=== PATIENT | male | born 1960 | race Two or more races ===

== ENCOUNTER 2019-08-15 14:54 | Inpatient (IN) | payer MEDICAID ==
[~2019-08-15] VITALS: Ht 170.2 cm; Wt 62.2 kg
--- NOTE | 2019-08-15 15:37 | NUR ---
ED Nurse Note: Patient was BIBA from [facility] c/o left knee pain; x ray showed inferior subluxation of the patella, taken on 08/14/19. Patient presented c/o pain 12/22, AAO x3, VSS at this time. Patient has donohue 16F, and colostomy bag.
--- NOTE | 2019-08-15 15:39 | Emergency Room Report ---
History of Present Illness General Chief Complaint: Pain Source: Patient, Medical Record Present Illness HPI Patient 59-year-old male brought in by basic ambulance for increased left-sided knee pain. Patient had no recent trauma noted. He had increased swelling to the left knee area since yesterday. Patient was brought in from [facility]. Patient had prior history of being wheelchair-bound and prior history of left lower extremity deformity. No known recent fever. Patient was given [place] 12/15/2024 prior to arrival at approximate 1 PM. He is nonambulatory. Allergies: Coded Allergies: No Known Allergies (Unverified , 08/15/19) COVID-19 Screening Contact w/high risk pt: No Recent Travel to affected area: No Experienced COVID-19 symptoms?: No COVID-19 Testing performed PAY STATION ATTENDANT: No Patient History Past Medical History: see triage record Past Surgical History: other Reviewed Nursing Documentation: PMH: Agreed; PSxH: Agreed Nursing Documentation-PMH Past Medical History: No History, Except For Hx Hypertension: Yes - Left lung atelectasis Hx COPD: Yes - Arthritis, generalized weakness Review of Systems All Other Systems: negative except mentioned in HPI Physical Exam Vital Signs Date Time Temp Pulse Resp B/P (MAP) Pulse Ox O2 Delivery O2 Flow Rate FiO2 08/15/19 15:09 97.5 67 15 112/68 (83) 95 Room Air Sp02 EP Interpretation: reviewed, normal General Appearance: normal inspection, well appearing, no apparent distress, alert, GCS 15 Head: atraumatic ENT: normal ENT inspection, hearing grossly normal, normal voice Neck: normal inspection, full range of motion, supple, no bony tend Respiratory: normal inspection, lungs clear, normal breath sounds, no respiratory distress, no retraction, no wheezing Cardiovascular #1: regular rate, rhythm, no edema Gastrointestinal: normal inspection, normal bowel sounds, non tender, soft, no guarding, no hernia Genitourinary: no CVA tenderness Musculoskeletal: normal inspection, back normal, normal range of motion Neurologic: alert, medical illustrator III-XII nml as tested, oriented x3, motor weakness, responsive, speech normal Psychiatric: normal inspection, judgement/insight normal, mood/affect normal Skin: other - significant decubitus ulcer with tunneling Medical Decision Making Diagnostic Impression: Primary Impression: Paraplegia Additional Impressions: Sacral decubitus ulcer Urinary tract infection ER Course Patient presented for left lower extremity pain. Differential diagnosis include was not limited to fracture, contusion, femur fracture among others. Because of complexity of patient's case laboratory tests and imaging studies were ordered. Patient is noted to have fever up to 103 degrees.X-ray imaging did not show any evidence of per radiology reading acute fracture. . Patient was given IV fluids as well as IV medications. Patient was discussed with Dr. Ojeda who agreed to have the patient admitted for management of urinary infection and acute febrile illness. Labs Test 08/15/19 16:01 08/15/19 18:45 08/15/19 18:50 White Blood Count 12.1 K/UL (4.8-10.8) Red Blood Count 4.15 M/UL (4.70-6.10) Hemoglobin 10.1 G/DL (14.2-18.0) Hematocrit 34.6 % (42.0-52.0) Mean Corpuscular Volume 83 FL (80-99) Mean Corpuscular Hemoglobin 24.2 PG (27.0-31.0) Mean Corpuscular Hemoglobin Concent 29.0 G/DL (32.0-36.0) Red Cell Distribution Width 17.6 % (11.6-14.8) Platelet Count 552 K/UL (150-450) Mean Platelet Volume 5.2 FL (6.5-10.1) Neutrophils (%) (Auto) 73.2 % (45.0-75.0) Lymphocytes (%) (Auto) 17.4 % (20.0-45.0) Monocytes (%) (Auto) 7.9 % (1.0-10.0) Eosinophils (%) (Auto) 0.1 % (0.0-3.0) Basophils (%) (Auto) 1.4 % (0.0-2.0) Sodium Level 135 MMOL/L (136-145) Potassium Level 4.1 MMOL/L (3.5-5.1) Chloride Level 94 MMOL/L (98-107) Carbon Dioxide Level 27 MMOL/L (21-32) Anion Gap 14 mmol/L (5-15) Blood Urea Nitrogen 12 mg/dL (7-18) Creatinine 0.9 MG/DL (0.55-1.30) Estimat Glomerular Filtration Rate > 60 mL/min (>60) Glucose Level 113 MG/DL (74-106) Calcium Level 9.5 MG/DL (8.5-10.1) Total Bilirubin 0.4 MG/DL (0.2-1.0) Aspartate Amino Transf (AST/SGOT) 15 U/L (15-37) Alanine Aminotransferase (ALT/SGPT) 14 U/L (12-78) Alkaline Phosphatase 249 U/L (46-116) Total Protein 9.5 G/DL (6.4-8.2) Albumin 2.6 G/DL (3.4-5.0) Globulin 6.9 g/dL Albumin/Globulin Ratio 0.4 (1.0-2.7) Lactic Acid Level 1.30 mmol/L (0.4-2.0) Urine Color Yellow Urine Appearance Slightly cloudy Urine pH 5 (4.5-8.0) Urine Specific [place] 1.025 (1.005-1.035) Urine Protein 3+ (NEGATIVE) Urine Glucose (UA) Negative (NEGATIVE) Urine Ketones 4+ (NEGATIVE) Urine Blood 5+ (NEGATIVE) Urine Nitrite Positive (NEGATIVE) Urine Bilirubin Negative (NEGATIVE) Urine Urobilinogen 1 MG/DL (0.0-1.0) Urine Leukocyte Esterase 3+ (NEGATIVE) Urine RBC 5-10 /HPF (0 - 0) Urine WBC Tntc /HPF (0 - 0) Urine Squamous Epithelial Cells None /LPF (NONE/OCC) Urine Bacteria Many /HPF (NONE) Last Vital Signs Date Time Temp Pulse Resp B/P (MAP) Pulse Ox O2 Delivery O2 Flow Rate FiO2 08/15/19 15:09 97.5 67 15 112/68 (83) 95 Room Air Status: unchanged Disposition: ADMITTED INPATIENT Condition: Serious Alban Conteh MD Aug 15, 2019 15:39
[2019-08-15] MEDS ORDERED: Morphine Sulfate 4mg/ml Inj (IV USE ONLY) IVP ONE (15:45)
[2019-08-15 16:11] VITALS: BP 112/68
[2019-08-15] MEDS ORDERED: LORazepam Inj 2mg/ml 1ml ONE (16:24)
[2019-08-15 16:25] LABS: BASOPHILS % (AUTO) 1.4 % (0.0-2.0); EOSINOPHILS % (AUTO) 0.1 % (0.0-3.0); HEMATOCRIT 34.6 % (42.0-52.0); HEMOGLOBIN 10.1 G/DL (14.2-18.0); LYMPHOCYTES % (AUTO) 17.4 % (20.0-45.0); MEAN CORPUSCULAR VOLUME 83 FL (80-99); MONOCYTES % (AUTO) 7.9 % (1.0-10.0); NEUTROPHILS % (AUTO) 73.2 % (45.0-75.0); PLATELET COUNT 552 K/UL (150-450); RED BLOOD COUNT 4.15 M/UL (4.70-6.10); RED CELL DISTRIBUTION WIDTH 17.6 % (11.6-14.8); WHITE BLOOD COUNT 12.1 K/UL (4.8-10.8)
[2019-08-15] MEDS ORDERED: LORazepam Inj 2mg/ml 1ml IV ONE (16:30)
--- NOTE | 2019-08-15 16:55 | Diagnostic Imaging Report ---
EXAM: X-RAY XRAY Femur 2v L CLINICAL HISTORY: Leg pain. COMPARISON: None FINDINGS: Total of 2 views of the femur were obtained. There is an old amputation defect across the mid femoral shaft. The mid to distal femur is unremarkable with normal articulation at the knee. The proximal femur including the femoral head is not visualized likely resected. There is deformity of the left hip/acetabulum likely posttraumatic. Adjacent heterotopic ossification noted. Surrounding soft tissue is normal. 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 PROBABLE OLD POSTTRAUMATIC DEFORMITY OF THE LEFT ACETABULUM WITH ADJACENT HETEROTOPIC OSSIFICATION
--- NOTE | 2019-08-15 16:55 | Diagnostic Imaging Report ---
Procedure: XRAY Chest 1v Reason for study: Chest pain Comparison films: None. FINDINGS: A single one view chest is obtained. Vascularity is normal. The lung hess are clear bilaterally. Cardiac and mediastinal silhouette are within normal limits. CP angles are sharp. The bony thorax appear unremarkable. IMPRESSION: NO ACUTE CARDIOPULMONARY DISEASE.
[2019-08-15 16:59] LABS: ANION GAP 14 mmol/L (5-15); BLOOD UREA NITROGEN 12 mg/dL (7-18); CALCIUM 9.5 MG/DL (8.5-10.1); CARBON DIOXIDE 27 MMOL/L (21-32); CHLORIDE 94 MMOL/L (98-107); CREATININE 0.9 MG/DL (0.55-1.30); POTASSIUM 4.1 MMOL/L (3.5-5.1); SODIUM 135 MMOL/L (136-145)
[2019-08-15 17:03] LABS: ALANINE AMINOTRANSFERASE 14 U/L (12-78); ALBUMIN 2.6 G/DL (3.4-5.0); ALBUMIN/GLOBULIN RATIO 0.4 (1.0-2.7); ALKALINE PHOSPHATASE 249 U/L (46-116); ASPARTATE AMINO TRANSFERASE 15 U/L (15-37); BILIRUBIN,TOTAL 0.4 MG/DL (0.2-1.0)
[2019-08-15] MEDS ORDERED: Acetaminophen 650 MG SUPP RECTAL ONE (18:15)
--- NOTE | 2019-08-15 18:16 | NUR ---
ED Nurse Note: ERMD aware stoma is protuding nd rectal temp 103.9F.
[2019-08-15] MEDS ORDERED: KLONOPIN0.5 MG ORAL (18:33)
[2019-08-15] MEDS ORDERED: DOCUSATE SODIU100 MG ORAL (18:33)
[2019-08-15] MEDS ORDERED: ACETAMINOPHEN325 M1 ORAL (18:33)
[2019-08-15] MEDS ORDERED: MIDODRINE HCL10 MG ORAL (18:34)
[2019-08-15] MEDS ORDERED: TRAMADOL HCL50 MG ORAL (18:34)
[2019-08-15] MEDS ORDERED: NORCO 10-325 T1 EACH ORAL (18:34)
--- NOTE | 2019-08-15 18:56 | NUR ---
ED Nurse Note: Lactic, blood cultures, COVID, urine sent to lab.
[2019-08-15 19:36] LABS: APPEARANCE,URINE SLIGHTLY CLOUDY; BILIRUBIN, URINE NEGATIVE (NEGATIVE); GLUCOSE, URINE (UA) NEGATIVE (NEGATIVE); KETONES,URINE 4+ (NEGATIVE); LEUKOCYTE ESTERASE ,URINE 3+ (NEGATIVE); NITRITE,URINE POSITIVE (NEGATIVE); PH,URINE 5 (4.5-8.0); PROTEIN,URINE 3+ (NEGATIVE); UROBILINOGEN,URINE 1 MG/DL (0.0-1.0)
[2019-08-15 19:37] LABS: COLOR,URINE YELLOW
[2019-08-15] MEDS ORDERED: cefTRIAXone 1 GM in NS 55 ML IVPB ONE (20:15)
--- NOTE | 2019-08-15 20:20 | NUR ---
ED Nurse Note: since patient puled out his IV line, a new IV line was established on his right forearm 20 ga.
--- NOTE | 2019-08-15 20:30 | NUR ---
ED Nurse Note: Patient was admited to [facility] due to left knee, and left hip pain 10/10. Patient was transfered to the unit via gurney, with all belongings. Patient has unstagable preassure ulsers of his sacral area, all pictures were taken, and uploaded in to the computer. Patient AAO x1, VSS at this time.
[2019-08-15 20:35] VITALS: BP 110/76
--- NOTE | 2019-08-15 20:40 | NUR ---
NURSE NOTES: Received patient from ED via gurney. Extremely agitated, in pain, screaming, combative. Transferred patient to hospital bed via 4 RN assist. IV access intact. VSS.
[2019-08-15] MEDS ORDERED: Haloperidol Decanoate (Long Acting) 50mg Inj IM ONE (21:45)
[2019-08-15] MEDS ORDERED: Hydromorphone 0.5mg/0.5ml inj IVP PRN (21:45)
[2019-08-15] MEDS ORDERED: Haloperidol 5mg/ml Inj IM SCH (21:49)
[2019-08-15] MEDS: HYDROmorphone 1mg/ml Carpuject IVP PRN (21:51)
--- NOTE | 2019-08-15 23:27 | NUR ---
NURSE NOTES: Received admission orders from Dr Ojeda, covering for Dr Marx. Orders received for bilateral soft wrist restraints as patient is combative, pulling out IV, trying to climb out of bed. Patient oriented to room, call light within reach, bed low and locked, bed alarm on.
[2019-08-16 00:23] VITALS: BP 117/77
[2019-08-16 04:00] VITALS: BP 113/75
[2019-08-16 04:30] LABS: BASOPHILS % (AUTO) 1.8 % (0.0-2.0); HEMATOCRIT 30.3 % (42.0-52.0); HEMOGLOBIN 9.8 G/DL (14.2-18.0); MEAN CORPUSCULAR VOLUME 76 FL (80-99); NEUTROPHILS % (AUTO) 77.2 % (45.0-75.0); PLATELET COUNT 435 K/UL (150-450); RED BLOOD COUNT 3.96 M/UL (4.70-6.10); RED CELL DISTRIBUTION WIDTH 15.5 % (11.6-14.8); WHITE BLOOD COUNT 14.6 K/UL (4.8-10.8)
[2019-08-16 04:53] LABS: ALANINE AMINOTRANSFERASE 15 U/L (12-78); ALBUMIN 2.5 G/DL (3.4-5.0); ALBUMIN/GLOBULIN RATIO 0.5 (1.0-2.7); ALKALINE PHOSPHATASE 217 U/L (46-116); ANION GAP 15 mmol/L (5-15); ASPARTATE AMINO TRANSFERASE 43 U/L (15-37); BILIRUBIN,TOTAL 0.5 MG/DL (0.2-1.0); BLOOD UREA NITROGEN 11 mg/dL (7-18); CALCIUM 8.7 MG/DL (8.5-10.1); CARBON DIOXIDE 23 MMOL/L (21-32); CHLORIDE 95 MMOL/L (98-107); CREATININE 0.6 MG/DL (0.55-1.30); PHOSPHORUS 2.7 MG/DL (2.5-4.9); POTASSIUM 3.9 MMOL/L (3.5-5.1); SODIUM 133 MMOL/L (136-145)
[2019-08-16] MEDS: HYDROmorphone 1mg/ml Carpuject IVP PRN ×3 (05:43→22:54)
--- NOTE | 2019-08-16 07:33 | NUR ---
NURSE NOTES: Patient awake, alert x2, confused; on room air, no sing of distress and shortness of breath; no sing of chest pain; IV Right For-Arm NS 100cc running; Left-Wrist flushes well; Marcos in place, drains yellow urine; Colostomy bag on Left Lower Quadrant; Bilateral Soft Wrist Restrain in place, warm to touch and good circulation; patient is combative, trying to get out of bed; wound culture wasn't collected by PM nurse; side rails up x2, breaks engaged, bed at lowest position, bed alarm on; call light within reach; will keep monitoring.
--- NOTE | 2019-08-16 07:42 | NUR ---
HAND-OFF: Report given to TANJA Olivas.
[2019-08-16 08:00] VITALS: BP 103/68
[2019-08-16] MEDS: Midodrine 10mg tab ORAL SCH ×3 (09:01→17:17)
[2019-08-16] MEDS: Heparin 5000 units/ml inj SUBQ SCH ×2 (09:02→20:24)
[2019-08-16] MEDS: Piperacillin/Tazobactam 3.375 GM in NS 110 ML IVPB SCH ×3 (09:03→23:55)
--- NOTE | 2019-08-16 09:21 | NUR ---
*-* INSURANCE *-* ALL AVAILABLE CLINICALS HAVE BEEN FAXED TO: [facility] REF# [id number] F: [phone]
--- NOTE | 2019-08-16 09:51 | NUR ---
CHARGE NURSE NOTE: Mg 1.6. office was called, message left.
--- NOTE | 2019-08-16 09:57 | Diagnostic Imaging Report ---
Indication: Reason For Exam: DVT Technique: Grayscale and duplex images of the left lower extremity veins Comparison: None Findings: On the left, grayscale and duplex images demonstrate no evidence of intraluminal thrombus. Normal phasic Doppler waveforms, demonstrating normal augmentation response and no evidence of valvular insufficiency. Greater saphenous vein(s) and tibial veins are patent. Normal compressibility. Impression: Negative for evidence of lower extremity deep venous thrombosis on the left
--- NOTE | 2019-08-16 10:55 | History and Physical ---
History of Present Illness General Date patient seen: Aug 16, 2019 Reason for Hospitalization: Pain Present Illness HPI 59-year-old male from [facility] sent to the emergency department for left knee pain. Upon arrival to the ER patient was found to be febrile above 101 and Lab are consistent with UTI. X-ray of the left leg revealed an old femoral amputation versus traumatic fracture without any acute changes. Clinically a leg appeared chronically to formed without evidence of infection. Patient was started and perky on antibiotics and will be admitted for further management. Allergies: Coded Allergies: No Known Allergies (Unverified , 08/15/19) COVID-19 Screening Contact w/high risk pt: No Recent Travel to affected area: No Experienced COVID-19 symptoms?: Yes COVID-19 symptoms experienced: Fever (T>100.4F or >38C) Medication History Scheduled Clonazepam* (Klonopin*), 0.5 MG ORAL TID, (Reported) Docusate Sodium* (Docusate Sodium*), 100 MG ORAL TWICE A DAY, (Reported) Midodrine* (Proamatine*), 10 MG ORAL THREE TIMES A DAY, (Reported) Scheduled PRN Acetaminophen* (Acetaminophen 325MG Tablet*), 650 MG ORAL Q6H PRN for For Pain, (Reported) Hydrocodone Bit/Acetaminophen 10-325* ([place] 10-325*), 1 TAB ORAL Q6H PRN for For Pain, (Reported) Tramadol Hcl* (Ultram*), 50 MG ORAL Q6H PRN for For Pain, (Reported) Patient History Healthcare decision maker N Resuscitation status Advanced Directive on File Review of Systems ROS Narrative Review of systems was limited due to altered mental status Physical Exam General Appearance: no apparent distress, alert, confused HEENT: normocephalic, atraumatic, PERRL, EOMI, supple, no JVD Neck: normal alignment Respiratory/Chest: lungs clear, no respiratory distress, no accessory muscle use Cardiovascular/Chest: normal rate, no gallop/murmur, no JVD Abdomen: non tender, soft, no organomegaly Extremities: other - Atrophic LLE Last 24 Hour Vital Signs Date Time Temp Pulse Resp B/P (MAP) Pulse Ox O2 Delivery O2 Flow Rate FiO2 08/16/19 09:00 Room Air 08/16/19 08:00 98.0 98 16 103/68 (80) 96 6/3/20 06:13 101.0 08/16/19 04:01 101.0 08/16/19 04:00 101.7 75 21 113/75 (88) 100 08/16/19 00:23 100.5 82 22 117/77 (90) 100 08/15/19 23:30 Room Air 08/15/19 20:35 101.2 79 22 110/76 (87) 99 08/15/19 20:30 100.6 15 112/68 95 Room Air 08/15/19 18:53 101.9 08/15/19 16:34 97.5 08/15/19 16:11 97.5 15 112/68 95 Room Air 08/15/19 15:09 97.5 67 15 112/68 (83) 95 Room Air Intake and Output 08/15/19 08/16/19 19:00 07:00 Intake Total 1 ml 950 ml Output Total 505 ml Balance 1 ml 445 ml Intake Oral 1 ml 250 ml IV Total 700 ml Output Urine Total 450 ml Other 55 ml Laboratory Tests Test 08/15/19 16:01 08/15/19 18:45 08/15/19 18:50 08/16/19 04:00 White Blood Count 12.1 K/UL (4.8-10.8) H 14.6 K/UL (4.8-10.8) H Red Blood Count 4.15 M/UL (4.70-6.10) L 3.96 M/UL (4.70-6.10) L Hemoglobin 10.1 G/DL (14.2-18.0) L 9.8 G/DL (14.2-18.0) L Hematocrit 34.6 % (42.0-52.0) L 30.3 % (42.0-52.0) L Mean Corpuscular Volume 83 FL (80-99) 76 FL (80-99) #L Mean Corpuscular Hemoglobin 24.2 PG (27.0-31.0) L 24.8 PG (27.0-31.0) L Mean Corpuscular Hemoglobin Concent 29.0 G/DL (32.0-36.0) L 32.5 G/DL (32.0-36.0) Red Cell Distribution Width 17.6 % (11.6-14.8) H 15.5 % (11.6-14.8) H Platelet Count 552 K/UL (150-450) H 435 K/UL (150-450) Mean Platelet Volume 5.2 FL (6.5-10.1) L 4.3 FL (6.5-10.1) L Neutrophils (%) (Auto) 73.2 % (45.0-75.0) 77.2 % (45.0-75.0) H Lymphocytes (%) (Auto) 17.4 % (20.0-45.0) L 11.0 % (20.0-45.0) L Monocytes (%) (Auto) 7.9 % (1.0-10.0) 10.0 % (1.0-10.0) Eosinophils (%) (Auto) 0.1 % (0.0-3.0) 0.0 % (0.0-3.0) Basophils (%) (Auto) 1.4 % (0.0-2.0) 1.8 % (0.0-2.0) Sodium Level 135 MMOL/L (136-145) L 133 MMOL/L (136-145) L Potassium Level 4.1 MMOL/L (3.5-5.1) 3.9 MMOL/L (3.5-5.1) Chloride Level 94 MMOL/L (98-107) L 95 MMOL/L (98-107) L Carbon Dioxide Level 27 MMOL/L (21-32) 23 MMOL/L (21-32) Anion Gap 14 mmol/L (5-15) 15 mmol/L (5-15) Blood Urea Nitrogen 12 mg/dL (7-18) 11 mg/dL (7-18) Creatinine 0.9 MG/DL (0.55-1.30) 0.6 MG/DL (0.55-1.30) Estimat Glomerular Filtration Rate > 60 mL/min (>60) > 60 mL/min (>60) Glucose Level 113 MG/DL (74-106) H 108 MG/DL (74-106) H Calcium Level 9.5 MG/DL (8.5-10.1) 8.7 MG/DL (8.5-10.1) Total Bilirubin 0.4 MG/DL (0.2-1.0) 0.5 MG/DL (0.2-1.0) Aspartate Amino Transf (AST/SGOT) 15 U/L (15-37) 43 U/L (15-37) H Alanine Aminotransferase (ALT/SGPT) 14 U/L (12-78) 15 U/L (12-78) Alkaline Phosphatase 249 U/L (46-116) H 217 U/L (46-116) H Total Protein 9.5 G/DL (6.4-8.2) H 7.9 G/DL (6.4-8.2) Albumin 2.6 G/DL (3.4-5.0) L 2.5 G/DL (3.4-5.0) L Globulin 6.9 g/dL 5.4 g/dL Albumin/Globulin Ratio 0.4 (1.0-2.7) L 0.5 (1.0-2.7) L Lactic Acid Level 1.30 mmol/L (0.4-2.0) Urine Color Yellow Urine Appearance Slightly cloudy Urine pH 5 (4.5-8.0) Urine Specific [place] 1.025 (1.005-1.035) Urine Protein 3+ (NEGATIVE) H Urine Glucose (UA) Negative (NEGATIVE) Urine Ketones 4+ (NEGATIVE) H Urine Blood 5+ (NEGATIVE) H Urine Nitrite Positive (NEGATIVE) H Urine Bilirubin Negative (NEGATIVE) Urine Urobilinogen 1 MG/DL (0.0-1.0) H Urine Leukocyte Esterase 3+ (NEGATIVE) H Urine RBC 5-10 /HPF (0 - 0) H Urine WBC Tntc /HPF (0 - 0) H Urine Squamous Epithelial Cells None /LPF (NONE/OCC) Urine Bacteria Many /HPF (NONE) H Phosphorus Level 2.7 MG/DL (2.5-4.9) Magnesium Level 1.6 MG/DL (1.8-2.4) L Microbiology Date/Time Source Procedure Growth Status 08/15/19 18:50 Urine,Clean Catch Urine Culture - Preliminary Resulted 08/15/19 18:50 Rectum Received Height (Feet): 5 Height (Inches): 7.00 Weight (Pounds): 139 Medications Current Medications Medications (Trade) Dose Ordered Sig/Mya Route PRN Reason Start Time Stop Time Status Last Admin Dose Admin Acetaminophen (Tylenol) 650 mg Q6H PRN ORAL Temp >100.5 08/16/19 00:45 09/15/19 00:44 08/16/19 03:31 Clonazepam (KlonoPIN) 0.5 mg TID ORAL 08/16/19 09:00 08/23/19 08:59 08/16/19 09:00 Heparin Sodium (Porcine) (Heparin 5000 units/ml) 5,000 units EVERY 12 HOURS SUBQ 08/16/19 09:00 09/30/19 08:59 08/16/19 09:02 Hydromorphone HCl (Dilaudid) 0.5 mg Q6H PRN IVP moderate pain 08/15/19 21:45 08/22/19 21:44 Hydromorphone HCl (Dilaudid) 1 mg EVERY 4 HOURS PRN IVP Severe Pain (Pain Scale 7-10) 08/16/19 10:30 08/22/19 21:44 UNV Magnesium Sulfate 100 ml @ 100 mls/hr Q1H IVPB 08/16/19 10:30 08/16/19 12:29 UNV Midodrine (Pro-Amatine) 10 mg THREE TIMES A DAY ORAL 08/16/19 09:00 11/14/19 08:59 08/16/19 09:01 Piperacillin Sod/ Tazobactam Sod 3.375 gm/Sodium Chloride 110 ml @ 27.5 mls/hr Q8H IVPB 08/16/19 08:00 08/23/19 07:59 08/16/19 09:03 Sodium Chloride 1,000 ml @ 100 mls/hr Q10H IV 08/15/19 21:45 09/14/19 21:44 08/16/19 09:03 Vancomycin HCl (Vanco pharmacy to dose) 1 ea DAILY PRN MISC Per rx protocol 08/16/19 08:00 09/15/19 07:59 Vancomycin HCl 1 gm/Dextrose 275 ml @ 183.708 mls/hr Q8H IVPB 08/16/19 12:00 08/21/19 11:59 Assessment/Plan Assessment/Plan: 59-year-old male with multiple medical problems admitted with sepsis due to urinary tract infection and AMS. #UTI #Sepsis due to a UTI (fever, leukocytosis) - admit to in pt - ID consult, Dr Freeman - c/w vanco & zosyn (08/15 - ) - follow cx - trend chem, cbc - probiotic - supportive care - IVF - c/w home midodrine #Hyponatremia #Hypomagnesemia - replete prn - hypovolemic - IVF - nephro consult, Dr Georges #Anemia, acute on chonic #Suspect OSMIN - suspect dilutional, no e/o active bleed - Fe Panel - trend cbc - transfuse for Hb < 7 #Left leg pain #Hx Left leg amputation #Paraplegia - XR LLE -> unremarkable - ctm - pain control #Sacral decubitus ulcer, POA - offloading per rn protocl q2h - surgery consult for wound mgt/debridement if necessary #Toxic metabolic encephalopathy - tx as above - delirium precautions FENPPX DVTPPX: SCD, HSQ GI PPX: na Fluids: mIVF x 2L Diet: regular Lines: PT/OT: deferred Code status: Full Dispo: SNF ([facility]) Reason for Continued Hospitalization: sepsis due to UTI 70 minutes spent on this encounter. Discussed with RN at bedside and consultants named above. 38 spent on counseling and care coordination. 17 min was spent on advanced care planning which included discussion of both acute and chronic medicall issues, code status, goals of care and advanced directives & POLST. POLST to be completed before discharge. In addition to the usual care above I spent additional time reviewing records in the EMR including physician documentation, nursing documentation, laboratory results, imaging and other clinical documentation. Time for this activity started at 9pm and ended at 945pm. Time of note may not reflect time patient was seen. Rajesh Solis MD Aug 16, 2019 10:55
--- NOTE | 2019-08-16 11:04 | NUR ---
CASE MANAGEMENT:INITIAL REVIEW 59 YR OLD MALE BIBA FROM [facility] 08/15/19 CC;PAIN SI;LEFT PROXIMAL FEMUR FRACTURE 101.9 79 15 112/68 95% ON RA WBC 12.1 NA 135 CL 94 ALK PHOS 249 ALB 2.6 UA+ PROTEIN, KETONES, BLOOD, NITRITE, UROBILI, LEUKOCYTE, RBC, WBC, BACTERIA FEMUR X-RAY ~ APPARENT OLD AMPUTATION DEFECT OF THE PROXIMAL LEFT FEMUR FROM FEMORAL HEAD TO THE MID SHAFT. PROBABLE OLD POSTTRAUMATIC DEFORMITY OF THE LEFT ACETABULUM WITH ADJACENT HETEROTOPIC OSSIFICATION. CXR ~ NO ACUTE CARDIOPULMONARY DISEASE VENOUS DUPLEX ~ Negative for evidence of lower extremity deep venous thrombosis on the left IS;MORPHINE IV ONCE ATIVAN IV ONCE IVF NS APAP RECTAL ONCE ROCEPHIN IV ONCE ADMITTED TO MED SURG @ 2058 ON 08/15/19 MED SURG STATUS DCP;FROM [facility] CASE MANAGEMENT:REVIEW (CONCURRENT REVIEW) 08/16/19 SI;SEPSIS. UTI. HYPONATREMIA. SACRAL DECUB. LLE PAIN. 101.7 98 22 103/68 96% ON RA WBC 14.6 H/H 9.8/30.3 NA 133 CL 95 MG 1.6 AST 43 ALK PHOS 217 ALB 2.5 IS;VANCOMYCIN IV Q8 HRS ZOSYN IV Q8 HRS IVF NS @ 100 ML/HR MAG SULFATE IV ONCE KLONOPIN PO TID HEPARIN SUBQ Q12 HRS MIDODRINE PO TID MED SURG STATUS DCP; FROM [facility]
[2019-08-16 12:00] VITALS: BP 114/61
--- NOTE | 2019-08-16 12:53 | Consultation ---
History of Present Illness General Chief Complaint: Pain Present Illness HPI 59-year-old male from [facility] sent to the emergency department for left knee pain. Upon arrival to the ER patient was found to be febrile above 101 and Lab are consistent with UTI. X-ray of the left leg revealed an old femoral amputation versus traumatic fracture without any acute changes. Clinically a leg appeared chronically to formed without evidence of infection. Patient was started and perky on antibiotics and will be admitted for further management. Allergies: Coded Allergies: No Known Allergies (Unverified , 08/15/19) Medication History Scheduled Clonazepam* (Klonopin*), 0.5 MG ORAL TID, (Reported) Docusate Sodium* (Docusate Sodium*), 100 MG ORAL TWICE A DAY, (Reported) Midodrine* (Proamatine*), 10 MG ORAL THREE TIMES A DAY, (Reported) Scheduled PRN Acetaminophen* (Acetaminophen 325MG Tablet*), 650 MG ORAL Q6H PRN for For Pain, (Reported) Hydrocodone Bit/Acetaminophen 10-325* ([place] 10-325*), 1 TAB ORAL Q6H PRN for For Pain, (Reported) Tramadol Hcl* (Ultram*), 50 MG ORAL Q6H PRN for For Pain, (Reported) Patient History Healthcare decision maker N Resuscitation status Advanced Directive on File Review of Systems All Other Systems: negative except mentioned in HPI Physical Exam General Appearance: WD/WN, no apparent distress Lines, tubes and drains: peripheral HEENT: normocephalic, atraumatic Neck: non-tender, normal alignment Respiratory/Chest: chest wall non-tender, lungs clear Cardiovascular/Chest: normal peripheral pulses, normal rate, regular rhythm Abdomen: normal bowel sounds, non tender, soft Extremities: other - + Left leg abnormality Neurologic: alert Last 24 Hour Vital Signs Date Time Temp Pulse Resp B/P (MAP) Pulse Ox O2 Delivery O2 Flow Rate FiO2 08/16/19 12:00 101.7 63 17 114/61 (78) 97 08/16/19 11:35 97.7 08/16/19 09:00 Room Air 08/16/19 08:00 98.0 98 16 103/68 (80) 96 08/16/19 06:13 101.0 08/16/19 04:00 101.7 75 21 113/75 (88) 100 08/16/19 00:23 100.5 82 22 117/77 (90) 100 08/15/19 23:30 Room Air 08/15/19 20:35 101.2 79 22 110/76 (87) 99 08/15/19 20:30 100.6 15 112/68 95 Room Air 08/15/19 18:53 101.9 08/15/19 16:34 97.5 08/15/19 16:11 97.5 15 112/68 95 Room Air 08/15/19 15:09 97.5 67 15 112/68 (83) 95 Room Air Intake and Output 08/15/19 08/16/19 19:00 07:00 Intake Total 1 ml 1050 ml Output Total 505 ml Balance 1 ml 545 ml Intake Oral 1 ml 250 ml IV Total 800 ml Output Urine Total 450 ml Other 55 ml Laboratory Tests Test 08/15/19 16:01 08/15/19 18:45 08/15/19 18:50 08/16/19 04:00 White Blood Count 12.1 K/UL (4.8-10.8) H 14.6 K/UL (4.8-10.8) H Red Blood Count 4.15 M/UL (4.70-6.10) L 3.96 M/UL (4.70-6.10) L Hemoglobin 10.1 G/DL (14.2-18.0) L 9.8 G/DL (14.2-18.0) L Hematocrit 34.6 % (42.0-52.0) L 30.3 % (42.0-52.0) L Mean Corpuscular Volume 83 FL (80-99) 76 FL (80-99) #L Mean Corpuscular Hemoglobin 24.2 PG (27.0-31.0) L 24.8 PG (27.0-31.0) L Mean Corpuscular Hemoglobin Concent 29.0 G/DL (32.0-36.0) L 32.5 G/DL (32.0-36.0) Red Cell Distribution Width 17.6 % (11.6-14.8) H 15.5 % (11.6-14.8) H Platelet Count 552 K/UL (150-450) H 435 K/UL (150-450) Mean Platelet Volume 5.2 FL (6.5-10.1) L 4.3 FL (6.5-10.1) L Neutrophils (%) (Auto) 73.2 % (45.0-75.0) 77.2 % (45.0-75.0) H Lymphocytes (%) (Auto) 17.4 % (20.0-45.0) L 11.0 % (20.0-45.0) L Monocytes (%) (Auto) 7.9 % (1.0-10.0) 10.0 % (1.0-10.0) Eosinophils (%) (Auto) 0.1 % (0.0-3.0) 0.0 % (0.0-3.0) Basophils (%) (Auto) 1.4 % (0.0-2.0) 1.8 % (0.0-2.0) Sodium Level 135 MMOL/L (136-145) L 133 MMOL/L (136-145) L Potassium Level 4.1 MMOL/L (3.5-5.1) 3.9 MMOL/L (3.5-5.1) Chloride Level 94 MMOL/L (98-107) L 95 MMOL/L (98-107) L Carbon Dioxide Level 27 MMOL/L (21-32) 23 MMOL/L (21-32) Anion Gap 14 mmol/L (5-15) 15 mmol/L (5-15) Blood Urea Nitrogen 12 mg/dL (7-18) 11 mg/dL (7-18) Creatinine 0.9 MG/DL (0.55-1.30) 0.6 MG/DL (0.55-1.30) Estimat Glomerular Filtration Rate > 60 mL/min (>60) > 60 mL/min (>60) Glucose Level 113 MG/DL (74-106) H 108 MG/DL (74-106) H Calcium Level 9.5 MG/DL (8.5-10.1) 8.7 MG/DL (8.5-10.1) Total Bilirubin 0.4 MG/DL (0.2-1.0) 0.5 MG/DL (0.2-1.0) Aspartate Amino Transf (AST/SGOT) 15 U/L (15-37) 43 U/L (15-37) H Alanine Aminotransferase (ALT/SGPT) 14 U/L (12-78) 15 U/L (12-78) Alkaline Phosphatase 249 U/L (46-116) H 217 U/L (46-116) H Total Protein 9.5 G/DL (6.4-8.2) H 7.9 G/DL (6.4-8.2) Albumin 2.6 G/DL (3.4-5.0) L 2.5 G/DL (3.4-5.0) L Globulin 6.9 g/dL 5.4 g/dL Albumin/Globulin Ratio 0.4 (1.0-2.7) L 0.5 (1.0-2.7) L Lactic Acid Level 1.30 mmol/L (0.4-2.0) Urine Color Yellow Urine Appearance Slightly cloudy Urine pH 5 (4.5-8.0) Urine Specific [place] 1.025 (1.005-1.035) Urine Protein 3+ (NEGATIVE) H Urine Glucose (UA) Negative (NEGATIVE) Urine Ketones 4+ (NEGATIVE) H Urine Blood 5+ (NEGATIVE) H Urine Nitrite Positive (NEGATIVE) H Urine Bilirubin Negative (NEGATIVE) Urine Urobilinogen 1 MG/DL (0.0-1.0) H Urine Leukocyte Esterase 3+ (NEGATIVE) H Urine RBC 5-10 /HPF (0 - 0) H Urine WBC Tntc /HPF (0 - 0) H Urine Squamous Epithelial Cells None /LPF (NONE/OCC) Urine Bacteria Many /HPF (NONE) H Phosphorus Level 2.7 MG/DL (2.5-4.9) Magnesium Level 1.6 MG/DL (1.8-2.4) L Microbiology Date/Time Source Procedure Growth Status 08/15/19 18:50 Urine,Clean Catch Urine Culture - Preliminary Resulted 08/15/19 18:50 Rectum Received Height (Feet): 5 Height (Inches): 7.00 Weight (Pounds): 139 Medications Current Medications Medications (Trade) Dose Ordered Sig/Mya Route PRN Reason Start Time Stop Time Status Last Admin Dose Admin Acetaminophen (Tylenol) 650 mg Q6H PRN ORAL Temp >100.5 08/16/19 00:45 09/15/19 00:44 08/16/19 11:05 Clonazepam (KlonoPIN) 0.5 mg TID ORAL 08/16/19 09:00 08/23/19 08:59 08/16/19 09:00 Heparin Sodium (Porcine) (Heparin 5000 units/ml) 5,000 units EVERY 12 HOURS SUBQ 08/16/19 09:00 09/30/19 08:59 08/16/19 09:02 Hydromorphone HCl (Dilaudid) 0.5 mg Q6H PRN IVP moderate pain 08/15/19 21:45 08/22/19 21:44 Hydromorphone HCl (Dilaudid) 1 mg Q4H PRN IVP Severe Pain (Pain Scale 7-10) 08/16/19 10:30 08/23/19 10:29 Magnesium Sulfate 100 ml @ 100 mls/hr Q1H IVPB 08/16/19 11:00 08/16/19 12:59 08/16/19 12:13 Midodrine (Pro-Amatine) 10 mg THREE TIMES A DAY ORAL 08/16/19 09:00 11/14/19 08:59 08/16/19 09:01 Piperacillin Sod/ Tazobactam Sod 3.375 gm/Sodium Chloride 110 ml @ 27.5 mls/hr Q8H IVPB 08/16/19 08:00 08/23/19 07:59 08/16/19 09:03 Sodium Chloride 1,000 ml @ 100 mls/hr Q10H IV 08/15/19 21:45 09/14/19 21:44 08/16/19 09:03 Sodium Chloride 1,000 ml @ 100 mls/hr Q10H IV 08/16/19 12:00 08/17/19 07:59 08/16/19 12:14 Vancomycin HCl (Vanco pharmacy to dose) 1 ea DAILY PRN MISC Per rx protocol 08/16/19 08:00 09/15/19 07:59 Vancomycin HCl 1 gm/Dextrose 275 ml @ 183.708 mls/hr Q8H IVPB 08/16/19 12:00 08/21/19 11:59 Assessment/Plan Diagnosis [place] I: #sepsis due to UTI #Hyponatremia #hypomagnesemia #history for femur amputation #Left leg pain #Hx Left leg amputation #Paraplegia #Sacral decub ulcer #anemia - continue NS at 100cchr - replete mag - antibiotics per D - follow urine cx - monitor mag, phos, BMP daily - surgery eval - pain control - monitor WBC - monitor UOP - avoid nephrotoxins Time spent 70 minutes, greater than 50% on care coordination and counseling Sienna Georges M.D. Aug 16, 2019 12:53
[2019-08-16] MEDS: Vancomycin 1gm/D5W 275ml IVPB SCH ×4 (13:14→20:14)
[2019-08-16 16:00] VITALS: BP 112/64
--- NOTE | 2019-08-16 16:41 | NUR ---
NURSE NOTES: Patient's matter changed to P200 mattress;
--- NOTE | 2019-08-16 18:40 | NUR ---
NURSE NOTES: Wound culture collected from Sacral and R-Ischemia;
--- NOTE | 2019-08-16 18:45 | Infectious Diseases Prog Note ---
Assessment/Plan Assessment/Plan Full consul dictated: A) 1) uti, pyelonephritis, sepsis, sacral wound infection, leukocytosis, fevers 2) pmh noted 3) allergies - nkda P) 1) zosyn and vancomycin 2) check cultures, labs and chest x-ray 3) surgery recs on wound management 4) thank you Subjective Allergies: Coded Allergies: No Known Allergies (Unverified , 08/15/19) Objective Vital Signs Last 24 Hour Vital Signs Date Time Temp Pulse Resp B/P (MAP) Pulse Ox O2 Delivery O2 Flow Rate FiO2 08/16/19 16:00 97.7 58 18 112/64 (80) 97 08/16/19 12:00 101.7 63 17 114/61 (78) 97 08/16/19 11:35 97.7 08/16/19 09:00 Room Air 08/16/19 08:00 98.0 98 16 103/68 (80) 96 08/16/19 06:13 101.0 08/16/19 04:00 101.7 75 21 113/75 (88) 100 08/16/19 00:23 100.5 82 22 117/77 (90) 100 08/15/19 23:30 Room Air 08/15/19 20:35 101.2 79 22 110/76 (87) 99 08/15/19 20:30 100.6 15 112/68 95 Room Air 08/15/19 18:53 101.9 Height (Feet): 5 Height (Inches): 7.00 Weight (Pounds): 139 Microbiology Date/Time Source Procedure Growth Status 08/15/19 18:50 Urine,Clean Catch Urine Culture - Preliminary Resulted 08/15/19 18:50 Rectum Received Laboratory Tests Test 08/15/19 18:45 08/15/19 18:50 08/16/19 04:00 Lactic Acid Level 1.30 mmol/L (0.4-2.0) Urine Color Yellow Urine Appearance Slightly cloudy Urine pH 5 (4.5-8.0) Urine Specific [place] 1.025 (1.005-1.035) Urine Protein 3+ (NEGATIVE) H Urine Glucose (UA) Negative (NEGATIVE) Urine Ketones 4+ (NEGATIVE) H Urine Blood 5+ (NEGATIVE) H Urine Nitrite Positive (NEGATIVE) H Urine Bilirubin Negative (NEGATIVE) Urine Urobilinogen 1 MG/DL (0.0-1.0) H Urine Leukocyte Esterase 3+ (NEGATIVE) H Urine RBC 5-10 /HPF (0 - 0) H Urine WBC Tntc /HPF (0 - 0) H Urine Squamous Epithelial Cells None /LPF (NONE/OCC) Urine Bacteria Many /HPF (NONE) H White Blood Count 14.6 K/UL (4.8-10.8) H Red Blood Count 3.96 M/UL (4.70-6.10) L Hemoglobin 9.8 G/DL (14.2-18.0) L Hematocrit 30.3 % (42.0-52.0) L Mean Corpuscular Volume 76 FL (80-99) #L Mean Corpuscular Hemoglobin 24.8 PG (27.0-31.0) L Mean Corpuscular Hemoglobin Concent 32.5 G/DL (32.0-36.0) Red Cell Distribution Width 15.5 % (11.6-14.8) H Platelet Count 435 K/UL (150-450) Mean Platelet Volume 4.3 FL (6.5-10.1) L Neutrophils (%) (Auto) 77.2 % (45.0-75.0) H Lymphocytes (%) (Auto) 11.0 % (20.0-45.0) L Monocytes (%) (Auto) 10.0 % (1.0-10.0) Eosinophils (%) (Auto) 0.0 % (0.0-3.0) Basophils (%) (Auto) 1.8 % (0.0-2.0) Sodium Level 133 MMOL/L (136-145) L Potassium Level 3.9 MMOL/L (3.5-5.1) Chloride Level 95 MMOL/L (98-107) L Carbon Dioxide Level 23 MMOL/L (21-32) Anion Gap 15 mmol/L (5-15) Blood Urea Nitrogen 11 mg/dL (7-18) Creatinine 0.6 MG/DL (0.55-1.30) Estimat Glomerular Filtration Rate > 60 mL/min (>60) Glucose Level 108 MG/DL (74-106) H Calcium Level 8.7 MG/DL (8.5-10.1) Phosphorus Level 2.7 MG/DL (2.5-4.9) Magnesium Level 1.6 MG/DL (1.8-2.4) L Total Bilirubin 0.5 MG/DL (0.2-1.0) Aspartate Amino Transf (AST/SGOT) 43 U/L (15-37) H Alanine Aminotransferase (ALT/SGPT) 15 U/L (12-78) Alkaline Phosphatase 217 U/L (46-116) H Total Protein 7.9 G/DL (6.4-8.2) Albumin 2.5 G/DL (3.4-5.0) L Globulin 5.4 g/dL Albumin/Globulin Ratio 0.5 (1.0-2.7) L Current Medications Medications (Trade) Dose Ordered Sig/Mya Route PRN Reason Start Time Stop Time Status Last Admin Dose Admin Acetaminophen (Tylenol) 650 mg Q6H PRN ORAL Temp >100.5 08/16/19 00:45 09/15/19 00:44 08/16/19 11:05 Clonazepam (KlonoPIN) 0.5 mg TID ORAL 08/16/19 09:00 08/23/19 08:59 08/16/19 17:17 Heparin Sodium (Porcine) (Heparin 5000 units/ml) 5,000 units EVERY 12 HOURS SUBQ 08/16/19 09:00 09/30/19 08:59 08/16/19 09:02 Hydromorphone HCl (Dilaudid) 0.5 mg Q6H PRN IVP moderate pain 08/15/19 21:45 08/22/19 21:44 Hydromorphone HCl (Dilaudid) 1 mg Q4H PRN IVP Severe Pain (Pain Scale 7-10) 08/16/19 10:30 08/23/19 10:29 08/16/19 18:26 Midodrine (Pro-Amatine) 10 mg THREE TIMES A DAY ORAL 08/16/19 09:00 11/14/19 08:59 08/16/19 17:17 Piperacillin Sod/ Tazobactam Sod 3.375 gm/Sodium Chloride 110 ml @ 27.5 mls/hr Q8H IVPB 08/16/19 08:00 08/23/19 07:59 08/16/19 17:18 Sodium Chloride 1,000 ml @ 100 mls/hr Q10H IV 08/15/19 21:45 09/14/19 21:44 08/16/19 17:17 Sodium Chloride 1,000 ml @ 100 mls/hr Q10H IV 08/16/19 12:00 08/17/19 07:59 08/16/19 12:14 Vancomycin HCl (Vanco pharmacy to dose) 1 ea DAILY PRN MISC Per rx protocol 08/16/19 08:00 09/15/19 07:59 Vancomycin HCl 1 gm/Dextrose 275 ml @ 183.708 mls/hr Q8H IVPB 08/16/19 12:00 08/21/19 11:59 08/16/19 13:14 Sharif Painting MD Aug 16, 2019 18:45
--- NOTE | 2019-08-16 19:04 | NUR ---
NURSE NOTES: Wound care provided by wound care nurse and primary nurse;
--- NOTE | 2019-08-16 19:06 | NUR ---
NURSE NOTES:WOUND CARE NOTES:Pt presented on admission with multiple Pressure Injuries, Bilat foot drop. Historical scar noted to L Hip Large Full Thickness Pressure Injury Buttocks with undermining and tunneling. Wound has irregular borders extends from Sacrum to L ischium and base of Scrotum,laterally from Outer R to Outer L gluteus.(L)18.9cm x (W)18.5cm x (D)3.7cm, undermining clockwise 10-3 by 5.9cm @3o'clock,Tunneling clockwise @6o'clock by 2.7cm.Scattered Biofilm with [place] granulation at base of wound ,bone is palpable in tunneled and undermined areas. At distal base of wound, at scrotum is an area of slough-size of Quarter. Small amt non-odorous serous exudate.Periwound is pink with scattered brownish skin tone.( Full thickness Pressure injury R Ischium(L)9.5cm x (W)9.7cm x (D)4.2cm, Tunneling clockwise into perineum at 7o'clock by 5.3cm. Base of wound has scattered slough. Bone is palpable . Small amt seropurulent exudate. Mild odor which resolved post cleansing of wound.Erythema noted along edges. Additional area of slough noted periwound along borders clockwise @3-4o'clock. Non-Blanching erythema noted to Protruding bony prominence L Hip. Dry, loosening eschar lateral L tibia. (L)1.1cm x (W)0.4cm.[place] epithelial along borders. Stable dry, brown eschar noted to medial L tibia(L)4.3cm x (W)1cm. Stable dry eschar noted to Plantar L Heel. (L)4.5cm x (W)2cm. Periwound is boggy but blanchable.Historical scar alson noted periwound. Full thickness pressure injury Plantar R Heel (L)1.2cm x (W)2.5cm x (D)0.2cm. 80% pink granulation,20% slough at base of wound. Edges are macerated. Small amt non-odorous serous exudate. Periwound is boggy but blanchable. Tx.Plan: Cleanse wound Buttocks with Saline. Loosely Pack wound including undermined areas with Hydrogel impregnated Kerlix.Apply Moisture Barrier Paste along borders. Cover with ABD Pads and secure with Tegaderm Daily and prn. Cleanse R Ischial Wound with Saline. Loosely pack with Hydrogel Impregnated Kerlix. Apply Moisture Barrier Periwound. Cover with ABD Pad and secure with Tegaderm Daily and prn. Apply Cavilon Skin Barrier to L Hip Bony Protrusion (Do Not Rub/Massage area). Cover with Optifoam drsg. Change every 3 days and prn. Apply Betadine to Medial and lateral L Tibial wounds. Cover with Optifoam drsg every 3 days and prn. Apply Betadine to Plantar L Heel wound. Cover with Optifoam drsg. Change every 3 days and prn. Apply Betadine to Plantar R heel wound. Cover with Optifoam drsg every 3 days and prn. Reposition at least every 2hours or as tolerated. Place pillow between knees. Off-Load Heels with Pillow. APM/SUMI Mattress overlay.
--- NOTE | 2019-08-16 19:20 | NUR ---
NURSE NOTES: Received report from samanta guido.patient on bed, awake, verbally responsive. calm. denies any pain or discomfort. room air. no sob. with iv line on right forearm running ns at 100 and left wrist running zosyn. with donohue catheter, draining well. noted with left lower quadrant colostomy. per kasandra, they did the treatments on the wounds and she drained the colostomy bag". with bilateral soft wrist restraints. no injury noted. reiterated to call and ask for assistance. call light and light button within easy reach. bed locked and in lowest position. bed alarm on. will continue plan of care.
[2019-08-16 20:00] VITALS: BP 100/60
--- NOTE | 2019-08-16 21:00 | Consultation ---
History of Present Illness General Date patient seen: Aug 16, 2019 Reason for Hospitalization: Pain Present Illness HPI This is a 59-year-old male who presents [facility] for left knee pain. States been ongoing for some time and feels uncomfortable. Surgery called to evaluate and assist with care. Patient seen, patient evaluated, chart reviewed. Imaging reviewed abnormal fracture left side femur . Labs noted. Multiple skin concerns. Potential psych history? poor historian Allergies: Coded Allergies: No Known Allergies (Unverified , 08/15/19) COVID-19 Screening Contact w/high risk pt: No Recent Travel to affected area: No Experienced COVID-19 symptoms?: Yes COVID-19 symptoms experienced: Fever (T>100.4F or >38C) Medication History Scheduled Clonazepam* (Klonopin*), 0.5 MG ORAL TID, (Reported) Docusate Sodium* (Docusate Sodium*), 100 MG ORAL TWICE A DAY, (Reported) Midodrine* (Proamatine*), 10 MG ORAL THREE TIMES A DAY, (Reported) Scheduled PRN Acetaminophen* (Acetaminophen 325MG Tablet*), 650 MG ORAL Q6H PRN for For Pain, (Reported) Hydrocodone Bit/Acetaminophen 10-325* ([place] 10-325*), 1 TAB ORAL Q6H PRN for For Pain, (Reported) Tramadol Hcl* (Ultram*), 50 MG ORAL Q6H PRN for For Pain, (Reported) Patient History Limited by: medical condition History Provided By: Medical Record, PMD Healthcare decision maker N Resuscitation status Advanced Directive on File Past Medical/Surgical History Past Medical/Surgical History: (1) Paraplegia (2) Left leg pain Review of Systems Review of Symptoms General ROS: no weight loss or fever Psychological ROS: no depression or mood changes, no memory loss Ophthalmic ROS: no visual changes or eye irritation ENT ROS: no nasal congestion, hearing loss, dizziness Allergy and Immunology ROS: no allergic symptoms or urticaria Hematological and Lymphatic ROS: no swollen glands, unusual bleeding or bruising Endocrine ROS: no polyuria, polydipsia, weight changes, temperature intolerance Respiratory ROS: no cough, shortness of breath, or wheezing Cardiovascular ROS: no chest pain or dyspnea on exertion Gastrointestinal ROS: denies abdominal pain, bright red blood in stool. Musculoskeletal ROS: no myalgias or arthralgias Neurological ROS: no TIA or stroke symptoms Dermatological ROS: no new or changing skin lesions, rashes or pruritis Physical Exam Physical Exam General appearance: alert, cooperative, no distress, appears stated age Head: Normocephalic, without obvious abnormality, atraumatic Eyes: conjunctivae/corneas clear. PERRL, EOM's intact. Fundi benign Throat: Lips, mucosa, and tongue normal. Teeth and gums normal Neck: supple, symmetrical, trachea midline, no adenopathy, thyroid: not enlarged, symmetric, no tenderness/mass/nodules, no carotid bruit and no JVD Lungs: clear to auscultation bilaterally Heart: regular rate and rhythm, S1, S2 normal, no murmur, click, rub or gallop Abdomen: soft, non-tender. Bowel sounds normal. No masses, no organomegaly Extremities: extremities see below Pulses: 2+ and symmetric Skin: Skin see below Neurologic: Grossly normal Last 24 Hour Vital Signs Date Time Temp Pulse Resp B/P (MAP) Pulse Ox O2 Delivery O2 Flow Rate FiO2 08/16/19 18:56 97.7 08/16/19 16:00 97.7 58 18 112/64 (80) 97 08/16/19 12:00 101.7 63 17 114/61 (78) 97 08/16/19 11:35 97.7 08/16/19 09:00 Room Air 08/16/19 08:00 98.0 98 16 103/68 (80) 96 08/16/19 06:13 101.0 08/16/19 04:00 101.7 75 21 113/75 (88) 100 08/16/19 00:23 100.5 82 22 117/77 (90) 100 08/15/19 23:30 Room Air Intake and Output 08/15/19 08/16/19 19:00 07:00 Intake Total 1 ml 1050 ml Output Total 505 ml Balance 1 ml 545 ml Intake Oral 1 ml 250 ml IV Total 800 ml Output Urine Total 450 ml Other 55 ml Laboratory Tests Test 08/16/19 04:00 White Blood Count 14.6 K/UL (4.8-10.8) H Red Blood Count 3.96 M/UL (4.70-6.10) L Hemoglobin 9.8 G/DL (14.2-18.0) L Hematocrit 30.3 % (42.0-52.0) L Mean Corpuscular Volume 76 FL (80-99) #L Mean Corpuscular Hemoglobin 24.8 PG (27.0-31.0) L Mean Corpuscular Hemoglobin Concent 32.5 G/DL (32.0-36.0) Red Cell Distribution Width 15.5 % (11.6-14.8) H Platelet Count 435 K/UL (150-450) Mean Platelet Volume 4.3 FL (6.5-10.1) L Neutrophils (%) (Auto) 77.2 % (45.0-75.0) H Lymphocytes (%) (Auto) 11.0 % (20.0-45.0) L Monocytes (%) (Auto) 10.0 % (1.0-10.0) Eosinophils (%) (Auto) 0.0 % (0.0-3.0) Basophils (%) (Auto) 1.8 % (0.0-2.0) Sodium Level 133 MMOL/L (136-145) L Potassium Level 3.9 MMOL/L (3.5-5.1) Chloride Level 95 MMOL/L (98-107) L Carbon Dioxide Level 23 MMOL/L (21-32) Anion Gap 15 mmol/L (5-15) Blood Urea Nitrogen 11 mg/dL (7-18) Creatinine 0.6 MG/DL (0.55-1.30) Estimat Glomerular Filtration Rate > 60 mL/min (>60) Glucose Level 108 MG/DL (74-106) H Calcium Level 8.7 MG/DL (8.5-10.1) Phosphorus Level 2.7 MG/DL (2.5-4.9) Magnesium Level 1.6 MG/DL (1.8-2.4) L Total Bilirubin 0.5 MG/DL (0.2-1.0) Aspartate Amino Transf (AST/SGOT) 43 U/L (15-37) H Alanine Aminotransferase (ALT/SGPT) 15 U/L (12-78) Alkaline Phosphatase 217 U/L (46-116) H Total Protein 7.9 G/DL (6.4-8.2) Albumin 2.5 G/DL (3.4-5.0) L Globulin 5.4 g/dL Albumin/Globulin Ratio 0.5 (1.0-2.7) L Height (Feet): 5 Height (Inches): 7.00 Weight (Pounds): 139 Medications Current Medications Medications (Trade) Dose Ordered Sig/Mya Route PRN Reason Start Time Stop Time Status Last Admin Dose Admin Acetaminophen (Tylenol) 650 mg Q6H PRN ORAL Temp >100.5 08/16/19 00:45 09/15/19 00:44 08/16/19 11:05 Clonazepam (KlonoPIN) 0.5 mg TID ORAL 08/16/19 09:00 08/23/19 08:59 08/16/19 17:17 Heparin Sodium (Porcine) (Heparin 5000 units/ml) 5,000 units EVERY 12 HOURS SUBQ 08/16/19 09:00 09/30/19 08:59 08/16/19 20:24 Hydromorphone HCl (Dilaudid) 0.5 mg Q6H PRN IVP moderate pain 08/15/19 21:45 08/22/19 21:44 Hydromorphone HCl (Dilaudid) 1 mg Q4H PRN IVP Severe Pain (Pain Scale 7-10) 08/16/19 10:30 08/23/19 10:29 08/16/19 18:26 Midodrine (Pro-Amatine) 10 mg THREE TIMES A DAY ORAL 08/16/19 09:00 11/14/19 08:59 08/16/19 17:17 Piperacillin Sod/ Tazobactam Sod 3.375 gm/Sodium Chloride 110 ml @ 27.5 mls/hr Q8H IVPB 08/16/19 08:00 08/23/19 07:59 08/16/19 17:18 Sodium Chloride 1,000 ml @ 100 mls/hr Q10H IV 08/15/19 21:45 09/14/19 21:44 08/16/19 17:17 Sodium Chloride 1,000 ml @ 100 mls/hr Q10H IV 08/16/19 12:00 08/17/19 07:59 08/16/19 12:14 Vancomycin HCl (Vanco pharmacy to dose) 1 ea DAILY PRN MISC Per rx protocol 08/16/19 08:00 09/15/19 07:59 Vancomycin HCl 1 gm/Dextrose 275 ml @ 183.708 mls/hr Q8H IVPB 08/16/19 12:00 08/21/19 11:59 08/16/19 20:14 Assessment/Plan Problem List: (1) Left leg pain Assessment & Plan: Patient presented admission complaining of left leg pain. On evaluation there is deformity left lower extremity plain films reviewed and obvious deformity noted as the femoral proximal is dislocated from the shaft. Patient is nonambulatory at baseline per report. He is somewhat cooperative examined with exam but a poor historian. Multiple skin concerns identified. Pt presented on admission with multiple Pressure Injuries, Bilat foot drop. Historical scar noted to L Hip Large Full Thickness Pressure Injury Buttocks with undermining and tunneling. Wound has irregular borders extends from Sacrum to L ischium and base of Scrotum,laterally from Outer R to Outer L gluteus.(L)18.9cm x (W)18.5cm x (D) 3.7cm, undermining clockwise 10-3 by 5.9cm @3o'clock,Tunneling clockwise @6o' clock by 2.7cm.Scattered Biofilm with Quay granulation at base of wound ,bone is palpable in tunneled and undermined areas. At distal base of wound, at scrotum is an area of slough-size of Quarter. Small amt non-odorous serous exudate.Periwound is pink with scattered brownish skin tone.( Full thickness Pressure injury R Ischium(L)9.5cm x (W)9.7cm x (D)4.2cm, Tunneling clockwise into perineum at 7o'clock by 5.3cm. Base of wound has scattered slough. Bone is palpable . Small amt seropurulent exudate. Mild odor which resolved post cleansing of wound.Erythema noted along edges. Additional area of slough noted periwound along borders clockwise @3-4o'clock. Non-Blanching erythema noted to Protruding bony prominence L Hip. Dry, loosening eschar lateral L tibia. (L)1.1cm x (W)0.4cm.Quay epithelial along borders. Stable dry, brown eschar noted to medial L tibia(L)4.3cm x (W)1cm. Stable dry eschar noted to Plantar L Heel. (L)4.5cm x (W)2cm. Periwound is boggy but blanchable.Historical scar alson noted periwound. Full thickness pressure injury Plantar R Heel (L)1.2cm x (W)2.5cm x (D)0.2cm. 80 % pink granulation,20% slough at base of wound. Edges are macerated. Small amt non-odorous serous exudate. Periwound is boggy but blanchable. Tx.Plan: Cleanse wound Buttocks with Saline. Loosely Pack wound including undermined areas with Hydrogel impregnated Kerlix.Apply Moisture Barrier Paste along borders. Cover with ABD Pads and secure with Tegaderm Daily and prn. Cleanse R Ischial Wound with Saline. Loosely pack with Hydrogel Impregnated Kerlix. Apply Moisture Barrier Periwound. Cover with ABD Pad and secure with Tegaderm Daily and prn. Apply Cavilon Skin Barrier to L Hip Bony Protrusion (Do Not Rub/ Massage area). Cover with Optifoam drsg. Change every 3 days and prn. Apply Betadine to Medial and lateral L Tibial wounds. Cover with Optifoam drsg every 3 days and prn. Apply Betadine to Plantar L Heel wound. Cover with Optifoam drsg. Change every 3 days and prn. Apply Betadine to Plantar R heel wound. Cover with Optifoam drsg every 3 days and prn. Reposition at least every 2hours or as tolerated. Place pillow between knees. Off-Load Heels with Pillow. APM/SUMI Mattress overlay. ICD Codes: M79.605 - Pain in left leg SNOMED: [id number] (2) Femur fracture Assessment & Plan: There is an old amputation defect across the mid femoral shaft. The mid to distal femur is unremarkable with normal articulation at the knee. The proximal femur including the femoral head is not visualized likely resected. There is deformity of the left hip/acetabulum likely posttraumatic. Adjacent heterotopic ossification noted. Surrounding soft tissue is normal. 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 can be done ioutpatient as this is chronic ICD Codes: S72.90XA - Unspecified fracture of unspecified femur, initial encounter for closed fracture SNOMED: 92773917 Cornelius Salgado Aug 16, 2019 21:00
--- NOTE | 2019-08-16 23:06 | NUR ---
NURSE NOTES: patient complaints on the left leg rated as 9/10and wants to take pain medicine. dilaudid 1mg given as ordered.
[2019-08-17] VITALS: BP 97/51
[2019-08-17] MEDS: Vancomycin 1gm/D5W 275ml IVPB SCH ×2 (03:09)
--- NOTE | 2019-08-17 03:30 | Consultation ---
DATE OF CONSULTATION: 08/16/2019 INFECTIOUS DISEASE CONSULTATION CONSULTING PHYSICIAN: Sharif Painting MD. ATTENDING PHYSICIAN: Thalia Marx MD. REFERRING PHYSICIAN: Rajesh Solis MD. REASON FOR CONSULTATION: UTI with sepsis, fevers, leukocytosis, possible sacral infection. CHIEF COMPLAINT: Patient's chief complaint coming in to the hospital is left femur fracture. HISTORY OF PRESENT ILLNESS: This is a 59-year-old male who presents to [facility]. Patient had what looks like possible fracture of the femur per the records. I am not clear if the patient has an acute fracture at this time. Patient was noted to have UTI and sepsis, fevers, leukocytosis, likely pyelonephritis. He has an extensive sacral wound that looks fairly clean. Patient is being seen by Surgery. Infectious Disease consultation is requested for antibiotic management. Patient with UTI, pyelonephritis, possible sacral wound infection, fevers, leukocytosis, sepsis. Patient currently is on vancomycin and Zosyn. Cultures are pending. Records reviewed. REVIEW OF SYSTEMS: Looks like he is paraplegic. He has a catheter. PAST MEDICAL HISTORY: Anemia, leg pain, paraplegia, catheter, sacral decubitus. No history of diabetes or hypertension. ALLERGIES: No known drug allergies. No antibiotic allergies. SOCIAL HISTORY: Negative for smoking, alcohol, or drug abuse. FAMILY HISTORY: Noncontributory. Negative for exposure to tuberculosis or cancer. MEDICATIONS: Upon reviewing the MAR, he is on following medications on Dilaudid, vancomycin, Zosyn, Klonopin, midodrine, heparin, acetaminophen, hydromorphone. Outside medications were noted and reconciliated. PHYSICAL EXAMINATION: VITAL SIGNS: T-max 101.7, currently temperature 97.7, pulse rate 50, respirations 18, blood pressure 112/64, saturation 97% on room air. GENERAL: Alert, responsive. He is paraplegic. HEAD AND NECK: Oral exam, no thrush. Eye exam, no icterus. Normocephalic. HEART: Regular. No gallop or murmur. ABDOMEN: Soft. Positive bowel sounds. Nontender. LUNGS: Few bilateral rhonchi. No rales. SKIN: No rash. MUSCULOSKELETAL: No effusion. Legs are without cellulitis. PERIPHERAL VASCULAR: No cyanosis. He has a significant sacral wound that was examined with a wound care nurse, mostly healthy tissue, but some slough. GENITOURINARY: He has a Marcos. Urine is slightly cloudy. LINE SITES: Without phlebitis. NEUROLOGIC: Generalized weakness, responsive, and alert. LABORATORY AND DIAGNOSTIC DATA: White count 14.6, hemoglobin 9.8. Creatinine 0.6. Chest x-ray shows no acute cardiopulmonary disease. Urine culture is pending. UA had positive nitrite, too many to count white blood cells, many bacteria. Cultures are pending. ASSESSMENT AND PLAN: 1. The patient has urinary tract infection/pyelonephritis with sepsis, fevers, and leukocytosis. The patient could have a sacral wound infection. Continue empiric Vanco and Zosyn for MRSA gram-negative coverage. Continue Vanco and Zosyn for UTI, pyelonephritis, sepsis, fevers leukocytosis, sacral wound infection. Check cultures, laboratories, chest x-ray. Continue wound care per Surgery. 2. Paraplegia. 3. Chronic catheter. 4. Sacral wound. 5. Anemia. 6. No history of diabetes or hypertension. 7. Pain management per primary care team. 8. No known allergies. 9. Social history is negative. 10. Family history is contributory. 11. MAR was noted. 12. Case discussed with RN. Sharif Painting M.D. DR: MAURILIO JOB#: [id number] CC:
[2019-08-17 04:00] VITALS: BP 104/53
[2019-08-17] MEDS: HYDROmorphone 1mg/ml Carpuject IVP PRN ×3 (04:27→17:59)
--- NOTE | 2019-08-17 04:29 | NUR ---
NURSE NOTES: patient is awake and complaints of pain on the left leg rated as 9/10. dilaudid 1mg IVP given as ordered.
[2019-08-17 06:32] LABS: EOSINOPHILS % (AUTO) 1.8 % (0.0-3.0); HEMATOCRIT 28.5 % (42.0-52.0); HEMOGLOBIN 9.2 G/DL (14.2-18.0); LYMPHOCYTES % (AUTO) 28.4 % (20.0-45.0); MEAN CORPUSCULAR VOLUME 77 FL (80-99); MONOCYTES % (AUTO) 6.5 % (1.0-10.0); NEUTROPHILS % (AUTO) 62.3 % (45.0-75.0); PLATELET COUNT 412 K/UL (150-450); RED CELL DISTRIBUTION WIDTH 15.8 % (11.6-14.8); WHITE BLOOD COUNT 9.4 K/UL (4.8-10.8)
[2019-08-17 07:20] LABS: ALANINE AMINOTRANSFERASE 16 U/L (12-78); ALBUMIN/GLOBULIN RATIO 0.4 (1.0-2.7); ALKALINE PHOSPHATASE 229 U/L (46-116); ANION GAP 13 mmol/L (5-15); ASPARTATE AMINO TRANSFERASE 39 U/L (15-37); BILIRUBIN,TOTAL 0.5 MG/DL (0.2-1.0); BLOOD UREA NITROGEN 8 mg/dL (7-18); CALCIUM 8.5 MG/DL (8.5-10.1); CARBON DIOXIDE 23 MMOL/L (21-32); CHLORIDE 95 MMOL/L (98-107); CREATININE 0.6 MG/DL (0.55-1.30); POTASSIUM 3.7 MMOL/L (3.5-5.1); SODIUM 131 MMOL/L (136-145)
--- NOTE | 2019-08-17 07:23 | NUR ---
NURSE NOTES: Addendum: 08/17/19 at 0724 by Kendra Farrell RN wrong entry
--- NOTE | 2019-08-17 07:24 | NUR ---
HAND-OFF: Report given to samanta sands . patient is stable. not in any form of respiratory distress. plan of care endorsed.
[2019-08-17 08:00] VITALS: BP 110/58
--- NOTE | 2019-08-17 08:11 | NUR ---
RD ASSESSMENT & RECOMMENDATIONS SEE CARE ACTIVITY FOR COMPLETE ASSESSMENT DAILY ESTIMATED NEEDS: Needs based on Advanced wounds/ 54kg 30-35 kcals/kg 9163-7912 total kcals 1.5-2.0 g protein/kg 81-108 g total protein 25-30 mL/kg 4420-5729 total fluid mLs NUTRITION DIAGNOSIS: Increased kcal/prot/micronutrients needs R/T wound healing as evidenced by pt admitted w/ advanced wounds, including full thickness wounds @ buttocks, R ischium (tunneling, bone palpable), and plantar R Heel. CURRENT DIET:REGULAR, mech soft ground PO DIET RECOMMENDATIONS: REGULAR, texture as tolerated or per OCCUPATIONAL THERAPY SUPERVISOR ADDITIONAL RECOMMENDATIONS: * Per SNF: HT=66" SP=941dey (as of 08/14/19) -> rec weekly calibrated bedscale wt * Ensure Enlive TID w/ meals (350kcal/20g prot each) * Monitor PO intake closely- refusing meals noted, encourage oral intake * OCCUPATIONAL THERAPY SUPERVISOR eval for appropriate texture * Wound healing: add MVI w/ mineral 1 tab QD, Vit C 500mg BID ZnSO4 220mg QD x 10 days Amari 1pkt BID as tolerated
--- NOTE | 2019-08-17 08:22 | NUR ---
NURSE NOTES: REPORT RECEIVED FROM TANJA MONTAGUE. PATIENT ON BED, AAOX4. CALM AND VERBALLY RESPONSIVE ON ROOM AIR, NO SOB NOTED AT THIS TIME. IV LINE ON LEFT AND RIGHT FOREARM. CHAVEZ CATHETER ANCHORED AND DRAINING WELL. NOTED WITH LEFT LOWER QUADRANT COLOSTOMY. PATIENT ON BILATERAL SOFT RESTRAINT. INFORMED PATIENT TO CALL FOR ASSISTANCE. NO ACUTE DISTRESS AT THIS TIME. BED PLACED IN LOWEST POSITION WITH BED ALARM ON. CALL LIGHT WITHIN REACH. WILL CONTINUE TO MONITOR
[2019-08-17] MEDS: Midodrine 10mg tab ORAL SCH ×3 (08:48→17:29)
[2019-08-17] MEDS: Heparin 5000 units/ml inj SUBQ SCH ×2 (08:50→21:05)
[2019-08-17] MEDS: Piperacillin/Tazobactam 3.375 GM in NS 110 ML IVPB SCH ×2 (08:50→16:17)
[2019-08-17 11:41] VITALS: BP 115/61
--- NOTE | 2019-08-17 12:19 | Nephrology Progress Note ---
Assessment/Plan Plan #sepsis due to UTI #Hyponatremia #hypomagnesemia #history for femur amputation #Left leg pain #Hx Left leg amputation #Paraplegia #Sacral decub ulcer #anemia - continue NS at 100cchr - replete mag - antibiotics per D - follow urine cx - monitor mag, phos, BMP daily - surgery eval - pain control - monitor WBC - monitor UOP - avoid nephrotoxins Time spent 70 minutes, greater than 50% on care coordination and counseling Subjective ROS Limited/Unobtainable: No Constitutional: Denies: no symptoms, chills, diaphoresis, fever, malaise, weakness, other Genitourinary: Denies: no symptoms, burning, discharge, frequency, flank pain, hematuria, incontinence, pain, urgency, other Neurologic/Psychiatric: Denies: no symptoms, anxiety, depressed, emotional problems, headache, numbness, paresthesia, pre-existing deficit, seizure, tingling, tremors, weakness, other Objective Objective Last 24 Hour Vital Signs Date Time Temp Pulse Resp B/P (MAP) Pulse Ox O2 Delivery O2 Flow Rate FiO2 08/17/19 11:41 98.8 79 18 115/61 (79) 97 08/17/19 09:00 Room Air 08/17/19 08:00 98.1 76 19 110/58 (75) 96 08/17/19 04:57 98.1 08/17/19 04:00 97.9 63 19 104/53 (70) 96 08/17/19 00:00 98.1 60 20 97/51 (66) 95 08/16/19 21:00 Room Air 08/16/19 20:00 98.1 62 19 100/60 (73) 96 08/16/19 16:00 97.7 58 18 112/64 (80) 97 Intake and Output 08/16/19 08/17/19 19:00 07:00 Intake Total 1354.916 ml 822.416 ml Output Total 650 ml 700 ml Balance 704.916 ml 122.416 ml Intake Oral 400 ml IV Total 1104.916 ml 422.416 ml Other 250 ml Output Urine Total 650 ml 700 ml # Voids 1 Laboratory Tests 08/17/19 04:30: White Blood Count 9.4, Red Blood Count 3.70L, Hemoglobin 9.2L, Hematocrit 28.5L , Mean Corpuscular Volume 77L, Mean Corpuscular Hemoglobin 24.8L, Mean Corpuscular Hemoglobin Concent 32.1, Red Cell Distribution Width 15.8H, Platelet Count 412, Mean Platelet Volume 4.2L, Neutrophils (%) (Auto) 62.3, Lymphocytes (%) (Auto) 28.4, Monocytes (%) (Auto) 6.5, Eosinophils (%) (Auto) 1.8, Basophils (%) (Auto) 1.0, Sodium Level 131L, Potassium Level 3.7, Chloride Level 95L, Carbon Dioxide Level 23, Anion Gap 13, Blood Urea Nitrogen 8, Creatinine 0.6, Estimat Glomerular Filtration Rate > 60, Glucose Level 72L, Calcium Level 8.5, Phosphorus Level 2.8, Magnesium Level 2.0, Total Bilirubin 0.5, Aspartate Amino Transf (AST/SGOT) 39H, Alanine Aminotransferase (ALT/SGPT) 16, Alkaline Phosphatase 229H, Total Protein 7.3, Albumin 2.0L, Globulin 5.3, Albumin/Globulin Ratio 0.4L 08/17/19 10:50: Vancomycin Level Trough 8.1 Height (Feet): 5 Height (Inches): 7.00 Weight (Pounds): 139 Sienna Georges M.D. Aug 17, 2019 12:19
[2019-08-17] MEDS: Vancomycin 1.25gm/NS Premix IVPB SCH ×2 (12:58→21:03)
[2019-08-17] MEDS: clonazePAM 0.5mg tab ORAL SCH ×2 (12:58→17:29)
--- NOTE | 2019-08-17 13:51 | General Progress Note ---
Assessment/Plan Assessment/Plan: 59-year-old male with multiple medical problems including paraplegia, bedbound, dementia admitted with sepsis due to urinary tract infection and AMS. #UTI -> gram neg bacilli #Sepsis due to a UTI (fever, leukocytosis) - ID consult, Dr Freeman - c/w vanco & zosyn (08/15 - ) - follow cxs/sens - trend chem, cbc - probiotic - supportive care - IVF - c/w home midodrine #Hyponatremia #Hypomagnesemia - replete prn - hypovolemic - IVF - nephro consult, Dr Georges #Anemia, acute on chonic #Suspect OSMIN - suspect dilutional, no e/o active bleed - trend cbc - transfuse for Hb < 7 #Left leg pain #Hx Left leg amputation #Paraplegia - ctm - pain control #Sacral decubitus ulcer, POA - offloading per rn protocl q2h - surgery consult for wound, appreciate recs and mgt #Toxic metabolic encephalopathy - tx as above - delirium precautions FENPPX DVTPPX: SCD, HSQ GI PPX: na Fluids: mIVF x 2L Diet: regular Lines: PT/OT: deferred for now Code status: Full Dispo: SNF ([facility]) Reason for Continued Hospitalization: sepsis due to UTI 38 minutes spent on this encounter. Discussed with RN at bedside and consultants named above. 27 spent on counseling and care coordination. In additional 39 min in addition to the usual care above I spent additional time reviewing records in the EMR including physician documentation, nursing documentation, laboratory results, imaging and other clinical documentation. Time of note may not reflect time patient was seen. Subjective Date patient seen: Aug 17, 2019 ROS Limited/Unobtainable: Yes - ams and dementia Allergies: Coded Allergies: No Known Allergies (Unverified , 08/15/19) Subjective afebrile leukocytosis resolved tolerating abx evaluated by surg, id, nephro remains confused on non violent wrist restraints due to pulling lines Objective Last 24 Hour Vital Signs Date Time Temp Pulse Resp B/P (MAP) Pulse Ox O2 Delivery O2 Flow Rate FiO2 08/17/19 11:41 98.8 79 18 115/61 (79) 97 08/17/19 09:00 Room Air 08/17/19 08:00 98.1 76 19 110/58 (75) 96 08/17/19 04:57 98.1 08/17/19 04:00 97.9 63 19 104/53 (70) 96 08/17/19 00:00 98.1 60 20 97/51 (66) 95 08/16/19 21:00 Room Air 08/16/19 20:00 98.1 62 19 100/60 (73) 96 08/16/19 16:00 97.7 58 18 112/64 (80) 97 Intake and Output 08/16/19 08/17/19 19:00 07:00 Intake Total 1354.916 ml 822.416 ml Output Total 650 ml 700 ml Balance 704.916 ml 122.416 ml Intake Oral 400 ml IV Total 1104.916 ml 422.416 ml Other 250 ml Output Urine Total 650 ml 700 ml # Voids 1 Laboratory Tests 08/17/19 04:30: White Blood Count 9.4, Red Blood Count 3.70L, Hemoglobin 9.2L, Hematocrit 28.5L , Mean Corpuscular Volume 77L, Mean Corpuscular Hemoglobin 24.8L, Mean Corpuscular Hemoglobin Concent 32.1, Red Cell Distribution Width 15.8H, Platelet Count 412, Mean Platelet Volume 4.2L, Neutrophils (%) (Auto) 62.3, Lymphocytes (%) (Auto) 28.4, Monocytes (%) (Auto) 6.5, Eosinophils (%) (Auto) 1.8, Basophils (%) (Auto) 1.0, Sodium Level 131L, Potassium Level 3.7, Chloride Level 95L, Carbon Dioxide Level 23, Anion Gap 13, Blood Urea Nitrogen 8, Creatinine 0.6, Estimat Glomerular Filtration Rate > 60, Glucose Level 72L, Calcium Level 8.5, Phosphorus Level 2.8, Magnesium Level 2.0, Total Bilirubin 0.5, Aspartate Amino Transf (AST/SGOT) 39H, Alanine Aminotransferase (ALT/SGPT) 16, Alkaline Phosphatase 229H, Total Protein 7.3, Albumin 2.0L, Globulin 5.3, Albumin/Globulin Ratio 0.4L 08/17/19 10:50: Vancomycin Level Trough 8.1 Height (Feet): 5 Height (Inches): 7.00 Weight (Pounds): 139 Objective General Appearance: no apparent distress, alert, confused HEENT: normocephalic, atraumatic, PERRL, EOMI, supple, no JVD Neck: normal alignment Respiratory/Chest: lungs clear, no respiratory distress, no accessory muscle use Cardiovascular/Chest: normal rate, no gallop/murmur, no JVD Abdomen: non tender, soft, no organomegaly Extremities: other - Atrophic CELIOE Rajesh Solis MD Aug 17, 2019 13:51
[2019-08-17 16:00] VITALS: BP 106/59
--- NOTE | 2019-08-17 16:00 | NUR ---
NURSE NOTES: CAPTAIN/CHECK AIRMAN NOTIFIED RN OF PATIENTS TEMP AT 100.4. RN CHECKED AND TEMP WAS 100.2. GAVE ACETAMINOPHEN PER PROTOCOL. WILL ASSESS IN 30 MINUTES
--- NOTE | 2019-08-17 16:10 | NUR ---
CASE MANAGEMENT:REVIEW 08/17/19 SI;SEPSIS UTI. HYPONATREMIA. SACRAL DECUB. LLE PAIN. PARAPLEGIA 98.1 76 19 110/58 96% ON RA H/H 9.2/28.5 NA 131 CL 95 AST 39 ALK PHOS 229 ALB 2.0 IS;VANCOMYCIN IV Q8 HRS ZOSYN IV Q8 HRS KLONOPIN PO TID HEPARIN SUBQ Q12 HRS MIDODRINE PO TID MED SURG STATUS DCP; FROM [facility] PLAN: FEVERS BETTER CONTROLLED CONT WOUND CARE
--- NOTE | 2019-08-17 16:25 | NUR ---
*-* INSURANCE *-* UPDATED CLINICALS AND REVIEWS HAVE BEEN FAXED TO: [facility] REF# [id number] F: [phone]
--- NOTE | 2019-08-17 16:38 | Surgery Progress Note ---
Surgery Progress Note Subjective Additional Comments leukocytosis resolved exam stable comfortable labs noted dressings going well Objective Last 24 Hour Vital Signs Date Time Temp Pulse Resp B/P (MAP) Pulse Ox O2 Delivery O2 Flow Rate FiO2 08/17/19 11:41 98.8 79 18 115/61 (79) 97 08/17/19 09:00 Room Air 08/17/19 08:00 98.1 76 19 110/58 (75) 96 08/17/19 04:57 98.1 08/17/19 04:00 97.9 63 19 104/53 (70) 96 08/17/19 00:00 98.1 60 20 97/51 (66) 95 08/16/19 21:00 Room Air 08/16/19 20:00 98.1 62 19 100/60 (73) 96 I&O Intake and Output 08/16/19 08/17/19 19:00 07:00 Intake Total 1354.916 ml 822.416 ml Output Total 650 ml 700 ml Balance 704.916 ml 122.416 ml Intake Oral 400 ml IV Total 1104.916 ml 422.416 ml Other 250 ml Output Urine Total 650 ml 700 ml # Voids 1 Dressing: other Wound: other Drains: other Cardiovascular: RSR Respiratory: decreased breath sounds Abdomen: soft, non-tender, present bowel sounds Extremities: no cyanosis Laboratory Tests Test 08/17/19 04:30 08/17/19 10:50 White Blood Count 9.4 K/UL (4.8-10.8) Red Blood Count 3.70 M/UL (4.70-6.10) L Hemoglobin 9.2 G/DL (14.2-18.0) L Hematocrit 28.5 % (42.0-52.0) L Mean Corpuscular Volume 77 FL (80-99) L Mean Corpuscular Hemoglobin 24.8 PG (27.0-31.0) L Mean Corpuscular Hemoglobin Concent 32.1 G/DL (32.0-36.0) Red Cell Distribution Width 15.8 % (11.6-14.8) H Platelet Count 412 K/UL (150-450) Mean Platelet Volume 4.2 FL (6.5-10.1) L Neutrophils (%) (Auto) 62.3 % (45.0-75.0) Lymphocytes (%) (Auto) 28.4 % (20.0-45.0) Monocytes (%) (Auto) 6.5 % (1.0-10.0) Eosinophils (%) (Auto) 1.8 % (0.0-3.0) Basophils (%) (Auto) 1.0 % (0.0-2.0) Sodium Level 131 MMOL/L (136-145) L Potassium Level 3.7 MMOL/L (3.5-5.1) Chloride Level 95 MMOL/L (98-107) L Carbon Dioxide Level 23 MMOL/L (21-32) Anion Gap 13 mmol/L (5-15) Blood Urea Nitrogen 8 mg/dL (7-18) Creatinine 0.6 MG/DL (0.55-1.30) Estimat Glomerular Filtration Rate > 60 mL/min (>60) Glucose Level 72 MG/DL (74-106) L Calcium Level 8.5 MG/DL (8.5-10.1) Phosphorus Level 2.8 MG/DL (2.5-4.9) Magnesium Level 2.0 MG/DL (1.8-2.4) Total Bilirubin 0.5 MG/DL (0.2-1.0) Aspartate Amino Transf (AST/SGOT) 39 U/L (15-37) H Alanine Aminotransferase (ALT/SGPT) 16 U/L (12-78) Alkaline Phosphatase 229 U/L (46-116) H Total Protein 7.3 G/DL (6.4-8.2) Albumin 2.0 G/DL (3.4-5.0) L Globulin 5.3 g/dL Albumin/Globulin Ratio 0.4 (1.0-2.7) L Vancomycin Level Trough 8.1 ug/mL (5.0-12.0) Plan Problems: (1) Left leg pain Assessment & Plan: Patient presented admission complaining of left leg pain. On evaluation there is deformity left lower extremity plain films reviewed and obvious deformity noted as the femoral proximal is dislocated from the shaft. Patient is nonambulatory at baseline per report. He is somewhat cooperative examined with exam but a poor historian. Multiple skin concerns identified. Pt presented on admission with multiple Pressure Injuries, Bilat foot drop. Historical scar noted to L Hip Large Full Thickness Pressure Injury Buttocks with undermining and tunneling. Wound has irregular borders extends from Sacrum to L ischium and base of Scrotum,laterally from Outer R to Outer L gluteus.(L)18.9cm x (W)18.5cm x (D) 3.7cm, undermining clockwise 10-3 by 5.9cm @3o'clock,Tunneling clockwise @6o' clock by 2.7cm.Scattered Biofilm with Coward granulation at base of wound ,bone is palpable in tunneled and undermined areas. At distal base of wound, at scrotum is an area of slough-size of Quarter. Small amt non-odorous serous exudate.Periwound is pink with scattered brownish skin tone.( Full thickness Pressure injury R Ischium(L)9.5cm x (W)9.7cm x (D)4.2cm, Tunneling clockwise into perineum at 7o'clock by 5.3cm. Base of wound has scattered slough. Bone is palpable . Small amt seropurulent exudate. Mild odor which resolved post cleansing of wound.Erythema noted along edges. Additional area of slough noted periwound along borders clockwise @3-4o'clock. Non-Blanching erythema noted to Protruding bony prominence L Hip. Dry, loosening eschar lateral L tibia. (L)1.1cm x (W)0.4cm.Coward epithelial along borders. Stable dry, brown eschar noted to medial L tibia(L)4.3cm x (W)1cm. Stable dry eschar noted to Plantar L Heel. (L)4.5cm x (W)2cm. Periwound is boggy but blanchable.Historical scar alson noted periwound. Full thickness pressure injury Plantar R Heel (L)1.2cm x (W)2.5cm x (D)0.2cm. 80 % pink granulation,20% slough at base of wound. Edges are macerated. Small amt non-odorous serous exudate. Periwound is boggy but blanchable. Tx.Plan: Cleanse wound Buttocks with Saline. Loosely Pack wound including undermined areas with Hydrogel impregnated Kerlix.Apply Moisture Barrier Paste along borders. Cover with ABD Pads and secure with Tegaderm Daily and prn. Cleanse R Ischial Wound with Saline. Loosely pack with Hydrogel Impregnated Kerlix. Apply Moisture Barrier Periwound. Cover with ABD Pad and secure with Tegaderm Daily and prn. Apply Cavilon Skin Barrier to L Hip Bony Protrusion (Do Not Rub/ Massage area). Cover with Optifoam drsg. Change every 3 days and prn. Apply Betadine to Medial and lateral L Tibial wounds. Cover with Optifoam drsg every 3 days and prn. Apply Betadine to Plantar L Heel wound. Cover with Optifoam drsg. Change every 3 days and prn. Apply Betadine to Plantar R heel wound. Cover with Optifoam drsg every 3 days and prn. Reposition at least every 2hours or as tolerated. Place pillow between knees. Off-Load Heels with Pillow. APM/SUMI Mattress overlay. (2) Femur fracture Assessment & Plan: There is an old amputation defect across the mid femoral shaft. The mid to distal femur is unremarkable with normal articulation at the knee. The proximal femur including the femoral head is not visualized likely resected. There is deformity of the left hip/acetabulum likely posttraumatic. Adjacent heterotopic ossification noted. Surrounding soft tissue is normal. 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 can be done ioutpatient as this is chronic Cornelius Salgado Aug 17, 2019 16:38
--- NOTE | 2019-08-17 17:41 | NUR ---
NURSE NOTES: PATIENT HAS NOT EATEN 95% OF HIS MEALS SINCE AM. RN ENCOURAGED FEEDING BUT PATIENT CONTINUES TO REFUSE. RN WAS ABLE TO GIVE SNACKS WITH MEDICATION
--- NOTE | 2019-08-17 18:15 | NUR ---
NURSE NOTES: RN CALLED DR. RODRIGUEZ AND LEFT A MESSAGE REGARDING CULTURE RESULTS. INFORMATION WAS 3 BOTTLE POSITIVE FOR COCCI AND 1 BOTTLE POSITIVE FOR RODS. ALSO COVID TEST ON AUGUST 14 CAME OUT NEGATIVE. AWAITING FURTHER INSTRUCTIONS
--- NOTE | 2019-08-17 19:22 | NUR ---
HAND-OFF: Report given to TANJA CHOUDHARY.
[2019-08-17 20:00] VITALS: BP 102/55
--- NOTE | 2019-08-17 22:23 | Neurology Progress Note ---
Interim History Interim History ROS Limited/Unobtainable: Yes - ams and dementia Interim History 59-year-old male from [facility] sent to the emergency department for left knee pain. Upon arrival to the ER patient was found to be febrile above 101 and Lab are consistent with UTI. X-ray of the left leg revealed an old femoral amputation versus traumatic fracture without any acute changes. Clinically a leg appeared chronically to formed without evidence of infection. Patient was started and perky on antibiotics and will be admitted for further management. Confused but able to follow, still in pain Objective Physical Exam Last Vital Signs Date Time Temp Pulse Resp B/P (MAP) Pulse Ox O2 Delivery O2 Flow Rate FiO2 08/17/19 20:00 98.8 52 20 102/55 (71) 99 08/17/19 09:00 Room Air Laboratory Tests Test 08/17/19 04:30 08/17/19 10:50 08/17/19 17:00 White Blood Count 9.4 K/UL (4.8-10.8) Red Blood Count 3.70 M/UL (4.70-6.10) L Hemoglobin 9.2 G/DL (14.2-18.0) L Hematocrit 28.5 % (42.0-52.0) L Mean Corpuscular Volume 77 FL (80-99) L Mean Corpuscular Hemoglobin 24.8 PG (27.0-31.0) L Mean Corpuscular Hemoglobin Concent 32.1 G/DL (32.0-36.0) Red Cell Distribution Width 15.8 % (11.6-14.8) H Platelet Count 412 K/UL (150-450) Mean Platelet Volume 4.2 FL (6.5-10.1) L Neutrophils (%) (Auto) 62.3 % (45.0-75.0) Lymphocytes (%) (Auto) 28.4 % (20.0-45.0) Monocytes (%) (Auto) 6.5 % (1.0-10.0) Eosinophils (%) (Auto) 1.8 % (0.0-3.0) Basophils (%) (Auto) 1.0 % (0.0-2.0) Sodium Level 131 MMOL/L (136-145) L Potassium Level 3.7 MMOL/L (3.5-5.1) Chloride Level 95 MMOL/L (98-107) L Carbon Dioxide Level 23 MMOL/L (21-32) Anion Gap 13 mmol/L (5-15) Blood Urea Nitrogen 8 mg/dL (7-18) Creatinine 0.6 MG/DL (0.55-1.30) Estimat Glomerular Filtration Rate > 60 mL/min (>60) Glucose Level 72 MG/DL (74-106) L Calcium Level 8.5 MG/DL (8.5-10.1) Phosphorus Level 2.8 MG/DL (2.5-4.9) Magnesium Level 2.0 MG/DL (1.8-2.4) Total Bilirubin 0.5 MG/DL (0.2-1.0) Aspartate Amino Transf (AST/SGOT) 39 U/L (15-37) H Alanine Aminotransferase (ALT/SGPT) 16 U/L (12-78) Alkaline Phosphatase 229 U/L (46-116) H Total Protein 7.3 G/DL (6.4-8.2) Albumin 2.0 G/DL (3.4-5.0) L Globulin 5.3 g/dL Albumin/Globulin Ratio 0.4 (1.0-2.7) L Vancomycin Level Trough 8.1 ug/mL (5.0-12.0) Urine Osmolality 751 mOsm/kg (429-449) H Urine Random Sodium 95 mmol/L (20-110) Head: normocophalic Neck: no rigidity Neurologic Exam Mental Status: awake Speech: normal speech Language: normal language Cranial Nerve II: fundus normal Objective paraplegia Impression/Recommendations Problems: (1) Paraplegia (2) Left leg pain (3) Femur fracture Diagnostic Impression toxic metabolic encephalopathy Del precautions pain control atb per ID Jose Joyner MD Aug 17, 2019 22:23
--- NOTE | 2019-08-17 22:24 | Consultation ---
History of Present Illness General Date patient seen: Aug 16, 2019 Chief Complaint: Pain Reason for Consultation: ams Present Illness HPI 59-year-old male from [facility] sent to the emergency department for left knee pain. Upon arrival to the ER patient was found to be febrile above 101 and Lab are consistent with UTI. X-ray of the left leg revealed an old femoral amputation versus traumatic fracture without any acute changes. Clinically a leg appeared chronically to formed without evidence of infection. Patient was started and perky on antibiotics and will be admitted for further management. Allergies: Coded Allergies: No Known Allergies (Unverified , 08/15/19) Medication History Scheduled Clonazepam* (Klonopin*), 0.5 MG ORAL TID, (Reported) Docusate Sodium* (Docusate Sodium*), 100 MG ORAL TWICE A DAY, (Reported) Midodrine* (Proamatine*), 10 MG ORAL THREE TIMES A DAY, (Reported) Scheduled PRN Acetaminophen* (Acetaminophen 325MG Tablet*), 650 MG ORAL Q6H PRN for For Pain, (Reported) Hydrocodone Bit/Acetaminophen 10-325* ([place] 10-325*), 1 TAB ORAL Q6H PRN for For Pain, (Reported) Tramadol Hcl* (Ultram*), 50 MG ORAL Q6H PRN for For Pain, (Reported) Patient History Healthcare decision maker N Resuscitation status Advanced Directive on File Physical Exam General Appearance: alert, confused Lines, tubes and drains: peripheral HEENT: normocephalic, atraumatic Neck: non-tender Cardiovascular/Chest: normal rate Neurologic: internet sales representative II-XII grossly normal, responsive Last 24 Hour Vital Signs Date Time Temp Pulse Resp B/P (MAP) Pulse Ox O2 Delivery O2 Flow Rate FiO2 08/17/19 20:00 98.8 52 20 102/55 (71) 99 08/17/19 16:30 98.2 08/17/19 16:00 100.4 57 19 106/59 (75) 99 08/17/19 11:41 98.8 79 18 115/61 (79) 97 08/17/19 09:00 Room Air 08/17/19 08:00 98.1 76 19 110/58 (75) 96 08/17/19 04:57 98.1 08/17/19 04:00 97.9 63 19 104/53 (70) 96 08/17/19 00:00 98.1 60 20 97/51 (66) 95 Intake and Output 08/16/19 08/17/19 19:00 07:00 Intake Total 1354.916 ml 822.416 ml Output Total 650 ml 700 ml Balance 704.916 ml 122.416 ml Intake Oral 400 ml IV Total 1104.916 ml 422.416 ml Other 250 ml Output Urine Total 650 ml 700 ml # Voids 1 Laboratory Tests Test 08/17/19 04:30 08/17/19 10:50 08/17/19 17:00 White Blood Count 9.4 K/UL (4.8-10.8) Red Blood Count 3.70 M/UL (4.70-6.10) L Hemoglobin 9.2 G/DL (14.2-18.0) L Hematocrit 28.5 % (42.0-52.0) L Mean Corpuscular Volume 77 FL (80-99) L Mean Corpuscular Hemoglobin 24.8 PG (27.0-31.0) L Mean Corpuscular Hemoglobin Concent 32.1 G/DL (32.0-36.0) Red Cell Distribution Width 15.8 % (11.6-14.8) H Platelet Count 412 K/UL (150-450) Mean Platelet Volume 4.2 FL (6.5-10.1) L Neutrophils (%) (Auto) 62.3 % (45.0-75.0) Lymphocytes (%) (Auto) 28.4 % (20.0-45.0) Monocytes (%) (Auto) 6.5 % (1.0-10.0) Eosinophils (%) (Auto) 1.8 % (0.0-3.0) Basophils (%) (Auto) 1.0 % (0.0-2.0) Sodium Level 131 MMOL/L (136-145) L Potassium Level 3.7 MMOL/L (3.5-5.1) Chloride Level 95 MMOL/L (98-107) L Carbon Dioxide Level 23 MMOL/L (21-32) Anion Gap 13 mmol/L (5-15) Blood Urea Nitrogen 8 mg/dL (7-18) Creatinine 0.6 MG/DL (0.55-1.30) Estimat Glomerular Filtration Rate > 60 mL/min (>60) Glucose Level 72 MG/DL (74-106) L Calcium Level 8.5 MG/DL (8.5-10.1) Phosphorus Level 2.8 MG/DL (2.5-4.9) Magnesium Level 2.0 MG/DL (1.8-2.4) Total Bilirubin 0.5 MG/DL (0.2-1.0) Aspartate Amino Transf (AST/SGOT) 39 U/L (15-37) H Alanine Aminotransferase (ALT/SGPT) 16 U/L (12-78) Alkaline Phosphatase 229 U/L (46-116) H Total Protein 7.3 G/DL (6.4-8.2) Albumin 2.0 G/DL (3.4-5.0) L Globulin 5.3 g/dL Albumin/Globulin Ratio 0.4 (1.0-2.7) L Vancomycin Level Trough 8.1 ug/mL (5.0-12.0) Urine Osmolality 751 mOsm/kg (429-449) H Urine Random Sodium 95 mmol/L (20-110) Height (Feet): 5 Height (Inches): 7.00 Weight (Pounds): 139 Medications Current Medications Medications (Trade) Dose Ordered Sig/Mya Route PRN Reason Start Time Stop Time Status Last Admin Dose Admin Acetaminophen (Tylenol) 650 mg Q6H PRN ORAL Temp >100.5 08/16/19 00:45 09/15/19 00:44 08/17/19 15:58 Clonazepam (KlonoPIN) 0.5 mg TID ORAL 08/17/19 13:00 08/24/19 12:59 08/17/19 17:29 Heparin Sodium (Porcine) (Heparin 5000 units/ml) 5,000 units EVERY 12 HOURS SUBQ 08/16/19 09:00 09/30/19 08:59 08/17/19 21:05 Hydromorphone HCl (Dilaudid) 0.5 mg Q6H PRN IVP moderate pain 08/15/19 21:45 08/22/19 21:44 Hydromorphone HCl (Dilaudid) 1 mg Q4H PRN IVP Severe Pain (Pain Scale 7-10) 08/16/19 10:30 08/23/19 10:29 08/17/19 17:59 Midodrine (Pro-Amatine) 10 mg THREE TIMES A DAY ORAL 08/16/19 09:00 11/14/19 08:59 08/17/19 17:29 Piperacillin Sod/ Tazobactam Sod 3.375 gm/Sodium Chloride 110 ml @ 27.5 mls/hr Q8H IVPB 08/16/19 08:00 08/23/19 07:59 08/17/19 16:17 Vancomycin HCl (Vanco pharmacy to dose) 1 ea DAILY PRN MISC Per rx protocol 08/16/19 08:00 09/15/19 07:59 Vancomycin/Sodium Chloride 275 ml @ 183.333 mls/hr Q8H IVPB 08/17/19 13:00 08/22/19 12:59 08/17/19 21:03 Assessment/Plan Problem List: (1) Paraplegia ICD Codes: G82.20 - Paraplegia, unspecified SNOMED: 24374604 (2) Left leg pain ICD Codes: M79.605 - Pain in left leg SNOMED: 862775084 (3) Femur fracture ICD Codes: S72.90XA - Unspecified fracture of unspecified femur, initial encounter for closed fracture SNOMED: 28253560 Assessment/Plan: acute encephalopathy toxic metabolic Jose Joyner MD Aug 17, 2019 22:24
--- NOTE | 2019-08-17 23:37 | NUR ---
NURSE NOTES: Called MD almond huller for restraint renewal. Dr. Lynette MD almond huller, called back and made aware and ordered for renewal of restraints, orders taken and carried out.
[2019-08-18] VITALS: BP 122/62
[2019-08-18] MEDS: Piperacillin/Tazobactam 3.375 GM in NS 110 ML IVPB SCH (00:20)
[2019-08-18 04:00] VITALS: BP 120/64
[2019-08-18] MEDS: HYDROmorphone 1mg/ml Carpuject IVP PRN ×4 (05:14→22:04)
[2019-08-18] MEDS: Vancomycin 1.25gm/NS Premix IVPB SCH (05:46)
[2019-08-18 06:47] LABS: ANION GAP 12 mmol/L (5-15); BLOOD UREA NITROGEN 10 mg/dL (7-18); CALCIUM 8.2 MG/DL (8.5-10.1); CARBON DIOXIDE 23 MMOL/L (21-32); CHLORIDE 98 MMOL/L (98-107); CREATININE 1.8 MG/DL (0.55-1.30); PHOSPHORUS 2.9 MG/DL (2.5-4.9); POTASSIUM 3.1 MMOL/L (3.5-5.1); SODIUM 133 MMOL/L (136-145)
--- NOTE | 2019-08-18 07:24 | NUR ---
HAND-OFF: Report given to Sudha AGRAWAL.
--- NOTE | 2019-08-18 07:58 | NUR ---
NURSE NOTES: Report received from Lisa/TANJA Kelley. Patient seen on rounds, asleep but easily rousable. No outward sx of pain, not in distress, tolerating room air. PIV on right forearm patent and intact. Colostomy bag on and draining. Marcos cath secured, patent, and draining well. Wound dressing on sacrum, right ischium, and bilateral heels intact. Bed low and locked, siderails up x2, zone alarms on 1, will continue to monitor.
[2019-08-18 08:00] VITALS: BP 93/51
[2019-08-18] MEDS: Ertapenem 1 GM in NS 55 ML IVPB SCH (08:55)
[2019-08-18] MEDS: clonazePAM 0.5mg tab ORAL SCH ×3 (08:58→18:06)
[2019-08-18] MEDS: Midodrine 10mg tab ORAL SCH ×3 (08:58→18:06)
[2019-08-18] MEDS: Heparin 5000 units/ml inj SUBQ SCH ×2 (08:59→20:02)
--- NOTE | 2019-08-18 10:36 | General Progress Note ---
Assessment/Plan Assessment/Plan: 59-year-old male with multiple medical problems including paraplegia, bedbound, dementia admitted with sepsis due to urinary tract infection and AMS. #UTI -> gram neg bacilli #Sepsis due to a UTI (fever, leukocytosis) - ID consult, Dr Freeman - s/p vanco & zosyn (08/15 - 08/16) - ertapenem per cx sens (08/17 - ) - follow cxs/sens - trend chem, cbc - probiotic - supportive care - IVF - c/w home midodrine #Hyponatremia #Hypomagnesemia - replete prn - hypovolemic - IVF - nephro consult, Dr Georges #Anemia, acute on chonic #Suspect OSMIN - suspect dilutional, no e/o active bleed - trend cbc - transfuse for Hb < 7 #Left leg pain #Hx Left leg amputation #Paraplegia - ctm - pain control #Sacral decubitus ulcer, POA - offloading per rn protocl q2h - surgery consult for wound, appreciate recs and mgt #Toxic metabolic encephalopathy - tx as above - delirium precautions FENPPX DVTPPX: SCD, HSQ GI PPX: na Fluids: mIVF x 2L Diet: regular Lines: PT/OT: deferred for now Code status: Full Dispo: SNF ([facility]) Reason for Continued Hospitalization: sepsis due to UTI 38 minutes spent on this encounter. Discussed with RN at bedside and consultants named above. 27 spent on counseling and care coordination. In additional 39 min in addition to the usual care above I spent additional time reviewing records in the EMR including physician documentation, nursing documentation, laboratory results, imaging and other clinical documentation. Time of note may not reflect time patient was seen. Subjective Date patient seen: Aug 18, 2019 Allergies: Coded Allergies: No Known Allergies (Unverified , 08/15/19) Subjective slept well no new complaints remains on non violent restraints abx adj oer cx results, will dw id Objective Last 24 Hour Vital Signs Date Time Temp Pulse Resp B/P (MAP) Pulse Ox O2 Delivery O2 Flow Rate FiO2 08/18/19 09:00 Room Air 08/18/19 08:00 99.3 51 18 93/51 (65) 96 08/18/19 04:00 99.0 62 20 120/64 (82) 94 08/18/19 00:00 99.1 53 18 122/62 (82) 96 08/17/19 21:00 Room Air 08/17/19 20:00 98.8 52 20 102/55 (71) 99 08/17/19 16:30 98.2 08/17/19 16:00 100.4 57 19 106/59 (75) 99 08/17/19 11:41 98.8 79 18 115/61 (79) 97 Intake and Output 08/17/19 08/18/19 19:00 07:00 Intake Total 890.000 ml 623.333 ml Output Total 450 ml 100 ml Balance 440.000 ml 523.333 ml Intake Oral 450 ml IV Total 440.000 ml 623.333 ml Output Urine Total 450 ml 100 ml # Voids 1 Laboratory Tests 08/17/19 10:50: Vancomycin Level Trough 8.1 08/17/19 17:00: Urine Osmolality 751H, Urine Random Sodium 95 08/18/19 05:50: Sodium Level 133L, Potassium Level 3.1L, Chloride Level 98, Carbon Dioxide Level 23, Anion Gap 12, Blood Urea Nitrogen 10, Creatinine 1.8#H, Estimat Glomerular Filtration Rate 38.9, Glucose Level 88, Osmolality 281L, Calcium Level 8.2L, Phosphorus Level 2.9, Magnesium Level 1.8, Thyroid Stimulating Hormone (TSH) 1.672, Cortisol AM Sample [Pending] Height (Feet): 5 Height (Inches): 7.00 Weight (Pounds): 139 Objective General Appearance: no apparent distress, alert, confused HEENT: normocephalic, atraumatic, PERRL, EOMI, supple, no JVD Neck: normal alignment Respiratory/Chest: lungs clear, no respiratory distress, no accessory muscle use Cardiovascular/Chest: normal rate, no gallop/murmur, no JVD Abdomen: non tender, soft, no organomegaly Extremities: other - Atrophic CELIOE Rajesh Solis MD Aug 18, 2019 10:36
--- NOTE | 2019-08-18 11:14 | NUR ---
CASE MANAGEMENT:REVIEW SI;SEPSIS UTI. HYPONATREMIA. SACRAL DECUB. LLE PAIN. PARAPLEGIA. 99.3 51 20 93/51 94% ON RA NA 133 K+ 3.1 CR 1.8 CA 8.2 IS;IN ERTAPENEM Q24 HR KLONOPIN PO TID MIDODRINE PO TID IV ZOSYN Q8 HRS DILAUDID IV Q4 HRS PRN MED SURG STATUS DCP; FROM [facility]
--- NOTE | 2019-08-18 11:46 | NUR ---
*-* INSURANCE *-* UPDATED CLINICALS AND REVIEWS HAVE BEEN FAXED TO: [facility] REF# [id number] F: [phone]
[2019-08-18 12:00] VITALS: BP 107/56
--- NOTE | 2019-08-18 12:11 | Nephrology Progress Note ---
Assessment/Plan Plan #sepsis due to UTI #Hyponatremia #hypomagnesemia #history for femur amputation #Left leg pain #Hx Left leg amputation #Paraplegia #Sacral decub ulcer #anemia - switch to NS + 40 meq at 75cc/hr - kcl 40 meq x1 - follow TSH, am cortisol - continue midodrine 10mg TID - replete mag - antibiotics per D - follow urine cx - monitor mag, phos, BMP daily - surgery eval - pain control - monitor WBC - monitor UOP - avoid nephrotoxins Time spent 70 minutes, greater than 50% on care coordination and counseling Subjective ROS Limited/Unobtainable: No HEENT: Denies: no symptoms, eye pain, blurred vision, tearing, double vision, ear pain, ear discharge, nose pain, nose congestion, throat pain, throat swelling, mouth pain, mouth swelling, other Genitourinary: Denies: no symptoms, burning, discharge, frequency, flank pain, hematuria, incontinence, pain, urgency, other Neurologic/Psychiatric: Denies: no symptoms, anxiety, depressed, emotional problems, headache, numbness, paresthesia, pre-existing deficit, seizure, tingling, tremors, weakness, other Subjective K low will replete Cr up to 1.8 BP borderline on midordine Objective Objective Last 24 Hour Vital Signs Date Time Temp Pulse Resp B/P (MAP) Pulse Ox O2 Delivery O2 Flow Rate FiO2 08/18/19 09:00 Room Air 08/18/19 08:00 99.3 51 18 93/51 (65) 96 08/18/19 04:00 99.0 62 20 120/64 (82) 94 08/18/19 00:00 99.1 53 18 122/62 (82) 96 08/17/19 21:00 Room Air 08/17/19 20:00 98.8 52 20 102/55 (71) 99 08/17/19 16:30 98.2 08/17/19 16:00 100.4 57 19 106/59 (75) 99 Intake and Output 08/17/19 08/18/19 19:00 07:00 Intake Total 890.000 ml 623.333 ml Output Total 450 ml 100 ml Balance 440.000 ml 523.333 ml Intake Oral 450 ml IV Total 440.000 ml 623.333 ml Output Urine Total 450 ml 100 ml # Voids 1 Laboratory Tests 08/17/19 17:00: Urine Osmolality 751H, Urine Random Sodium 95 08/18/19 05:50: Sodium Level 133L, Potassium Level 3.1L, Chloride Level 98, Carbon Dioxide Level 23, Anion Gap 12, Blood Urea Nitrogen 10, Creatinine 1.8#H, Estimat Glomerular Filtration Rate 38.9, Glucose Level 88, Osmolality 281L, Calcium Level 8.2L, Phosphorus Level 2.9, Magnesium Level 1.8, Thyroid Stimulating Hormone (TSH) 1.672, Cortisol AM Sample [Pending] Height (Feet): 5 Height (Inches): 7.00 Weight (Pounds): 139 Sienna Georges M.D. Aug 18, 2019 12:11
[2019-08-18] MEDS: NS w/KCl 40mEq 1,000 ML IV SCH (14:06)
--- NOTE | 2019-08-18 14:51 | Surgery Progress Note ---
Surgery Progress Note Subjective Additional Comments no acute events labs noted exam stable Objective Last 24 Hour Vital Signs Date Time Temp Pulse Resp B/P (MAP) Pulse Ox O2 Delivery O2 Flow Rate FiO2 08/18/19 12:00 98.8 54 18 107/56 (73) 96 08/18/19 09:00 Room Air 08/18/19 08:00 99.3 51 18 93/51 (65) 96 08/18/19 04:00 99.0 62 20 120/64 (82) 94 08/18/19 00:00 99.1 53 18 122/62 (82) 96 08/17/19 21:00 Room Air 08/17/19 20:00 98.8 52 20 102/55 (71) 99 08/17/19 16:30 98.2 08/17/19 16:00 100.4 57 19 106/59 (75) 99 I&O Intake and Output 08/17/19 08/18/19 19:00 07:00 Intake Total 890.000 ml 623.333 ml Output Total 450 ml 100 ml Balance 440.000 ml 523.333 ml Intake Oral 450 ml IV Total 440.000 ml 623.333 ml Output Urine Total 450 ml 100 ml # Voids 1 Dressing: other Wound: other Drains: other Cardiovascular: RSR Respiratory: decreased breath sounds Abdomen: soft, present bowel sounds Extremities: no cyanosis Laboratory Tests Test 08/17/19 17:00 08/18/19 05:50 Urine Osmolality 751 mOsm/kg (429-449) H Urine Random Sodium 95 mmol/L (20-110) Sodium Level 133 MMOL/L (136-145) L Potassium Level 3.1 MMOL/L (3.5-5.1) L Chloride Level 98 MMOL/L (98-107) Carbon Dioxide Level 23 MMOL/L (21-32) Anion Gap 12 mmol/L (5-15) Blood Urea Nitrogen 10 mg/dL (7-18) Creatinine 1.8 MG/DL (0.55-1.30) #H Estimat Glomerular Filtration Rate 38.9 mL/min (>60) Glucose Level 88 MG/DL (74-106) Osmolality 281 mOsm/kg (297-317) L Calcium Level 8.2 MG/DL (8.5-10.1) L Phosphorus Level 2.9 MG/DL (2.5-4.9) Magnesium Level 1.8 MG/DL (1.8-2.4) Thyroid Stimulating Hormone (TSH) 1.672 uiU/mL (0.358-3.740) Cortisol AM Sample Pending Plan Problems: (1) Left leg pain Assessment & Plan: Patient presented admission complaining of left leg pain. On evaluation there is deformity left lower extremity plain films reviewed and obvious deformity noted as the femoral proximal is dislocated from the shaft. Patient is nonambulatory at baseline per report. He is somewhat cooperative examined with exam but a poor historian. Multiple skin concerns identified. Pt presented on admission with multiple Pressure Injuries, Bilat foot drop. Historical scar noted to L Hip Large Full Thickness Pressure Injury Buttocks with undermining and tunneling. Wound has irregular borders extends from Sacrum to L ischium and base of Scrotum,laterally from Outer R to Outer L gluteus.(L)18.9cm x (W)18.5cm x (D) 3.7cm, undermining clockwise 10-3 by 5.9cm @3o'clock,Tunneling clockwise @6o' clock by 2.7cm.Scattered Biofilm with [place] granulation at base of wound ,bone is palpable in tunneled and undermined areas. At distal base of wound, at scrotum is an area of slough-size of Quarter. Small amt non-odorous serous exudate.Periwound is pink with scattered brownish skin tone.( Full thickness Pressure injury R Ischium(L)9.5cm x (W)9.7cm x (D)4.2cm, Tunneling clockwise into perineum at 7o'clock by 5.3cm. Base of wound has scattered slough. Bone is palpable . Small amt seropurulent exudate. Mild odor which resolved post cleansing of wound.Erythema noted along edges. Additional area of slough noted periwound along borders clockwise @3-4o'clock. Non-Blanching erythema noted to Protruding bony prominence L Hip. Dry, loosening eschar lateral L tibia. (L)1.1cm x (W)0.4cm.[place] epithelial along borders. Stable dry, brown eschar noted to medial L tibia(L)4.3cm x (W)1cm. Stable dry eschar noted to Plantar L Heel. (L)4.5cm x (W)2cm. Periwound is boggy but blanchable.Historical scar alson noted periwound. Full thickness pressure injury Plantar R Heel (L)1.2cm x (W)2.5cm x (D)0.2cm. 80 % pink granulation,20% slough at base of wound. Edges are macerated. Small amt non-odorous serous exudate. Periwound is boggy but blanchable. Tx.Plan: Cleanse wound Buttocks with Saline. Loosely Pack wound including undermined areas with Hydrogel impregnated Kerlix.Apply Moisture Barrier Paste along borders. Cover with ABD Pads and secure with Tegaderm Daily and prn. Cleanse R Ischial Wound with Saline. Loosely pack with Hydrogel Impregnated Kerlix. Apply Moisture Barrier Periwound. Cover with ABD Pad and secure with Tegaderm Daily and prn. Apply Cavilon Skin Barrier to L Hip Bony Protrusion (Do Not Rub/ Massage area). Cover with Optifoam drsg. Change every 3 days and prn. Apply Betadine to Medial and lateral L Tibial wounds. Cover with Optifoam drsg every 3 days and prn. Apply Betadine to Plantar L Heel wound. Cover with Optifoam drsg. Change every 3 days and prn. Apply Betadine to Plantar R heel wound. Cover with Optifoam drsg every 3 days and prn. Reposition at least every 2hours or as tolerated. Place pillow between knees. Off-Load Heels with Pillow. APM/SUMI Mattress overlay. (2) Femur fracture Assessment & Plan: There is an old amputation defect across the mid femoral shaft. The mid to distal femur is unremarkable with normal articulation at the knee. The proximal femur including the femoral head is not visualized likely resected. There is deformity of the left hip/acetabulum likely posttraumatic. Adjacent heterotopic ossification noted. Surrounding soft tissue is normal. 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 can be done ioutpatient as this is chronic Cornelius Salgado Aug 18, 2019 14:51
--- NOTE | 2019-08-18 15:25 | Infectious Diseases Prog Note ---
Assessment/Plan Assessment/Plan ASSESSMENT AND PLAN: 1. 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 endocarditis, ? staph aureus /gram neg sacral wound infection, sepsis, leukocytosis, fevers, mrsa colonization - ertapenem and vancomycin - f/o surveillance blood cultures, labs, check TTE - wound care per surgery 2. Paraplegia. 3. Chronic catheter. 4. Sacral wound. 5. Anemia. 6. No history of diabetes or hypertension. 7. Pain management per primary care team. 8. No known allergies. 9. Social history is negative. 10. Family history is contributory. 11. MAR was noted. 12. Case discussed with RN. Subjective Constitutional: Denies: fever HEENT: Denies: congestion Respiratory: Denies: shortness of breath Cardiovascular: Denies: chest pain Gastrointestinal/Abdominal: Denies: nausea, vomiting Genitourinary: Denies: dysuria Neurologic: Denies: headache, numbness Psychiatric: Denies: depression Skin: Denies: rash Hematologic: Denies: bleeding Musculoskeletal: Denies: pain Allergies: Coded Allergies: No Known Allergies (Unverified , 08/15/19) Objective Vital Signs Last 24 Hour Vital Signs Date Time Temp Pulse Resp B/P (MAP) Pulse Ox O2 Delivery O2 Flow Rate FiO2 08/18/19 12:00 98.8 54 18 107/56 (73) 96 08/18/19 09:00 Room Air 08/18/19 08:00 99.3 51 18 93/51 (65) 96 08/18/19 04:00 99.0 62 20 120/64 (82) 94 08/18/19 00:00 99.1 53 18 122/62 (82) 96 08/17/19 21:00 Room Air 08/17/19 20:00 98.8 52 20 102/55 (71) 99 08/17/19 16:30 98.2 08/17/19 16:00 100.4 57 19 106/59 (75) 99 Height (Feet): 5 Height (Inches): 7.00 Weight (Pounds): 139 General Appearance: no acute distress HEENT: normocephalic, atraumatic, anicteric Respiratory/Chest: crackles/rales, rhonchi - bilaterally Cardiovascular: normal rate, regular rhythm Abdomen: normal bowel sounds, soft, non tender, no organomegaly, non distended Genitourinary: other - + donohue - urine Extremities: no cyanosis Skin: no rash 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 FINDINGS: A single one view chest is obtained. Vascularity is normal. The lung hess are clear bilaterally. Cardiac and mediastinal silhouette are within normal limits. CP angles are sharp. The bony thorax appear unremarkable. IMPRESSION: NO ACUTE CARDIOPULMONARY DISEASE. Microbiology Date/Time Source Procedure Growth Status 08/15/19 18:45 Blood Blood Culture - Preliminary Staphylococcus Sp Coag Neg Resulted 08/15/19 18:30 Blood Blood Culture - Preliminary Staphylococcus Sp Coag Neg Resulted 08/15/19 18:50 Nasopharynx Coronavirus COVID-19 PCR (GEN[facility]) - Final Complete 08/15/19 18:50 Nasal Nares MRSA Culture - Final Staphylococcus Aureus - Mrsa Complete 08/15/19 18:50 Urine,Clean Catch Urine Culture - Final Enterobacter Cloacae Complete 08/16/19 18:20 Sacral Wound Gram Stain - Final Resulted 08/16/19 18:20 Wound Culture - Preliminary Staphylococcus Aureus Gram Negative Bacillus 1 Resulted 08/15/19 18:50 Rectum VRE Culture - Final NO VANCOMYCIN RESISTANT ENTEROCOCCUS ... Complete Labs Test 08/15/19 16:01 08/15/19 18:45 08/15/19 18:50 08/16/19 04:00 White Blood Count 12.1 K/UL (4.8-10.8) 14.6 K/UL (4.8-10.8) Red Blood Count 4.15 M/UL (4.70-6.10) 3.96 M/UL (4.70-6.10) Hemoglobin 10.1 G/DL (14.2-18.0) 9.8 G/DL (14.2-18.0) Hematocrit 34.6 % (42.0-52.0) 30.3 % (42.0-52.0) Mean Corpuscular Volume 83 FL (80-99) 76 FL (80-99) Mean Corpuscular Hemoglobin 24.2 PG (27.0-31.0) 24.8 PG (27.0-31.0) Mean Corpuscular Hemoglobin Concent 29.0 G/DL (32.0-36.0) 32.5 G/DL (32.0-36.0) Red Cell Distribution Width 17.6 % (11.6-14.8) 15.5 % (11.6-14.8) Platelet Count 552 K/UL (150-450) 435 K/UL (150-450) Mean Platelet Volume 5.2 FL (6.5-10.1) 4.3 FL (6.5-10.1) Neutrophils (%) (Auto) 73.2 % (45.0-75.0) 77.2 % (45.0-75.0) Lymphocytes (%) (Auto) 17.4 % (20.0-45.0) 11.0 % (20.0-45.0) Monocytes (%) (Auto) 7.9 % (1.0-10.0) 10.0 % (1.0-10.0) Eosinophils (%) (Auto) 0.1 % (0.0-3.0) 0.0 % (0.0-3.0) Basophils (%) (Auto) 1.4 % (0.0-2.0) 1.8 % (0.0-2.0) Sodium Level 135 MMOL/L (136-145) 133 MMOL/L (136-145) Potassium Level 4.1 MMOL/L (3.5-5.1) 3.9 MMOL/L (3.5-5.1) Chloride Level 94 MMOL/L (98-107) 95 MMOL/L (98-107) Carbon Dioxide Level 27 MMOL/L (21-32) 23 MMOL/L (21-32) Anion Gap 14 mmol/L (5-15) 15 mmol/L (5-15) Blood Urea Nitrogen 12 mg/dL (7-18) 11 mg/dL (7-18) Creatinine 0.9 MG/DL (0.55-1.30) 0.6 MG/DL (0.55-1.30) Estimat Glomerular Filtration Rate > 60 mL/min (>60) > 60 mL/min (>60) Glucose Level 113 MG/DL (74-106) 108 MG/DL (74-106) Calcium Level 9.5 MG/DL (8.5-10.1) 8.7 MG/DL (8.5-10.1) Total Bilirubin 0.4 MG/DL (0.2-1.0) 0.5 MG/DL (0.2-1.0) Aspartate Amino Transf (AST/SGOT) 15 U/L (15-37) 43 U/L (15-37) Alanine Aminotransferase (ALT/SGPT) 14 U/L (12-78) 15 U/L (12-78) Alkaline Phosphatase 249 U/L (46-116) 217 U/L (46-116) Total Protein 9.5 G/DL (6.4-8.2) 7.9 G/DL (6.4-8.2) Albumin 2.6 G/DL (3.4-5.0) 2.5 G/DL (3.4-5.0) Globulin 6.9 g/dL 5.4 g/dL Albumin/Globulin Ratio 0.4 (1.0-2.7) 0.5 (1.0-2.7) Lactic Acid Level 1.30 mmol/L (0.4-2.0) Urine Color Yellow Urine Appearance Slightly cloudy Urine pH 5 (4.5-8.0) Urine Specific [place] 1.025 (1.005-1.035) Urine Protein 3+ (NEGATIVE) Urine Glucose (UA) Negative (NEGATIVE) Urine Ketones 4+ (NEGATIVE) Urine Blood 5+ (NEGATIVE) Urine Nitrite Positive (NEGATIVE) Urine Bilirubin Negative (NEGATIVE) Urine Urobilinogen 1 MG/DL (0.0-1.0) Urine Leukocyte Esterase 3+ (NEGATIVE) Urine RBC 5-10 /HPF (0 - 0) Urine WBC Tntc /HPF (0 - 0) Urine Squamous Epithelial Cells None /LPF (NONE/OCC) Urine Bacteria Many /HPF (NONE) Phosphorus Level 2.7 MG/DL (2.5-4.9) Magnesium Level 1.6 MG/DL (1.8-2.4) Test 08/17/19 04:30 08/17/19 10:50 08/17/19 17:00 08/18/19 05:50 White Blood Count 9.4 K/UL (4.8-10.8) Red Blood Count 3.70 M/UL (4.70-6.10) Hemoglobin 9.2 G/DL (14.2-18.0) Hematocrit 28.5 % (42.0-52.0) Mean Corpuscular Volume 77 FL (80-99) Mean Corpuscular Hemoglobin 24.8 PG (27.0-31.0) Mean Corpuscular Hemoglobin Concent 32.1 G/DL (32.0-36.0) Red Cell Distribution Width 15.8 % (11.6-14.8) Platelet Count 412 K/UL (150-450) Mean Platelet Volume 4.2 FL (6.5-10.1) Neutrophils (%) (Auto) 62.3 % (45.0-75.0) Lymphocytes (%) (Auto) 28.4 % (20.0-45.0) Monocytes (%) (Auto) 6.5 % (1.0-10.0) Eosinophils (%) (Auto) 1.8 % (0.0-3.0) Basophils (%) (Auto) 1.0 % (0.0-2.0) Sodium Level 131 MMOL/L (136-145) 133 MMOL/L (136-145) Potassium Level 3.7 MMOL/L (3.5-5.1) 3.1 MMOL/L (3.5-5.1) Chloride Level 95 MMOL/L (98-107) 98 MMOL/L (98-107) Carbon Dioxide Level 23 MMOL/L (21-32) 23 MMOL/L (21-32) Anion Gap 13 mmol/L (5-15) 12 mmol/L (5-15) Blood Urea Nitrogen 8 mg/dL (7-18) 10 mg/dL (7-18) Creatinine 0.6 MG/DL (0.55-1.30) 1.8 MG/DL (0.55-1.30) Estimat Glomerular Filtration Rate > 60 mL/min (>60) 38.9 mL/min (>60) Glucose Level 72 MG/DL (74-106) 88 MG/DL (74-106) Calcium Level 8.5 MG/DL (8.5-10.1) 8.2 MG/DL (8.5-10.1) Phosphorus Level 2.8 MG/DL (2.5-4.9) 2.9 MG/DL (2.5-4.9) Magnesium Level 2.0 MG/DL (1.8-2.4) 1.8 MG/DL (1.8-2.4) Total Bilirubin 0.5 MG/DL (0.2-1.0) Aspartate Amino Transf (AST/SGOT) 39 U/L (15-37) Alanine Aminotransferase (ALT/SGPT) 16 U/L (12-78) Alkaline Phosphatase 229 U/L (46-116) Total Protein 7.3 G/DL (6.4-8.2) Albumin 2.0 G/DL (3.4-5.0) Globulin 5.3 g/dL Albumin/Globulin Ratio 0.4 (1.0-2.7) Vancomycin Level Trough 8.1 ug/mL (5.0-12.0) Urine Osmolality 751 mOsm/kg (429-449) Urine Random Sodium 95 mmol/L (20-110) Osmolality 281 mOsm/kg (297-317) Thyroid Stimulating Hormone (TSH) 1.672 uiU/mL (0.358-3.740) Laboratory Tests Test 08/17/19 17:00 08/18/19 05:50 Urine Osmolality 751 mOsm/kg (429-449) H Urine Random Sodium 95 mmol/L (20-110) Sodium Level 133 MMOL/L (136-145) L Potassium Level 3.1 MMOL/L (3.5-5.1) L Chloride Level 98 MMOL/L (98-107) Carbon Dioxide Level 23 MMOL/L (21-32) Anion Gap 12 mmol/L (5-15) Blood Urea Nitrogen 10 mg/dL (7-18) Creatinine 1.8 MG/DL (0.55-1.30) #H Estimat Glomerular Filtration Rate 38.9 mL/min (>60) Glucose Level 88 MG/DL (74-106) Osmolality 281 mOsm/kg (297-317) L Calcium Level 8.2 MG/DL (8.5-10.1) L Phosphorus Level 2.9 MG/DL (2.5-4.9) Magnesium Level 1.8 MG/DL (1.8-2.4) Thyroid Stimulating Hormone (TSH) 1.672 uiU/mL (0.358-3.740) Cortisol AM Sample Pending Current Medications Medications (Trade) Dose Ordered Sig/Mya Route PRN Reason Start Time Stop Time Status Last Admin Dose Admin Acetaminophen (Tylenol) 650 mg Q6H PRN ORAL Temp >100.5 08/16/19 00:45 09/15/19 00:44 08/17/19 15:58 Clonazepam (KlonoPIN) 0.5 mg TID ORAL 08/17/19 13:00 08/24/19 12:59 08/18/19 12:48 Ertapenem 1 gm/ Sodium Chloride 55 ml @ 110 mls/hr Q24H IVPB 08/18/19 08:00 08/25/19 07:59 08/18/19 08:55 Heparin Sodium (Porcine) (Heparin 5000 units/ml) 5,000 units EVERY 12 HOURS SUBQ 08/16/19 09:00 09/30/19 08:59 08/18/19 08:59 Hydromorphone HCl (Dilaudid) 0.5 mg Q6H PRN IVP moderate pain 08/15/19 21:45 08/22/19 21:44 Hydromorphone HCl (Dilaudid) 1 mg Q4H PRN IVP Severe Pain (Pain Scale 7-10) 08/16/19 10:30 08/23/19 10:29 08/18/19 11:26 Midodrine (Pro-Amatine) 10 mg THREE TIMES A DAY ORAL 08/16/19 09:00 11/14/19 08:59 08/18/19 12:48 Potassium Chloride/Sodium Chloride 1,000 ml @ 75 mls/hr [id number] IV 08/18/19 14:00 09/17/19 13:59 08/18/19 14:06 Sharif Painting MD Aug 18, 2019 15:25
[2019-08-18 16:00] VITALS: BP 129/58
--- NOTE | 2019-08-18 19:25 | NUR ---
HAND-OFF: Report given to Emil AGRAWAL.
--- NOTE | 2019-08-18 19:30 | NUR ---
NURSE NOTES: Pt. received from TANJA Sanchez. Pt. AAOx2, on room air, breathing even and unlabored, no complaints of pain. Bilateral soft wrist restraints, movement and sensation intact, pulses palpable. IV right Forearm 20g with NS 40mEq at 75 cc/hr. Marcos intact and draining yellow urine well. Bed is low and locked, side rails x3 up, bed alarm active, and call light in reach. Addendum: 08/18/19 at 1940 by Emil Schwarz RN Pt. received from TANJA Beavers
[2019-08-18 20:00] VITALS: BP 130/65
--- NOTE | 2019-08-18 22:35 | Neurology Progress Note ---
Interim History Interim History ROS Limited/Unobtainable: No Interim History no new deficits Objective Physical Exam Last Vital Signs Date Time Temp Pulse Resp B/P (MAP) Pulse Ox O2 Delivery O2 Flow Rate FiO2 08/18/19 16:00 100.0 50 18 129/58 (81) 96 08/18/19 09:00 Room Air Laboratory Tests Test 08/18/19 05:50 Sodium Level 133 MMOL/L (136-145) L Potassium Level 3.1 MMOL/L (3.5-5.1) L Chloride Level 98 MMOL/L (98-107) Carbon Dioxide Level 23 MMOL/L (21-32) Anion Gap 12 mmol/L (5-15) Blood Urea Nitrogen 10 mg/dL (7-18) Creatinine 1.8 MG/DL (0.55-1.30) #H Estimat Glomerular Filtration Rate 38.9 mL/min (>60) Glucose Level 88 MG/DL (74-106) Osmolality 281 mOsm/kg (297-317) L Calcium Level 8.2 MG/DL (8.5-10.1) L Phosphorus Level 2.9 MG/DL (2.5-4.9) Magnesium Level 1.8 MG/DL (1.8-2.4) Thyroid Stimulating Hormone (TSH) 1.672 uiU/mL (0.358-3.740) Cortisol AM Sample Pending Head: normocophalic Neck: no rigidity Neurologic Exam Mental Status: awake Speech: normal speech Language: normal language Cranial Nerve II: fundus normal Objective paraplegia Impression/Recommendations Problems: (1) Paraplegia (2) Left leg pain (3) Femur fracture Diagnostic Impression toxic metabolic encephalopathy Del precautions pain control atb per Jose Hays MD Aug 18, 2019 22:35
[2019-08-19] VITALS (8 sets, daily range): BP systolic 121–154; BP diastolic 59–75
[2019-08-19] MEDS: NS w/KCl 40mEq 1,000 ML IV SCH (03:47)
[2019-08-19 07:10] LABS: BASOPHILS % (AUTO) 1.5 % (0.0-2.0); EOSINOPHILS % (AUTO) 0.3 % (0.0-3.0); HEMATOCRIT 32.3 % (42.0-52.0); HEMOGLOBIN 10.3 G/DL (14.2-18.0); LYMPHOCYTES % (AUTO) 21.3 % (20.0-45.0); MEAN CORPUSCULAR VOLUME 77 FL (80-99); MONOCYTES % (AUTO) 6.5 % (1.0-10.0); NEUTROPHILS % (AUTO) 70.4 % (45.0-75.0); PLATELET COUNT 473 K/UL (150-450); RED BLOOD COUNT 4.19 M/UL (4.70-6.10); RED CELL DISTRIBUTION WIDTH 15.9 % (11.6-14.8); WHITE BLOOD COUNT 11.3 K/UL (4.8-10.8)
[2019-08-19 07:11] LABS: ANION GAP 14 mmol/L (5-15); BLOOD UREA NITROGEN 16 mg/dL (7-18); CALCIUM 8.6 MG/DL (8.5-10.1); CARBON DIOXIDE 20 MMOL/L (21-32); CHLORIDE 102 MMOL/L (98-107); CREATININE 3.1 MG/DL (0.55-1.30); PHOSPHORUS 3.4 MG/DL (2.5-4.9); POTASSIUM 4.8 MMOL/L (3.5-5.1); SODIUM 136 MMOL/L (136-145)
--- NOTE | 2019-08-19 07:41 | NUR ---
HAND-OFF: Report given to TANJA Olivas.
--- NOTE | 2019-08-19 08:04 | NUR ---
NURSE NOTES: Patient alert x2, confused and and forgetful; on room air, no sing of distress and shortness of breath; no sing of chest pain; IV Right For-Arm, flushes well; Marcos in place, collects yellow urine; bilateral wrist restrains in place, skin warm to touch; side rails up x2, breaks engaged, bed at lowest position, bed alarm on; call light within reach; will keep monitoring.
[2019-08-19] MEDS: clonazePAM 0.5mg tab ORAL SCH ×3 (08:47→17:20)
[2019-08-19] MEDS: Ertapenem 1 GM in NS 55 ML IVPB SCH (08:47)
[2019-08-19] MEDS: Midodrine 10mg tab ORAL SCH ×2 (08:47→12:22)
[2019-08-19] MEDS: Heparin 5000 units/ml inj SUBQ SCH ×2 (08:52→20:14)
[2019-08-19] MEDS: HYDROmorphone 1mg/ml Carpuject IVP PRN (12:27)
--- NOTE | 2019-08-19 14:03 | Surgery Progress Note ---
Surgery Progress Note Subjective Additional Comments comfortable wbc cr elevated discussed with renal femur fx chronic and likely from contracture not acute Objective Last 24 Hour Vital Signs Date Time Temp Pulse Resp B/P (MAP) Pulse Ox O2 Delivery O2 Flow Rate FiO2 08/19/19 12:57 98.0 08/19/19 12:00 98.1 61 18 138/70 (92) 97 08/19/19 09:00 Room Air 08/19/19 08:00 98.0 55 18 146/68 (94) 96 08/19/19 04:00 98.4 53 20 130/63 (85) 96 08/19/19 00:00 98.5 59 18 121/66 (84) 96 08/18/19 21:00 Room Air 08/18/19 20:00 98.4 51 20 130/65 (86) 96 08/18/19 16:00 100.0 50 18 129/58 (81) 96 I&O Intake and Output 08/18/19 08/19/19 19:00 07:00 Intake Total 120 ml 75 ml Output Total 800 ml 400 ml Balance -680 ml -325 ml Intake Oral 120 ml IV Total 75 ml Output Urine Total 800 ml 400 ml # Voids 1 Dressing: other Wound: other Drains: other Cardiovascular: RSR Respiratory: decreased breath sounds Abdomen: soft, non-tender, present bowel sounds, other Extremities: no tenderness, no cyanosis, other Laboratory Tests Test 08/19/19 06:00 White Blood Count 11.3 K/UL (4.8-10.8) H Red Blood Count 4.19 M/UL (4.70-6.10) L Hemoglobin 10.3 G/DL (14.2-18.0) L Hematocrit 32.3 % (42.0-52.0) L Mean Corpuscular Volume 77 FL (80-99) L Mean Corpuscular Hemoglobin 24.6 PG (27.0-31.0) L Mean Corpuscular Hemoglobin Concent 31.8 G/DL (32.0-36.0) L Red Cell Distribution Width 15.9 % (11.6-14.8) H Platelet Count 473 K/UL (150-450) H Mean Platelet Volume 4.0 FL (6.5-10.1) L Neutrophils (%) (Auto) 70.4 % (45.0-75.0) Lymphocytes (%) (Auto) 21.3 % (20.0-45.0) Monocytes (%) (Auto) 6.5 % (1.0-10.0) Eosinophils (%) (Auto) 0.3 % (0.0-3.0) Basophils (%) (Auto) 1.5 % (0.0-2.0) Sodium Level 136 MMOL/L (136-145) Potassium Level 4.8 MMOL/L (3.5-5.1) # Chloride Level 102 MMOL/L (98-107) Carbon Dioxide Level 20 MMOL/L (21-32) L Anion Gap 14 mmol/L (5-15) Blood Urea Nitrogen 16 mg/dL (7-18) Creatinine 3.1 MG/DL (0.55-1.30) #H Estimat Glomerular Filtration Rate 20.8 mL/min (>60) Glucose Level 80 MG/DL (74-106) Calcium Level 8.6 MG/DL (8.5-10.1) Phosphorus Level 3.4 MG/DL (2.5-4.9) Magnesium Level 2.1 MG/DL (1.8-2.4) Random Vancomycin Level 32.4 ug/mL Plan Problems: (1) Left leg pain Assessment & Plan: Patient presented admission complaining of left leg pain. On evaluation there is deformity left lower extremity plain films reviewed and obvious deformity noted as the femoral proximal is dislocated from the shaft. Patient is nonambulatory at baseline per report. He is somewhat cooperative examined with exam but a poor historian. Multiple skin concerns identified. Pt presented on admission with multiple Pressure Injuries, Bilat foot drop. Historical scar noted to L Hip Large Full Thickness Pressure Injury Buttocks with undermining and tunneling. Wound has irregular borders extends from Sacrum to L ischium and base of Scrotum,laterally from Outer R to Outer L gluteus.(L)18.9cm x (W)18.5cm x (D) 3.7cm, undermining clockwise 10-3 by 5.9cm @3o'clock,Tunneling clockwise @6o' clock by 2.7cm.Scattered Biofilm with [place] granulation at base of wound ,bone is palpable in tunneled and undermined areas. At distal base of wound, at scrotum is an area of slough-size of Quarter. Small amt non-odorous serous exudate.Periwound is pink with scattered brownish skin tone.( Full thickness Pressure injury R Ischium(L)9.5cm x (W)9.7cm x (D)4.2cm, Tunneling clockwise into perineum at 7o'clock by 5.3cm. Base of wound has scattered slough. Bone is palpable . Small amt seropurulent exudate. Mild odor which resolved post cleansing of wound.Erythema noted along edges. Additional area of slough noted periwound along borders clockwise @3-4o'clock. Non-Blanching erythema noted to Protruding bony prominence L Hip. Dry, loosening eschar lateral L tibia. (L)1.1cm x (W)0.4cm.[place] epithelial along borders. Stable dry, brown eschar noted to medial L tibia(L)4.3cm x (W)1cm. Stable dry eschar noted to Plantar L Heel. (L)4.5cm x (W)2cm. Periwound is boggy but blanchable.Historical scar alson noted periwound. Full thickness pressure injury Plantar R Heel (L)1.2cm x (W)2.5cm x (D)0.2cm. 80 % pink granulation,20% slough at base of wound. Edges are macerated. Small amt non-odorous serous exudate. Periwound is boggy but blanchable. Tx.Plan: Cleanse wound Buttocks with Saline. Loosely Pack wound including undermined areas with Hydrogel impregnated Kerlix.Apply Moisture Barrier Paste along borders. Cover with ABD Pads and secure with Tegaderm Daily and prn. Cleanse R Ischial Wound with Saline. Loosely pack with Hydrogel Impregnated Kerlix. Apply Moisture Barrier Periwound. Cover with ABD Pad and secure with Tegaderm Daily and prn. Apply Cavilon Skin Barrier to L Hip Bony Protrusion (Do Not Rub/ Massage area). Cover with Optifoam drsg. Change every 3 days and prn. Apply Betadine to Medial and lateral L Tibial wounds. Cover with Optifoam drsg every 3 days and prn. Apply Betadine to Plantar L Heel wound. Cover with Optifoam drsg. Change every 3 days and prn. Apply Betadine to Plantar R heel wound. Cover with Optifoam drsg every 3 days and prn. Reposition at least every 2hours or as tolerated. Place pillow between knees. Off-Load Heels with Pillow. APM/SUMI Mattress overlay. (2) Femur fracture Assessment & Plan: There is an old amputation defect across the mid femoral shaft. The mid to distal femur is unremarkable with normal articulation at the knee. The proximal femur including the femoral head is not visualized likely resected. There is deformity of the left hip/acetabulum likely posttraumatic. Adjacent heterotopic ossification noted. Surrounding soft tissue is normal. 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 can be done ioutpatient as this is chronic ostomy prolapse stable loop and functional Cornelius Salgado Aug 19, 2019 14:03
--- NOTE | 2019-08-19 14:19 | Nephrology Progress Note ---
Assessment/Plan Plan #sepsis due to UTI #Hyponatremia #hypomagnesemia #history for femur amputation #Left leg pain #Hx Left leg amputation #Paraplegia #Sacral decub ulcer #anemia - Cr up to 3.1 - will Dc vanco - check renal US - place donohue - NS 75cc/hr - Decrease midodrine to 5mg TID - DC VANCO - antibiotics per D - follow urine cx - monitor mag, phos, BMP daily - surgery eval - pain control - monitor WBC - monitor UOP - avoid nephrotoxins Time spent 70 minutes, greater than 50% on care coordination and counseling Subjective ROS Limited/Unobtainable: Yes Subjective Cr up to 3.1 will Dc vanco check renal US place donohue Objective Objective Last 24 Hour Vital Signs Date Time Temp Pulse Resp B/P (MAP) Pulse Ox O2 Delivery O2 Flow Rate FiO2 08/19/19 12:57 98.0 08/19/19 12:00 98.1 61 18 138/70 (92) 97 08/19/19 09:00 Room Air 08/19/19 08:00 98.0 55 18 146/68 (94) 96 08/19/19 04:00 98.4 53 20 130/63 (85) 96 08/19/19 00:00 98.5 59 18 121/66 (84) 96 08/18/19 21:00 Room Air 08/18/19 20:00 98.4 51 20 130/65 (86) 96 08/18/19 16:00 100.0 50 18 129/58 (81) 96 Intake and Output 08/18/19 08/19/19 19:00 07:00 Intake Total 120 ml 75 ml Output Total 800 ml 400 ml Balance -680 ml -325 ml Intake Oral 120 ml IV Total 75 ml Output Urine Total 800 ml 400 ml # Voids 1 Laboratory Tests 08/19/19 06:00: White Blood Count 11.3H, Red Blood Count 4.19L, Hemoglobin 10.3L, Hematocrit 32.3L, Mean Corpuscular Volume 77L, Mean Corpuscular Hemoglobin 24.6L, Mean Corpuscular Hemoglobin Concent 31.8L, Red Cell Distribution Width 15.9H, Platelet Count 473H, Mean Platelet Volume 4.0L, Neutrophils (%) (Auto) 70.4, Lymphocytes (%) (Auto) 21.3, Monocytes (%) (Auto) 6.5, Eosinophils (%) (Auto) 0.3, Basophils (%) (Auto) 1.5, Sodium Level 136, Potassium Level 4.8#, Chloride Level 102, Carbon Dioxide Level 20L, Anion Gap 14, Blood Urea Nitrogen 16, Creatinine 3.1#H, Estimat Glomerular Filtration Rate 20.8, Glucose Level 80, Calcium Level 8.6, Phosphorus Level 3.4, Magnesium Level 2.1, Random Vancomycin Level 32.4 Height (Feet): 5 Height (Inches): 7.00 Weight (Pounds): 139 Sienna Georges M.D. Aug 19, 2019 14:19
--- NOTE | 2019-08-19 15:14 | NUR ---
CASE MANAGEMENT:REVIEW SI;TOX MET ENCEPHALOPATHY. UTI. BACTEREMIA. SEPSIS. 98.5 53 20 146/68 96% ON RA WBC 11.3 CR 3.1 IS;MIDODRINE PO TID IVF NS @ 75 ML/HR ERTAPENEM IV Q24 HR KLONOPIN PO TID DILAUDID IV Q4 HR PRN HEPARIN SUBQ Q12 HRS MED SURG STATUS DCP;PATIENT IS FROM [facility]
--- NOTE | 2019-08-19 15:21 | NUR ---
NURSE NOTES: Urine collected and sent to lab; waiting for results;
[2019-08-19 15:39] LABS: APPEARANCE,URINE CLEAR; BILIRUBIN, URINE NEGATIVE (NEGATIVE); COLOR,URINE PALE YELLOW; GLUCOSE, URINE (UA) NEGATIVE (NEGATIVE); KETONES,URINE 3+ (NEGATIVE); LEUKOCYTE ESTERASE ,URINE 2+ (NEGATIVE); NITRITE,URINE NEGATIVE (NEGATIVE); PH,URINE 5 (4.5-8.0); PROTEIN,URINE NEGATIVE (NEGATIVE); UROBILINOGEN,URINE NORMAL MG/DL (0.0-1.0)
--- NOTE | 2019-08-19 15:56 | Diagnostic Imaging Report ---
EXAM: US Retroperitoneal Limited, Renal CLINICAL HISTORY: Elevated creatinine TECHNIQUE: Real-time limited ultrasound of the retroperitoneum with image documentation. COMPARISON: No relevant prior studies available. FINDINGS: Limitations: Exam degraded by patient body habitus. Aorta: Abdominal aorta is obscured by overlying bowel gas.. Inferior vena cava: Visualized portions of the IVC appear unremarkable. Right kidney: Mildly echogenic right kidney. Right kidney measures 11. 1 x 5.9 x 5.8 cm. Normal cortical thickness. No visible parenchymal lesions. No visible stones. No hydronephrosis. Left kidney: Left kidney measures 11.8 x 6.5 x 5.8 cm. Normal cortical thickness. No visible parenchymal lesions. No visible stones. No hydronephrosis. Bladder: Marcos catheter balloon and tip within the decompressed urinary bladder. IMPRESSION: Mildly echogenic right kidney. This is nonspecific but may suggest renal parenchymal disease. No hydronephrosis.
--- NOTE | 2019-08-19 16:04 | NUR ---
NURSE NOTES: Patient's Hear rate is 45; we communicated MD Amanu; no new order received; will keep monitoring.
[2019-08-19] MEDS: Linezolid 600mg/300mL Premix IVPB SCH (17:38)
[2019-08-19 18:10] LABS: ANION GAP 13 mmol/L (5-15); BLOOD UREA NITROGEN 20 mg/dL (7-18); CALCIUM 8.1 MG/DL (8.5-10.1); CARBON DIOXIDE 20 MMOL/L (21-32); CHLORIDE 105 MMOL/L (98-107); CREATININE 3.5 MG/DL (0.55-1.30); SODIUM 138 MMOL/L (136-145)
--- NOTE | 2019-08-19 18:32 | General Progress Note ---
Assessment/Plan Status: progressing Assessment/Plan: 59-year-old male with multiple medical problems including paraplegia, bedbound, dementia admitted with sepsis due to urinary tract infection and AMS. #UTI -> gram neg bacilli #Sepsis due to a UTI (fever, leukocytosis) - ID consult, Dr Freeman - s/p vanco & zosyn (08/15 - 08/16) - ertapenem per cx sens (08/17 - ) -Linezolid started - follow cxs/sens - trend chem, cbc - probiotic - supportive care - IVF - c/w home midodrine #SEAN #Hyponatremia #Hypomagnesemia - replete prn - hypovolemic - IVF - vancomycin d/norbert - avoid nephrotoxic medications - nephro consult, Dr Georges #Anemia, acute on chonic #Suspect OSMIN - suspect dilutional, no e/o active bleed - trend cbc - transfuse for Hb < 7 #Left leg pain #Hx Left leg amputation #Paraplegia - ctm - pain control #Sacral decubitus ulcer, POA - offloading per rn protocl q2h - surgery consult for wound, appreciate recs and mgt #Toxic metabolic encephalopathy - tx as above - delirium precautions FENPPX DVTPPX: SCD, HSQ GI PPX: na Fluids: mIVF x 2L Diet: regular Lines: PT/OT: deferred for now Code status: Full Dispo: SNF ([facility]) Reason for Continued Hospitalization: sepsis due to UTI 36 minutes spent on this encounter. Discussed with RN at bedside and consultants named above. 27 spent on counseling and care coordination. In additional 35 min in addition to the usual care above I spent additional time reviewing records in the EMR including physician documentation, nursing documentation, laboratory results, imaging and other clinical documentation. Time of note may not reflect time patient was seen. Subjective Date patient seen: Aug 19, 2019 Allergies: Coded Allergies: No Known Allergies (Unverified , 08/15/19) All Systems: reviewed and negative except above Subjective No acute overnight events, calm, confused Increase in creatinine, vancomycin d/norbert, linezolid started Objective Last 24 Hour Vital Signs Date Time Temp Pulse Resp B/P (MAP) Pulse Ox O2 Delivery O2 Flow Rate FiO2 08/19/19 17:30 98.4 44 18 144/75 (98) 95 08/19/19 16:30 98.4 45 18 138/61 (86) 94 08/19/19 16:00 98.6 65 18 154/75 (101) 94 08/19/19 12:57 98.0 08/19/19 12:00 98.1 61 18 138/70 (92) 97 08/19/19 09:00 Room Air 08/19/19 08:00 98.0 55 18 146/68 (94) 96 08/19/19 04:00 98.4 53 20 130/63 (85) 96 08/19/19 00:00 98.5 59 18 121/66 (84) 96 08/18/19 21:00 Room Air 08/18/19 20:00 98.4 51 20 130/65 (86) 96 Intake and Output 08/18/19 08/19/19 19:00 07:00 Intake Total 120 ml 75 ml Output Total 800 ml 400 ml Balance -680 ml -325 ml Intake Oral 120 ml IV Total 75 ml Output Urine Total 800 ml 400 ml # Voids 1 Laboratory Tests 08/19/19 06:00: White Blood Count 11.3H, Red Blood Count 4.19L, Hemoglobin 10.3L, Hematocrit 32.3L, Mean Corpuscular Volume 77L, Mean Corpuscular Hemoglobin 24.6L, Mean Corpuscular Hemoglobin Concent 31.8L, Red Cell Distribution Width 15.9H, Platelet Count 473H, Mean Platelet Volume 4.0L, Neutrophils (%) (Auto) 70.4, Lymphocytes (%) (Auto) 21.3, Monocytes (%) (Auto) 6.5, Eosinophils (%) (Auto) 0.3, Basophils (%) (Auto) 1.5, Sodium Level 136, Potassium Level 4.8#, Chloride Level 102, Carbon Dioxide Level 20L, Anion Gap 14, Blood Urea Nitrogen 16, Creatinine 3.1#H, Estimat Glomerular Filtration Rate 20.8, Glucose Level 80, Calcium Level 8.6, Phosphorus Level 3.4, Magnesium Level 2.1, Random Vancomycin Level 32.4 08/19/19 15:14: Urine Color Pale yellow, Urine Appearance Clear, Urine pH 5, Urine Specific [place] 1.010, Urine Protein Negative, Urine Glucose (UA) Negative, Urine Ketones 3+H, Urine Blood 1+H, Urine Nitrite Negative, Urine Bilirubin Negative, Urine Urobilinogen Normal, Urine Leukocyte Esterase 2+H, Urine RBC 2-4H, Urine WBC 20-30H, Urine Squamous Epithelial Cells None, Urine Bacteria ModerateH 08/19/19 17:45: Sodium Level [Pending], Potassium Level [Pending], Chloride Level [Pending], Carbon Dioxide Level [Pending], Blood Urea Nitrogen [Pending], Creatinine [ Pending], Estimat Glomerular Filtration Rate [Pending], Glucose Level [Pending] , Calcium Level [Pending] Height (Feet): 5 Height (Inches): 7.00 Weight (Pounds): 139 General Appearance: WD/WN, no apparent distress, confused Neck: non-tender, normal alignment Cardiovascular: normal rate, regular rhythm Respiratory/Chest: chest wall non-tender, lungs clear, normal breath sounds Abdomen: normal bowel sounds, non tender, soft Extremities: other - atrophic LLE Brittney Shaikh MD Aug 19, 2019 18:32
--- NOTE | 2019-08-19 19:17 | NUR ---
NURSE NOTES: Pt. received from TANJA Olivas. Pt. AAOx2, calm, on room air breathing even and unlabored, no indications of pain. IV right forearm intact and patent, running NS at 75cc/hr well. Marcos intact and secured. Colostomy noted. Bilateral soft wrist restraints, movement and sensation intact, pulses palpable. Bed low and locked, side rails x3 up, bed alarm active, and call light in reach.
--- NOTE | 2019-08-19 19:31 | NUR ---
HAND-OFF: Report given to TANJA Schwarz. Patient stabel, resting on bed; Colostomy bag emptyed;
[2019-08-20] VITALS: BP 140/73
[2019-08-20] MEDS: HYDROmorphone 1mg/ml Carpuject IVP PRN (01:19)
[2019-08-20 04:00] VITALS: BP 122/54
--- NOTE | 2019-08-20 04:46 | NUR ---
NURSE NOTES: Sacral dressing changed, small amount of sanguinous drainage. Ostomy bag changed, 50cc soft brown excrement in previous drainage bag.
--- NOTE | 2019-08-20 07:04 | NUR ---
HAND-OFF: Report given to TANJA Olivas.
[2019-08-20 07:22] LABS: BASOPHILS % (AUTO) 1.2 % (0.0-2.0); EOSINOPHILS % (AUTO) 0.1 % (0.0-3.0); HEMATOCRIT 29.8 % (42.0-52.0); HEMOGLOBIN 9.5 G/DL (14.2-18.0); LYMPHOCYTES % (AUTO) 15.9 % (20.0-45.0); MEAN CORPUSCULAR VOLUME 77 FL (80-99); MONOCYTES % (AUTO) 5.4 % (1.0-10.0); NEUTROPHILS % (AUTO) 77.4 % (45.0-75.0); PLATELET COUNT 461 K/UL (150-450); RED BLOOD COUNT 3.87 M/UL (4.70-6.10); WHITE BLOOD COUNT 12.7 K/UL (4.8-10.8)
--- NOTE | 2019-08-20 07:22 | NUR ---
NURSE NOTES: Patient awake, alert x2; on room air, no sing of distress and shortness of breath; no sing of chest pain; IV Right For-Arm 20G NS fluid running; bilateral Wrist restrains in place, good circulation, skin warm to touch; side rails up x2, breaks engaged, bed at lowest position, bed alarm on; call light within reach; will keep monitoring.
[2019-08-20 07:33] LABS: ANION GAP 13 mmol/L (5-15); BLOOD UREA NITROGEN 22 mg/dL (7-18); CALCIUM 8.2 MG/DL (8.5-10.1); CARBON DIOXIDE 21 MMOL/L (21-32); CHLORIDE 105 MMOL/L (98-107); CREATININE 3.5 MG/DL (0.55-1.30); POTASSIUM 4.8 MMOL/L (3.5-5.1); SODIUM 139 MMOL/L (136-145)
[2019-08-20 07:37] LABS: PHOSPHORUS 3.4 MG/DL (2.5-4.9)
[2019-08-20 08:00] VITALS: BP 133/70
[2019-08-20] MEDS: Ertapenem 1 GM in NS 55 ML IVPB SCH (08:35)
[2019-08-20] MEDS: clonazePAM 0.5mg tab ORAL SCH ×3 (08:35→17:30)
[2019-08-20] MEDS: Heparin 5000 units/ml inj SUBQ SCH ×2 (08:39→21:07)
[2019-08-20] MEDS: Linezolid 600mg/300mL Premix IVPB SCH ×2 (09:36→21:03)
[2019-08-20 12:00] VITALS: BP 128/73
--- NOTE | 2019-08-20 13:49 | Nephrology Progress Note ---
Assessment/Plan Plan #[place] - likely due to vancomycin toxicity #sepsis due to UTI #Hyponatremia #hypomagnesemia #history for femur amputation #Left leg pain #Hx Left leg amputation #Paraplegia #Sacral decub ulcer #anemia - Cr up to 3.1 - will Dc vanco - check renal US-> IMPRESSION: Mildly echogenic right kidney. This is nonspecific but may suggest renal parenchymal disease. No hydronephrosis. - place donohue - continue NS 75cc/hr - Decrease midodrine to 5mg TID - DC VANCO - antibiotics per D - follow urine cx - monitor mag, phos, BMP daily - surgery eval - pain control - monitor WBC - monitor UOP - avoid nephrotoxins Time spent 70 minutes, greater than 50% on care coordination and counseling Subjective ROS Limited/Unobtainable: Yes Subjective Cr up to 3.5 Dced vanco check renal US-> IMPRESSION: Mildly echogenic right kidney. This is nonspecific but may suggest renal parenchymal disease. No hydronephrosis. Objective Objective Last 24 Hour Vital Signs Date Time Temp Pulse Resp B/P (MAP) Pulse Ox O2 Delivery O2 Flow Rate FiO2 08/20/19 12:00 97.9 51 17 128/73 (91) 98 08/20/19 09:00 Room Air 08/20/19 08:00 97.6 43 18 133/70 (91) 96 08/20/19 04:00 99.3 47 19 122/54 (76) 96 08/20/19 00:00 97.8 63 19 140/73 (95) 95 08/19/19 21:00 Room Air 08/19/19 20:00 98.6 57 20 134/59 (84) 95 08/19/19 17:30 98.4 44 18 144/75 (98) 95 08/19/19 16:30 98.4 45 18 138/61 (86) 94 08/19/19 16:00 98.6 65 18 154/75 (101) 94 Intake and Output 08/19/19 08/20/19 19:00 07:00 Intake Total 1592 ml 1000 ml Output Total 1000 ml 650 ml Balance 592 ml 350 ml Intake Oral 800 ml 100 ml IV Total 792 ml 900 ml Output Urine Total 1000 ml 600 ml Stool Total 50 ml # Bowel Movements 1 Laboratory Tests 08/19/19 15:14: Urine Color Pale yellow, Urine Appearance Clear, Urine pH 5, Urine Specific [place] 1.010, Urine Protein Negative, Urine Glucose (UA) Negative, Urine Ketones 3+H, Urine Blood 1+H, Urine Nitrite Negative, Urine Bilirubin Negative, Urine Urobilinogen Normal, Urine Leukocyte Esterase 2+H, Urine RBC 2-4H, Urine WBC 20-30H, Urine Squamous Epithelial Cells None, Urine Bacteria ModerateH 08/19/19 17:45: Sodium Level 138, Potassium Level 5.0, Chloride Level 105, Carbon Dioxide Level 20L, Anion Gap 13, Blood Urea Nitrogen 20H, Creatinine 3.5H, Estimat Glomerular Filtration Rate 18.1, Glucose Level 106, Calcium Level 8.1L 08/20/19 06:20: Sodium Level 139, Potassium Level 4.8, Chloride Level 105, Carbon Dioxide Level 21, Anion Gap 13, Blood Urea Nitrogen 22H, Creatinine 3.5H, Estimat Glomerular Filtration Rate 18.1, Glucose Level 103, Calcium Level 8.2L, White Blood Count 12.7H, Red Blood Count 3.87L, Hemoglobin 9.5L, Hematocrit 29.8L, Mean Corpuscular Volume 77L, Mean Corpuscular Hemoglobin 24.6L, Mean Corpuscular Hemoglobin Concent 32.0, Red Cell Distribution Width 16.0H, Platelet Count 461H , Mean Platelet Volume 4.2L, Neutrophils (%) (Auto) 77.4H, Lymphocytes (%) (Auto ) 15.9L, Monocytes (%) (Auto) 5.4, Eosinophils (%) (Auto) 0.1, Basophils (%) ( Auto) 1.2, Phosphorus Level 3.4, Magnesium Level 2.0 Height (Feet): 5 Height (Inches): 7.00 Weight (Pounds): 139 Sienna Georges M.D. Aug 20, 2019 13:49
--- NOTE | 2019-08-20 14:59 | General Progress Note ---
Assessment/Plan Status: progressing Assessment/Plan: 59-year-old male with multiple medical problems including paraplegia, bedbound, dementia admitted with sepsis due to urinary tract infection and AMS. #UTI -> gram neg bacilli #Sepsis due to a UTI (fever, leukocytosis) - ID consult, Dr Freeman - s/p vanco & zosyn (08/15 - 08/16) - ertapenem per cx sens (08/17 - ) -Linezolid (08/18- - follow cxs/sens - trend chem, cbc - probiotic - supportive care - IVF - c/w home midodrine #SEAN #Hyponatremia #Hypomagnesemia - replete prn - hypovolemic - IVF per nephrology - vancomycin d/norbert 08/19/19 - avoid nephrotoxic medications - nephro consult, Dr Georges #Anemia, acute on chonic #Suspect OSMIN - suspect dilutional, no e/o active bleed - trend cbc - transfuse for Hb < 7 #Left leg pain #Hx Left leg amputation #Paraplegia - ctm - pain control #Sacral decubitus ulcer, POA - offloading per rn protocl q2h - surgery consult for wound, appreciate recs and mgt #Toxic metabolic encephalopathy - tx as above - delirium precautions FENPPX DVTPPX: SCD, HSQ GI PPX: na Fluids: mIVF x 2L Diet: regular Lines: PT/OT: deferred for now Code status: Full Dispo: SNF ([facility]) Reason for Continued Hospitalization: sepsis due to UTI 36 minutes spent on this encounter. Discussed with RN at bedside and consultants named above. 27 spent on counseling and care coordination. In additional 35 min in addition to the usual care above I spent additional time reviewing records in the EMR including physician documentation, nursing documentation, laboratory results, imaging and other clinical documentation. Time of note may not reflect time patient was seen. Subjective Date patient seen: Aug 20, 2019 ROS Limited/Unobtainable: Yes Allergies: Coded Allergies: No Known Allergies (Unverified , 08/15/19) Subjective No acute overnight events, calm, confused, poor PO intake Creatinine 3.5, vancomycin d/norbert 08/19/19 Objective Last 24 Hour Vital Signs Date Time Temp Pulse Resp B/P (MAP) Pulse Ox O2 Delivery O2 Flow Rate FiO2 6/7/20 12:00 97.9 51 17 128/73 (91) 98 08/20/19 09:00 Room Air 08/20/19 08:00 97.6 43 18 133/70 (91) 96 08/20/19 04:00 99.3 47 19 122/54 (76) 96 08/20/19 00:00 97.8 63 19 140/73 (95) 95 08/19/19 21:00 Room Air 08/19/19 20:00 98.6 57 20 134/59 (84) 95 08/19/19 17:30 98.4 44 18 144/75 (98) 95 08/19/19 16:30 98.4 45 18 138/61 (86) 94 08/19/19 16:00 98.6 65 18 154/75 (101) 94 Intake and Output 08/19/19 08/20/19 19:00 07:00 Intake Total 1592 ml 1000 ml Output Total 1000 ml 650 ml Balance 592 ml 350 ml Intake Oral 800 ml 100 ml IV Total 792 ml 900 ml Output Urine Total 1000 ml 600 ml Stool Total 50 ml # Bowel Movements 1 Laboratory Tests 08/19/19 15:14: Urine Color Pale yellow, Urine Appearance Clear, Urine pH 5, Urine Specific [place] 1.010, Urine Protein Negative, Urine Glucose (UA) Negative, Urine Ketones 3+H, Urine Blood 1+H, Urine Nitrite Negative, Urine Bilirubin Negative, Urine Urobilinogen Normal, Urine Leukocyte Esterase 2+H, Urine RBC 2-4H, Urine WBC 20-30H, Urine Squamous Epithelial Cells None, Urine Bacteria ModerateH 08/19/19 17:45: Sodium Level 138, Potassium Level 5.0, Chloride Level 105, Carbon Dioxide Level 20L, Anion Gap 13, Blood Urea Nitrogen 20H, Creatinine 3.5H, Estimat Glomerular Filtration Rate 18.1, Glucose Level 106, Calcium Level 8.1L 08/20/19 06:20: Sodium Level 139, Potassium Level 4.8, Chloride Level 105, Carbon Dioxide Level 21, Anion Gap 13, Blood Urea Nitrogen 22H, Creatinine 3.5H, Estimat Glomerular Filtration Rate 18.1, Glucose Level 103, Calcium Level 8.2L, White Blood Count 12.7H, Red Blood Count 3.87L, Hemoglobin 9.5L, Hematocrit 29.8L, Mean Corpuscular Volume 77L, Mean Corpuscular Hemoglobin 24.6L, Mean Corpuscular Hemoglobin Concent 32.0, Red Cell Distribution Width 16.0H, Platelet Count 461H , Mean Platelet Volume 4.2L, Neutrophils (%) (Auto) 77.4H, Lymphocytes (%) (Auto ) 15.9L, Monocytes (%) (Auto) 5.4, Eosinophils (%) (Auto) 0.1, Basophils (%) ( Auto) 1.2, Phosphorus Level 3.4, Magnesium Level 2.0 Height (Feet): 5 Height (Inches): 7.00 Weight (Pounds): 139 Brittney Shaikh MD Aug 20, 2019 14:59
--- NOTE | 2019-08-20 15:24 | Infectious Diseases Prog Note ---
Assessment/Plan Assessment/Plan ASSESSMENT AND PLAN: 1. 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 endocarditis, ? mrsa/ proteus sacral wound infection, sepsis, leukocytosis, fevers, mrsa colonization, ARF - ertapenem and zyvox (vancomycin discontinued) - surveillance blood cultures - negative, labs, check TTE - wound care per surgery - monitor labs 2. Paraplegia. 3. Chronic catheter. 4. Sacral wound. 5. Anemia. 6. No history of diabetes or hypertension. 7. Pain management per primary care team. 8. No known allergies. 9. Social history is negative. 10. Family history is contributory. 11. MAR was noted. 12. Case discussed with RN. Subjective Constitutional: Reports: fatigue; Denies: fever HEENT: Denies: congestion Respiratory: Denies: shortness of breath Cardiovascular: Denies: chest pain Gastrointestinal/Abdominal: Denies: nausea, vomiting, diarrhea Genitourinary: Reports: other - + donohue Neurologic: Reports: weakness, other Psychiatric: Reports: other - NA Skin: Denies: rash Hematologic: Denies: bleeding Musculoskeletal: Reports: other - NA Allergies: Coded Allergies: No Known Allergies (Unverified , 08/15/19) Objective Vital Signs Last 24 Hour Vital Signs Date Time Temp Pulse Resp B/P (MAP) Pulse Ox O2 Delivery O2 Flow Rate FiO2 08/20/19 12:00 97.9 51 17 128/73 (91) 98 08/20/19 09:00 Room Air 08/20/19 08:00 97.6 43 18 133/70 (91) 96 08/20/19 04:00 99.3 47 19 122/54 (76) 96 08/20/19 00:00 97.8 63 19 140/73 (95) 95 08/19/19 21:00 Room Air 08/19/19 20:00 98.6 57 20 134/59 (84) 95 08/19/19 17:30 98.4 44 18 144/75 (98) 95 08/19/19 16:30 98.4 45 18 138/61 (86) 94 08/19/19 16:00 98.6 65 18 154/75 (101) 94 Height (Feet): 5 Height (Inches): 7.00 Weight (Pounds): 139 General Appearance: no acute distress HEENT: normocephalic, atraumatic, anicteric, mucous membranes moist Respiratory/Chest: lungs clear, normal breath sounds, no respiratory distress, no accessory muscle use Cardiovascular: normal rate, regular rhythm, no gallop/murmur, no JVD Abdomen: normal bowel sounds, soft, non tender, no organomegaly, non distended Genitourinary: other - + donohue Extremities: no cyanosis Skin: no rash Neurologic/Psychiatric: other - lethargic, weak Lymphatic: no neck adenopathy Musculoskeletal: no effusion Objective Chest x-ray - 08/15/19 - Procedure: XRAY Chest 1v Procedure: XRAY Chest 1v Reason for study: Chest pain Comparison films: None. FINDINGS: A single one view chest is obtained. Vascularity is normal. The lung hess are clear bilaterally. Cardiac and mediastinal silhouette are within normal limits. CP angles are sharp. The bony thorax appear unremarkable. IMPRESSION: NO ACUTE CARDIOPULMONARY DISEASE. Microbiology Date/Time Source Procedure Growth Status 08/18/19 16:45 Blood Blood Culture - Preliminary NO GROWTH AFTER 24 HOURS Resulted 08/18/19 16:30 Blood Blood Culture - Preliminary NO GROWTH AFTER 24 HOURS Resulted 08/17/19 19:40 Blood Blood Culture - Preliminary NO GROWTH AFTER 48 HOURS Resulted 08/17/19 19:30 Blood Blood Culture - Preliminary NO GROWTH AFTER 48 HOURS Resulted 08/19/19 15:14 Urine,Clean Catch Urine Culture - Preliminary NO GROWTH Resulted Laboratory Tests Test 08/19/19 17:45 08/20/19 06:20 Sodium Level 138 MMOL/L (136-145) 139 MMOL/L (136-145) Potassium Level 5.0 MMOL/L (3.5-5.1) 4.8 MMOL/L (3.5-5.1) Chloride Level 105 MMOL/L (98-107) 105 MMOL/L (98-107) Carbon Dioxide Level 20 MMOL/L (21-32) L 21 MMOL/L (21-32) Anion Gap 13 mmol/L (5-15) 13 mmol/L (5-15) Blood Urea Nitrogen 20 mg/dL (7-18) H 22 mg/dL (7-18) H Creatinine 3.5 MG/DL (0.55-1.30) H 3.5 MG/DL (0.55-1.30) H Estimat Glomerular Filtration Rate 18.1 mL/min (>60) 18.1 mL/min (>60) Glucose Level 106 MG/DL (74-106) 103 MG/DL (74-106) Calcium Level 8.1 MG/DL (8.5-10.1) L 8.2 MG/DL (8.5-10.1) L White Blood Count 12.7 K/UL (4.8-10.8) H Red Blood Count 3.87 M/UL (4.70-6.10) L Hemoglobin 9.5 G/DL (14.2-18.0) L Hematocrit 29.8 % (42.0-52.0) L Mean Corpuscular Volume 77 FL (80-99) L Mean Corpuscular Hemoglobin 24.6 PG (27.0-31.0) L Mean Corpuscular Hemoglobin Concent 32.0 G/DL (32.0-36.0) Red Cell Distribution Width 16.0 % (11.6-14.8) H Platelet Count 461 K/UL (150-450) H Mean Platelet Volume 4.2 FL (6.5-10.1) L Neutrophils (%) (Auto) 77.4 % (45.0-75.0) H Lymphocytes (%) (Auto) 15.9 % (20.0-45.0) L Monocytes (%) (Auto) 5.4 % (1.0-10.0) Eosinophils (%) (Auto) 0.1 % (0.0-3.0) Basophils (%) (Auto) 1.2 % (0.0-2.0) Phosphorus Level 3.4 MG/DL (2.5-4.9) Magnesium Level 2.0 MG/DL (1.8-2.4) Current Medications Medications (Trade) Dose Ordered Sig/Mya Route PRN Reason Start Time Stop Time Status Last Admin Dose Admin Acetaminophen (Tylenol) 650 mg Q6H PRN ORAL Temp >100.5 08/16/19 00:45 09/15/19 00:44 08/17/19 15:58 Clonazepam (KlonoPIN) 0.5 mg TID ORAL 08/17/19 13:00 08/24/19 12:59 08/20/19 12:45 Ertapenem 500 gm/ Sodium Chloride 55 ml @ 110 mls/hr Q24H IVPB 08/21/19 08:00 08/25/19 07:59 UNV Heparin Sodium (Porcine) (Heparin 5000 units/ml) 5,000 units EVERY 12 HOURS SUBQ 08/16/19 09:00 09/30/19 08:59 08/20/19 08:39 Hydromorphone HCl (Dilaudid) 0.5 mg Q6H PRN IVP moderate pain 08/15/19 21:45 08/22/19 21:44 Hydromorphone HCl (Dilaudid) 1 mg Q4H PRN IVP Severe Pain (Pain Scale 7-10) 08/16/19 10:30 08/23/19 10:29 08/20/19 01:19 Linezolid 300 ml @ 300 mls/hr Q12HR IVPB 08/19/19 18:00 08/26/19 17:59 08/20/19 09:36 Midodrine (Pro-Amatine) 5 mg THREE TIMES A DAY ORAL 08/19/19 18:00 11/14/19 08:59 08/20/19 12:45 Sodium Chloride 1,000 ml @ 75 mls/hr [id number] IV 08/19/19 14:30 09/18/19 14:29 08/20/19 03:13 Sharif Painting MD Aug 20, 2019 15:23
[2019-08-20 16:00] VITALS: BP 127/81
--- NOTE | 2019-08-20 17:49 | Surgery Progress Note ---
Surgery Progress Note Subjective Additional Comments leukocytosis worsening labs renal US noted Objective Last 24 Hour Vital Signs Date Time Temp Pulse Resp B/P (MAP) Pulse Ox O2 Delivery O2 Flow Rate FiO2 08/20/19 16:00 98.1 52 18 127/81 (96) 97 08/20/19 12:00 97.9 51 17 128/73 (91) 98 08/20/19 09:00 Room Air 08/20/19 08:00 97.6 43 18 133/70 (91) 96 08/20/19 04:00 99.3 47 19 122/54 (76) 96 08/20/19 00:00 97.8 63 19 140/73 (95) 95 08/19/19 21:00 Room Air 08/19/19 20:00 98.6 57 20 134/59 (84) 95 I&O Intake and Output 08/19/19 08/20/19 19:00 07:00 Intake Total 1592 ml 1000 ml Output Total 1000 ml 650 ml Balance 592 ml 350 ml Intake Oral 800 ml 100 ml IV Total 792 ml 900 ml Output Urine Total 1000 ml 600 ml Stool Total 50 ml # Bowel Movements 1 Dressing: other Wound: other Drains: other Cardiovascular: RSR Respiratory: decreased breath sounds Abdomen: soft, non-tender, present bowel sounds Extremities: no cyanosis Laboratory Tests Test 08/20/19 06:20 White Blood Count 12.7 K/UL (4.8-10.8) H Red Blood Count 3.87 M/UL (4.70-6.10) L Hemoglobin 9.5 G/DL (14.2-18.0) L Hematocrit 29.8 % (42.0-52.0) L Mean Corpuscular Volume 77 FL (80-99) L Mean Corpuscular Hemoglobin 24.6 PG (27.0-31.0) L Mean Corpuscular Hemoglobin Concent 32.0 G/DL (32.0-36.0) Red Cell Distribution Width 16.0 % (11.6-14.8) H Platelet Count 461 K/UL (150-450) H Mean Platelet Volume 4.2 FL (6.5-10.1) L Neutrophils (%) (Auto) 77.4 % (45.0-75.0) H Lymphocytes (%) (Auto) 15.9 % (20.0-45.0) L Monocytes (%) (Auto) 5.4 % (1.0-10.0) Eosinophils (%) (Auto) 0.1 % (0.0-3.0) Basophils (%) (Auto) 1.2 % (0.0-2.0) Sodium Level 139 MMOL/L (136-145) Potassium Level 4.8 MMOL/L (3.5-5.1) Chloride Level 105 MMOL/L (98-107) Carbon Dioxide Level 21 MMOL/L (21-32) Anion Gap 13 mmol/L (5-15) Blood Urea Nitrogen 22 mg/dL (7-18) H Creatinine 3.5 MG/DL (0.55-1.30) H Estimat Glomerular Filtration Rate 18.1 mL/min (>60) Glucose Level 103 MG/DL (74-106) Calcium Level 8.2 MG/DL (8.5-10.1) L Phosphorus Level 3.4 MG/DL (2.5-4.9) Magnesium Level 2.0 MG/DL (1.8-2.4) Plan Problems: (1) Left leg pain Assessment & Plan: Patient presented admission complaining of left leg pain. On evaluation there is deformity left lower extremity plain films reviewed and obvious deformity noted as the femoral proximal is dislocated from the shaft. Patient is nonambulatory at baseline per report. He is somewhat cooperative examined with exam but a poor historian. Multiple skin concerns identified. Pt presented on admission with multiple Pressure Injuries, Bilat foot drop. Historical scar noted to L Hip Large Full Thickness Pressure Injury Buttocks with undermining and tunneling. Wound has irregular borders extends from Sacrum to L ischium and base of Scrotum,laterally from Outer R to Outer L gluteus.(L)18.9cm x (W)18.5cm x (D) 3.7cm, undermining clockwise 10-3 by 5.9cm @3o'clock,Tunneling clockwise @6o' clock by 2.7cm.Scattered Biofilm with [place] granulation at base of wound ,bone is palpable in tunneled and undermined areas. At distal base of wound, at scrotum is an area of slough-size of Quarter. Small amt non-odorous serous exudate.Periwound is pink with scattered brownish skin tone.( Full thickness Pressure injury R Ischium(L)9.5cm x (W)9.7cm x (D)4.2cm, Tunneling clockwise into perineum at 7o'clock by 5.3cm. Base of wound has scattered slough. Bone is palpable . Small amt seropurulent exudate. Mild odor which resolved post cleansing of wound.Erythema noted along edges. Additional area of slough noted periwound along borders clockwise @3-4o'clock. Non-Blanching erythema noted to Protruding bony prominence L Hip. Dry, loosening eschar lateral L tibia. (L)1.1cm x (W)0.4cm.[place] epithelial along borders. Stable dry, brown eschar noted to medial L tibia(L)4.3cm x (W)1cm. Stable dry eschar noted to Plantar L Heel. (L)4.5cm x (W)2cm. Periwound is boggy but blanchable.Historical scar alson noted periwound. Full thickness pressure injury Plantar R Heel (L)1.2cm x (W)2.5cm x (D)0.2cm. 80 % pink granulation,20% slough at base of wound. Edges are macerated. Small amt non-odorous serous exudate. Periwound is boggy but blanchable. Tx.Plan: Cleanse wound Buttocks with Saline. Loosely Pack wound including undermined areas with Hydrogel impregnated Kerlix.Apply Moisture Barrier Paste along borders. Cover with ABD Pads and secure with Tegaderm Daily and prn. Cleanse R Ischial Wound with Saline. Loosely pack with Hydrogel Impregnated Kerlix. Apply Moisture Barrier Periwound. Cover with ABD Pad and secure with Tegaderm Daily and prn. Apply Cavilon Skin Barrier to L Hip Bony Protrusion (Do Not Rub/ Massage area). Cover with Optifoam drsg. Change every 3 days and prn. Apply Betadine to Medial and lateral L Tibial wounds. Cover with Optifoam drsg every 3 days and prn. Apply Betadine to Plantar L Heel wound. Cover with Optifoam drsg. Change every 3 days and prn. Apply Betadine to Plantar R heel wound. Cover with Optifoam drsg every 3 days and prn. Reposition at least every 2hours or as tolerated. Place pillow between knees. Off-Load Heels with Pillow. APM/SUMI Mattress overlay. (2) Femur fracture Assessment & Plan: There is an old amputation defect across the mid femoral shaft. The mid to distal femur is unremarkable with normal articulation at the knee. The proximal femur including the femoral head is not visualized likely resected. There is deformity of the left hip/acetabulum likely posttraumatic. Adjacent heterotopic ossification noted. Surrounding soft tissue is normal. 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 can be done ioutpatient as this is chronic ostomy prolapse stable loop and functional Cornelius Salgado Aug 20, 2019 17:49
--- NOTE | 2019-08-20 18:30 | NUR ---
NURSE NOTES: Patient's Colostomy bag emptied;
--- NOTE | 2019-08-20 19:30 | NUR ---
NURSE NOTES: RECEIVED PATIENT FROM TANJA RUTHERFORD. PATIENT IS ASLEEP, ON ROOM AIR, VSS, NO ACUTE DISTRESS NOTED. COLOSTOMY ON LEFT LOWER QUADRANT IS INTACT, BROWN LIQUID NOTED. CHAVEZ CATH PRESENT, DRAINING WELL, YELLOW URINE NOTED. CHAVEZ ANCHOR IN PLACE. WOUND DRESSINGS INTACT AND DRY. PIV ON RIGHT FOREARM INTACT AND PATENT RUNNING NS @75ML/HR. BED IS LOCKED AND LOW, BED ALARMS ACTIVE, SIDE RAILS UPX2 AND CALL LIGHT IS WITHIN REACH. WILL CONTINUE TO MONITOR.
--- NOTE | 2019-08-20 19:32 | NUR ---
HAND-OFF: Report given to TANJA Maria.
--- NOTE | 2019-08-20 19:35 | NUR ---
NURSE NOTES: PT IS ON BILATERAL SOFT WRIST RESTRAINTS. PULSES PRESENT, NO REDNESS OR SWELLING AT SITES. WILL CONTINUE TO MONITOR.
[2019-08-20 20:00] VITALS: BP 154/65
[2019-08-21] VITALS: BP 122/57
[2019-08-21 04:00] VITALS: BP 132/65
--- NOTE | 2019-08-21 05:00 | NUR ---
NURSE NOTES: PERFORMED WOUND CARE AND CHANGED DRESSINGS ON SACRAL, BUTTOCKS AND ISCHIUM. MODERATE SEROUS DRAINAGE NOTED.
--- NOTE | 2019-08-21 06:29 | NUR ---
NURSE NOTES: EMPTIED 30ML FROM COLOSTOMY BAG.
[2019-08-21 07:11] LABS: BASOPHILS % (AUTO) 0.8 % (0.0-2.0); EOSINOPHILS % (AUTO) 0.1 % (0.0-3.0); HEMATOCRIT 32.7 % (42.0-52.0); HEMOGLOBIN 10.6 G/DL (14.2-18.0); LYMPHOCYTES % (AUTO) 10.9 % (20.0-45.0); MEAN CORPUSCULAR VOLUME 76 FL (80-99); MONOCYTES % (AUTO) 4.5 % (1.0-10.0); NEUTROPHILS % (AUTO) 83.8 % (45.0-75.0); PLATELET COUNT 474 K/UL (150-450); RED BLOOD COUNT 4.29 M/UL (4.70-6.10); RED CELL DISTRIBUTION WIDTH 15.9 % (11.6-14.8); WHITE BLOOD COUNT 14.5 K/UL (4.8-10.8)
[2019-08-21 07:16] LABS: ANION GAP 14 mmol/L (5-15); BLOOD UREA NITROGEN 23 mg/dL (7-18); CALCIUM 8.2 MG/DL (8.5-10.1); CARBON DIOXIDE 21 MMOL/L (21-32); CHLORIDE 105 MMOL/L (98-107); CREATININE 3.3 MG/DL (0.55-1.30); PHOSPHORUS 3.6 MG/DL (2.5-4.9); POTASSIUM 4.1 MMOL/L (3.5-5.1); SODIUM 140 MMOL/L (136-145)
--- NOTE | 2019-08-21 07:25 | NUR ---
NURSE NOTES: Patient awake, alert x2; on room air, no sing of distress and shortness of breath; no sing of chest pain; IV Right For-Arm NS at 75cc running; Bilateral Soft Restrain in place, renewed last night, skin warm to touch, good circulation; Colostomy bag in place; noted dressing on sacral and heels, dry and intact; side rails up x2, breaks engaged, bed at lowest position, bed alarm on; call light within reach; will keep monitoring.
--- NOTE | 2019-08-21 07:35 | NUR ---
HAND-OFF: Report given to TANJA Olivas.
[2019-08-21 08:00] VITALS: BP 140/69
[2019-08-21] MEDS ORDERED: NS IVPB SCH (08:00)
[2019-08-21] MEDS ORDERED: ERTAPENEM IVPB SCH (08:00)
[2019-08-21] MEDS: clonazePAM 0.5mg tab ORAL SCH ×3 (09:04→17:49)
[2019-08-21] MEDS: Heparin 5000 units/ml inj SUBQ SCH ×2 (09:07→20:54)
[2019-08-21] MEDS: Linezolid 600mg/300mL Premix IVPB SCH ×2 (09:12→20:53)
[2019-08-21] MEDS: Ertapenem 500mg ivpb (q24h) IV SCH ×2 (10:48)
--- NOTE | 2019-08-21 11:06 | NUR ---
RD ASSESSMENT & RECOMMENDATIONS SEE CARE ACTIVITY FOR COMPLETE ASSESSMENT DAILY ESTIMATED NEEDS: Needs based on Advanced wounds/ 54kg 30-35 kcals/kg 4467-1516 total kcals 1.5-2.0 g protein/kg 81-108 g total protein 25-30 mL/kg 6428-3396 total fluid mLs NUTRITION DIAGNOSIS: Increased kcal/prot/micronutrients needs R/T wound healing as evidenced by pt admitted w/ advanced wounds, including full thickness wounds @ buttocks, R ischium (tunneling, bone palpable), and plantar R Heel. CURRENT DIET:REGULAR, mech soft ground PO DIET RECOMMENDATIONS: REGULAR, texture as tolerated or per TRAVEL MED SURG RN ENTERAL NUTRITION RECOMMENDATIONS: CONSULT RD IF NON ORAL FEEDS ARE PART OF POC ADDITIONAL RECOMMENDATIONS: * Per SNF: HT=66" RS=689jns (as of 08/14/19) -> rec weekly calibrated bedscale wt * Ensure Enlive TID w/ meals (350kcal/20g prot each) * Monitor PO intake closely- refusing meals noted, encourage oral intake -> consider D5 w/ current poor po intake, monitor for hypoglycemia * Wound healing: add MVI w/ mineral 1 tab QD, Vit C 500mg BID ZnSO4 220mg QD x 10 days, Amari 1pkt BID as tolerated
--- NOTE | 2019-08-21 11:47 | Surgery Progress Note ---
Surgery Progress Note Subjective Additional Comments leukocytosis h/h stable renal function improving Objective Last 24 Hour Vital Signs Date Time Temp Pulse Resp B/P (MAP) Pulse Ox O2 Delivery O2 Flow Rate FiO2 08/21/19 09:00 Room Air 08/21/19 08:00 99.3 51 20 140/69 (92) 97 08/21/19 04:00 99.0 55 20 132/65 (87) 96 08/21/19 00:00 99.8 48 21 122/57 (78) 94 08/20/19 21:00 Room Air 08/20/19 20:00 99.6 50 20 154/65 (94) 95 08/20/19 16:00 98.1 52 18 127/81 (96) 97 08/20/19 12:00 97.9 51 17 128/73 (91) 98 I&O Intake and Output 08/20/19 08/21/19 19:00 07:00 Intake Total 1210 ml 1050 ml Output Total 800 ml 350 ml Balance 410 ml 700 ml IV Total 1010 ml 1050 ml Other 200 ml Output Urine Total 800 ml 350 ml # Voids 1 Dressing: saturated Wound: other Cardiovascular: RSR Respiratory: decreased breath sounds Abdomen: soft, non-tender, present bowel sounds Extremities: no tenderness, no cyanosis, other Laboratory Tests Test 08/21/19 06:05 White Blood Count 14.5 K/UL (4.8-10.8) H Red Blood Count 4.29 M/UL (4.70-6.10) L Hemoglobin 10.6 G/DL (14.2-18.0) L Hematocrit 32.7 % (42.0-52.0) L Mean Corpuscular Volume 76 FL (80-99) L Mean Corpuscular Hemoglobin 24.6 PG (27.0-31.0) L Mean Corpuscular Hemoglobin Concent 32.4 G/DL (32.0-36.0) Red Cell Distribution Width 15.9 % (11.6-14.8) H Platelet Count 474 K/UL (150-450) H Mean Platelet Volume 4.0 FL (6.5-10.1) L Neutrophils (%) (Auto) 83.8 % (45.0-75.0) H Lymphocytes (%) (Auto) 10.9 % (20.0-45.0) L Monocytes (%) (Auto) 4.5 % (1.0-10.0) Eosinophils (%) (Auto) 0.1 % (0.0-3.0) Basophils (%) (Auto) 0.8 % (0.0-2.0) Sodium Level 140 MMOL/L (136-145) Potassium Level 4.1 MMOL/L (3.5-5.1) Chloride Level 105 MMOL/L (98-107) Carbon Dioxide Level 21 MMOL/L (21-32) Anion Gap 14 mmol/L (5-15) Blood Urea Nitrogen 23 mg/dL (7-18) H Creatinine 3.3 MG/DL (0.55-1.30) H Estimat Glomerular Filtration Rate 19.4 mL/min (>60) Glucose Level 102 MG/DL (74-106) Calcium Level 8.2 MG/DL (8.5-10.1) L Phosphorus Level 3.6 MG/DL (2.5-4.9) Magnesium Level 1.8 MG/DL (1.8-2.4) Plan Problems: (1) Left leg pain Assessment & Plan: Patient presented admission complaining of left leg pain. On evaluation there is deformity left lower extremity plain films reviewed and obvious deformity noted as the femoral proximal is dislocated from the shaft. Patient is nonambulatory at baseline per report. He is somewhat cooperative examined with exam but a poor historian. Multiple skin concerns identified. Pt presented on admission with multiple Pressure Injuries, Bilat foot drop. Historical scar noted to L Hip Large Full Thickness Pressure Injury Buttocks with undermining and tunneling. Wound has irregular borders extends from Sacrum to L ischium and base of Scrotum,laterally from Outer R to Outer L gluteus.(L)18.9cm x (W)18.5cm x (D) 3.7cm, undermining clockwise 10-3 by 5.9cm @3o'clock,Tunneling clockwise @6o' clock by 2.7cm.Scattered Biofilm with [place] granulation at base of wound ,bone is palpable in tunneled and undermined areas. At distal base of wound, at scrotum is an area of slough-size of Quarter. Small amt non-odorous serous exudate.Periwound is pink with scattered brownish skin tone.( Full thickness Pressure injury R Ischium(L)9.5cm x (W)9.7cm x (D)4.2cm, Tunneling clockwise into perineum at 7o'clock by 5.3cm. Base of wound has scattered slough. Bone is palpable . Small amt seropurulent exudate. Mild odor which resolved post cleansing of wound.Erythema noted along edges. Additional area of slough noted periwound along borders clockwise @3-4o'clock. Non-Blanching erythema noted to Protruding bony prominence L Hip. Dry, loosening eschar lateral L tibia. (L)1.1cm x (W)0.4cm.[place] epithelial along borders. Stable dry, brown eschar noted to medial L tibia(L)4.3cm x (W)1cm. Stable dry eschar noted to Plantar L Heel. (L)4.5cm x (W)2cm. Periwound is boggy but blanchable.Historical scar alson noted periwound. Full thickness pressure injury Plantar R Heel (L)1.2cm x (W)2.5cm x (D)0.2cm. 80 % pink granulation,20% slough at base of wound. Edges are macerated. Small amt non-odorous serous exudate. Periwound is boggy but blanchable. Tx.Plan: Cleanse wound Buttocks with Saline. Loosely Pack wound including undermined areas with Hydrogel impregnated Kerlix.Apply Moisture Barrier Paste along borders. Cover with ABD Pads and secure with Tegaderm Daily and prn. Cleanse R Ischial Wound with Saline. Loosely pack with Hydrogel Impregnated Kerlix. Apply Moisture Barrier Periwound. Cover with ABD Pad and secure with Tegaderm Daily and prn. Apply Cavilon Skin Barrier to L Hip Bony Protrusion (Do Not Rub/ Massage area). Cover with Optifoam drsg. Change every 3 days and prn. Apply Betadine to Medial and lateral L Tibial wounds. Cover with Optifoam drsg every 3 days and prn. Apply Betadine to Plantar L Heel wound. Cover with Optifoam drsg. Change every 3 days and prn. Apply Betadine to Plantar R heel wound. Cover with Optifoam drsg every 3 days and prn. Reposition at least every 2hours or as tolerated. Place pillow between knees. Off-Load Heels with Pillow. APM/SUMI Mattress overlay. (2) Femur fracture Assessment & Plan: There is an old amputation defect across the mid femoral shaft. The mid to distal femur is unremarkable with normal articulation at the knee. The proximal femur including the femoral head is not visualized likely resected. There is deformity of the left hip/acetabulum likely posttraumatic. Adjacent heterotopic ossification noted. Surrounding soft tissue is normal. 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 can be done ioutpatient as this is chronic ostomy prolapse stable loop and functional Cornelius Salgado Aug 21, 2019 11:47
[2019-08-21 12:00] VITALS: BP 130/75
--- NOTE | 2019-08-21 12:35 | General Progress Note ---
Assessment/Plan Problem List: (1) Urinary tract infection ICD Codes: N39.0 - Urinary tract infection, site not specified SNOMED: 35846409 (2) Paraplegia ICD Codes: G82.20 - Paraplegia, unspecified SNOMED: 62820849 (3) Sacral decubitus ulcer ICD Codes: L89.159 - Pressure ulcer of sacral region, unspecified stage SNOMED: 872989592 Status: stable, progressing Assessment/Plan: 59-year-old male with multiple medical problems including paraplegia, bedbound, dementia admitted with sepsis due to urinary tract infection and AMS. #UTI -> gram neg bacilli #Sepsis due to a UTI (fever, leukocytosis) - ID consult, Dr Freeman - s/p vanco & zosyn (08/15 - 08/16) - ertapenem per cx sens (08/17 - ) -Linezolid (08/18- - follow cxs/sens - trend chem, cbc - probiotic - supportive care - IVF - c/w home midodrine #SEAN #Hyponatremia #Hypomagnesemia - replete prn - hypovolemic - IVF per nephrology - vancomycin d/norbert 08/19/19 - avoid nephrotoxic medications - nephro consult, Dr Georges #Anemia, acute on chonic #Suspect OSMIN - suspect dilutional, no e/o active bleed - trend cbc - transfuse for Hb < 7 #Left leg pain #Hx Left leg amputation #Paraplegia - ctm - pain control #Sacral decubitus ulcer, POA - offloading per rn protocl q2h - surgery consult for wound, appreciate recs and mgt #Toxic metabolic encephalopathy - tx as above - delirium precautions FENPPX DVTPPX: SCD, HSQ GI PPX: na Fluids: mIVF x 2L Diet: regular Lines: PT/OT: deferred for now Code status: Full Dispo: SNF ([facility]) Reason for Continued Hospitalization: sepsis due to UTI 36 minutes spent on this encounter. 24 spent on counseling and care coordination. In additional 35 min in addition to the usual care above I spent additional time reviewing records in the EMR including physician documentation, nursing documentation, laboratory results, imaging and other clinical documentation. Time of note may not reflect time patient was seen. Subjective Date patient seen: Aug 21, 2019 Time patient seen: 12:00 ROS Limited/Unobtainable: No Constitutional: Denies: no symptoms, chills, diaphoresis, fever, malaise, weakness, other HEENT: Denies: no symptoms, eye pain, blurred vision, tearing, double vision, ear pain, ear discharge, nose pain, nose congestion, throat pain, throat swelling, mouth pain, mouth swelling, other Cardiovascular: Denies: no symptoms, chest pain, edema, irregular heart rate, lightheadedness, palpitations, syncope, other Respiratory: Denies: no symptoms, cough, orthopnea, shortness of breath, SOB with excertion, SOB at rest, sputum, stridor, wheezing, other Gastrointestinal/Abdominal: Denies: no symptoms, abdomen distended, abdominal pain, black stools, tarry stools, blood in stool, constipated, diarrhea, difficulty swallowing, nausea, poor appetite, poor fluid intake, rectal bleeding , vomiting, other Genitourinary: Denies: no symptoms, burning, discharge, frequency, flank pain, hematuria, incontinence, pain, urgency, other Neurologic/Psychiatric: Denies: no symptoms, anxiety, depressed, emotional problems, headache, numbness, paresthesia, pre-existing deficit, seizure, tingling, tremors, weakness, other Endocrine: Denies: no symptoms, excessive sweating, flushing, intolerance to cold, intolerance to heat, increased hunger, increased thirst, increased urine, unexplained weight gain, unexplained weight loss, other Hematologic/Lymphatic: Denies: no symptoms, anemia, easy bleeding, easy bruising, other Allergies: Coded Allergies: No Known Allergies (Unverified , 08/15/19) Subjective resting in bed, moaning, but denies any pain. Objective Last 24 Hour Vital Signs Date Time Temp Pulse Resp B/P (MAP) Pulse Ox O2 Delivery O2 Flow Rate FiO2 08/21/19 12:00 99.7 50 20 130/75 (93) 95 08/21/19 09:00 Room Air 08/21/19 08:00 99.3 51 20 140/69 (92) 97 08/21/19 04:00 99.0 55 20 132/65 (87) 96 08/21/19 00:00 99.8 48 21 122/57 (78) 94 08/20/19 21:00 Room Air 08/20/19 20:00 99.6 50 20 154/65 (94) 95 08/20/19 16:00 98.1 52 18 127/81 (96) 97 Intake and Output 08/20/19 08/21/19 19:00 07:00 Intake Total 1210 ml 1050 ml Output Total 800 ml 350 ml Balance 410 ml 700 ml IV Total 1010 ml 1050 ml Other 200 ml Output Urine Total 800 ml 350 ml # Voids 1 Laboratory Tests 08/21/19 06:05: White Blood Count 14.5H, Red Blood Count 4.29L, Hemoglobin 10.6L, Hematocrit 32.7L, Mean Corpuscular Volume 76L, Mean Corpuscular Hemoglobin 24.6L, Mean Corpuscular Hemoglobin Concent 32.4, Red Cell Distribution Width 15.9H, Platelet Count 474H, Mean Platelet Volume 4.0L, Neutrophils (%) (Auto) 83.8H, Lymphocytes (%) (Auto) 10.9L, Monocytes (%) (Auto) 4.5, Eosinophils (%) (Auto) 0.1, Basophils (%) (Auto) 0.8, Sodium Level 140, Potassium Level 4.1, Chloride Level 105, Carbon Dioxide Level 21, Anion Gap 14, Blood Urea Nitrogen 23H, Creatinine 3.3H, Estimat Glomerular Filtration Rate 19.4, Glucose Level 102, Calcium Level 8.2L, Phosphorus Level 3.6, Magnesium Level 1.8 Height (Feet): 5 Height (Inches): 7.00 Weight (Pounds): 139 General Appearance: WD/WN, no apparent distress EENT: PERRL/EOMI Neck: supple Cardiovascular: normal rate, regular rhythm Respiratory/Chest: lungs clear, normal breath sounds Abdomen: non tender, soft Neurologic: alert Kamaljit Sorensen MD Aug 21, 2019 12:35
--- NOTE | 2019-08-21 13:00 | Nephrology Progress Note ---
Assessment/Plan Plan #Maxwell - likely due to vancomycin toxicity #sepsis due to UTI #Hyponatremia #hypomagnesemia #history for femur amputation #Left leg pain #Hx Left leg amputation #Paraplegia #Sacral decub ulcer #anemia - Cr up to 3.1 - will Dc vanco - check renal US-> IMPRESSION: Mildly echogenic right kidney. This is nonspecific but may suggest renal parenchymal disease. No hydronephrosis. - place donohue - continue NS 75cc/hr - Decrease midodrine to 5mg TID - DC VANCO - antibiotics per D - follow urine cx - monitor mag, phos, BMP daily - surgery eval - pain control - monitor WBC - monitor UOP - avoid nephrotoxins Time spent 70 minutes, greater than 50% on care coordination and counseling Subjective ROS Limited/Unobtainable: Yes Subjective Cr downtrending Dced vanco check renal US-> IMPRESSION: Mildly echogenic right kidney. This is nonspecific but may suggest renal parenchymal disease. No hydronephrosis. Objective Objective Last 24 Hour Vital Signs Date Time Temp Pulse Resp B/P (MAP) Pulse Ox O2 Delivery O2 Flow Rate FiO2 08/21/19 12:00 99.7 50 20 130/75 (93) 95 08/21/19 09:00 Room Air 08/21/19 08:00 99.3 51 20 140/69 (92) 97 08/21/19 04:00 99.0 55 20 132/65 (87) 96 08/21/19 00:00 99.8 48 21 122/57 (78) 94 08/20/19 21:00 Room Air 08/20/19 20:00 99.6 50 20 154/65 (94) 95 08/20/19 16:00 98.1 52 18 127/81 (96) 97 Intake and Output 08/20/19 08/21/19 19:00 07:00 Intake Total 1210 ml 1050 ml Output Total 800 ml 350 ml Balance 410 ml 700 ml IV Total 1010 ml 1050 ml Other 200 ml Output Urine Total 800 ml 350 ml # Voids 1 Laboratory Tests 08/21/19 06:05: White Blood Count 14.5H, Red Blood Count 4.29L, Hemoglobin 10.6L, Hematocrit 32.7L, Mean Corpuscular Volume 76L, Mean Corpuscular Hemoglobin 24.6L, Mean Corpuscular Hemoglobin Concent 32.4, Red Cell Distribution Width 15.9H, Platelet Count 474H, Mean Platelet Volume 4.0L, Neutrophils (%) (Auto) 83.8H, Lymphocytes (%) (Auto) 10.9L, Monocytes (%) (Auto) 4.5, Eosinophils (%) (Auto) 0.1, Basophils (%) (Auto) 0.8, Sodium Level 140, Potassium Level 4.1, Chloride Level 105, Carbon Dioxide Level 21, Anion Gap 14, Blood Urea Nitrogen 23H, Creatinine 3.3H, Estimat Glomerular Filtration Rate 19.4, Glucose Level 102, Calcium Level 8.2L, Phosphorus Level 3.6, Magnesium Level 1.8 Height (Feet): 5 Height (Inches): 7.00 Weight (Pounds): 139 Sienna Georges M.D. Aug 21, 2019 13:00
--- NOTE | 2019-08-21 13:33 | NUR ---
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 99.7 HR 50 RR 20 B/P 130/75 WBC 14.5 BUN 23 CR. 3.3 IS: IVF NS @ 75ML/HR ERTAPENEM IV ZYVOX IV HEPARIN SUBC MED/SURG STATUS
--- NOTE | 2019-08-21 13:51 | NUR ---
*-* INSURANCE *-* UPDATED CLINICALS AND REVIEWS HAVE BEEN FAXED TO: [facility] REF# [id number] F: [phone]
[2019-08-21 16:00] VITALS: BP 137/70
--- NOTE | 2019-08-21 16:48 | NUR ---
*-*DISCHARGE PLANNING*-* PATIENT HAS BEEN REFERRED TO: [facility] P: [phone] S/[facility], CALL BACK. Addendum: 08/21/19 at 1704 by NOVA PABLO CM DISREGURAD ABOVE NOTE, WRONG DOCUMENTATION Addendum: 08/21/19 at 1704 by NOVA PABLO CM DISREGARD ABOVE NOTE, WRONG DOCUMENTATION
--- NOTE | 2019-08-21 17:04 | NUR ---
*-*DISCHARGE PLANNING*-* PATIENT HAS BEEN ACCEPTED WITH: [facility] P: [phone] S/W [facility] WILL ACCEPT PT IN ROOM# 318.C UPON DISCHARGE TOMORROW 08/22/2019
[2019-08-21] MEDS: HYDROmorphone 1mg/ml Carpuject IVP PRN (17:49)
--- NOTE | 2019-08-21 18:16 | NUR ---
NURSE NOTES: Emptied 50cc for Colostomy bag.
--- NOTE | 2019-08-21 19:22 | NUR ---
HAND-OFF: Report given to TANJA Maria.
--- NOTE | 2019-08-21 19:30 | NUR ---
NURSE NOTES: RECEIVED PATIENT FROM TANJA RUTHERFORD. PATIENT IS AWAKE, AAOX2, CALM, ON ROOM AIR, VSS, NO ACUTE DISTRESS NOTED. BILATERAL SOFT WRIST RESTRAINTS IN PLACE, PULSES PRESENT, NO REDNESS NOTED AT SITE. COLOSTOMY ON LEFT LOWER QUADRANT IS INTACT, BROWN LIQUID NOTED. CHAVEZ CATH PRESENT, DRAINING WELL, YELLOW URINE NOTED. CHAVEZ ANCHOR IN PLACE. WOUND DRESSINGS INTACT AND DRY. PIV ON RIGHT FOREARM INTACT AND PATENT RUNNING NS @75ML/HR. BED IS LOCKED AND LOW, BED ALARMS ACTIVE, SIDE RAILS UPX2 AND CALL LIGHT IS WITHIN REACH. WILL CONTINUE TO MONITOR.
[2019-08-21 20:00] VITALS: BP 144/66
[2019-08-22] VITALS: BP 118/61
[2019-08-22 04:00] VITALS: BP 128/66
--- NOTE | 2019-08-22 04:15 | NUR ---
NURSE NOTES: PERFORMED WOUND CARE AND DRESSING CHANGE ON SACRAL, BUTTOCKS AND RIGHT ISCHIUM.
[2019-08-22] MEDS: HYDROmorphone 1mg/ml Carpuject IVP PRN ×2 (05:28→10:39)
--- NOTE | 2019-08-22 05:36 | NUR ---
NURSE NOTES: REMOVED PIV ON RIGHT FOREARM D/T LEAKING. INSERTED NEW IV ON RIGHT HAND 24G.
--- NOTE | 2019-08-22 07:34 | NUR ---
HAND-OFF: Report given to TANJA Whittaekr.
--- NOTE | 2019-08-22 07:35 | NUR ---
NURSE NOTES: Received pt lying in hospital bed in semi-garcia's position. Pt is AAO x 1-2, bedbound, unable to make needs known, telling RN "I need to go outside to smoke." Pt is restless in bed with B soft wrist restraints in place with no s/s of skin breakdown, pulses palpable, and adequate circulation noted to distal extremities. Pt is on RA with no s/s of distress noted at this time. LBM on 08/21/2019 via colostomy bag 250 mL output. Stoma prolapse present, stable per surgery MD. Marcos catheter [address] secured and draining urine well. pIV on R hand at 24 g running NS at 75 ml/hr. Wounds to sacrum dressing changed this AM per previous shift report. L knee wound present. Pt is planned for DC to SNF today per CM note to Miriam Arriaga. Will continue POC.
[2019-08-22 07:53] LABS: ANION GAP 12 mmol/L (5-15); BLOOD UREA NITROGEN 23 mg/dL (7-18); CALCIUM 8.3 MG/DL (8.5-10.1); CARBON DIOXIDE 23 MMOL/L (21-32); CHLORIDE 101 MMOL/L (98-107); POTASSIUM 3.8 MMOL/L (3.5-5.1); SODIUM 136 MMOL/L (136-145)
[2019-08-22 08:00] VITALS: BP 128/59
--- NOTE | 2019-08-22 08:17 | Nephrology Progress Note ---
Assessment/Plan Plan #Maxwell - likely due to vancomycin toxicity #sepsis due to UTI #Hyponatremia #hypomagnesemia #history for femur amputation #Left leg pain #Hx Left leg amputation #Paraplegia #Sacral decub ulcer #anemia - Cr down to 3.0 - will Dc vanco - check renal US-> IMPRESSION: Mildly echogenic right kidney. This is nonspecific but may suggest renal parenchymal disease. No hydronephrosis. - placed donohue - continue NS 75cc/hr - Decrease midodrine to 5mg TID - DC VANCO - antibiotics per D - follow urine cx - monitor mag, phos, BMP daily - surgery eval - pain control - monitor WBC - monitor UOP - avoid nephrotoxins Time spent 70 minutes, greater than 50% on care coordination and counseling Subjective ROS Limited/Unobtainable: Yes Subjective Cr downtrending Dced vanco check renal US-> IMPRESSION: Mildly echogenic right kidney. This is nonspecific but may suggest renal parenchymal disease. No hydronephrosis. Objective Objective Last 24 Hour Vital Signs Date Time Temp Pulse Resp B/P (MAP) Pulse Ox O2 Delivery O2 Flow Rate FiO2 08/22/19 04:00 97.9 51 20 128/66 (86) 94 08/22/19 00:00 100.0 53 20 118/61 (80) 94 08/21/19 22:17 99.0 08/21/19 21:00 Room Air 08/21/19 20:00 101.8 57 20 144/66 (92) 95 08/21/19 18:19 98.2 08/21/19 16:00 98.2 54 20 137/70 (92) 94 08/21/19 12:00 99.7 50 20 130/75 (93) 95 08/21/19 09:00 Room Air Intake and Output 08/21/19 08/22/19 19:00 07:00 Intake Total 1640 ml 1275 ml Output Total 700 ml 850 ml Balance 940 ml 425 ml Intake Oral 480 ml IV Total 1160 ml 1275 ml Output Urine Total 700 ml 600 ml Stool Total 250 ml # Voids 1 Laboratory Tests 08/22/19 07:20: Sodium Level 136, Potassium Level 3.8, Chloride Level 101, Carbon Dioxide Level 23, Anion Gap 12, Blood Urea Nitrogen 23H, Creatinine 3.0H, Estimat Glomerular Filtration Rate 21.6, Glucose Level 109H, Calcium Level 8.3L Height (Feet): 5 Height (Inches): 7.00 Weight (Pounds): 139 Sienna Georges M.D. Aug 22, 2019 08:17
[2019-08-22] MEDS: Linezolid 600mg/300mL Premix IVPB SCH ×2 (09:14→22:00)
[2019-08-22] MEDS: clonazePAM 0.5mg tab ORAL SCH ×4 (09:14→18:44)
[2019-08-22] MEDS: Heparin 5000 units/ml inj SUBQ SCH ×2 (09:16→22:01)
[2019-08-22] MEDS: Ertapenem 500mg ivpb (q24h) IV SCH ×2 (10:31)
[2019-08-22 12:00] VITALS: BP 124/61
--- NOTE | 2019-08-22 12:43 | CDS Physician Query ---
Clarification is required for compliance, coding accuracy, and to reflect severity of illness for this patient Dear Dr. Kamaljit Sorensen Date: 08/22/2019 Psychologist Industrial Organizational/CDS Name: Anel Bowman Clinical Documentation states: HNP: 59-year-old male with multiple medical problems admitted with sepsis due to urinary tract infection and AMS. Nephro progress note 08/21: Maxwell - likely due to vancomycin toxicity...DC VANCO Creatinine: 08/16 0.6, 08/17 1.8, 08/18 3.5 Please Clarify the type of renal failure below: Etiology [] Acute Renal Failure w/ Tubular Necrosis [] Acute Renal Failure w/ Cortical Necrosis [] Acute Renal Failure w/ Medullary Necrosis [] Acute Renal Failure (unspecified) [] Other: Present on Admission: [] Yes [] No [] Clinically Undetermined Physician signature Date Please also document in your Progress Notes and/or Discharge Summary and indicate if the condition was present on admission. LUKASD
--- NOTE | 2019-08-22 13:20 | NUR ---
NURSE NOTES: Pt refused to take clonazepam and spat out medication. Pt only took midodrine as scheduled. Pt is restless and agitated when educated re taking meds. Will continue to monitor.
--- NOTE | 2019-08-22 14:21 | NUR ---
CASE MANAGEMENT:REVIEW SI;ACUTE KIDNEY INJURY. UTI. ENCEPHALOPATHY. SACRAL DECUB. 101.8 51 20 128/59 94% ON RA BUN 23 CR 3.0 IS;ERTAPENEM IV QD MIDODRINE PO TID LINEZOLID IV BID IVF NS @ 75 ML/HR KLONOPIN PO TID DILAUDID IV PRN HEPARIN SUBQ Q12 HR MED SURG STATUS DCP; [facility]
[2019-08-22 16:00] VITALS: BP 156/65
--- NOTE | 2019-08-22 16:25 | NUR ---
*-* INSURANCE *-* UPDATED CLINICALS AND REVIEWS HAVE BEEN FAXED TO: [facility] REF# [id number] F: [phone]
--- NOTE | 2019-08-22 16:59 | General Progress Note ---
Assessment/Plan Problem List: (1) Urinary tract infection ICD Codes: N39.0 - Urinary tract infection, site not specified SNOMED: 57474868 (2) Paraplegia ICD Codes: G82.20 - Paraplegia, unspecified SNOMED: 39305457 (3) Sacral decubitus ulcer ICD Codes: L89.159 - Pressure ulcer of sacral region, unspecified stage SNOMED: 888689203 Status: stable, progressing Assessment/Plan: 59-year-old male with multiple medical problems including paraplegia, bedbound, dementia admitted with sepsis due to urinary tract infection and AMS. #UTI -> gram neg bacilli #Sepsis due to a UTI (fever, leukocytosis) - ID consult, Dr Freeman - s/p vanco & zosyn (08/15 - 08/16) - ertapenem per cx sens (08/17 - ) -Linezolid (08/18- - follow cxs/sens - trend chem, cbc - probiotic - supportive care - IVF - c/w home midodrine #SEAN #Hyponatremia #Hypomagnesemia - replete prn - hypovolemic - IVF per nephrology - vancomycin d/norbert 08/19/19 - avoid nephrotoxic medications - nephro consult, Dr Georges #Anemia, acute on chonic #Suspect OSMIN - suspect dilutional, no e/o active bleed - trend cbc - transfuse for Hb < 7 #Left leg pain #Hx Left leg amputation #Paraplegia - ctm - pain control #Sacral decubitus ulcer, POA - offloading per rn protocl q2h - surgery consult for wound, appreciate recs and mgt #Toxic metabolic encephalopathy - tx as above - delirium precautions FENPPX DVTPPX: SCD, HSQ GI PPX: na Fluids: mIVF x 2L Diet: regular Lines: PT/OT: deferred for now Code status: Full Dispo: SNF ([facility]) Reason for Continued Hospitalization: sepsis due to UTI 36 minutes spent on this encounter. 24 spent on counseling and care coordination. Time of note may not reflect time patient was seen. Subjective Date patient seen: Aug 22, 2019 Constitutional: Denies: no symptoms, chills, diaphoresis, fever, malaise, weakness, other HEENT: Denies: no symptoms, eye pain, blurred vision, tearing, double vision, ear pain, ear discharge, nose pain, nose congestion, throat pain, throat swelling, mouth pain, mouth swelling, other Cardiovascular: Denies: no symptoms, chest pain, edema, irregular heart rate, lightheadedness, palpitations, syncope, other Respiratory: Denies: no symptoms, cough, orthopnea, shortness of breath, SOB with excertion, SOB at rest, sputum, stridor, wheezing, other Gastrointestinal/Abdominal: Denies: no symptoms, abdomen distended, abdominal pain, black stools, tarry stools, blood in stool, constipated, diarrhea, difficulty swallowing, nausea, poor appetite, poor fluid intake, rectal bleeding , vomiting, other Genitourinary: Denies: no symptoms, burning, discharge, frequency, flank pain, hematuria, incontinence, pain, urgency, other Neurologic/Psychiatric: Denies: no symptoms, anxiety, depressed, emotional problems, headache, numbness, paresthesia, pre-existing deficit, seizure, tingling, tremors, weakness, other Endocrine: Denies: no symptoms, excessive sweating, flushing, intolerance to cold, intolerance to heat, increased hunger, increased thirst, increased urine, unexplained weight gain, unexplained weight loss, other Hematologic/Lymphatic: Denies: no symptoms, anemia, easy bleeding, easy bruising, other Allergies: Coded Allergies: No Known Allergies (Unverified , 08/15/19) Subjective resting in bed comfortably. moaning at times. Objective Last 24 Hour Vital Signs Date Time Temp Pulse Resp B/P (MAP) Pulse Ox O2 Delivery O2 Flow Rate FiO2 08/22/19 16:00 98.2 57 19 156/65 (95) 93 08/22/19 12:00 97.7 61 19 124/61 (82) 94 08/22/19 11:09 97.5 08/22/19 09:00 Room Air 08/22/19 08:00 97.5 57 19 128/59 (82) 94 08/22/19 04:00 97.9 51 20 128/66 (86) 94 08/22/19 00:00 100.0 53 20 118/61 (80) 94 08/21/19 22:17 99.0 08/21/19 21:00 Room Air 08/21/19 20:00 101.8 57 20 144/66 (92) 95 Intake and Output 08/21/19 08/22/19 19:00 07:00 Intake Total 1640 ml 1275 ml Output Total 700 ml 850 ml Balance 940 ml 425 ml Intake Oral 480 ml IV Total 1160 ml 1275 ml Output Urine Total 700 ml 600 ml Stool Total 250 ml # Voids 1 Laboratory Tests 08/22/19 07:20: Sodium Level 136, Potassium Level 3.8, Chloride Level 101, Carbon Dioxide Level 23, Anion Gap 12, Blood Urea Nitrogen 23H, Creatinine 3.0H, Estimat Glomerular Filtration Rate 21.6, Glucose Level 109H, Calcium Level 8.3L Height (Feet): 5 Height (Inches): 7.00 Weight (Pounds): 139 General Appearance: no apparent distress EENT: PERRL/EOMI Neck: supple Cardiovascular: normal rate, regular rhythm Respiratory/Chest: lungs clear, normal breath sounds Neurologic: alert Kamaljit Sorensen MD Aug 22, 2019 16:59
--- NOTE | 2019-08-22 17:10 | Surgery Progress Note ---
Surgery Progress Note Subjective Additional Comments Leukocytosis, anemia, labs noted. He is a lot more awake and alert today responsive and able to follow commands. Discussed prolapse loop ostomy with nursing at bedside reduced Objective Last 24 Hour Vital Signs Date Time Temp Pulse Resp B/P (MAP) Pulse Ox O2 Delivery O2 Flow Rate FiO2 08/22/19 16:00 98.2 57 19 156/65 (95) 93 08/22/19 12:00 97.7 61 19 124/61 (82) 94 08/22/19 11:09 97.5 08/22/19 09:00 Room Air 08/22/19 08:00 97.5 57 19 128/59 (82) 94 08/22/19 04:00 97.9 51 20 128/66 (86) 94 08/22/19 00:00 100.0 53 20 118/61 (80) 94 08/21/19 22:17 99.0 08/21/19 21:00 Room Air 08/21/19 20:00 101.8 57 20 144/66 (92) 95 I&O Intake and Output 08/21/19 08/22/19 19:00 07:00 Intake Total 1640 ml 1275 ml Output Total 700 ml 850 ml Balance 940 ml 425 ml Intake Oral 480 ml IV Total 1160 ml 1275 ml Output Urine Total 700 ml 600 ml Stool Total 250 ml # Voids 1 Cardiovascular: RSR Respiratory: clear Abdomen: soft, non-tender, present bowel sounds, other Extremities: no cyanosis, other Laboratory Tests Test 08/22/19 07:20 Sodium Level 136 MMOL/L (136-145) Potassium Level 3.8 MMOL/L (3.5-5.1) Chloride Level 101 MMOL/L (98-107) Carbon Dioxide Level 23 MMOL/L (21-32) Anion Gap 12 mmol/L (5-15) Blood Urea Nitrogen 23 mg/dL (7-18) H Creatinine 3.0 MG/DL (0.55-1.30) H Estimat Glomerular Filtration Rate 21.6 mL/min (>60) Glucose Level 109 MG/DL (74-106) H Calcium Level 8.3 MG/DL (8.5-10.1) L Plan Problems: (1) Left leg pain Assessment & Plan: Patient presented admission complaining of left leg pain. On evaluation there is deformity left lower extremity plain films reviewed and obvious deformity noted as the femoral proximal is dislocated from the shaft. Patient is nonambulatory at baseline per report. He is somewhat cooperative examined with exam but a poor historian. Multiple skin concerns identified. Pt presented on admission with multiple Pressure Injuries, Bilat foot drop. Historical scar noted to L Hip Large Full Thickness Pressure Injury Buttocks with undermining and tunneling. Wound has irregular borders extends from Sacrum to L ischium and base of Scrotum,laterally from Outer R to Outer L gluteus.(L)18.9cm x (W)18.5cm x (D) 3.7cm, undermining clockwise 10-3 by 5.9cm @3o'clock,Tunneling clockwise @6o' clock by 2.7cm.Scattered Biofilm with [place] granulation at base of wound ,bone is palpable in tunneled and undermined areas. At distal base of wound, at scrotum is an area of slough-size of Quarter. Small amt non-odorous serous exudate.Periwound is pink with scattered brownish skin tone.( Full thickness Pressure injury R Ischium(L)9.5cm x (W)9.7cm x (D)4.2cm, Tunneling clockwise into perineum at 7o'clock by 5.3cm. Base of wound has scattered slough. Bone is palpable . Small amt seropurulent exudate. Mild odor which resolved post cleansing of wound.Erythema noted along edges. Additional area of slough noted periwound along borders clockwise @3-4o'clock. Non-Blanching erythema noted to Protruding bony prominence L Hip. Dry, loosening eschar lateral L tibia. (L)1.1cm x (W)0.4cm.[place] epithelial along borders. Stable dry, brown eschar noted to medial L tibia(L)4.3cm x (W)1cm. Stable dry eschar noted to Plantar L Heel. (L)4.5cm x (W)2cm. Periwound is boggy but blanchable.Historical scar alson noted periwound. Full thickness pressure injury Plantar R Heel (L)1.2cm x (W)2.5cm x (D)0.2cm. 80 % pink granulation,20% slough at base of wound. Edges are macerated. Small amt non-odorous serous exudate. Periwound is boggy but blanchable. Tx.Plan: Cleanse wound Buttocks with Saline. Loosely Pack wound including undermined areas with Hydrogel impregnated Kerlix.Apply Moisture Barrier Paste along borders. Cover with ABD Pads and secure with Tegaderm Daily and prn. Cleanse R Ischial Wound with Saline. Loosely pack with Hydrogel Impregnated Kerlix. Apply Moisture Barrier Periwound. Cover with ABD Pad and secure with Tegaderm Daily and prn. Apply Cavilon Skin Barrier to L Hip Bony Protrusion (Do Not Rub/ Massage area). Cover with Optifoam drsg. Change every 3 days and prn. Apply Betadine to Medial and lateral L Tibial wounds. Cover with Optifoam drsg every 3 days and prn. Apply Betadine to Plantar L Heel wound. Cover with Optifoam drsg. Change every 3 days and prn. Apply Betadine to Plantar R heel wound. Cover with Optifoam drsg every 3 days and prn. Reposition at least every 2hours or as tolerated. Place pillow between knees. Off-Load Heels with Pillow. APM/SUMI Mattress overlay. (2) Femur fracture Assessment & Plan: There is an old amputation defect across the mid femoral shaft. The mid to distal femur is unremarkable with normal articulation at the knee. The proximal femur including the femoral head is not visualized likely resected. There is deformity of the left hip/acetabulum likely posttraumatic. Adjacent heterotopic ossification noted. Surrounding soft tissue is normal. 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 can be done ioutpatient as this is chronic ostomy prolapse stable loop and functional (3) Urinary tract infection (4) Sacral decubitus ulcer Assessment & Plan: Patient with a prolapsed loop ostomy identified. Still functional viable reducible. (5) Paraplegia Cornelius Salgado Aug 22, 2019 17:10
--- NOTE | 2019-08-22 17:37 | Infectious Diseases Prog Note ---
Assessment/Plan Assessment/Plan ASSESSMENT AND PLAN: 1. 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 endocarditis, ? mrsa/ proteus sacral wound infection, sepsis, leukocytosis, fevers, mrsa colonization, ARF - ertapenem and zyvox - day # 5 abx - surveillance blood cultures - negative, labs, check TTE - wound care per surgery - monitor labs 2. Paraplegia. 3. Chronic catheter. 4. Sacral wound. 5. Anemia. 6. No history of diabetes or hypertension. 7. Pain management per primary care team. 8. No known allergies. 9. Social history is negative. 10. Family history is contributory. 11. MAR was noted. 12. Case discussed with RN. Subjective Constitutional: Reports: fever HEENT: Denies: congestion Respiratory: Denies: shortness of breath Cardiovascular: Denies: chest pain Gastrointestinal/Abdominal: Denies: nausea, vomiting, diarrhea Genitourinary: Reports: other - + donohue Neurologic: Denies: headache Psychiatric: Denies: depression Skin: Denies: rash Hematologic: Denies: bleeding Musculoskeletal: Denies: pain Allergies: Coded Allergies: No Known Allergies (Unverified , 08/15/19) Objective Vital Signs Last 24 Hour Vital Signs Date Time Temp Pulse Resp B/P (MAP) Pulse Ox O2 Delivery O2 Flow Rate FiO2 08/22/19 16:00 98.2 57 19 156/65 (95) 93 08/22/19 12:00 97.7 61 19 124/61 (82) 94 08/22/19 11:09 97.5 08/22/19 09:00 Room Air 08/22/19 08:00 97.5 57 19 128/59 (82) 94 08/22/19 04:00 97.9 51 20 128/66 (86) 94 08/22/19 00:00 100.0 53 20 118/61 (80) 94 08/21/19 22:17 99.0 08/21/19 21:00 Room Air 08/21/19 20:00 101.8 57 20 144/66 (92) 95 Height (Feet): 5 Height (Inches): 7.00 Weight (Pounds): 139 General Appearance: no acute distress HEENT: normocephalic, atraumatic, anicteric, mucous membranes moist Respiratory/Chest: lungs clear, normal breath sounds, no respiratory distress, no accessory muscle use Cardiovascular: normal rate, regular rhythm, no gallop/murmur, no JVD Abdomen: normal bowel sounds, soft, non tender, no organomegaly, non distended Genitourinary: other - no donohue Extremities: no cyanosis Skin: no rash Neurologic/Psychiatric: tufting creeler II-XII grossly normal, alert, responsive Lymphatic: no neck adenopathy Musculoskeletal: no effusion Objective Chest x-ray - 08/15/19 - Procedure: XRAY Chest 1v Procedure: XRAY Chest 1v Reason for study: Chest pain Comparison films: None. FINDINGS: A single one view chest is obtained. Vascularity is normal. The lung hess are clear bilaterally. Cardiac and mediastinal silhouette are within normal limits. CP angles are sharp. The bony thorax appear unremarkable. IMPRESSION: NO ACUTE CARDIOPULMONARY DISEASE. Microbiology Date/Time Source Procedure Growth Status 08/18/19 16:45 Blood Blood Culture - Preliminary NO GROWTH AFTER 72 HOURS Resulted 08/15/19 18:50 Nasopharynx Coronavirus COVID-19 PCR (GENE) - Final Complete 08/19/19 15:14 Urine,Clean Catch Urine Culture - Final NO GROWTH AFTER 48 HOURS Complete 08/16/19 18:20 Sacral Wound Gram Stain - Final Complete 08/16/19 18:20 Wound Culture - Final Staphylococcus Aureus - Mrsa Proteus Mirabilis Complete Labs Test 08/19/19 17:45 08/20/19 06:20 08/21/19 06:05 08/22/19 07:20 Sodium Level 138 MMOL/L (136-145) 139 MMOL/L (136-145) 140 MMOL/L (136-145) 136 MMOL/L (136-145) Potassium Level 5.0 MMOL/L (3.5-5.1) 4.8 MMOL/L (3.5-5.1) 4.1 MMOL/L (3.5-5.1) 3.8 MMOL/L (3.5-5.1) Chloride Level 105 MMOL/L (98-107) 105 MMOL/L (98-107) 105 MMOL/L (98-107) 101 MMOL/L (98-107) Carbon Dioxide Level 20 MMOL/L (21-32) 21 MMOL/L (21-32) 21 MMOL/L (21-32) 23 MMOL/L (21-32) Anion Gap 13 mmol/L (5-15) 13 mmol/L (5-15) 14 mmol/L (5-15) 12 mmol/L (5-15) Blood Urea Nitrogen 20 mg/dL (7-18) 22 mg/dL (7-18) 23 mg/dL (7-18) 23 mg/dL (7-18) Creatinine 3.5 MG/DL (0.55-1.30) 3.5 MG/DL (0.55-1.30) 3.3 MG/DL (0.55-1.30) 3.0 MG/DL (0.55-1.30) Estimat Glomerular Filtration Rate 18.1 mL/min (>60) 18.1 mL/min (>60) 19.4 mL/min (>60) 21.6 mL/min (>60) Glucose Level 106 MG/DL (74-106) 103 MG/DL (74-106) 102 MG/DL (74-106) 109 MG/DL (74-106) Calcium Level 8.1 MG/DL (8.5-10.1) 8.2 MG/DL (8.5-10.1) 8.2 MG/DL (8.5-10.1) 8.3 MG/DL (8.5-10.1) White Blood Count 12.7 K/UL (4.8-10.8) 14.5 K/UL (4.8-10.8) Red Blood Count 3.87 M/UL (4.70-6.10) 4.29 M/UL (4.70-6.10) Hemoglobin 9.5 G/DL (14.2-18.0) 10.6 G/DL (14.2-18.0) Hematocrit 29.8 % (42.0-52.0) 32.7 % (42.0-52.0) Mean Corpuscular Volume 77 FL (80-99) 76 FL (80-99) Mean Corpuscular Hemoglobin 24.6 PG (27.0-31.0) 24.6 PG (27.0-31.0) Mean Corpuscular Hemoglobin Concent 32.0 G/DL (32.0-36.0) 32.4 G/DL (32.0-36.0) Red Cell Distribution Width 16.0 % (11.6-14.8) 15.9 % (11.6-14.8) Platelet Count 461 K/UL (150-450) 474 K/UL (150-450) Mean Platelet Volume 4.2 FL (6.5-10.1) 4.0 FL (6.5-10.1) Neutrophils (%) (Auto) 77.4 % (45.0-75.0) 83.8 % (45.0-75.0) Lymphocytes (%) (Auto) 15.9 % (20.0-45.0) 10.9 % (20.0-45.0) Monocytes (%) (Auto) 5.4 % (1.0-10.0) 4.5 % (1.0-10.0) Eosinophils (%) (Auto) 0.1 % (0.0-3.0) 0.1 % (0.0-3.0) Basophils (%) (Auto) 1.2 % (0.0-2.0) 0.8 % (0.0-2.0) Phosphorus Level 3.4 MG/DL (2.5-4.9) 3.6 MG/DL (2.5-4.9) Magnesium Level 2.0 MG/DL (1.8-2.4) 1.8 MG/DL (1.8-2.4) Laboratory Tests Test 08/22/19 07:20 Sodium Level 136 MMOL/L (136-145) Potassium Level 3.8 MMOL/L (3.5-5.1) Chloride Level 101 MMOL/L (98-107) Carbon Dioxide Level 23 MMOL/L (21-32) Anion Gap 12 mmol/L (5-15) Blood Urea Nitrogen 23 mg/dL (7-18) H Creatinine 3.0 MG/DL (0.55-1.30) H Estimat Glomerular Filtration Rate 21.6 mL/min (>60) Glucose Level 109 MG/DL (74-106) H Calcium Level 8.3 MG/DL (8.5-10.1) L Current Medications Medications (Trade) Dose Ordered Sig/Mya Route PRN Reason Start Time Stop Time Status Last Admin Dose Admin Acetaminophen (Tylenol) 650 mg Q6H PRN ORAL Temp >100.5 08/16/19 00:45 7/3/20 00:44 08/21/19 21:47 Clonazepam (KlonoPIN) 0.5 mg TID ORAL 08/17/19 13:00 08/24/19 12:59 08/22/19 09:14 Ertapenem 0.5 gm/ Sodium Chloride 55 ml @ 110 mls/hr Q24H IV 08/21/19 10:00 08/26/19 09:59 08/22/19 10:31 Heparin Sodium (Porcine) (Heparin 5000 units/ml) 5,000 units EVERY 12 HOURS SUBQ 08/16/19 09:00 09/30/19 08:59 08/22/19 09:16 Hydromorphone HCl (Dilaudid) 0.5 mg Q6H PRN IVP moderate pain 08/15/19 21:45 08/22/19 21:44 Hydromorphone HCl (Dilaudid) 1 mg Q4H PRN IVP Severe Pain (Pain Scale 7-10) 08/16/19 10:30 08/23/19 10:29 08/22/19 10:39 Linezolid 300 ml @ 300 mls/hr Q12HR IVPB 08/19/19 18:00 08/26/19 17:59 08/22/19 09:14 Midodrine (Pro-Amatine) 5 mg THREE TIMES A DAY ORAL 08/19/19 18:00 11/14/19 08:59 08/22/19 13:13 Sodium Chloride 1,000 ml @ 75 mls/hr [id number] IV 08/19/19 14:30 09/18/19 14:29 08/21/19 19:50 Sharif Painting MD Aug 22, 2019 17:37
--- NOTE | 2019-08-22 19:30 | NUR ---
HAND-OFF: Report given to TANJA Rae. POC endorsed.
--- NOTE | 2019-08-22 19:35 | NUR ---
NURSE NOTES: Received report from Panfilo, the resident is noted with a prolapsed stoma with a colostomy bag that has been reported to the physician by the previous nurse Panfilo RN.Resident is on RA is alert and oriented x3. Fall precaution in place with bed low level , 3 siderails up, bed alarm was set on and the bedside table and call light within easy reach. will continue to monitor
[2019-08-22 21:00] VITALS: BP 131/65
[2019-08-23] VITALS: BP 134/73
[2019-08-23 04:00] VITALS: BP 151/73
--- NOTE | 2019-08-23 05:00 | NUR ---
The patient remained stable with Resp even and unlabored and the bilateral lungs sounds cleared on auscultation.Turning and re-positioned was done as indicated. Remained on a soft restrained and was constantly monitor the entire night and the was no evidence of a distress noted. Will continue to monitor
[2019-08-23 06:47] LABS: BASOPHILS % (AUTO) 0.7 % (0.0-2.0); EOSINOPHILS % (AUTO) 0.5 % (0.0-3.0); HEMATOCRIT 31.2 % (42.0-52.0); HEMOGLOBIN 10.1 G/DL (14.2-18.0); LYMPHOCYTES % (AUTO) 16.3 % (20.0-45.0); MEAN CORPUSCULAR VOLUME 76 FL (80-99); MONOCYTES % (AUTO) 6.2 % (1.0-10.0); NEUTROPHILS % (AUTO) 76.3 % (45.0-75.0); PLATELET COUNT 433 K/UL (150-450); RED BLOOD COUNT 4.09 M/UL (4.70-6.10); RED CELL DISTRIBUTION WIDTH 15.8 % (11.6-14.8)
[2019-08-23 07:01] LABS: ALANINE AMINOTRANSFERASE < 6 U/L (12-78); ALBUMIN/GLOBULIN RATIO 0.4 (1.0-2.7); ALKALINE PHOSPHATASE 130 U/L (46-116); ANION GAP 14 mmol/L (5-15); ASPARTATE AMINO TRANSFERASE 20 U/L (15-37); BILIRUBIN,TOTAL 0.5 MG/DL (0.2-1.0); BLOOD UREA NITROGEN 20 mg/dL (7-18); CALCIUM 8.1 MG/DL (8.5-10.1); CARBON DIOXIDE 21 MMOL/L (21-32); CHLORIDE 99 MMOL/L (98-107); CREATININE 2.6 MG/DL (0.55-1.30); POTASSIUM 3.4 MMOL/L (3.5-5.1); SODIUM 134 MMOL/L (136-145)
--- NOTE | 2019-08-23 07:35 | NUR ---
HAND-OFF: Report given to Oswaldo AGRAWAL.
[2019-08-23 08:00] VITALS: BP 151/73
--- NOTE | 2019-08-23 08:18 | NUR ---
NURSE NOTES: Patient awake and alert to name,respirations unlabored.Noted patient with bilateral wrist restraints.Will provide skin care and Range of motion.exercises.Marcos catheter is in place and draining clear yellow urine.Patient has colostomy bag, small amount of liquid brown stool noted,noted air in bag.Noted large pink stoma.Per report DR landrum.IV fluid infusing as ordered.assist patient with breakfast.Dressings intact.Bed alalrm is on,call light within reach.
--- NOTE | 2019-08-23 08:30 | Nephrology Progress Note ---
Assessment/Plan Plan #Maxwell - likely due to vancomycin toxicity #sepsis due to UTI #Hyponatremia #hypomagnesemia #history for femur amputation #Left leg pain #Hx Left leg amputation #Paraplegia #Sacral decub ulcer #anemia - Cr down to 3.0 - will Dc vanco - check renal US-> IMPRESSION: Mildly echogenic right kidney. This is nonspecific but may suggest renal parenchymal disease. No hydronephrosis. - placed donohue - continue NS 75cc/hr - Decrease midodrine to 5mg TID - DC VANCO - antibiotics per D - follow urine cx - monitor mag, phos, BMP daily - surgery eval - pain control - monitor WBC - monitor UOP - avoid nephrotoxins Time spent 70 minutes, greater than 50% on care coordination and counseling Subjective Subjective Cr downtrending Dced vanco check renal US-> IMPRESSION: Mildly echogenic right kidney. This is nonspecific but may suggest renal parenchymal disease. No hydronephrosis. Objective Objective Last 24 Hour Vital Signs Date Time Temp Pulse Resp B/P (MAP) Pulse Ox O2 Delivery O2 Flow Rate FiO2 08/23/19 04:00 99.1 52 20 151/73 (99) 95 08/23/19 00:00 97.7 52 20 134/73 (93) 96 08/22/19 21:00 Room Air 08/22/19 21:00 98.0 59 19 131/65 (87) 95 08/22/19 16:00 98.2 57 19 156/65 (95) 93 08/22/19 12:00 97.7 61 19 124/61 (82) 94 08/22/19 11:09 97.5 08/22/19 09:00 Room Air Intake and Output 08/22/19 08/23/19 19:00 07:00 Intake Total 475 ml 810 ml Output Total 800 ml 1200 ml Balance -325 ml -390 ml Intake Oral 120 ml IV Total 355 ml 450 ml Other 360 ml Output Urine Total 800 ml 1200 ml Laboratory Tests 08/23/19 04:45: White Blood Count 10.0, Red Blood Count 4.09L, Hemoglobin 10.1L, Hematocrit 31.2L, Mean Corpuscular Volume 76L, Mean Corpuscular Hemoglobin 24.8L, Mean Corpuscular Hemoglobin Concent 32.5, Red Cell Distribution Width 15.8H, Platelet Count 433, Mean Platelet Volume 3.9L, Neutrophils (%) (Auto) 76.3H, Lymphocytes (%) (Auto) 16.3L, Monocytes (%) (Auto) 6.2, Eosinophils (%) (Auto) 0.5, Basophils (%) (Auto) 0.7, Sodium Level 134L, Potassium Level 3.4L, Chloride Level 99, Carbon Dioxide Level 21, Anion Gap 14, Blood Urea Nitrogen 20H, Creatinine 2.6H, Estimat Glomerular Filtration Rate 25.5, Glucose Level 107H, Calcium Level 8.1L, Total Bilirubin 0.5, Aspartate Amino Transf (AST/SGOT ) 20, Alanine Aminotransferase (ALT/SGPT) < 6L, Alkaline Phosphatase 130H, Total Protein 6.6, Albumin 2.0L, Globulin 4.6, Albumin/Globulin Ratio 0.4L Height (Feet): 5 Height (Inches): 7.00 Weight (Pounds): 137 Sienna Georges M.D. Aug 23, 2019 08:30
[2019-08-23] MEDS: clonazePAM 0.5mg tab ORAL SCH ×3 (08:59→18:45)
[2019-08-23] MEDS: Linezolid 600mg/300mL Premix IVPB SCH (08:59)
[2019-08-23] MEDS: Heparin 5000 units/ml inj SUBQ SCH ×2 (09:00→21:00)
--- NOTE | 2019-08-23 10:10 | NUR ---
PRESS PIPE INSPECTOR NOTE MESSAGE SENT TO DR COURTNEY IN RE TO POC AND DISCHARGE PLANNING. AWAITING CALL BACK AT THIS TIME.
[2019-08-23] MEDS: Ertapenem 500mg ivpb (q24h) IV SCH ×2 (11:26)
--- NOTE | 2019-08-23 11:58 | NUR ---
CASE MANAGEMENT:REVIEW SI; ACUTE KIDNEY INJURY. UTI. ENCEPHALOPATHY. BACTEREMIA. 99.1 52 20 156/65 93% ON RA NA 134 K+ 3.4 BUN 20 CR 2.6 ALB 2.0 IS;ERTAPENEM IV MIDODRINE PO TID LINEZOLID IV A12 NR KLONOPIN PO TID HEPARIN SUBQ Q12 HR IVF NS @ 75 ML/HR MED SURG STATUS DCP;FROM [facility]
[2019-08-23 12:00] VITALS: BP 149/76
--- NOTE | 2019-08-23 13:27 | Infectious Diseases Prog Note ---
Assessment/Plan Assessment/Plan ASSESSMENT AND PLAN: 1. 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 endocarditis, ? mrsa/ proteus sacral wound infection, sepsis, leukocytosis, fevers, mrsa colonization, ARF - ertapenem and doxycycline po for 5 days more - surveillance blood cultures - negative - wound care per surgery - monitor labs - TTE without vegetations 2. Paraplegia. 3. Chronic catheter. 4. Sacral wound. 5. Anemia. 6. No history of diabetes or hypertension. 7. Pain management per primary care team. 8. No known allergies. 9. Social history is negative. 10. Family history is contributory. 11. MAR was noted. 12. Case discussed with RN. Subjective Constitutional: Denies: fever HEENT: Denies: congestion Respiratory: Denies: shortness of breath Cardiovascular: Denies: chest pain Gastrointestinal/Abdominal: Denies: nausea, vomiting Allergies: Coded Allergies: No Known Allergies (Unverified , 08/15/19) Objective Vital Signs Last 24 Hour Vital Signs Date Time Temp Pulse Resp B/P (MAP) Pulse Ox O2 Delivery O2 Flow Rate FiO2 08/23/19 12:00 98.2 53 18 149/76 (100) 96 08/23/19 09:00 Room Air 08/23/19 08:00 98.2 52 20 151/73 (99) 95 08/23/19 04:00 99.1 52 20 151/73 (99) 95 08/23/19 00:00 97.7 52 20 134/73 (93) 96 08/22/19 21:00 Room Air 08/22/19 21:00 98.0 59 19 131/65 (87) 95 08/22/19 16:00 98.2 57 19 156/65 (95) 93 Height (Feet): 5 Height (Inches): 7.00 Weight (Pounds): 137 General Appearance: no acute distress HEENT: normocephalic, atraumatic, mucous membranes moist Respiratory/Chest: lungs clear, normal breath sounds, no respiratory distress Cardiovascular: normal rate, regular rhythm Objective Chest x-ray - 08/15/19 - Procedure: XRAY Chest 1v Procedure: XRAY Chest 1v Reason for study: Chest pain Comparison films: None. FINDINGS: A single one view chest is obtained. Vascularity is normal. The lung hess are clear bilaterally. Cardiac and mediastinal silhouette are within normal limits. CP angles are sharp. The bony thorax appear unremarkable. IMPRESSION: NO ACUTE CARDIOPULMONARY DISEASE. Laboratory Tests Test 08/23/19 04:45 White Blood Count 10.0 K/UL (4.8-10.8) Red Blood Count 4.09 M/UL (4.70-6.10) L Hemoglobin 10.1 G/DL (14.2-18.0) L Hematocrit 31.2 % (42.0-52.0) L Mean Corpuscular Volume 76 FL (80-99) L Mean Corpuscular Hemoglobin 24.8 PG (27.0-31.0) L Mean Corpuscular Hemoglobin Concent 32.5 G/DL (32.0-36.0) Red Cell Distribution Width 15.8 % (11.6-14.8) H Platelet Count 433 K/UL (150-450) Mean Platelet Volume 3.9 FL (6.5-10.1) L Neutrophils (%) (Auto) 76.3 % (45.0-75.0) H Lymphocytes (%) (Auto) 16.3 % (20.0-45.0) L Monocytes (%) (Auto) 6.2 % (1.0-10.0) Eosinophils (%) (Auto) 0.5 % (0.0-3.0) Basophils (%) (Auto) 0.7 % (0.0-2.0) Sodium Level 134 MMOL/L (136-145) L Potassium Level 3.4 MMOL/L (3.5-5.1) L Chloride Level 99 MMOL/L (98-107) Carbon Dioxide Level 21 MMOL/L (21-32) Anion Gap 14 mmol/L (5-15) Blood Urea Nitrogen 20 mg/dL (7-18) H Creatinine 2.6 MG/DL (0.55-1.30) H Estimat Glomerular Filtration Rate 25.5 mL/min (>60) Glucose Level 107 MG/DL (74-106) H Calcium Level 8.1 MG/DL (8.5-10.1) L Total Bilirubin 0.5 MG/DL (0.2-1.0) Aspartate Amino Transf (AST/SGOT) 20 U/L (15-37) Alanine Aminotransferase (ALT/SGPT) < 6 U/L (12-78) L Alkaline Phosphatase 130 U/L (46-116) H Total Protein 6.6 G/DL (6.4-8.2) Albumin 2.0 G/DL (3.4-5.0) L Globulin 4.6 g/dL Albumin/Globulin Ratio 0.4 (1.0-2.7) L Current Medications Medications (Trade) Dose Ordered Sig/Mya Route PRN Reason Start Time Stop Time Status Last Admin Dose Admin Acetaminophen (Tylenol) 650 mg Q6H PRN ORAL Temp >100.5 08/16/19 00:45 09/15/19 00:44 08/21/19 21:47 Clonazepam (KlonoPIN) 0.5 mg TID ORAL 08/17/19 13:00 08/24/19 12:59 08/23/19 08:59 Doxycycline Monohydrate (Doxycycline Monohydrate) 100 mg EVERY 12 HOURS ORAL 08/23/19 21:00 08/30/19 20:59 Ertapenem 0.5 gm/ Sodium Chloride 55 ml @ 110 mls/hr Q24H IV 08/21/19 10:00 08/26/19 09:59 08/23/19 11:26 Heparin Sodium (Porcine) (Heparin 5000 units/ml) 5,000 units EVERY 12 HOURS SUBQ 08/16/19 09:00 09/30/19 08:59 08/23/19 09:00 Midodrine (Pro-Amatine) 5 mg THREE TIMES A DAY ORAL 08/19/19 18:00 11/14/19 08:59 08/23/19 08:59 Sodium Chloride 1,000 ml @ 75 mls/hr [id number] IV 08/19/19 14:30 09/18/19 14:29 08/22/19 22:02 Sharif Painting MD Aug 23, 2019 13:27
--- NOTE | 2019-08-23 14:27 | Surgery Progress Note ---
Surgery Progress Note Subjective Additional Comments no acute events comfortable stable labs noted micro reviewed Objective Last 24 Hour Vital Signs Date Time Temp Pulse Resp B/P (MAP) Pulse Ox O2 Delivery O2 Flow Rate FiO2 08/23/19 12:00 98.2 53 18 149/76 (100) 96 08/23/19 09:00 Room Air 08/23/19 08:00 98.2 52 20 151/73 (99) 95 08/23/19 04:00 99.1 52 20 151/73 (99) 95 08/23/19 00:00 97.7 52 20 134/73 (93) 96 08/22/19 21:00 Room Air 08/22/19 21:00 98.0 59 19 131/65 (87) 95 08/22/19 16:00 98.2 57 19 156/65 (95) 93 I&O Intake and Output 08/22/19 08/23/19 19:00 07:00 Intake Total 475 ml 810 ml Output Total 800 ml 1200 ml Balance -325 ml -390 ml Intake Oral 120 ml IV Total 355 ml 450 ml Other 360 ml Output Urine Total 800 ml 1200 ml Dressing: other Wound: other Drains: other Cardiovascular: RSR Respiratory: decreased breath sounds Abdomen: soft, present bowel sounds Extremities: no cyanosis Laboratory Tests Test 08/23/19 04:45 White Blood Count 10.0 K/UL (4.8-10.8) Red Blood Count 4.09 M/UL (4.70-6.10) L Hemoglobin 10.1 G/DL (14.2-18.0) L Hematocrit 31.2 % (42.0-52.0) L Mean Corpuscular Volume 76 FL (80-99) L Mean Corpuscular Hemoglobin 24.8 PG (27.0-31.0) L Mean Corpuscular Hemoglobin Concent 32.5 G/DL (32.0-36.0) Red Cell Distribution Width 15.8 % (11.6-14.8) H Platelet Count 433 K/UL (150-450) Mean Platelet Volume 3.9 FL (6.5-10.1) L Neutrophils (%) (Auto) 76.3 % (45.0-75.0) H Lymphocytes (%) (Auto) 16.3 % (20.0-45.0) L Monocytes (%) (Auto) 6.2 % (1.0-10.0) Eosinophils (%) (Auto) 0.5 % (0.0-3.0) Basophils (%) (Auto) 0.7 % (0.0-2.0) Sodium Level 134 MMOL/L (136-145) L Potassium Level 3.4 MMOL/L (3.5-5.1) L Chloride Level 99 MMOL/L (98-107) Carbon Dioxide Level 21 MMOL/L (21-32) Anion Gap 14 mmol/L (5-15) Blood Urea Nitrogen 20 mg/dL (7-18) H Creatinine 2.6 MG/DL (0.55-1.30) H Estimat Glomerular Filtration Rate 25.5 mL/min (>60) Glucose Level 107 MG/DL (74-106) H Calcium Level 8.1 MG/DL (8.5-10.1) L Total Bilirubin 0.5 MG/DL (0.2-1.0) Aspartate Amino Transf (AST/SGOT) 20 U/L (15-37) Alanine Aminotransferase (ALT/SGPT) < 6 U/L (12-78) L Alkaline Phosphatase 130 U/L (46-116) H Total Protein 6.6 G/DL (6.4-8.2) Albumin 2.0 G/DL (3.4-5.0) L Globulin 4.6 g/dL Albumin/Globulin Ratio 0.4 (1.0-2.7) L Plan Problems: (1) Left leg pain Assessment & Plan: Patient presented admission complaining of left leg pain. On evaluation there is deformity left lower extremity plain films reviewed and obvious deformity noted as the femoral proximal is dislocated from the shaft. Patient is nonambulatory at baseline per report. He is somewhat cooperative examined with exam but a poor historian. Multiple skin concerns identified. Pt presented on admission with multiple Pressure Injuries, Bilat foot drop. Historical scar noted to L Hip Large Full Thickness Pressure Injury Buttocks with undermining and tunneling. Wound has irregular borders extends from Sacrum to L ischium and base of Scrotum,laterally from Outer R to Outer L gluteus.(L)18.9cm x (W)18.5cm x (D) 3.7cm, undermining clockwise 10-3 by 5.9cm @3o'clock,Tunneling clockwise @6o' clock by 2.7cm.Scattered Biofilm with [place] granulation at base of wound ,bone is palpable in tunneled and undermined areas. At distal base of wound, at scrotum is an area of slough-size of Quarter. Small amt non-odorous serous exudate.Periwound is pink with scattered brownish skin tone.( Full thickness Pressure injury R Ischium(L)9.5cm x (W)9.7cm x (D)4.2cm, Tunneling clockwise into perineum at 7o'clock by 5.3cm. Base of wound has scattered slough. Bone is palpable . Small amt seropurulent exudate. Mild odor which resolved post cleansing of wound.Erythema noted along edges. Additional area of slough noted periwound along borders clockwise @3-4o'clock. Non-Blanching erythema noted to Protruding bony prominence L Hip. Dry, loosening eschar lateral L tibia. (L)1.1cm x (W)0.4cm.[place] epithelial along borders. Stable dry, brown eschar noted to medial L tibia(L)4.3cm x (W)1cm. Stable dry eschar noted to Plantar L Heel. (L)4.5cm x (W)2cm. Periwound is boggy but blanchable.Historical scar alson noted periwound. Full thickness pressure injury Plantar R Heel (L)1.2cm x (W)2.5cm x (D)0.2cm. 80 % pink granulation,20% slough at base of wound. Edges are macerated. Small amt non-odorous serous exudate. Periwound is boggy but blanchable. Tx.Plan: Cleanse wound Buttocks with Saline. Loosely Pack wound including undermined areas with Hydrogel impregnated Kerlix.Apply Moisture Barrier Paste along borders. Cover with ABD Pads and secure with Tegaderm Daily and prn. Cleanse R Ischial Wound with Saline. Loosely pack with Hydrogel Impregnated Kerlix. Apply Moisture Barrier Periwound. Cover with ABD Pad and secure with Tegaderm Daily and prn. Apply Cavilon Skin Barrier to L Hip Bony Protrusion (Do Not Rub/ Massage area). Cover with Optifoam drsg. Change every 3 days and prn. Apply Betadine to Medial and lateral L Tibial wounds. Cover with Optifoam drsg every 3 days and prn. Apply Betadine to Plantar L Heel wound. Cover with Optifoam drsg. Change every 3 days and prn. Apply Betadine to Plantar R heel wound. Cover with Optifoam drsg every 3 days and prn. Reposition at least every 2hours or as tolerated. Place pillow between knees. Off-Load Heels with Pillow. APM/SUMI Mattress overlay. (2) Femur fracture Assessment & Plan: There is an old amputation defect across the mid femoral shaft. The mid to distal femur is unremarkable with normal articulation at the knee. The proximal femur including the femoral head is not visualized likely resected. There is deformity of the left hip/acetabulum likely posttraumatic. Adjacent heterotopic ossification noted. Surrounding soft tissue is normal. 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 can be done ioutpatient as this is chronic ostomy prolapse stable loop and functional (3) Urinary tract infection (4) Sacral decubitus ulcer Assessment & Plan: Patient with a prolapsed loop ostomy identified. Still functional viable reducible. (5) Paraplegia Cornelius Salgado Aug 23, 2019 14:27
--- NOTE | 2019-08-23 14:43 | General Progress Note ---
Assessment/Plan Problem List: (1) Urinary tract infection ICD Codes: N39.0 - Urinary tract infection, site not specified SNOMED: 21361420 (2) Paraplegia ICD Codes: G82.20 - Paraplegia, unspecified SNOMED: 00698866 (3) Sacral decubitus ulcer ICD Codes: L89.159 - Pressure ulcer of sacral region, unspecified stage SNOMED: 717605509 Status: stable, progressing Assessment/Plan: 59-year-old male with multiple medical problems including paraplegia, bedbound, dementia admitted with sepsis due to urinary tract infection and AMS. #UTI -> gram neg bacilli #Sepsis due to a UTI (fever, leukocytosis) - ID consult, Dr Freeman - s/p vanco & zosyn (08/15 - 08/16), linezolid (08/18-08/21) - ertapenem per cx sens (08/17 - ), doxycycline (08/22 -), x 5 more days per ID. - trend chem, cbc - probiotic - supportive care - IVF - c/w home midodrine #SEAN - improving #Hyponatremia #Hypomagnesemia - replete prn - hypovolemic - IVF per nephrology - vancomycin d/norbert 08/19/19 - avoid nephrotoxic medications - nephro consult, Dr Georges #Anemia, acute on chonic #Suspect OSMIN - suspect dilutional, no e/o active bleed - trend cbc - transfuse for Hb < 7 #Left leg pain #Hx Left leg amputation #Paraplegia - ctm - pain control -surgery consult appreciated #Sacral decubitus ulcer, POA - offloading per rn protocl q2h - surgery consult for wound, appreciate recs and mgt #Toxic metabolic encephalopathy - tx as above - delirium precautions FENPPX DVTPPX: SCD, HSQ GI PPX: na Fluids: mIVF x 2L Diet: regular Lines: PT/OT: deferred for now Code status: Full Dispo: [facility]) Reason for Continued Hospitalization: sepsis due to UTI 42 minutes spent on this encounter. 24 spent on counseling and care coordination , d/w CM, RN, consultants Time of note may not reflect time patient was seen. Subjective Date patient seen: Aug 23, 2019 ROS Limited/Unobtainable: No Constitutional: Denies: no symptoms, chills, diaphoresis, fever, malaise, weakness, other HEENT: Denies: no symptoms, eye pain, blurred vision, tearing, double vision, ear pain, ear discharge, nose pain, nose congestion, throat pain, throat swelling, mouth pain, mouth swelling, other Cardiovascular: Denies: no symptoms, chest pain, edema, irregular heart rate, lightheadedness, palpitations, syncope, other Respiratory: Denies: no symptoms, cough, orthopnea, shortness of breath, SOB with excertion, SOB at rest, sputum, stridor, wheezing, other Gastrointestinal/Abdominal: Denies: no symptoms, abdomen distended, abdominal pain, black stools, tarry stools, blood in stool, constipated, diarrhea, difficulty swallowing, nausea, poor appetite, poor fluid intake, rectal bleeding , vomiting, other Genitourinary: Denies: no symptoms, burning, discharge, frequency, flank pain, hematuria, incontinence, pain, urgency, other Neurologic/Psychiatric: Denies: no symptoms, anxiety, depressed, emotional problems, headache, numbness, paresthesia, pre-existing deficit, seizure, tingling, tremors, weakness, other Endocrine: Denies: no symptoms, excessive sweating, flushing, intolerance to cold, intolerance to heat, increased hunger, increased thirst, increased urine, unexplained weight gain, unexplained weight loss, other Hematologic/Lymphatic: Denies: no symptoms, anemia, easy bleeding, easy bruising, other Allergies: Coded Allergies: No Known Allergies (Unverified , 08/15/19) Subjective resting in bed comfortably. denies any pain Objective Last 24 Hour Vital Signs Date Time Temp Pulse Resp B/P (MAP) Pulse Ox O2 Delivery O2 Flow Rate FiO2 08/23/19 12:00 98.2 53 18 149/76 (100) 96 08/23/19 09:00 Room Air 08/23/19 08:00 98.2 52 20 151/73 (99) 95 08/23/19 04:00 99.1 52 20 151/73 (99) 95 08/23/19 00:00 97.7 52 20 134/73 (93) 96 08/22/19 21:00 Room Air 08/22/19 21:00 98.0 59 19 131/65 (87) 95 08/22/19 16:00 98.2 57 19 156/65 (95) 93 Intake and Output 08/22/19 08/23/19 19:00 07:00 Intake Total 475 ml 810 ml Output Total 800 ml 1200 ml Balance -325 ml -390 ml Intake Oral 120 ml IV Total 355 ml 450 ml Other 360 ml Output Urine Total 800 ml 1200 ml Laboratory Tests 08/23/19 04:45: White Blood Count 10.0, Red Blood Count 4.09L, Hemoglobin 10.1L, Hematocrit 31.2L, Mean Corpuscular Volume 76L, Mean Corpuscular Hemoglobin 24.8L, Mean Corpuscular Hemoglobin Concent 32.5, Red Cell Distribution Width 15.8H, Platelet Count 433, Mean Platelet Volume 3.9L, Neutrophils (%) (Auto) 76.3H, Lymphocytes (%) (Auto) 16.3L, Monocytes (%) (Auto) 6.2, Eosinophils (%) (Auto) 0.5, Basophils (%) (Auto) 0.7, Sodium Level 134L, Potassium Level 3.4L, Chloride Level 99, Carbon Dioxide Level 21, Anion Gap 14, Blood Urea Nitrogen 20H, Creatinine 2.6H, Estimat Glomerular Filtration Rate 25.5, Glucose Level 107H, Calcium Level 8.1L, Total Bilirubin 0.5, Aspartate Amino Transf (AST/SGOT ) 20, Alanine Aminotransferase (ALT/SGPT) < 6L, Alkaline Phosphatase 130H, Total Protein 6.6, Albumin 2.0L, Globulin 4.6, Albumin/Globulin Ratio 0.4L Height (Feet): 5 Height (Inches): 7.00 Weight (Pounds): 137 General Appearance: no apparent distress, alert EENT: PERRL/EOMI Neck: supple Cardiovascular: normal rate, regular rhythm Respiratory/Chest: lungs clear, normal breath sounds Abdomen: non tender, soft Neurologic: alert Kamaljit Sorensen MD Aug 23, 2019 14:43
[2019-08-23 16:00] VITALS: BP 147/83
--- NOTE | 2019-08-23 16:30 | NUR ---
*-* INSURANCE *-* UPDATED CLINICALS AND REVIEWS HAVE BEEN FAXED TO:*-* INSURANCE *-* [facility] REF# [id number] F: [phone] *-* RECEIVED A DENIAL FROM [employer] FOR NON-CERTIFIED CLINICALS ALSO SENT TO THEM NO INFO IN BAR ABOUT THEM *-* FAX DOES NOT HAVE PHONE NUMBER OR FAX NUMBER TO SUBMIT CLINICALS
--- NOTE | 2019-08-23 16:38 | NUR ---
LICENSED AND CERTIFIED MIDWIFE NOTE CALL MADE TO [employer] ([facility]) @ [phone]. NO ANSWER AT TIME OF CALL. VOICEMAIL LEFT REQUESTING CALL BACK IN REF TO AUTH #[id number].
--- NOTE | 2019-08-23 18:00 | NUR ---
NURSE NOTES: Patient resting,bed alarm on.
--- NOTE | 2019-08-23 19:10 | NUR ---
HAND-OFF: Report given to Sandoval AGRAWAL.
--- NOTE | 2019-08-23 19:30 | NUR ---
Received report from TANJA Mckee. Received pt in bed, awake, alert, confused, bilateral soft wrist restraints in place, IV R hand patent and intact. IV fluid infusing as ordered. Colostomy no output noted, stoma pinkish color. Reposition pt for comfort. No distress noted. Will continue to monitor.
[2019-08-23 20:00] VITALS: BP 157/85
[2019-08-23] MEDS: Doxycycline Monohydrate 100mg ORAL SCH (21:00)
[2019-08-24] VITALS: BP 138/72
[2019-08-24 04:00] VITALS: BP 138/69
--- NOTE | 2019-08-24 07:19 | NUR ---
HAND-OFF: Report given to Hernan Miles RN. Pt in stable condition.
--- NOTE | 2019-08-24 07:43 | NUR ---
NURSE NOTES: received report from TANJA Nick. patient in bed. a&Ox3, verbally responsive. no respiratory distress noted. no pain at this time. colostomy on right abd. stoma pink, protruding. normal bowel. IV on RFA 24g. saline lock. running fluid @75/hr. F./c draining. yellow. no hematuria noted. p200 mattress for wound management. soft restraint both wrists to prevent pull devices for care. contact isolation. PPE at all times. bed in the lowest position and locked. call light within reach. will continue to provide plan of care.
[2019-08-24 08:00] VITALS: BP 160/75
--- NOTE | 2019-08-24 08:00 | NUR ---
NURSE NOTES: held midodrine 5mg po tab d/t high blood pressure. 160/75. will continue to monitor.
[2019-08-24] MEDS: Doxycycline Monohydrate 100mg ORAL SCH ×2 (08:34→21:00)
[2019-08-24] MEDS: clonazePAM 0.5mg tab ORAL SCH (08:34)
[2019-08-24] MEDS: Heparin 5000 units/ml inj SUBQ SCH ×2 (08:36→21:21)
[2019-08-24] MEDS: Ertapenem 500mg ivpb (q24h) IV SCH ×2 (10:26)
[2019-08-24 12:00] VITALS: BP 141/69
--- NOTE | 2019-08-24 13:00 | NUR ---
NURSE NOTES: held midodrine 5mg PO tab d/t high blood pressure. 141/69. will continue to monitor blood pressure and patient condition.
--- NOTE | 2019-08-24 13:08 | General Progress Note ---
Assessment/Plan Problem List: (1) Urinary tract infection ICD Codes: N39.0 - Urinary tract infection, site not specified SNOMED: 51238333 (2) Paraplegia ICD Codes: G82.20 - Paraplegia, unspecified SNOMED: 14740061 (3) Sacral decubitus ulcer ICD Codes: L89.159 - Pressure ulcer of sacral region, unspecified stage SNOMED: 285268066 Status: stable, progressing Assessment/Plan: 59-year-old male with multiple medical problems including paraplegia, bedbound, dementia admitted with sepsis due to urinary tract infection and AMS. #UTI -> gram neg bacilli #Sepsis due to a UTI (fever, leukocytosis) - ID consult, Dr Freeman - s/p vanco & zosyn (08/15 - 08/16), linezolid (08/18-08/21) - ertapenem per cx sens (08/17 - ), doxycycline (08/22 -), x 4 more days per ID. - trend chem, cbc - probiotic - supportive care - IVF - c/w home midodrine #SEAN - improving #Hyponatremia #Hypomagnesemia - replete prn - hypovolemic - IVF per nephrology - vancomycin d/norbert 08/19/19 - avoid nephrotoxic medications - nephro consult, Dr Georges -SEAN improving with IVF as above, but not quite ready for d/c per nephro. IF better by tmrw, will d/c to SNF. #Anemia, acute on chonic #Suspect OSMIN - suspect dilutional, no e/o active bleed - trend cbc - transfuse for Hb < 7 #Left leg pain #Hx Left leg amputation #Paraplegia - ctm - pain control -surgery consult appreciated #Sacral decubitus ulcer, POA - offloading per rn protocl q2h - surgery consult for wound, appreciate recs and mgt #Toxic metabolic encephalopathy - tx as above - delirium precautions FENPPX DVTPPX: SCD, HSQ GI PPX: na Fluids: mIVF x 2L Diet: regular Lines: PT/OT: deferred for now Code status: Full Dispo: SNF ([facility]) Reason for Continued Hospitalization: sepsis due to UTI 37 minutes spent on this encounter. 20 spent on counseling and care coordination , d/w CM, RN, consultants Time of note may not reflect time patient was seen. Subjective Date patient seen: Aug 24, 2019 ROS Limited/Unobtainable: No Constitutional: Denies: no symptoms, chills, diaphoresis, fever, malaise, weakness, other HEENT: Denies: no symptoms, eye pain, blurred vision, tearing, double vision, ear pain, ear discharge, nose pain, nose congestion, throat pain, throat swelling, mouth pain, mouth swelling, other Cardiovascular: Denies: no symptoms, chest pain, edema, irregular heart rate, lightheadedness, palpitations, syncope, other Respiratory: Denies: no symptoms, cough, orthopnea, shortness of breath, SOB with excertion, SOB at rest, sputum, stridor, wheezing, other Gastrointestinal/Abdominal: Denies: no symptoms, abdomen distended, abdominal pain, black stools, tarry stools, blood in stool, constipated, diarrhea, difficulty swallowing, nausea, poor appetite, poor fluid intake, rectal bleeding , vomiting, other Genitourinary: Denies: no symptoms, burning, discharge, frequency, flank pain, hematuria, incontinence, pain, urgency, other Neurologic/Psychiatric: Denies: no symptoms, anxiety, depressed, emotional problems, headache, numbness, paresthesia, pre-existing deficit, seizure, tingling, tremors, weakness, other Endocrine: Denies: no symptoms, excessive sweating, flushing, intolerance to cold, intolerance to heat, increased hunger, increased thirst, increased urine, unexplained weight gain, unexplained weight loss, other Hematologic/Lymphatic: Denies: no symptoms, anemia, easy bleeding, easy bruising, other Allergies: Coded Allergies: No Known Allergies (Unverified , 08/15/19) Subjective resting in bed comfortably. denies any pain Objective Last 24 Hour Vital Signs Date Time Temp Pulse Resp B/P (MAP) Pulse Ox O2 Delivery O2 Flow Rate FiO2 08/24/19 12:00 98.0 60 18 141/69 (93) 96 08/24/19 09:00 Room Air 08/24/19 08:00 98.7 59 18 160/75 (103) 95 08/24/19 04:00 98.2 52 18 138/69 (92) 95 08/24/19 00:00 99.2 52 18 138/72 (94) 96 08/23/19 21:00 Room Air 08/23/19 20:00 99.5 55 20 157/85 (109) 97 08/23/19 16:00 98.2 51 18 147/83 (104) 97 Intake and Output 08/23/19 08/24/19 19:00 07:00 Intake Total 750 ml 825 ml Output Total 1600 ml 1700 ml Balance -850 ml -875 ml IV Total 750 ml 825 ml Output Urine Total 1600 ml 1600 ml Stool Total 100 ml Height (Feet): 5 Height (Inches): 7.00 Weight (Pounds): 137 General Appearance: no apparent distress EENT: PERRL/EOMI Neck: supple Cardiovascular: normal rate, regular rhythm Respiratory/Chest: lungs clear, normal breath sounds Abdomen: non tender, soft Edema: mild edema Neurologic: alert Kamaljit Sorensen MD Aug 24, 2019 13:08
--- NOTE | 2019-08-24 14:10 | Surgery Progress Note ---
Surgery Progress Note Subjective Additional Comments improving labs stable wbc improved exam stable dressings going well Objective Last 24 Hour Vital Signs Date Time Temp Pulse Resp B/P (MAP) Pulse Ox O2 Delivery O2 Flow Rate FiO2 08/24/19 12:00 98.0 60 18 141/69 (93) 96 08/24/19 09:00 Room Air 08/24/19 08:00 98.7 59 18 160/75 (103) 95 08/24/19 04:00 98.2 52 18 138/69 (92) 95 08/24/19 00:00 99.2 52 18 138/72 (94) 96 08/23/19 21:00 Room Air 08/23/19 20:00 99.5 55 20 157/85 (109) 97 08/23/19 16:00 98.2 51 18 147/83 (104) 97 I&O Intake and Output 08/23/19 08/24/19 19:00 07:00 Intake Total 750 ml 825 ml Output Total 1600 ml 1700 ml Balance -850 ml -875 ml IV Total 750 ml 825 ml Output Urine Total 1600 ml 1600 ml Stool Total 100 ml Dressing: dry Wound: clean Cardiovascular: RSR Respiratory: clear Abdomen: soft, non-tender, present bowel sounds Extremities: no cyanosis, other Plan Problems: (1) Left leg pain Assessment & Plan: Patient presented admission complaining of left leg pain. On evaluation there is deformity left lower extremity plain films reviewed and obvious deformity noted as the femoral proximal is dislocated from the shaft. Patient is nonambulatory at baseline per report. He is somewhat cooperative examined with exam but a poor historian. Multiple skin concerns identified. Pt presented on admission with multiple Pressure Injuries, Bilat foot drop. Historical scar noted to L Hip Large Full Thickness Pressure Injury Buttocks with undermining and tunneling. Wound has irregular borders extends from Sacrum to L ischium and base of Scrotum,laterally from Outer R to Outer L gluteus.(L)18.9cm x (W)18.5cm x (D) 3.7cm, undermining clockwise 10-3 by 5.9cm @3o'clock,Tunneling clockwise @6o' clock by 2.7cm.Scattered Biofilm with [place] granulation at base of wound ,bone is palpable in tunneled and undermined areas. At distal base of wound, at scrotum is an area of slough-size of Quarter. Small amt non-odorous serous exudate.Periwound is pink with scattered brownish skin tone.( Full thickness Pressure injury R Ischium(L)9.5cm x (W)9.7cm x (D)4.2cm, Tunneling clockwise into perineum at 7o'clock by 5.3cm. Base of wound has scattered slough. Bone is palpable . Small amt seropurulent exudate. Mild odor which resolved post cleansing of wound.Erythema noted along edges. Additional area of slough noted periwound along borders clockwise @3-4o'clock. Non-Blanching erythema noted to Protruding bony prominence L Hip. Dry, loosening eschar lateral L tibia. (L)1.1cm x (W)0.4cm.[place]edar [place]rest epithelial along borders. Stable dry, brown eschar noted to medial L tibia(L)4.3cm x (W)1cm. Stable dry eschar noted to Plantar L Heel. (L)4.5cm x (W)2cm. Periwound is boggy but blanchable.Historical scar alson noted periwound. Full thickness pressure injury Plantar R Heel (L)1.2cm x (W)2.5cm x (D)0.2cm. 80 % pink granulation,20% slough at base of wound. Edges are macerated. Small amt non-odorous serous exudate. Periwound is boggy but blanchable. Tx.Plan: Cleanse wound Buttocks with Saline. Loosely Pack wound including undermined areas with Hydrogel impregnated Kerlix.Apply Moisture Barrier Paste along borders. Cover with ABD Pads and secure with Tegaderm Daily and prn. Cleanse R Ischial Wound with Saline. Loosely pack with Hydrogel Impregnated Kerlix. Apply Moisture Barrier Periwound. Cover with ABD Pad and secure with Tegaderm Daily and prn. Apply Cavilon Skin Barrier to L Hip Bony Protrusion (Do Not Rub/ Massage area). Cover with Optifoam drsg. Change every 3 days and prn. Apply Betadine to Medial and lateral L Tibial wounds. Cover with Optifoam drsg every 3 days and prn. Apply Betadine to Plantar L Heel wound. Cover with Optifoam drsg. Change every 3 days and prn. Apply Betadine to Plantar R heel wound. Cover with Optifoam drsg every 3 days and prn. Reposition at least every 2hours or as tolerated. Place pillow between knees. Off-Load Heels with Pillow. APM/SUMI Mattress overlay. (2) Femur fracture Assessment & Plan: There is an old amputation defect across the mid femoral shaft. The mid to distal femur is unremarkable with normal articulation at the knee. The proximal femur including the femoral head is not visualized likely resected. There is deformity of the left hip/acetabulum likely posttraumatic. Adjacent heterotopic ossification noted. Surrounding soft tissue is normal. 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 can be done ioutpatient as this is chronic ostomy prolapse stable loop and functional (3) Urinary tract infection (4) Sacral decubitus ulcer Assessment & Plan: Patient with a prolapsed loop ostomy identified. Still functional viable reducible. outpt follow up for revision (5) Paraplegia Cornelius Salgado Aug 24, 2019 14:10
--- NOTE | 2019-08-24 14:30 | Nephrology Progress Note ---
Assessment/Plan Plan #Maxwell - likely due to vancomycin toxicity #sepsis due to UTI #Hyponatremia #hypomagnesemia #history for femur amputation #Left leg pain #Hx Left leg amputation #Paraplegia #Sacral decub ulcer #anemia - Cr down to 3.0 - will Dc vanco - check renal US-> IMPRESSION: Mildly echogenic right kidney. This is nonspecific but may suggest renal parenchymal disease. No hydronephrosis. - placed donohue - continue NS 75cc/hr - Decrease midodrine to 5mg TID - DC VANCO - antibiotics per D - follow urine cx - monitor mag, phos, BMP daily - surgery eval - pain control - monitor WBC - monitor UOP - avoid nephrotoxins Time spent 70 minutes, greater than 50% on care coordination and counseling Subjective ROS Limited/Unobtainable: No Constitutional: Denies: no symptoms, chills, diaphoresis, fever, malaise, weakness, other HEENT: Denies: no symptoms, eye pain, blurred vision, tearing, double vision, ear pain, ear discharge, nose pain, nose congestion, throat pain, throat swelling, mouth pain, mouth swelling, other Genitourinary: Denies: no symptoms, burning, discharge, frequency, flank pain, hematuria, incontinence, pain, urgency, other Subjective Cr downtrending Dced vanco check renal US-> IMPRESSION: Mildly echogenic right kidney. This is nonspecific but may suggest renal parenchymal disease. No hydronephrosis. Objective Objective Last 24 Hour Vital Signs Date Time Temp Pulse Resp B/P (MAP) Pulse Ox O2 Delivery O2 Flow Rate FiO2 08/24/19 12:00 98.0 60 18 141/69 (93) 96 08/24/19 09:00 Room Air 08/24/19 08:00 98.7 59 18 160/75 (103) 95 08/24/19 04:00 98.2 52 18 138/69 (92) 95 08/24/19 00:00 99.2 52 18 138/72 (94) 96 08/23/19 21:00 Room Air 08/23/19 20:00 99.5 55 20 157/85 (109) 97 08/23/19 16:00 98.2 51 18 147/83 (104) 97 Intake and Output 08/23/19 08/24/19 19:00 07:00 Intake Total 750 ml 825 ml Output Total 1600 ml 1700 ml Balance -850 ml -875 ml IV Total 750 ml 825 ml Output Urine Total 1600 ml 1600 ml Stool Total 100 ml Height (Feet): 5 Height (Inches): 7.00 Weight (Pounds): 137 Sienna Georges M.D. Aug 24, 2019 14:30
--- NOTE | 2019-08-24 14:58 | NUR ---
VETERINARY VIROLOGIST NOTE CALL BACK RECEIVED FROM MELISSA Baldwin IN RE TO BRENDEN LEFT REQUESTING CALL BACK TO THIS CM. MELISSA INFORMED THIS CM THAT CM TO CONTACT IN RE TO THIS PATIENT IS BOONE @ [phone]. CALL MADE TO BOONE WITH NO ANSWER. BRIANA LEFT REQUESTING CALL BACK IN RE TO AUTH #[id number].
--- NOTE | 2019-08-24 15:07 | NUR ---
CASE MANAGEMENT:REVIEW SI;GRAM NEG UTI. SEPSIS. SEAN. TOX MET ENCEPHALOPATHY. 99.5 52 18 160/75 95% ON RA IS;DOXYCYCLINE PO Q12 HR ERTAPENEM IV QD MIDODRINE PO TID IVF NS @ 75 ML/HR HEPARIN SUBQ Q12 HR MED SURG STATUS DCP;FROM [facility];DC TO SNF WHEN STABLE
[2019-08-24 16:00] VITALS: BP 134/78
--- NOTE | 2019-08-24 16:00 | NUR ---
COMMUNITY RECREATION COORDINATOR NOTE CALL BACK RECEIVED FROM BOONE ROBERSON WITH REQUESTING PEER TO PEER. REQUESTS FOR MD AVAILABILITY WITH 2 DATES AND TIMES BE CONFIRMED AND SHE WILL COORDINATE PEER TO PEER. Addendum: 08/24/19 at 1717 by KELLY RICHMOND LVN LVN DR COURTNEY INFORMED OF REQUESTED PEER TO PEER. WILL BE AVAILABLE ANYTIME DURING BUSINESS HOURS. AVAILABILITY CONVEYED TO BOONE AT . WILL CALL DR COURTNEY ON 08/24 BETWEEN 11 AM - [address] COURTNEY AND HE IS OK WITH THIS TIME FRAME.
--- NOTE | 2019-08-24 16:07 | Infectious Diseases Prog Note ---
Assessment/Plan Assessment/Plan ASSESSMENT AND PLAN: 1. 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 endocarditis, ? mrsa/ proteus sacral wound infection, sepsis, leukocytosis, fevers, mrsa colonization, ARF - ertapenem and doxycycline po for 4 days more - surveillance blood cultures - negative - wound care per surgery - monitor labs - TTE without vegetations 2. Paraplegia. 3. Chronic catheter. 4. Sacral wound. 5. Anemia. 6. No history of diabetes or hypertension. 7. Pain management per primary care team. 8. No known allergies. 9. Social history is negative. 10. Family history is contributory. 11. MAR was noted. 12. Case discussed with RN. Subjective Constitutional: Reports: fatigue; Denies: fever HEENT: Denies: congestion Respiratory: Denies: shortness of breath Cardiovascular: Denies: chest pain Gastrointestinal/Abdominal: Denies: nausea Genitourinary: Reports: other - + donohue Neurologic: Denies: headache Hematologic: Denies: bleeding Musculoskeletal: Denies: pain Allergies: Coded Allergies: No Known Allergies (Unverified , 08/15/19) Objective Vital Signs Last 24 Hour Vital Signs Date Time Temp Pulse Resp B/P (MAP) Pulse Ox O2 Delivery O2 Flow Rate FiO2 08/24/19 12:00 98.0 60 18 141/69 (93) 96 08/24/19 09:00 Room Air 08/24/19 08:00 98.7 59 18 160/75 (103) 95 08/24/19 04:00 98.2 52 18 138/69 (92) 95 08/24/19 00:00 99.2 52 18 138/72 (94) 96 08/23/19 21:00 Room Air 08/23/19 20:00 99.5 55 20 157/85 (109) 97 Height (Feet): 5 Height (Inches): 7.00 Weight (Pounds): 137 General Appearance: no acute distress HEENT: normocephalic, atraumatic, anicteric, mucous membranes moist Respiratory/Chest: lungs clear, normal breath sounds, no respiratory distress Cardiovascular: normal rate, regular rhythm, no gallop/murmur, no JVD Abdomen: normal bowel sounds, soft, non tender, no organomegaly, non distended Genitourinary: other - + donohue Extremities: no cyanosis Skin: no rash, other - wound Neurologic/Psychiatric: truck 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 FINDINGS: A single one view chest is obtained. Vascularity is normal. The lung hess are clear bilaterally. Cardiac and mediastinal silhouette are within normal limits. CP angles are sharp. The bony thorax appear unremarkable. IMPRESSION: NO ACUTE CARDIOPULMONARY DISEASE. Microbiology Date/Time Source Procedure Growth Status 08/18/19 16:45 Blood Blood Culture - Final NO GROWTH AFTER 5 DAYS Complete 08/15/19 18:50 Nasopharynx Coronavirus COVID-19 PCR (GENE) - Final Complete 08/19/19 15:14 Urine,Clean Catch Urine Culture - Final NO GROWTH AFTER 48 HOURS Complete 08/16/19 18:20 Sacral Wound Gram Stain - Final Complete 08/16/19 18:20 Wound Culture - Final Staphylococcus Aureus - Mrsa Proteus Mirabilis Complete Labs Test 08/22/19 07:20 08/23/19 04:45 08/24/19 15:15 Sodium Level 136 MMOL/L (136-145) 134 MMOL/L (136-145) Potassium Level 3.8 MMOL/L (3.5-5.1) 3.4 MMOL/L (3.5-5.1) Chloride Level 101 MMOL/L (98-107) 99 MMOL/L (98-107) Carbon Dioxide Level 23 MMOL/L (21-32) 21 MMOL/L (21-32) Anion Gap 12 mmol/L (5-15) 14 mmol/L (5-15) Blood Urea Nitrogen 23 mg/dL (7-18) 20 mg/dL (7-18) Creatinine 3.0 MG/DL (0.55-1.30) 2.6 MG/DL (0.55-1.30) Estimat Glomerular Filtration Rate 21.6 mL/min (>60) 25.5 mL/min (>60) Glucose Level 109 MG/DL (74-106) 107 MG/DL (74-106) Calcium Level 8.3 MG/DL (8.5-10.1) 8.1 MG/DL (8.5-10.1) White Blood Count 10.0 K/UL (4.8-10.8) Red Blood Count 4.09 M/UL (4.70-6.10) Hemoglobin 10.1 G/DL (14.2-18.0) Hematocrit 31.2 % (42.0-52.0) Mean Corpuscular Volume 76 FL (80-99) Mean Corpuscular Hemoglobin 24.8 PG (27.0-31.0) Mean Corpuscular Hemoglobin Concent 32.5 G/DL (32.0-36.0) Red Cell Distribution Width 15.8 % (11.6-14.8) Platelet Count 433 K/UL (150-450) Mean Platelet Volume 3.9 FL (6.5-10.1) Neutrophils (%) (Auto) 76.3 % (45.0-75.0) Lymphocytes (%) (Auto) 16.3 % (20.0-45.0) Monocytes (%) (Auto) 6.2 % (1.0-10.0) Eosinophils (%) (Auto) 0.5 % (0.0-3.0) Basophils (%) (Auto) 0.7 % (0.0-2.0) Total Bilirubin 0.5 MG/DL (0.2-1.0) Aspartate Amino Transf (AST/SGOT) 20 U/L (15-37) Alanine Aminotransferase (ALT/SGPT) < 6 U/L (12-78) Alkaline Phosphatase 130 U/L (46-116) Total Protein 6.6 G/DL (6.4-8.2) Albumin 2.0 G/DL (3.4-5.0) Globulin 4.6 g/dL Albumin/Globulin Ratio 0.4 (1.0-2.7) Laboratory Tests Test 08/24/19 15:15 Sodium Level Pending Potassium Level Pending Chloride Level Pending Carbon Dioxide Level Pending Blood Urea Nitrogen Pending Creatinine Pending Estimat Glomerular Filtration Rate Pending Glucose Level Pending Calcium Level Pending Current Medications Medications (Trade) Dose Ordered Sig/Mya Route PRN Reason Start Time Stop Time Status Last Admin Dose Admin Acetaminophen (Tylenol) 650 mg Q6H PRN ORAL Temp >100.5 08/16/19 00:45 09/15/19 00:44 08/21/19 21:47 Doxycycline Monohydrate (Doxycycline Monohydrate) 100 mg EVERY 12 HOURS ORAL 08/23/19 21:00 08/30/19 20:59 08/24/19 08:34 Ertapenem 0.5 gm/ Sodium Chloride 55 ml @ 110 mls/hr Q24H IV 08/21/19 10:00 08/26/19 09:59 08/24/19 10:26 Heparin Sodium (Porcine) (Heparin 5000 units/ml) 5,000 units EVERY 12 HOURS SUBQ 08/16/19 09:00 09/30/19 08:59 08/24/19 08:36 Midodrine (Pro-Amatine) 5 mg THREE TIMES A DAY ORAL 08/19/19 18:00 11/14/19 08:59 08/23/19 18:45 Sodium Chloride 1,000 ml @ 75 mls/hr [id number] IV 08/19/19 14:30 09/18/19 14:29 08/24/19 14:35 Sharif Painting MD Aug 24, 2019 16:07
[2019-08-24 16:29] LABS: ANION GAP 14 mmol/L (5-15); BLOOD UREA NITROGEN 19 mg/dL (7-18); CALCIUM 8.1 MG/DL (8.5-10.1); CARBON DIOXIDE 22 MMOL/L (21-32); CHLORIDE 102 MMOL/L (98-107); CREATININE 1.9 MG/DL (0.55-1.30); SODIUM 138 MMOL/L (136-145)
--- NOTE | 2019-08-24 16:43 | NUR ---
*-* INSURANCE *-* UPDATED CLINICALS AND REVIEWS HAVE BEEN FAXED TO:*-* INSURANCE *-* [facility] REF# [id number] F: [phone]
--- NOTE | 2019-08-24 18:22 | NUR ---
NURSE NOTES: BMP resulted with K3.0. called DR.Aslan Georges and left message. received call from Dr. Kamaljit Sorensen. new order K-dur 40meq once. order noted and carried out.
--- NOTE | 2019-08-24 18:24 | NUR ---
NURSE NOTES: held midodrine 5mg po tab d/t BP 134/78. will continue to monitor.
--- NOTE | 2019-08-24 19:09 | NUR ---
HAND-OFF: Report given to TANJA Wood .
--- NOTE | 2019-08-24 19:15 | NUR ---
NURSE NOTES: Patient in bed, awake, able to make needs known. Bilateral soft wrist restraints in progress. IV intact and patent. Colostomy noted; bag in place. No C/O pain at this time. Bed locked and in lowest position. Bed alarm on. Call light in reach. Will continue to monitor.
[2019-08-24 20:00] VITALS: BP 142/71
[2019-08-25] VITALS (7 sets, daily range): BP systolic 124–168; BP diastolic 72–81
--- NOTE | 2019-08-25 07:09 | NUR ---
HAND-OFF: Report given to TANJA Vargas.
--- NOTE | 2019-08-25 07:10 | NUR ---
NURSE NOTES: Received report from TANJA Wood. Patient awake, on room air, no signs of distress or labored breathing. IV intact, patent, and infusing fluids. Colostomy in left lower quadrant connected to draining bag. Bilateral soft wrists on. Bed in lowest position. Will continue with plan of care.
--- NOTE | 2019-08-25 08:05 | NUR ---
RD ASSESSMENT & RECOMMENDATIONS SEE CARE ACTIVITY FOR COMPLETE ASSESSMENT DAILY ESTIMATED NEEDS: Needs based on Advanced wounds/ 54kg 30-35 kcals/kg 4628-3952 total kcals 1.5-2.0 g protein/kg 81-108 g total protein 25-30 mL/kg 2504-9259 total fluid mLs NUTRITION DIAGNOSIS: Increased kcal/prot/micronutrients needs R/T wound healing as evidenced by pt admitted w/ advanced wounds, including full thickness wounds @ buttocks, R ischium (tunneling, bone palpable), and plantar R Heel, w/ poor po intake. CURRENT DIET:REGULAR, mech soft ground PO DIET RECOMMENDATIONS: REGULAR, texture as tolerated or per LINE PATROLLER ENTERAL NUTRITION RECOMMENDATIONS: CONSULT RD IF NON ORAL FEEDS ARE PART OF POC ADDITIONAL RECOMMENDATIONS: * Per SNF: HT=66" CM=664nsq (as of 08/14/19) -> rec weekly calibrated bedscale wt * Ensure Enlive TID w/ meals (350kcal/20g prot each) * Monitor PO intake closely- refusing meals noted, encourage oral intake -> consider D5 w/ current poor po intake, monitor for hypoglycemia * Wound healing: add MVI w/ mineral 1 tab QD, Vit C 500mg BID ZnSO4 220mg QD x 10 days, Amari 1pkt BID as tolerated
--- NOTE | 2019-08-25 08:54 | NUR ---
NURSE NOTES: Patient's 0800 BP taken by [address]VISOR ROAD ADMINISTRATOR was 168/81 with HR 59. RN retook BP which was 163/73 and 51 HR. Left message to notify Dr. Sorensen, awaiting response. Charge nurse aware.
[2019-08-25] MEDS: Doxycycline Monohydrate 100mg ORAL SCH ×2 (09:09→20:23)
[2019-08-25] MEDS: Heparin 5000 units/ml inj SUBQ SCH ×2 (09:13→20:34)
[2019-08-25] MEDS ORDERED: HydrALAZINE 25mg tab ORAL SCH (09:15)
--- NOTE | 2019-08-25 10:21 | NUR ---
DISCHARGE PLANNING PER GLADIS AT [facility], A NEW FOUZIA IS NEEDED FROM PATIENTS INSURANCE FOR READMISSION TO SNF BED HOLD HAS . NO CM ON RECORD FOR HN. CALL MADE TO BOONE ROBERSON AT [phone] TO REQUEST CM INFO. NO ANSWER AT TIME OF CALL. LEFT REQUESTING CALL BACK.
[2019-08-25] MEDS ORDERED: DOXYCYCLINE MO100 MG ORAL (10:30)
[2019-08-25] MEDS ORDERED: HEPARIN SO5000 UNIT2 SUBQ (10:30)
[2019-08-25] MEDS: Ertapenem 500mg ivpb (q24h) IV SCH ×2 (10:37)
[2019-08-25] MEDS ORDERED: INVANZ1 G1 IM (10:53)
--- NOTE | 2019-08-25 13:12 | NUR ---
YIELD ANALYST NOTE S/W BOONE ROBERSON @ [facility] [place] [facility] STATED SHE WILL NOTIFY THE BOOM CAT OPERATOR IN RE TO [place] AND CALL CM BACK WITH UPDATE.
--- NOTE | 2019-08-25 14:34 | Nephrology Progress Note ---
Assessment/Plan Plan #Maxwell - likely due to vancomycin toxicity #sepsis due to UTI #Hyponatremia #hypomagnesemia #history for femur amputation #Left leg pain #Hx Left leg amputation #Paraplegia #Sacral decub ulcer #anemia - Cr downtrending - check renal US-> IMPRESSION: Mildly echogenic right kidney. This is nonspecific but may suggest renal parenchymal disease. No hydronephrosis. - placed donohue - Dc ivf - replete lytes - DC midodrine to 5mg TID - DC VANCO - antibiotics per D - follow urine cx - monitor mag, phos, BMP daily - surgery eval - pain control - monitor WBC - monitor UOP - avoid nephrotoxins Time spent 70 minutes, greater than 50% on care coordination and counseling Subjective ROS Limited/Unobtainable: Yes Subjective Cr downtrending Dced vanco check renal US-> IMPRESSION: Mildly echogenic right kidney. This is nonspecific but may suggest renal parenchymal disease. No hydronephrosis. Objective Objective Last 24 Hour Vital Signs Date Time Temp Pulse Resp B/P (MAP) Pulse Ox O2 Delivery O2 Flow Rate FiO2 08/25/19 12:00 98.0 51 18 147/74 (98) 96 08/25/19 09:17 163/75 08/25/19 09:00 Room Air 08/25/19 08:50 51 163/75 (104) 08/25/19 08:00 97.3 59 18 168/81 (110) 98 08/25/19 04:00 97.4 51 20 136/72 (93) 98 08/25/19 00:00 99.0 55 20 143/75 (97) 95 08/24/19 21:00 Room Air 08/24/19 20:00 97.0 58 20 142/71 (94) 96 08/24/19 16:00 98.8 60 19 134/78 (96) 97 Intake and Output 08/24/19 08/25/19 19:00 07:00 Intake Total 785 ml 1035 ml Output Total 1150 ml 1300 ml Balance -365 ml -265 ml IV Total 785 ml 675 ml Other 360 ml Output Urine Total 1150 ml 1300 ml Laboratory Tests 08/24/19 15:15: Sodium Level 138, Potassium Level 3.0L, Chloride Level 102, Carbon Dioxide Level 22, Anion Gap 14, Blood Urea Nitrogen 19H, Creatinine 1.9H, Estimat Glomerular Filtration Rate 36.6, Glucose Level 86, Calcium Level 8.1L Height (Feet): 5 Height (Inches): 7.00 Weight (Pounds): 137 Sienna Georges M.D. Aug 25, 2019 14:34
--- NOTE | 2019-08-25 15:12 | Discharge Summary ---
Discharge Summary Hospital Course Date of Admission Aug 15, 2019 at 17:40 Date of Discharge 08/25/2019 Admitting Diagnosis sepsis due to UTI, SEAN HPI Chino Castellanos is a 59 year old male who was admitted on Aug 15, 2019 at 17: 40 from SNF with left knee pain, but was found to have sepsis due to UTI and SEAN Consultations ID, general surgery, nephrology Hospital Course 59-year-old male with multiple medical problems including paraplegia, bedbound, dementia admitted with sepsis due to urinary tract infection and AMS. #UTI -> gram neg bacilli #Sepsis due to a UTI (fever, leukocytosis) - ID consult, Dr Freeman - s/p vanco & zosyn (08/15 - 08/16), linezolid (08/18-08/21) - ertapenem per cx sens (08/17 - ), doxycycline (08/22 -), x 3 more days per ID. - trend chem, cbc - probiotic - supportive care - IVF - c/w home midodrine -> d/c'ed given hypertension. #SEAN - improving #Hyponatremia #Hypomagnesemia - replete prn - hypovolemic - IVF per nephrology - vancomycin d/norbert 08/19/19 - avoid nephrotoxic medications - nephro consult, Dr Georges -continue lasix PO 20 mg daily. #Anemia, acute on chonic #Suspect OSMIN - suspect dilutional, no e/o active bleed - trend cbc - transfuse for Hb < 7 #Left leg pain #Hx Left leg amputation #Paraplegia - ctm - pain control -surgery consult appreciated #Sacral decubitus ulcer, POA - offloading per rn protocl q2h - surgery consult for wound, appreciate recs and mgt #Toxic metabolic encephalopathy - tx as above - delirium precautions FENPPX DVTPPX: SCD, HSQ GI PPX: na Fluids: mIVF x 2L Diet: regular Lines: PT/OT: deferred for now Code status: Full Dispo: [facility] ([facility]) Reason for Continued Hospitalization: sepsis due to UTI 37 minutes spent on this encounter. 20 spent on counseling and care coordination , d/w CM, RN, consultants Time of note may not reflect time patient was seen. Discharge Condition Upon Discharge: stable Discharge Vital Signs Last Vital Signs Date Time Temp Pulse Resp B/P (MAP) Pulse Ox O2 Delivery O2 Flow Rate FiO2 08/25/19 12:00 98.0 51 18 147/74 (98) 96 08/25/19 09:00 Room Air Discharge Disposition Patient was discharged to [facility] Kamaljit Sorensen MD Aug 25, 2019 15:12
--- NOTE | 2019-08-25 15:12 | NUR ---
CASE MANAGEMENT:REVIEW SI;GRAM NEG UTI. SEPSIS. SEAN. TOX MET ENCEPHALOPATHY. 98.0 51 20 168/81 96% ON RA IS;DOXYCYCLINE PO Q12 HR ERTAPENEM IV Q24 HR IVF NS @ 75 ML/HR HEPARIN SUBQ Q12 HR MED SURG STATUS DCP;PATIENT IS FROM [facility]
--- NOTE | 2019-08-25 15:48 | Surgery Progress Note ---
Surgery Progress Note Subjective Symptoms: improved, tolerating diet, voiding well, passing flatus Objective Last 24 Hour Vital Signs Date Time Temp Pulse Resp B/P (MAP) Pulse Ox O2 Delivery O2 Flow Rate FiO2 08/25/19 12:00 98.0 51 18 147/74 (98) 96 08/25/19 09:17 163/75 08/25/19 09:00 Room Air 08/25/19 08:50 51 163/75 (104) 08/25/19 08:00 97.3 59 18 168/81 (110) 98 08/25/19 04:00 97.4 51 20 136/72 (93) 98 08/25/19 00:00 99.0 55 20 143/75 (97) 95 08/24/19 21:00 Room Air 08/24/19 20:00 97.0 58 20 142/71 (94) 96 08/24/19 16:00 98.8 60 19 134/78 (96) 97 I&O Intake and Output 08/24/19 08/25/19 19:00 07:00 Intake Total 785 ml 1035 ml Output Total 1150 ml 1300 ml Balance -365 ml -265 ml IV Total 785 ml 675 ml Other 360 ml Output Urine Total 1150 ml 1300 ml Dressing: dry Wound: clean Cardiovascular: RSR Abdomen: non-tender, present bowel sounds Extremities: edema, no tenderness, no cyanosis, other Plan Problems: (1) Left leg pain Assessment & Plan: Patient presented admission complaining of left leg pain. On evaluation there is deformity left lower extremity plain films reviewed and obvious deformity noted as the femoral proximal is dislocated from the shaft. Patient is nonambulatory at baseline per report. He is somewhat cooperative examined with exam but a poor historian. Multiple skin concerns identified. Pt presented on admission with multiple Pressure Injuries, Bilat foot drop. Historical scar noted to L Hip Large Full Thickness Pressure Injury Buttocks with undermining and tunneling. Wound has irregular borders extends from Sacrum to L ischium and base of Scrotum,laterally from Outer R to Outer L gluteus.(L)18.9cm x (W)18.5cm x (D) 3.7cm, undermining clockwise 10-3 by 5.9cm @3o'clock,Tunneling clockwise @6o' clock by 2.7cm.Scattered Biofilm with [place] granulation at base of wound ,bone is palpable in tunneled and undermined areas. At distal base of wound, at scrotum is an area of slough-size of Quarter. Small amt non-odorous serous exudate.Periwound is pink with scattered brownish skin tone.( Full thickness Pressure injury R Ischium(L)9.5cm x (W)9.7cm x (D)4.2cm, Tunneling clockwise into perineum at 7o'clock by 5.3cm. Base of wound has scattered slough. Bone is palpable . Small amt seropurulent exudate. Mild odor which resolved post cleansing of wound.Erythema noted along edges. Additional area of slough noted periwound along borders clockwise @3-4o'clock. Non-Blanching erythema noted to Protruding bony prominence L Hip. Dry, loosening eschar lateral L tibia. (L)1.1cm x (W)0.4cm.[place] epithelial along borders. Stable dry, brown eschar noted to medial L tibia(L)4.3cm x (W)1cm. Stable dry eschar noted to Plantar L Heel. (L)4.5cm x (W)2cm. Periwound is boggy but blanchable.Historical scar alson noted periwound. Full thickness pressure injury Plantar R Heel (L)1.2cm x (W)2.5cm x (D)0.2cm. 80 % pink granulation,20% slough at base of wound. Edges are macerated. Small amt non-odorous serous exudate. Periwound is boggy but blanchable. Tx.Plan: Cleanse wound Buttocks with Saline. Loosely Pack wound including undermined areas with Hydrogel impregnated Kerlix.Apply Moisture Barrier Paste along borders. Cover with ABD Pads and secure with Tegaderm Daily and prn. Cleanse R Ischial Wound with Saline. Loosely pack with Hydrogel Impregnated Kerlix. Apply Moisture Barrier Periwound. Cover with ABD Pad and secure with Tegaderm Daily and prn. Apply Cavilon Skin Barrier to L Hip Bony Protrusion (Do Not Rub/ Massage area). Cover with Optifoam drsg. Change every 3 days and prn. Apply Betadine to Medial and lateral L Tibial wounds. Cover with Optifoam drsg every 3 days and prn. Apply Betadine to Plantar L Heel wound. Cover with Optifoam drsg. Change every 3 days and prn. Apply Betadine to Plantar R heel wound. Cover with Optifoam drsg every 3 days and prn. Reposition at least every 2hours or as tolerated. Place pillow between knees. Off-Load Heels with Pillow. APM/SUMI Mattress overlay. (2) Femur fracture Assessment & Plan: There is an old amputation defect across the mid femoral shaft. The mid to distal femur is unremarkable with normal articulation at the knee. The proximal femur including the femoral head is not visualized likely resected. There is deformity of the left hip/acetabulum likely posttraumatic. Adjacent heterotopic ossification noted. Surrounding soft tissue is normal. 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 can be done ioutpatient as this is chronic ostomy prolapse stable loop and functional (3) Urinary tract infection (4) Sacral decubitus ulcer Assessment & Plan: Patient with a prolapsed loop ostomy identified. Still functional viable reducible. outpt follow up for revision (5) Paraplegia Additional Comments okay to d/c outpt care plan as above Cornelius Salgado Aug 25, 2019 15:48
--- NOTE | 2019-08-25 16:07 | NUR ---
NURSE NOTES: Per Sarika from case management patient will not be discharged today due to placement and insurance issues. Charge nurse aware.
--- NOTE | 2019-08-25 19:10 | NUR ---
HAND-OFF: Report given to TANJA Wood. Patient stable.
[2019-08-25 20:48] LABS: ANION GAP 14 mmol/L (5-15); BLOOD UREA NITROGEN 16 mg/dL (7-18); CALCIUM 8.5 MG/DL (8.5-10.1); CARBON DIOXIDE 23 MMOL/L (21-32); CHLORIDE 101 MMOL/L (98-107); CREATININE 1.6 MG/DL (0.55-1.30); PHOSPHORUS 3.1 MG/DL (2.5-4.9); POTASSIUM 3.4 MMOL/L (3.5-5.1); SODIUM 137 MMOL/L (136-145)
[2019-08-26] VITALS: BP 148/82
[2019-08-26 04:00] VITALS: BP 127/70
--- NOTE | 2019-08-26 07:20 | NUR ---
HAND-OFF: Report given to TANJA Liu.
--- NOTE | 2019-08-26 07:25 | NUR ---
NURSE NOTES: RECEIVED REPORT FROM TANJA VAUGHAN. PATIENT IN BED, SLEEPING. AAOX3. BILATERAL SOFT WRIST RESTRAINT. IV PATENT AND INTACT. COLOSTOMY NOTED AND IN PLACE. NO COMPLAINT OF PAIN OR SHORTNESS OF BREATH. BED LOCKED AND PLACED IN LOWEST POSITION WITH BED ALARM ON. WILL CONTINUE TO MONITOR
[2019-08-26 08:00] VITALS: BP 142/70
[2019-08-26] MEDS: Doxycycline Monohydrate 100mg ORAL SCH ×2 (09:33→21:07)
[2019-08-26] MEDS: Heparin 5000 units/ml inj SUBQ SCH ×2 (09:34→20:55)
[2019-08-26] MEDS: Ertapenem 500mg ivpb (q24h) IV SCH ×2 (11:20)
[2019-08-26 11:55] VITALS: BP 144/72
--- NOTE | 2019-08-26 13:05 | Surgery Progress Note ---
Surgery Progress Note Subjective Symptoms: improved Objective Last 24 Hour Vital Signs Date Time Temp Pulse Resp B/P (MAP) Pulse Ox O2 Delivery O2 Flow Rate FiO2 08/26/19 11:55 98.1 59 19 144/72 (96) 97 08/26/19 09:00 Room Air 08/26/19 08:00 98.2 56 19 142/70 (94) 97 08/26/19 04:00 98.1 56 21 127/70 (89) 95 08/26/19 00:00 98.0 57 20 148/82 (104) 96 08/25/19 21:00 Room Air 08/25/19 20:00 98.6 53 20 152/73 (99) 95 08/25/19 16:00 98.4 54 18 124/78 (93) 97 I&O Intake and Output 08/25/19 08/26/19 19:00 07:00 Output Total 1000 ml Balance -1000 ml Output Urine Total 1000 ml # Voids 100 Cardiovascular: RSR Respiratory: clear Abdomen: soft, non-tender, present bowel sounds Extremities: no cyanosis Laboratory Tests Test 08/25/19 19:45 Sodium Level 137 MMOL/L (136-145) Potassium Level 3.4 MMOL/L (3.5-5.1) L Chloride Level 101 MMOL/L (98-107) Carbon Dioxide Level 23 MMOL/L (21-32) Anion Gap 14 mmol/L (5-15) Blood Urea Nitrogen 16 mg/dL (7-18) Creatinine 1.6 MG/DL (0.55-1.30) H Estimat Glomerular Filtration Rate 44.6 mL/min (>60) Glucose Level 83 MG/DL (74-106) Calcium Level 8.5 MG/DL (8.5-10.1) Phosphorus Level 3.1 MG/DL (2.5-4.9) Magnesium Level 1.5 MG/DL (1.8-2.4) L Plan Problems: (1) Left leg pain Assessment & Plan: Patient presented admission complaining of left leg pain. On evaluation there is deformity left lower extremity plain films reviewed and obvious deformity noted as the femoral proximal is dislocated from the shaft. Patient is nonambulatory at baseline per report. He is somewhat cooperative examined with exam but a poor historian. Multiple skin concerns identified. Pt presented on admission with multiple Pressure Injuries, Bilat foot drop. Historical scar noted to L Hip Large Full Thickness Pressure Injury Buttocks with undermining and tunneling. Wound has irregular borders extends from Sacrum to L ischium and base of Scrotum,laterally from Outer R to Outer L gluteus.(L)18.9cm x (W)18.5cm x (D) 3.7cm, undermining clockwise 10-3 by 5.9cm @3o'clock,Tunneling clockwise @6o' clock by 2.7cm.Scattered Biofilm with [place] granulation at base of wound ,bone is palpable in tunneled and undermined areas. At distal base of wound, at scrotum is an area of slough-size of Quarter. Small amt non-odorous serous exudate.Periwound is pink with scattered brownish skin tone.( Full thickness Pressure injury R Ischium(L)9.5cm x (W)9.7cm x (D)4.2cm, Tunneling clockwise into perineum at 7o'clock by 5.3cm. Base of wound has scattered slough. Bone is palpable . Small amt seropurulent exudate. Mild odor which resolved post cleansing of wound.Erythema noted along edges. Additional area of slough noted periwound along borders clockwise @3-4o'clock. Non-Blanching erythema noted to Protruding bony prominence L Hip. Dry, loosening eschar lateral L tibia. (L)1.1cm x (W)0.4cm.[place] epithelial along borders. Stable dry, brown eschar noted to medial L tibia(L)4.3cm x (W)1cm. Stable dry eschar noted to Plantar L Heel. (L)4.5cm x (W)2cm. Periwound is boggy but blanchable.Historical scar alson noted periwound. Full thickness pressure injury Plantar R Heel (L)1.2cm x (W)2.5cm x (D)0.2cm. 80 % pink granulation,20% slough at base of wound. Edges are macerated. Small amt non-odorous serous exudate. Periwound is boggy but blanchable. Tx.Plan: Cleanse wound Buttocks with Saline. Loosely Pack wound including undermined areas with Hydrogel impregnated Kerlix.Apply Moisture Barrier Paste along borders. Cover with ABD Pads and secure with Tegaderm Daily and prn. Cleanse R Ischial Wound with Saline. Loosely pack with Hydrogel Impregnated Kerlix. Apply Moisture Barrier Periwound. Cover with ABD Pad and secure with Tegaderm Daily and prn. Apply Cavilon Skin Barrier to L Hip Bony Protrusion (Do Not Rub/ Massage area). Cover with Optifoam drsg. Change every 3 days and prn. Apply Betadine to Medial and lateral L Tibial wounds. Cover with Optifoam drsg every 3 days and prn. Apply Betadine to Plantar L Heel wound. Cover with Optifoam drsg. Change every 3 days and prn. Apply Betadine to Plantar R heel wound. Cover with Optifoam drsg every 3 days and prn. Reposition at least every 2hours or as tolerated. Place pillow between knees. Off-Load Heels with Pillow. APM/SUMI Mattress overlay. (2) Femur fracture Assessment & Plan: There is an old amputation defect across the mid femoral shaft. The mid to distal femur is unremarkable with normal articulation at the knee. The proximal femur including the femoral head is not visualized likely resected. There is deformity of the left hip/acetabulum likely posttraumatic. Adjacent heterotopic ossification noted. Surrounding soft tissue is normal. 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 can be done ioutpatient as this is chronic ostomy prolapse stable loop and functional (3) Urinary tract infection (4) Sacral decubitus ulcer Assessment & Plan: Patient with a prolapsed loop ostomy identified. Still functional viable reducible. outpt follow up for revision (5) Paraplegia Cornelius Salgado Aug 26, 2019 13:05
--- NOTE | 2019-08-26 13:17 | Infectious Diseases Prog Note ---
Assessment/Plan Assessment/Plan ASSESSMENT AND PLAN: 1. 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 endocarditis, ? mrsa/ proteus sacral wound infection, sepsis, leukocytosis, fevers, mrsa colonization, ARF - ertapenem and doxycycline po for 2 days more - surveillance blood cultures - negative - wound care per surgery - monitor labs - TTE without vegetations - leukocytosis resolved 2. Paraplegia. 3. Chronic catheter. 4. Sacral wound. 5. Anemia. 6. No history of diabetes or hypertension. 7. Pain management per primary care team. 8. No known allergies. 9. Social history is negative. 10. Family history is contributory. 11. MAR was noted. 12. Case discussed with RN. Subjective Constitutional: Denies: fever HEENT: Denies: congestion Respiratory: Denies: shortness of breath Cardiovascular: Denies: chest pain Gastrointestinal/Abdominal: Denies: nausea, diarrhea Genitourinary: Reports: other - + donohue Neurologic: Denies: headache Psychiatric: Denies: depression Skin: Denies: rash Hematologic: Denies: bleeding Musculoskeletal: Denies: pain Allergies: Coded Allergies: No Known Allergies (Unverified , 08/15/19) Objective Vital Signs Last 24 Hour Vital Signs Date Time Temp Pulse Resp B/P (MAP) Pulse Ox O2 Delivery O2 Flow Rate FiO2 08/26/19 11:55 98.1 59 19 144/72 (96) 97 08/26/19 09:00 Room Air 08/26/19 08:00 98.2 56 19 142/70 (94) 97 08/26/19 04:00 98.1 56 21 127/70 (89) 95 08/26/19 00:00 98.0 57 20 148/82 (104) 96 08/25/19 21:00 Room Air 08/25/19 20:00 98.6 53 20 152/73 (99) 95 08/25/19 16:00 98.4 54 18 124/78 (93) 97 Height (Feet): 5 Height (Inches): 7.00 Weight (Pounds): 137 General Appearance: no acute distress HEENT: normocephalic, atraumatic, anicteric, mucous membranes moist Respiratory/Chest: crackles/rales, rhonchi - bilaterally Cardiovascular: normal rate, regular rhythm, no gallop/murmur, no JVD Abdomen: normal bowel sounds, soft, non tender, no organomegaly, non distended Genitourinary: other - + donohue - urine slt cloudy Extremities: no cyanosis Skin: no rash, other - wounds - covered 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 FINDINGS: A single one view chest is obtained. Vascularity is normal. The lung hess are clear bilaterally. Cardiac and mediastinal silhouette are within normal limits. CP angles are sharp. The bony thorax appear unremarkable. IMPRESSION: NO ACUTE CARDIOPULMONARY DISEASE. Microbiology Date/Time Source Procedure Growth Status 08/18/19 16:45 Blood Blood Culture - Final NO GROWTH AFTER 5 DAYS Complete 08/15/19 18:50 Nasopharynx Coronavirus COVID-19 PCR (GENE) - Final Complete 08/19/19 15:14 Urine,Clean Catch Urine Culture - Final NO GROWTH AFTER 48 HOURS Complete 08/16/19 18:20 Sacral Wound Gram Stain - Final Complete 08/16/19 18:20 Wound Culture - Final Staphylococcus Aureus - Mrsa Proteus Mirabilis Complete Laboratory Tests Test 08/25/19 19:45 Sodium Level 137 MMOL/L (136-145) Potassium Level 3.4 MMOL/L (3.5-5.1) L Chloride Level 101 MMOL/L (98-107) Carbon Dioxide Level 23 MMOL/L (21-32) Anion Gap 14 mmol/L (5-15) Blood Urea Nitrogen 16 mg/dL (7-18) Creatinine 1.6 MG/DL (0.55-1.30) H Estimat Glomerular Filtration Rate 44.6 mL/min (>60) Glucose Level 83 MG/DL (74-106) Calcium Level 8.5 MG/DL (8.5-10.1) Phosphorus Level 3.1 MG/DL (2.5-4.9) Magnesium Level 1.5 MG/DL (1.8-2.4) L wbc - 10.0 hgb - 10.1 Current Medications Medications (Trade) Dose Ordered Sig/Mya Route PRN Reason Start Time Stop Time Status Last Admin Dose Admin Acetaminophen (Tylenol) 650 mg Q6H PRN ORAL Temp >100.5 08/16/19 00:45 09/15/19 00:44 08/21/19 21:47 Doxycycline Monohydrate (Doxycycline Monohydrate) 100 mg EVERY 12 HOURS ORAL 08/23/19 21:00 08/30/19 20:59 08/26/19 09:33 Ertapenem 0.5 gm/ Sodium Chloride 55 ml @ 110 mls/hr Q24H IV 08/21/19 10:00 08/27/19 09:59 08/26/19 11:20 Heparin Sodium (Porcine) (Heparin 5000 units/ml) 5,000 units EVERY 12 HOURS SUBQ 08/16/19 09:00 09/30/19 08:59 08/26/19 09:34 Sharif Painting MD Aug 26, 2019 13:17
[2019-08-26 16:00] VITALS: BP 134/76
--- NOTE | 2019-08-26 17:02 | Internal Med Progress Note ---
Subjective Date of Service: Aug 26, 2019 Physician Name Beatrice Ferrera Attending Physician Thalia Marx MD Current Medications Medications (Trade) Dose Ordered Sig/Mya Route PRN Reason Start Time Stop Time Status Last Admin Dose Admin Acetaminophen (Tylenol) 650 mg Q6H PRN ORAL Temp >100.5 08/16/19 00:45 09/15/19 00:44 08/21/19 21:47 Doxycycline Monohydrate (Doxycycline Monohydrate) 100 mg EVERY 12 HOURS ORAL 08/23/19 21:00 08/30/19 20:59 08/26/19 09:33 Ertapenem 1 gm/ Sodium Chloride 55 ml @ 110 mls/hr Q24H IV 08/27/19 10:00 09/02/19 09:59 Heparin Sodium (Porcine) (Heparin 5000 units/ml) 5,000 units EVERY 12 HOURS SUBQ 08/16/19 09:00 09/30/19 08:59 08/26/19 09:34 Allergies: Coded Allergies: No Known Allergies (Unverified , 08/15/19) Subjective Discharge was held yesterday secondary to bed availability issues and also at nephro request per nursing. When patient was visited at bedside, no acute distress. Vitals stable, labs improving. 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 Laboratory Tests Test 08/25/19 19:45 Sodium Level 137 MMOL/L (136-145) Potassium Level 3.4 MMOL/L (3.5-5.1) L Chloride Level 101 MMOL/L (98-107) Carbon Dioxide Level 23 MMOL/L (21-32) Anion Gap 14 mmol/L (5-15) Blood Urea Nitrogen 16 mg/dL (7-18) Creatinine 1.6 MG/DL (0.55-1.30) H Estimat Glomerular Filtration Rate 44.6 mL/min (>60) Glucose Level 83 MG/DL (74-106) Calcium Level 8.5 MG/DL (8.5-10.1) Phosphorus Level 3.1 MG/DL (2.5-4.9) Magnesium Level 1.5 MG/DL (1.8-2.4) L Intake and Output 08/25/19 08/26/19 19:00 07:00 Output Total 1000 ml Balance -1000 ml Output Urine Total 1000 ml # Voids 100 Assessment/Plan Assessment/Plan Assessment #Sepsis 2/2 UTI w/ gram negative bacilli #Acute Renal Failure on CKD #Anemia of Chronic Dx #Paraplegia/ Hx of LLE amputation #Decubitus Ulcers #Dementia Plan Appreciate consultants. Discharge Planning. Continue Doxycylcine and Ertapenem per ID and Cx. DVT ppx. Diet as tolerated. D/C to [facility] Beatrice Ferrera D.O. Aug 26, 2019 17:02
--- NOTE | 2019-08-26 19:25 | NUR ---
NURSE NOTES: Received report from Noe RN, pt. in bed awake, alert and verbally responsive, with elvira.soft wrist rerstraints on, denies any pain at this time; with call light within reach.
--- NOTE | 2019-08-26 19:27 | NUR ---
HAND-OFF: Report given to MONICA CHOUDHARY RN.
[2019-08-26 20:00] VITALS: BP 130/73
--- NOTE | 2019-08-26 20:22 | Nephrology Progress Note ---
Assessment/Plan Plan #Maxwell - likely due to vancomycin toxicity #sepsis due to UTI #Hyponatremia #hypomagnesemia #history for femur amputation #Left leg pain #Hx Left leg amputation #Paraplegia #Sacral decub ulcer #anemia - Cr downtrending - check renal US-> IMPRESSION: Mildly echogenic right kidney. This is nonspecific but may suggest renal parenchymal disease. No hydronephrosis. - placed donohue - Dc ivf - replete lytes - DC midodrine to 5mg TID - DC VANCO - antibiotics per D - follow urine cx - monitor mag, phos, BMP daily - surgery eval - pain control - monitor WBC - monitor UOP - avoid nephrotoxins Time spent 70 minutes, greater than 50% on care coordination and counseling Subjective Subjective Cr downtrending Dced vanco check renal US-> IMPRESSION: Mildly echogenic right kidney. This is nonspecific but may suggest renal parenchymal disease. No hydronephrosis. Objective Objective Last 24 Hour Vital Signs Date Time Temp Pulse Resp B/P (MAP) Pulse Ox O2 Delivery O2 Flow Rate FiO2 08/26/19 16:00 98.1 59 18 134/76 (95) 96 08/26/19 11:55 98.1 59 19 144/72 (96) 97 08/26/19 09:00 Room Air 08/26/19 08:00 98.2 56 19 142/70 (94) 97 08/26/19 04:00 98.1 56 21 127/70 (89) 95 08/26/19 00:00 98.0 57 20 148/82 (104) 96 08/25/19 21:00 Room Air Intake and Output 08/25/19 08/26/19 19:00 07:00 Output Total 1000 ml Balance -1000 ml Output Urine Total 1000 ml # Voids 100 Height (Feet): 5 Height (Inches): 7.00 Weight (Pounds): 137 Sienna Georges M.D. Aug 26, 2019 20:22
--- NOTE | 2019-08-26 22:00 | NUR ---
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 Ojeda regarding elvira. wrist restraints renewal and MD agreed, carried out.
[2019-08-27] VITALS: BP 150/75
[2019-08-27 04:00] VITALS: BP 144/77
--- NOTE | 2019-08-27 05:14 | NUR ---
NURSE NOTES: Wound treatment for St.IV sacral decub done, still noted draining. Dressing changed.
--- NOTE | 2019-08-27 07:23 | NUR ---
NURSE NOTES: Report given to Panfilo AGRAWAL.
--- NOTE | 2019-08-27 07:30 | NUR ---
NURSE NOTES: Received report from TANJA Gonzalez and Lupillo RN. Received pt lying in hospital bed in position. Pt is AAO x 1-2, bedbound, unable to make needs known. Pt is restless in bed with B soft wrist restraints in place with no s/s of skin breakdown, pulses palpable, and adequate circulation noted to distal extremities. Pt is on RA with no s/s of distress noted at this time. LBM on 08/27/2019 via colostomy. Stoma prolapse present, stable per surgery MD. Marcos catheter [address] secured and draining urine well. pIV on R FA at 22 g TKO. Wounds to sacrum dressing changed this AM 08/27/2019 and all other wound dressing changes done yesterday on R trochanter, B tibia, and B heels on 08/26/2019. Pt is planned for DC to SNF to [facility]. Will continue POC.
[2019-08-27 07:55] LABS: EOSINOPHILS % (AUTO) 1.9 % (0.0-3.0); HEMATOCRIT 30.9 % (42.0-52.0); HEMOGLOBIN 9.3 G/DL (14.2-18.0); LYMPHOCYTES % (AUTO) 16.5 % (20.0-45.0); MEAN CORPUSCULAR VOLUME 83 FL (80-99); NEUTROPHILS % (AUTO) 74.6 % (45.0-75.0); PLATELET COUNT 379 K/UL (150-450); RED BLOOD COUNT 3.71 M/UL (4.70-6.10); RED CELL DISTRIBUTION WIDTH 18.8 % (11.6-14.8)
[2019-08-27 07:56] LABS: ALANINE AMINOTRANSFERASE 10 U/L (12-78); ALBUMIN 2.2 G/DL (3.4-5.0); ALBUMIN/GLOBULIN RATIO 0.5 (1.0-2.7); ALKALINE PHOSPHATASE 118 U/L (46-116); ANION GAP 10 mmol/L (5-15); ASPARTATE AMINO TRANSFERASE 13 U/L (15-37); BILIRUBIN,TOTAL 0.4 MG/DL (0.2-1.0); BLOOD UREA NITROGEN 14 mg/dL (7-18); CALCIUM 8.3 MG/DL (8.5-10.1); CARBON DIOXIDE 27 MMOL/L (21-32); CHLORIDE 99 MMOL/L (98-107); CREATININE 1.5 MG/DL (0.55-1.30); SODIUM 136 MMOL/L (136-145)
[2019-08-27 08:00] VITALS: BP 135/75
--- NOTE | 2019-08-27 08:14 | Surgery Progress Note ---
Surgery Progress Note Subjective Additional Comments afebrile, HD stable, wbc resolved comfortable tolerating diet ostomy prolapse and reduced at bedside. discussed with RN Objective Last 24 Hour Vital Signs Date Time Temp Pulse Resp B/P (MAP) Pulse Ox O2 Delivery O2 Flow Rate FiO2 08/27/19 06:09 97.5 08/27/19 04:00 98.6 57 20 144/77 (99) 97 08/27/19 00:00 98.9 50 18 150/75 (100) 96 08/26/19 21:00 Room Air 08/26/19 20:00 98.4 52 18 130/73 (92) 96 08/26/19 16:00 98.1 59 18 134/76 (95) 96 08/26/19 11:55 98.1 59 19 144/72 (96) 97 08/26/19 09:00 Room Air I&O Intake and Output 08/26/19 08/27/19 19:00 07:00 Intake Total 655 ml 200 ml Output Total 800 ml 450 ml Balance -145 ml -250 ml Intake Oral 600 ml 200 ml IV Total 55 ml Output Urine Total 800 ml 400 ml Stool Total 50 ml Dressing: dry Wound: clean Cardiovascular: RSR Respiratory: clear Abdomen: soft, non-tender, present bowel sounds, other, non-distended Extremities: no edema, no tenderness, no cyanosis Laboratory Tests Test 08/27/19 06:40 White Blood Count 8.0 K/UL (4.8-10.8) Red Blood Count 3.71 M/UL (4.70-6.10) L Hemoglobin 9.3 G/DL (14.2-18.0) L Hematocrit 30.9 % (42.0-52.0) L Mean Corpuscular Volume 83 FL (80-99) Mean Corpuscular Hemoglobin 25.2 PG (27.0-31.0) L Mean Corpuscular Hemoglobin Concent 30.3 G/DL (32.0-36.0) L Red Cell Distribution Width 18.8 % (11.6-14.8) H Platelet Count 379 K/UL (150-450) Mean Platelet Volume 4.7 FL (6.5-10.1) L Neutrophils (%) (Auto) 74.6 % (45.0-75.0) Lymphocytes (%) (Auto) 16.5 % (20.0-45.0) L Monocytes (%) (Auto) 6.0 % (1.0-10.0) Eosinophils (%) (Auto) 1.9 % (0.0-3.0) Basophils (%) (Auto) 1.0 % (0.0-2.0) Sodium Level 136 MMOL/L (136-145) Potassium Level 3.0 MMOL/L (3.5-5.1) L Chloride Level 99 MMOL/L (98-107) Carbon Dioxide Level 27 MMOL/L (21-32) Anion Gap 10 mmol/L (5-15) Blood Urea Nitrogen 14 mg/dL (7-18) Creatinine 1.5 MG/DL (0.55-1.30) H Estimat Glomerular Filtration Rate 48.1 mL/min (>60) Glucose Level 108 MG/DL (74-106) H Calcium Level 8.3 MG/DL (8.5-10.1) L Total Bilirubin 0.4 MG/DL (0.2-1.0) Aspartate Amino Transf (AST/SGOT) 13 U/L (15-37) L Alanine Aminotransferase (ALT/SGPT) 10 U/L (12-78) L Alkaline Phosphatase 118 U/L (46-116) H Total Protein 6.8 G/DL (6.4-8.2) Albumin 2.2 G/DL (3.4-5.0) L Globulin 4.6 g/dL Albumin/Globulin Ratio 0.5 (1.0-2.7) L Plan Problems: (1) Left leg pain Assessment & Plan: Patient presented admission complaining of left leg pain. On evaluation there is deformity left lower extremity plain films reviewed and obvious deformity noted as the femoral proximal is dislocated from the shaft. Patient is nonambulatory at baseline per report. He is somewhat cooperative examined with exam but a poor historian. Multiple skin concerns identified. Pt presented on admission with multiple Pressure Injuries, Bilat foot drop. Historical scar noted to L Hip Large Full Thickness Pressure Injury Buttocks with undermining and tunneling. Wound has irregular borders extends from Sacrum to L ischium and base of Scrotum,laterally from Outer R to Outer L gluteus.(L)18.9cm x (W)18.5cm x (D) 3.7cm, undermining clockwise 10-3 by 5.9cm @3o'clock,Tunneling clockwise @6o' clock by 2.7cm.Scattered Biofilm with [place] granulation at base of wound ,bone is palpable in tunneled and undermined areas. At distal base of wound, at scrotum is an area of slough-size of Quarter. Small amt non-odorous serous exudate.Periwound is pink with scattered brownish skin tone.( Full thickness Pressure injury R Ischium(L)9.5cm x (W)9.7cm x (D)4.2cm, Tunneling clockwise into perineum at 7o'clock by 5.3cm. Base of wound has scattered slough. Bone is palpable . Small amt seropurulent exudate. Mild odor which resolved post cleansing of wound.Erythema noted along edges. Additional area of slough noted periwound along borders clockwise @3-4o'clock. Non-Blanching erythema noted to Protruding bony prominence L Hip. Dry, loosening eschar lateral L tibia. (L)1.1cm x (W)0.4cm.[place] epithelial along borders. Stable dry, brown eschar noted to medial L tibia(L)4.3cm x (W)1cm. Stable dry eschar noted to Plantar L Heel. (L)4.5cm x (W)2cm. Periwound is boggy but blanchable.Historical scar alson noted periwound. Full thickness pressure injury Plantar R Heel (L)1.2cm x (W)2.5cm x (D)0.2cm. 80 % pink granulation,20% slough at base of wound. Edges are macerated. Small amt non-odorous serous exudate. Periwound is boggy but blanchable. Tx.Plan: Cleanse wound Buttocks with Saline. Loosely Pack wound including undermined areas with Hydrogel impregnated Kerlix.Apply Moisture Barrier Paste along borders. Cover with ABD Pads and secure with Tegaderm Daily and prn. Cleanse R Ischial Wound with Saline. Loosely pack with Hydrogel Impregnated Kerlix. Apply Moisture Barrier Periwound. Cover with ABD Pad and secure with Tegaderm Daily and prn. Apply Cavilon Skin Barrier to L Hip Bony Protrusion (Do Not Rub/ Massage area). Cover with Optifoam drsg. Change every 3 days and prn. Apply Betadine to Medial and lateral L Tibial wounds. Cover with Optifoam drsg every 3 days and prn. Apply Betadine to Plantar L Heel wound. Cover with Optifoam drsg. Change every 3 days and prn. Apply Betadine to Plantar R heel wound. Cover with Optifoam drsg every 3 days and prn. Reposition at least every 2hours or as tolerated. Place pillow between knees. Off-Load Heels with Pillow. APM/SUMI Mattress overlay. (2) Femur fracture Assessment & Plan: There is an old amputation defect across the mid femoral shaft. The mid to distal femur is unremarkable with normal articulation at the knee. The proximal femur including the femoral head is not visualized likely resected. There is deformity of the left hip/acetabulum likely posttraumatic. Adjacent heterotopic ossification noted. Surrounding soft tissue is normal. 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 can be done ioutpatient as this is chronic ostomy prolapse stable loop and functional (3) Urinary tract infection (4) Sacral decubitus ulcer Assessment & Plan: Patient with a prolapsed loop ostomy identified. Still functional viable reducible. outpt follow up for revision (5) Paraplegia (6) Ileostomy prolapse Assessment & Plan: loop ileostomy prolapse noted. distal limb prolapsed proximal mild with gas and stool output. reducible easily at bedside but prolapse easily no n/v/f/c functional recommend elective repair Cornelius Salgado Aug 27, 2019 08:14
[2019-08-27] MEDS: Heparin 5000 units/ml inj SUBQ SCH ×2 (10:00→20:48)
[2019-08-27] MEDS: Doxycycline Monohydrate 100mg ORAL SCH ×2 (10:01→20:47)
--- NOTE | 2019-08-27 10:16 | Nephrology Progress Note ---
Assessment/Plan Plan #Maxwell - likely due to vancomycin toxicity #sepsis due to UTI #Hyponatremia #hypomagnesemia #history for femur amputation #Left leg pain #Hx Left leg amputation #Paraplegia #Sacral decub ulcer #anemia - Cr downtrending - check renal US-> IMPRESSION: Mildly echogenic right kidney. This is nonspecific but may suggest renal parenchymal disease. No hydronephrosis. - placed donohue - Dc ivf - replete lytes - DC midodrine to 5mg TID - DC VANCO - antibiotics per D - follow urine cx - monitor mag, phos, BMP daily - surgery eval - pain control - monitor WBC - monitor UOP - avoid nephrotoxins Time spent 70 minutes, greater than 50% on care coordination and counseling Subjective ROS Limited/Unobtainable: Yes Subjective Cr downtrending Dced vanco check renal US-> IMPRESSION: Mildly echogenic right kidney. This is nonspecific but may suggest renal parenchymal disease. No hydronephrosis. Objective Objective Last 24 Hour Vital Signs Date Time Temp Pulse Resp B/P (MAP) Pulse Ox O2 Delivery O2 Flow Rate FiO2 08/27/19 08:00 98.6 57 18 135/75 (95) 94 08/27/19 06:09 97.5 08/27/19 04:00 98.6 57 20 144/77 (99) 97 08/27/19 00:00 98.9 50 18 150/75 (100) 96 08/26/19 21:00 Room Air 08/26/19 20:00 98.4 52 18 130/73 (92) 96 08/26/19 16:00 98.1 59 18 134/76 (95) 96 08/26/19 11:55 98.1 59 19 144/72 (96) 97 Intake and Output 08/26/19 08/27/19 19:00 07:00 Intake Total 655 ml 200 ml Output Total 800 ml 450 ml Balance -145 ml -250 ml Intake Oral 600 ml 200 ml IV Total 55 ml Output Urine Total 800 ml 400 ml Stool Total 50 ml Laboratory Tests 08/27/19 06:40: White Blood Count 8.0, Red Blood Count 3.71L, Hemoglobin 9.3L, Hematocrit 30.9L , Mean Corpuscular Volume 83, Mean Corpuscular Hemoglobin 25.2L, Mean Corpuscular Hemoglobin Concent 30.3L, Red Cell Distribution Width 18.8H, Platelet Count 379, Mean Platelet Volume 4.7L, Neutrophils (%) (Auto) 74.6, Lymphocytes (%) (Auto) 16.5L, Monocytes (%) (Auto) 6.0, Eosinophils (%) (Auto) 1.9, Basophils (%) (Auto) 1.0, Sodium Level 136, Potassium Level 3.0L, Chloride Level 99, Carbon Dioxide Level 27, Anion Gap 10, Blood Urea Nitrogen 14, Creatinine 1.5H, Estimat Glomerular Filtration Rate 48.1, Glucose Level 108H, Calcium Level 8.3L, Total Bilirubin 0.4, Aspartate Amino Transf (AST/SGOT) 13L, Alanine Aminotransferase (ALT/SGPT) 10L, Alkaline Phosphatase 118H, Total Protein 6.8, Albumin 2.2L, Globulin 4.6, Albumin/Globulin Ratio 0.5L Height (Feet): 5 Height (Inches): 7.00 Weight (Pounds): 137 Sienna Georges M.D. Aug 27, 2019 10:16
[2019-08-27] MEDS: Ertapenem 1 GM in NS 55 ML IV SCH (10:53)
[2019-08-27 12:00] VITALS: BP 162/81
--- NOTE | 2019-08-27 13:35 | Internal Med Progress Note ---
Subjective Date of Service: Aug 27, 2019 Physician Name Beatrice Ferrera Attending Physician Thalia Marx MD Current Medications Medications (Trade) Dose Ordered Sig/Mya Route PRN Reason Start Time Stop Time Status Last Admin Dose Admin Acetaminophen (Tylenol) 650 mg Q6H PRN ORAL Temp >100.5 08/16/19 00:45 09/15/19 00:44 08/27/19 05:39 Doxycycline Monohydrate (Doxycycline Monohydrate) 100 mg EVERY 12 HOURS ORAL 08/23/19 21:00 08/30/19 20:59 08/27/19 10:01 Ertapenem 1 gm/ Sodium Chloride 55 ml @ 110 mls/hr Q24H IV 08/27/19 10:00 09/02/19 09:59 08/27/19 10:53 Heparin Sodium (Porcine) (Heparin 5000 units/ml) 5,000 units EVERY 12 HOURS SUBQ 08/16/19 09:00 09/30/19 08:59 08/27/19 10:00 Allergies: Coded Allergies: No Known Allergies (Unverified , 08/15/19) Subjective Patient visited at bedside; no acute distress. He remains on Ertapenem and Doxy ; Will obtain AM labs. Spoke to nursing about SNF bed; no case consultant in today. Objective Last Vital Signs Date Time Temp Pulse Resp B/P (MAP) Pulse Ox O2 Delivery O2 Flow Rate FiO2 08/27/19 09:00 Room Air 08/27/19 08:00 98.6 57 18 135/75 (95) 94 Laboratory Tests Test 08/27/19 06:40 White Blood Count 8.0 K/UL (4.8-10.8) Red Blood Count 3.71 M/UL (4.70-6.10) L Hemoglobin 9.3 G/DL (14.2-18.0) L Hematocrit 30.9 % (42.0-52.0) L Mean Corpuscular Volume 83 FL (80-99) Mean Corpuscular Hemoglobin 25.2 PG (27.0-31.0) L Mean Corpuscular Hemoglobin Concent 30.3 G/DL (32.0-36.0) L Red Cell Distribution Width 18.8 % (11.6-14.8) H Platelet Count 379 K/UL (150-450) Mean Platelet Volume 4.7 FL (6.5-10.1) L Neutrophils (%) (Auto) 74.6 % (45.0-75.0) Lymphocytes (%) (Auto) 16.5 % (20.0-45.0) L Monocytes (%) (Auto) 6.0 % (1.0-10.0) Eosinophils (%) (Auto) 1.9 % (0.0-3.0) Basophils (%) (Auto) 1.0 % (0.0-2.0) Sodium Level 136 MMOL/L (136-145) Potassium Level 3.0 MMOL/L (3.5-5.1) L Chloride Level 99 MMOL/L (98-107) Carbon Dioxide Level 27 MMOL/L (21-32) Anion Gap 10 mmol/L (5-15) Blood Urea Nitrogen 14 mg/dL (7-18) Creatinine 1.5 MG/DL (0.55-1.30) H Estimat Glomerular Filtration Rate 48.1 mL/min (>60) Glucose Level 108 MG/DL (74-106) H Calcium Level 8.3 MG/DL (8.5-10.1) L Total Bilirubin 0.4 MG/DL (0.2-1.0) Aspartate Amino Transf (AST/SGOT) 13 U/L (15-37) L Alanine Aminotransferase (ALT/SGPT) 10 U/L (12-78) L Alkaline Phosphatase 118 U/L (46-116) H Total Protein 6.8 G/DL (6.4-8.2) Albumin 2.2 G/DL (3.4-5.0) L Globulin 4.6 g/dL Albumin/Globulin Ratio 0.5 (1.0-2.7) L Intake and Output 08/26/19 08/27/19 19:00 07:00 Intake Total 655 ml 200 ml Output Total 800 ml 450 ml Balance -145 ml -250 ml Intake Oral 600 ml 200 ml IV Total 55 ml Output Urine Total 800 ml 400 ml Stool Total 50 ml Objective General Appearance: no apparent distress, other - in restraints EENT: PERRL/EOMI Cardiovascular: normal rate, regular rhythm Respiratory/Chest: lungs clear, normal breath sounds Abdomen: soft, Lamar bag Genitourinary/Rectal: other Extremities: normal range of motion 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 Discharge Planning. Continue Doxycylcine and Ertapenem per ID and Cx. DVT ppx. Diet as tolerated. D/C to SNF 08/26: Await SNF bed placement, AM labs Beatrice Ferrera D.O. Aug 27, 2019 13:35
[2019-08-27 16:00] VITALS: BP 142/83
--- NOTE | 2019-08-27 19:20 | NUR ---
NURSE NOTES: Report received from Panfilo AGRAWAL, pt. in bed, awake alert and oriented, in pleasant mood. Denies any pain at this time. Call light was within reach. With colostomy in placed, intact and draining; with donohue attached to drainage bag, with light curt colored urine, small in amount, no sediments noted. Restraints on elvira. wrist in placed, with skin intact. Bed in lowest position and locked. On continued contact isolation, observed.
--- NOTE | 2019-08-27 19:20 | NUR ---
HAND-OFF: Report given to TANJA Gonzalez and TANJA Wesley. POC endorsed.
[2019-08-27 20:00] VITALS: BP 152/76
[2019-08-28] VITALS: BP 152/84
[2019-08-28 04:00] VITALS: BP 146/81
--- NOTE | 2019-08-28 06:56 | NUR ---
NURSE NOTES: Wound treatment done on sacral, kept clean and dry.
--- NOTE | 2019-08-28 07:33 | NUR ---
HAND-OFF: Report given to Adia AGRAWAL.
--- NOTE | 2019-08-28 07:43 | NUR ---
NURSE NOTES: Report received from Lupillo RN and TANJA Gonzalez. Patient awake in bed, responsive to verbal and tactile stimuli, no s/sx of discomfort noted, no SOB, bed in lowest position with breaks engaged and alarm on, IV line on RFA intact and patent, on contact isolation, will continue to monitor and proceed with plan of care, call light within reach.
[2019-08-28 08:00] VITALS: BP 150/78
[2019-08-28] MEDS: Doxycycline Monohydrate 100mg ORAL SCH (08:37)
[2019-08-28] MEDS: Heparin 5000 units/ml inj SUBQ SCH ×2 (08:38→21:04)
--- NOTE | 2019-08-28 09:55 | NUR ---
[facility] NOTE CALL MADE TO HN IN RE TO [facility] FOR SNF PLACEMENT. S/W BOONE WHO INFORMED THIS CM THAT PATIENTS INSURANCE TERMINATED ON 08/13/2019.
[2019-08-28] MEDS: Ertapenem 1 GM in NS 55 ML IV SCH (10:06)
--- NOTE | 2019-08-28 10:28 | Nephrology Progress Note ---
Assessment/Plan Plan #Maxwell - likely due to vancomycin toxicity #sepsis due to UTI #Hyponatremia #hypomagnesemia #history for femur amputation #Left leg pain #Hx Left leg amputation #Paraplegia #Sacral decub ulcer #anemia - Cr downtrending - check renal US-> IMPRESSION: Mildly echogenic right kidney. This is nonspecific but may suggest renal parenchymal disease. No hydronephrosis. - placed donohue - Dc ivf - replete lytes - DC midodrine to 5mg TID - DC VANCO - antibiotics per D - follow urine cx - monitor mag, phos, BMP daily - surgery eval - pain control - monitor WBC - monitor UOP - avoid nephrotoxins Time spent 70 minutes, greater than 50% on care coordination and counseling Subjective ROS Limited/Unobtainable: Yes Subjective Cr downtrending Dced vanco check renal US-> IMPRESSION: Mildly echogenic right kidney. This is nonspecific but may suggest renal parenchymal disease. No hydronephrosis. Objective Objective Last 24 Hour Vital Signs Date Time Temp Pulse Resp B/P (MAP) Pulse Ox O2 Delivery O2 Flow Rate FiO2 08/28/19 08:00 98.8 60 19 150/78 (102) 96 08/28/19 04:00 97.7 63 18 146/81 (102) 08/28/19 00:00 96.8 63 20 152/84 (106) 98 08/27/19 21:00 Room Air 08/27/19 20:00 96.9 56 20 152/76 (101) 96 08/27/19 16:52 98.2 08/27/19 16:00 101.1 72 17 142/83 (102) 97 08/27/19 12:00 97.7 52 18 162/81 (108) 97 Intake and Output 08/27/19 08/28/19 19:00 07:00 Intake Total 295 ml 400 ml Output Total 650 ml 1050 ml Balance -355 ml -650 ml Intake Oral 240 ml 400 ml IV Total 55 ml Output Urine Total 650 ml 1000 ml Stool Total 50 ml Height (Feet): 5 Height (Inches): 7.00 Weight (Pounds): 137 Sienna Georges M.D. Aug 28, 2019 10:28
[2019-08-28 10:59] LABS: BASOPHILS % (AUTO) 1.1 % (0.0-2.0); EOSINOPHILS % (AUTO) 0.4 % (0.0-3.0); HEMATOCRIT 32.5 % (42.0-52.0); HEMOGLOBIN 9.8 G/DL (14.2-18.0); LYMPHOCYTES % (AUTO) 19.4 % (20.0-45.0); MEAN CORPUSCULAR VOLUME 83 FL (80-99); MONOCYTES % (AUTO) 8.6 % (1.0-10.0); NEUTROPHILS % (AUTO) 70.5 % (45.0-75.0); PLATELET COUNT 364 K/UL (150-450); RED BLOOD COUNT 3.93 M/UL (4.70-6.10); RED CELL DISTRIBUTION WIDTH 18.6 % (11.6-14.8); WHITE BLOOD COUNT 8.5 K/UL (4.8-10.8)
[2019-08-28 11:25] LABS: ALANINE AMINOTRANSFERASE 7 U/L (12-78); ALBUMIN 2.5 G/DL (3.4-5.0); ALBUMIN/GLOBULIN RATIO 0.5 (1.0-2.7); ALKALINE PHOSPHATASE 146 U/L (46-116); ANION GAP 9 mmol/L (5-15); ASPARTATE AMINO TRANSFERASE 15 U/L (15-37); BILIRUBIN,TOTAL 0.6 MG/DL (0.2-1.0); BLOOD UREA NITROGEN 14 mg/dL (7-18); CALCIUM 8.7 MG/DL (8.5-10.1); CARBON DIOXIDE 30 MMOL/L (21-32); CHLORIDE 98 MMOL/L (98-107); CREATININE 1.3 MG/DL (0.55-1.30); PHOSPHORUS 2.9 MG/DL (2.5-4.9); POTASSIUM 3.2 MMOL/L (3.5-5.1); SODIUM 137 MMOL/L (136-145)
[2019-08-28 12:00] VITALS: BP 152/83
--- NOTE | 2019-08-28 12:23 | CDS Physician Query ---
Clarification is required for compliance, coding accuracy, and to reflect severity of illness for this patient Dear Dr. Beatrice Ferrera Date: 08/22/2019 [place]/CDS Name: Anel Bowman Clinical Documentation states: HNP: 59-year-old male with multiple medical problems admitted with sepsis due to urinary tract infection and AMS. Nephro progress note 08/21: Maxwell - likely due to vancomycin toxicity...DC VANCO Creatinine: 08/16 0.6, 08/17 1.8, 08/18 3.5 Please Clarify the type of renal failure below: Etiology [] Acute Renal Failure w/ Tubular Necrosis [] Acute Renal Failure w/ Cortical Necrosis [] Acute Renal Failure w/ Medullary Necrosis [x] Acute Renal Failure (unspecified) [] Other: Present on Admission: [x] Yes [] No [] Clinically Undetermined Physician signature Date Please also document in your Progress Notes and/or Discharge Summary and indicate if the condition was present on admission. LUKASD
--- NOTE | 2019-08-28 12:24 | NUR ---
TABLE FILLER NOTE S/W TRISTA IN ADMITTED. INFORMED OF INFO PROVIDED TO THIS CM BY HN IN RE TO PATIENTS MEDI-CINDY BEING TERMED OAS OF 08/13/19 PER TRISTA, SHE WILL RE-VERIFY ELIGIBILITY AND FOLLOW UP WITH CM
--- NOTE | 2019-08-28 13:10 | Discharge Summary ---
Discharge Summary Hospital Course Date of Admission Aug 15, 2019 at 17:40 Date of Discharge Admitting Diagnosis Left Proximal Femur Fracture JULIAN Castellanos is a 59 year old male who was admitted on Aug 15, 2019 at 17: 40 for Left Proximal Femur Fracture 59-year-old male from [facility] sent to the emergency department for left knee pain. Upon arrival to the ER patient was found to be febrile above 101 and Lab are consistent with UTI. X-ray of the left leg revealed an old femoral amputation versus traumatic fracture without any acute changes. Clinically a leg appeared chronically to formed without evidence of infection. Patient was started and perky on antibiotics and will be admitted for further management. Hospital Course Assessment #Sepsis 2/2 UTI w/ gram negative bacilli #Acute Renal Failure on CKD #Anemia of Chronic Dx #Paraplegia/ Hx of LLE amputation #Decubitus Ulcers #Dementia Plan Appreciate consultants. Discharge Planning. Continue Doxycylcine and Ertapenem per ID and Cx. DVT ppx. Diet as tolerated. D/C to SNF 08/26: Await SNF bed placement, AM labs 08/27: Complete AB course as instructed and D/C to SNF Beatrice Ferrera D.O. Aug 27, 2019 13:35 Addendum: Beatrice Ferrera D.O. on 08/27/19 @ 13:37 Note, sepsis also was from Bacteremia as noted in Micro Discharge Discharge Vital Signs Last Vital Signs Date Time Temp Pulse Resp B/P (MAP) Pulse Ox O2 Delivery O2 Flow Rate FiO2 08/28/19 12:00 98.4 67 16 152/83 (106) 96 08/28/19 09:00 Room Air Discharge Disposition Patient was discharged to Beatrice Ferrera D.O. Aug 28, 2019 13:10
--- NOTE | 2019-08-28 13:40 | Surgery Progress Note ---
Surgery Progress Note Subjective Symptoms: improved, tolerating diet, passing flatus, BM Objective Last 24 Hour Vital Signs Date Time Temp Pulse Resp B/P (MAP) Pulse Ox O2 Delivery O2 Flow Rate FiO2 08/28/19 12:00 98.4 67 16 152/83 (106) 96 08/28/19 09:00 Room Air 08/28/19 08:00 98.8 60 19 150/78 (102) 96 08/28/19 04:00 97.7 63 18 146/81 (102) 08/28/19 00:00 96.8 63 20 152/84 (106) 98 08/27/19 21:00 Room Air 08/27/19 20:00 96.9 56 20 152/76 (101) 96 08/27/19 16:52 98.2 08/27/19 16:00 101.1 72 17 142/83 (102) 97 I&O Intake and Output 08/27/19 08/28/19 19:00 07:00 Intake Total 295 ml 400 ml Output Total 650 ml 1050 ml Balance -355 ml -650 ml Intake Oral 240 ml 400 ml IV Total 55 ml Output Urine Total 650 ml 1000 ml Stool Total 50 ml Dressing: dry Wound: clean Cardiovascular: RSR Respiratory: clear Abdomen: soft, non-tender, present bowel sounds, other, non-distended Extremities: no edema, no tenderness, no cyanosis Laboratory Tests Test 08/28/19 10:30 White Blood Count 8.5 K/UL (4.8-10.8) Red Blood Count 3.93 M/UL (4.70-6.10) L Hemoglobin 9.8 G/DL (14.2-18.0) L Hematocrit 32.5 % (42.0-52.0) L Mean Corpuscular Volume 83 FL (80-99) Mean Corpuscular Hemoglobin 24.9 PG (27.0-31.0) L Mean Corpuscular Hemoglobin Concent 30.1 G/DL (32.0-36.0) L Red Cell Distribution Width 18.6 % (11.6-14.8) H Platelet Count 364 K/UL (150-450) Mean Platelet Volume 4.9 FL (6.5-10.1) L Neutrophils (%) (Auto) 70.5 % (45.0-75.0) Lymphocytes (%) (Auto) 19.4 % (20.0-45.0) L Monocytes (%) (Auto) 8.6 % (1.0-10.0) Eosinophils (%) (Auto) 0.4 % (0.0-3.0) Basophils (%) (Auto) 1.1 % (0.0-2.0) Sodium Level 137 MMOL/L (136-145) Potassium Level 3.2 MMOL/L (3.5-5.1) L Chloride Level 98 MMOL/L (98-107) Carbon Dioxide Level 30 MMOL/L (21-32) Anion Gap 9 mmol/L (5-15) Blood Urea Nitrogen 14 mg/dL (7-18) Creatinine 1.3 MG/DL (0.55-1.30) Estimat Glomerular Filtration Rate 56.7 mL/min (>60) Glucose Level 102 MG/DL (74-106) Calcium Level 8.7 MG/DL (8.5-10.1) Phosphorus Level 2.9 MG/DL (2.5-4.9) Magnesium Level 1.3 MG/DL (1.8-2.4) L Total Bilirubin 0.6 MG/DL (0.2-1.0) Aspartate Amino Transf (AST/SGOT) 15 U/L (15-37) Alanine Aminotransferase (ALT/SGPT) 7 U/L (12-78) L Alkaline Phosphatase 146 U/L (46-116) H Total Protein 7.3 G/DL (6.4-8.2) Albumin 2.5 G/DL (3.4-5.0) L Globulin 4.8 g/dL Albumin/Globulin Ratio 0.5 (1.0-2.7) L Plan Problems: (1) Left leg pain Assessment & Plan: Patient presented admission complaining of left leg pain. On evaluation there is deformity left lower extremity plain films reviewed and obvious deformity noted as the femoral proximal is dislocated from the shaft. Patient is nonambulatory at baseline per report. He is somewhat cooperative examined with exam but a poor historian. Multiple skin concerns identified. Pt presented on admission with multiple Pressure Injuries, Bilat foot drop. Historical scar noted to L Hip Large Full Thickness Pressure Injury Buttocks with undermining and tunneling. Wound has irregular borders extends from Sacrum to L ischium and base of Scrotum,laterally from Outer R to Outer L gluteus.(L)18.9cm x (W)18.5cm x (D) 3.7cm, undermining clockwise 10-3 by 5.9cm @3o'clock,Tunneling clockwise @6o' clock by 2.7cm.Scattered Biofilm with [place] granulation at base of wound ,bone is palpable in tunneled and undermined areas. At distal base of wound, at scrotum is an area of slough-size of Quarter. Small amt non-odorous serous exudate.Periwound is pink with scattered brownish skin tone.( Full thickness Pressure injury R Ischium(L)9.5cm x (W)9.7cm x (D)4.2cm, Tunneling clockwise into perineum at 7o'clock by 5.3cm. Base of wound has scattered slough. Bone is palpable . Small amt seropurulent exudate. Mild odor which resolved post cleansing of wound.Erythema noted along edges. Additional area of slough noted periwound along borders clockwise @3-4o'clock. Non-Blanching erythema noted to Protruding bony prominence L Hip. Dry, loosening eschar lateral L tibia. (L)1.1cm x (W)0.4cm.[place] epithelial along borders. Stable dry, brown eschar noted to medial L tibia(L)4.3cm x (W)1cm. Stable dry eschar noted to Plantar L Heel. (L)4.5cm x (W)2cm. Periwound is boggy but blanchable.Historical scar alson noted periwound. Full thickness pressure injury Plantar R Heel (L)1.2cm x (W)2.5cm x (D)0.2cm. 80 % pink granulation,20% slough at base of wound. Edges are macerated. Small amt non-odorous serous exudate. Periwound is boggy but blanchable. Tx.Plan: Cleanse wound Buttocks with Saline. Loosely Pack wound including undermined areas with Hydrogel impregnated Kerlix.Apply Moisture Barrier Paste along borders. Cover with ABD Pads and secure with Tegaderm Daily and prn. Cleanse R Ischial Wound with Saline. Loosely pack with Hydrogel Impregnated Kerlix. Apply Moisture Barrier Periwound. Cover with ABD Pad and secure with Tegaderm Daily and prn. Apply Cavilon Skin Barrier to L Hip Bony Protrusion (Do Not Rub/ Massage area). Cover with Optifoam drsg. Change every 3 days and prn. Apply Betadine to Medial and lateral L Tibial wounds. Cover with Optifoam drsg every 3 days and prn. Apply Betadine to Plantar L Heel wound. Cover with Optifoam drsg. Change every 3 days and prn. Apply Betadine to Plantar R heel wound. Cover with Optifoam drsg every 3 days and prn. Reposition at least every 2hours or as tolerated. Place pillow between knees. Off-Load Heels with Pillow. APM/SUMI Mattress overlay. (2) Femur fracture Assessment & Plan: There is an old amputation defect across the mid femoral shaft. The mid to distal femur is unremarkable with normal articulation at the knee. The proximal femur including the femoral head is not visualized likely resected. There is deformity of the left hip/acetabulum likely posttraumatic. Adjacent heterotopic ossification noted. Surrounding soft tissue is normal. 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 can be done ioutpatient as this is chronic ostomy prolapse stable loop and functional (3) Urinary tract infection (4) Sacral decubitus ulcer Assessment & Plan: Patient with a prolapsed loop ostomy identified. Still functional viable reducible. outpt follow up for revision (5) Paraplegia (6) Ileostomy prolapse Assessment & Plan: loop ileostomy prolapse noted. distal limb prolapsed proximal mild with gas and stool output. reducible easily at bedside but prolapse easily no n/v/f/c functional recommend elective repair Cornelius Salgado Aug 28, 2019 13:40
--- NOTE | 2019-08-28 13:44 | NUR ---
CASE MANAGEMENT:REVIEW 08/26/19 SI;LT PROXIMAL FEMUR FRACTURE. UTI. PARAPLEGIA. ILEOSTOMY PROLAPSE. 98.9 50 20 96% ON RA IS;ERTAPENEM IV Q24 HR DOXYCYCLINE PO Q12 HR K-DUR PO QD HEPARIN SUBQ Q12 HR MED SURG STATUS DCP;FROM [facility] CASE MANAGEMENT:REVIEW 08/27/19 SI;LT PROXIMAL FEMUR FRACTURE. UTI. PARAPLEGIA. ILEOSTOMY PROLAPSE. 101.1 52 20 162/81 94% ON RA H/H 9.8/30.9 K+ 3.0 CR 1.5 ALB 2.2 IS;ERTAPENEM IV Q24 HR DOXYCYCLINE PO Q12 HR K-DUR PO QD HEPARIN SUBQ Q12 HR MED SURG STATUS DCP;FROM [facility] CASE MANAGEMENT:REVIEW 08/28/19 SI;LT PROXIMAL FEMUR FRACTURE. UTI. PARAPLEGIA. ILEOSTOMY PROLAPSE. 98.8 67 20 96% ON RA H/H 9.8/32.5 K+ 3.2 MG 1.3 ALK PHOS 146 ALB 2.5 IS;ERTAPENEM IV Q24 HR DOXYCYCLINE PO Q12 HR K-DUR PO QD HEPARIN SUBQ Q12 HR MED SURG STATUS DCP;FROM [facility] SNF UNABLE TO OBTAIN [facility]IA D/T LAPSE OF COVERAGE PLAN: VERIFY ELIGIBILITY OF COVERAGE SNF PLACEMENT
--- NOTE | 2019-08-28 13:57 | NUR ---
*-* INSURANCE *-* UPDATED CLINICALS AND REVIEWS HAVE BEEN FAXED TO: [employer] REF# [id number] F: [phone] Addendum: 08/28/19 at 1402 by DESTINY CARIAS CM UPDATED CLINICALS, REVIEWS AND DISCHARGE SUMMARY HAVE BEEN FAXED
--- NOTE | 2019-08-28 15:30 | NUR ---
NURSE NOTES:WOUND CARE FOLLOW-UP NOTES:Pt's wounds are resolving . Full thickness Pressure injury with irregular borders which extends from Sacrum into L ischium (L)17.5cm x (W)15.6cmx (D)1.5cm undermining clockwise 9-1 by 4cm @ 9o'clock, tunneling at 6o'clock at Ischium by 1cm. Base of wound is mixed beefy granulation with areas that are pink. Small amt Biofilm noted. Moderate amt non-odorous serous exudate.Scattered areas of darker-brown skin periwound. Full Thickness Pressure injury with undermined borders R Ischium(L)8cm x (W)6.5cmx (D)1.4cm, tunneling 9-12o'clock by 3.3cm, tunneling at 7o'clock by 1.8cm.scattered beefy granulation with areas that are pink and moist . Small amt Biofilm noted. Historical Mary scar noted to R sacrum/R gluteal cheek. Bony prominences scapulae ,bilat hips/trochanteric areas, bilat knees and malleoli assessed and no areas of concerns noted. Skin barrier wipes applied to aforementioned areas and each area covered with Optifoam drsgs to minimize and prevent further skin breakdown. Stable dry eschar plantar L heel (L)4.2cm x (W)3cm. Resolving Pressure injury plantar R heel. Base of wound is pale pink and moist . Borders are macerated. NO odor or exudate noted. All wound Prevention protocols continued as care-planned . Pt has an APM/SUMI mattress overlay on his bed and is being positioned as per tolerance ,and within protocols. Wound Tx are effective and continued as per orders.
[2019-08-28 16:00] VITALS: BP 147/75
--- NOTE | 2019-08-28 19:30 | NUR ---
NURSE NOTES: RECEIVED PATIENT FROM TANJA YOUNG. PATIENT IS AWAKE, AAOX2, ON ROOM AIR, NO ACUTE DISTRESS NOTED. COLOSTOMY BAG NOTED ON LEFT LOWER ABDOMEN, INTACT, LIGHT BROWN BOWEL NOTED. WOUND DRESSINGS INTACT AND DRY. CHAVEZ CATH IN PLACE, DRAINING WELL, YELLOW URINE NOTED. CHAVEZ ANCHOR IN PLACE. PIV ON RIGHT FA 24G INTACT AND PATENT. PATIENT IS ON BILATERAL SOFT WRIST RESTRAINTS, PULSES PRESENT, NO REDNESS OR SWELLING NOTED AT SITES. BED IS LOCKED AND LOW, BED ALARMS ACTIVE, SIDE RAILS UP X2 AND CALL LIGHT IS WITHIN REACH. WILL CONTINUE TO MONITOR.
--- NOTE | 2019-08-28 19:38 | NUR ---
HAND-OFF: Report given to TANJA Cardenas.
[2019-08-28 20:00] VITALS: BP 144/71
--- NOTE | 2019-08-28 20:52 | Infectious Diseases Prog Note ---
Assessment/Plan Assessment/Plan ASSESSMENT AND PLAN: 1. enterobacter uti, manufacturing lead bacteremia- 4/4 bottles, ? endocarditis, ? mrsa/ proteus sacral wound infection, sepsis, leukocytosis, fevers, mrsa colonization, ARF - ertapenem and doxycycline po - finish course, discontinue - surveillance blood cultures - negative - wound care per surgery - monitor labs - TTE without vegetations - leukocytosis resolved 2. Paraplegia. 3. Chronic catheter. 4. Sacral wound. 5. Anemia. 6. No history of diabetes or hypertension. 7. Pain management per primary care team. 8. No known allergies. 9. Social history is negative. 10. Family history is contributory. 11. MAR was noted. 12. Case discussed with RN. Subjective Constitutional: Denies: fever Respiratory: Denies: shortness of breath Gastrointestinal/Abdominal: Denies: nausea, vomiting Genitourinary: Reports: other - + donohue Neurologic: Denies: headache Psychiatric: Denies: depression Hematologic: Denies: bleeding Musculoskeletal: Denies: pain Allergies: Coded Allergies: No Known Allergies (Unverified , 08/15/19) Objective Vital Signs Last 24 Hour Vital Signs Date Time Temp Pulse Resp B/P (MAP) Pulse Ox O2 Delivery O2 Flow Rate FiO2 08/28/19 16:00 98.6 66 16 147/75 (99) 96 08/28/19 12:00 98.4 67 16 152/83 (106) 96 08/28/19 09:00 Room Air 08/28/19 08:00 98.8 60 19 150/78 (102) 96 08/28/19 04:00 97.7 63 18 146/81 (102) 08/28/19 00:00 96.8 63 20 152/84 (106) 98 08/27/19 21:00 Room Air Height (Feet): 5 Height (Inches): 7.00 Weight (Pounds): 137 General Appearance: no acute distress HEENT: normocephalic, atraumatic, anicteric Respiratory/Chest: chest wall non-tender, lungs clear, normal breath sounds, no respiratory distress, no accessory muscle use Cardiovascular: normal rate, regular rhythm, no gallop/murmur, no JVD Abdomen: normal bowel sounds, soft, non tender Genitourinary: other - + donohue Extremities: no cyanosis Skin: no rash Neurologic/Psychiatric: operater II-XII grossly normal, alert, responsive Lymphatic: no neck adenopathy Musculoskeletal: no effusion Objective Chest x-ray - 08/15/19 - Procedure: XRAY Chest 1v Procedure: XRAY Chest 1v Reason for study: Chest pain Comparison films: None. FINDINGS: A single one view chest is obtained. Vascularity is normal. The lung hess are clear bilaterally. Cardiac and mediastinal silhouette are within normal limits. CP angles are sharp. The bony thorax appear unremarkable. IMPRESSION: NO ACUTE CARDIOPULMONARY DISEASE. Microbiology Date/Time Source Procedure Growth Status 08/18/19 16:45 Blood Blood Culture - Final NO GROWTH AFTER 5 DAYS Complete 08/15/19 18:50 Nasopharynx Coronavirus COVID-19 PCR (GENE) - Final Complete 08/19/19 15:14 Urine,Clean Catch Urine Culture - Final NO GROWTH AFTER 48 HOURS Complete 08/16/19 18:20 Sacral Wound Gram Stain - Final Complete 08/16/19 18:20 Wound Culture - Final Staphylococcus Aureus - Mrsa Proteus Mirabilis Complete Laboratory Tests Test 08/28/19 10:30 White Blood Count 8.5 K/UL (4.8-10.8) Red Blood Count 3.93 M/UL (4.70-6.10) L Hemoglobin 9.8 G/DL (14.2-18.0) L Hematocrit 32.5 % (42.0-52.0) L Mean Corpuscular Volume 83 FL (80-99) Mean Corpuscular Hemoglobin 24.9 PG (27.0-31.0) L Mean Corpuscular Hemoglobin Concent 30.1 G/DL (32.0-36.0) L Red Cell Distribution Width 18.6 % (11.6-14.8) H Platelet Count 364 K/UL (150-450) Mean Platelet Volume 4.9 FL (6.5-10.1) L Neutrophils (%) (Auto) 70.5 % (45.0-75.0) Lymphocytes (%) (Auto) 19.4 % (20.0-45.0) L Monocytes (%) (Auto) 8.6 % (1.0-10.0) Eosinophils (%) (Auto) 0.4 % (0.0-3.0) Basophils (%) (Auto) 1.1 % (0.0-2.0) Sodium Level 137 MMOL/L (136-145) Potassium Level 3.2 MMOL/L (3.5-5.1) L Chloride Level 98 MMOL/L (98-107) Carbon Dioxide Level 30 MMOL/L (21-32) Anion Gap 9 mmol/L (5-15) Blood Urea Nitrogen 14 mg/dL (7-18) Creatinine 1.3 MG/DL (0.55-1.30) Estimat Glomerular Filtration Rate 56.7 mL/min (>60) Glucose Level 102 MG/DL (74-106) Calcium Level 8.7 MG/DL (8.5-10.1) Phosphorus Level 2.9 MG/DL (2.5-4.9) Magnesium Level 1.3 MG/DL (1.8-2.4) L Total Bilirubin 0.6 MG/DL (0.2-1.0) Aspartate Amino Transf (AST/SGOT) 15 U/L (15-37) Alanine Aminotransferase (ALT/SGPT) 7 U/L (12-78) L Alkaline Phosphatase 146 U/L (46-116) H Total Protein 7.3 G/DL (6.4-8.2) Albumin 2.5 G/DL (3.4-5.0) L Globulin 4.8 g/dL Albumin/Globulin Ratio 0.5 (1.0-2.7) L Current Medications Medications (Trade) Dose Ordered Sig/Mya Route PRN Reason Start Time Stop Time Status Last Admin Dose Admin Acetaminophen (Tylenol) 650 mg Q6H PRN ORAL Temp >100.5 08/16/19 00:45 09/15/19 00:44 08/27/19 16:22 Doxycycline Monohydrate (Doxycycline Monohydrate) 100 mg EVERY 12 HOURS ORAL 08/23/19 21:00 08/30/19 20:59 08/28/19 08:37 Ertapenem 1 gm/ Sodium Chloride 55 ml @ 110 mls/hr Q24H IV 08/27/19 10:00 08/29/19 09:59 08/28/19 10:06 Heparin Sodium (Porcine) (Heparin 5000 units/ml) 5,000 units EVERY 12 HOURS SUBQ 08/16/19 09:00 09/30/19 08:59 08/28/19 08:38 Sharif Painting MD Aug 28, 2019 20:52
[2019-08-29] VITALS: BP 142/88
[2019-08-29 04:00] VITALS: BP 120/80
--- NOTE | 2019-08-29 07:25 | NUR ---
NURSE NOTES: RECEIVED PATIENT FROM JEN, RN. PATIENT IS AAOX2, ON ROOM AIR, NO ACUTE CARDIO-RESP DISTRESS NOTED. COLOSTOMY BAG NOTED ON LEFT LOWER QUADRANT, INTACT, LIGHT BROWN BOWEL NOTED. WOUND DRESSINGS INTACT AND DRY. CHAVEZ CATH IN PLACE, DRAINING WELL, YELLOW URINE NOTED. CHAVEZ ANCHOR IN PLACE. PIV ON RIGHT FA 24G INTACT AND PATENT. PATIENT IS ON BILATERAL SOFT WRIST RESTRAINTS FOR REMOVING DEVICES. PULSES PRESENT, NO REDNESS OR SWELLING NOTED AT SITES. BED IS LOCKED AND LOWEST POSITION, BED ALARMS ACTIVE, SIDE RAILS UP X3 AND CALL LIGHT IS WITHIN REACH. WILL CONTINUE TO MONITOR.
[2019-08-29 08:00] VITALS: BP 134/79
--- NOTE | 2019-08-29 08:00 | NUR ---
HAND-OFF: Report given to VIANEY Rae.
[2019-08-29] MEDS: Heparin 5000 units/ml inj SUBQ SCH ×2 (08:47→20:54)
--- NOTE | 2019-08-29 09:38 | NUR ---
PHARMACY BUYER NOTE FOLLOW UP WITH TRISTA IN ADMITTING IN RE TO PATIENTS INSURANCE. PER TRISTA, CONFIRMED MEDI-CINDY STATUS AND INFORMED THIS CM THAT PATIENT IS CURRENTLY UNDER STRAIGHT MEDI-CINDY. CALL MADE TO [facility]. BRUSHER TENDER NOT AVAILABLE AT TIME OF CALL. WAS INFORMED TO CALL BACK. Addendum: 08/29/19 at 1400 by KELLY RICHMOND LVN LVN S/Marcela GRIFFITH AT [facility]. CONFIRMED WITH GLADIS THAT PATIENT CURRENTLY HAS REGULAR MEDI-CINDY. PER GLADIS, UNABLE TO ACCEPT PATIENT UNDER REGULAR MEDI-CINDY.
--- NOTE | 2019-08-29 10:24 | NUR ---
RD ASSESSMENT & RECOMMENDATIONS SEE CARE ACTIVITY FOR COMPLETE ASSESSMENT DAILY ESTIMATED NEEDS: Needs based on Advanced wounds/ 54kg 30-35 kcals/kg 1230-5094 total kcals 1.5-2.0 g protein/kg 81-108 g total protein 25-30 mL/kg 9219-6086 total fluid mLs NUTRITION DIAGNOSIS: Increased kcal/prot/micronutrients needs R/T wound healing as evidenced by pt admitted w/ advanced wounds, including full thickness wounds @ buttocks, R ischium (tunneling, bone palpable), and plantar R Heel, w/ poor po intake. CURRENT DIET:REGULAR, mech soft ground PO DIET RECOMMENDATIONS: REGULAR, texture as tolerated or per ROUTE SERVICE MANAGER ENTERAL NUTRITION RECOMMENDATIONS: CONSULT RD IF NON ORAL FEEDS ARE PART OF POC ADDITIONAL RECOMMENDATIONS: * Per SNF: HT=66" YW=691mcy (as of 08/14/19) -> vs current est CBW =96lbs (bedscale wt 55kg - wt of p200 adryan+pump) * Ensure Enlive TID w/ meals (350kcal/20g prot each) * Pt w/ consistently poor PO, mostly refusing meals -> consider appetite stimulant or nonoral feeds if part of POC * Wound healing: add MVI w/ mineral 1 tab QD, Vit C 500mg BID ZnSO4 220mg QD x 10 days, Amari 1pkt BID as tolerated
[2019-08-29 11:36] VITALS: BP 133/68
--- NOTE | 2019-08-29 11:56 | Internal Med Progress Note ---
Subjective Date of Service: Aug 29, 2019 Physician Name Beatrice Ferrera Attending Physician Thalia Marx MD Current Medications Medications (Trade) Dose Ordered Sig/Mya Route PRN Reason Start Time Stop Time Status Last Admin Dose Admin Acetaminophen (Tylenol) 650 mg Q6H PRN ORAL Temp >100.5 08/16/19 00:45 09/15/19 00:44 08/27/19 16:22 Heparin Sodium (Porcine) (Heparin 5000 units/ml) 5,000 units EVERY 12 HOURS SUBQ 08/16/19 09:00 09/30/19 08:59 08/29/19 08:47 Allergies: Coded Allergies: No Known Allergies (Unverified , 08/15/19) Subjective Patient visited at bedside, vitals stable, no new labs to review. No need for daily labs as this point he is a placement issue. Case management working on placement to snf facility Objective Last Vital Signs Date Time Temp Pulse Resp B/P (MAP) Pulse Ox O2 Delivery O2 Flow Rate FiO2 08/29/19 11:36 97.8 75 18 133/68 (89) 95 08/29/19 09:00 Room Air Intake and Output 08/28/19 08/29/19 19:00 07:00 Intake Total 590 ml 360 ml Output Total 800 ml Balance 590 ml -440 ml Intake Oral 480 ml IV Total 110 ml Other 360 ml Output Urine Total 800 ml Objective General Appearance: no apparent distress, other - in restraints EENT: PERRL/EOMI Cardiovascular: normal rate, regular rhythm Respiratory/Chest: lungs clear, normal breath sounds Abdomen: soft, [place] bag Genitourinary/Rectal: other Extremities: normal range of motion Neurologic: manager nc II-XII grossly normal Assessment/Plan Assessment/Plan Assessment #Sepsis 2/2 UTI w/ gram negative bacilli #Acute Renal Failure on CKD #Anemia of Chronic Dx #Paraplegia/ Hx of LLE amputation #Decubitus Ulcers #Dementia Plan Appreciate consultants. Discharge Planning. Continue Doxycylcine and Ertapenem per ID and Cx. DVT ppx. Diet as tolerated. D/C to SNF 08/26: Await SNF bed placement, AM labs 08/28: Need for daily labs, complete antibiotic course. Continue supportive measures, working on DC to alf Beatrice Ferrera D.O. Aug 29, 2019 11:56
--- NOTE | 2019-08-29 13:21 | Nephrology Progress Note ---
Assessment/Plan Plan #Maxwell - likely due to vancomycin toxicity #sepsis due to UTI #Hyponatremia #hypomagnesemia #history for femur amputation #Left leg pain #Hx Left leg amputation #Paraplegia #Sacral decub ulcer #anemia - Cr downtrending - check renal US-> IMPRESSION: Mildly echogenic right kidney. This is nonspecific but may suggest renal parenchymal disease. No hydronephrosis. - placed donohue - Dc ivf - replete lytes - DC midodrine to 5mg TID - DC VANCO - antibiotics per D - follow urine cx - monitor mag, phos, BMP daily - surgery eval - pain control - monitor WBC - monitor UOP - avoid nephrotoxins Time spent 70 minutes, greater than 50% on care coordination and counseling Subjective ROS Limited/Unobtainable: Yes Subjective Cr downtrending Dced vanco check renal US-> IMPRESSION: Mildly echogenic right kidney. This is nonspecific but may suggest renal parenchymal disease. No hydronephrosis. Objective Objective Last 24 Hour Vital Signs Date Time Temp Pulse Resp B/P (MAP) Pulse Ox O2 Delivery O2 Flow Rate FiO2 08/29/19 11:36 97.8 75 18 133/68 (89) 95 08/29/19 09:00 Room Air 08/29/19 08:00 98.2 77 18 134/79 (97) 95 08/29/19 04:00 97.2 68 18 120/80 (93) 96 08/29/19 00:00 98.1 83 20 142/88 (106) 96 08/28/19 21:00 Room Air 08/28/19 20:00 97.9 67 18 144/71 (95) 96 08/28/19 16:00 98.6 66 16 147/75 (99) 96 Intake and Output 08/28/19 08/29/19 19:00 07:00 Intake Total 590 ml 360 ml Output Total 800 ml Balance 590 ml -440 ml Intake Oral 480 ml IV Total 110 ml Other 360 ml Output Urine Total 800 ml Height (Feet): 5 Height (Inches): 7.00 Weight (Pounds): 137 Sienna Georges M.D. Aug 29, 2019 13:21
--- NOTE | 2019-08-29 14:01 | NUR ---
CASE MANAGEMENT:REVIEW SI;SEPSIS. GRAM NEG BACILLI UTI. SEAN. 98.2 83 20 142/88 95% ON RA IS;HEPARIN SUBQ Q12 MED SURG STATUS DCP;PATIENT IS FROM [facility];PATIENT UNABLE TO RETURN TO ORIGINATING SNF D/T INSURANCE WILL SEEK PLACEMENT ACCEPTING REGULAR MEDI-CINDY
--- NOTE | 2019-08-29 15:19 | Surgery Progress Note ---
Surgery Progress Note Subjective Symptoms: improved, tolerating diet, voiding well, passing flatus Objective Last 24 Hour Vital Signs Date Time Temp Pulse Resp B/P (MAP) Pulse Ox O2 Delivery O2 Flow Rate FiO2 08/29/19 11:36 97.8 75 18 133/68 (89) 95 08/29/19 09:00 Room Air 08/29/19 08:00 98.2 77 18 134/79 (97) 95 08/29/19 04:00 97.2 68 18 120/80 (93) 96 08/29/19 00:00 98.1 83 20 142/88 (106) 96 08/28/19 21:00 Room Air 08/28/19 20:00 97.9 67 18 144/71 (95) 96 08/28/19 16:00 98.6 66 16 147/75 (99) 96 I&O Intake and Output 08/28/19 08/29/19 19:00 07:00 Intake Total 590 ml 360 ml Output Total 800 ml Balance 590 ml -440 ml Intake Oral 480 ml IV Total 110 ml Other 360 ml Output Urine Total 800 ml Dressing: dry Wound: clean Cardiovascular: RSR Respiratory: clear Abdomen: soft, non-tender, present bowel sounds Extremities: no edema, no tenderness, no cyanosis Plan Problems: (1) Left leg pain Assessment & Plan: Patient presented admission complaining of left leg pain. On evaluation there is deformity left lower extremity plain films reviewed and obvious deformity noted as the femoral proximal is dislocated from the shaft. Patient is nonambulatory at baseline per report. He is somewhat cooperative examined with exam but a poor historian. Multiple skin concerns identified. Pt presented on admission with multiple Pressure Injuries, Bilat foot drop. Historical scar noted to L Hip Large Full Thickness Pressure Injury Buttocks with undermining and tunneling. Wound has irregular borders extends from Sacrum to L ischium and base of Scrotum,laterally from Outer R to Outer L gluteus.(L)18.9cm x (W)18.5cm x (D) 3.7cm, undermining clockwise 10-3 by 5.9cm @3o'clock,Tunneling clockwise @6o' clock by 2.7cm.Scattered Biofilm with [place] granulation at base of wound ,bone is palpable in tunneled and undermined areas. At distal base of wound, at scrotum is an area of slough-size of Quarter. Small amt non-odorous serous exudate.Periwound is pink with scattered brownish skin tone.( Full thickness Pressure injury R Ischium(L)9.5cm x (W)9.7cm x (D)4.2cm, Tunneling clockwise into perineum at 7o'clock by 5.3cm. Base of wound has scattered slough. Bone is palpable . Small amt seropurulent exudate. Mild odor which resolved post cleansing of wound.Erythema noted along edges. Additional area of slough noted periwound along borders clockwise @3-4o'clock. Non-Blanching erythema noted to Protruding bony prominence L Hip. Dry, loosening eschar lateral L tibia. (L)1.1cm x (W)0.4cm.[place] epithelial along borders. Stable dry, brown eschar noted to medial L tibia(L)4.3cm x (W)1cm. Stable dry eschar noted to Plantar L Heel. (L)4.5cm x (W)2cm. Periwound is boggy but blanchable.Historical scar alson noted periwound. Full thickness pressure injury Plantar R Heel (L)1.2cm x (W)2.5cm x (D)0.2cm. 80 % pink granulation,20% slough at base of wound. Edges are macerated. Small amt non-odorous serous exudate. Periwound is boggy but blanchable. Tx.Plan: Cleanse wound Buttocks with Saline. Loosely Pack wound including undermined areas with Hydrogel impregnated Kerlix.Apply Moisture Barrier Paste along borders. Cover with ABD Pads and secure with Tegaderm Daily and prn. Cleanse R Ischial Wound with Saline. Loosely pack with Hydrogel Impregnated Kerlix. Apply Moisture Barrier Periwound. Cover with ABD Pad and secure with Tegaderm Daily and prn. Apply Cavilon Skin Barrier to L Hip Bony Protrusion (Do Not Rub/ Massage area). Cover with Optifoam drsg. Change every 3 days and prn. Apply Betadine to Medial and lateral L Tibial wounds. Cover with Optifoam drsg every 3 days and prn. Apply Betadine to Plantar L Heel wound. Cover with Optifoam drsg. Change every 3 days and prn. Apply Betadine to Plantar R heel wound. Cover with Optifoam drsg every 3 days and prn. Reposition at least every 2hours or as tolerated. Place pillow between knees. Off-Load Heels with Pillow. APM/SUMI Mattress overlay. (2) Femur fracture Assessment & Plan: There is an old amputation defect across the mid femoral shaft. The mid to distal femur is unremarkable with normal articulation at the knee. The proximal femur including the femoral head is not visualized likely resected. There is deformity of the left hip/acetabulum likely posttraumatic. Adjacent heterotopic ossification noted. Surrounding soft tissue is normal. 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 can be done ioutpatient as this is chronic ostomy prolapse stable loop and functional (3) Urinary tract infection (4) Sacral decubitus ulcer Assessment & Plan: Patient with a prolapsed loop ostomy identified. Still functional viable reducible. outpt follow up for revision (5) Paraplegia (6) Ileostomy prolapse Assessment & Plan: loop ileostomy prolapse noted. distal limb prolapsed proximal mild with gas and stool output. reducible easily at bedside but prolapse easily no n/v/f/c functional recommend elective repair Cornelius Salgado Aug 29, 2019 15:19
[2019-08-29 16:00] VITALS: BP 138/75
[2019-08-29 16:29] LABS: ANION GAP 11 mmol/L (5-15); BLOOD UREA NITROGEN 14 mg/dL (7-18); CALCIUM 8.8 MG/DL (8.5-10.1); CARBON DIOXIDE 28 MMOL/L (21-32); CHLORIDE 98 MMOL/L (98-107); CREATININE 1.3 MG/DL (0.55-1.30); POTASSIUM 3.5 MMOL/L (3.5-5.1); SODIUM 137 MMOL/L (136-145)
--- NOTE | 2019-08-29 19:00 | NUR ---
HAND-OFF: Report given to JEN.
--- NOTE | 2019-08-29 19:15 | NUR ---
NURSE NOTES: RECEIVED PATIENT FROM VIANEY ZELAYA. PATIENT IS ASLEEP, ON ROOM AIR, NO ACUTE DISTRESS NOTED. COLOSTOMY BAG NOTED ON LEFT LOWER ABDOMEN, INTACT, SMALL AMOUNT OF LIGHT BROWN BOWEL NOTED. WOUND DRESSINGS INTACT AND DRY. CHAVEZ CATH IN PLACE, DRAINING WELL, YELLOW URINE NOTED. CHAVEZ ANCHOR IN PLACE. PIV ON RIGHT FA 24G INTACT AND PATENT. PATIENT IS ON BILATERAL SOFT WRIST RESTRAINTS, PULSES PRESENT, NO REDNESS OR SWELLING NOTED AT SITES. BED IS LOCKED AND LOW, BED ALARMS ACTIVE, SIDE RAILS UP X2 AND CALL LIGHT IS WITHIN REACH. WILL CONTINUE TO MONITOR.
[2019-08-29 20:00] VITALS: BP 136/53
[2019-08-30] VITALS: BP 123/50
[2019-08-30 04:00] VITALS: BP 124/83
--- NOTE | 2019-08-30 07:27 | NUR ---
HAND-OFF: Report given to VIANEY Chandra. Patient is in stable condition. Endorsed plan of care.
[2019-08-30 08:00] VITALS: BP 136/78
[2019-08-30] MEDS: Heparin 5000 units/ml inj SUBQ SCH ×2 (08:15→20:13)
--- NOTE | 2019-08-30 08:20 | NUR ---
NURSE NOTES: RECEIVED PATIENT FROM JEN, RN. PATIENT IS A/A/OX2, MUMBLES THIS AM IN [place]. ON ROOM AIR, NO ACUTE CARDIO-RESP DISTRESS NOTED. COLOSTOMY BAG NOTED ON LEFT LOWER QUADRANT, INTACT, LIGHT BROWN BOWEL NOTED. WOUND DRESSINGS INTACT AND DRY. CHAVEZ CATH IN PLACE, DRAINING WELL, YELLOW URINE NOTED. CHAVEZ ANCHOR IN PLACE. IV SITE ON RIGHT FA 24G INTACT AND PATENT. PATIENT IS ON BILATERAL SOFT WRIST RESTRAINTS FOR REMOVING DEVICES AND IMPULSIVENESS/COMBATIVESNESS. PULSES PRESENT, NO REDNESS OR SWELLING NOTED AT SITES. ON P200 MATTRESS FOR SKIN INTEGRITY. WOUND DRSG ARE DRY AND INTACT. FED AND ABLE TO CONSUMED 80% THIS BREAKFAST. BED IS LOCKED AND LOWEST POSITION, BED ALARMS ACTIVE, SIDE RAILS UP X3 AND CALL LIGHT IS WITHIN REACH. WILL CONTINUE TO MONITOR.
--- NOTE | 2019-08-30 08:38 | NUR ---
RD ASSESSMENT & RECOMMENDATIONS SEE CARE ACTIVITY FOR COMPLETE ASSESSMENT DAILY ESTIMATED NEEDS: Needs based on Advanced wounds/ 54kg 30-35 kcals/kg 2662-0123 total kcals 1.5-2.0 g protein/kg 81-108 g total protein 25-30 mL/kg 1305-1265 total fluid mLs NUTRITION DIAGNOSIS: Increased kcal/prot/micronutrients needs R/T wound healing as evidenced by pt admitted w/ advanced wounds, including full thickness wounds @ buttocks, R ischium (tunneling, bone palpable), and plantar R Heel, w/ consistently poor PO intake, refusing most meals. 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 ENTERAL NUTRITION RECOMMENDATIONS: Jevity 1.2 @ 60ml/hr x 24 hrs to provide 1440ml, 1728kcal, 80g prot, 1162ml free water Consider nonoral feeding due to prolonged poor PO (mostly refusing meals since admission, day 15 today), underweight status, and w/ advanced wounds, pt is full code -> If part of POC, obtain GI access -> Initiate Jevity 1.2 @ 10ml/hr x 6hrs, advance 10ml q 4-6 hrs as tolerated to goal -> HOB over 30 degrees/ H2O flush of 120ml q 8hrs -> PT AT HIGH RISK FOR REFEEDING SYNDROME, START TF @ LOW RATE, INCREASE SLOWLY, MONITOR LYTES DAILY, REPLETE NEEDED ADDITIONAL RECOMMENDATIONS: * Per SNF: HT=66" AC=610jui (as of 08/14/19) -> vs curren est CBW =96lbs (bedscale wt 55kg - wt of p200 adryan+pump) * Ensure Enlive TID w/ meals (350kcal/20g prot each) * Pt w/ consistently poor PO (DAY 15 TODAY), mostly refusing meals -> consider appetite stimulant or nonoral feeds (TF REC ABOVE) * Wound healing: add MVI w/ mineral 1 tab QD, Vit C 500mg BID ZnSO4 220mg QD x 10 days Amari 1pkt BID as tolerated
--- NOTE | 2019-08-30 10:29 | NUR ---
CASE MANAGEMENT:REVIEW SI;SEPSIS. GRAM NEG BACILLI UTI. SEAN. 98.4 101 20 136/53 95% ON RA IS;HEPARIN SUBQ Q12 MED SURG STATUS DCP;PATIENT IS FROM [facility] PATIENT UNABLE TO RETURN D/T INSURANCE PLAN;SNF PLACEMENT UPON ACCEPTANCE
--- NOTE | 2019-08-30 11:13 | Internal Med Progress Note ---
Subjective Date of Service: Aug 30, 2019 Physician Name Beatrice Ferrera Attending Physician Thalia Marx MD Current Medications Medications (Trade) Dose Ordered Sig/Mya Route PRN Reason Start Time Stop Time Status Last Admin Dose Admin Acetaminophen (Tylenol) 650 mg Q6H PRN ORAL Temp >100.5 08/16/19 00:45 09/15/19 00:44 08/27/19 16:22 Heparin Sodium (Porcine) (Heparin 5000 units/ml) 5,000 units EVERY 12 HOURS SUBQ 08/16/19 09:00 09/30/19 08:59 08/30/19 08:15 Allergies: Coded Allergies: No Known Allergies (Unverified , 08/15/19) Subjective No acute events. Vitals stable. Patient is a placement issue. No need for daily labs. Objective Last Vital Signs Date Time Temp Pulse Resp B/P (MAP) Pulse Ox O2 Delivery O2 Flow Rate FiO2 08/30/19 09:00 Room Air 08/30/19 08:00 98.1 86 18 136/78 (97) 97 Laboratory Tests Test 08/29/19 15:50 Sodium Level 137 MMOL/L (136-145) Potassium Level 3.5 MMOL/L (3.5-5.1) Chloride Level 98 MMOL/L (98-107) Carbon Dioxide Level 28 MMOL/L (21-32) Anion Gap 11 mmol/L (5-15) Blood Urea Nitrogen 14 mg/dL (7-18) Creatinine 1.3 MG/DL (0.55-1.30) Estimat Glomerular Filtration Rate 56.7 mL/min (>60) Glucose Level 96 MG/DL (74-106) Calcium Level 8.8 MG/DL (8.5-10.1) Phosphorus Level 3.1 MG/DL (2.5-4.9) Magnesium Level 1.4 MG/DL (1.8-2.4) L Intake and Output 08/29/19 08/30/19 19:00 07:00 Output Total 600 ml 400 ml Balance -600 ml -400 ml Output Urine Total 600 ml 400 ml Stool Total 0 ml # Voids 1 Objective General Appearance: no apparent distress, other - in restraints EENT: PERRL/EOMI Cardiovascular: normal rate, regular rhythm Respiratory/Chest: lungs clear, normal breath sounds Abdomen: soft, [place] bag Genitourinary/Rectal: other Extremities: normal range of motion 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 Discharge Planning. Continue Doxycylcine and Ertapenem per ID and Cx. DVT ppx. Diet as tolerated. D/C to SNF 08/29: AB course has been completed. Patient is a placement issue. No need for daily labs Beatrice Ferrera D.O. Aug 30, 2019 11:13
[2019-08-30 11:54] VITALS: BP 138/74
--- NOTE | 2019-08-30 13:08 | Nephrology Progress Note ---
Assessment/Plan Plan #Maxwell - likely due to vancomycin toxicity #sepsis due to UTI #Hyponatremia #hypomagnesemia #history for femur amputation #Left leg pain #Hx Left leg amputation #Paraplegia #Sacral decub ulcer #anemia - Cr downtrending - check renal US-> IMPRESSION: Mildly echogenic right kidney. This is nonspecific but may suggest renal parenchymal disease. No hydronephrosis. - placed donohue - Dc ivf - replete lytes - DC midodrine to 5mg TID - DC VANCO - antibiotics per D - follow urine cx - monitor mag, phos, BMP daily - surgery eval - pain control - monitor WBC - monitor UOP - avoid nephrotoxins Time spent 70 minutes, greater than 50% on care coordination and counseling Subjective ROS Limited/Unobtainable: No Subjective Cr downtrending Dced vanco check renal US-> IMPRESSION: Mildly echogenic right kidney. This is nonspecific but may suggest renal parenchymal disease. No hydronephrosis. Objective Objective Last 24 Hour Vital Signs Date Time Temp Pulse Resp B/P (MAP) Pulse Ox O2 Delivery O2 Flow Rate FiO2 08/30/19 11:54 98.1 82 18 138/74 (95) 97 08/30/19 09:00 Room Air 08/30/19 08:00 98.1 86 18 136/78 (97) 97 08/30/19 04:00 98.2 81 19 124/83 (97) 96 08/30/19 00:00 98.0 98 20 123/50 (74) 95 08/29/19 21:00 Room Air 08/29/19 20:00 97.9 101 20 136/53 (80) 95 08/29/19 16:00 98.4 72 18 138/75 (96) 95 Intake and Output 08/29/19 08/30/19 19:00 07:00 Output Total 600 ml 400 ml Balance -600 ml -400 ml Output Urine Total 600 ml 400 ml Stool Total 0 ml # Voids 1 Laboratory Tests 08/29/19 15:50: Sodium Level 137, Potassium Level 3.5, Chloride Level 98, Carbon Dioxide Level 28, Anion Gap 11, Blood Urea Nitrogen 14, Creatinine 1.3, Estimat Glomerular Filtration Rate 56.7, Glucose Level 96, Calcium Level 8.8, Phosphorus Level 3.1 , Magnesium Level 1.4L Height (Feet): 5 Height (Inches): 7.00 Weight (Pounds): 137 Sienna Georges M.D. Aug 30, 2019 13:08
--- NOTE | 2019-08-30 13:33 | Surgery Progress Note ---
Surgery Progress Note Subjective Symptoms: improved, tolerating diet, voiding well, passing flatus, BM Objective Last 24 Hour Vital Signs Date Time Temp Pulse Resp B/P (MAP) Pulse Ox O2 Delivery O2 Flow Rate FiO2 08/30/19 11:54 98.1 82 18 138/74 (95) 97 08/30/19 09:00 Room Air 08/30/19 08:00 98.1 86 18 136/78 (97) 97 08/30/19 04:00 98.2 81 19 124/83 (97) 96 08/30/19 00:00 98.0 98 20 123/50 (74) 95 08/29/19 21:00 Room Air 08/29/19 20:00 97.9 101 20 136/53 (80) 95 08/29/19 16:00 98.4 72 18 138/75 (96) 95 I&O Intake and Output 08/29/19 08/30/19 19:00 07:00 Output Total 600 ml 400 ml Balance -600 ml -400 ml Output Urine Total 600 ml 400 ml Stool Total 0 ml # Voids 1 Dressing: saturated Cardiovascular: RSR Respiratory: clear, decreased breath sounds Abdomen: non-tender, present bowel sounds Extremities: no edema, no tenderness, no cyanosis, other Laboratory Tests Test 08/29/19 15:50 Sodium Level 137 MMOL/L (136-145) Potassium Level 3.5 MMOL/L (3.5-5.1) Chloride Level 98 MMOL/L (98-107) Carbon Dioxide Level 28 MMOL/L (21-32) Anion Gap 11 mmol/L (5-15) Blood Urea Nitrogen 14 mg/dL (7-18) Creatinine 1.3 MG/DL (0.55-1.30) Estimat Glomerular Filtration Rate 56.7 mL/min (>60) Glucose Level 96 MG/DL (74-106) Calcium Level 8.8 MG/DL (8.5-10.1) Phosphorus Level 3.1 MG/DL (2.5-4.9) Magnesium Level 1.4 MG/DL (1.8-2.4) L Plan Problems: (1) Left leg pain Assessment & Plan: Patient presented admission complaining of left leg pain. On evaluation there is deformity left lower extremity plain films reviewed and obvious deformity noted as the femoral proximal is dislocated from the shaft. Patient is nonambulatory at baseline per report. He is somewhat cooperative examined with exam but a poor historian. Multiple skin concerns identified. Pt presented on admission with multiple Pressure Injuries, Bilat foot drop. Historical scar noted to L Hip Large Full Thickness Pressure Injury Buttocks with undermining and tunneling. Wound has irregular borders extends from Sacrum to L ischium and base of Scrotum,laterally from Outer R to Outer L gluteus.(L)18.9cm x (W)18.5cm x (D) 3.7cm, undermining clockwise 10-3 by 5.9cm @3o'clock,Tunneling clockwise @6o' clock by 2.7cm.Scattered Biofilm with [place] granulation at base of wound ,bone is palpable in tunneled and undermined areas. At distal base of wound, at scrotum is an area of slough-size of Quarter. Small amt non-odorous serous exudate.Periwound is pink with scattered brownish skin tone.( Full thickness Pressure injury R Ischium(L)9.5cm x (W)9.7cm x (D)4.2cm, Tunneling clockwise into perineum at 7o'clock by 5.3cm. Base of wound has scattered slough. Bone is palpable . Small amt seropurulent exudate. Mild odor which resolved post cleansing of wound.Erythema noted along edges. Additional area of slough noted periwound along borders clockwise @3-4o'clock. Non-Blanching erythema noted to Protruding bony prominence L Hip. Dry, loosening eschar lateral L tibia. (L)1.1cm x (W)0.4cm.[place] epithelial along borders. Stable dry, brown eschar noted to medial L tibia(L)4.3cm x (W)1cm. Stable dry eschar noted to Plantar L Heel. (L)4.5cm x (W)2cm. Periwound is boggy but blanchable.Historical scar alson noted periwound. Full thickness pressure injury Plantar R Heel (L)1.2cm x (W)2.5cm x (D)0.2cm. 80 % pink granulation,20% slough at base of wound. Edges are macerated. Small amt non-odorous serous exudate. Periwound is boggy but blanchable. Tx.Plan: Cleanse wound Buttocks with Saline. Loosely Pack wound including undermined areas with Hydrogel impregnated Kerlix.Apply Moisture Barrier Paste along borders. Cover with ABD Pads and secure with Tegaderm Daily and prn. Cleanse R Ischial Wound with Saline. Loosely pack with Hydrogel Impregnated Kerlix. Apply Moisture Barrier Periwound. Cover with ABD Pad and secure with Tegaderm Daily and prn. Apply Cavilon Skin Barrier to L Hip Bony Protrusion (Do Not Rub/ Massage area). Cover with Optifoam drsg. Change every 3 days and prn. Apply Betadine to Medial and lateral L Tibial wounds. Cover with Optifoam drsg every 3 days and prn. Apply Betadine to Plantar L Heel wound. Cover with Optifoam drsg. Change every 3 days and prn. Apply Betadine to Plantar R heel wound. Cover with Optifoam drsg every 3 days and prn. Reposition at least every 2hours or as tolerated. Place pillow between knees. Off-Load Heels with Pillow. APM/SUMI Mattress overlay. (2) Femur fracture Assessment & Plan: There is an old amputation defect across the mid femoral shaft. The mid to distal femur is unremarkable with normal articulation at the knee. The proximal femur including the femoral head is not visualized likely resected. There is deformity of the left hip/acetabulum likely posttraumatic. Adjacent heterotopic ossification noted. Surrounding soft tissue is normal. 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 can be done ioutpatient as this is chronic ostomy prolapse stable loop and functional (3) Urinary tract infection (4) Sacral decubitus ulcer Assessment & Plan: Patient with a prolapsed loop ostomy identified. Still functional viable reducible. outpt follow up for revision (5) Paraplegia (6) Ileostomy prolapse Assessment & Plan: loop ileostomy prolapse noted. distal limb prolapsed proximal mild with gas and stool output. reducible easily at bedside but prolapse easily no n/v/f/c functional recommend elective repair Cornelius Salgado Aug 30, 2019 13:33
--- NOTE | 2019-08-30 14:53 | NUR ---
*-*DISCHARGE PLANNING*-* PATIENT HAS BEEN REFERRED TO: [facility] P: [phone] [facility] P: [phone] [facility] P: [phone] [facility] P: [phone] [facility] P: [phone] [facility] P: [phone] [place] [facility] P: [phone] [facility] P: [phone] [facility] P: [phone] [facility] P: [phone] Addendum: 08/30/19 at 1651 by NOVA PABLO CM *-*DISCHARGE PLANNING*-* PATIENT HAS BEEN REFERRED TO: [facility] P: [phone] S/W WILLIE, WILL CALL BACK TOMORROW 08/31/2019, IF A MALE BED IS AVAILABLE [facility] P: [phone] S/W AMY, CAN NOT ACCEPT, NOT COVERED WITH THIS PATIENTS INSURANCE [facility] P: [phone] S/W PEEWEE, NO BEDS AVAILABLE [facility] P: [phone] S/W JAGDEEP, ADMISSIONS GONE FOR THE DAY. [facility] P: [phone] S/W ANDREY LOCK DOWN, DUE TO COVID [facility] P: [phone] S/W GEOFFREY RIVAS, DUE TO PATIENT AMA FROM THEIR FACILITY. [place] P: [phone] S/W MADDI, WILL CALL BACK TOMORROW 08/31/2019 IF MALE BED AVAILABLE. [facility] P: [phone] S/W TANNA, ONLY ACCEPTING POSITIVE COVID PATIENTS [facility] P: [phone] S/W ANGIE, ADMISSION GONE FOR THE DAY [facility] P: [phone] S/W MITZI, ADMISSIONS GONE FOR THE DAY.
--- NOTE | 2019-08-30 15:13 | Infectious Diseases Prog Note ---
Assessment/Plan Assessment/Plan ASSESSMENT AND PLAN: 1. 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 endocarditis, ? mrsa/ proteus sacral wound infection, sepsis, leukocytosis, fevers, mrsa colonization, ARF - s/p ertapenem and doxycycline po - surveillance blood cultures - negative - wound care per surgery - monitor labs - TTE without vegetations - leukocytosis resolved 2. Paraplegia. 3. Chronic catheter. 4. Sacral wound. 5. Anemia. 6. No history of diabetes or hypertension. 7. Pain management per primary care team. 8. No known allergies. 9. Social history is negative. 10. Family history is contributory. 11. MAR was noted. 12. Case discussed with RN. Subjective Constitutional: Denies: fever HEENT: Denies: congestion Cardiovascular: Denies: chest pain Gastrointestinal/Abdominal: Denies: vomiting, diarrhea Genitourinary: Denies: dysuria Neurologic: Denies: headache Psychiatric: Denies: depression Skin: Denies: rash Hematologic: Denies: bleeding Musculoskeletal: Denies: pain Allergies: Coded Allergies: No Known Allergies (Unverified , 08/15/19) Objective Vital Signs Last 24 Hour Vital Signs Date Time Temp Pulse Resp B/P (MAP) Pulse Ox O2 Delivery O2 Flow Rate FiO2 08/30/19 11:54 98.1 82 18 138/74 (95) 97 08/30/19 09:00 Room Air 08/30/19 08:00 98.1 86 18 136/78 (97) 97 08/30/19 04:00 98.2 81 19 124/83 (97) 96 08/30/19 00:00 98.0 98 20 123/50 (74) 95 08/29/19 21:00 Room Air 08/29/19 20:00 97.9 101 20 136/53 (80) 95 08/29/19 16:00 98.4 72 18 138/75 (96) 95 Height (Feet): 5 Height (Inches): 7.00 Weight (Pounds): 137 General Appearance: no acute distress HEENT: normocephalic, atraumatic, anicteric, mucous membranes moist Respiratory/Chest: lungs clear, normal breath sounds, no respiratory distress, no accessory muscle use Cardiovascular: normal rate, regular rhythm, no gallop/murmur Abdomen: normal bowel sounds, soft, non tender, no organomegaly, no mass Genitourinary: other - no donohue Extremities: no cyanosis Skin: no rash 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 FINDINGS: A single one view chest is obtained. Vascularity is normal. The lung hess are clear bilaterally. Cardiac and mediastinal silhouette are within normal limits. CP angles are sharp. The bony thorax appear unremarkable. IMPRESSION: NO ACUTE CARDIOPULMONARY DISEASE. Microbiology Date/Time Source Procedure Growth Status 08/18/19 16:45 Blood Blood Culture - Final NO GROWTH AFTER 5 DAYS Complete 08/15/19 18:50 Nasopharynx Coronavirus COVID-19 PCR (GENE) - Final Complete 08/19/19 15:14 Urine,Clean Catch Urine Culture - Final NO GROWTH AFTER 48 HOURS Complete 08/16/19 18:20 Sacral Wound Gram Stain - Final Complete 08/16/19 18:20 Wound Culture - Final Staphylococcus Aureus - Mrsa Proteus Mirabilis Complete Labs Test 08/28/19 10:30 08/29/19 15:50 White Blood Count 8.5 K/UL (4.8-10.8) Red Blood Count 3.93 M/UL (4.70-6.10) Hemoglobin 9.8 G/DL (14.2-18.0) Hematocrit 32.5 % (42.0-52.0) Mean Corpuscular Volume 83 FL (80-99) Mean Corpuscular Hemoglobin 24.9 PG (27.0-31.0) Mean Corpuscular Hemoglobin Concent 30.1 G/DL (32.0-36.0) Red Cell Distribution Width 18.6 % (11.6-14.8) Platelet Count 364 K/UL (150-450) Mean Platelet Volume 4.9 FL (6.5-10.1) Neutrophils (%) (Auto) 70.5 % (45.0-75.0) Lymphocytes (%) (Auto) 19.4 % (20.0-45.0) Monocytes (%) (Auto) 8.6 % (1.0-10.0) Eosinophils (%) (Auto) 0.4 % (0.0-3.0) Basophils (%) (Auto) 1.1 % (0.0-2.0) Sodium Level 137 MMOL/L (136-145) 137 MMOL/L (136-145) Potassium Level 3.2 MMOL/L (3.5-5.1) 3.5 MMOL/L (3.5-5.1) Chloride Level 98 MMOL/L (98-107) 98 MMOL/L (98-107) Carbon Dioxide Level 30 MMOL/L (21-32) 28 MMOL/L (21-32) Anion Gap 9 mmol/L (5-15) 11 mmol/L (5-15) Blood Urea Nitrogen 14 mg/dL (7-18) 14 mg/dL (7-18) Creatinine 1.3 MG/DL (0.55-1.30) 1.3 MG/DL (0.55-1.30) Estimat Glomerular Filtration Rate 56.7 mL/min (>60) 56.7 mL/min (>60) Glucose Level 102 MG/DL (74-106) 96 MG/DL (74-106) Calcium Level 8.7 MG/DL (8.5-10.1) 8.8 MG/DL (8.5-10.1) Phosphorus Level 2.9 MG/DL (2.5-4.9) 3.1 MG/DL (2.5-4.9) Magnesium Level 1.3 MG/DL (1.8-2.4) 1.4 MG/DL (1.8-2.4) Total Bilirubin 0.6 MG/DL (0.2-1.0) Aspartate Amino Transf (AST/SGOT) 15 U/L (15-37) Alanine Aminotransferase (ALT/SGPT) 7 U/L (12-78) Alkaline Phosphatase 146 U/L (46-116) Total Protein 7.3 G/DL (6.4-8.2) Albumin 2.5 G/DL (3.4-5.0) Globulin 4.8 g/dL Albumin/Globulin Ratio 0.5 (1.0-2.7) Laboratory Tests Test 08/29/19 15:50 Sodium Level 137 MMOL/L (136-145) Potassium Level 3.5 MMOL/L (3.5-5.1) Chloride Level 98 MMOL/L (98-107) Carbon Dioxide Level 28 MMOL/L (21-32) Anion Gap 11 mmol/L (5-15) Blood Urea Nitrogen 14 mg/dL (7-18) Creatinine 1.3 MG/DL (0.55-1.30) Estimat Glomerular Filtration Rate 56.7 mL/min (>60) Glucose Level 96 MG/DL (74-106) Calcium Level 8.8 MG/DL (8.5-10.1) Phosphorus Level 3.1 MG/DL (2.5-4.9) Magnesium Level 1.4 MG/DL (1.8-2.4) L Current Medications Medications (Trade) Dose Ordered Sig/Mya Route PRN Reason Start Time Stop Time Status Last Admin Dose Admin Acetaminophen (Tylenol) 650 mg Q6H PRN ORAL Temp >100.5 08/16/19 00:45 09/15/19 00:44 08/27/19 16:22 Heparin Sodium (Porcine) (Heparin 5000 units/ml) 5,000 units EVERY 12 HOURS SUBQ 08/16/19 09:00 09/30/19 08:59 08/30/19 08:15 Sharif Painting MD Aug 30, 2019 15:13
[2019-08-30 16:00] VITALS: BP 129/72
--- NOTE | 2019-08-30 18:58 | NUR ---
HAND-OFF: Report given to Ed.
--- NOTE | 2019-08-30 19:00 | NUR ---
NURSE NOTES: Report received from Kyra WINTERS. Patient is awake and alert x 1. Patient is in semi fowlers position in bed. Patient noted to be on room air. Does not appear to be in respiratory distress at this time. Pulses present, no edema noted, patient able to move extremities. Patient noted to have right forearm 24 gian IV access, saline lock. Patient noted to have colostomy on left lower quadrant with minimal drainage. Endorsed to Ed AGRAWAL that colostomy does not produce a lot of stool. Wound care endorsed to Ed AGRAWAL. Bed locked, alarmed, in lowest position. Will continue to follow plan of care.
[2019-08-30 20:00] VITALS: BP 126/76
[2019-08-31] VITALS: BP 138/78
[2019-08-31 04:00] VITALS: BP 121/75
--- NOTE | 2019-08-31 07:19 | NUR ---
HAND-OFF: Report given to Noe AGRAWAL. Endorsed that patient is in restraints. Endorsed wound care. Patient in stable condition.
--- NOTE | 2019-08-31 07:24 | NUR ---
NURSE NOTES: Patient received in bed is AAO x 1. Patient is in semi fowlers position in bed. On room air. Does not appear to be in respiratory distress at this time. No edema noted, patient able to move extremities. Patient noted to have right forearm 24 gina IV access, saline lock. Patient noted to have colostomy on left lower quadrant with minimal drainage. Bed locked, alarmed, in lowest position. Will continue to follow plan of care
[2019-08-31 08:00] VITALS: BP 109/68
[2019-08-31] MEDS: Heparin 5000 units/ml inj SUBQ SCH ×2 (08:12→20:45)
--- NOTE | 2019-08-31 08:15 | NUR ---
NURSE NOTES: PT RESTING IN BED, IN NO APPARENT DISTRESS AT THIS TIME. PT ON BILATERAL SOFT WRIST RESTRAINTS. BILATERAL RADIAL PULSES PALPABLE. SKIN ON RESTRAINT AREA INTACT, NO SWELLING PRESENT. PT IS CALM AT THIS TIME. PT WAS ENCOURAGED TO EAT. PT ATE 25%OF BREAKFAST AND 240CC OF FLUIDS. PT WAS REPOSITIONED AND WHEN RELEASED FROM RESTRAINTS, PT ATTEMPTED TO PULL ON CHAVEZ CATH. PT WAS REPOSITIONED AND PLACED BACK ON BILATERAL SOFT WRIST RESTRAINTS. CHAVEZ CATH ANCHORED TO THIGH, DRAINING YELLOW URINE BY GRAVITY. IN NO APPARENT DISTRESS. PT PLACED IN SEMI-SOUZA'S POSITION WITH BEDSIDE RAILS X3 RAISED. BED ALARM ON. WILL CONTINUE TO MONITOR.
--- NOTE | 2019-08-31 10:01 | NUR ---
*-*DISCHARGE PLANNING*-* PATIENT HAS BEEN REFERRED TO: [facility] P: [phone] S/W WILLIE, ADMISSIONS NOT IN YET. [facility] P: [phone] S/W AMY, CAN NOT ACCEPT, NOT COVERED WITH THIS PATIENTS INSURANCE [facility] P: [phone] S/W PEEWEE, NO BEDS AVAILABLE [facility] P: [phone] S/W ARIELLE, NOT ACCEPTING ANY ADMISSIONS ON LOCK DOWN, DUE TO COVID. [facility] P: [phone] S/W ANDREY, LOCK DOWN, DUE TO COVID [facility] P: [phone] S/W GEOFFREY RIVAS DECLINED, DUE TO PATIENT AMA FROM THEIR FACILITY. [facility] P: [phone] S/W ALMAS, ADMISSIONS IN A MEETING. [facility] P: [phone] S/W TANNA, ONLY ACCEPTING POSITIVE COVID PATIENTS [facility] P: [phone] S/W KELSEY, ADMISSIONS IN A MEETING. [facility] P: [phone] S/W BHAVANA, ADMISSIONS IN A MEETING. Addendum: 08/31/19 at 1346 by NOVA PABLO CM *-*DISCHARGE PLANNING*-* PATIENT HAS BEEN REFERRED TO: [facility] P: [phone] S/W LOGAN, CALL BACK IN 30 MINS [facility] P: [phone] S/W AMY, CAN NOT ACCEPT, NOT COVERED WITH THIS PATIENTS INSURANCE [facility] P: [phone] S/W CHI, NO BEDS AVAILABLE [facility] P: [phone] S/W ARIELLE, NOT ACCEPTING ANY ADMISSIONS ON LOCK DOWN, DUE TO COVID. [facility] P: [phone] S/W ANDREY, LOCK DOWN, DUE TO COVID [facility] P: [phone] S/W GEOFFREY RIVAS DECLINED, DUE TO PATIENT AMA FROM THEIR FACILITY. [facility] P: [phone] S/W ALMAS, REFAX [facility] P: [phone] S/W TANNA, ONLY ACCEPTING POSITIVE COVID PATIENTS [facility] P: [phone] S/W KELSEY, ADMISSIONS NOT IN TODAY [facility] P: [phone] S/W YANNICK, NOT ACCEPTING ANY NEW PATIENTS
--- NOTE | 2019-08-31 10:08 | NUR ---
*-*DISCHARGE PLANNING*-* PATIENT HAS BEEN REFERRED TO: [facility] P:[phone] [facility] P: [phone] [facility] P: [phone] [facility] P: [phone]
--- NOTE | 2019-08-31 10:52 | NUR ---
*-*DISCHARGE PLANNING*-* PATIENT HAS BEEN REFERRED TO: [facility] P: [phone] [facility] P: [phone] [facility] P: [phone] [facility] P: [phone] [facility] P: [phone] [facility] P: [phone] [facility] P: [facility] P: [phone] [facility] P: [phone] [facility] P: [phone]
--- NOTE | 2019-08-31 11:38 | Internal Med Progress Note ---
Subjective Date of Service: Aug 31, 2019 Physician Name Beatrice Ferrera Attending Physician Thalia Marx MD Current Medications Medications (Trade) Dose Ordered Sig/Mya Route PRN Reason Start Time Stop Time Status Last Admin Dose Admin Acetaminophen (Tylenol) 650 mg Q6H PRN ORAL Temp >100.5 08/16/19 00:45 09/15/19 00:44 08/27/19 16:22 Heparin Sodium (Porcine) (Heparin 5000 units/ml) 5,000 units EVERY 12 HOURS SUBQ 08/16/19 09:00 09/30/19 08:59 08/31/19 08:12 Allergies: Coded Allergies: No Known Allergies (Unverified , 08/15/19) Subjective No acute events. Vitals stable. Patient is a placement issue. No need for daily labs. Objective Last Vital Signs Date Time Temp Pulse Resp B/P (MAP) Pulse Ox O2 Delivery O2 Flow Rate FiO2 08/31/19 09:00 Room Air 08/31/19 08:00 97.9 77 16 109/68 (82) 93 Intake and Output 08/30/19 08/31/19 19:00 07:00 Intake Total 480 ml Output Total 600 ml 250 ml Balance -120 ml -250 ml Intake Oral 480 ml Output Urine Total 600 ml 200 ml Stool Total 50 ml # Bowel Movements 1 1 Objective General Appearance: no apparent distress, other - in restraints EENT: PERRL/EOMI Cardiovascular: normal rate, regular rhythm Respiratory/Chest: lungs clear, normal breath sounds Abdomen: soft, [place] bag Genitourinary/Rectal: other Extremities: normal range of motion Neurologic: 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 Discharge Planning. Continue Doxycylcine and Ertapenem per ID and Cx. DVT ppx. Diet as tolerated. D/C to SNF 08/29: AB course has been completed. Patient is a placement issue. No need for daily labs 08/30: Placement Beatrice Ferrera D.O. Aug 31, 2019 11:38
[2019-08-31 12:00] VITALS: BP 115/63
--- NOTE | 2019-08-31 13:29 | NUR ---
*-*DISCHARGE PLANNING*-* PATIENT HAS BEEN REFERRED TO: [facility] P: [phone] S/W LESLIE, PATIENT TOO YOUNG [facility] P: [phone] S/W DARIANA, NO BEDS [facility] P: [phone] S/W ONEIL, NOTE ACCEPTING NEW ADMISSION [facility] P: [phone] S/W SHARON, NOT ACCEPTING ANY ADMISSION, [facility] P: [phone] S/W DIMA, NOT ACCEPTING ANY PATIENTS DUE TO [facility] P: [phone] S/W YANNICK, NO MALE BEDS [facility] P: S/W GEE, NO MALE BEDS AVAILABLE [facility] P: [phone] S/W ALFREDO, NO BEDS AVAILABLE [facility] P: [phone] S/W DEE DEE, NO BEDS AVAILABLE [facility] P: [phone] S/W ZION, NOT ACCEPTING.
--- NOTE | 2019-08-31 13:42 | Nephrology Progress Note ---
Assessment/Plan Plan #Maxwell - likely due to vancomycin toxicity #sepsis due to UTI #Hyponatremia #hypomagnesemia #history for femur amputation #Left leg pain #Hx Left leg amputation #Paraplegia #Sacral decub ulcer #anemia - Cr downtrending - check renal US-> IMPRESSION: Mildly echogenic right kidney. This is nonspecific but may suggest renal parenchymal disease. No hydronephrosis. - placed donohue - Dc ivf - replete lytes - DC midodrine to 5mg TID - DC VANCO - antibiotics per D - follow urine cx - monitor mag, phos, BMP daily - surgery eval - pain control - monitor WBC - monitor UOP - avoid nephrotoxins Time spent 70 minutes, greater than 50% on care coordination and counseling Subjective ROS Limited/Unobtainable: Yes Subjective Cr downtrending Dced vanco check renal US-> IMPRESSION: Mildly echogenic right kidney. This is nonspecific but may suggest renal parenchymal disease. No hydronephrosis. Objective Objective Last 24 Hour Vital Signs Date Time Temp Pulse Resp B/P (MAP) Pulse Ox O2 Delivery O2 Flow Rate FiO2 08/31/19 12:00 97.9 76 17 115/63 (80) 100 08/31/19 09:00 Room Air 08/31/19 08:00 97.9 77 16 109/68 (82) 93 08/31/19 04:00 97.8 70 20 121/75 (90) 97 08/31/19 00:00 98.3 72 20 138/78 (98) 95 08/30/19 21:00 Room Air 08/30/19 20:00 98.1 80 18 126/76 (93) 95 08/30/19 16:00 98.2 85 18 129/72 (91) 97 Intake and Output 08/30/19 08/31/19 19:00 07:00 Intake Total 480 ml Output Total 600 ml 250 ml Balance -120 ml -250 ml Intake Oral 480 ml Output Urine Total 600 ml 200 ml Stool Total 50 ml # Bowel Movements 1 1 Height (Feet): 5 Height (Inches): 7.00 Weight (Pounds): 137 Sienna Georges M.D. Aug 31, 2019 13:42
--- NOTE | 2019-08-31 13:55 | NUR ---
CASE MANAGEMENT:REVIEW SI;SEPSIS. GRAM NEG BACILLI UTI. SEAN. 98.3 77 20 138/78 93% ON RA IS;HEPARIN SUBQ Q12 DCP;PATIENT IS FROM [facility] UNABLE TO RETURN D/T HMO TERMINATION NOW ON REG MEDI-CINDY PATIENT HAS BEEN REFERRED TO THE FOLLOWING SNF; [facility]
--- NOTE | 2019-08-31 15:17 | Surgery Progress Note ---
Surgery Progress Note Subjective Additional Comments no acute events labs reviewed exam stable Objective Last 24 Hour Vital Signs Date Time Temp Pulse Resp B/P (MAP) Pulse Ox O2 Delivery O2 Flow Rate FiO2 08/31/19 12:00 97.9 76 17 115/63 (80) 100 08/31/19 09:00 Room Air 08/31/19 08:00 97.9 77 16 109/68 (82) 93 08/31/19 04:00 97.8 70 20 121/75 (90) 97 08/31/19 00:00 98.3 72 20 138/78 (98) 95 08/30/19 21:00 Room Air 08/30/19 20:00 98.1 80 18 126/76 (93) 95 08/30/19 16:00 98.2 85 18 129/72 (91) 97 I&O Intake and Output 08/30/19 08/31/19 19:00 07:00 Intake Total 480 ml Output Total 600 ml 250 ml Balance -120 ml -250 ml Intake Oral 480 ml Output Urine Total 600 ml 200 ml Stool Total 50 ml # Bowel Movements 1 1 Dressing: other Wound: other Drains: other Cardiovascular: RSR Respiratory: decreased breath sounds Abdomen: soft, present bowel sounds Extremities: edema, no cyanosis, other Plan Problems: (1) Left leg pain Assessment & Plan: Patient presented admission complaining of left leg pain. On evaluation there is deformity left lower extremity plain films reviewed and obvious deformity noted as the femoral proximal is dislocated from the shaft. Patient is nonambulatory at baseline per report. He is somewhat cooperative examined with exam but a poor historian. Multiple skin concerns identified. Pt presented on admission with multiple Pressure Injuries, Bilat foot drop. Historical scar noted to L Hip Large Full Thickness Pressure Injury Buttocks with undermining and tunneling. Wound has irregular borders extends from Sacrum to L ischium and base of Scrotum,laterally from Outer R to Outer L gluteus.(L)18.9cm x (W)18.5cm x (D) 3.7cm, undermining clockwise 10-3 by 5.9cm @3o'clock,Tunneling clockwise @6o' clock by 2.7cm.Scattered Biofilm with Seagraves granulation at base of wound ,bone is palpable in tunneled and undermined areas. At distal base of wound, at scrotum is an area of slough-size of Quarter. Small amt non-odorous serous exudate.Periwound is pink with scattered brownish skin tone.( Full thickness Pressure injury R Ischium(L)9.5cm x (W)9.7cm x (D)4.2cm, Tunneling clockwise into perineum at 7o'clock by 5.3cm. Base of wound has scattered slough. Bone is palpable . Small amt seropurulent exudate. Mild odor which resolved post cleansing of wound.Erythema noted along edges. Additional area of slough noted periwound along borders clockwise @3-4o'clock. Non-Blanching erythema noted to Protruding bony prominence L Hip. Dry, loosening eschar lateral L tibia. (L)1.1cm x (W)0.4cm.Seagraves epithelial along borders. Stable dry, brown eschar noted to medial L tibia(L)4.3cm x (W)1cm. Stable dry eschar noted to Plantar L Heel. (L)4.5cm x (W)2cm. Periwound is boggy but blanchable.Historical scar alson noted periwound. Full thickness pressure injury Plantar R Heel (L)1.2cm x (W)2.5cm x (D)0.2cm. 80 % pink granulation,20% slough at base of wound. Edges are macerated. Small amt non-odorous serous exudate. Periwound is boggy but blanchable. Tx.Plan: Cleanse wound Buttocks with Saline. Loosely Pack wound including undermined areas with Hydrogel impregnated Kerlix.Apply Moisture Barrier Paste along borders. Cover with ABD Pads and secure with Tegaderm Daily and prn. Cleanse R Ischial Wound with Saline. Loosely pack with Hydrogel Impregnated Kerlix. Apply Moisture Barrier Periwound. Cover with ABD Pad and secure with Tegaderm Daily and prn. Apply Cavilon Skin Barrier to L Hip Bony Protrusion (Do Not Rub/ Massage area). Cover with Optifoam drsg. Change every 3 days and prn. Apply Betadine to Medial and lateral L Tibial wounds. Cover with Optifoam drsg every 3 days and prn. Apply Betadine to Plantar L Heel wound. Cover with Optifoam drsg. Change every 3 days and prn. Apply Betadine to Plantar R heel wound. Cover with Optifoam drsg every 3 days and prn. Reposition at least every 2hours or as tolerated. Place pillow between knees. Off-Load Heels with Pillow. APM/SUMI Mattress overlay. (2) Femur fracture Assessment & Plan: There is an old amputation defect across the mid femoral shaft. The mid to distal femur is unremarkable with normal articulation at the knee. The proximal femur including the femoral head is not visualized likely resected. There is deformity of the left hip/acetabulum likely posttraumatic. Adjacent heterotopic ossification noted. Surrounding soft tissue is normal. 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 can be done ioutpatient as this is chronic ostomy prolapse stable loop and functional (3) Urinary tract infection (4) Sacral decubitus ulcer Assessment & Plan: Patient with a prolapsed loop ostomy identified. Still functional viable reducible. outpt follow up for revision (5) Paraplegia (6) Ileostomy prolapse Assessment & Plan: loop ileostomy prolapse noted. distal limb prolapsed proximal mild with gas and stool output. reducible easily at bedside but prolapse easily no n/v/f/c functional recommend elective repair Cornelius Salgado Aug 31, 2019 15:17
--- NOTE | 2019-08-31 15:38 | NUR ---
*-*DISCHARGE PLANNING*-* PATIENT HAS BEEN REFERRED TO: [facility] P: [phone] [facility] P: [phone] [facility] P: [phone] [facility] P: [phone] [facility] P: [phone] [facility] P: [phone] [facility] P: [phone] [facility] P: [phone] [facility] P: [phone] [facility] P: [phone] Addendum: 08/31/19 at 1645 by NOVA PABLO CM *-*DISCHARGE PLANNING*-* PATIENT HAS BEEN REFERRED TO: [facility] P: [phone] S/W DIYA, NOT COVERED WITH PATIENTS INSURANCE [facility] P: [phone] FIDELIA, NO BEDS AVAILABLE [facility] P: [phone] S/W GLENROY, NO BEDS AVAILABLE [facility] P: [phone] S/W KATYA, WILL CALL BACK AFTER REVIEW [facility] P: [phone] S/W JUSTINE, ADMISSION IS WORKING FROM HOME GAVE NUMBER FOR RUSSEL IN ADMISSIONS, LEFT A VOICE MASSAGE. [facility] P: [phone] S/W ROBBIE, NOT ACCEPTING NEW PATIENTS, DUE TO COVID [facility] P: [phone] S/W KOLBY, NOT ACCEPTING NEW PATIENT [facility] P: [phone] S/W LANIE, NO BEDS AVAILABLE [facility] P: [phone] S/W LUCILA, NO [facility] BEDS AVAILABLE [facility] P: [phone] S/W MELBA, RE-FAX
[2019-08-31 16:00] VITALS: BP 100/65
--- NOTE | 2019-08-31 16:49 | NUR ---
NURSE NOTES: RN DURING HOURLY ROUNDS FOUND PATIENT TRYING TO UNDO RESTRAINTS. RN REINFORCED RESTRAINT AND TOLD PATIENT TO BE CALM AND DONT TRY TO UNDO RESTRAINTS
--- NOTE | 2019-08-31 17:46 | NUR ---
NURSE NOTES: COLOSTOMY BAG CHANGED
--- NOTE | 2019-08-31 19:20 | NUR ---
NURSE NOTES: Received pt. awake, alert and verbally responsive in bed, with elvira. soft wrist restraints applied, properly secured and checked circulation. Denies any pain at this time, calm and conversant to staff. Bed in lowest position and locked. With donohue draining to a light curt color urine, small in amount, with colostomy in placed and intact. On continued isolation, observed. Call light within reach.
--- NOTE | 2019-08-31 19:34 | NUR ---
HAND-OFF: Report given to Ryan CHOUDHARY RN.
[2019-08-31 20:00] VITALS: BP 101/64
[2019-09-01] VITALS: BP 112/68
[2019-09-01 04:00] VITALS: BP 115/64
--- NOTE | 2019-09-01 05:25 | NUR ---
NURSE NOTES: Wound dressing changed on buttocks area, kept clean and intact, dry. With colostomy, no output noted tonight. Turned and repositioned q2h.
--- NOTE | 2019-09-01 07:25 | NUR ---
HAND-OFF: Report given to Ruthann AGRAWAL..
[2019-09-01 08:00] VITALS: BP 113/72
--- NOTE | 2019-09-01 08:09 | NUR ---
NURSE NOTES: Report received from TANJA Kleley. Patient seen on rounds, AxOx1, not in distress, on room air. No outward sx of pain. PIV on left forearm patent and intact. Colostomy bag and donohue cath secured and draining. Wound dressing and optifoam dressings intact. Noted bilateral wrist restraints, good circulation and pulses papable. Bed low and locked, siderails up x2, zone alarms on 1, will continue to monitor.
[2019-09-01] MEDS: Heparin 5000 units/ml inj SUBQ SCH ×2 (08:41→21:31)
--- NOTE | 2019-09-01 10:15 | NUR ---
RD ASSESSMENT & RECOMMENDATIONS SEE CARE ACTIVITY FOR COMPLETE ASSESSMENT DAILY ESTIMATED NEEDS: Needs based on Advanced wounds/ 54kg 30-35 kcals/kg 0211-7576 total kcals 1.5-2.0 g protein/kg 81-108 g total protein 25-30 mL/kg 0059-8581 total fluid mLs NUTRITION DIAGNOSIS: Increased kcal/prot/micronutrients needs R/T wound healing as evidenced by pt admitted w/ advanced wounds, including full thickness wounds @ buttocks, R ischium (tunneling, bone palpable), and plantar R Heel, now w/ improving Po intake. CURRENT DIET:REGULAR, mech soft ground PO DIET RECOMMENDATIONS: REGULAR, texture as tolerated or per [employer] + Ensure Enlive TID w/ meals ENTERAL NUTRITION RECOMMENDATIONS: CONSULT RD IF NONORAL FEEDING IS INDICATED -> initially w/ mostly refusing meals for extended period of time, now w/ improving PO intake, monitor PO intake closely. ADDITIONAL RECOMMENDATIONS: * Per SNF: HT=66" KR=854ipw (as of 08/14/19) -> vs curren est CBW =96lbs (bedscale wt 55kg - wt of p200 adryan+pump) * Rec Kcal Count x 48 hrs to ensure nutritional needs are met * Monitor for continued improving PO intake * Add appetite stimulant * Added 8oz whole milk TID (180kcal/8g prot each) + Ensure Enlive TID (350kcal/20g prot) * Wound healing: add MVI w/ mineral 1 tab QD, Vit C 500mg BID ZnSO4 220mg QD x 10 days Amari 1pkt BID as tolerated
--- NOTE | 2019-09-01 11:17 | NUR ---
*-*DISCHARGE PLANNING*-* PATIENT HAS BEEN REFERRED TO: [facility] P: [phone] S/W DIYA, NOT COVERED WITH PATIENTS INSURANCE [facility] P: [phone] FIDELIA, NO BEDS AVAILABLE [facility] P: [phone] S/W GLENROY, NO BEDS AVAILABLE [facility] P: [phone] S/W GERALDINE, NOT TAKING MEDICAL PATIENTS [facility] P: [phone] S/W DAVIE, NOT ACCEPTING ANY NEW PATIENTS [facility] P: [phone] S/W ROBBIE, NOT ACCEPTING NEW PATIENTS, DUE TO COVID [facility] P: [phone] S/W KOLBY, NOT ACCEPTING NEW PATIENT [facility] P: [phone] S/W LANIE, NO BEDS AVAILABLE [facility] P: [phone] S/W LUCILA, NO MCC BEDS AVAILABLE [facility] P: [phone] S/W MELBA, NOT ACCEPTING
--- NOTE | 2019-09-01 11:57 | Internal Med Progress Note ---
Subjective Date of Service: Sep 01, 2019 Physician Name Beatrice Ferrera Attending Physician Thalia Marx MD Current Medications Medications (Trade) Dose Ordered Sig/Mya Route PRN Reason Start Time Stop Time Status Last Admin Dose Admin Acetaminophen (Tylenol) 650 mg Q6H PRN ORAL Temp >100.5 08/16/19 00:45 09/15/19 00:44 08/27/19 16:22 Heparin Sodium (Porcine) (Heparin 5000 units/ml) 5,000 units EVERY 12 HOURS SUBQ 08/16/19 09:00 09/30/19 08:59 09/01/19 08:41 Allergies: Coded Allergies: No Known Allergies (Unverified , 08/15/19) Subjective No acute events. Vitals stable. Patient is a placement issue. Will obtain AM labs. Discussed with nursing staff need for continuous soft restraints. Unfortunately patient pulls at his donohue cath, which at this point is deemed necessary 2/2 Decubitus ulcers; Several attempts to remove restraints have resulted in patient pulling out donohue, etc. Objective Last Vital Signs Date Time Temp Pulse Resp B/P (MAP) Pulse Ox O2 Delivery O2 Flow Rate FiO2 09/01/19 09:00 Room Air 09/01/19 08:00 98.1 71 20 113/72 (86) 96 Intake and Output 08/31/19 09/01/19 19:00 07:00 Intake Total 480 ml Output Total 250 ml 400 ml Balance 230 ml -400 ml Intake Oral 480 ml Output Urine Total 250 ml 400 ml Objective General Appearance: no apparent distress, other - in restraints EENT: PERRL/EOMI Cardiovascular: normal rate, regular rhythm Respiratory/Chest: lungs clear, normal breath sounds Abdomen: soft, [place] bag Genitourinary/Rectal: other Extremities: normal range of motion 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 Discharge Planning. Continue Doxycylcine and Ertapenem per ID and Cx. DVT ppx. Diet as tolerated. D/C to SNF when bed available. Wound Care. 08/29: AB course has been completed. Patient is a placement issue. No need for daily labs 08/30: Placement 08/31: Will obtain AM labs; restraints deemed necessary for patient safety as he requires donohue to keep decubitus ulcers clean and dry Beatrice Ferrera D.O. Sep 01, 2019 11:57
[2019-09-01 12:00] VITALS: BP 111/71
--- NOTE | 2019-09-01 13:51 | NUR ---
CASE MANAGEMENT:REVIEW SI;SEPSIS. GRAM NEG BACILLI UTI. AC RENAL FAILURE. 98.6 76 20 101/64 96% ON RA SI;HEPARIN SUBQ Q12 MED SURG STATUS DCP; SNF PLACEMENT BARRIERS: SNF PLACEMENT BARRIERS D/T REGULAR MEDI-CINDY STATUS ACTIVELY SEEKING PLACEMENT WITH 10+ CALL LIST/DAY PATIENT HAS BEEN REFERRED TO THE FOLLOWING AND NOT ACCEPTED: [facility]
--- NOTE | 2019-09-01 14:03 | Infectious Diseases Prog Note ---
Assessment/Plan Assessment/Plan ASSESSMENT AND PLAN: 1. enterobacter uti, grey iron molder bacteremia- 4/4 bottles, ? endocarditis, ? mrsa/ proteus sacral wound infection, sepsis, leukocytosis, fevers, mrsa colonization, ARF - s/p ertapenem and doxycycline po - surveillance blood cultures - negative - wound care per surgery - monitor labs - TTE without vegetations - leukocytosis resolved - will sign off, call if any questions 2. Paraplegia. 3. Chronic catheter. 4. Sacral wound. 5. Anemia. 6. No history of diabetes or hypertension. 7. Pain management per primary care team. 8. No known allergies. 9. Social history is negative. 10. Family history is contributory. 11. MAR was noted. 12. Case discussed with RN. Subjective Constitutional: Denies: fever HEENT: Denies: congestion Respiratory: Denies: shortness of breath Cardiovascular: Denies: chest pain Gastrointestinal/Abdominal: Denies: nausea, vomiting, diarrhea Genitourinary: Reports: other - + donohue Neurologic: Denies: headache Psychiatric: Denies: depression Skin: Denies: rash Hematologic: Denies: bleeding Musculoskeletal: Denies: pain Allergies: Coded Allergies: No Known Allergies (Unverified , 08/15/19) Objective Vital Signs Last 24 Hour Vital Signs Date Time Temp Pulse Resp B/P (MAP) Pulse Ox O2 Delivery O2 Flow Rate FiO2 09/01/19 09:00 Room Air 09/01/19 08:00 98.1 71 20 113/72 (86) 96 09/01/19 04:00 97.9 70 18 115/64 (81) 96 09/01/19 00:00 98.6 71 18 112/68 (83) 96 08/31/19 21:00 Room Air 08/31/19 20:00 98.2 76 18 101/64 (76) 96 08/31/19 16:00 96.8 71 57 100/65 (77) 96 Height (Feet): 5 Height (Inches): 7.00 Weight (Pounds): 137 General Appearance: no acute distress HEENT: normocephalic, atraumatic, anicteric, mucous membranes moist Respiratory/Chest: lungs clear, normal breath sounds, no respiratory distress, no accessory muscle use Cardiovascular: normal rate, regular rhythm, no gallop/murmur, no JVD Abdomen: normal bowel sounds, soft, non tender, no organomegaly, non distended Genitourinary: other - + donohue Extremities: no cyanosis Skin: no rash Neurologic/Psychiatric: referral nurse II-XII grossly normal, alert, responsive Lymphatic: no neck adenopathy Musculoskeletal: no effusion Objective Chest x-ray - 08/15/19 - Procedure: XRAY Chest 1v Procedure: XRAY Chest 1v Reason for study: Chest pain Comparison films: None. FINDINGS: A single one view chest is obtained. Vascularity is normal. The lung hess are clear bilaterally. Cardiac and mediastinal silhouette are within normal limits. CP angles are sharp. The bony thorax appear unremarkable. IMPRESSION: NO ACUTE CARDIOPULMONARY DISEASE. Microbiology Date/Time Source Procedure Growth Status 08/18/19 16:45 Blood Blood Culture - Final NO GROWTH AFTER 5 DAYS Complete 08/15/19 18:50 Nasopharynx Coronavirus COVID-19 PCR (GENE) - Final Complete 08/19/19 15:14 Urine,Clean Catch Urine Culture - Final NO GROWTH AFTER 48 HOURS Complete 08/16/19 18:20 Sacral Wound Gram Stain - Final Complete 08/16/19 18:20 Wound Culture - Final Staphylococcus Aureus - Mrsa Proteus Mirabilis Complete Labs Test 08/29/19 15:50 Sodium Level 137 MMOL/L (136-145) Potassium Level 3.5 MMOL/L (3.5-5.1) Chloride Level 98 MMOL/L (98-107) Carbon Dioxide Level 28 MMOL/L (21-32) Anion Gap 11 mmol/L (5-15) Blood Urea Nitrogen 14 mg/dL (7-18) Creatinine 1.3 MG/DL (0.55-1.30) Estimat Glomerular Filtration Rate 56.7 mL/min (>60) Glucose Level 96 MG/DL (74-106) Calcium Level 8.8 MG/DL (8.5-10.1) Phosphorus Level 3.1 MG/DL (2.5-4.9) Magnesium Level 1.4 MG/DL (1.8-2.4) wbc - 8.5 hgb - 9.8 Current Medications Medications (Trade) Dose Ordered Sig/Mya Route PRN Reason Start Time Stop Time Status Last Admin Dose Admin Acetaminophen (Tylenol) 650 mg Q6H PRN ORAL Temp >100.5 08/16/19 00:45 09/15/19 00:44 08/27/19 16:22 Heparin Sodium (Porcine) (Heparin 5000 units/ml) 5,000 units EVERY 12 HOURS SUBQ 08/16/19 09:00 09/30/19 08:59 09/01/19 08:41 Sharif Painting MD Sep 01, 2019 14:03
--- NOTE | 2019-09-01 14:30 | Surgery Progress Note ---
Surgery Progress Note Subjective Symptoms: improved, tolerating diet, voiding well, passing flatus, BM Objective Last 24 Hour Vital Signs Date Time Temp Pulse Resp B/P (MAP) Pulse Ox O2 Delivery O2 Flow Rate FiO2 09/01/19 09:00 Room Air 09/01/19 08:00 98.1 71 20 113/72 (86) 96 09/01/19 04:00 97.9 70 18 115/64 (81) 96 09/01/19 00:00 98.6 71 18 112/68 (83) 96 08/31/19 21:00 Room Air 08/31/19 20:00 98.2 76 18 101/64 (76) 96 08/31/19 16:00 96.8 71 57 100/65 (77) 96 I&O Intake and Output 08/31/19 09/01/19 19:00 07:00 Intake Total 480 ml Output Total 250 ml 400 ml Balance 230 ml -400 ml Intake Oral 480 ml Output Urine Total 250 ml 400 ml Dressing: dry Wound: clean Cardiovascular: RSR Respiratory: clear Abdomen: soft, non-tender, present bowel sounds Extremities: edema, no tenderness, no cyanosis Plan Problems: (1) Left leg pain Assessment & Plan: Patient presented admission complaining of left leg pain. On evaluation there is deformity left lower extremity plain films reviewed and obvious deformity noted as the femoral proximal is dislocated from the shaft. Patient is nonambulatory at baseline per report. He is somewhat cooperative examined with exam but a poor historian. Multiple skin concerns identified. Pt presented on admission with multiple Pressure Injuries, Bilat foot drop. Historical scar noted to L Hip Large Full Thickness Pressure Injury Buttocks with undermining and tunneling. Wound has irregular borders extends from Sacrum to L ischium and base of Scrotum,laterally from Outer R to Outer L gluteus.(L)18.9cm x (W)18.5cm x (D) 3.7cm, undermining clockwise 10-3 by 5.9cm @3o'clock,Tunneling clockwise @6o' clock by 2.7cm.Scattered Biofilm with Hyden granulation at base of wound ,bone is palpable in tunneled and undermined areas. At distal base of wound, at scrotum is an area of slough-size of Quarter. Small amt non-odorous serous exudate.Periwound is pink with scattered brownish skin tone.( Full thickness Pressure injury R Ischium(L)9.5cm x (W)9.7cm x (D)4.2cm, Tunneling clockwise into perineum at 7o'clock by 5.3cm. Base of wound has scattered slough. Bone is palpable . Small amt seropurulent exudate. Mild odor which resolved post cleansing of wound.Erythema noted along edges. Additional area of slough noted periwound along borders clockwise @3-4o'clock. Non-Blanching erythema noted to Protruding bony prominence L Hip. Dry, loosening eschar lateral L tibia. (L)1.1cm x (W)0.4cm.Hyden epithelial along borders. Stable dry, brown eschar noted to medial L tibia(L)4.3cm x (W)1cm. Stable dry eschar noted to Plantar L Heel. (L)4.5cm x (W)2cm. Periwound is boggy but blanchable.Historical scar alson noted periwound. Full thickness pressure injury Plantar R Heel (L)1.2cm x (W)2.5cm x (D)0.2cm. 80 % pink granulation,20% slough at base of wound. Edges are macerated. Small amt non-odorous serous exudate. Periwound is boggy but blanchable. Tx.Plan: Cleanse wound Buttocks with Saline. Loosely Pack wound including undermined areas with Hydrogel impregnated Kerlix.Apply Moisture Barrier Paste along borders. Cover with ABD Pads and secure with Tegaderm Daily and prn. Cleanse R Ischial Wound with Saline. Loosely pack with Hydrogel Impregnated Kerlix. Apply Moisture Barrier Periwound. Cover with ABD Pad and secure with Tegaderm Daily and prn. Apply Cavilon Skin Barrier to L Hip Bony Protrusion (Do Not Rub/ Massage area). Cover with Optifoam drsg. Change every 3 days and prn. Apply Betadine to Medial and lateral L Tibial wounds. Cover with Optifoam drsg every 3 days and prn. Apply Betadine to Plantar L Heel wound. Cover with Optifoam drsg. Change every 3 days and prn. Apply Betadine to Plantar R heel wound. Cover with Optifoam drsg every 3 days and prn. Reposition at least every 2hours or as tolerated. Place pillow between knees. Off-Load Heels with Pillow. APM/SUMI Mattress overlay. (2) Femur fracture Assessment & Plan: There is an old amputation defect across the mid femoral shaft. The mid to distal femur is unremarkable with normal articulation at the knee. The proximal femur including the femoral head is not visualized likely resected. There is deformity of the left hip/acetabulum likely posttraumatic. Adjacent heterotopic ossification noted. Surrounding soft tissue is normal. 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 can be done ioutpatient as this is chronic ostomy prolapse stable loop and functional (3) Urinary tract infection (4) Sacral decubitus ulcer Assessment & Plan: Patient with a prolapsed loop ostomy identified. Still functional viable reducible. outpt follow up for revision (5) Paraplegia (6) Ileostomy prolapse Assessment & Plan: loop ileostomy prolapse noted. distal limb prolapsed proximal mild with gas and stool output. reducible easily at bedside but prolapse easily no n/v/f/c functional recommend elective repair Cornelius Salgado Sep 01, 2019 14:30
--- NOTE | 2019-09-01 15:15 | NUR ---
*-*DISCHARGE DISCHARGE *-* PATIENT HAS BEEN REFERRED TO: [facility] P: [phone] [facility] P: [phone] [facility] [place] P: [phone] [facility] P: [phone] [facility] P: [phone] [facility] P: [phone] [facility] P: [phone] [facility] P: [phone] [facility] P: [phone] [facility] P: [phone] Addendum: 09/01/19 at 1710 by NOVA PABLO *-*DISCHARGE DISCHARGE *-* PATIENT HAS BEEN REFERRED TO: [facility] P: [phone] S/W JAMISON, NO MALE BEDS AVAILABLE [facility] P: [phone] S/W NOVA, NO MALE BEDS AVAILABLE [facility] P: [phone] S/W LUCILA, NO BED AVAILABLE [facility] P: [phone] S/W NADRES, NOT ACCEPTING NEW PATIENTS [facility] P: [phone] S/W CHALO, CALL AND CHECK WEDNESDAY FOR BED AVAILABILITY [facility] P: [phone] S/W CHRISTI, 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 [facility] P: [phone] S/W CHRISTI, ADMISSION GONE WORKING FROM HOME.
[2019-09-01 16:00] VITALS: BP 123/57
--- NOTE | 2019-09-01 18:39 | Nephrology Progress Note ---
Assessment/Plan Plan #Maxwell - likely due to vancomycin toxicity #sepsis due to UTI #Hyponatremia #hypomagnesemia #history for femur amputation #Left leg pain #Hx Left leg amputation #Paraplegia #Sacral decub ulcer #anemia - Cr downtrending - check renal US-> IMPRESSION: Mildly echogenic right kidney. This is nonspecific but may suggest renal parenchymal disease. No hydronephrosis. - placed donohue - Dc ivf - replete lytes - DC midodrine to 5mg TID - DC VANCO - antibiotics per D - follow urine cx - monitor mag, phos, BMP daily - surgery eval - pain control - monitor WBC - monitor UOP - avoid nephrotoxins Time spent 70 minutes, greater than 50% on care coordination and counseling Subjective ROS Limited/Unobtainable: Yes Subjective Cr downtrending Dced vanco check renal US-> IMPRESSION: Mildly echogenic right kidney. This is nonspecific but may suggest renal parenchymal disease. No hydronephrosis. Objective Objective Last 24 Hour Vital Signs Date Time Temp Pulse Resp B/P (MAP) Pulse Ox O2 Delivery O2 Flow Rate FiO2 09/01/19 16:00 98.4 97 20 123/57 (79) 94 09/01/19 12:00 98.1 85 20 111/71 (84) 94 09/01/19 09:00 Room Air 09/01/19 08:00 98.1 71 20 113/72 (86) 96 09/01/19 04:00 97.9 70 18 115/64 (81) 96 09/01/19 00:00 98.6 71 18 112/68 (83) 96 08/31/19 21:00 Room Air 08/31/19 20:00 98.2 76 18 101/64 (76) 96 Intake and Output 08/31/19 09/01/19 19:00 07:00 Intake Total 480 ml Output Total 250 ml 400 ml Balance 230 ml -400 ml Intake Oral 480 ml Output Urine Total 250 ml 400 ml Height (Feet): 5 Height (Inches): 7.00 Weight (Pounds): 137 Sienna Georges M.D. Sep 01, 2019 18:39
--- NOTE | 2019-09-01 19:49 | NUR ---
HAND-OFF: Report given to ATNJA Wood.
--- NOTE | 2019-09-01 19:50 | NUR ---
NURSE NOTES: Patient in bed, awake and alert x1. On room air with no signs of distress or SOB. IV intact and patent. Colostomy bag in place. Marcos in place and draining to gravity. Bilateral soft wrist restraints in progress; pulses palpable. Bed locked and in lowest position. Will continue plan of care
[2019-09-01 20:00] VITALS: BP 124/75
[2019-09-02] VITALS: BP 130/78
[2019-09-02 04:00] VITALS: BP 130/77
[2019-09-02 07:27] LABS: BASOPHILS % (AUTO) 0.9 % (0.0-2.0); EOSINOPHILS % (AUTO) 0.3 % (0.0-3.0); LYMPHOCYTES % (AUTO) 18.2 % (20.0-45.0); MEAN CORPUSCULAR VOLUME 82 FL (80-99); MONOCYTES % (AUTO) 6.4 % (1.0-10.0); NEUTROPHILS % (AUTO) 74.2 % (45.0-75.0); PLATELET COUNT 238 K/UL (150-450); RED BLOOD COUNT 4.01 M/UL (4.70-6.10); RED CELL DISTRIBUTION WIDTH 18.5 % (11.6-14.8); WHITE BLOOD COUNT 11.5 K/UL (4.8-10.8)
--- NOTE | 2019-09-02 07:48 | NUR ---
HAND-OFF: Report given to TANJA Olivas.
--- NOTE | 2019-09-02 07:49 | NUR ---
NURSE NOTES: Patient awake, alert x2, confused, combative; on room air, no sing of shortness of breath and no distress; no sing of chest pain; Marcos in place, drains yellow urine; Colostomy bag in place, skin is intact; IV Left For-Arm 22G flushes well; bilateral soft wrist in place, skin warm and good circulation; side rails up x2, breaks engaged, bed at low position, bed alarm on; call light within reach; will keep monitoring.
[2019-09-02 08:00] VITALS: BP 123/70
[2019-09-02 08:01] LABS: ALANINE AMINOTRANSFERASE 8 U/L (12-78); ALBUMIN 2.8 G/DL (3.4-5.0); ALBUMIN/GLOBULIN RATIO 0.5 (1.0-2.7); ALKALINE PHOSPHATASE 136 U/L (46-116); ANION GAP 10 mmol/L (5-15); ASPARTATE AMINO TRANSFERASE 15 U/L (15-37); BILIRUBIN,TOTAL 0.6 MG/DL (0.2-1.0); BLOOD UREA NITROGEN 17 mg/dL (7-18); CARBON DIOXIDE 30 MMOL/L (21-32); CHLORIDE 96 MMOL/L (98-107); CREATININE 1.1 MG/DL (0.55-1.30); PHOSPHORUS 2.7 MG/DL (2.5-4.9); POTASSIUM 3.4 MMOL/L (3.5-5.1); SODIUM 136 MMOL/L (136-145)
[2019-09-02] MEDS: Heparin 5000 units/ml inj SUBQ SCH ×2 (09:35→21:01)
--- NOTE | 2019-09-02 10:12 | NUR ---
NURSE NOTES: Patient's K 3.4; MD Ferrera notified; MD Ferrera said MD Solis covering; I left a message with Brook to notifie MD Solis regarding this lab value; waiting for order;
--- NOTE | 2019-09-02 11:55 | General Progress Note ---
Assessment/Plan Status: stable, progressing Assessment/Plan: 59-year-old male with multiple medical problems including paraplegia, bedbound, dementia admitted with sepsis due to urinary tract infection and AMS. #UTI -> gram neg bacilli #Sepsis due to a UTI (fever, leukocytosis) - ID consult, Dr Freeman - observe off abx #Hyponatremia #Hypomagnesemia #Hypokalemia - replete prn - nephro consult, Dr Georges #Anemia - stable #Suspect OSMIN - trend cbc - transfuse for Hb < 7 #Left leg pain #Hx Left leg amputation #Paraplegia - ctm - pain control #Sacral decubitus ulcer, POA - offloading per rn protocl q2h - surgery consult for wound, appreciate recs and mgt #Toxic metabolic encephalopathy - tx as above - delirium precautions FENPPX DVTPPX: SCD, HSQ GI PPX: na Fluids: mIVF x 2L Diet: regular Lines: PT/OT: Code status: Full Dispo: SNF ([facility]) Reason for Continued Hospitalization: placement 38 minutes spent on this encounter. Discussed with RN at bedside and consultants named above. 27 spent on counseling and care coordination. Time of note may not reflect time patient was seen. Subjective Date patient seen: Sep 02, 2019 Allergies: Coded Allergies: No Known Allergies (Unverified , 08/15/19) Subjective AVSS k & mag low -> replaced Hb stable mild inc in wbc to 11 in good spirits no new complaints Awaiting placement Objective Last 24 Hour Vital Signs Date Time Temp Pulse Resp B/P (MAP) Pulse Ox O2 Delivery O2 Flow Rate FiO2 09/02/19 09:00 Room Air 09/02/19 08:00 98.8 78 18 123/70 (87) 98 09/02/19 04:00 98.5 86 20 130/77 (94) 96 09/02/19 00:00 98.9 91 20 130/78 (95) 96 09/01/19 21:00 Room Air 09/01/19 20:00 98.4 90 20 124/75 (91) 96 09/01/19 16:00 98.4 97 20 123/57 (79) 94 09/01/19 12:00 98.1 85 20 111/71 (84) 94 Intake and Output 09/01/19 09/02/19 19:00 07:00 Intake Total 720 ml Output Total 750 ml Balance 720 ml -750 ml Intake Oral 720 ml Output Urine Total 750 ml # Voids 1 Laboratory Tests 09/02/19 05:55: White Blood Count 11.5H, Red Blood Count 4.01L, Hemoglobin 10.0L, Hematocrit 33.0L, Mean Corpuscular Volume 82, Mean Corpuscular Hemoglobin 25.0L, Mean Corpuscular Hemoglobin Concent 30.4L, Red Cell Distribution Width 18.5H, Platelet Count 238, Mean Platelet Volume 5.6L, Neutrophils (%) (Auto) 74.2, Lymphocytes (%) (Auto) 18.2L, Monocytes (%) (Auto) 6.4, Eosinophils (%) (Auto) 0.3, Basophils (%) (Auto) 0.9, Sodium Level 136, Potassium Level 3.4L, Chloride Level 96L, Carbon Dioxide Level 30, Anion Gap 10, Blood Urea Nitrogen 17, Creatinine 1.1, Estimat Glomerular Filtration Rate > 60, Glucose Level 111H, Calcium Level 9.0, Phosphorus Level 2.7, Magnesium Level 1.6L, Total Bilirubin 0.6, Aspartate Amino Transf (AST/SGOT) 15, Alanine Aminotransferase (ALT/SGPT) 8L, Alkaline Phosphatase 136H, Total Protein 8.0, Albumin 2.8L, Globulin 5.2, Albumin/Globulin Ratio 0.5L Height (Feet): 5 Height (Inches): 7.00 Weight (Pounds): 137 Objective General Appearance: no apparent distress, alert, confused HEENT: normocephalic, atraumatic, PERRL, EOMI, supple, no JVD Neck: normal alignment Respiratory/Chest: lungs clear, no respiratory distress, no accessory muscle use Cardiovascular/Chest: normal rate, no gallop/murmur, no JVD Abdomen: non tender, soft, no organomegaly Extremities: other - Atrophic Rajesh Garcia MD Sep 02, 2019 11:55
[2019-09-02 12:00] VITALS: BP 126/83
[2019-09-02 16:00] VITALS: BP 121/80
--- NOTE | 2019-09-02 16:18 | NUR ---
CASE MANAGEMENT:REVIEW 09/02/19 SI:TOXIC METABOLIC ENCEPHALOPATHY SEPSIS. GRAM NEG BACILLI UTI. AC RENAL FAILURE. 98.3 79 18 126/83 97% ON RA WBC 11.5 H/H 10.0/33.0 K+ 3.4 MG 1.6 ASLKP 136 ALB 2.8 SI;K-DUR PO X1 IV MG SULFATE X2 BAGS HEPARIN SUBQ Q12 TYLENOL PO Q6HR/PRN \: 3E MED SURG UNIT DCP: SNF PLACEMENT PLAN: AM LABS
--- NOTE | 2019-09-02 16:32 | Surgery Progress Note ---
Surgery Progress Note Subjective Additional Comments no acute events Objective Last 24 Hour Vital Signs Date Time Temp Pulse Resp B/P (MAP) Pulse Ox O2 Delivery O2 Flow Rate FiO2 09/02/19 12:00 98.3 79 18 126/83 (97) 97 09/02/19 09:00 Room Air 09/02/19 08:00 98.8 78 18 123/70 (87) 98 09/02/19 04:00 98.5 86 20 130/77 (94) 96 09/02/19 00:00 98.9 91 20 130/78 (95) 96 09/01/19 21:00 Room Air 09/01/19 20:00 98.4 90 20 124/75 (91) 96 I&O Intake and Output 09/01/19 09/02/19 19:00 07:00 Intake Total 720 ml Output Total 750 ml Balance 720 ml -750 ml Intake Oral 720 ml Output Urine Total 750 ml # Voids 1 Dressing: other Wound: other Drains: other Cardiovascular: RSR Respiratory: decreased breath sounds Abdomen: soft, non-tender, present bowel sounds Extremities: no cyanosis Laboratory Tests Test 09/02/19 05:55 White Blood Count 11.5 K/UL (4.8-10.8) H Red Blood Count 4.01 M/UL (4.70-6.10) L Hemoglobin 10.0 G/DL (14.2-18.0) L Hematocrit 33.0 % (42.0-52.0) L Mean Corpuscular Volume 82 FL (80-99) Mean Corpuscular Hemoglobin 25.0 PG (27.0-31.0) L Mean Corpuscular Hemoglobin Concent 30.4 G/DL (32.0-36.0) L Red Cell Distribution Width 18.5 % (11.6-14.8) H Platelet Count 238 K/UL (150-450) Mean Platelet Volume 5.6 FL (6.5-10.1) L Neutrophils (%) (Auto) 74.2 % (45.0-75.0) Lymphocytes (%) (Auto) 18.2 % (20.0-45.0) L Monocytes (%) (Auto) 6.4 % (1.0-10.0) Eosinophils (%) (Auto) 0.3 % (0.0-3.0) Basophils (%) (Auto) 0.9 % (0.0-2.0) Sodium Level 136 MMOL/L (136-145) Potassium Level 3.4 MMOL/L (3.5-5.1) L Chloride Level 96 MMOL/L (98-107) L Carbon Dioxide Level 30 MMOL/L (21-32) Anion Gap 10 mmol/L (5-15) Blood Urea Nitrogen 17 mg/dL (7-18) Creatinine 1.1 MG/DL (0.55-1.30) Estimat Glomerular Filtration Rate > 60 mL/min (>60) Glucose Level 111 MG/DL (74-106) H Calcium Level 9.0 MG/DL (8.5-10.1) Phosphorus Level 2.7 MG/DL (2.5-4.9) Magnesium Level 1.6 MG/DL (1.8-2.4) L Total Bilirubin 0.6 MG/DL (0.2-1.0) Aspartate Amino Transf (AST/SGOT) 15 U/L (15-37) Alanine Aminotransferase (ALT/SGPT) 8 U/L (12-78) L Alkaline Phosphatase 136 U/L (46-116) H Total Protein 8.0 G/DL (6.4-8.2) Albumin 2.8 G/DL (3.4-5.0) L Globulin 5.2 g/dL Albumin/Globulin Ratio 0.5 (1.0-2.7) L Plan Problems: (1) Left leg pain Assessment & Plan: Patient presented admission complaining of left leg pain. On evaluation there is deformity left lower extremity plain films reviewed and obvious deformity noted as the femoral proximal is dislocated from the shaft. Patient is nonambulatory at baseline per report. He is somewhat cooperative examined with exam but a poor historian. Multiple skin concerns identified. Pt presented on admission with multiple Pressure Injuries, Bilat foot drop. Historical scar noted to L Hip Large Full Thickness Pressure Injury Buttocks with undermining and tunneling. Wound has irregular borders extends from Sacrum to L ischium and base of Scrotum,laterally from Outer R to Outer L gluteus.(L)18.9cm x (W)18.5cm x (D) 3.7cm, undermining clockwise 10-3 by 5.9cm @3o'clock,Tunneling clockwise @6o' clock by 2.7cm.Scattered Biofilm with [place] granulation at base of wound ,bone is palpable in tunneled and undermined areas. At distal base of wound, at scrotum is an area of slough-size of Quarter. Small amt non-odorous serous exudate.Periwound is pink with scattered brownish skin tone.( Full thickness Pressure injury R Ischium(L)9.5cm x (W)9.7cm x (D)4.2cm, Tunneling clockwise into perineum at 7o'clock by 5.3cm. Base of wound has scattered slough. Bone is palpable . Small amt seropurulent exudate. Mild odor which resolved post cleansing of wound.Erythema noted along edges. Additional area of slough noted periwound along borders clockwise @3-4o'clock. Non-Blanching erythema noted to Protruding bony prominence L Hip. Dry, loosening eschar lateral L tibia. (L)1.1cm x (W)0.4cm.[place] epithelial along borders. Stable dry, brown eschar noted to medial L tibia(L)4.3cm x (W)1cm. Stable dry eschar noted to Plantar L Heel. (L)4.5cm x (W)2cm. Periwound is boggy but blanchable.Historical scar alson noted periwound. Full thickness pressure injury Plantar R Heel (L)1.2cm x (W)2.5cm x (D)0.2cm. 80 % pink granulation,20% slough at base of wound. Edges are macerated. Small amt non-odorous serous exudate. Periwound is boggy but blanchable. Tx.Plan: Cleanse wound Buttocks with Saline. Loosely Pack wound including undermined areas with Hydrogel impregnated Kerlix.Apply Moisture Barrier Paste along borders. Cover with ABD Pads and secure with Tegaderm Daily and prn. Cleanse R Ischial Wound with Saline. Loosely pack with Hydrogel Impregnated Kerlix. Apply Moisture Barrier Periwound. Cover with ABD Pad and secure with Tegaderm Daily and prn. Apply Cavilon Skin Barrier to L Hip Bony Protrusion (Do Not Rub/ Massage area). Cover with Optifoam drsg. Change every 3 days and prn. Apply Betadine to Medial and lateral L Tibial wounds. Cover with Optifoam drsg every 3 days and prn. Apply Betadine to Plantar L Heel wound. Cover with Optifoam drsg. Change every 3 days and prn. Apply Betadine to Plantar R heel wound. Cover with Optifoam drsg every 3 days and prn. Reposition at least every 2hours or as tolerated. Place pillow between knees. Off-Load Heels with Pillow. APM/SUMI Mattress overlay. (2) Femur fracture Assessment & Plan: There is an old amputation defect across the mid femoral shaft. The mid to distal femur is unremarkable with normal articulation at the knee. The proximal femur including the femoral head is not visualized likely resected. There is deformity of the left hip/acetabulum likely posttraumatic. Adjacent heterotopic ossification noted. Surrounding soft tissue is normal. 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 can be done ioutpatient as this is chronic ostomy prolapse stable loop and functional (3) Urinary tract infection (4) Sacral decubitus ulcer Assessment & Plan: Patient with a prolapsed loop ostomy identified. Still functional viable reducible. outpt follow up for revision (5) Paraplegia (6) Ileostomy prolapse Assessment & Plan: loop ileostomy prolapse noted. distal limb prolapsed proximal mild with gas and stool output. reducible easily at bedside but prolapse easily no n/v/f/c functional recommend elective repair Cornelius Salgado Sep 02, 2019 16:32
--- NOTE | 2019-09-02 19:20 | NUR ---
NURSE NOTES: received report from kasandra rn. patient on bed awake. with bilateral soft wrist restraints. noted patient trying to take out restraints. iv line on the right forearm, tko. with colostomy bag and donohue catheter draining well. per kasandra, she gave 2 bags of magnesium due to mg level of 1.6 and kcl 40 meq x1 was given due to k level of 3.4. bed locked and in lowest position. call light and light button within easy reach. will continue plan of care
--- NOTE | 2019-09-02 19:20 | NUR ---
HAND-OFF: Report given to TANJA Farrell. Plan of care endorsed to incoming nurse;
--- NOTE | 2019-09-02 19:37 | Nephrology Progress Note ---
Assessment/Plan Plan #Maxwell - likely due to vancomycin toxicity #sepsis due to UTI #hypokalemia #Hyponatremia #hypomagnesemia #history for femur amputation #Left leg pain #Hx Left leg amputation #Paraplegia #Sacral decub ulcer #anemia - K and mag low-> repleted - Cr downtrending - check renal US-> IMPRESSION: Mildly echogenic right kidney. This is nonspecific but may suggest renal parenchymal disease. No hydronephrosis. - placed donohue - Dc ivf - replete lytes - DC midodrine to 5mg TID - DC VANCO - antibiotics per D - follow urine cx - monitor mag, phos, BMP daily - surgery eval - pain control - monitor WBC - monitor UOP - avoid nephrotoxins Time spent 70 minutes, greater than 50% on care coordination and counseling Subjective ROS Limited/Unobtainable: Yes Subjective Cr downtrending K and mag low-> repleted Dced vanco check renal US-> IMPRESSION: Mildly echogenic right kidney. This is nonspecific but may suggest renal parenchymal disease. No hydronephrosis. Objective Objective Last 24 Hour Vital Signs Date Time Temp Pulse Resp B/P (MAP) Pulse Ox O2 Delivery O2 Flow Rate FiO2 09/02/19 16:00 98.3 71 19 121/80 (94) 98 09/02/19 12:00 98.3 79 18 126/83 (97) 97 09/02/19 09:00 Room Air 09/02/19 08:00 98.8 78 18 123/70 (87) 98 09/02/19 04:00 98.5 86 20 130/77 (94) 96 09/02/19 00:00 98.9 91 20 130/78 (95) 96 09/01/19 21:00 Room Air 09/01/19 20:00 98.4 90 20 124/75 (91) 96 Intake and Output 09/01/19 09/02/19 19:00 07:00 Intake Total 720 ml Output Total 750 ml Balance 720 ml -750 ml Intake Oral 720 ml Output Urine Total 750 ml # Voids 1 Laboratory Tests 09/02/19 05:55: White Blood Count 11.5H, Red Blood Count 4.01L, Hemoglobin 10.0L, Hematocrit 33.0L, Mean Corpuscular Volume 82, Mean Corpuscular Hemoglobin 25.0L, Mean Corpuscular Hemoglobin Concent 30.4L, Red Cell Distribution Width 18.5H, Platelet Count 238, Mean Platelet Volume 5.6L, Neutrophils (%) (Auto) 74.2, Lymphocytes (%) (Auto) 18.2L, Monocytes (%) (Auto) 6.4, Eosinophils (%) (Auto) 0.3, Basophils (%) (Auto) 0.9, Sodium Level 136, Potassium Level 3.4L, Chloride Level 96L, Carbon Dioxide Level 30, Anion Gap 10, Blood Urea Nitrogen 17, Creatinine 1.1, Estimat Glomerular Filtration Rate > 60, Glucose Level 111H, Calcium Level 9.0, Phosphorus Level 2.7, Magnesium Level 1.6L, Total Bilirubin 0.6, Aspartate Amino Transf (AST/SGOT) 15, Alanine Aminotransferase (ALT/SGPT) 8L, Alkaline Phosphatase 136H, Total Protein 8.0, Albumin 2.8L, Globulin 5.2, Albumin/Globulin Ratio 0.5L Height (Feet): 5 Height (Inches): 7.00 Weight (Pounds): 137 Sienna Georges M.D. Sep 02, 2019 19:37
[2019-09-02 20:00] VITALS: BP 117/76
[2019-09-03] VITALS: BP 120/75
[2019-09-03 04:00] VITALS: BP 124/79
[2019-09-03 06:25] LABS: BASOPHILS % (AUTO) 1.4 % (0.0-2.0); EOSINOPHILS % (AUTO) 1.4 % (0.0-3.0); HEMATOCRIT 32.7 % (42.0-52.0); HEMOGLOBIN 9.9 G/DL (14.2-18.0); LYMPHOCYTES % (AUTO) 21.2 % (20.0-45.0); MEAN CORPUSCULAR VOLUME 82 FL (80-99); MONOCYTES % (AUTO) 5.9 % (1.0-10.0); NEUTROPHILS % (AUTO) 70.1 % (45.0-75.0); PLATELET COUNT 232 K/UL (150-450); RED BLOOD COUNT 3.98 M/UL (4.70-6.10); RED CELL DISTRIBUTION WIDTH 18.2 % (11.6-14.8)
[2019-09-03 07:04] LABS: ANION GAP 10 mmol/L (5-15); BLOOD UREA NITROGEN 15 mg/dL (7-18); CALCIUM 9.1 MG/DL (8.5-10.1); CARBON DIOXIDE 27 MMOL/L (21-32); CHLORIDE 97 MMOL/L (98-107); CREATININE 1.1 MG/DL (0.55-1.30); POTASSIUM 4.1 MMOL/L (3.5-5.1); SODIUM 134 MMOL/L (136-145)
--- NOTE | 2019-09-03 07:31 | NUR ---
HAND-OFF: Report given to wolfgang cheung. patient is awake, no sob. call light and light button within easy reach. plan of care endorsed.
--- NOTE | 2019-09-03 07:40 | NUR ---
NURSE NOTES: received report from samanta Connors. patient is A/A/Ox2, confused. On bilateral soft wrist restraints due to removing devices and had episodes of combativeness and impulsiveness. IV heplock is patent and intact. with colostomy bag and donohue catheter draining well. keep bed in the lowest position. bed locked and brakes activated. siderails are upx3. call light and light button within easy reach. will continue plan of care
[2019-09-03 08:00] VITALS: BP 128/75
[2019-09-03] MEDS: Heparin 5000 units/ml inj SUBQ SCH ×2 (08:52→20:18)
[2019-09-03 12:07] VITALS: BP 127/73
--- NOTE | 2019-09-03 12:31 | General Progress Note ---
Assessment/Plan Status: stable, progressing Assessment/Plan: Status: stable, progressing Assessment/Plan: 59-year-old male with multiple medical problems including paraplegia, bedbound, dementia admitted with sepsis due to urinary tract infection and AMS. #UTI -> gram neg bacilli #Sepsis due to a UTI (fever, leukocytosis) - ID consult, Dr Freeman - observe off abx #Hyponatremia #Hypomagnesemia #Hypokalemia - replete prn - nephro consult, Dr Georges #Anemia - stable #Suspect OSMIN - trend cbc - transfuse for Hb < 7 #Left leg pain #Hx Left leg amputation #Paraplegia - ctm - pain control #Sacral decubitus ulcer, POA - offloading per rn protocl q2h - surgery consult for wound, appreciate recs and mgt #Toxic metabolic encephalopathy - tx as above - delirium precautions FENPPX DVTPPX: SCD, HSQ GI PPX: na Fluids: mIVF x 2L Diet: regular Lines: PT/OT: Code status: Full [facility] Reason for Continued Hospitalization: placement 36 minutes spent on this encounter. Discussed with RN at bedside and consultants named above. Time of note may not reflect time patient was seen. Subjective Date patient seen: Sep 03, 2019 Time patient seen: 12:30 ROS Limited/Unobtainable: Yes Allergies: Coded Allergies: No Known Allergies (Unverified , 08/15/19) Subjective Had no complaints resting in bed, afebrile Objective Last 24 Hour Vital Signs Date Time Temp Pulse Resp B/P (MAP) Pulse Ox O2 Delivery O2 Flow Rate FiO2 09/03/19 12:07 97.3 92 16 127/73 (91) 96 09/03/19 08:24 Room Air 09/03/19 08:00 98.0 79 18 128/75 (92) 97 09/03/19 04:00 98.6 71 20 124/79 (94) 97 09/03/19 00:00 98.4 76 20 120/75 (90) 98 09/02/19 21:00 Room Air 09/02/19 20:00 98.1 74 20 117/76 (90) 97 09/02/19 16:00 98.3 71 19 121/80 (94) 98 Intake and Output 09/02/19 09/03/19 19:00 07:00 Intake Total 600 ml 300 ml Output Total 600 ml 550 ml Balance 0 ml -250 ml Intake Oral 300 ml IV Total 200 ml Other 400 ml Output Urine Total 600 ml 550 ml Laboratory Tests 09/03/19 05:50: White Blood Count 9.0, Red Blood Count 3.98L, Hemoglobin 9.9L, Hematocrit 32.7L , Mean Corpuscular Volume 82, Mean Corpuscular Hemoglobin 24.9L, Mean Corpuscular Hemoglobin Concent 30.3L, Red Cell Distribution Width 18.2H, Platelet Count 232, Mean Platelet Volume 5.3L, Neutrophils (%) (Auto) 70.1, Lymphocytes (%) (Auto) 21.2, Monocytes (%) (Auto) 5.9, Eosinophils (%) (Auto) 1.4, Basophils (%) (Auto) 1.4, Sodium Level 134L, Potassium Level 4.1, Chloride Level 97L, Carbon Dioxide Level 27, Anion Gap 10, Blood Urea Nitrogen 15, Creatinine 1.1, Estimat Glomerular Filtration Rate > 60, Glucose Level 102, Calcium Level 9.1, Magnesium Level 2.1 Height (Feet): 5 Height (Inches): 7.00 Weight (Pounds): 137 Objective General: alert, cooperative, no distress, appears stated age Head: normocephalic, without obvious abnormality, atraumatic Eyes: conjunctivae/corneas clear. PERRL, EOM's intact Throat: lips, mucosa, and tongue normal. MMM Neck: supple, symmetrical, trachea midline, and no JVD Lungs: clear to auscultation bilaterally Heart: regular rate and rhythm, S1, S2 normal, no murmur, click, rub or gallop Abdomen: soft, non-tender, non-distended, bowel sounds normal; no masses or organomegaly Extremities: extremities normal, atraumatic, no cyanosis or edema Pulses: 2+ and symmetric Skin: skin color, texture, turgor normal; no rashes or lesions Neurologic: grossly normal, no focal deficits Thalia Marx MD Sep 03, 2019 12:31
--- NOTE | 2019-09-03 13:01 | Nephrology Progress Note ---
Assessment/Plan Plan #Maxwell - likely due to vancomycin toxicity #sepsis due to UTI #hypokalemia #Hyponatremia #hypomagnesemia #history for femur amputation #Left leg pain #Hx Left leg amputation #Paraplegia #Sacral decub ulcer #anemia - K and mag low-> repleted - Cr downtrending - check renal US-> IMPRESSION: Mildly echogenic right kidney. This is nonspecific but may suggest renal parenchymal disease. No hydronephrosis. - placed donohue - Dc ivf - replete lytes - DC midodrine to 5mg TID - DC VANCO - antibiotics per D - follow urine cx - monitor mag, phos, BMP daily - surgery eval - pain control - monitor WBC - monitor UOP - avoid nephrotoxins Time spent 70 minutes, greater than 50% on care coordination and counseling Subjective ROS Limited/Unobtainable: Yes Subjective Cr downtrending K and mag low-> repleted Dced vanco check renal US-> IMPRESSION: Mildly echogenic right kidney. This is nonspecific but may suggest renal parenchymal disease. No hydronephrosis. Objective Objective Last 24 Hour Vital Signs Date Time Temp Pulse Resp B/P (MAP) Pulse Ox O2 Delivery O2 Flow Rate FiO2 09/03/19 12:07 97.3 92 16 127/73 (91) 96 09/03/19 08:24 Room Air 09/03/19 08:00 98.0 79 18 128/75 (92) 97 09/03/19 04:00 98.6 71 20 124/79 (94) 97 09/03/19 00:00 98.4 76 20 120/75 (90) 98 09/02/19 21:00 Room Air 09/02/19 20:00 98.1 74 20 117/76 (90) 97 09/02/19 16:00 98.3 71 19 121/80 (94) 98 Intake and Output 09/02/19 09/03/19 19:00 07:00 Intake Total 600 ml 300 ml Output Total 600 ml 550 ml Balance 0 ml -250 ml Intake Oral 300 ml IV Total 200 ml Other 400 ml Output Urine Total 600 ml 550 ml Laboratory Tests 09/03/19 05:50: White Blood Count 9.0, Red Blood Count 3.98L, Hemoglobin 9.9L, Hematocrit 32.7L , Mean Corpuscular Volume 82, Mean Corpuscular Hemoglobin 24.9L, Mean Corpuscular Hemoglobin Concent 30.3L, Red Cell Distribution Width 18.2H, Platelet Count 232, Mean Platelet Volume 5.3L, Neutrophils (%) (Auto) 70.1, Lymphocytes (%) (Auto) 21.2, Monocytes (%) (Auto) 5.9, Eosinophils (%) (Auto) 1.4, Basophils (%) (Auto) 1.4, Sodium Level 134L, Potassium Level 4.1, Chloride Level 97L, Carbon Dioxide Level 27, Anion Gap 10, Blood Urea Nitrogen 15, Creatinine 1.1, Estimat Glomerular Filtration Rate > 60, Glucose Level 102, Calcium Level 9.1, Magnesium Level 2.1 Height (Feet): 5 Height (Inches): 7.00 Weight (Pounds): 137 Sienna Georges M.D. Sep 03, 2019 13:01
--- NOTE | 2019-09-03 15:01 | Surgery Progress Note ---
Surgery Progress Note Subjective Additional Comments labs noted exam stable comfortable no n/v/f/c Objective Last 24 Hour Vital Signs Date Time Temp Pulse Resp B/P (MAP) Pulse Ox O2 Delivery O2 Flow Rate FiO2 09/03/19 12:07 97.3 92 16 127/73 (91) 96 09/03/19 08:24 Room Air 09/03/19 08:00 98.0 79 18 128/75 (92) 97 09/03/19 04:00 98.6 71 20 124/79 (94) 97 09/03/19 00:00 98.4 76 20 120/75 (90) 98 09/02/19 21:00 Room Air 09/02/19 20:00 98.1 74 20 117/76 (90) 97 09/02/19 16:00 98.3 71 19 121/80 (94) 98 I&O Intake and Output 09/02/19 09/03/19 19:00 07:00 Intake Total 600 ml 300 ml Output Total 600 ml 550 ml Balance 0 ml -250 ml Intake Oral 300 ml IV Total 200 ml Other 400 ml Output Urine Total 600 ml 550 ml Dressing: other Wound: other Drains: other Cardiovascular: RSR Respiratory: decreased breath sounds Abdomen: soft, non-tender, present bowel sounds Extremities: no cyanosis Laboratory Tests Test 09/03/19 05:50 White Blood Count 9.0 K/UL (4.8-10.8) Red Blood Count 3.98 M/UL (4.70-6.10) L Hemoglobin 9.9 G/DL (14.2-18.0) L Hematocrit 32.7 % (42.0-52.0) L Mean Corpuscular Volume 82 FL (80-99) Mean Corpuscular Hemoglobin 24.9 PG (27.0-31.0) L Mean Corpuscular Hemoglobin Concent 30.3 G/DL (32.0-36.0) L Red Cell Distribution Width 18.2 % (11.6-14.8) H Platelet Count 232 K/UL (150-450) Mean Platelet Volume 5.3 FL (6.5-10.1) L Neutrophils (%) (Auto) 70.1 % (45.0-75.0) Lymphocytes (%) (Auto) 21.2 % (20.0-45.0) Monocytes (%) (Auto) 5.9 % (1.0-10.0) Eosinophils (%) (Auto) 1.4 % (0.0-3.0) Basophils (%) (Auto) 1.4 % (0.0-2.0) Sodium Level 134 MMOL/L (136-145) L Potassium Level 4.1 MMOL/L (3.5-5.1) Chloride Level 97 MMOL/L (98-107) L Carbon Dioxide Level 27 MMOL/L (21-32) Anion Gap 10 mmol/L (5-15) Blood Urea Nitrogen 15 mg/dL (7-18) Creatinine 1.1 MG/DL (0.55-1.30) Estimat Glomerular Filtration Rate > 60 mL/min (>60) Glucose Level 102 MG/DL (74-106) Calcium Level 9.1 MG/DL (8.5-10.1) Magnesium Level 2.1 MG/DL (1.8-2.4) Plan Problems: (1) Left leg pain Assessment & Plan: Patient presented admission complaining of left leg pain. On evaluation there is deformity left lower extremity plain films reviewed and obvious deformity noted as the femoral proximal is dislocated from the shaft. Patient is nonambulatory at baseline per report. He is somewhat cooperative examined with exam but a poor historian. Multiple skin concerns identified. Pt presented on admission with multiple Pressure Injuries, Bilat foot drop. Historical scar noted to L Hip Large Full Thickness Pressure Injury Buttocks with undermining and tunneling. Wound has irregular borders extends from Sacrum to L ischium and base of Scrotum,laterally from Outer R to Outer L gluteus.(L)18.9cm x (W)18.5cm x (D) 3.7cm, undermining clockwise 10-3 by 5.9cm @3o'clock,Tunneling clockwise @6o' clock by 2.7cm.Scattered Biofilm with [place] granulation at base of wound ,bone is palpable in tunneled and undermined areas. At distal base of wound, at scrotum is an area of slough-size of Quarter. Small amt non-odorous serous exudate.Periwound is pink with scattered brownish skin tone.( Full thickness Pressure injury R Ischium(L)9.5cm x (W)9.7cm x (D)4.2cm, Tunneling clockwise into perineum at 7o'clock by 5.3cm. Base of wound has scattered slough. Bone is palpable . Small amt seropurulent exudate. Mild odor which resolved post cleansing of wound.Erythema noted along edges. Additional area of slough noted periwound along borders clockwise @3-4o'clock. Non-Blanching erythema noted to Protruding bony prominence L Hip. Dry, loosening eschar lateral L tibia. (L)1.1cm x (W)0.4cm.[place] epithelial along borders. Stable dry, brown eschar noted to medial L tibia(L)4.3cm x (W)1cm. Stable dry eschar noted to Plantar L Heel. (L)4.5cm x (W)2cm. Periwound is boggy but blanchable.Historical scar alson noted periwound. Full thickness pressure injury Plantar R Heel (L)1.2cm x (W)2.5cm x (D)0.2cm. 80 % pink granulation,20% slough at base of wound. Edges are macerated. Small amt non-odorous serous exudate. Periwound is boggy but blanchable. Tx.Plan: Cleanse wound Buttocks with Saline. Loosely Pack wound including undermined areas with Hydrogel impregnated Kerlix.Apply Moisture Barrier Paste along borders. Cover with ABD Pads and secure with Tegaderm Daily and prn. Cleanse R Ischial Wound with Saline. Loosely pack with Hydrogel Impregnated Kerlix. Apply Moisture Barrier Periwound. Cover with ABD Pad and secure with Tegaderm Daily and prn. Apply Cavilon Skin Barrier to L Hip Bony Protrusion (Do Not Rub/ Massage area). Cover with Optifoam drsg. Change every 3 days and prn. Apply Betadine to Medial and lateral L Tibial wounds. Cover with Optifoam drsg every 3 days and prn. Apply Betadine to Plantar L Heel wound. Cover with Optifoam drsg. Change every 3 days and prn. Apply Betadine to Plantar R heel wound. Cover with Optifoam drsg every 3 days and prn. Reposition at least every 2hours or as tolerated. Place pillow between knees. Off-Load Heels with Pillow. APM/SUMI Mattress overlay. (2) Femur fracture Assessment & Plan: There is an old amputation defect across the mid femoral shaft. The mid to distal femur is unremarkable with normal articulation at the knee. The proximal femur including the femoral head is not visualized likely resected. There is deformity of the left hip/acetabulum likely posttraumatic. Adjacent heterotopic ossification noted. Surrounding soft tissue is normal. 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 can be done ioutpatient as this is chronic ostomy prolapse stable loop and functional (3) Urinary tract infection (4) Sacral decubitus ulcer Assessment & Plan: Patient with a prolapsed loop ostomy identified. Still functional viable reducible. outpt follow up for revision (5) Paraplegia (6) Ileostomy prolapse Assessment & Plan: loop ileostomy prolapse noted. distal limb prolapsed proximal mild with gas and stool output. reducible easily at bedside but prolapse easily no n/v/f/c functional recommend elective repair Cornelius Salgado Sep 03, 2019 15:01
[2019-09-03 15:49] VITALS: BP 131/82
--- NOTE | 2019-09-03 17:04 | Infectious Diseases Prog Note ---
Assessment/Plan Assessment/Plan ASSESSMENT AND PLAN: 1. 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 endocarditis, ? mrsa/ proteus sacral wound infection, sepsis, leukocytosis, fevers, mrsa colonization, ARF - s/p ertapenem and doxycycline po - stable off abx - surveillance blood cultures - negative - wound care per surgery - monitor labs - TTE without vegetations - leukocytosis resolved - slt elevated yesterday but today wnl - will sign off, call if any questions 2. Paraplegia. 3. Chronic catheter. 4. Sacral wound. 5. Anemia. 6. No history of diabetes or hypertension. 7. Pain management per primary care team. 8. No known allergies. 9. Social history is negative. 10. Family history is contributory. 11. MAR was noted. 12. Case discussed with RN. Subjective Constitutional: Denies: fever HEENT: Denies: congestion Respiratory: Denies: shortness of breath Cardiovascular: Denies: chest pain Gastrointestinal/Abdominal: Denies: vomiting Neurologic: Denies: headache Skin: Denies: rash Hematologic: Denies: bleeding Musculoskeletal: Denies: pain Allergies: Coded Allergies: No Known Allergies (Unverified , 08/15/19) Objective Vital Signs Last 24 Hour Vital Signs Date Time Temp Pulse Resp B/P (MAP) Pulse Ox O2 Delivery O2 Flow Rate FiO2 09/03/19 15:49 98.6 89 18 131/82 (98) 98 09/03/19 12:07 97.3 92 16 127/73 (91) 96 09/03/19 08:24 Room Air 09/03/19 08:00 98.0 79 18 128/75 (92) 97 09/03/19 04:00 98.6 71 20 124/79 (94) 97 09/03/19 00:00 98.4 76 20 120/75 (90) 98 09/02/19 21:00 Room Air 09/02/19 20:00 98.1 74 20 117/76 (90) 97 Height (Feet): 5 Height (Inches): 7.00 Weight (Pounds): 137 General Appearance: no acute distress HEENT: normocephalic, atraumatic, anicteric, mucous membranes moist Respiratory/Chest: lungs clear, normal breath sounds, no respiratory distress, no accessory muscle use Cardiovascular: normal rate, regular rhythm, no gallop/murmur, no JVD Abdomen: normal bowel sounds, soft, non tender, no organomegaly, non distended Genitourinary: other - + donohue - urine slt cloudy Extremities: no cyanosis Skin: no rash 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 FINDINGS: A single one view chest is obtained. Vascularity is normal. The lung hess are clear bilaterally. Cardiac and mediastinal silhouette are within normal limits. CP angles are sharp. The bony thorax appear unremarkable. IMPRESSION: NO ACUTE CARDIOPULMONARY DISEASE. Microbiology Date/Time Source Procedure Growth Status 08/18/19 16:45 Blood Blood Culture - Final NO GROWTH AFTER 5 DAYS Complete 08/15/19 18:50 Nasopharynx Coronavirus COVID-19 PCR (GENE) - Final Complete 08/19/19 15:14 Urine,Clean Catch Urine Culture - Final NO GROWTH AFTER 48 HOURS Complete 08/16/19 18:20 Sacral Wound Gram Stain - Final Complete 08/16/19 18:20 Wound Culture - Final Staphylococcus Aureus - Mrsa Proteus Mirabilis Complete Laboratory Tests Test 09/03/19 05:50 White Blood Count 9.0 K/UL (4.8-10.8) Red Blood Count 3.98 M/UL (4.70-6.10) L Hemoglobin 9.9 G/DL (14.2-18.0) L Hematocrit 32.7 % (42.0-52.0) L Mean Corpuscular Volume 82 FL (80-99) Mean Corpuscular Hemoglobin 24.9 PG (27.0-31.0) L Mean Corpuscular Hemoglobin Concent 30.3 G/DL (32.0-36.0) L Red Cell Distribution Width 18.2 % (11.6-14.8) H Platelet Count 232 K/UL (150-450) Mean Platelet Volume 5.3 FL (6.5-10.1) L Neutrophils (%) (Auto) 70.1 % (45.0-75.0) Lymphocytes (%) (Auto) 21.2 % (20.0-45.0) Monocytes (%) (Auto) 5.9 % (1.0-10.0) Eosinophils (%) (Auto) 1.4 % (0.0-3.0) Basophils (%) (Auto) 1.4 % (0.0-2.0) Sodium Level 134 MMOL/L (136-145) L Potassium Level 4.1 MMOL/L (3.5-5.1) Chloride Level 97 MMOL/L (98-107) L Carbon Dioxide Level 27 MMOL/L (21-32) Anion Gap 10 mmol/L (5-15) Blood Urea Nitrogen 15 mg/dL (7-18) Creatinine 1.1 MG/DL (0.55-1.30) Estimat Glomerular Filtration Rate > 60 mL/min (>60) Glucose Level 102 MG/DL (74-106) Calcium Level 9.1 MG/DL (8.5-10.1) Magnesium Level 2.1 MG/DL (1.8-2.4) Current Medications Medications (Trade) Dose Ordered Sig/Mya Route PRN Reason Start Time Stop Time Status Last Admin Dose Admin Acetaminophen (Tylenol) 650 mg Q6H PRN ORAL Temp >100.5 08/16/19 00:45 09/15/19 00:44 08/27/19 16:22 Heparin Sodium (Porcine) (Heparin 5000 units/ml) 5,000 units EVERY 12 HOURS SUBQ 08/16/19 09:00 09/30/19 08:59 09/03/19 08:52 Sharif Painting MD Sep 03, 2019 17:04
--- NOTE | 2019-09-03 18:57 | NUR ---
HAND-OFF: Report given to
--- NOTE | 2019-09-03 19:20 | NUR ---
NURSE NOTES: received report from samanta cheung. patient is on bed ,awake. filipino speaking. on room air. no sob. with iv line on the right forearm, saline lock. with bilateral soft wrist restraints. no injury noted. colostomy in placed. noted with donohue catheter draining well. reiterated to call and ask for assistance. call light and light button within easy reach. bed locked and in lowest position. will continue plan of care.
[2019-09-03 20:00] VITALS: BP 131/73
[2019-09-04] VITALS: BP 122/68
[2019-09-04 04:00] VITALS: BP 111/68
[2019-09-04 07:13] LABS: BASOPHILS % (AUTO) 1.3 % (0.0-2.0); EOSINOPHILS % (AUTO) 0.7 % (0.0-3.0); HEMOGLOBIN 11.2 G/DL (14.2-18.0); MEAN CORPUSCULAR VOLUME 83 FL (80-99); MONOCYTES % (AUTO) 5.2 % (1.0-10.0); NEUTROPHILS % (AUTO) 74.9 % (45.0-75.0); PLATELET COUNT 250 K/UL (150-450); RED BLOOD COUNT 4.58 M/UL (4.70-6.10); RED CELL DISTRIBUTION WIDTH 18.8 % (11.6-14.8); WHITE BLOOD COUNT 8.3 K/UL (4.8-10.8)
--- NOTE | 2019-09-04 07:33 | NUR ---
HAND-OFF: Report given to samanta harrell.
[2019-09-04 07:38] LABS: ANION GAP 13 mmol/L (5-15); BLOOD UREA NITROGEN 18 mg/dL (7-18); CALCIUM 9.5 MG/DL (8.5-10.1); CARBON DIOXIDE 27 MMOL/L (21-32); CHLORIDE 96 MMOL/L (98-107); POTASSIUM 3.7 MMOL/L (3.5-5.1); SODIUM 136 MMOL/L (136-145)
[2019-09-04 08:00] VITALS: BP 114/74
--- NOTE | 2019-09-04 08:05 | NUR ---
NURSE NOTES: pt is in his bed asleep. no facial grimacing for pain and discomfort noted. respiration is even and unlabored. no acute distress noted. call light is place within reach, will continue to follow plan of care.
[2019-09-04] MEDS: Heparin 5000 units/ml inj SUBQ SCH ×3 (08:56→20:19)
[2019-09-04 12:00] VITALS: BP 104/70
--- NOTE | 2019-09-04 12:07 | Nephrology Progress Note ---
Assessment/Plan Plan #Maxwell - likely due to vancomycin toxicity #sepsis due to UTI #hypokalemia #Hyponatremia #hypomagnesemia #history for femur amputation #Left leg pain #Hx Left leg amputation #Paraplegia #Sacral decub ulcer #anemia - Labs reviewed - - Cr downtrending - check renal US-> IMPRESSION: Mildly echogenic right kidney. This is nonspecific but may suggest renal parenchymal disease. No hydronephrosis. - placed donohue - Dc ivf - replete lytes - DCed midodrine to 5mg TID - DC VANCO - monitor mag, phos, BMP daily - surgery eval - pain control - monitor WBC - monitor UOP - avoid nephrotoxins Time spent 70 minutes, greater than 50% on care coordination and counseling Subjective ROS Limited/Unobtainable: Yes Subjective Cr downtrending electrolytes stable Dced vanco check renal US-> IMPRESSION: Mildly echogenic right kidney. This is nonspecific but may suggest renal parenchymal disease. No hydronephrosis. Objective Objective Last 24 Hour Vital Signs Date Time Temp Pulse Resp B/P (MAP) Pulse Ox O2 Delivery O2 Flow Rate FiO2 09/04/19 09:00 Room Air 09/04/19 08:00 97.7 80 18 114/74 (87) 96 09/04/19 04:00 98.0 76 20 111/68 (82) 95 09/04/19 00:00 98.0 78 20 122/68 (86) 95 09/03/19 21:00 Room Air 09/03/19 20:00 97.9 74 20 131/73 (92) 95 09/03/19 15:49 98.6 89 18 131/82 (98) 98 09/03/19 12:07 97.3 92 16 127/73 (91) 96 Intake and Output 09/03/19 09/04/19 19:00 07:00 Intake Total 200 ml 200 ml Output Total 0 ml 450 ml Balance 200 ml -250 ml Intake Oral 200 ml 200 ml Output Urine Total 450 ml Stool Total 0 ml Laboratory Tests 09/04/19 05:40: White Blood Count 8.3, Red Blood Count 4.58L, Hemoglobin 11.2L, Hematocrit 38.0L , Mean Corpuscular Volume 83, Mean Corpuscular Hemoglobin 24.5L, Mean Corpuscular Hemoglobin Concent 29.6L, Red Cell Distribution Width 18.8H, Platelet Count 250, Mean Platelet Volume 5.7L, Neutrophils (%) (Auto) 74.9, Lymphocytes (%) (Auto) 18.0L, Monocytes (%) (Auto) 5.2, Eosinophils (%) (Auto) 0.7, Basophils (%) (Auto) 1.3, Sodium Level 136, Potassium Level 3.7, Chloride Level 96L, Carbon Dioxide Level 27, Anion Gap 13, Blood Urea Nitrogen 18, Creatinine 1.0, Estimat Glomerular Filtration Rate > 60, Glucose Level 92, Calcium Level 9.5, Magnesium Level 2.0 Height (Feet): 5 Height (Inches): 7.00 Weight (Pounds): 137 Sienna Georges M.D. Sep 04, 2019 12:07
--- NOTE | 2019-09-04 12:27 | NUR ---
RD ASSESSMENT & RECOMMENDATIONS SEE CARE ACTIVITY FOR COMPLETE ASSESSMENT DAILY ESTIMATED NEEDS: Needs based on Advanced wounds/ 54kg 30-35 kcals/kg 3989-4050 total kcals 1.5-2.0 g protein/kg 81-108 g total protein 25-30 mL/kg 0713-0906 total fluid mLs NUTRITION DIAGNOSIS: Increased kcal/prot/micronutrients needs R/T wound healing as evidenced by pt admitted w/ advanced wounds, including full thickness wounds @ buttocks, R ischium (tunneling, bone palpable), and plantar R Heel, now w/ improving Po intake. CURRENT DIET:REGULAR, mech soft ground PO DIET RECOMMENDATIONS: REGULAR, texture as tolerated or per SPINNER CONTINUOUS + Ensure Enlive TID w/ meals ENTERAL NUTRITION RECOMMENDATIONS: CONSULT RD IF NONORAL FEEDING IS INDICATED -> initially w/ mostly refusing meals for extended period of time, now w/ improving PO intake, monitor PO intake closely. ADDITIONAL RECOMMENDATIONS: * Per SNF: HT=66" GU=038fnr (as of 08/14/19) -> vs current est CBW =96lbs (bedscale wt 55kg - wt of p200 adryan+pump) * Rec Kcal Count x 48 hrs to ensure nutritional needs are met * Monitor for continued improving PO intake/ * add appetite stimulant * 8oz whole milk TID (180kcal/8g prot each) + Ensure TID (350kcal/20g prot) * Wound healing: add MVI w/ mineral 1 tab QD, Vit C 500mg BID ZnSO4 220mg QD x 10 days, Amari 1pkt BID as tolerated
--- NOTE | 2019-09-04 12:54 | NUR ---
*-*DISCHARGE PLANNED*-* PATIENT HAS BEEN ACCEPTED BACK TO: [facility] P: [phone] [facility], WILL ACCEPT PATIENT TOMORROW 09/05/2019 ROOM# 316.C ALF.
--- NOTE | 2019-09-04 15:00 | NUR ---
CASE MANAGEMENT:REVIEW 09/02/19 SI;UTI. BACTEREMIA. SEPSIS. ENCEPHALOPATHY. 98.9 91 20 130/78 96% ON RA WBC 11.5 K+ 3.4 MAG 1.6 ALB 2.8 IS;HEPARIN SUBQ MEDS SURG STATUS DCP;SNF PLACEMENT UPON ACCEPTANCE CASE MANAGEMENT:REVIEW 09/03/19 SI;UTI. BACTEREMIA. SEPSIS. ENCEPHALOPATHY. 98.6 92 20 131/73 96% ON RA NA 134 IS;HEPARIN SUBQ MEDS SURG STATUS DCP;SNF PLACEMENT UPON ACCEPTANCE CASE MANAGEMENT:REVIEW 09/04/19 SI;UTI. BACTEREMIA. SEPSIS. ENCEPHALOPATHY. 98.0 89 20 104/70 95% ON RA IS;HEPARIN SUBQ MEDS SURG STATUS DCP;SNF PLACEMENT UPON ACCEPTANCE DISCHARGE BARRIER; PLACEMENT DIFFICULTY D/T CANCELLED HMO PATIENT CURRENTLY HAS REGULAR MEDI-CINDY W/NO SECONDARY
[2019-09-04 16:00] VITALS: BP 120/78
--- NOTE | 2019-09-04 16:41 | NUR ---
NURSE NOTES:WOUND CARE FOLLOW-UP NOTES:Full Thickness Pressure injury with undermined borders Sacrum extending Longitudinal from sacrum into L ischium, laterally from Sacrum to outer L gluteus. Base of wound is moist and pink with scattered Biofilm.Wound is smaller in size. Moderate amt serous exudate, and wound is malodorous post cleansing.(L)15.7cm x (W)15.5cmx (D)0.8cm, undermining clockwise 10-12 by 3.8cm @12o'clock, undermining 1-3 by 2.7cm @2o'clock, small tunneled area at L Ischium by 0.9cm. Periwound with darker brown skin tone. No additional skin breakdown noted periwound, or along borders of wound. Mary shaped historical scar noted to R sacral/R gluteal area. Second Full Thickness wound R ischium (L)5.3cm x (W)5cmx (D)0.3cm. Base of wound is moist and pink with small amt Biofilm.Tunneling clockwise 9-12 by 3.3cm @10o'clock.Wound tunnels towards Sacral wound but tunneling is incomplete-does not penetrate wall of sacral wound. Tunneling clockwise @7'oclock by 1.4cm. Edges area otherwise flat and adherent to base of wound.Small amt serous exudate noted. Wound is malodorous. Bony Protrusion L hip . No erythema noted. Skin Barrier applied and covered with Optifoam drsg. Bony Protrusion R Hip . No evidence of skin breakdown. Skin Barrier applied and covered with Optifoam drsg. Stable dry brown eschar noted to medial L tibia . Non erythema or evidence of further skin breakdown noted periwound. Resolving Pressure injury Plantar R heel (L)1.1cm x (W)0.4cm. Base of wound is pink and moist. Borders are macerated. Kelid scarring periwound. Stable dry eschar plantar L heel(L)4.2cm x (W)3cm.Kelod scar periwound. No new skin concerns noted. Wound prevention protocols continued as care-planned . Skin BArrier applied to bony prominences such as both scapulae, Both hips/trochanteric areas, Knees, and malleoli.Pt has an APM/SUMI Mattress overlay on his bed and is being positioned within protocols and per pt's tolerance. Colostomy RLQ abd is functioning well. No evidence of Peristomal skin breakdown. New orders obtained from Dr. Salgado to cleanse wounds with Dakin's 0.125%. Plan is to initiate NPWT in a.m per orders from Surgeon. Communicated to Nurse in charge on unit.
--- NOTE | 2019-09-04 16:51 | General Progress Note ---
Assessment/Plan Status: stable, progressing Assessment/Plan: 59-year-old male with multiple medical problems including paraplegia, bedbound, dementia admitted with sepsis due to urinary tract infection and AMS. #UTI -> gram neg bacilli #Sepsis due to a UTI (fever, leukocytosis) - ID consult, Dr Freeman - observe off abx #Hyponatremia #Hypomagnesemia #Hypokalemia - replete prn - nephro consult, Dr Georges #Anemia - stable #Suspect OSMIN - trend cbc - transfuse for Hb < 7 #Left leg pain #Hx Left leg amputation #Paraplegia - ctm - pain control #Sacral decubitus ulcer, POA - offloading per rn protocl q2h - surgery consult for wound, appreciate recs and mgt #Toxic metabolic encephalopathy - tx as above - delirium precautions FENPPX DVTPPX: SCD, HSQ GI PPX: na Fluids: mIVF x 2L Diet: regular Lines: PT/OT: Code status: Full Dispo: SNF ([facility]) Reason for Continued Hospitalization: placement I spent 35 minutes spent on this encounter w/ >50% on care/coordination and counseling. Discussed with RN at bedside and consultants named above. Time of note may not reflect time patient was seen. Subjective Date patient seen: Sep 04, 2019 Time patient seen: 13:30 ROS Limited/Unobtainable: Yes Allergies: Coded Allergies: No Known Allergies (Unverified , 08/15/19) Subjective No acute o/n events Awaiting placement Sleeping, arousable, pain controlled Objective Last 24 Hour Vital Signs Date Time Temp Pulse Resp B/P (MAP) Pulse Ox O2 Delivery O2 Flow Rate FiO2 09/04/19 16:00 98.0 82 18 120/78 (92) 94 09/04/19 12:00 97.6 89 18 104/70 (81) 97 09/04/19 09:00 Room Air 09/04/19 08:00 97.7 80 18 114/74 (87) 96 09/04/19 04:00 98.0 76 20 111/68 (82) 95 09/04/19 00:00 98.0 78 20 122/68 (86) 95 09/03/19 21:00 Room Air 09/03/19 20:00 97.9 74 20 131/73 (92) 95 Intake and Output 09/03/19 09/04/19 19:00 07:00 Intake Total 200 ml 200 ml Output Total 0 ml 450 ml Balance 200 ml -250 ml Intake Oral 200 ml 200 ml Output Urine Total 450 ml Stool Total 0 ml Laboratory Tests 09/04/19 05:40: White Blood Count 8.3, Red Blood Count 4.58L, Hemoglobin 11.2L, Hematocrit 38.0L , Mean Corpuscular Volume 83, Mean Corpuscular Hemoglobin 24.5L, Mean Corpuscular Hemoglobin Concent 29.6L, Red Cell Distribution Width 18.8H, Platelet Count 250, Mean Platelet Volume 5.7L, Neutrophils (%) (Auto) 74.9, Lymphocytes (%) (Auto) 18.0L, Monocytes (%) (Auto) 5.2, Eosinophils (%) (Auto) 0.7, Basophils (%) (Auto) 1.3, Sodium Level 136, Potassium Level 3.7, Chloride Level 96L, Carbon Dioxide Level 27, Anion Gap 13, Blood Urea Nitrogen 18, Creatinine 1.0, Estimat Glomerular Filtration Rate > 60, Glucose Level 92, Calcium Level 9.5, Magnesium Level 2.0 Height (Feet): 5 Height (Inches): 7.00 Weight (Pounds): 137 Objective General Appearance: no apparent distress, other - in restraints EENT: PERRL/EOMI Cardiovascular: normal rate, regular rhythm Respiratory/Chest: lungs clear, normal breath sounds Abdomen: soft, [place] bag Genitourinary/Rectal: other Extremities: normal range of motion 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 Sep 04, 2019 16:51
--- NOTE | 2019-09-04 19:16 | NUR ---
HAND-OFF: Report given to Hernánag.
--- NOTE | 2019-09-04 19:21 | NUR ---
NURSE NOTES: Received report from TANJA Wade. Pt is awake, lying semi-garcia's; comfortably resting. No signs of acute distress noted. Pt denies any pain at this time. AOx2; Nigerien speaking. Checked IV site; patent and flushed. No erythema, bleeding, or infiltration noted. Multiple pressure ulcers noted with the dressing dry and intact. Restraints on; pt's tolerating well. Pt is also on special mattress. Bed at lowest position. Brakes on. Siderails up x3. Call light within reach. Will continue to monitor.
[2019-09-04 20:00] VITALS: BP 102/60
--- NOTE | 2019-09-04 21:32 | Surgery Progress Note ---
Surgery Progress Note Subjective Additional Comments foul odor noted dakins ordered plan VAC exam otherwise stable labs noted Objective Last 24 Hour Vital Signs Date Time Temp Pulse Resp B/P (MAP) Pulse Ox O2 Delivery O2 Flow Rate FiO2 09/04/19 20:52 Room Air 09/04/19 20:00 98.0 73 16 102/60 (74) 99 09/04/19 16:00 98.0 82 18 120/78 (92) 94 09/04/19 12:00 97.6 89 18 104/70 (81) 97 09/04/19 09:00 Room Air 09/04/19 08:00 97.7 80 18 114/74 (87) 96 09/04/19 04:00 98.0 76 20 111/68 (82) 95 09/04/19 00:00 98.0 78 20 122/68 (86) 95 I&O Intake and Output 09/03/19 09/04/19 19:00 07:00 Intake Total 200 ml 200 ml Output Total 0 ml 450 ml Balance 200 ml -250 ml Intake Oral 200 ml 200 ml Output Urine Total 450 ml Stool Total 0 ml Dressing: other Wound: other Drains: other Cardiovascular: RSR Respiratory: decreased breath sounds Abdomen: soft, present bowel sounds Extremities: no cyanosis Laboratory Tests Test 09/04/19 05:40 White Blood Count 8.3 K/UL (4.8-10.8) Red Blood Count 4.58 M/UL (4.70-6.10) L Hemoglobin 11.2 G/DL (14.2-18.0) L Hematocrit 38.0 % (42.0-52.0) L Mean Corpuscular Volume 83 FL (80-99) Mean Corpuscular Hemoglobin 24.5 PG (27.0-31.0) L Mean Corpuscular Hemoglobin Concent 29.6 G/DL (32.0-36.0) L Red Cell Distribution Width 18.8 % (11.6-14.8) H Platelet Count 250 K/UL (150-450) Mean Platelet Volume 5.7 FL (6.5-10.1) L Neutrophils (%) (Auto) 74.9 % (45.0-75.0) Lymphocytes (%) (Auto) 18.0 % (20.0-45.0) L Monocytes (%) (Auto) 5.2 % (1.0-10.0) Eosinophils (%) (Auto) 0.7 % (0.0-3.0) Basophils (%) (Auto) 1.3 % (0.0-2.0) Sodium Level 136 MMOL/L (136-145) Potassium Level 3.7 MMOL/L (3.5-5.1) Chloride Level 96 MMOL/L (98-107) L Carbon Dioxide Level 27 MMOL/L (21-32) Anion Gap 13 mmol/L (5-15) Blood Urea Nitrogen 18 mg/dL (7-18) Creatinine 1.0 MG/DL (0.55-1.30) Estimat Glomerular Filtration Rate > 60 mL/min (>60) Glucose Level 92 MG/DL (74-106) Calcium Level 9.5 MG/DL (8.5-10.1) Magnesium Level 2.0 MG/DL (1.8-2.4) Plan Problems: (1) Left leg pain Assessment & Plan: Patient presented admission complaining of left leg pain. On evaluation there is deformity left lower extremity plain films reviewed and obvious deformity noted as the femoral proximal is dislocated from the shaft. Patient is nonambulatory at baseline per report. He is somewhat cooperative examined with exam but a poor historian. Multiple skin concerns identified. Pt presented on admission with multiple Pressure Injuries, Bilat foot drop. Historical scar noted to L Hip Large Full Thickness Pressure Injury Buttocks with undermining and tunneling. Wound has irregular borders extends from Sacrum to L ischium and base of Scrotum,laterally from Outer R to Outer L gluteus.(L)18.9cm x (W)18.5cm x (D) 3.7cm, undermining clockwise 10-3 by 5.9cm @3o'clock,Tunneling clockwise @6o' clock by 2.7cm.Scattered Biofilm with [place] granulation at base of wound ,bone is palpable in tunneled and undermined areas. At distal base of wound, at scrotum is an area of slough-size of Quarter. Small amt non-odorous serous exudate.Periwound is pink with scattered brownish skin tone.( Full thickness Pressure injury R Ischium(L)9.5cm x (W)9.7cm x (D)4.2cm, Tunneling clockwise into perineum at 7o'clock by 5.3cm. Base of wound has scattered slough. Bone is palpable . Small amt seropurulent exudate. Mild odor which resolved post cleansing of wound.Erythema noted along edges. Additional area of slough noted periwound along borders clockwise @3-4o'clock. Non-Blanching erythema noted to Protruding bony prominence L Hip. Dry, loosening eschar lateral L tibia. (L)1.1cm x (W)0.4cm.[place] epithelial along borders. Stable dry, brown eschar noted to medial L tibia(L)4.3cm x (W)1cm. Stable dry eschar noted to Plantar L Heel. (L)4.5cm x (W)2cm. Periwound is boggy but blanchable.Historical scar alson noted periwound. Full thickness pressure injury Plantar R Heel (L)1.2cm x (W)2.5cm x (D)0.2cm. 80 % pink granulation,20% slough at base of wound. Edges are macerated. Small amt non-odorous serous exudate. Periwound is boggy but blanchable. Full Thickness Pressure injury with undermined borders Sacrum extending Longitudinal from sacrum into L ischium, laterally from Sacrum to outer L gluteus. Base of wound is moist and pink with scattered Biofilm.Wound is smaller in size. Moderate amt serous exudate, and wound is malodorous post cleansing.(L)15.7cm x (W)15.5cmx (D)0.8cm, undermining clockwise 10-12 by 3.8cm @12o'clock, undermining 1-3 by 2.7cm @2o'clock, small tunneled area at L Ischium by 0.9cm. Periwound with darker brown skin tone. No additional skin breakdown noted periwound, or along borders of wound. Mary shaped historical scar noted to R sacral/R gluteal area. Second Full Thickness wound R ischium (L)5.3cm x (W)5cmx (D)0.3cm. Base of wound is moist and pink with small amt Biofilm.Tunneling clockwise 9-12 by 3.3cm @10o' clock.Wound tunnels towards Sacral wound but tunneling is incomplete-does not penetrate wall of sacral wound. Tunneling clockwise @7'oclock by 1.4cm. Edges area otherwise flat and adherent to base of wound.Small amt serous exudate noted. Wound is malodorous. Bony Protrusion L hip . No erythema noted. Skin Barrier applied and covered with Optifoam drsg. Bony Protrusion R Hip . No evidence of skin breakdown. Skin Barrier applied and covered with Optifoam drsg. Stable dry brown eschar noted to medial L tibia . Non erythema or evidence of further skin breakdown noted periwound. Resolving Pressure injury Plantar R heel (L)1.1cm x (W)0.4cm. Base of wound is pink and moist. Borders are macerated. Kelid scarring periwound. Stable dry eschar plantar L heel(L)4.2cm x (W)3cm.Kelod scar periwound. No new skin concerns noted. Wound prevention protocols continued as care- planned . Skin BArrier applied to bony prominences such as both scapulae, Both hips/trochanteric areas, Knees, and malleoli.Pt has an APM/SUMI Mattress overlay on his bed and is being positioned within protocols and per pt's tolerance. Colostomy RLQ abd is functioning well. No evidence of Peristomal skin breakdown. cleanse wounds with Dakin's 0.125%. Plan is to initiate NPWT in a.m . Communicated to Nurse in charge on unit. Tx.Plan: Cleanse wound Buttocks with Saline. Loosely Pack wound including undermined areas with Hydrogel impregnated Kerlix.Apply Moisture Barrier Paste along borders. Cover with ABD Pads and secure with Tegaderm Daily and prn. Cleanse R Ischial Wound with Saline. Loosely pack with Hydrogel Impregnated Kerlix. Apply Moisture Barrier Periwound. Cover with ABD Pad and secure with Tegaderm Daily and prn. Apply Cavilon Skin Barrier to L Hip Bony Protrusion (Do Not Rub/ Massage area). Cover with Optifoam drsg. Change every 3 days and prn. Apply Betadine to Medial and lateral L Tibial wounds. Cover with Optifoam drsg every 3 days and prn. Apply Betadine to Plantar L Heel wound. Cover with Optifoam drsg. Change every 3 days and prn. Apply Betadine to Plantar R heel wound. Cover with Optifoam drsg every 3 days and prn. Reposition at least every 2hours or as tolerated. Place pillow between knees. Off-Load Heels with Pillow. APM/SUMI Mattress overlay. (2) Femur fracture Assessment & Plan: There is an old amputation defect across the mid femoral shaft. The mid to distal femur is unremarkable with normal articulation at the knee. The proximal femur including the femoral head is not visualized likely resected. There is deformity of the left hip/acetabulum likely posttraumatic. Adjacent heterotopic ossification noted. Surrounding soft tissue is normal. 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 can be done ioutpatient as this is chronic ostomy prolapse stable loop and functional (3) Urinary tract infection (4) Sacral decubitus ulcer Assessment & Plan: Patient with a prolapsed loop ostomy identified. Still functional viable reducible. outpt follow up for revision (5) Paraplegia (6) Ileostomy prolapse Assessment & Plan: loop ileostomy prolapse noted. distal limb prolapsed proximal mild with gas and stool output. reducible easily at bedside but prolapse easily no n/v/f/c functional recommend elective repair Cornelius Salgado Sep 04, 2019 21:32
[2019-09-05] VITALS: BP 97/61
[2019-09-05 04:00] VITALS: BP 100/58
[2019-09-05 06:45] LABS: BASOPHILS % (AUTO) 1.3 % (0.0-2.0); EOSINOPHILS % (AUTO) 0.9 % (0.0-3.0); HEMATOCRIT 35.1 % (42.0-52.0); HEMOGLOBIN 10.5 G/DL (14.2-18.0); LYMPHOCYTES % (AUTO) 29.9 % (20.0-45.0); MEAN CORPUSCULAR VOLUME 83 FL (80-99); MONOCYTES % (AUTO) 7.7 % (1.0-10.0); NEUTROPHILS % (AUTO) 60.2 % (45.0-75.0); PLATELET COUNT 240 K/UL (150-450); RED BLOOD COUNT 4.22 M/UL (4.70-6.10); RED CELL DISTRIBUTION WIDTH 18.7 % (11.6-14.8); WHITE BLOOD COUNT 7.5 K/UL (4.8-10.8)
[2019-09-05 06:49] LABS: ANION GAP 9 mmol/L (5-15); BLOOD UREA NITROGEN 18 mg/dL (7-18); CARBON DIOXIDE 29 MMOL/L (21-32); CHLORIDE 97 MMOL/L (98-107); POTASSIUM 3.9 MMOL/L (3.5-5.1); SODIUM 135 MMOL/L (136-145)
--- NOTE | 2019-09-05 07:18 | NUR ---
NURSE NOTES: Received report from TANJA Barron. Received pt lying in hospital bed with p200 mattress. Pt is AAO x 1-2, bedbound, unable to make needs known. Pt is restless in bed with B soft wrist restraints in place with no s/s of skin breakdown, pulses palpable, and adequate circulation noted to distal extremities. Restraint order renewed this AM at 0421. Pt is on RA with no s/s of distress noted at this time. LBM on 09/04/2019 via colostomy. Stoma prolapse present, stable per surgery MD. Marcos catheter [address] secured and draining urine well. pIV on R FA at 22 g TKO. Pt has multiple wounds with dressing changes done yesterday 09/04/2019. Pt is planned for DC to SNF to [facility] today. Will continue POC.
--- NOTE | 2019-09-05 07:31 | NUR ---
HAND-OFF: Report given to TANJA Whittaker. Pt is sleeping and in stable condition. Plan of care endorsed.
[2019-09-05 08:00] VITALS: BP 99/66
--- NOTE | 2019-09-05 08:36 | Nephrology Progress Note ---
Assessment/Plan Plan #Maxwell - likely due to vancomycin toxicity #sepsis due to UTI #hypokalemia #Hyponatremia #hypomagnesemia #history for femur amputation #Left leg pain #Hx Left leg amputation #Paraplegia #Sacral decub ulcer #anemia - Labs reviewed - - Cr downtrending - check renal US-> IMPRESSION: Mildly echogenic right kidney. This is nonspecific but may suggest renal parenchymal disease. No hydronephrosis. - placed donohue - Dc ivf - replete lytes - DCed midodrine to 5mg TID - DC VANCO - monitor mag, phos, BMP daily - surgery eval - pain control - monitor WBC - monitor UOP - avoid nephrotoxins Time spent 70 minutes, greater than 50% on care coordination and counseling Subjective ROS Limited/Unobtainable: Yes Subjective Cr downtrending electrolytes stable Dced vanco check renal US-> IMPRESSION: Mildly echogenic right kidney. This is nonspecific but may suggest renal parenchymal disease. No hydronephrosis. Objective Objective Last 24 Hour Vital Signs Date Time Temp Pulse Resp B/P (MAP) Pulse Ox O2 Delivery O2 Flow Rate FiO2 09/05/19 04:00 98.1 68 17 100/58 (72) 97 09/05/19 00:00 98.2 70 17 97/61 (73) 96 09/04/19 20:52 Room Air 09/04/19 20:00 98.0 73 16 102/60 (74) 99 09/04/19 16:00 98.0 82 18 120/78 (92) 94 09/04/19 12:00 97.6 89 18 104/70 (81) 97 09/04/19 09:00 Room Air Intake and Output 09/04/19 09/05/19 19:00 07:00 Intake Total 436 ml Output Total 950 ml 300 ml Balance -514 ml -300 ml Intake Oral 436 ml Output Urine Total 950 ml 300 ml # Voids 1 Laboratory Tests 09/05/19 05:50: White Blood Count 7.5, Red Blood Count 4.22L, Hemoglobin 10.5L, Hematocrit 35.1L , Mean Corpuscular Volume 83, Mean Corpuscular Hemoglobin 24.8L, Mean Corpuscular Hemoglobin Concent 29.9L, Red Cell Distribution Width 18.7H, Platelet Count 240, Mean Platelet Volume 6.4L, Neutrophils (%) (Auto) 60.2, Lymphocytes (%) (Auto) 29.9, Monocytes (%) (Auto) 7.7, Eosinophils (%) (Auto) 0.9, Basophils (%) (Auto) 1.3, Sodium Level 135L, Potassium Level 3.9, Chloride Level 97L, Carbon Dioxide Level 29, Anion Gap 9, Blood Urea Nitrogen 18, Creatinine 1.0, Estimat Glomerular Filtration Rate > 60, Glucose Level 105, Calcium Level 9.0, Magnesium Level 1.9 Height (Feet): 5 Height (Inches): 7.00 Weight (Pounds): 137 Sienna Georges M.D. Sep 05, 2019 08:36
[2019-09-05] MEDS ORDERED: Dakin's 0.125% Soln (Quarter Strength) 16oz TOPIC SCH (09:00)
[2019-09-05] MEDS: Heparin 5000 units/ml inj SUBQ SCH (09:23)
--- NOTE | 2019-09-05 10:32 | NUR ---
*-*DISCHARGE PLANNED*-* PATIENT HAS BEEN ACCEPTED AND WILL BE DISCHARGED BACK TO: [facility] P: [phone] FOR NURSE TO NURSE REPORT ROOM# 316.C CORRECTION. [facility] SET FOR 11:30AM, S/W SRUTHI [id number] S/W PATIENT GRANDDAUGHTER, HANNAH BAY, WHO IS IN AGREEMENT WITH DISCHARGE PLAN.
--- NOTE | 2019-09-05 12:30 | NUR ---
NURSE NOTES: Pt is in stable condition for DC back to [facility] today. Pt is AAO x 1-2, VSS, confused, unable to make needs known, nonambulatory on bedrest, on RA with no s/s of respiratory distress or c/o pain at this time. Pt has colostomy to RLQ. Pt has donohue catheter 16fr in place for neurogenic bladder. Multiple wounds noted to sacrum, L tibia, and bilateral heels. Wound photos taken for record. Reconciled belongings with belongings list and accounted for $406 in [place]air in patient's wallet. pIV on R FA removed. Skin with no s/s of infection. Per CM, pt's granddaughter Laura Joshua is aware and agreeable with DC. Report given to Clay of [facility] ambulance. Report given to TANJA Tillman service center supervisor at [facility].
--- NOTE | 2019-09-05 18:40 | Surgery Progress Note ---
Surgery Progress Note Subjective Additional Comments No acute events. Overall improving. Discharge planning for today. Wound VAC held given discharge plan. Can use initiate and facility. Objective Last 24 Hour Vital Signs Date Time Temp Pulse Resp B/P (MAP) Pulse Ox O2 Delivery O2 Flow Rate FiO2 09/05/19 09:00 Room Air 09/05/19 08:00 97.7 77 19 99/66 (77) 97 09/05/19 04:00 98.1 68 17 100/58 (72) 97 09/05/19 00:00 98.2 70 17 97/61 (73) 96 09/04/19 20:52 Room Air 09/04/19 20:00 98.0 73 16 102/60 (74) 99 I&O Intake and Output 09/04/19 09/05/19 19:00 07:00 Intake Total 436 ml Output Total 950 ml 300 ml Balance -514 ml -300 ml Intake Oral 436 ml Output Urine Total 950 ml 300 ml # Voids 1 Dressing: other Wound: other Drains: other Cardiovascular: RSR Respiratory: decreased breath sounds Abdomen: soft, non-tender, present bowel sounds Extremities: no cyanosis Laboratory Tests Test 09/05/19 05:50 White Blood Count 7.5 K/UL (4.8-10.8) Red Blood Count 4.22 M/UL (4.70-6.10) L Hemoglobin 10.5 G/DL (14.2-18.0) L Hematocrit 35.1 % (42.0-52.0) L Mean Corpuscular Volume 83 FL (80-99) Mean Corpuscular Hemoglobin 24.8 PG (27.0-31.0) L Mean Corpuscular Hemoglobin Concent 29.9 G/DL (32.0-36.0) L Red Cell Distribution Width 18.7 % (11.6-14.8) H Platelet Count 240 K/UL (150-450) Mean Platelet Volume 6.4 FL (6.5-10.1) L Neutrophils (%) (Auto) 60.2 % (45.0-75.0) Lymphocytes (%) (Auto) 29.9 % (20.0-45.0) Monocytes (%) (Auto) 7.7 % (1.0-10.0) Eosinophils (%) (Auto) 0.9 % (0.0-3.0) Basophils (%) (Auto) 1.3 % (0.0-2.0) Sodium Level 135 MMOL/L (136-145) L Potassium Level 3.9 MMOL/L (3.5-5.1) Chloride Level 97 MMOL/L (98-107) L Carbon Dioxide Level 29 MMOL/L (21-32) Anion Gap 9 mmol/L (5-15) Blood Urea Nitrogen 18 mg/dL (7-18) Creatinine 1.0 MG/DL (0.55-1.30) Estimat Glomerular Filtration Rate > 60 mL/min (>60) Glucose Level 105 MG/DL (74-106) Calcium Level 9.0 MG/DL (8.5-10.1) Magnesium Level 1.9 MG/DL (1.8-2.4) Plan Problems: (1) Left leg pain Assessment & Plan: Patient presented admission complaining of left leg pain. On evaluation there is deformity left lower extremity plain films reviewed and obvious deformity noted as the femoral proximal is dislocated from the shaft. Patient is nonambulatory at baseline per report. He is somewhat cooperative examined with exam but a poor historian. Multiple skin concerns identified. Pt presented on admission with multiple Pressure Injuries, Bilat foot drop. Historical scar noted to L Hip Large Full Thickness Pressure Injury Buttocks with undermining and tunneling. Wound has irregular borders extends from Sacrum to L ischium and base of Scrotum,laterally from Outer R to Outer L gluteus.(L)18.9cm x (W)18.5cm x (D) 3.7cm, undermining clockwise 10-3 by 5.9cm @3o'clock,Tunneling clockwise @6o' clock by 2.7cm.Scattered Biofilm with [place] granulation at base of wound ,bone is palpable in tunneled and undermined areas. At distal base of wound, at scrotum is an area of slough-size of Quarter. Small amt non-odorous serous exudate.Periwound is pink with scattered brownish skin tone.( Full thickness Pressure injury R Ischium(L)9.5cm x (W)9.7cm x (D)4.2cm, Tunneling clockwise into perineum at 7o'clock by 5.3cm. Base of wound has scattered slough. Bone is palpable . Small amt seropurulent exudate. Mild odor which resolved post cleansing of wound.Erythema noted along edges. Additional area of slough noted periwound along borders clockwise @3-4o'clock. Non-Blanching erythema noted to Protruding bony prominence L Hip. Dry, loosening eschar lateral L tibia. (L)1.1cm x (W)0.4cm.[place] epithelial along borders. Stable dry, brown eschar noted to medial L tibia(L)4.3cm x (W)1cm. Stable dry eschar noted to Plantar L Heel. (L)4.5cm x (W)2cm. Periwound is boggy but blanchable.Historical scar alson noted periwound. Full thickness pressure injury Plantar R Heel (L)1.2cm x (W)2.5cm x (D)0.2cm. 80 % pink granulation,20% slough at base of wound. Edges are macerated. Small amt non-odorous serous exudate. Periwound is boggy but blanchable. Full Thickness Pressure injury with undermined borders Sacrum extending Longitudinal from sacrum into L ischium, laterally from Sacrum to outer L gluteus. Base of wound is moist and pink with scattered Biofilm.Wound is smaller in size. Moderate amt serous exudate, and wound is malodorous post cleansing.(L)15.7cm x (W)15.5cmx (D)0.8cm, undermining clockwise 10-12 by 3.8cm @12o'clock, undermining 1-3 by 2.7cm @2o'clock, small tunneled area at L Ischium by 0.9cm. Periwound with darker brown skin tone. No additional skin breakdown noted periwound, or along borders of wound. Mary shaped historical scar noted to R sacral/R gluteal area. Second Full Thickness wound R ischium (L)5.3cm x (W)5cmx (D)0.3cm. Base of wound is moist and pink with small amt Biofilm.Tunneling clockwise 9-12 by 3.3cm @10o' clock.Wound tunnels towards Sacral wound but tunneling is incomplete-does not penetrate wall of sacral wound. Tunneling clockwise @7'oclock by 1.4cm. Edges area otherwise flat and adherent to base of wound.Small amt serous exudate noted. Wound is malodorous. Bony Protrusion L hip . No erythema noted. Skin Barrier applied and covered with Optifoam drsg. Bony Protrusion R Hip . No evidence of skin breakdown. Skin Barrier applied and covered with Optifoam drsg. Stable dry brown eschar noted to medial L tibia . Non erythema or evidence of further skin breakdown noted periwound. Resolving Pressure injury Plantar R heel (L)1.1cm x (W)0.4cm. Base of wound is pink and moist. Borders are macerated. Kelid scarring periwound. Stable dry eschar plantar L heel(L)4.2cm x (W)3cm.Kelod scar periwound. No new skin concerns noted. Wound prevention protocols continued as care- planned . Skin BArrier applied to bony prominences such as both scapulae, Both hips/trochanteric areas, Knees, and malleoli.Pt has an APM/SUMI Mattress overlay on his bed and is being positioned within protocols and per pt's tolerance. Colostomy RLQ abd is functioning well. No evidence of Peristomal skin breakdown. cleanse wounds with Dakin's 0.125%. Plan is to initiate NPWT in a.m . Communicated to Nurse in charge on unit. Tx.Plan: Cleanse wound Buttocks with Saline. Loosely Pack wound including undermined areas with Hydrogel impregnated Kerlix.Apply Moisture Barrier Paste along borders. Cover with ABD Pads and secure with Tegaderm Daily and prn. Cleanse R Ischial Wound with Saline. Loosely pack with Hydrogel Impregnated Kerlix. Apply Moisture Barrier Periwound. Cover with ABD Pad and secure with Tegaderm Daily and prn. Apply Cavilon Skin Barrier to L Hip Bony Protrusion (Do Not Rub/ Massage area). Cover with Optifoam drsg. Change every 3 days and prn. Apply Betadine to Medial and lateral L Tibial wounds. Cover with Optifoam drsg every 3 days and prn. Apply Betadine to Plantar L Heel wound. Cover with Optifoam drsg. Change every 3 days and prn. Apply Betadine to Plantar R heel wound. Cover with Optifoam drsg every 3 days and prn. Reposition at least every 2hours or as tolerated. Place pillow between knees. Off-Load Heels with Pillow. APM/SUMI Mattress overlay. (2) Femur fracture Assessment & Plan: There is an old amputation defect across the mid femoral shaft. The mid to distal femur is unremarkable with normal articulation at the knee. The proximal femur including the femoral head is not visualized likely resected. There is deformity of the left hip/acetabulum likely posttraumatic. Adjacent heterotopic ossification noted. Surrounding soft tissue is normal. 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 can be done ioutpatient as this is chronic ostomy prolapse stable loop and functional (3) Urinary tract infection (4) Sacral decubitus ulcer Assessment & Plan: Patient with a prolapsed loop ostomy identified. Still functional viable reducible. outpt follow up for revision (5) Paraplegia (6) Ileostomy prolapse Assessment & Plan: loop ileostomy prolapse noted. distal limb prolapsed proximal mild with gas and stool output. reducible easily at bedside but prolapse easily no n/v/f/c functional recommend elective repair Additional Comments Continue above care plan upon discharge. Can be seen outpatient for loop ileostomy prolapse revision Late entry time note does not reflect when patient was seen Cornelius Salgado Sep 05, 2019 18:40
--- NOTE | 2019-09-06 11:40 | Discharge Summary ---
Discharge Summary Hospital Course Date of Admission Aug 15, 2019 at 17:40 Date of Discharge Sep 05, 2019 at 12:35 Admitting Diagnosis Left Proximal Femur Fracture Reason for Hospitalization: Sepsis, IV antibiotics HPI Chino Castellanos is a 59 year old male who was admitted on Aug 15, 2019 at 17: 40 for sepsis Consultations Gastroenterology, nephrology, infectious disease, surgery Hospital Course 59-year-old male with multiple medical problems including paraplegia, bedbound, dementia admitted with sepsis due to urinary tract infection and AMS. Patient was placed on broad-spectrum IV antibiotics. He was evaluated by infectious disease who tailored antibiotics to oral medications based off microbiology results. Patient's leukocytosis at max was 14.6 and improved to 7.5 on day of discharge. Patient was found to have acute kidney injury with creatinine 3. Patient was evaluated by nephrology and diagnosed with vancomycin toxicity. With change of antibiotics kidney function improved, and on day of discharge patient's kidney function was normal. Patient was also managed for electrolyte abnormality while in the hospital, as well as receiving wound care and evaluation by surgery. Once patient completed course of treatment, patient was discharged to facility in stable condition. #UTI -> gram neg bacilli #Sepsis due to a UTI (fever, leukocytosis) - ID consult, Dr Freeman - observe off abx #Hyponatremia #Hypomagnesemia #Hypokalemia - replete prn - nephro consult, Dr Georges #Anemia - stable #Suspect OSMIN - trend cbc - transfuse for Hb < 7 #Left leg pain #Hx Left leg amputation #Paraplegia - ctm - pain control #Sacral decubitus ulcer, POA - offloading per rn protocl q2h - surgery consult for wound, appreciate recs and mgt #Toxic metabolic encephalopathy - tx as above - delirium precautions Discharge Medications Continued Medications: Acetaminophen* (Acetaminophen 325MG Tablet*) 325 Mg Tablet 650 MG ORAL Q6H PRN for For Pain, TAB (This prescription has been renewed) Doxycycline Monohydrate* (Doxycycline Monohydrate*) 100 Mg Capsule 100 MG ORAL TWICE A DAY for scheduled, #14 CAP 0 Refills (This prescription has been renewed) Ertapenem (Invanz) 1 Gm Vial 1 GM IM DAILY for scheduled for 3 Days, VIAL (This prescription has been renewed ) Heparin Sod (Porcine) (Heparin Sodium*) 5 000/1 Ml Vial 5000 UNITS SUBQ EVERY 12 HOURS for scheduled, VIAL (This prescription has been renewed) Discharge Condition Upon Discharge: stable Discharge Vital Signs Last Vital Signs Date Time Temp Pulse Resp B/P (MAP) Pulse Ox O2 Delivery O2 Flow Rate FiO2 09/05/19 09:00 Room Air 09/05/19 08:00 97.7 77 19 99/66 (19) 97 Discharge Disposition Patient was discharged to Discharge Diagnoses: (1) UTI (urinary tract infection) (2) Sepsis (3) Encephalopathy (4) Hyponatremia (5) Left leg pain (6) SEAN (acute kidney injury) Brooke Vuong DO Sep 06, 2019 11:40
== END 2019-09-05 12:35 | DRG 720 ==
LOC: EDBD 14:54 → EMR 17:09 → 4E 17:40 → EDBEDREQ 18:44 → 4E 21:30
DX: A41.9 Sepsis, unspecified organism (principal); N39.0 Urinary tract infection, site not specified; E87.1 Hypo-osmolality and hyponatremia; G82.20 Paraplegia, unspecified; G92 Toxic encephalopathy; N17.9 Acute kidney failure, unspecified; L89.159 Pressure ulcer of sacral region, unspecified stage; B96.89 Other specified bacterial agents as the cause of diseases classified elsewhere; B95.62 Methicillin resistant Staphylococcus aureus infection as the cause of diseases classified elsewhere; E83.42 Hypomagnesemia; E87.6 Hypokalemia; D50.8 Other iron deficiency anemias; M79.605 Pain in left leg; Z89.512 Acquired absence of left leg below knee; Z74.01 Bed confinement status; N18.9 Chronic kidney disease, unspecified; F03.90 Unspecified dementia, unspecified severity, without behavioral disturbance, psychotic disturbance, mood disturbance, and anxiety; K94.19 Other complications of enterostomy
CPT/HCPCS: 36415; 71045; 76770; 80048; 80053; 80202; 81003; 82533; 82962; 83605; 83735; 83930; 83935; 84100; 84300; 84443; 85025; 87040; 87070; 87081; 87086; 87181; 87205; 93306; 93971; 96361; 96365; 96375; 99285; J7030; J8499

== ENCOUNTER 2019-10-23 15:07 | Inpatient (IN) | payer MEDICAID ==
[2019-10-23] VITALS (26 sets, daily range): BP systolic 75–131; BP diastolic 44–74
[~2019-10-23] VITALS: Ht 170.2 cm; Wt 50.0 kg
[~2019-10-23 15:07] MED LIST: ACETAMINOPHEN325 M1 ORAL; ASCORBIC ACID500 MG ORAL; BACLOFEN10 MG ORAL; CRANBERRY450 M5 PO; DOCUSATE SODIU100 MG ORAL; DOXYCYCLINE MO100 MG ORAL; FERROUS SULFAT325 MG ORAL; GABAPENTIN400 MG ORAL; HEPARIN SO5000 UNIT2 SUBQ; INVANZ1 G1 IM; KLONOPIN0.5 MG ORAL; MIDODRINE HCL10 MG ORAL; MILK OF MA400 MG/51 ORAL; MULTIVITAMINS1 EAC2 ORAL; NORCO 10-325 T1 EACH ORAL; OMEPRAZOLE20 M2 ORAL; TRAMADOL HCL50 MG ORAL; ZINC SULFATE220 M1 ORAL
[2019-10-23] MEDS ORDERED: Sodium Chloride 2,200 ML IVLG ONE (15:15)
[2019-10-23] MEDS ORDERED: cefTRIAXone 2 GM in NS 110 ML IV ONE (15:15)
[2019-10-23] MEDS ORDERED: Omnipaque-300 100ml vial INJ PRN (15:15)
--- NOTE | 2019-10-23 15:25 | Emergency Room Report ---
History of Present Illness General Chief Complaint: General Complaint Source: Patient, Medical Record, EMS Present Illness HPI 59-year-old male with past medical history of paraplegia, sacral decubitus ulcer , anemia, hypertension, ESBL multidrug-resistant urinary tract infection sent from nursing home facility by ambulance for hypotension. Patient is altered. History is limited secondary to patient's altered mental status. The patient's symptoms were gradual onset, severity was moderate, duration since several days. Quality: Generalized weakness Past medical history: Paraplegia, sacral decubitus ulcer, anemia, hypertension, multidrug-resistant UTI Past surgical history: Colostomy Smoking: Unable to obtain Alcohol use: Unable to obtain Drug use: Unable to obtain Review of systems: Limited secondary to patient's altered mental status Physical Exam: GENERAL: Awake, chronically ill-appearing, no acute distress. Cachectic. Hypotensive. Afebrile. EYES: Pupils reactive. Conjunctiva clear. ENT: External nose and ear appear normal. Oropharynx clear. Head atraumatic. Dry mucous membranes NECK: No thyromegaly. No midline tenderness. Trach in place, c/d/i, no discharge or bleeding. LUNGS: Normal respiratory effort. Clear to auscultation. No stridor. No rales. No wheezes. CARDIAC: Regular rate and rhythm. Normal radial pulses bilaterally. No significant pedal edema. ABDOMEN: Soft, nontender, and nondistended. No rebound/guarding. No hepatosplenomegaly. Colostomy bag. Chronic indwelling donohue with thick sedimented foul smelling urine. + Soiled diaper. No diaper rash MSK: Poor muscle tone, contractures with rigidity in lower extremities. Extremities without asymmetric deformity or swelling. NEUROLOGIC: Awake. No truncal ataxia. GCS 14. protecting airway SKIN: Warm and dry. No cyanosis or urticaria present. - COORDINATION OF CARE Case was discussed with: Patient , Patient's Physician Any labs and imaging that were ordered were interpreted as part of the medical decision making: Medical Decision Making/Plan: Differential diagnosis includes sepsis / severe sepsis /septic shock , cellulitis , UTI, pneumonia , viral syndrome, gastroenteritis, emergent abdominal infection, among others. Vitals show hypotension. No compensatory tachycardia. Afebrile. Patients abdominal examination is benign, no evidence of emergent abdominal condition. He does have chronic indwelling Donohue catheter that has dark yellow , thick sedimented, malodorous urine. Unclear when the bag was last changed. UA is consistent with urinary tract infection. Urine culture sent. CXR shows no acute infiltrate or abnormalities. Central line was inserted secondary to hypotension refractory to fluids. Patient was a hard stick by RN requiring multiple attempts for IV access. This delayed administration of fluids. Levophed was started in ED 2/2 fluid refractory hypotension. Suspect cause of sepsis. Sepsis bundle initiated on arrival. Blood cultures, lactate drawn. Lactate was elevated 2.0, patient was given 30 cc/kg IV fluids by bolus. Troponin negative. Empiric antibiotics were started (rocephin per previous micro, vanco, zosyn) Patient will be admitted to the hospital for further care and evaluation. I spoke with Dr. Jewell for Dr Marx, and reviewed the patients presentation, workup, results, and treatment. They will admit the patient for further care and evaluation, and assume care of the patient at this time. - CRITICAL CARE STATEMENT - Critical care performed 45 minutes Time is exclusive of separately billable procedures. Time includes: direct patient care, patient reassessment, coordination of patient care, review of patient's medical records, medical consultation, family consultation regarding treatment decisions and documentation of patient care. Organ systems at risk: Cardiac / Circulatory /. Central Line Placement by me: Patient consented, sterilely draped, full prep, gown, glove, mask, time out performed. Maximal sterile barrier technique used. Anesthesia: 1% lidocaine locally Location: R IJ Device: Multiple lumen Technique: Seldinger technique. Secured with suture. Results: Venous return from all ports with easy saline flush. No complications. Compl : None Guide wire removed retrieved and disposed of. ED Procedural Ultrasound by me: Central line placed by me using concurrent ultrasound guidance. Real time image archived in the medical record confirms vascular anatomy. Chest X-ray 1V Interpreted by me: Central line 18cm in SVC, Normal soft tissue , No evidence of pneumothorax. Allergies: Coded Allergies: No Known Allergies (Unverified , 08/15/19) COVID-19 Screening Contact w/high risk pt: No Recent Travel to affected area: No Experienced COVID-19 symptoms?: No COVID-19 symptoms experienced: Fever (T>100.4F or >38C) COVID-19 Testing performed HVAC DESIGNER: No Nursing Documentation-PMH Hx Hypertension: Yes Hx COPD: Yes History Of Psychiatric Problem: Yes - ANXIETY Physical Exam Vital Signs Date Time Temp Pulse Resp B/P (MAP) Pulse Ox O2 Delivery O2 Flow Rate FiO2 10/23/19 14:59 98.6 80 16 92/55 (67) 96 Room Air Sp02 EP Interpretation: reviewed, normal Procedures Central Line Progress Central Line Placement by me: Patient consented, sterilely draped, full prep, gown, glove, mask, time out performed. Maximal sterile barrier technique used. Anesthesia: 1% lidocaine locally Location: Right IJ Device: Multiple lumen Technique: Seldinger technique. Secured with suture. Results: Venous return from all ports with easy saline flush. No complications. Compl : None Guide wire was retrieved and disposed of. Medical Decision Making Diagnostic Impression: Primary Impression: Sepsis Additional Impressions: Urinary tract infection in male Decubital ulcer Drug (multiple) resistant infection Encephalopathy Anemia Rhythm Strip Diag. Results Rhythm Strip Time: 15:12 EP Interpretation: yes Rate: 80 Rhythm: NSR, no PVC's, no ectopy Chest X-Ray Diagnostic Results Chest X-Ray Diagnostic Results : PA Scribe Text Chest X-Ray: Views: [ 1 ] view(s) Indication: Hypotension Findings: Normal heart size. Mediastinum normal. No infiltrate. Impression: No acute disease The X-ray(s) were independently viewed and interpreted contemporaneously Electronically signed by Sandy chisholm DO Chest X-Ray: Views: [ 1 ] view(s) Indication: Placement of central line Findings: Normal heart size. Mediastinum normal. No infiltrate Chest X-ray 1V Interpreted by me: Central line placed appropriately in SVC, Normal soft tissue, No evidence of pneumothorax. The X-ray(s) were independently viewed and interpreted contemporaneously Electronically signed by Sandy chisholm DO Diagnostic POCUS Bedside Ultrasound Diagnostics: Bedside US Exam performed: Other - central line Interpreted by Emergency Physi: Yes Comment ED Procedural Ultrasound by me: Central line placed by me using concurrent ultrasound guidance. Real time image archived in the medical record confirms vascular anatomy. Last Vital Signs Date Time Temp Pulse Resp B/P (MAP) Pulse Ox O2 Delivery O2 Flow Rate FiO2 10/23/19 15:12 80 16 Room Air 10/23/19 15:12 98.6 94/55 96 Disposition: ADMITTED INPATIENT Admit Decision Time: 16:00 Condition: Serious Sandy Rivera D.O. Oct 23, 2019 15:24
[2019-10-23 16:03] LABS: APPEARANCE,URINE SLIGHTLY CLOUDY; BILIRUBIN, URINE NEGATIVE (NEGATIVE); COLOR,URINE PALE YELLOW; GLUCOSE, URINE (UA) NEGATIVE (NEGATIVE); KETONES,URINE NEGATIVE (NEGATIVE); LEUKOCYTE ESTERASE ,URINE 3+ (NEGATIVE); NITRITE,URINE POSITIVE (NEGATIVE); PH,URINE 9 (4.5-8.0); PROTEIN,URINE 2+ (NEGATIVE); UROBILINOGEN,URINE NORMAL MG/DL (0.0-1.0)
[2019-10-23 16:06] LABS: INR 1.1 (0.9-1.1)
[2019-10-23 16:14] LABS: ANION GAP 9 mmol/L (5-15); BLOOD UREA NITROGEN 15 mg/dL (7-18); CALCIUM 9.2 MG/DL (8.5-10.1); CARBON DIOXIDE 27 MMOL/L (21-32); CHLORIDE 99 MMOL/L (98-107); CREATININE 0.8 MG/DL (0.55-1.30); POTASSIUM 3.7 MMOL/L (3.5-5.1); SODIUM 134 MMOL/L (136-145)
[2019-10-23 16:18] LABS: BASOPHILS % (AUTO) 1.6 % (0.0-2.0); EOSINOPHILS % (AUTO) 1.2 % (0.0-3.0); HEMOGLOBIN 8.2 G/DL (14.2-18.0); LYMPHOCYTES % (AUTO) 26.7 % (20.0-45.0); MEAN CORPUSCULAR VOLUME 83 FL (80-99); MONOCYTES % (AUTO) 5.1 % (1.0-10.0); NEUTROPHILS % (AUTO) 65.4 % (45.0-75.0); PLATELET COUNT 561 K/UL (150-450); RED BLOOD COUNT 3.15 M/UL (4.70-6.10); RED CELL DISTRIBUTION WIDTH 19.5 % (11.6-14.8); WHITE BLOOD COUNT 9.7 K/UL (4.8-10.8)
[2019-10-23 16:27] LABS: ALANINE AMINOTRANSFERASE 12 U/L (12-78); ALBUMIN 1.8 G/DL (3.4-5.0); ALBUMIN/GLOBULIN RATIO 0.3 (1.0-2.7); ALKALINE PHOSPHATASE 246 U/L (46-116); ASPARTATE AMINO TRANSFERASE 12 U/L (15-37); BILIRUBIN,TOTAL 0.3 MG/DL (0.2-1.0); CKMB 3.2 NG/ML (0.0-3.6); CREATINE KINASE 49 U/L (26-308)
[2019-10-23] MEDS ORDERED: Vancomycin 1 GM in NS 275 ML IVPB ONE (16:30)
[2019-10-23] MEDS ORDERED: Piperacillin/Tazobactam 3.375 GM in NS 110 ML IVPB ONE (16:30)
--- NOTE | 2019-10-23 17:05 | Diagnostic Imaging Report ---
Indication: Cough Technique: One view of the chest Comparison: none Findings: Lungs and pleural spaces are clear. Heart size is normal. Impression: No acute process
[2019-10-23] MEDS ORDERED: Albuterol/Ipratropium 3ml neb HHN PRN (17:30)
[2019-10-23] MEDS ORDERED: Lidocaine 1% Plain 30 ml INJ ONE ×2 (17:33→19:15)
[2019-10-23] MEDS ORDERED: clonazePAM 0.5mg tab ORAL SCH (18:00)
[2019-10-23] MEDS: Midodrine 10mg tab ORAL SCH (18:00)
--- NOTE | 2019-10-23 18:39 | Diagnostic Imaging Report ---
EXAM: XR Chest, 1 View CLINICAL HISTORY: LINE TECHNIQUE: Frontal view of the chest. COMPARISON: Chest radiograph On 10/23/2019 at 1532 hrs. FINDINGS: Hardware: Interval placement of a right internal jugular central venous catheter which terminates in the region of the SVC. Lungs/pleura: Right costophrenic angle is not entirely included in the [id number]. No focal consolidation. No pleural effusion or pneumothorax. Heart/mediastinum: Normal. No cardiomegaly. Soft tissues: Unremarkable. Bones: No acute fracture. Degenerative change and possible old traumatic change to the distal right clavicle. Degenerative changes of the left acromioclavicular joint. Upper abdomen: Cholecystectomy clips partially visualized. IMPRESSION: Interval placement of a right internal jugular central venous catheter which terminates in the region of the SVC.
--- NOTE | 2019-10-23 19:08 | Infectious Diseases Prog Note ---
Assessment/Plan Assessment/Plan Full consult dictated: A) 1) sepsis, shock, uti, 2) pmh noted 3) allergies - nkda P) 1) vancomycin, zosyn 2) check cultures, labs and chest x-ray 3) thank you Subjective Allergies: Coded Allergies: No Known Allergies (Unverified , 08/15/19) Objective Last 24 Hour Vital Signs Date Time Temp Pulse Resp B/P (MAP) Pulse Ox O2 Delivery O2 Flow Rate FiO2 10/23/19 18:20 98.6 68 16 129/66 99 Room Air 10/23/19 18:10 160/100 10/23/19 18:04 75/55 10/23/19 18:00 98.6 68 16 75/55 99 Room Air 10/23/19 17:59 80/51 10/23/19 17:15 98.6 68 16 75/44 99 Room Air 10/23/19 16:12 98.6 77 16 88/54 96 Room Air 10/23/19 15:12 80 16 Room Air 10/23/19 15:12 98.6 77 16 94/55 96 Room Air 10/23/19 14:59 98.6 80 16 92/55 (67) 96 Room Air Height (Feet): 5 Height (Inches): 8.00 Weight (Pounds): 160 Laboratory Tests Test 10/23/19 15:13 White Blood Count 9.7 K/UL (4.8-10.8) Red Blood Count 3.15 M/UL (4.70-6.10) L Hemoglobin 8.2 G/DL (14.2-18.0) L Hematocrit 26.0 % (42.0-52.0) L Mean Corpuscular Volume 83 FL (80-99) Mean Corpuscular Hemoglobin 26.1 PG (27.0-31.0) L Mean Corpuscular Hemoglobin Concent 31.7 G/DL (32.0-36.0) L Red Cell Distribution Width 19.5 % (11.6-14.8) H Platelet Count 561 K/UL (150-450) H Mean Platelet Volume 4.5 FL (6.5-10.1) L Neutrophils (%) (Auto) 65.4 % (45.0-75.0) Lymphocytes (%) (Auto) 26.7 % (20.0-45.0) Monocytes (%) (Auto) 5.1 % (1.0-10.0) Eosinophils (%) (Auto) 1.2 % (0.0-3.0) Basophils (%) (Auto) 1.6 % (0.0-2.0) Prothrombin Time 11.9 SEC (9.30-11.50) H Prothromb Time International Ratio 1.1 (0.9-1.1) Activated Partial Thromboplast Time 35 SEC (23-33) H Urine Color Pale yellow Urine Appearance Slightly cloudy Urine pH 9 (4.5-8.0) Urine Specific [place] 1.010 (1.005-1.035) Urine Protein 2+ (NEGATIVE) H Urine Glucose (UA) Negative (NEGATIVE) Urine Ketones Negative (NEGATIVE) Urine Blood 1+ (NEGATIVE) H Urine Nitrite Positive (NEGATIVE) H Urine Bilirubin Negative (NEGATIVE) Urine Urobilinogen Normal MG/DL (0.0-1.0) Urine Leukocyte Esterase 3+ (NEGATIVE) H Urine RBC 2-4 /HPF (0 - 0) H Urine WBC 5-10 /HPF (0 - 0) H Urine Squamous Epithelial Cells None /LPF (NONE/OCC) Urine Calcium Oxalate Crystals Few /LPF (NONE) Urine Amorphous Sediment Many /LPF (NONE) H Urine Bacteria Many /HPF (NONE) H Sodium Level 134 MMOL/L (136-145) L Potassium Level 3.7 MMOL/L (3.5-5.1) Chloride Level 99 MMOL/L (98-107) Carbon Dioxide Level 27 MMOL/L (21-32) Anion Gap 9 mmol/L (5-15) Blood Urea Nitrogen 15 mg/dL (7-18) Creatinine 0.8 MG/DL (0.55-1.30) Estimat Glomerular Filtration Rate > 60 mL/min (>60) Glucose Level 131 MG/DL (74-106) H Lactic Acid Level 2.00 mmol/L (0.4-2.0) Calcium Level 9.2 MG/DL (8.5-10.1) Total Bilirubin 0.3 MG/DL (0.2-1.0) Aspartate Amino Transf (AST/SGOT) 12 U/L (15-37) L Alanine Aminotransferase (ALT/SGPT) 12 U/L (12-78) Alkaline Phosphatase 246 U/L (46-116) H Total Creatine Kinase 49 U/L (26-308) Creatine Kinase MB 3.2 NG/ML (0.0-3.6) Creatine Kinase MB Relative Index 6.5 Troponin I 0.000 ng/mL (0.000-0.056) Total Protein 7.5 G/DL (6.4-8.2) Albumin 1.8 G/DL (3.4-5.0) L Globulin 5.7 g/dL Albumin/Globulin Ratio 0.3 (1.0-2.7) L Lipase 44 U/L (73-393) L Current Medications Medications (Trade) Dose Ordered Sig/Mya Route PRN Reason Start Time Stop Time Status Last Admin Dose Admin Acetaminophen (Tylenol) 650 mg Q4H PRN ORAL Mild Pain (Pain Scale 1-3) 10/23/19 17:30 11/22/19 17:29 Albuterol/ Ipratropium (Albuterol/ Ipratropium) 3 ml Q6H PRN HHN Shortness of Breath 10/23/19 17:30 10/28/19 17:29 Ascorbic Acid (Vitamin C) 500 mg DAILY ORAL 10/24/19 09:00 11/23/19 08:59 Baclofen (Lioresal) 10 mg THREE TIMES A DAY ORAL 10/23/19 18:00 11/22/19 17:59 Clonazepam (KlonoPIN) 0.5 mg TID ORAL 10/23/19 18:00 10/30/19 17:59 Dextrose (Dextrose 50%) 25 ml Q30M PRN IV Hypoglycemia 10/23/19 17:30 01/21/20 17:29 Dextrose (Dextrose 50%) 50 ml Q30M PRN IV Hypoglycemia 10/23/19 17:30 01/21/20 17:29 Diphenhydramine HCl (Benadryl) 25 mg Q6H PRN ORAL Itching/Pruritis 10/23/19 17:30 11/22/19 17:29 Docusate Sodium (Colace) 100 mg EVERY 12 HOURS ORAL 10/23/19 21:00 11/22/19 20:59 Ferrous Sulfate (Feosol) 325 mg DAILY ORAL 10/24/19 09:00 01/22/20 08:59 Gabapentin (Neurontin) 400 mg THREE TIMES A DAY ORAL 10/23/19 18:00 11/22/19 17:59 Iohexol (OMNIPAQUE-300 100ml) 100 ml NOW PRN INJ Radiology Procedure 10/23/19 15:15 10/25/19 15:13 Midodrine (Pro-Amatine) 10 mg THREE TIMES A DAY ORAL 10/23/19 18:00 01/21/20 17:59 Norepinephrine Bitartrate 8 mg/ Dextrose 250 ml @ 0 mls/hr Q24H IV 10/23/19 18:00 11/22/19 17:59 10/23/19 17:59 Ondansetron HCl (Zofran) 4 mg Q6H PRN IVP Nausea & Vomiting 10/23/19 17:30 11/22/19 17:29 Piperacillin Sod/ Tazobactam Sod 3.375 gm/Sodium Chloride 110 ml @ 27.5 mls/hr EVERY 8 HOURS IVPB 10/23/19 22:00 10/28/19 21:59 Sodium Chloride 1,000 ml @ 75 mls/hr [id number] IVLG 10/23/19 18:28 11/22/19 18:27 Vancomycin HCl (Vanco pharmacy to dose) 1 ea DAILY PRN MISC Per rx protocol 10/23/19 17:30 11/22/19 17:29 Vancomycin HCl 1 gm/Sodium Chloride 275 ml @ 183.708 mls/hr Q12HR@0500,1700 IVPB 10/24/19 05:00 10/29/19 04:59 Zinc Sulfate (Zinc Sulfate) 220 mg DAILY ORAL 10/24/19 09:00 01/22/20 08:59 Sharif Painting MD Oct 23, 2019 19:08
--- NOTE | 2019-10-23 19:21 | Infectious Diseases Prog Note ---
Assessment/Plan Assessment/Plan Full consult dictated: A) 1) sepsis, shock, uti, hx esbl, ? sacral wound infection 2) pmh noted 3) allergies - nkda P) 1) vancomycin, meropenem and amikacin 2) check cultures, labs and chest x-ray 3) surgery f/u 4) thank you Subjective Allergies: Coded Allergies: No Known Allergies (Unverified , 08/15/19) Objective Last 24 Hour Vital Signs Date Time Temp Pulse Resp B/P (MAP) Pulse Ox O2 Delivery O2 Flow Rate FiO2 10/23/19 18:20 98.6 68 16 129/66 99 Room Air 10/23/19 18:10 160/100 10/23/19 18:04 75/55 10/23/19 18:00 98.6 68 16 75/55 99 Room Air 10/23/19 17:59 80/51 10/23/19 17:15 98.6 68 16 75/44 99 Room Air 10/23/19 16:12 98.6 77 16 88/54 96 Room Air 10/23/19 15:12 80 16 Room Air 10/23/19 15:12 98.6 77 16 94/55 96 Room Air 10/23/19 14:59 98.6 80 16 92/55 (67) 96 Room Air Height (Feet): 5 Height (Inches): 8.00 Weight (Pounds): 160 Laboratory Tests Test 10/23/19 15:13 White Blood Count 9.7 K/UL (4.8-10.8) Red Blood Count 3.15 M/UL (4.70-6.10) L Hemoglobin 8.2 G/DL (14.2-18.0) L Hematocrit 26.0 % (42.0-52.0) L Mean Corpuscular Volume 83 FL (80-99) Mean Corpuscular Hemoglobin 26.1 PG (27.0-31.0) L Mean Corpuscular Hemoglobin Concent 31.7 G/DL (32.0-36.0) L Red Cell Distribution Width 19.5 % (11.6-14.8) H Platelet Count 561 K/UL (150-450) H Mean Platelet Volume 4.5 FL (6.5-10.1) L Neutrophils (%) (Auto) 65.4 % (45.0-75.0) Lymphocytes (%) (Auto) 26.7 % (20.0-45.0) Monocytes (%) (Auto) 5.1 % (1.0-10.0) Eosinophils (%) (Auto) 1.2 % (0.0-3.0) Basophils (%) (Auto) 1.6 % (0.0-2.0) Prothrombin Time 11.9 SEC (9.30-11.50) H Prothromb Time International Ratio 1.1 (0.9-1.1) Activated Partial Thromboplast Time 35 SEC (23-33) H Urine Color Pale yellow Urine Appearance Slightly cloudy Urine pH 9 (4.5-8.0) Urine Specific [place] 1.010 (1.005-1.035) Urine Protein 2+ (NEGATIVE) H Urine Glucose (UA) Negative (NEGATIVE) Urine Ketones Negative (NEGATIVE) Urine Blood 1+ (NEGATIVE) H Urine Nitrite Positive (NEGATIVE) H Urine Bilirubin Negative (NEGATIVE) Urine Urobilinogen Normal MG/DL (0.0-1.0) Urine Leukocyte Esterase 3+ (NEGATIVE) H Urine RBC 2-4 /HPF (0 - 0) H Urine WBC 5-10 /HPF (0 - 0) H Urine Squamous Epithelial Cells None /LPF (NONE/OCC) Urine Calcium Oxalate Crystals Few /LPF (NONE) Urine Amorphous Sediment Many /LPF (NONE) H Urine Bacteria Many /HPF (NONE) H Sodium Level 134 MMOL/L (136-145) L Potassium Level 3.7 MMOL/L (3.5-5.1) Chloride Level 99 MMOL/L (98-107) Carbon Dioxide Level 27 MMOL/L (21-32) Anion Gap 9 mmol/L (5-15) Blood Urea Nitrogen 15 mg/dL (7-18) Creatinine 0.8 MG/DL (0.55-1.30) Estimat Glomerular Filtration Rate > 60 mL/min (>60) Glucose Level 131 MG/DL (74-106) H Lactic Acid Level 2.00 mmol/L (0.4-2.0) Calcium Level 9.2 MG/DL (8.5-10.1) Total Bilirubin 0.3 MG/DL (0.2-1.0) Aspartate Amino Transf (AST/SGOT) 12 U/L (15-37) L Alanine Aminotransferase (ALT/SGPT) 12 U/L (12-78) Alkaline Phosphatase 246 U/L (46-116) H Total Creatine Kinase 49 U/L (26-308) Creatine Kinase MB 3.2 NG/ML (0.0-3.6) Creatine Kinase MB Relative Index 6.5 Troponin I 0.000 ng/mL (0.000-0.056) Total Protein 7.5 G/DL (6.4-8.2) Albumin 1.8 G/DL (3.4-5.0) L Globulin 5.7 g/dL Albumin/Globulin Ratio 0.3 (1.0-2.7) L Lipase 44 U/L (73-393) L Current Medications Medications (Trade) Dose Ordered Sig/Mya Route PRN Reason Start Time Stop Time Status Last Admin Dose Admin Acetaminophen (Tylenol) 650 mg Q4H PRN ORAL Mild Pain (Pain Scale 1-3) 10/23/19 17:30 11/22/19 17:29 Albuterol/ Ipratropium (Albuterol/ Ipratropium) 3 ml Q6H PRN HHN Shortness of Breath 10/23/19 17:30 10/28/19 17:29 Ascorbic Acid (Vitamin C) 500 mg DAILY ORAL 10/24/19 09:00 11/23/19 08:59 Baclofen (Lioresal) 10 mg THREE TIMES A DAY ORAL 10/23/19 18:00 11/22/19 17:59 Clonazepam (KlonoPIN) 0.5 mg TID ORAL 10/23/19 18:00 10/30/19 17:59 Dextrose (Dextrose 50%) 25 ml Q30M PRN IV Hypoglycemia 10/23/19 17:30 01/21/20 17:29 Dextrose (Dextrose 50%) 50 ml Q30M PRN IV Hypoglycemia 10/23/19 17:30 01/21/20 17:29 Diphenhydramine HCl (Benadryl) 25 mg Q6H PRN ORAL Itching/Pruritis 10/23/19 17:30 11/22/19 17:29 Docusate Sodium (Colace) 100 mg EVERY 12 HOURS ORAL 10/23/19 21:00 11/22/19 20:59 Ferrous Sulfate (Feosol) 325 mg DAILY ORAL 10/24/19 09:00 01/22/20 08:59 Gabapentin (Neurontin) 400 mg THREE TIMES A DAY ORAL 10/23/19 18:00 11/22/19 17:59 Iohexol (OMNIPAQUE-300 100ml) 100 ml NOW PRN INJ Radiology Procedure 10/23/19 15:15 10/25/19 15:13 Midodrine (Pro-Amatine) 10 mg THREE TIMES A DAY ORAL 10/23/19 18:00 01/21/20 17:59 Norepinephrine Bitartrate 8 mg/ Dextrose 250 ml @ 0 mls/hr Q24H IV 10/23/19 18:00 11/22/19 17:59 10/23/19 17:59 Ondansetron HCl (Zofran) 4 mg Q6H PRN IVP Nausea & Vomiting 10/23/19 17:30 11/22/19 17:29 Piperacillin Sod/ Tazobactam Sod 3.375 gm/Sodium Chloride 110 ml @ 27.5 mls/hr EVERY 8 HOURS IVPB 10/23/19 22:00 10/28/19 21:59 Sodium Chloride 1,000 ml @ 75 mls/hr [id number] IVLG 10/23/19 18:28 11/22/19 18:27 Vancomycin HCl (Vanco pharmacy to dose) 1 ea DAILY PRN MISC Per rx protocol 10/23/19 17:30 11/22/19 17:29 Vancomycin HCl 1 gm/Sodium Chloride 275 ml @ 183.708 mls/hr Q12HR@0500,1700 IVPB 10/24/19 05:00 10/29/19 04:59 Zinc Sulfate (Zinc Sulfate) 220 mg DAILY ORAL 10/24/19 09:00 01/22/20 08:59 Sharif Painting MD Oct 23, 2019 19:21
[2019-10-23] MEDS ORDERED: Amikacin Rx to dose MISC PRN (19:30)
[2019-10-23] MEDS: Docusate 100mg cap ORAL SCH (20:37)
[2019-10-23] MEDS: HYDROcodone/Acetamin 5/325 tab ORAL PRN (20:37)
[2019-10-23] MEDS: Norepinephrine 4mg/NS Premix 250 ML IV SCH (20:38)
[2019-10-23] MEDS: clonazePAM 0.5mg tab ORAL SCH (20:43)
[2019-10-23] MEDS ORDERED: Amikacin 1,000 MG in NS 110 ML IV SCH (21:00)
--- NOTE | 2019-10-23 21:45 | Consultation ---
DATE OF CONSULTATION: NO DICTATION Sharif Painting M.D. DR: MAURILIO JOB#: [id number] CC:
[2019-10-23] MEDS ORDERED: Piperacillin/Tazobactam 3.375 GM in NS 110 ML IVPB SCH (22:00)
[2019-10-23] MEDS ORDERED: Dyna-Hex 2% Top Sol 2oz TOPIC SCH (22:30)
[2019-10-24] VITALS (98 sets, daily range): BP systolic 71–149; BP diastolic 43–93
[2019-10-24 04:54] LABS: HEMATOCRIT 22.9 % (42.0-52.0); HEMOGLOBIN 7.2 G/DL (14.2-18.0); MEAN CORPUSCULAR VOLUME 83 FL (80-99); PLATELET COUNT 502 K/UL (150-450); RED BLOOD COUNT 2.77 M/UL (4.70-6.10); RED CELL DISTRIBUTION WIDTH 18.5 % (11.6-14.8); WHITE BLOOD COUNT 6.8 K/UL (4.8-10.8)
[2019-10-24] MEDS: HYDROcodone/Acetamin 5/325 tab ORAL PRN ×2 (04:58→20:01)
[2019-10-24] MEDS: clonazePAM 0.5mg tab ORAL SCH ×3 (05:03→21:18)
[2019-10-24 05:07] LABS: ANION GAP 12 mmol/L (5-15); BLOOD UREA NITROGEN 10 mg/dL (7-18); CALCIUM 7.8 MG/DL (8.5-10.1); CARBON DIOXIDE 22 MMOL/L (21-32); CHLORIDE 109 MMOL/L (98-107); CREATININE 0.7 MG/DL (0.55-1.30); POTASSIUM 3.2 MMOL/L (3.5-5.1); SODIUM 143 MMOL/L (136-145)
[2019-10-24] MEDS: Vancomycin 1 GM in NS 275 ML IVPB SCH ×2 (05:37→17:22)
[2019-10-24] MEDS ORDERED: DOPAMINE 800mg/250ml 250 ML IV SCH (06:15)
[2019-10-24] MEDS: DOPamine 400mg/250ml 250 ML IV SCH ×2 (06:16→23:33)
--- NOTE | 2019-10-24 08:49 | History and Physical ---
History of Present Illness General Date patient seen: Oct 24, 2019 Time patient seen: 07:00 Reason for Hospitalization: General Complaint Present Illness HPI 59-year-old male with past medical history of paraplegia, sacral decubitus ulcer , anemia, hypertension, ESBL multidrug-resistant urinary tract infection sent from shelter facility by ambulance for hypotension, general weakness and confusion. In ED he was noted to be altered with mild hypotension with SBP in 90s, lactate 2.0, UA with mild pyuria. Patient was to be admitted to tele but was upgraded to MICU due to persistent hypotension and bradycardia to 44, started on Levophed and dopamine overnight by pricing specialist. Patient seen and examined, feels well, denies any specific complaints such as CP, dyspnea, weakness, dizziness. Allergies: Coded Allergies: No Known Allergies (Unverified , 08/15/19) COVID-19 Screening Contact w/high risk pt: No Recent Travel to affected area: No Experienced COVID-19 symptoms?: No COVID-19 symptoms experienced: Fever (T>100.4F or >38C) Medication History Scheduled Ascorbic Acid* (Ascorbic Acid*), 500 MG ORAL DAILY, (Reported) Baclofen* (Baclofen*), 10 MG ORAL THREE TIMES A DAY, (Reported) Clonazepam* (Klonopin*), 0.5 MG ORAL TID, (Reported) Cranberry Fruit (Cranberry), 450 MG PO DAILY, (Reported) Docusate Sodium* (Docusate Sodium*), 100 MG ORAL TWICE A DAY, (Reported) Ferrous Sulfate* (Ferrous Sulfate*), 325 MG ORAL DAILY, (Reported) Gabapentin* (Gabapentin*), 400 MG ORAL THREE TIMES A DAY, (Reported) Heparin Sod (Porcine) (Heparin Sodium*), 5,000 UNITS SUBQ EVERY 12 HOURS, ( Reported) Magnesium Hydroxide* (Milk Of Magnesia*), 30 ML ORAL DAILY, (Reported) Midodrine* (Proamatine*), 10 MG ORAL THREE TIMES A DAY, (Reported) Multivitamins* (Multivitamins*), 1 TAB ORAL DAILY, (Reported) Omeprazole (Omeprazole), 20 MG ORAL TWICE A DAY, (Reported) Zinc Sulfate (Zinc Sulfate*), 220 MG ORAL DAILY, (Reported) Scheduled PRN Acetaminophen* (Acetaminophen 325MG Tablet*), 650 MG ORAL Q6H PRN for pain/fever , (Reported) Hydrocodone Bit/Acetaminophen 10-325* ([place] 10-325*), 1 TAB ORAL Q6H PRN for For Pain, (Reported) Tramadol Hcl* (Ultram*), 50 MG ORAL Q6H PRN for For Pain, (Reported) Patient History Healthcare decision maker Resuscitation status Advanced Directive on File Review of Systems Constitutional: Denies: chills, fever Respiratory: Denies: cough Cardiovascular: Denies: chest pain Gastrointestinal: Denies: abdominal pain, diarrhea, nausea, vomiting Musculoskeletal: Denies: back pain Neurological: Denies: headache Physical Exam General Appearance: no apparent distress, alert HEENT: atraumatic, anicteric Neck: normal alignment, supple Respiratory/Chest: lungs clear, normal breath sounds, no respiratory distress Abdomen: non tender, soft Neurologic: alert, responsive, normal mood/affect Last 24 Hour Vital Signs Date Time Temp Pulse Resp B/P (MAP) Pulse Ox O2 Delivery O2 Flow Rate FiO2 10/24/19 07:00 93/58 10/24/19 06:16 128/64 10/24/19 05:28 97.8 10/24/19 04:00 Room Air 10/24/19 04:00 60 10/24/19 00:00 60 10/24/19 00:00 Room Air 10/23/19 21:45 55 16 116/67 (83) 100 10/23/19 21:30 57 17 110/66 (81) 100 10/23/19 21:15 59 15 115/66 (82) 100 10/23/19 21:00 60 15 124/48 (73) 100 10/23/19 20:45 58 15 114/66 (82) 100 10/23/19 20:38 112/59 10/23/19 20:30 57 16 112/59 (76) 100 10/23/19 20:15 59 15 95/57 (70) 100 10/23/19 20:10 60 11 101/60 (74) 100 10/23/19 20:00 69 12 112/74 (87) 100 10/23/19 20:00 63 10/23/19 20:00 Room Air 10/23/19 19:52 Room Air 10/23/19 19:45 61 14 100/71 (81) 100 10/23/19 19:30 64 14 131/71 (91) 100 10/23/19 19:24 98.6 68 16 122/62 99 Room Air 10/23/19 19:15 65 14 119/65 (83) 100 10/23/19 19:00 97.8 65 14 126/62 (83) 100 10/23/19 18:20 98.6 68 16 129/66 99 Room Air 10/23/19 18:10 160/100 10/23/19 18:04 75/55 10/23/19 18:00 98.6 68 16 75/55 99 Room Air 10/23/19 17:59 80/51 10/23/19 17:15 98.6 68 16 75/44 99 Room Air 10/23/19 16:12 98.6 77 16 88/54 96 Room Air 10/23/19 15:12 80 16 Room Air 10/23/19 15:12 98.6 77 16 94/55 96 Room Air 10/23/19 14:59 98.6 80 16 92/55 (67) 96 Room Air Intake and Output 10/23/19 10/24/19 19:00 07:00 Intake Total 1988.280 ml Output Total 250 ml 1150 ml Balance -250 ml 838.280 ml Intake Oral 300 ml IV Total 1688.280 ml Output Urine Total 250 ml 1150 ml # Bowel Movements 2 Laboratory Tests Test 10/23/19 15:13 10/24/19 02:50 White Blood Count 9.7 K/UL (4.8-10.8) 6.8 K/UL (4.8-10.8) Red Blood Count 3.15 M/UL (4.70-6.10) L 2.77 M/UL (4.70-6.10) L Hemoglobin 8.2 G/DL (14.2-18.0) L 7.2 G/DL (14.2-18.0) L Hematocrit 26.0 % (42.0-52.0) L 22.9 % (42.0-52.0) L Mean Corpuscular Volume 83 FL (80-99) 83 FL (80-99) Mean Corpuscular Hemoglobin 26.1 PG (27.0-31.0) L 25.9 PG (27.0-31.0) L Mean Corpuscular Hemoglobin Concent 31.7 G/DL (32.0-36.0) L 31.3 G/DL (32.0-36.0) L Red Cell Distribution Width 19.5 % (11.6-14.8) H 18.5 % (11.6-14.8) H Platelet Count 561 K/UL (150-450) H 502 K/UL (150-450) H Mean Platelet Volume 4.5 FL (6.5-10.1) L 4.1 FL (6.5-10.1) L Neutrophils (%) (Auto) 65.4 % (45.0-75.0) % (45.0-75.0) Lymphocytes (%) (Auto) 26.7 % (20.0-45.0) % (20.0-45.0) Monocytes (%) (Auto) 5.1 % (1.0-10.0) % (1.0-10.0) Eosinophils (%) (Auto) 1.2 % (0.0-3.0) % (0.0-3.0) Basophils (%) (Auto) 1.6 % (0.0-2.0) % (0.0-2.0) Prothrombin Time 11.9 SEC (9.30-11.50) H Prothromb Time International Ratio 1.1 (0.9-1.1) Activated Partial Thromboplast Time 35 SEC (23-33) H Urine Color Pale yellow Urine Appearance Slightly cloudy Urine pH 9 (4.5-8.0) Urine Specific [place] 1.010 (1.005-1.035) Urine Protein 2+ (NEGATIVE) H Urine Glucose (UA) Negative (NEGATIVE) Urine Ketones Negative (NEGATIVE) Urine Blood 1+ (NEGATIVE) H Urine Nitrite Positive (NEGATIVE) H Urine Bilirubin Negative (NEGATIVE) Urine Urobilinogen Normal MG/DL (0.0-1.0) Urine Leukocyte Esterase 3+ (NEGATIVE) H Urine RBC 2-4 /HPF (0 - 0) H Urine WBC 5-10 /HPF (0 - 0) H Urine Squamous Epithelial Cells None /LPF (NONE/OCC) Urine Calcium Oxalate Crystals Few /LPF (NONE) Urine Amorphous Sediment Many /LPF (NONE) H Urine Bacteria Many /HPF (NONE) H Sodium Level 134 MMOL/L (136-145) L 143 MMOL/L (136-145) Potassium Level 3.7 MMOL/L (3.5-5.1) 3.2 MMOL/L (3.5-5.1) L Chloride Level 99 MMOL/L (98-107) 109 MMOL/L (98-107) H Carbon Dioxide Level 27 MMOL/L (21-32) 22 MMOL/L (21-32) Anion Gap 9 mmol/L (5-15) 12 mmol/L (5-15) Blood Urea Nitrogen 15 mg/dL (7-18) 10 mg/dL (7-18) Creatinine 0.8 MG/DL (0.55-1.30) 0.7 MG/DL (0.55-1.30) Estimat Glomerular Filtration Rate > 60 mL/min (>60) > 60 mL/min (>60) Glucose Level 131 MG/DL (74-106) H 119 MG/DL (74-106) H Lactic Acid Level 2.00 mmol/L (0.4-2.0) Calcium Level 9.2 MG/DL (8.5-10.1) 7.8 MG/DL (8.5-10.1) L Total Bilirubin 0.3 MG/DL (0.2-1.0) Aspartate Amino Transf (AST/SGOT) 12 U/L (15-37) L Alanine Aminotransferase (ALT/SGPT) 12 U/L (12-78) Alkaline Phosphatase 246 U/L (46-116) H Total Creatine Kinase 49 U/L (26-308) Creatine Kinase MB 3.2 NG/ML (0.0-3.6) Creatine Kinase MB Relative Index 6.5 Troponin I 0.000 ng/mL (0.000-0.056) Total Protein 7.5 G/DL (6.4-8.2) Albumin 1.8 G/DL (3.4-5.0) L Globulin 5.7 g/dL Albumin/Globulin Ratio 0.3 (1.0-2.7) L Lipase 44 U/L (73-393) L Microbiology Date/Time Source Procedure Growth Status 10/23/19 15:13 Urine,Clean Catch Urine Culture - Preliminary Resulted 10/23/19 18:55 Rectum Received Height (Feet): 5 Height (Inches): 7.00 Weight (Pounds): 105 Medications Current Medications Medications (Trade) Dose Ordered Sig/Mya Route PRN Reason Start Time Stop Time Status Last Admin Dose Admin Acetaminophen (Tylenol) 650 mg Q4H PRN ORAL Mild Pain (Pain Scale 1-3) 10/23/19 17:30 11/22/19 17:29 Acetaminophen/ Hydrocodone Bitart ([place] 5/325) 1 tab Q4H PRN ORAL Moderate Pain (Pain Scale 4-6) 10/23/19 20:15 10/30/19 20:14 Acetaminophen/ Hydrocodone Bitart ([place] 5/325) 2 tab Q4H PRN ORAL Severe Pain (Pain Scale 7-10) 10/23/19 20:15 10/30/19 20:14 10/24/19 04:58 Albuterol/ Ipratropium (Albuterol/ Ipratropium) 3 ml Q6H PRN HHN Shortness of Breath 10/23/19 17:30 10/28/19 17:29 Amikacin Protocol (Amikacin pharmacy to dose) 1 ea DAILY PRN MISC Per rx protocol 10/23/19 19:30 11/22/19 19:29 Amikacin Sulfate 1000 mg/Sodium Chloride 114 ml @ 114 mls/hr Q24H IV 10/23/19 21:00 10/30/19 20:59 10/23/19 20:43 Ascorbic Acid (Vitamin C) 500 mg DAILY ORAL 10/24/19 09:00 11/23/19 08:59 Baclofen (Lioresal) 10 mg THREE TIMES A DAY ORAL 10/23/19 18:00 11/22/19 17:59 Chlorhexidine Gluconate (Simran-Hex 2%) 1 applic DAILY@2000 TOPIC 10/24/19 20:00 01/22/20 19:59 Clonazepam (KlonoPIN) 0.5 mg Q8HR ORAL 10/23/19 21:00 10/30/19 20:59 10/24/19 05:03 Dextrose (Dextrose 50%) 25 ml Q30M PRN IV Hypoglycemia 10/23/19 17:30 01/21/20 17:29 Dextrose (Dextrose 50%) 50 ml Q30M PRN IV Hypoglycemia 10/23/19 17:30 01/21/20 17:29 Diphenhydramine HCl (Benadryl) 25 mg Q6H PRN ORAL Itching/Pruritis 10/23/19 17:30 11/22/19 17:29 Docusate Sodium (Colace) 100 mg EVERY 12 HOURS ORAL 10/23/19 21:00 11/22/19 20:59 10/23/19 20:37 Dopamine HCl/ Dextrose 250 ml @ 0 mls/hr Q24H IV 10/24/19 06:15 01/22/20 06:14 10/24/19 06:16 Ferrous Sulfate (Feosol) 325 mg DAILY ORAL 10/24/19 09:00 01/22/20 08:59 Gabapentin (Neurontin) 400 mg Q8HR ORAL 10/23/19 22:00 11/22/19 21:59 10/24/19 05:03 Iohexol (OMNIPAQUE-300 100ml) 100 ml NOW PRN INJ Radiology Procedure 10/23/19 15:15 10/25/19 15:13 Meropenem 1 gm/ Sodium Chloride 100 ml @ 200 mls/hr Q8HR IVPB 10/23/19 22:00 10/28/19 21:59 10/24/19 05:03 Midodrine (Pro-Amatine) 10 mg THREE TIMES A DAY ORAL 10/23/19 18:00 01/21/20 17:59 Norepinephrine Bitartrate 250 ml @ 0 mls/hr Q24H IV 10/23/19 21:00 01/21/20 20:59 10/23/19 20:38 Ondansetron HCl (Zofran) 4 mg Q6H PRN IVP Nausea & Vomiting 10/23/19 17:30 11/22/19 17:29 Sodium Chloride 1,000 ml @ 75 mls/hr [id number] IVLG 10/23/19 18:28 11/22/19 18:27 10/24/19 05:37 Vancomycin HCl (Vanco pharmacy to dose) 1 ea DAILY PRN MISC Per rx protocol 10/23/19 17:30 11/22/19 17:29 Vancomycin HCl 1 gm/Sodium Chloride 275 ml @ 183.708 mls/hr Q12HR@0500,1700 IVPB 10/24/19 05:00 10/29/19 04:59 10/24/19 05:37 Zinc Sulfate (Zinc Sulfate) 220 mg DAILY ORAL 10/24/19 09:00 01/22/20 08:59 Assessment/Plan Assessment/Plan: '59 year old man who presents from [facility]T with weakness, encephalopathy, concern for septic shock, possible from UTI vs infected sacral pressure ulcer #?Septic shock (Normal lactate) #?UTI vs infected sacral pressure ulcer #Acute metabolic encephalopathy #Paraplegia -continue ICU care for now -attempt to wean off pressors (patient has chronic hypotension and is on midodrine as outpatient) -continue broad spectrum antibiotics, vanco/Zosyn/amikacin as per ID recs -follow up culture data -Surgery to evaluate sacral wound -Local wound care and offloading #Sinus Bradycardia to 44 -continue telemetry -consulted Dr. Estes #Hypokalemia -replace [facility] KCl -monitor BMP daily #Anemia, acute on chronic -monitor H&H -Hematology consulted VTE PPx HSQ Full Code spent 75 minutes on this patient's case, and 38 mins was dedicated to critical care Critical Care Services performed include: Telemetry Review Hemodynamic measurement interpretation Laboratory data review and interpretation Radiology image review and interpretation Discussion of patient's care with ICU team, ICU Nursing staff and/or consulting services John Tejada MD Oct 24, 2019 08:49
[2019-10-24] MEDS: Ascorbic Acid 500mg tab ORAL SCH (08:54)
[2019-10-24] MEDS: Midodrine 10mg tab ORAL SCH ×3 (08:54→17:22)
[2019-10-24] MEDS: Heparin 5000 units/ml inj SUBQ SCH ×2 (08:54→21:00)
[2019-10-24] MEDS: Docusate 100mg cap ORAL SCH ×2 (08:54→20:58)
[2019-10-24] MEDS: Zinc Sulfate 220mg ORAL SCH (08:54)
--- NOTE | 2019-10-24 09:15 | Consultation ---
DATE OF CONSULTATION: 10/23/2019 INFECTIOUS DISEASES CONSULTATION CONSULTING PHYSICIAN: Sharif Painting MD ATTENDING PHYSICIAN: Thalia Marx MD REFERRING PHYSICIAN: John Tejada MD REASON FOR CONSULTATION: Sepsis, shock, UTI. CHIEF COMPLAINT: The patient's chief complaint coming into the hospital is sepsis, shock, UTI. HISTORY OF PRESENT ILLNESS: This is a 59-year-old male who I saw in the emergency room at [facility]. The patient noted to have urinary tract infection but also was in septic shock at this time requiring pressors. The patient has been placed on IV antibiotics. He is going to ICU. He is on Zosyn and vancomycin. Infectious Diseases consultation requested for antibiotic management in this patient with UTI, sepsis, shock. REVIEW OF SYSTEMS: The patient is not a very good historian. He is responsive. He is on pressors. He has a Marcos. He is going to be transferred down to ICU. I saw him in the emergency room. Otherwise, he is weak. No fevers.CARDIAC: He is on pressors. GASTROINTESTINAL: No nausea, vomiting, diarrhea. GENITOURINARY: He has a Marcos. PULMONARY: No significant shortness of breath. SKIN: No rash. NEUROLOGIC: No seizures. PAST MEDICAL HISTORY: The patient's past medical history includes the following: The patient has a past medical history of paraplegia, sacral wound, anemia, hypertension, ESBL UTI in the past. ALLERGIES: The patient has no known drug allergies. No antibiotic allergies. SOCIAL HISTORY: Negative for smoking, alcohol, or drug abuse. FAMILY HISTORY: Noncontributory. MEDICATIONS: Upon reviewing the MAR, he is on following medications, ascorbic acid, ferrous sulfate, vancomycin, Zosyn, docusate, Bactroban, clonazepam, gabapentin, midodrine, acetaminophen, albuterol, Zofran prn. Antibiotics, vancomycin and Zosyn. discontinue Zosyn, meropenem, may be add amikacin also. Outside medications noted and reconciliated. PHYSICAL EXAMINATION: VITAL SIGNS: Temperature is 98.6, pulse rate is 68, respiratory rate is 16, blood pressure 129/66, saturation 99%. Blood pressure systolically was 75/55 requiring pressors. GENERAL: Alert, weak but is responsive. HEAD AND NECK: Oral exam, no thrush. Eye exam, no icterus. Normocephalic. Neck is supple. There is no JVD. HEART: Regular. No gallop or murmur. No friction rub. ABDOMEN: Soft. Positive bowel sounds. Nontender. LUNGS: Clear bilaterally. No rhonchi or rales. SKIN: No rash. MUSCULOSKELETAL: No effusions. Legs are without cellulitis. PERIPHERAL VASCULAR: No cyanosis or gangrene. No septic arthritis. GENITOURINARY: He does have a Marcos. Urine is cloudy. LINE SITES: Without phlebitis. NEUROLOGIC: Generalized weakness, poorly responsive. LABORATORY AND DIAGNOSTIC DATA: White count 9.7, hemoglobin 8.2. Creatinine is 0.8. UA had many bacteria, 5 to 10 white cells, 2+ leukocyte esterase and positive nitrite. Urine culture is pending. Imaging studies, chest x-ray showed no acute disease, no consolidation. Cultures are pending. LFTs noted. ASSESSMENT AND PLAN: 1. The patient has sepsis shock likely from urinary tract infection, rule out other process. At this time, the patient is on vancomycin but I am going to switch the Zosyn to meropenem and also amikacin since the patient has a history of ESBL organism, must rule out MDR UTI and sepsis shock. Continue pressors for sepsis shock and ICU care. Continue antibiotics with vancomycin, meropenem, and amikacin for UTI, sepsis shock. Check cultures, labs, chest x-ray. 2. ICU care. 3. Sacral wound - Surgery has been called. 4. Ostomy malfunction - per surgery 5. Hypertension. 6. Paraplegia. 7. Anemia. 8. History of decubitus ulcer, rule out infection. Infectious diseases is following. The patient on antibiotics. 9. Hypertension treatment per primary care team. 10. Continue treatment per primary consultants. 11. No known drug allergies. 12. Social history is negative. 13. Family history is noncontributory. 14. MAR was noted. 15. Case discussed with RN. I will follow. Sharif Painting M.D. DR: Papa JOB#: [id number] CC: [email or web address]
[2019-10-24] MEDS ORDERED: Potassium Chloride 40 MEQ in D5W 275 ML IVPB SCH (10:00)
[2019-10-24] MEDS ORDERED: Potassium Chloride 40 MEQ in D5W 500ml 550 ML IV SCH (10:00)
--- NOTE | 2019-10-24 11:41 | Cardiac Electrophysiology PN ---
Subjective Subjective [id number] Objective Last 24 Hour Vital Signs Date Time Temp Pulse Resp B/P (MAP) Pulse Ox O2 Delivery O2 Flow Rate FiO2 10/24/19 07:00 93/58 10/24/19 06:16 128/64 10/24/19 05:28 97.8 10/24/19 04:00 Room Air 10/24/19 04:00 60 10/24/19 00:00 60 10/24/19 00:00 Room Air 10/23/19 21:45 55 16 116/67 (83) 100 10/23/19 21:30 57 17 110/66 (81) 100 10/23/19 21:15 59 15 115/66 (82) 100 10/23/19 21:00 60 15 124/48 (73) 100 10/23/19 20:45 58 15 114/66 (82) 100 10/23/19 20:38 112/59 10/23/19 20:30 57 16 112/59 (76) 100 10/23/19 20:15 59 15 95/57 (70) 100 10/23/19 20:10 60 11 101/60 (74) 100 10/23/19 20:00 69 12 112/74 (87) 100 10/23/19 20:00 63 10/23/19 20:00 Room Air 10/23/19 19:52 Room Air 10/23/19 19:45 61 14 100/71 (81) 100 10/23/19 19:30 64 14 131/71 (91) 100 10/23/19 19:24 98.6 68 16 122/62 99 Room Air 10/23/19 19:15 65 14 119/65 (83) 100 10/23/19 19:00 97.8 65 14 126/62 (83) 100 10/23/19 18:20 98.6 68 16 129/66 99 Room Air 10/23/19 18:10 160/100 10/23/19 18:04 75/55 10/23/19 18:00 98.6 68 16 75/55 99 Room Air 10/23/19 17:59 80/51 10/23/19 17:15 98.6 68 16 75/44 99 Room Air 10/23/19 16:12 98.6 77 16 88/54 96 Room Air 10/23/19 15:12 80 16 Room Air 10/23/19 15:12 98.6 77 16 94/55 96 Room Air 10/23/19 14:59 98.6 80 16 92/55 (67) 96 Room Air Intake and Output 10/23/19 10/24/19 19:00 07:00 Intake Total 1988.280 ml Output Total 250 ml 1150 ml Balance -250 ml 838.280 ml Intake Oral 300 ml IV Total 1688.280 ml Output Urine Total 250 ml 1150 ml # Bowel Movements 2 Laboratory Tests Test 10/23/19 15:13 10/24/19 02:50 10/24/19 09:00 White Blood Count 9.7 K/UL (4.8-10.8) 6.8 K/UL (4.8-10.8) Red Blood Count 3.15 M/UL (4.70-6.10) L 2.77 M/UL (4.70-6.10) L Hemoglobin 8.2 G/DL (14.2-18.0) L 7.2 G/DL (14.2-18.0) L Hematocrit 26.0 % (42.0-52.0) L 22.9 % (42.0-52.0) L Mean Corpuscular Volume 83 FL (80-99) 83 FL (80-99) Mean Corpuscular Hemoglobin 26.1 PG (27.0-31.0) L 25.9 PG (27.0-31.0) L Mean Corpuscular Hemoglobin Concent 31.7 G/DL (32.0-36.0) L 31.3 G/DL (32.0-36.0) L Red Cell Distribution Width 19.5 % (11.6-14.8) H 18.5 % (11.6-14.8) H Platelet Count 561 K/UL (150-450) H 502 K/UL (150-450) H Mean Platelet Volume 4.5 FL (6.5-10.1) L 4.1 FL (6.5-10.1) L Neutrophils (%) (Auto) 65.4 % (45.0-75.0) % (45.0-75.0) Lymphocytes (%) (Auto) 26.7 % (20.0-45.0) % (20.0-45.0) Monocytes (%) (Auto) 5.1 % (1.0-10.0) % (1.0-10.0) Eosinophils (%) (Auto) 1.2 % (0.0-3.0) % (0.0-3.0) Basophils (%) (Auto) 1.6 % (0.0-2.0) % (0.0-2.0) Prothrombin Time 11.9 SEC (9.30-11.50) H Prothromb Time International Ratio 1.1 (0.9-1.1) Activated Partial Thromboplast Time 35 SEC (23-33) H Urine Color Pale yellow Urine Appearance Slightly cloudy Urine pH 9 (4.5-8.0) Urine Specific [place] 1.010 (1.005-1.035) Urine Protein 2+ (NEGATIVE) H Urine Glucose (UA) Negative (NEGATIVE) Urine Ketones Negative (NEGATIVE) Urine Blood 1+ (NEGATIVE) H Urine Nitrite Positive (NEGATIVE) H Urine Bilirubin Negative (NEGATIVE) Urine Urobilinogen Normal MG/DL (0.0-1.0) Urine Leukocyte Esterase 3+ (NEGATIVE) H Urine RBC 2-4 /HPF (0 - 0) H Urine WBC 5-10 /HPF (0 - 0) H Urine Squamous Epithelial Cells None /LPF (NONE/OCC) Urine Calcium Oxalate Crystals Few /LPF (NONE) Urine Amorphous Sediment Many /LPF (NONE) H Urine Bacteria Many /HPF (NONE) H Sodium Level 134 MMOL/L (136-145) L 143 MMOL/L (136-145) Potassium Level 3.7 MMOL/L (3.5-5.1) 3.2 MMOL/L (3.5-5.1) L Chloride Level 99 MMOL/L (98-107) 109 MMOL/L (98-107) H Carbon Dioxide Level 27 MMOL/L (21-32) 22 MMOL/L (21-32) Anion Gap 9 mmol/L (5-15) 12 mmol/L (5-15) Blood Urea Nitrogen 15 mg/dL (7-18) 10 mg/dL (7-18) Creatinine 0.8 MG/DL (0.55-1.30) 0.7 MG/DL (0.55-1.30) Estimat Glomerular Filtration Rate > 60 mL/min (>60) > 60 mL/min (>60) Glucose Level 131 MG/DL (74-106) H 119 MG/DL (74-106) H Lactic Acid Level 2.00 mmol/L (0.4-2.0) Calcium Level 9.2 MG/DL (8.5-10.1) 7.8 MG/DL (8.5-10.1) L Total Bilirubin 0.3 MG/DL (0.2-1.0) Aspartate Amino Transf (AST/SGOT) 12 U/L (15-37) L Alanine Aminotransferase (ALT/SGPT) 12 U/L (12-78) Alkaline Phosphatase 246 U/L (46-116) H Total Creatine Kinase 49 U/L (26-308) Creatine Kinase MB 3.2 NG/ML (0.0-3.6) Creatine Kinase MB Relative Index 6.5 Troponin I 0.000 ng/mL (0.000-0.056) Total Protein 7.5 G/DL (6.4-8.2) Albumin 1.8 G/DL (3.4-5.0) L Globulin 5.7 g/dL Albumin/Globulin Ratio 0.3 (1.0-2.7) L Lipase 44 U/L (73-393) L Random Amikacin Level Pending Microbiology Date/Time Source Procedure Growth Status 10/23/19 15:13 Urine,Clean Catch Urine Culture - Preliminary Resulted 10/23/19 18:55 Rectum Received Carloz Estes MD Oct 24, 2019 11:40
--- NOTE | 2019-10-24 12:30 | Consultation ---
DATE OF CONSULTATION: 10/24/2019 PULMONARY/ICU CONSULTATION CONSULTING PHYSICIAN: Gregg Curtis MD. HISTORY OF PRESENT ILLNESS: This is a 59-year-old male who has known paraplegia and sacral decubitus. He has also a previous history of previous ESBL with multi-drug resistant UTI. He was sent in from nursing facility with hypotension and confusion. The patient was found to be altered and hypotensive. He also had elevated lactate. He was admitted to the intensive care unit due to hypotension and bradycardia. Overnight, he has been started on Levophed and dopamine. At this time, the patient appears to be improved clinically. Most recent blood pressure is 120/60, O2 saturation is 100% on room air. Heart rate is 64. He is afebrile. HOME MEDICATIONS: Include ascorbic acid, baclofen, Klonopin, Colace, Neurontin, midodrine. CODE STATUS: Full. PAST MEDICAL HISTORY: Discussed above, notable for paraplegia, sacral decubitus, anemia, history of hypertension, previous ESBL urinary tract infection, [facility] resident. PHYSICAL EXAMINATION: GENERAL: Reveals a 59-year-old male. HEENT: Unremarkable. CHEST: Decreased breath sounds bilaterally. HEART: Normal heart sounds. ABDOMEN: Soft. Please refer to nursing notes for wound care description. LABORATORY TESTING: Shows normal white count with a hemoglobin of 8.2, now dropped to 7.2. Platelet count is normal. Chemistries notable for potassium 3.2. Coags are normal. Toxicology is pending. Urinalysis shows few pus cells. IMAGING STUDIES: X-ray chest was obtained yesterday, which shows clear lung hess bilaterally without any obvious pneumonia. IMPRESSION: 1. Septic shock. 2. Complicated UTI with history of previous ESBL infection. 3. Paraplegia. 4. Sacral decubitus. 5. sn[facility] resident. DISCUSSION: Admit to the hospital. Needs pressors. We will need to obtain central access. DVT and GI prophylaxes. ID consult noted. Continue pressors. We will follow carefully. Oxygen, doing well on room air at this time. Gregg Curtis M.D. DR: WESTON JOB#: [id number] CC:
--- NOTE | 2019-10-24 12:43 | Consultation ---
History of Present Illness General Date patient seen: Oct 24, 2019 Reason for Hospitalization: General Complaint Present Illness HPI This is a 59 year old male well known to me from prior admission and care plan. Was in nursing facility and noted to have hypotension. Came to [facility] ED for evaluation and admitted to ICU for care and management. abnormal labs. hypotensive. central line placed right IJ. surgery called to evaluate and assist with care. abdomen distended. ostomy minimal output. awake, alert, responsive states he is comfortable. no complaints Allergies: Coded Allergies: No Known Allergies (Unverified , 08/15/19) COVID-19 Screening Contact w/high risk pt: No Recent Travel to affected area: No Experienced COVID-19 symptoms?: No COVID-19 symptoms experienced: Fever (T>100.4F or >38C) Medication History Scheduled Ascorbic Acid* (Ascorbic Acid*), 500 MG ORAL DAILY, (Reported) Baclofen* (Baclofen*), 10 MG ORAL THREE TIMES A DAY, (Reported) Clonazepam* (Klonopin*), 0.5 MG ORAL TID, (Reported) Cranberry Fruit (Cranberry), 450 MG PO DAILY, (Reported) Docusate Sodium* (Docusate Sodium*), 100 MG ORAL TWICE A DAY, (Reported) Ferrous Sulfate* (Ferrous Sulfate*), 325 MG ORAL DAILY, (Reported) Gabapentin* (Gabapentin*), 400 MG ORAL THREE TIMES A DAY, (Reported) Heparin Sod (Porcine) (Heparin Sodium*), 5,000 UNITS SUBQ EVERY 12 HOURS, ( Reported) Magnesium Hydroxide* (Milk Of Magnesia*), 30 ML ORAL DAILY, (Reported) Midodrine* (Proamatine*), 10 MG ORAL THREE TIMES A DAY, (Reported) Multivitamins* (Multivitamins*), 1 TAB ORAL DAILY, (Reported) Omeprazole (Omeprazole), 20 MG ORAL TWICE A DAY, (Reported) Zinc Sulfate (Zinc Sulfate*), 220 MG ORAL DAILY, (Reported) Scheduled PRN Acetaminophen* (Acetaminophen 325MG Tablet*), 650 MG ORAL Q6H PRN for pain/fever , (Reported) Hydrocodone Bit/Acetaminophen 10-325* ([place] 10-325*), 1 TAB ORAL Q6H PRN for For Pain, (Reported) Tramadol Hcl* (Ultram*), 50 MG ORAL Q6H PRN for For Pain, (Reported) Patient History Limited by: medical condition History Provided By: Patient, Medical Record, PMD Healthcare decision maker Resuscitation status Advanced Directive on File Past Medical/Surgical History Past Medical/Surgical History: (1) Femur fracture (2) Hyponatremia (3) UTI (urinary tract infection) (4) Left leg pain (5) SEAN (acute kidney injury) (6) Ileostomy prolapse (7) Vomiting (8) Hypokalemia (9) Anemia (10) Encephalopathy (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 (12) Urinary tract infection in male (13) Sepsis (14) Hypotension (15) Decubital ulcer Review of Systems Review of Symptoms General ROS: no weight loss or fever Psychological ROS: no depression or mood changes, no memory loss Ophthalmic ROS: no visual changes or eye irritation ENT ROS: no nasal congestion, hearing loss, dizziness Allergy and Immunology ROS: no allergic symptoms or urticaria Hematological and Lymphatic ROS: no swollen glands, unusual bleeding or bruising Endocrine ROS: no polyuria, polydipsia, weight changes, temperature intolerance Respiratory ROS: no cough, shortness of breath, or wheezing Cardiovascular ROS: no chest pain or dyspnea on exertion Gastrointestinal ROS: denies abdominal pain, bright red blood in stool. Musculoskeletal ROS: no myalgias or arthralgias Neurological ROS: no TIA or stroke symptoms Dermatological ROS: no new or changing skin lesions, rashes or pruritis Physical Exam Physical Exam General appearance: alert, cooperative, no distress, appears stated age Head: Normocephalic, without obvious abnormality, atraumatic Eyes: conjunctivae/corneas clear. PERRL, EOM's intact. Fundi benign Throat: Lips, mucosa, and tongue normal. Teeth and gums normal Neck: supple, symmetrical, trachea midline, no adenopathy, thyroid: not enlarged, symmetric, no tenderness/mass/nodules, no carotid bruit and no JVD Lungs: clear to auscultation bilaterally Heart: regular rate and rhythm, S1, S2 normal, no murmur, click, rub or gallop Abdomen: soft, non-tender. Bowel sounds decreased, distended, ostomy okay with minimal output No masses, no organomegaly Extremities: extremities normal, atraumatic, no cyanosis or edema Pulses: 2+ and symmetric Skin: Skin color, texture, turgor normal. No rashes or lesions Neurologic: Grossly normal Last 24 Hour Vital Signs Date Time Temp Pulse Resp B/P (MAP) Pulse Ox O2 Delivery O2 Flow Rate FiO2 10/24/19 07:00 93/58 10/24/19 06:16 128/64 10/24/19 05:28 97.8 10/24/19 04:00 Room Air 10/24/19 04:00 60 10/24/19 00:00 60 10/24/19 00:00 Room Air 10/23/19 21:45 55 16 116/67 (83) 100 10/23/19 21:30 57 17 110/66 (81) 100 10/23/19 21:15 59 15 115/66 (82) 100 10/23/19 21:00 60 15 124/48 (73) 100 10/23/19 20:45 58 15 114/66 (82) 100 10/23/19 20:38 112/59 10/23/19 20:30 57 16 112/59 (76) 100 10/23/19 20:15 59 15 95/57 (70) 100 10/23/19 20:10 60 11 101/60 (74) 100 10/23/19 20:00 69 12 112/74 (87) 100 10/23/19 20:00 63 10/23/19 20:00 Room Air 10/23/19 19:52 Room Air 10/23/19 19:45 61 14 100/71 (81) 100 10/23/19 19:30 64 14 131/71 (91) 100 10/23/19 19:24 98.6 68 16 122/62 99 Room Air 10/23/19 19:15 65 14 119/65 (83) 100 10/23/19 19:00 97.8 65 14 126/62 (83) 100 10/23/19 18:20 98.6 68 16 129/66 99 Room Air 10/23/19 18:10 160/100 10/23/19 18:04 75/55 10/23/19 18:00 98.6 68 16 75/55 99 Room Air 10/23/19 17:59 80/51 10/23/19 17:15 98.6 68 16 75/44 99 Room Air 10/23/19 16:12 98.6 77 16 88/54 96 Room Air 10/23/19 15:12 80 16 Room Air 8/10/20 15:12 98.6 77 16 94/55 96 Room Air 10/23/19 14:59 98.6 80 16 92/55 (67) 96 Room Air Intake and Output 10/23/19 10/24/19 19:00 07:00 Intake Total 1988.280 ml Output Total 250 ml 1150 ml Balance -250 ml 838.280 ml Intake Oral 300 ml IV Total 1688.280 ml Output Urine Total 250 ml 1150 ml # Bowel Movements 2 Laboratory Tests Test 10/23/19 15:13 10/24/19 02:50 10/24/19 09:00 White Blood Count 9.7 K/UL (4.8-10.8) 6.8 K/UL (4.8-10.8) Red Blood Count 3.15 M/UL (4.70-6.10) L 2.77 M/UL (4.70-6.10) L Hemoglobin 8.2 G/DL (14.2-18.0) L 7.2 G/DL (14.2-18.0) L Hematocrit 26.0 % (42.0-52.0) L 22.9 % (42.0-52.0) L Mean Corpuscular Volume 83 FL (80-99) 83 FL (80-99) Mean Corpuscular Hemoglobin 26.1 PG (27.0-31.0) L 25.9 PG (27.0-31.0) L Mean Corpuscular Hemoglobin Concent 31.7 G/DL (32.0-36.0) L 31.3 G/DL (32.0-36.0) L Red Cell Distribution Width 19.5 % (11.6-14.8) H 18.5 % (11.6-14.8) H Platelet Count 561 K/UL (150-450) H 502 K/UL (150-450) H Mean Platelet Volume 4.5 FL (6.5-10.1) L 4.1 FL (6.5-10.1) L Neutrophils (%) (Auto) 65.4 % (45.0-75.0) % (45.0-75.0) Lymphocytes (%) (Auto) 26.7 % (20.0-45.0) % (20.0-45.0) Monocytes (%) (Auto) 5.1 % (1.0-10.0) % (1.0-10.0) Eosinophils (%) (Auto) 1.2 % (0.0-3.0) % (0.0-3.0) Basophils (%) (Auto) 1.6 % (0.0-2.0) % (0.0-2.0) Prothrombin Time 11.9 SEC (9.30-11.50) H Prothromb Time International Ratio 1.1 (0.9-1.1) Activated Partial Thromboplast Time 35 SEC (23-33) H Urine Color Pale yellow Urine Appearance Slightly cloudy Urine pH 9 (4.5-8.0) Urine Specific [place] 1.010 (1.005-1.035) Urine Protein 2+ (NEGATIVE) H Urine Glucose (UA) Negative (NEGATIVE) Urine Ketones Negative (NEGATIVE) Urine Blood 1+ (NEGATIVE) H Urine Nitrite Positive (NEGATIVE) H Urine Bilirubin Negative (NEGATIVE) Urine Urobilinogen Normal MG/DL (0.0-1.0) Urine Leukocyte Esterase 3+ (NEGATIVE) H Urine RBC 2-4 /HPF (0 - 0) H Urine WBC 5-10 /HPF (0 - 0) H Urine Squamous Epithelial Cells None /LPF (NONE/OCC) Urine Calcium Oxalate Crystals Few /LPF (NONE) Urine Amorphous Sediment Many /LPF (NONE) H Urine Bacteria Many /HPF (NONE) H Sodium Level 134 MMOL/L (136-145) L 143 MMOL/L (136-145) Potassium Level 3.7 MMOL/L (3.5-5.1) 3.2 MMOL/L (3.5-5.1) L Chloride Level 99 MMOL/L (98-107) 109 MMOL/L (98-107) H Carbon Dioxide Level 27 MMOL/L (21-32) 22 MMOL/L (21-32) Anion Gap 9 mmol/L (5-15) 12 mmol/L (5-15) Blood Urea Nitrogen 15 mg/dL (7-18) 10 mg/dL (7-18) Creatinine 0.8 MG/DL (0.55-1.30) 0.7 MG/DL (0.55-1.30) Estimat Glomerular Filtration Rate > 60 mL/min (>60) > 60 mL/min (>60) Glucose Level 131 MG/DL (74-106) H 119 MG/DL (74-106) H Lactic Acid Level 2.00 mmol/L (0.4-2.0) Calcium Level 9.2 MG/DL (8.5-10.1) 7.8 MG/DL (8.5-10.1) L Total Bilirubin 0.3 MG/DL (0.2-1.0) Aspartate Amino Transf (AST/SGOT) 12 U/L (15-37) L Alanine Aminotransferase (ALT/SGPT) 12 U/L (12-78) Alkaline Phosphatase 246 U/L (46-116) H Total Creatine Kinase 49 U/L (26-308) Creatine Kinase MB 3.2 NG/ML (0.0-3.6) Creatine Kinase MB Relative Index 6.5 Troponin I 0.000 ng/mL (0.000-0.056) Total Protein 7.5 G/DL (6.4-8.2) Albumin 1.8 G/DL (3.4-5.0) L Globulin 5.7 g/dL Albumin/Globulin Ratio 0.3 (1.0-2.7) L Lipase 44 U/L (73-393) L Random Amikacin Level Pending Microbiology Date/Time Source Procedure Growth Status 10/23/19 15:13 Urine,Clean Catch Urine Culture - Preliminary Resulted 10/23/19 18:55 Rectum Received Height (Feet): 5 Height (Inches): 7.00 Weight (Pounds): 105 Medications Current Medications Medications (Trade) Dose Ordered Sig/Mya Route PRN Reason Start Time Stop Time Status Last Admin Dose Admin Acetaminophen (Tylenol) 650 mg Q4H PRN ORAL Mild Pain (Pain Scale 1-3) 10/23/19 17:30 11/22/19 17:29 Acetaminophen/ Hydrocodone Bitart ([place] 5/325) 1 tab Q4H PRN ORAL Moderate Pain (Pain Scale 4-6) 10/23/19 20:15 10/30/19 20:14 Acetaminophen/ Hydrocodone Bitart ([place] 5/325) 2 tab Q4H PRN ORAL Severe Pain (Pain Scale 7-10) 10/23/19 20:15 10/30/19 20:14 10/24/19 04:58 Albuterol/ Ipratropium (Albuterol/ Ipratropium) 3 ml Q6H PRN HHN Shortness of Breath 10/23/19 17:30 10/28/19 17:29 Amikacin Protocol (Amikacin pharmacy to dose) 1 ea DAILY PRN MISC Per rx protocol 10/23/19 19:30 11/22/19 19:29 Amikacin Sulfate 1000 mg/Sodium Chloride 114 ml @ 114 mls/hr Q24H IV 10/23/19 21:00 10/30/19 20:59 10/23/19 20:43 Ascorbic Acid (Vitamin C) 500 mg DAILY ORAL 10/24/19 09:00 11/23/19 08:59 10/24/19 08:54 Baclofen (Lioresal) 10 mg THREE TIMES A DAY ORAL 10/23/19 18:00 11/22/19 17:59 10/24/19 08:54 Chlorhexidine Gluconate (Simran-Hex 2%) 1 applic DAILY@2000 TOPIC 10/24/19 20:00 01/22/20 19:59 Clonazepam (KlonoPIN) 0.5 mg Q8HR ORAL 10/23/19 21:00 10/30/19 20:59 10/24/19 05:03 Dextrose (Dextrose 50%) 25 ml Q30M PRN IV Hypoglycemia 10/23/19 17:30 01/21/20 17:29 Dextrose (Dextrose 50%) 50 ml Q30M PRN IV Hypoglycemia 10/23/19 17:30 01/21/20 17:29 Diphenhydramine HCl (Benadryl) 25 mg Q6H PRN ORAL Itching/Pruritis 10/23/19 17:30 11/22/19 17:29 Docusate Sodium (Colace) 100 mg EVERY 12 HOURS ORAL 10/23/19 21:00 11/22/19 20:59 10/24/19 08:54 Dopamine HCl/ Dextrose 250 ml @ 0 mls/hr Q24H IV 10/24/19 06:15 01/22/20 06:14 10/24/19 06:16 Ferrous Sulfate (Feosol) 325 mg DAILY ORAL 10/24/19 09:00 01/22/20 08:59 10/24/19 08:54 Gabapentin (Neurontin) 400 mg Q8HR ORAL 10/23/19 22:00 11/22/19 21:59 10/24/19 05:03 Heparin Sodium (Porcine) (Heparin 5000 units/ml) 5,000 units EVERY 12 HOURS SUBQ 10/24/19 09:00 12/08/19 08:59 10/24/19 08:54 Iohexol (OMNIPAQUE-300 100ml) 100 ml NOW PRN INJ Radiology Procedure 10/23/19 15:15 10/25/19 15:13 Meropenem 1 gm/ Sodium Chloride 100 ml @ 200 mls/hr Q8HR IVPB 10/23/19 22:00 10/28/19 21:59 10/24/19 05:03 Midodrine (Pro-Amatine) 10 mg THREE TIMES A DAY ORAL 10/23/19 18:00 01/21/20 17:59 10/24/19 08:54 Norepinephrine Bitartrate 250 ml @ 0 mls/hr Q24H IV 10/23/19 21:00 01/21/20 20:59 10/23/19 20:38 Ondansetron HCl (Zofran) 4 mg Q6H PRN IVP Nausea & Vomiting 10/23/19 17:30 11/22/19 17:29 Potassium Chloride 40 meq/ Dextrose 570 ml @ 142.5 mls/ hr ONCE IV 10/24/19 10:00 10/24/19 14:00 10/24/19 10:30 Sodium Chloride 1,000 ml @ 75 mls/hr [id number] IVLG 10/23/19 18:28 11/22/19 18:27 10/24/19 05:37 Vancomycin HCl (Vanco pharmacy to dose) 1 ea DAILY PRN MISC Per rx protocol 10/23/19 17:30 11/22/19 17:29 Vancomycin HCl 1 gm/Sodium Chloride 275 ml @ 183.708 mls/hr Q12HR@0500,1700 IVPB 10/24/19 05:00 10/29/19 04:59 10/24/19 05:37 Zinc Sulfate (Zinc Sulfate) 220 mg DAILY ORAL 10/24/19 09:00 01/22/20 08:59 10/24/19 08:54 Assessment/Plan Problem List: (1) Abdominal distension Assessment & Plan: abd distention soft non tender ostomy viable and reduced KUB ordered pending results ICD Codes: R14.0 - Abdominal distension (gaseous) SNOMED: 83820588 (2) Anemia ICD Codes: D64.9 - Anemia, unspecified SNOMED: 365807261 (3) Encephalopathy ICD Codes: G93.40 - Encephalopathy, unspecified SNOMED: 00371334 (4) Drug (multiple) resistant infection SNOMED: 89896319, 91392977022868 (5) Urinary tract infection in male ICD Codes: N39.0 - Urinary tract infection, site not specified SNOMED: 85254055, 373705785 (6) Hypokalemia ICD Codes: E87.6 - Hypokalemia SNOMED: 17888968 (7) Femur fracture ICD Codes: S72.90XA - Unspecified fracture of unspecified femur, initial encounter for closed fracture SNOMED: 62805545 (8) Hyponatremia ICD Codes: E87.1 - Hypo-osmolality and hyponatremia SNOMED: 69529875 (9) Sepsis ICD Codes: A41.9 - Sepsis, unspecified organism SNOMED: 80206752 (10) UTI (urinary tract infection) ICD Codes: N39.0 - Urinary tract infection, site not specified SNOMED: 81942911 (11) Hypotension ICD Codes: I95.9 - Hypotension, unspecified SNOMED: 65634920 (12) Vomiting ICD Codes: R11.10 - Vomiting, unspecified SNOMED: 751598901 (13) Left leg pain ICD Codes: M79.605 - Pain in left leg SNOMED: 920297994 (14) Decubital ulcer Assessment & Plan: Pt presented on admission with multiple Pressure injuries.Colostomy abd okay mild distention, currently reduced Unstageable Pressure Injury R lumbar sacral area(L)2cm x (W)3.5cm.75% soft necrosis, 25% mixed erythema with slough at base of wound. Marginal erythema along borders and periwound. 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 Beefy red granulation at base of wound scattered areas of Biofilm. Sacral bone is palpable. Scattered areas of erythema along borders.Borders are irregular -an area of mixed soft necrosis and slough with marginal erythema extending away from wound noted at approx 2-3o"clock along borders(L)1.2cm x (W)3.3cm. No odor noted from Sacral wound. Small amt serosanguineous exudate noted. Full thickness stage 4 Pressure injury with undermined borders and tunneling R Ischium(L)7.5cm x (W)4.8cm x (D)1cm ,undermining clockwise 11-3 by 3.1cm @12o' clock,tunneling @5o'clock by 2.3cm. Beefy- red granulation with small amt Biofilm noted at base of wound. Marginal erythema along borders.Small amt serosanguineous exudate noted. No erythema or evidence of further skin breakdown periwound. Three small areas that are in cluster that are red and indurated . Noted to R Iliac(L)4cm x (W)1.5cm. Bony protrusion with erythema L trochanteric. Historical scar noted at L trochanter. Unstageable Pressure injury medial L Knee (L)2.6cm x (W)1.5cm. 100% yellow slough at base of wound. Marginal erythema along edges. Small amt singer coloured exudate. No odor noted. Unstageable Pressure injury medial R knee(L)1.8cm x (W)1.3cm. 100% slough at base of wound. Borders are macerated. Small amt singer coloured exudate noted. No erythema induration or fluctuance periwound. Loose dry scab R pre tibial(L)2cm x (W)0.9cm.smaller dry scab noted laterally R tibia(L)0.7cm x (W)0.6cm. Resolving Pressure injury Plantar L Heel(L)7cm x (W)4cm. Base of wound is 75% dry and pale in colour and bone is palpable when minimally palpated.Two small wounds within wound bed. At medial aspect of L heel is indurated purpl area with maroon borders(L)1.5cm x (W)1.4cm.At lateral aspect of plantar is unstageable Pressure injury. 50% soft necrosis ,50% surrounding maroon borders.No odor or exudate noted. Resolving Pressure injury R heel. Base of wound is 40% soft necrosis,60% pale pink. Edges are adherent to base of wound. No odor or exudate noted . Periwound heel is boggy but blanchable. Non-viable tissue on sacral wounds removed with curette by Dr. Salgado. Wounds are more viable.Each wounds cleansed with Saline. Therahoney applied to wound R lumbar Sacral area and covered with Optifoam drsg. Cavilon Skin Barrier applied to bony protrusion L trochanter and covered with Optifoam drsg. Cavilon Skin Barrier applied to Three areas on R iliac. Covered with Optifoam drsg. Placement of NPWT:Cavilon Skin Barrier applied to borders of both Sacral and R trochanteric wounds then lined with Transparent drape sheet. Additional skin prep and transparent drsg then bridged from R ischial wound to R pelvis . Granulofoam packings cut to conformed to shape and size of Sacral and R ischial wounds. Foam bridge created between Sacral and R Ischial wounds. Granulofoam bridge then created to R pelvis. Trac Pad placed at R pelvis. NPWT initiated at 125mm/Hg to continuous suction. Pt tolerated procedure. Wounds medial R and L knees cleansed with Saline. Therahoney applied to each wound respectively. Each wound covered with Optifoam drsgs.R and L Heel swabbed with Betadine and each heel covered with Optifoam drsgs. An APM/SUMI Mattress placed on pt's bed. Pt positioned with pillows and with both heels floated with pillow off mattress. Tx.Plan: Cleanse wounds Medial R and L knee and lumbar -sacral wounds with Saline.Apply Cavilon periwound. Cover each wound with Optifoam drsgs every 3 days and prn. Cleanse Sacral and R Ischial wounds with Saline. Apply Cavilon Skin Barrier along Borders of each wound. Place transparent drape sheet along borders of each wound and space between sacral and R ischium. Cut Granulofoam to size of each wound. Create Foam bridge between sacral and R ischial wound.Create second foam bridge from R Ischium to R Pelvis. Place Trac Pad at R Pelvis. NPWT to continuous suction at 125mm/Hg. Apply Betadine to R and L Heel wounds . Cover each heel with Optifoam drsg. Change every 3 days and prn. Cover dry scabs R tibia with Optifoam drsg. change every 3 days and prn. Reposition at least every 2hours or as tolerated. Off-load heels with pillow. Place pillow between knees. APM/SUMI Mattress overlay. ICD Codes: L89.90 - Pressure ulcer of unspecified site, unspecified stage SNOMED: 010663002 (15) SEAN (acute kidney injury) ICD Codes: N17.9 - Acute kidney failure, unspecified SNOMED: 3732144, 84788731 (16) Ileostomy prolapse Assessment & Plan: currently reduced but abd distended pending films ICD Codes: K94.19 - Other complications of enterostomy SNOMED: 385871582 Cornelius Salgado Oct 24, 2019 12:43
--- NOTE | 2019-10-24 13:02 | Infectious Diseases Prog Note ---
Assessment/Plan Assessment/Plan A) 1) sepsis, shock, uti, hx esbl, ? sacral wound infection 2) pmh noted 3) allergies - nkda P) 1) vancomycin, meropenem and amikacin 2) check cultures, labs and chest x-ray 3) d/w primary team and surgery Subjective Constitutional: Reports: other - more alert ; Denies: fever HEENT: Denies: congestion Respiratory: Denies: shortness of breath Cardiovascular: Denies: chest pain Gastrointestinal/Abdominal: Denies: nausea, vomiting Genitourinary: Reports: other - + donohue Allergies: Coded Allergies: No Known Allergies (Unverified , 08/15/19) Objective Last 24 Hour Vital Signs Date Time Temp Pulse Resp B/P (MAP) Pulse Ox O2 Delivery O2 Flow Rate FiO2 10/24/19 07:00 93/58 10/24/19 06:16 128/64 10/24/19 05:28 97.8 10/24/19 04:00 Room Air 10/24/19 04:00 60 10/24/19 00:00 60 10/24/19 00:00 Room Air 10/23/19 21:45 55 16 116/67 (83) 100 10/23/19 21:30 57 17 110/66 (81) 100 10/23/19 21:15 59 15 115/66 (82) 100 10/23/19 21:00 60 15 124/48 (73) 100 10/23/19 20:45 58 15 114/66 (82) 100 10/23/19 20:38 112/59 10/23/19 20:30 57 16 112/59 (76) 100 10/23/19 20:15 59 15 95/57 (70) 100 10/23/19 20:10 60 11 101/60 (74) 100 10/23/19 20:00 69 12 112/74 (87) 100 10/23/19 20:00 63 10/23/19 20:00 Room Air 10/23/19 19:52 Room Air 10/23/19 19:45 61 14 100/71 (81) 100 10/23/19 19:30 64 14 131/71 (91) 100 10/23/19 19:24 98.6 68 16 122/62 99 Room Air 10/23/19 19:15 65 14 119/65 (83) 100 10/23/19 19:00 97.8 65 14 126/62 (83) 100 10/23/19 18:20 98.6 68 16 129/66 99 Room Air 10/23/19 18:10 160/100 10/23/19 18:04 75/55 10/23/19 18:00 98.6 68 16 75/55 99 Room Air 10/23/19 17:59 80/51 10/23/19 17:15 98.6 68 16 75/44 99 Room Air 10/23/19 16:12 98.6 77 16 88/54 96 Room Air 10/23/19 15:12 80 16 Room Air 10/23/19 15:12 98.6 77 16 94/55 96 Room Air 10/23/19 14:59 98.6 80 16 92/55 (67) 96 Room Air Height (Feet): 5 Height (Inches): 7.00 Weight (Pounds): 105 General Appearance: no acute distress HEENT: normocephalic, atraumatic, anicteric Respiratory/Chest: crackles/rales, rhonchi - bilaterally Cardiovascular: normal rate, regular rhythm Abdomen: normal bowel sounds, soft, non tender, no organomegaly Microbiology Date/Time Source Procedure Growth Status 10/23/19 15:13 Urine,Clean Catch Urine Culture - Preliminary Resulted 10/23/19 18:55 Rectum Received Laboratory Tests Test 10/23/19 15:13 10/24/19 02:50 10/24/19 09:00 White Blood Count 9.7 K/UL (4.8-10.8) 6.8 K/UL (4.8-10.8) Red Blood Count 3.15 M/UL (4.70-6.10) L 2.77 M/UL (4.70-6.10) L Hemoglobin 8.2 G/DL (14.2-18.0) L 7.2 G/DL (14.2-18.0) L Hematocrit 26.0 % (42.0-52.0) L 22.9 % (42.0-52.0) L Mean Corpuscular Volume 83 FL (80-99) 83 FL (80-99) Mean Corpuscular Hemoglobin 26.1 PG (27.0-31.0) L 25.9 PG (27.0-31.0) L Mean Corpuscular Hemoglobin Concent 31.7 G/DL (32.0-36.0) L 31.3 G/DL (32.0-36.0) L Red Cell Distribution Width 19.5 % (11.6-14.8) H 18.5 % (11.6-14.8) H Platelet Count 561 K/UL (150-450) H 502 K/UL (150-450) H Mean Platelet Volume 4.5 FL (6.5-10.1) L 4.1 FL (6.5-10.1) L Neutrophils (%) (Auto) 65.4 % (45.0-75.0) % (45.0-75.0) Lymphocytes (%) (Auto) 26.7 % (20.0-45.0) % (20.0-45.0) Monocytes (%) (Auto) 5.1 % (1.0-10.0) % (1.0-10.0) Eosinophils (%) (Auto) 1.2 % (0.0-3.0) % (0.0-3.0) Basophils (%) (Auto) 1.6 % (0.0-2.0) % (0.0-2.0) Prothrombin Time 11.9 SEC (9.30-11.50) H Prothromb Time International Ratio 1.1 (0.9-1.1) Activated Partial Thromboplast Time 35 SEC (23-33) H Urine Color Pale yellow Urine Appearance Slightly cloudy Urine pH 9 (4.5-8.0) Urine Specific [place] 1.010 (1.005-1.035) Urine Protein 2+ (NEGATIVE) H Urine Glucose (UA) Negative (NEGATIVE) Urine Ketones Negative (NEGATIVE) Urine Blood 1+ (NEGATIVE) H Urine Nitrite Positive (NEGATIVE) H Urine Bilirubin Negative (NEGATIVE) Urine Urobilinogen Normal MG/DL (0.0-1.0) Urine Leukocyte Esterase 3+ (NEGATIVE) H Urine RBC 2-4 /HPF (0 - 0) H Urine WBC 5-10 /HPF (0 - 0) H Urine Squamous Epithelial Cells None /LPF (NONE/OCC) Urine Calcium Oxalate Crystals Few /LPF (NONE) Urine Amorphous Sediment Many /LPF (NONE) H Urine Bacteria Many /HPF (NONE) H Sodium Level 134 MMOL/L (136-145) L 143 MMOL/L (136-145) Potassium Level 3.7 MMOL/L (3.5-5.1) 3.2 MMOL/L (3.5-5.1) L Chloride Level 99 MMOL/L (98-107) 109 MMOL/L (98-107) H Carbon Dioxide Level 27 MMOL/L (21-32) 22 MMOL/L (21-32) Anion Gap 9 mmol/L (5-15) 12 mmol/L (5-15) Blood Urea Nitrogen 15 mg/dL (7-18) 10 mg/dL (7-18) Creatinine 0.8 MG/DL (0.55-1.30) 0.7 MG/DL (0.55-1.30) Estimat Glomerular Filtration Rate > 60 mL/min (>60) > 60 mL/min (>60) Glucose Level 131 MG/DL (74-106) H 119 MG/DL (74-106) H Lactic Acid Level 2.00 mmol/L (0.4-2.0) Calcium Level 9.2 MG/DL (8.5-10.1) 7.8 MG/DL (8.5-10.1) L Total Bilirubin 0.3 MG/DL (0.2-1.0) Aspartate Amino Transf (AST/SGOT) 12 U/L (15-37) L Alanine Aminotransferase (ALT/SGPT) 12 U/L (12-78) Alkaline Phosphatase 246 U/L (46-116) H Total Creatine Kinase 49 U/L (26-308) Creatine Kinase MB 3.2 NG/ML (0.0-3.6) Creatine Kinase MB Relative Index 6.5 Troponin I 0.000 ng/mL (0.000-0.056) Total Protein 7.5 G/DL (6.4-8.2) Albumin 1.8 G/DL (3.4-5.0) L Globulin 5.7 g/dL Albumin/Globulin Ratio 0.3 (1.0-2.7) L Lipase 44 U/L (73-393) L Random Amikacin Level Pending Current Medications Medications (Trade) Dose Ordered Sig/Mya Route PRN Reason Start Time Stop Time Status Last Admin Dose Admin Acetaminophen (Tylenol) 650 mg Q4H PRN ORAL Mild Pain (Pain Scale 1-3) 10/23/19 17:30 11/22/19 17:29 Acetaminophen/ Hydrocodone Bitart ([place] 5/325) 1 tab Q4H PRN ORAL Moderate Pain (Pain Scale 4-6) 10/23/19 20:15 10/30/19 20:14 Acetaminophen/ Hydrocodone Bitart ([place] 5/325) 2 tab Q4H PRN ORAL Severe Pain (Pain Scale 7-10) 10/23/19 20:15 10/30/19 20:14 10/24/19 04:58 Albuterol/ Ipratropium (Albuterol/ Ipratropium) 3 ml Q6H PRN HHN Shortness of Breath 10/23/19 17:30 10/28/19 17:29 Amikacin Protocol (Amikacin pharmacy to dose) 1 ea DAILY PRN MISC Per rx protocol 10/23/19 19:30 11/22/19 19:29 Amikacin Sulfate 1000 mg/Sodium Chloride 114 ml @ 114 mls/hr Q24H IV 10/23/19 21:00 10/30/19 20:59 10/23/19 20:43 Ascorbic Acid (Vitamin C) 500 mg DAILY ORAL 10/24/19 09:00 11/23/19 08:59 10/24/19 08:54 Baclofen (Lioresal) 10 mg THREE TIMES A DAY ORAL 10/23/19 18:00 11/22/19 17:59 10/24/19 08:54 Chlorhexidine Gluconate (Simran-Hex 2%) 1 applic DAILY@2000 TOPIC 10/24/19 20:00 01/22/20 19:59 Clonazepam (KlonoPIN) 0.5 mg Q8HR ORAL 10/23/19 21:00 10/30/19 20:59 10/24/19 05:03 Dextrose (Dextrose 50%) 25 ml Q30M PRN IV Hypoglycemia 10/23/19 17:30 01/21/20 17:29 Dextrose (Dextrose 50%) 50 ml Q30M PRN IV Hypoglycemia 10/23/19 17:30 01/21/20 17:29 Diphenhydramine HCl (Benadryl) 25 mg Q6H PRN ORAL Itching/Pruritis 10/23/19 17:30 11/22/19 17:29 Docusate Sodium (Colace) 100 mg EVERY 12 HOURS ORAL 10/23/19 21:00 11/22/19 20:59 10/24/19 08:54 Dopamine HCl/ Dextrose 250 ml @ 0 mls/hr Q24H IV 10/24/19 06:15 01/22/20 06:14 10/24/19 06:16 Ferrous Sulfate (Feosol) 325 mg DAILY ORAL 10/24/19 09:00 01/22/20 08:59 10/24/19 08:54 Gabapentin (Neurontin) 400 mg Q8HR ORAL 10/23/19 22:00 11/22/19 21:59 10/24/19 05:03 Heparin Sodium (Porcine) (Heparin 5000 units/ml) 5,000 units EVERY 12 HOURS SUBQ 10/24/19 09:00 12/08/19 08:59 10/24/19 08:54 Iohexol (OMNIPAQUE-300 100ml) 100 ml NOW PRN INJ Radiology Procedure 10/23/19 15:15 10/25/19 15:13 Meropenem 1 gm/ Sodium Chloride 100 ml @ 200 mls/hr Q8HR IVPB 10/23/19 22:00 10/28/19 21:59 10/24/19 05:03 Midodrine (Pro-Amatine) 10 mg THREE TIMES A DAY ORAL 10/23/19 18:00 01/21/20 17:59 10/24/19 08:54 Norepinephrine Bitartrate 250 ml @ 0 mls/hr Q24H IV 10/23/19 21:00 01/21/20 20:59 10/23/19 20:38 Ondansetron HCl (Zofran) 4 mg Q6H PRN IVP Nausea & Vomiting 10/23/19 17:30 11/22/19 17:29 Potassium Chloride 40 meq/ Dextrose 570 ml @ 142.5 mls/ hr ONCE IV 10/24/19 10:00 10/24/19 14:00 10/24/19 10:30 Sodium Chloride 1,000 ml @ 75 mls/hr [id number] IVLG 10/23/19 18:28 11/22/19 18:27 10/24/19 05:37 Vancomycin HCl (Vanco pharmacy to dose) 1 ea DAILY PRN MISC Per rx protocol 10/23/19 17:30 11/22/19 17:29 Vancomycin HCl 1 gm/Sodium Chloride 275 ml @ 183.708 mls/hr Q12HR@0500,1700 IVPB 10/24/19 05:00 10/29/19 04:59 10/24/19 05:37 Zinc Sulfate (Zinc Sulfate) 220 mg DAILY ORAL 10/24/19 09:00 01/22/20 08:59 10/24/19 08:54 Sharif Painting MD Oct 24, 2019 13:02
--- NOTE | 2019-10-24 14:30 | Consultation ---
DATE OF CONSULTATION: 10/24/2019 CARDIOLOGY CONSULTATION CONSULTING PHYSICIAN: Carloz Estes MD. REFERRING PHYSICIAN: John Chambers MD. ADDITIONAL REFERRING PHYSICIAN: Thalia Marx MD. REASON FOR CONSULTATION: Hypotension and bradycardia. HISTORY OF PRESENT ILLNESS: The patient is a 59-year-old gentleman with history of paraplegia, sacral decubitus, anemia, hypertension, and multiple drug-resistant urinary tract infection, sent from a snf facility for hypotension and generalized weakness. The patient was in the ER, the patient was found to be hypotensive with blood pressure in the 90 as well as bradycardia, heart rate as well as 44. The patient was started on Levophed and dopamine, was transferred to intensive care unit. At the time of my evaluation, the patient is alert, responsive, and is able to verbalize. Denies any chest pain or shortness of breath. The Levophed was just discontinued. The patient kept on dopamine for hypotension and bradycardia. REVIEW OF SYSTEMS: Negative other than what was mentioned in the history of present illness. PAST MEDICAL HISTORY: As mentioned above. MEDICATIONS: Per reconciliation. SOCIAL HISTORY: He lives in prison. Does not smoke or drink alcohol. PHYSICAL EXAMINATION: VITAL SIGNS: Show blood pressure of 92/58, pulse is 65, respirations 18, and he is afebrile. HEAD AND NECK: Showed no JVD. LUNGS: Coarse rhonchi. CARDIOVASCULAR: Shows regular S1 and S2 with no gallop. ABDOMEN: Soft. EXTREMITIES: No pitting edema, however, has pressure ulcers. LABORATORY AND DIAGNOSTIC DATA: His labs show white count of 6.8, hemoglobin of 7.2, hematocrit 22.9, and platelet platelet count of 502,000. Sodium is 142, potassium 3.2, BUN of 10, creatinine 0.7, and glucose of 119. Troponin is negative. INR is 1.1. Urinalysis showed many bacteria. ASSESSMENT AND PLAN: 1. Hypotension likely due to septic shock. The patient is also diuresing heavily at 300 mL an hour. We will put the patient normal saline bolus change Levophed. Continue the dopamine, in view of the patient's bradycardia also. We will maintain the patient continues on IV antibiotic with vancomycin and meropenem and continue dopamine. The patient also is on amikacin. 2. Bradycardia. Continue dopamine. Apparently, the patient has chronic bradycardia and was on midodrine that can contribute to bradycardia, but currently off of midodrine. 3. Paraplegia. 4. Urinary tract infection, followed by Dr. Painting on broad-spectrum IV antibiotic. 5. Decubitus ulcers with sacral decubitus. Thank you very much for allowing me to participate in the care of this patient. Please do not hesitate to contact me for any questions regarding my evaluation. Carloz Estes M.D. DR: HASEEB JOB#: [id number] CC:
[2019-10-24] MEDS ORDERED: PRO-STAT LIQUID30 ML ORAL (18:21)
[2019-10-24] MEDS ORDERED: TYLENOL EXTRA500 MG ORAL (18:22)
[2019-10-24] MEDS: Dyna-Hex 2% Top Sol 2oz TOPIC SCH (19:59)
--- NOTE | 2019-10-24 20:57 | Consultation ---
History of Present Illness General Chief Complaint: General Complaint Reason for Consultation: Polyuria Present Illness HPI 59-year-old male with past medical history of paraplegia, sacral decubitus ulcer , anemia, hypertension, ESBL multidrug-resistant urinary tract infection sent from alf facility by ambulance for hypotension, general weakness and confusion. In ED he was noted to be altered with mild hypotension with SBP in 90s, lactate 2.0, UA with mild pyuria. Patient was to be admitted to tele but was upgraded to MICU due to persistent hypotension and bradycardia to 44, started on Levophed and dopamine Allergies: Coded Allergies: No Known Allergies (Unverified , 08/15/19) Medication History Scheduled Amino Acids/Protein Hydrolys (Pro-Stat Liquid), 30 ML ORAL THREE TIMES A DAY, ( Reported) Ascorbic Acid* (Ascorbic Acid*), 500 MG ORAL DAILY, (Reported) Baclofen* (Baclofen*), 10 MG ORAL THREE TIMES A DAY, (Reported) Clonazepam* (Klonopin*), 0.5 MG ORAL TID, (Reported) Cranberry Fruit (Cranberry), 450 MG PO DAILY, (Reported) Docusate Sodium* (Docusate Sodium*), 100 MG ORAL TWICE A DAY, (Reported) Ferrous Sulfate* (Ferrous Sulfate*), 325 MG ORAL DAILY, (Reported) Gabapentin* (Gabapentin*), 400 MG ORAL THREE TIMES A DAY, (Reported) Heparin Sod (Porcine) (Heparin Sodium*), 5,000 UNITS SUBQ EVERY 12 HOURS, ( Reported) Multivitamins* (Multivitamins*), 1 TAB ORAL DAILY, (Reported) Omeprazole (Omeprazole), 20 MG ORAL TWICE A DAY, (Reported) Scheduled PRN Acetaminophen* (Acetaminophen 325MG Tablet*), 650 MG ORAL Q6H PRN for pain/fever , (Reported) Acetaminophen* (Tylenol Extra Strength*), 500 MG ORAL DAILY PRN for pain management wound care, (Reported) Hydrocodone Bit/Acetaminophen 10-325* ([place]wn 10-325*), 1 TAB ORAL Q6H PRN for For Pain, (Reported) Magnesium Hydroxide* (Milk Of Magnesia*), 30 ML ORAL DAILY PRN for Constipation, (Reported) Tramadol Hcl* (Ultram*), 50 MG ORAL Q6H PRN for For Pain, (Reported) Discontinued Medications Midodrine* (Proamatine*), 10 MG ORAL THREE TIMES A DAY, (Reported) Discontinued Reason: Therapy completed Zinc Sulfate (Zinc Sulfate*), 220 MG ORAL DAILY, (Reported) Discontinued Reason: Therapy completed Patient History Healthcare decision maker Resuscitation status Advanced Directive on File Review of Systems All Other Systems: negative except mentioned in HPI Physical Exam General Appearance: lethargic Lines, tubes and drains: peripheral, central line HEENT: normocephalic Neck: non-tender, normal alignment Respiratory/Chest: lungs clear Cardiovascular/Chest: normal peripheral pulses, normal rate, regular rhythm Abdomen: normal bowel sounds, non tender Last 24 Hour Vital Signs Date Time Temp Pulse Resp B/P (MAP) Pulse Ox O2 Delivery O2 Flow Rate FiO2 10/24/19 20:31 98.7 10/24/19 20:00 98.5 86 12 119/76 (90) 96 10/24/19 20:00 Room Air 10/24/19 20:00 80 10/24/19 19:45 77 17 117/54 (75) 98 10/24/19 19:30 77 17 110/93 (99) 99 10/24/19 19:00 113/69 10/24/19 19:00 74 16 113/69 (84) 98 10/24/19 18:45 83 18 113/72 (86) 97 10/24/19 18:30 89 24 111/69 (83) 95 10/24/19 18:15 80 20 118/75 (89) 100 10/24/19 18:00 58 20 122/71 (88) 99 10/24/19 18:00 122/71 10/24/19 17:45 55 18 115/57 (76) 99 10/24/19 17:30 78 19 119/71 (87) 99 10/24/19 17:15 79 16 107/69 (82) 99 10/24/19 17:00 100/66 10/24/19 17:00 79 18 100/66 (77) 98 10/24/19 16:45 74 17 102/65 (77) 97 10/24/19 16:30 91 11 105/66 (79) 97 10/24/19 16:15 71 16 124/78 (93) 98 10/24/19 16:00 Room Air 10/24/19 16:00 74 10/24/19 16:00 101/62 8/11/20 16:00 98.7 85 17 101/62 (75) 98 10/24/19 15:45 74 20 145/82 (103) 99 10/24/19 15:30 60 15 140/80 (100) 100 10/24/19 15:15 60 15 146/71 (96) 100 10/24/19 15:00 55 16 146/69 (94) 99 10/24/19 15:00 146/71 10/24/19 14:45 74 19 125/73 (90) 98 10/24/19 14:30 88/61 10/24/19 14:30 74 17 88/61 (70) 99 10/24/19 14:15 79 17 86/58 (67) 94 10/24/19 14:00 78 19 80/62 (68) 100 10/24/19 14:00 80/62 10/24/19 13:45 78 16 112/57 (75) 100 10/24/19 13:30 84 15 107/52 (70) 99 10/24/19 13:15 89 20 84/60 (68) 79 10/24/19 13:15 84/60 10/24/19 13:03 79 17 99/58 (72) 100 10/24/19 13:00 77 19 95/60 (72) 100 10/24/19 13:00 95/60 10/24/19 12:45 93 17 102/65 (77) 99 10/24/19 12:30 87 18 108/63 (78) 100 10/24/19 12:15 80 16 106/64 (78) 100 10/24/19 12:00 60 10/24/19 12:00 Room Air 10/24/19 12:00 98/61 10/24/19 12:00 98.4 90 19 98/61 (73) 99 10/24/19 11:45 66 16 123/58 (79) 100 10/24/19 11:30 76 16 92/62 (72) 99 10/24/19 11:15 80 15 110/52 (71) 100 10/24/19 11:00 91/54 10/24/19 11:00 80 17 91/54 (66) 100 10/24/19 10:45 97 16 89/52 (64) 99 10/24/19 10:30 82 16 149/67 (94) 99 10/24/19 10:15 83 18 137/63 (87) 98 10/24/19 10:00 83 16 126/67 (86) 99 10/24/19 10:00 126/67 10/24/19 09:45 72 18 124/67 (86) 99 10/24/19 09:30 77 16 121/66 (84) 100 10/24/19 09:15 88 17 112/70 (84) 99 10/24/19 09:04 80 17 93/48 (63) 97 10/24/19 09:00 77 18 77/43 (54) 98 10/24/19 09:00 77/43 10/24/19 08:45 90 19 99/58 (72) 97 10/24/19 08:30 71 16 98/47 (64) 96 10/24/19 08:15 83 16 94/52 (66) 96 10/24/19 08:00 98/52 10/24/19 08:00 Room Air 10/24/19 08:00 98.7 90 24 98/52 (67) 93 10/24/19 07:45 83 16 124/60 (81) 95 10/24/19 07:30 87 15 106/60 (75) 97 10/24/19 07:00 93/58 10/24/19 06:30 19 92/53 (66) 91 10/24/19 06:16 128/64 10/24/19 06:15 16 139/70 (93) 99 10/24/19 06:00 17 128/64 (85) 98 10/24/19 05:59 16 133/70 (91) 99 10/24/19 05:45 17 99/58 (72) 98 10/24/19 05:30 17 99/63 (75) 99 10/24/19 05:15 15 93/53 (66) 98 10/24/19 05:00 16 98/57 (71) 98 10/24/19 04:45 16 106/57 (73) 99 10/24/19 04:30 16 90/64 (73) 97 10/24/19 04:15 22 110/71 (84) 97 10/24/19 04:00 Room Air 10/24/19 04:00 97.9 15 109/60 (76) 99 10/24/19 04:00 60 10/24/19 03:45 15 110/70 (83) 99 10/24/19 03:30 15 106/65 (79) 99 10/24/19 03:15 14 119/61 (80) 99 10/24/19 03:00 15 117/66 (83) 99 10/24/19 02:45 18 116/60 (78) 98 10/24/19 02:30 15 110/66 (81) 98 10/24/19 02:15 16 115/62 (79) 99 10/24/19 02:00 17 116/63 (80) 99 10/24/19 01:46 18 96/51 (66) 99 10/24/19 01:45 18 87/57 (67) 99 10/24/19 01:30 18 90/56 (67) 99 10/24/19 01:15 18 92/55 (67) 99 10/24/19 01:00 16 101/60 (74) 99 10/24/19 00:45 18 103/61 (75) 99 10/24/19 00:42 18 105/51 (69) 99 10/24/19 00:30 16 90/68 (75) 100 10/24/19 00:15 18 105/60 (75) 99 10/24/19 00:00 60 10/24/19 00:00 Room Air 10/24/19 00:00 98.4 14 94/58 (70) 99 10/23/19 23:45 17 98/66 (77) 99 10/23/19 23:30 17 94/63 (73) 100 10/23/19 23:15 16 106/60 (75) 99 10/23/19 23:00 17 100/60 (73) 99 10/23/19 22:45 17 90/58 (69) 99 10/23/19 22:32 17 98/60 (73) 99 10/23/19 22:15 17 101/66 (78) 99 10/23/19 22:00 16 111/67 (82) 100 10/23/19 21:45 55 16 116/67 (83) 100 10/23/19 21:30 57 17 110/66 (81) 100 10/23/19 21:15 59 15 115/66 (82) 100 10/23/19 21:00 60 15 124/48 (73) 100 Intake and Output 10/23/19 10/24/19 19:00 07:00 Intake Total 1988.280 ml Output Total 250 ml 1150 ml Balance -250 ml 838.280 ml Intake Oral 300 ml IV Total 1688.280 ml Output Urine Total 250 ml 1150 ml # Bowel Movements 2 Laboratory Tests Test 10/24/19 02:50 10/24/19 09:00 White Blood Count 6.8 K/UL (4.8-10.8) Red Blood Count 2.77 M/UL (4.70-6.10) L Hemoglobin 7.2 G/DL (14.2-18.0) L Hematocrit 22.9 % (42.0-52.0) L Mean Corpuscular Volume 83 FL (80-99) Mean Corpuscular Hemoglobin 25.9 PG (27.0-31.0) L Mean Corpuscular Hemoglobin Concent 31.3 G/DL (32.0-36.0) L Red Cell Distribution Width 18.5 % (11.6-14.8) H Platelet Count 502 K/UL (150-450) H Mean Platelet Volume 4.1 FL (6.5-10.1) L Neutrophils (%) (Auto) % (45.0-75.0) Lymphocytes (%) (Auto) % (20.0-45.0) Monocytes (%) (Auto) % (1.0-10.0) Eosinophils (%) (Auto) % (0.0-3.0) Basophils (%) (Auto) % (0.0-2.0) Sodium Level 143 MMOL/L (136-145) Potassium Level 3.2 MMOL/L (3.5-5.1) L Chloride Level 109 MMOL/L (98-107) H Carbon Dioxide Level 22 MMOL/L (21-32) Anion Gap 12 mmol/L (5-15) Blood Urea Nitrogen 10 mg/dL (7-18) Creatinine 0.7 MG/DL (0.55-1.30) Estimat Glomerular Filtration Rate > 60 mL/min (>60) Glucose Level 119 MG/DL (74-106) H Calcium Level 7.8 MG/DL (8.5-10.1) L Random Amikacin Level 13.4 MG/L Height (Feet): 5 Height (Inches): 7.00 Weight (Pounds): 105 Medications Current Medications Medications (Trade) Dose Ordered Sig/Mya Route PRN Reason Start Time Stop Time Status Last Admin Dose Admin Acetaminophen (Tylenol) 650 mg Q4H PRN ORAL Mild Pain (Pain Scale 1-3) 10/23/19 17:30 11/22/19 17:29 Acetaminophen/ Hydrocodone Bitart ([place] 5/325) 1 tab Q4H PRN ORAL Moderate Pain (Pain Scale 4-6) 10/23/19 20:15 10/30/19 20:14 Acetaminophen/ Hydrocodone Bitart ([place] 5/325) 2 tab Q4H PRN ORAL Severe Pain (Pain Scale 7-10) 10/23/19 20:15 10/30/19 20:14 10/24/19 20:01 Albuterol/ Ipratropium (Albuterol/ Ipratropium) 3 ml Q6H PRN HHN Shortness of Breath 10/23/19 17:30 10/28/19 17:29 Amikacin Protocol (Amikacin pharmacy to dose) 1 ea DAILY PRN MISC Per rx protocol 10/23/19 19:30 11/22/19 19:29 Amikacin Sulfate 750 mg/Sodium Chloride 113 ml @ 113 mls/hr Q24H IV 10/24/19 21:00 10/31/19 20:59 Ascorbic Acid (Vitamin C) 500 mg DAILY ORAL 10/24/19 09:00 11/23/19 08:59 10/24/19 08:54 Baclofen (Lioresal) 10 mg THREE TIMES A DAY ORAL 10/23/19 18:00 11/22/19 17:59 10/24/19 17:22 Chlorhexidine Gluconate (Simran-Hex 2%) 1 applic DAILY@2000 TOPIC 10/24/19 20:00 01/22/20 19:59 10/24/19 19:59 Clonazepam (KlonoPIN) 0.5 mg Q8HR ORAL 10/23/19 21:00 10/30/19 20:59 10/24/19 13:51 Dextrose (Dextrose 50%) 25 ml Q30M PRN IV Hypoglycemia 10/23/19 17:30 01/21/20 17:29 Dextrose (Dextrose 50%) 50 ml Q30M PRN IV Hypoglycemia 10/23/19 17:30 01/21/20 17:29 Diphenhydramine HCl (Benadryl) 25 mg Q6H PRN ORAL Itching/Pruritis 10/23/19 17:30 11/22/19 17:29 Docusate Sodium (Colace) 100 mg EVERY 12 HOURS ORAL 10/23/19 21:00 11/22/19 20:59 10/24/19 08:54 Dopamine HCl/ Dextrose 250 ml @ 0 mls/hr Q24H IV 10/24/19 06:15 01/22/20 06:14 10/24/19 06:16 Ferrous Sulfate (Feosol) 325 mg DAILY ORAL 10/24/19 09:00 01/22/20 08:59 10/24/19 08:54 Gabapentin (Neurontin) 400 mg Q8HR ORAL 10/23/19 22:00 11/22/19 21:59 10/24/19 13:51 Heparin Sodium (Porcine) (Heparin 5000 units/ml) 5,000 units EVERY 12 HOURS SUBQ 10/24/19 09:00 12/08/19 08:59 10/24/19 08:54 Iohexol (OMNIPAQUE-300 100ml) 100 ml NOW PRN INJ Radiology Procedure 10/23/19 15:15 10/25/19 15:13 Meropenem 1 gm/ Sodium Chloride 100 ml @ 200 mls/hr Q8HR IVPB 10/23/19 22:00 10/28/19 21:59 10/24/19 13:53 Midodrine (Pro-Amatine) 10 mg THREE TIMES A DAY ORAL 10/23/19 18:00 01/21/20 17:59 10/24/19 17:22 Norepinephrine Bitartrate 250 ml @ 0 mls/hr Q24H IV 10/23/19 21:00 01/21/20 20:59 10/23/19 20:38 Ondansetron HCl (Zofran) 4 mg Q6H PRN IVP Nausea & Vomiting 10/23/19 17:30 11/22/19 17:29 Sodium Hypochlorite (Dakin's Quarter Strength) 1 applic DAILY TOPIC 10/25/19 09:00 11/24/19 08:59 Sodium Chloride 1,000 ml @ 75 mls/hr [id number] IVLG 10/23/19 18:28 11/22/19 18:27 10/24/19 05:37 Vancomycin HCl (Vanco pharmacy to dose) 1 ea DAILY PRN MISC Per rx protocol 10/23/19 17:30 11/22/19 17:29 Vancomycin HCl 1 gm/Sodium Chloride 275 ml @ 183.708 mls/hr Q12HR@0500,1700 IVPB 10/24/19 05:00 10/29/19 04:59 10/24/19 17:22 Zinc Sulfate (Zinc Sulfate) 220 mg DAILY ORAL 10/24/19 09:00 01/22/20 08:59 10/24/19 08:54 Assessment/Plan Diagnosis [facility] I: #Polyuria - r/o DI #Shock #UTI # infected sacral pressure ulcer #Acute metabolic encephalopathy #Paraplegia #Sacral pressure ulcer #Hypokalemia #Anemia - continue NS hydration - check urine chem- - continue midodrine 1 TID - antibiotics per ID - continue antibiotic to maintain MAP > 65 - monitor lytes - monitor for vanoc and amikacin toxicity - avoid nephrotoxins - daily weights - strict I&Os time spent 70 min- greater than 50% on care coordination and counseling Sienna Georges M.D. Oct 24, 2019 20:57
[2019-10-24] MEDS: Amikacin 750 MG in NS 110 ML IV SCH (20:58)
[2019-10-24] MEDS: Norepinephrine 4mg/NS Premix 250 ML IV SCH (21:00)
[2019-10-25] VITALS (69 sets, daily range): BP systolic 66–160; BP diastolic 39–89
[2019-10-25] MEDS: HYDROcodone/Acetamin 5/325 tab ORAL PRN ×3 (02:46→17:35)
[2019-10-25] MEDS: Vancomycin 1 GM in NS 275 ML IVPB SCH ×2 (05:24→17:34)
[2019-10-25] MEDS: clonazePAM 0.5mg tab ORAL SCH ×3 (05:24→22:23)
[2019-10-25] MEDS: Zinc Sulfate 220mg ORAL SCH (08:25)
[2019-10-25] MEDS: Docusate 100mg cap ORAL SCH ×2 (08:25→21:05)
[2019-10-25] MEDS: Ascorbic Acid 500mg tab ORAL SCH (08:25)
[2019-10-25] MEDS: Midodrine 10mg tab ORAL SCH ×3 (08:25→17:35)
[2019-10-25] MEDS: Dakin's 0.125% Soln (Quarter Strength) 16oz TOPIC SCH (08:26)
[2019-10-25] MEDS: Heparin 5000 units/ml inj SUBQ SCH ×2 (08:26→21:05)
[2019-10-25] MEDS ORDERED: Dakin's 0.125% Soln (Quarter Strength) 16oz TOPIC SCH (09:00)
--- NOTE | 2019-10-25 10:26 | Pulmonology Progress Note ---
Subjective Interval Events: Looking better Constitutional: Reports: no symptoms, other - more alert HEENT: Repors: no symptoms Respiratory: Reports: no symptoms Cardiovascular: Reports: no symptoms Gastrointestinal/Abdominal: Reports: no symptoms Genitourinary: Reports: no symptoms Allergies: Coded Allergies: No Known Allergies (Unverified , 08/15/19) Objective Last 24 Hour Vital Signs Date Time Temp Pulse Resp B/P (MAP) Pulse Ox O2 Delivery O2 Flow Rate FiO2 10/25/19 09:00 71 17 97/60 (72) 99 10/25/19 09:00 97/60 10/25/19 08:45 72 14 94/54 (67) 98 10/25/19 08:30 74 17 94/63 (73) 100 10/25/19 08:15 73 17 101/54 (70) 98 10/25/19 08:00 94/46 10/25/19 08:00 Room Air 10/25/19 08:00 97.3 81 18 94/46 (62) 99 10/25/19 07:30 64 17 118/68 (85) 98 10/25/19 07:18 67 10/25/19 07:15 78 16 118/69 (85) 97 10/25/19 07:00 61 15 137/67 (90) 97 10/25/19 07:00 137/67 10/25/19 06:45 62 14 125/64 (84) 98 10/25/19 06:30 70 15 118/70 (86) 99 10/25/19 06:15 67 14 127/89 (102) 100 10/25/19 06:00 88/60 10/25/19 06:00 75 14 88/60 (69) 98 10/25/19 05:45 77 16 98/61 (73) 98 10/25/19 05:30 80 16 104/65 (78) 98 10/25/19 05:15 62 16 124/68 (86) 98 10/25/19 05:00 124/73 10/25/19 05:00 59 16 124/73 (90) 98 10/25/19 04:45 58 17 138/71 (93) 99 10/25/19 04:30 60 16 130/65 (86) 97 10/25/19 04:20 81 17 118/69 (85) 98 10/25/19 04:15 78 20 10/25/19 04:00 88 10/25/19 04:00 76 10/25/19 04:00 97.8 60 17 10/25/19 04:00 118/69 10/25/19 04:00 Room Air 10/25/19 03:45 74 16 119/68 (85) 98 10/25/19 03:30 74 17 123/70 (87) 98 10/25/19 03:16 98.4 10/25/19 03:15 73 19 119/71 (87) 97 10/25/19 03:00 74 19 118/72 (87) 96 10/25/19 03:00 118/72 10/25/19 02:00 70 17 122/65 (84) 97 10/25/19 02:00 122/65 10/25/19 01:45 83 19 115/62 (79) 96 10/25/19 01:30 90 21 104/64 (77) 97 10/25/19 01:15 94 21 104/67 (79) 100 10/25/19 01:00 113/64 10/25/19 01:00 92 19 113/64 (80) 100 10/25/19 00:45 69 18 121/63 (82) 98 10/25/19 00:30 85 19 116/72 (87) 96 10/25/19 00:15 98.4 67 19 127/68 (87) 98 10/25/19 00:00 117/67 10/25/19 00:00 63 18 117/67 (84) 95 10/25/19 00:00 Room Air 10/24/19 23:45 63 18 144/69 (94) 96 10/24/19 23:35 90 20 82/55 (64) 95 10/24/19 23:33 91/64 10/24/19 23:32 91/64 10/24/19 23:30 86 26 71/45 (54) 97 10/24/19 23:15 99 19 91/64 (73) 92 10/24/19 23:00 92 20 113/67 (82) 96 10/24/19 23:00 91/64 10/24/19 22:45 80 21 111/68 (82) 95 10/24/19 22:30 82 18 112/62 (79) 93 10/24/19 22:15 78 16 119/66 (83) 96 10/24/19 22:00 60 17 107/74 (85) 99 10/24/19 22:00 107/74 10/24/19 21:45 77 16 113/71 (85) 97 10/24/19 21:30 68 19 118/68 (85) 98 10/24/19 21:15 76 20 122/66 (84) 99 10/24/19 21:00 122/71 10/24/19 21:00 113/71 10/24/19 21:00 72 17 122/71 (88) 100 10/24/19 20:45 73 17 136/73 (94) 93 10/24/19 20:30 74 18 125/71 (89) 95 10/24/19 20:15 79 21 113/52 (72) 92 10/24/19 20:00 98.5 86 12 119/76 (90) 96 10/24/19 20:00 Room Air 10/24/19 20:00 80 10/24/19 20:00 119/76 10/24/19 19:45 77 17 117/54 (75) 98 10/24/19 19:30 77 17 110/93 (99) 99 10/24/19 19:00 113/69 10/24/19 19:00 74 16 113/69 (84) 98 10/24/19 18:45 83 18 113/72 (86) 97 10/24/19 18:30 89 24 111/69 (83) 95 10/24/19 18:15 80 20 118/75 (89) 100 10/24/19 18:00 58 20 122/71 (88) 99 10/24/19 18:00 122/71 10/24/19 17:45 55 18 115/57 (76) 99 10/24/19 17:30 78 19 119/71 (87) 99 10/24/19 17:15 79 16 107/69 (82) 99 10/24/19 17:00 100/66 10/24/19 17:00 79 18 100/66 (77) 98 10/24/19 16:45 74 17 102/65 (77) 97 10/24/19 16:30 91 11 105/66 (79) 97 10/24/19 16:15 71 16 124/78 (93) 98 10/24/19 16:00 Room Air 10/24/19 16:00 74 10/24/19 16:00 101/62 10/24/19 16:00 98.7 85 17 101/62 (75) 98 10/24/19 15:45 74 20 145/82 (103) 99 10/24/19 15:30 60 15 140/80 (100) 100 10/24/19 15:15 60 15 146/71 (96) 100 10/24/19 15:00 55 16 146/69 (94) 99 10/24/19 15:00 146/71 10/24/19 14:45 74 19 125/73 (90) 98 10/24/19 14:30 88/61 10/24/19 14:30 74 17 88/61 (70) 99 10/24/19 14:15 79 17 86/58 (67) 94 10/24/19 14:00 78 19 80/62 (68) 100 10/24/19 14:00 80/62 10/24/19 13:45 78 16 112/57 (75) 100 10/24/19 13:30 84 15 107/52 (70) 99 10/24/19 13:15 89 20 84/60 (68) 79 10/24/19 13:15 84/60 10/24/19 13:03 79 17 99/58 (72) 100 10/24/19 13:00 77 19 95/60 (72) 100 10/24/19 13:00 95/60 10/24/19 12:45 93 17 102/65 (77) 99 10/24/19 12:30 87 18 108/63 (78) 100 10/24/19 12:15 80 16 106/64 (78) 100 10/24/19 12:00 60 10/24/19 12:00 Room Air 10/24/19 12:00 98/61 10/24/19 12:00 98.4 90 19 98/61 (73) 99 10/24/19 11:45 66 16 123/58 (79) 100 10/24/19 11:30 76 16 92/62 (72) 99 10/24/19 11:15 80 15 110/52 (71) 100 10/24/19 11:00 91/54 10/24/19 11:00 80 17 91/54 (66) 100 10/24/19 10:45 97 16 89/52 (64) 99 10/24/19 10:30 82 16 149/67 (94) 99 Intake and Output 10/24/19 10/25/19 19:00 07:00 Intake Total 2563.417 ml 2745.748 ml Output Total 5380 ml 3527 ml Balance -2816.583 ml -781.252 ml Intake Oral 560 ml 640 ml IV Total 2003.417 ml 2105.748 ml Output Urine Total 5380 ml 3525 ml Stool Total 2 ml # Bowel Movements 3 2 General Appearance: no acute distress HEENT: normocephalic Respiratory: chest wall non-tender, lungs clear Cardiovascular: normal peripheral pulses, regular rhythm Abdomen: normal bowel sounds Extremities: no cyanosis Microbiology Date/Time Source Procedure Growth Status 10/23/19 15:30 Blood Blood Culture - Preliminary NO GROWTH AFTER 24 HOURS Resulted 10/23/19 15:15 Blood Blood Culture - Preliminary NO GROWTH AFTER 24 HOURS Resulted 10/23/19 18:55 Nasal Nares MRSA Culture - Final Staphylococcus Aureus - Mrsa Complete 10/23/19 15:13 Urine,Clean Catch Urine Culture - Preliminary Gram Negative Bacillus 1 Resulted 10/23/19 18:55 Rectum - Final NO CARBAPENEM-RESISTANT ENTEROBACTERI... Complete 10/23/19 18:55 Rectum VRE Culture - Final Enterococcus Faecalis - Vre Complete Laboratory Tests 10/24/19 21:09: Urine Osmolality 394L, Urine Random Sodium 154H, Urine Potassium Timed 15 Current Medications Medications (Trade) Dose Ordered Sig/Mya Route PRN Reason Start Time Stop Time Status Last Admin Dose Admin Acetaminophen (Tylenol) 650 mg Q4H PRN ORAL Mild Pain (Pain Scale 1-3) 10/23/19 17:30 11/22/19 17:29 Acetaminophen/ Hydrocodone Bitart ([place] 5/325) 1 tab Q4H PRN ORAL Moderate Pain (Pain Scale 4-6) 10/23/19 20:15 10/30/19 20:14 Acetaminophen/ Hydrocodone Bitart ([place] 5/325) 2 tab Q4H PRN ORAL Severe Pain (Pain Scale 7-10) 10/23/19 20:15 10/30/19 20:14 10/25/19 02:46 Albuterol/ Ipratropium (Albuterol/ Ipratropium) 3 ml Q6H PRN HHN Shortness of Breath 10/23/19 17:30 10/28/19 17:29 Amikacin Protocol (Amikacin pharmacy to dose) 1 ea DAILY PRN MISC Per rx protocol 10/23/19 19:30 11/22/19 19:29 Amikacin Sulfate 750 mg/Sodium Chloride 113 ml @ 113 mls/hr Q24H IV 10/24/19 21:00 10/31/19 20:59 10/24/19 20:58 Ascorbic Acid (Vitamin C) 500 mg DAILY ORAL 10/24/19 09:00 11/23/19 08:59 10/25/19 08:25 Baclofen (Lioresal) 10 mg THREE TIMES A DAY ORAL 10/23/19 18:00 11/22/19 17:59 10/25/19 08:25 Chlorhexidine Gluconate (Simran-Hex 2%) 1 applic DAILY@2000 TOPIC 10/24/19 20:00 01/22/20 19:59 10/24/19 19:59 Clonazepam (KlonoPIN) 0.5 mg Q8HR ORAL 10/23/19 21:00 10/30/19 20:59 10/25/19 05:24 Dextrose (Dextrose 50%) 25 ml Q30M PRN IV Hypoglycemia 10/23/19 17:30 01/21/20 17:29 Dextrose (Dextrose 50%) 50 ml Q30M PRN IV Hypoglycemia 10/23/19 17:30 01/21/20 17:29 Diphenhydramine HCl (Benadryl) 25 mg Q6H PRN ORAL Itching/Pruritis 10/23/19 17:30 11/22/19 17:29 Docusate Sodium (Colace) 100 mg EVERY 12 HOURS ORAL 10/23/19 21:00 11/22/19 20:59 10/25/19 08:25 Dopamine HCl/ Dextrose 250 ml @ 0 mls/hr Q24H IV 10/24/19 06:15 01/22/20 06:14 10/24/19 23:33 Ferrous Sulfate (Feosol) 325 mg DAILY ORAL 10/24/19 09:00 01/22/20 08:59 10/25/19 08:25 Gabapentin (Neurontin) 400 mg Q8HR ORAL 10/23/19 22:00 11/22/19 21:59 10/25/19 05:24 Heparin Sodium (Porcine) (Heparin 5000 units/ml) 5,000 units EVERY 12 HOURS SUBQ 10/24/19 09:00 12/08/19 08:59 10/25/19 08:26 Iohexol (OMNIPAQUE-300 100ml) 100 ml NOW PRN INJ Radiology Procedure 10/23/19 15:15 10/25/19 15:13 Meropenem 1 gm/ Sodium Chloride 100 ml @ 200 mls/hr Q8HR IVPB 10/23/19 22:00 10/28/19 21:59 10/25/19 05:24 Midodrine (Pro-Amatine) 10 mg THREE TIMES A DAY ORAL 10/23/19 18:00 01/21/20 17:59 10/25/19 08:25 Norepinephrine Bitartrate 250 ml @ 0 mls/hr Q24H IV 10/23/19 21:00 01/21/20 20:59 10/23/19 20:38 Ondansetron HCl (Zofran) 4 mg Q6H PRN IVP Nausea & Vomiting 10/23/19 17:30 11/22/19 17:29 Sodium Hypochlorite ([place] Quarter Strength) 1 applic DAILY TOPIC 10/25/19 09:00 11/24/19 08:59 10/25/19 08:26 Sodium Chloride 1,000 ml @ 100 mls/hr Q10H IVLG 10/24/19 21:10 11/23/19 21:09 10/25/19 05:26 Vancomycin HCl (Vanco pharmacy to dose) 1 ea DAILY PRN MISC Per rx protocol 10/23/19 17:30 11/22/19 17:29 Vancomycin HCl 1 gm/Sodium Chloride 275 ml @ 183.708 mls/hr Q12HR@0500,1700 IVPB 10/24/19 05:00 10/29/19 04:59 10/25/19 05:24 Zinc Sulfate (Zinc Sulfate) 220 mg DAILY ORAL 10/24/19 09:00 01/22/20 08:59 10/25/19 08:25 Assessment/Plan Assessment/Plan IMPRESSION: 1. Septic shock. 2. Complicated UTI with history of previous ESBL infection. 3. Paraplegia. 4. Sacral decubitus. 5. senior care resident. DISCUSSION: PRN pressors. Obtain central access. DVT and GI prophylaxes. ID consult noted. I will follow carefully. Ordered Oxygen, doing well on room air at this time. Gregg Curtis M.D. Gregg Curtis MD Oct 25, 2019 10:26
--- NOTE | 2019-10-25 11:22 | Diagnostic Imaging Report ---
Indication: Shortness of breath Technique: One view of the chest Comparison: 10/23/2019 Findings: There are bilateral basilar infiltrates, which appear new or increased since prior study. There is some atelectasis at the left lung base as well. Right jugular central venous catheter remains. The heart size is normal. Impression: New/increased bilateral basilar infiltrates, since prior study 10/23/2019
--- NOTE | 2019-10-25 11:24 | Diagnostic Imaging Report ---
Indication: Abdominal pain Technique: One view of the chest Comparison: none Findings: There is an inferior vena cava filter in place. Bowel gas pattern is unremarkable. Considerable stool is seen in the transverse and distal colon. There is extensive pelvic deformity, with loss of the left femoral head, chronic dislocation of the left femur, and extensive pelvic deformity, particularly on the left. Holden project over the upper pelvis Impression: Possible constipation. Chronic changes, as described Inferior vena cava filter
--- NOTE | 2019-10-25 12:33 | General Progress Note ---
Assessment/Plan Assessment/Plan: '59 year old man who presents from LVT with weakness, encephalopathy, concern for septic shock, possible from UTI vs infected sacral pressure ulcer #?Septic shock (Normal lactate) #?UTI vs infected sacral pressure ulcer #Acute metabolic encephalopathy #Paraplegia #Sacral pressure ulcer, present on admit -continue ICU care -Wean off vasopressors -continue broad spectrum antibiotics, vanco/Zosyn/amikacin as per ID recs -Urine culture with GNB, follow up final resutls -Spoke with surgery, sacral pressure ulcer does not appear to be infected -Local wound care and offloading #Sinus Bradycardia to 44, improved -continue telemetry -consulted Dr. Estes, recs appreciated #Hypokalemia -monitor BMP daily #Anemia, acute on chronic -monitor H&H -Hematology consulted VTE PPx HSQ Full Code I spent 75 minutes on this patient's case, and 38 mins was dedicated to critical care Critical Care Services performed include: Telemetry Review Hemodynamic measurement interpretation Laboratory data review and interpretation Radiology image review and interpretation Discussion of patient's care with ICU team, ICU Nursing staff and/or consulting services Subjective Date patient seen: Oct 25, 2019 Time patient seen: 07:00 ROS Limited/Unobtainable: Yes Cardiovascular: Denies: chest pain Respiratory: Denies: cough, shortness of breath Allergies: Coded Allergies: No Known Allergies (Unverified , 08/15/19) Subjective Follow up for septic shock, possible UTI, acute metabolic encephalopathy No acute events overnight High urine output, Nephrology consulted Objective Last 24 Hour Vital Signs Date Time Temp Pulse Resp B/P (MAP) Pulse Ox O2 Delivery O2 Flow Rate FiO2 10/25/19 12:00 129/70 10/25/19 12:00 Room Air 10/25/19 12:00 98.0 73 17 129/70 (89) 97 10/25/19 11:48 84 10/25/19 11:45 68 20 103/57 (72) 95 10/25/19 11:30 70 21 91/59 (70) 98 10/25/19 11:00 65 18 103/51 (68) 96 10/25/19 11:00 103/51 10/25/19 10:30 72 18 123/58 (79) 97 10/25/19 10:00 107/62 10/25/19 10:00 74 17 107/62 (77) 95 10/25/19 09:30 78 17 96/61 (73) 97 10/25/19 09:00 71 17 97/60 (72) 99 10/25/19 09:00 97/60 10/25/19 08:45 72 14 94/54 (67) 98 10/25/19 08:30 74 17 94/63 (73) 100 10/25/19 08:15 73 17 101/54 (70) 98 10/25/19 08:00 94/46 10/25/19 08:00 Room Air 10/25/19 08:00 97.3 81 18 94/46 (62) 99 10/25/19 07:30 64 17 118/68 (85) 98 10/25/19 07:18 67 10/25/19 07:15 78 16 118/69 (85) 97 10/25/19 07:00 61 15 137/67 (90) 97 10/25/19 07:00 137/67 10/25/19 06:45 62 14 125/64 (84) 98 10/25/19 06:30 70 15 118/70 (86) 99 10/25/19 06:15 67 14 127/89 (102) 100 10/25/19 06:00 88/60 10/25/19 06:00 75 14 88/60 (69) 98 10/25/19 05:45 77 16 98/61 (73) 98 10/25/19 05:30 80 16 104/65 (78) 98 10/25/19 05:15 62 16 124/68 (86) 98 10/25/19 05:00 124/73 10/25/19 05:00 59 16 124/73 (90) 98 10/25/19 04:45 58 17 138/71 (93) 99 10/25/19 04:30 60 16 130/65 (86) 97 10/25/19 04:20 81 17 118/69 (85) 98 10/25/19 04:15 78 20 10/25/19 04:00 88 10/25/19 04:00 76 10/25/19 04:00 97.8 60 17 10/25/19 04:00 118/69 10/25/19 04:00 Room Air 10/25/19 03:45 74 16 119/68 (85) 98 10/25/19 03:30 74 17 123/70 (87) 98 10/25/19 03:16 98.4 10/25/19 03:15 73 19 119/71 (87) 97 10/25/19 03:00 74 19 118/72 (87) 96 10/25/19 03:00 118/72 10/25/19 02:00 70 17 122/65 (84) 97 10/25/19 02:00 122/65 10/25/19 01:45 83 19 115/62 (79) 96 10/25/19 01:30 90 21 104/64 (77) 97 10/25/19 01:15 94 21 104/67 (79) 100 10/25/19 01:00 113/64 10/25/19 01:00 92 19 113/64 (80) 100 10/25/19 00:45 69 18 121/63 (82) 98 10/25/19 00:30 85 19 116/72 (87) 96 10/25/19 00:15 98.4 67 19 127/68 (87) 98 10/25/19 00:00 117/67 10/25/19 00:00 63 18 117/67 (84) 95 10/25/19 00:00 Room Air 10/24/19 23:45 63 18 144/69 (94) 96 10/24/19 23:35 90 20 82/55 (64) 95 10/24/19 23:33 91/64 10/24/19 23:32 91/64 10/24/19 23:30 86 26 71/45 (54) 97 10/24/19 23:15 99 19 91/64 (73) 92 10/24/19 23:00 92 20 113/67 (82) 96 10/24/19 23:00 91/64 10/24/19 22:45 80 21 111/68 (82) 95 10/24/19 22:30 82 18 112/62 (79) 93 10/24/19 22:15 78 16 119/66 (83) 96 10/24/19 22:00 60 17 107/74 (85) 99 10/24/19 22:00 107/74 10/24/19 21:45 77 16 113/71 (85) 97 10/24/19 21:30 68 19 118/68 (85) 98 10/24/19 21:15 76 20 122/66 (84) 99 10/24/19 21:00 122/71 10/24/19 21:00 113/71 10/24/19 21:00 72 17 122/71 (88) 100 10/24/19 20:45 73 17 136/73 (94) 93 10/24/19 20:30 74 18 125/71 (89) 95 10/24/19 20:15 79 21 113/52 (72) 92 10/24/19 20:00 98.5 86 12 119/76 (90) 96 10/24/19 20:00 Room Air 10/24/19 20:00 80 10/24/19 20:00 119/76 10/24/19 19:45 77 17 117/54 (75) 98 10/24/19 19:30 77 17 110/93 (99) 99 10/24/19 19:00 113/69 10/24/19 19:00 74 16 113/69 (84) 98 10/24/19 18:45 83 18 113/72 (86) 97 10/24/19 18:30 89 24 111/69 (83) 95 10/24/19 18:15 80 20 118/75 (89) 100 10/24/19 18:00 58 20 122/71 (88) 99 10/24/19 18:00 122/71 10/24/19 17:45 55 18 115/57 (76) 99 10/24/19 17:30 78 19 119/71 (87) 99 10/24/19 17:15 79 16 107/69 (82) 99 10/24/19 17:00 100/66 10/24/19 17:00 79 18 100/66 (77) 98 10/24/19 16:45 74 17 102/65 (77) 97 10/24/19 16:30 91 11 105/66 (79) 97 10/24/19 16:15 71 16 124/78 (93) 98 10/24/19 16:00 Room Air 10/24/19 16:00 74 10/24/19 16:00 101/62 10/24/19 16:00 98.7 85 17 101/62 (75) 98 10/24/19 15:45 74 20 145/82 (103) 99 10/24/19 15:30 60 15 140/80 (100) 100 10/24/19 15:15 60 15 146/71 (96) 100 10/24/19 15:00 55 16 146/69 (94) 99 10/24/19 15:00 146/71 10/24/19 14:45 74 19 125/73 (90) 98 10/24/19 14:30 88/61 10/24/19 14:30 74 17 88/61 (70) 99 10/24/19 14:15 79 17 86/58 (67) 94 10/24/19 14:00 78 19 80/62 (68) 100 10/24/19 14:00 80/62 10/24/19 13:45 78 16 112/57 (75) 100 10/24/19 13:30 84 15 107/52 (70) 99 10/24/19 13:15 89 20 84/60 (68) 79 10/24/19 13:15 84/60 10/24/19 13:03 79 17 99/58 (72) 100 10/24/19 13:00 77 19 95/60 (72) 100 10/24/19 13:00 95/60 10/24/19 12:45 93 17 102/65 (77) 99 Intake and Output 10/24/19 10/25/19 19:00 07:00 Intake Total 2563.417 ml 2745.748 ml Output Total 5380 ml 3527 ml Balance -2816.583 ml -781.252 ml Intake Oral 560 ml 640 ml IV Total 2003.417 ml 2105.748 ml Output Urine Total 5380 ml 3525 ml Stool Total 2 ml # Bowel Movements 3 2 Laboratory Tests 10/24/19 21:09: Urine Osmolality 394L, Urine Random Sodium 154H, Urine Potassium Timed 15 Height (Feet): 5 Height (Inches): 7.00 Weight (Pounds): 105 General Appearance: no apparent distress, alert Neck: normal alignment, normal inspection Cardiovascular: normal rate, regular rhythm Respiratory/Chest: chest wall non-tender, lungs clear, normal breath sounds Abdomen: non tender John Tejada MD Oct 25, 2019 12:33
--- NOTE | 2019-10-25 13:09 | CDS Physician Query ---
Clarification is required for compliance, coding accuracy, and to reflect severity of illness for this patient Dear Dr. John Chambers Date: 10/25/2019 Biologist Aide/CDS Name: Anel Bowman Clinical documentation states: HNP '59 year old man who presents from LVT with weakness, encephalopathy, concern for septic shock, possible from UTI vs infected sacral pressure ulcer RD note: Increased kcal/prot/micronutrients needs R/T wound healing and underweight status as evidenced by pt admitted w/ advanced wounds, WC eval pending, h/o stage 4 sacral wound, pt now w/ further 3% unfavorable wt loss, current BMI underweight per guidelines, pt is 62% of [place] Body Weight. BMI 16.5, Albumin 1.8 Please select the most appropriate option: [] Protein/Calorie Malnutrition [] Mild [] Moderate [x] Severe [] Hypoalbuminemia [] Underweight [] Intestinal malabsorption [] Other [] Unable to determine [] Not Applicable Present on Admission: [] Yes [] No [] Clinically Undetermined Physician signature Date Please also document in your Progress Notes and/or Discharge Summary and indicate if the condition was present on admission. MTDD
[2019-10-25] MEDS ORDERED: NS 500ML ONE (13:57)
[2019-10-25] MEDS ORDERED: Tubing IV Secondary IV ONE (13:57)
[2019-10-25] MEDS ORDERED: NS 275ml ONE ×2 (13:57)
--- NOTE | 2019-10-25 14:34 | Cardiac Electrophysiology PN ---
Assessment/Plan Assessment/Plan 1. Hypotension likely due to septic shock. The patient is also diuresing heavily at 300 mL an hour. Continue Midodrine and dopamine On IV antibiotic with vancomycin and meropenem and amikacin. 2. Bradycardia. Continue dopamine. Apparently, the patient has chronic bradycardia and was on midodrine that can contribute to bradycardia 3. Paraplegia. 4. Urinary tract infection, followed by Dr. Painting on broad-spectrum IV antibiotic. 5. Decubitus ulcers with sacral decubitus. Subjective Subjective Alert in NAD in ICU on 6 Mcg of Dopamine Objective Last 24 Hour Vital Signs Date Time Temp Pulse Resp B/P (MAP) Pulse Ox O2 Delivery O2 Flow Rate FiO2 10/25/19 14:00 80 16 101/73 (82) 98 10/25/19 14:00 101/73 10/25/19 13:30 84 14 99/58 (72) 98 10/25/19 13:00 111/61 10/25/19 13:00 73 19 111/61 (78) 99 10/25/19 12:30 79 16 160/79 (106) 98 10/25/19 12:00 129/70 10/25/19 12:00 Room Air 10/25/19 12:00 98.0 73 17 129/70 (89) 97 10/25/19 11:48 84 10/25/19 11:45 68 20 103/57 (72) 95 10/25/19 11:30 70 21 91/59 (70) 98 10/25/19 11:00 65 18 103/51 (68) 96 10/25/19 11:00 103/51 10/25/19 10:30 72 18 123/58 (79) 97 10/25/19 10:00 107/62 10/25/19 10:00 74 17 107/62 (77) 95 10/25/19 09:30 78 17 96/61 (73) 97 10/25/19 09:00 71 17 97/60 (72) 99 10/25/19 09:00 97/60 10/25/19 08:45 72 14 94/54 (67) 98 10/25/19 08:30 74 17 94/63 (73) 100 10/25/19 08:15 73 17 101/54 (70) 98 10/25/19 08:00 94/46 10/25/19 08:00 Room Air 10/25/19 08:00 97.3 81 18 94/46 (62) 99 10/25/19 07:30 64 17 118/68 (85) 98 10/25/19 07:18 67 10/25/19 07:15 78 16 118/69 (85) 97 10/25/19 07:00 61 15 137/67 (90) 97 10/25/19 07:00 137/67 10/25/19 06:45 62 14 125/64 (84) 98 10/25/19 06:30 70 15 118/70 (86) 99 10/25/19 06:15 67 14 127/89 (102) 100 10/25/19 06:00 88/60 10/25/19 06:00 75 14 88/60 (69) 98 10/25/19 05:45 77 16 98/61 (73) 98 10/25/19 05:30 80 16 104/65 (78) 98 10/25/19 05:15 62 16 124/68 (86) 98 10/25/19 05:00 124/73 10/25/19 05:00 59 16 124/73 (90) 98 10/25/19 04:45 58 17 138/71 (93) 99 10/25/19 04:30 60 16 130/65 (86) 97 10/25/19 04:20 81 17 118/69 (85) 98 10/25/19 04:15 78 20 10/25/19 04:00 88 10/25/19 04:00 76 10/25/19 04:00 97.8 60 17 10/25/19 04:00 118/69 10/25/19 04:00 Room Air 10/25/19 03:45 74 16 119/68 (85) 98 10/25/19 03:30 74 17 123/70 (87) 98 10/25/19 03:16 98.4 10/25/19 03:15 73 19 119/71 (87) 97 10/25/19 03:00 74 19 118/72 (87) 96 10/25/19 03:00 118/72 10/25/19 02:00 70 17 122/65 (84) 97 10/25/19 02:00 122/65 10/25/19 01:45 83 19 115/62 (79) 96 10/25/19 01:30 90 21 104/64 (77) 97 10/25/19 01:15 94 21 104/67 (79) 100 10/25/19 01:00 113/64 10/25/19 01:00 92 19 113/64 (80) 100 10/25/19 00:45 69 18 121/63 (82) 98 10/25/19 00:30 85 19 116/72 (87) 96 10/25/19 00:15 98.4 67 19 127/68 (87) 98 10/25/19 00:00 117/67 10/25/19 00:00 63 18 117/67 (84) 95 10/25/19 00:00 Room Air 10/24/19 23:45 63 18 144/69 (94) 96 10/24/19 23:35 90 20 82/55 (64) 95 10/24/19 23:33 91/64 10/24/19 23:32 91/64 10/24/19 23:30 86 26 71/45 (54) 97 10/24/19 23:15 99 19 91/64 (73) 92 10/24/19 23:00 92 20 113/67 (82) 96 10/24/19 23:00 91/64 10/24/19 22:45 80 21 111/68 (82) 95 10/24/19 22:30 82 18 112/62 (79) 93 10/24/19 22:15 78 16 119/66 (83) 96 10/24/19 22:00 60 17 107/74 (85) 99 10/24/19 22:00 107/74 10/24/19 21:45 77 16 113/71 (85) 97 10/24/19 21:30 68 19 118/68 (85) 98 10/24/19 21:15 76 20 122/66 (84) 99 10/24/19 21:00 122/71 10/24/19 21:00 113/71 10/24/19 21:00 72 17 122/71 (88) 100 10/24/19 20:45 73 17 136/73 (94) 93 10/24/19 20:30 74 18 125/71 (89) 95 10/24/19 20:15 79 21 113/52 (72) 92 10/24/19 20:00 98.5 86 12 119/76 (90) 96 10/24/19 20:00 Room Air 10/24/19 20:00 80 10/24/19 20:00 119/76 10/24/19 19:45 77 17 117/54 (75) 98 10/24/19 19:30 77 17 110/93 (99) 99 10/24/19 19:00 113/69 10/24/19 19:00 74 16 113/69 (84) 98 10/24/19 18:45 83 18 113/72 (86) 97 10/24/19 18:30 89 24 111/69 (83) 95 10/24/19 18:15 80 20 118/75 (89) 100 10/24/19 18:00 58 20 122/71 (88) 99 10/24/19 18:00 122/71 10/24/19 17:45 55 18 115/57 (76) 99 10/24/19 17:30 78 19 119/71 (87) 99 10/24/19 17:15 79 16 107/69 (82) 99 10/24/19 17:00 100/66 10/24/19 17:00 79 18 100/66 (77) 98 10/24/19 16:45 74 17 102/65 (77) 97 10/24/19 16:30 91 11 105/66 (79) 97 10/24/19 16:15 71 16 124/78 (93) 98 10/24/19 16:00 Room Air 10/24/19 16:00 74 10/24/19 16:00 101/62 10/24/19 16:00 98.7 85 17 101/62 (75) 98 10/24/19 15:45 74 20 145/82 (103) 99 10/24/19 15:30 60 15 140/80 (100) 100 10/24/19 15:15 60 15 146/71 (96) 100 10/24/19 15:00 55 16 146/69 (94) 99 10/24/19 15:00 146/71 10/24/19 14:45 74 19 125/73 (90) 98 Intake and Output 10/24/19 10/25/19 19:00 07:00 Intake Total 2563.417 ml 2745.748 ml Output Total 5380 ml 3527 ml Balance -2816.583 ml -781.252 ml Intake Oral 560 ml 640 ml IV Total 2003.417 ml 2105.748 ml Output Urine Total 5380 ml 3525 ml Stool Total 2 ml # Bowel Movements 3 2 Laboratory Tests Test 10/24/19 21:09 Urine Osmolality 394 mOsm/kg (429-449) L Urine Random Sodium 154 mmol/L (20-110) H Urine Potassium Timed 15 mmol/L (12-62) Microbiology Date/Time Source Procedure Growth Status 10/23/19 15:30 Blood Blood Culture - Preliminary NO GROWTH AFTER 24 HOURS Resulted 10/23/19 15:15 Blood Blood Culture - Preliminary NO GROWTH AFTER 24 HOURS Resulted 10/23/19 18:55 Nasal Nares MRSA Culture - Final Staphylococcus Aureus - Mrsa Complete 10/23/19 15:13 Urine,Clean Catch Urine Culture - Preliminary Gram Negative Bacillus 1 Resulted 10/23/19 18:55 Rectum - Final NO CARBAPENEM-RESISTANT ENTEROBACTERI... Complete 10/23/19 18:55 Rectum VRE Culture - Final Enterococcus Faecalis - Vre Complete Objective HEAD AND NECK: Showed no JVD. LUNGS: Coarse rhonchi. CARDIOVASCULAR: Shows regular S1 and S2 with no gallop. ABDOMEN: Soft. EXTREMITIES: No pitting edema, however, has pressure ulcers. Carloz Estes MD Oct 25, 2019 14:34
[2019-10-25] MEDS: DOPamine 400mg/250ml 250 ML IV SCH (16:32)
--- NOTE | 2019-10-25 19:30 | Infectious Diseases Prog Note ---
Assessment/Plan Assessment/Plan ASSESSMENT AND PLAN: 1. sepsis, shock, gram neg uti, possible aspiration pna/hcap vs cap, sacral wound - ? infected - meropenem, amikacin, vancomycin - f/u on cultures, labs and chest x-ray - clinically improved 2. ICU care. 3. Sacral wound -wound mostly clean, management per surgery 4. Ostomy malfunction - per surgery 5. Hypertension. 6. Paraplegia. 7. Anemia. 8. History of decubitus ulcer, rule out infection. Infectious diseases is following. The patient on antibiotics. 9. Hypertension treatment per primary care team. 10. Continue treatment per primary consultants. 11. No known drug allergies. 12. Social history is negative. 13. Family history is noncontributory. 14. MAR was noted. 15. Case discussed with RN. 16. mrsa/vre colonization and isolation Subjective Constitutional: Reports: fatigue; Denies: fever HEENT: Denies: congestion Respiratory: Denies: shortness of breath Cardiovascular: Denies: chest pain Gastrointestinal/Abdominal: Denies: nausea, vomiting, diarrhea Genitourinary: Reports: other - + Psychiatric: Reports: other - NA Skin: Denies: rash Hematologic: Denies: bleeding Musculoskeletal: Denies: pain Allergies: Coded Allergies: No Known Allergies (Unverified , 08/15/19) Objective Last 24 Hour Vital Signs Date Time Temp Pulse Resp B/P (MAP) Pulse Ox O2 Delivery O2 Flow Rate FiO2 10/25/19 18:00 65 19 124/71 (88) 99 10/25/19 18:00 124/71 10/25/19 17:30 63 18 154/76 (102) 98 10/25/19 17:15 60 18 145/83 (103) 98 10/25/19 17:00 148/65 10/25/19 17:00 97.3 63 18 148/65 (92) 99 10/25/19 16:32 70/46 10/25/19 16:30 73 20 91/58 (69) 99 10/25/19 16:15 84 19 66/39 (48) 83 10/25/19 16:00 77 21 116/76 (89) 97 10/25/19 16:00 Room Air 10/25/19 16:00 116/76 10/25/19 15:36 100 10/25/19 15:30 63 18 152/76 (101) 99 10/25/19 15:15 86 21 80/49 (59) 98 10/25/19 15:00 115/72 10/25/19 15:00 70 20 115/72 (86) 98 10/25/19 14:45 65 20 115/71 (86) 98 10/25/19 14:30 86/56 10/25/19 14:30 70 18 99/68 (78) 97 10/25/19 14:00 80 16 101/73 (82) 98 10/25/19 14:00 101/73 10/25/19 13:30 84 14 99/58 (72) 98 10/25/19 13:00 111/61 10/25/19 13:00 73 19 111/61 (78) 99 10/25/19 12:30 79 16 160/79 (106) 98 10/25/19 12:00 129/70 10/25/19 12:00 Room Air 10/25/19 12:00 98.0 73 17 129/70 (89) 97 10/25/19 11:48 84 10/25/19 11:45 68 20 103/57 (72) 95 10/25/19 11:30 70 21 91/59 (70) 98 10/25/19 11:00 65 18 103/51 (68) 96 10/25/19 11:00 103/51 10/25/19 10:30 72 18 123/58 (79) 97 10/25/19 10:00 107/62 10/25/19 10:00 74 17 107/62 (77) 95 10/25/19 09:30 78 17 96/61 (73) 97 10/25/19 09:00 71 17 97/60 (72) 99 10/25/19 09:00 97/60 10/25/19 08:45 72 14 94/54 (67) 98 10/25/19 08:30 74 17 94/63 (73) 100 10/25/19 08:15 73 17 101/54 (70) 98 10/25/19 08:00 94/46 10/25/19 08:00 Room Air 10/25/19 08:00 97.3 81 18 94/46 (62) 99 10/25/19 07:30 64 17 118/68 (85) 98 10/25/19 07:18 67 10/25/19 07:15 78 16 118/69 (85) 97 10/25/19 07:00 61 15 137/67 (90) 97 10/25/19 07:00 137/67 10/25/19 06:45 62 14 125/64 (84) 98 10/25/19 06:30 70 15 118/70 (86) 99 10/25/19 06:15 67 14 127/89 (102) 100 10/25/19 06:00 88/60 10/25/19 06:00 75 14 88/60 (69) 98 10/25/19 05:45 77 16 98/61 (73) 98 10/25/19 05:30 80 16 104/65 (78) 98 10/25/19 05:15 62 16 124/68 (86) 98 10/25/19 05:00 124/73 10/25/19 05:00 59 16 124/73 (90) 98 10/25/19 04:45 58 17 138/71 (93) 99 10/25/19 04:30 60 16 130/65 (86) 97 10/25/19 04:20 81 17 118/69 (85) 98 10/25/19 04:15 78 20 10/25/19 04:00 88 10/25/19 04:00 76 10/25/19 04:00 97.8 60 17 10/25/19 04:00 118/69 10/25/19 04:00 Room Air 10/25/19 03:45 74 16 119/68 (85) 98 10/25/19 03:30 74 17 123/70 (87) 98 10/25/19 03:16 98.4 10/25/19 03:15 73 19 119/71 (87) 97 10/25/19 03:00 74 19 118/72 (87) 96 10/25/19 03:00 118/72 10/25/19 02:00 70 17 122/65 (84) 97 10/25/19 02:00 122/65 10/25/19 01:45 83 19 115/62 (79) 96 10/25/19 01:30 90 21 104/64 (77) 97 10/25/19 01:15 94 21 104/67 (79) 100 10/25/19 01:00 113/64 10/25/19 01:00 92 19 113/64 (80) 100 10/25/19 00:45 69 18 121/63 (82) 98 10/25/19 00:30 85 19 116/72 (87) 96 10/25/19 00:15 98.4 67 19 127/68 (87) 98 10/25/19 00:00 117/67 10/25/19 00:00 63 18 117/67 (84) 95 10/25/19 00:00 Room Air 10/24/19 23:45 63 18 144/69 (94) 96 10/24/19 23:35 90 20 82/55 (64) 95 10/24/19 23:33 91/64 10/24/19 23:32 91/64 10/24/19 23:30 86 26 71/45 (54) 97 10/24/19 23:15 99 19 91/64 (73) 92 10/24/19 23:00 92 20 113/67 (82) 96 10/24/19 23:00 91/64 10/24/19 22:45 80 21 111/68 (82) 95 10/24/19 22:30 82 18 112/62 (79) 93 10/24/19 22:15 78 16 119/66 (83) 96 10/24/19 22:00 60 17 107/74 (85) 99 10/24/19 22:00 107/74 10/24/19 21:45 77 16 113/71 (85) 97 10/24/19 21:30 68 19 118/68 (85) 98 10/24/19 21:15 76 20 122/66 (84) 99 10/24/19 21:00 122/71 10/24/19 21:00 113/71 10/24/19 21:00 72 17 122/71 (88) 100 10/24/19 20:45 73 17 136/73 (94) 93 10/24/19 20:30 74 18 125/71 (89) 95 10/24/19 20:15 79 21 113/52 (72) 92 10/24/19 20:00 98.5 86 12 119/76 (90) 96 10/24/19 20:00 Room Air 10/24/19 20:00 80 10/24/19 20:00 119/76 8/11/20 19:45 77 17 117/54 (75) 98 10/24/19 19:30 77 17 110/93 (99) 99 Height (Feet): 5 Height (Inches): 7.00 Weight (Pounds): 105 General Appearance: no acute distress HEENT: normocephalic, atraumatic, anicteric, mucous membranes moist Respiratory/Chest: lungs clear, normal breath sounds, no respiratory distress, no accessory muscle use Cardiovascular: normal rate, regular rhythm, no gallop/murmur, no JVD Abdomen: normal bowel sounds, soft, non tender, no organomegaly, non distended Genitourinary: other - no donohue Extremities: no cyanosis Skin: no rash Neurologic/Psychiatric: jackaroo II-XII grossly normal, alert, responsive Lymphatic: no neck adenopathy Musculoskeletal: no effusion Chest x-ray - 10/25/19 - Procedure: XRAY Chest 1v Indication: Shortness of breath Technique: One view of the chest Comparison: 10/23/2019 Findings: There are bilateral basilar infiltrates, which appear new or increased since prior study. There is some atelectasis at the left lung base as well. Right jugular central venous catheter remains. The heart size is normal. Impression: New/increased bilateral basilar infiltrates, since prior study 2019 Microbiology Date/Time Source Procedure Growth Status 10/23/19 15:30 Blood Blood Culture - Preliminary NO GROWTH AFTER 24 HOURS Resulted 10/23/19 15:15 Blood Blood Culture - Preliminary NO GROWTH AFTER 24 HOURS Resulted 10/23/19 18:55 Nasal Nares MRSA Culture - Final Staphylococcus Aureus - Mrsa Complete 10/23/19 15:13 Urine,Clean Catch Urine Culture - Preliminary Gram Negative Bacillus 1 Resulted 10/23/19 18:55 Rectum - Final NO CARBAPENEM-RESISTANT ENTEROBACTERI... Complete 10/23/19 18:55 Rectum VRE Culture - Final Enterococcus Faecalis - Vre Complete Labs Test 10/23/19 15:13 10/24/19 02:50 10/24/19 09:00 10/24/19 21:09 White Blood Count 9.7 K/UL (4.8-10.8) 6.8 K/UL (4.8-10.8) Red Blood Count 3.15 M/UL (4.70-6.10) 2.77 M/UL (4.70-6.10) Hemoglobin 8.2 G/DL (14.2-18.0) 7.2 G/DL (14.2-18.0) Hematocrit 26.0 % (42.0-52.0) 22.9 % (42.0-52.0) Mean Corpuscular Volume 83 FL (80-99) 83 FL (80-99) Mean Corpuscular Hemoglobin 26.1 PG (27.0-31.0) 25.9 PG (27.0-31.0) Mean Corpuscular Hemoglobin Concent 31.7 G/DL (32.0-36.0) 31.3 G/DL (32.0-36.0) Red Cell Distribution Width 19.5 % (11.6-14.8) 18.5 % (11.6-14.8) Platelet Count 561 K/UL (150-450) 502 K/UL (150-450) Mean Platelet Volume 4.5 FL (6.5-10.1) 4.1 FL (6.5-10.1) Neutrophils (%) (Auto) 65.4 % (45.0-75.0) % (45.0-75.0) Lymphocytes (%) (Auto) 26.7 % (20.0-45.0) % (20.0-45.0) Monocytes (%) (Auto) 5.1 % (1.0-10.0) % (1.0-10.0) Eosinophils (%) (Auto) 1.2 % (0.0-3.0) % (0.0-3.0) Basophils (%) (Auto) 1.6 % (0.0-2.0) % (0.0-2.0) Prothrombin Time 11.9 SEC (9.30-11.50) Prothromb Time International Ratio 1.1 (0.9-1.1) Activated Partial Thromboplast Time 35 SEC (23-33) Urine Color Pale yellow Urine Appearance Slightly cloudy Urine pH 9 (4.5-8.0) Urine Specific [place] 1.010 (1.005-1.035) Urine Protein 2+ (NEGATIVE) Urine Glucose (UA) Negative (NEGATIVE) Urine Ketones Negative (NEGATIVE) Urine Blood 1+ (NEGATIVE) Urine Nitrite Positive (NEGATIVE) Urine Bilirubin Negative (NEGATIVE) Urine Urobilinogen Normal MG/DL (0.0-1.0) Urine Leukocyte Esterase 3+ (NEGATIVE) Urine RBC 2-4 /HPF (0 - 0) Urine WBC 5-10 /HPF (0 - 0) Urine Squamous Epithelial Cells None /LPF (NONE/OCC) Urine Calcium Oxalate Crystals Few /LPF (NONE) Urine Amorphous Sediment Many /LPF (NONE) Urine Bacteria Many /HPF (NONE) Sodium Level 134 MMOL/L (136-145) 143 MMOL/L (136-145) Potassium Level 3.7 MMOL/L (3.5-5.1) 3.2 MMOL/L (3.5-5.1) Chloride Level 99 MMOL/L (98-107) 109 MMOL/L (98-107) Carbon Dioxide Level 27 MMOL/L (21-32) 22 MMOL/L (21-32) Anion Gap 9 mmol/L (5-15) 12 mmol/L (5-15) Blood Urea Nitrogen 15 mg/dL (7-18) 10 mg/dL (7-18) Creatinine 0.8 MG/DL (0.55-1.30) 0.7 MG/DL (0.55-1.30) Estimat Glomerular Filtration Rate > 60 mL/min (>60) > 60 mL/min (>60) Glucose Level 131 MG/DL (74-106) 119 MG/DL (74-106) Lactic Acid Level 2.00 mmol/L (0.4-2.0) Calcium Level 9.2 MG/DL (8.5-10.1) 7.8 MG/DL (8.5-10.1) Total Bilirubin 0.3 MG/DL (0.2-1.0) Aspartate Amino Transf (AST/SGOT) 12 U/L (15-37) Alanine Aminotransferase (ALT/SGPT) 12 U/L (12-78) Alkaline Phosphatase 246 U/L (46-116) Total Creatine Kinase 49 U/L (26-308) Creatine Kinase MB 3.2 NG/ML (0.0-3.6) Creatine Kinase MB Relative Index 6.5 Troponin I 0.000 ng/mL (0.000-0.056) Total Protein 7.5 G/DL (6.4-8.2) Albumin 1.8 G/DL (3.4-5.0) Globulin 5.7 g/dL Albumin/Globulin Ratio 0.3 (1.0-2.7) Lipase 44 U/L (73-393) Random Amikacin Level 13.4 MG/L Urine Osmolality 394 mOsm/kg (429-449) Urine Random Sodium 154 mmol/L (20-110) Urine Potassium Timed 15 mmol/L (12-62) Laboratory Tests Test 10/24/19 21:09 Urine Osmolality 394 mOsm/kg (429-449) L Urine Random Sodium 154 mmol/L (20-110) H Urine Potassium Timed 15 mmol/L (12-62) Current Medications Medications (Trade) Dose Ordered Sig/Mya Route PRN Reason Start Time Stop Time Status Last Admin Dose Admin Acetaminophen (Tylenol) 650 mg Q4H PRN ORAL Mild Pain (Pain Scale 1-3) 10/23/19 17:30 11/22/19 17:29 Acetaminophen/ Hydrocodone Bitart ([place] 5/325) 1 tab Q4H PRN ORAL Moderate Pain (Pain Scale 4-6) 10/23/19 20:15 10/30/19 20:14 Acetaminophen/ Hydrocodone Bitart ([place] 5/325) 2 tab Q4H PRN ORAL Severe Pain (Pain Scale 7-10) 10/23/19 20:15 10/30/19 20:14 10/25/19 17:35 Albuterol/ Ipratropium (Albuterol/ Ipratropium) 3 ml Q6H PRN HHN Shortness of Breath 10/23/19 17:30 10/28/19 17:29 Amikacin Protocol (Amikacin pharmacy to dose) 1 ea DAILY PRN MISC Per rx protocol 10/23/19 19:30 11/22/19 19:29 Amikacin Sulfate 750 mg/Sodium Chloride 113 ml @ 113 mls/hr Q24H IV 10/24/19 21:00 10/31/19 20:59 10/24/19 20:58 Ascorbic Acid (Vitamin C) 500 mg DAILY ORAL 10/24/19 09:00 11/23/19 08:59 10/25/19 08:25 Baclofen (Lioresal) 10 mg THREE TIMES A DAY ORAL 10/23/19 18:00 11/22/19 17:59 10/25/19 17:35 Chlorhexidine Gluconate (Simran-Hex 2%) 1 applic DAILY@2000 TOPIC 10/24/19 20:00 01/22/20 19:59 10/24/19 19:59 Clonazepam (KlonoPIN) 0.5 mg Q8HR ORAL 10/23/19 21:00 10/30/19 20:59 10/25/19 13:04 Dextrose (Dextrose 50%) 25 ml Q30M PRN IV Hypoglycemia 10/23/19 17:30 01/21/20 17:29 Dextrose (Dextrose 50%) 50 ml Q30M PRN IV Hypoglycemia 10/23/19 17:30 01/21/20 17:29 Diphenhydramine HCl (Benadryl) 25 mg Q6H PRN ORAL Itching/Pruritis 10/23/19 17:30 11/22/19 17:29 Docusate Sodium (Colace) 100 mg EVERY 12 HOURS ORAL 10/23/19 21:00 11/22/19 20:59 10/25/19 08:25 Dopamine HCl/ Dextrose 250 ml @ 0 mls/hr Q24H IV 10/24/19 06:15 01/22/20 06:14 10/25/19 16:32 Ferrous Sulfate (Feosol) 325 mg DAILY ORAL 10/24/19 09:00 01/22/20 08:59 10/25/19 08:25 Gabapentin (Neurontin) 400 mg Q8HR ORAL 10/23/19 22:00 11/22/19 21:59 10/25/19 13:04 Heparin Sodium (Porcine) (Heparin 5000 units/ml) 5,000 units EVERY 12 HOURS SUBQ 10/24/19 09:00 12/08/19 08:59 10/25/19 08:26 Meropenem 1 gm/ Sodium Chloride 100 ml @ 200 mls/hr Q8HR IVPB 10/23/19 22:00 10/28/19 21:59 10/25/19 13:04 Midodrine (Pro-Amatine) 10 mg THREE TIMES A DAY ORAL 10/23/19 18:00 01/21/20 17:59 10/25/19 17:35 Norepinephrine Bitartrate 250 ml @ 0 mls/hr Q24H IV 10/23/19 21:00 01/21/20 20:59 10/23/19 20:38 Ondansetron HCl (Zofran) 4 mg Q6H PRN IVP Nausea & Vomiting 10/23/19 17:30 11/22/19 17:29 Sodium Hypochlorite (Dakin's Quarter Strength) 1 applic DAILY TOPIC 10/25/19 09:00 11/24/19 08:59 10/25/19 08:26 Sodium Chloride 1,000 ml @ 125 mls/hr Q8H IV 10/25/19 13:28 11/24/19 13:27 10/25/19 13:37 Vancomycin HCl (Vanco pharmacy to dose) 1 ea DAILY PRN MISC Per rx protocol 10/23/19 17:30 11/22/19 17:29 Vancomycin HCl 1 gm/Sodium Chloride 275 ml @ 183.708 mls/hr Q12HR@0500,1700 IVPB 10/24/19 05:00 10/29/19 04:59 10/25/19 17:34 Zinc Sulfate (Zinc Sulfate) 220 mg DAILY ORAL 10/24/19 09:00 01/22/20 08:59 10/25/19 08:25 Sharif Painting MD Oct 25, 2019 19:30
--- NOTE | 2019-10-25 19:58 | Nephrology Progress Note ---
Assessment/Plan Plan #Polyuria - r/o DI vs dopamine effect?? #Shock #UTI # infected sacral pressure ulcer #Acute metabolic encephalopathy #Paraplegia #Sacral pressure ulcer #Hypokalemia #Anemia - continue NS hydration - increase NS to 125 cc/hr - wean off dopamine as tolerated - continue midodrine 1 TID - antibiotics per ID - continue antibiotic to maintain MAP > 65 - monitor lytes - monitor for vanoc and amikacin toxicity - avoid nephrotoxins - daily weights - strict I&Os time spent 70 min- greater than 50% on care coordination and counseling Subjective ROS Limited/Unobtainable: Yes Subjective Remain on dopamin 5 polyuric K low repleted Objective Objective Last 24 Hour Vital Signs Date Time Temp Pulse Resp B/P (MAP) Pulse Ox O2 Delivery O2 Flow Rate FiO2 10/25/19 19:00 138/76 10/25/19 19:00 65 16 138/76 (96) 99 10/25/19 18:30 74 16 130/73 (92) 98 10/25/19 18:00 65 19 124/71 (88) 99 10/25/19 18:00 124/71 10/25/19 17:30 63 18 154/76 (102) 98 10/25/19 17:15 60 18 145/83 (103) 98 10/25/19 17:00 148/65 10/25/19 17:00 97.3 63 18 148/65 (92) 99 10/25/19 16:32 70/46 10/25/19 16:30 73 20 91/58 (69) 99 10/25/19 16:15 84 19 66/39 (48) 83 10/25/19 16:00 77 21 116/76 (89) 97 10/25/19 16:00 Room Air 10/25/19 16:00 116/76 10/25/19 15:36 100 10/25/19 15:30 63 18 152/76 (101) 99 10/25/19 15:15 86 21 80/49 (59) 98 10/25/19 15:00 115/72 10/25/19 15:00 70 20 115/72 (86) 98 10/25/19 14:45 65 20 115/71 (86) 98 10/25/19 14:30 86/56 10/25/19 14:30 70 18 99/68 (78) 97 10/25/19 14:00 80 16 101/73 (82) 98 10/25/19 14:00 101/73 10/25/19 13:30 84 14 99/58 (72) 98 10/25/19 13:00 111/61 10/25/19 13:00 73 19 111/61 (78) 99 10/25/19 12:30 79 16 160/79 (106) 98 10/25/19 12:00 129/70 10/25/19 12:00 Room Air 10/25/19 12:00 98.0 73 17 129/70 (89) 97 10/25/19 11:48 84 10/25/19 11:45 68 20 103/57 (72) 95 10/25/19 11:30 70 21 91/59 (70) 98 10/25/19 11:00 65 18 103/51 (68) 96 10/25/19 11:00 103/51 10/25/19 10:30 72 18 123/58 (79) 97 10/25/19 10:00 107/62 10/25/19 10:00 74 17 107/62 (77) 95 10/25/19 09:30 78 17 96/61 (73) 97 10/25/19 09:00 71 17 97/60 (72) 99 10/25/19 09:00 97/60 10/25/19 08:45 72 14 94/54 (67) 98 10/25/19 08:30 74 17 94/63 (73) 100 10/25/19 08:15 73 17 101/54 (70) 98 10/25/19 08:00 94/46 10/25/19 08:00 Room Air 10/25/19 08:00 97.3 81 18 94/46 (62) 99 10/25/19 07:30 64 17 118/68 (85) 98 10/25/19 07:18 67 10/25/19 07:15 78 16 118/69 (85) 97 10/25/19 07:00 61 15 137/67 (90) 97 10/25/19 07:00 137/67 10/25/19 06:45 62 14 125/64 (84) 98 10/25/19 06:30 70 15 118/70 (86) 99 10/25/19 06:15 67 14 127/89 (102) 100 10/25/19 06:00 88/60 10/25/19 06:00 75 14 88/60 (69) 98 10/25/19 05:45 77 16 98/61 (73) 98 10/25/19 05:30 80 16 104/65 (78) 98 10/25/19 05:15 62 16 124/68 (86) 98 10/25/19 05:00 124/73 10/25/19 05:00 59 16 124/73 (90) 98 10/25/19 04:45 58 17 138/71 (93) 99 10/25/19 04:30 60 16 130/65 (86) 97 10/25/19 04:20 81 17 118/69 (85) 98 10/25/19 04:15 78 20 10/25/19 04:00 88 10/25/19 04:00 76 10/25/19 04:00 97.8 60 17 10/25/19 04:00 118/69 10/25/19 04:00 Room Air 10/25/19 03:45 74 16 119/68 (85) 98 10/25/19 03:30 74 17 123/70 (87) 98 10/25/19 03:16 98.4 10/25/19 03:15 73 19 119/71 (87) 97 10/25/19 03:00 74 19 118/72 (87) 96 10/25/19 03:00 118/72 10/25/19 02:00 70 17 122/65 (84) 97 10/25/19 02:00 122/65 10/25/19 01:45 83 19 115/62 (79) 96 10/25/19 01:30 90 21 104/64 (77) 97 10/25/19 01:15 94 21 104/67 (79) 100 10/25/19 01:00 113/64 10/25/19 01:00 92 19 113/64 (80) 100 10/25/19 00:45 69 18 121/63 (82) 98 10/25/19 00:30 85 19 116/72 (87) 96 10/25/19 00:15 98.4 67 19 127/68 (87) 98 10/25/19 00:00 117/67 8/12/20 00:00 63 18 117/67 (84) 95 10/25/19 00:00 Room Air 10/24/19 23:45 63 18 144/69 (94) 96 10/24/19 23:35 90 20 82/55 (64) 95 10/24/19 23:33 91/64 10/24/19 23:32 91/64 10/24/19 23:30 86 26 71/45 (54) 97 10/24/19 23:15 99 19 91/64 (73) 92 10/24/19 23:00 92 20 113/67 (82) 96 10/24/19 23:00 91/64 10/24/19 22:45 80 21 111/68 (82) 95 10/24/19 22:30 82 18 112/62 (79) 93 10/24/19 22:15 78 16 119/66 (83) 96 10/24/19 22:00 60 17 107/74 (85) 99 10/24/19 22:00 107/74 10/24/19 21:45 77 16 113/71 (85) 97 10/24/19 21:30 68 19 118/68 (85) 98 10/24/19 21:15 76 20 122/66 (84) 99 10/24/19 21:00 122/71 10/24/19 21:00 113/71 10/24/19 21:00 72 17 122/71 (88) 100 10/24/19 20:45 73 17 136/73 (94) 93 10/24/19 20:30 74 18 125/71 (89) 95 10/24/19 20:15 79 21 113/52 (72) 92 10/24/19 20:00 98.5 86 12 119/76 (90) 96 10/24/19 20:00 Room Air 10/24/19 20:00 80 10/24/19 20:00 119/76 Intake and Output 10/24/19 10/25/19 19:00 07:00 Intake Total 2563.417 ml 2745.748 ml Output Total 5380 ml 3527 ml Balance -2816.583 ml -781.252 ml Intake Oral 560 ml 640 ml IV Total 2003.417 ml 2105.748 ml Output Urine Total 5380 ml 3525 ml Stool Total 2 ml # Bowel Movements 3 2 Laboratory Tests 10/24/19 21:09: Urine Osmolality 394L, Urine Random Sodium 154H, Urine Potassium Timed 15 Height (Feet): 5 Height (Inches): 7.00 Weight (Pounds): 105 General Appearance: no apparent distress EENT: PERRL/EOMI, normal ENT inspection Neck: non-tender, normal alignment Cardiovascular: normal peripheral pulses, normal rate, regular rhythm Respiratory/Chest: chest wall non-tender, lungs clear Abdomen: normal bowel sounds, non tender, soft Sienna Georges M.D. Oct 25, 2019 19:58
[2019-10-25] MEDS: Dyna-Hex 2% Top Sol 2oz TOPIC SCH (19:59)
[2019-10-25] MEDS: Norepinephrine 4mg/NS Premix 250 ML IV SCH (21:00)
[2019-10-25] MEDS: Amikacin 750 MG in NS 110 ML IV SCH (21:06)
[2019-10-26] VITALS (42 sets, daily range): BP systolic 79–131; BP diastolic 42–75
[2019-10-26] MEDS: Vancomycin 1 GM in NS 275 ML IVPB SCH (05:19)
[2019-10-26] MEDS: clonazePAM 0.5mg tab ORAL SCH ×3 (05:52→22:11)
[2019-10-26] MEDS: DOPamine 400mg/250ml 250 ML IV SCH (06:32)
[2019-10-26] MEDS: Ascorbic Acid 500mg tab ORAL SCH (08:56)
[2019-10-26] MEDS: Docusate 100mg cap ORAL SCH ×2 (08:56→20:48)
[2019-10-26] MEDS: Zinc Sulfate 220mg ORAL SCH (08:56)
[2019-10-26] MEDS: Midodrine 10mg tab ORAL SCH ×3 (08:56→17:14)
[2019-10-26] MEDS: Heparin 5000 units/ml inj SUBQ SCH ×2 (08:57→20:49)
[2019-10-26] MEDS: Dakin's 0.125% Soln (Quarter Strength) 16oz TOPIC SCH (08:57)
[2019-10-26] MEDS: HYDROcodone/Acetamin 5/325 tab ORAL PRN ×2 (09:09→17:32)
--- NOTE | 2019-10-26 09:53 | Surgery Progress Note ---
Surgery Progress Note Subjective Additional Comments note: late entry for patient seen 10/24 but because of surgeries was unable to complete note until later. no acute events comfortable stable states he is well no complaints Objective Last 24 Hour Vital Signs Date Time Temp Pulse Resp B/P (MAP) Pulse Ox O2 Delivery O2 Flow Rate FiO2 10/26/19 06:32 98/51 10/26/19 06:30 68 17 131/71 (91) 98 10/26/19 06:00 131/81 10/26/19 06:00 74 15 98/51 (67) 98 10/26/19 05:30 73 17 92/49 (63) 99 10/26/19 05:00 92/49 10/26/19 05:00 119 20 108/75 (86) 99 10/26/19 04:30 91 16 89/55 (66) 94 10/26/19 04:00 Room Air 10/26/19 04:00 89/55 10/26/19 04:00 99.0 80 20 96/53 (67) 98 10/26/19 04:00 98 10/26/19 03:30 75 19 102/65 (77) 98 10/26/19 03:00 73 19 93/54 (67) 100 10/26/19 03:00 102/65 10/26/19 02:30 72 20 90/55 (67) 100 10/26/19 02:00 90/55 10/26/19 02:00 79 17 105/60 (75) 100 10/26/19 01:30 78 20 88/58 (68) 100 10/26/19 01:00 88/58 10/26/19 01:00 76 19 88/62 (71) 100 10/26/19 00:30 76 17 123/70 (87) 99 10/26/19 00:00 98.8 70 17 106/54 (71) 98 10/26/19 00:00 123/70 10/26/19 00:00 Room Air 10/26/19 00:00 80 10/25/19 23:30 74 18 80/55 (63) 98 10/25/19 23:00 74 18 117/72 (87) 98 10/25/19 23:00 110/73 10/25/19 22:30 76 16 111/62 (78) 98 10/25/19 22:00 69 15 131/66 (87) 99 10/25/19 22:00 110/61 10/25/19 22:00 110/61 10/25/19 21:30 75 17 122/70 (87) 99 10/25/19 21:00 69 17 129/69 (89) 98 10/25/19 21:00 129/84 10/25/19 21:00 129/69 10/25/19 20:45 79 17 118/68 (85) 98 10/25/19 20:30 67 16 118/71 (87) 98 10/25/19 20:15 73 16 127/87 (100) 98 10/25/19 20:00 Room Air 10/25/19 20:00 127/87 10/25/19 20:00 79 10/25/19 20:00 99.0 74 16 122/69 (86) 98 10/25/19 19:45 71 17 106/64 (78) 98 10/25/19 19:30 85 18 101/68 (79) 99 10/25/19 19:00 138/76 10/25/19 19:00 65 16 138/76 (96) 99 10/25/19 18:30 74 16 130/73 (92) 98 10/25/19 18:00 65 19 124/71 (88) 99 10/25/19 18:00 124/71 10/25/19 17:30 63 18 154/76 (102) 98 10/25/19 17:15 60 18 145/83 (103) 98 10/25/19 17:00 148/65 10/25/19 17:00 97.3 63 18 148/65 (92) 99 10/25/19 16:32 70/46 10/25/19 16:30 73 20 91/58 (69) 99 10/25/19 16:15 84 19 66/39 (48) 83 10/25/19 16:00 77 21 116/76 (89) 97 10/25/19 16:00 Room Air 10/25/19 16:00 116/76 10/25/19 15:36 100 10/25/19 15:30 63 18 152/76 (101) 99 10/25/19 15:15 86 21 80/49 (59) 98 10/25/19 15:00 115/72 10/25/19 15:00 70 20 115/72 (86) 98 10/25/19 14:45 65 20 115/71 (86) 98 10/25/19 14:30 86/56 10/25/19 14:30 70 18 99/68 (78) 97 10/25/19 14:00 80 16 101/73 (82) 98 10/25/19 14:00 101/73 10/25/19 13:30 84 14 99/58 (72) 98 10/25/19 13:00 111/61 10/25/19 13:00 73 19 111/61 (78) 99 10/25/19 12:30 79 16 160/79 (106) 98 10/25/19 12:00 129/70 10/25/19 12:00 Room Air 10/25/19 12:00 98.0 73 17 129/70 (89) 97 10/25/19 11:48 84 10/25/19 11:45 68 20 103/57 (72) 95 10/25/19 11:30 70 21 91/59 (70) 98 10/25/19 11:00 65 18 103/51 (68) 96 10/25/19 11:00 103/51 10/25/19 10:30 72 18 123/58 (79) 97 10/25/19 10:00 107/62 10/25/19 10:00 74 17 107/62 (77) 95 I&O Intake and Output 10/25/19 10/26/19 19:00 07:00 Intake Total 2232.290 ml 2258.590 ml Output Total 2375 ml 2040 ml Balance -142.710 ml 218.590 ml Intake Oral 400 ml 380 ml IV Total 1832.290 ml 1878.590 ml Output Urine Total 2375 ml 2040 ml # Bowel Movements 1 Dressing: other Wound: other Cardiovascular: RSR Respiratory: decreased breath sounds Abdomen: soft, non-tender, present bowel sounds Extremities: no cyanosis Laboratory Tests Test 10/26/19 08:20 Vancomycin Level Trough Pending Plan Problems: (1) Abdominal distension Assessment & Plan: abd distention soft non tender ostomy viable and reduced KUB ordered pending results (2) Anemia (3) Encephalopathy (4) Drug (multiple) resistant infection (5) Urinary tract infection in male (6) Hypokalemia (7) Femur fracture (8) Hyponatremia (9) Sepsis (10) UTI (urinary tract infection) (11) Hypotension (12) Vomiting (13) Left leg pain (14) Decubital ulcer Assessment & Plan: Pt presented on admission with multiple Pressure injuries.Colostomy abd okay mild distention, currently reduced Unstageable Pressure Injury R lumbar sacral area(L)2cm x (W)3.5cm.75% soft necrosis, 25% mixed erythema with slough at base of wound. Marginal erythema along borders and periwound. 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 Beefy red granulation at base of wound scattered areas of Biofilm. Sacral bone is palpable. Scattered areas of erythema along borders.Borders are irregular -an area of mixed soft necrosis and slough with marginal erythema extending away from wound noted at approx 2-3o"clock along borders(L)1.2cm x (W)3.3cm. No odor noted from Sacral wound. Small amt serosanguineous exudate noted. Full thickness stage 4 Pressure injury with undermined borders and tunneling R Ischium(L)7.5cm x (W)4.8cm x (D)1cm ,undermining clockwise 11-3 by 3.1cm @12o' clock,tunneling @5o'clock by 2.3cm. Beefy- red granulation with small amt Biofilm noted at base of wound. Marginal erythema along borders.Small amt serosanguineous exudate noted. No erythema or evidence of further skin breakdown periwound. Three small areas that are in cluster that are red and indurated . Noted to R Iliac(L)4cm x (W)1.5cm. Bony protrusion with erythema L trochanteric. Historical scar noted at L trochanter. Unstageable Pressure injury medial L Knee (L)2.6cm x (W)1.5cm. 100% yellow slough at base of wound. Marginal erythema along edges. Small amt singer coloured exudate. No odor noted. Unstageable Pressure injury medial R knee(L)1.8cm x (W)1.3cm. 100% slough at base of wound. Borders are macerated. Small amt singer coloured exudate noted. No erythema induration or fluctuance periwound. Loose dry scab R pre tibial(L)2cm x (W)0.9cm.smaller dry scab noted laterally R tibia(L)0.7cm x (W)0.6cm. Resolving Pressure injury Plantar L Heel(L)7cm x (W)4cm. Base of wound is 75% dry and pale in colour and bone is palpable when minimally palpated.Two small wounds within wound bed. At medial aspect of L heel is indurated purpl area with maroon borders(L)1.5cm x (W)1.4cm.At lateral aspect of plantar is unstageable Pressure injury. 50% soft necrosis ,50% surrounding maroon borders.No odor or exudate noted. Resolving Pressure injury R heel. Base of wound is 40% soft necrosis,60% pale pink. Edges are adherent to base of wound. No odor or exudate noted . Periwound heel is boggy but blanchable. Non-viable tissue on sacral wounds removed with curette by Dr. Salgado. Wounds are more viable.Each wounds cleansed with Saline. Therahoney applied to wound R lumbar Sacral area and covered with Optifoam drsg. Cavilon Skin Barrier applied to bony protrusion L trochanter and covered with Optifoam drsg. Cavilon Skin Barrier applied to Three areas on R iliac. Covered with Optifoam drsg. Placement of NPWT:Cavilon Skin Barrier applied to borders of both Sacral and R trochanteric wounds then lined with Transparent drape sheet. Additional skin prep and transparent drsg then bridged from R ischial wound to R pelvis . Granulofoam packings cut to conformed to shape and size of Sacral and R ischial wounds. Foam bridge created between Sacral and R Ischial wounds. Granulofoam bridge then created to R pelvis. Trac Pad placed at R pelvis. NPWT initiated at 125mm/Hg to continuous suction. Pt tolerated procedure. Wounds medial R and L knees cleansed with Saline. Therahoney applied to each wound respectively. Each wound covered with Optifoam drsgs.R and L Heel swabbed with Betadine and each heel covered with Optifoam drsgs. An APM/SUMI Mattress placed on pt's bed. Pt positioned with pillows and with both heels floated with pillow off mattress. Tx.Plan: Cleanse wounds Medial R and L knee and lumbar -sacral wounds with Saline.Apply Cavilon periwound. Cover each wound with Optifoam drsgs every 3 days and prn. Cleanse Sacral and R Ischial wounds with Saline. Apply Cavilon Skin Barrier along Borders of each wound. Place transparent drape sheet along borders of each wound and space between sacral and R ischium. Cut Granulofoam to size of each wound. Create Foam bridge between sacral and R ischial wound.Create second foam bridge from R Ischium to R Pelvis. Place Trac Pad at R Pelvis. NPWT to continuous suction at 125mm/Hg. Apply Betadine to R and L Heel wounds . Cover each heel with Optifoam drsg. Change every 3 days and prn. Cover dry scabs R tibia with Optifoam drsg. change every 3 days and prn. Reposition at least every 2hours or as tolerated. Off-load heels with pillow. Place pillow between knees. APM/SUMI Mattress overlay. (15) SEAN (acute kidney injury) (16) Ileostomy prolapse Assessment & Plan: currently reduced but abd distended pending films Cornelius Salgado Oct 26, 2019 09:53
--- NOTE | 2019-10-26 10:15 | Cardiac Electrophysiology PN ---
Assessment/Plan Assessment/Plan 1. Hypotension likely due to septic shock. Was diuresing heavily at 300 mL an hour. Continue Midodrine and dopamine. On IV antibiotic with vancomycin and meropenem and amikacin. 2. Bradycardia. Continue dopamine. 3. Paraplegia. 4. Urinary tract infection, followed by Dr. Painting on broad-spectrum IV antibiotic. 5. Decubitus ulcers with sacral decubitus. Subjective Subjective Alert in NAD in ICU. Dopamine increased to 8 Mcg and also on Midodrine. RN at bedside Objective Last 24 Hour Vital Signs Date Time Temp Pulse Resp B/P (MAP) Pulse Ox O2 Delivery O2 Flow Rate FiO2 10/26/19 08:00 78 10/26/19 06:32 98/51 10/26/19 06:30 68 17 131/71 (91) 98 10/26/19 06:00 131/81 10/26/19 06:00 74 15 98/51 (67) 98 10/26/19 05:30 73 17 92/49 (63) 99 10/26/19 05:00 92/49 10/26/19 05:00 119 20 108/75 (86) 99 10/26/19 04:30 91 16 89/55 (66) 94 10/26/19 04:00 Room Air 10/26/19 04:00 89/55 10/26/19 04:00 99.0 80 20 96/53 (67) 98 10/26/19 04:00 98 10/26/19 03:30 75 19 102/65 (77) 98 10/26/19 03:00 73 19 93/54 (67) 100 10/26/19 03:00 102/65 10/26/19 02:30 72 20 90/55 (67) 100 10/26/19 02:00 90/55 10/26/19 02:00 79 17 105/60 (75) 100 10/26/19 01:30 78 20 88/58 (68) 100 10/26/19 01:00 88/58 10/26/19 01:00 76 19 88/62 (71) 100 10/26/19 00:30 76 17 123/70 (87) 99 10/26/19 00:00 98.8 70 17 106/54 (71) 98 10/26/19 00:00 123/70 10/26/19 00:00 Room Air 10/26/19 00:00 80 10/25/19 23:30 74 18 80/55 (63) 98 10/25/19 23:00 74 18 117/72 (87) 98 10/25/19 23:00 110/73 10/25/19 22:30 76 16 111/62 (78) 98 10/25/19 22:00 69 15 131/66 (87) 99 10/25/19 22:00 110/61 10/25/19 22:00 110/61 10/25/19 21:30 75 17 122/70 (87) 99 10/25/19 21:00 69 17 129/69 (89) 98 10/25/19 21:00 129/84 10/25/19 21:00 129/69 10/25/19 20:45 79 17 118/68 (85) 98 10/25/19 20:30 67 16 118/71 (87) 98 10/25/19 20:15 73 16 127/87 (100) 98 10/25/19 20:00 Room Air 10/25/19 20:00 127/87 10/25/19 20:00 79 10/25/19 20:00 99.0 74 16 122/69 (86) 98 10/25/19 19:45 71 17 106/64 (78) 98 10/25/19 19:30 85 18 101/68 (79) 99 10/25/19 19:00 138/76 10/25/19 19:00 65 16 138/76 (96) 99 10/25/19 18:30 74 16 130/73 (92) 98 10/25/19 18:00 65 19 124/71 (88) 99 10/25/19 18:00 124/71 10/25/19 17:30 63 18 154/76 (102) 98 10/25/19 17:15 60 18 145/83 (103) 98 10/25/19 17:00 148/65 10/25/19 17:00 97.3 63 18 148/65 (92) 99 10/25/19 16:32 70/46 10/25/19 16:30 73 20 91/58 (69) 99 10/25/19 16:15 84 19 66/39 (48) 83 10/25/19 16:00 77 21 116/76 (89) 97 10/25/19 16:00 Room Air 10/25/19 16:00 116/76 10/25/19 15:36 100 10/25/19 15:30 63 18 152/76 (101) 99 10/25/19 15:15 86 21 80/49 (59) 98 10/25/19 15:00 115/72 10/25/19 15:00 70 20 115/72 (86) 98 10/25/19 14:45 65 20 115/71 (86) 98 10/25/19 14:30 86/56 10/25/19 14:30 70 18 99/68 (78) 97 10/25/19 14:00 80 16 101/73 (82) 98 10/25/19 14:00 101/73 10/25/19 13:30 84 14 99/58 (72) 98 10/25/19 13:00 111/61 10/25/19 13:00 73 19 111/61 (78) 99 10/25/19 12:30 79 16 160/79 (106) 98 10/25/19 12:00 129/70 10/25/19 12:00 Room Air 10/25/19 12:00 98.0 73 17 129/70 (89) 97 10/25/19 11:48 84 10/25/19 11:45 68 20 103/57 (72) 95 10/25/19 11:30 70 21 91/59 (70) 98 10/25/19 11:00 65 18 103/51 (68) 96 10/25/19 11:00 103/51 10/25/19 10:30 72 18 123/58 (79) 97 Intake and Output 10/25/19 10/26/19 19:00 07:00 Intake Total 2232.290 ml 2258.590 ml Output Total 2375 ml 2040 ml Balance -142.710 ml 218.590 ml Intake Oral 400 ml 380 ml IV Total 1832.290 ml 1878.590 ml Output Urine Total 2375 ml 2040 ml # Bowel Movements 1 Laboratory Tests Test 10/26/19 08:20 Vancomycin Level Trough Pending Microbiology Date/Time Source Procedure Growth Status 10/23/19 15:30 Blood Blood Culture - Preliminary NO GROWTH AFTER 48 HOURS Resulted 10/23/19 15:15 Blood Blood Culture - Preliminary NO GROWTH AFTER 48 HOURS Resulted 10/23/19 18:55 Nasal Nares MRSA Culture - Final Staphylococcus Aureus - Mrsa Complete 10/23/19 15:13 Urine,Clean Catch Urine Culture - Preliminary Proteus Mirabilis Resulted 10/23/19 18:55 Rectum - Final NO CARBAPENEM-RESISTANT ENTEROBACTERI... Complete 10/23/19 18:55 Rectum VRE Culture - Final Enterococcus Faecalis - Vre Complete Objective HEAD AND NECK: Showed no JVD. LUNGS: Coarse rhonchi. CARDIOVASCULAR: Shows regular S1 and S2 with no gallop. ABDOMEN: Soft. EXTREMITIES: No pitting edema, however, has pressure ulcers. Carloz Estes MD Oct 26, 2019 10:15
--- NOTE | 2019-10-26 10:32 | Nephrology Progress Note ---
Assessment/Plan Plan #Polyuria - r/o DI vs dopamine effect??- however sodium remains in normal range #Shock #UTI # infected sacral pressure ulcer #Acute metabolic encephalopathy #Paraplegia #Sacral pressure ulcer #Hypokalemia #Anemia - continue NS hydration - increase NS to 150 cc/hr - repeat urine sodium and urine osm - desmopressin 2mcg IV x1 today - wean off dopamine as tolerated - continue midodrine 1 TID - antibiotics per ID - continue antibiotic to maintain MAP > 65 - monitor lytes - monitor for vanoc toxicity - avoid nephrotoxins - daily weights - strict I&Os time spent 70 min- greater than 50% on care coordination and counseling Subjective ROS Limited/Unobtainable: Yes Subjective polyuric- put out 4.9L yesterday on dopamine 8 Bradycardic when weaned off dopa K low repleted Objective Objective Last 24 Hour Vital Signs Date Time Temp Pulse Resp B/P (MAP) Pulse Ox O2 Delivery O2 Flow Rate FiO2 10/26/19 10:00 59 12 125/69 (87) 98 10/26/19 09:30 74 16 103/58 (73) 98 10/26/19 09:00 77 15 89/59 (69) 91 10/26/19 08:30 88 14 89/57 (68) 98 10/26/19 08:00 82 15 88/46 (60) 98 10/26/19 08:00 78 10/26/19 07:30 84 13 81/60 (67) 98 10/26/19 07:00 98.0 82 15 79/52 (61) 98 10/26/19 06:32 98/51 10/26/19 06:30 68 17 131/71 (91) 98 10/26/19 06:00 131/81 10/26/19 06:00 74 15 98/51 (67) 98 10/26/19 05:30 73 17 92/49 (63) 99 10/26/19 05:00 92/49 10/26/19 05:00 119 20 108/75 (86) 99 10/26/19 04:30 91 16 89/55 (66) 94 10/26/19 04:00 Room Air 10/26/19 04:00 89/55 10/26/19 04:00 99.0 80 20 96/53 (67) 98 10/26/19 04:00 98 10/26/19 03:30 75 19 102/65 (77) 98 10/26/19 03:00 73 19 93/54 (67) 100 10/26/19 03:00 102/65 10/26/19 02:30 72 20 90/55 (67) 100 10/26/19 02:00 90/55 10/26/19 02:00 79 17 105/60 (75) 100 10/26/19 01:30 78 20 88/58 (68) 100 10/26/19 01:00 88/58 10/26/19 01:00 76 19 88/62 (71) 100 10/26/19 00:30 76 17 123/70 (87) 99 10/26/19 00:00 98.8 70 17 106/54 (71) 98 10/26/19 00:00 123/70 10/26/19 00:00 Room Air 10/26/19 00:00 80 10/25/19 23:30 74 18 80/55 (63) 98 10/25/19 23:00 74 18 117/72 (87) 98 10/25/19 23:00 110/73 10/25/19 22:30 76 16 111/62 (78) 98 10/25/19 22:00 69 15 131/66 (87) 99 10/25/19 22:00 110/61 10/25/19 22:00 110/61 10/25/19 21:30 75 17 122/70 (87) 99 10/25/19 21:00 69 17 129/69 (89) 98 10/25/19 21:00 129/84 10/25/19 21:00 129/69 10/25/19 20:45 79 17 118/68 (85) 98 10/25/19 20:30 67 16 118/71 (87) 98 10/25/19 20:15 73 16 127/87 (100) 98 10/25/19 20:00 Room Air 10/25/19 20:00 127/87 10/25/19 20:00 79 10/25/19 20:00 99.0 74 16 122/69 (86) 98 10/25/19 19:45 71 17 106/64 (78) 98 10/25/19 19:30 85 18 101/68 (79) 99 10/25/19 19:00 138/76 10/25/19 19:00 65 16 138/76 (96) 99 10/25/19 18:30 74 16 130/73 (92) 98 10/25/19 18:00 65 19 124/71 (88) 99 10/25/19 18:00 124/71 10/25/19 17:30 63 18 154/76 (102) 98 10/25/19 17:15 60 18 145/83 (103) 98 10/25/19 17:00 148/65 10/25/19 17:00 97.3 63 18 148/65 (92) 99 10/25/19 16:32 70/46 10/25/19 16:30 73 20 91/58 (69) 99 10/25/19 16:15 84 19 66/39 (48) 83 10/25/19 16:00 77 21 116/76 (89) 97 10/25/19 16:00 Room Air 10/25/19 16:00 116/76 10/25/19 15:36 100 10/25/19 15:30 63 18 152/76 (101) 99 10/25/19 15:15 86 21 80/49 (59) 98 10/25/19 15:00 115/72 10/25/19 15:00 70 20 115/72 (86) 98 10/25/19 14:45 65 20 115/71 (86) 98 10/25/19 14:30 86/56 10/25/19 14:30 70 18 99/68 (78) 97 10/25/19 14:00 80 16 101/73 (82) 98 10/25/19 14:00 101/73 10/25/19 13:30 84 14 99/58 (72) 98 10/25/19 13:00 111/61 10/25/19 13:00 73 19 111/61 (78) 99 10/25/19 12:30 79 16 160/79 (106) 98 10/25/19 12:00 129/70 10/25/19 12:00 Room Air 10/25/19 12:00 98.0 73 17 129/70 (89) 97 10/25/19 11:48 84 10/25/19 11:45 68 20 103/57 (72) 95 10/25/19 11:30 70 21 91/59 (70) 98 10/25/19 11:00 65 18 103/51 (68) 96 10/25/19 11:00 103/51 Intake and Output 10/25/19 10/26/19 19:00 07:00 Intake Total 2232.290 ml 2308.590 ml Output Total 2375 ml 2240 ml Balance -142.710 ml 68.590 ml Intake Oral 400 ml 430 ml IV Total 1832.290 ml 1878.590 ml Output Urine Total 2375 ml 2240 ml # Bowel Movements 1 Laboratory Tests 10/26/19 08:20: Vancomycin Level Trough [Pending] Height (Feet): 5 Height (Inches): 7.00 Weight (Pounds): 107 Sienna Georges M.D. Oct 26, 2019 10:32
--- NOTE | 2019-10-26 10:39 | General Progress Note ---
Assessment/Plan Assessment/Plan: '59 year old man who presents from LVT with weakness, encephalopathy, concern for septic shock, possible from UTI vs infected sacral pressure ulcer #Septic shock #Proteus UTI #Acute metabolic encephalopathy #Paraplegia #Sacral pressure ulcer, present on admit -continue ICU care -Wean off vasopressors -can likely stop vanco and amikacin and meropenem, will discuss with ID -Spoke with surgery, sacral pressure ulcer does not appear to be infected -Local wound care and offloading #Sinus Bradycardia to 44 -continue telemetry -consulted Dr. Estes, recs appreciated #Hypokalemia -monitor BMP daily #Anemia, acute on chronic -monitor H&H -Hematology consulted VTE PPx HSQ Full Code I spent 75 minutes on this patient's case, and 38 mins was dedicated to critical care Critical Care Services performed include: Telemetry Review Hemodynamic measurement interpretation Laboratory data review and interpretation Radiology image review and interpretation Discussion of patient's care with ICU team, ICU Nursing staff and/or consulting services Subjective Date patient seen: Oct 26, 2019 Time patient seen: 07:45 ROS Limited/Unobtainable: Yes Constitutional: Denies: chills, fever Cardiovascular: Denies: chest pain Respiratory: Denies: cough Gastrointestinal/Abdominal: Denies: abdominal pain Allergies: Coded Allergies: No Known Allergies (Unverified , 08/15/19) Subjective Follow up for septic shock, possible UTI, acute metabolic encephalopathy Patient remains on dopamine Patient refusing labs draws, RN to attempt to draw off central line Objective Last 24 Hour Vital Signs Date Time Temp Pulse Resp B/P (MAP) Pulse Ox O2 Delivery O2 Flow Rate FiO2 10/26/19 10:00 59 12 125/69 (87) 98 10/26/19 09:30 74 16 103/58 (73) 98 10/26/19 09:00 77 15 89/59 (69) 91 10/26/19 08:30 88 14 89/57 (68) 98 10/26/19 08:00 82 15 88/46 (60) 98 10/26/19 08:00 78 10/26/19 07:30 84 13 81/60 (67) 98 10/26/19 07:00 98.0 82 15 79/52 (61) 98 10/26/19 06:32 98/51 10/26/19 06:30 68 17 131/71 (91) 98 10/26/19 06:00 131/81 10/26/19 06:00 74 15 98/51 (67) 98 10/26/19 05:30 73 17 92/49 (63) 99 10/26/19 05:00 92/49 10/26/19 05:00 119 20 108/75 (86) 99 10/26/19 04:30 91 16 89/55 (66) 94 10/26/19 04:00 Room Air 10/26/19 04:00 89/55 10/26/19 04:00 99.0 80 20 96/53 (67) 98 10/26/19 04:00 98 10/26/19 03:30 75 19 102/65 (77) 98 10/26/19 03:00 73 19 93/54 (67) 100 10/26/19 03:00 102/65 10/26/19 02:30 72 20 90/55 (67) 100 10/26/19 02:00 90/55 10/26/19 02:00 79 17 105/60 (75) 100 10/26/19 01:30 78 20 88/58 (68) 100 10/26/19 01:00 88/58 10/26/19 01:00 76 19 88/62 (71) 100 10/26/19 00:30 76 17 123/70 (87) 99 10/26/19 00:00 98.8 70 17 106/54 (71) 98 10/26/19 00:00 123/70 10/26/19 00:00 Room Air 10/26/19 00:00 80 10/25/19 23:30 74 18 80/55 (63) 98 10/25/19 23:00 74 18 117/72 (87) 98 10/25/19 23:00 110/73 10/25/19 22:30 76 16 111/62 (78) 98 10/25/19 22:00 69 15 131/66 (87) 99 10/25/19 22:00 110/61 10/25/19 22:00 110/61 10/25/19 21:30 75 17 122/70 (87) 99 10/25/19 21:00 69 17 129/69 (89) 98 10/25/19 21:00 129/84 8/12/20 21:00 129/69 10/25/19 20:45 79 17 118/68 (85) 98 10/25/19 20:30 67 16 118/71 (87) 98 10/25/19 20:15 73 16 127/87 (100) 98 10/25/19 20:00 Room Air 10/25/19 20:00 127/87 10/25/19 20:00 79 10/25/19 20:00 99.0 74 16 122/69 (86) 98 10/25/19 19:45 71 17 106/64 (78) 98 10/25/19 19:30 85 18 101/68 (79) 99 10/25/19 19:00 138/76 10/25/19 19:00 65 16 138/76 (96) 99 10/25/19 18:30 74 16 130/73 (92) 98 10/25/19 18:00 65 19 124/71 (88) 99 10/25/19 18:00 124/71 10/25/19 17:30 63 18 154/76 (102) 98 10/25/19 17:15 60 18 145/83 (103) 98 10/25/19 17:00 148/65 10/25/19 17:00 97.3 63 18 148/65 (92) 99 10/25/19 16:32 70/46 10/25/19 16:30 73 20 91/58 (69) 99 10/25/19 16:15 84 19 66/39 (48) 83 10/25/19 16:00 77 21 116/76 (89) 97 10/25/19 16:00 Room Air 10/25/19 16:00 116/76 10/25/19 15:36 100 10/25/19 15:30 63 18 152/76 (101) 99 10/25/19 15:15 86 21 80/49 (59) 98 10/25/19 15:00 115/72 10/25/19 15:00 70 20 115/72 (86) 98 10/25/19 14:45 65 20 115/71 (86) 98 10/25/19 14:30 86/56 10/25/19 14:30 70 18 99/68 (78) 97 10/25/19 14:00 80 16 101/73 (82) 98 8/12/20 14:00 101/73 10/25/19 13:30 84 14 99/58 (72) 98 10/25/19 13:00 111/61 10/25/19 13:00 73 19 111/61 (78) 99 10/25/19 12:30 79 16 160/79 (106) 98 10/25/19 12:00 129/70 10/25/19 12:00 Room Air 10/25/19 12:00 98.0 73 17 129/70 (89) 97 10/25/19 11:48 84 10/25/19 11:45 68 20 103/57 (72) 95 10/25/19 11:30 70 21 91/59 (70) 98 10/25/19 11:00 65 18 103/51 (68) 96 10/25/19 11:00 103/51 10/25/19 10:30 72 18 123/58 (79) 97 Intake and Output 10/25/19 10/26/19 19:00 07:00 Intake Total 2232.290 ml 2308.590 ml Output Total 2375 ml 2240 ml Balance -142.710 ml 68.590 ml Intake Oral 400 ml 430 ml IV Total 1832.290 ml 1878.590 ml Output Urine Total 2375 ml 2240 ml # Bowel Movements 1 Laboratory Tests 10/26/19 08:20: Vancomycin Level Trough [Pending] Height (Feet): 5 Height (Inches): 7.00 Weight (Pounds): 107 General Appearance: no apparent distress, alert Neck: normal alignment, supple Cardiovascular: normal rate, regular rhythm Respiratory/Chest: lungs clear, normal breath sounds John Tejada MD Oct 26, 2019 10:39
[2019-10-26 10:42] LABS: HEMATOCRIT 23.4 % (42.0-52.0); HEMOGLOBIN 7.2 G/DL (14.2-18.0); MEAN CORPUSCULAR VOLUME 83 FL (80-99); PLATELET COUNT 337 K/UL (150-450); RED BLOOD COUNT 2.83 M/UL (4.70-6.10); RED CELL DISTRIBUTION WIDTH 18.1 % (11.6-14.8); WHITE BLOOD COUNT 8.2 K/UL (4.8-10.8)
[2019-10-26 10:45] LABS: ANION GAP 8 mmol/L (5-15); BLOOD UREA NITROGEN 9 mg/dL (7-18); CARBON DIOXIDE 27 MMOL/L (21-32); CHLORIDE 103 MMOL/L (98-107); CREATININE 0.4 MG/DL (0.55-1.30); POTASSIUM 3.3 MMOL/L (3.5-5.1); SODIUM 138 MMOL/L (136-145)
[2019-10-26] MEDS ORDERED: Desmopressin (DDAVP) Inj IV SCH (13:00)
[2019-10-26 14:25] LABS: APPEARANCE,URINE CLEAR; BILIRUBIN, URINE NEGATIVE (NEGATIVE); COLOR,URINE PALE YELLOW; GLUCOSE, URINE (UA) NEGATIVE (NEGATIVE); KETONES,URINE NEGATIVE (NEGATIVE); LEUKOCYTE ESTERASE ,URINE NEGATIVE (NEGATIVE); NITRITE,URINE NEGATIVE (NEGATIVE); PH,URINE 7 (4.5-8.0); PROTEIN,URINE NEGATIVE (NEGATIVE); UROBILINOGEN,URINE NORMAL MG/DL (0.0-1.0)
--- NOTE | 2019-10-26 17:49 | Pulmonology Progress Note ---
Subjective ROS Limited/Unobtainable: Yes Interval Events: Looking better Constitutional: Reports: fatigue; Denies: fever HEENT: Repors: no symptoms Respiratory: Reports: no symptoms Cardiovascular: Reports: no symptoms Gastrointestinal/Abdominal: Denies: nausea, vomiting, diarrhea Genitourinary: Reports: no symptoms Psychiatric: Reports: other - NA Skin: Denies: rash Musculoskeletal: Denies: pain Allergies: Coded Allergies: No Known Allergies (Unverified , 08/15/19) Objective Last 24 Hour Vital Signs Date Time Temp Pulse Resp B/P (MAP) Pulse Ox O2 Delivery O2 Flow Rate FiO2 10/26/19 17:30 73 20 119/63 (81) 99 10/26/19 17:00 78 16 85/60 (68) 10/26/19 16:00 Room Air 10/26/19 16:00 73 10/26/19 16:00 98.8 65 15 106/54 (71) 100 10/26/19 15:00 78 19 110/66 (81) 99 10/26/19 14:30 83 13 94/55 (68) 98 10/26/19 14:00 84 12 90/63 (72) 96 10/26/19 13:30 69 13 83/57 (66) 96 10/26/19 13:00 70 15 95/59 (71) 98 10/26/19 12:00 91/55 10/26/19 12:00 Room Air 10/26/19 12:00 70 10/26/19 12:00 98.4 63 12 91/55 (67) 98 10/26/19 11:00 74 13 110/73 (85) 97 10/26/19 11:00 110/73 10/26/19 10:00 125/69 10/26/19 10:00 59 12 125/69 (87) 98 10/26/19 09:30 74 16 103/58 (73) 98 10/26/19 09:00 77 15 89/59 (69) 91 10/26/19 09:00 89/59 10/26/19 08:30 88 14 89/57 (68) 98 10/26/19 08:00 88/46 10/26/19 08:00 82 15 88/46 (60) 98 10/26/19 08:00 78 10/26/19 08:00 Room Air 10/26/19 07:30 84 13 81/60 (67) 98 10/26/19 07:00 79/52 10/26/19 07:00 98.0 82 15 79/52 (61) 98 10/26/19 06:32 98/51 10/26/19 06:30 68 17 131/71 (91) 98 10/26/19 06:00 131/81 10/26/19 06:00 74 15 98/51 (67) 98 10/26/19 05:30 73 17 92/49 (63) 99 10/26/19 05:00 92/49 10/26/19 05:00 119 20 108/75 (86) 99 10/26/19 04:30 91 16 89/55 (66) 94 10/26/19 04:00 Room Air 10/26/19 04:00 89/55 10/26/19 04:00 99.0 80 20 96/53 (67) 98 10/26/19 04:00 98 10/26/19 03:30 75 19 102/65 (77) 98 10/26/19 03:00 73 19 93/54 (67) 100 10/26/19 03:00 102/65 10/26/19 02:30 72 20 90/55 (67) 100 10/26/19 02:00 90/55 10/26/19 02:00 79 17 105/60 (75) 100 10/26/19 01:30 78 20 88/58 (68) 100 10/26/19 01:00 88/58 10/26/19 01:00 76 19 88/62 (71) 100 10/26/19 00:30 76 17 123/70 (87) 99 10/26/19 00:00 98.8 70 17 106/54 (71) 98 10/26/19 00:00 123/70 10/26/19 00:00 Room Air 10/26/19 00:00 80 10/25/19 23:30 74 18 80/55 (63) 98 10/25/19 23:00 74 18 117/72 (87) 98 10/25/19 23:00 110/73 10/25/19 22:30 76 16 111/62 (78) 98 10/25/19 22:00 69 15 131/66 (87) 99 10/25/19 22:00 110/61 10/25/19 22:00 110/61 10/25/19 21:30 75 17 122/70 (87) 99 10/25/19 21:00 69 17 129/69 (89) 98 10/25/19 21:00 129/84 10/25/19 21:00 129/69 10/25/19 20:45 79 17 118/68 (85) 98 10/25/19 20:30 67 16 118/71 (87) 98 10/25/19 20:15 73 16 127/87 (100) 98 10/25/19 20:00 Room Air 10/25/19 20:00 127/87 10/25/19 20:00 79 10/25/19 20:00 99.0 74 16 122/69 (86) 98 10/25/19 19:45 71 17 106/64 (78) 98 10/25/19 19:30 85 18 101/68 (79) 99 10/25/19 19:00 138/76 10/25/19 19:00 65 16 138/76 (96) 99 10/25/19 18:30 74 16 130/73 (92) 98 10/25/19 18:00 65 19 124/71 (88) 99 10/25/19 18:00 124/71 Intake and Output 10/25/19 10/26/19 19:00 07:00 Intake Total 2232.290 ml 2447.878 ml Output Total 2375 ml 2240 ml Balance -142.710 ml 207.878 ml Intake Oral 400 ml 430 ml IV Total 1832.290 ml 2017.878 ml Output Urine Total 2375 ml 2240 ml # Bowel Movements 1 General Appearance: no acute distress HEENT: normocephalic Respiratory: chest wall non-tender, lungs clear Cardiovascular: normal peripheral pulses, regular rhythm Abdomen: normal bowel sounds Extremities: no cyanosis Microbiology Date/Time Source Procedure Growth Status 10/23/19 18:55 Nasal Nares MRSA Culture - Final Staphylococcus Aureus - Mrsa Complete 10/23/19 18:55 Rectum - Final NO CARBAPENEM-RESISTANT ENTEROBACTERI... Complete 10/23/19 18:55 Rectum VRE Culture - Final Enterococcus Faecalis - Vre Complete Laboratory Tests 10/26/19 08:30: Urine Color Pale yellow, Urine Appearance Clear, Urine pH 7, Urine Specific [place] 1.005, Urine Protein Negative, Urine Glucose (UA) Negative, Urine Ketones Negative, Urine Blood Negative, Urine Nitrite Negative, Urine Bilirubin Negative, Urine Urobilinogen Normal, Urine Leukocyte Esterase Negative, Urine RBC 0, Urine WBC 0-2, Urine Squamous Epithelial Cells None, Urine Bacteria Occasional, Urine Osmolality 230L, Urine Random Sodium 81, Urine Creatinine 5.9L 10/26/19 09:20: White Blood Count 8.2, Red Blood Count 2.83L, Hemoglobin 7.2L, Hematocrit 23.4L , Mean Corpuscular Volume 83, Mean Corpuscular Hemoglobin 25.6L, Mean Corpuscular Hemoglobin Concent 30.9L, Red Cell Distribution Width 18.1H, Platelet Count 337, Mean Platelet Volume 4.1L, Neutrophils (%) (Auto) , Lymphocytes (%) (Auto) , Monocytes (%) (Auto) , Eosinophils (%) (Auto) , Basophils (%) (Auto) , Differential Total Cells Counted 100, Neutrophils % ( Manual) 66, Lymphocytes % (Manual) 24, Monocytes % (Manual) 9, Eosinophils % ( Manual) 1, Basophils % (Manual) 0, Band Neutrophils 0, Platelet Estimate Adequate, Platelet Morphology Normal, Hypochromasia 1+, Anisocytosis 1+, Sodium Level 138, Potassium Level 3.3L, Chloride Level 103, Carbon Dioxide Level 27, Anion Gap 8, Blood Urea Nitrogen 9, Creatinine 0.4L, Estimat Glomerular Filtration Rate > 60, Glucose Level 86, Calcium Level 8.0L Current Medications Medications (Trade) Dose Ordered Sig/Mya Route PRN Reason Start Time Stop Time Status Last Admin Dose Admin Acetaminophen (Tylenol) 650 mg Q4H PRN ORAL Mild Pain (Pain Scale 1-3) 10/23/19 17:30 11/22/19 17:29 10/26/19 03:17 Acetaminophen/ Hydrocodone Bitart ([place] 5/325) 1 tab Q4H PRN ORAL Moderate Pain (Pain Scale 4-6) 10/23/19 20:15 10/30/19 20:14 10/26/19 17:32 Acetaminophen/ Hydrocodone Bitart ([place] 5/325) 2 tab Q4H PRN ORAL Severe Pain (Pain Scale 7-10) 10/23/19 20:15 10/30/19 20:14 10/25/19 17:35 Albuterol/ Ipratropium (Albuterol/ Ipratropium) 3 ml Q6H PRN HHN Shortness of Breath 10/23/19 17:30 10/28/19 17:29 Ascorbic Acid (Vitamin C) 500 mg DAILY ORAL 10/24/19 09:00 11/23/19 08:59 10/26/19 08:56 Baclofen (Lioresal) 10 mg THREE TIMES A DAY ORAL 10/23/19 18:00 11/22/19 17:59 10/26/19 17:14 Chlorhexidine Gluconate (Simran-Hex 2%) 1 applic DAILY@2000 TOPIC 10/24/19 20:00 01/22/20 19:59 10/25/19 19:59 Clonazepam (KlonoPIN) 0.5 mg Q8HR ORAL 10/23/19 21:00 10/30/19 20:59 10/26/19 14:02 Dextrose (Dextrose 50%) 25 ml Q30M PRN IV Hypoglycemia 10/23/19 17:30 01/21/20 17:29 Dextrose (Dextrose 50%) 50 ml Q30M PRN IV Hypoglycemia 10/23/19 17:30 01/21/20 17:29 Diphenhydramine HCl (Benadryl) 25 mg Q6H PRN ORAL Itching/Pruritis 10/23/19 17:30 11/22/19 17:29 Docusate Sodium (Colace) 100 mg EVERY 12 HOURS ORAL 10/23/19 21:00 11/22/19 20:59 10/26/19 08:56 Dopamine HCl/ Dextrose 250 ml @ 0 mls/hr Q24H IV 10/24/19 06:15 01/22/20 06:14 10/26/19 06:32 Ferrous Sulfate (Feosol) 325 mg DAILY ORAL 10/24/19 09:00 01/22/20 08:59 10/26/19 08:56 Gabapentin (Neurontin) 400 mg Q8HR ORAL 10/23/19 22:00 11/22/19 21:59 10/26/19 14:02 Heparin Sodium (Porcine) (Heparin 5000 units/ml) 5,000 units EVERY 12 HOURS SUBQ 10/24/19 09:00 12/08/19 08:59 10/25/19 21:05 Meropenem 1 gm/ Sodium Chloride 100 ml @ 200 mls/hr Q8HR IVPB 10/23/19 22:00 10/28/19 21:59 10/26/19 14:03 Midodrine (Pro-Amatine) 10 mg THREE TIMES A DAY ORAL 10/23/19 18:00 01/21/20 17:59 10/26/19 17:14 Norepinephrine Bitartrate 250 ml @ 0 mls/hr Q24H IV 10/23/19 21:00 01/21/20 20:59 10/23/19 20:38 Ondansetron HCl (Zofran) 4 mg Q6H PRN IVP Nausea & Vomiting 10/23/19 17:30 11/22/19 17:29 Sodium Hypochlorite ([place] Strength) 1 applic DAILY TOPIC 10/25/19 09:00 11/24/19 08:59 10/26/19 08:57 Sodium Chloride 1,000 ml @ 150 mls/hr Q6H40M IV 10/26/19 11:27 11/25/19 11:26 10/26/19 11:37 Zinc Sulfate (Zinc Sulfate) 220 mg DAILY ORAL 10/24/19 09:00 01/22/20 08:59 10/26/19 08:56 Assessment/Plan Assessment/Plan IMPRESSION: 1. Septic shock. 2. Complicated UTI with history of previous ESBL infection. 3. Paraplegia. 4. Sacral decubitus. 5. half-way resident. DISCUSSION: PRN pressors. DVT and GI prophylaxes. ID consult noted. I will follow carefully. Ordered Oxygen, doing well on room air at this time. Haily Monzon Omar Syed MD Oct 26, 2019 17:48
[2019-10-26] MEDS: Dyna-Hex 2% Top Sol 2oz TOPIC SCH (19:42)
--- NOTE | 2019-10-26 19:43 | Surgery Progress Note ---
Surgery Progress Note Subjective Symptoms: improved, tolerating diet, passing flatus Objective Last 24 Hour Vital Signs Date Time Temp Pulse Resp B/P (MAP) Pulse Ox O2 Delivery O2 Flow Rate FiO2 10/26/19 18:01 114/65 10/26/19 18:00 71 22 111/63 (79) 99 10/26/19 17:30 73 20 119/63 (81) 99 10/26/19 17:00 85/60 10/26/19 17:00 78 16 85/60 (68) 10/26/19 16:00 Room Air 10/26/19 16:00 73 10/26/19 16:00 106/54 10/26/19 16:00 98.8 65 15 106/54 (71) 100 10/26/19 15:00 78 19 110/66 (81) 99 10/26/19 15:00 110/66 10/26/19 14:30 83 13 94/55 (68) 98 10/26/19 14:03 94/55 10/26/19 14:00 84 12 90/63 (72) 96 10/26/19 13:30 69 13 83/57 (66) 96 10/26/19 13:00 70 15 95/59 (71) 98 10/26/19 13:00 95/59 10/26/19 12:00 91/55 10/26/19 12:00 Room Air 10/26/19 12:00 70 10/26/19 12:00 98.4 63 12 91/55 (67) 98 10/26/19 11:00 74 13 110/73 (85) 97 10/26/19 11:00 110/73 10/26/19 10:00 125/69 10/26/19 10:00 59 12 125/69 (87) 98 10/26/19 09:30 74 16 103/58 (73) 98 10/26/19 09:00 77 15 89/59 (69) 91 10/26/19 09:00 89/59 10/26/19 08:30 88 14 89/57 (68) 98 10/26/19 08:00 88/46 10/26/19 08:00 82 15 88/46 (60) 98 10/26/19 08:00 78 10/26/19 08:00 Room Air 8/13/20 07:30 84 13 81/60 (67) 98 10/26/19 07:00 79/52 10/26/19 07:00 98.0 82 15 79/52 (61) 98 10/26/19 06:32 98/51 10/26/19 06:30 68 17 131/71 (91) 98 10/26/19 06:00 131/81 10/26/19 06:00 74 15 98/51 (67) 98 10/26/19 05:30 73 17 92/49 (63) 99 10/26/19 05:00 92/49 10/26/19 05:00 119 20 108/75 (86) 99 10/26/19 04:30 91 16 89/55 (66) 94 10/26/19 04:00 Room Air 10/26/19 04:00 89/55 10/26/19 04:00 99.0 80 20 96/53 (67) 98 10/26/19 04:00 98 10/26/19 03:30 75 19 102/65 (77) 98 10/26/19 03:00 73 19 93/54 (67) 100 10/26/19 03:00 102/65 10/26/19 02:30 72 20 90/55 (67) 100 10/26/19 02:00 90/55 10/26/19 02:00 79 17 105/60 (75) 100 10/26/19 01:30 78 20 88/58 (68) 100 10/26/19 01:00 88/58 10/26/19 01:00 76 19 88/62 (71) 100 10/26/19 00:30 76 17 123/70 (87) 99 10/26/19 00:00 98.8 70 17 106/54 (71) 98 10/26/19 00:00 123/70 10/26/19 00:00 Room Air 10/26/19 00:00 80 10/25/19 23:30 74 18 80/55 (63) 98 10/25/19 23:00 74 18 117/72 (87) 98 10/25/19 23:00 110/73 10/25/19 22:30 76 16 111/62 (78) 98 10/25/19 22:00 69 15 131/66 (87) 99 10/25/19 22:00 110/61 10/25/19 22:00 110/61 10/25/19 21:30 75 17 122/70 (87) 99 10/25/19 21:00 69 17 129/69 (89) 98 10/25/19 21:00 129/84 10/25/19 21:00 129/69 10/25/19 20:45 79 17 118/68 (85) 98 10/25/19 20:30 67 16 118/71 (87) 98 10/25/19 20:15 73 16 127/87 (100) 98 10/25/19 20:00 Room Air 10/25/19 20:00 127/87 10/25/19 20:00 79 10/25/19 20:00 99.0 74 16 122/69 (86) 98 10/25/19 19:45 71 17 106/64 (78) 98 I&O Intake and Output 10/25/19 10/26/19 19:00 07:00 Intake Total 2232.290 ml 2447.878 ml Output Total 2375 ml 2240 ml Balance -142.710 ml 207.878 ml Intake Oral 400 ml 430 ml IV Total 1832.290 ml 2017.878 ml Output Urine Total 2375 ml 2240 ml # Bowel Movements 1 Cardiovascular: RSR Respiratory: clear Abdomen: soft, non-tender, present bowel sounds Extremities: no tenderness, no cyanosis Laboratory Tests Test 10/26/19 08:30 10/26/19 09:20 Urine Color Pale yellow Urine Appearance Clear Urine pH 7 (4.5-8.0) Urine Specific [place] 1.005 (1.005-1.035) Urine Protein Negative (NEGATIVE) Urine Glucose (UA) Negative (NEGATIVE) Urine Ketones Negative (NEGATIVE) Urine Blood Negative (NEGATIVE) Urine Nitrite Negative (NEGATIVE) Urine Bilirubin Negative (NEGATIVE) Urine Urobilinogen Normal MG/DL (0.0-1.0) Urine Leukocyte Esterase Negative (NEGATIVE) Urine RBC 0 /HPF (0 - 0) Urine WBC 0-2 /HPF (0 - 0) Urine Squamous Epithelial Cells None /LPF (NONE/OCC) Urine Bacteria Occasional /HPF (NONE) Urine Osmolality 230 mOsm/kg (429-449) L Urine Random Sodium 81 mmol/L (20-110) Urine Creatinine 5.9 MG/DL (30.0-125.0) L White Blood Count 8.2 K/UL (4.8-10.8) Red Blood Count 2.83 M/UL (4.70-6.10) L Hemoglobin 7.2 G/DL (14.2-18.0) L Hematocrit 23.4 % (42.0-52.0) L Mean Corpuscular Volume 83 FL (80-99) Mean Corpuscular Hemoglobin 25.6 PG (27.0-31.0) L Mean Corpuscular Hemoglobin Concent 30.9 G/DL (32.0-36.0) L Red Cell Distribution Width 18.1 % (11.6-14.8) H Platelet Count 337 K/UL (150-450) Mean Platelet Volume 4.1 FL (6.5-10.1) L Neutrophils (%) (Auto) % (45.0-75.0) Lymphocytes (%) (Auto) % (20.0-45.0) Monocytes (%) (Auto) % (1.0-10.0) Eosinophils (%) (Auto) % (0.0-3.0) Basophils (%) (Auto) % (0.0-2.0) Differential Total Cells Counted 100 Neutrophils % (Manual) 66 % (45-75) Lymphocytes % (Manual) 24 % (20-45) Monocytes % (Manual) 9 % (1-10) Eosinophils % (Manual) 1 % (0-3) Basophils % (Manual) 0 % (0-2) Band Neutrophils 0 % (0-8) Platelet Estimate Adequate Platelet Morphology Normal Hypochromasia 1+ Anisocytosis 1+ Sodium Level 138 MMOL/L (136-145) Potassium Level 3.3 MMOL/L (3.5-5.1) L Chloride Level 103 MMOL/L (98-107) Carbon Dioxide Level 27 MMOL/L (21-32) Anion Gap 8 mmol/L (5-15) Blood Urea Nitrogen 9 mg/dL (7-18) Creatinine 0.4 MG/DL (0.55-1.30) L Estimat Glomerular Filtration Rate > 60 mL/min (>60) Glucose Level 86 MG/DL (74-106) Calcium Level 8.0 MG/DL (8.5-10.1) L Plan Problems: (1) Abdominal distension Assessment & Plan: abd distention soft non tender ostomy viable and reduced KUB ordered pending results (2) Anemia (3) Encephalopathy (4) Drug (multiple) resistant infection (5) Urinary tract infection in male (6) Hypokalemia (7) Femur fracture (8) Hyponatremia (9) Sepsis (10) UTI (urinary tract infection) (11) Hypotension (12) Vomiting (13) Left leg pain (14) Decubital ulcer Assessment & Plan: Pt presented on admission with multiple Pressure injuries.Colostomy abd okay mild distention, currently reduced Unstageable Pressure Injury R lumbar sacral area(L)2cm x (W)3.5cm.75% soft necrosis, 25% mixed erythema with slough at base of wound. Marginal erythema along borders and periwound. 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 Beefy red granulation at base of wound scattered areas of Biofilm. Sacral bone is palpable. Scattered areas of erythema along borders.Borders are irregular -an area of mixed soft necrosis and slough with marginal erythema extending away from wound noted at approx 2-3o"clock along borders(L)1.2cm x (W)3.3cm. No odor noted from Sacral wound. Small amt serosanguineous exudate noted. Full thickness stage 4 Pressure injury with undermined borders and tunneling R Ischium(L)7.5cm x (W)4.8cm x (D)1cm ,undermining clockwise 11-3 by 3.1cm @12o' clock,tunneling @5o'clock by 2.3cm. Beefy- red granulation with small amt Biofilm noted at base of wound. Marginal erythema along borders.Small amt serosanguineous exudate noted. No erythema or evidence of further skin breakdown periwound. Three small areas that are in cluster that are red and indurated . Noted to R Iliac(L)4cm x (W)1.5cm. Bony protrusion with erythema L trochanteric. Historical scar noted at L trochanter. Unstageable Pressure injury medial L Knee (L)2.6cm x (W)1.5cm. 100% yellow slough at base of wound. Marginal erythema along edges. Small amt singer coloured exudate. No odor noted. Unstageable Pressure injury medial R knee(L)1.8cm x (W)1.3cm. 100% slough at base of wound. Borders are macerated. Small amt singer coloured exudate noted. No erythema induration or fluctuance periwound. Loose dry scab R pre tibial(L)2cm x (W)0.9cm.smaller dry scab noted laterally R tibia(L)0.7cm x (W)0.6cm. Resolving Pressure injury Plantar L Heel(L)7cm x (W)4cm. Base of wound is 75% dry and pale in colour and bone is palpable when minimally palpated.Two small wounds within wound bed. At medial aspect of L heel is indurated purpl area with maroon borders(L)1.5cm x (W)1.4cm.At lateral aspect of plantar is unstageable Pressure injury. 50% soft necrosis ,50% surrounding maroon borders.No odor or exudate noted. Resolving Pressure injury R heel. Base of wound is 40% soft necrosis,60% pale pink. Edges are adherent to base of wound. No odor or exudate noted . Periwound heel is boggy but blanchable. Non-viable tissue on sacral wounds removed with curette by Dr. Salgado. Wounds are more viable.Each wounds cleansed with Saline. Therahoney applied to wound R lumbar Sacral area and covered with Optifoam drsg. Cavilon Skin Barrier applied to bony protrusion L trochanter and covered with Optifoam drsg. Cavilon Skin Barrier applied to Three areas on R iliac. Covered with Optifoam drsg. Placement of NPWT:Cavilon Skin Barrier applied to borders of both Sacral and R trochanteric wounds then lined with Transparent drape sheet. Additional skin prep and transparent drsg then bridged from R ischial wound to R pelvis . Granulofoam packings cut to conformed to shape and size of Sacral and R ischial wounds. Foam bridge created between Sacral and R Ischial wounds. Granulofoam bridge then created to R pelvis. Trac Pad placed at R pelvis. NPWT initiated at 125mm/Hg to continuous suction. Pt tolerated procedure. Wounds medial R and L knees cleansed with Saline. Therahoney applied to each wound respectively. Each wound covered with Optifoam drsgs.R and L Heel swabbed with Betadine and each heel covered with Optifoam drsgs. An APM/SUMI Mattress placed on pt's bed. Pt positioned with pillows and with both heels floated with pillow off mattress. Tx.Plan: Cleanse wounds Medial R and L knee and lumbar -sacral wounds with Saline.Apply Cavilon periwound. Cover each wound with Optifoam drsgs every 3 days and prn. Cleanse Sacral and R Ischial wounds with Saline. Apply Cavilon Skin Barrier along Borders of each wound. Place transparent drape sheet along borders of each wound and space between sacral and R ischium. Cut Granulofoam to size of each wound. Create Foam bridge between sacral and R ischial wound.Create second foam bridge from R Ischium to R Pelvis. Place Trac Pad at R Pelvis. NPWT to continuous suction at 125mm/Hg. Apply Betadine to R and L Heel wounds . Cover each heel with Optifoam drsg. Change every 3 days and prn. Cover dry scabs R tibia with Optifoam drsg. change every 3 days and prn. Reposition at least every 2hours or as tolerated. Off-load heels with pillow. Place pillow between knees. APM/SUMI Mattress overlay. (15) SEAN (acute kidney injury) (16) Ileostomy prolapse Assessment & Plan: currently reduced but abd distended pending films Cornelius Salgado Oct 26, 2019 19:43
[2019-10-26] MEDS: Norepinephrine 4mg/NS Premix 250 ML IV SCH (21:00)
[2019-10-27] VITALS (42 sets, daily range): BP systolic 69–141; BP diastolic 51–78
[2019-10-27] MEDS: DOPamine 400mg/250ml 250 ML IV SCH ×2 (04:35→12:32)
[2019-10-27 04:43] LABS: HEMATOCRIT 22.7 % (42.0-52.0); HEMOGLOBIN 7.1 G/DL (14.2-18.0); MEAN CORPUSCULAR VOLUME 82 FL (80-99); PLATELET COUNT 347 K/UL (150-450); RED BLOOD COUNT 2.79 M/UL (4.70-6.10); RED CELL DISTRIBUTION WIDTH 18.6 % (11.6-14.8); WHITE BLOOD COUNT 7.5 K/UL (4.8-10.8)
[2019-10-27 05:09] LABS: ANION GAP 7 mmol/L (5-15); BLOOD UREA NITROGEN 13 mg/dL (7-18); CALCIUM 8.3 MG/DL (8.5-10.1); CARBON DIOXIDE 29 MMOL/L (21-32); CHLORIDE 102 MMOL/L (98-107); CREATININE 0.5 MG/DL (0.55-1.30); PHOSPHORUS 3.2 MG/DL (2.5-4.9); POTASSIUM 3.1 MMOL/L (3.5-5.1); SODIUM 138 MMOL/L (136-145)
[2019-10-27] MEDS: clonazePAM 0.5mg tab ORAL SCH ×3 (05:48→21:36)
--- NOTE | 2019-10-27 07:01 | Consultation ---
History of Present Illness General Chief Complaint: General Complaint Reason for Consultation: Polyuria Present Illness Allergies: Coded Allergies: No Known Allergies (Unverified , 08/15/19) Medication History Scheduled Amino Acids/Protein Hydrolys (Pro-Stat Liquid), 30 ML ORAL THREE TIMES A DAY, ( Reported) Ascorbic Acid* (Ascorbic Acid*), 500 MG ORAL DAILY, (Reported) Baclofen* (Baclofen*), 10 MG ORAL THREE TIMES A DAY, (Reported) Clonazepam* (Klonopin*), 0.5 MG ORAL TID, (Reported) Cranberry Fruit (Cranberry), 450 MG PO DAILY, (Reported) Docusate Sodium* (Docusate Sodium*), 100 MG ORAL TWICE A DAY, (Reported) Ferrous Sulfate* (Ferrous Sulfate*), 325 MG ORAL DAILY, (Reported) Gabapentin* (Gabapentin*), 400 MG ORAL THREE TIMES A DAY, (Reported) Heparin Sod (Porcine) (Heparin Sodium*), 5,000 UNITS SUBQ EVERY 12 HOURS, ( Reported) Multivitamins* (Multivitamins*), 1 TAB ORAL DAILY, (Reported) Omeprazole (Omeprazole), 20 MG ORAL TWICE A DAY, (Reported) Scheduled PRN Acetaminophen* (Acetaminophen 325MG Tablet*), 650 MG ORAL Q6H PRN for pain/fever , (Reported) Acetaminophen* (Tylenol Extra Strength*), 500 MG ORAL DAILY PRN for pain management wound care, (Reported) Hydrocodone Bit/Acetaminophen 10-325* ([place] 10-325*), 1 TAB ORAL Q6H PRN for For Pain, (Reported) Magnesium Hydroxide* (Milk Of Magnesia*), 30 ML ORAL DAILY PRN for Constipation, (Reported) Tramadol Hcl* (Ultram*), 50 MG ORAL Q6H PRN for For Pain, (Reported) Discontinued Medications Midodrine* (Proamatine*), 10 MG ORAL THREE TIMES A DAY, (Reported) Discontinued Reason: Therapy completed Zinc Sulfate (Zinc Sulfate*), 220 MG ORAL DAILY, (Reported) Discontinued Reason: Therapy completed Patient History Healthcare decision maker Resuscitation status Advanced Directive on File Physical Exam Last 24 Hour Vital Signs Date Time Temp Pulse Resp B/P (MAP) Pulse Ox O2 Delivery O2 Flow Rate FiO2 10/27/19 06:30 86 20 104/62 (76) 96 8/14/20 06:00 87 17 129/64 (85) 99 10/27/19 05:30 74 23 114/64 (81) 100 10/27/19 05:00 75 22 139/68 (91) 100 10/27/19 04:35 113/71 10/27/19 04:30 70 18 113/71 (85) 98 10/27/19 04:00 98.8 78 22 122/71 (88) 99 10/27/19 04:00 73 10/27/19 04:00 Room Air 10/27/19 03:35 89 19 86/61 (69) 96 10/27/19 03:30 94 24 69/51 (57) 97 10/27/19 03:00 85 17 114/68 (83) 95 10/27/19 02:30 74 14 99/58 (72) 96 10/27/19 02:00 119 16 98/56 (70) 94 10/27/19 01:30 97 16 121/69 (86) 93 10/27/19 01:00 121/69 10/27/19 01:00 83 17 102/65 (77) 96 10/27/19 00:30 84 18 79/53 (62) 95 10/27/19 00:00 Room Air 10/27/19 00:00 98.8 79 15 93/57 (69) 87 10/27/19 00:00 79/53 10/26/19 23:33 84 14 106/67 (80) 83 10/26/19 23:30 85 15 100/50 (67) 79 10/26/19 23:00 91 18 94/42 (59) 94 10/26/19 23:00 94/42 10/26/19 22:30 83 15 91/56 (68) 92 10/26/19 22:00 81 17 91/56 (68) 89 10/26/19 22:00 91/56 10/26/19 21:30 100 23 104/62 (76) 99 10/26/19 21:00 81 19 105/60 (75) 99 10/26/19 21:00 93/53 10/26/19 21:00 105/60 10/26/19 20:30 76 19 104/60 (75) 99 10/26/19 20:00 78 10/26/19 20:00 104/60 10/26/19 20:00 99.0 73 18 105/63 (77) 99 10/26/19 20:00 Room Air 10/26/19 19:30 83 21 110/60 (77) 96 10/26/19 19:00 110/68 10/26/19 18:01 114/65 10/26/19 18:00 71 22 111/63 (79) 99 10/26/19 17:30 73 20 119/63 (81) 99 10/26/19 17:00 85/60 10/26/19 17:00 78 16 85/60 (68) 10/26/19 16:00 Room Air 10/26/19 16:00 73 10/26/19 16:00 106/54 10/26/19 16:00 98.8 65 15 106/54 (71) 100 10/26/19 15:00 78 19 110/66 (81) 99 10/26/19 15:00 110/66 10/26/19 14:30 83 13 94/55 (68) 98 10/26/19 14:03 94/55 10/26/19 14:00 84 12 90/63 (72) 96 10/26/19 13:30 69 13 83/57 (66) 96 10/26/19 13:00 70 15 95/59 (71) 98 10/26/19 13:00 95/59 10/26/19 12:00 91/55 10/26/19 12:00 Room Air 10/26/19 12:00 70 10/26/19 12:00 98.4 63 12 91/55 (67) 98 10/26/19 11:00 74 13 110/73 (85) 97 10/26/19 11:00 110/73 10/26/19 10:00 125/69 10/26/19 10:00 59 12 125/69 (87) 98 10/26/19 09:30 74 16 103/58 (73) 98 10/26/19 09:00 77 15 89/59 (69) 91 10/26/19 09:00 89/59 10/26/19 08:30 88 14 89/57 (68) 98 10/26/19 08:00 88/46 10/26/19 08:00 82 15 88/46 (60) 98 8/13/20 08:00 78 10/26/19 08:00 Room Air 10/26/19 07:30 84 13 81/60 (67) 98 Intake and Output 10/26/19 10/27/19 19:00 07:00 Intake Total 2292.880 ml 1467.868 ml Output Total 1955 ml 2120 ml Balance 337.880 ml -652.132 ml Intake Oral 250 ml 280 ml IV Total 2042.880 ml 1067.868 ml Other 120 ml Output Urine Total 1955 ml 2120 ml # Bowel Movements 1 4 Laboratory Tests Test 10/26/19 08:30 10/26/19 09:20 10/27/19 03:30 Urine Color Pale yellow Urine Appearance Clear Urine pH 7 (4.5-8.0) Urine Specific [place] 1.005 (1.005-1.035) Urine Protein Negative (NEGATIVE) Urine Glucose (UA) Negative (NEGATIVE) Urine Ketones Negative (NEGATIVE) Urine Blood Negative (NEGATIVE) Urine Nitrite Negative (NEGATIVE) Urine Bilirubin Negative (NEGATIVE) Urine Urobilinogen Normal MG/DL (0.0-1.0) Urine Leukocyte Esterase Negative (NEGATIVE) Urine RBC 0 /HPF (0 - 0) Urine WBC 0-2 /HPF (0 - 0) Urine Squamous Epithelial Cells None /LPF (NONE/OCC) Urine Bacteria Occasional /HPF (NONE) Urine Osmolality 230 mOsm/kg (429-449) L Urine Random Sodium 81 mmol/L (20-110) Urine Creatinine 5.9 MG/DL (30.0-125.0) L White Blood Count 8.2 K/UL (4.8-10.8) 7.5 K/UL (4.8-10.8) Red Blood Count 2.83 M/UL (4.70-6.10) L 2.79 M/UL (4.70-6.10) L Hemoglobin 7.2 G/DL (14.2-18.0) L 7.1 G/DL (14.2-18.0) L Hematocrit 23.4 % (42.0-52.0) L 22.7 % (42.0-52.0) L Mean Corpuscular Volume 83 FL (80-99) 82 FL (80-99) Mean Corpuscular Hemoglobin 25.6 PG (27.0-31.0) L 25.6 PG (27.0-31.0) L Mean Corpuscular Hemoglobin Concent 30.9 G/DL (32.0-36.0) L 31.4 G/DL (32.0-36.0) L Red Cell Distribution Width 18.1 % (11.6-14.8) H 18.6 % (11.6-14.8) H Platelet Count 337 K/UL (150-450) 347 K/UL (150-450) Mean Platelet Volume 4.1 FL (6.5-10.1) L 4.7 FL (6.5-10.1) L Neutrophils (%) (Auto) % (45.0-75.0) % (45.0-75.0) Lymphocytes (%) (Auto) % (20.0-45.0) % (20.0-45.0) Monocytes (%) (Auto) % (1.0-10.0) % (1.0-10.0) Eosinophils (%) (Auto) % (0.0-3.0) % (0.0-3.0) Basophils (%) (Auto) % (0.0-2.0) % (0.0-2.0) Differential Total Cells Counted 100 Neutrophils % (Manual) 66 % (45-75) Lymphocytes % (Manual) 24 % (20-45) Monocytes % (Manual) 9 % (1-10) Eosinophils % (Manual) 1 % (0-3) Basophils % (Manual) 0 % (0-2) Band Neutrophils 0 % (0-8) Platelet Estimate Adequate Platelet Morphology Normal Hypochromasia 1+ Anisocytosis 1+ Sodium Level 138 MMOL/L (136-145) 138 MMOL/L (136-145) Potassium Level 3.3 MMOL/L (3.5-5.1) L 3.1 MMOL/L (3.5-5.1) L Chloride Level 103 MMOL/L (98-107) 102 MMOL/L (98-107) Carbon Dioxide Level 27 MMOL/L (21-32) 29 MMOL/L (21-32) Anion Gap 8 mmol/L (5-15) 7 mmol/L (5-15) Blood Urea Nitrogen 9 mg/dL (7-18) 13 mg/dL (7-18) Creatinine 0.4 MG/DL (0.55-1.30) L 0.5 MG/DL (0.55-1.30) L Estimat Glomerular Filtration Rate > 60 mL/min (>60) > 60 mL/min (>60) Glucose Level 86 MG/DL (74-106) 109 MG/DL (74-106) H Calcium Level 8.0 MG/DL (8.5-10.1) L 8.3 MG/DL (8.5-10.1) L Phosphorus Level 3.2 MG/DL (2.5-4.9) Magnesium Level 1.3 MG/DL (1.8-2.4) L Height (Feet): 5 Height (Inches): 7.00 Weight (Pounds): 109 Medications Current Medications Medications (Trade) Dose Ordered Sig/Mya Route PRN Reason Start Time Stop Time Status Last Admin Dose Admin Acetaminophen (Tylenol) 650 mg Q4H PRN ORAL Mild Pain (Pain Scale 1-3) 10/23/19 17:30 11/22/19 17:29 10/26/19 19:43 Acetaminophen/ Hydrocodone Bitart ([place] 5/325) 1 tab Q4H PRN ORAL Moderate Pain (Pain Scale 4-6) 10/23/19 20:15 10/30/19 20:14 10/26/19 17:32 Acetaminophen/ Hydrocodone Bitart ([place] 5/325) 2 tab Q4H PRN ORAL Severe Pain (Pain Scale 7-10) 10/23/19 20:15 10/30/19 20:14 10/25/19 17:35 Albuterol/ Ipratropium (Albuterol/ Ipratropium) 3 ml Q6H PRN HHN Shortness of Breath 10/23/19 17:30 10/28/19 17:29 Ascorbic Acid (Vitamin C) 500 mg DAILY ORAL 10/24/19 09:00 11/23/19 08:59 10/26/19 08:56 Baclofen (Lioresal) 10 mg THREE TIMES A DAY ORAL 10/23/19 18:00 11/22/19 17:59 10/26/19 17:14 Chlorhexidine Gluconate (Simran-Hex 2%) 1 applic DAILY@1999 TOPIC 10/24/19 20:00 01/22/20 19:59 10/26/19 19:42 Clonazepam (KlonoPIN) 0.5 mg Q8HR ORAL 10/23/19 21:00 10/30/19 20:59 10/27/19 05:48 Dextrose (Dextrose 50%) 25 ml Q30M PRN IV Hypoglycemia 10/23/19 17:30 01/21/20 17:29 Dextrose (Dextrose 50%) 50 ml Q30M PRN IV Hypoglycemia 10/23/19 17:30 01/21/20 17:29 Diphenhydramine HCl (Benadryl) 25 mg Q6H PRN ORAL Itching/Pruritis 10/23/19 17:30 11/22/19 17:29 Docusate Sodium (Colace) 100 mg EVERY 12 HOURS ORAL 10/23/19 21:00 11/22/19 20:59 10/26/19 20:48 Dopamine HCl/ Dextrose 250 ml @ 0 mls/hr Q24H IV 10/24/19 06:15 01/22/20 06:14 10/27/19 04:35 Ferrous Sulfate (Feosol) 325 mg DAILY ORAL 10/24/19 09:00 01/22/20 08:59 10/26/19 08:56 Gabapentin (Neurontin) 400 mg Q8HR ORAL 10/23/19 22:00 11/22/19 21:59 10/27/19 05:48 Heparin Sodium (Porcine) (Heparin 5000 units/ml) 5,000 units EVERY 12 HOURS SUBQ 10/24/19 09:00 12/08/19 08:59 10/26/19 20:49 Meropenem 1 gm/ Sodium Chloride 100 ml @ 200 mls/hr Q8HR IVPB 10/23/19 22:00 10/28/19 21:59 10/27/19 05:48 Midodrine (Pro-Amatine) 10 mg THREE TIMES A DAY ORAL 10/23/19 18:00 01/21/20 17:59 10/26/19 17:14 Norepinephrine Bitartrate 250 ml @ 0 mls/hr Q24H IV 10/23/19 21:00 01/21/20 20:59 10/23/19 20:38 Ondansetron HCl (Zofran) 4 mg Q6H PRN IVP Nausea & Vomiting 10/23/19 17:30 11/22/19 17:29 Sodium Hypochlorite ([place] Strength) 1 applic DAILY TOPIC 10/25/19 09:00 11/24/19 08:59 10/26/19 08:57 Sodium Chloride 1,000 ml @ 150 mls/hr Q6H40M IV 10/26/19 11:27 11/25/19 11:26 10/27/19 04:35 Zinc Sulfate (Zinc Sulfate) 220 mg DAILY ORAL 10/24/19 09:00 01/22/20 08:59 10/26/19 08:56 Assessment/Plan Assessment/Plan: Hematology Consultation REQ MD: Katty Marx DOS 10.27.2019 RFC: Anemia, worsening HPI 59-year-old male with past medical history of paraplegia, sacral decubitus ulcer , anemia, hypertension, ESBL multidrug-resistant urinary tract infection sent from senior care facility by ambulance for hypotension, general weakness and confusion. In ED he was noted to be altered with mild hypotension with SBP in 90s, lactate 2.0, UA with mild pyuria. Patient was to be admitted to tele but was upgraded to MICU due to persistent hypotension and bradycardia to 44, started on Levophed and dopamine, currently is in the icu, on abx as needed, per id Coded Allergies: No Known Allergies (Unverified , 08/15/19) Medication History Scheduled Amino Acids/Protein Hydrolys (Pro-Stat Liquid), 30 ML ORAL THREE TIMES A DAY, ( Reported) Ascorbic Acid* (Ascorbic Acid*), 500 MG ORAL DAILY, (Reported) Baclofen* (Baclofen*), 10 MG ORAL THREE TIMES A DAY, (Reported) Clonazepam* (Klonopin*), 0.5 MG ORAL TID, (Reported) Cranberry Fruit (Cranberry), 450 MG PO DAILY, (Reported) Docusate Sodium* (Docusate Sodium*), 100 MG ORAL TWICE A DAY, (Reported) Ferrous Sulfate* (Ferrous Sulfate*), 325 MG ORAL DAILY, (Reported) Gabapentin* (Gabapentin*), 400 MG ORAL THREE TIMES A DAY, (Reported) Heparin Sod (Porcine) (Heparin Sodium*), 5,000 UNITS SUBQ EVERY 12 HOURS, ( Reported) Multivitamins* (Multivitamins*), 1 TAB ORAL DAILY, (Reported) Omeprazole (Omeprazole), 20 MG ORAL TWICE A DAY, (Reported) Scheduled PRN Acetaminophen* (Acetaminophen 325MG Tablet*), 650 MG ORAL Q6H PRN for pain/fever , (Reported) Acetaminophen* (Tylenol Extra Strength*), 500 MG ORAL DAILY PRN for pain management wound care, (Reported) Hydrocodone Bit/Acetaminophen 10-325* ([place] 10-325*), 1 TAB ORAL Q6H PRN for For Pain, (Reported) Magnesium Hydroxide* (Milk Of Magnesia*), 30 ML ORAL DAILY PRN for Constipation , (Reported) Tramadol Hcl* (Ultram*), 50 MG ORAL Q6H PRN for For Pain, (Reported) Discontinued Medications Midodrine* (Proamatine*), 10 MG ORAL THREE TIMES A DAY, (Reported) Discontinued Reason: Therapy completed Zinc Sulfate (Zinc Sulfate*), 220 MG ORAL DAILY, (Reported) Discontinued Reason: Therapy completed Patient History Healthcare decision maker Resuscitation status Advanced Directive on File Review of Systems All Other Systems: negative except mentioned in HPI Physical Exam General Appearance: lethargic Lines, tubes and drains: peripheral, central line HEENT: normocephalic Neck: non-tender, normal alignment Respiratory/Chest: lungs clear Cardiovascular/Chest: normal peripheral pulses, normal rate, regular rhythm Abdomen: normal bowel sounds, non tender Labs noted Imaging reviewed Assessment/recs # Anemia rule out gi bleed, as well as iron deficiency --> hgb 8.2-->7.2-->7.1 --> anemia panel ordered --> occult blood pending --> gi eval prn --> transfuse as needed # Coagulopathy with elev ptt/inr --> vitk and ffp as needed --> no bleeding noted at this time # Hypotension likely due to septic shock. Was diuresing heavily at 300 mL an hour. --> Continue Midodrine and dopamine. --> initially on IV antibiotic with vancomycin and meropenem and amikacin-->christel --> in icu, is on dopamine, pressor --> as per cards # Bradycardia. Continue dopamine. --> cards # Paraplegia. # Urinary tract infection, followed by Dr. Painting on broad-spectrum IV antibiotic. # Decubitus ulcers with sacral decubitus. # Dvt heparin sq Appreciate consultation and dw TANJA Capps,Martínez L. MD Oct 27, 2019 07:01
--- NOTE | 2019-10-27 07:58 | General Progress Note ---
Assessment/Plan Assessment/Plan: '59 year old man who presents from LVT with weakness, encephalopathy, concern for septic shock, possible from UTI vs infected sacral pressure ulcer #Septic shock #Proteus UTI #Acute metabolic encephalopathy #Paraplegia #Sacral pressure ulcer, present on admit -continue ICU care -Wean off vasopressors -off vanco and amikacin, continue meropenem -Spoke with surgery, sacral pressure ulcer does not appear to be infected -Local wound care and offloading #Sinus Bradycardia to 44 -continue telemetry -EP following #Hypokalemia -replace with KCl 40 mEq #Anemia, acute on chronic -monitor H&H -Hematology following VTE PPx HSQ Full Code I spent 75 minutes on this patient's case, and 38 mins was dedicated to critical care Critical Care Services performed include: Telemetry Review Hemodynamic measurement interpretation Laboratory data review and interpretation Radiology image review and interpretation Discussion of patient's care with ICU team, ICU Nursing staff and/or consulting services Subjective Date patient seen: Oct 27, 2019 Time patient seen: 07:11 ROS Limited/Unobtainable: Yes Cardiovascular: Denies: chest pain Respiratory: Denies: shortness of breath Gastrointestinal/Abdominal: Denies: abdominal pain Allergies: Coded Allergies: No Known Allergies (Unverified , 08/15/19) Subjective Follow up for septic shock, UTI acute metabolic encephalopathy Patient remains on dopamine K is 3.1, Hb 7.1 No acute issues overnight Objective Last 24 Hour Vital Signs Date Time Temp Pulse Resp B/P (MAP) Pulse Ox O2 Delivery O2 Flow Rate FiO2 10/27/19 06:30 86 20 104/62 (76) 96 10/27/19 06:00 104/62 10/27/19 06:00 87 17 129/64 (85) 99 10/27/19 05:30 74 23 114/64 (81) 100 10/27/19 05:00 114/64 10/27/19 05:00 75 22 139/68 (91) 100 10/27/19 04:35 113/71 10/27/19 04:30 70 18 113/71 (85) 98 10/27/19 04:00 98.8 78 22 122/71 (88) 99 10/27/19 04:00 73 10/27/19 04:00 Room Air 10/27/19 03:35 89 19 86/61 (69) 96 10/27/19 03:30 94 24 69/51 (57) 97 10/27/19 03:00 69/51 10/27/19 03:00 85 17 114/68 (83) 95 10/27/19 02:30 74 14 99/58 (72) 96 10/27/19 02:00 119 16 98/56 (70) 94 10/27/19 02:00 99/58 10/27/19 01:30 97 16 121/69 (86) 93 10/27/19 01:00 121/69 10/27/19 01:00 83 17 102/65 (77) 96 10/27/19 00:30 84 18 79/53 (62) 95 10/27/19 00:00 Room Air 10/27/19 00:00 98.8 79 15 93/57 (69) 87 10/27/19 00:00 79/53 10/26/19 23:33 84 14 106/67 (80) 83 10/26/19 23:30 85 15 100/50 (67) 79 10/26/19 23:00 91 18 94/42 (59) 94 10/26/19 23:00 94/42 10/26/19 22:30 83 15 91/56 (68) 92 10/26/19 22:00 81 17 91/56 (68) 89 10/26/19 22:00 91/56 10/26/19 21:30 100 23 104/62 (76) 99 10/26/19 21:00 81 19 105/60 (75) 99 10/26/19 21:00 93/53 10/26/19 21:00 105/60 10/26/19 20:30 76 19 104/60 (75) 99 10/26/19 20:00 78 10/26/19 20:00 104/60 10/26/19 20:00 99.0 73 18 105/63 (77) 99 10/26/19 20:00 Room Air 10/26/19 19:30 83 21 110/60 (77) 96 10/26/19 19:00 110/68 10/26/19 18:01 114/65 10/26/19 18:00 71 22 111/63 (79) 99 10/26/19 17:30 73 20 119/63 (81) 99 10/26/19 17:00 85/60 8/13/20 17:00 78 16 85/60 (68) 10/26/19 16:00 Room Air 10/26/19 16:00 73 10/26/19 16:00 106/54 10/26/19 16:00 98.8 65 15 106/54 (71) 100 10/26/19 15:00 78 19 110/66 (81) 99 10/26/19 15:00 110/66 10/26/19 14:30 83 13 94/55 (68) 98 10/26/19 14:03 94/55 10/26/19 14:00 84 12 90/63 (72) 96 10/26/19 13:30 69 13 83/57 (66) 96 10/26/19 13:00 70 15 95/59 (71) 98 10/26/19 13:00 95/59 10/26/19 12:00 91/55 10/26/19 12:00 Room Air 10/26/19 12:00 70 10/26/19 12:00 98.4 63 12 91/55 (67) 98 10/26/19 11:00 74 13 110/73 (85) 97 10/26/19 11:00 110/73 10/26/19 10:00 125/69 10/26/19 10:00 59 12 125/69 (87) 98 10/26/19 09:30 74 16 103/58 (73) 98 10/26/19 09:00 77 15 89/59 (69) 91 10/26/19 09:00 89/59 10/26/19 08:30 88 14 89/57 (68) 98 10/26/19 08:00 88/46 10/26/19 08:00 82 15 88/46 (60) 98 10/26/19 08:00 78 10/26/19 08:00 Room Air Intake and Output 10/26/19 10/27/19 19:00 07:00 Intake Total 2292.880 ml 2275.020 ml Output Total 1955 ml 2320 ml Balance 337.880 ml -44.980 ml Intake Oral 250 ml 280 ml IV Total 2042.880 ml 1875.020 ml Other 120 ml Output Urine Total 1955 ml 2320 ml # Bowel Movements 1 4 Laboratory Tests 10/26/19 08:30: Urine Color Pale yellow, Urine Appearance Clear, Urine pH 7, Urine Specific [place] 1.005, Urine Protein Negative, Urine Glucose (UA) Negative, Urine Ketones Negative, Urine Blood Negative, Urine Nitrite Negative, Urine Bilirubin Negative, Urine Urobilinogen Normal, Urine Leukocyte Esterase Negative, Urine RBC 0, Urine WBC 0-2, Urine Squamous Epithelial Cells None, Urine Bacteria Occasional, Urine Osmolality 230L, Urine Random Sodium 81, Urine Creatinine 5.9L 10/26/19 09:20: White Blood Count 8.2, Red Blood Count 2.83L, Hemoglobin 7.2L, Hematocrit 23.4L , Mean Corpuscular Volume 83, Mean Corpuscular Hemoglobin 25.6L, Mean Corpuscular Hemoglobin Concent 30.9L, Red Cell Distribution Width 18.1H, Platelet Count 337, Mean Platelet Volume 4.1L, Neutrophils (%) (Auto) , Lymphocytes (%) (Auto) , Monocytes (%) (Auto) , Eosinophils (%) (Auto) , Basophils (%) (Auto) , Differential Total Cells Counted 100, Neutrophils % ( Manual) 66, Lymphocytes % (Manual) 24, Monocytes % (Manual) 9, Eosinophils % ( Manual) 1, Basophils % (Manual) 0, Band Neutrophils 0, Platelet Estimate Adequate, Platelet Morphology Normal, Hypochromasia 1+, Anisocytosis 1+, Sodium Level 138, Potassium Level 3.3L, Chloride Level 103, Carbon Dioxide Level 27, Anion Gap 8, Blood Urea Nitrogen 9, Creatinine 0.4L, Estimat Glomerular Filtration Rate > 60, Glucose Level 86, Calcium Level 8.0L 10/27/19 03:30: White Blood Count 7.5, Red Blood Count 2.79L, Hemoglobin 7.1L, Hematocrit 22.7L , Mean Corpuscular Volume 82, Mean Corpuscular Hemoglobin 25.6L, Mean Corpuscular Hemoglobin Concent 31.4L, Red Cell Distribution Width 18.6H, Platelet Count 347, Mean Platelet Volume 4.7L, Neutrophils (%) (Auto) , Lymphocytes (%) (Auto) , Monocytes (%) (Auto) , Eosinophils (%) (Auto) , Basophils (%) (Auto) , Sodium Level 138, Potassium Level 3.1L, Chloride Level 102, Carbon Dioxide Level 29, Anion Gap 7, Blood Urea Nitrogen 13, Creatinine 0.5L, Estimat Glomerular Filtration Rate > 60, Glucose Level 109H, Calcium Level 8.3L, Phosphorus Level 3.2, Magnesium Level 1.3L Height (Feet): 5 Height (Inches): 7.00 Weight (Pounds): 109 General Appearance: no apparent distress, alert Neck: normal alignment, supple Cardiovascular: normal rate, regular rhythm Respiratory/Chest: lungs clear, normal breath sounds Abdomen: non tender, soft John Tejada MD Oct 27, 2019 07:58
--- NOTE | 2019-10-27 08:51 | Cardiac Electrophysiology PN ---
Assessment/Plan Assessment/Plan 1. Septic shock. Still diuresing heavily On Midodrine and dopamine. On IV antibiotic DW nephrology. Change Dopamine to Levophed as it potentially may cause diuresis 2. Bradycardia. Resolved. DC dopamine. 3. Paraplegia. 4. Urinary tract infection, followed by Dr. Painting on broad-spectrum IV antibiotic. 5. Decubitus ulcers with sacral decubitus. 6. S/P Ileostomy/ 7. Polyuria, DI vs DOpamine effect. Got DDAVP. Change Dopamine to Levophed as it potentially may cause diuresis DFW DR Lynch Subjective Subjective Alert in NAD in ICU. On Dopamine 8 Mcg and Midodrine. RN at bedside Objective Last 24 Hour Vital Signs Date Time Temp Pulse Resp B/P (MAP) Pulse Ox O2 Delivery O2 Flow Rate FiO2 10/27/19 06:30 86 20 104/62 (76) 96 10/27/19 06:00 104/62 10/27/19 06:00 87 17 129/64 (85) 99 10/27/19 05:30 74 23 114/64 (81) 100 10/27/19 05:00 114/64 10/27/19 05:00 75 22 139/68 (91) 100 10/27/19 04:35 113/71 10/27/19 04:30 70 18 113/71 (85) 98 10/27/19 04:00 98.8 78 22 122/71 (88) 99 10/27/19 04:00 73 10/27/19 04:00 Room Air 10/27/19 03:35 89 19 86/61 (69) 96 10/27/19 03:30 94 24 69/51 (57) 97 10/27/19 03:00 69/51 10/27/19 03:00 85 17 114/68 (83) 95 10/27/19 02:30 74 14 99/58 (72) 96 10/27/19 02:00 119 16 98/56 (70) 94 10/27/19 02:00 99/58 10/27/19 01:30 97 16 121/69 (86) 93 10/27/19 01:00 121/69 10/27/19 01:00 83 17 102/65 (77) 96 10/27/19 00:30 84 18 79/53 (62) 95 10/27/19 00:00 Room Air 10/27/19 00:00 98.8 79 15 93/57 (69) 87 10/27/19 00:00 79/53 10/26/19 23:33 84 14 106/67 (80) 83 10/26/19 23:30 85 15 100/50 (67) 79 10/26/19 23:00 91 18 94/42 (59) 94 10/26/19 23:00 94/42 10/26/19 22:30 83 15 91/56 (68) 92 10/26/19 22:00 81 17 91/56 (68) 89 10/26/19 22:00 91/56 10/26/19 21:30 100 23 104/62 (76) 99 10/26/19 21:00 81 19 105/60 (75) 99 10/26/19 21:00 93/53 10/26/19 21:00 105/60 10/26/19 20:30 76 19 104/60 (75) 99 10/26/19 20:00 78 10/26/19 20:00 104/60 10/26/19 20:00 99.0 73 18 105/63 (77) 99 10/26/19 20:00 Room Air 10/26/19 19:30 83 21 110/60 (77) 96 10/26/19 19:00 110/68 10/26/19 18:01 114/65 10/26/19 18:00 71 22 111/63 (79) 99 10/26/19 17:30 73 20 119/63 (81) 99 10/26/19 17:00 85/60 10/26/19 17:00 78 16 85/60 (68) 10/26/19 16:00 Room Air 10/26/19 16:00 73 10/26/19 16:00 106/54 10/26/19 16:00 98.8 65 15 106/54 (71) 100 10/26/19 15:00 78 19 110/66 (81) 99 10/26/19 15:00 110/66 10/26/19 14:30 83 13 94/55 (68) 98 10/26/19 14:03 94/55 10/26/19 14:00 84 12 90/63 (72) 96 10/26/19 13:30 69 13 83/57 (66) 96 10/26/19 13:00 70 15 95/59 (71) 98 10/26/19 13:00 95/59 10/26/19 12:00 91/55 10/26/19 12:00 Room Air 10/26/19 12:00 70 10/26/19 12:00 98.4 63 12 91/55 (67) 98 10/26/19 11:00 74 13 110/73 (85) 97 10/26/19 11:00 110/73 10/26/19 10:00 125/69 10/26/19 10:00 59 12 125/69 (87) 98 10/26/19 09:30 74 16 103/58 (73) 98 10/26/19 09:00 77 15 89/59 (69) 91 10/26/19 09:00 89/59 Intake and Output 10/26/19 10/27/19 19:00 07:00 Intake Total 2292.880 ml 2275.020 ml Output Total 1955 ml 2320 ml Balance 337.880 ml -44.980 ml Intake Oral 250 ml 280 ml IV Total 2042.880 ml 1875.020 ml Other 120 ml Output Urine Total 1955 ml 2320 ml # Bowel Movements 1 4 Laboratory Tests Test 10/26/19 09:20 10/27/19 03:30 White Blood Count 8.2 K/UL (4.8-10.8) 7.5 K/UL (4.8-10.8) Red Blood Count 2.83 M/UL (4.70-6.10) L 2.79 M/UL (4.70-6.10) L Hemoglobin 7.2 G/DL (14.2-18.0) L 7.1 G/DL (14.2-18.0) L Hematocrit 23.4 % (42.0-52.0) L 22.7 % (42.0-52.0) L Mean Corpuscular Volume 83 FL (80-99) 82 FL (80-99) Mean Corpuscular Hemoglobin 25.6 PG (27.0-31.0) L 25.6 PG (27.0-31.0) L Mean Corpuscular Hemoglobin Concent 30.9 G/DL (32.0-36.0) L 31.4 G/DL (32.0-36.0) L Red Cell Distribution Width 18.1 % (11.6-14.8) H 18.6 % (11.6-14.8) H Platelet Count 337 K/UL (150-450) 347 K/UL (150-450) Mean Platelet Volume 4.1 FL (6.5-10.1) L 4.7 FL (6.5-10.1) L Neutrophils (%) (Auto) % (45.0-75.0) % (45.0-75.0) Lymphocytes (%) (Auto) % (20.0-45.0) % (20.0-45.0) Monocytes (%) (Auto) % (1.0-10.0) % (1.0-10.0) Eosinophils (%) (Auto) % (0.0-3.0) % (0.0-3.0) Basophils (%) (Auto) % (0.0-2.0) % (0.0-2.0) Differential Total Cells Counted 100 Neutrophils % (Manual) 66 % (45-75) Lymphocytes % (Manual) 24 % (20-45) Monocytes % (Manual) 9 % (1-10) Eosinophils % (Manual) 1 % (0-3) Basophils % (Manual) 0 % (0-2) Band Neutrophils 0 % (0-8) Platelet Estimate Adequate Platelet Morphology Normal Hypochromasia 1+ Anisocytosis 1+ Sodium Level 138 MMOL/L (136-145) 138 MMOL/L (136-145) Potassium Level 3.3 MMOL/L (3.5-5.1) L 3.1 MMOL/L (3.5-5.1) L Chloride Level 103 MMOL/L (98-107) 102 MMOL/L (98-107) Carbon Dioxide Level 27 MMOL/L (21-32) 29 MMOL/L (21-32) Anion Gap 8 mmol/L (5-15) 7 mmol/L (5-15) Blood Urea Nitrogen 9 mg/dL (7-18) 13 mg/dL (7-18) Creatinine 0.4 MG/DL (0.55-1.30) L 0.5 MG/DL (0.55-1.30) L Estimat Glomerular Filtration Rate > 60 mL/min (>60) > 60 mL/min (>60) Glucose Level 86 MG/DL (74-106) 109 MG/DL (74-106) H Calcium Level 8.0 MG/DL (8.5-10.1) L 8.3 MG/DL (8.5-10.1) L Phosphorus Level 3.2 MG/DL (2.5-4.9) Magnesium Level 1.3 MG/DL (1.8-2.4) L Objective HEAD AND NECK: Showed no JVD. LUNGS: Coarse rhonchi. CARDIOVASCULAR: Shows regular S1 and S2 with no gallop. ABDOMEN: Soft.S/P Ileostomy EXTREMITIES: No pitting edema, however, has pressure ulcers. Carloz Estes MD Oct 27, 2019 08:51
[2019-10-27] MEDS: Ascorbic Acid 500mg tab ORAL SCH (08:59)
[2019-10-27] MEDS: Docusate 100mg cap ORAL SCH ×2 (08:59→20:00)
[2019-10-27] MEDS: Zinc Sulfate 220mg ORAL SCH (08:59)
[2019-10-27] MEDS: Midodrine 10mg tab ORAL SCH ×3 (08:59→17:57)
[2019-10-27] MEDS: Heparin 5000 units/ml inj SUBQ SCH ×2 (09:02→20:00)
[2019-10-27] MEDS: Dakin's 0.125% Soln (Quarter Strength) 16oz TOPIC SCH (09:06)
[2019-10-27] MEDS ORDERED: Tubing IV Secondary IV ONE (09:54)
--- NOTE | 2019-10-27 10:30 | Nephrology Progress Note ---
Assessment/Plan Plan #Polyuria - r/o DI vs dopamine effect??- however sodium remains in normal range #Shock #UTI # infected sacral pressure ulcer #Acute metabolic encephalopathy #Paraplegia #Sacral pressure ulcer #Hypokalemia #Anemia - continue NS hydration - increased NS to 150 cc/hr - replete mag and K - desmopressin 2mcg IV x1 today - wean off dopamine as tolerated - continue midodrine 10 TID - antibiotics per ID - continue antibiotic to maintain MAP > 65 - monitor lytes - monitor for vanoc toxicity - avoid nephrotoxins - daily weights - strict I&Os time spent 70 min- greater than 50% on care coordination and counseling Subjective ROS Limited/Unobtainable: Yes Subjective remains poluric s/p desmopressin yesterday will try again today Objective Objective Last 24 Hour Vital Signs Date Time Temp Pulse Resp B/P (MAP) Pulse Ox O2 Delivery O2 Flow Rate FiO2 10/27/19 06:30 86 20 104/62 (76) 96 10/27/19 06:00 104/62 10/27/19 06:00 87 17 129/64 (85) 99 10/27/19 05:30 74 23 114/64 (81) 100 10/27/19 05:00 114/64 10/27/19 05:00 75 22 139/68 (91) 100 10/27/19 04:35 113/71 10/27/19 04:30 70 18 113/71 (85) 98 10/27/19 04:00 98.8 78 22 122/71 (88) 99 10/27/19 04:00 73 10/27/19 04:00 Room Air 10/27/19 03:35 89 19 86/61 (69) 96 10/27/19 03:30 94 24 69/51 (57) 97 10/27/19 03:00 69/51 10/27/19 03:00 85 17 114/68 (83) 95 10/27/19 02:30 74 14 99/58 (72) 96 10/27/19 02:00 119 16 98/56 (70) 94 10/27/19 02:00 99/58 10/27/19 01:30 97 16 121/69 (86) 93 10/27/19 01:00 121/69 10/27/19 01:00 83 17 102/65 (77) 96 10/27/19 00:30 84 18 79/53 (62) 95 10/27/19 00:00 Room Air 10/27/19 00:00 98.8 79 15 93/57 (69) 87 10/27/19 00:00 79/53 10/26/19 23:33 84 14 106/67 (80) 83 10/26/19 23:30 85 15 100/50 (67) 79 10/26/19 23:00 91 18 94/42 (59) 94 10/26/19 23:00 94/42 10/26/19 22:30 83 15 91/56 (68) 92 10/26/19 22:00 81 17 91/56 (68) 89 10/26/19 22:00 91/56 10/26/19 21:30 100 23 104/62 (76) 99 10/26/19 21:00 81 19 105/60 (75) 99 10/26/19 21:00 93/53 10/26/19 21:00 105/60 10/26/19 20:30 76 19 104/60 (75) 99 10/26/19 20:00 78 10/26/19 20:00 104/60 10/26/19 20:00 99.0 73 18 105/63 (77) 99 10/26/19 20:00 Room Air 10/26/19 19:30 83 21 110/60 (77) 96 10/26/19 19:00 110/68 10/26/19 18:01 114/65 10/26/19 18:00 71 22 111/63 (79) 99 10/26/19 17:30 73 20 119/63 (81) 99 10/26/19 17:00 85/60 10/26/19 17:00 78 16 85/60 (68) 10/26/19 16:00 Room Air 10/26/19 16:00 73 10/26/19 16:00 106/54 10/26/19 16:00 98.8 65 15 106/54 (71) 100 10/26/19 15:00 78 19 110/66 (81) 99 10/26/19 15:00 110/66 10/26/19 14:30 83 13 94/55 (68) 98 10/26/19 14:03 94/55 10/26/19 14:00 84 12 90/63 (72) 96 10/26/19 13:30 69 13 83/57 (66) 96 10/26/19 13:00 70 15 95/59 (71) 98 10/26/19 13:00 95/59 10/26/19 12:00 91/55 10/26/19 12:00 Room Air 10/26/19 12:00 70 10/26/19 12:00 98.4 63 12 91/55 (67) 98 10/26/19 11:00 74 13 110/73 (85) 97 10/26/19 11:00 110/73 Intake and Output 10/26/19 10/27/19 19:00 07:00 Intake Total 2292.880 ml 2275.020 ml Output Total 1955 ml 2320 ml Balance 337.880 ml -44.980 ml Intake Oral 250 ml 280 ml IV Total 2042.880 ml 1875.020 ml Other 120 ml Output Urine Total 1955 ml 2320 ml # Bowel Movements 1 4 Laboratory Tests 10/27/19 03:30: White Blood Count 7.5, Red Blood Count 2.79L, Hemoglobin 7.1L, Hematocrit 22.7L , Mean Corpuscular Volume 82, Mean Corpuscular Hemoglobin 25.6L, Mean Corpuscular Hemoglobin Concent 31.4L, Red Cell Distribution Width 18.6H, Platelet Count 347, Mean Platelet Volume 4.7L, Neutrophils (%) (Auto) , Lymphocytes (%) (Auto) , Monocytes (%) (Auto) , Eosinophils (%) (Auto) , Basophils (%) (Auto) , Sodium Level 138, Potassium Level 3.1L, Chloride Level 102, Carbon Dioxide Level 29, Anion Gap 7, Blood Urea Nitrogen 13, Creatinine 0.5L, Estimat Glomerular Filtration Rate > 60, Glucose Level 109H, Calcium Level 8.3L, Phosphorus Level 3.2, Magnesium Level 1.3L Height (Feet): 5 Height (Inches): 7.00 Weight (Pounds): 109 Sienna Georges M.D. Oct 27, 2019 10:30
--- NOTE | 2019-10-27 10:31 | Pulmonology Progress Note ---
Subjective ROS Limited/Unobtainable: Yes Interval Events: Looking better Constitutional: Reports: fatigue; Denies: fever HEENT: Repors: no symptoms Respiratory: Reports: no symptoms Cardiovascular: Reports: no symptoms Gastrointestinal/Abdominal: Denies: nausea, vomiting, diarrhea Genitourinary: Reports: no symptoms Psychiatric: Reports: other - NA Skin: Denies: rash Musculoskeletal: Denies: pain Allergies: Coded Allergies: No Known Allergies (Unverified , 08/15/19) Objective Last 24 Hour Vital Signs Date Time Temp Pulse Resp B/P (MAP) Pulse Ox O2 Delivery O2 Flow Rate FiO2 10/27/19 06:30 86 20 104/62 (76) 96 10/27/19 06:00 104/62 10/27/19 06:00 87 17 129/64 (85) 99 10/27/19 05:30 74 23 114/64 (81) 100 10/27/19 05:00 114/64 10/27/19 05:00 75 22 139/68 (91) 100 10/27/19 04:35 113/71 10/27/19 04:30 70 18 113/71 (85) 98 10/27/19 04:00 98.8 78 22 122/71 (88) 99 10/27/19 04:00 73 10/27/19 04:00 Room Air 10/27/19 03:35 89 19 86/61 (69) 96 10/27/19 03:30 94 24 69/51 (57) 97 10/27/19 03:00 69/51 10/27/19 03:00 85 17 114/68 (83) 95 10/27/19 02:30 74 14 99/58 (72) 96 10/27/19 02:00 119 16 98/56 (70) 94 10/27/19 02:00 99/58 10/27/19 01:30 97 16 121/69 (86) 93 10/27/19 01:00 121/69 10/27/19 01:00 83 17 102/65 (77) 96 10/27/19 00:30 84 18 79/53 (62) 95 10/27/19 00:00 Room Air 10/27/19 00:00 98.8 79 15 93/57 (69) 87 10/27/19 00:00 79/53 10/26/19 23:33 84 14 106/67 (80) 83 10/26/19 23:30 85 15 100/50 (67) 79 10/26/19 23:00 91 18 94/42 (59) 94 10/26/19 23:00 94/42 10/26/19 22:30 83 15 91/56 (68) 92 10/26/19 22:00 81 17 91/56 (68) 89 10/26/19 22:00 91/56 10/26/19 21:30 100 23 104/62 (76) 99 10/26/19 21:00 81 19 105/60 (75) 99 10/26/19 21:00 93/53 10/26/19 21:00 105/60 10/26/19 20:30 76 19 104/60 (75) 99 10/26/19 20:00 78 10/26/19 20:00 104/60 10/26/19 20:00 99.0 73 18 105/63 (77) 99 10/26/19 20:00 Room Air 10/26/19 19:30 83 21 110/60 (77) 96 10/26/19 19:00 110/68 10/26/19 18:01 114/65 10/26/19 18:00 71 22 111/63 (79) 99 10/26/19 17:30 73 20 119/63 (81) 99 10/26/19 17:00 85/60 10/26/19 17:00 78 16 85/60 (68) 10/26/19 16:00 Room Air 10/26/19 16:00 73 10/26/19 16:00 106/54 10/26/19 16:00 98.8 65 15 106/54 (71) 100 10/26/19 15:00 78 19 110/66 (81) 99 10/26/19 15:00 110/66 10/26/19 14:30 83 13 94/55 (68) 98 10/26/19 14:03 94/55 10/26/19 14:00 84 12 90/63 (72) 96 10/26/19 13:30 69 13 83/57 (66) 96 10/26/19 13:00 70 15 95/59 (71) 98 10/26/19 13:00 95/59 8/13/20 12:00 91/55 10/26/19 12:00 Room Air 10/26/19 12:00 70 10/26/19 12:00 98.4 63 12 91/55 (67) 98 10/26/19 11:00 74 13 110/73 (85) 97 10/26/19 11:00 110/73 Intake and Output 10/26/19 10/27/19 19:00 07:00 Intake Total 2292.880 ml 2275.020 ml Output Total 1955 ml 2320 ml Balance 337.880 ml -44.980 ml Intake Oral 250 ml 280 ml IV Total 2042.880 ml 1875.020 ml Other 120 ml Output Urine Total 1955 ml 2320 ml # Bowel Movements 1 4 General Appearance: no acute distress HEENT: normocephalic Respiratory: chest wall non-tender, lungs clear Cardiovascular: normal peripheral pulses, regular rhythm Abdomen: normal bowel sounds Extremities: no cyanosis Laboratory Tests 10/27/19 03:30: White Blood Count 7.5, Red Blood Count 2.79L, Hemoglobin 7.1L, Hematocrit 22.7L , Mean Corpuscular Volume 82, Mean Corpuscular Hemoglobin 25.6L, Mean Corpuscular Hemoglobin Concent 31.4L, Red Cell Distribution Width 18.6H, Platelet Count 347, Mean Platelet Volume 4.7L, Neutrophils (%) (Auto) , Lymphocytes (%) (Auto) , Monocytes (%) (Auto) , Eosinophils (%) (Auto) , Basophils (%) (Auto) , Sodium Level 138, Potassium Level 3.1L, Chloride Level 102, Carbon Dioxide Level 29, Anion Gap 7, Blood Urea Nitrogen 13, Creatinine 0.5L, Estimat Glomerular Filtration Rate > 60, Glucose Level 109H, Calcium Level 8.3L, Phosphorus Level 3.2, Magnesium Level 1.3L Current Medications Medications (Trade) Dose Ordered Sig/Mya Route PRN Reason Start Time Stop Time Status Last Admin Dose Admin Acetaminophen (Tylenol) 650 mg Q4H PRN ORAL Mild Pain (Pain Scale 1-3) 10/23/19 17:30 11/22/19 17:29 10/27/19 09:00 Acetaminophen/ Hydrocodone Bitart ([place] 5/325) 1 tab Q4H PRN ORAL Moderate Pain (Pain Scale 4-6) 10/23/19 20:15 10/30/19 20:14 10/26/19 17:32 Acetaminophen/ Hydrocodone Bitart ([place] 5/325) 2 tab Q4H PRN ORAL Severe Pain (Pain Scale 7-10) 10/23/19 20:15 10/30/19 20:14 10/25/19 17:35 Albuterol/ Ipratropium (Albuterol/ Ipratropium) 3 ml Q6H PRN HHN Shortness of Breath 10/23/19 17:30 10/28/19 17:29 Ascorbic Acid (Vitamin C) 500 mg DAILY ORAL 10/24/19 09:00 11/23/19 08:59 10/27/19 08:59 Baclofen (Lioresal) 10 mg THREE TIMES A DAY ORAL 10/23/19 18:00 11/22/19 17:59 10/27/19 08:59 Chlorhexidine Gluconate (Simran-Hex 2%) 1 applic DAILY@2000 TOPIC 10/24/19 20:00 01/22/20 19:59 10/26/19 19:42 Clonazepam (KlonoPIN) 0.5 mg Q8HR ORAL 10/23/19 21:00 10/30/19 20:59 10/27/19 05:48 Dextrose (Dextrose 50%) 25 ml Q30M PRN IV Hypoglycemia 10/23/19 17:30 01/21/20 17:29 Dextrose (Dextrose 50%) 50 ml Q30M PRN IV Hypoglycemia 10/23/19 17:30 01/21/20 17:29 Diphenhydramine HCl (Benadryl) 25 mg Q6H PRN ORAL Itching/Pruritis 10/23/19 17:30 11/22/19 17:29 Docusate Sodium (Colace) 100 mg EVERY 12 HOURS ORAL 10/23/19 21:00 11/22/19 20:59 10/27/19 08:59 Dopamine HCl/ Dextrose 250 ml @ 0 mls/hr Q24H IV 10/24/19 06:15 01/22/20 06:14 10/27/19 04:35 Ferrous Sulfate (Feosol) 325 mg DAILY ORAL 10/24/19 09:00 01/22/20 08:59 10/27/19 08:59 Gabapentin (Neurontin) 400 mg Q8HR ORAL 10/23/19 22:00 11/22/19 21:59 10/27/19 05:48 Heparin Sodium (Porcine) (Heparin 5000 units/ml) 5,000 units EVERY 12 HOURS SUBQ 10/24/19 09:00 12/08/19 08:59 10/27/19 09:02 Meropenem 1 gm/ Sodium Chloride 100 ml @ 200 mls/hr Q8HR IVPB 10/23/19 22:00 10/28/19 21:59 10/27/19 05:48 Midodrine (Pro-Amatine) 10 mg THREE TIMES A DAY ORAL 10/23/19 18:00 01/21/20 17:59 10/27/19 08:59 Norepinephrine Bitartrate 250 ml @ 0 mls/hr Q24H IV 10/23/19 21:00 01/21/20 20:59 10/23/19 20:38 Ondansetron HCl (Zofran) 4 mg Q6H PRN IVP Nausea & Vomiting 10/23/19 17:30 11/22/19 17:29 Potassium Chloride 100 ml @ 100 mls/hr Q1HR IVPB 10/27/19 08:00 10/27/19 11:59 10/27/19 08:58 Sodium Hypochlorite ([place] Quarter Strength) 1 applic DAILY TOPIC 10/25/19 09:00 11/24/19 08:59 10/27/19 09:06 Sodium Chloride 1,000 ml @ 150 mls/hr Q6H40M IV 10/26/19 11:27 11/25/19 11:26 10/27/19 04:35 Zinc Sulfate (Zinc Sulfate) 220 mg DAILY ORAL 10/24/19 09:00 01/22/20 08:59 10/27/19 08:59 Assessment/Plan Assessment/Plan IMPRESSION: 1. Septic shock. 2. Complicated UTI with history of previous ESBL infection. 3. Paraplegia. 4. Sacral decubitus. 5. shelter resident. DISCUSSION: PRN pressors. DVT and GI prophylaxes. ID consult noted. I will follow carefully. Ordered Oxygen, doing well on room air at this time. Haily Monzon Omar Syed MD Oct 27, 2019 10:31
[2019-10-27] MEDS ORDERED: Desmopressin (DDAVP) Inj IV SCH (11:00)
[2019-10-27] MEDS: HYDROcodone/Acetamin 5/325 tab ORAL PRN ×2 (12:31→20:14)
[2019-10-27] MEDS: Norepinephrine 4mg/NS Premix 250 ML IV SCH (12:31)
[2019-10-27 12:56] LABS: % IRON SATURATION 9 % (15-50); IRON 10 ug/dL (50-175); TOTAL IRON BINDING CAPACITY 108 ug/dL (250-450)
[2019-10-27 13:22] LABS: FERRITIN 492 NG/ML (8-388); LACTATE DEHYDROGENASE 126 U/L (81-234)
--- NOTE | 2019-10-27 14:15 | Surgery Progress Note ---
Surgery Progress Note Subjective Additional Comments doing well no complaints comfortable no /v/f/c Objective Last 24 Hour Vital Signs Date Time Temp Pulse Resp B/P (MAP) Pulse Ox O2 Delivery O2 Flow Rate FiO2 10/27/19 12:31 109/70 10/27/19 12:30 75 19 90/56 (67) 10/27/19 12:00 74 10/27/19 12:00 98.5 83 17 109/70 (83) 10/27/19 11:30 69 15 108/72 (84) 10/27/19 11:00 67 16 122/69 (86) 10/27/19 10:30 73 16 123/78 (93) 10/27/19 10:00 73 17 109/70 (83) 10/27/19 09:00 84 16 121/64 (83) 97 10/27/19 08:30 87 20 117/69 (85) 95 10/27/19 08:00 Room Air 10/27/19 08:00 92 19 125/72 (89) 95 10/27/19 08:00 93 10/27/19 07:30 85 18 114/70 (85) 94 10/27/19 07:00 98.0 92 19 98/67 (77) 96 10/27/19 06:30 86 20 104/62 (76) 96 10/27/19 06:00 104/62 10/27/19 06:00 87 17 129/64 (85) 99 10/27/19 05:30 74 23 114/64 (81) 100 10/27/19 05:00 114/64 10/27/19 05:00 75 22 139/68 (91) 100 10/27/19 04:35 113/71 10/27/19 04:30 70 18 113/71 (85) 98 10/27/19 04:00 98.8 78 22 122/71 (88) 99 10/27/19 04:00 73 10/27/19 04:00 Room Air 10/27/19 03:35 89 19 86/61 (69) 96 10/27/19 03:30 94 24 69/51 (57) 97 10/27/19 03:00 69/51 10/27/19 03:00 85 17 114/68 (83) 95 10/27/19 02:30 74 14 99/58 (72) 96 10/27/19 02:00 119 16 98/56 (70) 94 10/27/19 02:00 99/58 10/27/19 01:30 97 16 121/69 (86) 93 10/27/19 01:00 121/69 10/27/19 01:00 83 17 102/65 (77) 96 10/27/19 00:30 84 18 79/53 (62) 95 10/27/19 00:00 Room Air 10/27/19 00:00 98.8 79 15 93/57 (69) 87 10/27/19 00:00 79/53 10/26/19 23:33 84 14 106/67 (80) 83 10/26/19 23:30 85 15 100/50 (67) 79 10/26/19 23:00 91 18 94/42 (59) 94 10/26/19 23:00 94/42 10/26/19 22:30 83 15 91/56 (68) 92 10/26/19 22:00 81 17 91/56 (68) 89 10/26/19 22:00 91/56 10/26/19 21:30 100 23 104/62 (76) 99 10/26/19 21:00 81 19 105/60 (75) 99 10/26/19 21:00 93/53 10/26/19 21:00 105/60 10/26/19 20:30 76 19 104/60 (75) 99 10/26/19 20:00 78 10/26/19 20:00 104/60 10/26/19 20:00 99.0 73 18 105/63 (77) 99 10/26/19 20:00 Room Air 10/26/19 19:30 83 21 110/60 (77) 96 10/26/19 19:00 110/68 10/26/19 18:01 114/65 10/26/19 18:00 71 22 111/63 (79) 99 10/26/19 17:30 73 20 119/63 (81) 99 10/26/19 17:00 85/60 10/26/19 17:00 78 16 85/60 (68) 10/26/19 16:00 Room Air 10/26/19 16:00 73 10/26/19 16:00 106/54 10/26/19 16:00 98.8 65 15 106/54 (71) 100 10/26/19 15:00 78 19 110/66 (81) 99 10/26/19 15:00 110/66 10/26/19 14:30 83 13 94/55 (68) 98 I&O Intake and Output 10/26/19 10/27/19 19:00 07:00 Intake Total 2292.880 ml 2275.020 ml Output Total 1955 ml 2320 ml Balance 337.880 ml -44.980 ml Intake Oral 250 ml 280 ml IV Total 2042.880 ml 1875.020 ml Other 120 ml Output Urine Total 1955 ml 2320 ml # Bowel Movements 1 4 Dressing: saturated Cardiovascular: RSR Respiratory: decreased breath sounds Abdomen: soft, non-tender, present bowel sounds Extremities: no edema, no tenderness, no cyanosis Laboratory Tests Test 10/27/19 03:30 10/27/19 12:00 White Blood Count 7.5 K/UL (4.8-10.8) Red Blood Count 2.79 M/UL (4.70-6.10) L Hemoglobin 7.1 G/DL (14.2-18.0) L Hematocrit 22.7 % (42.0-52.0) L Mean Corpuscular Volume 82 FL (80-99) Mean Corpuscular Hemoglobin 25.6 PG (27.0-31.0) L Mean Corpuscular Hemoglobin Concent 31.4 G/DL (32.0-36.0) L Red Cell Distribution Width 18.6 % (11.6-14.8) H Platelet Count 347 K/UL (150-450) Mean Platelet Volume 4.7 FL (6.5-10.1) L Neutrophils (%) (Auto) % (45.0-75.0) Lymphocytes (%) (Auto) % (20.0-45.0) Monocytes (%) (Auto) % (1.0-10.0) Eosinophils (%) (Auto) % (0.0-3.0) Basophils (%) (Auto) % (0.0-2.0) Sodium Level 138 MMOL/L (136-145) Potassium Level 3.1 MMOL/L (3.5-5.1) L Chloride Level 102 MMOL/L (98-107) Carbon Dioxide Level 29 MMOL/L (21-32) Anion Gap 7 mmol/L (5-15) Blood Urea Nitrogen 13 mg/dL (7-18) Creatinine 0.5 MG/DL (0.55-1.30) L Estimat Glomerular Filtration Rate > 60 mL/min (>60) Glucose Level 109 MG/DL (74-106) H Calcium Level 8.3 MG/DL (8.5-10.1) L Phosphorus Level 3.2 MG/DL (2.5-4.9) Magnesium Level 1.3 MG/DL (1.8-2.4) L Reticulocyte Count 1.8 % (0.5-2.0) Iron Level 10 ug/dL (50-175) L Total Iron Binding Capacity 108 ug/dL (250-450) L Percent Iron Saturation 9 % (15-50) L Unsaturated Iron Binding 98 ug/dL (112-346) L Ferritin 492 NG/ML (8-388) H Lactate Dehydrogenase 126 U/L (81-234) Carcinoembryonic Antigen Pending Thyroid Stimulating Hormone (TSH) 0.210 uiU/mL (0.358-3.740) Plan Problems: (1) Abdominal distension Assessment & Plan: abd distention soft non tender ostomy viable and reduced KUB ordered pending results improved comfortable no complaints okay for diet s tolerated There is an inferior vena cava filter in place. Bowel gas pattern is unremarkable. Considerable stool is seen in the transverse and distal colon. There is extensive pelvic deformity, with loss of the left femoral head, chronic dislocation of the left femur, and extensive pelvic deformity, particularly on the left. Adi project over the upper pelvis Impression: Possible constipation. 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 [place] Shaped, Full Thickness Sacral Pressure Injury which extends into L ischium. (L)15.4cm x (W)18cm x (D)2.4cm, Undermining clockwise 10-2 by 7.7cm @ 11o'clock. Base of wound is moist,pink with scattered slough at base of wound. Bone is palpable at the Base. No odor or exudate noted. Scattered partial thickness wounds and Serous filled blisters noted to R trochanteric /R Hip areas. Historical scar noted to L groin, L Hip L Buttocks. Bony protrusion noted at L Hip. Full thickness Pressure Injury R Ischium(L)5.4cm x(W)6.9cm x (D)1.8cm, Undermining clockwise 1-4 by 2.7cm @2o'clock, Tunneling@7o'clock 2.9cm. Base of wound is moist pink with scattered slough. Scattered slough noted along borders. NO odor or exudate noted. Stable dry eschar noted to medial R knee 0.7cm x (W)0.4cm. Periwound is erythematous and indurated. No elevation in skin temp noted. L heel has shaved appearance secondary to Hx of Pressure Injuries. Base of heel is pale pink. Bone is palpable. Small area of slough noted within compromised area(L)0.6cm x (W)0.8cm. L Heel Also has shaved appearance with hypertrophic scarring. Base of compromised area is pale pink, Bone is palpable, with scattered loose, dry and scaly skin. Tx.Plan: Cleanse Sacral Wound and R Ischial wounds with Dakin's 0.125% gian. Loosely pack wounds with Hydrogel impregnated Kerlix. Apply Moisture Barrier Paste periwound. Cover with ABD Pads secure with Tegaderm drsg.Daily and prn. Apply Triad Paste to R Hip/R trochanteric areas.Cover with Optifoam drsg. Change every 7 days and prn. Apply Betadine to Medial R Knee. Cover with Optifoam drsg. Change every 7 days and prn. Apply Betadine to R and L Heels. Cover each Heel with Optifoam drsgs. Change every 7 days and prn. Cover Bony Prominences as needed with Optifoam drsgs. Reposition at least every 2 [address] tolerated[address] Pillow between knees. Off-load heels with pillow. 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
--- NOTE | 2019-10-27 14:21 | Diagnostic Imaging Report ---
Indication: Shortness of breath Technique: One view of the chest Comparison: 10/25/2019 Findings: There is atelectasis possibly some focal consolidation at the right lung base. Atelectatic changes previously demonstrated at the left lung base have largely cleared. Right jugular central venous catheter remains. The heart size is normal. Impression: Improving left basilar atelectasis. Otherwise little change consultant 2 days findings as noted
--- NOTE | 2019-10-27 18:14 | Infectious Diseases Prog Note ---
Assessment/Plan Assessment/Plan ASSESSMENT AND PLAN: 1. sepsis, shock, proteus uti, possible aspiration pna/hcap vs cap, sacral wound - ? infected, mrsa and vre colonization - change to zosyn and vancomycin - day # 4 antibiotics - monitor labs and chest x-ray - clinically improved, chest x-ray improved - remains on pressors 2. ICU care. 3. Sacral wound -wound mostly clean, management per surgery 4. Ostomy malfunction - per surgery 5. Hypertension. 6. Paraplegia. 7. Anemia. 8. History of decubitus ulcer, rule out infection. Infectious diseases is following. The patient on antibiotics. 9. Hypertension treatment per primary care team. 10. Continue treatment per primary consultants. 11. No known drug allergies. 12. Social history is negative. 13. Family history is noncontributory. 14. MAR was noted. 15. Case discussed with RN. Subjective Constitutional: Denies: fever Respiratory: Denies: shortness of breath Cardiovascular: Denies: chest pain Gastrointestinal/Abdominal: Denies: nausea, vomiting, diarrhea Genitourinary: Reports: other - + donohue Neurologic: Reports: other - alert, responsive Psychiatric: Reports: other - NA Skin: Denies: rash Hematologic: Denies: bleeding Musculoskeletal: Reports: other - weak Allergies: Coded Allergies: No Known Allergies (Unverified , 08/15/19) Objective Last 24 Hour Vital Signs Date Time Temp Pulse Resp B/P (MAP) Pulse Ox O2 Delivery O2 Flow Rate FiO2 10/27/19 17:00 63 17 114/62 (79) 95 10/27/19 16:00 Room Air 10/27/19 16:00 72 10/27/19 16:00 98.8 67 17 99/67 (78) 10/27/19 15:30 66 19 104/62 (76) 10/27/19 15:19 68 22 101/66 (78) 10/27/19 15:00 70 20 108/57 (74) 10/27/19 14:30 69 20 104/66 (79) 10/27/19 14:24 69 19 108/71 (83) 10/27/19 13:30 61 21 116/67 (83) 10/27/19 13:00 63 21 104/70 (81) 10/27/19 12:31 109/70 10/27/19 12:30 75 19 90/56 (67) 10/27/19 12:07 90/56 10/27/19 12:00 Room Air 10/27/19 12:00 74 10/27/19 12:00 98.5 83 17 109/70 (83) 10/27/19 11:30 69 15 108/72 (84) 10/27/19 11:00 108/72 10/27/19 11:00 67 16 122/69 (86) 10/27/19 10:30 73 16 123/78 (93) 10/27/19 10:00 73 17 109/70 (83) 10/27/19 09:00 84 16 121/64 (83) 97 10/27/19 08:30 87 20 117/69 (85) 95 10/27/19 08:00 Room Air 10/27/19 08:00 92 19 125/72 (89) 95 10/27/19 08:00 93 10/27/19 07:30 85 18 114/70 (85) 94 10/27/19 07:00 98.0 92 19 98/67 (77) 96 10/27/19 06:30 86 20 104/62 (76) 96 10/27/19 06:00 104/62 10/27/19 06:00 87 17 129/64 (85) 99 10/27/19 05:30 74 23 114/64 (81) 100 10/27/19 05:00 114/64 10/27/19 05:00 75 22 139/68 (91) 100 10/27/19 04:35 113/71 10/27/19 04:30 70 18 113/71 (85) 98 10/27/19 04:00 98.8 78 22 122/71 (88) 99 10/27/19 04:00 73 10/27/19 04:00 Room Air 10/27/19 03:35 89 19 86/61 (69) 96 10/27/19 03:30 94 24 69/51 (57) 97 10/27/19 03:00 69/51 10/27/19 03:00 85 17 114/68 (83) 95 10/27/19 02:30 74 14 99/58 (72) 96 10/27/19 02:00 119 16 98/56 (70) 94 10/27/19 02:00 99/58 8/14/20 01:30 97 16 121/69 (86) 93 10/27/19 01:00 121/69 10/27/19 01:00 83 17 102/65 (77) 96 10/27/19 00:30 84 18 79/53 (62) 95 10/27/19 00:00 Room Air 10/27/19 00:00 98.8 79 15 93/57 (69) 87 10/27/19 00:00 79/53 10/26/19 23:33 84 14 106/67 (80) 83 10/26/19 23:30 85 15 100/50 (67) 79 10/26/19 23:00 91 18 94/42 (59) 94 10/26/19 23:00 94/42 10/26/19 22:30 83 15 91/56 (68) 92 10/26/19 22:00 81 17 91/56 (68) 89 10/26/19 22:00 91/56 10/26/19 21:30 100 23 104/62 (76) 99 10/26/19 21:00 81 19 105/60 (75) 99 10/26/19 21:00 93/53 10/26/19 21:00 105/60 10/26/19 20:30 76 19 104/60 (75) 99 10/26/19 20:00 78 10/26/19 20:00 104/60 10/26/19 20:00 99.0 73 18 105/63 (77) 99 10/26/19 20:00 Room Air 10/26/19 19:30 83 21 110/60 (77) 96 10/26/19 19:00 110/68 Height (Feet): 5 Height (Inches): 7.00 Weight (Pounds): 109 General Appearance: no acute distress HEENT: normocephalic, atraumatic, anicteric, supple, no JVD Respiratory/Chest: crackles/rales, rhonchi - bilaterally Cardiovascular: normal rate, regular rhythm, no gallop/murmur, no JVD Abdomen: normal bowel sounds, soft, non tender, no organomegaly, non distended Genitourinary: other - + donohue - urine clear Extremities: no cyanosis Skin: no rash 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 There is some atelectasis at the left lung base as well. Right jugular central venous catheter remains. The heart size is normal. Impression: New/increased bilateral basilar infiltrates, since prior study 2019 Chest x-ray - 10/27/19 - Procedure: XRAY Chest 1v Indication: Shortness of breath Technique: One view of the chest Comparison: 10/25/2019 Findings: There is atelectasis possibly some focal consolidation at the right lung base. Atelectatic changes previously demonstrated at the left lung base have largely cleared. Right jugular central venous catheter remains. The heart size is normal. Impression: Improving left basilar atelectasis. Otherwise little roving changer 2 days findings as noted Microbiology Date/Time Source Procedure Growth Status 10/23/19 15:30 Blood Blood Culture - Preliminary NO GROWTH AFTER 72 HOURS Resulted 10/23/19 18:55 Nasal Nares MRSA Culture - Final Staphylococcus Aureus - Mrsa Complete 10/23/19 15:13 Urine,Clean Catch Urine Culture - Preliminary Proteus Mirabilis Resulted 10/23/19 18:55 Rectum - Final NO CARBAPENEM-RESISTANT ENTEROBACTERI... Complete Laboratory Tests Test 10/27/19 03:30 10/27/19 12:00 White Blood Count 7.5 K/UL (4.8-10.8) Red Blood Count 2.79 M/UL (4.70-6.10) L Hemoglobin 7.1 G/DL (14.2-18.0) L Hematocrit 22.7 % (42.0-52.0) L Mean Corpuscular Volume 82 FL (80-99) Mean Corpuscular Hemoglobin 25.6 PG (27.0-31.0) L Mean Corpuscular Hemoglobin Concent 31.4 G/DL (32.0-36.0) L Red Cell Distribution Width 18.6 % (11.6-14.8) H Platelet Count 347 K/UL (150-450) Mean Platelet Volume 4.7 FL (6.5-10.1) L Neutrophils (%) (Auto) % (45.0-75.0) Lymphocytes (%) (Auto) % (20.0-45.0) Monocytes (%) (Auto) % (1.0-10.0) Eosinophils (%) (Auto) % (0.0-3.0) Basophils (%) (Auto) % (0.0-2.0) Sodium Level 138 MMOL/L (136-145) Potassium Level 3.1 MMOL/L (3.5-5.1) L Chloride Level 102 MMOL/L (98-107) Carbon Dioxide Level 29 MMOL/L (21-32) Anion Gap 7 mmol/L (5-15) Blood Urea Nitrogen 13 mg/dL (7-18) Creatinine 0.5 MG/DL (0.55-1.30) L Estimat Glomerular Filtration Rate > 60 mL/min (>60) Glucose Level 109 MG/DL (74-106) H Calcium Level 8.3 MG/DL (8.5-10.1) L Phosphorus Level 3.2 MG/DL (2.5-4.9) Magnesium Level 1.3 MG/DL (1.8-2.4) L Reticulocyte Count 1.8 % (0.5-2.0) PTT Mixing Study Pending APTT Patient/Control Mix Pending Mix PTT Incubation Time Pending Mix PTT Normal/Saline 1:1 Immediate Pending Thrombin Time Normal Plasma Pending Iron Level 10 ug/dL (50-175) L Total Iron Binding Capacity 108 ug/dL (250-450) L Percent Iron Saturation 9 % (15-50) L Unsaturated Iron Binding 98 ug/dL (112-346) L Ferritin 492 NG/ML (8-388) H Lactate Dehydrogenase 126 U/L (81-234) Carcinoembryonic Antigen Pending Thyroid Stimulating Hormone (TSH) 0.210 uiU/mL (0.358-3.740) Current Medications Medications (Trade) Dose Ordered Sig/Mya Route PRN Reason Start Time Stop Time Status Last Admin Dose Admin Acetaminophen (Tylenol) 650 mg Q4H PRN ORAL Mild Pain (Pain Scale 1-3) 10/23/19 17:30 11/22/19 17:29 10/27/19 09:00 Acetaminophen/ Hydrocodone Bitart ([place] 5/325) 1 tab Q4H PRN ORAL Moderate Pain (Pain Scale 4-6) 10/23/19 20:15 10/30/19 20:14 10/27/19 12:31 Acetaminophen/ Hydrocodone Bitart ([place] 5/325) 2 tab Q4H PRN ORAL Severe Pain (Pain Scale 7-10) 10/23/19 20:15 10/30/19 20:14 10/25/19 17:35 Albuterol/ Ipratropium (Albuterol/ Ipratropium) 3 ml Q6H PRN HHN Shortness of Breath 10/23/19 17:30 10/28/19 17:29 Ascorbic Acid (Vitamin C) 500 mg DAILY ORAL 10/24/19 09:00 11/23/19 08:59 10/27/19 08:59 Baclofen (Lioresal) 10 mg THREE TIMES A DAY ORAL 10/23/19 18:00 11/22/19 17:59 10/27/19 17:57 Chlorhexidine Gluconate (Simran-Hex 2%) 1 applic DAILY@2000 TOPIC 10/24/19 20:00 01/22/20 19:59 10/26/19 19:42 Clonazepam (KlonoPIN) 0.5 mg Q8HR ORAL 10/23/19 21:00 10/30/19 20:59 10/27/19 14:29 Dextrose (Dextrose 50%) 25 ml Q30M PRN IV Hypoglycemia 10/23/19 17:30 01/21/20 17:29 Dextrose (Dextrose 50%) 50 ml Q30M PRN IV Hypoglycemia 10/23/19 17:30 01/21/20 17:29 Diphenhydramine HCl (Benadryl) 25 mg Q6H PRN ORAL Itching/Pruritis 10/23/19 17:30 11/22/19 17:29 Docusate Sodium (Colace) 100 mg EVERY 12 HOURS ORAL 10/23/19 21:00 11/22/19 20:59 10/27/19 08:59 Dopamine HCl/ Dextrose 250 ml @ 0 mls/hr Q24H IV 10/24/19 06:15 01/22/20 06:14 10/27/19 04:35 Ferrous Sulfate (Feosol) 325 mg DAILY ORAL 10/24/19 09:00 01/22/20 08:59 10/27/19 08:59 Gabapentin (Neurontin) 400 mg Q8HR ORAL 10/23/19 22:00 11/22/19 21:59 10/27/19 14:29 Heparin Sodium (Porcine) (Heparin 5000 units/ml) 5,000 units EVERY 12 HOURS SUBQ 10/24/19 09:00 12/08/19 08:59 10/27/19 09:02 Meropenem 1 gm/ Sodium Chloride 100 ml @ 200 mls/hr Q8HR IVPB 10/23/19 22:00 10/28/19 21:59 10/27/19 14:29 Midodrine (Pro-Amatine) 10 mg THREE TIMES A DAY ORAL 10/23/19 18:00 01/21/20 17:59 10/27/19 17:57 Norepinephrine Bitartrate 250 ml @ 0 mls/hr Q24H IV 10/23/19 21:00 01/21/20 20:59 10/27/19 12:31 Ondansetron HCl (Zofran) 4 mg Q6H PRN IVP Nausea & Vomiting 10/23/19 17:30 11/22/19 17:29 Sodium Hypochlorite (Dakin's Quarter Strength) 1 applic DAILY TOPIC 10/25/19 09:00 11/24/19 08:59 10/27/19 09:06 Sodium Chloride 1,000 ml @ 150 mls/hr Q6H40M IV 10/26/19 11:27 11/25/19 11:26 10/27/19 14:29 Zinc Sulfate (Zinc Sulfate) 220 mg DAILY ORAL 10/24/19 09:00 01/22/20 08:59 10/27/19 08:59 Sharif Painting MD Oct 27, 2019 18:14
[2019-10-27] MEDS ORDERED: NS 275ml ONE (18:45)
[2019-10-27] MEDS: Dyna-Hex 2% Top Sol 2oz TOPIC SCH (19:59)
[2019-10-27] MEDS: Vancomycin 1gm/D5W 275ml IVPB SCH ×2 (20:13)
[2019-10-28] VITALS (36 sets, daily range): BP systolic 81–127; BP diastolic 47–82
[2019-10-28] MEDS: HYDROcodone/Acetamin 5/325 tab ORAL PRN ×3 (03:44→19:58)
[2019-10-28] MEDS: clonazePAM 0.5mg tab ORAL SCH ×3 (05:05→21:19)
[2019-10-28] MEDS: Vancomycin 1gm/D5W 275ml IVPB SCH ×4 (08:09→19:59)
[2019-10-28] MEDS: Zinc Sulfate 220mg ORAL SCH (08:10)
[2019-10-28] MEDS: Docusate 100mg cap ORAL SCH ×2 (08:10→19:59)
[2019-10-28] MEDS: Midodrine 10mg tab ORAL SCH ×3 (08:10→21:19)
[2019-10-28] MEDS: Ascorbic Acid 500mg tab ORAL SCH (08:10)
[2019-10-28] MEDS: Dakin's 0.125% Soln (Quarter Strength) 16oz TOPIC SCH (08:11)
[2019-10-28] MEDS: Heparin 5000 units/ml inj SUBQ SCH ×2 (08:13→21:00)
--- NOTE | 2019-10-28 08:37 | Hematology/Onc Progress Note ---
Assessment/Plan Assessment/Plan Assessment/recs # Anemia rule out gi bleed, as well as iron deficiency --> hgb 8.2-->7.2-->7.1 --> anemia panel ordered--> cw acd --> occult blood pending --> gi eval prn --> transfuse as needed # Coagulopathy with elev ptt/inr --> vitk and ffp as needed --> no bleeding noted at this time # Hypotension likely due to septic shock. Was diuresing heavily at 300 mL an hour. --> Continue Midodrine and dopamine. --> initially on IV antibiotic with vancomycin and meropenem and amikacin-->christel --> in icu, is on dopamine, pressor --> as per cards # Bradycardia. Continue dopamine. --> cards # Paraplegia. # Urinary tract infection, followed by Dr. Painting on broad-spectrum IV antibiotic. # Decubitus ulcers with sacral decubitus. # Dvt heparin sq Appreciate consultation and chandrakant RN Subjective Constitutional: Denies: no symptoms, chills, fever, malaise, weakness, other HEENT: Denies: no symptoms, eye pain, blurred vision, tearing, double vision, ear pain, ear discharge, nose pain, nose congestion, throat pain, throat swelling, mouth pain, mouth swelling, other Cardiovascular: Denies: no symptoms, chest pain, edema, irregular heart rate, lightheadedness, palpitations, syncope, other Gastrointestinal/Abdominal: Denies: no symptoms, abdomen distended, abdominal pain, black stools, tarry stools, blood in stool, constipated, diarrhea, difficulty swallowing, nausea, poor appetite, poor fluid intake, rectal bleeding , vomiting, other Genitourinary: Denies: no symptoms, burning, discharge, frequency, flank pain, hematuria, incontinence, pain, urgency, other Neurologic/Psychiatric: Denies: no symptoms, anxiety, depressed, emotional problems, headache, numbness, paresthesia, pre-existing deficit, seizure, tingling, tremors, weakness, other Endocrine: Denies: no symptoms, excessive sweating, flushing, intolerance to cold, intolerance to heat, increased hunger, increased thirst, increased urine, unexplained weight gain, unexplained weight loss, other Hematologic/Lymphatic: Denies: no symptoms, anemia, easy bleeding, easy bruising, adenopathy, other Allergies: Coded Allergies: No Known Allergies (Unverified , 08/15/19) Subjective 10/27 labs again refused this am, yesterday was chandrakant james rn in icu Objective Objective Current Medications Medications (Trade) Dose Ordered Sig/Mya Route PRN Reason Start Time Stop Time Status Last Admin Dose Admin Acetaminophen (Tylenol) 650 mg Q4H PRN ORAL Mild Pain (Pain Scale 1-3) 10/23/19 17:30 11/22/19 17:29 10/27/19 09:00 Acetaminophen/ Hydrocodone Bitart ([place] 5/325) 1 tab Q4H PRN ORAL Moderate Pain (Pain Scale 4-6) 10/23/19 20:15 10/30/19 20:14 10/27/19 12:31 Acetaminophen/ Hydrocodone Bitart ([place] 5/325) 2 tab Q4H PRN ORAL Severe Pain (Pain Scale 7-10) 10/23/19 20:15 10/30/19 20:14 10/28/19 03:44 Albuterol/ Ipratropium (Albuterol/ Ipratropium) 3 ml Q6H PRN HHN Shortness of Breath 10/23/19 17:30 10/28/19 17:29 Ascorbic Acid (Vitamin C) 500 mg DAILY ORAL 10/24/19 09:00 11/23/19 08:59 10/28/19 08:10 Baclofen (Lioresal) 10 mg THREE TIMES A DAY ORAL 10/23/19 18:00 11/22/19 17:59 10/28/19 08:10 Chlorhexidine Gluconate (Simran-Hex 2%) 1 applic DAILY@1999 TOPIC 10/24/19 20:00 01/22/20 19:59 10/27/19 19:59 Clonazepam (KlonoPIN) 0.5 mg Q8HR ORAL 10/23/19 21:00 10/30/19 20:59 10/28/19 05:05 Dextrose (Dextrose 50%) 25 ml Q30M PRN IV Hypoglycemia 10/23/19 17:30 01/21/20 17:29 Dextrose (Dextrose 50%) 50 ml Q30M PRN IV Hypoglycemia 10/23/19 17:30 01/21/20 17:29 Diphenhydramine HCl (Benadryl) 25 mg Q6H PRN ORAL Itching/Pruritis 10/23/19 17:30 11/22/19 17:29 Docusate Sodium (Colace) 100 mg EVERY 12 HOURS ORAL 10/23/19 21:00 11/22/19 20:59 10/28/19 08:10 Dopamine HCl/ Dextrose 250 ml @ 0 mls/hr Q24H IV 10/24/19 06:15 01/22/20 06:14 10/27/19 04:35 Ferrous Sulfate (Feosol) 325 mg DAILY ORAL 10/24/19 09:00 01/22/20 08:59 10/28/19 08:10 Gabapentin (Neurontin) 400 mg Q8HR ORAL 10/23/19 22:00 11/22/19 21:59 10/28/19 05:05 Heparin Sodium (Porcine) (Heparin 5000 units/ml) 5,000 units EVERY 12 HOURS SUBQ 10/24/19 09:00 12/08/19 08:59 10/28/19 08:13 Midodrine (Pro-Amatine) 10 mg THREE TIMES A DAY ORAL 10/23/19 18:00 01/21/20 17:59 10/28/19 08:10 Norepinephrine Bitartrate 250 ml @ 0 mls/hr Q24H IV 10/23/19 21:00 01/21/20 20:59 10/27/19 12:31 Ondansetron HCl (Zofran) 4 mg Q6H PRN IVP Nausea & Vomiting 10/23/19 17:30 11/22/19 17:29 Piperacillin Sod/ Tazobactam Sod 3.375 gm/Dextrose 100 ml @ 25 mls/hr EVERY 8 HOURS IVPB 10/27/19 22:00 11/01/19 21:59 10/28/19 05:05 Sodium Hypochlorite (Dakin's Quarter Strength) 1 applic DAILY TOPIC 10/25/19 09:00 11/24/19 08:59 10/28/19 08:11 Sodium Chloride 1,000 ml @ 150 mls/hr Q6H40M IV 10/26/19 11:27 11/25/19 11:26 10/28/19 03:01 Vancomycin HCl (Vanco pharmacy to dose) 1 ea DAILY PRN MISC Per rx protocol 10/27/19 18:15 11/26/19 18:14 Vancomycin HCl 1 gm/Dextrose 275 ml @ 183.708 mls/hr Q12H IVPB 10/27/19 20:00 11/01/19 19:59 10/28/19 08:09 Zinc Sulfate (Zinc Sulfate) 220 mg DAILY ORAL 10/24/19 09:00 01/22/20 08:59 10/28/19 08:10 Last 24 Hour Vital Signs Date Time Temp Pulse Resp B/P (MAP) Pulse Ox O2 Delivery O2 Flow Rate FiO2 10/28/19 08:00 98.0 71 18 124/64 (84) 100 10/28/19 08:00 Room Air 10/28/19 07:00 62 19 111/61 (78) 98 10/28/19 06:00 59 17 111/70 (84) 99 10/28/19 05:00 71 17 81/49 (60) 98 10/28/19 04:00 Room Air 10/28/19 04:00 63 10/28/19 04:00 97.7 65 14 101/67 (78) 97 10/28/19 03:00 61 18 116/61 (79) 99 10/28/19 02:00 62 16 91/54 (66) 95 10/28/19 01:00 59 17 108/67 (81) 100 10/28/19 00:00 76 10/28/19 00:00 Room Air 10/28/19 00:00 98.4 62 14 103/60 (74) 100 10/27/19 23:15 70 16 98/59 (72) 99 10/27/19 23:00 72 14 89/63 (72) 98 10/27/19 22:00 75 21 94/61 (72) 99 10/27/19 21:00 72 17 118/64 (82) 94 10/27/19 20:00 Room Air 10/27/19 20:00 97.6 62 16 141/67 (91) 100 10/27/19 20:00 64 10/27/19 19:00 65 14 118/58 (78) 99 10/27/19 18:00 63 15 100/60 (73) 100 10/27/19 17:00 63 17 114/62 (79) 95 10/27/19 16:00 Room Air 10/27/19 16:00 72 10/27/19 16:00 98.8 67 17 99/67 (78) 10/27/19 15:30 66 19 104/62 (76) 10/27/19 15:19 68 22 101/66 (78) 10/27/19 15:00 70 20 108/57 (74) 10/27/19 14:30 69 20 104/66 (79) 10/27/19 14:24 69 19 108/71 (83) 10/27/19 13:30 61 21 116/67 (83) 10/27/19 13:00 63 21 104/70 (81) 10/27/19 12:31 109/70 10/27/19 12:30 75 19 90/56 (67) 10/27/19 12:07 90/56 10/27/19 12:00 Room Air 10/27/19 12:00 74 10/27/19 12:00 98.5 83 17 109/70 (83) 10/27/19 11:30 69 15 108/72 (84) 10/27/19 11:00 108/72 10/27/19 11:00 67 16 122/69 (86) 10/27/19 10:30 73 16 123/78 (93) 10/27/19 10:00 73 17 109/70 (83) 10/27/19 09:00 84 16 121/64 (83) 97 10/27/19 08:30 87 20 117/69 (85) 95 10/27/19 08:00 Room Air 10/27/19 08:00 92 19 125/72 (89) 95 10/27/19 08:00 93 10/27/19 07:30 85 18 114/70 (85) 94 10/27/19 07:00 98.0 92 19 98/67 (77) 96 10/27/19 06:30 86 20 104/62 (76) 96 10/27/19 06:00 104/62 10/27/19 06:00 87 17 129/64 (85) 99 10/27/19 05:30 74 23 114/64 (81) 100 10/27/19 05:00 114/64 10/27/19 05:00 75 22 139/68 (91) 100 10/27/19 04:35 113/71 10/27/19 04:30 70 18 113/71 (85) 98 10/27/19 04:00 98.8 78 22 122/71 (88) 99 10/27/19 04:00 73 10/27/19 04:00 Room Air 10/27/19 03:35 89 19 86/61 (69) 96 10/27/19 03:30 94 24 69/51 (57) 97 10/27/19 03:00 69/51 10/27/19 03:00 85 17 114/68 (83) 95 10/27/19 02:30 74 14 99/58 (72) 96 10/27/19 02:00 119 16 98/56 (70) 94 10/27/19 02:00 99/58 10/27/19 01:30 97 16 121/69 (86) 93 10/27/19 01:00 121/69 10/27/19 01:00 83 17 102/65 (77) 96 10/27/19 00:30 84 18 79/53 (62) 95 10/27/19 00:00 Room Air 10/27/19 00:00 98.8 79 15 93/57 (69) 87 10/27/19 00:00 79/53 10/26/19 23:33 84 14 106/67 (80) 83 10/26/19 23:30 85 15 100/50 (67) 79 10/26/19 23:00 91 18 94/42 (59) 94 10/26/19 23:00 94/42 10/26/19 22:30 83 15 91/56 (68) 92 10/26/19 22:00 81 17 91/56 (68) 89 10/26/19 22:00 91/56 10/26/19 21:30 100 23 104/62 (76) 99 10/26/19 21:00 81 19 105/60 (75) 99 10/26/19 21:00 93/53 10/26/19 21:00 105/60 10/26/19 20:30 76 19 104/60 (75) 99 10/26/19 20:00 78 10/26/19 20:00 104/60 10/26/19 20:00 99.0 73 18 105/63 (77) 99 10/26/19 20:00 Room Air 10/26/19 19:30 83 21 110/60 (77) 96 10/26/19 19:00 110/68 10/26/19 18:01 114/65 10/26/19 18:00 71 22 111/63 (79) 99 10/26/19 17:30 73 20 119/63 (81) 99 10/26/19 17:00 85/60 10/26/19 17:00 78 16 85/60 (68) 10/26/19 16:00 Room Air 10/26/19 16:00 73 10/26/19 16:00 106/54 10/26/19 16:00 98.8 65 15 106/54 (71) 100 10/26/19 15:00 78 19 110/66 (81) 99 10/26/19 15:00 110/66 10/26/19 14:30 83 13 94/55 (68) 98 10/26/19 14:03 94/55 10/26/19 14:00 84 12 90/63 (72) 96 10/26/19 13:30 69 13 83/57 (66) 96 10/26/19 13:00 70 15 95/59 (71) 98 10/26/19 13:00 95/59 10/26/19 12:00 91/55 10/26/19 12:00 Room Air 10/26/19 12:00 70 10/26/19 12:00 98.4 63 12 91/55 (67) 98 10/26/19 11:00 74 13 110/73 (85) 97 10/26/19 11:00 110/73 10/26/19 10:00 125/69 10/26/19 10:00 59 12 125/69 (87) 98 10/26/19 09:30 74 16 103/58 (73) 98 10/26/19 09:00 77 15 89/59 (69) 91 10/26/19 09:00 89/59 Intake and Output 10/27/19 10/28/19 19:00 07:00 Intake Total 2639.292 ml 2554.654 ml Output Total 1955 ml 1550 ml Balance 684.292 ml 1004.654 ml Intake Oral 260 ml 360 ml IV Total 2379.292 ml 2194.654 ml Output Urine Total 1955 ml 1550 ml # Bowel Movements 2 1 Labs Test 10/26/19 08:30 10/26/19 09:20 10/27/19 03:30 10/27/19 12:00 Urine Color Pale yellow Urine Appearance Clear Urine pH 7 (4.5-8.0) Urine Specific [place] 1.005 (1.005-1.035) Urine Protein Negative (NEGATIVE) Urine Glucose (UA) Negative (NEGATIVE) Urine Ketones Negative (NEGATIVE) Urine Blood Negative (NEGATIVE) Urine Nitrite Negative (NEGATIVE) Urine Bilirubin Negative (NEGATIVE) Urine Urobilinogen Normal MG/DL (0.0-1.0) Urine Leukocyte Esterase Negative (NEGATIVE) Urine RBC 0 /HPF (0 - 0) Urine WBC 0-2 /HPF (0 - 0) Urine Squamous Epithelial Cells None /LPF (NONE/OCC) Urine Bacteria Occasional /HPF (NONE) Urine Osmolality 230 mOsm/kg (429-449) Urine Random Sodium 81 mmol/L (20-110) Urine Creatinine 5.9 MG/DL (30.0-125.0) White Blood Count 8.2 K/UL (4.8-10.8) 7.5 K/UL (4.8-10.8) Red Blood Count 2.83 M/UL (4.70-6.10) 2.79 M/UL (4.70-6.10) Hemoglobin 7.2 G/DL (14.2-18.0) 7.1 G/DL (14.2-18.0) Hematocrit 23.4 % (42.0-52.0) 22.7 % (42.0-52.0) Mean Corpuscular Volume 83 FL (80-99) 82 FL (80-99) Mean Corpuscular Hemoglobin 25.6 PG (27.0-31.0) 25.6 PG (27.0-31.0) Mean Corpuscular Hemoglobin Concent 30.9 G/DL (32.0-36.0) 31.4 G/DL (32.0-36.0) Red Cell Distribution Width 18.1 % (11.6-14.8) 18.6 % (11.6-14.8) Platelet Count 337 K/UL (150-450) 347 K/UL (150-450) Mean Platelet Volume 4.1 FL (6.5-10.1) 4.7 FL (6.5-10.1) Neutrophils (%) (Auto) % (45.0-75.0) % (45.0-75.0) Lymphocytes (%) (Auto) % (20.0-45.0) % (20.0-45.0) Monocytes (%) (Auto) % (1.0-10.0) % (1.0-10.0) Eosinophils (%) (Auto) % (0.0-3.0) % (0.0-3.0) Basophils (%) (Auto) % (0.0-2.0) % (0.0-2.0) Differential Total Cells Counted 100 Neutrophils % (Manual) 66 % (45-75) Lymphocytes % (Manual) 24 % (20-45) Monocytes % (Manual) 9 % (1-10) Eosinophils % (Manual) 1 % (0-3) Basophils % (Manual) 0 % (0-2) Band Neutrophils 0 % (0-8) Platelet Estimate Adequate Platelet Morphology Normal Hypochromasia 1+ Anisocytosis 1+ Sodium Level 138 MMOL/L (136-145) 138 MMOL/L (136-145) Potassium Level 3.3 MMOL/L (3.5-5.1) 3.1 MMOL/L (3.5-5.1) Chloride Level 103 MMOL/L (98-107) 102 MMOL/L (98-107) Carbon Dioxide Level 27 MMOL/L (21-32) 29 MMOL/L (21-32) Anion Gap 8 mmol/L (5-15) 7 mmol/L (5-15) Blood Urea Nitrogen 9 mg/dL (7-18) 13 mg/dL (7-18) Creatinine 0.4 MG/DL (0.55-1.30) 0.5 MG/DL (0.55-1.30) Estimat Glomerular Filtration Rate > 60 mL/min (>60) > 60 mL/min (>60) Glucose Level 86 MG/DL (74-106) 109 MG/DL (74-106) Calcium Level 8.0 MG/DL (8.5-10.1) 8.3 MG/DL (8.5-10.1) Phosphorus Level 3.2 MG/DL (2.5-4.9) Magnesium Level 1.3 MG/DL (1.8-2.4) Reticulocyte Count 1.8 % (0.5-2.0) Iron Level 10 ug/dL (50-175) Total Iron Binding Capacity 108 ug/dL (250-450) Percent Iron Saturation 9 % (15-50) Unsaturated Iron Binding 98 ug/dL (112-346) Ferritin 492 NG/ML (8-388) Lactate Dehydrogenase 126 U/L (81-234) Carcinoembryonic Antigen 0.9 ng/mL (0.0-4.7) Thyroid Stimulating Hormone (TSH) 0.210 uiU/mL (0.358-3.740) Height (Feet): 5 Height (Inches): 7.00 Weight (Pounds): 115 Objective Physical Exam General Appearance: lethargic Lines, tubes and drains: peripheral, central line HEENT: normocephalic Neck: non-tender, normal alignment Respiratory/Chest: lungs clear Cardiovascular/Chest: normal peripheral pulses, normal rate, regular rhythm Abdomen: normal bowel sounds, non tender Martínez Capps MD Oct 28, 2019 08:36
[2019-10-28] MEDS: Norepinephrine 4mg/NS Premix 250 ML IV SCH (10:15)
--- NOTE | 2019-10-28 14:38 | General Progress Note ---
Assessment/Plan Assessment/Plan: '59 year old man who presents from LVT with weakness, encephalopathy, concern for septic shock, possible from UTI vs infected sacral pressure ulcer #Septic shock #Proteus UTI #Acute metabolic encephalopathy #Paraplegia #Sacral pressure ulcer, present on admit -continue ICU care -Wean off vasopressors -off vanco and amikacin, continue meropenem -Spoke with surgery, sacral pressure ulcer does not appear to be infected -Local wound care and offloading #Sinus Bradycardia to 44 -continue telemetry -EP following #Hypokalemia -refusign labs #Anemia, acute on chronic -monitor H&H -Hematology following VTE PPx HSQ Full Code I spent 75 minutes on this patient's case, and 38 mins was dedicated to critical care Critical Care Services performed include: Telemetry Review Hemodynamic measurement interpretation Laboratory data review and interpretation Radiology image review and interpretation Discussion of patient's care with ICU team, ICU Nursing staff and/or consulting services Subjective Date patient seen: Oct 28, 2019 Time patient seen: 11:22 ROS Limited/Unobtainable: Yes Constitutional: Reports: fever Cardiovascular: Reports: chest pain Respiratory: Reports: cough, shortness of breath Gastrointestinal/Abdominal: Reports: abdominal pain Allergies: Coded Allergies: No Known Allergies (Unverified , 08/15/19) Subjective Follow up for septic shock, UTI acute metabolic encephalopathy Off dopamine, on low rate Levophed Refused labs today Objective Last 24 Hour Vital Signs Date Time Temp Pulse Resp B/P (MAP) Pulse Ox O2 Delivery O2 Flow Rate FiO2 10/28/19 13:00 80 19 95/60 (72) 97 10/28/19 12:00 Room Air 10/28/19 12:00 97.4 75 22 99/57 (71) 99 10/28/19 11:30 83 24 94/52 (66) 94 10/28/19 11:22 76 10/28/19 11:15 77 20 101/59 (73) 98 10/28/19 11:00 80 18 106/64 (78) 98 10/28/19 10:45 73 20 94/54 (67) 96 10/28/19 10:30 80 21 98/52 (67) 90 10/28/19 10:15 67 17 107/65 (79) 95 10/28/19 10:15 107/65 10/28/19 10:00 71 17 115/71 (86) 93 10/28/19 09:00 72 20 109/64 (79) 98 10/28/19 08:11 71 10/28/19 08:00 98.0 71 18 124/64 (84) 100 10/28/19 08:00 Room Air 10/28/19 07:00 62 19 111/61 (78) 98 10/28/19 06:00 59 17 111/70 (84) 99 10/28/19 05:00 71 17 81/49 (60) 98 10/28/19 04:00 Room Air 10/28/19 04:00 63 10/28/19 04:00 97.7 65 14 101/67 (78) 97 10/28/19 03:00 61 18 116/61 (79) 99 10/28/19 02:00 62 16 91/54 (66) 95 10/28/19 01:00 59 17 108/67 (81) 100 10/28/19 00:00 76 10/28/19 00:00 Room Air 10/28/19 00:00 98.4 62 14 103/60 (74) 100 10/27/19 23:15 70 16 98/59 (72) 99 10/27/19 23:00 72 14 89/63 (72) 98 10/27/19 22:00 75 21 94/61 (72) 99 10/27/19 21:00 72 17 118/64 (82) 94 10/27/19 20:00 Room Air 10/27/19 20:00 97.6 62 16 141/67 (91) 100 10/27/19 20:00 64 10/27/19 19:00 65 14 118/58 (78) 99 10/27/19 18:00 63 15 100/60 (73) 100 10/27/19 17:00 63 17 114/62 (79) 95 10/27/19 16:00 Room Air 10/27/19 16:00 72 10/27/19 16:00 98.8 67 17 99/67 (78) 10/27/19 15:30 66 19 104/62 (76) 10/27/19 15:19 68 22 101/66 (78) 10/27/19 15:00 70 20 108/57 (74) Intake and Output 10/27/19 10/28/19 19:00 07:00 Intake Total 2639.292 ml 2554.654 ml Output Total 1955 ml 1550 ml Balance 684.292 ml 1004.654 ml Intake Oral 260 ml 360 ml IV Total 2379.292 ml 2194.654 ml Output Urine Total 1955 ml 1550 ml # Bowel Movements 2 1 Height (Feet): 5 Height (Inches): 7.00 Weight (Pounds): 115 General Appearance: no apparent distress, alert Neck: normal alignment, supple Cardiovascular: normal rate, regular rhythm Respiratory/Chest: lungs clear, normal breath sounds John Tejada MD Oct 28, 2019 14:38
--- NOTE | 2019-10-28 15:50 | Pulmonolgy Critical Care Note ---
Critical Care - Asmt/Plan Assessment/Plan: Pulmonary CCM Progress Note Subjective ROS Limited/Unobtainable: Yes Interval Events: Looking better - on room air Constitutional: Reports: fatigue; Denies: fever HEENT: Reports: no symptoms Respiratory: Reports: no symptoms Cardiovascular: Reports: no symptoms Gastrointestinal/Abdominal: Denies: nausea, vomiting, diarrhea Genitourinary: Reports: no symptoms Psychiatric: Reports: other - NA Skin: Denies: rash Musculoskeletal: Denies: pain Allergies: Coded Allergies: No Known Allergies (Unverified , 08/15/19) Objective Vital Signs Noted General Appearance: no acute distress HEENT: normocephalic Respiratory: chest wall non-tender, lungs clear Cardiovascular: normal peripheral pulses, regular rhythm Abdomen: normal bowel sounds Extremities: no cyanosis, paraplegia Laboratory Tests Noted Assessment/Plan IMPRESSION: 1. Septic shock. 2. Complicated UTI with history of previous ESBL infection. 3. Paraplegia. 4. Sacral decubitus. 5.Anemia 6. [facility] resident. DISCUSSION: Antibiotics per ID consult Renal following PRN pressors. DVT and GI prophylaxis. I will follow carefully. Ordered Oxygen, doing well on room air at this time. Critical Care - Objective Last 24 Hour Vital Signs Date Time Temp Pulse Resp B/P (MAP) Pulse Ox O2 Delivery O2 Flow Rate FiO2 10/28/19 15:00 89 16 127/82 (97) 97 10/28/19 14:30 90 22 107/57 (74) 97 10/28/19 14:00 88 22 102/82 (89) 97 10/28/19 13:30 91 21 102/58 (73) 97 10/28/19 13:00 80 19 95/60 (72) 97 10/28/19 12:00 Room Air 10/28/19 12:00 97.4 75 22 99/57 (71) 99 10/28/19 11:30 83 24 94/52 (66) 94 10/28/19 11:22 76 10/28/19 11:15 77 20 101/59 (73) 98 10/28/19 11:00 80 18 106/64 (78) 98 10/28/19 10:45 73 20 94/54 (67) 96 10/28/19 10:30 80 21 98/52 (67) 90 10/28/19 10:15 67 17 107/65 (79) 95 10/28/19 10:15 107/65 10/28/19 10:00 71 17 115/71 (86) 93 10/28/19 09:00 72 20 109/64 (79) 98 10/28/19 08:11 71 10/28/19 08:00 98.0 71 18 124/64 (84) 100 10/28/19 08:00 Room Air 10/28/19 07:00 62 19 111/61 (78) 98 10/28/19 06:00 59 17 111/70 (84) 99 10/28/19 05:00 71 17 81/49 (60) 98 10/28/19 04:00 Room Air 10/28/19 04:00 63 10/28/19 04:00 97.7 65 14 101/67 (78) 97 10/28/19 03:00 61 18 116/61 (79) 99 10/28/19 02:00 62 16 91/54 (66) 95 10/28/19 01:00 59 17 108/67 (81) 100 10/28/19 00:00 76 10/28/19 00:00 Room Air 10/28/19 00:00 98.4 62 14 103/60 (74) 100 10/27/19 23:15 70 16 98/59 (72) 99 10/27/19 23:00 72 14 89/63 (72) 98 10/27/19 22:00 75 21 94/61 (72) 99 10/27/19 21:00 72 17 118/64 (82) 94 10/27/19 20:00 Room Air 10/27/19 20:00 97.6 62 16 141/67 (91) 100 10/27/19 20:00 64 10/27/19 19:00 65 14 118/58 (78) 99 10/27/19 18:00 63 15 100/60 (73) 100 10/27/19 17:00 63 17 114/62 (79) 95 10/27/19 16:00 Room Air 10/27/19 16:00 72 10/27/19 16:00 98.8 67 17 99/67 (78) Accucheck: 132 Critical Care - Subjective ROS Limited/Unobtainable: No Condition: stable IV Access: central I&O: Intake and Output 10/27/19 10/28/19 19:00 07:00 Intake Total 2639.292 ml 2554.654 ml Output Total 1955 ml 1550 ml Balance 684.292 ml 1004.654 ml Intake Oral 260 ml 360 ml IV Total 2379.292 ml 2194.654 ml Output Urine Total 1955 ml 1550 ml # Bowel Movements 2 1 Anthony Edwards MD Oct 28, 2019 15:50
--- NOTE | 2019-10-28 16:52 | Nephrology Progress Note ---
Assessment/Plan Plan #Polyuria - r/o DI vs dopamine effect??- however sodium remains in normal range #Shock #UTI # infected sacral pressure ulcer #Acute metabolic encephalopathy #Paraplegia #Sacral pressure ulcer #Hypokalemia #Anemia - continue NS hydration - increased NS to 150 cc/hr - replete mag and K - desmopressin 2mcg IV BID - wean off dopamine as tolerated - continue midodrine 10 TID - antibiotics per ID - continue antibiotic to maintain MAP > 65 - monitor lytes - monitor for vanoc toxicity - avoid nephrotoxins - daily weights - strict I&Os time spent 70 min- greater than 50% on care coordination and counseling Subjective ROS Limited/Unobtainable: Yes Subjective less polyuric will continue with desmopressin Objective Objective Last 24 Hour Vital Signs Date Time Temp Pulse Resp B/P (MAP) Pulse Ox O2 Delivery O2 Flow Rate FiO2 10/28/19 16:30 91 18 125/63 (83) 98 10/28/19 16:00 97.4 83 18 112/67 (82) 99 10/28/19 16:00 Room Air 10/28/19 15:30 84 10 114/68 (83) 99 10/28/19 15:24 82 10/28/19 15:00 89 16 127/82 (97) 97 10/28/19 14:30 90 22 107/57 (74) 97 10/28/19 14:00 88 22 102/82 (89) 97 10/28/19 13:30 91 21 102/58 (73) 97 10/28/19 13:00 80 19 95/60 (72) 97 10/28/19 12:00 Room Air 10/28/19 12:00 97.4 75 22 99/57 (71) 99 10/28/19 11:30 83 24 94/52 (66) 94 10/28/19 11:22 76 10/28/19 11:15 77 20 101/59 (73) 98 10/28/19 11:00 80 18 106/64 (78) 98 10/28/19 10:45 73 20 94/54 (67) 96 10/28/19 10:30 80 21 98/52 (67) 90 10/28/19 10:15 67 17 107/65 (79) 95 10/28/19 10:15 107/65 10/28/19 10:00 71 17 115/71 (86) 93 10/28/19 09:00 72 20 109/64 (79) 98 10/28/19 08:11 71 10/28/19 08:00 98.0 71 18 124/64 (84) 100 10/28/19 08:00 Room Air 10/28/19 07:00 62 19 111/61 (78) 98 10/28/19 06:00 59 17 111/70 (84) 99 10/28/19 05:00 71 17 81/49 (60) 98 10/28/19 04:00 Room Air 10/28/19 04:00 63 10/28/19 04:00 97.7 65 14 101/67 (78) 97 10/28/19 03:00 61 18 116/61 (79) 99 10/28/19 02:00 62 16 91/54 (66) 95 10/28/19 01:00 59 17 108/67 (81) 100 10/28/19 00:00 76 10/28/19 00:00 Room Air 10/28/19 00:00 98.4 62 14 103/60 (74) 100 10/27/19 23:15 70 16 98/59 (72) 99 10/27/19 23:00 72 14 89/63 (72) 98 10/27/19 22:00 75 21 94/61 (72) 99 10/27/19 21:00 72 17 118/64 (82) 94 10/27/19 20:00 Room Air 10/27/19 20:00 97.6 62 16 141/67 (91) 100 10/27/19 20:00 64 10/27/19 19:00 65 14 118/58 (78) 99 10/27/19 18:00 63 15 100/60 (73) 100 10/27/19 17:00 63 17 114/62 (79) 95 Intake and Output 10/27/19 10/28/19 19:00 07:00 Intake Total 2639.292 ml 2554.654 ml Output Total 1955 ml 1550 ml Balance 684.292 ml 1004.654 ml Intake Oral 260 ml 360 ml IV Total 2379.292 ml 2194.654 ml Output Urine Total 1955 ml 1550 ml # Bowel Movements 2 1 Height (Feet): 5 Height (Inches): 7.00 Weight (Pounds): 115 General Appearance: no apparent distress EENT: PERRL/EOMI, normal ENT inspection Neck: non-tender, normal alignment Cardiovascular: normal peripheral pulses, normal rate, regular rhythm Respiratory/Chest: chest wall non-tender, rhonchi - bilaterally Abdomen: normal bowel sounds, non tender, soft Sienna Georges M.D. Oct 28, 2019 16:52
--- NOTE | 2019-10-28 16:57 | Cardiac Electrophysiology PN ---
Assessment/Plan Assessment/Plan 1. Septic shock. On Midodrine, Levophed and IV antibiotic 2. Bradycardia. Resolved. DCed dopamine. 3. Paraplegia. 4. Urinary tract infection, followed by Dr. Painting on broad-spectrum IV antibiotic. 5. Decubitus ulcers with sacral decubitus. 6. S/P Ileostomy/ 7. Polyuria, DI vs DOpamine effect. Got DDAVP. Changed Dopamine to Levophed as it potentially may cause diuresis DFW DR Lynch Subjective Subjective Alert in NAD in ICU. On Levo 2 Mcg and Midodrine. RN at bedside Objective Last 24 Hour Vital Signs Date Time Temp Pulse Resp B/P (MAP) Pulse Ox O2 Delivery O2 Flow Rate FiO2 10/28/19 16:30 91 18 125/63 (83) 98 10/28/19 16:00 97.4 83 18 112/67 (82) 99 10/28/19 16:00 Room Air 10/28/19 15:30 84 10 114/68 (83) 99 10/28/19 15:24 82 10/28/19 15:00 89 16 127/82 (97) 97 10/28/19 14:30 90 22 107/57 (74) 97 10/28/19 14:00 88 22 102/82 (89) 97 10/28/19 13:30 91 21 102/58 (73) 97 10/28/19 13:00 80 19 95/60 (72) 97 10/28/19 12:00 Room Air 10/28/19 12:00 97.4 75 22 99/57 (71) 99 10/28/19 11:30 83 24 94/52 (66) 94 10/28/19 11:22 76 10/28/19 11:15 77 20 101/59 (73) 98 10/28/19 11:00 80 18 106/64 (78) 98 10/28/19 10:45 73 20 94/54 (67) 96 10/28/19 10:30 80 21 98/52 (67) 90 10/28/19 10:15 67 17 107/65 (79) 95 10/28/19 10:15 107/65 10/28/19 10:00 71 17 115/71 (86) 93 10/28/19 09:00 72 20 109/64 (79) 98 10/28/19 08:11 71 10/28/19 08:00 98.0 71 18 124/64 (84) 100 10/28/19 08:00 Room Air 10/28/19 07:00 62 19 111/61 (78) 98 10/28/19 06:00 59 17 111/70 (84) 99 10/28/19 05:00 71 17 81/49 (60) 98 10/28/19 04:00 Room Air 10/28/19 04:00 63 10/28/19 04:00 97.7 65 14 101/67 (78) 97 10/28/19 03:00 61 18 116/61 (79) 99 10/28/19 02:00 62 16 91/54 (66) 95 10/28/19 01:00 59 17 108/67 (81) 100 10/28/19 00:00 76 10/28/19 00:00 Room Air 10/28/19 00:00 98.4 62 14 103/60 (74) 100 10/27/19 23:15 70 16 98/59 (72) 99 10/27/19 23:00 72 14 89/63 (72) 98 10/27/19 22:00 75 21 94/61 (72) 99 10/27/19 21:00 72 17 118/64 (82) 94 10/27/19 20:00 Room Air 10/27/19 20:00 97.6 62 16 141/67 (91) 100 10/27/19 20:00 64 10/27/19 19:00 65 14 118/58 (78) 99 10/27/19 18:00 63 15 100/60 (73) 100 10/27/19 17:00 63 17 114/62 (79) 95 Intake and Output 10/27/19 10/28/19 19:00 07:00 Intake Total 2639.292 ml 2554.654 ml Output Total 1955 ml 1550 ml Balance 684.292 ml 1004.654 ml Intake Oral 260 ml 360 ml IV Total 2379.292 ml 2194.654 ml Output Urine Total 1955 ml 1550 ml # Bowel Movements 2 1 Objective HEAD AND NECK: Showed no JVD.Right IJ central line. LUNGS: Coarse rhonchi. CARDIOVASCULAR: Shows regular S1 and S2 with no gallop. ABDOMEN: Soft.S/P Ileostomy EXTREMITIES: No pitting edema, however, has pressure ulcers. Carloz Estes MD Oct 28, 2019 16:57
--- NOTE | 2019-10-28 18:36 | Surgery Progress Note ---
Surgery Progress Note Subjective Symptoms: improved, tolerating diet, passing flatus Objective Last 24 Hour Vital Signs Date Time Temp Pulse Resp B/P (MAP) Pulse Ox O2 Delivery O2 Flow Rate FiO2 10/28/19 18:00 94 18 102/61 (75) 97 10/28/19 17:00 93 17 108/64 (79) 97 10/28/19 16:30 91 18 125/63 (83) 98 10/28/19 16:00 97.4 83 18 112/67 (82) 99 10/28/19 16:00 Room Air 10/28/19 15:30 84 10 114/68 (83) 99 10/28/19 15:24 82 10/28/19 15:00 89 16 127/82 (97) 97 10/28/19 14:30 90 22 107/57 (74) 97 10/28/19 14:00 88 22 102/82 (89) 97 10/28/19 13:30 91 21 102/58 (73) 97 10/28/19 13:00 80 19 95/60 (72) 97 10/28/19 12:00 Room Air 10/28/19 12:00 97.4 75 22 99/57 (71) 99 10/28/19 11:30 83 24 94/52 (66) 94 10/28/19 11:22 76 10/28/19 11:15 77 20 101/59 (73) 98 10/28/19 11:00 80 18 106/64 (78) 98 10/28/19 10:45 73 20 94/54 (67) 96 10/28/19 10:30 80 21 98/52 (67) 90 10/28/19 10:15 67 17 107/65 (79) 95 10/28/19 10:15 107/65 10/28/19 10:00 71 17 115/71 (86) 93 10/28/19 09:00 72 20 109/64 (79) 98 10/28/19 08:11 71 10/28/19 08:00 98.0 71 18 124/64 (84) 100 10/28/19 08:00 Room Air 10/28/19 07:00 62 19 111/61 (78) 98 10/28/19 06:00 59 17 111/70 (84) 99 10/28/19 05:00 71 17 81/49 (60) 98 8/15/20 04:00 Room Air 10/28/19 04:00 63 10/28/19 04:00 97.7 65 14 101/67 (78) 97 10/28/19 03:00 61 18 116/61 (79) 99 10/28/19 02:00 62 16 91/54 (66) 95 10/28/19 01:00 59 17 108/67 (81) 100 10/28/19 00:00 76 10/28/19 00:00 Room Air 10/28/19 00:00 98.4 62 14 103/60 (74) 100 10/27/19 23:15 70 16 98/59 (72) 99 10/27/19 23:00 72 14 89/63 (72) 98 10/27/19 22:00 75 21 94/61 (72) 99 10/27/19 21:00 72 17 118/64 (82) 94 10/27/19 20:00 Room Air 10/27/19 20:00 97.6 62 16 141/67 (91) 100 10/27/19 20:00 64 10/27/19 19:00 65 14 118/58 (78) 99 I&O Intake and Output 10/27/19 10/28/19 19:00 07:00 Intake Total 2639.292 ml 2554.654 ml Output Total 1955 ml 1550 ml Balance 684.292 ml 1004.654 ml Intake Oral 260 ml 360 ml IV Total 2379.292 ml 2194.654 ml Output Urine Total 1955 ml 1550 ml # Bowel Movements 2 1 Dressing: dry Wound: clean Cardiovascular: RSR Respiratory: clear Abdomen: soft, non-tender, present bowel sounds Extremities: no tenderness, no cyanosis Plan Problems: (1) Abdominal distension Assessment & Plan: abd distention soft non tender ostomy viable and reduced KUB ordered pending results improved comfortable no complaints okay for diet s tolerated There is an inferior vena cava filter in place. Bowel gas pattern is unremarkable. Considerable stool is seen in the transverse and distal colon. There is extensive pelvic deformity, with loss of the left femoral head, chronic dislocation of the left femur, and extensive pelvic deformity, particularly on the left. Adi project over the upper pelvis Impression: Possible constipation. 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 Secretary Shaped, Full Thickness Sacral Pressure Injury which extends into L ischium. (L)15.4cm x (W)18cm x (D)2.4cm, Undermining clockwise 10-2 by 7.7cm @ 11o'clock. Base of wound is moist,pink with scattered slough at base of wound. Bone is palpable at the Base. No odor or exudate noted. Scattered partial thickness wounds and Serous filled blisters noted to R trochanteric /R Hip areas. Historical scar noted to L groin, L Hip L Buttocks. Bony protrusion noted at L Hip. Full thickness Pressure Injury R Ischium(L)5.4cm x(W)6.9cm x (D)1.8cm, Undermining clockwise 1-4 by 2.7cm @2o'clock, Tunneling@7o'clock 2.9cm. Base of wound is moist pink with scattered slough. Scattered slough noted along borders. NO odor or exudate noted. Stable dry eschar noted to medial R knee 0.7cm x (W)0.4cm. Periwound is erythematous and indurated. No elevation in skin temp noted. L heel has shaved appearance secondary to Hx of Pressure Injuries. Base of heel is pale pink. Bone is palpable. Small area of slough noted within compromised area(L)0.6cm x (W)0.8cm. L Heel Also has shaved appearance with hypertrophic scarring. Base of compromised area is pale pink, Bone is palpable, with scattered loose, dry and scaly skin. Tx.Plan: Cleanse Sacral Wound and R Ischial wounds with Dakin's 0.125% gian. Loosely pack wounds with Hydrogel impregnated Kerlix. Apply Moisture Barrier Paste periwound. Cover with ABD Pads secure with Tegaderm drsg.Daily and prn. Apply Triad Paste to R Hip/R trochanteric areas.Cover with Optifoam drsg. Change every 7 days and prn. Apply Betadine to Medial R Knee. Cover with Optifoam drsg. Change every 7 days and prn. Apply Betadine to R and L Heels. Cover each Heel with Optifoam drsgs. Change every 7 days and prn. Cover Bony Prominences as needed with Optifoam drsgs. Reposition at least every 2 hours [address] tolerated[address] Pillow between knees. Off-load heels with pillow. APM/SUMI Mattress overlay (15) SEAN (acute kidney injury) (16) Ileostomy prolapse Assessment & Plan: currently reduced but abd distended pending films Cornelius Salgado Oct 28, 2019 18:36
[2019-10-28] MEDS: Dyna-Hex 2% Top Sol 2oz TOPIC SCH (19:57)
[2019-10-28] MEDS: Desmopressin (DDAVP) Inj IV SCH (21:19)
[2019-10-29] VITALS (36 sets, daily range): BP systolic 82–133; BP diastolic 44–82
[2019-10-29] MEDS: HYDROcodone/Acetamin 5/325 tab ORAL PRN ×4 (01:18→20:36)
[2019-10-29] MEDS: clonazePAM 0.5mg tab ORAL SCH ×3 (05:15→20:31)
[2019-10-29] MEDS: Midodrine 10mg tab ORAL SCH ×3 (05:15→20:33)
[2019-10-29] MEDS: DOPamine 400mg/250ml 250 ML IV SCH (06:15)
[2019-10-29 06:30] LABS: HEMATOCRIT 21.7 % (42.0-52.0); MEAN CORPUSCULAR VOLUME 83 FL (80-99); PLATELET COUNT 372 K/UL (150-450); WHITE BLOOD COUNT 8.8 K/UL (4.8-10.8)
[2019-10-29 06:40] LABS: HEMOGLOBIN 6.6 G/DL (14.2-18.0)
[2019-10-29 06:47] LABS: ANION GAP 5 mmol/L (5-15); BLOOD UREA NITROGEN 17 mg/dL (7-18); CALCIUM 8.4 MG/DL (8.5-10.1); CARBON DIOXIDE 29 MMOL/L (21-32); CHLORIDE 101 MMOL/L (98-107); CREATININE 0.6 MG/DL (0.55-1.30); POTASSIUM 4.1 MMOL/L (3.5-5.1); SODIUM 134 MMOL/L (136-145)
[2019-10-29 06:53] LABS: PHOSPHORUS 2.9 MG/DL (2.5-4.9)
--- NOTE | 2019-10-29 07:26 | Pulmonolgy Critical Care Note ---
Critical Care - Asmt/Plan Assessment/Plan: Pulmonary CCM Progress Note Subjective ROS Limited/Unobtainable: Yes Interval Events: Looking better - on room air, HB 6.6 Constitutional: Reports: fatigue; Denies: fever HEENT: Reports: no symptoms Respiratory: Reports: no symptoms Cardiovascular: Reports: no symptoms Gastrointestinal/Abdominal: Denies: nausea, vomiting, diarrhea Genitourinary: Reports: no symptoms Psychiatric: Reports: other - NA Skin: Denies: rash Musculoskeletal: Denies: pain Allergies: Coded Allergies: No Known Allergies (Unverified , 08/15/19) Objective Vital Signs Noted General Appearance: no acute distress HEENT: normocephalic Respiratory: chest wall non-tender, lungs clear Cardiovascular: normal peripheral pulses, regular rhythm Abdomen: normal bowel sounds Extremities: no cyanosis, paraplegia Laboratory Tests Noted Assessment/Plan IMPRESSION: 1. Septic shock. 2. Complicated UTI with history of previous ESBL infection. 3. Paraplegia. 4. Sacral decubitus. 5.Anemia, TFN PRN per Hematology 6. [facility] resident. DISCUSSION: Antibiotics per ID consult Renal following PRN pressors. DVT and GI prophylaxis. I will follow carefully. Ordered Oxygen, doing well on room air at this time. Critical Care - Objective Last 24 Hour Vital Signs Date Time Temp Pulse Resp B/P (MAP) Pulse Ox O2 Delivery O2 Flow Rate FiO2 10/29/19 07:00 59 16 133/76 (95) 99 10/29/19 06:15 108/63 10/29/19 06:00 63 18 99/62 (74) 99 10/29/19 05:30 72 20 89/54 (66) 99 10/29/19 05:00 73 16 90/54 (66) 100 10/29/19 04:00 Room Air 10/29/19 04:00 77 10/29/19 04:00 97.9 69 122/66 (84) 10/29/19 03:00 67 19 93/56 (68) 97 10/29/19 02:00 70 22 91/44 (60) 98 10/29/19 01:00 74 19 98/54 (69) 100 10/29/19 00:00 98.9 78 19 103/56 (72) 99 10/29/19 00:00 77 10/29/19 00:00 Room Air 10/28/19 23:00 85 21 101/49 (66) 96 10/28/19 22:00 92 17 110/59 (76) 96 10/28/19 21:00 88 20 93/59 (70) 99 10/28/19 20:15 87 21 94/53 (67) 94 10/28/19 20:00 89 10/28/19 20:00 99.0 100 24 83/47 (59) 93 10/28/19 20:00 Room Air 10/28/19 19:00 89 18 104/53 (70) 98 10/28/19 18:00 94 18 102/61 (75) 97 10/28/19 17:00 93 17 108/64 (79) 97 10/28/19 16:30 91 18 125/63 (83) 98 10/28/19 16:00 97.4 83 18 112/67 (82) 99 10/28/19 16:00 Room Air 10/28/19 15:30 84 10 114/68 (83) 99 10/28/19 15:24 82 10/28/19 15:00 89 16 127/82 (97) 97 10/28/19 14:30 90 22 107/57 (74) 97 10/28/19 14:00 88 22 102/82 (89) 97 10/28/19 13:30 91 21 102/58 (73) 97 10/28/19 13:00 80 19 95/60 (72) 97 10/28/19 12:00 Room Air 10/28/19 12:00 97.4 75 22 99/57 (71) 99 10/28/19 11:30 83 24 94/52 (66) 94 10/28/19 11:22 76 10/28/19 11:15 77 20 101/59 (73) 98 10/28/19 11:00 80 18 106/64 (78) 98 10/28/19 10:45 73 20 94/54 (67) 96 10/28/19 10:30 80 21 98/52 (67) 90 10/28/19 10:15 67 17 107/65 (79) 95 10/28/19 10:15 107/65 10/28/19 10:00 71 17 115/71 (86) 93 10/28/19 09:00 72 20 109/64 (79) 98 10/28/19 08:11 71 10/28/19 08:00 98.0 71 18 124/64 (84) 100 10/28/19 08:00 Room Air Accucheck: 132 Critical Care - Subjective ROS Limited/Unobtainable: No Condition: stable I&O: Intake and Output 10/28/19 10/29/19 19:00 07:00 Intake Total 2515.620 ml 2335.6250 ml Output Total 1910 ml 1800 ml Balance 605.620 ml 535.6250 ml Intake Oral 390 ml 120 ml IV Total 2125.620 ml 2215.6250 ml Output Urine Total 1910 ml 1800 ml # Bowel Movements 2 1 Anthony Edwards MD Oct 29, 2019 07:26
--- NOTE | 2019-10-29 07:44 | Hematology/Onc Progress Note ---
Assessment/Plan Assessment/Plan Assessment/recs # Anemia rule out gi bleed, as well as iron deficiency --> hgb 8.2-->7.2-->7.1->6.9 --> anemia panel ordered--> cw acd --> occult blood pending --> gi eval prn --> transfuse as needed -> transfuse 2 units 10/27 # Coagulopathy with elev ptt/inr --> vitk and ffp as needed --> no bleeding noted at this time # Hypotension likely due to septic shock. Was diuresing heavily at 300 mL an hour. --> Continue Midodrine and dopamine. --> initially on IV antibiotic with vancomycin and meropenem and amikacin-->christel --> in icu, is on dopamine, pressor --> as per cards # Bradycardia. Continue dopamine. --> cards # Paraplegia. # Urinary tract infection, followed by Dr. Painting on broad-spectrum IV antibiotic. # Decubitus ulcers with sacral decubitus. # Dvt heparin sq Appreciate consultation and chandrakant RN Subjective Constitutional: Denies: no symptoms, chills, fever, malaise, weakness, other HEENT: Denies: no symptoms, eye pain, blurred vision, tearing, double vision, ear pain, ear discharge, nose pain, nose congestion, throat pain, throat swelling, mouth pain, mouth swelling, other Cardiovascular: Denies: no symptoms, chest pain, edema, irregular heart rate, lightheadedness, palpitations, syncope, other Respiratory: Denies: no symptoms, cough, shortness of breath, SOB with excertion, SOB at rest, sputum, wheezing, other Gastrointestinal/Abdominal: Denies: no symptoms, abdomen distended, abdominal pain, black stools, tarry stools, blood in stool, constipated, diarrhea, difficulty swallowing, nausea, poor appetite, poor fluid intake, rectal bleeding , vomiting, other Neurologic/Psychiatric: Denies: no symptoms, anxiety, depressed, emotional problems, headache, numbness, paresthesia, pre-existing deficit, seizure, tingling, tremors, weakness, other Endocrine: Denies: no symptoms, excessive sweating, flushing, intolerance to cold, intolerance to heat, increased hunger, increased thirst, increased urine, unexplained weight gain, unexplained weight loss, other Hematologic/Lymphatic: Denies: no symptoms, anemia, easy bleeding, easy bruising, adenopathy, other Allergies: Coded Allergies: No Known Allergies (Unverified , 08/15/19) Subjective 10/27 labs again refused this am, yesterday was low, chandrakant rn in icu 10/28 remains in icu, for 2units prbc this am, chandrakant rn, no other events Objective Objective Current Medications Medications (Trade) Dose Ordered Sig/Mya Route PRN Reason Start Time Stop Time Status Last Admin Dose Admin Acetaminophen (Tylenol) 650 mg Q4H PRN ORAL Mild Pain (Pain Scale 1-3) 10/23/19 17:30 11/22/19 17:29 10/27/19 09:00 Acetaminophen/ Hydrocodone Bitart ([place] 5/325) 1 tab Q4H PRN ORAL Moderate Pain (Pain Scale 4-6) 10/23/19 20:15 10/30/19 20:14 10/28/19 15:54 Acetaminophen/ Hydrocodone Bitart ([place] 5/325) 2 tab Q4H PRN ORAL Severe Pain (Pain Scale 7-10) 10/23/19 20:15 10/30/19 20:14 10/29/19 01:18 Ascorbic Acid (Vitamin C) 500 mg DAILY ORAL 10/24/19 09:00 11/23/19 08:59 10/28/19 08:10 Baclofen (Lioresal) 10 mg THREE TIMES A DAY ORAL 10/23/19 18:00 11/22/19 17:59 10/28/19 17:08 Chlorhexidine Gluconate (Simran-Hex 2%) 1 applic DAILY@1999 TOPIC 10/24/19 20:00 01/22/20 19:59 10/28/19 19:57 Clonazepam (KlonoPIN) 0.5 mg Q8HR ORAL 10/23/19 21:00 10/30/19 20:59 10/29/19 05:15 Desmopressin Acetate (Ddavp) 2 mcg EVERY 12 HOURS IV 10/28/19 21:00 01/26/20 20:59 10/28/19 21:19 Dextrose (Dextrose 50%) 25 ml Q30M PRN IV Hypoglycemia 10/23/19 17:30 01/21/20 17:29 Dextrose (Dextrose 50%) 50 ml Q30M PRN IV Hypoglycemia 10/23/19 17:30 01/21/20 17:29 Diphenhydramine HCl (Benadryl) 25 mg Q6H PRN ORAL Itching/Pruritis 10/23/19 17:30 11/22/19 17:29 Docusate Sodium (Colace) 100 mg EVERY 12 HOURS ORAL 10/23/19 21:00 11/22/19 20:59 10/28/19 19:59 Dopamine HCl/ Dextrose 250 ml @ 0 mls/hr Q24H IV 10/24/19 06:15 01/22/20 06:14 10/27/19 04:35 Ferrous Sulfate (Feosol) 325 mg DAILY ORAL 10/24/19 09:00 01/22/20 08:59 10/28/19 08:10 Gabapentin (Neurontin) 400 mg Q8HR ORAL 10/23/19 22:00 11/22/19 21:59 10/29/19 05:15 Heparin Sodium (Porcine) (Heparin 5000 units/ml) 5,000 units EVERY 12 HOURS SUBQ 10/24/19 09:00 12/08/19 08:59 10/28/19 08:13 Midodrine (Pro-Amatine) 10 mg EVERY 8 HOURS ORAL 10/28/19 14:00 01/21/20 17:59 10/29/19 05:15 Norepinephrine Bitartrate 250 ml @ 0 mls/hr Q24H IV 10/23/19 21:00 01/21/20 20:59 10/28/19 10:15 Ondansetron HCl (Zofran) 4 mg Q6H PRN IVP Nausea & Vomiting 10/23/19 17:30 11/22/19 17:29 Piperacillin Sod/ Tazobactam Sod 3.375 gm/Dextrose 100 ml @ 25 mls/hr EVERY 8 HOURS IVPB 10/27/19 22:00 11/01/19 21:59 10/29/19 05:16 Sodium Hypochlorite (Dakin's Quarter Strength) 1 applic DAILY TOPIC 10/25/19 09:00 11/24/19 08:59 10/28/19 08:11 Sodium Chloride 1,000 ml @ 150 mls/hr Q6H40M IV 10/26/19 11:27 9/12/20 11:26 10/29/19 06:03 Vancomycin HCl (Vanco pharmacy to dose) 1 ea DAILY PRN MISC Per rx protocol 10/27/19 18:15 11/26/19 18:14 Vancomycin HCl 1 gm/Dextrose 275 ml @ 183.708 mls/hr Q12H IVPB 10/27/19 20:00 11/01/19 19:59 10/28/19 19:59 Zinc Sulfate (Zinc Sulfate) 220 mg DAILY ORAL 10/24/19 09:00 01/22/20 08:59 10/28/19 08:10 Last 24 Hour Vital Signs Date Time Temp Pulse Resp B/P (MAP) Pulse Ox O2 Delivery O2 Flow Rate FiO2 10/29/19 07:00 59 16 133/76 (95) 99 10/29/19 06:15 108/63 10/29/19 06:00 63 18 99/62 (74) 99 10/29/19 05:30 72 20 89/54 (66) 99 10/29/19 05:00 73 16 90/54 (66) 100 10/29/19 04:00 Room Air 10/29/19 04:00 77 10/29/19 04:00 97.9 69 122/66 (84) 10/29/19 03:00 67 19 93/56 (68) 97 10/29/19 02:00 70 22 91/44 (60) 98 10/29/19 01:00 74 19 98/54 (69) 100 10/29/19 00:00 98.9 78 19 103/56 (72) 99 10/29/19 00:00 77 10/29/19 00:00 Room Air 10/28/19 23:00 85 21 101/49 (66) 96 10/28/19 22:00 92 17 110/59 (76) 96 10/28/19 21:00 88 20 93/59 (70) 99 10/28/19 20:15 87 21 94/53 (67) 94 10/28/19 20:00 89 10/28/19 20:00 99.0 100 24 83/47 (59) 93 10/28/19 20:00 Room Air 10/28/19 19:00 89 18 104/53 (70) 98 10/28/19 18:00 94 18 102/61 (75) 97 10/28/19 17:00 93 17 108/64 (79) 97 10/28/19 16:30 91 18 125/63 (83) 98 10/28/19 16:00 97.4 83 18 112/67 (82) 99 10/28/19 16:00 Room Air 10/28/19 15:30 84 10 114/68 (83) 99 10/28/19 15:24 82 10/28/19 15:00 89 16 127/82 (97) 97 10/28/19 14:30 90 22 107/57 (74) 97 10/28/19 14:00 88 22 102/82 (89) 97 10/28/19 13:30 91 21 102/58 (73) 97 10/28/19 13:00 80 19 95/60 (72) 97 10/28/19 12:00 Room Air 10/28/19 12:00 97.4 75 22 99/57 (71) 99 10/28/19 11:30 83 24 94/52 (66) 94 10/28/19 11:22 76 10/28/19 11:15 77 20 101/59 (73) 98 10/28/19 11:00 80 18 106/64 (78) 98 10/28/19 10:45 73 20 94/54 (67) 96 10/28/19 10:30 80 21 98/52 (67) 90 10/28/19 10:15 67 17 107/65 (79) 95 10/28/19 10:15 107/65 10/28/19 10:00 71 17 115/71 (86) 93 10/28/19 09:00 72 20 109/64 (79) 98 10/28/19 08:11 71 10/28/19 08:00 98.0 71 18 124/64 (84) 100 10/28/19 08:00 Room Air 10/28/19 07:00 62 19 111/61 (78) 98 10/28/19 06:00 59 17 111/70 (84) 99 10/28/19 05:00 71 17 81/49 (60) 98 10/28/19 04:00 Room Air 10/28/19 04:00 63 10/28/19 04:00 97.7 65 14 101/67 (78) 97 10/28/19 03:00 61 18 116/61 (79) 99 10/28/19 02:00 62 16 91/54 (66) 95 10/28/19 01:00 59 17 108/67 (81) 100 10/28/19 00:00 76 10/28/19 00:00 Room Air 10/28/19 00:00 98.4 62 14 103/60 (74) 100 10/27/19 23:15 70 16 98/59 (72) 99 10/27/19 23:00 72 14 89/63 (72) 98 10/27/19 22:00 75 21 94/61 (72) 99 10/27/19 21:00 72 17 118/64 (82) 94 10/27/19 20:00 Room Air 10/27/19 20:00 97.6 62 16 141/67 (91) 100 10/27/19 20:00 64 10/27/19 19:00 65 14 118/58 (78) 99 10/27/19 18:00 63 15 100/60 (73) 100 10/27/19 17:00 63 17 114/62 (79) 95 10/27/19 16:00 Room Air 10/27/19 16:00 72 10/27/19 16:00 98.8 67 17 99/67 (78) 10/27/19 15:30 66 19 104/62 (76) 10/27/19 15:19 68 22 101/66 (78) 10/27/19 15:00 70 20 108/57 (74) 10/27/19 14:30 69 20 104/66 (79) 10/27/19 14:24 69 19 108/71 (83) 10/27/19 13:30 61 21 116/67 (83) 10/27/19 13:00 63 21 104/70 (81) 10/27/19 12:31 109/70 10/27/19 12:30 75 19 90/56 (67) 10/27/19 12:07 90/56 10/27/19 12:00 Room Air 10/27/19 12:00 74 10/27/19 12:00 98.5 83 17 109/70 (83) 10/27/19 11:30 69 15 108/72 (84) 10/27/19 11:00 108/72 10/27/19 11:00 67 16 122/69 (86) 10/27/19 10:30 73 16 123/78 (93) 10/27/19 10:00 73 17 109/70 (83) 10/27/19 09:00 84 16 121/64 (83) 97 10/27/19 08:30 87 20 117/69 (85) 95 10/27/19 08:00 Room Air 10/27/19 08:00 92 19 125/72 (89) 95 10/27/19 08:00 93 Intake and Output 10/28/19 10/29/19 19:00 07:00 Intake Total 2515.620 ml 2335.6250 ml Output Total 1910 ml 1800 ml Balance 605.620 ml 535.6250 ml Intake Oral 390 ml 120 ml IV Total 2125.620 ml 2215.6250 ml Output Urine Total 1910 ml 1800 ml # Bowel Movements 2 1 Labs Test 10/26/19 08:30 10/26/19 09:20 10/27/19 03:30 10/27/19 12:00 Urine Color Pale yellow Urine Appearance Clear Urine pH 7 (4.5-8.0) Urine Specific [place] 1.005 (1.005-1.035) Urine Protein Negative (NEGATIVE) Urine Glucose (UA) Negative (NEGATIVE) Urine Ketones Negative (NEGATIVE) Urine Blood Negative (NEGATIVE) Urine Nitrite Negative (NEGATIVE) Urine Bilirubin Negative (NEGATIVE) Urine Urobilinogen Normal MG/DL (0.0-1.0) Urine Leukocyte Esterase Negative (NEGATIVE) Urine RBC 0 /HPF (0 - 0) Urine WBC 0-2 /HPF (0 - 0) Urine Squamous Epithelial Cells None /LPF (NONE/OCC) Urine Bacteria Occasional /HPF (NONE) Urine Osmolality 230 mOsm/kg (429-449) Urine Random Sodium 81 mmol/L (20-110) Urine Creatinine 5.9 MG/DL (30.0-125.0) White Blood Count 8.2 K/UL (4.8-10.8) 7.5 K/UL (4.8-10.8) Red Blood Count 2.83 M/UL (4.70-6.10) 2.79 M/UL (4.70-6.10) Hemoglobin 7.2 G/DL (14.2-18.0) 7.1 G/DL (14.2-18.0) Hematocrit 23.4 % (42.0-52.0) 22.7 % (42.0-52.0) Mean Corpuscular Volume 83 FL (80-99) 82 FL (80-99) Mean Corpuscular Hemoglobin 25.6 PG (27.0-31.0) 25.6 PG (27.0-31.0) Mean Corpuscular Hemoglobin Concent 30.9 G/DL (32.0-36.0) 31.4 G/DL (32.0-36.0) Red Cell Distribution Width 18.1 % (11.6-14.8) 18.6 % (11.6-14.8) Platelet Count 337 K/UL (150-450) 347 K/UL (150-450) Mean Platelet Volume 4.1 FL (6.5-10.1) 4.7 FL (6.5-10.1) Neutrophils (%) (Auto) % (45.0-75.0) % (45.0-75.0) Lymphocytes (%) (Auto) % (20.0-45.0) % (20.0-45.0) Monocytes (%) (Auto) % (1.0-10.0) % (1.0-10.0) Eosinophils (%) (Auto) % (0.0-3.0) % (0.0-3.0) Basophils (%) (Auto) % (0.0-2.0) % (0.0-2.0) Differential Total Cells Counted 100 Neutrophils % (Manual) 66 % (45-75) Lymphocytes % (Manual) 24 % (20-45) Monocytes % (Manual) 9 % (1-10) Eosinophils % (Manual) 1 % (0-3) Basophils % (Manual) 0 % (0-2) Band Neutrophils 0 % (0-8) Platelet Estimate Adequate Platelet Morphology Normal Hypochromasia 1+ Anisocytosis 1+ Sodium Level 138 MMOL/L (136-145) 138 MMOL/L (136-145) Potassium Level 3.3 MMOL/L (3.5-5.1) 3.1 MMOL/L (3.5-5.1) Chloride Level 103 MMOL/L (98-107) 102 MMOL/L (98-107) Carbon Dioxide Level 27 MMOL/L (21-32) 29 MMOL/L (21-32) Anion Gap 8 mmol/L (5-15) 7 mmol/L (5-15) Blood Urea Nitrogen 9 mg/dL (7-18) 13 mg/dL (7-18) Creatinine 0.4 MG/DL (0.55-1.30) 0.5 MG/DL (0.55-1.30) Estimat Glomerular Filtration Rate > 60 mL/min (>60) > 60 mL/min (>60) Glucose Level 86 MG/DL (74-106) 109 MG/DL (74-106) Calcium Level 8.0 MG/DL (8.5-10.1) 8.3 MG/DL (8.5-10.1) Phosphorus Level 3.2 MG/DL (2.5-4.9) Magnesium Level 1.3 MG/DL (1.8-2.4) Reticulocyte Count 1.8 % (0.5-2.0) Iron Level 10 ug/dL (50-175) Total Iron Binding Capacity 108 ug/dL (250-450) Percent Iron Saturation 9 % (15-50) Unsaturated Iron Binding 98 ug/dL (112-346) Ferritin 492 NG/ML (8-388) Lactate Dehydrogenase 126 U/L (81-234) Carcinoembryonic Antigen 0.9 ng/mL (0.0-4.7) Thyroid Stimulating Hormone (TSH) 0.210 uiU/mL (0.358-3.740) Test 10/29/19 06:00 White Blood Count 8.8 K/UL (4.8-10.8) Red Blood Count 2.60 M/UL (4.70-6.10) Hemoglobin 6.6 G/DL (14.2-18.0) Hematocrit 21.7 % (42.0-52.0) Mean Corpuscular Volume 83 FL (80-99) Mean Corpuscular Hemoglobin 25.3 PG (27.0-31.0) Mean Corpuscular Hemoglobin Concent 30.4 G/DL (32.0-36.0) Red Cell Distribution Width 19.0 % (11.6-14.8) Platelet Count 372 K/UL (150-450) Mean Platelet Volume 4.3 FL (6.5-10.1) Neutrophils (%) (Auto) % (45.0-75.0) Lymphocytes (%) (Auto) % (20.0-45.0) Monocytes (%) (Auto) % (1.0-10.0) Eosinophils (%) (Auto) % (0.0-3.0) Basophils (%) (Auto) % (0.0-2.0) Sodium Level 134 MMOL/L (136-145) Potassium Level 4.1 MMOL/L (3.5-5.1) Chloride Level 101 MMOL/L (98-107) Carbon Dioxide Level 29 MMOL/L (21-32) Anion Gap 5 mmol/L (5-15) Blood Urea Nitrogen 17 mg/dL (7-18) Creatinine 0.6 MG/DL (0.55-1.30) Estimat Glomerular Filtration Rate > 60 mL/min (>60) Glucose Level 96 MG/DL (74-106) Calcium Level 8.4 MG/DL (8.5-10.1) Phosphorus Level 2.9 MG/DL (2.5-4.9) Magnesium Level 1.8 MG/DL (1.8-2.4) Height (Feet): 5 Height (Inches): 7.00 Weight (Pounds): 115 Objective Physical Exam General Appearance: lethargic Lines, tubes and drains: peripheral, central line HEENT: normocephalic Neck: non-tender, normal alignment Respiratory/Chest: lungs clear Cardiovascular/Chest: normal peripheral pulses, normal rate, regular rhythm Abdomen: normal bowel sounds, non tender Martínez Capps MD Oct 29, 2019 07:44
[2019-10-29] MEDS: Docusate 100mg cap ORAL SCH ×2 (08:49→20:32)
[2019-10-29] MEDS: Zinc Sulfate 220mg ORAL SCH (08:49)
[2019-10-29] MEDS: Ascorbic Acid 500mg tab ORAL SCH (08:49)
[2019-10-29] MEDS: Vancomycin 1gm/D5W 275ml IVPB SCH ×2 (08:50)
[2019-10-29] MEDS: Desmopressin (DDAVP) Inj IV SCH ×2 (08:50→20:40)
[2019-10-29] MEDS: Heparin 5000 units/ml inj SUBQ SCH ×2 (08:50→20:35)
[2019-10-29] MEDS: Norepinephrine 4mg/NS Premix 250 ML IV SCH (08:50)
[2019-10-29] MEDS: Dakin's 0.125% Soln (Quarter Strength) 16oz TOPIC SCH (08:51)
[2019-10-29 09:05] LABS: PHOSPHORUS 3.3 MG/DL (2.5-4.9)
--- NOTE | 2019-10-29 09:36 | Diagnostic Imaging Report ---
EXAM: XR Chest, 1 View CLINICAL HISTORY: INFECT TECHNIQUE: Frontal view of the chest. COMPARISON: Chest x-ray dated 10/27/19 FINDINGS: Lungs: Persistent subsegmental atelectasis in bilateral lower lungs, not significant changed compared to the prior exam. No new consolidation is seen. Pleural space: Unremarkable. The costophrenic angles are sharp. No visible pneumothorax. Heart: Unremarkable. No cardiomegaly. Mediastinum: Unremarkable. Bones/joints: Unremarkable. Vasculature: Mild atherosclerotic calcifications are noted within the aortic arch. Tubes, lines and devices: Stable positioning of a right IJ central venous catheter with the tip in the SVC. Telemetry leads overlie the thorax. IMPRESSION: Persistent subsegmental atelectasis in bilateral lower lungs, not significantly changed compared to the prior exam.
--- NOTE | 2019-10-29 11:35 | Surgery Progress Note ---
Surgery Progress Note Subjective Symptoms: improved, tolerating diet, voiding well, passing flatus Additional Comments anemia prbc per heme Objective Last 24 Hour Vital Signs Date Time Temp Pulse Resp B/P (MAP) Pulse Ox O2 Delivery O2 Flow Rate FiO2 10/29/19 10:30 79 18 99/56 (70) 98 10/29/19 10:00 76 15 103/57 (72) 99 10/29/19 09:30 74 13 100/60 (73) 100 10/29/19 09:00 69 15 110/54 (72) 99 10/29/19 08:50 133/76 10/29/19 08:30 63 17 101/58 (72) 98 10/29/19 08:00 97.7 60 18 107/62 (77) 98 10/29/19 08:00 59 10/29/19 08:00 Room Air 10/29/19 07:00 59 16 133/76 (95) 99 10/29/19 06:15 108/63 10/29/19 06:00 63 18 99/62 (74) 99 10/29/19 05:30 72 20 89/54 (66) 99 10/29/19 05:00 73 16 90/54 (66) 100 10/29/19 04:00 Room Air 10/29/19 04:00 77 10/29/19 04:00 97.9 69 122/66 (84) 10/29/19 03:00 67 19 93/56 (68) 97 10/29/19 02:00 70 22 91/44 (60) 98 10/29/19 01:00 74 19 98/54 (69) 100 10/29/19 00:00 98.9 78 19 103/56 (72) 99 10/29/19 00:00 77 10/29/19 00:00 Room Air 10/28/19 23:00 85 21 101/49 (66) 96 10/28/19 22:00 92 17 110/59 (76) 96 10/28/19 21:00 88 20 93/59 (70) 99 10/28/19 20:15 87 21 94/53 (67) 94 10/28/19 20:00 89 10/28/19 20:00 99.0 100 24 83/47 (59) 93 10/28/19 20:00 Room Air 10/28/19 19:00 89 18 104/53 (70) 98 10/28/19 18:00 94 18 102/61 (75) 97 10/28/19 17:00 93 17 108/64 (79) 97 10/28/19 16:30 91 18 125/63 (83) 98 10/28/19 16:00 97.4 83 18 112/67 (82) 99 10/28/19 16:00 Room Air 10/28/19 15:30 84 10 114/68 (83) 99 10/28/19 15:24 82 10/28/19 15:00 89 16 127/82 (97) 97 10/28/19 14:30 90 22 107/57 (74) 97 10/28/19 14:00 88 22 102/82 (89) 97 10/28/19 13:30 91 21 102/58 (73) 97 10/28/19 13:00 80 19 95/60 (72) 97 10/28/19 12:00 Room Air 10/28/19 12:00 97.4 75 22 99/57 (71) 99 I&O Intake and Output 10/28/19 10/29/19 19:00 07:00 Intake Total 2515.620 ml 2335.6250 ml Output Total 1910 ml 1800 ml Balance 605.620 ml 535.6250 ml Intake Oral 390 ml 120 ml IV Total 2125.620 ml 2215.6250 ml Output Urine Total 1910 ml 1800 ml # Bowel Movements 2 1 Cardiovascular: RSR Respiratory: decreased breath sounds Abdomen: soft, non-tender, absent bowel sounds Extremities: no edema, no tenderness, no cyanosis Laboratory Tests Test 10/29/19 06:00 10/29/19 07:10 10/29/19 08:35 White Blood Count 8.8 K/UL (4.8-10.8) Red Blood Count 2.60 M/UL (4.70-6.10) L Hemoglobin 6.6 G/DL (14.2-18.0) *L Hematocrit 21.7 % (42.0-52.0) L Mean Corpuscular Volume 83 FL (80-99) Mean Corpuscular Hemoglobin 25.3 PG (27.0-31.0) L Mean Corpuscular Hemoglobin Concent 30.4 G/DL (32.0-36.0) L Red Cell Distribution Width 19.0 % (11.6-14.8) H Platelet Count 372 K/UL (150-450) Mean Platelet Volume 4.3 FL (6.5-10.1) L Neutrophils (%) (Auto) % (45.0-75.0) Lymphocytes (%) (Auto) % (20.0-45.0) Monocytes (%) (Auto) % (1.0-10.0) Eosinophils (%) (Auto) % (0.0-3.0) Basophils (%) (Auto) % (0.0-2.0) Differential Total Cells Counted 100 Neutrophils % (Manual) 54 % (45-75) Lymphocytes % (Manual) 38 % (20-45) Monocytes % (Manual) 5 % (1-10) Eosinophils % (Manual) 2 % (0-3) Basophils % (Manual) 1 % (0-2) Band Neutrophils 0 % (0-8) Platelet Estimate Adequate Platelet Morphology Normal Hypochromasia 4+ Anisocytosis 2+ Sodium Level 134 MMOL/L (136-145) L Potassium Level 4.1 MMOL/L (3.5-5.1) Chloride Level 101 MMOL/L (98-107) Carbon Dioxide Level 29 MMOL/L (21-32) Anion Gap 5 mmol/L (5-15) Blood Urea Nitrogen 17 mg/dL (7-18) Creatinine 0.6 MG/DL (0.55-1.30) Estimat Glomerular Filtration Rate > 60 mL/min (>60) Glucose Level 96 MG/DL (74-106) Calcium Level 8.4 MG/DL (8.5-10.1) L Phosphorus Level 2.9 MG/DL (2.5-4.9) 3.3 MG/DL (2.5-4.9) Magnesium Level 1.8 MG/DL (1.8-2.4) 1.7 MG/DL (1.8-2.4) L Vancomycin Level Trough 14.0 ug/mL (5.0-12.0) H Activated Partial Thromboplast Time 36 SEC (23-33) H Plan Problems: (1) Abdominal distension Assessment & Plan: abd distention soft non tender ostomy viable and reduced KUB ordered pending results improved comfortable no complaints okay for diet s tolerated There is an inferior vena cava filter in place. Bowel gas pattern is unremarkable. Considerable stool is seen in the transverse and distal colon. There is extensive pelvic deformity, with loss of the left femoral head, chronic dislocation of the left femur, and extensive pelvic deformity, particularly on the left. [place] project over the upper pelvis Impression: Possible constipation. 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 [place] Shaped, Full Thickness Sacral Pressure Injury which extends into L ischium. (L)15.4cm x (W)18cm x (D)2.4cm, Undermining clockwise 10-2 by 7.7cm @ 11o'clock. Base of wound is moist,pink with scattered slough at base of wound. Bone is palpable at the Base. No odor or exudate noted. Scattered partial thickness wounds and Serous filled blisters noted to R trochanteric /R Hip areas. Historical scar noted to L groin, L Hip L Buttocks. Bony protrusion noted at L Hip. Full thickness Pressure Injury R Ischium(L)5.4cm x(W)6.9cm x (D)1.8cm, Undermining clockwise 1-4 by 2.7cm @2o'clock, Tunneling@7o'clock 2.9cm. Base of wound is moist pink with scattered slough. Scattered slough noted along borders. NO odor or exudate noted. Stable dry eschar noted to medial R knee 0.7cm x (W)0.4cm. Periwound is erythematous and indurated. No elevation in skin temp noted. L heel has shaved appearance secondary to Hx of Pressure Injuries. Base of heel is pale pink. Bone is palpable. Small area of slough noted within compromised area(L)0.6cm x (W)0.8cm. L Heel Also has shaved appearance with hypertrophic scarring. Base of compromised area is pale pink, Bone is palpable, with scattered loose, dry and scaly skin. Tx.Plan: Cleanse Sacral Wound and R Ischial wounds with Dakin's 0.125% gian. Loosely pack wounds with Hydrogel impregnated Kerlix. Apply Moisture Barrier Paste periwound. Cover with ABD Pads secure with Tegaderm drsg.Daily and prn. Apply Triad Paste to R Hip/R trochanteric areas.Cover with Optifoam drsg. Change every 7 days and prn. Apply Betadine to Medial R Knee. Cover with Optifoam drsg. Change every 7 days and prn. Apply Betadine to R and L Heels. Cover each Heel with Optifoam drsgs. Change every 7 days and prn. Cover Bony Prominences as needed with Optifoam drsgs. Reposition at least every 2 hours [address] tolerated[address] Pillow between knees. Off-load heels with pillow. 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
--- NOTE | 2019-10-29 13:11 | General Progress Note ---
Assessment/Plan Assessment/Plan: '59 year old man who presents from LVT with weakness, encephalopathy, concern for septic shock, possible from UTI vs infected sacral pressure ulcer #Septic shock #Proteus UTI #Acute metabolic encephalopathy #Paraplegia #Sacral pressure ulcer, present on admit -continue ICU care -Wean off vasopressors, hopefully after 2 units RBC today can wean off -off vanco and amikacin, continue meropenem -Spoke with surgery, sacral pressure ulcer does not appear to be infected -Local wound care and offloading #Sinus Bradycardia to 44 -continue telemetry -EP following #Hypokalemia -refusing labs #Anemia, acute on chronic -2 units RBC transfusion today -Hematology following VTE PPx HSQ Full Code I spent 75 minutes on this patient's case, and 38 mins was dedicated to critical care Critical Care Services performed include: Telemetry Review Hemodynamic measurement interpretation Laboratory data review and interpretation Radiology image review and interpretation Discussion of patient's care with ICU team, ICU Nursing staff and/or consulting services Subjective Date patient seen: Oct 29, 2019 Time patient seen: 11:00 ROS Limited/Unobtainable: Yes Cardiovascular: Reports: chest pain Respiratory: Reports: cough, shortness of breath Allergies: Coded Allergies: No Known Allergies (Unverified , 08/15/19) Subjective Follow up for septic shock, UTI acute metabolic encephalopathy Remains on low dose Levophed Hb down to 6.6, two units RBC ordered Objective Last 24 Hour Vital Signs Date Time Temp Pulse Resp B/P (MAP) Pulse Ox O2 Delivery O2 Flow Rate FiO2 10/29/19 12:00 97.8 67 17 119/66 (83) 97 10/29/19 12:00 Room Air 10/29/19 11:30 79 17 123/55 (77) 98 10/29/19 11:00 72 18 93/53 (66) 98 10/29/19 10:30 79 18 99/56 (70) 98 10/29/19 10:00 76 15 103/57 (72) 99 10/29/19 09:30 74 13 100/60 (73) 100 10/29/19 09:00 69 15 110/54 (72) 99 10/29/19 08:50 133/76 10/29/19 08:30 63 17 101/58 (72) 98 10/29/19 08:00 97.7 60 18 107/62 (77) 98 8/16/20 08:00 59 10/29/19 08:00 Room Air 10/29/19 07:00 59 16 133/76 (95) 99 10/29/19 06:15 108/63 10/29/19 06:00 63 18 99/62 (74) 99 10/29/19 05:30 72 20 89/54 (66) 99 10/29/19 05:00 73 16 90/54 (66) 100 10/29/19 04:00 Room Air 10/29/19 04:00 77 10/29/19 04:00 97.9 69 122/66 (84) 10/29/19 03:00 67 19 93/56 (68) 97 10/29/19 02:00 70 22 91/44 (60) 98 10/29/19 01:00 74 19 98/54 (69) 100 10/29/19 00:00 98.9 78 19 103/56 (72) 99 10/29/19 00:00 77 10/29/19 00:00 Room Air 10/28/19 23:00 85 21 101/49 (66) 96 10/28/19 22:00 92 17 110/59 (76) 96 10/28/19 21:00 88 20 93/59 (70) 99 10/28/19 20:15 87 21 94/53 (67) 94 10/28/19 20:00 89 10/28/19 20:00 99.0 100 24 83/47 (59) 93 10/28/19 20:00 Room Air 10/28/19 19:00 89 18 104/53 (70) 98 10/28/19 18:00 94 18 102/61 (75) 97 10/28/19 17:00 93 17 108/64 (79) 97 10/28/19 16:30 91 18 125/63 (83) 98 10/28/19 16:00 97.4 83 18 112/67 (82) 99 10/28/19 16:00 Room Air 10/28/19 15:30 84 10 114/68 (83) 99 10/28/19 15:24 82 10/28/19 15:00 89 16 127/82 (97) 97 10/28/19 14:30 90 22 107/57 (74) 97 10/28/19 14:00 88 22 102/82 (89) 97 10/28/19 13:30 91 21 102/58 (73) 97 Intake and Output 10/28/19 10/29/19 19:00 07:00 Intake Total 2515.620 ml 2335.6250 ml Output Total 1910 ml 1800 ml Balance 605.620 ml 535.6250 ml Intake Oral 390 ml 120 ml IV Total 2125.620 ml 2215.6250 ml Output Urine Total 1910 ml 1800 ml # Bowel Movements 2 1 Laboratory Tests 10/29/19 06:00: White Blood Count 8.8, Red Blood Count 2.60L, Hemoglobin 6.6*L, Hematocrit 21.7L , Mean Corpuscular Volume 83, Mean Corpuscular Hemoglobin 25.3L, Mean Corpuscular Hemoglobin Concent 30.4L, Red Cell Distribution Width 19.0H, Platelet Count 372, Mean Platelet Volume 4.3L, Neutrophils (%) (Auto) , Lymphocytes (%) (Auto) , Monocytes (%) (Auto) , Eosinophils (%) (Auto) , Basophils (%) (Auto) , Differential Total Cells Counted 100, Neutrophils % ( Manual) 54, Lymphocytes % (Manual) 38, Monocytes % (Manual) 5, Eosinophils % ( Manual) 2, Basophils % (Manual) 1, Band Neutrophils 0, Platelet Estimate Adequate, Platelet Morphology Normal, Hypochromasia 4+, Anisocytosis 2+, Sodium Level 134L, Potassium Level 4.1, Chloride Level 101, Carbon Dioxide Level 29, Anion Gap 5, Blood Urea Nitrogen 17, Creatinine 0.6, Estimat Glomerular Filtration Rate > 60, Glucose Level 96, Calcium Level 8.4L, Phosphorus Level 2.9 , Magnesium Level 1.8 10/29/19 07:10: Vancomycin Level Trough 14.0H 10/29/19 08:35: Phosphorus Level 3.3, Magnesium Level 1.7L, Activated Partial Thromboplast Time 36H Height (Feet): 5 Height (Inches): 7.00 Weight (Pounds): 115 General Appearance: no apparent distress, alert Neck: normal alignment, supple Cardiovascular: normal rate, regular rhythm Respiratory/Chest: lungs clear, normal breath sounds John Tejada MD Oct 29, 2019 13:11
--- NOTE | 2019-10-29 14:22 | Cardiac Electrophysiology PN ---
Assessment/Plan Assessment/Plan 1. Septic shock. On Midodrine, Levophed and IV antibiotic 2. Bradycardia. Resolved. 3. Paraplegia. 4. Urinary tract infection, followed by Dr. Painting on broad-spectrum IV antibiotic. 5. Decubitus ulcers with sacral decubitus. 6. S/P Ileostomy/ 7. Polyuria, DI vs DOpamine effect. Got DDAVP. On Levophed as it potentially may cause diuresis DW Dr. Lynch Subjective Subjective Alert in NAD in ICU. On Levo 4 Mcg and Midodrine. RN at bedside. Getting 2 PRBC for Hb 6.8 Objective Last 24 Hour Vital Signs Date Time Temp Pulse Resp B/P (MAP) Pulse Ox O2 Delivery O2 Flow Rate FiO2 10/29/19 12:00 97.8 67 17 119/66 (83) 97 10/29/19 12:00 Room Air 10/29/19 11:30 79 17 123/55 (77) 98 10/29/19 11:00 72 18 93/53 (66) 98 10/29/19 10:30 79 18 99/56 (70) 98 10/29/19 10:00 76 15 103/57 (72) 99 10/29/19 09:30 74 13 100/60 (73) 100 10/29/19 09:00 69 15 110/54 (72) 99 10/29/19 08:50 133/76 10/29/19 08:30 63 17 101/58 (72) 98 10/29/19 08:00 97.7 60 18 107/62 (77) 98 10/29/19 08:00 59 10/29/19 08:00 Room Air 10/29/19 07:00 59 16 133/76 (95) 99 10/29/19 06:15 108/63 10/29/19 06:00 63 18 99/62 (74) 99 10/29/19 05:30 72 20 89/54 (66) 99 10/29/19 05:00 73 16 90/54 (66) 100 10/29/19 04:00 Room Air 10/29/19 04:00 77 10/29/19 04:00 97.9 69 122/66 (84) 10/29/19 03:00 67 19 93/56 (68) 97 10/29/19 02:00 70 22 91/44 (60) 98 10/29/19 01:00 74 19 98/54 (69) 100 10/29/19 00:00 98.9 78 19 103/56 (72) 99 10/29/19 00:00 77 10/29/19 00:00 Room Air 10/28/19 23:00 85 21 101/49 (66) 96 10/28/19 22:00 92 17 110/59 (76) 96 10/28/19 21:00 88 20 93/59 (70) 99 10/28/19 20:15 87 21 94/53 (67) 94 10/28/19 20:00 89 10/28/19 20:00 99.0 100 24 83/47 (59) 93 10/28/19 20:00 Room Air 10/28/19 19:00 89 18 104/53 (70) 98 10/28/19 18:00 94 18 102/61 (75) 97 10/28/19 17:00 93 17 108/64 (79) 97 10/28/19 16:30 91 18 125/63 (83) 98 10/28/19 16:00 97.4 83 18 112/67 (82) 99 10/28/19 16:00 Room Air 10/28/19 15:30 84 10 114/68 (83) 99 10/28/19 15:24 82 10/28/19 15:00 89 16 127/82 (97) 97 10/28/19 14:30 90 22 107/57 (74) 97 Intake and Output 10/28/19 10/29/19 19:00 07:00 Intake Total 2515.620 ml 2335.6250 ml Output Total 1910 ml 1800 ml Balance 605.620 ml 535.6250 ml Intake Oral 390 ml 120 ml IV Total 2125.620 ml 2215.6250 ml Output Urine Total 1910 ml 1800 ml # Bowel Movements 2 1 Laboratory Tests Test 10/29/19 06:00 10/29/19 07:10 10/29/19 08:35 White Blood Count 8.8 K/UL (4.8-10.8) Red Blood Count 2.60 M/UL (4.70-6.10) L Hemoglobin 6.6 G/DL (14.2-18.0) *L Hematocrit 21.7 % (42.0-52.0) L Mean Corpuscular Volume 83 FL (80-99) Mean Corpuscular Hemoglobin 25.3 PG (27.0-31.0) L Mean Corpuscular Hemoglobin Concent 30.4 G/DL (32.0-36.0) L Red Cell Distribution Width 19.0 % (11.6-14.8) H Platelet Count 372 K/UL (150-450) Mean Platelet Volume 4.3 FL (6.5-10.1) L Neutrophils (%) (Auto) % (45.0-75.0) Lymphocytes (%) (Auto) % (20.0-45.0) Monocytes (%) (Auto) % (1.0-10.0) Eosinophils (%) (Auto) % (0.0-3.0) Basophils (%) (Auto) % (0.0-2.0) Differential Total Cells Counted 100 Neutrophils % (Manual) 54 % (45-75) Lymphocytes % (Manual) 38 % (20-45) Monocytes % (Manual) 5 % (1-10) Eosinophils % (Manual) 2 % (0-3) Basophils % (Manual) 1 % (0-2) Band Neutrophils 0 % (0-8) Platelet Estimate Adequate Platelet Morphology Normal Hypochromasia 4+ Anisocytosis 2+ Sodium Level 134 MMOL/L (136-145) L Potassium Level 4.1 MMOL/L (3.5-5.1) Chloride Level 101 MMOL/L (98-107) Carbon Dioxide Level 29 MMOL/L (21-32) Anion Gap 5 mmol/L (5-15) Blood Urea Nitrogen 17 mg/dL (7-18) Creatinine 0.6 MG/DL (0.55-1.30) Estimat Glomerular Filtration Rate > 60 mL/min (>60) Glucose Level 96 MG/DL (74-106) Calcium Level 8.4 MG/DL (8.5-10.1) L Phosphorus Level 2.9 MG/DL (2.5-4.9) 3.3 MG/DL (2.5-4.9) Magnesium Level 1.8 MG/DL (1.8-2.4) 1.7 MG/DL (1.8-2.4) L Vancomycin Level Trough 14.0 ug/mL (5.0-12.0) H Activated Partial Thromboplast Time 36 SEC (23-33) H Objective HEAD AND NECK: No JVD. Right IJ central line. LUNGS: Coarse rhonchi. CARDIOVASCULAR: Regular S1 and S2 with no gallop. ABDOMEN: Soft.S/P Ileostomy EXTREMITIES: No pitting edema, however, has pressure ulcers. Carloz Estes MD Oct 29, 2019 14:22
--- NOTE | 2019-10-29 14:26 | Nephrology Progress Note ---
Assessment/Plan Plan #Polyuria - r/o DI vs dopamine effect??- however sodium remains in normal range #Shock #UTI # infected sacral pressure ulcer #Acute metabolic encephalopathy #Paraplegia #Sacral pressure ulcer #Hypokalemia #Anemia - continue NS hydration - increased NS to 150 cc/hr - replete mag and K - desmopressin 2mcg IV BID - wean off dopamine as tolerated - continue midodrine 10 TID - antibiotics per ID - continue antibiotic to maintain MAP > 65 - monitor lytes - monitor for vanoc toxicity - avoid nephrotoxins - daily weights - strict I&Os time spent 70 min- greater than 50% on care coordination and counseling Subjective ROS Limited/Unobtainable: Yes Subjective UOP 3700 yesterday hemoglobin 6.6 getting one unit of prbc mag 1.7 will continue with desmopressin Objective Objective Last 24 Hour Vital Signs Date Time Temp Pulse Resp B/P (MAP) Pulse Ox O2 Delivery O2 Flow Rate FiO2 10/29/19 12:00 97.8 67 17 119/66 (83) 97 10/29/19 12:00 Room Air 10/29/19 11:30 79 17 123/55 (77) 98 10/29/19 11:00 72 18 93/53 (66) 98 10/29/19 10:30 79 18 99/56 (70) 98 10/29/19 10:00 76 15 103/57 (72) 99 10/29/19 09:30 74 13 100/60 (73) 100 10/29/19 09:00 69 15 110/54 (72) 99 10/29/19 08:50 133/76 10/29/19 08:30 63 17 101/58 (72) 98 10/29/19 08:00 97.7 60 18 107/62 (77) 98 10/29/19 08:00 59 10/29/19 08:00 Room Air 10/29/19 07:00 59 16 133/76 (95) 99 10/29/19 06:15 108/63 10/29/19 06:00 63 18 99/62 (74) 99 10/29/19 05:30 72 20 89/54 (66) 99 10/29/19 05:00 73 16 90/54 (66) 100 10/29/19 04:00 Room Air 10/29/19 04:00 77 10/29/19 04:00 97.9 69 122/66 (84) 10/29/19 03:00 67 19 93/56 (68) 97 10/29/19 02:00 70 22 91/44 (60) 98 10/29/19 01:00 74 19 98/54 (69) 100 10/29/19 00:00 98.9 78 19 103/56 (72) 99 10/29/19 00:00 77 10/29/19 00:00 Room Air 10/28/19 23:00 85 21 101/49 (66) 96 10/28/19 22:00 92 17 110/59 (76) 96 10/28/19 21:00 88 20 93/59 (70) 99 10/28/19 20:15 87 21 94/53 (67) 94 10/28/19 20:00 89 10/28/19 20:00 99.0 100 24 83/47 (59) 93 10/28/19 20:00 Room Air 10/28/19 19:00 89 18 104/53 (70) 98 10/28/19 18:00 94 18 102/61 (75) 97 10/28/19 17:00 93 17 108/64 (79) 97 10/28/19 16:30 91 18 125/63 (83) 98 10/28/19 16:00 97.4 83 18 112/67 (82) 99 10/28/19 16:00 Room Air 10/28/19 15:30 84 10 114/68 (83) 99 10/28/19 15:24 82 10/28/19 15:00 89 16 127/82 (97) 97 10/28/19 14:30 90 22 107/57 (74) 97 Intake and Output 10/28/19 10/29/19 19:00 07:00 Intake Total 2515.620 ml 2335.6250 ml Output Total 1910 ml 1800 ml Balance 605.620 ml 535.6250 ml Intake Oral 390 ml 120 ml IV Total 2125.620 ml 2215.6250 ml Output Urine Total 1910 ml 1800 ml # Bowel Movements 2 1 Laboratory Tests 10/29/19 06:00: White Blood Count 8.8, Red Blood Count 2.60L, Hemoglobin 6.6*L, Hematocrit 21.7L , Mean Corpuscular Volume 83, Mean Corpuscular Hemoglobin 25.3L, Mean Corpuscular Hemoglobin Concent 30.4L, Red Cell Distribution Width 19.0H, Platelet Count 372, Mean Platelet Volume 4.3L, Neutrophils (%) (Auto) , Lymphocytes (%) (Auto) , Monocytes (%) (Auto) , Eosinophils (%) (Auto) , Basophils (%) (Auto) , Differential Total Cells Counted 100, Neutrophils % ( Manual) 54, Lymphocytes % (Manual) 38, Monocytes % (Manual) 5, Eosinophils % ( Manual) 2, Basophils % (Manual) 1, Band Neutrophils 0, Platelet Estimate Adequate, Platelet Morphology Normal, Hypochromasia 4+, Anisocytosis 2+, Sodium Level 134L, Potassium Level 4.1, Chloride Level 101, Carbon Dioxide Level 29, Anion Gap 5, Blood Urea Nitrogen 17, Creatinine 0.6, Estimat Glomerular Filtration Rate > 60, Glucose Level 96, Calcium Level 8.4L, Phosphorus Level 2.9 , Magnesium Level 1.8 10/29/19 07:10: Vancomycin Level Trough 14.0H 10/29/19 08:35: Phosphorus Level 3.3, Magnesium Level 1.7L, Activated Partial Thromboplast Time 36H Height (Feet): 5 Height (Inches): 7.00 Weight (Pounds): 115 Sienna Georges M.D. Oct 29, 2019 14:26
--- NOTE | 2019-10-29 16:10 | Infectious Diseases Prog Note ---
Assessment/Plan Assessment/Plan ASSESSMENT AND PLAN: 1. sepsis, shock, proteus uti, esbl e.coli uti, possible aspiration pna/hcap vs cap, sacral wound - ? infected, mrsa and vre colonization - change to meropenem and vancomycin, day # 6 antibiotics - monitor labs and chest x-ray - clinically improved, chest x-ray improved - remains on pressors 2. ICU care. 3. Sacral wound -wound mostly clean, management per surgery 4. Ostomy malfunction - per surgery 5. Hypertension. 6. Paraplegia. 7. Anemia. 8. History of decubitus ulcer, rule out infection. Infectious diseases is following. The patient on antibiotics. 9. Hypertension treatment per primary care team. 10. Continue treatment per primary consultants. 11. No known drug allergies. 12. Social history is negative. 13. Family history is noncontributory. 14. MAR was noted. 15. Case discussed with RN. Subjective Constitutional: Denies: fever HEENT: Denies: congestion Respiratory: Denies: shortness of breath Cardiovascular: Denies: chest pain Gastrointestinal/Abdominal: Denies: nausea, vomiting, diarrhea Genitourinary: Reports: other - + Neurologic: Denies: headache Psychiatric: Denies: depression Skin: Denies: rash Hematologic: Denies: bleeding Musculoskeletal: Denies: pain Allergies: Coded Allergies: No Known Allergies (Unverified , 08/15/19) Objective Last 24 Hour Vital Signs Date Time Temp Pulse Resp B/P (MAP) Pulse Ox O2 Delivery O2 Flow Rate FiO2 10/29/19 15:39 97.8 10/29/19 15:00 70 17 112/63 (79) 98 10/29/19 14:30 71 21 107/63 (78) 96 10/29/19 14:00 73 18 120/52 (74) 97 10/29/19 13:30 73 19 111/58 (75) 98 10/29/19 13:00 78 20 121/67 (85) 99 10/29/19 12:00 97.8 67 17 119/66 (83) 97 10/29/19 12:00 Room Air 10/29/19 12:00 66 10/29/19 11:30 79 17 123/55 (77) 98 10/29/19 11:00 72 18 93/53 (66) 98 10/29/19 10:30 79 18 99/56 (70) 98 10/29/19 10:00 76 15 103/57 (72) 99 10/29/19 09:30 74 13 100/60 (73) 100 10/29/19 09:00 69 15 110/54 (72) 99 10/29/19 08:50 133/76 10/29/19 08:30 63 17 101/58 (72) 98 10/29/19 08:00 97.7 60 18 107/62 (77) 98 10/29/19 08:00 59 10/29/19 08:00 Room Air 10/29/19 07:00 59 16 133/76 (95) 99 10/29/19 06:15 108/63 10/29/19 06:00 63 18 99/62 (74) 99 10/29/19 05:30 72 20 89/54 (66) 99 10/29/19 05:00 73 16 90/54 (66) 100 10/29/19 04:00 Room Air 10/29/19 04:00 77 10/29/19 04:00 97.9 69 122/66 (84) 10/29/19 03:00 67 19 93/56 (68) 97 10/29/19 02:00 70 22 91/44 (60) 98 10/29/19 01:00 74 19 98/54 (69) 100 10/29/19 00:00 98.9 78 19 103/56 (72) 99 10/29/19 00:00 77 10/29/19 00:00 Room Air 10/28/19 23:00 85 21 101/49 (66) 96 10/28/19 22:00 92 17 110/59 (76) 96 10/28/19 21:00 88 20 93/59 (70) 99 10/28/19 20:15 87 21 94/53 (67) 94 10/28/19 20:00 89 10/28/19 20:00 99.0 100 24 83/47 (59) 93 10/28/19 20:00 Room Air 10/28/19 19:00 89 18 104/53 (70) 98 10/28/19 18:00 94 18 102/61 (75) 97 10/28/19 17:00 93 17 108/64 (79) 97 10/28/19 16:30 91 18 125/63 (83) 98 Height (Feet): 5 Height (Inches): 7.00 Weight (Pounds): 115 General Appearance: no acute distress HEENT: normocephalic, atraumatic, anicteric, mucous membranes moist Respiratory/Chest: lungs clear, normal breath sounds, no respiratory distress, no accessory muscle use Cardiovascular: normal rate, regular rhythm, no gallop/murmur, no JVD Abdomen: normal bowel sounds, soft, non tender, no organomegaly, non distended Genitourinary: other - + donohue Extremities: no cyanosis Skin: no rash 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 There is some atelectasis at the left lung base as well. Right jugular central venous catheter remains. The heart size is normal. Impression: New/increased bilateral basilar infiltrates, since prior study 2019 Chest x-ray - 10/27/19 - Procedure: XRAY Chest 1v Indication: Shortness of breath Technique: One view of the chest Comparison: 10/25/2019 Findings: There is atelectasis possibly some focal consolidation at the right lung base. Atelectatic changes previously demonstrated at the left lung base have largely cleared. Right jugular central venous catheter remains. The heart size is normal. Impression: Improving left basilar atelectasis. Otherwise little record changer 2 days findings as noted Chest x-ray - 10/29/19 - FINDINGS: Lungs: Persistent subsegmental atelectasis in bilateral lower lungs, not significant changed compared to the prior exam. No new consolidation is seen. Pleural space: Unremarkable. The costophrenic angles are sharp. No visible pneumothorax. Heart: Unremarkable. No cardiomegaly. Mediastinum: Unremarkable. Bones/joints: Unremarkable. Vasculature: Mild atherosclerotic calcifications are noted within the aortic arch. Tubes, lines and devices: Stable positioning of a right IJ central venous catheter with the tip in the SVC. Telemetry leads overlie the thorax. IMPRESSION: Persistent subsegmental atelectasis in bilateral lower lungs, not significantly changed compared to the prior exam. Microbiology Date/Time Source Procedure Growth Status 10/23/19 15:30 Blood Blood Culture - Final NO GROWTH AFTER 5 DAYS Complete 10/23/19 18:55 Nasal Nares MRSA Culture - Final Staphylococcus Aureus - Mrsa Complete 10/23/19 15:13 Urine,Clean Catch Urine Culture - Final Proteus Mirabilis Escherichia Coli - Esbl Complete 10/23/19 18:55 Rectum - Final NO CARBAPENEM-RESISTANT ENTEROBACTERI... Complete Laboratory Tests Test 10/29/19 06:00 10/29/19 07:10 10/29/19 08:35 White Blood Count 8.8 K/UL (4.8-10.8) Red Blood Count 2.60 M/UL (4.70-6.10) L Hemoglobin 6.6 G/DL (14.2-18.0) *L Hematocrit 21.7 % (42.0-52.0) L Mean Corpuscular Volume 83 FL (80-99) Mean Corpuscular Hemoglobin 25.3 PG (27.0-31.0) L Mean Corpuscular Hemoglobin Concent 30.4 G/DL (32.0-36.0) L Red Cell Distribution Width 19.0 % (11.6-14.8) H Platelet Count 372 K/UL (150-450) Mean Platelet Volume 4.3 FL (6.5-10.1) L Neutrophils (%) (Auto) % (45.0-75.0) Lymphocytes (%) (Auto) % (20.0-45.0) Monocytes (%) (Auto) % (1.0-10.0) Eosinophils (%) (Auto) % (0.0-3.0) Basophils (%) (Auto) % (0.0-2.0) Differential Total Cells Counted 100 Neutrophils % (Manual) 54 % (45-75) Lymphocytes % (Manual) 38 % (20-45) Monocytes % (Manual) 5 % (1-10) Eosinophils % (Manual) 2 % (0-3) Basophils % (Manual) 1 % (0-2) Band Neutrophils 0 % (0-8) Platelet Estimate Adequate Platelet Morphology Normal Hypochromasia 4+ Anisocytosis 2+ Sodium Level 134 MMOL/L (136-145) L Potassium Level 4.1 MMOL/L (3.5-5.1) Chloride Level 101 MMOL/L (98-107) Carbon Dioxide Level 29 MMOL/L (21-32) Anion Gap 5 mmol/L (5-15) Blood Urea Nitrogen 17 mg/dL (7-18) Creatinine 0.6 MG/DL (0.55-1.30) Estimat Glomerular Filtration Rate > 60 mL/min (>60) Glucose Level 96 MG/DL (74-106) Calcium Level 8.4 MG/DL (8.5-10.1) L Phosphorus Level 2.9 MG/DL (2.5-4.9) 3.3 MG/DL (2.5-4.9) Magnesium Level 1.8 MG/DL (1.8-2.4) 1.7 MG/DL (1.8-2.4) L Vancomycin Level Trough 14.0 ug/mL (5.0-12.0) H Activated Partial Thromboplast Time 36 SEC (23-33) H Current Medications Medications (Trade) Dose Ordered Sig/Mya Route PRN Reason Start Time Stop Time Status Last Admin Dose Admin Acetaminophen (Tylenol) 650 mg Q4H PRN ORAL Mild Pain (Pain Scale 1-3) 10/23/19 17:30 11/22/19 17:29 10/27/19 09:00 Acetaminophen/ Hydrocodone Bitart ([place] 5/325) 1 tab Q4H PRN ORAL Moderate Pain (Pain Scale 4-6) 10/23/19 20:15 10/30/19 20:14 10/28/19 15:54 Acetaminophen/ Hydrocodone Bitart ([place] 5/325) 2 tab Q4H PRN ORAL Severe Pain (Pain Scale 7-10) 10/23/19 20:15 10/30/19 20:14 10/29/19 15:09 Ascorbic Acid (Vitamin C) 500 mg DAILY ORAL 10/24/19 09:00 11/23/19 08:59 10/29/19 08:49 Baclofen (Lioresal) 10 mg THREE TIMES A DAY ORAL 10/23/19 18:00 11/22/19 17:59 10/29/19 15:07 Chlorhexidine Gluconate (Simran-Hex 2%) 1 applic DAILY@1999 TOPIC 10/24/19 20:00 01/22/20 19:59 10/28/19 19:57 Clonazepam (KlonoPIN) 0.5 mg Q8HR ORAL 10/23/19 21:00 10/30/19 20:59 10/29/19 15:07 Desmopressin Acetate (Ddavp) 2 mcg EVERY 12 HOURS IV 10/28/19 21:00 01/26/20 20:59 10/29/19 08:50 Dextrose (Dextrose 50%) 25 ml Q30M PRN IV Hypoglycemia 10/23/19 17:30 01/21/20 17:29 Dextrose (Dextrose 50%) 50 ml Q30M PRN IV Hypoglycemia 10/23/19 17:30 01/21/20 17:29 Diphenhydramine HCl (Benadryl) 25 mg Q6H PRN ORAL Itching/Pruritis 10/23/19 17:30 11/22/19 17:29 Docusate Sodium (Colace) 100 mg EVERY 12 HOURS ORAL 10/23/19 21:00 11/22/19 20:59 10/29/19 08:49 Dopamine HCl/ Dextrose 250 ml @ 0 mls/hr Q24H IV 10/24/19 06:15 01/22/20 06:14 10/27/19 04:35 Ferrous Sulfate (Feosol) 325 mg DAILY ORAL 10/24/19 09:00 01/22/20 08:59 10/29/19 08:49 Gabapentin (Neurontin) 400 mg Q8HR ORAL 10/23/19 22:00 11/22/19 21:59 10/29/19 15:07 Heparin Sodium (Porcine) (Heparin 5000 units/ml) 5,000 units EVERY 12 HOURS SUBQ 10/24/19 09:00 12/08/19 08:59 10/28/19 08:13 Midodrine (Pro-Amatine) 10 mg EVERY 8 HOURS ORAL 10/28/19 14:00 01/21/20 17:59 10/29/19 15:07 Norepinephrine Bitartrate 250 ml @ 0 mls/hr Q24H IV 10/23/19 21:00 01/21/20 20:59 10/29/19 08:50 Ondansetron HCl (Zofran) 4 mg Q6H PRN IVP Nausea & Vomiting 10/23/19 17:30 11/22/19 17:29 Piperacillin Sod/ Tazobactam Sod 3.375 gm/Dextrose 100 ml @ 25 mls/hr EVERY 8 HOURS IVPB 10/27/19 22:00 11/01/19 21:59 10/29/19 15:08 Sodium Hypochlorite (Dakin's Quarter Strength) 1 applic DAILY TOPIC 10/25/19 09:00 11/24/19 08:59 10/29/19 08:51 Sodium Chloride 1,000 ml @ 150 mls/hr Q6H40M IV 10/26/19 11:27 11/25/19 11:26 10/29/19 13:00 Vancomycin HCl ([facility] pharmacy to dose) 1 ea DAILY PRN MISC Per rx protocol 10/27/19 18:15 11/26/19 18:14 Vancomycin HCl 1 gm/Dextrose 275 ml @ 183.708 mls/hr Q12H IVPB 10/27/19 20:00 11/01/19 19:59 10/29/19 08:50 Zinc Sulfate (Zinc Sulfate) 220 mg DAILY ORAL 10/24/19 09:00 01/22/20 08:59 10/29/19 08:49 Sharif Painting MD Oct 29, 2019 16:10
[2019-10-29] MEDS: Vancomycin 1 GM in D5W 275 ML IVPB SCH (19:56)
[2019-10-29] MEDS: Dyna-Hex 2% Top Sol 2oz TOPIC SCH (19:56)
[2019-10-30] VITALS (65 sets, daily range): BP systolic 80–150; BP diastolic 48–85
[2019-10-30] MEDS: HYDROcodone/Acetamin 5/325 tab ORAL PRN ×4 (01:44→21:05)
[2019-10-30] MEDS: clonazePAM 0.5mg tab ORAL SCH ×2 (05:22→13:06)
[2019-10-30] MEDS: Midodrine 10mg tab ORAL SCH ×3 (05:22→20:24)
[2019-10-30] MEDS: DOPamine 400mg/250ml 250 ML IV SCH (06:15)
[2019-10-30 06:42] LABS: EOSINOPHILS % (AUTO) 2.5 % (0.0-3.0); HEMATOCRIT 26.5 % (42.0-52.0); HEMOGLOBIN 8.6 G/DL (14.2-18.0); LYMPHOCYTES % (AUTO) 34.3 % (20.0-45.0); MEAN CORPUSCULAR VOLUME 84 FL (80-99); MONOCYTES % (AUTO) 4.1 % (1.0-10.0); NEUTROPHILS % (AUTO) 58.1 % (45.0-75.0); PLATELET COUNT 334 K/UL (150-450); RED BLOOD COUNT 3.17 M/UL (4.70-6.10); RED CELL DISTRIBUTION WIDTH 17.1 % (11.6-14.8); WHITE BLOOD COUNT 8.5 K/UL (4.8-10.8)
[2019-10-30 07:17] LABS: ANION GAP 8 mmol/L (5-15); BLOOD UREA NITROGEN 9 mg/dL (7-18); CARBON DIOXIDE 24 MMOL/L (21-32); CHLORIDE 95 MMOL/L (98-107); CREATININE 0.5 MG/DL (0.55-1.30); POTASSIUM 3.7 MMOL/L (3.5-5.1); SODIUM 127 MMOL/L (136-145)
--- NOTE | 2019-10-30 07:23 | Hematology/Onc Progress Note ---
Assessment/Plan Assessment/Plan Assessment/recs # Anemia rule out gi bleed, as well as iron deficiency --> hgb 8.2-->7.2-->7.1->6.9-->8.6 --> anemia panel ordered--> cw acd --> occult blood pending --> gi eval prn --> transfuse as needed -> transfuse 2 units 10/27 # Coagulopathy with elev ptt/inr --> vitk and ffp as needed --> no bleeding noted at this time # Hypotension likely due to septic shock. Was diuresing heavily at 300 mL an hour. --> Continue Midodrine and dopamine. --> initially on IV antibiotic with vancomycin and meropenem and amikacin-->christel --> in icu, is on dopamine, pressor --> as per cards # Bradycardia. Continue dopamine. --> cards # Paraplegia. # Urinary tract infection, followed by Dr. Painting on broad-spectrum IV antibiotic. # Decubitus ulcers with sacral decubitus. # Dvt heparin sq Appreciate consultation and chandrakant RN Subjective Constitutional: Denies: no symptoms, chills, fever, malaise, weakness, other HEENT: Denies: no symptoms, eye pain, blurred vision, tearing, double vision, ear pain, ear discharge, nose pain, nose congestion, throat pain, throat swelling, mouth pain, mouth swelling, other Cardiovascular: Denies: no symptoms, chest pain, edema, irregular heart rate, lightheadedness, palpitations, syncope, other Respiratory: Denies: no symptoms, cough, shortness of breath, SOB with excertion, SOB at rest, sputum, wheezing, other Gastrointestinal/Abdominal: Denies: no symptoms, abdomen distended, abdominal pain, black stools, tarry stools, blood in stool, constipated, diarrhea, difficulty swallowing, nausea, poor appetite, poor fluid intake, rectal bleeding , vomiting, other Genitourinary: Denies: no symptoms, burning, discharge, frequency, flank pain, hematuria, incontinence, pain, urgency, other Neurologic/Psychiatric: Denies: no symptoms, anxiety, depressed, emotional problems, headache, numbness, paresthesia, pre-existing deficit, seizure, tingling, tremors, weakness, other Endocrine: Denies: no symptoms, excessive sweating, flushing, intolerance to cold, intolerance to heat, increased hunger, increased thirst, increased urine, unexplained weight gain, unexplained weight loss, other Allergies: Coded Allergies: No Known Allergies (Unverified , 08/15/19) Subjective 10/27 labs again refused this am, yesterday was low, chandrakant rn in icu 10/28 remains in icu, for 2units prbc this am, chandrakant rn, no other events 10/29 s/p prbc, tolerated it well, no bleeding, on 1mcg levo, in icu Objective Objective Current Medications Medications (Trade) Dose Ordered Sig/Mya Route PRN Reason Start Time Stop Time Status Last Admin Dose Admin Acetaminophen (Tylenol) 650 mg Q4H PRN ORAL Mild Pain (Pain Scale 1-3) 10/23/19 17:30 11/22/19 17:29 10/27/19 09:00 Acetaminophen/ Hydrocodone Bitart ([place] 5/325) 1 tab Q4H PRN ORAL Moderate Pain (Pain Scale 4-6) 10/23/19 20:15 10/30/19 20:14 10/28/19 15:54 Acetaminophen/ Hydrocodone Bitart ([place] 5/325) 2 tab Q4H PRN ORAL Severe Pain (Pain Scale 7-10) 10/23/19 20:15 10/30/19 20:14 10/30/19 01:44 Ascorbic Acid (Vitamin C) 500 mg DAILY ORAL 10/24/19 09:00 11/23/19 08:59 10/29/19 08:49 Baclofen (Lioresal) 10 mg THREE TIMES A DAY ORAL 10/23/19 18:00 11/22/19 17:59 10/29/19 18:31 Chlorhexidine Gluconate (Simran-Hex 2%) 1 applic DAILY@1999 TOPIC 10/24/19 20:00 01/22/20 19:59 10/29/19 19:56 Clonazepam (KlonoPIN) 0.5 mg Q8HR ORAL 10/23/19 21:00 10/30/19 20:59 10/30/19 05:22 Desmopressin Acetate (Ddavp) 2 mcg EVERY 12 HOURS IV 10/28/19 21:00 01/26/20 20:59 10/29/19 20:40 Dextrose (Dextrose 50%) 25 ml Q30M PRN IV Hypoglycemia 10/23/19 17:30 01/21/20 17:29 Dextrose (Dextrose 50%) 50 ml Q30M PRN IV Hypoglycemia 10/23/19 17:30 01/21/20 17:29 Diphenhydramine HCl (Benadryl) 25 mg Q6H PRN ORAL Itching/Pruritis 10/23/19 17:30 11/22/19 17:29 Docusate Sodium (Colace) 100 mg EVERY 12 HOURS ORAL 10/23/19 21:00 11/22/19 20:59 10/29/19 20:32 Dopamine HCl/ Dextrose 250 ml @ 0 mls/hr Q24H IV 10/24/19 06:15 01/22/20 06:14 10/27/19 04:35 Ferrous Sulfate (Feosol) 325 mg DAILY ORAL 10/24/19 09:00 01/22/20 08:59 10/29/19 08:49 Gabapentin (Neurontin) 400 mg Q8HR ORAL 10/23/19 22:00 11/22/19 21:59 10/30/19 05:22 Heparin Sodium (Porcine) (Heparin 5000 units/ml) 5,000 units EVERY 12 HOURS SUBQ 10/24/19 09:00 12/08/19 08:59 10/29/19 20:35 Meropenem 1 gm/ Sodium Chloride 100 ml @ 200 mls/hr Q8H IVPB 10/29/19 18:00 11/03/19 17:59 10/30/19 01:53 Midodrine (Pro-Amatine) 10 mg EVERY 8 HOURS ORAL 10/28/19 14:00 01/21/20 17:59 10/30/19 05:22 Norepinephrine Bitartrate 250 ml @ 0 mls/hr Q24H IV 10/23/19 21:00 01/21/20 20:59 10/29/19 08:50 Ondansetron HCl (Zofran) 4 mg Q6H PRN IVP Nausea & Vomiting 10/23/19 17:30 11/22/19 17:29 Sodium Hypochlorite (Dakin's Quarter Strength) 1 applic DAILY TOPIC 10/25/19 09:00 11/24/19 08:59 10/29/19 08:51 Sodium Chloride 1,000 ml @ 150 mls/hr Q6H40M IV 10/26/19 11:27 11/25/19 11:26 10/30/19 01:58 Vancomycin HCl (Vanco pharmacy to dose) 1 ea DAILY PRN MISC Per rx protocol 10/29/19 16:15 11/28/19 16:14 Vancomycin HCl 1 gm/Dextrose 275 ml @ 183.708 mls/hr Q12H IVPB 10/29/19 20:00 11/03/19 19:59 10/29/19 19:56 Zinc Sulfate (Zinc Sulfate) 220 mg DAILY ORAL 10/24/19 09:00 01/22/20 08:59 10/29/19 08:49 Last 24 Hour Vital Signs Date Time Temp Pulse Resp B/P (MAP) Pulse Ox O2 Delivery O2 Flow Rate FiO2 10/30/19 07:00 61 15 94/57 (69) 95 10/30/19 06:30 64 16 99/59 (72) 97 10/30/19 06:15 62 15 103/57 (72) 97 10/30/19 06:15 102/56 10/30/19 06:00 65 15 101/57 (72) 97 10/30/19 05:30 66 14 97/58 (71) 100 10/30/19 05:00 64 17 95/60 (72) 100 10/30/19 04:30 69 17 98/61 (73) 99 10/30/19 04:00 Room Air 10/30/19 04:00 66 10/30/19 04:00 97.8 75 15 112/59 (76) 97 10/30/19 03:30 62 15 130/65 (86) 99 10/30/19 03:00 77 17 150/79 (102) 98 10/30/19 02:30 75 16 137/68 (91) 99 10/30/19 02:00 73 17 130/61 (84) 98 10/30/19 01:30 67 17 120/80 (93) 98 10/30/19 01:00 74 19 126/82 (97) 98 10/30/19 00:30 72 16 128/80 (96) 98 10/30/19 00:00 Room Air 10/30/19 00:00 98.5 74 15 133/72 (92) 99 10/30/19 00:00 70 10/29/19 22:30 73 17 125/71 (89) 97 10/29/19 22:00 71 16 115/80 (92) 99 10/29/19 21:30 61 17 114/82 (93) 98 10/29/19 21:00 70 21 113/63 (80) 98 10/29/19 20:30 67 18 111/64 (80) 98 10/29/19 20:00 75 10/29/19 20:00 Room Air 10/29/19 20:00 98.5 78 20 88/57 (67) 99 10/29/19 19:30 80 16 84/52 (63) 99 10/29/19 19:00 75 16 99/53 (68) 99 10/29/19 18:30 70 14 82/53 (63) 99 10/29/19 18:00 73 16 125/54 (77) 98 10/29/19 17:30 81 14 116/51 (72) 99 10/29/19 17:00 72 16 108/66 (80) 97 10/29/19 16:00 74 10/29/19 16:00 Room Air 10/29/19 16:00 98.2 68 18 109/69 (82) 97 10/29/19 15:39 97.8 10/29/19 15:00 70 17 112/63 (79) 98 10/29/19 14:30 71 21 107/63 (78) 96 10/29/19 14:00 73 18 120/52 (74) 97 10/29/19 13:30 73 19 111/58 (75) 98 10/29/19 13:00 78 20 121/67 (85) 99 10/29/19 12:00 97.8 67 17 119/66 (83) 97 10/29/19 12:00 Room Air 10/29/19 12:00 66 10/29/19 11:30 79 17 123/55 (77) 98 10/29/19 11:00 72 18 93/53 (66) 98 10/29/19 10:30 79 18 99/56 (70) 98 10/29/19 10:00 76 15 103/57 (72) 99 10/29/19 09:30 74 13 100/60 (73) 100 10/29/19 09:00 69 15 110/54 (72) 99 8/16/20 08:50 133/76 10/29/19 08:30 63 17 101/58 (72) 98 10/29/19 08:00 97.7 60 18 107/62 (77) 98 10/29/19 08:00 59 10/29/19 08:00 Room Air 10/29/19 07:00 59 16 133/76 (95) 99 10/29/19 06:15 108/63 10/29/19 06:00 63 18 99/62 (74) 99 10/29/19 05:30 72 20 89/54 (66) 99 10/29/19 05:00 73 16 90/54 (66) 100 10/29/19 04:00 Room Air 10/29/19 04:00 77 10/29/19 04:00 97.9 69 122/66 (84) 10/29/19 03:00 67 19 93/56 (68) 97 10/29/19 02:00 70 22 91/44 (60) 98 10/29/19 01:00 74 19 98/54 (69) 100 10/29/19 00:00 98.9 78 19 103/56 (72) 99 10/29/19 00:00 77 10/29/19 00:00 Room Air 10/28/19 23:00 85 21 101/49 (66) 96 10/28/19 22:00 92 17 110/59 (76) 96 10/28/19 21:00 88 20 93/59 (70) 99 10/28/19 20:15 87 21 94/53 (67) 94 10/28/19 20:00 89 10/28/19 20:00 99.0 100 24 83/47 (59) 93 10/28/19 20:00 Room Air 10/28/19 19:00 89 18 104/53 (70) 98 10/28/19 18:00 94 18 102/61 (75) 97 10/28/19 17:00 93 17 108/64 (79) 97 10/28/19 16:30 91 18 125/63 (83) 98 10/28/19 16:00 97.4 83 18 112/67 (82) 99 10/28/19 16:00 Room Air 10/28/19 15:30 84 10 114/68 (83) 99 10/28/19 15:24 82 10/28/19 15:00 89 16 127/82 (97) 97 10/28/19 14:30 90 22 107/57 (74) 97 10/28/19 14:00 88 22 102/82 (89) 97 10/28/19 13:30 91 21 102/58 (73) 97 10/28/19 13:00 80 19 95/60 (72) 97 10/28/19 12:00 Room Air 10/28/19 12:00 97.4 75 22 99/57 (71) 99 10/28/19 11:30 83 24 94/52 (66) 94 10/28/19 11:22 76 10/28/19 11:15 77 20 101/59 (73) 98 10/28/19 11:00 80 18 106/64 (78) 98 10/28/19 10:45 73 20 94/54 (67) 96 10/28/19 10:30 80 21 98/52 (67) 90 10/28/19 10:15 67 17 107/65 (79) 95 10/28/19 10:15 107/65 10/28/19 10:00 71 17 115/71 (86) 93 10/28/19 09:00 72 20 109/64 (79) 98 10/28/19 08:11 71 10/28/19 08:00 98.0 71 18 124/64 (84) 100 10/28/19 08:00 Room Air Intake and Output 10/29/19 10/30/19 19:00 07:00 Intake Total 1856.166 ml 2856.25 ml Output Total 1920 ml 1510 ml Balance -63.834 ml 1346.25 ml Intake Oral 240 ml 480 ml IV Total 1616.166 ml 1976.25 ml Blood Product 400 ml Output Urine Total 1920 ml 1510 ml # Bowel Movements 1 Labs Test 10/27/19 12:00 10/29/19 06:00 10/29/19 07:10 10/29/19 08:35 Reticulocyte Count 1.8 % (0.5-2.0) Iron Level 10 ug/dL (50-175) Total Iron Binding Capacity 108 ug/dL (250-450) Percent Iron Saturation 9 % (15-50) Unsaturated Iron Binding 98 ug/dL (112-346) Ferritin 492 NG/ML (8-388) Lactate Dehydrogenase 126 U/L (81-234) Carcinoembryonic Antigen 0.9 ng/mL (0.0-4.7) Thyroid Stimulating Hormone (TSH) 0.210 uiU/mL (0.358-3.740) White Blood Count 8.8 K/UL (4.8-10.8) Red Blood Count 2.60 M/UL (4.70-6.10) Hemoglobin 6.6 G/DL (14.2-18.0) Hematocrit 21.7 % (42.0-52.0) Mean Corpuscular Volume 83 FL (80-99) Mean Corpuscular Hemoglobin 25.3 PG (27.0-31.0) Mean Corpuscular Hemoglobin Concent 30.4 G/DL (32.0-36.0) Red Cell Distribution Width 19.0 % (11.6-14.8) Platelet Count 372 K/UL (150-450) Mean Platelet Volume 4.3 FL (6.5-10.1) Neutrophils (%) (Auto) % (45.0-75.0) Lymphocytes (%) (Auto) % (20.0-45.0) Monocytes (%) (Auto) % (1.0-10.0) Eosinophils (%) (Auto) % (0.0-3.0) Basophils (%) (Auto) % (0.0-2.0) Differential Total Cells Counted 100 Neutrophils % (Manual) 54 % (45-75) Lymphocytes % (Manual) 38 % (20-45) Monocytes % (Manual) 5 % (1-10) Eosinophils % (Manual) 2 % (0-3) Basophils % (Manual) 1 % (0-2) Band Neutrophils 0 % (0-8) Platelet Estimate Adequate Platelet Morphology Normal Hypochromasia 4+ Anisocytosis 2+ Sodium Level 134 MMOL/L (136-145) Potassium Level 4.1 MMOL/L (3.5-5.1) Chloride Level 101 MMOL/L (98-107) Carbon Dioxide Level 29 MMOL/L (21-32) Anion Gap 5 mmol/L (5-15) Blood Urea Nitrogen 17 mg/dL (7-18) Creatinine 0.6 MG/DL (0.55-1.30) Estimat Glomerular Filtration Rate > 60 mL/min (>60) Glucose Level 96 MG/DL (74-106) Calcium Level 8.4 MG/DL (8.5-10.1) Phosphorus Level 2.9 MG/DL (2.5-4.9) 3.3 MG/DL (2.5-4.9) Magnesium Level 1.8 MG/DL (1.8-2.4) 1.7 MG/DL (1.8-2.4) Vancomycin Level Trough 14.0 ug/mL (5.0-12.0) Activated Partial Thromboplast Time 36 SEC (23-33) Test 10/30/19 05:20 White Blood Count 8.5 K/UL (4.8-10.8) Red Blood Count 3.17 M/UL (4.70-6.10) Hemoglobin 8.6 G/DL (14.2-18.0) Hematocrit 26.5 % (42.0-52.0) Mean Corpuscular Volume 84 FL (80-99) Mean Corpuscular Hemoglobin 27.0 PG (27.0-31.0) Mean Corpuscular Hemoglobin Concent 32.3 G/DL (32.0-36.0) Red Cell Distribution Width 17.1 % (11.6-14.8) Platelet Count 334 K/UL (150-450) Mean Platelet Volume 4.7 FL (6.5-10.1) Neutrophils (%) (Auto) 58.1 % (45.0-75.0) Lymphocytes (%) (Auto) 34.3 % (20.0-45.0) Monocytes (%) (Auto) 4.1 % (1.0-10.0) Eosinophils (%) (Auto) 2.5 % (0.0-3.0) Basophils (%) (Auto) 1.0 % (0.0-2.0) Sodium Level 127 MMOL/L (136-145) Potassium Level 3.7 MMOL/L (3.5-5.1) Chloride Level 95 MMOL/L (98-107) Carbon Dioxide Level 24 MMOL/L (21-32) Anion Gap 8 mmol/L (5-15) Blood Urea Nitrogen 9 mg/dL (7-18) Creatinine 0.5 MG/DL (0.55-1.30) Estimat Glomerular Filtration Rate > 60 mL/min (>60) Glucose Level 75 MG/DL (74-106) Calcium Level 8.0 MG/DL (8.5-10.1) Height (Feet): 5 Height (Inches): 7.00 Weight (Pounds): 120 Objective Physical Exam General Appearance: lethargic Lines, tubes and drains: peripheral, central line HEENT: normocephalic Neck: non-tender, normal alignment Respiratory/Chest: lungs clear Cardiovascular/Chest: normal peripheral pulses, normal rate, regular rhythm Abdomen: normal bowel sounds, non tender Martínez Capps MD Oct 30, 2019 07:23
[2019-10-30] MEDS: Ascorbic Acid 500mg tab ORAL SCH (08:29)
[2019-10-30] MEDS: Docusate 100mg cap ORAL SCH ×2 (08:29→20:24)
[2019-10-30] MEDS: Vancomycin 1 GM in D5W 275 ML IVPB SCH ×2 (08:30→20:24)
[2019-10-30] MEDS: Zinc Sulfate 220mg ORAL SCH (08:30)
[2019-10-30] MEDS: Heparin 5000 units/ml inj SUBQ SCH ×2 (08:31→20:26)
[2019-10-30] MEDS: Dakin's 0.125% Soln (Quarter Strength) 16oz TOPIC SCH (08:31)
--- NOTE | 2019-10-30 09:37 | Nephrology Progress Note ---
Assessment/Plan Plan #Polyuria - r/o DI vs dopamine effect??- however sodium remains in normal range #Shock #UTI # infected sacral pressure ulcer #Acute metabolic encephalopathy #Paraplegia #Sacral pressure ulcer #Hypokalemia #Anemia - continue NS hydration - increased NS to 150 cc/hr - replete mag and K - DC desmopressin given dropping sodium - continue midodrine 10 TID - antibiotics per ID - continue antibiotic to maintain MAP > 65 - monitor lytes - monitor for vanoc toxicity - avoid nephrotoxins - daily weights - strict I&Os time spent 70 min- greater than 50% on care coordination and counseling Subjective ROS Limited/Unobtainable: Yes Subjective sodium downtrending will dc desmopression UOP 3700 yesterday s/p one unit of prbc weaned off dopamine Objective Objective Last 24 Hour Vital Signs Date Time Temp Pulse Resp B/P (MAP) Pulse Ox O2 Delivery O2 Flow Rate FiO2 10/30/19 09:00 65 14 107/66 (80) 99 10/30/19 08:30 64 16 109/62 (78) 99 10/30/19 08:22 61 10/30/19 08:00 98.0 67 16 105/70 (82) 75 10/30/19 08:00 Room Air 10/30/19 07:30 67 15 113/66 (82) 95 10/30/19 07:00 61 15 94/57 (69) 95 10/30/19 06:30 64 16 99/59 (72) 97 10/30/19 06:15 62 15 103/57 (72) 97 10/30/19 06:15 102/56 10/30/19 06:00 65 15 101/57 (72) 97 10/30/19 05:30 66 14 97/58 (71) 100 10/30/19 05:00 64 17 95/60 (72) 100 10/30/19 04:30 69 17 98/61 (73) 99 10/30/19 04:00 Room Air 10/30/19 04:00 66 10/30/19 04:00 97.8 75 15 112/59 (76) 97 10/30/19 03:30 62 15 130/65 (86) 99 10/30/19 03:00 77 17 150/79 (102) 98 10/30/19 02:30 75 16 137/68 (91) 99 10/30/19 02:00 73 17 130/61 (84) 98 10/30/19 01:30 67 17 120/80 (93) 98 10/30/19 01:00 74 19 126/82 (97) 98 10/30/19 00:30 72 16 128/80 (96) 98 10/30/19 00:00 Room Air 10/30/19 00:00 98.5 74 15 133/72 (92) 99 10/30/19 00:00 70 10/29/19 22:30 73 17 125/71 (89) 97 10/29/19 22:00 71 16 115/80 (92) 99 10/29/19 21:30 61 17 114/82 (93) 98 10/29/19 21:00 70 21 113/63 (80) 98 10/29/19 20:30 67 18 111/64 (80) 98 10/29/19 20:00 75 10/29/19 20:00 Room Air 10/29/19 20:00 98.5 78 20 88/57 (67) 99 10/29/19 19:30 80 16 84/52 (63) 99 10/29/19 19:00 75 16 99/53 (68) 99 10/29/19 18:30 70 14 82/53 (63) 99 10/29/19 18:00 73 16 125/54 (77) 98 10/29/19 17:30 81 14 116/51 (72) 99 10/29/19 17:00 72 16 108/66 (80) 97 10/29/19 16:00 74 10/29/19 16:00 Room Air 10/29/19 16:00 98.2 68 18 109/69 (82) 97 10/29/19 15:39 97.8 10/29/19 15:00 70 17 112/63 (79) 98 10/29/19 14:30 71 21 107/63 (78) 96 10/29/19 14:00 73 18 120/52 (74) 97 10/29/19 13:30 73 19 111/58 (75) 98 10/29/19 13:00 78 20 121/67 (85) 99 10/29/19 12:00 97.8 67 17 119/66 (83) 97 10/29/19 12:00 Room Air 10/29/19 12:00 66 10/29/19 11:30 79 17 123/55 (77) 98 10/29/19 11:00 72 18 93/53 (66) 98 10/29/19 10:30 79 18 99/56 (70) 98 10/29/19 10:00 76 15 103/57 (72) 99 Intake and Output 10/29/19 10/30/19 19:00 07:00 Intake Total 1856.166 ml 3006.25 ml Output Total 1920 ml 1510 ml Balance -63.834 ml 1496.25 ml Intake Oral 240 ml 480 ml IV Total 1616.166 ml 2126.25 ml Blood Product 400 ml Output Urine Total 1920 ml 1510 ml # Bowel Movements 1 Laboratory Tests 10/30/19 05:20: White Blood Count 8.5, Red Blood Count 3.17L, Hemoglobin 8.6#L, Hematocrit 26.5L , Mean Corpuscular Volume 84, Mean Corpuscular Hemoglobin 27.0, Mean Corpuscular Hemoglobin Concent 32.3, Red Cell Distribution Width 17.1H, Platelet Count 334, Mean Platelet Volume 4.7L, Neutrophils (%) (Auto) 58.1, Lymphocytes (%) (Auto) 34.3, Monocytes (%) (Auto) 4.1, Eosinophils (%) (Auto) 2.5, Basophils (%) (Auto) 1.0, Sodium Level 127L, Potassium Level 3.7, Chloride Level 95L, Carbon Dioxide Level 24, Anion Gap 8, Blood Urea Nitrogen 9, Creatinine 0.5L, Estimat Glomerular Filtration Rate > 60, Glucose Level 75, Calcium Level 8.0L Height (Feet): 5 Height (Inches): 7.00 Weight (Pounds): 120 Sienna Georges M.D. Oct 30, 2019 09:37
[2019-10-30] MEDS: Desmopressin (DDAVP) Inj IV SCH (09:52)
--- NOTE | 2019-10-30 11:09 | General Progress Note ---
Assessment/Plan Problem List: (1) Anemia ICD Codes: D64.9 - Anemia, unspecified SNOMED: 503451758 (2) Encephalopathy ICD Codes: G93.40 - Encephalopathy, unspecified SNOMED: 07960807 (3) Drug (multiple) resistant infection SNOMED: 01524446, 10635499417136 (4) Urinary tract infection in male ICD Codes: N39.0 - Urinary tract infection, site not specified SNOMED: 84467174, 976108689 (5) Hypokalemia ICD Codes: E87.6 - Hypokalemia SNOMED: 55910213 (6) Femur fracture ICD Codes: S72.90XA - Unspecified fracture of unspecified femur, initial encounter for closed fracture SNOMED: 29424936 (7) Hyponatremia ICD Codes: E87.1 - Hypo-osmolality and hyponatremia SNOMED: 37403091 (8) Sepsis ICD Codes: A41.9 - Sepsis, unspecified organism SNOMED: 74708735 (9) UTI (urinary tract infection) ICD Codes: N39.0 - Urinary tract infection, site not specified SNOMED: 71827676 (10) Hypotension ICD Codes: I95.9 - Hypotension, unspecified SNOMED: 88591940 (11) Decubital ulcer ICD Codes: L89.90 - Pressure ulcer of unspecified site, unspecified stage SNOMED: 976052608 (12) SEAN (acute kidney injury) ICD Codes: N17.9 - Acute kidney failure, unspecified SNOMED: 2813477, 80110586 Status: stable Assessment/Plan: 59 year old man who presents from [facility] with weakness, encephalopathy, concern for septic shock, possible from UTI vs infected sacral pressure ulcer #Septic shock- improving #Proteus UTI #Acute metabolic encephalopathy -improving #Paraplegia #Sacral pressure ulcer, present on admit -continue ICU care -Wean off vasopressors -off amikacin, continue meropenem and vancomycin -Spoke with surgery, sacral pressure ulcer does not appear to be infected -Local wound care and offloading #Sinus Bradycardia - improving -continue telemetry -EP following #Hypokalemia -refusing labs #Anemia, acute on chronic -2 units RBC 10/28 -Hematology following VTE PPx HSQ Full Code I spent 76 minutes on this patient's case, and 39 mins was dedicated to critical care. Given that this a new patient to me i did extensive chart review for 20 minutes of previous records. Discussed with all consultants, Charge nurse and RNs. Critical Care Services performed include: Telemetry Review Hemodynamic measurement interpretation Laboratory data review and interpretation Radiology image review and interpretation Discussion of patient's care with ICU team, ICU Nursing staff and/or consulting services Subjective Date patient seen: Oct 30, 2019 Time patient seen: 08:45 ROS Limited/Unobtainable: No Constitutional: Denies: chills, diaphoresis, fever HEENT: Denies: eye pain, blurred vision, double vision Cardiovascular: Denies: chest pain, edema, irregular heart rate, lightheadedness Respiratory: Denies: shortness of breath, SOB with excertion, SOB at rest, sputum, stridor Gastrointestinal/Abdominal: Denies: abdominal pain, black stools, tarry stools Genitourinary: Denies: discharge, frequency, flank pain, hematuria Neurologic/Psychiatric: Denies: anxiety, depressed, emotional problems, headache Endocrine: Denies: excessive sweating, flushing, intolerance to cold, intolerance to heat Hematologic/Lymphatic: Reports: anemia; Denies: easy bruising Allergies: Coded Allergies: No Known Allergies (Unverified , 08/15/19) Subjective He sates he feels fine. In no pain. till on Levophed. Objective Last 24 Hour Vital Signs Date Time Temp Pulse Resp B/P (MAP) Pulse Ox O2 Delivery O2 Flow Rate FiO2 10/30/19 10:00 63 15 105/57 (73) 97 10/30/19 09:30 64 15 103/60 (74) 94 10/30/19 09:00 65 14 107/66 (80) 99 10/30/19 08:30 64 16 109/62 (78) 99 10/30/19 08:22 61 10/30/19 08:00 98.0 67 16 105/70 (82) 75 10/30/19 08:00 Room Air 10/30/19 07:30 67 15 113/66 (82) 95 10/30/19 07:00 61 15 94/57 (69) 95 10/30/19 06:30 64 16 99/59 (72) 97 10/30/19 06:15 62 15 103/57 (72) 97 10/30/19 06:15 102/56 10/30/19 06:00 65 15 101/57 (72) 97 10/30/19 05:30 66 14 97/58 (71) 100 10/30/19 05:00 64 17 95/60 (72) 100 10/30/19 04:30 69 17 98/61 (73) 99 10/30/19 04:00 Room Air 10/30/19 04:00 66 10/30/19 04:00 97.8 75 15 112/59 (76) 97 10/30/19 03:30 62 15 130/65 (86) 99 10/30/19 03:00 77 17 150/79 (102) 98 10/30/19 02:30 75 16 137/68 (91) 99 10/30/19 02:00 73 17 130/61 (84) 98 10/30/19 01:30 67 17 120/80 (93) 98 10/30/19 01:00 74 19 126/82 (97) 98 10/30/19 00:30 72 16 128/80 (96) 98 10/30/19 00:00 Room Air 10/30/19 00:00 98.5 74 15 133/72 (92) 99 10/30/19 00:00 70 10/29/19 22:30 73 17 125/71 (89) 97 10/29/19 22:00 71 16 115/80 (92) 99 10/29/19 21:30 61 17 114/82 (93) 98 10/29/19 21:00 70 21 113/63 (80) 98 10/29/19 20:30 67 18 111/64 (80) 98 10/29/19 20:00 75 10/29/19 20:00 Room Air 10/29/19 20:00 98.5 78 20 88/57 (67) 99 10/29/19 19:30 80 16 84/52 (63) 99 10/29/19 19:00 75 16 99/53 (68) 99 10/29/19 18:30 70 14 82/53 (63) 99 10/29/19 18:00 73 16 125/54 (77) 98 10/29/19 17:30 81 14 116/51 (72) 99 10/29/19 17:00 72 16 108/66 (80) 97 10/29/19 16:00 74 10/29/19 16:00 Room Air 10/29/19 16:00 98.2 68 18 109/69 (82) 97 10/29/19 15:39 97.8 10/29/19 15:00 70 17 112/63 (79) 98 10/29/19 14:30 71 21 107/63 (78) 96 10/29/19 14:00 73 18 120/52 (74) 97 10/29/19 13:30 73 19 111/58 (75) 98 10/29/19 13:00 78 20 121/67 (85) 99 10/29/19 12:00 97.8 67 17 119/66 (83) 97 10/29/19 12:00 Room Air 10/29/19 12:00 66 10/29/19 11:30 79 17 123/55 (77) 98 10/29/19 11:00 72 18 93/53 (66) 98 Intake and Output 10/29/19 10/30/19 19:00 07:00 Intake Total 1856.166 ml 3006.25 ml Output Total 1920 ml 1510 ml Balance -63.834 ml 1496.25 ml Intake Oral 240 ml 480 ml IV Total 1616.166 ml 2126.25 ml Blood Product 400 ml Output Urine Total 1920 ml 1510 ml # Bowel Movements 1 Laboratory Tests 10/30/19 05:20: White Blood Count 8.5, Red Blood Count 3.17L, Hemoglobin 8.6#L, Hematocrit 26.5L , Mean Corpuscular Volume 84, Mean Corpuscular Hemoglobin 27.0, Mean Corpuscular Hemoglobin Concent 32.3, Red Cell Distribution Width 17.1H, Platelet Count 334, Mean Platelet Volume 4.7L, Neutrophils (%) (Auto) 58.1, Lymphocytes (%) (Auto) 34.3, Monocytes (%) (Auto) 4.1, Eosinophils (%) (Auto) 2.5, Basophils (%) (Auto) 1.0, Sodium Level 127L, Potassium Level 3.7, Chloride Level 95L, Carbon Dioxide Level 24, Anion Gap 8, Blood Urea Nitrogen 9, Creatinine 0.5L, Estimat Glomerular Filtration Rate > 60, Glucose Level 75, Calcium Level 8.0L Height (Feet): 5 Height (Inches): 7.00 Weight (Pounds): 120 General Appearance: alert, alert oriented x3 EENT: normal ENT inspection Neck: normal alignment, supple, normal inspection Cardiovascular: normal rate, regular rhythm, regularly irregular, no JVD Respiratory/Chest: lungs clear, normal breath sounds, no respiratory distress, no accessory muscle use Abdomen: normal bowel sounds, non tender, soft, no organomegaly, no mass Pelvis: normal external exam, no active bleeding Extremities: normal inspection Edema: no edema noted Arm (L), no edema noted Arm (R), no edema noted Leg (L), no edema noted Leg (R), no edema noted Pedal (L), no edema noted Pedal (R), no edema noted Generalized Neurologic: abnormal gait, other - paraplegia Skin: normal pigmentation, warm/dry Art Hensley M.D. Oct 30, 2019 11:09
--- NOTE | 2019-10-30 14:53 | Surgery Progress Note ---
Surgery Progress Note Subjective Symptoms: improved, pain absent, tolerating diet, passing flatus, BM Objective Last 24 Hour Vital Signs Date Time Temp Pulse Resp B/P (MAP) Pulse Ox O2 Delivery O2 Flow Rate FiO2 10/30/19 14:00 62 15 107/66 (80) 99 10/30/19 13:00 63 14 94/54 (67) 97 10/30/19 12:45 64 16 90/54 (66) 97 10/30/19 12:30 64 16 95/53 (67) 98 10/30/19 12:15 65 19 101/62 (75) 97 10/30/19 12:00 Room Air 10/30/19 12:00 98.9 64 13 91/52 (65) 96 10/30/19 11:58 65 10/30/19 11:45 65 15 90/52 (65) 98 10/30/19 11:00 66 14 100/55 (70) 98 10/30/19 10:45 66 14 96/58 (71) 94 10/30/19 10:30 63 17 106/60 (75) 95 10/30/19 10:00 63 15 105/57 (73) 97 10/30/19 09:30 64 15 103/60 (74) 94 10/30/19 09:00 65 14 107/66 (80) 99 10/30/19 08:30 64 16 109/62 (78) 99 10/30/19 08:22 61 10/30/19 08:00 98.0 67 16 105/70 (82) 75 10/30/19 08:00 Room Air 10/30/19 07:30 67 15 113/66 (82) 95 10/30/19 07:00 61 15 94/57 (69) 95 10/30/19 06:30 64 16 99/59 (72) 97 10/30/19 06:15 62 15 103/57 (72) 97 10/30/19 06:15 102/56 10/30/19 06:00 65 15 101/57 (72) 97 10/30/19 05:30 66 14 97/58 (71) 100 10/30/19 05:00 64 17 95/60 (72) 100 10/30/19 04:30 69 17 98/61 (73) 99 10/30/19 04:00 Room Air 10/30/19 04:00 66 10/30/19 04:00 97.8 75 15 112/59 (76) 97 10/30/19 03:30 62 15 130/65 (86) 99 10/30/19 03:00 77 17 150/79 (102) 98 10/30/19 02:30 75 16 137/68 (91) 99 10/30/19 02:00 73 17 130/61 (84) 98 10/30/19 01:30 67 17 120/80 (93) 98 10/30/19 01:00 74 19 126/82 (97) 98 10/30/19 00:30 72 16 128/80 (96) 98 10/30/19 00:00 Room Air 10/30/19 00:00 98.5 74 15 133/72 (92) 99 10/30/19 00:00 70 10/29/19 22:30 73 17 125/71 (89) 97 10/29/19 22:00 71 16 115/80 (92) 99 10/29/19 21:30 61 17 114/82 (93) 98 10/29/19 21:00 70 21 113/63 (80) 98 10/29/19 20:30 67 18 111/64 (80) 98 10/29/19 20:00 75 10/29/19 20:00 Room Air 10/29/19 20:00 98.5 78 20 88/57 (67) 99 10/29/19 19:30 80 16 84/52 (63) 99 10/29/19 19:00 75 16 99/53 (68) 99 10/29/19 18:30 70 14 82/53 (63) 99 10/29/19 18:00 73 16 125/54 (77) 98 10/29/19 17:30 81 14 116/51 (72) 99 10/29/19 17:00 72 16 108/66 (80) 97 10/29/19 16:00 74 10/29/19 16:00 Room Air 10/29/19 16:00 98.2 68 18 109/69 (82) 97 10/29/19 15:39 97.8 10/29/19 15:00 70 17 112/63 (79) 98 I&O Intake and Output 10/29/19 10/30/19 19:00 07:00 Intake Total 1856.166 ml 3006.25 ml Output Total 1920 ml 1510 ml Balance -63.834 ml 1496.25 ml Intake Oral 240 ml 480 ml IV Total 1616.166 ml 2126.25 ml Blood Product 400 ml Output Urine Total 1920 ml 1510 ml # Bowel Movements 1 Cardiovascular: RSR Respiratory: clear Abdomen: soft, flat, non-tender, present bowel sounds Extremities: no edema, no tenderness, no cyanosis Laboratory Tests Test 10/30/19 05:20 White Blood Count 8.5 K/UL (4.8-10.8) Red Blood Count 3.17 M/UL (4.70-6.10) L Hemoglobin 8.6 G/DL (14.2-18.0) #L Hematocrit 26.5 % (42.0-52.0) L Mean Corpuscular Volume 84 FL (80-99) Mean Corpuscular Hemoglobin 27.0 PG (27.0-31.0) Mean Corpuscular Hemoglobin Concent 32.3 G/DL (32.0-36.0) Red Cell Distribution Width 17.1 % (11.6-14.8) H Platelet Count 334 K/UL (150-450) Mean Platelet Volume 4.7 FL (6.5-10.1) L Neutrophils (%) (Auto) 58.1 % (45.0-75.0) Lymphocytes (%) (Auto) 34.3 % (20.0-45.0) Monocytes (%) (Auto) 4.1 % (1.0-10.0) Eosinophils (%) (Auto) 2.5 % (0.0-3.0) Basophils (%) (Auto) 1.0 % (0.0-2.0) Sodium Level 127 MMOL/L (136-145) L Potassium Level 3.7 MMOL/L (3.5-5.1) Chloride Level 95 MMOL/L (98-107) L Carbon Dioxide Level 24 MMOL/L (21-32) Anion Gap 8 mmol/L (5-15) Blood Urea Nitrogen 9 mg/dL (7-18) Creatinine 0.5 MG/DL (0.55-1.30) L Estimat Glomerular Filtration Rate > 60 mL/min (>60) Glucose Level 75 MG/DL (74-106) Calcium Level 8.0 MG/DL (8.5-10.1) L Plan Problems: (1) Abdominal distension Assessment & Plan: abd distention soft non tender ostomy viable and reduced KUB ordered pending results improved comfortable no complaints okay for diet s tolerated There is an inferior vena cava filter in place. Bowel gas pattern is unremarkable. Considerable stool is seen in the transverse and distal colon. There is extensive pelvic deformity, with loss of the left femoral head, chronic dislocation of the left femur, and extensive pelvic deformity, particularly on the left. Adi project over the upper pelvis Impression: Possible constipation. 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 [place] Shaped, Full Thickness Sacral Pressure Injury which extends into L ischium. (L)15.4cm x (W)18cm x (D)2.4cm, Undermining clockwise 10-2 by 7.7cm @ 11o'clock. Base of wound is moist,pink with scattered slough at base of wound. Bone is palpable at the Base. No odor or exudate noted. Scattered partial thickness wounds and Serous filled blisters noted to R trochanteric /R Hip areas. Historical scar noted to L groin, L Hip L Buttocks. Bony protrusion noted at L Hip. Full thickness Pressure Injury R Ischium(L)5.4cm x(W)6.9cm x (D)1.8cm, Undermining clockwise 1-4 by 2.7cm @2o'clock, Tunneling@7o'clock 2.9cm. Base of wound is moist pink with scattered slough. Scattered slough noted along borders. NO odor or exudate noted. Stable dry eschar noted to medial R knee 0.7cm x (W)0.4cm. Periwound is erythematous and indurated. No elevation in skin temp noted. L heel has shaved appearance secondary to Hx of Pressure Injuries. Base of heel is pale pink. Bone is palpable. Small area of slough noted within compromised area(L)0.6cm x (W)0.8cm. L Heel Also has shaved appearance with hypertrophic scarring. Base of compromised area is pale pink, Bone is palpable, with scattered loose, dry and scaly skin. Tx.Plan: Cleanse Sacral Wound and R Ischial wounds with Dakin's 0.125% gian. Loosely pack wounds with Hydrogel impregnated Kerlix. Apply Moisture Barrier Paste periwound. Cover with ABD Pads secure with Tegaderm drsg.Daily and prn. Apply Triad Paste to R Hip/R trochanteric areas.Cover with Optifoam drsg. Change every 7 days and prn. Apply Betadine to Medial R Knee. Cover with Optifoam drsg. Change every 7 days and prn. Apply Betadine to R and L Heels. Cover each Heel with Optifoam drsgs. Change every 7 days and prn. Cover Bony Prominences as needed with Optifoam drsgs. Reposition at least every 2 [address] tolerated[address] Pillow between knees. Off-load heels with pillow. APM/SUMI Mattress overlay (15) SEAN (acute kidney injury) (16) Ileostomy prolapse Assessment & Plan: currently reduced but abd distended pending films films reviewed improved okay for diet d/c planning Cornelius Salgado Oct 30, 2019 14:53
--- NOTE | 2019-10-30 15:38 | Pulmonology Progress Note ---
Subjective ROS Limited/Unobtainable: No Interval Events: Looking better Constitutional: Denies: fever HEENT: Repors: no symptoms Respiratory: Reports: no symptoms Cardiovascular: Reports: no symptoms Gastrointestinal/Abdominal: Denies: nausea, vomiting, diarrhea Genitourinary: Reports: no symptoms Psychiatric: Denies: depression Skin: Denies: rash Musculoskeletal: Denies: pain Allergies: Coded Allergies: No Known Allergies (Unverified , 08/15/19) Objective Last 24 Hour Vital Signs Date Time Temp Pulse Resp B/P (MAP) Pulse Ox O2 Delivery O2 Flow Rate FiO2 10/30/19 14:00 62 15 107/66 (80) 99 10/30/19 13:00 63 14 94/54 (67) 97 10/30/19 12:45 64 16 90/54 (66) 97 10/30/19 12:30 64 16 95/53 (67) 98 10/30/19 12:15 65 19 101/62 (75) 97 10/30/19 12:00 Room Air 10/30/19 12:00 98.9 64 13 91/52 (65) 96 10/30/19 11:58 65 10/30/19 11:45 65 15 90/52 (65) 98 10/30/19 11:00 66 14 100/55 (70) 98 10/30/19 10:45 66 14 96/58 (71) 94 10/30/19 10:30 63 17 106/60 (75) 95 10/30/19 10:00 63 15 105/57 (73) 97 10/30/19 09:30 64 15 103/60 (74) 94 10/30/19 09:00 65 14 107/66 (80) 99 10/30/19 08:30 64 16 109/62 (78) 99 10/30/19 08:22 61 10/30/19 08:00 98.0 67 16 105/70 (82) 75 10/30/19 08:00 Room Air 10/30/19 07:30 67 15 113/66 (82) 95 10/30/19 07:00 61 15 94/57 (69) 95 10/30/19 06:30 64 16 99/59 (72) 97 10/30/19 06:15 62 15 103/57 (72) 97 10/30/19 06:15 102/56 10/30/19 06:00 65 15 101/57 (72) 97 10/30/19 05:30 66 14 97/58 (71) 100 10/30/19 05:00 64 17 95/60 (72) 100 10/30/19 04:30 69 17 98/61 (73) 99 10/30/19 04:00 Room Air 10/30/19 04:00 66 10/30/19 04:00 97.8 75 15 112/59 (76) 97 10/30/19 03:30 62 15 130/65 (86) 99 10/30/19 03:00 77 17 150/79 (102) 98 10/30/19 02:30 75 16 137/68 (91) 99 10/30/19 02:00 73 17 130/61 (84) 98 10/30/19 01:30 67 17 120/80 (93) 98 10/30/19 01:00 74 19 126/82 (97) 98 10/30/19 00:30 72 16 128/80 (96) 98 10/30/19 00:00 Room Air 10/30/19 00:00 98.5 74 15 133/72 (92) 99 10/30/19 00:00 70 10/29/19 22:30 73 17 125/71 (89) 97 10/29/19 22:00 71 16 115/80 (92) 99 10/29/19 21:30 61 17 114/82 (93) 98 10/29/19 21:00 70 21 113/63 (80) 98 10/29/19 20:30 67 18 111/64 (80) 98 10/29/19 20:00 75 10/29/19 20:00 Room Air 10/29/19 20:00 98.5 78 20 88/57 (67) 99 10/29/19 19:30 80 16 84/52 (63) 99 10/29/19 19:00 75 16 99/53 (68) 99 10/29/19 18:30 70 14 82/53 (63) 99 10/29/19 18:00 73 16 125/54 (77) 98 10/29/19 17:30 81 14 116/51 (72) 99 10/29/19 17:00 72 16 108/66 (80) 97 10/29/19 16:00 74 10/29/19 16:00 Room Air 10/29/19 16:00 98.2 68 18 109/69 (82) 97 10/29/19 15:39 97.8 Intake and Output 10/29/19 10/30/19 19:00 07:00 Intake Total 1856.166 ml 3006.25 ml Output Total 1920 ml 1510 ml Balance -63.834 ml 1496.25 ml Intake Oral 240 ml 480 ml IV Total 1616.166 ml 2126.25 ml Blood Product 400 ml Output Urine Total 1920 ml 1510 ml # Bowel Movements 1 General Appearance: no acute distress HEENT: normocephalic Respiratory: chest wall non-tender, lungs clear Cardiovascular: normal peripheral pulses, regular rhythm Abdomen: normal bowel sounds Extremities: no cyanosis Laboratory Tests 10/30/19 05:20: White Blood Count 8.5, Red Blood Count 3.17L, Hemoglobin 8.6#L, Hematocrit 26.5L , Mean Corpuscular Volume 84, Mean Corpuscular Hemoglobin 27.0, Mean Corpuscular Hemoglobin Concent 32.3, Red Cell Distribution Width 17.1H, Platelet Count 334, Mean Platelet Volume 4.7L, Neutrophils (%) (Auto) 58.1, Lymphocytes (%) (Auto) 34.3, Monocytes (%) (Auto) 4.1, Eosinophils (%) (Auto) 2.5, Basophils (%) (Auto) 1.0, Sodium Level 127L, Potassium Level 3.7, Chloride Level 95L, Carbon Dioxide Level 24, Anion Gap 8, Blood Urea Nitrogen 9, Creatinine 0.5L, Estimat Glomerular Filtration Rate > 60, Glucose Level 75, Calcium Level 8.0L Current Medications Medications (Trade) Dose Ordered Sig/Mya Route PRN Reason Start Time Stop Time Status Last Admin Dose Admin Acetaminophen (Tylenol) 650 mg Q4H PRN ORAL Mild Pain (Pain Scale 1-3) 10/23/19 17:30 11/22/19 17:29 10/27/19 09:00 Acetaminophen/ Hydrocodone Bitart ([place] 5/325) 1 tab Q4H PRN ORAL Moderate Pain (Pain Scale 4-6) 10/23/19 20:15 10/30/19 20:14 10/30/19 15:17 Acetaminophen/ Hydrocodone Bitart ([place] 5/325) 2 tab Q4H PRN ORAL Severe Pain (Pain Scale 7-10) 10/23/19 20:15 10/30/19 20:14 10/30/19 01:44 Ascorbic Acid (Vitamin C) 500 mg DAILY ORAL 10/24/19 09:00 11/23/19 08:59 10/30/19 08:29 Baclofen (Lioresal) 10 mg THREE TIMES A DAY ORAL 10/23/19 18:00 11/22/19 17:59 10/30/19 13:06 Chlorhexidine Gluconate (Simran-Hex 2%) 1 applic DAILY@2000 TOPIC 10/24/19 20:00 01/22/20 19:59 10/29/19 19:56 Clonazepam (KlonoPIN) 0.5 mg Q8HR ORAL 10/23/19 21:00 10/30/19 20:59 10/30/19 13:06 Dextrose (Dextrose 50%) 25 ml Q30M PRN IV Hypoglycemia 10/23/19 17:30 01/21/20 17:29 Dextrose (Dextrose 50%) 50 ml Q30M PRN IV Hypoglycemia 10/23/19 17:30 01/21/20 17:29 Diphenhydramine HCl (Benadryl) 25 mg Q6H PRN ORAL Itching/Pruritis 10/23/19 17:30 11/22/19 17:29 Docusate Sodium (Colace) 100 mg EVERY 12 HOURS ORAL 10/23/19 21:00 11/22/19 20:59 10/30/19 08:29 Dopamine HCl/ Dextrose 250 ml @ 0 mls/hr Q24H IV 10/24/19 06:15 01/22/20 06:14 10/27/19 04:35 Famotidine (Pepcid) 20 mg DAILY ORAL 10/30/19 09:30 01/28/20 09:29 10/30/19 09:58 Ferrous Sulfate (Feosol) 325 mg DAILY ORAL 10/24/19 09:00 01/22/20 08:59 10/30/19 08:30 Gabapentin (Neurontin) 400 mg Q8HR ORAL 10/23/19 22:00 11/22/19 21:59 10/30/19 13:06 Heparin Sodium (Porcine) (Heparin 5000 units/ml) 5,000 units EVERY 12 HOURS SUBQ 10/24/19 09:00 12/08/19 08:59 10/30/19 08:31 Meropenem 1 gm/ Sodium Chloride 100 ml @ 200 mls/hr Q8H IVPB 10/29/19 18:00 11/03/19 17:59 10/30/19 10:12 Midodrine (Pro-Amatine) 10 mg EVERY 8 HOURS ORAL 10/28/19 14:00 01/21/20 17:59 10/30/19 13:06 Norepinephrine Bitartrate 250 ml @ 0 mls/hr Q24H IV 10/23/19 21:00 01/21/20 20:59 10/29/19 08:50 Ondansetron HCl (Zofran) 4 mg Q6H PRN IVP Nausea & Vomiting 10/23/19 17:30 11/22/19 17:29 Sodium Hypochlorite (Dakin's Quarter Strength) 1 applic DAILY TOPIC 10/25/19 09:00 11/24/19 08:59 10/30/19 08:31 Sodium Chloride 1,000 ml @ 150 mls/hr Q6H40M IV 10/26/19 11:27 11/25/19 11:26 10/30/19 15:19 Vancomycin HCl (Vanco pharmacy to dose) 1 ea DAILY PRN MISC Per rx protocol 10/29/19 16:15 11/28/19 16:14 Vancomycin HCl 1 gm/Dextrose 275 ml @ 183.708 mls/hr Q12H IVPB 10/29/19 20:00 11/03/19 19:59 10/30/19 08:30 Zinc Sulfate (Zinc Sulfate) 220 mg DAILY ORAL 10/24/19 09:00 01/22/20 08:59 10/30/19 08:30 Assessment/Plan Assessment/Plan IMPRESSION: 1. Septic shock. 2. Complicated UTI with history of previous ESBL infection. 3. Paraplegia. 4. Sacral decubitus. 5. [facility] resident. DISCUSSION: PRN pressors. DVT and GI prophylaxes. ID consult noted. I will follow carefully. Ordered Oxygen, doing well on room air at this time. Haily Monzon Omar Syed MD Oct 30, 2019 15:38
--- NOTE | 2019-10-30 16:15 | Cardiac Electrophysiology PN ---
Assessment/Plan Assessment/Plan 1.S/P Septic shock. On Midodrine and IV antibiotic 2. Bradycardia. Resolved. 3. Paraplegia. 4. Urinary tract infection, followed by Dr. Painting on broad-spectrum IV antibiotic. 5. Decubitus ulcers with sacral decubitus. 6. S/P Ileostomy/ 7. Polyuria, DI . Got DDAVP. DW Dr. Lynch Subjective Subjective Alert in NAD in ICU. Off Levo since 10.30 am today. RN at bedside. Getting 2 PRBC for Hb 6.8 Objective Last 24 Hour Vital Signs Date Time Temp Pulse Resp B/P (MAP) Pulse Ox O2 Delivery O2 Flow Rate FiO2 10/30/19 14:00 62 15 107/66 (80) 99 10/30/19 13:00 63 14 94/54 (67) 97 10/30/19 12:45 64 16 90/54 (66) 97 10/30/19 12:30 64 16 95/53 (67) 98 10/30/19 12:15 65 19 101/62 (75) 97 10/30/19 12:00 Room Air 10/30/19 12:00 98.9 64 13 91/52 (65) 96 10/30/19 11:58 65 10/30/19 11:45 65 15 90/52 (65) 98 10/30/19 11:00 66 14 100/55 (70) 98 10/30/19 10:45 66 14 96/58 (71) 94 10/30/19 10:30 63 17 106/60 (75) 95 10/30/19 10:00 63 15 105/57 (73) 97 10/30/19 09:30 64 15 103/60 (74) 94 10/30/19 09:00 65 14 107/66 (80) 99 10/30/19 08:30 64 16 109/62 (78) 99 10/30/19 08:22 61 10/30/19 08:00 98.0 67 16 105/70 (82) 75 10/30/19 08:00 Room Air 10/30/19 07:30 67 15 113/66 (82) 95 10/30/19 07:00 61 15 94/57 (69) 95 10/30/19 06:30 64 16 99/59 (72) 97 8/17/20 06:15 62 15 103/57 (72) 97 10/30/19 06:15 102/56 10/30/19 06:00 65 15 101/57 (72) 97 10/30/19 05:30 66 14 97/58 (71) 100 10/30/19 05:00 64 17 95/60 (72) 100 10/30/19 04:30 69 17 98/61 (73) 99 10/30/19 04:00 Room Air 10/30/19 04:00 66 10/30/19 04:00 97.8 75 15 112/59 (76) 97 10/30/19 03:30 62 15 130/65 (86) 99 10/30/19 03:00 77 17 150/79 (102) 98 10/30/19 02:30 75 16 137/68 (91) 99 10/30/19 02:00 73 17 130/61 (84) 98 10/30/19 01:30 67 17 120/80 (93) 98 10/30/19 01:00 74 19 126/82 (97) 98 10/30/19 00:30 72 16 128/80 (96) 98 10/30/19 00:00 Room Air 10/30/19 00:00 98.5 74 15 133/72 (92) 99 10/30/19 00:00 70 10/29/19 22:30 73 17 125/71 (89) 97 10/29/19 22:00 71 16 115/80 (92) 99 10/29/19 21:30 61 17 114/82 (93) 98 10/29/19 21:00 70 21 113/63 (80) 98 10/29/19 20:30 67 18 111/64 (80) 98 10/29/19 20:00 75 10/29/19 20:00 Room Air 10/29/19 20:00 98.5 78 20 88/57 (67) 99 10/29/19 19:30 80 16 84/52 (63) 99 10/29/19 19:00 75 16 99/53 (68) 99 10/29/19 18:30 70 14 82/53 (63) 99 10/29/19 18:00 73 16 125/54 (77) 98 10/29/19 17:30 81 14 116/51 (72) 99 10/29/19 17:00 72 16 108/66 (80) 97 Intake and Output 10/29/19 10/30/19 19:00 07:00 Intake Total 1856.166 ml 3006.25 ml Output Total 1920 ml 1510 ml Balance -63.834 ml 1496.25 ml Intake Oral 240 ml 480 ml IV Total 1616.166 ml 2126.25 ml Blood Product 400 ml Output Urine Total 1920 ml 1510 ml # Bowel Movements 1 Laboratory Tests Test 10/30/19 05:20 White Blood Count 8.5 K/UL (4.8-10.8) Red Blood Count 3.17 M/UL (4.70-6.10) L Hemoglobin 8.6 G/DL (14.2-18.0) #L Hematocrit 26.5 % (42.0-52.0) L Mean Corpuscular Volume 84 FL (80-99) Mean Corpuscular Hemoglobin 27.0 PG (27.0-31.0) Mean Corpuscular Hemoglobin Concent 32.3 G/DL (32.0-36.0) Red Cell Distribution Width 17.1 % (11.6-14.8) H Platelet Count 334 K/UL (150-450) Mean Platelet Volume 4.7 FL (6.5-10.1) L Neutrophils (%) (Auto) 58.1 % (45.0-75.0) Lymphocytes (%) (Auto) 34.3 % (20.0-45.0) Monocytes (%) (Auto) 4.1 % (1.0-10.0) Eosinophils (%) (Auto) 2.5 % (0.0-3.0) Basophils (%) (Auto) 1.0 % (0.0-2.0) Sodium Level 127 MMOL/L (136-145) L Potassium Level 3.7 MMOL/L (3.5-5.1) Chloride Level 95 MMOL/L (98-107) L Carbon Dioxide Level 24 MMOL/L (21-32) Anion Gap 8 mmol/L (5-15) Blood Urea Nitrogen 9 mg/dL (7-18) Creatinine 0.5 MG/DL (0.55-1.30) L Estimat Glomerular Filtration Rate > 60 mL/min (>60) Glucose Level 75 MG/DL (74-106) Calcium Level 8.0 MG/DL (8.5-10.1) L Objective HEAD AND NECK: No JVD. Right IJ central line. LUNGS: Coarse rhonchi. CARDIOVASCULAR: Regular S1 and S2 with no gallop. ABDOMEN: Soft.S/P Ileostomy EXTREMITIES: No pitting edema, however, has pressure ulcers. Carloz Estes MD Oct 30, 2019 16:15
[2019-10-30] MEDS: Norepinephrine 4mg/NS Premix 250 ML IV SCH (16:40)
[2019-10-30] MEDS: Dyna-Hex 2% Top Sol 2oz TOPIC SCH (20:24)
[2019-10-30] MEDS ORDERED: HYDROcodone/Acetamin 5/325 tab ORAL PRN (21:00)
[2019-10-31] VITALS (40 sets, daily range): BP systolic 87–129; BP diastolic 44–76
[2019-10-31] MEDS: HYDROcodone/Acetamin 5/325 tab ORAL PRN ×5 (03:55→23:14)
[2019-10-31] MEDS: Midodrine 10mg tab ORAL SCH ×3 (05:42→20:27)
[2019-10-31] MEDS: DOPamine 400mg/250ml 250 ML IV SCH (05:42)
[2019-10-31 06:59] LABS: EOSINOPHILS % (AUTO) 2.7 % (0.0-3.0); HEMATOCRIT 29.7 % (42.0-52.0); HEMOGLOBIN 9.5 G/DL (14.2-18.0); LYMPHOCYTES % (AUTO) 14.3 % (20.0-45.0); MEAN CORPUSCULAR VOLUME 83 FL (80-99); MONOCYTES % (AUTO) 8.5 % (1.0-10.0); NEUTROPHILS % (AUTO) 73.5 % (45.0-75.0); PLATELET COUNT 430 K/UL (150-450); RED BLOOD COUNT 3.56 M/UL (4.70-6.10); RED CELL DISTRIBUTION WIDTH 17.5 % (11.6-14.8); WHITE BLOOD COUNT 11.9 K/UL (4.8-10.8)
--- NOTE | 2019-10-31 07:03 | Hematology/Onc Progress Note ---
Assessment/Plan Assessment/Plan Assessment/recs # Anemia rule out gi bleed, as well as iron deficiency --> hgb 8.2-->7.2-->7.1->6.9-->8.6 --> anemia panel ordered--> cw acd --> occult blood pending --> gi eval prn --> transfuse as needed -> transfuse 2 units 10/27 # Coagulopathy with elev ptt/inr --> vitk and ffp as needed --> no bleeding noted at this time # Hypotension likely due to septic shock. Was diuresing heavily at 300 mL an hour. --> Continue Midodrine and dopamine. --> initially on IV antibiotic with vancomycin and meropenem and amikacin-->christel --> in icu, is on pressor --> as per cards # Bradycardia. Continue dopamine. --> cards # Paraplegia. # Urinary tract infection --> followed by Dr. Painitng on broad-spectrum IV antibiotic. # Decubitus ulcers with sacral decubitus. # Dvt heparin sq Appreciate consultation and chandrakant RN Subjective HEENT: Denies: no symptoms, eye pain, blurred vision, tearing, double vision, ear pain, ear discharge, nose pain, nose congestion, throat pain, throat swelling, mouth pain, mouth swelling, other Cardiovascular: Denies: no symptoms, chest pain, edema, irregular heart rate, lightheadedness, palpitations, syncope, other Respiratory: Denies: no symptoms, cough, shortness of breath, SOB with excertion, SOB at rest, sputum, wheezing, other Genitourinary: Denies: no symptoms, burning, discharge, frequency, flank pain, hematuria, incontinence, pain, urgency, other Neurologic/Psychiatric: Denies: no symptoms, anxiety, depressed, emotional problems, headache, numbness, paresthesia, pre-existing deficit, seizure, tingling, tremors, weakness, other Endocrine: Denies: no symptoms, excessive sweating, flushing, intolerance to cold, intolerance to heat, increased hunger, increased thirst, increased urine, unexplained weight gain, unexplained weight loss, other Allergies: Coded Allergies: No Known Allergies (Unverified , 08/15/19) Subjective 10/27 labs again refused this am, yesterday was low, chandrakant rn in icu 10/28 remains in icu, for 2units prbc this am, chandrakant rn, no other events 10/29 s/p prbc, tolerated it well, no bleeding, on 1mcg levo, in icu 10/30 on abx, on levo and overnight no other events, 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 Objective Current Medications Medications (Trade) Dose Ordered Sig/Mya Route PRN Reason Start Time Stop Time Status Last Admin Dose Admin Acetaminophen (Tylenol) 650 mg Q4H PRN ORAL Mild Pain (Pain Scale 1-3) 10/23/19 17:30 11/22/19 17:29 10/30/19 18:03 Acetaminophen/ Hydrocodone Bitart ([place] 5/325) 1 tab Q4H PRN ORAL Moderate Pain (Pain Scale 4-6) 10/30/19 21:00 11/06/19 20:59 Acetaminophen/ Hydrocodone Bitart ([place] 5/325) 2 tab Q4H PRN ORAL Severe Pain (Pain Scale 7-10) 10/30/19 21:00 11/06/19 20:59 10/31/19 03:55 Ascorbic Acid (Vitamin C) 500 mg DAILY ORAL 10/24/19 09:00 11/23/19 08:59 10/30/19 08:29 Baclofen (Lioresal) 10 mg THREE TIMES A DAY ORAL 10/23/19 18:00 11/22/19 17:59 10/30/19 17:01 Chlorhexidine Gluconate (Simran-Hex 2%) 1 applic DAILY@2000 TOPIC 10/24/19 20:00 01/22/20 19:59 10/30/19 20:24 Dextrose (Dextrose 50%) 25 ml Q30M PRN IV Hypoglycemia 10/23/19 17:30 01/21/20 17:29 Dextrose (Dextrose 50%) 50 ml Q30M PRN IV Hypoglycemia 10/23/19 17:30 01/21/20 17:29 Diphenhydramine HCl (Benadryl) 25 mg Q6H PRN ORAL Itching/Pruritis 10/23/19 17:30 11/22/19 17:29 Docusate Sodium (Colace) 100 mg EVERY 12 HOURS ORAL 10/23/19 21:00 11/22/19 20:59 10/30/19 20:24 Dopamine HCl/ Dextrose 250 ml @ 0 mls/hr Q24H IV 10/24/19 06:15 01/22/20 06:14 10/27/19 04:35 Famotidine (Pepcid) 20 mg DAILY ORAL 10/30/19 09:30 01/28/20 09:29 10/30/19 09:58 Ferrous Sulfate (Feosol) 325 mg DAILY ORAL 10/24/19 09:00 01/22/20 08:59 10/30/19 08:30 Gabapentin (Neurontin) 400 mg Q8HR ORAL 10/23/19 22:00 11/22/19 21:59 10/31/19 05:42 Heparin Sodium (Porcine) (Heparin 5000 units/ml) 5,000 units EVERY 12 HOURS SUBQ 10/24/19 09:00 12/08/19 08:59 10/30/19 20:26 Meropenem 1 gm/ Sodium Chloride 100 ml @ 200 mls/hr Q8H IVPB 10/29/19 18:00 11/03/19 17:59 10/31/19 03:57 Midodrine (Pro-Amatine) 10 mg EVERY 8 HOURS ORAL 10/28/19 14:00 01/21/20 17:59 10/31/19 05:42 Norepinephrine Bitartrate 250 ml @ 0 mls/hr Q24H IV 10/23/19 21:00 01/21/20 20:59 10/30/19 16:40 Ondansetron HCl (Zofran) 4 mg Q6H PRN IVP Nausea & Vomiting 10/23/19 17:30 11/22/19 17:29 Sodium Hypochlorite (Dakin's Quarter Strength) 1 applic DAILY TOPIC 10/25/19 09:00 11/24/19 08:59 10/30/19 08:31 Sodium Chloride 1,000 ml @ 150 mls/hr Q6H40M IV 10/26/19 11:27 11/25/19 11:26 10/31/19 04:50 Vancomycin HCl (Vanco pharmacy to dose) 1 ea DAILY PRN MISC Per rx protocol 10/29/19 16:15 11/28/19 16:14 Vancomycin HCl 1 gm/Dextrose 275 ml @ 183.708 mls/hr Q12H IVPB 10/29/19 20:00 8/21/20 19:59 10/30/19 20:24 Zinc Sulfate (Zinc Sulfate) 220 mg DAILY ORAL 10/24/19 09:00 01/22/20 08:59 10/30/19 08:30 Last 24 Hour Vital Signs Date Time Temp Pulse Resp B/P (MAP) Pulse Ox O2 Delivery O2 Flow Rate FiO2 10/31/19 06:00 87 15 109/57 (74) 96 10/31/19 05:42 117/63 10/31/19 05:30 90 13 117/63 (81) 97 10/31/19 05:00 93 17 115/59 (77) 96 10/31/19 04:30 93 17 108/66 (80) 100 10/31/19 04:00 87 10/31/19 04:00 98.6 86 16 125/61 (82) 10/31/19 04:00 Room Air 10/31/19 03:30 89 16 117/68 (84) 98 10/31/19 03:00 92 12 129/63 (85) 97 10/31/19 02:30 85 12 123/62 (82) 99 10/31/19 02:00 82 14 118/61 (80) 99 10/31/19 02:00 82 14 118/61 (80) 99 10/31/19 01:45 76 21 117/60 (79) 100 10/31/19 01:30 74 23 112/58 (76) 100 10/31/19 01:30 74 23 112/58 (76) 100 10/31/19 01:15 73 20 109/63 (78) 100 10/31/19 01:00 77 22 96/56 (69) 96 10/31/19 01:00 77 22 96/56 (69) 96 10/31/19 00:45 74 20 108/62 (77) 93 10/31/19 00:30 73 19 113/64 (80) 97 10/31/19 00:30 73 19 113/64 (80) 97 10/31/19 00:15 73 17 95/59 (71) 98 10/31/19 00:00 73 17 112/68 (83) 100 10/31/19 00:00 74 10/31/19 00:00 Room Air 10/31/19 00:00 98.5 73 17 112/68 (83) 100 10/30/19 23:30 20 120/65 (83) 98 10/30/19 23:00 80 20 124/71 (88) 98 10/30/19 22:30 71 16 117/79 (92) 100 10/30/19 22:00 68 16 130/64 (86) 97 10/30/19 21:30 69 17 113/70 (84) 96 10/30/19 21:00 70 13 111/65 (80) 98 10/30/19 20:30 70 16 107/85 (92) 10/30/19 20:00 Room Air 10/30/19 20:00 66 14 108/58 (75) 89 10/30/19 20:00 70 10/30/19 19:30 98.5 63 13 105/69 (81) 10/30/19 19:00 63 11 93/69 (77) 91 10/30/19 18:45 69 21 117/57 (77) 77 10/30/19 18:30 66 14 102/72 (82) 96 10/30/19 18:15 63 15 119/64 (82) 93 10/30/19 18:00 71 16 129/66 (87) 97 10/30/19 17:45 71 19 111/67 (82) 98 10/30/19 17:30 65 14 118/67 (84) 99 10/30/19 17:15 57 14 120/63 (82) 97 10/30/19 17:00 56 13 109/62 (78) 97 10/30/19 16:40 83/49 10/30/19 16:40 62 13 83/49 (60) 97 10/30/19 16:30 61 13 84/48 (60) 98 10/30/19 16:00 98.9 62 13 93/51 (65) 96 10/30/19 16:00 Room Air 10/30/19 15:30 64 13 102/54 (70) 97 10/30/19 15:24 63 10/30/19 15:00 62 14 99/62 (74) 97 10/30/19 14:00 62 15 107/66 (80) 99 10/30/19 13:00 63 14 94/54 (67) 97 10/30/19 12:45 64 16 90/54 (66) 97 10/30/19 12:30 64 16 95/53 (67) 98 10/30/19 12:15 65 19 101/62 (75) 97 10/30/19 12:00 Room Air 10/30/19 12:00 98.9 64 13 91/52 (65) 96 10/30/19 11:58 65 10/30/19 11:45 65 15 90/52 (65) 98 10/30/19 11:00 66 14 100/55 (70) 98 10/30/19 10:45 66 14 96/58 (71) 94 10/30/19 10:30 63 17 106/60 (75) 95 10/30/19 10:00 63 15 105/57 (73) 97 10/30/19 09:30 64 15 103/60 (74) 94 10/30/19 09:00 65 14 107/66 (80) 99 10/30/19 08:30 64 16 109/62 (78) 99 10/30/19 08:22 61 10/30/19 08:00 98.0 67 16 105/70 (82) 75 10/30/19 08:00 Room Air 10/30/19 07:30 67 15 113/66 (82) 95 10/30/19 07:00 61 15 94/57 (69) 95 10/30/19 06:30 64 16 99/59 (72) 97 10/30/19 06:15 62 15 103/57 (72) 97 10/30/19 06:15 102/56 10/30/19 06:00 65 15 101/57 (72) 97 10/30/19 05:30 66 14 97/58 (71) 100 10/30/19 05:00 64 17 95/60 (72) 100 10/30/19 04:30 69 17 98/61 (73) 99 10/30/19 04:00 Room Air 10/30/19 04:00 66 10/30/19 04:00 97.8 75 15 112/59 (76) 97 10/30/19 04:00 75 15 112/59 (76) 97 10/30/19 03:45 61 17 142/79 (100) 97 10/30/19 03:30 62 15 130/65 (86) 99 10/30/19 03:30 62 15 99 10/30/19 03:15 74 15 142/68 (92) 99 10/30/19 03:00 77 17 150/79 (102) 98 10/30/19 03:00 77 17 150/79 (102) 98 10/30/19 02:45 62 23 137/84 (101) 98 10/30/19 02:30 75 16 137/68 (91) 99 10/30/19 02:30 75 16 137/68 (91) 99 10/30/19 02:15 73 16 119/69 (86) 97 10/30/19 02:00 73 17 130/61 (84) 98 10/30/19 02:00 73 17 130/61 (84) 98 10/30/19 01:45 71 19 117/68 (84) 99 10/30/19 01:34 79 16 80/58 (65) 98 10/30/19 01:30 67 17 98 10/30/19 01:30 67 17 120/80 (93) 98 10/30/19 01:15 62 16 145/73 (97) 97 10/30/19 01:09 62 18 126/82 (97) 97 10/30/19 01:00 74 19 126/82 (97) 98 10/30/19 01:00 74 19 98 10/30/19 00:45 79 16 134/78 (96) 98 10/30/19 00:30 75 15 137/76 (96) 99 10/30/19 00:30 72 16 128/80 (96) 98 10/30/19 00:15 72 16 128/80 (96) 98 10/30/19 00:00 Room Air 10/30/19 00:00 98.5 74 15 133/72 (92) 99 10/30/19 00:00 74 15 133/72 (92) 99 10/30/19 00:00 70 10/29/19 22:30 73 17 125/71 (89) 97 10/29/19 22:00 71 16 115/80 (92) 99 10/29/19 21:30 61 17 114/82 (93) 98 10/29/19 21:00 70 21 113/63 (80) 98 10/29/19 20:30 67 18 111/64 (80) 98 10/29/19 20:00 75 10/29/19 20:00 Room Air 8/16/20 20:00 98.5 78 20 88/57 (67) 99 10/29/19 19:30 80 16 84/52 (63) 99 10/29/19 19:00 75 16 99/53 (68) 99 10/29/19 18:30 70 14 82/53 (63) 99 10/29/19 18:00 73 16 125/54 (77) 98 10/29/19 17:30 81 14 116/51 (72) 99 10/29/19 17:00 72 16 108/66 (80) 97 10/29/19 16:00 74 10/29/19 16:00 Room Air 10/29/19 16:00 98.2 68 18 109/69 (82) 97 10/29/19 15:39 97.8 10/29/19 15:00 70 17 112/63 (79) 98 10/29/19 14:30 71 21 107/63 (78) 96 10/29/19 14:00 73 18 120/52 (74) 97 10/29/19 13:30 73 19 111/58 (75) 98 10/29/19 13:00 78 20 121/67 (85) 99 10/29/19 12:00 97.8 67 17 119/66 (83) 97 10/29/19 12:00 Room Air 10/29/19 12:00 66 10/29/19 11:30 79 17 123/55 (77) 98 10/29/19 11:00 72 18 93/53 (66) 98 10/29/19 10:30 79 18 99/56 (70) 98 10/29/19 10:00 76 15 103/57 (72) 99 10/29/19 09:30 74 13 100/60 (73) 100 10/29/19 09:00 69 15 110/54 (72) 99 10/29/19 08:50 133/76 10/29/19 08:30 63 17 101/58 (72) 98 10/29/19 08:00 97.7 60 18 107/62 (77) 98 10/29/19 08:00 59 10/29/19 08:00 Room Air Intake and Output 10/30/19 10/31/19 19:00 07:00 Intake Total 2486.300 ml 1682.5 ml Output Total 1440 ml 2090 ml Balance 1046.300 ml -407.5 ml Intake Oral 300 ml IV Total 2186.300 ml 1682.5 ml Output Urine Total 1190 ml 2090 ml Stool Total 250 ml # Bowel Movements 1 1 Labs Test 10/29/19 06:00 10/29/19 07:10 10/29/19 08:35 10/30/19 05:20 White Blood Count 8.8 K/UL (4.8-10.8) 8.5 K/UL (4.8-10.8) Red Blood Count 2.60 M/UL (4.70-6.10) 3.17 M/UL (4.70-6.10) Hemoglobin 6.6 G/DL (14.2-18.0) 8.6 G/DL (14.2-18.0) Hematocrit 21.7 % (42.0-52.0) 26.5 % (42.0-52.0) Mean Corpuscular Volume 83 FL (80-99) 84 FL (80-99) Mean Corpuscular Hemoglobin 25.3 PG (27.0-31.0) 27.0 PG (27.0-31.0) Mean Corpuscular Hemoglobin Concent 30.4 G/DL (32.0-36.0) 32.3 G/DL (32.0-36.0) Red Cell Distribution Width 19.0 % (11.6-14.8) 17.1 % (11.6-14.8) Platelet Count 372 K/UL (150-450) 334 K/UL (150-450) Mean Platelet Volume 4.3 FL (6.5-10.1) 4.7 FL (6.5-10.1) Neutrophils (%) (Auto) % (45.0-75.0) 58.1 % (45.0-75.0) Lymphocytes (%) (Auto) % (20.0-45.0) 34.3 % (20.0-45.0) Monocytes (%) (Auto) % (1.0-10.0) 4.1 % (1.0-10.0) Eosinophils (%) (Auto) % (0.0-3.0) 2.5 % (0.0-3.0) Basophils (%) (Auto) % (0.0-2.0) 1.0 % (0.0-2.0) Differential Total Cells Counted 100 Neutrophils % (Manual) 54 % (45-75) Lymphocytes % (Manual) 38 % (20-45) Monocytes % (Manual) 5 % (1-10) Eosinophils % (Manual) 2 % (0-3) Basophils % (Manual) 1 % (0-2) Band Neutrophils 0 % (0-8) Platelet Estimate Adequate Platelet Morphology Normal Hypochromasia 4+ Anisocytosis 2+ Sodium Level 134 MMOL/L (136-145) 127 MMOL/L (136-145) Potassium Level 4.1 MMOL/L (3.5-5.1) 3.7 MMOL/L (3.5-5.1) Chloride Level 101 MMOL/L (98-107) 95 MMOL/L (98-107) Carbon Dioxide Level 29 MMOL/L (21-32) 24 MMOL/L (21-32) Anion Gap 5 mmol/L (5-15) 8 mmol/L (5-15) Blood Urea Nitrogen 17 mg/dL (7-18) 9 mg/dL (7-18) Creatinine 0.6 MG/DL (0.55-1.30) 0.5 MG/DL (0.55-1.30) Estimat Glomerular Filtration Rate > 60 mL/min (>60) > 60 mL/min (>60) Glucose Level 96 MG/DL (74-106) 75 MG/DL (74-106) Calcium Level 8.4 MG/DL (8.5-10.1) 8.0 MG/DL (8.5-10.1) Phosphorus Level 2.9 MG/DL (2.5-4.9) 3.3 MG/DL (2.5-4.9) Magnesium Level 1.8 MG/DL (1.8-2.4) 1.7 MG/DL (1.8-2.4) Vancomycin Level Trough 14.0 ug/mL (5.0-12.0) Activated Partial Thromboplast Time 36 SEC (23-33) Test 10/31/19 06:52 Height (Feet): 5 Height (Inches): 7.00 Weight (Pounds): 128 Objective Physical Exam General Appearance: lethargic Lines, tubes and drains: peripheral, central line HEENT: normocephalic Neck: non-tender, normal alignment Respiratory/Chest: lungs clear Cardiovascular/Chest: normal peripheral pulses, normal rate, regular rhythm Abdomen: normal bowel sounds, non tender Martínez Capps MD Oct 31, 2019 07:03
[2019-10-31 07:37] LABS: ANION GAP 11 mmol/L (5-15); BLOOD UREA NITROGEN 13 mg/dL (7-18); CALCIUM 8.4 MG/DL (8.5-10.1); CARBON DIOXIDE 25 MMOL/L (21-32); CHLORIDE 100 MMOL/L (98-107); CREATININE 0.6 MG/DL (0.55-1.30); SODIUM 136 MMOL/L (136-145)
[2019-10-31] MEDS: Docusate 100mg cap ORAL SCH ×2 (08:06→20:27)
[2019-10-31] MEDS: Vancomycin 1 GM in D5W 275 ML IVPB SCH ×2 (08:06→20:26)
[2019-10-31] MEDS: Ascorbic Acid 500mg tab ORAL SCH (08:07)
[2019-10-31] MEDS: Zinc Sulfate 220mg ORAL SCH (08:07)
[2019-10-31] MEDS: Heparin 5000 units/ml inj SUBQ SCH ×2 (08:09→20:29)
--- NOTE | 2019-10-31 08:24 | Nephrology Progress Note ---
Assessment/Plan Plan #Polyuria - r/o DI vs dopamine effect??- however sodium remains in normal range #Shock #UTI # infected sacral pressure ulcer #Acute metabolic encephalopathy #Paraplegia #Sacral pressure ulcer #Hypokalemia #Anemia - continue NS hydration - increased NS to 150 cc/hr - resume desmopressin at 2 BID - replete mag and K - weaned off levophed - continue midodrine 10 TID - antibiotics per ID - continue pressors to maintain MAP > 65 - monitor lytes - monitor for vanoc toxicity - avoid nephrotoxins - daily weights - strict I&Os time spent 70 min- greater than 50% on care coordination and counseling Subjective ROS Limited/Unobtainable: No Subjective sodium 136 s/p 2 units of prbc yesterday off levo Objective Objective Last 24 Hour Vital Signs Date Time Temp Pulse Resp B/P (MAP) Pulse Ox O2 Delivery O2 Flow Rate FiO2 10/31/19 06:00 87 15 109/57 (74) 96 10/31/19 05:42 117/63 10/31/19 05:30 90 13 117/63 (81) 97 10/31/19 05:00 93 17 115/59 (77) 96 10/31/19 04:30 93 17 108/66 (80) 100 10/31/19 04:00 87 10/31/19 04:00 98.6 86 16 125/61 (82) 10/31/19 04:00 Room Air 10/31/19 03:30 89 16 117/68 (84) 98 10/31/19 03:00 92 12 129/63 (85) 97 10/31/19 02:30 85 12 123/62 (82) 99 10/31/19 02:00 82 14 118/61 (80) 99 10/31/19 02:00 82 14 118/61 (80) 99 10/31/19 01:45 76 21 117/60 (79) 100 10/31/19 01:30 74 23 112/58 (76) 100 10/31/19 01:30 74 23 112/58 (76) 100 10/31/19 01:15 73 20 109/63 (78) 100 10/31/19 01:00 77 22 96/56 (69) 96 10/31/19 01:00 77 22 96/56 (69) 96 10/31/19 00:45 74 20 108/62 (77) 93 10/31/19 00:30 73 19 113/64 (80) 97 10/31/19 00:30 73 19 113/64 (80) 97 10/31/19 00:15 73 17 95/59 (71) 98 10/31/19 00:00 73 17 112/68 (83) 100 10/31/19 00:00 74 10/31/19 00:00 Room Air 10/31/19 00:00 98.5 73 17 112/68 (83) 100 10/30/19 23:30 20 120/65 (83) 98 10/30/19 23:00 80 20 124/71 (88) 98 10/30/19 22:30 71 16 117/79 (92) 100 10/30/19 22:00 68 16 130/64 (86) 97 10/30/19 21:30 69 17 113/70 (84) 96 10/30/19 21:00 70 13 111/65 (80) 98 10/30/19 20:30 70 16 107/85 (92) 10/30/19 20:00 Room Air 10/30/19 20:00 66 14 108/58 (75) 89 10/30/19 20:00 70 10/30/19 19:30 98.5 63 13 105/69 (81) 10/30/19 19:00 63 11 93/69 (77) 91 10/30/19 18:45 69 21 117/57 (77) 77 10/30/19 18:30 66 14 102/72 (82) 96 10/30/19 18:15 63 15 119/64 (82) 93 10/30/19 18:00 71 16 129/66 (87) 97 10/30/19 17:45 71 19 111/67 (82) 98 10/30/19 17:30 65 14 118/67 (84) 99 10/30/19 17:15 57 14 120/63 (82) 97 10/30/19 17:00 56 13 109/62 (78) 97 10/30/19 16:40 83/49 10/30/19 16:40 62 13 83/49 (60) 97 10/30/19 16:30 61 13 84/48 (60) 98 10/30/19 16:00 98.9 62 13 93/51 (65) 96 10/30/19 16:00 Room Air 10/30/19 15:30 64 13 102/54 (70) 97 10/30/19 15:24 63 10/30/19 15:00 62 14 99/62 (74) 97 10/30/19 14:00 62 15 107/66 (80) 99 10/30/19 13:00 63 14 94/54 (67) 97 10/30/19 12:45 64 16 90/54 (66) 97 10/30/19 12:30 64 16 95/53 (67) 98 10/30/19 12:15 65 19 101/62 (75) 97 10/30/19 12:00 Room Air 10/30/19 12:00 98.9 64 13 91/52 (65) 96 10/30/19 11:58 65 10/30/19 11:45 65 15 90/52 (65) 98 10/30/19 11:00 66 14 100/55 (70) 98 10/30/19 10:45 66 14 96/58 (71) 94 10/30/19 10:30 63 17 106/60 (75) 95 10/30/19 10:00 63 15 105/57 (73) 97 10/30/19 09:30 64 15 103/60 (74) 94 10/30/19 09:00 65 14 107/66 (80) 99 10/30/19 08:30 64 16 109/62 (78) 99 Intake and Output 10/30/19 10/31/19 19:00 07:00 Intake Total 2486.300 ml 1682.5 ml Output Total 1440 ml 2090 ml Balance 1046.300 ml -407.5 ml Intake Oral 300 ml IV Total 2186.300 ml 1682.5 ml Output Urine Total 1190 ml 2090 ml Stool Total 250 ml # Bowel Movements 1 1 Laboratory Tests 10/31/19 06:52: White Blood Count 11.9H, Red Blood Count 3.56L, Hemoglobin 9.5L, Hematocrit 29.7L, Mean Corpuscular Volume 83, Mean Corpuscular Hemoglobin 26.7L, Mean Corpuscular Hemoglobin Concent 32.1, Red Cell Distribution Width 17.5H, Platelet Count 430, Mean Platelet Volume 4.7L, Neutrophils (%) (Auto) 73.5, Lymphocytes (%) (Auto) 14.3L, Monocytes (%) (Auto) 8.5, Eosinophils (%) (Auto) 2.7, Basophils (%) (Auto) 1.0, Sodium Level 136, Potassium Level 4.0, Chloride Level 100, Carbon Dioxide Level 25, Anion Gap 11, Blood Urea Nitrogen 13, Creatinine 0.6, Estimat Glomerular Filtration Rate > 60, Glucose Level 122H, Calcium Level 8.4L, Phosphorus Level 3.0, Magnesium Level 1.7L, Vancomycin Level Trough 16.8H Height (Feet): 5 Height (Inches): 7.00 Weight (Pounds): 128 Sienna Georges M.D. Oct 31, 2019 08:24
[2019-10-31] MEDS: Dakin's 0.125% Soln (Quarter Strength) 16oz TOPIC SCH (08:58)
[2019-10-31] MEDS ORDERED: clonazePAM 0.5mg tab ORAL PRN ×2 (09:30→23:00)
--- NOTE | 2019-10-31 10:38 | General Progress Note ---
Assessment/Plan Problem List: (1) Anemia ICD Codes: D64.9 - Anemia, unspecified SNOMED: 805076133 (2) Encephalopathy ICD Codes: G93.40 - Encephalopathy, unspecified SNOMED: 66997954 (3) Drug (multiple) resistant infection SNOMED: 20848229, 91743892521537 (4) Urinary tract infection in male ICD Codes: N39.0 - Urinary tract infection, site not specified SNOMED: 36341829, 338487567 (5) Hypokalemia ICD Codes: E87.6 - Hypokalemia SNOMED: 33193736 (6) Femur fracture ICD Codes: S72.90XA - Unspecified fracture of unspecified femur, initial encounter for closed fracture SNOMED: 08984222 (7) Hyponatremia ICD Codes: E87.1 - Hypo-osmolality and hyponatremia SNOMED: 13006277 (8) Sepsis ICD Codes: A41.9 - Sepsis, unspecified organism SNOMED: 85120350 (9) UTI (urinary tract infection) ICD Codes: N39.0 - Urinary tract infection, site not specified SNOMED: 28772443 (10) Hypotension ICD Codes: I95.9 - Hypotension, unspecified SNOMED: 86076460 (11) Decubital ulcer ICD Codes: L89.90 - Pressure ulcer of unspecified site, unspecified stage SNOMED: 611488702 (12) SEAN (acute kidney injury) ICD Codes: N17.9 - Acute kidney failure, unspecified SNOMED: 3736596, 77867789 Status: stable Assessment/Plan: 59 year old man who presents from [facility] with weakness, encephalopathy, concern for septic shock, possible from UTI vs infected sacral pressure ulcer #Septic shock- improving #Proteus UTI #Acute metabolic encephalopathy -improving #Paraplegia #Sacral pressure ulcer, present on admit -Transfer to telel -Off vasopressors -off amikacin, continue meropenem and vancomycin -Spoke with surgery, sacral pressure ulcer does not appear to be infected -Local wound care and offloading #Sinus Bradycardia - improving -continue telemetry -EP following #Hypokalemia -refusing labs #Anemia, acute on chronic -2 units RBC 10/28 -Hematology following VTE PPx HSQ Full Code I spent 36 minutes on this patient's case, and 20mins was dedicated to couseling and care coordination. Discussed with all consultants, Charge nurse and RNs. Subjective Date patient seen: Oct 31, 2019 Time patient seen: 08:00 ROS Limited/Unobtainable: No Constitutional: Denies: fever, malaise, weakness HEENT: Denies: blurred vision, double vision, nose congestion, throat pain Cardiovascular: Denies: chest pain, edema, lightheadedness, palpitations Respiratory: Denies: cough, shortness of breath, SOB with excertion, SOB at rest Gastrointestinal/Abdominal: Denies: abdomen distended, abdominal pain, black stools, tarry stools, blood in stool Genitourinary: Denies: burning, discharge, frequency, flank pain, hematuria Neurologic/Psychiatric: Denies: anxiety, depressed, emotional problems, headache Endocrine: Denies: excessive sweating, intolerance to cold, intolerance to heat Hematologic/Lymphatic: Reports: anemia; Denies: easy bleeding, easy bruising Allergies: Coded Allergies: No Known Allergies (Unverified , 08/15/19) All Systems: reviewed and negative except above Subjective He sates he feels fine. In no pain. Off Levophed for 24 hrs. Objective Last 24 Hour Vital Signs Date Time Temp Pulse Resp B/P (MAP) Pulse Ox O2 Delivery O2 Flow Rate FiO2 10/31/19 06:00 87 15 109/57 (74) 96 10/31/19 05:42 117/63 10/31/19 05:30 90 13 117/63 (81) 97 10/31/19 05:00 93 17 115/59 (77) 96 10/31/19 04:30 93 17 108/66 (80) 100 10/31/19 04:00 87 10/31/19 04:00 98.6 86 16 125/61 (82) 10/31/19 04:00 Room Air 10/31/19 03:30 89 16 117/68 (84) 98 10/31/19 03:00 92 12 129/63 (85) 97 10/31/19 02:30 85 12 123/62 (82) 99 10/31/19 02:00 82 14 118/61 (80) 99 10/31/19 02:00 82 14 118/61 (80) 99 10/31/19 01:45 76 21 117/60 (79) 100 10/31/19 01:30 74 23 112/58 (76) 100 10/31/19 01:30 74 23 112/58 (76) 100 10/31/19 01:15 73 20 109/63 (78) 100 10/31/19 01:00 77 22 96/56 (69) 96 10/31/19 01:00 77 22 96/56 (69) 96 10/31/19 00:45 74 20 108/62 (77) 93 10/31/19 00:30 73 19 113/64 (80) 97 10/31/19 00:30 73 19 113/64 (80) 97 10/31/19 00:15 73 17 95/59 (71) 98 10/31/19 00:00 73 17 112/68 (83) 100 10/31/19 00:00 74 10/31/19 00:00 Room Air 10/31/19 00:00 98.5 73 17 112/68 (83) 100 10/30/19 23:30 20 120/65 (83) 98 10/30/19 23:00 80 20 124/71 (88) 98 10/30/19 22:30 71 16 117/79 (92) 100 10/30/19 22:00 68 16 130/64 (86) 97 10/30/19 21:30 69 17 113/70 (84) 96 10/30/19 21:00 70 13 111/65 (80) 98 10/30/19 20:30 70 16 107/85 (92) 10/30/19 20:00 Room Air 10/30/19 20:00 66 14 108/58 (75) 89 10/30/19 20:00 70 10/30/19 19:30 98.5 63 13 105/69 (81) 10/30/19 19:00 63 11 93/69 (77) 91 10/30/19 18:45 69 21 117/57 (77) 77 10/30/19 18:30 66 14 102/72 (82) 96 10/30/19 18:15 63 15 119/64 (82) 93 10/30/19 18:00 71 16 129/66 (87) 97 10/30/19 17:45 71 19 111/67 (82) 98 10/30/19 17:30 65 14 118/67 (84) 99 10/30/19 17:15 57 14 120/63 (82) 97 10/30/19 17:00 56 13 109/62 (78) 97 10/30/19 16:40 83/49 10/30/19 16:40 62 13 83/49 (60) 97 10/30/19 16:30 61 13 84/48 (60) 98 10/30/19 16:00 98.9 62 13 93/51 (65) 96 10/30/19 16:00 Room Air 10/30/19 15:30 64 13 102/54 (70) 97 10/30/19 15:24 63 10/30/19 15:00 62 14 99/62 (74) 97 10/30/19 14:00 62 15 107/66 (80) 99 10/30/19 13:00 63 14 94/54 (67) 97 10/30/19 12:45 64 16 90/54 (66) 97 10/30/19 12:30 64 16 95/53 (67) 98 10/30/19 12:15 65 19 101/62 (75) 97 10/30/19 12:00 Room Air 10/30/19 12:00 98.9 64 13 91/52 (65) 96 10/30/19 11:58 65 10/30/19 11:45 65 15 90/52 (65) 98 10/30/19 11:00 66 14 100/55 (70) 98 10/30/19 10:45 66 14 96/58 (71) 94 Intake and Output 10/30/19 10/31/19 19:00 07:00 Intake Total 2486.300 ml 1682.5 ml Output Total 1440 ml 2290 ml Balance 1046.300 ml -607.5 ml Intake Oral 300 ml IV Total 2186.300 ml 1682.5 ml Output Urine Total 1190 ml 2290 ml Stool Total 250 ml # Bowel Movements 1 1 Laboratory Tests 10/31/19 06:52: White Blood Count 11.9H, Red Blood Count 3.56L, Hemoglobin 9.5L, Hematocrit 29.7L, Mean Corpuscular Volume 83, Mean Corpuscular Hemoglobin 26.7L, Mean Corpuscular Hemoglobin Concent 32.1, Red Cell Distribution Width 17.5H, Platelet Count 430, Mean Platelet Volume 4.7L, Neutrophils (%) (Auto) 73.5, Lymphocytes (%) (Auto) 14.3L, Monocytes (%) (Auto) 8.5, Eosinophils (%) (Auto) 2.7, Basophils (%) (Auto) 1.0, Sodium Level 136, Potassium Level 4.0, Chloride Level 100, Carbon Dioxide Level 25, Anion Gap 11, Blood Urea Nitrogen 13, Creatinine 0.6, Estimat Glomerular Filtration Rate > 60, Glucose Level 122H, Calcium Level 8.4L, Phosphorus Level 3.0, Magnesium Level 1.7L, Vancomycin Level Trough 16.8H Height (Feet): 5 Height (Inches): 7.00 Weight (Pounds): 128 General Appearance: no apparent distress, alert, cachetic EENT: PERRL/EOMI, normal ENT inspection Neck: non-tender, normal alignment, supple Cardiovascular: normal peripheral pulses, normal rate, regular rhythm, no gallop/murmur, no JVD Respiratory/Chest: chest wall non-tender, lungs clear, normal breath sounds, no respiratory distress, no accessory muscle use Abdomen: normal bowel sounds, non tender, soft, no organomegaly, no mass Pelvis: normal external exam Extremities: normal range of motion, non-tender Edema: no edema noted Arm (L), no edema noted Arm (R), no edema noted Leg (L), no edema noted Leg (R), no edema noted Pedal (L), no edema noted Pedal (R), no edema noted Generalized Neurologic: alert, responsive, normal mood/affect, motor weakness Art Hensley M.D. Oct 31, 2019 10:38
--- NOTE | 2019-10-31 10:56 | Pulmonology Progress Note ---
Subjective ROS Limited/Unobtainable: No Interval Events: Looking better Constitutional: Denies: fever HEENT: Repors: no symptoms Respiratory: Reports: no symptoms Cardiovascular: Reports: no symptoms Gastrointestinal/Abdominal: Denies: nausea, vomiting, diarrhea Genitourinary: Reports: no symptoms Psychiatric: Denies: depression Skin: Denies: rash Musculoskeletal: Denies: pain Allergies: Coded Allergies: No Known Allergies (Unverified , 08/15/19) All Systems: reviewed and negative except above Objective Last 24 Hour Vital Signs Date Time Temp Pulse Resp B/P (MAP) Pulse Ox O2 Delivery O2 Flow Rate FiO2 10/31/19 10:30 75 13 92/57 (69) 97 10/31/19 10:00 74 13 99/58 (72) 97 10/31/19 09:30 76 13 91/60 (70) 96 10/31/19 09:00 78 14 97/63 (74) 96 10/31/19 08:30 83 13 94/61 (72) 95 10/31/19 08:00 98.5 14 106/59 (75) 98 10/31/19 07:30 80 14 103/61 (75) 97 10/31/19 07:00 85 16 96/62 (73) 94 10/31/19 06:00 87 15 109/57 (74) 96 10/31/19 05:42 117/63 10/31/19 05:30 90 13 117/63 (81) 97 10/31/19 05:00 93 17 115/59 (77) 96 10/31/19 04:30 93 17 108/66 (80) 100 10/31/19 04:00 87 10/31/19 04:00 98.6 86 16 125/61 (82) 10/31/19 04:00 Room Air 10/31/19 03:30 89 16 117/68 (84) 98 10/31/19 03:00 92 12 129/63 (85) 97 10/31/19 02:30 85 12 123/62 (82) 99 10/31/19 02:00 82 14 118/61 (80) 99 10/31/19 02:00 82 14 118/61 (80) 99 10/31/19 01:45 76 21 117/60 (79) 100 10/31/19 01:30 74 23 112/58 (76) 100 10/31/19 01:30 74 23 112/58 (76) 100 10/31/19 01:15 73 20 109/63 (78) 100 10/31/19 01:00 77 22 96/56 (69) 96 10/31/19 01:00 77 22 96/56 (69) 96 10/31/19 00:45 74 20 108/62 (77) 93 10/31/19 00:30 73 19 113/64 (80) 97 10/31/19 00:30 73 19 113/64 (80) 97 10/31/19 00:15 73 17 95/59 (71) 98 10/31/19 00:00 73 17 112/68 (83) 100 10/31/19 00:00 74 10/31/19 00:00 Room Air 10/31/19 00:00 98.5 73 17 112/68 (83) 100 10/30/19 23:30 20 120/65 (83) 98 10/30/19 23:00 80 20 124/71 (88) 98 10/30/19 22:30 71 16 117/79 (92) 100 10/30/19 22:00 68 16 130/64 (86) 97 10/30/19 21:30 69 17 113/70 (84) 96 10/30/19 21:00 70 13 111/65 (80) 98 10/30/19 20:30 70 16 107/85 (92) 10/30/19 20:00 Room Air 10/30/19 20:00 66 14 108/58 (75) 89 10/30/19 20:00 70 10/30/19 19:30 98.5 63 13 105/69 (81) 10/30/19 19:00 63 11 93/69 (77) 91 10/30/19 18:45 69 21 117/57 (77) 77 10/30/19 18:30 66 14 102/72 (82) 96 10/30/19 18:15 63 15 119/64 (82) 93 10/30/19 18:00 71 16 129/66 (87) 97 10/30/19 17:45 71 19 111/67 (82) 98 10/30/19 17:30 65 14 118/67 (84) 99 10/30/19 17:15 57 14 120/63 (82) 97 8/17/20 17:00 56 13 109/62 (78) 97 10/30/19 16:40 83/49 10/30/19 16:40 62 13 83/49 (60) 97 10/30/19 16:30 61 13 84/48 (60) 98 10/30/19 16:00 98.9 62 13 93/51 (65) 96 10/30/19 16:00 Room Air 10/30/19 15:30 64 13 102/54 (70) 97 10/30/19 15:24 63 10/30/19 15:00 62 14 99/62 (74) 97 10/30/19 14:00 62 15 107/66 (80) 99 10/30/19 13:00 63 14 94/54 (67) 97 10/30/19 12:45 64 16 90/54 (66) 97 10/30/19 12:30 64 16 95/53 (67) 98 10/30/19 12:15 65 19 101/62 (75) 97 10/30/19 12:00 Room Air 10/30/19 12:00 98.9 64 13 91/52 (65) 96 10/30/19 11:58 65 10/30/19 11:45 65 15 90/52 (65) 98 10/30/19 11:00 66 14 100/55 (70) 98 Intake and Output 10/30/19 10/31/19 19:00 07:00 Intake Total 2486.300 ml 1682.5 ml Output Total 1440 ml 2290 ml Balance 1046.300 ml -607.5 ml Intake Oral 300 ml IV Total 2186.300 ml 1682.5 ml Output Urine Total 1190 ml 2290 ml Stool Total 250 ml # Bowel Movements 1 1 General Appearance: no acute distress HEENT: normocephalic Respiratory: chest wall non-tender, lungs clear Cardiovascular: normal peripheral pulses, regular rhythm Abdomen: normal bowel sounds Extremities: no cyanosis Laboratory Tests 10/31/19 06:52: White Blood Count 11.9H, Red Blood Count 3.56L, Hemoglobin 9.5L, Hematocrit 29.7L, Mean Corpuscular Volume 83, Mean Corpuscular Hemoglobin 26.7L, Mean Corpuscular Hemoglobin Concent 32.1, Red Cell Distribution Width 17.5H, Platelet Count 430, Mean Platelet Volume 4.7L, Neutrophils (%) (Auto) 73.5, Lymphocytes (%) (Auto) 14.3L, Monocytes (%) (Auto) 8.5, Eosinophils (%) (Auto) 2.7, Basophils (%) (Auto) 1.0, Sodium Level 136, Potassium Level 4.0, Chloride Level 100, Carbon Dioxide Level 25, Anion Gap 11, Blood Urea Nitrogen 13, Creatinine 0.6, Estimat Glomerular Filtration Rate > 60, Glucose Level 122H, Calcium Level 8.4L, Phosphorus Level 3.0, Magnesium Level 1.7L, Vancomycin Level Trough 16.8H Current Medications Medications (Trade) Dose Ordered Sig/Mya Route PRN Reason Start Time Stop Time Status Last Admin Dose Admin Acetaminophen (Tylenol) 650 mg Q4H PRN ORAL Mild Pain (Pain Scale 1-3) 10/23/19 17:30 11/22/19 17:29 10/30/19 18:03 Acetaminophen/ Hydrocodone Bitart ([place] 5/325) 1 tab Q4H PRN ORAL Moderate Pain (Pain Scale 4-6) 10/30/19 21:00 11/06/19 20:59 Acetaminophen/ Hydrocodone Bitart ([place] 5/325) 2 tab Q4H PRN ORAL Severe Pain (Pain Scale 7-10) 10/30/19 21:00 11/06/19 20:59 10/31/19 08:13 Ascorbic Acid (Vitamin C) 500 mg DAILY ORAL 10/24/19 09:00 11/23/19 08:59 10/31/19 08:07 Baclofen (Lioresal) 10 mg THREE TIMES A DAY ORAL 10/23/19 18:00 11/22/19 17:59 10/31/19 08:06 Chlorhexidine Gluconate (Simran-Hex 2%) 1 applic DAILY@1999 TOPIC 10/24/19 20:00 01/22/20 19:59 10/30/19 20:24 Clonazepam (KlonoPIN) 0.5 mg Q8H PRN ORAL For Anxiety 10/31/19 09:30 11/07/19 09:29 Dextrose (Dextrose 50%) 25 ml Q30M PRN IV Hypoglycemia 10/23/19 17:30 01/21/20 17:29 Dextrose (Dextrose 50%) 50 ml Q30M PRN IV Hypoglycemia 10/23/19 17:30 01/21/20 17:29 Diphenhydramine HCl (Benadryl) 25 mg Q6H PRN ORAL Itching/Pruritis 10/23/19 17:30 11/22/19 17:29 Docusate Sodium (Colace) 100 mg EVERY 12 HOURS ORAL 10/23/19 21:00 11/22/19 20:59 10/31/19 08:06 Dopamine HCl/ Dextrose 250 ml @ 0 mls/hr Q24H IV 10/24/19 06:15 01/22/20 06:14 10/27/19 04:35 Famotidine (Pepcid) 20 mg DAILY ORAL 10/30/19 09:30 01/28/20 09:29 10/31/19 08:06 Ferrous Sulfate (Feosol) 325 mg DAILY ORAL 10/24/19 09:00 01/22/20 08:59 10/31/19 08:06 Gabapentin (Neurontin) 400 mg Q8HR ORAL 10/23/19 22:00 11/22/19 21:59 10/31/19 05:42 Heparin Sodium (Porcine) (Heparin 5000 units/ml) 5,000 units EVERY 12 HOURS SUBQ 10/24/19 09:00 12/08/19 08:59 10/31/19 08:09 Meropenem 1 gm/ Sodium Chloride 100 ml @ 200 mls/hr Q8H IVPB 10/29/19 18:00 11/03/19 17:59 10/31/19 10:35 Midodrine (Pro-Amatine) 10 mg EVERY 8 HOURS ORAL 10/28/19 14:00 01/21/20 17:59 10/31/19 05:42 Norepinephrine Bitartrate 250 ml @ 0 mls/hr Q24H IV 10/23/19 21:00 01/21/20 20:59 10/30/19 16:40 Ondansetron HCl (Zofran) 4 mg Q6H PRN IVP Nausea & Vomiting 10/23/19 17:30 11/22/19 17:29 Sodium Hypochlorite (Dakin's Quarter Strength) 1 applic DAILY TOPIC 10/25/19 09:00 11/24/19 08:59 10/31/19 08:58 Sodium Chloride 1,000 ml @ 150 mls/hr Q6H40M IV 10/26/19 11:27 11/25/19 11:26 10/31/19 04:50 Vancomycin HCl (Vanco pharmacy to dose) 1 ea DAILY PRN MISC Per rx protocol 10/29/19 16:15 11/28/19 16:14 Vancomycin HCl 1 gm/Dextrose 275 ml @ 183.708 mls/hr Q12H IVPB 10/29/19 20:00 11/03/19 19:59 10/31/19 08:06 Zinc Sulfate (Zinc Sulfate) 220 mg DAILY ORAL 10/24/19 09:00 01/22/20 08:59 10/31/19 08:07 Assessment/Plan Assessment/Plan IMPRESSION: 1. Septic shock. 2. Complicated UTI with history of previous ESBL infection. 3. Paraplegia. 4. Sacral decubitus. 5. USP resident. DISCUSSION: PRN pressors. DVT and GI prophylaxes. ID consult noted. I will follow carefully. Ordered Oxygen, doing well on room air at this time. Gregg Curtis M.D. Gregg Curtis MD Oct 31, 2019 10:56
[2019-10-31 11:07] LABS: APTT 1:1 NORMAL PLASMA 30.3 sec (22.9-30.2); APTT 1:1NP MIX 60M INCUBATION 32.8 sec (22.9-30.2); APTT 1:1NP MIX CONTROL 33.1 sec (22.9-30.2)
[2019-10-31] MEDS: Desmopressin (DDAVP) Inj IV SCH ×2 (12:08→21:17)
[2019-10-31] MEDS ORDERED: Tubing IV Secondary IV ONE (13:30)
[2019-10-31] MEDS ORDERED: NS 275ml ONE (13:30)
--- NOTE | 2019-10-31 15:14 | Surgery Progress Note ---
Surgery Progress Note Subjective Symptoms: improved, pain absent, tolerating diet, passing flatus Objective Last 24 Hour Vital Signs Date Time Temp Pulse Resp B/P (MAP) Pulse Ox O2 Delivery O2 Flow Rate FiO2 10/31/19 14:00 76 17 102/76 (85) 91 10/31/19 13:30 69 11 96/44 (61) 97 10/31/19 13:00 72 11 96/53 (67) 98 10/31/19 12:30 76 13 97/51 (66) 97 10/31/19 12:00 Room Air 10/31/19 12:00 98.4 73 13 103/72 (82) 97 10/31/19 11:30 73 12 92/56 (68) 96 10/31/19 11:00 73 12 98/49 (65) 94 10/31/19 10:30 75 13 92/57 (69) 97 10/31/19 10:00 74 13 99/58 (72) 97 10/31/19 09:30 76 13 91/60 (70) 96 10/31/19 09:00 78 14 97/63 (74) 96 10/31/19 08:30 83 13 94/61 (72) 95 10/31/19 08:00 Room Air 10/31/19 08:00 98.5 14 106/59 (75) 98 10/31/19 07:30 80 14 103/61 (75) 97 10/31/19 07:00 85 16 96/62 (73) 94 10/31/19 06:00 87 15 109/57 (74) 96 10/31/19 05:42 117/63 10/31/19 05:30 90 13 117/63 (81) 97 10/31/19 05:00 93 17 115/59 (77) 96 10/31/19 04:30 93 17 108/66 (80) 100 10/31/19 04:00 87 10/31/19 04:00 98.6 86 16 125/61 (82) 10/31/19 04:00 Room Air 10/31/19 03:30 89 16 117/68 (84) 98 10/31/19 03:00 92 12 129/63 (85) 97 10/31/19 02:30 85 12 123/62 (82) 99 10/31/19 02:00 82 14 118/61 (80) 99 8/18/20 02:00 82 14 118/61 (80) 99 10/31/19 01:45 76 21 117/60 (79) 100 10/31/19 01:30 74 23 112/58 (76) 100 10/31/19 01:30 74 23 112/58 (76) 100 10/31/19 01:15 73 20 109/63 (78) 100 10/31/19 01:00 77 22 96/56 (69) 96 10/31/19 01:00 77 22 96/56 (69) 96 10/31/19 00:45 74 20 108/62 (77) 93 10/31/19 00:30 73 19 113/64 (80) 97 10/31/19 00:30 73 19 113/64 (80) 97 10/31/19 00:15 73 17 95/59 (71) 98 10/31/19 00:00 73 17 112/68 (83) 100 10/31/19 00:00 74 10/31/19 00:00 Room Air 10/31/19 00:00 98.5 73 17 112/68 (83) 100 10/30/19 23:30 20 120/65 (83) 98 10/30/19 23:00 80 20 124/71 (88) 98 10/30/19 22:30 71 16 117/79 (92) 100 10/30/19 22:00 68 16 130/64 (86) 97 10/30/19 21:30 69 17 113/70 (84) 96 10/30/19 21:00 70 13 111/65 (80) 98 10/30/19 20:30 70 16 107/85 (92) 10/30/19 20:00 Room Air 10/30/19 20:00 66 14 108/58 (75) 89 10/30/19 20:00 70 10/30/19 19:30 98.5 63 13 105/69 (81) 10/30/19 19:00 63 11 93/69 (77) 91 10/30/19 18:45 69 21 117/57 (77) 77 10/30/19 18:30 66 14 102/72 (82) 96 10/30/19 18:15 63 15 119/64 (82) 93 10/30/19 18:00 71 16 129/66 (87) 97 8/17/20 17:45 71 19 111/67 (82) 98 10/30/19 17:30 65 14 118/67 (84) 99 10/30/19 17:15 57 14 120/63 (82) 97 10/30/19 17:00 56 13 109/62 (78) 97 10/30/19 16:40 83/49 10/30/19 16:40 62 13 83/49 (60) 97 10/30/19 16:30 61 13 84/48 (60) 98 10/30/19 16:00 98.9 62 13 93/51 (65) 96 10/30/19 16:00 Room Air 10/30/19 15:30 64 13 102/54 (70) 97 10/30/19 15:24 63 I&O Intake and Output 10/30/19 10/31/19 19:00 07:00 Intake Total 2486.300 ml 1682.5 ml Output Total 1440 ml 2290 ml Balance 1046.300 ml -607.5 ml Intake Oral 300 ml IV Total 2186.300 ml 1682.5 ml Output Urine Total 1190 ml 2290 ml Stool Total 250 ml # Bowel Movements 1 1 Dressing: dry Wound: clean Cardiovascular: RSR Respiratory: clear Abdomen: soft, non-tender, present bowel sounds Extremities: no edema, no tenderness, no cyanosis Laboratory Tests Test 10/31/19 06:52 White Blood Count 11.9 K/UL (4.8-10.8) H Red Blood Count 3.56 M/UL (4.70-6.10) L Hemoglobin 9.5 G/DL (14.2-18.0) L Hematocrit 29.7 % (42.0-52.0) L Mean Corpuscular Volume 83 FL (80-99) Mean Corpuscular Hemoglobin 26.7 PG (27.0-31.0) L Mean Corpuscular Hemoglobin Concent 32.1 G/DL (32.0-36.0) Red Cell Distribution Width 17.5 % (11.6-14.8) H Platelet Count 430 K/UL (150-450) Mean Platelet Volume 4.7 FL (6.5-10.1) L Neutrophils (%) (Auto) 73.5 % (45.0-75.0) Lymphocytes (%) (Auto) 14.3 % (20.0-45.0) L Monocytes (%) (Auto) 8.5 % (1.0-10.0) Eosinophils (%) (Auto) 2.7 % (0.0-3.0) Basophils (%) (Auto) 1.0 % (0.0-2.0) Sodium Level 136 MMOL/L (136-145) Potassium Level 4.0 MMOL/L (3.5-5.1) Chloride Level 100 MMOL/L (98-107) Carbon Dioxide Level 25 MMOL/L (21-32) Anion Gap 11 mmol/L (5-15) Blood Urea Nitrogen 13 mg/dL (7-18) Creatinine 0.6 MG/DL (0.55-1.30) Estimat Glomerular Filtration Rate > 60 mL/min (>60) Glucose Level 122 MG/DL (74-106) H Calcium Level 8.4 MG/DL (8.5-10.1) L Phosphorus Level 3.0 MG/DL (2.5-4.9) Magnesium Level 1.7 MG/DL (1.8-2.4) L Vancomycin Level Trough 16.8 ug/mL (5.0-12.0) H Plan Problems: (1) Abdominal distension Assessment & Plan: abd distention soft non tender ostomy viable and reduced KUB ordered pending results improved comfortable no complaints okay for diet s tolerated There is an inferior vena cava filter in place. Bowel gas pattern is unremarkable. Considerable stool is seen in the transverse and distal colon. There is extensive pelvic deformity, with loss of the left femoral head, chronic dislocation of the left femur, and extensive pelvic deformity, particularly on the left. Adi project over the upper pelvis Impression: Possible constipation. 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 [place] Shaped, Full Thickness Sacral Pressure Injury which extends into L ischium. (L)15.4cm x (W)18cm x (D)2.4cm, Undermining clockwise 10-2 by 7.7cm @ 11o'clock. Base of wound is moist,pink with scattered slough at base of wound. Bone is palpable at the Base. No odor or exudate noted. Scattered partial thickness wounds and Serous filled blisters noted to R trochanteric /R Hip areas. Historical scar noted to L groin, L Hip L Buttocks. Bony protrusion noted at L Hip. Full thickness Pressure Injury R Ischium(L)5.4cm x(W)6.9cm x (D)1.8cm, Undermining clockwise 1-4 by 2.7cm @2o'clock, Tunneling@7o'clock 2.9cm. Base of wound is moist pink with scattered slough. Scattered slough noted along borders. NO odor or exudate noted. Stable dry eschar noted to medial R knee 0.7cm x (W)0.4cm. Periwound is erythematous and indurated. No elevation in skin temp noted. L heel has shaved appearance secondary to Hx of Pressure Injuries. Base of heel is pale pink. Bone is palpable. Small area of slough noted within compromised area(L)0.6cm x (W)0.8cm. L Heel Also has shaved appearance with hypertrophic scarring. Base of compromised area is pale pink, Bone is palpable, with scattered loose, dry and scaly skin. Tx.Plan: Cleanse Sacral Wound and R Ischial wounds with Dakin's 0.125% gian. Loosely pack wounds with Hydrogel impregnated Kerlix. Apply Moisture Barrier Paste periwound. Cover with ABD Pads secure with Tegaderm drsg.Daily and prn. Apply Triad Paste to R Hip/R trochanteric areas.Cover with Optifoam drsg. Change every 7 days and prn. Apply Betadine to Medial R Knee. Cover with Optifoam drsg. Change every 7 days and prn. Apply Betadine to R and L Heels. Cover each Heel with Optifoam drsgs. Change every 7 days and prn. Cover Bony Prominences as needed with Optifoam drsgs. Reposition at least every [address] Pillow between knees. Off-load heels with pillow. APM/SUMI Mattress overlay (15) SEAN (acute kidney injury) (16) Ileostomy prolapse Assessment & Plan: currently reduced but abd distended pending films films reviewed improved okay for diet d/c planning Cornelius Salgado Oct 31, 2019 15:14
--- NOTE | 2019-10-31 15:31 | Infectious Diseases Prog Note ---
Assessment/Plan Assessment/Plan ASSESSMENT AND PLAN: 1. sepsis, shock, proteus uti, esbl e.coli uti, possible aspiration pna/hcap vs cap, sacral wound - ? infected, mrsa and vre colonization - meropenem and vancomycin, day # 8 antibiotics - monitor labs and chest x-ray - clinically improved, chest x-ray improved - off pressors now 2. ICU care. 3. Sacral wound -wound mostly clean, management per surgery 4. Ostomy malfunction - per surgery 5. Hypertension. 6. Paraplegia. 7. Anemia. 8. History of decubitus ulcer, rule out infection. Infectious diseases is following. The patient on antibiotics. 9. Hypertension treatment per primary care team. 10. Continue treatment per primary consultants. 11. No known drug allergies. 12. Social history is negative. 13. Family history is noncontributory. 14. MAR was noted. 15. Case discussed with RN. Subjective Constitutional: Reports: fatigue; Denies: fever HEENT: Denies: congestion Respiratory: Denies: shortness of breath Cardiovascular: Denies: chest pain Gastrointestinal/Abdominal: Denies: nausea, vomiting, diarrhea Genitourinary: Reports: other - + donohue Neurologic: Denies: headache Psychiatric: Denies: depression Skin: Denies: rash Hematologic: Denies: bleeding Musculoskeletal: Denies: pain Allergies: Coded Allergies: No Known Allergies (Unverified , 08/15/19) Objective Last 24 Hour Vital Signs Date Time Temp Pulse Resp B/P (MAP) Pulse Ox O2 Delivery O2 Flow Rate FiO2 10/31/19 14:00 76 17 102/76 (85) 91 10/31/19 13:30 69 11 96/44 (61) 97 10/31/19 13:00 72 11 96/53 (67) 98 10/31/19 12:30 76 13 97/51 (66) 97 10/31/19 12:00 Room Air 10/31/19 12:00 98.4 73 13 103/72 (82) 97 10/31/19 11:30 73 12 92/56 (68) 96 10/31/19 11:00 73 12 98/49 (65) 94 10/31/19 10:30 75 13 92/57 (69) 97 10/31/19 10:00 74 13 99/58 (72) 97 8/18/20 09:30 76 13 91/60 (70) 96 10/31/19 09:00 78 14 97/63 (74) 96 10/31/19 08:30 83 13 94/61 (72) 95 10/31/19 08:00 Room Air 10/31/19 08:00 98.5 14 106/59 (75) 98 10/31/19 07:30 80 14 103/61 (75) 97 10/31/19 07:00 85 16 96/62 (73) 94 10/31/19 06:00 87 15 109/57 (74) 96 10/31/19 05:42 117/63 10/31/19 05:30 90 13 117/63 (81) 97 10/31/19 05:00 93 17 115/59 (77) 96 10/31/19 04:30 93 17 108/66 (80) 100 10/31/19 04:00 87 10/31/19 04:00 98.6 86 16 125/61 (82) 10/31/19 04:00 Room Air 10/31/19 03:30 89 16 117/68 (84) 98 10/31/19 03:00 92 12 129/63 (85) 97 10/31/19 02:30 85 12 123/62 (82) 99 10/31/19 02:00 82 14 118/61 (80) 99 10/31/19 02:00 82 14 118/61 (80) 99 10/31/19 01:45 76 21 117/60 (79) 100 10/31/19 01:30 74 23 112/58 (76) 100 10/31/19 01:30 74 23 112/58 (76) 100 10/31/19 01:15 73 20 109/63 (78) 100 10/31/19 01:00 77 22 96/56 (69) 96 10/31/19 01:00 77 22 96/56 (69) 96 10/31/19 00:45 74 20 108/62 (77) 93 10/31/19 00:30 73 19 113/64 (80) 97 10/31/19 00:30 73 19 113/64 (80) 97 10/31/19 00:15 73 17 95/59 (71) 98 10/31/19 00:00 73 17 112/68 (83) 100 10/31/19 00:00 74 8/18/20 00:00 Room Air 10/31/19 00:00 98.5 73 17 112/68 (83) 100 10/30/19 23:30 20 120/65 (83) 98 10/30/19 23:00 80 20 124/71 (88) 98 10/30/19 22:30 71 16 117/79 (92) 100 10/30/19 22:00 68 16 130/64 (86) 97 10/30/19 21:30 69 17 113/70 (84) 96 10/30/19 21:00 70 13 111/65 (80) 98 10/30/19 20:30 70 16 107/85 (92) 10/30/19 20:00 Room Air 10/30/19 20:00 66 14 108/58 (75) 89 10/30/19 20:00 70 10/30/19 19:30 98.5 63 13 105/69 (81) 10/30/19 19:00 63 11 93/69 (77) 91 10/30/19 18:45 69 21 117/57 (77) 77 10/30/19 18:30 66 14 102/72 (82) 96 10/30/19 18:15 63 15 119/64 (82) 93 10/30/19 18:00 71 16 129/66 (87) 97 10/30/19 17:45 71 19 111/67 (82) 98 10/30/19 17:30 65 14 118/67 (84) 99 10/30/19 17:15 57 14 120/63 (82) 97 10/30/19 17:00 56 13 109/62 (78) 97 10/30/19 16:40 83/49 10/30/19 16:40 62 13 83/49 (60) 97 10/30/19 16:30 61 13 84/48 (60) 98 10/30/19 16:00 98.9 62 13 93/51 (65) 96 10/30/19 16:00 Room Air 10/30/19 15:30 64 13 102/54 (70) 97 Height (Feet): 5 Height (Inches): 7.00 Weight (Pounds): 128 General Appearance: no acute distress HEENT: anicteric, mucous membranes moist Respiratory/Chest: lungs clear, normal breath sounds, no respiratory distress, no accessory muscle use Cardiovascular: normal rate, regular rhythm, no gallop/murmur, no JVD Abdomen: normal bowel sounds, soft, non tender, no organomegaly, non distended Genitourinary: other - + donohue Extremities: no cyanosis Skin: no rash Neurologic/Psychiatric: alert, oriented x 3, responsive Lymphatic: no neck adenopathy Musculoskeletal: no effusion Chest x-ray - 10/25/19 - Procedure: XRAY Chest 1v Indication: Shortness of breath Technique: One view of the chest Comparison: 10/23/2019 Findings: There are bilateral basilar infiltrates, which appear new or increased since prior study. There is some atelectasis at the left lung base as well. Right jugular central venous catheter remains. The heart size is normal. Impression: New/increased bilateral basilar infiltrates, since prior study 2019 Chest x-ray - 10/27/19 - Procedure: XRAY Chest 1v Indication: Shortness of breath Technique: One view of the chest Comparison: 10/25/2019 Findings: There is atelectasis possibly some focal consolidation at the right lung base. Atelectatic changes previously demonstrated at the left lung base have largely cleared. Right jugular central venous catheter remains. The heart size is normal. Impression: Improving left basilar atelectasis. 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 No new consolidation is seen. Pleural space: Unremarkable. The costophrenic angles are sharp. No visible pneumothorax. Heart: Unremarkable. No cardiomegaly. Mediastinum: Unremarkable. Bones/joints: Unremarkable. Vasculature: Mild atherosclerotic calcifications are noted within the aortic arch. Tubes, lines and devices: Stable positioning of a right IJ central venous catheter with the tip in the SVC. Telemetry leads overlie the thorax. IMPRESSION: Persistent subsegmental atelectasis in bilateral lower lungs, not significantly changed compared to the prior exam. Microbiology Date/Time Source Procedure Growth Status 10/23/19 15:30 Blood Blood Culture - Final NO GROWTH AFTER 5 DAYS Complete 10/23/19 18:55 Nasal Nares MRSA Culture - Final Staphylococcus Aureus - Mrsa Complete 10/23/19 15:13 Urine,Clean Catch Urine Culture - Final Proteus Mirabilis Escherichia Coli - Esbl Complete 10/23/19 18:55 Rectum - Final NO CARBAPENEM-RESISTANT ENTEROBACTERI... Complete Laboratory Tests Test 10/31/19 06:52 White Blood Count 11.9 K/UL (4.8-10.8) H Red Blood Count 3.56 M/UL (4.70-6.10) L Hemoglobin 9.5 G/DL (14.2-18.0) L Hematocrit 29.7 % (42.0-52.0) L Mean Corpuscular Volume 83 FL (80-99) Mean Corpuscular Hemoglobin 26.7 PG (27.0-31.0) L Mean Corpuscular Hemoglobin Concent 32.1 G/DL (32.0-36.0) Red Cell Distribution Width 17.5 % (11.6-14.8) H Platelet Count 430 K/UL (150-450) Mean Platelet Volume 4.7 FL (6.5-10.1) L Neutrophils (%) (Auto) 73.5 % (45.0-75.0) Lymphocytes (%) (Auto) 14.3 % (20.0-45.0) L Monocytes (%) (Auto) 8.5 % (1.0-10.0) Eosinophils (%) (Auto) 2.7 % (0.0-3.0) Basophils (%) (Auto) 1.0 % (0.0-2.0) Sodium Level 136 MMOL/L (136-145) Potassium Level 4.0 MMOL/L (3.5-5.1) Chloride Level 100 MMOL/L (98-107) Carbon Dioxide Level 25 MMOL/L (21-32) Anion Gap 11 mmol/L (5-15) Blood Urea Nitrogen 13 mg/dL (7-18) Creatinine 0.6 MG/DL (0.55-1.30) Estimat Glomerular Filtration Rate > 60 mL/min (>60) Glucose Level 122 MG/DL (74-106) H Calcium Level 8.4 MG/DL (8.5-10.1) L Phosphorus Level 3.0 MG/DL (2.5-4.9) Magnesium Level 1.7 MG/DL (1.8-2.4) L Vancomycin Level Trough 16.8 ug/mL (5.0-12.0) H Current Medications Medications (Trade) Dose Ordered Sig/Mya Route PRN Reason Start Time Stop Time Status Last Admin Dose Admin Acetaminophen (Tylenol) 650 mg Q4H PRN ORAL Mild Pain (Pain Scale 1-3) 10/23/19 17:30 11/22/19 17:29 10/30/19 18:03 Acetaminophen/ Hydrocodone Bitart ([place] 5/325) 1 tab Q4H PRN ORAL Moderate Pain (Pain Scale 4-6) 10/30/19 21:00 11/06/19 20:59 Acetaminophen/ Hydrocodone Bitart ([place] 5/325) 2 tab Q4H PRN ORAL Severe Pain (Pain Scale 7-10) 10/30/19 21:00 11/06/19 20:59 10/31/19 12:59 Ascorbic Acid (Vitamin C) 500 mg DAILY ORAL 10/24/19 09:00 11/23/19 08:59 10/31/19 08:07 Baclofen (Lioresal) 10 mg THREE TIMES A DAY ORAL 10/23/19 18:00 11/22/19 17:59 10/31/19 12:58 Chlorhexidine Gluconate (Simran-Hex 2%) 1 applic DAILY@1999 TOPIC 10/24/19 20:00 01/22/20 19:59 10/30/19 20:24 Clonazepam (KlonoPIN) 0.5 mg Q8H PRN ORAL For Anxiety 10/31/19 09:30 11/07/19 09:29 Desmopressin Acetate (Ddavp) 2 mcg EVERY 12 HOURS IV 10/31/19 12:00 01/29/20 11:59 10/31/19 12:08 Dextrose (Dextrose 50%) 25 ml Q30M PRN IV Hypoglycemia 10/23/19 17:30 01/21/20 17:29 Dextrose (Dextrose 50%) 50 ml Q30M PRN IV Hypoglycemia 10/23/19 17:30 01/21/20 17:29 Diphenhydramine HCl (Benadryl) 25 mg Q6H PRN ORAL Itching/Pruritis 10/23/19 17:30 11/22/19 17:29 Docusate Sodium (Colace) 100 mg EVERY 12 HOURS ORAL 10/23/19 21:00 11/22/19 20:59 10/31/19 08:06 Dopamine HCl/ Dextrose 250 ml @ 0 mls/hr Q24H IV 10/24/19 06:15 01/22/20 06:14 10/27/19 04:35 Famotidine (Pepcid) 20 mg DAILY ORAL 10/30/19 09:30 01/28/20 09:29 10/31/19 08:06 Ferrous Sulfate (Feosol) 325 mg DAILY ORAL 10/24/19 09:00 01/22/20 08:59 10/31/19 08:06 Gabapentin (Neurontin) 400 mg Q8HR ORAL 10/23/19 22:00 11/22/19 21:59 10/31/19 13:00 Heparin Sodium (Porcine) (Heparin 5000 units/ml) 5,000 units EVERY 12 HOURS SUBQ 10/24/19 09:00 12/08/19 08:59 10/31/19 08:09 Meropenem 1 gm/ Sodium Chloride 100 ml @ 200 mls/hr Q8H IVPB 10/29/19 18:00 11/03/19 17:59 10/31/19 10:35 Midodrine (Pro-Amatine) 10 mg EVERY 8 HOURS ORAL 10/28/19 14:00 01/21/20 17:59 10/31/19 13:00 Norepinephrine Bitartrate 250 ml @ 0 mls/hr Q24H IV 10/23/19 21:00 01/21/20 20:59 10/30/19 16:40 Ondansetron HCl (Zofran) 4 mg Q6H PRN IVP Nausea & Vomiting 10/23/19 17:30 11/22/19 17:29 Sodium Hypochlorite (Dakin's Quarter Strength) 1 applic DAILY TOPIC 10/25/19 09:00 11/24/19 08:59 10/31/19 08:58 Sodium Chloride 1,000 ml @ 150 mls/hr Q6H40M IV 10/26/19 11:27 11/25/19 11:26 10/31/19 11:29 Vancomycin HCl (Vanco pharmacy to dose) 1 ea DAILY PRN MISC Per rx protocol 10/29/19 16:15 11/28/19 16:14 Vancomycin HCl 1 gm/Dextrose 275 ml @ 183.708 mls/hr Q12H IVPB 10/29/19 20:00 11/03/19 19:59 10/31/19 08:06 Zinc Sulfate (Zinc Sulfate) 220 mg DAILY ORAL 10/24/19 09:00 01/22/20 08:59 10/31/19 08:07 Sharif Painting MD Oct 31, 2019 15:30
--- NOTE | 2019-10-31 17:53 | Cardiac Electrophysiology PN ---
Assessment/Plan Assessment/Plan 1. S/P Septic shock. Off Levophed. On Midodrine and IV antibiotic and iv fluid NS at 150 cc/hr 2. Bradycardia. Resolved. 3. Paraplegia. 4. Urinary tract infection, followed by Dr. Painting on broad-spectrum IV antibiotic. 5. Decubitus ulcers with sacral decubitus. 6. S/P Ileostomy/ 7. Polyuria, DI. On NS and DDAVP. DW RN Subjective Subjective Alert in NAD in ICU. Off Levo since yesterday. RN at bedside. S/P 2 PRBC for Hb 6.8 yesterday Objective Last 24 Hour Vital Signs Date Time Temp Pulse Resp B/P (MAP) Pulse Ox O2 Delivery O2 Flow Rate FiO2 10/31/19 17:00 82 16 90/50 (63) 96 10/31/19 16:00 Room Air 10/31/19 16:00 71 10/31/19 16:00 75 14 90/58 (69) 96 10/31/19 15:00 65 14 87/46 (60) 95 10/31/19 14:00 76 17 102/76 (85) 91 10/31/19 13:30 69 11 96/44 (61) 97 10/31/19 13:00 72 11 96/53 (67) 98 10/31/19 12:30 76 13 97/51 (66) 97 10/31/19 12:00 Room Air 10/31/19 12:00 98.4 73 13 103/72 (82) 97 10/31/19 12:00 68 10/31/19 11:30 73 12 92/56 (68) 96 10/31/19 11:00 73 12 98/49 (65) 94 10/31/19 10:30 75 13 92/57 (69) 97 10/31/19 10:00 74 13 99/58 (72) 97 10/31/19 09:30 76 13 91/60 (70) 96 10/31/19 09:00 78 14 97/63 (74) 96 10/31/19 08:30 83 13 94/61 (72) 95 10/31/19 08:00 Room Air 10/31/19 08:00 83 10/31/19 08:00 98.5 14 106/59 (75) 98 8/18/20 07:30 80 14 103/61 (75) 97 10/31/19 07:00 85 16 96/62 (73) 94 10/31/19 06:00 87 15 109/57 (74) 96 10/31/19 05:42 117/63 10/31/19 05:30 90 13 117/63 (81) 97 10/31/19 05:00 93 17 115/59 (77) 96 10/31/19 04:30 93 17 108/66 (80) 100 10/31/19 04:00 87 10/31/19 04:00 98.6 86 16 125/61 (82) 10/31/19 04:00 Room Air 10/31/19 03:30 89 16 117/68 (84) 98 10/31/19 03:00 92 12 129/63 (85) 97 10/31/19 02:30 85 12 123/62 (82) 99 10/31/19 02:00 82 14 118/61 (80) 99 10/31/19 02:00 82 14 118/61 (80) 99 10/31/19 01:45 76 21 117/60 (79) 100 10/31/19 01:30 74 23 112/58 (76) 100 10/31/19 01:30 74 23 112/58 (76) 100 10/31/19 01:15 73 20 109/63 (78) 100 10/31/19 01:00 77 22 96/56 (69) 96 10/31/19 01:00 77 22 96/56 (69) 96 10/31/19 00:45 74 20 108/62 (77) 93 10/31/19 00:30 73 19 113/64 (80) 97 10/31/19 00:30 73 19 113/64 (80) 97 10/31/19 00:15 73 17 95/59 (71) 98 10/31/19 00:00 73 17 112/68 (83) 100 10/31/19 00:00 74 10/31/19 00:00 Room Air 10/31/19 00:00 98.5 73 17 112/68 (83) 100 10/30/19 23:30 20 120/65 (83) 98 10/30/19 23:00 80 20 124/71 (88) 98 10/30/19 22:30 71 16 117/79 (92) 100 10/30/19 22:00 68 16 130/64 (86) 97 10/30/19 21:30 69 17 113/70 (84) 96 10/30/19 21:00 70 13 111/65 (80) 98 10/30/19 20:30 70 16 107/85 (92) 10/30/19 20:00 Room Air 10/30/19 20:00 66 14 108/58 (75) 89 10/30/19 20:00 70 10/30/19 19:30 98.5 63 13 105/69 (81) 10/30/19 19:00 63 11 93/69 (77) 91 10/30/19 18:45 69 21 117/57 (77) 77 10/30/19 18:30 66 14 102/72 (82) 96 10/30/19 18:15 63 15 119/64 (82) 93 10/30/19 18:00 71 16 129/66 (87) 97 Intake and Output 10/30/19 10/31/19 19:00 07:00 Intake Total 2486.300 ml 1682.5 ml Output Total 1440 ml 2290 ml Balance 1046.300 ml -607.5 ml Intake Oral 300 ml IV Total 2186.300 ml 1682.5 ml Output Urine Total 1190 ml 2290 ml Stool Total 250 ml # Bowel Movements 1 1 Laboratory Tests Test 10/31/19 06:52 White Blood Count 11.9 K/UL (4.8-10.8) H Red Blood Count 3.56 M/UL (4.70-6.10) L Hemoglobin 9.5 G/DL (14.2-18.0) L Hematocrit 29.7 % (42.0-52.0) L Mean Corpuscular Volume 83 FL (80-99) Mean Corpuscular Hemoglobin 26.7 PG (27.0-31.0) L Mean Corpuscular Hemoglobin Concent 32.1 G/DL (32.0-36.0) Red Cell Distribution Width 17.5 % (11.6-14.8) H Platelet Count 430 K/UL (150-450) Mean Platelet Volume 4.7 FL (6.5-10.1) L Neutrophils (%) (Auto) 73.5 % (45.0-75.0) Lymphocytes (%) (Auto) 14.3 % (20.0-45.0) L Monocytes (%) (Auto) 8.5 % (1.0-10.0) Eosinophils (%) (Auto) 2.7 % (0.0-3.0) Basophils (%) (Auto) 1.0 % (0.0-2.0) Sodium Level 136 MMOL/L (136-145) Potassium Level 4.0 MMOL/L (3.5-5.1) Chloride Level 100 MMOL/L (98-107) Carbon Dioxide Level 25 MMOL/L (21-32) Anion Gap 11 mmol/L (5-15) Blood Urea Nitrogen 13 mg/dL (7-18) Creatinine 0.6 MG/DL (0.55-1.30) Estimat Glomerular Filtration Rate > 60 mL/min (>60) Glucose Level 122 MG/DL (74-106) H Calcium Level 8.4 MG/DL (8.5-10.1) L Phosphorus Level 3.0 MG/DL (2.5-4.9) Magnesium Level 1.7 MG/DL (1.8-2.4) L Vancomycin Level Trough 16.8 ug/mL (5.0-12.0) H Objective HEAD AND NECK: No JVD. Right IJ central line. LUNGS: Coarse rhonchi. CARDIOVASCULAR: Regular S1 and S2 with no gallop. ABDOMEN: Soft.S/P Ileostomy EXTREMITIES: No pitting edema, however, has pressure ulcers. Carloz Estes MD Oct 31, 2019 17:53
[2019-10-31] MEDS: Dyna-Hex 2% Top Sol 2oz TOPIC SCH (20:26)
[2019-10-31] MEDS: Norepinephrine 4mg/NS Premix 250 ML IV SCH (21:00)
[2019-11-01] VITALS: BP 122/71
[2019-11-01] MEDS ORDERED: HYDROcodone/Acetamin 5/325 tab ORAL PRN ×2 (01:00)
[2019-11-01] MEDS ORDERED: clonazePAM 0.5mg tab ORAL PRN (01:30)
[2019-11-01 04:00] VITALS: BP 98/56
[2019-11-01] MEDS: Midodrine 10mg tab ORAL SCH ×3 (05:15→22:09)
[2019-11-01] MEDS: HYDROcodone/Acetamin 5/325 tab ORAL PRN ×4 (05:18→23:38)
[2019-11-01 05:24] LABS: BASOPHILS % (AUTO) 1.1 % (0.0-2.0); EOSINOPHILS % (AUTO) 4.7 % (0.0-3.0); HEMATOCRIT 26.1 % (42.0-52.0); HEMOGLOBIN 8.3 G/DL (14.2-18.0); LYMPHOCYTES % (AUTO) 38.4 % (20.0-45.0); MEAN CORPUSCULAR VOLUME 85 FL (80-99); MONOCYTES % (AUTO) 6.9 % (1.0-10.0); NEUTROPHILS % (AUTO) 48.9 % (45.0-75.0); PLATELET COUNT 381 K/UL (150-450); RED BLOOD COUNT 3.07 M/UL (4.70-6.10); RED CELL DISTRIBUTION WIDTH 18.1 % (11.6-14.8); WHITE BLOOD COUNT 6.3 K/UL (4.8-10.8)
[2019-11-01 05:56] LABS: ALANINE AMINOTRANSFERASE 19 U/L (12-78); ALBUMIN 1.5 G/DL (3.4-5.0); ALBUMIN/GLOBULIN RATIO 0.3 (1.0-2.7); ALKALINE PHOSPHATASE 153 U/L (46-116); ANION GAP 8 mmol/L (5-15); ASPARTATE AMINO TRANSFERASE 16 U/L (15-37); BILIRUBIN,TOTAL 0.3 MG/DL (0.2-1.0); BLOOD UREA NITROGEN 13 mg/dL (7-18); CALCIUM 8.5 MG/DL (8.5-10.1); CARBON DIOXIDE 25 MMOL/L (21-32); CHLORIDE 104 MMOL/L (98-107); CREATININE 0.6 MG/DL (0.55-1.30); POTASSIUM 3.7 MMOL/L (3.5-5.1); SODIUM 136 MMOL/L (136-145)
[2019-11-01] MEDS ORDERED: Midodrine 10mg tab ORAL SCH (06:00)
--- NOTE | 2019-11-01 07:06 | Hematology/Onc Progress Note ---
Assessment/Plan Assessment/Plan Assessment/recs # Anemia rule out gi bleed, as well as iron deficiency --> hgb 8.2-->7.2-->7.1->6.9-->8.6-->8.3 --> anemia panel ordered--> cw acd --> occult blood pending --> gi eval prn --> transfuse as needed -> transfuse 2 units 10/27 # Coagulopathy with elev ptt/inr --> vitk and ffp as needed --> no bleeding noted at this time # Hypotension likely due to septic shock. Was diuresing heavily at 300 mL an hour. --> Continue Midodrine and dopamine. --> initially on IV antibiotic with vancomycin and meropenem and amikacin-->christel --> in icu, is on pressor --> as per cards # Bradycardia. Continue dopamine. --> cards # Paraplegia. # Urinary tract infection --> followed by Dr. Painting on broad-spectrum IV antibiotic. # Decubitus ulcers with sacral decubitus. # Dvt heparin sq Appreciate consultation and chandrakant RN Subjective Constitutional: Denies: no symptoms, chills, fever, malaise, weakness, other HEENT: Denies: no symptoms, eye pain, blurred vision, tearing, double vision, ear pain, ear discharge, nose pain, nose congestion, throat pain, throat swelling, mouth pain, mouth swelling, other Cardiovascular: Denies: no symptoms, chest pain, edema, irregular heart rate, lightheadedness, palpitations, syncope, other Genitourinary: Denies: no symptoms, burning, discharge, frequency, flank pain, hematuria, incontinence, pain, urgency, other Neurologic/Psychiatric: Denies: no symptoms, anxiety, depressed, emotional problems, headache, numbness, paresthesia, pre-existing deficit, seizure, tingling, tremors, weakness, other Endocrine: Denies: no symptoms, excessive sweating, flushing, intolerance to cold, intolerance to heat, increased hunger, increased thirst, increased urine, unexplained weight gain, unexplained weight loss, other Allergies: Coded Allergies: No Known Allergies (Unverified , 08/15/19) Subjective 10/27 labs again refused this am, yesterday was low, chandrakant rn in icu 10/28 remains in icu, for 2units prbc this am, chandrakant rn, no other events 10/29 s/p prbc, tolerated it well, no bleeding, on 1mcg levo, in icu 10/30 on abx, on levo and overnight no other events, chandrakant nursery rn\ 10/31 wounds improved, labs noted, no bleeding, hgb lower, refusing care/wound care Objective Objective Current Medications Medications (Trade) Dose Ordered Sig/Mya Route PRN Reason Start Time Stop Time Status Last Admin Dose Admin Acetaminophen (Tylenol) 650 mg Q4H PRN ORAL Mild Pain (Pain Scale 1-3) 10/31/19 23:00 11/30/19 22:59 Acetaminophen/ Hydrocodone Bitart ([place] 5/325) 1 tab Q4H PRN ORAL Moderate Pain (Pain Scale 4-6) 10/31/19 23:30 11/07/19 23:29 Acetaminophen/ Hydrocodone Bitart ([place] 5/325) 2 tab Q4H PRN ORAL Severe Pain (Pain Scale 7-10) 10/31/19 23:15 11/07/19 23:14 11/01/19 05:18 Ascorbic Acid (Vitamin C) 500 mg DAILY ORAL 11/01/19 09:00 11/23/19 08:59 Baclofen (Lioresal) 10 mg THREE TIMES A DAY ORAL 11/01/19 09:00 11/22/19 17:59 Chlorhexidine Gluconate (Simran-Hex 2%) 1 applic DAILY@1999 TOPIC 11/01/19 20:00 01/22/20 19:59 Clonazepam (KlonoPIN) 0.5 mg Q8H PRN ORAL For Anxiety 10/31/19 23:00 11/07/19 22:59 10/31/19 23:29 Desmopressin Acetate (Ddavp) 2 mcg EVERY 12 HOURS IV 11/01/19 09:00 01/29/20 11:59 Dextrose (Dextrose 50%) 25 ml Q30M PRN IV Hypoglycemia 10/31/19 23:00 01/21/20 17:29 Dextrose (Dextrose 50%) 50 ml Q30M PRN IV Hypoglycemia 10/31/19 23:00 01/21/20 17:29 Diphenhydramine HCl (Benadryl) 25 mg Q6H PRN ORAL Itching/Pruritis 10/31/19 23:30 11/22/19 17:29 Docusate Sodium (Colace) 100 mg EVERY 12 HOURS ORAL 11/01/19 09:00 11/22/19 20:59 Famotidine (Pepcid) 20 mg DAILY ORAL 11/01/19 09:00 01/28/20 09:29 Ferrous Sulfate (Feosol) 325 mg DAILY ORAL 11/01/19 09:00 01/22/20 08:59 Gabapentin (Neurontin) 400 mg Q8HR ORAL 11/01/19 06:00 11/22/19 21:59 11/01/19 05:15 Heparin Sodium (Porcine) (Heparin 5000 units/ml) 5,000 units EVERY 12 HOURS SUBQ 11/01/19 09:00 12/08/19 08:59 Meropenem 1 gm/ Sodium Chloride 100 ml @ 200 mls/hr Q8H IVPB 11/01/19 02:00 11/03/19 17:59 11/01/19 02:16 Midodrine (Pro-Amatine) 10 mg EVERY 8 HOURS ORAL 11/01/19 06:00 01/21/20 17:59 11/01/19 05:15 Ondansetron HCl (Zofran) 4 mg Q6H PRN IVP Nausea & Vomiting 10/31/19 23:30 11/22/19 17:29 Sodium Hypochlorite (Dakin's Quarter Strength) 1 applic DAILY TOPIC 11/01/19 09:00 11/24/19 08:59 Sodium Chloride 1,000 ml @ 150 mls/hr Q6H40M IV 10/31/19 22:45 11/25/19 11:26 11/01/19 05:14 Vancomycin HCl (Vanco pharmacy to dose) 1 ea DAILY PRN MISC Per rx protocol 11/01/19 09:00 11/28/19 16:14 Vancomycin HCl 1 gm/Dextrose 275 ml @ 183.708 mls/hr Q12H IVPB 11/01/19 08:00 11/03/19 19:59 Zinc Sulfate (Zinc Sulfate) 220 mg DAILY ORAL 11/01/19 09:00 01/22/20 08:59 Last 24 Hour Vital Signs Date Time Temp Pulse Resp B/P (MAP) Pulse Ox O2 Delivery O2 Flow Rate FiO2 11/01/19 04:00 97.5 58 16 98/56 (70) 98 11/01/19 04:00 Room Air 11/01/19 03:59 63 11/01/19 00:44 Room Air 11/01/19 00:00 98.6 76 16 122/71 (88) 97 10/31/19 23:33 81 10/31/19 22:00 73 15 92/59 (70) 98 10/31/19 21:00 74 15 104/60 (75) 97 10/31/19 21:00 104/50 10/31/19 20:00 Room Air 10/31/19 20:00 74 10/31/19 20:00 98.6 76 10 95/59 (71) 97 10/31/19 19:00 80 20 97/56 (70) 97 10/31/19 18:00 87 18 92/54 (67) 96 10/31/19 17:00 82 16 90/50 (63) 96 10/31/19 16:00 Room Air 10/31/19 16:00 71 10/31/19 16:00 75 14 90/58 (69) 96 10/31/19 15:00 65 14 87/46 (60) 95 10/31/19 14:00 76 17 102/76 (85) 91 10/31/19 13:30 69 11 96/44 (61) 97 10/31/19 13:00 72 11 96/53 (67) 98 10/31/19 12:30 76 13 97/51 (66) 97 10/31/19 12:00 Room Air 10/31/19 12:00 98.4 73 13 103/72 (82) 97 10/31/19 12:00 68 10/31/19 11:30 73 12 92/56 (68) 96 10/31/19 11:00 73 12 98/49 (65) 94 10/31/19 10:30 75 13 92/57 (69) 97 10/31/19 10:00 74 13 99/58 (72) 97 10/31/19 09:30 76 13 91/60 (70) 96 10/31/19 09:00 78 14 97/63 (74) 96 10/31/19 08:30 83 13 94/61 (72) 95 10/31/19 08:00 Room Air 10/31/19 08:00 83 10/31/19 08:00 98.5 14 106/59 (75) 98 10/31/19 07:30 80 14 103/61 (75) 97 10/31/19 07:00 85 16 96/62 (73) 94 10/31/19 06:00 87 15 109/57 (74) 96 10/31/19 05:42 117/63 10/31/19 05:30 90 13 117/63 (81) 97 10/31/19 05:00 93 17 115/59 (77) 96 10/31/19 04:30 93 17 108/66 (80) 100 10/31/19 04:00 87 10/31/19 04:00 98.6 86 16 125/61 (82) 10/31/19 04:00 Room Air 10/31/19 03:30 89 16 117/68 (84) 98 10/31/19 03:00 92 12 129/63 (85) 97 10/31/19 02:30 85 12 123/62 (82) 99 10/31/19 02:00 82 14 118/61 (80) 99 10/31/19 02:00 82 14 118/61 (80) 99 10/31/19 01:45 76 21 117/60 (79) 100 10/31/19 01:30 74 23 112/58 (76) 100 10/31/19 01:30 74 23 112/58 (76) 100 10/31/19 01:15 73 20 109/63 (78) 100 10/31/19 01:00 77 22 96/56 (69) 96 10/31/19 01:00 77 22 96/56 (69) 96 10/31/19 00:45 74 20 108/62 (77) 93 10/31/19 00:30 73 19 113/64 (80) 97 10/31/19 00:30 73 19 113/64 (80) 97 10/31/19 00:15 73 17 95/59 (71) 98 10/31/19 00:00 73 17 112/68 (83) 100 10/31/19 00:00 74 10/31/19 00:00 Room Air 10/31/19 00:00 98.5 73 17 112/68 (83) 100 10/30/19 23:30 20 120/65 (83) 98 10/30/19 23:00 80 20 124/71 (88) 98 10/30/19 22:30 71 16 117/79 (92) 100 10/30/19 22:00 68 16 130/64 (86) 97 10/30/19 21:30 69 17 113/70 (84) 96 10/30/19 21:00 70 13 111/65 (80) 98 10/30/19 20:30 70 16 107/85 (92) 10/30/19 20:00 Room Air 10/30/19 20:00 66 14 108/58 (75) 89 10/30/19 20:00 70 10/30/19 19:30 98.5 63 13 105/69 (81) 10/30/19 19:00 63 11 93/69 (77) 91 10/30/19 18:45 69 21 117/57 (77) 77 10/30/19 18:30 66 14 102/72 (82) 96 10/30/19 18:15 63 15 119/64 (82) 93 10/30/19 18:00 71 16 129/66 (87) 97 10/30/19 17:45 71 19 111/67 (82) 98 10/30/19 17:30 65 14 118/67 (84) 99 10/30/19 17:15 57 14 120/63 (82) 97 10/30/19 17:00 56 13 109/62 (78) 97 10/30/19 16:40 83/49 10/30/19 16:40 62 13 83/49 (60) 97 10/30/19 16:30 61 13 84/48 (60) 98 10/30/19 16:00 98.9 62 13 93/51 (65) 96 10/30/19 16:00 Room Air 10/30/19 15:30 64 13 102/54 (70) 97 10/30/19 15:24 63 10/30/19 15:00 62 14 99/62 (74) 97 10/30/19 14:00 62 15 107/66 (80) 99 10/30/19 13:00 63 14 94/54 (67) 97 10/30/19 12:45 64 16 90/54 (66) 97 10/30/19 12:30 64 16 95/53 (67) 98 10/30/19 12:15 65 19 101/62 (75) 97 10/30/19 12:00 Room Air 10/30/19 12:00 98.9 64 13 91/52 (65) 96 10/30/19 11:58 65 10/30/19 11:45 65 15 90/52 (65) 98 10/30/19 11:00 66 14 100/55 (70) 98 10/30/19 10:45 66 14 96/58 (71) 94 10/30/19 10:30 63 17 106/60 (75) 95 10/30/19 10:00 63 15 105/57 (73) 97 10/30/19 09:30 64 15 103/60 (74) 94 10/30/19 09:00 65 14 107/66 (80) 99 10/30/19 08:30 64 16 109/62 (78) 99 10/30/19 08:22 61 10/30/19 08:00 98.0 67 16 105/70 (82) 75 10/30/19 08:00 Room Air 10/30/19 07:30 67 15 113/66 (82) 95 Intake and Output 10/31/19 11/01/19 19:00 07:00 Intake Total 2100 ml 2240 ml Output Total 2475 ml 1840 ml Balance -375 ml 400 ml Intake Oral 250 ml IV Total 2100 ml 1990 ml Output Urine Total 2475 ml 1820 ml Stool Total 20 ml # Bowel Movements 2 Labs Test 10/29/19 07:10 10/29/19 08:35 10/30/19 05:20 10/31/19 06:52 Vancomycin Level Trough 14.0 ug/mL (5.0-12.0) 16.8 ug/mL (5.0-12.0) Activated Partial Thromboplast Time 36 SEC (23-33) Phosphorus Level 3.3 MG/DL (2.5-4.9) 3.0 MG/DL (2.5-4.9) Magnesium Level 1.7 MG/DL (1.8-2.4) 1.7 MG/DL (1.8-2.4) White Blood Count 8.5 K/UL (4.8-10.8) 11.9 K/UL (4.8-10.8) Red Blood Count 3.17 M/UL (4.70-6.10) 3.56 M/UL (4.70-6.10) Hemoglobin 8.6 G/DL (14.2-18.0) 9.5 G/DL (14.2-18.0) Hematocrit 26.5 % (42.0-52.0) 29.7 % (42.0-52.0) Mean Corpuscular Volume 84 FL (80-99) 83 FL (80-99) Mean Corpuscular Hemoglobin 27.0 PG (27.0-31.0) 26.7 PG (27.0-31.0) Mean Corpuscular Hemoglobin Concent 32.3 G/DL (32.0-36.0) 32.1 G/DL (32.0-36.0) Red Cell Distribution Width 17.1 % (11.6-14.8) 17.5 % (11.6-14.8) Platelet Count 334 K/UL (150-450) 430 K/UL (150-450) Mean Platelet Volume 4.7 FL (6.5-10.1) 4.7 FL (6.5-10.1) Neutrophils (%) (Auto) 58.1 % (45.0-75.0) 73.5 % (45.0-75.0) Lymphocytes (%) (Auto) 34.3 % (20.0-45.0) 14.3 % (20.0-45.0) Monocytes (%) (Auto) 4.1 % (1.0-10.0) 8.5 % (1.0-10.0) Eosinophils (%) (Auto) 2.5 % (0.0-3.0) 2.7 % (0.0-3.0) Basophils (%) (Auto) 1.0 % (0.0-2.0) 1.0 % (0.0-2.0) Sodium Level 127 MMOL/L (136-145) 136 MMOL/L (136-145) Potassium Level 3.7 MMOL/L (3.5-5.1) 4.0 MMOL/L (3.5-5.1) Chloride Level 95 MMOL/L (98-107) 100 MMOL/L (98-107) Carbon Dioxide Level 24 MMOL/L (21-32) 25 MMOL/L (21-32) Anion Gap 8 mmol/L (5-15) 11 mmol/L (5-15) Blood Urea Nitrogen 9 mg/dL (7-18) 13 mg/dL (7-18) Creatinine 0.5 MG/DL (0.55-1.30) 0.6 MG/DL (0.55-1.30) Estimat Glomerular Filtration Rate > 60 mL/min (>60) > 60 mL/min (>60) Glucose Level 75 MG/DL (74-106) 122 MG/DL (74-106) Calcium Level 8.0 MG/DL (8.5-10.1) 8.4 MG/DL (8.5-10.1) Test 11/01/19 03:30 White Blood Count 6.3 K/UL (4.8-10.8) Red Blood Count 3.07 M/UL (4.70-6.10) Hemoglobin 8.3 G/DL (14.2-18.0) Hematocrit 26.1 % (42.0-52.0) Mean Corpuscular Volume 85 FL (80-99) Mean Corpuscular Hemoglobin 26.9 PG (27.0-31.0) Mean Corpuscular Hemoglobin Concent 31.7 G/DL (32.0-36.0) Red Cell Distribution Width 18.1 % (11.6-14.8) Platelet Count 381 K/UL (150-450) Mean Platelet Volume 4.5 FL (6.5-10.1) Neutrophils (%) (Auto) 48.9 % (45.0-75.0) Lymphocytes (%) (Auto) 38.4 % (20.0-45.0) Monocytes (%) (Auto) 6.9 % (1.0-10.0) Eosinophils (%) (Auto) 4.7 % (0.0-3.0) Basophils (%) (Auto) 1.1 % (0.0-2.0) Sodium Level 136 MMOL/L (136-145) Potassium Level 3.7 MMOL/L (3.5-5.1) Chloride Level 104 MMOL/L (98-107) Carbon Dioxide Level 25 MMOL/L (21-32) Anion Gap 8 mmol/L (5-15) Blood Urea Nitrogen 13 mg/dL (7-18) Creatinine 0.6 MG/DL (0.55-1.30) Estimat Glomerular Filtration Rate > 60 mL/min (>60) Glucose Level 85 MG/DL (74-106) Calcium Level 8.5 MG/DL (8.5-10.1) Total Bilirubin 0.3 MG/DL (0.2-1.0) Aspartate Amino Transf (AST/SGOT) 16 U/L (15-37) Alanine Aminotransferase (ALT/SGPT) 19 U/L (12-78) Alkaline Phosphatase 153 U/L (46-116) Total Protein 6.2 G/DL (6.4-8.2) Albumin 1.5 G/DL (3.4-5.0) Globulin 4.7 g/dL Albumin/Globulin Ratio 0.3 (1.0-2.7) Height (Feet): 5 Height (Inches): 7.00 Weight (Pounds): 113 Objective Physical Exam General Appearance: lethargic Lines, tubes and drains: peripheral, central line HEENT: normocephalic Neck: non-tender, normal alignment Respiratory/Chest: lungs clear Cardiovascular/Chest: normal peripheral pulses, normal rate, regular rhythm Abdomen: normal bowel sounds, non tender Martínez Capps MD Nov 01, 2019 07:06
[2019-11-01 08:00] VITALS: BP 120/69
[2019-11-01] MEDS ORDERED: Vancomycin 1 GM in D5W 275 ML IVPB SCH (08:00)
[2019-11-01] MEDS: Vancomycin 1 GM in D5W 275 ML IVPB SCH ×2 (08:36→19:35)
[2019-11-01] MEDS: Dakin's 0.125% Soln (Quarter Strength) 16oz TOPIC SCH (08:37)
[2019-11-01] MEDS: Ascorbic Acid 500mg tab ORAL SCH (08:37)
[2019-11-01] MEDS: Docusate 100mg cap ORAL SCH ×2 (08:37→21:00)
[2019-11-01] MEDS: Zinc Sulfate 220mg ORAL SCH (08:37)
[2019-11-01] MEDS: Heparin 5000 units/ml inj SUBQ SCH ×2 (08:39→20:29)
[2019-11-01] MEDS: Desmopressin (DDAVP) Inj IV SCH ×2 (08:40→20:28)
[2019-11-01] MEDS ORDERED: Dakin's 0.125% Soln (Quarter Strength) 16oz TOPIC SCH (09:00)
[2019-11-01] MEDS ORDERED: Desmopressin (DDAVP) Inj IV SCH (09:00)
[2019-11-01] MEDS ORDERED: Zinc Sulfate 220mg ORAL SCH (09:00)
[2019-11-01] MEDS ORDERED: Heparin 5000 units/ml inj SUBQ SCH (09:00)
[2019-11-01] MEDS ORDERED: Ascorbic Acid 500mg tab ORAL SCH (09:00)
[2019-11-01] MEDS ORDERED: Docusate 100mg cap ORAL SCH (09:00)
--- NOTE | 2019-11-01 10:25 | Pulmonology Progress Note ---
Subjective ROS Limited/Unobtainable: No Interval Events: Looking better Constitutional: Reports: fatigue HEENT: Repors: no symptoms Respiratory: Reports: no symptoms Cardiovascular: Reports: no symptoms Gastrointestinal/Abdominal: Denies: nausea, vomiting, diarrhea Genitourinary: Reports: no symptoms Psychiatric: Denies: depression Skin: Denies: rash Musculoskeletal: Denies: pain Allergies: Coded Allergies: No Known Allergies (Unverified , 08/15/19) All Systems: reviewed and negative except above Objective Last 24 Hour Vital Signs Date Time Temp Pulse Resp B/P (MAP) Pulse Ox O2 Delivery O2 Flow Rate FiO2 11/01/19 08:00 97.0 62 22 120/69 (86) 96 11/01/19 07:56 65 11/01/19 04:00 97.5 58 16 98/56 (70) 98 11/01/19 04:00 Room Air 11/01/19 03:59 63 11/01/19 00:44 Room Air 11/01/19 00:00 98.6 76 16 122/71 (88) 97 10/31/19 23:33 81 10/31/19 22:00 73 15 92/59 (70) 98 10/31/19 21:00 74 15 104/60 (75) 97 10/31/19 21:00 104/50 10/31/19 20:00 Room Air 10/31/19 20:00 74 10/31/19 20:00 98.6 76 10 95/59 (71) 97 10/31/19 19:00 80 20 97/56 (70) 97 10/31/19 18:00 87 18 92/54 (67) 96 10/31/19 17:00 82 16 90/50 (63) 96 10/31/19 16:00 Room Air 10/31/19 16:00 71 10/31/19 16:00 75 14 90/58 (69) 96 10/31/19 15:00 65 14 87/46 (60) 95 10/31/19 14:00 76 17 102/76 (85) 91 10/31/19 13:30 69 11 96/44 (61) 97 10/31/19 13:00 72 11 96/53 (67) 98 10/31/19 12:30 76 13 97/51 (66) 97 8/18/20 12:00 Room Air 10/31/19 12:00 98.4 73 13 103/72 (82) 97 10/31/19 12:00 68 10/31/19 11:30 73 12 92/56 (68) 96 10/31/19 11:00 73 12 98/49 (65) 94 10/31/19 10:30 75 13 92/57 (69) 97 Intake and Output 10/31/19 11/01/19 19:00 07:00 Intake Total 2100 ml 2390 ml Output Total 2475 ml 1840 ml Balance -375 ml 550 ml Intake Oral 250 ml IV Total 2100 ml 2140 ml Output Urine Total 2475 ml 1820 ml Stool Total 20 ml # Bowel Movements 2 General Appearance: no acute distress HEENT: normocephalic Respiratory: chest wall non-tender, lungs clear Cardiovascular: normal peripheral pulses, regular rhythm Abdomen: normal bowel sounds Extremities: no cyanosis Laboratory Tests 11/01/19 03:30: White Blood Count 6.3, Red Blood Count 3.07L, Hemoglobin 8.3L, Hematocrit 26.1L , Mean Corpuscular Volume 85, Mean Corpuscular Hemoglobin 26.9L, Mean Corpuscular Hemoglobin Concent 31.7L, Red Cell Distribution Width 18.1H, Platelet Count 381, Mean Platelet Volume 4.5L, Neutrophils (%) (Auto) 48.9, Lymphocytes (%) (Auto) 38.4, Monocytes (%) (Auto) 6.9, Eosinophils (%) (Auto) 4.7H, Basophils (%) (Auto) 1.1, Sodium Level 136, Potassium Level 3.7, Chloride Level 104, Carbon Dioxide Level 25, Anion Gap 8, Blood Urea Nitrogen 13, Creatinine 0.6, Estimat Glomerular Filtration Rate > 60, Glucose Level 85, Calcium Level 8.5, Total Bilirubin 0.3, Aspartate Amino Transf (AST/SGOT) 16, Alanine Aminotransferase (ALT/SGPT) 19, Alkaline Phosphatase 153H, Total Protein 6.2L, Albumin 1.5L, Globulin 4.7, Albumin/Globulin Ratio 0.3L Current Medications Medications (Trade) Dose Ordered Sig/Mya Route PRN Reason Start Time Stop Time Status Last Admin Dose Admin Acetaminophen (Tylenol) 650 mg Q4H PRN ORAL Mild Pain (Pain Scale 1-3) 10/31/19 23:00 11/30/19 22:59 Acetaminophen/ Hydrocodone Bitart ([place] 5/325) 1 tab Q4H PRN ORAL Moderate Pain (Pain Scale 4-6) 10/31/19 23:30 11/07/19 23:29 Acetaminophen/ Hydrocodone Bitart ([place] 5/325) 2 tab Q4H PRN ORAL Severe Pain (Pain Scale 7-10) 10/31/19 23:15 11/07/19 23:14 11/01/19 05:18 Ascorbic Acid (Vitamin C) 500 mg DAILY ORAL 11/01/19 09:00 11/23/19 08:59 11/01/19 08:37 Baclofen (Lioresal) 10 mg THREE TIMES A DAY ORAL 11/01/19 09:00 11/22/19 17:59 11/01/19 08:37 Chlorhexidine Gluconate (Simran-Hex 2%) 1 applic DAILY@1999 TOPIC 11/01/19 20:00 01/22/20 19:59 Clonazepam (KlonoPIN) 0.5 mg Q8H PRN ORAL For Anxiety 10/31/19 23:00 11/07/19 22:59 10/31/19 23:29 Desmopressin Acetate (Ddavp) 2 mcg EVERY 12 HOURS IV 11/01/19 09:00 01/29/20 11:59 11/01/19 08:40 Dextrose (Dextrose 50%) 25 ml Q30M PRN IV Hypoglycemia 10/31/19 23:00 01/21/20 17:29 Dextrose (Dextrose 50%) 50 ml Q30M PRN IV Hypoglycemia 10/31/19 23:00 01/21/20 17:29 Diphenhydramine HCl (Benadryl) 25 mg Q6H PRN ORAL Itching/Pruritis 10/31/19 23:30 11/22/19 17:29 Docusate Sodium (Colace) 100 mg EVERY 12 HOURS ORAL 11/01/19 09:00 11/22/19 20:59 11/01/19 08:37 Famotidine (Pepcid) 20 mg DAILY ORAL 11/01/19 09:00 01/28/20 09:29 11/01/19 08:37 Ferrous Sulfate (Feosol) 325 mg DAILY ORAL 11/01/19 09:00 01/22/20 08:59 11/01/19 08:37 Gabapentin (Neurontin) 400 mg Q8HR ORAL 11/01/19 06:00 11/22/19 21:59 11/01/19 05:15 Heparin Sodium (Porcine) (Heparin 5000 units/ml) 5,000 units EVERY 12 HOURS SUBQ 11/01/19 09:00 12/08/19 08:59 11/01/19 08:39 Meropenem 1 gm/ Sodium Chloride 100 ml @ 200 mls/hr Q8H IVPB 11/01/19 02:00 11/03/19 17:59 11/01/19 10:04 Midodrine (Pro-Amatine) 10 mg EVERY 8 HOURS ORAL 11/01/19 06:00 01/21/20 17:59 11/01/19 05:15 Ondansetron HCl (Zofran) 4 mg Q6H PRN IVP Nausea & Vomiting 10/31/19 23:30 11/22/19 17:29 Sodium Hypochlorite (Dakin's Quarter Strength) 1 applic DAILY TOPIC 11/01/19 09:00 11/24/19 08:59 11/01/19 08:37 Sodium Chloride 1,000 ml @ 150 mls/hr Q6H40M IV 10/31/19 22:45 11/25/19 11:26 11/01/19 05:14 Vancomycin HCl (Vanco pharmacy to dose) 1 ea DAILY PRN MISC Per rx protocol 11/01/19 09:00 11/28/19 16:14 Vancomycin HCl 1 gm/Dextrose 275 ml @ 183.708 mls/hr Q12H IVPB 11/01/19 08:00 11/03/19 19:59 11/01/19 08:36 Zinc Sulfate (Zinc Sulfate) 220 mg DAILY ORAL 11/01/19 09:00 01/22/20 08:59 11/01/19 08:37 Assessment/Plan Assessment/Plan IMPRESSION: 1. Septic shock. 2. Complicated UTI with history of previous ESBL infection. 3. Paraplegia. 4. Sacral decubitus. 5. skilled nursing resident. DISCUSSION: PRN pressors. DVT and GI prophylaxes. ID consult noted. I will follow carefully. Ordered Oxygen, doing well on room air at this time. Haily Monzon Omar Syed MD Nov 01, 2019 10:24
--- NOTE | 2019-11-01 11:36 | General Progress Note ---
Assessment/Plan Problem List: (1) Anemia ICD Codes: D64.9 - Anemia, unspecified SNOMED: 645718662 (2) Encephalopathy ICD Codes: G93.40 - Encephalopathy, unspecified SNOMED: 38462388 (3) Drug (multiple) resistant infection SNOMED: 60711057, 26299117059825 (4) Urinary tract infection in male ICD Codes: N39.0 - Urinary tract infection, site not specified SNOMED: 42725348, 410066316 (5) Hypokalemia ICD Codes: E87.6 - Hypokalemia SNOMED: 25075174 (6) Femur fracture ICD Codes: S72.90XA - Unspecified fracture of unspecified femur, initial encounter for closed fracture SNOMED: 43051324 (7) Hyponatremia ICD Codes: E87.1 - Hypo-osmolality and hyponatremia SNOMED: 13391745 (8) Sepsis ICD Codes: A41.9 - Sepsis, unspecified organism SNOMED: 94977270 (9) UTI (urinary tract infection) ICD Codes: N39.0 - Urinary tract infection, site not specified SNOMED: 94682503 (10) Hypotension ICD Codes: I95.9 - Hypotension, unspecified SNOMED: 61352596 (11) Decubital ulcer ICD Codes: L89.90 - Pressure ulcer of unspecified site, unspecified stage SNOMED: 683561206 (12) SEAN (acute kidney injury) ICD Codes: N17.9 - Acute kidney failure, unspecified SNOMED: 6436125, 05951347 Status: stable Assessment/Plan: 59 year old man who presents from [facility] with weakness, encephalopathy, concern for septic shock, possible from UTI vs infected sacral pressure ulcer #Septic shock- improving #Proteus UTI #Acute metabolic encephalopathy -improving #Paraplegia #Sacral pressure ulcer, present on admit -Transfered to step down unit -Off vasopressors -off amikacin, continue meropenem and vancomycin -Spoke with surgery, sacral pressure ulcer does not appear to be infected -Local wound care and offloading #Sinus Bradycardia - improving -continue telemetry -EP following #Hypokalemia -improving -refusing labs sometime -Replete when necessary #Anemia, acute on chronic -2 units RBC 10/28 -Hematology following VTE PPx HSQ Full Code I spent 35 minutes on this patient's case, and 21 mins was dedicated to counseling and care coordination. Discussed with all consultants, Charge nurse and RNs. Subjective Date patient seen: Nov 01, 2019 Time patient seen: 11:32 ROS Limited/Unobtainable: Yes Constitutional: Denies: diaphoresis, fever, malaise, weakness Cardiovascular: Denies: chest pain, irregular heart rate, lightheadedness, palpitations, syncope Respiratory: Denies: cough, orthopnea, shortness of breath, SOB with excertion , SOB at rest Gastrointestinal/Abdominal: Denies: abdomen distended, abdominal pain, black stools, tarry stools, blood in stool Genitourinary: Denies: burning, discharge, frequency, flank pain Neurologic/Psychiatric: Denies: anxiety, depressed Endocrine: Denies: excessive sweating, flushing, intolerance to cold Allergies: Coded Allergies: No Known Allergies (Unverified , 08/15/19) Subjective He sates he feels fine. In no pain. Off Levophed for 24 hrs. Objective Last 24 Hour Vital Signs Date Time Temp Pulse Resp B/P (MAP) Pulse Ox O2 Delivery O2 Flow Rate FiO2 11/01/19 08:00 97.0 62 22 120/69 (86) 96 11/01/19 07:56 65 11/01/19 04:00 97.5 58 16 98/56 (70) 98 11/01/19 04:00 Room Air 11/01/19 03:59 63 11/01/19 00:44 Room Air 11/01/19 00:00 98.6 76 16 122/71 (88) 97 10/31/19 23:33 81 10/31/19 22:00 73 15 92/59 (70) 98 10/31/19 21:00 74 15 104/60 (75) 97 10/31/19 21:00 104/50 10/31/19 20:00 Room Air 10/31/19 20:00 74 10/31/19 20:00 98.6 76 10 95/59 (71) 97 10/31/19 19:00 80 20 97/56 (70) 97 10/31/19 18:00 87 18 92/54 (67) 96 10/31/19 17:00 82 16 90/50 (63) 96 10/31/19 16:00 Room Air 10/31/19 16:00 71 10/31/19 16:00 75 14 90/58 (69) 96 10/31/19 15:00 65 14 87/46 (60) 95 10/31/19 14:00 76 17 102/76 (85) 91 10/31/19 13:30 69 11 96/44 (61) 97 10/31/19 13:00 72 11 96/53 (67) 98 10/31/19 12:30 76 13 97/51 (66) 97 10/31/19 12:00 Room Air 10/31/19 12:00 98.4 73 13 103/72 (82) 97 10/31/19 12:00 68 Intake and Output 10/31/19 11/01/19 19:00 07:00 Intake Total 2100 ml 2390 ml Output Total 2475 ml 1840 ml Balance -375 ml 550 ml Intake Oral 250 ml IV Total 2100 ml 2140 ml Output Urine Total 2475 ml 1820 ml Stool Total 20 ml # Bowel Movements 2 Laboratory Tests 11/01/19 03:30: White Blood Count 6.3, Red Blood Count 3.07L, Hemoglobin 8.3L, Hematocrit 26.1L , Mean Corpuscular Volume 85, Mean Corpuscular Hemoglobin 26.9L, Mean Corpuscular Hemoglobin Concent 31.7L, Red Cell Distribution Width 18.1H, Platelet Count 381, Mean Platelet Volume 4.5L, Neutrophils (%) (Auto) 48.9, Lymphocytes (%) (Auto) 38.4, Monocytes (%) (Auto) 6.9, Eosinophils (%) (Auto) 4.7H, Basophils (%) (Auto) 1.1, Sodium Level 136, Potassium Level 3.7, Chloride Level 104, Carbon Dioxide Level 25, Anion Gap 8, Blood Urea Nitrogen 13, Creatinine 0.6, Estimat Glomerular Filtration Rate > 60, Glucose Level 85, Calcium Level 8.5, Total Bilirubin 0.3, Aspartate Amino Transf (AST/SGOT) 16, Alanine Aminotransferase (ALT/SGPT) 19, Alkaline Phosphatase 153H, Total Protein 6.2L, Albumin 1.5L, Globulin 4.7, Albumin/Globulin Ratio 0.3L Height (Feet): 5 Height (Inches): 7.00 Weight (Pounds): 113 General Appearance: WD/WN, no apparent distress, alert, cachetic EENT: PERRL/EOMI Neck: non-tender, normal alignment, supple Cardiovascular: normal peripheral pulses, normal rate, regular rhythm, no gallop/murmur, no JVD Respiratory/Chest: chest wall non-tender, lungs clear, normal breath sounds, no respiratory distress, no accessory muscle use Abdomen: normal bowel sounds, non tender, soft, no organomegaly Pelvis: normal external exam Extremities: normal range of motion, non-tender Edema: no edema noted Arm (L), no edema noted Arm (R), no edema noted Leg (L), no edema noted Leg (R), no edema noted Pedal (L), no edema noted Pedal (R), no edema noted 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 Nov 01, 2019 11:36
[2019-11-01 12:00] VITALS: BP 127/68
--- NOTE | 2019-11-01 13:00 | Surgery Progress Note ---
Surgery Progress Note Subjective Symptoms: improved, tolerating diet, passing flatus, BM Objective Last 24 Hour Vital Signs Date Time Temp Pulse Resp B/P (MAP) Pulse Ox O2 Delivery O2 Flow Rate FiO2 11/01/19 12:00 98.4 74 21 127/68 (87) 97 11/01/19 12:00 75 11/01/19 08:00 97.0 62 22 120/69 (86) 96 11/01/19 07:56 65 11/01/19 04:00 97.5 58 16 98/56 (70) 98 11/01/19 04:00 Room Air 11/01/19 03:59 63 11/01/19 00:44 Room Air 11/01/19 00:00 98.6 76 16 122/71 (88) 97 10/31/19 23:33 81 10/31/19 22:00 73 15 92/59 (70) 98 10/31/19 21:00 74 15 104/60 (75) 97 10/31/19 21:00 104/50 10/31/19 20:00 Room Air 10/31/19 20:00 74 10/31/19 20:00 98.6 76 10 95/59 (71) 97 10/31/19 19:00 80 20 97/56 (70) 97 10/31/19 18:00 87 18 92/54 (67) 96 10/31/19 17:00 82 16 90/50 (63) 96 10/31/19 16:00 Room Air 10/31/19 16:00 71 10/31/19 16:00 75 14 90/58 (69) 96 10/31/19 15:00 65 14 87/46 (60) 95 10/31/19 14:00 76 17 102/76 (85) 91 10/31/19 13:30 69 11 96/44 (61) 97 I&O Intake and Output 10/31/19 11/01/19 19:00 07:00 Intake Total 2100 ml 2390 ml Output Total 2475 ml 1840 ml Balance -375 ml 550 ml Intake Oral 250 ml IV Total 2100 ml 2140 ml Output Urine Total 2475 ml 1820 ml Stool Total 20 ml # Bowel Movements 2 Dressing: dry Wound: clean Cardiovascular: RSR Respiratory: clear Abdomen: soft, non-tender, present bowel sounds Extremities: no edema, no tenderness, no cyanosis Laboratory Tests Test 11/01/19 03:30 White Blood Count 6.3 K/UL (4.8-10.8) Red Blood Count 3.07 M/UL (4.70-6.10) L Hemoglobin 8.3 G/DL (14.2-18.0) L Hematocrit 26.1 % (42.0-52.0) L Mean Corpuscular Volume 85 FL (80-99) Mean Corpuscular Hemoglobin 26.9 PG (27.0-31.0) L Mean Corpuscular Hemoglobin Concent 31.7 G/DL (32.0-36.0) L Red Cell Distribution Width 18.1 % (11.6-14.8) H Platelet Count 381 K/UL (150-450) Mean Platelet Volume 4.5 FL (6.5-10.1) L Neutrophils (%) (Auto) 48.9 % (45.0-75.0) Lymphocytes (%) (Auto) 38.4 % (20.0-45.0) Monocytes (%) (Auto) 6.9 % (1.0-10.0) Eosinophils (%) (Auto) 4.7 % (0.0-3.0) H Basophils (%) (Auto) 1.1 % (0.0-2.0) Sodium Level 136 MMOL/L (136-145) Potassium Level 3.7 MMOL/L (3.5-5.1) Chloride Level 104 MMOL/L (98-107) Carbon Dioxide Level 25 MMOL/L (21-32) Anion Gap 8 mmol/L (5-15) Blood Urea Nitrogen 13 mg/dL (7-18) Creatinine 0.6 MG/DL (0.55-1.30) Estimat Glomerular Filtration Rate > 60 mL/min (>60) Glucose Level 85 MG/DL (74-106) Calcium Level 8.5 MG/DL (8.5-10.1) Total Bilirubin 0.3 MG/DL (0.2-1.0) Aspartate Amino Transf (AST/SGOT) 16 U/L (15-37) Alanine Aminotransferase (ALT/SGPT) 19 U/L (12-78) Alkaline Phosphatase 153 U/L (46-116) H Total Protein 6.2 G/DL (6.4-8.2) L Albumin 1.5 G/DL (3.4-5.0) L Globulin 4.7 g/dL Albumin/Globulin Ratio 0.3 (1.0-2.7) L Plan Problems: (1) Abdominal distension Assessment & Plan: abd distention soft non tender ostomy viable and reduced KUB ordered pending results improved comfortable no complaints okay for diet s tolerated There is an inferior vena cava filter in place. Bowel gas pattern is unremarkable. Considerable stool is seen in the transverse and distal colon. There is extensive pelvic deformity, with loss of the left femoral head, chronic dislocation of the left femur, and extensive pelvic deformity, particularly on the left. Adi project over the upper pelvis Impression: Possible constipation. 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 [place] Shaped, Full Thickness Sacral Pressure Injury which extends into L ischium. (L)15.4cm x (W)18cm x (D)2.4cm, Undermining clockwise 10-2 by 7.7cm @ 11o'clock. Base of wound is moist,pink with scattered slough at base of wound. Bone is palpable at the Base. No odor or exudate noted. Scattered partial thickness wounds and Serous filled blisters noted to R trochanteric /R Hip areas. Historical scar noted to L groin, L Hip L Buttocks. Bony protrusion noted at L Hip. Full thickness Pressure Injury R Ischium(L)5.4cm x(W)6.9cm x (D)1.8cm, Undermining clockwise 1-4 by 2.7cm @2o'clock, Tunneling@7o'clock 2.9cm. Base of wound is moist pink with scattered slough. Scattered slough noted along borders. NO odor or exudate noted. Stable dry eschar noted to medial R knee 0.7cm x (W)0.4cm. Periwound is erythematous and indurated. No elevation in skin temp noted. L heel has shaved appearance secondary to Hx of Pressure Injuries. Base of heel is pale pink. Bone is palpable. Small area of slough noted within compromised area(L)0.6cm x (W)0.8cm. L Heel Also has shaved appearance with hypertrophic scarring. Base of compromised area is pale pink, Bone is palpable, with scattered loose, dry and scaly skin. Tx.Plan: Cleanse Sacral Wound and R Ischial wounds with Dakin's 0.125% gian. Loosely pack wounds with Hydrogel impregnated Kerlix. Apply Moisture Barrier Paste periwound. Cover with ABD Pads secure with Tegaderm drsg.Daily and prn. Apply Triad Paste to R Hip/R trochanteric areas.Cover with Optifoam drsg. Change every 7 days and prn. Apply Betadine to Medial R Knee. Cover with Optifoam drsg. Change every 7 days and prn. Apply Betadine to R and L Heels. Cover each Heel with Optifoam drsgs. Change every 7 days and prn. Cover Bony Prominences as needed with Optifoam drsgs. Reposition at least every 2 [address] tolerated[address] Pillow between knees. Off-load heels with pillow. APM/SUMI Mattress overlay (15) SEAN (acute kidney injury) (16) Ileostomy prolapse Assessment & Plan: currently reduced but abd distended pending films films reviewed improved okay for diet d/c planning Cornelius Salgado Nov 01, 2019 13:00
--- NOTE | 2019-11-01 13:15 | Nephrology Progress Note ---
Assessment/Plan Plan #Polyuria - r/o DI vs dopamine effect??- however sodium remains in normal range #Shock #UTI # infected sacral pressure ulcer #Acute metabolic encephalopathy #Paraplegia #Sacral pressure ulcer #Hypokalemia #Anemia - continue NS hydration - decrease NS to 75 cc/hr - continue desmopressin at 2 BID - replete mag and K - continue midodrine 10 TID - antibiotics per ID - continue pressors to maintain MAP > 65 - monitor lytes - monitor for vanoc toxicity - avoid nephrotoxins - daily weights - strict I&Os time spent 70 min- greater than 50% on care coordination and counseling Subjective ROS Limited/Unobtainable: Yes Subjective sodium stable remains polyuric transferred out of ICU off levo Objective Objective Last 24 Hour Vital Signs Date Time Temp Pulse Resp B/P (MAP) Pulse Ox O2 Delivery O2 Flow Rate FiO2 11/01/19 12:00 98.4 74 21 127/68 (87) 97 11/01/19 12:00 75 11/01/19 08:00 97.0 62 22 120/69 (86) 96 11/01/19 07:56 65 11/01/19 04:00 97.5 58 16 98/56 (70) 98 11/01/19 04:00 Room Air 11/01/19 03:59 63 11/01/19 00:44 Room Air 11/01/19 00:00 98.6 76 16 122/71 (88) 97 10/31/19 23:33 81 10/31/19 22:00 73 15 92/59 (70) 98 10/31/19 21:00 74 15 104/60 (75) 97 10/31/19 21:00 104/50 10/31/19 20:00 Room Air 10/31/19 20:00 74 10/31/19 20:00 98.6 76 10 95/59 (71) 97 10/31/19 19:00 80 20 97/56 (70) 97 10/31/19 18:00 87 18 92/54 (67) 96 10/31/19 17:00 82 16 90/50 (63) 96 10/31/19 16:00 Room Air 10/31/19 16:00 71 10/31/19 16:00 75 14 90/58 (69) 96 10/31/19 15:00 65 14 87/46 (60) 95 10/31/19 14:00 76 17 102/76 (85) 91 10/31/19 13:30 69 11 96/44 (61) 97 Intake and Output 10/31/19 11/01/19 19:00 07:00 Intake Total 2100 ml 2390 ml Output Total 2475 ml 1840 ml Balance -375 ml 550 ml Intake Oral 250 ml IV Total 2100 ml 2140 ml Output Urine Total 2475 ml 1820 ml Stool Total 20 ml # Bowel Movements 2 Laboratory Tests 11/01/19 03:30: White Blood Count 6.3, Red Blood Count 3.07L, Hemoglobin 8.3L, Hematocrit 26.1L , Mean Corpuscular Volume 85, Mean Corpuscular Hemoglobin 26.9L, Mean Corpuscular Hemoglobin Concent 31.7L, Red Cell Distribution Width 18.1H, Platelet Count 381, Mean Platelet Volume 4.5L, Neutrophils (%) (Auto) 48.9, Lymphocytes (%) (Auto) 38.4, Monocytes (%) (Auto) 6.9, Eosinophils (%) (Auto) 4.7H, Basophils (%) (Auto) 1.1, Sodium Level 136, Potassium Level 3.7, Chloride Level 104, Carbon Dioxide Level 25, Anion Gap 8, Blood Urea Nitrogen 13, Creatinine 0.6, Estimat Glomerular Filtration Rate > 60, Glucose Level 85, Calcium Level 8.5, Total Bilirubin 0.3, Aspartate Amino Transf (AST/SGOT) 16, Alanine Aminotransferase (ALT/SGPT) 19, Alkaline Phosphatase 153H, Total Protein 6.2L, Albumin 1.5L, Globulin 4.7, Albumin/Globulin Ratio 0.3L Height (Feet): 5 Height (Inches): 7.00 Weight (Pounds): 113 Sienna Georges M.D. Nov 01, 2019 13:15
--- NOTE | 2019-11-01 13:16 | Cardiac Electrophysiology PN ---
Assessment/Plan Assessment/Plan 1. S/P Septic shock. Off Levophed. On Midodrine and IV antibiotic and iv fluid 2. Bradycardia. Resolved. 3. Paraplegia. 4. Urinary tract infection, followed by Dr. Painting on broad-spectrum IV antibiotic. 5. Decubitus ulcers with sacral decubitus. 6. S/P Ileostomy/ 7. Polyuria, DI. On NS and DDAVP. DW RN Subjective Subjective Alert in NAD out of ICU. Off pressors. S/P 2 PRBC for Hb 6.8 Objective Last 24 Hour Vital Signs Date Time Temp Pulse Resp B/P (MAP) Pulse Ox O2 Delivery O2 Flow Rate FiO2 11/01/19 12:00 98.4 74 21 127/68 (87) 97 11/01/19 12:00 75 11/01/19 08:00 97.0 62 22 120/69 (86) 96 11/01/19 07:56 65 11/01/19 04:00 97.5 58 16 98/56 (70) 98 11/01/19 04:00 Room Air 11/01/19 03:59 63 11/01/19 00:44 Room Air 11/01/19 00:00 98.6 76 16 122/71 (88) 97 10/31/19 23:33 81 10/31/19 22:00 73 15 92/59 (70) 98 10/31/19 21:00 74 15 104/60 (75) 97 10/31/19 21:00 104/50 10/31/19 20:00 Room Air 10/31/19 20:00 74 10/31/19 20:00 98.6 76 10 95/59 (71) 97 10/31/19 19:00 80 20 97/56 (70) 97 10/31/19 18:00 87 18 92/54 (67) 96 10/31/19 17:00 82 16 90/50 (63) 96 10/31/19 16:00 Room Air 10/31/19 16:00 71 10/31/19 16:00 75 14 90/58 (69) 96 10/31/19 15:00 65 14 87/46 (60) 95 10/31/19 14:00 76 17 102/76 (85) 91 10/31/19 13:30 69 11 96/44 (61) 97 Intake and Output 818/20 8/19/20 19:00 07:00 Intake Total 2100 ml 2390 ml Output Total 2475 ml 1840 ml Balance -375 ml 550 ml Intake Oral 250 ml IV Total 2100 ml 2140 ml Output Urine Total 2475 ml 1820 ml Stool Total 20 ml # Bowel Movements 2 Laboratory Tests Test 11/01/19 03:30 White Blood Count 6.3 K/UL (4.8-10.8) Red Blood Count 3.07 M/UL (4.70-6.10) L Hemoglobin 8.3 G/DL (14.2-18.0) L Hematocrit 26.1 % (42.0-52.0) L Mean Corpuscular Volume 85 FL (80-99) Mean Corpuscular Hemoglobin 26.9 PG (27.0-31.0) L Mean Corpuscular Hemoglobin Concent 31.7 G/DL (32.0-36.0) L Red Cell Distribution Width 18.1 % (11.6-14.8) H Platelet Count 381 K/UL (150-450) Mean Platelet Volume 4.5 FL (6.5-10.1) L Neutrophils (%) (Auto) 48.9 % (45.0-75.0) Lymphocytes (%) (Auto) 38.4 % (20.0-45.0) Monocytes (%) (Auto) 6.9 % (1.0-10.0) Eosinophils (%) (Auto) 4.7 % (0.0-3.0) H Basophils (%) (Auto) 1.1 % (0.0-2.0) Sodium Level 136 MMOL/L (136-145) Potassium Level 3.7 MMOL/L (3.5-5.1) Chloride Level 104 MMOL/L (98-107) Carbon Dioxide Level 25 MMOL/L (21-32) Anion Gap 8 mmol/L (5-15) Blood Urea Nitrogen 13 mg/dL (7-18) Creatinine 0.6 MG/DL (0.55-1.30) Estimat Glomerular Filtration Rate > 60 mL/min (>60) Glucose Level 85 MG/DL (74-106) Calcium Level 8.5 MG/DL (8.5-10.1) Total Bilirubin 0.3 MG/DL (0.2-1.0) Aspartate Amino Transf (AST/SGOT) 16 U/L (15-37) Alanine Aminotransferase (ALT/SGPT) 19 U/L (12-78) Alkaline Phosphatase 153 U/L (46-116) H Total Protein 6.2 G/DL (6.4-8.2) L Albumin 1.5 G/DL (3.4-5.0) L Globulin 4.7 g/dL Albumin/Globulin Ratio 0.3 (1.0-2.7) L Objective HEAD AND NECK: No JVD. Right IJ central line. LUNGS: Coarse rhonchi. CARDIOVASCULAR: Regular S1 and S2 with no gallop. ABDOMEN: Soft.S/P Ileostomy EXTREMITIES: No pitting edema, however, has pressure ulcers. Carloz Estes MD Nov 01, 2019 13:16
[2019-11-01 16:00] VITALS: BP 105/61
[2019-11-01] MEDS ORDERED: NS 275ml ONE (16:03)
[2019-11-01] MEDS ORDERED: Tubing IV Blood Pump IV ONE (16:03)
[2019-11-01] MEDS ORDERED: Tubing IV Secondary IV ONE (16:03)
--- NOTE | 2019-11-01 19:12 | Neurology Progress Note ---
Interim History Interim History ROS Limited/Unobtainable: Yes Interim History 59-year-old male with past medical history of paraplegia, sacral decubitus ulcer , anemia, hypertension, ESBL multidrug-resistant urinary tract infection sent from custodial facility by ambulance for hypotension, general weakness and confusion. In ED he was noted to be altered with mild hypotension with SBP in 90s, lactate 2.0, UA with mild pyuria. Patient was to be admitted to tele but was upgraded to MICU due to persistent hypotension and bradycardia to 44, started on Levophed and dopamine improved now, more alert Objective Physical Exam Last Vital Signs Date Time Temp Pulse Resp B/P (MAP) Pulse Ox O2 Delivery O2 Flow Rate FiO2 11/01/19 16:00 98.8 65 22 105/61 (76) 98 11/01/19 16:00 Room Air Laboratory Tests Test 11/01/19 03:30 White Blood Count 6.3 K/UL (4.8-10.8) Red Blood Count 3.07 M/UL (4.70-6.10) L Hemoglobin 8.3 G/DL (14.2-18.0) L Hematocrit 26.1 % (42.0-52.0) L Mean Corpuscular Volume 85 FL (80-99) Mean Corpuscular Hemoglobin 26.9 PG (27.0-31.0) L Mean Corpuscular Hemoglobin Concent 31.7 G/DL (32.0-36.0) L Red Cell Distribution Width 18.1 % (11.6-14.8) H Platelet Count 381 K/UL (150-450) Mean Platelet Volume 4.5 FL (6.5-10.1) L Neutrophils (%) (Auto) 48.9 % (45.0-75.0) Lymphocytes (%) (Auto) 38.4 % (20.0-45.0) Monocytes (%) (Auto) 6.9 % (1.0-10.0) Eosinophils (%) (Auto) 4.7 % (0.0-3.0) H Basophils (%) (Auto) 1.1 % (0.0-2.0) Sodium Level 136 MMOL/L (136-145) Potassium Level 3.7 MMOL/L (3.5-5.1) Chloride Level 104 MMOL/L (98-107) Carbon Dioxide Level 25 MMOL/L (21-32) Anion Gap 8 mmol/L (5-15) Blood Urea Nitrogen 13 mg/dL (7-18) Creatinine 0.6 MG/DL (0.55-1.30) Estimat Glomerular Filtration Rate > 60 mL/min (>60) Glucose Level 85 MG/DL (74-106) Calcium Level 8.5 MG/DL (8.5-10.1) Total Bilirubin 0.3 MG/DL (0.2-1.0) Aspartate Amino Transf (AST/SGOT) 16 U/L (15-37) Alanine Aminotransferase (ALT/SGPT) 19 U/L (12-78) Alkaline Phosphatase 153 U/L (46-116) H Total Protein 6.2 G/DL (6.4-8.2) L Albumin 1.5 G/DL (3.4-5.0) L Globulin 4.7 g/dL Albumin/Globulin Ratio 0.3 (1.0-2.7) L Neurologic Exam Mental Status: awake, alert Impression/Recommendations Status: stable Diagnostic Impression 59 year old man who presents from [facility] with weakness, encephalopathy, concern for septic shock, possible from UTI vs infected sacral pressure ulcer Encephalopathy, improving Sepsis, improved Paraplegia Jose Joyner MD Nov 01, 2019 19:12
[2019-11-01] MEDS: Dyna-Hex 2% Top Sol 2oz TOPIC SCH (19:35)
[2019-11-01 20:00] VITALS: BP 113/59
[2019-11-01] MEDS ORDERED: Dyna-Hex 2% Top Sol 2oz TOPIC SCH (20:00)
--- NOTE | 2019-11-01 23:01 | Consultation ---
History of Present Illness General Date patient seen: Oct 31, 2019 Chief Complaint: General Complaint Reason for Consultation: Polyuria Present Illness HPI 59-year-old male with past medical history of paraplegia, sacral decubitus ulcer , anemia, hypertension, ESBL multidrug-resistant urinary tract infection sent from senior living facility by ambulance for hypotension, general weakness and confusion. In ED he was noted to be altered with mild hypotension with SBP in 90s, lactate 2.0, UA with mild pyuria. Patient was to be admitted to tele but was upgraded to MICU due to persistent hypotension and bradycardia to 44, started on Levophed and dopamine Allergies: Coded Allergies: No Known Allergies (Unverified , 08/15/19) Medication History Scheduled Amino Acids/Protein Hydrolys (Pro-Stat Liquid), 30 ML ORAL THREE TIMES A DAY, ( Reported) Ascorbic Acid* (Ascorbic Acid*), 500 MG ORAL DAILY, (Reported) Baclofen* (Baclofen*), 10 MG ORAL THREE TIMES A DAY, (Reported) Clonazepam* (Klonopin*), 0.5 MG ORAL TID, (Reported) Cranberry Fruit (Cranberry), 450 MG PO DAILY, (Reported) Docusate Sodium* (Docusate Sodium*), 100 MG ORAL TWICE A DAY, (Reported) Ferrous Sulfate* (Ferrous Sulfate*), 325 MG ORAL DAILY, (Reported) Gabapentin* (Gabapentin*), 400 MG ORAL THREE TIMES A DAY, (Reported) Heparin Sod (Porcine) (Heparin Sodium*), 5,000 UNITS SUBQ EVERY 12 HOURS, ( Reported) Multivitamins* (Multivitamins*), 1 TAB ORAL DAILY, (Reported) Omeprazole (Omeprazole), 20 MG ORAL TWICE A DAY, (Reported) Scheduled PRN Acetaminophen* (Acetaminophen 325MG Tablet*), 650 MG ORAL Q6H PRN for pain/fever , (Reported) Acetaminophen* (Tylenol Extra Strength*), 500 MG ORAL DAILY PRN for pain management wound care, (Reported) Hydrocodone Bit/Acetaminophen 10-325* (Pingree 10-325*), 1 TAB ORAL Q6H PRN for For Pain, (Reported) Magnesium Hydroxide* (Milk Of Magnesia*), 30 ML ORAL DAILY PRN for Constipation, (Reported) Tramadol Hcl* (Ultram*), 50 MG ORAL Q6H PRN for For Pain, (Reported) Patient History Healthcare decision maker Resuscitation status Advanced Directive on File Physical Exam General Appearance: alert, confused HEENT: atraumatic Respiratory/Chest: lungs clear Breasts: no masses Cardiovascular/Chest: normal peripheral pulses Last 24 Hour Vital Signs Date Time Temp Pulse Resp B/P (MAP) Pulse Ox O2 Delivery O2 Flow Rate FiO2 11/01/19 20:00 Room Air Room Air 11/01/19 20:00 78 11/01/19 20:00 97.6 78 16 113/59 (77) 98 11/01/19 16:00 98.8 65 22 105/61 (76) 98 11/01/19 16:00 76 11/01/19 16:00 Room Air 11/01/19 12:00 98.4 74 21 127/68 (87) 97 11/01/19 12:00 75 11/01/19 12:00 Room Air 11/01/19 08:00 97.0 62 22 120/69 (86) 96 11/01/19 08:00 Room Air 11/01/19 07:56 65 11/01/19 04:00 97.5 58 16 98/56 (70) 98 11/01/19 04:00 Room Air 11/01/19 03:59 63 11/01/19 00:44 Room Air 11/01/19 00:00 98.6 76 16 122/71 (88) 97 10/31/19 23:33 81 Intake and Output 10/31/19 11/01/19 19:00 07:00 Intake Total 2100 ml 2390 ml Output Total 2475 ml 1840 ml Balance -375 ml 550 ml Intake Oral 250 ml IV Total 2100 ml 2140 ml Output Urine Total 2475 ml 1820 ml Stool Total 20 ml # Bowel Movements 2 Laboratory Tests Test 11/01/19 03:30 White Blood Count 6.3 K/UL (4.8-10.8) Red Blood Count 3.07 M/UL (4.70-6.10) L Hemoglobin 8.3 G/DL (14.2-18.0) L Hematocrit 26.1 % (42.0-52.0) L Mean Corpuscular Volume 85 FL (80-99) Mean Corpuscular Hemoglobin 26.9 PG (27.0-31.0) L Mean Corpuscular Hemoglobin Concent 31.7 G/DL (32.0-36.0) L Red Cell Distribution Width 18.1 % (11.6-14.8) H Platelet Count 381 K/UL (150-450) Mean Platelet Volume 4.5 FL (6.5-10.1) L Neutrophils (%) (Auto) 48.9 % (45.0-75.0) Lymphocytes (%) (Auto) 38.4 % (20.0-45.0) Monocytes (%) (Auto) 6.9 % (1.0-10.0) Eosinophils (%) (Auto) 4.7 % (0.0-3.0) H Basophils (%) (Auto) 1.1 % (0.0-2.0) Sodium Level 136 MMOL/L (136-145) Potassium Level 3.7 MMOL/L (3.5-5.1) Chloride Level 104 MMOL/L (98-107) Carbon Dioxide Level 25 MMOL/L (21-32) Anion Gap 8 mmol/L (5-15) Blood Urea Nitrogen 13 mg/dL (7-18) Creatinine 0.6 MG/DL (0.55-1.30) Estimat Glomerular Filtration Rate > 60 mL/min (>60) Glucose Level 85 MG/DL (74-106) Calcium Level 8.5 MG/DL (8.5-10.1) Total Bilirubin 0.3 MG/DL (0.2-1.0) Aspartate Amino Transf (AST/SGOT) 16 U/L (15-37) Alanine Aminotransferase (ALT/SGPT) 19 U/L (12-78) Alkaline Phosphatase 153 U/L (46-116) H Total Protein 6.2 G/DL (6.4-8.2) L Albumin 1.5 G/DL (3.4-5.0) L Globulin 4.7 g/dL Albumin/Globulin Ratio 0.3 (1.0-2.7) L Height (Feet): 5 Height (Inches): 7.00 Weight (Pounds): 113 Medications Current Medications Medications (Trade) Dose Ordered Sig/Mya Route PRN Reason Start Time Stop Time Status Last Admin Dose Admin Acetaminophen (Tylenol) 650 mg Q4H PRN ORAL Mild Pain (Pain Scale 1-3) 10/31/19 23:00 11/30/19 22:59 Acetaminophen/ Hydrocodone Bitart (Pingree 5/325) 1 tab Q4H PRN ORAL Moderate Pain (Pain Scale 4-6) 10/31/19 23:30 11/07/19 23:29 11/01/19 15:15 Acetaminophen/ Hydrocodone Bitart (Pingree 5/325) 2 tab Q4H PRN ORAL Severe Pain (Pain Scale 7-10) 10/31/19 23:15 11/07/19 23:14 11/01/19 19:36 Ascorbic Acid (Vitamin C) 500 mg DAILY ORAL 11/01/19 09:00 11/23/19 08:59 11/01/19 08:37 Baclofen (Lioresal) 10 mg THREE TIMES A DAY ORAL 11/01/19 09:00 11/22/19 17:59 11/01/19 17:17 Chlorhexidine Gluconate (Simran-Hex 2%) 1 applic DAILY@1999 TOPIC 11/01/19 20:00 01/22/20 19:59 11/01/19 19:35 Clonazepam (KlonoPIN) 0.5 mg Q8H PRN ORAL For Anxiety 10/31/19 23:00 11/07/19 22:59 10/31/19 23:29 Desmopressin Acetate (Ddavp) 2 mcg EVERY 12 HOURS IV 11/01/19 09:00 01/29/20 11:59 11/01/19 20:28 Dextrose (Dextrose 50%) 25 ml Q30M PRN IV Hypoglycemia 10/31/19 23:00 01/21/20 17:29 Dextrose (Dextrose 50%) 50 ml Q30M PRN IV Hypoglycemia 10/31/19 23:00 01/21/20 17:29 Diphenhydramine HCl (Benadryl) 25 mg Q6H PRN ORAL Itching/Pruritis 10/31/19 23:30 11/22/19 17:29 Docusate Sodium (Colace) 100 mg EVERY 12 HOURS ORAL 11/01/19 09:00 11/22/19 20:59 11/01/19 08:37 Famotidine (Pepcid) 20 mg DAILY ORAL 11/01/19 09:00 01/28/20 09:29 11/01/19 08:37 Ferrous Sulfate (Feosol) 325 mg DAILY ORAL 11/01/19 09:00 01/22/20 08:59 11/01/19 08:37 Gabapentin (Neurontin) 400 mg Q8HR ORAL 11/01/19 06:00 11/22/19 21:59 11/01/19 22:09 Heparin Sodium (Porcine) (Heparin 5000 units/ml) 5,000 units EVERY 12 HOURS SUBQ 11/01/19 09:00 12/08/19 08:59 11/01/19 20:29 Meropenem 1 gm/ Sodium Chloride 100 ml @ 200 mls/hr Q8H IVPB 11/01/19 02:00 11/03/19 17:59 11/01/19 17:17 Midodrine (Pro-Amatine) 10 mg EVERY 8 HOURS ORAL 11/01/19 06:00 01/21/20 17:59 11/01/19 22:09 Ondansetron HCl (Zofran) 4 mg Q6H PRN IVP Nausea & Vomiting 10/31/19 23:30 11/22/19 17:29 Sodium Hypochlorite (Dakin's Quarter Strength) 1 applic DAILY TOPIC 11/01/19 09:00 11/24/19 08:59 11/01/19 08:37 Sodium Chloride 1,000 ml @ 75 mls/hr [id number] IV 11/01/19 22:45 11/25/19 11:26 11/01/19 22:44 Vancomycin HCl (Vanco pharmacy to dose) 1 ea DAILY PRN MISC Per rx protocol 11/01/19 09:00 11/28/19 16:14 Vancomycin HCl 1 gm/Dextrose 275 ml @ 183.708 mls/hr Q12H IVPB 11/01/19 08:00 11/03/19 19:59 11/01/19 19:35 Zinc Sulfate (Zinc Sulfate) 220 mg DAILY ORAL 11/01/19 09:00 01/22/20 08:59 11/01/19 08:37 Assessment/Plan Problem List: (1) Anemia ICD Codes: D64.9 - Anemia, unspecified SNOMED: 688061239 (2) Encephalopathy ICD Codes: G93.40 - Encephalopathy, unspecified SNOMED: 35824684 (3) Drug (multiple) resistant infection SNOMED: 37118145, 42536373389053 (4) Urinary tract infection in male ICD Codes: N39.0 - Urinary tract infection, site not specified SNOMED: 68876496, 910712995 (5) Hypokalemia ICD Codes: E87.6 - Hypokalemia SNOMED: 45193066 (6) Femur fracture ICD Codes: S72.90XA - Unspecified fracture of unspecified femur, initial encounter for closed fracture SNOMED: 30657369 (7) Hyponatremia ICD Codes: E87.1 - Hypo-osmolality and hyponatremia SNOMED: 08752757 (8) Sepsis ICD Codes: A41.9 - Sepsis, unspecified organism SNOMED: 38528600 (9) UTI (urinary tract infection) ICD Codes: N39.0 - Urinary tract infection, site not specified SNOMED: 20621073 (10) Hypotension ICD Codes: I95.9 - Hypotension, unspecified SNOMED: 37093656 (11) Vomiting ICD Codes: R11.10 - Vomiting, unspecified SNOMED: 466036298 (12) Left leg pain ICD Codes: M79.605 - Pain in left leg SNOMED: 352168158 (13) Decubital ulcer ICD Codes: L89.90 - Pressure ulcer of unspecified site, unspecified stage SNOMED: 983083370 (14) SEAN (acute kidney injury) ICD Codes: N17.9 - Acute kidney failure, unspecified SNOMED: 5184922, 46157843 (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
[2019-11-02] VITALS: BP 122/65
[2019-11-02 04:00] VITALS: BP 103/59
[2019-11-02] MEDS: Midodrine 10mg tab ORAL SCH ×3 (05:20→22:05)
[2019-11-02] MEDS: HYDROcodone/Acetamin 5/325 tab ORAL PRN ×2 (05:21→13:03)
--- NOTE | 2019-11-02 06:54 | Hematology/Onc Progress Note ---
Assessment/Plan Assessment/Plan Assessment/recs # Anemia rule out gi bleed, as well as iron deficiency --> hgb 8.2-->7.2-->7.1->6.9-->8.6-->8.3 --> anemia panel ordered--> cw acd --> occult blood pending --> gi eval prn --> transfuse as needed -> transfuse 2 units 10/27 # Coagulopathy with elev ptt/inr --> vitk and ffp as needed --> no bleeding noted at this time # Hypotension likely due to septic shock. Was diuresing heavily at 300 mL an hour. --> Continue Midodrine and dopamine. --> initially on IV antibiotic with vancomycin and meropenem and amikacin-->christel --> in icu, is on pressor --> as per cards # Bradycardia. Continue dopamine. --> cards # Paraplegia. # Urinary tract infection --> followed by Dr. Painting on broad-spectrum IV antibiotic. # Decubitus ulcers with sacral decubitus. # Dvt heparin sq Appreciate consultation and chandrakant RN Subjective HEENT: Denies: no symptoms, eye pain, blurred vision, tearing, double vision, ear pain, ear discharge, nose pain, nose congestion, throat pain, throat swelling, mouth pain, mouth swelling, other Cardiovascular: Denies: no symptoms, chest pain, edema, irregular heart rate, lightheadedness, palpitations, syncope, other Gastrointestinal/Abdominal: Denies: no symptoms, abdomen distended, abdominal pain, black stools, tarry stools, blood in stool, constipated, diarrhea, difficulty swallowing, nausea, poor appetite, poor fluid intake, rectal bleeding , vomiting, other Genitourinary: Denies: no symptoms, burning, discharge, frequency, flank pain, hematuria, incontinence, pain, urgency, other Endocrine: Denies: no symptoms, excessive sweating, flushing, intolerance to cold, intolerance to heat, increased hunger, increased thirst, increased urine, unexplained weight gain, unexplained weight loss, other Hematologic/Lymphatic: Denies: no symptoms, anemia, easy bleeding, easy bruising, adenopathy, other Allergies: Coded Allergies: No Known Allergies (Unverified , 08/15/19) Subjective 10/27 labs again refused this am, yesterday was low, chandrakant rn in icu 10/28 remains in icu, for 2units prbc this am, chandrakant rn, no other events 10/29 s/p prbc, tolerated it well, no bleeding, on 1mcg levo, in icu 10/30 on abx, on levo and overnight no other events, chandrakant rn oncology\ 10/31 wounds improved, labs noted, no bleeding, hgb lower, refusing care/wound care 11/01 labs noted, no bleeding, no hematochezia, no hemoptysis, cbc ordered Objective Objective Current Medications Medications (Trade) Dose Ordered Sig/Mya Route PRN Reason Start Time Stop Time Status Last Admin Dose Admin Acetaminophen (Tylenol) 650 mg Q4H PRN ORAL Mild Pain (Pain Scale 1-3) 10/31/19 23:00 11/30/19 22:59 Acetaminophen/ Hydrocodone Bitart ([place] 5/325) 1 tab Q4H PRN ORAL Moderate Pain (Pain Scale 4-6) 10/31/19 23:30 11/07/19 23:29 11/01/19 15:15 Acetaminophen/ Hydrocodone Bitart ([place] 5/325) 2 tab Q4H PRN ORAL Severe Pain (Pain Scale 7-10) 10/31/19 23:15 11/07/19 23:14 11/02/19 05:21 Ascorbic Acid (Vitamin C) 500 mg DAILY ORAL 11/01/19 09:00 11/23/19 08:59 11/01/19 08:37 Baclofen (Lioresal) 10 mg THREE TIMES A DAY ORAL 11/01/19 09:00 11/22/19 17:59 11/01/19 17:17 Chlorhexidine Gluconate (Simran-Hex 2%) 1 applic DAILY@1999 TOPIC 11/01/19 20:00 01/22/20 19:59 11/01/19 19:35 Clonazepam (KlonoPIN) 0.5 mg Q8H PRN ORAL For Anxiety 10/31/19 23:00 11/07/19 22:59 10/31/19 23:29 Desmopressin Acetate (Ddavp) 2 mcg EVERY 12 HOURS IV 11/01/19 09:00 01/29/20 11:59 11/01/19 20:28 Dextrose (Dextrose 50%) 25 ml Q30M PRN IV Hypoglycemia 10/31/19 23:00 01/21/20 17:29 Dextrose (Dextrose 50%) 50 ml Q30M PRN IV Hypoglycemia 10/31/19 23:00 01/21/20 17:29 Diphenhydramine HCl (Benadryl) 25 mg Q6H PRN ORAL Itching/Pruritis 10/31/19 23:30 11/22/19 17:29 Docusate Sodium (Colace) 100 mg EVERY 12 HOURS ORAL 11/01/19 09:00 11/22/19 20:59 11/01/19 08:37 Famotidine (Pepcid) 20 mg DAILY ORAL 11/01/19 09:00 01/28/20 09:29 11/01/19 08:37 Ferrous Sulfate (Feosol) 325 mg DAILY ORAL 11/01/19 09:00 01/22/20 08:59 11/01/19 08:37 Gabapentin (Neurontin) 400 mg Q8HR ORAL 11/01/19 06:00 11/22/19 21:59 11/02/19 05:20 Heparin Sodium (Porcine) (Heparin 5000 units/ml) 5,000 units EVERY 12 HOURS SUBQ 11/01/19 09:00 12/08/19 08:59 11/01/19 20:29 Meropenem 1 gm/ Sodium Chloride 100 ml @ 200 mls/hr Q8H IVPB 11/01/19 02:00 11/03/19 17:59 11/02/19 01:32 Midodrine (Pro-Amatine) 10 mg EVERY 8 HOURS ORAL 11/01/19 06:00 01/21/20 17:59 11/02/19 05:20 Ondansetron HCl (Zofran) 4 mg Q6H PRN IVP Nausea & Vomiting 10/31/19 23:30 11/22/19 17:29 Sodium Hypochlorite ([place]'s Quarter Strength) 1 applic DAILY TOPIC 11/01/19 09:00 11/24/19 08:59 11/01/19 08:37 Sodium Chloride 1,000 ml @ 75 mls/hr [id number] IV 11/01/19 22:45 11/25/19 11:26 11/01/19 22:44 Vancomycin HCl (Vanco pharmacy to dose) 1 ea DAILY PRN MISC Per rx protocol 11/01/19 09:00 11/28/19 16:14 Vancomycin HCl 1 gm/Dextrose 275 ml @ 183.708 mls/hr Q12H IVPB 11/01/19 08:00 11/03/19 19:59 11/01/19 19:35 Zinc Sulfate (Zinc Sulfate) 220 mg DAILY ORAL 11/01/19 09:00 01/22/20 08:59 11/01/19 08:37 Last 24 Hour Vital Signs Date Time Temp Pulse Resp B/P (MAP) Pulse Ox O2 Delivery O2 Flow Rate FiO2 11/02/19 04:00 60 11/02/19 04:00 Room Air Room Air 11/02/19 04:00 98.1 61 16 103/59 (74) 97 11/02/19 00:00 99.0 78 16 122/65 (84) 97 11/02/19 00:00 74 11/02/19 00:00 Room Air Room Air 11/01/19 20:00 Room Air Room Air 11/01/19 20:00 78 11/01/19 20:00 97.6 78 16 113/59 (77) 98 11/01/19 16:00 98.8 65 22 105/61 (76) 98 11/01/19 16:00 76 11/01/19 16:00 Room Air 11/01/19 12:00 98.4 74 21 127/68 (87) 97 11/01/19 12:00 75 11/01/19 12:00 Room Air 11/01/19 08:00 97.0 62 22 120/69 (86) 96 11/01/19 08:00 Room Air 11/01/19 07:56 65 11/01/19 04:00 97.5 58 16 98/56 (70) 98 11/01/19 04:00 Room Air 11/01/19 03:59 63 11/01/19 00:44 Room Air 11/01/19 00:00 98.6 76 16 122/71 (88) 97 10/31/19 23:33 81 10/31/19 22:00 73 15 92/59 (70) 98 10/31/19 21:00 74 15 104/60 (75) 97 10/31/19 21:00 104/50 10/31/19 20:00 Room Air 10/31/19 20:00 74 10/31/19 20:00 98.6 76 10 95/59 (71) 97 10/31/19 19:00 80 20 97/56 (70) 97 10/31/19 18:00 87 18 92/54 (67) 96 10/31/19 17:00 82 16 90/50 (63) 96 10/31/19 16:00 Room Air 10/31/19 16:00 71 10/31/19 16:00 75 14 90/58 (69) 96 10/31/19 15:00 65 14 87/46 (60) 95 10/31/19 14:00 76 17 102/76 (85) 91 10/31/19 13:30 69 11 96/44 (61) 97 10/31/19 13:00 72 11 96/53 (67) 98 10/31/19 12:30 76 13 97/51 (66) 97 10/31/19 12:00 Room Air 10/31/19 12:00 98.4 73 13 103/72 (82) 97 10/31/19 12:00 68 10/31/19 11:30 73 12 92/56 (68) 96 10/31/19 11:00 73 12 98/49 (65) 94 10/31/19 10:30 75 13 92/57 (69) 97 10/31/19 10:00 74 13 99/58 (72) 97 10/31/19 09:30 76 13 91/60 (70) 96 10/31/19 09:00 78 14 97/63 (74) 96 10/31/19 08:30 83 13 94/61 (72) 95 10/31/19 08:00 Room Air 10/31/19 08:00 83 10/31/19 08:00 98.5 14 106/59 (75) 98 10/31/19 07:30 80 14 103/61 (75) 97 10/31/19 07:00 85 16 96/62 (73) 94 Intake and Output 11/01/19 11/02/19 19:00 07:00 Intake Total 2822.500 ml 2127.500 ml Output Total 1400 ml 2020 ml Balance 1422.500 ml 107.500 ml Intake Oral 600 ml 650 ml IV Total 2222.500 ml 1477.500 ml Output Urine Total 1400 ml 2000 ml Stool Total 20 ml # Bowel Movements 4 4 Labs Test 10/31/19 06:52 11/01/19 03:30 White Blood Count 11.9 K/UL (4.8-10.8) 6.3 K/UL (4.8-10.8) Red Blood Count 3.56 M/UL (4.70-6.10) 3.07 M/UL (4.70-6.10) Hemoglobin 9.5 G/DL (14.2-18.0) 8.3 G/DL (14.2-18.0) Hematocrit 29.7 % (42.0-52.0) 26.1 % (42.0-52.0) Mean Corpuscular Volume 83 FL (80-99) 85 FL (80-99) Mean Corpuscular Hemoglobin 26.7 PG (27.0-31.0) 26.9 PG (27.0-31.0) Mean Corpuscular Hemoglobin Concent 32.1 G/DL (32.0-36.0) 31.7 G/DL (32.0-36.0) Red Cell Distribution Width 17.5 % (11.6-14.8) 18.1 % (11.6-14.8) Platelet Count 430 K/UL (150-450) 381 K/UL (150-450) Mean Platelet Volume 4.7 FL (6.5-10.1) 4.5 FL (6.5-10.1) Neutrophils (%) (Auto) 73.5 % (45.0-75.0) 48.9 % (45.0-75.0) Lymphocytes (%) (Auto) 14.3 % (20.0-45.0) 38.4 % (20.0-45.0) Monocytes (%) (Auto) 8.5 % (1.0-10.0) 6.9 % (1.0-10.0) Eosinophils (%) (Auto) 2.7 % (0.0-3.0) 4.7 % (0.0-3.0) Basophils (%) (Auto) 1.0 % (0.0-2.0) 1.1 % (0.0-2.0) Sodium Level 136 MMOL/L (136-145) 136 MMOL/L (136-145) Potassium Level 4.0 MMOL/L (3.5-5.1) 3.7 MMOL/L (3.5-5.1) Chloride Level 100 MMOL/L (98-107) 104 MMOL/L (98-107) Carbon Dioxide Level 25 MMOL/L (21-32) 25 MMOL/L (21-32) Anion Gap 11 mmol/L (5-15) 8 mmol/L (5-15) Blood Urea Nitrogen 13 mg/dL (7-18) 13 mg/dL (7-18) Creatinine 0.6 MG/DL (0.55-1.30) 0.6 MG/DL (0.55-1.30) Estimat Glomerular Filtration Rate > 60 mL/min (>60) > 60 mL/min (>60) Glucose Level 122 MG/DL (74-106) 85 MG/DL (74-106) Calcium Level 8.4 MG/DL (8.5-10.1) 8.5 MG/DL (8.5-10.1) Phosphorus Level 3.0 MG/DL (2.5-4.9) Magnesium Level 1.7 MG/DL (1.8-2.4) Vancomycin Level Trough 16.8 ug/mL (5.0-12.0) Total Bilirubin 0.3 MG/DL (0.2-1.0) Aspartate Amino Transf (AST/SGOT) 16 U/L (15-37) Alanine Aminotransferase (ALT/SGPT) 19 U/L (12-78) Alkaline Phosphatase 153 U/L (46-116) Total Protein 6.2 G/DL (6.4-8.2) Albumin 1.5 G/DL (3.4-5.0) Globulin 4.7 g/dL Albumin/Globulin Ratio 0.3 (1.0-2.7) Height (Feet): 5 Height (Inches): 7.00 Weight (Pounds): 114 Objective Physical Exam General Appearance: lethargic Lines, tubes and drains: peripheral, central line HEENT: normocephalic Neck: non-tender, normal alignment Respiratory/Chest: lungs clear Cardiovascular/Chest: normal peripheral pulses, normal rate, regular rhythm Abdomen: normal bowel sounds, non tender Martínez Capps MD Nov 02, 2019 06:54
[2019-11-02 08:00] VITALS: BP 126/58
[2019-11-02] MEDS: Vancomycin 1 GM in D5W 275 ML IVPB SCH ×2 (08:10→20:51)
[2019-11-02] MEDS: Ascorbic Acid 500mg tab ORAL SCH (09:56)
[2019-11-02] MEDS: Docusate 100mg cap ORAL SCH ×2 (09:56→21:00)
[2019-11-02] MEDS: Zinc Sulfate 220mg ORAL SCH (09:57)
[2019-11-02] MEDS: Heparin 5000 units/ml inj SUBQ SCH ×2 (09:58→21:05)
[2019-11-02] MEDS: Desmopressin (DDAVP) Inj IV SCH ×2 (09:59→21:02)
[2019-11-02] MEDS: Dakin's 0.125% Soln (Quarter Strength) 16oz TOPIC SCH (09:59)
--- NOTE | 2019-11-02 11:27 | General Progress Note ---
Assessment/Plan Problem List: (1) Anemia ICD Codes: D64.9 - Anemia, unspecified SNOMED: 197793497 (2) Encephalopathy ICD Codes: G93.40 - Encephalopathy, unspecified SNOMED: 96070242 (3) Drug (multiple) resistant infection SNOMED: 82387443, 51458700116083 (4) Urinary tract infection in male ICD Codes: N39.0 - Urinary tract infection, site not specified SNOMED: 50137498, 628381931 (5) Hypokalemia ICD Codes: E87.6 - Hypokalemia SNOMED: 78731415 (6) Femur fracture ICD Codes: S72.90XA - Unspecified fracture of unspecified femur, initial encounter for closed fracture SNOMED: 47407473 (7) Hyponatremia ICD Codes: E87.1 - Hypo-osmolality and hyponatremia SNOMED: 60577397 (8) Sepsis ICD Codes: A41.9 - Sepsis, unspecified organism SNOMED: 05457420 (9) UTI (urinary tract infection) ICD Codes: N39.0 - Urinary tract infection, site not specified SNOMED: 81281234 (10) Hypotension ICD Codes: I95.9 - Hypotension, unspecified SNOMED: 22046079 (11) Decubital ulcer ICD Codes: L89.90 - Pressure ulcer of unspecified site, unspecified stage SNOMED: 586044867 (12) SEAN (acute kidney injury) ICD Codes: N17.9 - Acute kidney failure, unspecified SNOMED: 7946128, 24156533 Status: stable Assessment/Plan: 59 year old man who presents from [facility] with weakness, encephalopathy, concern for septic shock, possible from UTI vs infected sacral pressure ulcer #Septic shock- improving #Proteus UTI #Acute metabolic encephalopathy -improving #Paraplegia #Sacral pressure ulcer, present on admit -DC planning -Off vasopressors -off amikacin, continue meropenem and vancomycin -Spoke with surgery, sacral pressure ulcer does not appear to be infected -Local wound care and offloading #Sinus Bradycardia - resolved -continue telemetry -EP following #Hyponatremia #Hypokalemia -improving -refusing labs sometime -Replete when necessary -On DDAVP #Anemia, acute on chronic -2 units RBC 10/28 -Hematology following VTE PPx HSQ Full Code I spent 35 minutes on this patient's case, and 21 mins was dedicated to counseling and care coordination. Discussed with all consultants, Charge nurse and RNs. Subjective Date patient seen: Nov 02, 2019 ROS Limited/Unobtainable: Yes Constitutional: Denies: fever, malaise, weakness HEENT: Denies: blurred vision, ear discharge, nose pain Cardiovascular: Denies: edema, lightheadedness, palpitations Respiratory: Denies: shortness of breath, SOB with excertion Gastrointestinal/Abdominal: Denies: abdominal pain, black stools, tarry stools , blood in stool Genitourinary: Denies: discharge, frequency, hematuria, incontinence Neurologic/Psychiatric: Reports: depressed; Denies: emotional problems, headache, numbness Endocrine: Denies: excessive sweating Allergies: Coded Allergies: No Known Allergies (Unverified , 08/15/19) Subjective He sates he feels fine. In no pain. Objective Last 24 Hour Vital Signs Date Time Temp Pulse Resp B/P (MAP) Pulse Ox O2 Delivery O2 Flow Rate FiO2 11/02/19 08:00 97.9 61 20 126/58 (80) 97 11/02/19 08:00 Room Air Room Air 11/02/19 04:00 60 11/02/19 04:00 Room Air Room Air 11/02/19 04:00 98.1 61 16 103/59 (74) 97 11/02/19 00:00 99.0 78 16 122/65 (84) 97 11/02/19 00:00 74 11/02/19 00:00 Room Air Room Air 11/01/19 20:00 Room Air Room Air 11/01/19 20:00 78 11/01/19 20:00 97.6 78 16 113/59 (77) 98 11/01/19 16:00 98.8 65 22 105/61 (76) 98 11/01/19 16:00 76 11/01/19 16:00 Room Air 11/01/19 12:00 98.4 74 21 127/68 (87) 97 11/01/19 12:00 75 11/01/19 12:00 Room Air Intake and Output 11/01/19 11/02/19 19:00 07:00 Intake Total 2822.500 ml 2202.500 ml Output Total 1400 ml 2020 ml Balance 1422.500 ml 182.500 ml Intake Oral 600 ml 650 ml IV Total 2222.500 ml 1552.500 ml Output Urine Total 1400 ml 2000 ml Stool Total 20 ml # Bowel Movements 4 4 Height (Feet): 5 Height (Inches): 7.00 Weight (Pounds): 114 General Appearance: no apparent distress, alert, confused EENT: normal ENT inspection, TMs normal Neck: non-tender, normal alignment, supple Cardiovascular: normal peripheral pulses, normal rate, regular rhythm, no gallop/murmur, no JVD Respiratory/Chest: lungs clear, normal breath sounds, no respiratory distress, no accessory muscle use Abdomen: non tender, soft, no organomegaly, no mass Pelvis: normal external exam Extremities: normal range of motion, non-tender Edema: no edema noted Arm (L), no edema noted Arm (R), no edema noted Leg (L), no edema noted Leg (R), no edema noted Pedal (L), no edema noted Pedal (R), no edema noted Generalized Neurologic: alert, responsive, normal mood/affect, motor weakness Skin: normal pigmentation, warm/dry, no diaphoresis Art Hensley M.D. Nov 02, 2019 11:27
[2019-11-02 12:00] VITALS: BP 119/68
--- NOTE | 2019-11-02 13:14 | Pulmonology Progress Note ---
Subjective ROS Limited/Unobtainable: Yes Interval Events: Looking better Constitutional: Reports: fatigue HEENT: Repors: no symptoms Respiratory: Reports: no symptoms Cardiovascular: Reports: no symptoms Gastrointestinal/Abdominal: Denies: nausea, vomiting, diarrhea Genitourinary: Reports: no symptoms Psychiatric: Denies: depression Skin: Denies: rash Musculoskeletal: Denies: pain Allergies: Coded Allergies: No Known Allergies (Unverified , 08/15/19) All Systems: reviewed and negative except above Objective Last 24 Hour Vital Signs Date Time Temp Pulse Resp B/P (MAP) Pulse Ox O2 Delivery O2 Flow Rate FiO2 11/02/19 11:54 70 11/02/19 08:00 97.9 61 20 126/58 (80) 97 11/02/19 08:00 Room Air Room Air 11/02/19 07:52 69 11/02/19 04:00 60 11/02/19 04:00 Room Air Room Air 11/02/19 04:00 98.1 61 16 103/59 (74) 97 11/02/19 00:00 99.0 78 16 122/65 (84) 97 11/02/19 00:00 74 11/02/19 00:00 Room Air Room Air 11/01/19 20:00 Room Air Room Air 11/01/19 20:00 78 11/01/19 20:00 97.6 78 16 113/59 (77) 98 11/01/19 16:00 98.8 65 22 105/61 (76) 98 11/01/19 16:00 76 11/01/19 16:00 Room Air Intake and Output 11/01/19 11/02/19 19:00 07:00 Intake Total 2822.500 ml 2202.500 ml Output Total 1400 ml 2020 ml Balance 1422.500 ml 182.500 ml Intake Oral 600 ml 650 ml IV Total 2222.500 ml 1552.500 ml Output Urine Total 1400 ml 2000 ml Stool Total 20 ml # Bowel Movements 4 4 General Appearance: no acute distress HEENT: normocephalic Respiratory: chest wall non-tender, lungs clear Cardiovascular: normal peripheral pulses, regular rhythm Abdomen: normal bowel sounds Extremities: no cyanosis Current Medications Medications (Trade) Dose Ordered Sig/Mya Route PRN Reason Start Time Stop Time Status Last Admin Dose Admin Acetaminophen (Tylenol) 650 mg Q4H PRN ORAL Mild Pain (Pain Scale 1-3) 10/31/19 23:00 11/30/19 22:59 Acetaminophen/ Hydrocodone Bitart ([place] 5/325) 1 tab Q4H PRN ORAL Moderate Pain (Pain Scale 4-6) 10/31/19 23:30 11/07/19 23:29 11/02/19 13:03 Acetaminophen/ Hydrocodone Bitart ([place] 5/325) 2 tab Q4H PRN ORAL Severe Pain (Pain Scale 7-10) 10/31/19 23:15 11/07/19 23:14 11/02/19 05:21 Ascorbic Acid (Vitamin C) 500 mg DAILY ORAL 11/01/19 09:00 11/23/19 08:59 11/02/19 09:56 Baclofen (Lioresal) 10 mg THREE TIMES A DAY ORAL 11/01/19 09:00 11/22/19 17:59 11/02/19 13:04 Chlorhexidine Gluconate (Simran-Hex 2%) 1 applic DAILY@1999 [facility] 11/01/19 20:00 01/22/20 19:59 11/01/19 19:35 Clonazepam (KlonoPIN) 0.5 mg Q8H PRN ORAL For Anxiety 10/31/19 23:00 11/07/19 22:59 10/31/19 23:29 Desmopressin Acetate (Ddavp) 2 mcg EVERY 12 HOURS IV 11/01/19 09:00 01/29/20 11:59 11/02/19 09:59 Dextrose (Dextrose 50%) 25 ml Q30M PRN IV Hypoglycemia 10/31/19 23:00 01/21/20 17:29 Dextrose (Dextrose 50%) 50 ml Q30M PRN IV Hypoglycemia 10/31/19 23:00 01/21/20 17:29 Diphenhydramine HCl (Benadryl) 25 mg Q6H PRN ORAL Itching/Pruritis 10/31/19 23:30 11/22/19 17:29 Docusate Sodium (Colace) 100 mg EVERY 12 HOURS ORAL 11/01/19 09:00 11/22/19 20:59 11/02/19 09:56 Famotidine (Pepcid) 20 mg DAILY ORAL 11/01/19 09:00 01/28/20 09:29 11/02/19 09:56 Ferrous Sulfate (Feosol) 325 mg DAILY ORAL 11/01/19 09:00 01/22/20 08:59 11/02/19 09:56 Gabapentin (Neurontin) 400 mg Q8HR ORAL 11/01/19 06:00 11/22/19 21:59 11/02/19 05:20 Heparin Sodium (Porcine) (Heparin 5000 units/ml) 5,000 units EVERY 12 HOURS SUBQ 11/01/19 09:00 12/08/19 08:59 11/02/19 09:58 Meropenem 1 gm/ Sodium Chloride 100 ml @ 200 mls/hr Q8H IVPB 11/01/19 02:00 11/03/19 17:59 11/02/19 13:04 Midodrine (Pro-Amatine) 10 mg EVERY 8 HOURS ORAL 11/01/19 06:00 01/21/20 17:59 11/02/19 05:20 Ondansetron HCl (Zofran) 4 mg Q6H PRN IVP Nausea & Vomiting 10/31/19 23:30 11/22/19 17:29 Sodium Hypochlorite ([place] Quarter Strength) 1 applic DAILY TOPIC 11/01/19 09:00 11/24/19 08:59 11/02/19 09:59 Sodium Chloride 1,000 ml @ 75 mls/hr [id number] IV 11/01/19 22:45 11/25/19 11:26 11/02/19 13:04 Vancomycin HCl (Vanco pharmacy to dose) 1 ea DAILY PRN MISC Per rx protocol 11/01/19 09:00 11/28/19 16:14 Vancomycin HCl 1 gm/Dextrose 275 ml @ 183.708 mls/hr Q12H IVPB 11/01/19 08:00 11/03/19 19:59 11/02/19 08:10 Zinc Sulfate (Zinc Sulfate) 220 mg DAILY ORAL 11/01/19 09:00 01/22/20 08:59 11/02/19 09:57 Assessment/Plan Assessment/Plan IMPRESSION: 1. Septic shock. resolved 2. Complicated UTI with history of previous ESBL infection. 3. Paraplegia. 4. Sacral decubitus. 5. skilled nursing resident. DISCUSSION: DVT and GI prophylaxes. ID consult and follow-up noted. I will follow carefully. continue Oxygen, doing well on room air at this time. Haily Monzon Omar Syed MD Nov 02, 2019 13:14
[2019-11-02] MEDS ORDERED: Tubing IV Secondary IV ONE (13:47)
[2019-11-02] MEDS ORDERED: NS 275ml ONE (13:47)
--- NOTE | 2019-11-02 14:40 | Infectious Diseases Prog Note ---
Assessment/Plan Assessment/Plan ASSESSMENT AND PLAN: 1. sepsis, shock, proteus uti, esbl e.coli uti, possible aspiration pna/hcap vs cap, sacral wound - ? infected, mrsa and vre colonization - meropenem and vancomycin, day # 10/14 antibiotics - monitor labs and chest x-ray - clinically improved, chest x-ray improved - off pressors now 2. ICU care. 3. Sacral wound -wound mostly clean, management per surgery 4. Ostomy malfunction - per surgery 5. Hypertension. 6. Paraplegia. 7. Anemia. 8. History of decubitus ulcer, rule out infection. Infectious diseases is following. The patient on antibiotics. 9. Hypertension treatment per primary care team. 10. Continue treatment per primary consultants. 11. No known drug allergies. 12. Social history is negative. 13. Family history is noncontributory. 14. MAR was noted. 15. Case discussed with RN. Subjective Constitutional: Denies: fever HEENT: Denies: congestion Respiratory: Denies: shortness of breath Cardiovascular: Denies: chest pain Gastrointestinal/Abdominal: Denies: nausea, vomiting, diarrhea Genitourinary: Reports: other - + donohue Neurologic: Denies: headache Psychiatric: Denies: depression Skin: Denies: rash Hematologic: Denies: bleeding Musculoskeletal: Denies: pain Allergies: Coded Allergies: No Known Allergies (Unverified , 08/15/19) Objective Last 24 Hour Vital Signs Date Time Temp Pulse Resp B/P (MAP) Pulse Ox O2 Delivery O2 Flow Rate FiO2 11/02/19 13:33 97.9 11/02/19 12:00 Room Air Room Air 11/02/19 11:54 70 11/02/19 08:00 97.9 61 20 126/58 (80) 97 11/02/19 08:00 Room Air Room Air 11/02/19 07:52 69 11/02/19 04:00 60 11/02/19 04:00 Room Air Room Air 11/02/19 04:00 98.1 61 16 103/59 (74) 97 11/02/19 00:00 99.0 78 16 122/65 (84) 97 11/02/19 00:00 74 11/02/19 00:00 Room Air Room Air 11/01/19 20:00 Room Air Room Air 11/01/19 20:00 78 11/01/19 20:00 97.6 78 16 113/59 (77) 98 11/01/19 16:00 98.8 65 22 105/61 (76) 98 11/01/19 16:00 76 11/01/19 16:00 Room Air Height (Feet): 5 Height (Inches): 7.00 Weight (Pounds): 114 General Appearance: no acute distress HEENT: normocephalic, atraumatic, anicteric, mucous membranes moist Respiratory/Chest: lungs clear, normal breath sounds, no respiratory distress, no accessory muscle use Cardiovascular: normal rate, regular rhythm, no gallop/murmur, no JVD Abdomen: normal bowel sounds, soft, non tender, no organomegaly, non distended Genitourinary: other - + donohue - urine clear Extremities: no cyanosis Skin: no rash 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 There is some atelectasis at the left lung base as well. Right jugular central venous catheter remains. The heart size is normal. Impression: New/increased bilateral basilar infiltrates, since prior study 2019 Chest x-ray - 10/27/19 - Procedure: XRAY Chest 1v Indication: Shortness of breath Technique: One view of the chest Comparison: 10/25/2019 Findings: There is atelectasis possibly some focal consolidation at the right lung base. Atelectatic changes previously demonstrated at the left lung base have largely cleared. Right jugular central venous catheter remains. The heart size is normal. Impression: Improving left basilar atelectasis. 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 No new consolidation is seen. Pleural space: Unremarkable. The costophrenic angles are sharp. No visible pneumothorax. Heart: Unremarkable. No cardiomegaly. Mediastinum: Unremarkable. Bones/joints: Unremarkable. Vasculature: Mild atherosclerotic calcifications are noted within the aortic arch. Tubes, lines and devices: Stable positioning of a right IJ central venous catheter with the tip in the SVC. Telemetry leads overlie the thorax. IMPRESSION: Persistent subsegmental atelectasis in bilateral lower lungs, not significantly changed compared to the prior exam. Microbiology Date/Time Source Procedure Growth Status 10/23/19 15:30 Blood Blood Culture - Final NO GROWTH AFTER 5 DAYS Complete 11/02/19 13:30 Nasopharynx SARS-CoV-2 RdRp Gene Assay - Final Complete 10/23/19 15:13 Urine,Clean Catch Urine Culture - Final Proteus Mirabilis Escherichia Coli - Esbl Complete 10/23/19 18:55 Rectum - Final NO CARBAPENEM-RESISTANT ENTEROBACTERI... Complete Microbiology Date/Time Source Procedure Growth Status 11/02/19 13:30 Nasopharynx SARS-CoV-2 RdRp Gene Assay - Final Complete Labs Test 10/31/19 06:52 11/01/19 03:30 White Blood Count 11.9 K/UL (4.8-10.8) 6.3 K/UL (4.8-10.8) Red Blood Count 3.56 M/UL (4.70-6.10) 3.07 M/UL (4.70-6.10) Hemoglobin 9.5 G/DL (14.2-18.0) 8.3 G/DL (14.2-18.0) Hematocrit 29.7 % (42.0-52.0) 26.1 % (42.0-52.0) Mean Corpuscular Volume 83 FL (80-99) 85 FL (80-99) Mean Corpuscular Hemoglobin 26.7 PG (27.0-31.0) 26.9 PG (27.0-31.0) Mean Corpuscular Hemoglobin Concent 32.1 G/DL (32.0-36.0) 31.7 G/DL (32.0-36.0) Red Cell Distribution Width 17.5 % (11.6-14.8) 18.1 % (11.6-14.8) Platelet Count 430 K/UL (150-450) 381 K/UL (150-450) Mean Platelet Volume 4.7 FL (6.5-10.1) 4.5 FL (6.5-10.1) Neutrophils (%) (Auto) 73.5 % (45.0-75.0) 48.9 % (45.0-75.0) Lymphocytes (%) (Auto) 14.3 % (20.0-45.0) 38.4 % (20.0-45.0) Monocytes (%) (Auto) 8.5 % (1.0-10.0) 6.9 % (1.0-10.0) Eosinophils (%) (Auto) 2.7 % (0.0-3.0) 4.7 % (0.0-3.0) Basophils (%) (Auto) 1.0 % (0.0-2.0) 1.1 % (0.0-2.0) Sodium Level 136 MMOL/L (136-145) 136 MMOL/L (136-145) Potassium Level 4.0 MMOL/L (3.5-5.1) 3.7 MMOL/L (3.5-5.1) Chloride Level 100 MMOL/L (98-107) 104 MMOL/L (98-107) Carbon Dioxide Level 25 MMOL/L (21-32) 25 MMOL/L (21-32) Anion Gap 11 mmol/L (5-15) 8 mmol/L (5-15) Blood Urea Nitrogen 13 mg/dL (7-18) 13 mg/dL (7-18) Creatinine 0.6 MG/DL (0.55-1.30) 0.6 MG/DL (0.55-1.30) Estimat Glomerular Filtration Rate > 60 mL/min (>60) > 60 mL/min (>60) Glucose Level 122 MG/DL (74-106) 85 MG/DL (74-106) Calcium Level 8.4 MG/DL (8.5-10.1) 8.5 MG/DL (8.5-10.1) Phosphorus Level 3.0 MG/DL (2.5-4.9) Magnesium Level 1.7 MG/DL (1.8-2.4) Vancomycin Level Trough 16.8 ug/mL (5.0-12.0) Total Bilirubin 0.3 MG/DL (0.2-1.0) Aspartate Amino Transf (AST/SGOT) 16 U/L (15-37) Alanine Aminotransferase (ALT/SGPT) 19 U/L (12-78) Alkaline Phosphatase 153 U/L (46-116) Total Protein 6.2 G/DL (6.4-8.2) Albumin 1.5 G/DL (3.4-5.0) Globulin 4.7 g/dL Albumin/Globulin Ratio 0.3 (1.0-2.7) Current Medications Medications (Trade) Dose Ordered Sig/Mya Route PRN Reason Start Time Stop Time Status Last Admin Dose Admin Acetaminophen (Tylenol) 650 mg Q4H PRN ORAL Mild Pain (Pain Scale 1-3) 10/31/19 23:00 11/30/19 22:59 Acetaminophen/ Hydrocodone Bitart ([place] 5/325) 1 tab Q4H PRN ORAL Moderate Pain (Pain Scale 4-6) 10/31/19 23:30 11/07/19 23:29 11/02/19 13:03 Acetaminophen/ Hydrocodone Bitart ([place] 5/325) 2 tab Q4H PRN ORAL Severe Pain (Pain Scale 7-10) 10/31/19 23:15 11/07/19 23:14 11/02/19 05:21 Ascorbic Acid (Vitamin C) 500 mg DAILY ORAL 11/01/19 09:00 11/23/19 08:59 11/02/19 09:56 Baclofen (Lioresal) 10 mg THREE TIMES A DAY ORAL 11/01/19 09:00 11/22/19 17:59 11/02/19 13:04 Chlorhexidine Gluconate (Simran-Hex 2%) 1 applic DAILY@1999 TOPIC 11/01/19 20:00 01/22/20 19:59 11/01/19 19:35 Clonazepam (KlonoPIN) 0.5 mg Q8H PRN ORAL For Anxiety 10/31/19 23:00 11/07/19 22:59 10/31/19 23:29 Desmopressin Acetate (Ddavp) 2 mcg EVERY 12 HOURS IV 11/01/19 09:00 01/29/20 11:59 11/02/19 09:59 Dextrose (Dextrose 50%) 25 ml Q30M PRN IV Hypoglycemia 10/31/19 23:00 01/21/20 17:29 Dextrose (Dextrose 50%) 50 ml Q30M PRN IV Hypoglycemia 10/31/19 23:00 01/21/20 17:29 Diphenhydramine HCl (Benadryl) 25 mg Q6H PRN ORAL Itching/Pruritis 10/31/19 23:30 11/22/19 17:29 Docusate Sodium (Colace) 100 mg EVERY 12 HOURS ORAL 11/01/19 09:00 11/22/19 20:59 11/02/19 09:56 Famotidine (Pepcid) 20 mg DAILY ORAL 11/01/19 09:00 01/28/20 09:29 11/02/19 09:56 Ferrous Sulfate (Feosol) 325 mg DAILY ORAL 11/01/19 09:00 01/22/20 08:59 11/02/19 09:56 Gabapentin (Neurontin) 400 mg Q8HR ORAL 11/01/19 06:00 11/22/19 21:59 11/02/19 13:39 Heparin Sodium (Porcine) (Heparin 5000 units/ml) 5,000 units EVERY 12 HOURS SUBQ 11/01/19 09:00 12/08/19 08:59 11/02/19 09:58 Meropenem 1 gm/ Sodium Chloride 100 ml @ 200 mls/hr Q8H IVPB 11/01/19 02:00 11/03/19 17:59 11/02/19 13:04 Midodrine (Pro-Amatine) 10 mg EVERY 8 HOURS ORAL 11/01/19 06:00 01/21/20 17:59 11/02/19 13:38 Ondansetron HCl (Zofran) 4 mg Q6H PRN IVP Nausea & Vomiting 10/31/19 23:30 11/22/19 17:29 Sodium Hypochlorite (Dakin's Quarter Strength) 1 applic DAILY TOPIC 11/01/19 09:00 11/24/19 08:59 11/02/19 09:59 Sodium Chloride 1,000 ml @ 75 mls/hr [id number] IV 11/01/19 22:45 11/25/19 11:26 11/02/19 13:04 Vancomycin HCl (Vanco pharmacy to dose) 1 ea DAILY PRN MISC Per rx protocol 11/01/19 09:00 11/28/19 16:14 Vancomycin HCl 1 gm/Dextrose 275 ml @ 183.708 mls/hr Q12H IVPB 11/01/19 08:00 11/03/19 19:59 11/02/19 08:10 Zinc Sulfate (Zinc Sulfate) 220 mg DAILY ORAL 11/01/19 09:00 01/22/20 08:59 11/02/19 09:57 Sharif Painting MD Nov 02, 2019 14:40
[2019-11-02 16:00] VITALS: BP 121/69
--- NOTE | 2019-11-02 16:12 | Cardiac Electrophysiology PN ---
Assessment/Plan Assessment/Plan 1. S/P Septic shock. Off Levophed. On Midodrine and IV antibiotic and iv fluid 2. Bradycardia. Resolved. 3. Paraplegia. 4. Urinary tract infection, on broad-spectrum IV antibiotic. 5. Decubitus ulcers with sacral decubitus. 6. S/P Ileostomy/ 7. Polyuria, DI. On NS and DDAVP. KAMI RN Subjective Subjective Alert in NAD out of ICU. Off pressors. DC to SNIF pending Objective Last 24 Hour Vital Signs Date Time Temp Pulse Resp B/P (MAP) Pulse Ox O2 Delivery O2 Flow Rate FiO2 11/02/19 13:33 97.9 11/02/19 12:00 Room Air Room Air 11/02/19 11:54 70 11/02/19 08:00 97.9 61 20 126/58 (80) 97 11/02/19 08:00 Room Air Room Air 11/02/19 07:52 69 11/02/19 04:00 60 11/02/19 04:00 Room Air Room Air 11/02/19 04:00 98.1 61 16 103/59 (74) 97 11/02/19 00:00 99.0 78 16 122/65 (84) 97 11/02/19 00:00 74 11/02/19 00:00 Room Air Room Air 11/01/19 20:00 Room Air Room Air 11/01/19 20:00 78 11/01/19 20:00 97.6 78 16 113/59 (77) 98 Intake and Output 11/01/19 11/02/19 19:00 07:00 Intake Total 2822.500 ml 2202.500 ml Output Total 1400 ml 2020 ml Balance 1422.500 ml 182.500 ml Intake Oral 600 ml 650 ml IV Total 2222.500 ml 1552.500 ml Output Urine Total 1400 ml 2000 ml Stool Total 20 ml # Bowel Movements 4 4 Microbiology Date/Time Source Procedure Growth Status 11/02/19 13:30 Nasopharynx SARS-CoV-2 RdRp Gene Assay - Final Complete Objective HEAD AND NECK: No JVD. Right IJ central line. LUNGS: Coarse rhonchi. CARDIOVASCULAR: Regular S1 and S2 with no gallop. ABDOMEN: Soft.S/P Ileostomy EXTREMITIES: No pitting edema, however, has pressure ulcers. Carloz Estes MD Nov 02, 2019 16:12
--- NOTE | 2019-11-02 16:17 | Surgery Progress Note ---
Surgery Progress Note Subjective Additional Comments leukocytosis improved labs noted exam stable comfortable no n/v/f/c Objective Last 24 Hour Vital Signs Date Time Temp Pulse Resp B/P (MAP) Pulse Ox O2 Delivery O2 Flow Rate FiO2 11/02/19 13:33 97.9 11/02/19 12:00 Room Air Room Air 11/02/19 11:54 70 11/02/19 08:00 97.9 61 20 126/58 (80) 97 11/02/19 08:00 Room Air Room Air 11/02/19 07:52 69 11/02/19 04:00 60 11/02/19 04:00 Room Air Room Air 11/02/19 04:00 98.1 61 16 103/59 (74) 97 11/02/19 00:00 99.0 78 16 122/65 (84) 97 11/02/19 00:00 74 11/02/19 00:00 Room Air Room Air 11/01/19 20:00 Room Air Room Air 11/01/19 20:00 78 11/01/19 20:00 97.6 78 16 113/59 (77) 98 I&O Intake and Output 11/01/19 11/02/19 19:00 07:00 Intake Total 2822.500 ml 2202.500 ml Output Total 1400 ml 2020 ml Balance 1422.500 ml 182.500 ml Intake Oral 600 ml 650 ml IV Total 2222.500 ml 1552.500 ml Output Urine Total 1400 ml 2000 ml Stool Total 20 ml # Bowel Movements 4 4 Dressing: other Wound: other Cardiovascular: RSR Respiratory: decreased breath sounds Abdomen: soft, non-tender, present bowel sounds Extremities: no tenderness, no cyanosis Plan Problems: (1) Abdominal distension Assessment & Plan: abd distention soft non tender ostomy viable and reduced KUB ordered pending results improved comfortable no complaints okay for diet s tolerated There is an inferior vena cava filter in place. Bowel gas pattern is unremarkable. Considerable stool is seen in the transverse and distal colon. There is extensive pelvic deformity, with loss of the left femoral head, chronic dislocation of the left femur, and extensive pelvic deformity, particularly on the left. Adi project over the upper pelvis Impression: Possible constipation. 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 [place] Shaped, Full Thickness Sacral Pressure Injury which extends into L ischium. (L)15.4cm x (W)18cm x (D)2.4cm, Undermining clockwise 10-2 by 7.7cm @ 11o'clock. Base of wound is moist,pink with scattered slough at base of wound. Bone is palpable at the Base. No odor or exudate noted. Scattered partial thickness wounds and Serous filled blisters noted to R trochanteric /R Hip areas. Historical scar noted to L groin, L Hip L Buttocks. Bony protrusion noted at L Hip. Full thickness Pressure Injury R Ischium(L)5.4cm x(W)6.9cm x (D)1.8cm, Undermining clockwise 1-4 by 2.7cm @2o'clock, Tunneling@7o'clock 2.9cm. Base of wound is moist pink with scattered slough. Scattered slough noted along borders. NO odor or exudate noted. Stable dry eschar noted to medial R knee 0.7cm x (W)0.4cm. Periwound is erythematous and indurated. No elevation in skin temp noted. L heel has shaved appearance secondary to Hx of Pressure Injuries. Base of heel is pale pink. Bone is palpable. Small area of slough noted within compromised area(L)0.6cm x (W)0.8cm. L Heel Also has shaved appearance with hypertrophic scarring. Base of compromised area is pale pink, Bone is palpable, with scattered loose, dry and scaly skin. Tx.Plan: Cleanse Sacral Wound and R Ischial wounds with Dakin's 0.125% gian. Loosely pack wounds with Hydrogel impregnated Kerlix. Apply Moisture Barrier Paste periwound. Cover with ABD Pads secure with Tegaderm drsg.Daily and prn. Apply Triad Paste to R Hip/R trochanteric areas.Cover with Optifoam drsg. Change every 7 days and prn. Apply Betadine to Medial R Knee. Cover with Optifoam drsg. Change every 7 days and prn. Apply Betadine to R and L Heels. Cover each Heel with Optifoam drsgs. Change every 7 days and prn. Cover Bony Prominences as needed with Optifoam drsgs. Reposition at least every [address] tolerated[address] Pillow between knees. Off-load heels with pillow. APM/SUMI Mattress overlay (15) SEAN (acute kidney injury) (16) Ileostomy prolapse Assessment & Plan: currently reduced but abd distended pending films films reviewed improved okay for diet d/c planning Cornelius Salgado Nov 02, 2019 16:17
[2019-11-02 18:23] LABS: APPEARANCE,URINE CLEAR; BILIRUBIN, URINE NEGATIVE (NEGATIVE); COLOR,URINE PALE YELLOW; GLUCOSE, URINE (UA) NEGATIVE (NEGATIVE); KETONES,URINE NEGATIVE (NEGATIVE); LEUKOCYTE ESTERASE ,URINE 1+ (NEGATIVE); NITRITE,URINE NEGATIVE (NEGATIVE); PH,URINE 7 (4.5-8.0); PROTEIN,URINE 2+ (NEGATIVE); UROBILINOGEN,URINE NORMAL MG/DL (0.0-1.0)
[2019-11-02 20:00] VITALS: BP 122/65
[2019-11-02] MEDS: Dyna-Hex 2% Top Sol 2oz TOPIC SCH (20:50)
--- NOTE | 2019-11-02 21:51 | Neurology Progress Note ---
Interim History Interim History ROS Limited/Unobtainable: Yes Interim History remains confused and in pain Objective Physical Exam Last Vital Signs Date Time Temp Pulse Resp B/P (MAP) Pulse Ox O2 Delivery O2 Flow Rate FiO2 11/02/19 19:26 70 11/02/19 17:00 100.4 11/02/19 16:00 Room Air Room Air 11/02/19 16:00 20 121/69 (86) 96 Laboratory Tests Test 11/02/19 17:50 Urine Color Pale yellow Urine Appearance Clear Urine pH 7 (4.5-8.0) Urine Specific [place] 1.010 (1.005-1.035) Urine Protein 2+ (NEGATIVE) H Urine Glucose (UA) Negative (NEGATIVE) Urine Ketones Negative (NEGATIVE) Urine Blood Negative (NEGATIVE) Urine Nitrite Negative (NEGATIVE) Urine Bilirubin Negative (NEGATIVE) Urine Urobilinogen Normal MG/DL (0.0-1.0) Urine Leukocyte Esterase 1+ (NEGATIVE) H Urine RBC 0-2 /HPF (0 - 0) H Urine WBC 5-10 /HPF (0 - 0) H Urine Squamous Epithelial Cells None /LPF (NONE/OCC) Urine Bacteria Few /HPF (NONE) Urine Yeast Few /HPF (NONE) H Neurologic Exam Mental Status: awake, alert Impression/Recommendations Problems: (1) Anemia (2) Encephalopathy (3) Drug (multiple) resistant infection (4) Urinary tract infection in male (5) Hypokalemia (6) Femur fracture (7) Hyponatremia (8) Sepsis (9) UTI (urinary tract infection) (10) Hypotension (11) Vomiting (12) Left leg pain (13) Decubital ulcer (14) SEAN (acute kidney injury) (15) Ileostomy prolapse (16) Abdominal distension Status: stable Diagnostic Impression 59 year old man who presents from [facility] with weakness, encephalopathy, concern for septic shock, possible from UTI vs infected sacral pressure ulcer Encephalopathy, improving Sepsis, improved Paraplegia Jose Joyner MD Nov 02, 2019 21:51
[2019-11-03] VITALS: BP 127/74
[2019-11-03 04:00] VITALS: BP 107/64
[2019-11-03] MEDS: Midodrine 10mg tab ORAL SCH ×3 (05:21→21:17)
[2019-11-03 08:00] VITALS: BP 126/67
--- NOTE | 2019-11-03 08:40 | Hematology/Onc Progress Note ---
Assessment/Plan Assessment/Plan Assessment/recs # Anemia rule out gi bleed, as well as iron deficiency --> hgb 8.2-->7.2-->7.1->6.9-->8.6-->8.3 --> anemia panel ordered--> cw acd --> occult blood pending --> gi eval prn --> transfuse as needed --> transfuse 2 units 10/27 # Coagulopathy with elev ptt/inr --> vitk and ffp as needed --> no bleeding noted at this time # Hypotension likely due to septic shock. Was diuresing heavily at 300 mL an hour. --> Continue on midodrine and dopamine. --> IV antibiotic with vancomycin and meropenem and amikacin-->christle --> in icu, is on pressors --> as per cards # Bradycardia. --> per cards # Paraplegia. # Urinary tract infection --> followed by Dr. Pianting on broad-spectrum IV antibiotic. # Decubitus ulcers with sacral decubitus. # Dvt heparin sq Appreciate consultation and dw RN Subjective Constitutional: Denies: no symptoms, chills, fever, malaise, weakness, other HEENT: Denies: no symptoms, eye pain, blurred vision, tearing, double vision, ear pain, ear discharge, nose pain, nose congestion, throat pain, throat swelling, mouth pain, mouth swelling, other Cardiovascular: Denies: no symptoms, chest pain, edema, irregular heart rate, lightheadedness, palpitations, syncope, other Respiratory: Denies: no symptoms, cough, shortness of breath, SOB with excertion, SOB at rest, sputum, wheezing, other Gastrointestinal/Abdominal: Denies: no symptoms, abdomen distended, abdominal pain, black stools, tarry stools, blood in stool, constipated, diarrhea, difficulty swallowing, nausea, poor appetite, poor fluid intake, rectal bleeding , vomiting, other Genitourinary: Denies: no symptoms, burning, discharge, frequency, flank pain, hematuria, incontinence, pain, urgency, other Endocrine: Denies: no symptoms, excessive sweating, flushing, intolerance to cold, intolerance to heat, increased hunger, increased thirst, increased urine, unexplained weight gain, unexplained weight loss, other Allergies: Coded Allergies: No Known Allergies (Unverified , 08/15/19) Subjective 10/27 labs again refused this am, yesterday was low, chandrakant rn in icu 10/28 remains in icu, for 2units prbc this am, chandrakant rn, no other events 10/29 s/p prbc, tolerated it well, no bleeding, on 1mcg levo, in icu 10/30 on abx, on levo and overnight no other events, 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\ 10/31 wounds improved, labs noted, no bleeding, hgb lower, refusing care/wound care 11/01 labs noted, no bleeding, no hematochezia, no hemoptysis, cbc ordered 11/02 meds reviewed, labs noted, no bleeding, chandrakant rn, no major changes, hgb 8.3 Objective Objective Current Medications Medications (Trade) Dose Ordered Sig/Mya Route PRN Reason Start Time Stop Time Status Last Admin Dose Admin Acetaminophen (Tylenol) 650 mg Q4H PRN ORAL Mild Pain (Pain Scale 1-3) 10/31/19 23:00 11/30/19 22:59 11/02/19 20:52 Acetaminophen/ Hydrocodone Bitart ([place] 5/325) 1 tab Q4H PRN ORAL Moderate Pain (Pain Scale 4-6) 10/31/19 23:30 11/07/19 23:29 11/02/19 13:03 Acetaminophen/ Hydrocodone Bitart ([place] 5/325) 2 tab Q4H PRN ORAL Severe Pain (Pain Scale 7-10) 10/31/19 23:15 11/07/19 23:14 11/02/19 05:21 Ascorbic Acid (Vitamin C) 500 mg DAILY ORAL 11/01/19 09:00 11/23/19 08:59 11/02/19 09:56 Baclofen (Lioresal) 10 mg THREE TIMES A DAY ORAL 11/01/19 09:00 11/22/19 17:59 11/02/19 17:28 Chlorhexidine Gluconate (Simran-Hex 2%) 1 applic DAILY@1999 TOPIC 11/01/19 20:00 01/22/20 19:59 11/02/19 20:50 Clonazepam (KlonoPIN) 0.5 mg Q8H PRN ORAL For Anxiety 10/31/19 23:00 11/07/19 22:59 10/31/19 23:29 Desmopressin Acetate (Ddavp) 2 mcg EVERY 12 HOURS IV 11/01/19 09:00 01/29/20 11:59 11/02/19 21:02 Dextrose (Dextrose 50%) 25 ml Q30M PRN IV Hypoglycemia 10/31/19 23:00 01/21/20 17:29 Dextrose (Dextrose 50%) 50 ml Q30M PRN IV Hypoglycemia 10/31/19 23:00 01/21/20 17:29 Diphenhydramine HCl (Benadryl) 25 mg Q6H PRN ORAL Itching/Pruritis 10/31/19 23:30 11/22/19 17:29 Docusate Sodium (Colace) 100 mg EVERY 12 HOURS ORAL 11/01/19 09:00 11/22/19 20:59 11/02/19 09:56 Famotidine (Pepcid) 20 mg DAILY ORAL 11/01/19 09:00 01/28/20 09:29 11/02/19 09:56 Ferrous Sulfate (Feosol) 325 mg DAILY ORAL 11/01/19 09:00 01/22/20 08:59 11/02/19 09:56 Fluconazole/ Sodium Chloride 200 ml @ 200 mls/hr Q24H IV 11/02/19 17:00 11/09/19 16:59 11/02/19 17:27 Gabapentin (Neurontin) 400 mg Q8HR ORAL 11/01/19 06:00 11/22/19 21:59 11/03/19 05:21 Heparin Sodium (Porcine) (Heparin 5000 units/ml) 5,000 units EVERY 12 HOURS SUBQ 11/01/19 09:00 12/08/19 08:59 11/02/19 21:05 Meropenem 1 gm/ Sodium Chloride 100 ml @ 200 mls/hr Q8H IVPB 11/02/19 18:00 11/05/19 09:59 11/02/19 17:54 Midodrine (Pro-Amatine) 10 mg EVERY 8 HOURS ORAL 11/01/19 06:00 01/21/20 17:59 11/03/19 05:21 Ondansetron HCl (Zofran) 4 mg Q6H PRN IVP Nausea & Vomiting 10/31/19 23:30 11/22/19 17:29 Sodium Hypochlorite (Dakin's Quarter Strength) 1 applic DAILY TOPIC 11/01/19 09:00 11/24/19 08:59 11/02/19 09:59 Sodium Chloride 1,000 ml @ 75 mls/hr [id number] IV 11/01/19 22:45 11/25/19 11:26 11/03/19 01:25 Vancomycin HCl (Vanco pharmacy to dose) 1 ea DAILY PRN MISC Per rx protocol 11/01/19 09:00 11/28/19 16:14 Vancomycin HCl 1 gm/Dextrose 275 ml @ 183.708 mls/hr Q12H IVPB 11/02/19 20:00 11/05/19 07:59 11/02/19 20:51 Zinc Sulfate (Zinc Sulfate) 220 mg DAILY ORAL 11/01/19 09:00 01/22/20 08:59 11/02/19 09:57 Last 24 Hour Vital Signs Date Time Temp Pulse Resp B/P (MAP) Pulse Ox O2 Delivery O2 Flow Rate FiO2 11/03/19 04:00 72 11/03/19 04:00 97.9 20 107/64 (78) 96 11/03/19 03:18 Room Air 11/03/19 00:00 99.1 85 20 127/74 (91) 97 11/03/19 00:00 84 11/03/19 00:00 Room Air 11/02/19 20:00 98.6 79 20 122/65 (84) 97 11/02/19 20:00 Room Air 11/02/19 19:26 70 11/02/19 17:00 100.4 11/02/19 16:00 Room Air Room Air 11/02/19 16:00 102.0 80 20 121/69 (86) 96 11/02/19 16:00 81 11/02/19 13:33 97.9 11/02/19 12:00 Room Air Room Air 11/02/19 12:00 98.9 71 21 119/68 (85) 96 11/02/19 11:54 70 11/02/19 08:00 97.9 61 20 126/58 (80) 97 11/02/19 08:00 Room Air Room Air 11/02/19 07:52 69 11/02/19 04:00 60 11/02/19 04:00 Room Air Room Air 11/02/19 04:00 98.1 61 16 103/59 (74) 97 11/02/19 00:00 99.0 78 16 122/65 (84) 97 11/02/19 00:00 74 11/02/19 00:00 Room Air Room Air 11/01/19 20:00 Room Air Room Air 11/01/19 20:00 78 11/01/19 20:00 97.6 78 16 113/59 (77) 98 11/01/19 16:00 98.8 65 22 105/61 (76) 98 11/01/19 16:00 76 11/01/19 16:00 Room Air 11/01/19 12:00 98.4 74 21 127/68 (87) 97 11/01/19 12:00 75 11/01/19 12:00 Room Air Intake and Output 11/02/19 11/03/19 19:00 07:00 Intake Total 1735 ml 500 ml Output Total 1440 ml 2000 ml Balance 295 ml -1500 ml Intake Oral 960 ml 500 ml IV Total 775 ml Output Urine Total 1400 ml 2000 ml Stool Total 40 ml # Bowel Movements 1 Labs Test 11/01/19 03:30 11/02/19 17:50 White Blood Count 6.3 K/UL (4.8-10.8) Red Blood Count 3.07 M/UL (4.70-6.10) Hemoglobin 8.3 G/DL (14.2-18.0) Hematocrit 26.1 % (42.0-52.0) Mean Corpuscular Volume 85 FL (80-99) Mean Corpuscular Hemoglobin 26.9 PG (27.0-31.0) Mean Corpuscular Hemoglobin Concent 31.7 G/DL (32.0-36.0) Red Cell Distribution Width 18.1 % (11.6-14.8) Platelet Count 381 K/UL (150-450) Mean Platelet Volume 4.5 FL (6.5-10.1) Neutrophils (%) (Auto) 48.9 % (45.0-75.0) Lymphocytes (%) (Auto) 38.4 % (20.0-45.0) Monocytes (%) (Auto) 6.9 % (1.0-10.0) Eosinophils (%) (Auto) 4.7 % (0.0-3.0) Basophils (%) (Auto) 1.1 % (0.0-2.0) Sodium Level 136 MMOL/L (136-145) Potassium Level 3.7 MMOL/L (3.5-5.1) Chloride Level 104 MMOL/L (98-107) Carbon Dioxide Level 25 MMOL/L (21-32) Anion Gap 8 mmol/L (5-15) Blood Urea Nitrogen 13 mg/dL (7-18) Creatinine 0.6 MG/DL (0.55-1.30) Estimat Glomerular Filtration Rate > 60 mL/min (>60) Glucose Level 85 MG/DL (74-106) Calcium Level 8.5 MG/DL (8.5-10.1) Total Bilirubin 0.3 MG/DL (0.2-1.0) Aspartate Amino Transf (AST/SGOT) 16 U/L (15-37) Alanine Aminotransferase (ALT/SGPT) 19 U/L (12-78) Alkaline Phosphatase 153 U/L (46-116) Total Protein 6.2 G/DL (6.4-8.2) Albumin 1.5 G/DL (3.4-5.0) Globulin 4.7 g/dL Albumin/Globulin Ratio 0.3 (1.0-2.7) Urine Color Pale yellow Urine Appearance Clear Urine pH 7 (4.5-8.0) Urine Specific [place] 1.010 (1.005-1.035) Urine Protein 2+ (NEGATIVE) Urine Glucose (UA) Negative (NEGATIVE) Urine Ketones Negative (NEGATIVE) Urine Blood Negative (NEGATIVE) Urine Nitrite Negative (NEGATIVE) Urine Bilirubin Negative (NEGATIVE) Urine Urobilinogen Normal MG/DL (0.0-1.0) Urine Leukocyte Esterase 1+ (NEGATIVE) Urine RBC 0-2 /HPF (0 - 0) Urine WBC 5-10 /HPF (0 - 0) Urine Squamous Epithelial Cells None /LPF (NONE/OCC) Urine Bacteria Few /HPF (NONE) Urine Yeast Few /HPF (NONE) Micro Microbiology Date/Time Source Procedure Growth Status 11/02/19 13:30 Nasopharynx SARS-CoV-2 RdRp Gene Assay - Final Complete 11/02/19 17:50 Urine,Clean Catch Urine Culture - Preliminary NO GROWTH Resulted 8/20/20 17:50 Indwelling Cath Urine Culture - Preliminary NO GROWTH Resulted Height (Feet): 5 Height (Inches): 7.00 Weight (Pounds): 114 Objective Physical Exam General Appearance: lethargic Lines, tubes and drains: peripheral, central line HEENT: normocephalic Neck: non-tender, normal alignment Respiratory/Chest: lungs clear Cardiovascular/Chest: normal peripheral pulses, normal rate, regular rhythm Abdomen: normal bowel sounds, non tender Martínez Capps MD Nov 03, 2019 08:40
[2019-11-03] MEDS: Ascorbic Acid 500mg tab ORAL SCH (08:58)
[2019-11-03] MEDS: Docusate 100mg cap ORAL SCH ×2 (08:58→21:16)
[2019-11-03] MEDS: Zinc Sulfate 220mg ORAL SCH (08:58)
[2019-11-03] MEDS: Desmopressin (DDAVP) Inj IV SCH (09:00)
[2019-11-03] MEDS: Vancomycin 1 GM in D5W 275 ML IVPB SCH ×2 (09:01→21:16)
[2019-11-03] MEDS: Dakin's 0.125% Soln (Quarter Strength) 16oz TOPIC SCH (09:02)
[2019-11-03] MEDS: Heparin 5000 units/ml inj SUBQ SCH ×2 (09:02→21:19)
[2019-11-03] MEDS: HYDROcodone/Acetamin 5/325 tab ORAL PRN ×2 (09:12→21:21)
--- NOTE | 2019-11-03 09:47 | Nephrology Progress Note ---
Assessment/Plan Plan #Polyuria - r/o DI vs dopamine effect??- however sodium remains in normal range #Shock #UTI # infected sacral pressure ulcer #Acute metabolic encephalopathy #Paraplegia #Sacral pressure ulcer #Hypokalemia #Anemia - continue NS hydration at 75 cc/hr - continue desmopressin at 2 BID - replete mag and K - continue midodrine 10 TID - antibiotics per ID - monitor lytes - monitor for vanoc toxicity - avoid nephrotoxins - daily weights - strict I&Os time spent 70 min- greater than 50% on care coordination and counseling Subjective ROS Limited/Unobtainable: Yes Subjective Bp stable labs pending today UOP around 3.5L IVF- NS 75 Objective Objective Last 24 Hour Vital Signs Date Time Temp Pulse Resp B/P (MAP) Pulse Ox O2 Delivery O2 Flow Rate FiO2 11/03/19 08:00 98.6 83 21 126/67 (86) 97 11/03/19 07:54 86 11/03/19 04:00 72 11/03/19 04:00 97.9 20 107/64 (78) 96 11/03/19 03:18 Room Air 11/03/19 00:00 99.1 85 20 127/74 (91) 97 11/03/19 00:00 84 11/03/19 00:00 Room Air 11/02/19 20:00 98.6 79 20 122/65 (84) 97 11/02/19 20:00 Room Air 11/02/19 19:26 70 11/02/19 17:00 100.4 11/02/19 16:00 Room Air Room Air 11/02/19 16:00 102.0 80 20 121/69 (86) 96 11/02/19 16:00 81 11/02/19 13:33 97.9 11/02/19 12:00 Room Air Room Air 11/02/19 12:00 98.9 71 21 119/68 (85) 96 11/02/19 11:54 70 Intake and Output 11/02/19 11/03/19 19:00 07:00 Intake Total 1735 ml 500 ml Output Total 1440 ml 2000 ml Balance 295 ml -1500 ml Intake Oral 960 ml 500 ml IV Total 775 ml Output Urine Total 1400 ml 2000 ml Stool Total 40 ml # Bowel Movements 1 Laboratory Tests 11/02/19 17:50: Urine Color Pale yellow, Urine Appearance Clear, Urine pH 7, Urine Specific [place] 1.010, Urine Protein 2+H, Urine Glucose (UA) Negative, Urine Ketones Negative, Urine Blood Negative, Urine Nitrite Negative, Urine Bilirubin Negative , Urine Urobilinogen Normal, Urine Leukocyte Esterase 1+H, Urine RBC 0-2H, Urine WBC 5-10H, Urine Squamous Epithelial Cells None, Urine Bacteria Few, Urine Yeast FewH Height (Feet): 5 Height (Inches): 7.00 Weight (Pounds): 114 Sienna Georges M.D. Nov 03, 2019 09:47
--- NOTE | 2019-11-03 10:30 | Pulmonology Progress Note ---
Subjective ROS Limited/Unobtainable: Yes Interval Events: Looking better Constitutional: Denies: fever HEENT: Repors: no symptoms Respiratory: Reports: no symptoms Cardiovascular: Reports: no symptoms Gastrointestinal/Abdominal: Denies: nausea, vomiting, diarrhea Genitourinary: Reports: no symptoms Psychiatric: Denies: depression Skin: Denies: rash Musculoskeletal: Denies: pain Allergies: Coded Allergies: No Known Allergies (Unverified , 08/15/19) All Systems: reviewed and negative except above Objective Last 24 Hour Vital Signs Date Time Temp Pulse Resp B/P (MAP) Pulse Ox O2 Delivery O2 Flow Rate FiO2 11/03/19 08:00 98.6 83 21 126/67 (86) 97 11/03/19 07:54 86 11/03/19 04:00 72 11/03/19 04:00 97.9 20 107/64 (78) 96 11/03/19 03:18 Room Air 11/03/19 00:00 99.1 85 20 127/74 (91) 97 11/03/19 00:00 84 11/03/19 00:00 Room Air 11/02/19 20:00 98.6 79 20 122/65 (84) 97 11/02/19 20:00 Room Air 11/02/19 19:26 70 11/02/19 17:00 100.4 11/02/19 16:00 Room Air Room Air 11/02/19 16:00 102.0 80 20 121/69 (86) 96 11/02/19 16:00 81 11/02/19 13:33 97.9 11/02/19 12:00 Room Air Room Air 11/02/19 12:00 98.9 71 21 119/68 (85) 96 11/02/19 11:54 70 Intake and Output 11/02/19 11/03/19 19:00 07:00 Intake Total 1735 ml 500 ml Output Total 1440 ml 2000 ml Balance 295 ml -1500 ml Intake Oral 960 ml 500 ml IV Total 775 ml Output Urine Total 1400 ml 2000 ml Stool Total 40 ml # Bowel Movements 1 General Appearance: no acute distress HEENT: normocephalic Respiratory: chest wall non-tender, lungs clear Cardiovascular: normal peripheral pulses, regular rhythm Abdomen: normal bowel sounds Extremities: no cyanosis Microbiology Date/Time Source Procedure Growth Status 11/02/19 13:30 Nasopharynx SARS-CoV-2 RdRp Gene Assay - Final Complete 11/02/19 17:50 Urine,Clean Catch Urine Culture - Preliminary NO GROWTH Resulted 11/02/19 17:50 Indwelling Cath Urine Culture - Preliminary NO GROWTH Resulted Laboratory Tests 11/02/19 17:50: Urine Color Pale yellow, Urine Appearance Clear, Urine pH 7, Urine Specific [place] 1.010, Urine Protein 2+H, Urine Glucose (UA) Negative, Urine Ketones Negative, Urine Blood Negative, Urine Nitrite Negative, Urine Bilirubin Negative , Urine Urobilinogen Normal, Urine Leukocyte Esterase 1+H, Urine RBC 0-2H, Urine WBC 5-10H, Urine Squamous Epithelial Cells None, Urine Bacteria Few, Urine Yeast FewH Current Medications Medications (Trade) Dose Ordered Sig/Mya Route PRN Reason Start Time Stop Time Status Last Admin Dose Admin Acetaminophen (Tylenol) 650 mg Q4H PRN ORAL Mild Pain (Pain Scale 1-3) 10/31/19 23:00 11/30/19 22:59 11/02/19 20:52 Acetaminophen/ Hydrocodone Bitart ([place] 5/325) 1 tab Q4H PRN ORAL Moderate Pain (Pain Scale 4-6) 10/31/19 23:30 11/07/19 23:29 11/02/19 13:03 Acetaminophen/ Hydrocodone Bitart ([place] 5/325) 2 tab Q4H PRN ORAL Severe Pain (Pain Scale 7-10) 10/31/19 23:15 11/07/19 23:14 11/03/19 09:12 Ascorbic Acid (Vitamin C) 500 mg DAILY ORAL 11/01/19 09:00 11/23/19 08:59 11/03/19 08:58 Baclofen (Lioresal) 10 mg THREE TIMES A DAY ORAL 11/01/19 09:00 11/22/19 17:59 11/03/19 08:58 Chlorhexidine Gluconate (Simran-Hex 2%) 1 applic DAILY@1999 TOPIC 11/01/19 20:00 01/22/20 19:59 11/02/19 20:50 Clonazepam (KlonoPIN) 0.5 mg Q8H PRN ORAL For Anxiety 10/31/19 23:00 11/07/19 22:59 10/31/19 23:29 Desmopressin Acetate (Ddavp) 2 mcg EVERY 12 HOURS IV 11/01/19 09:00 01/29/20 11:59 11/03/19 09:00 Dextrose (Dextrose 50%) 25 ml Q30M PRN IV Hypoglycemia 10/31/19 23:00 01/21/20 17:29 Dextrose (Dextrose 50%) 50 ml Q30M PRN IV Hypoglycemia 10/31/19 23:00 01/21/20 17:29 Diphenhydramine HCl (Benadryl) 25 mg Q6H PRN ORAL Itching/Pruritis 10/31/19 23:30 11/22/19 17:29 Docusate Sodium (Colace) 100 mg EVERY 12 HOURS ORAL 11/01/19 09:00 11/22/19 20:59 11/03/19 08:58 Famotidine (Pepcid) 20 mg DAILY ORAL 11/01/19 09:00 01/28/20 09:29 11/03/19 08:58 Ferrous Sulfate (Feosol) 325 mg DAILY ORAL 11/01/19 09:00 01/22/20 08:59 11/03/19 08:58 Fluconazole/ Sodium Chloride 200 ml @ 200 mls/hr Q24H IV 11/02/19 17:00 11/09/19 16:59 11/02/19 17:27 Gabapentin (Neurontin) 400 mg Q8HR ORAL 11/01/19 06:00 11/22/19 21:59 11/03/19 05:21 Heparin Sodium (Porcine) (Heparin 5000 units/ml) 5,000 units EVERY 12 HOURS SUBQ 11/01/19 09:00 12/08/19 08:59 11/03/19 09:02 Meropenem 1 gm/ Sodium Chloride 100 ml @ 200 mls/hr Q8H IVPB 11/02/19 18:00 11/05/19 09:59 11/02/19 17:54 Midodrine (Pro-Amatine) 10 mg EVERY 8 HOURS ORAL 11/01/19 06:00 01/21/20 17:59 11/03/19 05:21 Ondansetron HCl (Zofran) 4 mg Q6H PRN IVP Nausea & Vomiting 10/31/19 23:30 11/22/19 17:29 Sodium Hypochlorite (Dakin's Quarter Strength) 1 applic DAILY TOPIC 11/01/19 09:00 11/24/19 08:59 11/03/19 09:02 Sodium Chloride 1,000 ml @ 75 mls/hr [id number] IV 11/01/19 22:45 11/25/19 11:26 11/03/19 01:25 Vancomycin HCl (Vanco pharmacy to dose) 1 ea DAILY PRN MISC Per rx protocol 11/01/19 09:00 11/28/19 16:14 Vancomycin HCl 1 gm/Dextrose 275 ml @ 183.708 mls/hr Q12H IVPB 11/02/19 20:00 11/05/19 07:59 11/03/19 09:01 Zinc Sulfate (Zinc Sulfate) 220 mg DAILY ORAL 11/01/19 09:00 01/22/20 08:59 11/03/19 08:58 Assessment/Plan Assessment/Plan IMPRESSION: 1. Septic shock. resolved 2. Complicated UTI with history of previous ESBL infection. 3. Paraplegia. 4. Sacral decubitus. 5. care home resident. DISCUSSION: DVT and GI prophylaxes. ID consult and follow-up noted. I will follow carefully. continue Oxygen, doing well on room air at this time. Gregg Curtis M.D. Gregg Curtis MD Nov 03, 2019 10:30
--- NOTE | 2019-11-03 10:30 | Discharge Summary ---
Discharge Summary Hospital Course Date of Admission Oct 23, 2019 at 15:40 Date of Discharge 11/03/19 Admitting Diagnosis Septic shock HPI Chino Castellanos is a 59 year old male who was admitted on Oct 23, 2019 at 15: 40 for Sepsis 59-year-old male with past medical history of paraplegia, sacral decubitus ulcer , anemia, hypertension, ESBL multidrug-resistant urinary tract infection [facility] from [facility] by ambulance for hypotension, general weakness and confusion. In ED he was noted to be altered with mild hypotension with SBP in 90s, lactate 2.0, UA with mild pyuria. Patient was to be admitted to tele but was upgraded to MICU due to persistent hypotension and bradycardia to 44, started on Levophed and dopamine overnight by transition social worker. Patient seen and examined, feels well, denies any specific complaints such as CP, dyspnea, weakness, dizziness. Consultations ID Pulmonology Surgery Cardiology Nephrology Neurology Hospital Course 59 year old man who presents from T with weakness, encephalopathy, concern for septic shock, possible from UTI vs infected sacral pressure ulcer. Admitted to ICU for hypotension. Was started on Levophed and dopamine to keep MAP above 65. Required transfusion for anemia of 2 units pRBC. Hypotension eventually improved. During that time patient has episodes of bradycardia and cardiology evaluated. Was also started on midodrine for hypotension at that time. ID evaluated and cultures showed below. Pressure ulcers evaluated buy surgery. Currently on course of meropenem, vancomycin and Diflucan. Nephrolgy gave trial of DDAVP for hypernatremia but unclear of effectiveness due to patient refusing labs.will go home on .1 mg BID of desmopressin. During end of stay patient started refusing certain medicines as well. #Septic shock- improving #Proteus UTI #Acute metabolic encephalopathy -improving #Paraplegia #Sacral pressure ulcer, present on admit -DC planning -Off vasopressors -off amikacin, continue meropenem and vancomycin -Spoke with surgery, sacral pressure ulcer does not appear to be infected -Local wound care and offloading #Sinus Bradycardia - resolved -continue telemetry -EP following #Hyponatremia #Hypokalemia -improving -refusing labs sometime -Replete when necessary -On DDAVP #Anemia, acute on chronic -2 units RBC 10/28 -Hematology following Full Code URINE CULTURE Final COMMENTS: ESBL CALLED TO LOBO AGUILAR RN BY DEIDRA MORGAN,CLS @0132 10/28/19 Organism 1 PROTEUS MIRABILIS COLONY COUNT: >100,000 CFU/ML Organism 2 ESCHERICHIA COLI - ESBL PRO MIRABI ESCCOL ESB M.I.C. RX M.I.C. RX --------- --- --------- --- AMPICILLIN >=32 R >=32 R CEFAZOLIN 8 S >=64 R CEFTAZIDIME R CEFTRIAXONE <=1 S >=64 R CEFEPIME R ERTAPENEM <=0.5 S GENTAMICIN <=1 S <=1 S LEVOFLOXACIN 4 I >=8 R * MEROPENEM <=0.25 S <=0.25 S NITROFURANTOIN 128 R <=16 S TRIMETHOPRIM/SULFA >=320 R >=320 R PIPERACILLIN/TAZOBACTAM <=4 S <=4 S I spent 38 minutes on this patient's discharge , and 21 mins was dedicated to counseling and care coordination. Discussed with all consultants, Charge nurse and RNs. Coordinated with SNF. Discharge Medications New Medications: Desmopressin Acetate (Ddavp) 0.1 Mg Tablet 0.1 MG PO BID for 30 Days, TAB Fluconazole (Fluconazole) 100 Mg Tablet 100 MG ORAL DAILY for 6 Days, #7 TAB 0 Refills Meropenem (Merrem) 1 Gm Vial 1 GM IV Q8HR for 3 Days, VIAL Vancomycin Hcl (Vancomycin) 1 Gm Vial 1 GM IV BID for 3 Days, VIAL Midodrine (Midodrine HCl) 10 Mg Tablet 10 MG ORAL EVERY 8 HOURS for 30 Days, TAB Continued Medications: Acetaminophen* (Acetaminophen 325MG Tablet*) 325 Mg Tablet 650 MG ORAL Q6H PRN for pain/fever, TAB Amino Acids/Protein Hydrolys (Pro-Stat Liquid) 30 Ml Liquid.pkt 30 ML ORAL THREE TIMES A DAY for supplement, ML Ascorbic Acid* (Ascorbic Acid*) 500 Mg Tablet 500 MG ORAL DAILY for wound healing, TAB Baclofen* (Baclofen*) 10 Mg Tablet 10 MG ORAL THREE TIMES A DAY for muscle spasm, TAB Clonazepam* (Klonopin*) 0.5 Mg Tablet 0.5 MG ORAL TID for anxiety, #15 TAB 0 Refills Cranberry Fruit (Cranberry) 450 Mg Tablet 450 MG PO DAILY for UTI, TAB Docusate Sodium* (Docusate Sodium*) 100 Mg Capsule 100 MG ORAL TWICE A DAY for prophylaxis, CAP Ferrous Sulfate* (Ferrous Sulfate*) 325 Mg Tablet 325 MG ORAL DAILY for anemia, #30 TAB 0 Refills Gabapentin* (Gabapentin*) 400 Mg Capsule 400 MG ORAL THREE TIMES A DAY for pain, CAP 0 Refills Heparin Sod (Porcine) (Heparin Sodium*) 5 000/1 Ml Vial 5000 UNITS SUBQ EVERY 12 HOURS for scheduled, VIAL Magnesium Hydroxide* (Milk Of Magnesia*) 400 Mg/5 Ml Oral.susp 30 ML ORAL DAILY PRN for Constipation, ML Multivitamins* (Multivitamins*) 1 Each Tablet 1 TAB ORAL DAILY for supplement, TAB 0 Refills Omeprazole (Omeprazole) 20 Mg Capsule.dr 20 MG ORAL TWICE A DAY for GI ppx, CAP Tramadol Hcl* (Ultram*) 50 Mg Tablet 50 MG ORAL Q6H PRN for For Pain, #12 TAB 0 Refills Discharge Condition Upon Discharge: stable Discharge Vital Signs Last Vital Signs Date Time Temp Pulse Resp B/P (MAP) Pulse Ox O2 Delivery O2 Flow Rate FiO2 11/03/19 08:00 98.6 83 21 126/67 (86) 97 11/03/19 03:18 Room Air Discharge Disposition Patient was discharged to [facility] Discharge Diagnoses: (1) Septic shock (2) UTI (urinary tract infection) (3) Anemia (4) Encephalopathy (5) Hypokalemia (6) Drug (multiple) resistant infection (7) Hypotension (8) Hyponatremia Art Hensley M.D. Nov 03, 2019 10:30
--- NOTE | 2019-11-03 11:33 | Surgery Progress Note ---
Surgery Progress Note Subjective Additional Comments no n/v improved bp improved tolerating diet Objective Last 24 Hour Vital Signs Date Time Temp Pulse Resp B/P (MAP) Pulse Ox O2 Delivery O2 Flow Rate FiO2 11/03/19 08:00 98.6 83 21 126/67 (86) 97 11/03/19 07:54 86 11/03/19 04:00 72 11/03/19 04:00 97.9 20 107/64 (78) 96 11/03/19 03:18 Room Air 11/03/19 00:00 99.1 85 20 127/74 (91) 97 11/03/19 00:00 84 11/03/19 00:00 Room Air 11/02/19 20:00 98.6 79 20 122/65 (84) 97 11/02/19 20:00 Room Air 11/02/19 19:26 70 11/02/19 17:00 100.4 11/02/19 16:00 Room Air Room Air 11/02/19 16:00 102.0 80 20 121/69 (86) 96 11/02/19 16:00 81 11/02/19 13:33 97.9 11/02/19 12:00 Room Air Room Air 11/02/19 12:00 98.9 71 21 119/68 (85) 96 11/02/19 11:54 70 I&O Intake and Output 11/02/19 11/03/19 19:00 07:00 Intake Total 1735 ml 500 ml Output Total 1440 ml 2000 ml Balance 295 ml -1500 ml Intake Oral 960 ml 500 ml IV Total 775 ml Output Urine Total 1400 ml 2000 ml Stool Total 40 ml # Bowel Movements 1 Dressing: saturated Cardiovascular: RSR Respiratory: decreased breath sounds Abdomen: soft, non-tender, present bowel sounds Extremities: no edema, no tenderness, no cyanosis Laboratory Tests Test 11/02/19 17:50 Urine Color Pale yellow Urine Appearance Clear Urine pH 7 (4.5-8.0) Urine Specific [place] 1.010 (1.005-1.035) Urine Protein 2+ (NEGATIVE) H Urine Glucose (UA) Negative (NEGATIVE) Urine Ketones Negative (NEGATIVE) Urine Blood Negative (NEGATIVE) Urine Nitrite Negative (NEGATIVE) Urine Bilirubin Negative (NEGATIVE) Urine Urobilinogen Normal MG/DL (0.0-1.0) Urine Leukocyte Esterase 1+ (NEGATIVE) H Urine RBC 0-2 /HPF (0 - 0) H Urine WBC 5-10 /HPF (0 - 0) H Urine Squamous Epithelial Cells None /LPF (NONE/OCC) Urine Bacteria Few /HPF (NONE) Urine Yeast Few /HPF (NONE) H Plan Problems: (1) Abdominal distension Assessment & Plan: abd distention soft non tender ostomy viable and reduced KUB ordered pending results improved comfortable no complaints okay for diet s tolerated d/c planning much improved There is an inferior vena cava filter in place. Bowel gas pattern is unremarkable. Considerable stool is seen in the transverse and distal colon. There is extensive pelvic deformity, with loss of the left femoral head, chronic dislocation of the left femur, and extensive pelvic deformity, particularly on the left. [place] project over the upper pelvis Impression: Possible constipation. 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 [place] Shaped, Full Thickness Sacral Pressure Injury which extends into L ischium. (L)15.4cm x (W)18cm x (D)2.4cm, Undermining clockwise 10-2 by 7.7cm @ 11o'clock. Base of wound is moist,pink with scattered slough at base of wound. Bone is palpable at the Base. No odor or exudate noted. Scattered partial thickness wounds and Serous filled blisters noted to R trochanteric /R Hip areas. Historical scar noted to L groin, L Hip L Buttocks. Bony protrusion noted at L Hip. Full thickness Pressure Injury R Ischium(L)5.4cm x(W)6.9cm x (D)1.8cm, Undermining clockwise 1-4 by 2.7cm @2o'clock, Tunneling@7o'clock 2.9cm. Base of wound is moist pink with scattered slough. Scattered slough noted along borders. NO odor or exudate noted. Stable dry eschar noted to medial R knee 0.7cm x (W)0.4cm. Periwound is erythematous and indurated. No elevation in skin temp noted. L heel has shaved appearance secondary to Hx of Pressure Injuries. Base of heel is pale pink. Bone is palpable. Small area of slough noted within compromised area(L)0.6cm x (W)0.8cm. L Heel Also has shaved appearance with hypertrophic scarring. Base of compromised area is pale pink, Bone is palpable, with scattered loose, dry and scaly skin. Tx.Plan: Cleanse Sacral Wound and R Ischial wounds with Dakin's 0.125% gian. Loosely pack wounds with Hydrogel impregnated Kerlix. Apply Moisture Barrier Paste periwound. Cover with ABD Pads secure with Tegaderm drsg.Daily and prn. Apply Triad Paste to R Hip/R trochanteric areas.Cover with Optifoam drsg. Change every 7 days and prn. Apply Betadine to Medial R Knee. Cover with Optifoam drsg. Change every 7 days and prn. Apply Betadine to R and L Heels. Cover each Heel with Optifoam drsgs. Change every 7 days and prn. Cover Bony Prominences as needed with Optifoam drsgs. Reposition at least every 2 hours or as tolerated[address] Pillow between knees. Off-load heels with pillow. APM/SUMI Mattress overlay (15) SEAN (acute kidney injury) (16) Ileostomy prolapse Assessment & Plan: currently reduced but abd distended pending films films reviewed improved okay for diet d/c planning Cornelius Salgado Nov 03, 2019 11:33
--- NOTE | 2019-11-03 11:49 | Cardiac Electrophysiology PN ---
Assessment/Plan Assessment/Plan 1. S/P Septic shock. Off Levophed. On Midodrine and antibiotic and iv fluid 2. Bradycardia. Resolved. 3. Paraplegia. 4. Urinary tract infection, on broad-spectrum IV antibiotic. 5. Decubitus ulcers with sacral decubitus. 6. S/P Ileostomy/ 7. Polyuria, DI. On NS and DDAVP. KAMI RN Subjective Subjective Alert in NAD off pressors. DC to SNIF pending Objective Last 24 Hour Vital Signs Date Time Temp Pulse Resp B/P (MAP) Pulse Ox O2 Delivery O2 Flow Rate FiO2 11/03/19 08:00 98.6 83 21 126/67 (86) 97 11/03/19 07:54 86 11/03/19 04:00 72 11/03/19 04:00 97.9 20 107/64 (78) 96 11/03/19 03:18 Room Air 11/03/19 00:00 99.1 85 20 127/74 (91) 97 11/03/19 00:00 84 11/03/19 00:00 Room Air 11/02/19 20:00 98.6 79 20 122/65 (84) 97 11/02/19 20:00 Room Air 11/02/19 19:26 70 11/02/19 17:00 100.4 11/02/19 16:00 Room Air Room Air 11/02/19 16:00 102.0 80 20 121/69 (86) 96 11/02/19 16:00 81 11/02/19 13:33 97.9 11/02/19 12:00 Room Air Room Air 11/02/19 12:00 98.9 71 21 119/68 (85) 96 11/02/19 11:54 70 Intake and Output 11/02/19 11/03/19 19:00 07:00 Intake Total 1735 ml 500 ml Output Total 1440 ml 2000 ml Balance 295 ml -1500 ml Intake Oral 960 ml 500 ml IV Total 775 ml Output Urine Total 1400 ml 2000 ml Stool Total 40 ml # Bowel Movements 1 Laboratory Tests Test 11/02/19 17:50 Urine Color Pale yellow Urine Appearance Clear Urine pH 7 (4.5-8.0) Urine Specific [place] 1.010 (1.005-1.035) Urine Protein 2+ (NEGATIVE) H Urine Glucose (UA) Negative (NEGATIVE) Urine Ketones Negative (NEGATIVE) Urine Blood Negative (NEGATIVE) Urine Nitrite Negative (NEGATIVE) Urine Bilirubin Negative (NEGATIVE) Urine Urobilinogen Normal MG/DL (0.0-1.0) Urine Leukocyte Esterase 1+ (NEGATIVE) H Urine RBC 0-2 /HPF (0 - 0) H Urine WBC 5-10 /HPF (0 - 0) H Urine Squamous Epithelial Cells None /LPF (NONE/OCC) Urine Bacteria Few /HPF (NONE) Urine Yeast Few /HPF (NONE) H Microbiology Date/Time Source Procedure Growth Status 11/02/19 13:30 Nasopharynx SARS-CoV-2 RdRp Gene Assay - Final Complete 11/02/19 17:50 Urine,Clean Catch Urine Culture - Preliminary NO GROWTH Resulted 11/02/19 17:50 Indwelling Cath Urine Culture - Preliminary NO GROWTH Resulted Objective HEAD AND NECK: No JVD. Right IJ central line. LUNGS: Coarse rhonchi. CARDIOVASCULAR: Regular S1 and S2 with no gallop. ABDOMEN: Soft.S/P Ileostomy EXTREMITIES: No pitting edema, however, has pressure ulcers. Carloz Estes MD Nov 03, 2019 11:49
[2019-11-03 12:00] VITALS: BP 105/59
--- NOTE | 2019-11-03 12:10 | Diagnostic Imaging Report ---
Indication: Cough Technique: One view of the chest Comparison: 10/29/2019 Findings: There are increased atelectatic changes at the lung bases. Interim removal of previously demonstrated central venous catheter. The pleural spaces are clear. The heart size is normal. Impression: Increasing bilateral basilar atelectasis Interim central venous catheter removal.
[2019-11-03 12:45] LABS: ALANINE AMINOTRANSFERASE 13 U/L (12-78); ALBUMIN 1.7 G/DL (3.4-5.0); ALBUMIN/GLOBULIN RATIO 0.3 (1.0-2.7); ALKALINE PHOSPHATASE 153 U/L (46-116); ANION GAP 9 mmol/L (5-15); ASPARTATE AMINO TRANSFERASE 14 U/L (15-37); BILIRUBIN,TOTAL 0.6 MG/DL (0.2-1.0); BLOOD UREA NITROGEN 12 mg/dL (7-18); CALCIUM 8.7 MG/DL (8.5-10.1); CARBON DIOXIDE 25 MMOL/L (21-32); CHLORIDE 88 MMOL/L (98-107); CREATININE 0.5 MG/DL (0.55-1.30); POTASSIUM 3.4 MMOL/L (3.5-5.1); SODIUM 121 MMOL/L (136-145)
[2019-11-03 16:00] VITALS: BP 126/67
[2019-11-03 20:00] VITALS: BP 107/67
[2019-11-04] VITALS: BP 105/60
[2019-11-04 04:00] VITALS: BP 102/58
[2019-11-04] MEDS: Midodrine 10mg tab ORAL SCH ×3 (05:43→22:08)
[2019-11-04] MEDS ORDERED: clonazePAM 0.5mg tab ORAL PRN (07:54)
[2019-11-04] MEDS ORDERED: HYDROcodone/Acetamin 5/325 tab ORAL PRN (07:57)
[2019-11-04 08:00] VITALS: BP 90/49
[2019-11-04] MEDS: Vancomycin 1 GM in D5W 275 ML IVPB SCH ×2 (08:00→20:24)
[2019-11-04] MEDS ORDERED: Tubing IV Secondary IV ONE (08:33)
[2019-11-04] MEDS: Ascorbic Acid 500mg tab ORAL SCH (08:42)
[2019-11-04] MEDS: Docusate 100mg cap ORAL SCH ×2 (08:43→21:08)
[2019-11-04] MEDS: Zinc Sulfate 220mg ORAL SCH (08:43)
[2019-11-04] MEDS: Heparin 5000 units/ml inj SUBQ SCH ×2 (08:46→21:14)
--- NOTE | 2019-11-04 08:46 | Pulmonology Progress Note ---
Subjective ROS Limited/Unobtainable: Yes Interval Events: Looking better Constitutional: Denies: fever HEENT: Repors: no symptoms Respiratory: Reports: no symptoms Cardiovascular: Reports: no symptoms Gastrointestinal/Abdominal: Denies: nausea, vomiting, diarrhea Genitourinary: Reports: no symptoms Psychiatric: Denies: depression Skin: Denies: rash Musculoskeletal: Denies: pain Allergies: Coded Allergies: No Known Allergies (Unverified , 08/15/19) All Systems: reviewed and negative except above Objective Last 24 Hour Vital Signs Date Time Temp Pulse Resp B/P (MAP) Pulse Ox O2 Delivery O2 Flow Rate FiO2 11/04/19 04:00 98.1 68 19 102/58 (73) 99 11/04/19 04:00 Room Air 11/04/19 04:00 70 11/04/19 00:00 61 11/04/19 00:00 98.1 61 19 105/60 (75) 100 11/04/19 00:00 Room Air 11/03/19 20:00 98.3 89 20 107/67 (80) 99 11/03/19 20:00 Room Air 11/03/19 16:00 68 11/03/19 16:00 98.6 83 20 126/67 (86) 97 11/03/19 16:00 Room Air 11/03/19 12:00 97.1 68 19 105/59 (74) 99 11/03/19 12:00 Room Air 11/03/19 11:54 68 Intake and Output 11/03/19 11/04/19 19:00 07:00 Intake Total 1192.416 ml 1010 ml Output Total 1420 ml 2100 ml Balance -227.584 ml -1090 ml Intake Oral 200 ml 260 ml IV Total 992.416 ml 750 ml Output Urine Total 1400 ml 2100 ml Stool Total 20 ml 0 ml # Bowel Movements 2 1 General Appearance: no acute distress HEENT: normocephalic Respiratory: chest wall non-tender, lungs clear Cardiovascular: normal peripheral pulses, regular rhythm Abdomen: normal bowel sounds Extremities: no cyanosis Microbiology Date/Time Source Procedure Growth Status 11/02/19 13:30 Nasopharynx SARS-CoV-2 RdRp Gene Assay - Final Complete 11/02/19 17:50 Urine,Clean Catch Urine Culture - Preliminary Yeast Species Resulted 11/02/19 17:50 Indwelling Cath Urine Culture - Preliminary Yeast Species Resulted 11/03/19 08:00 Catheter Site Catheter Tip Culture - Preliminary Resulted Laboratory Tests 11/03/19 11:55: Sodium Level 121L, Potassium Level 3.4L, Chloride Level 88L, Carbon Dioxide Level 25, Anion Gap 9, Blood Urea Nitrogen 12, Creatinine 0.5L, Estimat Glomerular Filtration Rate > 60, Glucose Level 127H, Calcium Level 8.7, Phosphorus Level 2.6, Magnesium Level 1.5L, Total Bilirubin 0.6, Aspartate Amino Transf (AST/SGOT) 14L, Alanine Aminotransferase (ALT/SGPT) 13, Alkaline Phosphatase 153H, Total Protein 6.8, Albumin 1.7L, Globulin 5.1, Albumin/ Globulin Ratio 0.3L Current Medications Medications (Trade) Dose Ordered Sig/Mya Route PRN Reason Start Time Stop Time Status Last Admin Dose Admin Acetaminophen (Tylenol) 650 mg Q4H PRN ORAL Mild Pain (Pain Scale 1-3) 11/04/19 11:00 11/30/19 22:59 Acetaminophen/ Hydrocodone Bitart ([place] 5/325) 1 tab Q4H PRN ORAL Moderate Pain (Pain Scale 4-6) 11/04/19 07:57 11/07/19 07:56 Acetaminophen/ Hydrocodone Bitart ([place] 5/325) 2 tab Q4H PRN ORAL Severe Pain (Pain Scale 7-10) 11/04/19 07:57 11/07/19 07:56 Ascorbic Acid (Vitamin C) 500 mg DAILY ORAL 11/04/19 09:00 11/23/19 08:59 Baclofen (Lioresal) 10 mg THREE TIMES A DAY ORAL 11/04/19 09:00 11/22/19 17:59 Clonazepam (KlonoPIN) 0.5 mg Q8H PRN ORAL For Anxiety 11/04/19 07:54 11/07/19 07:53 Dextrose (Dextrose 50%) 25 ml Q30M PRN IV Hypoglycemia 11/04/19 08:00 01/21/20 17:29 Dextrose (Dextrose 50%) 50 ml Q30M PRN IV Hypoglycemia 11/04/19 08:00 01/21/20 17:29 Diphenhydramine HCl (Benadryl) 25 mg Q6H PRN ORAL Itching/Pruritis 11/04/19 07:55 11/22/19 07:54 Docusate Sodium (Colace) 100 mg EVERY 12 HOURS ORAL 11/04/19 09:00 11/22/19 20:59 Famotidine (Pepcid) 20 mg DAILY ORAL 11/04/19 09:00 01/28/20 09:29 Ferrous Sulfate (Feosol) 325 mg DAILY ORAL 11/04/19 09:00 01/22/20 08:59 Fluconazole/ Sodium Chloride 200 ml @ 200 mls/hr Q24H IV 11/04/19 17:00 11/09/19 16:59 Gabapentin (Neurontin) 400 mg Q8HR ORAL 11/04/19 14:00 12/03/19 21:59 Heparin Sodium (Porcine) (Heparin 5000 units/ml) 5,000 units EVERY 12 HOURS SUBQ 11/04/19 09:00 12/08/19 08:59 Meropenem 1 gm/ Sodium Chloride 100 ml @ 200 mls/hr Q8H IVPB 11/04/19 10:00 11/05/19 09:59 Midodrine (Pro-Amatine) 10 mg EVERY 8 HOURS ORAL 11/04/19 14:00 01/21/20 17:59 Ondansetron HCl (Zofran) 4 mg Q6H PRN IVP Nausea & Vomiting 11/04/19 07:58 11/22/19 07:57 Sodium Hypochlorite (Dakin's Quarter Strength) 1 applic DAILY TOPIC 11/04/19 09:00 11/24/19 08:59 Sodium Chloride 1,000 ml @ 75 mls/hr [id number] IV 11/04/19 08:00 11/25/19 11:26 Vancomycin HCl (Vanco pharmacy to dose) 1 ea DAILY PRN MISC Per rx protocol 11/04/19 09:00 11/28/19 16:14 Vancomycin HCl 1 gm/Dextrose 275 ml @ 183.708 mls/hr Q12H IVPB 11/04/19 08:00 11/05/19 07:59 Zinc Sulfate (Zinc Sulfate) 220 mg DAILY ORAL 11/04/19 09:00 01/22/20 08:59 Assessment/Plan Assessment/Plan IMPRESSION: 1. Septic shock. resolved 2. Complicated UTI with history of previous ESBL infection. 3. Paraplegia. 4. Sacral decubitus. 5. assisted resident. DISCUSSION: DVT and GI prophylaxes. ID consult and follow-up noted. I will follow carefully. continue Oxygen, doing well on room air at this time. Gregg Curtis M.D. Gregg Curtis MD Nov 04, 2019 08:45
[2019-11-04] MEDS: Dakin's 0.125% Soln (Quarter Strength) 16oz TOPIC SCH (08:47)
[2019-11-04] MEDS: HYDROcodone/Acetamin 5/325 tab ORAL PRN ×3 (08:52→23:24)
--- NOTE | 2019-11-04 09:12 | General Progress Note ---
Assessment/Plan Problem List: (1) Anemia ICD Codes: D64.9 - Anemia, unspecified SNOMED: 609103178 (2) Encephalopathy ICD Codes: G93.40 - Encephalopathy, unspecified SNOMED: 73308371 (3) Drug (multiple) resistant infection SNOMED: 07935979, 40040233506548 (4) Urinary tract infection in male ICD Codes: N39.0 - Urinary tract infection, site not specified SNOMED: 66409959, 047489767 (5) Hypokalemia ICD Codes: E87.6 - Hypokalemia SNOMED: 28175542 (6) Femur fracture ICD Codes: S72.90XA - Unspecified fracture of unspecified femur, initial encounter for closed fracture SNOMED: 47509157 (7) Hyponatremia ICD Codes: E87.1 - Hypo-osmolality and hyponatremia SNOMED: 37994195 (8) Sepsis ICD Codes: A41.9 - Sepsis, unspecified organism SNOMED: 28735251 (9) UTI (urinary tract infection) ICD Codes: N39.0 - Urinary tract infection, site not specified SNOMED: 14259574 (10) Hypotension ICD Codes: I95.9 - Hypotension, unspecified SNOMED: 42666178 (11) Decubital ulcer ICD Codes: L89.90 - Pressure ulcer of unspecified site, unspecified stage SNOMED: 860733739 (12) SEAN (acute kidney injury) ICD Codes: N17.9 - Acute kidney failure, unspecified SNOMED: 3197480, 40679363 Status: stable Assessment/Plan: Patient has been refusing labs but on day of DC BMP obtained and showed hyponatremia and other electrolyte deficiencies. Will replete and try for DC today. #Septic shock- improving #Proteus UTI #Acute metabolic encephalopathy -improving #Paraplegia #Sacral pressure ulcer, present on admit -DC planning -Off vasopressors -off amikacin, continue meropenem and vancomycin -Spoke with surgery, sacral pressure ulcer does not appear to be infected -Local wound care and offloading #Sinus Bradycardia - resolved -continue telemetry -EP following #Hyponatremia -worsening #Hypokalemia -improving -refusing labs -Replete when necessary -DC DDAVP #Anemia, acute on chronic -2 units RBC 10/28 -Hematology following Full Code URINE CULTURE Final COMMENTS: ESBL CALLED TO LOBO AGUILAR RN BY DEIDRA MORGAN,CLS @0132 10/28/19 Organism 1 PROTEUS MIRABILIS COLONY COUNT: >100,000 CFU/ML Organism 2 ESCHERICHIA COLI - ESBL PRO MIRABI ESCCOL ESB M.I.C. RX M.I.C. RX --------- --- --------- --- AMPICILLIN >=32 R >=32 R CEFAZOLIN 8 S >=64 R CEFTAZIDIME R CEFTRIAXONE <=1 S >=64 R CEFEPIME R ERTAPENEM <=0.5 S GENTAMICIN <=1 S <=1 S LEVOFLOXACIN 4 I >=8 R * MEROPENEM <=0.25 S <=0.25 S NITROFURANTOIN 128 R <=16 S TRIMETHOPRIM/SULFA >=320 R >=320 R PIPERACILLIN/TAZOBACTAM <=4 S <=4 S I spent 38 minutes on this patient today , and 21 mins was dedicated to counseling and care coordination. Discussed with all consultants, Charge nurse and RNs. Subjective Date patient seen: Nov 04, 2019 Time patient seen: 09:08 Constitutional: Denies: chills, diaphoresis, fever HEENT: Denies: double vision, ear pain Cardiovascular: Denies: edema, irregular heart rate, lightheadedness, palpitations Respiratory: Denies: orthopnea, shortness of breath, SOB with excertion, SOB at rest, sputum Gastrointestinal/Abdominal: Denies: abdomen distended, abdominal pain, black stools, tarry stools Genitourinary: Denies: discharge, flank pain, hematuria, incontinence Neurologic/Psychiatric: Denies: depressed, emotional problems, headache, numbness, paresthesia Endocrine: Denies: excessive sweating, flushing, intolerance to cold, intolerance to heat Hematologic/Lymphatic: Reports: anemia Allergies: Coded Allergies: No Known Allergies (Unverified , 08/15/19) Subjective He sates he feels fine. doing bed excises with his legs. Objective Last 24 Hour Vital Signs Date Time Temp Pulse Resp B/P (MAP) Pulse Ox O2 Delivery O2 Flow Rate FiO2 11/04/19 04:00 98.1 68 19 102/58 (73) 99 11/04/19 04:00 Room Air 11/04/19 04:00 70 11/04/19 00:00 61 11/04/19 00:00 98.1 61 19 105/60 (75) 100 11/04/19 00:00 Room Air 11/03/19 20:00 98.3 89 20 107/67 (80) 99 11/03/19 20:00 Room Air 11/03/19 16:00 68 11/03/19 16:00 98.6 83 20 126/67 (86) 97 11/03/19 16:00 Room Air 11/03/19 12:00 97.1 68 19 105/59 (74) 99 11/03/19 12:00 Room Air 11/03/19 11:54 68 Intake and Output 11/03/19 11/04/19 19:00 07:00 Intake Total 1192.416 ml 1010 ml Output Total 1420 ml 2100 ml Balance -227.584 ml -1090 ml Intake Oral 200 ml 260 ml IV Total 992.416 ml 750 ml Output Urine Total 1400 ml 2100 ml Stool Total 20 ml 0 ml # Bowel Movements 2 1 Laboratory Tests 11/03/19 11:55: Sodium Level 121L, Potassium Level 3.4L, Chloride Level 88L, Carbon Dioxide Level 25, Anion Gap 9, Blood Urea Nitrogen 12, Creatinine 0.5L, Estimat Glomerular Filtration Rate > 60, Glucose Level 127H, Calcium Level 8.7, Phosphorus Level 2.6, Magnesium Level 1.5L, Total Bilirubin 0.6, Aspartate Amino Transf (AST/SGOT) 14L, Alanine Aminotransferase (ALT/SGPT) 13, Alkaline Phosphatase 153H, Total Protein 6.8, Albumin 1.7L, Globulin 5.1, Albumin/ Globulin Ratio 0.3L Height (Feet): 5 Height (Inches): 7.00 Weight (Pounds): 104 General Appearance: WD/WN, no apparent distress, alert EENT: PERRL/EOMI Neck: non-tender, normal alignment, supple Cardiovascular: normal peripheral pulses, normal rate, regular rhythm, no gallop/murmur Respiratory/Chest: chest wall non-tender, lungs clear, normal breath sounds, no respiratory distress, no accessory muscle use Abdomen: normal bowel sounds, non tender, soft, no organomegaly, no mass Extremities: normal range of motion, other - chronic leg paralysis Neurologic: beef grader II-XII grossly normal, alert, oriented x 3, responsive, normal mood/affect Art Hensley M.D. Nov 04, 2019 09:12
--- NOTE | 2019-11-04 09:34 | Surgery Progress Note ---
Surgery Progress Note Subjective Symptoms: improved Objective Last 24 Hour Vital Signs Date Time Temp Pulse Resp B/P (MAP) Pulse Ox O2 Delivery O2 Flow Rate FiO2 11/04/19 04:00 98.1 68 19 102/58 (73) 99 11/04/19 04:00 Room Air 11/04/19 04:00 70 11/04/19 00:00 61 11/04/19 00:00 98.1 61 19 105/60 (75) 100 11/04/19 00:00 Room Air 11/03/19 20:00 98.3 89 20 107/67 (80) 99 11/03/19 20:00 Room Air 11/03/19 16:00 68 11/03/19 16:00 98.6 83 20 126/67 (86) 97 11/03/19 16:00 Room Air 11/03/19 12:00 97.1 68 19 105/59 (74) 99 11/03/19 12:00 Room Air 11/03/19 11:54 68 I&O Intake and Output 11/03/19 11/04/19 19:00 07:00 Intake Total 1192.416 ml 1010 ml Output Total 1420 ml 2100 ml Balance -227.584 ml -1090 ml Intake Oral 200 ml 260 ml IV Total 992.416 ml 750 ml Output Urine Total 1400 ml 2100 ml Stool Total 20 ml 0 ml # Bowel Movements 2 1 Dressing: saturated Wound: clean Cardiovascular: RSR Respiratory: clear Abdomen: soft, non-tender, present bowel sounds Extremities: no edema, no tenderness, no cyanosis Laboratory Tests Test 11/03/19 11:55 Sodium Level 121 MMOL/L (136-145) L Potassium Level 3.4 MMOL/L (3.5-5.1) L Chloride Level 88 MMOL/L (98-107) L Carbon Dioxide Level 25 MMOL/L (21-32) Anion Gap 9 mmol/L (5-15) Blood Urea Nitrogen 12 mg/dL (7-18) Creatinine 0.5 MG/DL (0.55-1.30) L Estimat Glomerular Filtration Rate > 60 mL/min (>60) Glucose Level 127 MG/DL (74-106) H Calcium Level 8.7 MG/DL (8.5-10.1) Phosphorus Level 2.6 MG/DL (2.5-4.9) Magnesium Level 1.5 MG/DL (1.8-2.4) L Total Bilirubin 0.6 MG/DL (0.2-1.0) Aspartate Amino Transf (AST/SGOT) 14 U/L (15-37) L Alanine Aminotransferase (ALT/SGPT) 13 U/L (12-78) Alkaline Phosphatase 153 U/L (46-116) H Total Protein 6.8 G/DL (6.4-8.2) Albumin 1.7 G/DL (3.4-5.0) L Globulin 5.1 g/dL Albumin/Globulin Ratio 0.3 (1.0-2.7) L Plan Problems: (1) Abdominal distension Assessment & Plan: abd distention soft non tender ostomy viable and reduced KUB ordered pending results improved comfortable no complaints okay for diet s tolerated d/c planning much improved There is an inferior vena cava filter in place. Bowel gas pattern is unremarkable. Considerable stool is seen in the transverse and distal colon. There is extensive pelvic deformity, with loss of the left femoral head, chronic dislocation of the left femur, and extensive pelvic deformity, particularly on the left. [place] project over the upper pelvis Impression: Possible constipation. 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 [place] Shaped, Full Thickness Sacral Pressure Injury which extends into L ischium. (L)15.4cm x (W)18cm x (D)2.4cm, Undermining clockwise 10-2 by 7.7cm @ 11o'clock. Base of wound is moist,pink with scattered slough at base of wound. Bone is palpable at the Base. No odor or exudate noted. Scattered partial thickness wounds and Serous filled blisters noted to R trochanteric /R Hip areas. Historical scar noted to L groin, L Hip L Buttocks. Bony protrusion noted at L Hip. Full thickness Pressure Injury R Ischium(L)5.4cm x(W)6.9cm x (D)1.8cm, Undermining clockwise 1-4 by 2.7cm @2o'clock, Tunneling@7o'clock 2.9cm. Base of wound is moist pink with scattered slough. Scattered slough noted along borders. NO odor or exudate noted. Stable dry eschar noted to medial R knee 0.7cm x (W)0.4cm. Periwound is erythematous and indurated. No elevation in skin temp noted. L heel has shaved appearance secondary to Hx of Pressure Injuries. Base of heel is pale pink. Bone is palpable. Small area of slough noted within compromised area(L)0.6cm x (W)0.8cm. L Heel Also has shaved appearance with hypertrophic scarring. Base of compromised area is pale pink, Bone is palpable, with scattered loose, dry and scaly skin. Tx.Plan: Cleanse Sacral Wound and R Ischial wounds with Dakin's 0.125% gian. Loosely pack wounds with Hydrogel impregnated Kerlix. Apply Moisture Barrier Paste periwound. Cover with ABD Pads secure with Tegaderm drsg.Daily and prn. Apply Triad Paste to R Hip/R trochanteric areas.Cover with Optifoam drsg. Change every 7 days and prn. Apply Betadine to Medial R Knee. Cover with Optifoam drsg. Change every 7 days and prn. Apply Betadine to R and L Heels. Cover each Heel with Optifoam drsgs. Change every 7 days and prn. Cover Bony Prominences as needed with Optifoam drsgs. Reposition at least every 2 hours or as tolerated. Place Pillow between knees. Off-load heels with pillow. APM/SUMI Mattress overlay (15) SEAN (acute kidney injury) (16) Ileostomy prolapse Assessment & Plan: currently reduced but abd distended pending films films reviewed improved okay for diet d/c planning Cornelius Salgado Nov 04, 2019 09:34
[2019-11-04 12:00] VITALS: BP 90/48
[2019-11-04 12:34] LABS: BASOPHILS % (AUTO) 2.4 % (0.0-2.0); EOSINOPHILS % (AUTO) 1.7 % (0.0-3.0); HEMATOCRIT 29.1 % (42.0-52.0); HEMOGLOBIN 9.3 G/DL (14.2-18.0); LYMPHOCYTES % (AUTO) 25.3 % (20.0-45.0); MEAN CORPUSCULAR VOLUME 85 FL (80-99); MONOCYTES % (AUTO) 11.6 % (1.0-10.0); PLATELET COUNT 498 K/UL (150-450); RED BLOOD COUNT 3.42 M/UL (4.70-6.10); RED CELL DISTRIBUTION WIDTH 17.4 % (11.6-14.8); WHITE BLOOD COUNT 7.3 K/UL (4.8-10.8)
[2019-11-04 12:48] LABS: ANION GAP 11 mmol/L (5-15); BLOOD UREA NITROGEN 13 mg/dL (7-18); CALCIUM 9.2 MG/DL (8.5-10.1); CARBON DIOXIDE 24 MMOL/L (21-32); CHLORIDE 96 MMOL/L (98-107); CREATININE 0.5 MG/DL (0.55-1.30); PHOSPHORUS 3.7 MG/DL (2.5-4.9); POTASSIUM 4.1 MMOL/L (3.5-5.1); SODIUM 131 MMOL/L (136-145)
--- NOTE | 2019-11-04 13:49 | Cardiac Electrophysiology PN ---
Assessment/Plan Assessment/Plan 1. S/P Septic shock.Resolved On Midodrine, antibiotic and fluid 2. Bradycardia. Resolved. 3. Paraplegia. 4. Urinary tract infection, on broad-spectrum IV antibiotic. 5. Decubitus ulcers with sacral decubitus. 6. S/P Ileostomy/ 7. Polyuria, DI. On NS and DDAVP. KAMI RN DC today Subjective Subjective Alert in NAD off pressors. DC to [facility] today Objective Last 24 Hour Vital Signs Date Time Temp Pulse Resp B/P (MAP) Pulse Ox O2 Delivery O2 Flow Rate FiO2 11/04/19 12:00 Room Air 11/04/19 08:00 96.9 88 18 90/49 (63) 97 11/04/19 08:00 Room Air 11/04/19 07:50 80 11/04/19 04:00 98.1 68 19 102/58 (73) 99 11/04/19 04:00 Room Air 11/04/19 04:00 70 11/04/19 00:00 61 11/04/19 00:00 98.1 61 19 105/60 (75) 100 11/04/19 00:00 Room Air 11/03/19 20:00 98.3 89 20 107/67 (80) 99 11/03/19 20:00 Room Air 11/03/19 16:00 68 11/03/19 16:00 98.6 83 20 126/67 (86) 97 11/03/19 16:00 Room Air Intake and Output 11/03/19 11/04/19 19:00 07:00 Intake Total 1192.416 ml 1010 ml Output Total 1420 ml 2100 ml Balance -227.584 ml -1090 ml Intake Oral 200 ml 260 ml IV Total 992.416 ml 750 ml Output Urine Total 1400 ml 2100 ml Stool Total 20 ml 0 ml # Bowel Movements 2 1 Laboratory Tests Test 11/04/19 12:20 White Blood Count 7.3 K/UL (4.8-10.8) Red Blood Count 3.42 M/UL (4.70-6.10) L Hemoglobin 9.3 G/DL (14.2-18.0) L Hematocrit 29.1 % (42.0-52.0) L Mean Corpuscular Volume 85 FL (80-99) Mean Corpuscular Hemoglobin 27.2 PG (27.0-31.0) Mean Corpuscular Hemoglobin Concent 31.9 G/DL (32.0-36.0) L Red Cell Distribution Width 17.4 % (11.6-14.8) H Platelet Count 498 K/UL (150-450) H Mean Platelet Volume 4.8 FL (6.5-10.1) L Neutrophils (%) (Auto) 59.0 % (45.0-75.0) Lymphocytes (%) (Auto) 25.3 % (20.0-45.0) Monocytes (%) (Auto) 11.6 % (1.0-10.0) H Eosinophils (%) (Auto) 1.7 % (0.0-3.0) Basophils (%) (Auto) 2.4 % (0.0-2.0) H Sodium Level 131 MMOL/L (136-145) L Potassium Level 4.1 MMOL/L (3.5-5.1) Chloride Level 96 MMOL/L (98-107) L Carbon Dioxide Level 24 MMOL/L (21-32) Anion Gap 11 mmol/L (5-15) Blood Urea Nitrogen 13 mg/dL (7-18) Creatinine 0.5 MG/DL (0.55-1.30) L Estimat Glomerular Filtration Rate > 60 mL/min (>60) Glucose Level 99 MG/DL (74-106) Calcium Level 9.2 MG/DL (8.5-10.1) Phosphorus Level 3.7 MG/DL (2.5-4.9) Magnesium Level 2.2 MG/DL (1.8-2.4) Microbiology Date/Time Source Procedure Growth Status 11/02/19 13:30 Nasopharynx SARS-CoV-2 RdRp Gene Assay - Final Complete 11/02/19 17:50 Urine,Clean Catch Urine Culture - Preliminary Yeast Species Resulted 11/02/19 17:50 Indwelling Cath Urine Culture - Preliminary Yeast Species Resulted 11/03/19 08:00 Catheter Site Catheter Tip Culture - Preliminary Resulted Objective HEAD AND NECK: No JVD. Right IJ central line. LUNGS: Coarse rhonchi. CARDIOVASCULAR: Regular S1 and S2 with no gallop. ABDOMEN: Soft.S/P Ileostomy EXTREMITIES: No pitting edema, however, has pressure ulcers. Carloz Estes MD Nov 04, 2019 13:49
--- NOTE | 2019-11-04 14:10 | Infectious Diseases Prog Note ---
Assessment/Plan Assessment/Plan ASSESSMENT AND PLAN: 1. sepsis, shock, proteus uti, esbl e.coli uti, possible aspiration pna/hcap vs cap, sacral wound - ? infected, mrsa and vre colonization fevers, ? line infection, fungal uti, ? fungemia - meropenem and vancomycin, day # 12/14 antibiotics - diflucan - day # 3 - monitor labs and chest x-ray - f/u on cultures - off pressors now - fevers better - line removed 2. ICU care. 3. Sacral wound -wound mostly clean, management per surgery 4. Ostomy malfunction - per surgery 5. Hypertension. 6. Paraplegia. 7. Anemia. 8. History of decubitus ulcer, rule out infection. Infectious diseases is following. The patient on antibiotics. 9. Hypertension treatment per primary care team. 10. Continue treatment per primary consultants. 11. No known drug allergies. 12. Social history is negative. 13. Family history is noncontributory. 14. MAR was noted. 15. Case discussed with RN. Subjective Constitutional: Denies: fever HEENT: Denies: congestion Respiratory: Denies: shortness of breath Cardiovascular: Denies: chest pain Gastrointestinal/Abdominal: Denies: nausea, vomiting, diarrhea Genitourinary: Reports: other - + donohue Neurologic: Denies: headache Psychiatric: Denies: depression Skin: Denies: rash Hematologic: Denies: bleeding Musculoskeletal: Denies: pain Allergies: Coded Allergies: No Known Allergies (Unverified , 08/15/19) Objective Last 24 Hour Vital Signs Date Time Temp Pulse Resp B/P (MAP) Pulse Ox O2 Delivery O2 Flow Rate FiO2 11/04/19 12:00 Room Air 11/04/19 12:00 98.4 61 20 90/48 (62) 95 11/04/19 08:00 96.9 88 18 90/49 (63) 97 11/04/19 08:00 Room Air 11/04/19 07:50 80 11/04/19 04:00 98.1 68 19 102/58 (73) 99 11/04/19 04:00 Room Air 11/04/19 04:00 70 11/04/19 00:00 61 11/04/19 00:00 98.1 61 19 105/60 (75) 100 11/04/19 00:00 Room Air 11/03/19 20:00 98.3 89 20 107/67 (80) 99 11/03/19 20:00 Room Air 11/03/19 16:00 68 11/03/19 16:00 98.6 83 20 126/67 (86) 97 11/03/19 16:00 Room Air Height (Feet): 5 Height (Inches): 7.00 Weight (Pounds): 104 General Appearance: no acute distress HEENT: normocephalic, atraumatic, anicteric, mucous membranes moist Respiratory/Chest: lungs clear, normal breath sounds, no respiratory distress, no accessory muscle use Cardiovascular: normal rate, regular rhythm, no gallop/murmur Abdomen: normal bowel sounds, soft, non tender, no organomegaly, non distended Genitourinary: other - + donohue - urine clear Extremities: no cyanosis Skin: no rash Neurologic/Psychiatric: rn mds coordinator II-XII grossly normal, alert, responsive Lymphatic: no neck adenopathy Musculoskeletal: no effusion Chest x-ray - 10/25/19 - Procedure: XRAY Chest 1v Indication: Shortness of breath Technique: One view of the chest Comparison: 10/23/2019 Findings: There are bilateral basilar infiltrates, which appear new or increased since prior study. There is some atelectasis at the left lung base as well. Right jugular central venous catheter remains. The heart size is normal. Impression: New/increased bilateral basilar infiltrates, since prior study 2019 Chest x-ray - 10/27/19 - Procedure: XRAY Chest 1v Indication: Shortness of breath Technique: One view of the chest Comparison: 10/25/2019 Findings: There is atelectasis possibly some focal consolidation at the right lung base. Atelectatic changes previously demonstrated at the left lung base have largely cleared. Right jugular central venous catheter remains. The heart size is normal. Impression: Improving left basilar atelectasis. Otherwise little size changer 2 days findings as noted Chest x-ray - 10/29/19 - FINDINGS: Lungs: Persistent subsegmental atelectasis in bilateral lower lungs, not significant changed compared to the prior exam. No new consolidation is seen. Pleural space: Unremarkable. The costophrenic angles are sharp. No visible pneumothorax. Heart: Unremarkable. No cardiomegaly. Mediastinum: Unremarkable. Bones/joints: Unremarkable. Vasculature: Mild atherosclerotic calcifications are noted within the aortic arch. Tubes, lines and devices: Stable positioning of a right IJ central venous catheter with the tip in the SVC. Telemetry leads overlie the thorax. IMPRESSION: Persistent subsegmental atelectasis in bilateral lower lungs, not significantly changed compared to the prior exam. Chest x-rasy - 11/03/19 - Procedure: XRAY Chest 1v Indication: Cough Technique: One view of the chest Comparison: 10/29/2019 Findings: There are increased atelectatic changes at the lung bases. Interim removal of previously demonstrated central venous catheter. The pleural spaces are clear. The heart size is normal. Impression: Increasing bilateral basilar atelectasis Interim central venous catheter removal. Microbiology Date/Time Source Procedure Growth Status 11/02/19 13:30 Nasopharynx SARS-CoV-2 RdRp Gene Assay - Final Complete 11/02/19 17:50 Urine,Clean Catch Urine Culture - Preliminary Yeast Species Resulted 11/02/19 17:50 Indwelling Cath Urine Culture - Preliminary Yeast Species Resulted 11/03/19 08:00 Catheter Site Catheter Tip Culture - Preliminary Resulted Laboratory Tests Test 11/04/19 12:20 White Blood Count 7.3 K/UL (4.8-10.8) Red Blood Count 3.42 M/UL (4.70-6.10) L Hemoglobin 9.3 G/DL (14.2-18.0) L Hematocrit 29.1 % (42.0-52.0) L Mean Corpuscular Volume 85 FL (80-99) Mean Corpuscular Hemoglobin 27.2 PG (27.0-31.0) Mean Corpuscular Hemoglobin Concent 31.9 G/DL (32.0-36.0) L Red Cell Distribution Width 17.4 % (11.6-14.8) H Platelet Count 498 K/UL (150-450) H Mean Platelet Volume 4.8 FL (6.5-10.1) L Neutrophils (%) (Auto) 59.0 % (45.0-75.0) Lymphocytes (%) (Auto) 25.3 % (20.0-45.0) Monocytes (%) (Auto) 11.6 % (1.0-10.0) H Eosinophils (%) (Auto) 1.7 % (0.0-3.0) Basophils (%) (Auto) 2.4 % (0.0-2.0) H Sodium Level 131 MMOL/L (136-145) L Potassium Level 4.1 MMOL/L (3.5-5.1) Chloride Level 96 MMOL/L (98-107) L Carbon Dioxide Level 24 MMOL/L (21-32) Anion Gap 11 mmol/L (5-15) Blood Urea Nitrogen 13 mg/dL (7-18) Creatinine 0.5 MG/DL (0.55-1.30) L Estimat Glomerular Filtration Rate > 60 mL/min (>60) Glucose Level 99 MG/DL (74-106) Calcium Level 9.2 MG/DL (8.5-10.1) Phosphorus Level 3.7 MG/DL (2.5-4.9) Magnesium Level 2.2 MG/DL (1.8-2.4) Current Medications Medications (Trade) Dose Ordered Sig/Mya Route PRN Reason Start Time Stop Time Status Last Admin Dose Admin Acetaminophen (Tylenol) 650 mg Q4H PRN ORAL Mild Pain (Pain Scale 1-3) 11/04/19 11:00 11/30/19 22:59 Acetaminophen/ Hydrocodone Bitart (Edwards 5/325) 1 tab Q4H PRN ORAL Moderate Pain (Pain Scale 4-6) 11/04/19 07:57 11/07/19 07:56 Acetaminophen/ Hydrocodone Bitart (Edwards 5/325) 2 tab Q4H PRN ORAL Severe Pain (Pain Scale 7-10) 11/04/19 07:57 11/07/19 07:56 11/04/19 08:52 Ascorbic Acid (Vitamin C) 500 mg DAILY ORAL 11/04/19 09:00 11/23/19 08:59 11/04/19 08:42 Baclofen (Lioresal) 10 mg THREE TIMES A DAY ORAL 11/04/19 09:00 11/22/19 17:59 11/04/19 13:59 Clonazepam (KlonoPIN) 0.5 mg Q8H PRN ORAL For Anxiety 11/04/19 07:54 11/07/19 07:53 Dextrose (Dextrose 50%) 25 ml Q30M PRN IV Hypoglycemia 11/04/19 08:00 01/21/20 17:29 Dextrose (Dextrose 50%) 50 ml Q30M PRN IV Hypoglycemia 11/04/19 08:00 01/21/20 17:29 Diphenhydramine HCl (Benadryl) 25 mg Q6H PRN ORAL Itching/Pruritis 11/04/19 07:55 11/22/19 07:54 Docusate Sodium (Colace) 100 mg EVERY 12 HOURS ORAL 11/04/19 09:00 11/22/19 20:59 11/04/19 08:43 Famotidine (Pepcid) 20 mg DAILY ORAL 11/04/19 09:00 01/28/20 09:29 11/04/19 08:43 Ferrous Sulfate (Feosol) 325 mg DAILY ORAL 11/04/19 09:00 01/22/20 08:59 11/04/19 08:43 Fluconazole/ Sodium Chloride 200 ml @ 200 mls/hr Q24H IV 11/04/19 17:00 11/09/19 16:59 Gabapentin (Neurontin) 400 mg Q8HR ORAL 11/04/19 14:00 12/03/19 21:59 Heparin Sodium (Porcine) (Heparin 5000 units/ml) 5,000 units EVERY 12 HOURS SUBQ 11/04/19 09:00 12/08/19 08:59 11/04/19 08:46 Meropenem 1 gm/ Sodium Chloride 100 ml @ 200 mls/hr Q8H IVPB 11/04/19 10:00 11/05/19 09:59 11/04/19 10:00 Midodrine (Pro-Amatine) 10 mg EVERY 8 HOURS ORAL 11/04/19 14:00 01/21/20 17:59 Ondansetron HCl (Zofran) 4 mg Q6H PRN IVP Nausea & Vomiting 11/04/19 07:58 11/22/19 07:57 Sodium Hypochlorite (Dakin's Quarter Strength) 1 applic DAILY TOPIC 11/04/19 09:00 11/24/19 08:59 11/04/19 08:47 Sodium Chloride 1,000 ml @ 75 mls/hr [id number] IV 11/04/19 08:00 11/25/19 11:26 Vancomycin HCl (Vanco pharmacy to dose) 1 ea DAILY PRN MISC Per rx protocol 11/04/19 09:00 11/28/19 16:14 Vancomycin HCl 1 gm/Dextrose 275 ml @ 183.708 mls/hr Q12H IVPB 11/04/19 08:00 11/05/19 07:59 11/04/19 08:00 Zinc Sulfate (Zinc Sulfate) 220 mg DAILY ORAL 11/04/19 09:00 01/22/20 08:59 11/04/19 08:43 Sharif Painting MD Nov 04, 2019 14:10
[2019-11-04 16:00] VITALS: BP 116/67
[2019-11-04 20:00] VITALS: BP 110/60
--- NOTE | 2019-11-04 20:34 | Nephrology Progress Note ---
Assessment/Plan Plan #Polyuria - r/o DI vs dopamine effect??- however sodium remains in normal range #Shock #UTI # infected sacral pressure ulcer #Acute metabolic encephalopathy #Paraplegia #Sacral pressure ulcer #Hypokalemia #Anemia - DC UVF - DC desmopressin - assess UOP over the next 24 hours - continue midodrine 10 TID - antibiotics per ID - monitor lytes - monitor for vanoc toxicity - avoid nephrotoxins - daily weights - strict I&Os time spent 70 min- greater than 50% on care coordination and counseling Subjective ROS Limited/Unobtainable: No Constitutional: Reports: weakness HEENT: Denies: no symptoms, eye pain, blurred vision, tearing, double vision, ear pain, ear discharge, nose pain, nose congestion, throat pain, throat swelling, mouth pain, mouth swelling, other Genitourinary: Denies: no symptoms, burning, discharge, frequency, flank pain, hematuria, incontinence, pain, urgency, other Subjective sodium 121-> 131 holding desmopressin will DC IVF and assess UOP Objective Objective Last 24 Hour Vital Signs Date Time Temp Pulse Resp B/P (MAP) Pulse Ox O2 Delivery O2 Flow Rate FiO2 11/04/19 16:00 Room Air 11/04/19 16:00 98.1 86 18 116/67 (83) 97 11/04/19 15:27 84 11/04/19 12:00 Room Air 11/04/19 12:00 63 11/04/19 12:00 98.4 61 20 90/48 (62) 95 11/04/19 08:00 96.9 88 18 90/49 (63) 97 11/04/19 08:00 Room Air 11/04/19 07:50 80 11/04/19 04:00 98.1 68 19 102/58 (73) 99 11/04/19 04:00 Room Air 11/04/19 04:00 70 11/04/19 00:00 61 11/04/19 00:00 98.1 61 19 105/60 (75) 100 11/04/19 00:00 Room Air Intake and Output 11/03/19 11/04/19 19:00 07:00 Intake Total 1192.416 ml 1010 ml Output Total 1420 ml 2100 ml Balance -227.584 ml -1090 ml Intake Oral 200 ml 260 ml IV Total 992.416 ml 750 ml Output Urine Total 1400 ml 2100 ml Stool Total 20 ml 0 ml # Bowel Movements 2 1 Laboratory Tests 11/04/19 12:20: White Blood Count 7.3, Red Blood Count 3.42L, Hemoglobin 9.3L, Hematocrit 29.1L , Mean Corpuscular Volume 85, Mean Corpuscular Hemoglobin 27.2, Mean Corpuscular Hemoglobin Concent 31.9L, Red Cell Distribution Width 17.4H, Platelet Count 498H, Mean Platelet Volume 4.8L, Neutrophils (%) (Auto) 59.0, Lymphocytes (%) (Auto) 25.3, Monocytes (%) (Auto) 11.6H, Eosinophils (%) (Auto) 1.7, Basophils (%) (Auto) 2.4H, Sodium Level 131L, Potassium Level 4.1, Chloride Level 96L, Carbon Dioxide Level 24, Anion Gap 11, Blood Urea Nitrogen 13, Creatinine 0.5L, Estimat Glomerular Filtration Rate > 60, Glucose Level 99, Calcium Level 9.2, Phosphorus Level 3.7, Magnesium Level 2.2 Height (Feet): 5 Height (Inches): 7.00 Weight (Pounds): 104 Sienna Georges M.D. Nov 04, 2019 20:34
[2019-11-05] VITALS: BP 101/59
[2019-11-05 04:00] VITALS: BP 105/62
[2019-11-05] MEDS: Midodrine 10mg tab ORAL SCH ×3 (05:22→21:03)
[2019-11-05] MEDS: HYDROcodone/Acetamin 5/325 tab ORAL PRN ×3 (06:22→18:36)
[2019-11-05 08:00] VITALS: BP 94/51
[2019-11-05] MEDS: Docusate 100mg cap ORAL SCH ×2 (08:25→21:03)
[2019-11-05] MEDS: Zinc Sulfate 220mg ORAL SCH (08:26)
[2019-11-05] MEDS: Ascorbic Acid 500mg tab ORAL SCH (08:26)
[2019-11-05] MEDS: Heparin 5000 units/ml inj SUBQ SCH ×2 (08:31→21:09)
--- NOTE | 2019-11-05 09:06 | General Progress Note ---
Assessment/Plan Problem List: (1) Anemia ICD Codes: D64.9 - Anemia, unspecified SNOMED: 238768856 (2) Encephalopathy ICD Codes: G93.40 - Encephalopathy, unspecified SNOMED: 43846824 (3) Drug (multiple) resistant infection SNOMED: 58195701, 13639864248163 (4) Urinary tract infection in male ICD Codes: N39.0 - Urinary tract infection, site not specified SNOMED: 25727701, 453499547 (5) Hypokalemia ICD Codes: E87.6 - Hypokalemia SNOMED: 74292886 (6) Femur fracture ICD Codes: S72.90XA - Unspecified fracture of unspecified femur, initial encounter for closed fracture SNOMED: 72895248 (7) Hyponatremia ICD Codes: E87.1 - Hypo-osmolality and hyponatremia SNOMED: 80465646 (8) Sepsis ICD Codes: A41.9 - Sepsis, unspecified organism SNOMED: 64769614 (9) UTI (urinary tract infection) ICD Codes: N39.0 - Urinary tract infection, site not specified SNOMED: 61743161 (10) Hypotension ICD Codes: I95.9 - Hypotension, unspecified SNOMED: 11672172 (11) Decubital ulcer ICD Codes: L89.90 - Pressure ulcer of unspecified site, unspecified stage SNOMED: 416789504 (12) SEAN (acute kidney injury) ICD Codes: N17.9 - Acute kidney failure, unspecified SNOMED: 5416998, 11750050 Status: stable Assessment/Plan: Patient has been refusing labs but on day of DC BMP obtained and showed hyponatremia and other electrolyte deficiencies. Will replete and try for DC today. Pateint also has isolated fever. Pleas see DC summary for full recs. #Septic shock- improving #Proteus UTI #Acute metabolic encephalopathy -improving #Paraplegia #Sacral pressure ulcer, present on admit -DC planning -Off vasopressors -off amikacin, continue meropenem and vancomycin -Spoke with surgery, sacral pressure ulcer does not appear to be infected -Local wound care and offloading #Sinus Bradycardia - resolved -continue telemetry -EP following #Hyponatremia -worsening #Hypokalemia -improving -refusing labs -Replete when necessary -DC DDAVP #Anemia, acute on chronic -2 units RBC 10/28 -Hematology following Full Code URINE CULTURE Final COMMENTS: ESBL CALLED TO LOBO AGUILAR RN BY DEIDRA MORGAN,CLS @0132 10/28/19 Organism 1 PROTEUS MIRABILIS COLONY COUNT: >100,000 CFU/ML Organism 2 ESCHERICHIA COLI - ESBL PRO MIRABI ESCCOL ESB M.I.C. RX M.I.C. RX --------- --- --------- --- AMPICILLIN >=32 R >=32 R CEFAZOLIN 8 S >=64 R CEFTAZIDIME R CEFTRIAXONE <=1 S >=64 R CEFEPIME R ERTAPENEM <=0.5 S GENTAMICIN <=1 S <=1 S LEVOFLOXACIN 4 I >=8 R * MEROPENEM <=0.25 S <=0.25 S NITROFURANTOIN 128 R <=16 S TRIMETHOPRIM/SULFA >=320 R >=320 R PIPERACILLIN/TAZOBACTAM <=4 S <=4 S I spent 35 minutes on this patient today , and 20 mins was dedicated to counseling and care coordination. Discussed with all consultants, Charge nurse and RNs. Subjective Date patient seen: Nov 05, 2019 Time patient seen: 07:30 ROS Limited/Unobtainable: Yes Constitutional: Denies: diaphoresis, fever, malaise HEENT: Denies: blurred vision, double vision, mouth pain, mouth swelling Cardiovascular: Denies: chest pain, edema, irregular heart rate, lightheadedness Respiratory: Denies: orthopnea, shortness of breath, SOB with excertion, SOB at rest Gastrointestinal/Abdominal: Denies: abdomen distended, abdominal pain, black stools Genitourinary: Denies: discharge, frequency, flank pain, hematuria Neurologic/Psychiatric: Denies: depressed, emotional problems, headache, numbness Endocrine: Denies: excessive sweating, flushing, intolerance to cold, intolerance to heat Hematologic/Lymphatic: Reports: anemia Allergies: Coded Allergies: No Known Allergies (Unverified , 08/15/19) Subjective He sates he feels fine and wants to go back to SNF. Objective Last 24 Hour Vital Signs Date Time Temp Pulse Resp B/P (MAP) Pulse Ox O2 Delivery O2 Flow Rate FiO2 11/05/19 08:00 101.5 84 18 94/51 (65) 98 8/23/20 04:00 98.2 72 19 105/62 (76) 95 11/05/19 04:00 Room Air 11/05/19 04:00 79 11/05/19 00:00 98.0 70 18 101/59 (73) 98 11/05/19 00:00 74 11/05/19 00:00 Room Air 11/04/19 21:00 Room Air 11/04/19 20:00 86 11/04/19 20:00 98.6 74 18 110/60 (77) 96 11/04/19 16:00 Room Air 11/04/19 16:00 98.1 86 18 116/67 (83) 97 11/04/19 15:27 84 11/04/19 12:00 Room Air 11/04/19 12:00 63 11/04/19 12:00 98.4 61 20 90/48 (62) 95 Intake and Output 11/04/19 11/05/19 19:00 07:00 Intake Total 360 ml 400 ml Output Total 150 ml 1400 ml Balance 210 ml -1000 ml Intake Oral 360 ml 400 ml Output Urine Total 150 ml 1400 ml # Bowel Movements 1 1 Laboratory Tests 11/04/19 12:20: White Blood Count 7.3, Red Blood Count 3.42L, Hemoglobin 9.3L, Hematocrit 29.1L , Mean Corpuscular Volume 85, Mean Corpuscular Hemoglobin 27.2, Mean Corpuscular Hemoglobin Concent 31.9L, Red Cell Distribution Width 17.4H, Platelet Count 498H, Mean Platelet Volume 4.8L, Neutrophils (%) (Auto) 59.0, Lymphocytes (%) (Auto) 25.3, Monocytes (%) (Auto) 11.6H, Eosinophils (%) (Auto) 1.7, Basophils (%) (Auto) 2.4H, Sodium Level 131L, Potassium Level 4.1, Chloride Level 96L, Carbon Dioxide Level 24, Anion Gap 11, Blood Urea Nitrogen 13, Creatinine 0.5L, Estimat Glomerular Filtration Rate > 60, Glucose Level 99, Calcium Level 9.2, Phosphorus Level 3.7, Magnesium Level 2.2 Height (Feet): 5 Height (Inches): 7.00 Weight (Pounds): 106 General Appearance: no apparent distress, alert, cachetic EENT: normal ENT inspection, TMs normal Neck: normal alignment, supple, normal inspection Cardiovascular: normal peripheral pulses, normal rate, regular rhythm, no gallop/murmur, no JVD Respiratory/Chest: chest wall non-tender, lungs clear, no respiratory distress , no accessory muscle use Abdomen: non tender, soft, no organomegaly, no mass Extremities: other - leg paralysis Edema: no edema noted Arm (L), no edema noted Arm (R), no edema noted Leg (L), no edema noted Leg (R), no edema noted Pedal (L), no edema noted Pedal (R), no edema noted Generalized Neurologic: pharmacist's aide II-XII grossly normal, abnormal gait, alert, oriented x 3, responsive, normal mood/affect Skin: normal pigmentation, warm/dry, no diaphoresis Art Hensley M.D. Nov 05, 2019 09:06
--- NOTE | 2019-11-05 09:25 | Surgery Progress Note ---
Surgery Progress Note Subjective Additional Comments improved labs improved comfortable no complaints cxr noted needs breathing treatment Objective Last 24 Hour Vital Signs Date Time Temp Pulse Resp B/P (MAP) Pulse Ox O2 Delivery O2 Flow Rate FiO2 11/05/19 08:00 101.5 84 18 94/51 (65) 98 11/05/19 04:00 98.2 72 19 105/62 (76) 95 11/05/19 04:00 Room Air 11/05/19 04:00 79 11/05/19 00:00 98.0 70 18 101/59 (73) 98 11/05/19 00:00 74 11/05/19 00:00 Room Air 11/04/19 21:00 Room Air 11/04/19 20:00 86 11/04/19 20:00 98.6 74 18 110/60 (77) 96 11/04/19 16:00 Room Air 11/04/19 16:00 98.1 86 18 116/67 (83) 97 11/04/19 15:27 84 11/04/19 12:00 Room Air 11/04/19 12:00 63 11/04/19 12:00 98.4 61 20 90/48 (62) 95 I&O Intake and Output 11/04/19 11/05/19 19:00 07:00 Intake Total 360 ml 400 ml Output Total 150 ml 1400 ml Balance 210 ml -1000 ml Intake Oral 360 ml 400 ml Output Urine Total 150 ml 1400 ml # Bowel Movements 1 1 Dressing: other Wound: other Cardiovascular: RSR Respiratory: decreased breath sounds Abdomen: soft, non-tender, present bowel sounds Extremities: no tenderness, no cyanosis Laboratory Tests Test 11/04/19 12:20 White Blood Count 7.3 K/UL (4.8-10.8) Red Blood Count 3.42 M/UL (4.70-6.10) L Hemoglobin 9.3 G/DL (14.2-18.0) L Hematocrit 29.1 % (42.0-52.0) L Mean Corpuscular Volume 85 FL (80-99) Mean Corpuscular Hemoglobin 27.2 PG (27.0-31.0) Mean Corpuscular Hemoglobin Concent 31.9 G/DL (32.0-36.0) L Red Cell Distribution Width 17.4 % (11.6-14.8) H Platelet Count 498 K/UL (150-450) H Mean Platelet Volume 4.8 FL (6.5-10.1) L Neutrophils (%) (Auto) 59.0 % (45.0-75.0) Lymphocytes (%) (Auto) 25.3 % (20.0-45.0) Monocytes (%) (Auto) 11.6 % (1.0-10.0) H Eosinophils (%) (Auto) 1.7 % (0.0-3.0) Basophils (%) (Auto) 2.4 % (0.0-2.0) H Sodium Level 131 MMOL/L (136-145) L Potassium Level 4.1 MMOL/L (3.5-5.1) Chloride Level 96 MMOL/L (98-107) L Carbon Dioxide Level 24 MMOL/L (21-32) Anion Gap 11 mmol/L (5-15) Blood Urea Nitrogen 13 mg/dL (7-18) Creatinine 0.5 MG/DL (0.55-1.30) L Estimat Glomerular Filtration Rate > 60 mL/min (>60) Glucose Level 99 MG/DL (74-106) Calcium Level 9.2 MG/DL (8.5-10.1) Phosphorus Level 3.7 MG/DL (2.5-4.9) Magnesium Level 2.2 MG/DL (1.8-2.4) Plan Problems: (1) Abdominal distension Assessment & Plan: abd distention soft non tender ostomy viable and reduced KUB ordered pending results improved comfortable no complaints okay for diet s tolerated d/c planning much improved There is an inferior vena cava filter in place. Bowel gas pattern is unremarkable. Considerable stool is seen in the transverse and distal colon. There is extensive pelvic deformity, with loss of the left femoral head, chronic dislocation of the left femur, and extensive pelvic deformity, particularly on the left. Miller project over the upper pelvis Impression: Possible constipation. 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 [place] Shaped, Full Thickness Sacral Pressure Injury which extends into L ischium. (L)15.4cm x (W)18cm x (D)2.4cm, Undermining clockwise 10-2 by 7.7cm @ 11o'clock. Base of wound is moist,pink with scattered slough at base of wound. Bone is palpable at the Base. No odor or exudate noted. Scattered partial thickness wounds and Serous filled blisters noted to R trochanteric /R Hip areas. Historical scar noted to L groin, L Hip L Buttocks. Bony protrusion noted at L Hip. Full thickness Pressure Injury R Ischium(L)5.4cm x(W)6.9cm x (D)1.8cm, Undermining clockwise 1-4 by 2.7cm @2o'clock, Tunneling@7o'clock 2.9cm. Base of wound is moist pink with scattered slough. Scattered slough noted along borders. NO odor or exudate noted. Stable dry eschar noted to medial R knee 0.7cm x (W)0.4cm. Periwound is erythematous and indurated. No elevation in skin temp noted. L heel has shaved appearance secondary to Hx of Pressure Injuries. Base of heel is pale pink. Bone is palpable. Small area of slough noted within compromised area(L)0.6cm x (W)0.8cm. L Heel Also has shaved appearance with hypertrophic scarring. Base of compromised area is pale pink, Bone is palpable, with scattered loose, dry and scaly skin. Tx.Plan: Cleanse Sacral Wound and R Ischial wounds with Dakin's 0.125% gian. Loosely pack wounds with Hydrogel impregnated Kerlix. Apply Moisture Barrier Paste periwound. Cover with ABD Pads secure with Tegaderm drsg.Daily and prn. Apply Triad Paste to R Hip/R trochanteric areas.Cover with Optifoam drsg. Change every 7 days and prn. Apply Betadine to Medial R Knee. Cover with Optifoam drsg. Change every 7 days and prn. Apply Betadine to R and L Heels. Cover each Heel with Optifoam drsgs. Change every 7 days and prn. Cover Bony Prominences as needed with Optifoam drsgs. Reposition at least every [address] tolerated[address] Pillow between knees. Off-load heels with pillow. APM/SUMI Mattress overlay (15) SEAN (acute kidney injury) (16) Ileostomy prolapse Assessment & Plan: currently reduced but abd distended pending films films reviewed improved okay for diet d/c planning Cornelius Salgado Nov 05, 2019 09:25
[2019-11-05] MEDS ORDERED: Vancomycin 1 GM in D5W 275 ML IVPB SCH (10:00)
--- NOTE | 2019-11-05 10:30 | Pulmonology Progress Note ---
Subjective ROS Limited/Unobtainable: Yes Interval Events: Looking better Constitutional: Denies: fever HEENT: Repors: no symptoms Respiratory: Reports: no symptoms Cardiovascular: Reports: no symptoms Gastrointestinal/Abdominal: Denies: nausea, vomiting, diarrhea Genitourinary: Reports: no symptoms Psychiatric: Denies: depression Skin: Denies: rash Musculoskeletal: Denies: pain Allergies: Coded Allergies: No Known Allergies (Unverified , 08/15/19) All Systems: reviewed and negative except above Objective Last 24 Hour Vital Signs Date Time Temp Pulse Resp B/P (MAP) Pulse Ox O2 Delivery O2 Flow Rate FiO2 11/05/19 08:00 101.5 84 18 94/51 (65) 98 11/05/19 04:00 98.2 72 19 105/62 (76) 95 11/05/19 04:00 Room Air 11/05/19 04:00 79 11/05/19 00:00 98.0 70 18 101/59 (73) 98 11/05/19 00:00 74 11/05/19 00:00 Room Air 11/04/19 21:00 Room Air 11/04/19 20:00 86 11/04/19 20:00 98.6 74 18 110/60 (77) 96 11/04/19 16:00 Room Air 11/04/19 16:00 98.1 86 18 116/67 (83) 97 11/04/19 15:27 84 11/04/19 12:00 Room Air 11/04/19 12:00 63 11/04/19 12:00 98.4 61 20 90/48 (62) 95 Intake and Output 11/04/19 11/05/19 19:00 07:00 Intake Total 360 ml 400 ml Output Total 150 ml 1400 ml Balance 210 ml -1000 ml Intake Oral 360 ml 400 ml Output Urine Total 150 ml 1400 ml # Bowel Movements 1 1 General Appearance: no acute distress HEENT: normocephalic Respiratory: chest wall non-tender, lungs clear Cardiovascular: normal peripheral pulses, regular rhythm Abdomen: normal bowel sounds Extremities: no cyanosis Microbiology Date/Time Source Procedure Growth Status 11/02/19 13:30 Nasopharynx SARS-CoV-2 RdRp Gene Assay - Final Complete 11/02/19 17:50 Urine,Clean Catch Urine Culture - Preliminary Yeast Species Resulted 11/02/19 17:50 Indwelling Cath Urine Culture - Preliminary Yeast Species Resulted 11/03/19 08:00 Catheter Site Catheter Tip Culture - Final Staphylococcus Sp Coag Neg Complete Laboratory Tests 11/04/19 12:20: White Blood Count 7.3, Red Blood Count 3.42L, Hemoglobin 9.3L, Hematocrit 29.1L , Mean Corpuscular Volume 85, Mean Corpuscular Hemoglobin 27.2, Mean Corpuscular Hemoglobin Concent 31.9L, Red Cell Distribution Width 17.4H, Platelet Count 498H, Mean Platelet Volume 4.8L, Neutrophils (%) (Auto) 59.0, Lymphocytes (%) (Auto) 25.3, Monocytes (%) (Auto) 11.6H, Eosinophils (%) (Auto) 1.7, Basophils (%) (Auto) 2.4H, Sodium Level 131L, Potassium Level 4.1, Chloride Level 96L, Carbon Dioxide Level 24, Anion Gap 11, Blood Urea Nitrogen 13, Creatinine 0.5L, Estimat Glomerular Filtration Rate > 60, Glucose Level 99, Calcium Level 9.2, Phosphorus Level 3.7, Magnesium Level 2.2 Current Medications Medications (Trade) Dose Ordered Sig/Mya Route PRN Reason Start Time Stop Time Status Last Admin Dose Admin Acetaminophen (Tylenol) 650 mg Q4H PRN ORAL Mild Pain (Pain Scale 1-3) 11/04/19 11:00 11/30/19 22:59 11/05/19 08:26 Acetaminophen/ Hydrocodone Bitart ([place] 5/325) 1 tab Q4H PRN ORAL Moderate Pain (Pain Scale 4-6) 11/04/19 07:57 11/07/19 07:56 Acetaminophen/ Hydrocodone Bitart ([place] 5/325) 2 tab Q4H PRN ORAL Severe Pain (Pain Scale 7-10) 11/04/19 07:57 11/07/19 07:56 11/05/19 06:22 Ascorbic Acid (Vitamin C) 500 mg DAILY ORAL 11/04/19 09:00 11/23/19 08:59 11/05/19 08:26 Baclofen (Lioresal) 10 mg THREE TIMES A DAY ORAL 11/04/19 09:00 11/22/19 17:59 11/05/19 08:26 Clonazepam (KlonoPIN) 0.5 mg Q8H PRN ORAL For Anxiety 11/04/19 07:54 11/07/19 07:53 Dextrose (Dextrose 50%) 25 ml Q30M PRN IV Hypoglycemia 11/04/19 08:00 01/21/20 17:29 Dextrose (Dextrose 50%) 50 ml Q30M PRN IV Hypoglycemia 11/04/19 08:00 01/21/20 17:29 Diphenhydramine HCl (Benadryl) 25 mg Q6H PRN ORAL Itching/Pruritis 11/04/19 07:55 11/22/19 07:54 Docusate Sodium (Colace) 100 mg EVERY 12 HOURS ORAL 11/04/19 09:00 11/22/19 20:59 11/05/19 08:25 Famotidine (Pepcid) 20 mg DAILY ORAL 11/04/19 09:00 01/28/20 09:29 11/05/19 08:28 Ferrous Sulfate (Feosol) 325 mg DAILY ORAL 11/04/19 09:00 01/22/20 08:59 11/05/19 08:26 Fluconazole/ Sodium Chloride 200 ml @ 200 mls/hr Q24H IV 11/04/19 17:00 11/09/19 16:59 11/04/19 17:49 Gabapentin (Neurontin) 400 mg Q8HR ORAL 11/04/19 14:00 12/03/19 21:59 11/05/19 05:21 Heparin Sodium (Porcine) (Heparin 5000 units/ml) 5,000 units EVERY 12 HOURS SUBQ 11/04/19 09:00 12/08/19 08:59 11/05/19 08:31 Midodrine (Pro-Amatine) 10 mg EVERY 8 HOURS ORAL 11/04/19 14:00 01/21/20 17:59 11/05/19 05:22 Ondansetron HCl (Zofran) 4 mg Q6H PRN IVP Nausea & Vomiting 11/04/19 07:58 11/22/19 07:57 Sodium Hypochlorite (Dakin's Quarter Strength) 1 applic DAILY TOPIC 11/04/19 09:00 11/24/19 08:59 11/04/19 08:47 Vancomycin HCl (Vanco pharmacy to dose) 1 ea DAILY PRN MISC Per rx protocol 11/04/19 09:00 11/28/19 16:14 Vancomycin HCl 1 gm/Dextrose 275 ml @ 183.708 mls/hr Q12H IVPB 11/05/19 10:00 11/06/19 23:30 Zinc Sulfate (Zinc Sulfate) 220 mg DAILY ORAL 11/04/19 09:00 01/22/20 08:59 11/05/19 08:26 Assessment/Plan Assessment/Plan IMPRESSION: 1. Septic shock. resolved 2. Complicated UTI with history of previous ESBL infection. 3. Paraplegia. 4. Sacral decubitus. 5. pen[facility]iary resident. DISCUSSION: DVT and GI prophylaxes. ID consult and follow-up noted. I will follow carefully. continue Oxygen, doing well on room air at this time. Haily Monzon Omar Syed MD Nov 05, 2019 10:30
--- NOTE | 2019-11-05 11:06 | Nephrology Progress Note ---
Assessment/Plan Plan #Polyuria - r/o DI vs dopamine effect??- however sodium remains in normal range #Shock #UTI # infected sacral pressure ulcer #Acute metabolic encephalopathy #Paraplegia #Sacral pressure ulcer #Hypokalemia #Anemia - DCed IVF - DCed desmopressin - assess UOP over the next 24 hours - continue midodrine 10 TID - antibiotics per ID - monitor lytes - monitor for vanoc toxicity - avoid nephrotoxins - daily weights - strict I&Os time spent 70 min- greater than 50% on care coordination and counseling Subjective ROS Limited/Unobtainable: Yes Subjective sodium 121-> 131 labs pending today UOP less yesterday at 1550 holding desmopressin off IVF and assess UOP Objective Objective Last 24 Hour Vital Signs Date Time Temp Pulse Resp B/P (MAP) Pulse Ox O2 Delivery O2 Flow Rate FiO2 11/05/19 08:00 101.5 84 18 94/51 (65) 98 11/05/19 04:00 98.2 72 19 105/62 (76) 95 11/05/19 04:00 Room Air 11/05/19 04:00 79 11/05/19 00:00 98.0 70 18 101/59 (73) 98 11/05/19 00:00 74 11/05/19 00:00 Room Air 11/04/19 21:00 Room Air 11/04/19 20:00 86 11/04/19 20:00 98.6 74 18 110/60 (77) 96 11/04/19 16:00 Room Air 11/04/19 16:00 98.1 86 18 116/67 (83) 97 11/04/19 15:27 84 11/04/19 12:00 Room Air 11/04/19 12:00 63 11/04/19 12:00 98.4 61 20 90/48 (62) 95 Intake and Output 11/04/19 11/05/19 19:00 07:00 Intake Total 360 ml 400 ml Output Total 150 ml 1400 ml Balance 210 ml -1000 ml Intake Oral 360 ml 400 ml Output Urine Total 150 ml 1400 ml # Bowel Movements 1 1 Laboratory Tests 11/04/19 12:20: White Blood Count 7.3, Red Blood Count 3.42L, Hemoglobin 9.3L, Hematocrit 29.1L , Mean Corpuscular Volume 85, Mean Corpuscular Hemoglobin 27.2, Mean Corpuscular Hemoglobin Concent 31.9L, Red Cell Distribution Width 17.4H, Platelet Count 498H, Mean Platelet Volume 4.8L, Neutrophils (%) (Auto) 59.0, Lymphocytes (%) (Auto) 25.3, Monocytes (%) (Auto) 11.6H, Eosinophils (%) (Auto) 1.7, Basophils (%) (Auto) 2.4H, Sodium Level 131L, Potassium Level 4.1, Chloride Level 96L, Carbon Dioxide Level 24, Anion Gap 11, Blood Urea Nitrogen 13, Creatinine 0.5L, Estimat Glomerular Filtration Rate > 60, Glucose Level 99, Calcium Level 9.2, Phosphorus Level 3.7, Magnesium Level 2.2 Height (Feet): 5 Height (Inches): 7.00 Weight (Pounds): 106 Sienna Georges M.D. Nov 05, 2019 11:06
--- NOTE | 2019-11-05 12:43 | Hematology/Onc Progress Note ---
Assessment/Plan Assessment/Plan Assessment/recs # Anemia rule out gi bleed, as well as iron deficiency --> hgb 8.2-->7.2-->7.1->6.9-->8.6-->8.3-->9.3 --> anemia panel ordered--> cw acd --> occult blood pending --> gi eval prn --> transfuse as needed --> transfuse 2 units 10/27 # Coagulopathy with elev ptt/inr --> vitk and ffp as needed --> no bleeding noted at this time # Thrombocytosis likely reactive process --> plt 398 # Hypotension likely due to septic shock. Was diuresing heavily at 300 mL an hour. --> Continue on midodrine and dopamine. --> IV antibiotic with vancomycin and meropenem and amikacin-->christel --> in icu, is on pressors --> as per cards # Bradycardia. --> per cards # Paraplegia. # Urinary tract infection --> followed by Dr. Painting on broad-spectrum IV antibiotic. # Decubitus ulcers with sacral decubitus. # Dvt heparin sq Appreciate consultation and dw RN Subjective Constitutional: Denies: no symptoms, chills, fever, malaise, weakness, other HEENT: Denies: no symptoms, eye pain, blurred vision, tearing, double vision, ear pain, ear discharge, nose pain, nose congestion, throat pain, throat swelling, mouth pain, mouth swelling, other Cardiovascular: Denies: no symptoms, chest pain, edema, irregular heart rate, lightheadedness, palpitations, syncope, other Respiratory: Denies: no symptoms, cough, shortness of breath, SOB with excertion, SOB at rest, sputum, wheezing, other Gastrointestinal/Abdominal: Denies: no symptoms, abdomen distended, abdominal pain, black stools, tarry stools, blood in stool, constipated, diarrhea, difficulty swallowing, nausea, poor appetite, poor fluid intake, rectal bleeding , vomiting, other Genitourinary: Denies: no symptoms, burning, discharge, frequency, flank pain, hematuria, incontinence, pain, urgency, other Neurologic/Psychiatric: Denies: no symptoms, anxiety, depressed, emotional problems, headache, numbness, paresthesia, pre-existing deficit, seizure, tingling, tremors, weakness, other Hematologic/Lymphatic: Denies: no symptoms, anemia, easy bleeding, easy bruising, adenopathy, other Allergies: Coded Allergies: No Known Allergies (Unverified , 08/15/19) Subjective 10/27 labs again refused this am, yesterday was low, chandrakant rn in icu 10/28 remains in icu, for 2units prbc this am, chandrakant rn, no other events 10/29 s/p prbc, tolerated it well, no bleeding, on 1mcg levo, in icu 10/30 on abx, on levo and overnight no other events, 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\ 10/31 wounds improved, labs noted, no bleeding, hgb lower, refusing care/wound care 11/01 labs noted, no bleeding, no hematochezia, no hemoptysis, cbc ordered 11/02 meds reviewed, labs noted, no bleeding, chandrakant rn, no major changes, hgb 8.3\ 11/04 labs have been noted, no bleeding, meds reviewed, no hemolysis Objective Objective Current Medications Medications (Trade) Dose Ordered Sig/Mya Route PRN Reason Start Time Stop Time Status Last Admin Dose Admin Acetaminophen (Tylenol) 650 mg Q4H PRN ORAL Mild Pain (Pain Scale 1-3) 11/04/19 11:00 11/30/19 22:59 11/05/19 08:26 Acetaminophen/ Hydrocodone Bitart ([place] 5/325) 1 tab Q4H PRN ORAL Moderate Pain (Pain Scale 4-6) 11/04/19 07:57 11/07/19 07:56 Acetaminophen/ Hydrocodone Bitart ([place] 5/325) 2 tab Q4H PRN ORAL Severe Pain (Pain Scale 7-10) 11/04/19 07:57 11/07/19 07:56 11/05/19 06:22 Ascorbic Acid (Vitamin C) 500 mg DAILY ORAL 11/04/19 09:00 11/23/19 08:59 11/05/19 08:26 Baclofen (Lioresal) 10 mg THREE TIMES A DAY ORAL 11/04/19 09:00 11/22/19 17:59 11/05/19 08:26 Clonazepam (KlonoPIN) 0.5 mg Q8H PRN ORAL For Anxiety 11/04/19 07:54 11/07/19 07:53 Dextrose (Dextrose 50%) 25 ml Q30M PRN IV Hypoglycemia 11/04/19 08:00 01/21/20 17:29 Dextrose (Dextrose 50%) 50 ml Q30M PRN IV Hypoglycemia 11/04/19 08:00 01/21/20 17:29 Diphenhydramine HCl (Benadryl) 25 mg Q6H PRN ORAL Itching/Pruritis 11/04/19 07:55 11/22/19 07:54 Docusate Sodium (Colace) 100 mg EVERY 12 HOURS ORAL 11/04/19 09:00 11/22/19 20:59 11/05/19 08:25 Famotidine (Pepcid) 20 mg DAILY ORAL 11/04/19 09:00 01/28/20 09:29 11/05/19 08:28 Ferrous Sulfate (Feosol) 325 mg DAILY ORAL 11/04/19 09:00 01/22/20 08:59 11/05/19 08:26 Fluconazole/ Sodium Chloride 200 ml @ 200 mls/hr Q24H IV 11/04/19 17:00 11/09/19 16:59 11/04/19 17:49 Gabapentin (Neurontin) 400 mg Q8HR ORAL 11/04/19 14:00 12/03/19 21:59 11/05/19 05:21 Heparin Sodium (Porcine) (Heparin 5000 units/ml) 5,000 units EVERY 12 HOURS SUBQ 11/04/19 09:00 12/08/19 08:59 11/05/19 08:31 Midodrine (Pro-Amatine) 10 mg EVERY 8 HOURS ORAL 11/04/19 14:00 01/21/20 17:59 11/05/19 05:22 Ondansetron HCl (Zofran) 4 mg Q6H PRN IVP Nausea & Vomiting 11/04/19 07:58 11/22/19 07:57 Sodium Hypochlorite (Dakin's Quarter Strength) 1 applic DAILY TOPIC 11/04/19 09:00 11/24/19 08:59 11/04/19 08:47 Vancomycin HCl (Vanco pharmacy to dose) 1 ea DAILY PRN MISC Per rx protocol 11/04/19 09:00 11/28/19 16:14 Vancomycin HCl 1 gm/Dextrose 275 ml @ 183.708 mls/hr Q12H IVPB 11/05/19 10:00 11/12/19 09:59 Zinc Sulfate (Zinc Sulfate) 220 mg DAILY ORAL 11/04/19 09:00 01/22/20 08:59 11/05/19 08:26 Last 24 Hour Vital Signs Date Time Temp Pulse Resp B/P (MAP) Pulse Ox O2 Delivery O2 Flow Rate FiO2 11/05/19 08:00 101.5 84 18 94/51 (65) 98 11/05/19 04:00 98.2 72 19 105/62 (76) 95 11/05/19 04:00 Room Air 11/05/19 04:00 79 11/05/19 00:00 98.0 70 18 101/59 (73) 98 11/05/19 00:00 74 11/05/19 00:00 Room Air 11/04/19 21:00 Room Air 11/04/19 20:00 86 11/04/19 20:00 98.6 74 18 110/60 (77) 96 11/04/19 16:00 Room Air 11/04/19 16:00 98.1 86 18 116/67 (83) 97 11/04/19 15:27 84 11/04/19 12:00 Room Air 11/04/19 12:00 63 11/04/19 12:00 98.4 61 20 90/48 (62) 95 11/04/19 08:00 96.9 88 18 90/49 (63) 97 11/04/19 08:00 Room Air 11/04/19 07:50 80 11/04/19 04:00 98.1 68 19 102/58 (73) 99 11/04/19 04:00 Room Air 11/04/19 04:00 70 11/04/19 00:00 61 11/04/19 00:00 98.1 61 19 105/60 (75) 100 11/04/19 00:00 Room Air 11/03/19 20:00 98.3 89 20 107/67 (80) 99 11/03/19 20:00 Room Air 11/03/19 16:00 68 11/03/19 16:00 98.6 83 20 126/67 (86) 97 11/03/19 16:00 Room Air Intake and Output 11/04/19 11/05/19 19:00 07:00 Intake Total 360 ml 400 ml Output Total 150 ml 1400 ml Balance 210 ml -1000 ml Intake Oral 360 ml 400 ml Output Urine Total 150 ml 1400 ml # Bowel Movements 1 1 Labs Test 11/02/19 17:50 11/03/19 11:55 11/04/19 12:20 Urine Color Pale yellow Urine Appearance Clear Urine pH 7 (4.5-8.0) Urine Specific [place] 1.010 (1.005-1.035) Urine Protein 2+ (NEGATIVE) Urine Glucose (UA) Negative (NEGATIVE) Urine Ketones Negative (NEGATIVE) Urine Blood Negative (NEGATIVE) Urine Nitrite Negative (NEGATIVE) Urine Bilirubin Negative (NEGATIVE) Urine Urobilinogen Normal MG/DL (0.0-1.0) Urine Leukocyte Esterase 1+ (NEGATIVE) Urine RBC 0-2 /HPF (0 - 0) Urine WBC 5-10 /HPF (0 - 0) Urine Squamous Epithelial Cells None /LPF (NONE/OCC) Urine Bacteria Few /HPF (NONE) Urine Yeast Few /HPF (NONE) Sodium Level 121 MMOL/L (136-145) 131 MMOL/L (136-145) Potassium Level 3.4 MMOL/L (3.5-5.1) 4.1 MMOL/L (3.5-5.1) Chloride Level 88 MMOL/L (98-107) 96 MMOL/L (98-107) Carbon Dioxide Level 25 MMOL/L (21-32) 24 MMOL/L (21-32) Anion Gap 9 mmol/L (5-15) 11 mmol/L (5-15) Blood Urea Nitrogen 12 mg/dL (7-18) 13 mg/dL (7-18) Creatinine 0.5 MG/DL (0.55-1.30) 0.5 MG/DL (0.55-1.30) Estimat Glomerular Filtration Rate > 60 mL/min (>60) > 60 mL/min (>60) Glucose Level 127 MG/DL (74-106) 99 MG/DL (74-106) Calcium Level 8.7 MG/DL (8.5-10.1) 9.2 MG/DL (8.5-10.1) Phosphorus Level 2.6 MG/DL (2.5-4.9) 3.7 MG/DL (2.5-4.9) Magnesium Level 1.5 MG/DL (1.8-2.4) 2.2 MG/DL (1.8-2.4) Total Bilirubin 0.6 MG/DL (0.2-1.0) Aspartate Amino Transf (AST/SGOT) 14 U/L (15-37) Alanine Aminotransferase (ALT/SGPT) 13 U/L (12-78) Alkaline Phosphatase 153 U/L (46-116) Total Protein 6.8 G/DL (6.4-8.2) Albumin 1.7 G/DL (3.4-5.0) Globulin 5.1 g/dL Albumin/Globulin Ratio 0.3 (1.0-2.7) White Blood Count 7.3 K/UL (4.8-10.8) Red Blood Count 3.42 M/UL (4.70-6.10) Hemoglobin 9.3 G/DL (14.2-18.0) Hematocrit 29.1 % (42.0-52.0) Mean Corpuscular Volume 85 FL (80-99) Mean Corpuscular Hemoglobin 27.2 PG (27.0-31.0) Mean Corpuscular Hemoglobin Concent 31.9 G/DL (32.0-36.0) Red Cell Distribution Width 17.4 % (11.6-14.8) Platelet Count 498 K/UL (150-450) Mean Platelet Volume 4.8 FL (6.5-10.1) Neutrophils (%) (Auto) 59.0 % (45.0-75.0) Lymphocytes (%) (Auto) 25.3 % (20.0-45.0) Monocytes (%) (Auto) 11.6 % (1.0-10.0) Eosinophils (%) (Auto) 1.7 % (0.0-3.0) Basophils (%) (Auto) 2.4 % (0.0-2.0) Height (Feet): 5 Height (Inches): 7.00 Weight (Pounds): 106 Objective Physical Exam General Appearance: lethargic Lines, tubes and drains: peripheral, central line HEENT: normocephalic Neck: non-tender, normal alignment Respiratory/Chest: lungs clear Cardiovascular/Chest: normal peripheral pulses, normal rate, regular rhythm Abdomen: normal bowel sounds, non tender Kleynberg,Martínez L. MD Nov 05, 2019 12:43
[2019-11-05] MEDS: Dakin's 0.125% Soln (Quarter Strength) 16oz TOPIC SCH (12:54)
[2019-11-05 16:00] VITALS: BP 118/89
[2019-11-05] MEDS ORDERED: clonazePAM 0.5mg tab ORAL PRN (16:00)
[2019-11-05] MEDS ORDERED: HYDROcodone/Acetamin 5/325 tab ORAL PRN (16:00)
[2019-11-05 20:00] VITALS: BP 128/82
[2019-11-05] MEDS: Vancomycin 1 GM in D5W 275 ML IVPB SCH (21:04)
[2019-11-06] VITALS: BP_SYST 108; BP_SYST 141; BP_DIAS 58; BP_DIAS 93
[2019-11-06 04:00] VITALS: BP 99/60
[2019-11-06] MEDS: Midodrine 10mg tab ORAL SCH ×3 (05:55→21:35)
--- NOTE | 2019-11-06 06:42 | Hematology/Onc Progress Note ---
Assessment/Plan Assessment/Plan Assessment/recs # Anemia rule out gi bleed, as well as iron deficiency --> hgb 8.2-->7.2-->7.1->6.9-->8.6-->8.3-->9.3 --> anemia panel ordered--> cw acd --> occult blood pending --> gi eval prn --> transfuse as needed --> transfuse 2 units 10/27 # Coagulopathy with elev ptt/inr --> vitk and ffp as needed --> no bleeding noted at this time # Thrombocytosis likely reactive process --> plt 398 # Hypotension likely due to septic shock. Was diuresing heavily at 300 mL an hour. --> Continue on midodrine and dopamine. --> IV antibiotic with vancomycin and meropenem and amikacin-->christel --> in icu, is on pressors --> as per cards # Bradycardia. --> per cards # Paraplegia. # Urinary tract infection --> followed by Dr. Painting on broad-spectrum IV antibiotic. # Decubitus ulcers with sacral decubitus. # Dvt heparin sq Appreciate consultation and chandrakant RN Subjective HEENT: Denies: no symptoms, eye pain, blurred vision, tearing, double vision, ear pain, ear discharge, nose pain, nose congestion, throat pain, throat swelling, mouth pain, mouth swelling, other Cardiovascular: Denies: no symptoms, chest pain, edema, irregular heart rate, lightheadedness, palpitations, syncope, other Gastrointestinal/Abdominal: Denies: no symptoms, abdomen distended, abdominal pain, black stools, tarry stools, blood in stool, constipated, diarrhea, difficulty swallowing, nausea, poor appetite, poor fluid intake, rectal bleeding , vomiting, other Genitourinary: Denies: no symptoms, burning, discharge, frequency, flank pain, hematuria, incontinence, pain, urgency, other Neurologic/Psychiatric: Denies: no symptoms, anxiety, depressed, emotional problems, headache, numbness, paresthesia, pre-existing deficit, seizure, tingling, tremors, weakness, other Endocrine: Denies: no symptoms, excessive sweating, flushing, intolerance to cold, intolerance to heat, increased hunger, increased thirst, increased urine, unexplained weight gain, unexplained weight loss, other Allergies: Coded Allergies: No Known Allergies (Unverified , 08/15/19) Subjective 10/27 labs again refused this am, yesterday was low, chandrakant rn in icu 10/28 remains in icu, for 2units prbc this am, chandrakant rn, no other events 10/29 s/p prbc, tolerated it well, no bleeding, on 1mcg levo, in icu 10/30 on abx, on levo and overnight no other events, 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\ 10/31 wounds improved, labs noted, no bleeding, hgb lower, refusing care/wound care 11/01 labs noted, no bleeding, no hematochezia, no hemoptysis, cbc ordered 11/02 meds reviewed, labs noted, no bleeding, chandrakant rn, no major changes, hgb 8.3 11/04 labs have been noted, no bleeding, meds reviewed, no hemolysis 11/05 functional colostomy llq, no bleeding, cbc is pending for am Objective Objective Current Medications Medications (Trade) Dose Ordered Sig/Mya Route PRN Reason Start Time Stop Time Status Last Admin Dose Admin Acetaminophen (Tylenol) 650 mg Q4H PRN ORAL Mild Pain (Pain Scale 1-3) 11/05/19 14:00 11/30/19 13:59 11/06/19 03:49 Acetaminophen (Tylenol) 650 mg Q4H PRN ORAL Temp >100.5 11/05/19 16:00 12/05/19 15:59 Acetaminophen/ Hydrocodone Bitart ([place] 5/325) 1 tab Q4H PRN ORAL Moderate Pain (Pain Scale 4-6) 11/05/19 16:00 11/07/19 07:56 Acetaminophen/ Hydrocodone Bitart ([place] 5/325) 2 tab Q4H PRN ORAL Severe Pain (Pain Scale 7-10) 11/05/19 14:00 11/07/19 13:59 11/05/19 18:36 Ascorbic Acid (Vitamin C) 500 mg DAILY ORAL 11/06/19 09:00 11/23/19 08:59 Baclofen (Lioresal) 10 mg THREE TIMES A DAY ORAL 11/05/19 18:00 11/22/19 17:59 Clonazepam (KlonoPIN) 0.5 mg Q8H PRN ORAL For Anxiety 11/05/19 16:00 11/07/19 07:53 Dextrose (Dextrose 50%) 25 ml Q30M PRN IV Hypoglycemia 11/05/19 13:30 01/21/20 17:29 Dextrose (Dextrose 50%) 50 ml Q30M PRN IV Hypoglycemia 11/05/19 13:30 01/21/20 17:29 Diphenhydramine HCl (Benadryl) 25 mg Q6H PRN ORAL Itching/Pruritis 11/05/19 14:00 11/22/19 07:54 Docusate Sodium (Colace) 100 mg EVERY 12 HOURS ORAL 11/05/19 21:00 11/22/19 20:59 11/05/19 21:03 Famotidine (Pepcid) 20 mg DAILY ORAL 11/06/19 09:00 01/28/20 09:29 Ferrous Sulfate (Feosol) 325 mg DAILY ORAL 11/06/19 09:00 01/22/20 08:59 Fluconazole/ Sodium Chloride 200 ml @ 200 mls/hr Q24H IV 11/05/19 17:00 11/09/19 16:59 11/05/19 17:35 Gabapentin (Neurontin) 400 mg Q8HR ORAL 11/05/19 14:00 12/03/19 21:59 11/06/19 05:55 Heparin Sodium (Porcine) (Heparin 5000 units/ml) 5,000 units EVERY 12 HOURS SUBQ 11/05/19 21:00 12/08/19 08:59 11/05/19 21:09 Midodrine (Pro-Amatine) 10 mg EVERY 8 HOURS ORAL 11/05/19 14:00 01/21/20 17:59 11/06/19 05:55 Ondansetron HCl (Zofran) 4 mg Q6H PRN IVP Nausea & Vomiting 11/05/19 14:00 11/22/19 07:57 Sodium Hypochlorite (Dakin's Quarter Strength) 1 applic DAILY TOPIC 11/06/19 09:00 11/24/19 08:59 Vancomycin HCl (Vanco pharmacy to dose) 1 ea DAILY PRN MISC Per rx protocol 11/06/19 09:00 11/28/19 16:14 Vancomycin HCl 1 gm/Dextrose 275 ml @ 183.708 mls/hr Q12H IVPB 11/05/19 22:00 11/12/19 09:59 11/05/19 21:04 Zinc Sulfate (Zinc Sulfate) 220 mg DAILY ORAL 11/06/19 09:00 01/22/20 08:59 Last 24 Hour Vital Signs Date Time Temp Pulse Resp B/P (MAP) Pulse Ox O2 Delivery O2 Flow Rate FiO2 11/06/19 04:19 99.5 11/06/19 04:00 102.5 103 22 99/60 (73) 96 11/06/19 00:00 98.1 75 18 108/58 (75) 96 11/05/19 21:00 Room Air 11/05/19 20:00 98.2 83 18 128/82 (97) 96 11/05/19 16:00 Room Air 11/05/19 16:00 100.0 98 18 118/89 (99) 96 11/05/19 08:56 98.4 11/05/19 08:00 Room Air 11/05/19 08:00 79 11/05/19 08:00 101.5 84 18 94/51 (65) 98 11/05/19 04:00 98.2 72 19 105/62 (76) 95 11/05/19 04:00 Room Air 11/05/19 04:00 79 11/05/19 00:00 98.0 70 18 101/59 (73) 98 11/05/19 00:00 74 11/05/19 00:00 Room Air 11/04/19 21:00 Room Air 11/04/19 20:00 86 11/04/19 20:00 98.6 74 18 110/60 (77) 96 11/04/19 16:00 Room Air 11/04/19 16:00 98.1 86 18 116/67 (83) 97 11/04/19 15:27 84 11/04/19 12:00 Room Air 11/04/19 12:00 63 11/04/19 12:00 98.4 61 20 90/48 (62) 95 11/04/19 08:00 96.9 88 18 90/49 (63) 97 11/04/19 08:00 Room Air 11/04/19 07:50 80 Intake and Output 11/05/19 11/06/19 19:00 07:00 Intake Total 920 ml Output Total 1000 ml Balance -80 ml Intake Oral 720 ml IV Total 200 ml Output Urine Total 1000 ml Labs Test 11/03/19 11:55 11/04/19 12:20 Sodium Level 121 MMOL/L (136-145) 131 MMOL/L (136-145) Potassium Level 3.4 MMOL/L (3.5-5.1) 4.1 MMOL/L (3.5-5.1) Chloride Level 88 MMOL/L (98-107) 96 MMOL/L (98-107) Carbon Dioxide Level 25 MMOL/L (21-32) 24 MMOL/L (21-32) Anion Gap 9 mmol/L (5-15) 11 mmol/L (5-15) Blood Urea Nitrogen 12 mg/dL (7-18) 13 mg/dL (7-18) Creatinine 0.5 MG/DL (0.55-1.30) 0.5 MG/DL (0.55-1.30) Estimat Glomerular Filtration Rate > 60 mL/min (>60) > 60 mL/min (>60) Glucose Level 127 MG/DL (74-106) 99 MG/DL (74-106) Calcium Level 8.7 MG/DL (8.5-10.1) 9.2 MG/DL (8.5-10.1) Phosphorus Level 2.6 MG/DL (2.5-4.9) 3.7 MG/DL (2.5-4.9) Magnesium Level 1.5 MG/DL (1.8-2.4) 2.2 MG/DL (1.8-2.4) Total Bilirubin 0.6 MG/DL (0.2-1.0) Aspartate Amino Transf (AST/SGOT) 14 U/L (15-37) Alanine Aminotransferase (ALT/SGPT) 13 U/L (12-78) Alkaline Phosphatase 153 U/L (46-116) Total Protein 6.8 G/DL (6.4-8.2) Albumin 1.7 G/DL (3.4-5.0) Globulin 5.1 g/dL Albumin/Globulin Ratio 0.3 (1.0-2.7) White Blood Count 7.3 K/UL (4.8-10.8) Red Blood Count 3.42 M/UL (4.70-6.10) Hemoglobin 9.3 G/DL (14.2-18.0) Hematocrit 29.1 % (42.0-52.0) Mean Corpuscular Volume 85 FL (80-99) Mean Corpuscular Hemoglobin 27.2 PG (27.0-31.0) Mean Corpuscular Hemoglobin Concent 31.9 G/DL (32.0-36.0) Red Cell Distribution Width 17.4 % (11.6-14.8) Platelet Count 498 K/UL (150-450) Mean Platelet Volume 4.8 FL (6.5-10.1) Neutrophils (%) (Auto) 59.0 % (45.0-75.0) Lymphocytes (%) (Auto) 25.3 % (20.0-45.0) Monocytes (%) (Auto) 11.6 % (1.0-10.0) Eosinophils (%) (Auto) 1.7 % (0.0-3.0) Basophils (%) (Auto) 2.4 % (0.0-2.0) Height (Feet): 5 Height (Inches): 7.00 Weight (Pounds): 106 Objective Physical Exam General Appearance: lethargic Lines, tubes and drains: peripheral, central line HEENT: normocephalic Neck: non-tender, normal alignment Respiratory/Chest: lungs clear Cardiovascular/Chest: normal peripheral pulses, normal rate, regular rhythm Abdomen: normal bowel sounds, non tender ++ llq colostomy Martínez Capps MD Nov 06, 2019 06:42
[2019-11-06 08:00] VITALS: BP 91/62
[2019-11-06] MEDS: Zinc Sulfate 220mg ORAL SCH (08:48)
[2019-11-06] MEDS: Ascorbic Acid 500mg tab ORAL SCH (08:48)
[2019-11-06] MEDS: Docusate 100mg cap ORAL SCH ×2 (08:48→20:35)
[2019-11-06] MEDS: HYDROcodone/Acetamin 5/325 tab ORAL PRN ×3 (08:50→20:34)
[2019-11-06] MEDS: Heparin 5000 units/ml inj SUBQ SCH ×2 (08:50→20:35)
[2019-11-06] MEDS: Dakin's 0.125% Soln (Quarter Strength) 16oz TOPIC SCH (08:53)
--- NOTE | 2019-11-06 11:03 | Pulmonology Progress Note ---
Subjective ROS Limited/Unobtainable: Yes Interval Events: Looking better Constitutional: Denies: fever HEENT: Repors: no symptoms Respiratory: Reports: no symptoms Cardiovascular: Reports: no symptoms Gastrointestinal/Abdominal: Denies: nausea, vomiting, diarrhea Genitourinary: Reports: no symptoms Psychiatric: Denies: depression Skin: Denies: rash Musculoskeletal: Denies: pain Allergies: Coded Allergies: No Known Allergies (Unverified , 08/15/19) All Systems: reviewed and negative except above Objective Last 24 Hour Vital Signs Date Time Temp Pulse Resp B/P (MAP) Pulse Ox O2 Delivery O2 Flow Rate FiO2 11/06/19 09:00 Room Air 11/06/19 08:00 98.7 72 19 91/62 (72) 97 11/06/19 04:19 99.5 11/06/19 04:00 102.5 103 22 99/60 (73) 96 11/06/19 00:00 98.1 75 18 108/58 (75) 96 11/05/19 21:00 Room Air 11/05/19 20:00 98.2 83 18 128/82 (97) 96 11/05/19 16:00 Room Air 11/05/19 16:00 100.0 98 18 118/89 (99) 96 Intake and Output 11/05/19 11/06/19 19:00 07:00 Intake Total 920 ml Output Total 1000 ml 1201 ml Balance -80 ml -1201 ml Intake Oral 720 ml IV Total 200 ml Output Urine Total 1000 ml 1200 ml Stool Total 1 ml General Appearance: no acute distress HEENT: normocephalic Respiratory: chest wall non-tender, lungs clear Cardiovascular: normal peripheral pulses, regular rhythm Abdomen: normal bowel sounds Extremities: no cyanosis Microbiology Date/Time Source Procedure Growth Status 11/04/19 12:20 Blood Blood Culture - Preliminary NO GROWTH AFTER 24 HOURS Resulted 11/04/19 12:10 Blood Blood Culture - Preliminary NO GROWTH AFTER 24 HOURS Resulted Current Medications Medications (Trade) Dose Ordered Sig/Mya Route PRN Reason Start Time Stop Time Status Last Admin Dose Admin Acetaminophen (Tylenol) 650 mg Q4H PRN ORAL Mild Pain (Pain Scale 1-3) 11/05/19 14:00 11/30/19 13:59 11/06/19 03:49 Acetaminophen (Tylenol) 650 mg Q4H PRN ORAL Temp >100.5 11/05/19 16:00 12/05/19 15:59 Acetaminophen/ Hydrocodone Bitart ([place] 5/325) 1 tab Q4H PRN ORAL Moderate Pain (Pain Scale 4-6) 11/05/19 16:00 11/07/19 07:56 Acetaminophen/ Hydrocodone Bitart ([place] 5/325) 2 tab Q4H PRN ORAL Severe Pain (Pain Scale 7-10) 11/05/19 14:00 11/07/19 13:59 11/06/19 08:50 Ascorbic Acid (Vitamin C) 500 mg DAILY ORAL 11/06/19 09:00 11/23/19 08:59 11/06/19 08:48 Baclofen (Lioresal) 10 mg THREE TIMES A DAY ORAL 11/05/19 18:00 11/22/19 17:59 11/06/19 08:48 Clonazepam (KlonoPIN) 0.5 mg Q8H PRN ORAL For Anxiety 11/05/19 16:00 11/07/19 07:53 Dextrose (Dextrose 50%) 25 ml Q30M PRN IV Hypoglycemia 11/05/19 13:30 01/21/20 17:29 Dextrose (Dextrose 50%) 50 ml Q30M PRN IV Hypoglycemia 11/05/19 13:30 01/21/20 17:29 Diphenhydramine HCl (Benadryl) 25 mg Q6H PRN ORAL Itching/Pruritis 11/05/19 14:00 11/22/19 07:54 Docusate Sodium (Colace) 100 mg EVERY 12 HOURS ORAL 11/05/19 21:00 11/22/19 20:59 11/06/19 08:48 Famotidine (Pepcid) 20 mg DAILY ORAL 11/06/19 09:00 01/28/20 09:29 11/06/19 08:48 Ferrous Sulfate (Feosol) 325 mg DAILY ORAL 11/06/19 09:00 01/22/20 08:59 11/06/19 08:48 Fluconazole/ Sodium Chloride 200 ml @ 200 mls/hr Q24H IV 11/05/19 17:00 11/09/19 16:59 11/05/19 17:35 Gabapentin (Neurontin) 400 mg Q8HR ORAL 11/05/19 14:00 12/03/19 21:59 11/06/19 05:55 Heparin Sodium (Porcine) (Heparin 5000 units/ml) 5,000 units EVERY 12 HOURS SUBQ 11/05/19 21:00 12/08/19 08:59 11/06/19 08:50 Midodrine (Pro-Amatine) 10 mg EVERY 8 HOURS ORAL 11/05/19 14:00 01/21/20 17:59 11/06/19 05:55 Ondansetron HCl (Zofran) 4 mg Q6H PRN IVP Nausea & Vomiting 11/05/19 14:00 11/22/19 07:57 Sodium Hypochlorite (Dakin's Quarter Strength) 1 applic DAILY TOPIC 11/06/19 09:00 11/24/19 08:59 11/06/19 08:53 Vancomycin HCl (Vanco pharmacy to dose) 1 ea DAILY PRN MISC Per rx protocol 11/06/19 09:00 11/28/19 16:14 Vancomycin HCl 1 gm/Dextrose 275 ml @ 183.708 mls/hr Q12H IVPB 11/05/19 22:00 11/12/19 09:59 11/05/19 21:04 Zinc Sulfate (Zinc Sulfate) 220 mg DAILY ORAL 11/06/19 09:00 01/22/20 08:59 11/06/19 08:48 Assessment/Plan Assessment/Plan IMPRESSION: 1. Septic shock. resolved 2. Complicated UTI with history of previous ESBL infection. 3. Paraplegia. 4. Sacral decubitus. 5. detention resident. DISCUSSION: DVT and GI prophylaxes. ID consult and follow-up noted. I will follow carefully. continue Oxygen, doing well on room air at this time. Haily Monzon Omar Syed MD Nov 06, 2019 11:03
[2019-11-06] MEDS: Vancomycin 1 GM in D5W 275 ML IVPB SCH ×2 (11:12→21:35)
--- NOTE | 2019-11-06 11:25 | Nephrology Progress Note ---
Assessment/Plan Plan #Polyuria - r/o DI vs dopamine effect??- however sodium remains in normal range #Shock #UTI # infected sacral pressure ulcer #Acute metabolic encephalopathy #Paraplegia #Sacral pressure ulcer #Hypokalemia #Anemia - DCed IVF - DCed desmopressin - assess UOP over the next 24 hours - continue midodrine 10 TID - antibiotics per ID - monitor lytes - monitor for vanoc toxicity - avoid nephrotoxins - daily weights - strict I&Os time spent 70 min- greater than 50% on care coordination and counseling Subjective ROS Limited/Unobtainable: No Constitutional: Reports: weakness HEENT: Denies: no symptoms, eye pain, blurred vision, tearing, double vision, ear pain, ear discharge, nose pain, nose congestion, throat pain, throat swelling, mouth pain, mouth swelling, other Genitourinary: Denies: no symptoms, burning, discharge, frequency, flank pain, hematuria, incontinence, pain, urgency, other Neurologic/Psychiatric: Denies: no symptoms, anxiety, depressed, emotional problems, headache, numbness, paresthesia, pre-existing deficit, seizure, tingling, tremors, weakness, other Subjective sodium 121-> 131 labs pending today UOP less yesterday at 1550 holding desmopressin off IVF and assess UOP Objective Objective Last 24 Hour Vital Signs Date Time Temp Pulse Resp B/P (MAP) Pulse Ox O2 Delivery O2 Flow Rate FiO2 11/06/19 09:00 Room Air 11/06/19 08:00 98.7 72 19 91/62 (72) 97 11/06/19 04:19 99.5 11/06/19 04:00 102.5 103 22 99/60 (73) 96 11/06/19 00:00 98.1 75 18 108/58 (75) 96 11/05/19 21:00 Room Air 11/05/19 20:00 98.2 83 18 128/82 (97) 96 11/05/19 16:00 Room Air 11/05/19 16:00 100.0 98 18 118/89 (99) 96 Intake and Output 11/05/19 11/06/19 19:00 07:00 Intake Total 920 ml Output Total 1000 ml 1201 ml Balance -80 ml -1201 ml Intake Oral 720 ml IV Total 200 ml Output Urine Total 1000 ml 1200 ml Stool Total 1 ml Height (Feet): 5 Height (Inches): 7.00 Weight (Pounds): 104 Sienna Georges M.D. Nov 06, 2019 11:25
[2019-11-06 12:00] VITALS: BP 90/51
--- NOTE | 2019-11-06 12:37 | Surgery Progress Note ---
Surgery Progress Note Subjective Symptoms: improved, tolerating diet, voiding well, passing flatus, BM Objective Last 24 Hour Vital Signs Date Time Temp Pulse Resp B/P (MAP) Pulse Ox O2 Delivery O2 Flow Rate FiO2 11/06/19 12:00 98.6 68 20 90/51 (64) 97 11/06/19 09:00 Room Air 11/06/19 08:00 98.7 72 19 91/62 (72) 97 11/06/19 04:19 99.5 11/06/19 04:00 102.5 103 22 99/60 (73) 96 11/06/19 00:00 98.1 75 18 108/58 (75) 96 11/05/19 21:00 Room Air 11/05/19 20:00 98.2 83 18 128/82 (97) 96 11/05/19 16:00 Room Air 11/05/19 16:00 100.0 98 18 118/89 (99) 96 I&O Intake and Output 11/05/19 11/06/19 19:00 07:00 Intake Total 920 ml Output Total 1000 ml 1201 ml Balance -80 ml -1201 ml Intake Oral 720 ml IV Total 200 ml Output Urine Total 1000 ml 1200 ml Stool Total 1 ml Dressing: saturated Wound: clean Cardiovascular: RSR Respiratory: clear, decreased breath sounds Abdomen: soft, non-tender, present bowel sounds Extremities: no edema, no tenderness, no cyanosis Plan Problems: (1) Abdominal distension Assessment & Plan: abd distention soft non tender ostomy viable and reduced KUB ordered pending results improved comfortable no complaints okay for diet s tolerated d/c planning much improved There is an inferior vena cava filter in place. Bowel gas pattern is unremarkable. Considerable stool is seen in the transverse and distal colon. There is extensive pelvic deformity, with loss of the left femoral head, chronic dislocation of the left femur, and extensive pelvic deformity, particularly on the left. [place] project over the upper pelvis Impression: Possible constipation. 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 [place] Shaped, Full Thickness Sacral Pressure Injury which extends into L ischium. (L)15.4cm x (W)18cm x (D)2.4cm, Undermining clockwise 10-2 by 7.7cm @ 11o'clock. Base of wound is moist,pink with scattered slough at base of wound. Bone is palpable at the Base. No odor or exudate noted. Scattered partial thickness wounds and Serous filled blisters noted to R trochanteric /R Hip areas. Historical scar noted to L groin, L Hip L Buttocks. Bony protrusion noted at L Hip. Full thickness Pressure Injury R Ischium(L)5.4cm x(W)6.9cm x (D)1.8cm, Undermining clockwise 1-4 by 2.7cm @2o'clock, Tunneling@7o'clock 2.9cm. Base of wound is moist pink with scattered slough. Scattered slough noted along borders. NO odor or exudate noted. Stable dry eschar noted to medial R knee 0.7cm x (W)0.4cm. Periwound is erythematous and indurated. No elevation in skin temp noted. L heel has shaved appearance secondary to Hx of Pressure Injuries. Base of heel is pale pink. Bone is palpable. Small area of slough noted within compromised area(L)0.6cm x (W)0.8cm. L Heel Also has shaved appearance with hypertrophic scarring. Base of compromised area is pale pink, Bone is palpable, with scattered loose, dry and scaly skin. Tx.Plan: Cleanse Sacral Wound and R Ischial wounds with Dakin's 0.125% gian. Loosely pack wounds with Hydrogel impregnated Kerlix. Apply Moisture Barrier Paste periwound. Cover with ABD Pads secure with Tegaderm drsg.Daily and prn. Apply Triad Paste to R Hip/R trochanteric areas.Cover with Optifoam drsg. Change every 7 days and prn. Apply Betadine to Medial R Knee. Cover with Optifoam drsg. Change every 7 days and prn. Apply Betadine to R and L Heels. Cover each Heel with Optifoam drsgs. Change every 7 days and prn. Cover Bony Prominences as needed with Optifoam drsgs. Reposition at least every [address] tolerated[address] Pillow between knees. Off-load heels with pillow. APM/SUMI Mattress overlay (15) SEAN (acute kidney injury) (16) Ileostomy prolapse Assessment & Plan: currently reduced but abd distended pending films films reviewed improved okay for diet d/c planning Cornelius Salgado Nov 06, 2019 12:37
[2019-11-06 14:12] LABS: ANION GAP 11 mmol/L (5-15); BLOOD UREA NITROGEN 24 mg/dL (7-18); CALCIUM 9.8 MG/DL (8.5-10.1); CARBON DIOXIDE 26 MMOL/L (21-32); CHLORIDE 95 MMOL/L (98-107); CREATININE 0.6 MG/DL (0.55-1.30); POTASSIUM 3.6 MMOL/L (3.5-5.1); SODIUM 132 MMOL/L (136-145)
--- NOTE | 2019-11-06 14:54 | Cardiac Electrophysiology PN ---
Assessment/Plan Assessment/Plan 1. S/P Septic shock.Resolved On Midodrine, antibiotic and fluid 2. Bradycardia. Resolved. 3. Paraplegia. 4. Urinary tract infection, 5. Decubitus ulcers with sacral decubitus. 6. S/P Ileostomy/ 7. Polyuria, DI. On NS and DDAVP. KAMI RN Subjective Subjective Alert in NAD. Refused BMP earlier but now agreeable. No CP. DC to SNIF pending Objective Last 24 Hour Vital Signs Date Time Temp Pulse Resp B/P (MAP) Pulse Ox O2 Delivery O2 Flow Rate FiO2 11/06/19 12:00 98.6 68 20 90/51 (64) 97 11/06/19 09:00 Room Air 11/06/19 08:00 98.7 72 19 91/62 (72) 97 11/06/19 04:19 99.5 11/06/19 04:00 102.5 103 22 99/60 (73) 96 11/06/19 00:00 98.1 75 18 108/58 (75) 96 11/05/19 21:00 Room Air 11/05/19 20:00 98.2 83 18 128/82 (97) 96 11/05/19 16:00 Room Air 11/05/19 16:00 100.0 98 18 118/89 (99) 96 Intake and Output 11/05/19 11/06/19 19:00 07:00 Intake Total 920 ml Output Total 1000 ml 1201 ml Balance -80 ml -1201 ml Intake Oral 720 ml IV Total 200 ml Output Urine Total 1000 ml 1200 ml Stool Total 1 ml Laboratory Tests Test 11/06/19 13:45 Sodium Level 132 MMOL/L (136-145) L Potassium Level 3.6 MMOL/L (3.5-5.1) Chloride Level 95 MMOL/L (98-107) L Carbon Dioxide Level 26 MMOL/L (21-32) Anion Gap 11 mmol/L (5-15) Blood Urea Nitrogen 24 mg/dL (7-18) H Creatinine 0.6 MG/DL (0.55-1.30) Estimat Glomerular Filtration Rate > 60 mL/min (>60) Glucose Level 142 MG/DL (74-106) H Calcium Level 9.8 MG/DL (8.5-10.1) Microbiology Date/Time Source Procedure Growth Status 11/04/19 12:20 Blood Blood Culture - Preliminary NO GROWTH AFTER 24 HOURS Resulted 11/04/19 12:10 Blood Blood Culture - Preliminary NO GROWTH AFTER 24 HOURS Resulted Objective HEAD AND NECK: No JVD. Right IJ central line. LUNGS: Coarse rhonchi. CARDIOVASCULAR: Regular S1 and S2 with no gallop. ABDOMEN: Soft.S/P Ileostomy EXTREMITIES: No pitting edema, however, has pressure ulcers. Carloz Estes MD Nov 06, 2019 14:54
--- NOTE | 2019-11-06 15:36 | Infectious Diseases Prog Note ---
Assessment/Plan Assessment/Plan ASSESSMENT AND PLAN: 1. sepsis, shock, proteus uti, esbl e.coli uti, possible aspiration pna/hcap vs cap, sacral wound - ? infected, mrsa and vre colonization fevers, supervisor pleating line infection, fungal uti, ? fungemia - zosyn started for persistent fevers - vancomycin x 5 days for supervisor pleating line infection - diflucan x 5 days - reculture for fevers - monitor labs and chest x-rays - line removed 2. ICU care. 3. Sacral wound -wound mostly clean, management per surgery 4. Ostomy malfunction - per surgery 5. Hypertension. 6. Paraplegia. 7. Anemia. 8. History of decubitus ulcer, rule out infection. Infectious diseases is following. The patient on antibiotics. 9. Hypertension treatment per primary care team. 10. Continue treatment per primary consultants. 11. No known drug allergies. 12. Social history is negative. 13. Family history is noncontributory. 14. MAR was noted. 15. Case discussed with RN. Subjective Constitutional: Reports: fatigue HEENT: Denies: congestion Respiratory: Denies: shortness of breath Cardiovascular: Denies: chest pain Gastrointestinal/Abdominal: Reports: diarrhea; Denies: nausea, vomiting Genitourinary: Reports: other - + donohue Neurologic: Denies: headache Psychiatric: Denies: depression Skin: Denies: rash Hematologic: Denies: bleeding Musculoskeletal: Denies: pain Allergies: Coded Allergies: No Known Allergies (Unverified , 08/15/19) Objective Last 24 Hour Vital Signs Date Time Temp Pulse Resp B/P (MAP) Pulse Ox O2 Delivery O2 Flow Rate FiO2 11/06/19 12:00 98.6 68 20 90/51 (64) 97 11/06/19 09:00 Room Air 11/06/19 08:00 98.7 72 19 91/62 (72) 97 11/06/19 04:19 99.5 11/06/19 04:00 102.5 103 22 99/60 (73) 96 11/06/19 00:00 98.1 75 18 108/58 (75) 96 11/05/19 21:00 Room Air 11/05/19 20:00 98.2 83 18 128/82 (97) 96 11/05/19 16:00 Room Air 11/05/19 16:00 100.0 98 18 118/89 (99) 96 Height (Feet): 5 Height (Inches): 7.00 Weight (Pounds): 104 General Appearance: no acute distress HEENT: normocephalic, atraumatic, anicteric, mucous membranes moist Respiratory/Chest: no respiratory distress, no accessory muscle use, crackles/ rales, rhonchi - bilaterally Cardiovascular: normal rate, regular rhythm, no gallop/murmur, no JVD Abdomen: soft, non tender, no organomegaly, non distended Genitourinary: other - + donohue - urine slt cloudy Extremities: no cyanosis Skin: no rash 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 There is some atelectasis at the left lung base as well. Right jugular central venous catheter remains. The heart size is normal. Impression: New/increased bilateral basilar infiltrates, since prior study 2019 Chest x-ray - 10/27/19 - Procedure: XRAY Chest 1v Indication: Shortness of breath Technique: One view of the chest Comparison: 10/25/2019 Findings: There is atelectasis possibly some focal consolidation at the right lung base. Atelectatic changes previously demonstrated at the left lung base have largely cleared. Right jugular central venous catheter remains. The heart size is normal. Impression: Improving left basilar atelectasis. 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 No new consolidation is seen. Pleural space: Unremarkable. The costophrenic angles are sharp. No visible pneumothorax. Heart: Unremarkable. No cardiomegaly. Mediastinum: Unremarkable. Bones/joints: Unremarkable. Vasculature: Mild atherosclerotic calcifications are noted within the aortic arch. Tubes, lines and devices: Stable positioning of a right IJ central venous catheter with the tip in the SVC. Telemetry leads overlie the thorax. IMPRESSION: Persistent subsegmental atelectasis in bilateral lower lungs, not significantly changed compared to the prior exam. Chest x-rasy - 11/03/19 - Procedure: XRAY Chest 1v Indication: Cough Technique: One view of the chest Comparison: 10/29/2019 Findings: There are increased atelectatic changes at the lung bases. Interim removal of previously demonstrated central venous catheter. The pleural spaces are clear. The heart size is normal. Impression: Increasing bilateral basilar atelectasis Interim central venous catheter removal. Microbiology Date/Time Source Procedure Growth Status 11/04/19 12:20 Blood Blood Culture - Preliminary NO GROWTH AFTER 24 HOURS Resulted 11/02/19 13:30 Nasopharynx SARS-CoV-2 RdRp Gene Assay - Final Complete 11/02/19 17:50 Urine,Clean Catch Urine Culture - Preliminary Yeast Species Resulted 11/03/19 08:00 Catheter Site Catheter Tip Culture - Final Staphylococcus Sp Coag Neg Complete Microbiology Date/Time Source Procedure Growth Status 11/04/19 12:20 Blood Blood Culture - Preliminary NO GROWTH AFTER 24 HOURS Resulted 11/04/19 12:10 Blood Blood Culture - Preliminary NO GROWTH AFTER 24 HOURS Resulted Labs Test 11/04/19 12:20 11/06/19 13:45 White Blood Count 7.3 K/UL (4.8-10.8) Red Blood Count 3.42 M/UL (4.70-6.10) Hemoglobin 9.3 G/DL (14.2-18.0) Hematocrit 29.1 % (42.0-52.0) Mean Corpuscular Volume 85 FL (80-99) Mean Corpuscular Hemoglobin 27.2 PG (27.0-31.0) Mean Corpuscular Hemoglobin Concent 31.9 G/DL (32.0-36.0) Red Cell Distribution Width 17.4 % (11.6-14.8) Platelet Count 498 K/UL (150-450) Mean Platelet Volume 4.8 FL (6.5-10.1) Neutrophils (%) (Auto) 59.0 % (45.0-75.0) Lymphocytes (%) (Auto) 25.3 % (20.0-45.0) Monocytes (%) (Auto) 11.6 % (1.0-10.0) Eosinophils (%) (Auto) 1.7 % (0.0-3.0) Basophils (%) (Auto) 2.4 % (0.0-2.0) Sodium Level 131 MMOL/L (136-145) 132 MMOL/L (136-145) Potassium Level 4.1 MMOL/L (3.5-5.1) 3.6 MMOL/L (3.5-5.1) Chloride Level 96 MMOL/L (98-107) 95 MMOL/L (98-107) Carbon Dioxide Level 24 MMOL/L (21-32) 26 MMOL/L (21-32) Anion Gap 11 mmol/L (5-15) 11 mmol/L (5-15) Blood Urea Nitrogen 13 mg/dL (7-18) 24 mg/dL (7-18) Creatinine 0.5 MG/DL (0.55-1.30) 0.6 MG/DL (0.55-1.30) Estimat Glomerular Filtration Rate > 60 mL/min (>60) > 60 mL/min (>60) Glucose Level 99 MG/DL (74-106) 142 MG/DL (74-106) Calcium Level 9.2 MG/DL (8.5-10.1) 9.8 MG/DL (8.5-10.1) Phosphorus Level 3.7 MG/DL (2.5-4.9) Magnesium Level 2.2 MG/DL (1.8-2.4) Laboratory Tests Test 11/06/19 13:45 Sodium Level 132 MMOL/L (136-145) L Potassium Level 3.6 MMOL/L (3.5-5.1) Chloride Level 95 MMOL/L (98-107) L Carbon Dioxide Level 26 MMOL/L (21-32) Anion Gap 11 mmol/L (5-15) Blood Urea Nitrogen 24 mg/dL (7-18) H Creatinine 0.6 MG/DL (0.55-1.30) Estimat Glomerular Filtration Rate > 60 mL/min (>60) Glucose Level 142 MG/DL (74-106) H Calcium Level 9.8 MG/DL (8.5-10.1) Current Medications Medications (Trade) Dose Ordered Sig/Mya Route PRN Reason Start Time Stop Time Status Last Admin Dose Admin Acetaminophen (Tylenol) 650 mg Q4H PRN ORAL Mild Pain (Pain Scale 1-3) 11/05/19 14:00 11/30/19 13:59 11/06/19 03:49 Acetaminophen (Tylenol) 650 mg Q4H PRN ORAL Temp >100.5 11/05/19 16:00 12/05/19 15:59 Acetaminophen/ Hydrocodone Bitart ([place] 5/325) 1 tab Q4H PRN ORAL Moderate Pain (Pain Scale 4-6) 11/05/19 16:00 11/07/19 07:56 Acetaminophen/ Hydrocodone Bitart ([place] 5/325) 2 tab Q4H PRN ORAL Severe Pain (Pain Scale 7-10) 11/05/19 14:00 11/07/19 13:59 11/06/19 13:59 Ascorbic Acid (Vitamin C) 500 mg DAILY ORAL 11/06/19 09:00 11/23/19 08:59 11/06/19 08:48 Baclofen (Lioresal) 10 mg THREE TIMES A DAY ORAL 11/05/19 18:00 11/22/19 17:59 11/06/19 12:25 Clonazepam (KlonoPIN) 0.5 mg Q8H PRN ORAL For Anxiety 11/05/19 16:00 11/07/19 07:53 Dextrose (Dextrose 50%) 25 ml Q30M PRN IV Hypoglycemia 11/05/19 13:30 01/21/20 17:29 Dextrose (Dextrose 50%) 50 ml Q30M PRN IV Hypoglycemia 11/05/19 13:30 01/21/20 17:29 Diphenhydramine HCl (Benadryl) 25 mg Q6H PRN ORAL Itching/Pruritis 11/05/19 14:00 11/22/19 07:54 Docusate Sodium (Colace) 100 mg EVERY 12 HOURS ORAL 11/05/19 21:00 11/22/19 20:59 11/06/19 08:48 Famotidine (Pepcid) 20 mg DAILY ORAL 11/06/19 09:00 01/28/20 09:29 11/06/19 08:48 Ferrous Sulfate (Feosol) 325 mg DAILY ORAL 11/06/19 09:00 01/22/20 08:59 11/06/19 08:48 Fluconazole/ Sodium Chloride 200 ml @ 200 mls/hr Q24H IV 11/05/19 17:00 11/09/19 16:59 11/05/19 17:35 Gabapentin (Neurontin) 400 mg Q8HR ORAL 11/05/19 14:00 12/03/19 21:59 11/06/19 13:06 Heparin Sodium (Porcine) (Heparin 5000 units/ml) 5,000 units EVERY 12 HOURS SUBQ 11/05/19 21:00 12/08/19 08:59 11/06/19 08:50 Midodrine (Pro-Amatine) 10 mg EVERY 8 HOURS ORAL 11/05/19 14:00 01/21/20 17:59 11/06/19 13:06 Ondansetron HCl (Zofran) 4 mg Q6H PRN IVP Nausea & Vomiting 11/05/19 14:00 11/22/19 07:57 Sodium Hypochlorite (Dakin's Quarter Strength) 1 applic DAILY TOPIC 11/06/19 09:00 11/24/19 08:59 11/06/19 08:53 Vancomycin HCl (Vanco pharmacy to dose) 1 ea DAILY PRN MISC Per rx protocol 11/06/19 09:00 11/28/19 16:14 Vancomycin HCl 1 gm/Dextrose 275 ml @ 183.708 mls/hr Q12H IVPB 11/05/19 22:00 11/12/19 09:59 11/06/19 11:12 Zinc Sulfate (Zinc Sulfate) 220 mg DAILY ORAL 11/06/19 09:00 01/22/20 08:59 11/06/19 08:48 Sharif Painting MD Nov 06, 2019 15:36
[2019-11-06 16:00] VITALS: BP 101/63
--- NOTE | 2019-11-06 18:21 | General Progress Note ---
Assessment/Plan Status: stable Assessment/Plan: 59 year old man who presents from [facility] with weakness, encephalopathy, concern for septic shock, possible from UTI vs infected sacral pressure ulcer #Septic shock- improving #Proteus UTI #Acute metabolic encephalopathy -improving #Paraplegia #Sacral pressure ulcer, present on admit #Persistent fevers -DC planning -Off vasopressors -off amikacin, continue diflucan and vancomycin x 5 more days -ZOsyn started 11/06/19 -Per surgery, sacral pressure ulcer does not appear to be infected -Local wound care and offloading #Sinus Bradycardia - resolved -continue telemetry -EP following #Hyponatremia -improving #Hypokalemia -improving -refusing labs -Replete when necessary -DC DDAVP -monitor UOP #Anemia, acute on chronic -2 units RBC 10/28 -Hematology following Full Code I spent 35 minutes on this patient today , and 20 mins was dedicated to counseling and care coordination. Discussed with all consultants, Charge nurse and RNs. I spent an additional 32 min for chart review Subjective Date patient seen: Nov 06, 2019 ROS Limited/Unobtainable: Yes Constitutional: Reports: no symptoms Cardiovascular: Reports: no symptoms Respiratory: Reports: no symptoms Genitourinary: Reports: no symptoms Neurologic/Psychiatric: Reports: no symptoms Endocrine: Reports: no symptoms Hematologic/Lymphatic: Reports: anemia Allergies: Coded Allergies: No Known Allergies (Unverified , 08/15/19) Subjective Febrile again overnight, Zosyn started per ID, has no complaints, agreed to repeat labs today Objective Last 24 Hour Vital Signs Date Time Temp Pulse Resp B/P (MAP) Pulse Ox O2 Delivery O2 Flow Rate FiO2 11/06/19 16:00 97.1 78 19 101/63 (76) 97 11/06/19 12:00 98.6 68 20 90/51 (64) 97 11/06/19 09:00 Room Air 11/06/19 08:00 98.7 72 19 91/62 (72) 97 11/06/19 04:19 99.5 11/06/19 04:00 102.5 103 22 99/60 (73) 96 11/06/19 00:00 98.1 75 18 108/58 (75) 96 11/05/19 21:00 Room Air 11/05/19 20:00 98.2 83 18 128/82 (97) 96 Intake and Output 11/05/19 11/06/19 19:00 07:00 Intake Total 920 ml Output Total 1000 ml 1201 ml Balance -80 ml -1201 ml Intake Oral 720 ml IV Total 200 ml Output Urine Total 1000 ml 1200 ml Stool Total 1 ml Laboratory Tests 11/06/19 13:45: Sodium Level 132L, Potassium Level 3.6, Chloride Level 95L, Carbon Dioxide Level 26, Anion Gap 11, Blood Urea Nitrogen 24H, Creatinine 0.6, Estimat Glomerular Filtration Rate > 60, Glucose Level 142H, Calcium Level 9.8 Height (Feet): 5 Height (Inches): 7.00 Weight (Pounds): 104 Objective General Appearance: no apparent distress, alert, cachetic EENT: normal ENT inspection Neck: normal alignment, supple, normal inspection Cardiovascular: normal peripheral pulses, normal rate, regular rhythm, no gallop/murmur, no JVD Respiratory/Chest: chest wall non-tender, lungs clear, no respiratory distress , no accessory muscle use Abdomen: non tender, soft, no organomegaly, no mass Extremities: other - leg paralysis Edema: no edema noted Arm (L), no edema noted Arm (R), no edema noted Leg (L), no edema noted Leg (R), no edema noted Pedal (L), no edema noted Pedal (R), no edema noted 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
[2019-11-06 20:00] VITALS: BP 101/54
[2019-11-07] VITALS: BP 90/59
[2019-11-07 04:00] VITALS: BP 97/54
[2019-11-07] MEDS: HYDROcodone/Acetamin 5/325 tab ORAL PRN ×2 (05:39→13:14)
[2019-11-07] MEDS: Midodrine 10mg tab ORAL SCH ×3 (05:39→21:12)
[2019-11-07 07:09] LABS: BASOPHILS % (AUTO) 2.7 % (0.0-2.0); EOSINOPHILS % (AUTO) 2.1 % (0.0-3.0); HEMATOCRIT 25.5 % (42.0-52.0); HEMOGLOBIN 8.3 G/DL (14.2-18.0); LYMPHOCYTES % (AUTO) 17.9 % (20.0-45.0); MEAN CORPUSCULAR VOLUME 84 FL (80-99); MONOCYTES % (AUTO) 7.3 % (1.0-10.0); PLATELET COUNT 553 K/UL (150-450); RED BLOOD COUNT 3.05 M/UL (4.70-6.10); RED CELL DISTRIBUTION WIDTH 16.9 % (11.6-14.8); WHITE BLOOD COUNT 12.6 K/UL (4.8-10.8)
--- NOTE | 2019-11-07 07:26 | Hematology/Onc Progress Note ---
Assessment/Plan Assessment/Plan Assessment/recs # Anemia rule out gi bleed, as well as iron deficiency --> hgb 8.2-->7.2-->7.1->6.9-->8.6-->8.3-->9.3 --> anemia panel ordered--> cw acd --> occult blood pending --> gi eval prn --> transfuse as needed --> transfuse 2 units 10/27 # Coagulopathy with elev ptt/inr --> vitk and ffp as needed --> no bleeding noted at this time # Thrombocytosis likely reactive process --> plt 398 # Hypotension likely due to septic shock. Was diuresing heavily at 300 mL an hour. --> Continue on midodrine and dopamine. --> IV antibiotic with vancomycin and meropenem and amikacin-->christel --> in icu, is on pressors --> as per cards # Bradycardia. --> per cards # Paraplegia. # Urinary tract infection --> followed by Dr. Painting on broad-spectrum IV antibiotic. # Decubitus ulcers with sacral decubitus. # Dvt heparin sq Appreciate consultation and chandrakant RN Subjective HEENT: Denies: no symptoms, eye pain, blurred vision, tearing, double vision, ear pain, ear discharge, nose pain, nose congestion, throat pain, throat swelling, mouth pain, mouth swelling, other Cardiovascular: Denies: no symptoms, chest pain, edema, irregular heart rate, lightheadedness, palpitations, syncope, other Respiratory: Denies: no symptoms, cough, shortness of breath, SOB with excertion, SOB at rest, sputum, wheezing, other Gastrointestinal/Abdominal: Denies: no symptoms, abdomen distended, abdominal pain, black stools, tarry stools, blood in stool, constipated, diarrhea, difficulty swallowing, nausea, poor appetite, poor fluid intake, rectal bleeding , vomiting, other Genitourinary: Denies: no symptoms, burning, discharge, frequency, flank pain, hematuria, incontinence, pain, urgency, other Neurologic/Psychiatric: Denies: no symptoms, anxiety, depressed, emotional problems, headache, numbness, paresthesia, pre-existing deficit, seizure, tingling, tremors, weakness, other Hematologic/Lymphatic: Denies: no symptoms, anemia, easy bleeding, easy bruising, adenopathy, other Allergies: Coded Allergies: No Known Allergies (Unverified , 08/15/19) Subjective 10/27 labs again refused this am, yesterday was low, chandrakant rn in icu 10/28 remains in icu, for 2units prbc this am, chandrakant rn, no other events 10/29 s/p prbc, tolerated it well, no bleeding, on 1mcg levo, in icu 10/30 on abx, on levo and overnight no other events, 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\ 10/31 wounds improved, labs noted, no bleeding, hgb lower, refusing care/wound care 11/01 labs noted, no bleeding, no hematochezia, no hemoptysis, cbc ordered 11/02 meds reviewed, labs noted, no bleeding, chandrakant rn, no major changes, hgb 8.3 11/04 labs have been noted, no bleeding, meds reviewed, no hemolysis 11/05 functional colostomy llq, no bleeding, cbc is pending for am 11/06 labs have been refused, hgb 8.3, no bleeding, wbc is higher in am Objective Objective Current Medications Medications (Trade) Dose Ordered Sig/Mya Route PRN Reason Start Time Stop Time Status Last Admin Dose Admin Acetaminophen (Tylenol) 650 mg Q4H PRN ORAL Mild Pain (Pain Scale 1-3) 11/05/19 14:00 11/30/19 13:59 11/06/19 03:49 Acetaminophen (Tylenol) 650 mg Q4H PRN ORAL Temp >100.5 11/05/19 16:00 12/05/19 15:59 Acetaminophen/ Hydrocodone Bitart ([place] 5/325) 1 tab Q4H PRN ORAL Moderate Pain (Pain Scale 4-6) 11/05/19 16:00 11/07/19 07:56 Acetaminophen/ Hydrocodone Bitart ([place] 5/325) 2 tab Q4H PRN ORAL Severe Pain (Pain Scale 7-10) 11/05/19 14:00 11/07/19 13:59 11/07/19 05:39 Ascorbic Acid (Vitamin C) 500 mg DAILY ORAL 11/06/19 09:00 11/23/19 08:59 11/06/19 08:48 Baclofen (Lioresal) 10 mg THREE TIMES A DAY ORAL 11/05/19 18:00 11/22/19 17:59 11/06/19 18:45 Clonazepam (KlonoPIN) 0.5 mg Q8H PRN ORAL For Anxiety 11/05/19 16:00 11/07/19 07:53 Dextrose (Dextrose 50%) 25 ml Q30M PRN IV Hypoglycemia 11/05/19 13:30 01/21/20 17:29 Dextrose (Dextrose 50%) 50 ml Q30M PRN IV Hypoglycemia 11/05/19 13:30 01/21/20 17:29 Diphenhydramine HCl (Benadryl) 25 mg Q6H PRN ORAL Itching/Pruritis 11/05/19 14:00 11/22/19 07:54 Docusate Sodium (Colace) 100 mg EVERY 12 HOURS ORAL 11/05/19 21:00 11/22/19 20:59 11/06/19 20:35 Famotidine (Pepcid) 20 mg DAILY ORAL 11/06/19 09:00 01/28/20 09:29 11/06/19 08:48 Ferrous Sulfate (Feosol) 325 mg DAILY ORAL 11/06/19 09:00 01/22/20 08:59 11/06/19 08:48 Fluconazole/ Sodium Chloride 200 ml @ 200 mls/hr Q24H IV 11/05/19 17:00 11/09/19 16:59 11/06/19 16:12 Gabapentin (Neurontin) 400 mg Q8HR ORAL 11/05/19 14:00 12/03/19 21:59 11/07/19 05:39 Heparin Sodium (Porcine) (Heparin 5000 units/ml) 5,000 units EVERY 12 HOURS SUBQ 11/05/19 21:00 12/08/19 08:59 11/06/19 20:35 Midodrine (Pro-Amatine) 10 mg EVERY 8 HOURS ORAL 11/05/19 14:00 01/21/20 17:59 11/07/19 05:39 Ondansetron HCl (Zofran) 4 mg Q6H PRN IVP Nausea & Vomiting 11/05/19 14:00 11/22/19 07:57 Piperacillin Sod/ Tazobactam Sod 3.375 gm/Dextrose 100 ml @ 25 mls/hr Q8HR@0200,1000,1800 IVPB 11/06/19 18:00 11/13/19 17:59 11/07/19 01:03 Sodium Hypochlorite (Dakin's Quarter Strength) 1 applic DAILY TOPIC 11/06/19 09:00 11/24/19 08:59 11/06/19 08:53 Vancomycin HCl (Vanco pharmacy to dose) 1 ea DAILY PRN MISC Per rx protocol 11/06/19 09:00 11/28/19 16:14 Vancomycin HCl 1 gm/Dextrose 275 ml @ 183.708 mls/hr Q12H IVPB 11/05/19 22:00 11/12/19 09:59 11/06/19 21:35 Zinc Sulfate (Zinc Sulfate) 220 mg DAILY ORAL 11/06/19 09:00 01/22/20 08:59 11/06/19 08:48 Last 24 Hour Vital Signs Date Time Temp Pulse Resp B/P (MAP) Pulse Ox O2 Delivery O2 Flow Rate FiO2 11/07/19 04:00 99.6 93 18 97/54 (68) 98 11/07/19 00:00 99.2 70 16 90/59 (69) 97 11/06/19 21:00 Room Air 11/06/19 20:00 98.6 78 18 101/54 (70) 98 11/06/19 16:00 97.1 78 19 101/63 (76) 97 11/06/19 12:00 98.6 68 20 90/51 (64) 97 11/06/19 09:00 Room Air 11/06/19 08:00 98.7 72 19 91/62 (72) 97 11/06/19 04:19 99.5 11/06/19 04:00 102.5 103 22 99/60 (73) 96 11/06/19 00:00 98.1 75 18 108/58 (75) 96 11/05/19 21:00 Room Air 11/05/19 20:00 98.2 83 18 128/82 (97) 96 11/05/19 16:00 Room Air 11/05/19 16:00 100.0 98 18 118/89 (99) 96 11/05/19 08:56 98.4 11/05/19 08:00 Room Air 11/05/19 08:00 79 11/05/19 08:00 101.5 84 18 94/51 (65) 98 Intake and Output 11/06/19 11/07/19 19:00 07:00 Intake Total 1440 ml 240 ml Output Total 1800 ml Balance 1440 ml -1560 ml Intake Oral 1440 ml 240 ml Output Urine Total 1800 ml # Voids 2 # Bowel Movements 1 Labs Test 11/04/19 12:20 11/06/19 13:45 11/07/19 06:30 White Blood Count 7.3 K/UL (4.8-10.8) 12.6 K/UL (4.8-10.8) Red Blood Count 3.42 M/UL (4.70-6.10) 3.05 M/UL (4.70-6.10) Hemoglobin 9.3 G/DL (14.2-18.0) 8.3 G/DL (14.2-18.0) Hematocrit 29.1 % (42.0-52.0) 25.5 % (42.0-52.0) Mean Corpuscular Volume 85 FL (80-99) 84 FL (80-99) Mean Corpuscular Hemoglobin 27.2 PG (27.0-31.0) 27.3 PG (27.0-31.0) Mean Corpuscular Hemoglobin Concent 31.9 G/DL (32.0-36.0) 32.6 G/DL (32.0-36.0) Red Cell Distribution Width 17.4 % (11.6-14.8) 16.9 % (11.6-14.8) Platelet Count 498 K/UL (150-450) 553 K/UL (150-450) Mean Platelet Volume 4.8 FL (6.5-10.1) 4.5 FL (6.5-10.1) Neutrophils (%) (Auto) 59.0 % (45.0-75.0) 70.0 % (45.0-75.0) Lymphocytes (%) (Auto) 25.3 % (20.0-45.0) 17.9 % (20.0-45.0) Monocytes (%) (Auto) 11.6 % (1.0-10.0) 7.3 % (1.0-10.0) Eosinophils (%) (Auto) 1.7 % (0.0-3.0) 2.1 % (0.0-3.0) Basophils (%) (Auto) 2.4 % (0.0-2.0) 2.7 % (0.0-2.0) Sodium Level 131 MMOL/L (136-145) 132 MMOL/L (136-145) Potassium Level 4.1 MMOL/L (3.5-5.1) 3.6 MMOL/L (3.5-5.1) Chloride Level 96 MMOL/L (98-107) 95 MMOL/L (98-107) Carbon Dioxide Level 24 MMOL/L (21-32) 26 MMOL/L (21-32) Anion Gap 11 mmol/L (5-15) 11 mmol/L (5-15) Blood Urea Nitrogen 13 mg/dL (7-18) 24 mg/dL (7-18) Creatinine 0.5 MG/DL (0.55-1.30) 0.6 MG/DL (0.55-1.30) Estimat Glomerular Filtration Rate > 60 mL/min (>60) > 60 mL/min (>60) Glucose Level 99 MG/DL (74-106) 142 MG/DL (74-106) Calcium Level 9.2 MG/DL (8.5-10.1) 9.8 MG/DL (8.5-10.1) Phosphorus Level 3.7 MG/DL (2.5-4.9) Magnesium Level 2.2 MG/DL (1.8-2.4) Height (Feet): 5 Height (Inches): 7.00 Weight (Pounds): 104 Objective Physical Exam General Appearance: lethargic Lines, tubes and drains: peripheral, central line HEENT: normocephalic Neck: non-tender, normal alignment Respiratory/Chest: lungs clear Cardiovascular/Chest: normal peripheral pulses, normal rate, regular rhythm Abdomen: normal bowel sounds, non tender ++ llq colostomy Martínez Capps MD Nov 07, 2019 07:26
[2019-11-07 07:34] LABS: ALANINE AMINOTRANSFERASE 17 U/L (12-78); ALBUMIN 1.9 G/DL (3.4-5.0); ALBUMIN/GLOBULIN RATIO 0.4 (1.0-2.7); ALKALINE PHOSPHATASE 274 U/L (46-116); ANION GAP 10 mmol/L (5-15); ASPARTATE AMINO TRANSFERASE 19 U/L (15-37); BILIRUBIN,TOTAL 0.5 MG/DL (0.2-1.0); BLOOD UREA NITROGEN 20 mg/dL (7-18); CALCIUM 8.8 MG/DL (8.5-10.1); CARBON DIOXIDE 25 MMOL/L (21-32); CHLORIDE 95 MMOL/L (98-107); CREATININE 0.7 MG/DL (0.55-1.30); POTASSIUM 4.6 MMOL/L (3.5-5.1); SODIUM 130 MMOL/L (136-145)
[2019-11-07 08:00] VITALS: BP 88/51
[2019-11-07] MEDS: Ascorbic Acid 500mg tab ORAL SCH (08:15)
[2019-11-07] MEDS: Docusate 100mg cap ORAL SCH ×2 (08:15→21:00)
[2019-11-07] MEDS: Zinc Sulfate 220mg ORAL SCH (08:15)
[2019-11-07] MEDS: Heparin 5000 units/ml inj SUBQ SCH ×2 (08:21→21:20)
[2019-11-07] MEDS: Dakin's 0.125% Soln (Quarter Strength) 16oz TOPIC SCH (08:23)
--- NOTE | 2019-11-07 10:22 | Pulmonology Progress Note ---
Subjective ROS Limited/Unobtainable: Yes Interval Events: Looking better Constitutional: Reports: fatigue HEENT: Repors: no symptoms Respiratory: Reports: no symptoms Cardiovascular: Reports: no symptoms Gastrointestinal/Abdominal: Reports: diarrhea; Denies: nausea, vomiting Genitourinary: Reports: no symptoms Psychiatric: Denies: depression Skin: Denies: rash Musculoskeletal: Denies: pain Allergies: Coded Allergies: No Known Allergies (Unverified , 08/15/19) All Systems: reviewed and negative except above Objective Last 24 Hour Vital Signs Date Time Temp Pulse Resp B/P (MAP) Pulse Ox O2 Delivery O2 Flow Rate FiO2 11/07/19 09:00 Room Air 11/07/19 08:00 100.6 72 18 88/51 (63) 96 11/07/19 04:00 99.6 93 18 97/54 (68) 98 11/07/19 00:00 99.2 70 16 90/59 (69) 97 11/06/19 21:00 Room Air 11/06/19 20:00 98.6 78 18 101/54 (70) 98 11/06/19 16:00 97.1 78 19 101/63 (76) 97 11/06/19 12:00 98.6 68 20 90/51 (64) 97 Intake and Output 11/06/19 11/07/19 19:00 07:00 Intake Total 1440 ml 240 ml Output Total 1800 ml Balance 1440 ml -1560 ml Intake Oral 1440 ml 240 ml Output Urine Total 1800 ml # Voids 2 # Bowel Movements 1 General Appearance: no acute distress HEENT: normocephalic Respiratory: chest wall non-tender, lungs clear Cardiovascular: normal peripheral pulses, regular rhythm Abdomen: normal bowel sounds Extremities: no cyanosis Microbiology Date/Time Source Procedure Growth Status 11/04/19 12:20 Blood Blood Culture - Preliminary NO GROWTH AFTER 48 HOURS Resulted 11/04/19 12:10 Blood Blood Culture - Preliminary NO GROWTH AFTER 48 HOURS Resulted 11/06/19 16:29 Indwelling Cath Urine Culture - Preliminary NO GROWTH Resulted Laboratory Tests 11/06/19 13:45: Sodium Level 132L, Potassium Level 3.6, Chloride Level 95L, Carbon Dioxide Level 26, Anion Gap 11, Blood Urea Nitrogen 24H, Creatinine 0.6, Estimat Glomerular Filtration Rate > 60, Glucose Level 142H, Calcium Level 9.8 11/07/19 06:30: Sodium Level 130L, Potassium Level 4.6, Chloride Level 95L, Carbon Dioxide Level 25, Anion Gap 10, Blood Urea Nitrogen 20H, Creatinine 0.7, Estimat Glomerular Filtration Rate > 60, Glucose Level 129H, Calcium Level 8.8, White Blood Count 12.6H, Red Blood Count 3.05L, Hemoglobin 8.3L, Hematocrit 25.5L, Mean Corpuscular Volume 84, Mean Corpuscular Hemoglobin 27.3, Mean Corpuscular Hemoglobin Concent 32.6, Red Cell Distribution Width 16.9H, Platelet Count 553H , Mean Platelet Volume 4.5L, Neutrophils (%) (Auto) 70.0, Lymphocytes (%) (Auto ) 17.9L, Monocytes (%) (Auto) 7.3, Eosinophils (%) (Auto) 2.1, Basophils (%) ( Auto) 2.7H, Total Bilirubin 0.5, Aspartate Amino Transf (AST/SGOT) 19, Alanine Aminotransferase (ALT/SGPT) 17, Alkaline Phosphatase 274H, Total Protein 6.8, Albumin 1.9L, Globulin 4.9, Albumin/Globulin Ratio 0.4L 11/07/19 09:30: Vancomycin Level Trough > 50.0H Current Medications Medications (Trade) Dose Ordered Sig/Mya Route PRN Reason Start Time Stop Time Status Last Admin Dose Admin Acetaminophen (Tylenol) 650 mg Q4H PRN ORAL Mild Pain (Pain Scale 1-3) 11/05/19 14:00 11/30/19 13:59 11/07/19 08:36 Acetaminophen (Tylenol) 650 mg Q4H PRN ORAL Temp >100.5 11/05/19 16:00 12/05/19 15:59 Acetaminophen/ Hydrocodone Bitart ([place] 5/325) 2 tab Q4H PRN ORAL Severe Pain (Pain Scale 7-10) 11/05/19 14:00 11/07/19 13:59 11/07/19 05:39 Ascorbic Acid (Vitamin C) 500 mg DAILY ORAL 11/06/19 09:00 11/23/19 08:59 11/07/19 08:15 Baclofen (Lioresal) 10 mg THREE TIMES A DAY ORAL 11/05/19 18:00 11/22/19 17:59 11/07/19 08:14 Dextrose (Dextrose 50%) 25 ml Q30M PRN IV Hypoglycemia 11/05/19 13:30 01/21/20 17:29 Dextrose (Dextrose 50%) 50 ml Q30M PRN IV Hypoglycemia 11/05/19 13:30 01/21/20 17:29 Diphenhydramine HCl (Benadryl) 25 mg Q6H PRN ORAL Itching/Pruritis 11/05/19 14:00 11/22/19 07:54 Docusate Sodium (Colace) 100 mg EVERY 12 HOURS ORAL 11/05/19 21:00 11/22/19 20:59 11/07/19 08:15 Famotidine (Pepcid) 20 mg DAILY ORAL 11/06/19 09:00 01/28/20 09:29 11/07/19 08:15 Ferrous Sulfate (Feosol) 325 mg DAILY ORAL 11/06/19 09:00 01/22/20 08:59 11/07/19 08:14 Fluconazole/ Sodium Chloride 200 ml @ 200 mls/hr Q24H IV 11/05/19 17:00 11/09/19 16:59 11/06/19 16:12 Gabapentin (Neurontin) 400 mg Q8HR ORAL 11/05/19 14:00 12/03/19 21:59 11/07/19 05:39 Heparin Sodium (Porcine) (Heparin 5000 units/ml) 5,000 units EVERY 12 HOURS SUBQ 11/05/19 21:00 12/08/19 08:59 11/07/19 08:21 Midodrine (Pro-Amatine) 10 mg EVERY 8 HOURS ORAL 11/05/19 14:00 01/21/20 17:59 11/07/19 05:39 Ondansetron HCl (Zofran) 4 mg Q6H PRN IVP Nausea & Vomiting 11/05/19 14:00 11/22/19 07:57 Piperacillin Sod/ Tazobactam Sod 3.375 gm/Dextrose 100 ml @ 25 mls/hr Q8HR@0200,1000,1800 IVPB 11/06/19 18:00 11/13/19 17:59 11/07/19 01:03 Sodium Hypochlorite (Dakin's Quarter Strength) 1 applic DAILY TOPIC 11/06/19 09:00 11/24/19 08:59 11/07/19 08:23 Vancomycin HCl (Vanco pharmacy to dose) 1 ea DAILY PRN MISC Per rx protocol 11/06/19 09:00 11/28/19 16:14 Vancomycin HCl 1 gm/Dextrose 275 ml @ 183.708 mls/hr Q12H IVPB 11/05/19 22:00 11/12/19 09:59 11/06/19 21:35 Zinc Sulfate (Zinc Sulfate) 220 mg DAILY ORAL 11/06/19 09:00 01/22/20 08:59 11/07/19 08:15 Assessment/Plan Assessment/Plan IMPRESSION: 1. Septic shock. resolved 2. Complicated UTI with history of previous ESBL infection. 3. Paraplegia. 4. Sacral decubitus. 5. [facility] resident. DISCUSSION: DVT and GI prophylaxes. ID consult and follow-up noted. I will follow carefully. continue Oxygen, doing well on room air at this time. Gregg Curtis M.D. Gregg Curtis MD Nov 07, 2019 10:22
[2019-11-07 12:00] VITALS: BP 114/51
--- NOTE | 2019-11-07 12:00 | Diagnostic Imaging Report ---
Indication: Shortness of breath Technique: One view of the chest Comparison: 11/03/2019 Findings: Bilateral basilar atelectatic changes appear similar to the previous exam. There may be some patchy left perihilar and bilateral peripheral consolidation. The heart size is normal. Impression: New or increased faint patchy peripheral and left perihilar consolidative opacities, possibly reflecting multifocal pneumonia, since prior study 03/04/2019 Persistent bilateral basilar atelectatic changes
[2019-11-07 12:22] LABS: APPEARANCE,URINE SLIGHTLY CLOUDY; COLOR,URINE PALE YELLOW; PH,URINE 7 (4.5-8.0); PROTEIN,URINE 1+ (NEGATIVE)
[2019-11-07 12:23] LABS: BILIRUBIN, URINE NEGATIVE (NEGATIVE); GLUCOSE, URINE (UA) NEGATIVE (NEGATIVE); KETONES,URINE NEGATIVE (NEGATIVE); LEUKOCYTE ESTERASE ,URINE 2+ (NEGATIVE); NITRITE,URINE NEGATIVE (NEGATIVE); UROBILINOGEN,URINE NORMAL MG/DL (0.0-1.0)
--- NOTE | 2019-11-07 13:17 | Nephrology Progress Note ---
Assessment/Plan Plan #Polyuria - r/o DI vs dopamine effect??- however sodium remains in normal range #Shock #UTI # infected sacral pressure ulcer #Acute metabolic encephalopathy #Paraplegia #Sacral pressure ulcer #Hypokalemia #Anemia - DCed IVF - DCed desmopressin - assess UOP closely - continue midodrine 10 TID - antibiotics per ID - monitor lytes - monitor for vanoc toxicity - avoid nephrotoxins - daily weights - strict I&Os time spent 70 min- greater than 50% on care coordination and counseling Subjective Constitutional: Reports: weakness HEENT: Denies: no symptoms, eye pain, blurred vision, tearing, double vision, ear pain, ear discharge, nose pain, nose congestion, throat pain, throat swelling, mouth pain, mouth swelling, other Genitourinary: Denies: no symptoms, burning, discharge, frequency, flank pain, hematuria, incontinence, pain, urgency, other Neurologic/Psychiatric: Denies: no symptoms, anxiety, depressed, emotional problems, headache, numbness, paresthesia, pre-existing deficit, seizure, tingling, tremors, weakness, other Subjective sodium stable at 130 UOP 30401 holding desmopressin off IVF and assess UOP Objective Objective Last 24 Hour Vital Signs Date Time Temp Pulse Resp B/P (MAP) Pulse Ox O2 Delivery O2 Flow Rate FiO2 11/07/19 12:00 98.2 63 20 114/51 (72) 98 11/07/19 09:06 99.0 11/07/19 09:00 Room Air 11/07/19 08:00 100.6 72 18 88/51 (63) 96 11/07/19 04:00 99.6 93 18 97/54 (68) 98 11/07/19 00:00 99.2 70 16 90/59 (69) 97 11/06/19 21:00 Room Air 11/06/19 20:00 98.6 78 18 101/54 (70) 98 11/06/19 16:00 97.1 78 19 101/63 (76) 97 Intake and Output 11/06/19 11/07/19 19:00 07:00 Intake Total 1440 ml 240 ml Output Total 1800 ml Balance 1440 ml -1560 ml Intake Oral 1440 ml 240 ml Output Urine Total 1800 ml # Voids 2 # Bowel Movements 1 Laboratory Tests 8/24/20 13:45: Sodium Level 132L, Potassium Level 3.6, Chloride Level 95L, Carbon Dioxide Level 26, Anion Gap 11, Blood Urea Nitrogen 24H, Creatinine 0.6, Estimat Glomerular Filtration Rate > 60, Glucose Level 142H, Calcium Level 9.8 11/07/19 06:30: Sodium Level 130L, Potassium Level 4.6, Chloride Level 95L, Carbon Dioxide Level 25, Anion Gap 10, Blood Urea Nitrogen 20H, Creatinine 0.7, Estimat Glomerular Filtration Rate > 60, Glucose Level 129H, Calcium Level 8.8, White Blood Count 12.6H, Red Blood Count 3.05L, Hemoglobin 8.3L, Hematocrit 25.5L, Mean Corpuscular Volume 84, Mean Corpuscular Hemoglobin 27.3, Mean Corpuscular Hemoglobin Concent 32.6, Red Cell Distribution Width 16.9H, Platelet Count 553H , Mean Platelet Volume 4.5L, Neutrophils (%) (Auto) 70.0, Lymphocytes (%) (Auto ) 17.9L, Monocytes (%) (Auto) 7.3, Eosinophils (%) (Auto) 2.1, Basophils (%) ( Auto) 2.7H, Total Bilirubin 0.5, Aspartate Amino Transf (AST/SGOT) 19, Alanine Aminotransferase (ALT/SGPT) 17, Alkaline Phosphatase 274H, Total Protein 6.8, Albumin 1.9L, Globulin 4.9, Albumin/Globulin Ratio 0.4L 11/07/19 09:30: Vancomycin Level Trough > 50.0H 11/07/19 11:30: Urine Color Pale yellow, Urine Appearance Slightly cloudy, Urine pH 7, Urine Specific [place] 1.005, Urine Protein 1+H, Urine Glucose (UA) Negative, Urine Ketones Negative, Urine Blood 1+H, Urine Nitrite Negative, Urine Bilirubin Negative, Urine Urobilinogen Normal, Urine Leukocyte Esterase 2+H, Urine RBC 0, Urine WBC 2-4, Urine Squamous Epithelial Cells None, Urine Bacteria Few, Urine Mucus Height (Feet): 5 Height (Inches): 7.00 Weight (Pounds): 104 Sienna Georges M.D. Nov 07, 2019 13:17
--- NOTE | 2019-11-07 14:14 | Surgery Progress Note ---
Surgery Progress Note Subjective Symptoms: improved, pain absent, tolerating diet, voiding well, passing flatus , BM Objective Last 24 Hour Vital Signs Date Time Temp Pulse Resp B/P (MAP) Pulse Ox O2 Delivery O2 Flow Rate FiO2 11/07/19 12:00 98.2 63 20 114/51 (72) 98 11/07/19 09:06 99.0 11/07/19 09:00 Room Air 11/07/19 08:00 100.6 72 18 88/51 (63) 96 11/07/19 04:00 99.6 93 18 97/54 (68) 98 11/07/19 00:00 99.2 70 16 90/59 (69) 97 11/06/19 21:00 Room Air 11/06/19 20:00 98.6 78 18 101/54 (70) 98 11/06/19 16:00 97.1 78 19 101/63 (76) 97 I&O Intake and Output 11/06/19 11/07/19 19:00 07:00 Intake Total 1440 ml 240 ml Output Total 1800 ml Balance 1440 ml -1560 ml Intake Oral 1440 ml 240 ml Output Urine Total 1800 ml # Voids 2 # Bowel Movements 1 Dressing: dry Wound: clean Cardiovascular: RSR Respiratory: clear Abdomen: soft, non-tender, present bowel sounds Extremities: no edema, no tenderness, no cyanosis Laboratory Tests Test 11/07/19 06:30 11/07/19 09:30 11/07/19 11:30 White Blood Count 12.6 K/UL (4.8-10.8) H Red Blood Count 3.05 M/UL (4.70-6.10) L Hemoglobin 8.3 G/DL (14.2-18.0) L Hematocrit 25.5 % (42.0-52.0) L Mean Corpuscular Volume 84 FL (80-99) Mean Corpuscular Hemoglobin 27.3 PG (27.0-31.0) Mean Corpuscular Hemoglobin Concent 32.6 G/DL (32.0-36.0) Red Cell Distribution Width 16.9 % (11.6-14.8) H Platelet Count 553 K/UL (150-450) H Mean Platelet Volume 4.5 FL (6.5-10.1) L Neutrophils (%) (Auto) 70.0 % (45.0-75.0) Lymphocytes (%) (Auto) 17.9 % (20.0-45.0) L Monocytes (%) (Auto) 7.3 % (1.0-10.0) Eosinophils (%) (Auto) 2.1 % (0.0-3.0) Basophils (%) (Auto) 2.7 % (0.0-2.0) H Sodium Level 130 MMOL/L (136-145) L Potassium Level 4.6 MMOL/L (3.5-5.1) Chloride Level 95 MMOL/L (98-107) L Carbon Dioxide Level 25 MMOL/L (21-32) Anion Gap 10 mmol/L (5-15) Blood Urea Nitrogen 20 mg/dL (7-18) H Creatinine 0.7 MG/DL (0.55-1.30) Estimat Glomerular Filtration Rate > 60 mL/min (>60) Glucose Level 129 MG/DL (74-106) H Calcium Level 8.8 MG/DL (8.5-10.1) Total Bilirubin 0.5 MG/DL (0.2-1.0) Aspartate Amino Transf (AST/SGOT) 19 U/L (15-37) Alanine Aminotransferase (ALT/SGPT) 17 U/L (12-78) Alkaline Phosphatase 274 U/L (46-116) H Total Protein 6.8 G/DL (6.4-8.2) Albumin 1.9 G/DL (3.4-5.0) L Globulin 4.9 g/dL Albumin/Globulin Ratio 0.4 (1.0-2.7) L Vancomycin Level Trough > 50.0 ug/mL (5.0-12.0) H Urine Color Pale yellow Urine Appearance Slightly cloudy Urine pH 7 (4.5-8.0) Urine Specific [place] 1.005 (1.005-1.035) Urine Protein 1+ (NEGATIVE) H Urine Glucose (UA) Negative (NEGATIVE) Urine Ketones Negative (NEGATIVE) Urine Blood 1+ (NEGATIVE) H Urine Nitrite Negative (NEGATIVE) Urine Bilirubin Negative (NEGATIVE) Urine Urobilinogen Normal MG/DL (0.0-1.0) Urine Leukocyte Esterase 2+ (NEGATIVE) H Urine RBC 0 /HPF (0 - 0) Urine WBC 2-4 /HPF (0 - 0) Urine Squamous Epithelial Cells None /LPF (NONE/OCC) Urine Bacteria Few /HPF (NONE) Urine Mucus /LPF (NONE/OCC) Plan Problems: (1) Abdominal distension Assessment & Plan: abd distention soft non tender ostomy viable and reduced KUB ordered pending results improved comfortable no complaints okay for diet s tolerated d/c planning much improved There is an inferior vena cava filter in place. Bowel gas pattern is unremarkable. Considerable stool is seen in the transverse and distal colon. There is extensive pelvic deformity, with loss of the left femoral head, chronic dislocation of the left femur, and extensive pelvic deformity, particularly on the left. Adi project over the upper pelvis Impression: Possible constipation. 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 [place] Shaped, Full Thickness Sacral Pressure Injury which extends into L ischium. (L)15.4cm x (W)18cm x (D)2.4cm, Undermining clockwise 10-2 by 7.7cm @ 11o'clock. Base of wound is moist,pink with scattered slough at base of wound. Bone is palpable at the Base. No odor or exudate noted. Scattered partial thickness wounds and Serous filled blisters noted to R trochanteric /R Hip areas. Historical scar noted to L groin, L Hip L Buttocks. Bony protrusion noted at L Hip. Full thickness Pressure Injury R Ischium(L)5.4cm x(W)6.9cm x (D)1.8cm, Undermining clockwise 1-4 by 2.7cm @2o'clock, Tunneling@7o'clock 2.9cm. Base of wound is moist pink with scattered slough. Scattered slough noted along borders. NO odor or exudate noted. Stable dry eschar noted to medial R knee 0.7cm x (W)0.4cm. Periwound is erythematous and indurated. No elevation in skin temp noted. L heel has shaved appearance secondary to Hx of Pressure Injuries. Base of heel is pale pink. Bone is palpable. Small area of slough noted within compromised area(L)0.6cm x (W)0.8cm. L Heel Also has shaved appearance with hypertrophic scarring. Base of compromised area is pale pink, Bone is palpable, with scattered loose, dry and scaly skin. Tx.Plan: Cleanse Sacral Wound and R Ischial wounds with Dakin's 0.125% gian. Loosely pack wounds with Hydrogel impregnated Kerlix. Apply Moisture Barrier Paste periwound. Cover with ABD Pads secure with Tegaderm drsg.Daily and prn. Apply Triad Paste to R Hip/R trochanteric areas.Cover with Optifoam drsg. Change every 7 days and prn. Apply Betadine to Medial R Knee. Cover with Optifoam drsg. Change every 7 days and prn. Apply Betadine to R and L Heels. Cover each Heel with Optifoam drsgs. Change every 7 days and prn. Cover Bony Prominences as needed with Optifoam drsgs. Reposition at least every [address] tolerated[address] Pillow between knees. Off-load heels with pillow. APM/SUMI Mattress overlay (15) SEAN (acute kidney injury) (16) Ileostomy prolapse Assessment & Plan: currently reduced but abd distended pending films films reviewed improved okay for diet d/c planning Cornelius Salgado Nov 07, 2019 14:14
[2019-11-07 16:00] VITALS: BP 89/45
--- NOTE | 2019-11-07 17:53 | Cardiac Electrophysiology PN ---
Assessment/Plan Assessment/Plan 1. S/P Septic shock.Resolved On Midodrine, antibiotic and iv fluid 2. Bradycardia. Resolved. 3. Paraplegia. 4. Urinary tract infection, 5. Decubitus ulcers with sacral decubitus. 6. S/P Ileostomy/ 7. Polyuria, DI. On NS and DDAVP. KAMI RN Subjective Subjective Alert in NAD. No CP. DC to SNIF pending Objective Last 24 Hour Vital Signs Date Time Temp Pulse Resp B/P (MAP) Pulse Ox O2 Delivery O2 Flow Rate FiO2 11/07/19 12:00 98.2 63 20 114/51 (72) 98 11/07/19 09:06 99.0 11/07/19 09:00 Room Air 11/07/19 08:00 100.6 72 18 88/51 (63) 96 11/07/19 04:00 99.6 93 18 97/54 (68) 98 11/07/19 00:00 99.2 70 16 90/59 (69) 97 11/06/19 21:00 Room Air 11/06/19 20:00 98.6 78 18 101/54 (70) 98 Intake and Output 11/06/19 11/07/19 19:00 07:00 Intake Total 1440 ml 240 ml Output Total 1800 ml Balance 1440 ml -1560 ml Intake Oral 1440 ml 240 ml Output Urine Total 1800 ml # Voids 2 # Bowel Movements 1 Laboratory Tests Test 11/07/19 06:30 11/07/19 09:30 11/07/19 11:30 White Blood Count 12.6 K/UL (4.8-10.8) H Red Blood Count 3.05 M/UL (4.70-6.10) L Hemoglobin 8.3 G/DL (14.2-18.0) L Hematocrit 25.5 % (42.0-52.0) L Mean Corpuscular Volume 84 FL (80-99) Mean Corpuscular Hemoglobin 27.3 PG (27.0-31.0) Mean Corpuscular Hemoglobin Concent 32.6 G/DL (32.0-36.0) Red Cell Distribution Width 16.9 % (11.6-14.8) H Platelet Count 553 K/UL (150-450) H Mean Platelet Volume 4.5 FL (6.5-10.1) L Neutrophils (%) (Auto) 70.0 % (45.0-75.0) Lymphocytes (%) (Auto) 17.9 % (20.0-45.0) L Monocytes (%) (Auto) 7.3 % (1.0-10.0) Eosinophils (%) (Auto) 2.1 % (0.0-3.0) Basophils (%) (Auto) 2.7 % (0.0-2.0) H Sodium Level 130 MMOL/L (136-145) L Potassium Level 4.6 MMOL/L (3.5-5.1) Chloride Level 95 MMOL/L (98-107) L Carbon Dioxide Level 25 MMOL/L (21-32) Anion Gap 10 mmol/L (5-15) Blood Urea Nitrogen 20 mg/dL (7-18) H Creatinine 0.7 MG/DL (0.55-1.30) Estimat Glomerular Filtration Rate > 60 mL/min (>60) Glucose Level 129 MG/DL (74-106) H Calcium Level 8.8 MG/DL (8.5-10.1) Total Bilirubin 0.5 MG/DL (0.2-1.0) Aspartate Amino Transf (AST/SGOT) 19 U/L (15-37) Alanine Aminotransferase (ALT/SGPT) 17 U/L (12-78) Alkaline Phosphatase 274 U/L (46-116) H Total Protein 6.8 G/DL (6.4-8.2) Albumin 1.9 G/DL (3.4-5.0) L Globulin 4.9 g/dL Albumin/Globulin Ratio 0.4 (1.0-2.7) L Vancomycin Level Trough > 50.0 ug/mL (5.0-12.0) H Urine Color Pale yellow Urine Appearance Slightly cloudy Urine pH 7 (4.5-8.0) Urine Specific [place] 1.005 (1.005-1.035) Urine Protein 1+ (NEGATIVE) H Urine Glucose (UA) Negative (NEGATIVE) Urine Ketones Negative (NEGATIVE) Urine Blood 1+ (NEGATIVE) H Urine Nitrite Negative (NEGATIVE) Urine Bilirubin Negative (NEGATIVE) Urine Urobilinogen Normal MG/DL (0.0-1.0) Urine Leukocyte Esterase 2+ (NEGATIVE) H Urine RBC 0 /HPF (0 - 0) Urine WBC 2-4 /HPF (0 - 0) Urine Squamous Epithelial Cells None /LPF (NONE/OCC) Urine Bacteria Few /HPF (NONE) Urine Mucus /LPF (NONE/OCC) Microbiology Date/Time Source Procedure Growth Status 11/06/19 16:29 Indwelling Cath Urine Culture - Preliminary NO GROWTH Resulted Objective HEAD AND NECK: No JVD. Right IJ central line. LUNGS: Coarse rhonchi. CARDIOVASCULAR: Regular S1 and S2 with no gallop. ABDOMEN: Soft.S/P Ileostomy EXTREMITIES: No pitting edema, however, has pressure ulcers. Carloz Estes MD Nov 07, 2019 17:53
--- NOTE | 2019-11-07 18:08 | General Progress Note ---
Assessment/Plan Status: stable Assessment/Plan: 59 year old man who presents from [facility] with weakness, encephalopathy, concern for septic shock, possible from UTI vs infected sacral pressure ulcer #Septic shock- improving #Proteus UTI #Acute metabolic encephalopathy -improving #Paraplegia #Sacral pressure ulcer, present on admit #Persistent fevers -DC planning- plan to DC in AM if remains afebrile -Off vasopressors -off amikacin, continue diflucan and vancomycin x 5 more days -ZOsyn started 11/06/19 -Per surgery, sacral pressure ulcer does not appear to be infected -Local wound care and offloading #Sinus Bradycardia - resolved -continue telemetry -EP following #Hyponatremia -improving #Hypokalemia -improving -refusing labs -Replete when necessary -DC DDAVP -monitor UOP #Anemia, acute on chronic -2 units RBC 10/28 -Hematology following Full Code I spent 35 minutes on this patient today , and 20 mins was dedicated to counseling and care coordination. Discussed with all consultants, Charge nurse and RNs. I spent an additional 32 min for chart review Subjective Date patient seen: Nov 07, 2019 ROS Limited/Unobtainable: No Allergies: Coded Allergies: No Known Allergies (Unverified , 08/15/19) Subjective Afebrile overnight, saturating well on room air. Cont Zosyn per ID, has no complaints. Objective Last 24 Hour Vital Signs Date Time Temp Pulse Resp B/P (MAP) Pulse Ox O2 Delivery O2 Flow Rate FiO2 11/07/19 12:00 98.2 63 20 114/51 (72) 98 11/07/19 09:06 99.0 11/07/19 09:00 Room Air 11/07/19 08:00 100.6 72 18 88/51 (63) 96 11/07/19 04:00 99.6 93 18 97/54 (68) 98 11/07/19 00:00 99.2 70 16 90/59 (69) 97 11/06/19 21:00 Room Air 11/06/19 20:00 98.6 78 18 101/54 (70) 98 Intake and Output 11/06/19 11/07/19 19:00 07:00 Intake Total 1440 ml 240 ml Output Total 1800 ml Balance 1440 ml -1560 ml Intake Oral 1440 ml 240 ml Output Urine Total 1800 ml # Voids 2 # Bowel Movements 1 Laboratory Tests 11/07/19 06:30: White Blood Count 12.6H, Red Blood Count 3.05L, Hemoglobin 8.3L, Hematocrit 25.5L, Mean Corpuscular Volume 84, Mean Corpuscular Hemoglobin 27.3, Mean Corpuscular Hemoglobin Concent 32.6, Red Cell Distribution Width 16.9H, Platelet Count 553H, Mean Platelet Volume 4.5L, Neutrophils (%) (Auto) 70.0, Lymphocytes (%) (Auto) 17.9L, Monocytes (%) (Auto) 7.3, Eosinophils (%) (Auto) 2.1, Basophils (%) (Auto) 2.7H, Sodium Level 130L, Potassium Level 4.6, Chloride Level 95L, Carbon Dioxide Level 25, Anion Gap 10, Blood Urea Nitrogen 20H, Creatinine 0.7, Estimat Glomerular Filtration Rate > 60, Glucose Level 129H , Calcium Level 8.8, Total Bilirubin 0.5, Aspartate Amino Transf (AST/SGOT) 19, Alanine Aminotransferase (ALT/SGPT) 17, Alkaline Phosphatase 274H, Total Protein 6.8, Albumin 1.9L, Globulin 4.9, Albumin/Globulin Ratio 0.4L 11/07/19 09:30: Vancomycin Level Trough > 50.0H 11/07/19 11:30: Urine Color Pale yellow, Urine Appearance Slightly cloudy, Urine pH 7, Urine Specific [place] 1.005, Urine Protein 1+H, Urine Glucose (UA) Negative, Urine Ketones Negative, Urine Blood 1+H, Urine Nitrite Negative, Urine Bilirubin Negative, Urine Urobilinogen Normal, Urine Leukocyte Esterase 2+H, Urine RBC 0, Urine WBC 2-4, Urine Squamous Epithelial Cells None, Urine Bacteria Few, Urine Mucus Height (Feet): 5 Height (Inches): 7.00 Weight (Pounds): 104 Objective General Appearance: no apparent distress, alert, cachetic EENT: normal ENT inspection Neck: normal alignment, supple, normal inspection Cardiovascular: normal peripheral pulses, normal rate, regular rhythm, no gallop/murmur, no JVD Respiratory/Chest: chest wall non-tender, lungs clear, no respiratory distress , no accessory muscle use Abdomen: non tender, soft, no organomegaly, no mass Extremities: other - leg paralysis Edema: no edema noted Arm (L), no edema noted Arm (R), no edema noted Leg (L), no edema noted Leg (R), no edema noted Pedal (L), no edema noted Pedal (R), no edema noted 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
[2019-11-07 20:00] VITALS: BP 94/53
[2019-11-08] VITALS: BP 90/51
[2019-11-08 04:00] VITALS: BP 88/51
[2019-11-08] MEDS: Midodrine 10mg tab ORAL SCH ×3 (05:22→21:34)
--- NOTE | 2019-11-08 07:45 | Hematology/Onc Progress Note ---
Assessment/Plan Assessment/Plan Assessment/recs # Anemia rule out gi bleed, as well as iron deficiency --> hgb 8.2-->7.2-->7.1->6.9-->8.6-->8.3-->9.3 --> anemia panel ordered--> cw acd --> occult blood pending --> gi eval prn --> transfuse as needed --> transfuse 2 units 10/27 --> po iron to continue # Coagulopathy with elev ptt/inr --> vitk and ffp as needed --> no bleeding noted at this time # Thrombocytosis likely reactive process --> plt 398 # Hypotension likely due to septic shock. Was diuresing heavily at 300 mL an hour. --> Continue on midodrine and dopamine. --> IV antibiotic with vancomycin and meropenem and amikacin-->christel --> in icu, is on pressors --> as per cards # Bradycardia. --> per cards # Paraplegia. # Urinary tract infection --> followed by Dr. Painting on broad-spectrum IV antibiotic. # Decubitus ulcers with sacral decubitus. # Dvt heparin sq Appreciate consultation and chandrakant RN Subjective Constitutional: Denies: no symptoms, chills, fever, malaise, weakness, other HEENT: Denies: no symptoms, eye pain, blurred vision, tearing, double vision, ear pain, ear discharge, nose pain, nose congestion, throat pain, throat swelling, mouth pain, mouth swelling, other Cardiovascular: Denies: no symptoms, chest pain, edema, irregular heart rate, lightheadedness, palpitations, syncope, other Genitourinary: Denies: no symptoms, burning, discharge, frequency, flank pain, hematuria, incontinence, pain, urgency, other Neurologic/Psychiatric: Denies: no symptoms, anxiety, depressed, emotional problems, headache, numbness, paresthesia, pre-existing deficit, seizure, tingling, tremors, weakness, other Endocrine: Denies: no symptoms, excessive sweating, flushing, intolerance to cold, intolerance to heat, increased hunger, increased thirst, increased urine, unexplained weight gain, unexplained weight loss, other Allergies: Coded Allergies: No Known Allergies (Unverified , 08/15/19) Subjective 10/27 labs again refused this am, yesterday was low, chandrakant rn in icu 10/28 remains in icu, for 2units prbc this am, chandrakant rn, no other events 10/29 s/p prbc, tolerated it well, no bleeding, on 1mcg levo, in icu 10/30 on abx, on levo and overnight no other events, 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\ 10/31 wounds improved, labs noted, no bleeding, hgb lower, refusing care/wound care 11/01 labs noted, no bleeding, no hematochezia, no hemoptysis, cbc ordered 11/02 meds reviewed, labs noted, no bleeding, chandrakant rn, no major changes, hgb 8.3 11/04 labs have been noted, no bleeding, meds reviewed, no hemolysis 11/05 functional colostomy llq, no bleeding, cbc is pending for am 11/06 labs have been refused, hgb 8.3, no bleeding, wbc is higher in am 10/28 labs have initially been refused, no bleeding in am, wbc 13, on abx Objective Objective Current Medications Medications (Trade) Dose Ordered Sig/Mya Route PRN Reason Start Time Stop Time Status Last Admin Dose Admin Acetaminophen (Tylenol) 650 mg Q4H PRN ORAL Mild Pain (Pain Scale 1-3) 11/05/19 14:00 11/30/19 13:59 11/07/19 08:36 Acetaminophen (Tylenol) 650 mg Q4H PRN ORAL Temp >100.5 11/05/19 16:00 12/05/19 15:59 11/07/19 21:12 Ascorbic Acid (Vitamin C) 500 mg DAILY ORAL 11/06/19 09:00 11/23/19 08:59 11/07/19 08:15 Baclofen (Lioresal) 10 mg THREE TIMES A DAY ORAL 11/05/19 18:00 11/22/19 17:59 11/07/19 17:21 Dextrose (Dextrose 50%) 25 ml Q30M PRN IV Hypoglycemia 11/05/19 13:30 01/21/20 17:29 Dextrose (Dextrose 50%) 50 ml Q30M PRN IV Hypoglycemia 11/05/19 13:30 01/21/20 17:29 Diphenhydramine HCl (Benadryl) 25 mg Q6H PRN ORAL Itching/Pruritis 11/05/19 14:00 11/22/19 07:54 Docusate Sodium (Colace) 100 mg EVERY 12 HOURS ORAL 11/05/19 21:00 11/22/19 20:59 11/07/19 08:15 Famotidine (Pepcid) 20 mg DAILY ORAL 11/06/19 09:00 01/28/20 09:29 11/07/19 08:15 Ferrous Sulfate (Feosol) 325 mg DAILY ORAL 11/06/19 09:00 01/22/20 08:59 11/07/19 08:14 Fluconazole/ Sodium Chloride 200 ml @ 200 mls/hr Q24H IV 11/05/19 17:00 11/09/19 16:59 11/07/19 17:21 Gabapentin (Neurontin) 400 mg Q8HR ORAL 11/05/19 14:00 12/03/19 21:59 11/08/19 05:22 Heparin Sodium (Porcine) (Heparin 5000 units/ml) 5,000 units EVERY 12 HOURS SUBQ 11/05/19 21:00 12/08/19 08:59 11/07/19 21:20 Midodrine (Pro-Amatine) 10 mg EVERY 8 HOURS ORAL 11/05/19 14:00 01/21/20 17:59 11/08/19 05:22 Ondansetron HCl (Zofran) 4 mg Q6H PRN IVP Nausea & Vomiting 11/05/19 14:00 11/22/19 07:57 Piperacillin Sod/ Tazobactam Sod 3.375 gm/Dextrose 100 ml @ 25 mls/hr Q8HR@0200,1000,1800 IVPB 11/06/19 18:00 11/13/19 17:59 11/08/19 02:40 Sodium Hypochlorite (Dakin's Quarter Strength) 1 applic DAILY TOPIC 11/06/19 09:00 11/24/19 08:59 11/07/19 08:23 Vancomycin HCl (Vanco pharmacy to dose) 1 ea DAILY PRN MISC Per rx protocol 11/06/19 09:00 11/28/19 16:14 Zinc Sulfate (Zinc Sulfate) 220 mg DAILY ORAL 11/06/19 09:00 01/22/20 08:59 11/07/19 08:15 Last 24 Hour Vital Signs Date Time Temp Pulse Resp B/P (MAP) Pulse Ox O2 Delivery O2 Flow Rate FiO2 11/08/19 04:00 99.2 87 18 88/51 (63) 97 11/08/19 00:00 99.0 80 17 90/51 (64) 97 11/07/19 21:42 100.9 11/07/19 20:18 Room Air 11/07/19 20:00 100.6 101 20 94/53 (67) 97 11/07/19 16:00 97.5 71 18 89/45 (60) 99 11/07/19 12:00 98.2 63 20 114/51 (72) 98 11/07/19 09:06 99.0 11/07/19 09:00 Room Air 11/07/19 08:00 100.6 72 18 88/51 (63) 96 11/07/19 04:00 99.6 93 18 97/54 (68) 98 11/07/19 00:00 99.2 70 16 90/59 (69) 97 11/06/19 21:00 Room Air 11/06/19 20:00 98.6 78 18 101/54 (70) 98 11/06/19 16:00 97.1 78 19 101/63 (76) 97 11/06/19 12:00 98.6 68 20 90/51 (64) 97 11/06/19 09:00 Room Air 11/06/19 08:00 98.7 72 19 91/62 (72) 97 Intake and Output 11/07/19 11/08/19 19:00 07:00 Intake Total 600 ml 480 ml Output Total 1600 ml 900 ml Balance -1000 ml -420 ml Intake Oral 600 ml 480 ml Output Urine Total 1600 ml 900 ml # Voids 1 # Bowel Movements 1 Labs Test 11/06/19 13:45 11/07/19 06:30 11/07/19 09:30 11/07/19 11:30 Sodium Level 132 MMOL/L (136-145) 130 MMOL/L (136-145) Potassium Level 3.6 MMOL/L (3.5-5.1) 4.6 MMOL/L (3.5-5.1) Chloride Level 95 MMOL/L (98-107) 95 MMOL/L (98-107) Carbon Dioxide Level 26 MMOL/L (21-32) 25 MMOL/L (21-32) Anion Gap 11 mmol/L (5-15) 10 mmol/L (5-15) Blood Urea Nitrogen 24 mg/dL (7-18) 20 mg/dL (7-18) Creatinine 0.6 MG/DL (0.55-1.30) 0.7 MG/DL (0.55-1.30) Estimat Glomerular Filtration Rate > 60 mL/min (>60) > 60 mL/min (>60) Glucose Level 142 MG/DL (74-106) 129 MG/DL (74-106) Calcium Level 9.8 MG/DL (8.5-10.1) 8.8 MG/DL (8.5-10.1) White Blood Count 12.6 K/UL (4.8-10.8) Red Blood Count 3.05 M/UL (4.70-6.10) Hemoglobin 8.3 G/DL (14.2-18.0) Hematocrit 25.5 % (42.0-52.0) Mean Corpuscular Volume 84 FL (80-99) Mean Corpuscular Hemoglobin 27.3 PG (27.0-31.0) Mean Corpuscular Hemoglobin Concent 32.6 G/DL (32.0-36.0) Red Cell Distribution Width 16.9 % (11.6-14.8) Platelet Count 553 K/UL (150-450) Mean Platelet Volume 4.5 FL (6.5-10.1) Neutrophils (%) (Auto) 70.0 % (45.0-75.0) Lymphocytes (%) (Auto) 17.9 % (20.0-45.0) Monocytes (%) (Auto) 7.3 % (1.0-10.0) Eosinophils (%) (Auto) 2.1 % (0.0-3.0) Basophils (%) (Auto) 2.7 % (0.0-2.0) Total Bilirubin 0.5 MG/DL (0.2-1.0) Aspartate Amino Transf (AST/SGOT) 19 U/L (15-37) Alanine Aminotransferase (ALT/SGPT) 17 U/L (12-78) Alkaline Phosphatase 274 U/L (46-116) Total Protein 6.8 G/DL (6.4-8.2) Albumin 1.9 G/DL (3.4-5.0) Globulin 4.9 g/dL Albumin/Globulin Ratio 0.4 (1.0-2.7) Vancomycin Level Trough > 50.0 ug/mL (5.0-12.0) Urine Color Pale yellow Urine Appearance Slightly cloudy Urine pH 7 (4.5-8.0) Urine Specific Isabella 1.005 (1.005-1.035) Urine Protein 1+ (NEGATIVE) Urine Glucose (UA) Negative (NEGATIVE) Urine Ketones Negative (NEGATIVE) Urine Blood 1+ (NEGATIVE) Urine Nitrite Negative (NEGATIVE) Urine Bilirubin Negative (NEGATIVE) Urine Urobilinogen Normal MG/DL (0.0-1.0) Urine Leukocyte Esterase 2+ (NEGATIVE) Urine RBC 0 /HPF (0 - 0) Urine WBC 2-4 /HPF (0 - 0) Urine Squamous Epithelial Cells None /LPF (NONE/OCC) Urine Bacteria Few /HPF (NONE) Urine Mucus /LPF (NONE/OCC) Height (Feet): 5 Height (Inches): 7.00 Weight (Pounds): 103 Objective Physical Exam General Appearance: lethargic Lines, tubes and drains: peripheral, central line HEENT: normocephalic Neck: non-tender, normal alignment Respiratory/Chest: lungs clear Cardiovascular/Chest: normal peripheral pulses, normal rate, regular rhythm Abdomen: normal bowel sounds, non tender ++ llq colostomy Martínez Capps MD Nov 08, 2019 07:45
[2019-11-08 08:00] VITALS: BP 107/63
[2019-11-08] MEDS: Ascorbic Acid 500mg tab ORAL SCH (08:38)
[2019-11-08] MEDS: Zinc Sulfate 220mg ORAL SCH (08:38)
[2019-11-08] MEDS: Heparin 5000 units/ml inj SUBQ SCH ×2 (08:49→21:37)
[2019-11-08] MEDS: Dakin's 0.125% Soln (Quarter Strength) 16oz TOPIC SCH (08:49)
[2019-11-08] MEDS: Docusate 100mg cap ORAL SCH ×2 (08:50→21:00)
--- NOTE | 2019-11-08 09:02 | Nephrology Progress Note ---
Assessment/Plan Plan #Polyuria - r/o DI vs dopamine effect??- however sodium remains in normal range #Shock #UTI # infected sacral pressure ulcer #Acute metabolic encephalopathy #Paraplegia #Sacral pressure ulcer #Hypokalemia #Anemia - DCed IVF - DCed desmopressin - assess UOP closely - continue midodrine 10 TID - antibiotics per ID - monitor lytes - monitor for vanoc toxicity - avoid nephrotoxins - daily weights - strict I&Os time spent 70 min- greater than 50% on care coordination and counseling Subjective ROS Limited/Unobtainable: No Constitutional: Reports: weakness HEENT: Denies: no symptoms, eye pain, blurred vision, tearing, double vision, ear pain, ear discharge, nose pain, nose congestion, throat pain, throat swelling, mouth pain, mouth swelling, other Genitourinary: Denies: no symptoms, burning, discharge, frequency, flank pain, hematuria, incontinence, pain, urgency, other Neurologic/Psychiatric: Denies: no symptoms, anxiety, depressed, emotional problems, headache, numbness, paresthesia, pre-existing deficit, seizure, tingling, tremors, weakness, other Subjective sodium stable at 130 UOP [id number] holding desmopressin off IVF and assess UOP Objective Objective Last 24 Hour Vital Signs Date Time Temp Pulse Resp B/P (MAP) Pulse Ox O2 Delivery O2 Flow Rate FiO2 11/08/19 08:16 Room Air 11/08/19 04:00 99.2 87 18 88/51 (63) 97 11/08/19 00:00 99.0 80 17 90/51 (64) 97 11/07/19 21:42 100.9 11/07/19 20:18 Room Air 11/07/19 20:00 100.6 101 20 94/53 (67) 97 11/07/19 16:00 97.5 71 18 89/45 (60) 99 11/07/19 12:00 98.2 63 20 114/51 (72) 98 11/07/19 09:06 99.0 Intake and Output 11/07/19 11/08/19 19:00 07:00 Intake Total 600 ml 480 ml Output Total 1600 ml 900 ml Balance -1000 ml -420 ml Intake Oral 600 ml 480 ml Output Urine Total 1600 ml 900 ml # Voids 1 # Bowel Movements 1 Laboratory Tests 11/07/19 09:30: Vancomycin Level Trough > 50.0H 11/07/19 11:30: Urine Color Pale yellow, Urine Appearance Slightly cloudy, Urine pH 7, Urine Specific Bonita 1.005, Urine Protein 1+H, Urine Glucose (UA) Negative, Urine Ketones Negative, Urine Blood 1+H, Urine Nitrite Negative, Urine Bilirubin Negative, Urine Urobilinogen Normal, Urine Leukocyte Esterase 2+H, Urine RBC 0, Urine WBC 2-4, Urine Squamous Epithelial Cells None, Urine Bacteria Few, Urine Mucus Height (Feet): 5 Height (Inches): 7.00 Weight (Pounds): 103 Sienna Georges M.D. Nov 08, 2019 09:02
[2019-11-08 09:12] LABS: BASOPHILS % (AUTO) 1.7 % (0.0-2.0); EOSINOPHILS % (AUTO) 2.6 % (0.0-3.0); HEMATOCRIT 26.1 % (42.0-52.0); HEMOGLOBIN 8.3 G/DL (14.2-18.0); LYMPHOCYTES % (AUTO) 20.8 % (20.0-45.0); MEAN CORPUSCULAR VOLUME 85 FL (80-99); MONOCYTES % (AUTO) 8.8 % (1.0-10.0); NEUTROPHILS % (AUTO) 66.1 % (45.0-75.0); PLATELET COUNT 608 K/UL (150-450); RED BLOOD COUNT 3.08 M/UL (4.70-6.10); RED CELL DISTRIBUTION WIDTH 16.5 % (11.6-14.8); WHITE BLOOD COUNT 10.1 K/UL (4.8-10.8)
[2019-11-08 09:19] LABS: ANION GAP 11 mmol/L (5-15); BLOOD UREA NITROGEN 21 mg/dL (7-18); CARBON DIOXIDE 27 MMOL/L (21-32); CHLORIDE 97 MMOL/L (98-107); CREATININE 0.7 MG/DL (0.55-1.30); PHOSPHORUS 4.1 MG/DL (2.5-4.9); POTASSIUM 3.5 MMOL/L (3.5-5.1); SODIUM 135 MMOL/L (136-145)
--- NOTE | 2019-11-08 09:38 | Pulmonology Progress Note ---
Subjective ROS Limited/Unobtainable: No Interval Events: Looking better Constitutional: Reports: fatigue HEENT: Repors: no symptoms Respiratory: Reports: no symptoms Cardiovascular: Reports: no symptoms Gastrointestinal/Abdominal: Reports: diarrhea; Denies: nausea, vomiting Genitourinary: Reports: no symptoms Psychiatric: Denies: depression Skin: Denies: rash Musculoskeletal: Denies: pain Allergies: Coded Allergies: No Known Allergies (Unverified , 08/15/19) All Systems: reviewed and negative except above Objective Last 24 Hour Vital Signs Date Time Temp Pulse Resp B/P (MAP) Pulse Ox O2 Delivery O2 Flow Rate FiO2 11/08/19 09:09 99.8 11/08/19 08:16 Room Air 11/08/19 08:00 101.7 86 20 107/63 (78) 96 11/08/19 04:00 99.2 87 18 88/51 (63) 97 11/08/19 00:00 99.0 80 17 90/51 (64) 97 11/07/19 21:42 100.9 11/07/19 20:18 Room Air 11/07/19 20:00 100.6 101 20 94/53 (67) 97 11/07/19 16:00 97.5 71 18 89/45 (60) 99 11/07/19 12:00 98.2 63 20 114/51 (72) 98 Intake and Output 11/07/19 11/08/19 19:00 07:00 Intake Total 600 ml 480 ml Output Total 1600 ml 900 ml Balance -1000 ml -420 ml Intake Oral 600 ml 480 ml Output Urine Total 1600 ml 900 ml # Voids 1 # Bowel Movements 1 General Appearance: no acute distress HEENT: normocephalic Respiratory: chest wall non-tender, lungs clear Cardiovascular: normal peripheral pulses, regular rhythm Abdomen: normal bowel sounds Extremities: no cyanosis Microbiology Date/Time Source Procedure Growth Status 11/06/19 16:29 Indwelling Cath Urine Culture - Preliminary NO GROWTH AFTER 24 HOURS Resulted Laboratory Tests 11/07/19 11:30: Urine Color Pale yellow, Urine Appearance Slightly cloudy, Urine pH 7, Urine Specific [place] 1.005, Urine Protein 1+H, Urine Glucose (UA) Negative, Urine Ketones Negative, Urine Blood 1+H, Urine Nitrite Negative, Urine Bilirubin Negative, Urine Urobilinogen Normal, Urine Leukocyte Esterase 2+H, Urine RBC 0, Urine WBC 2-4, Urine Squamous Epithelial Cells None, Urine Bacteria Few, Urine Mucus 11/08/19 08:55: White Blood Count 10.1, Red Blood Count 3.08L, Hemoglobin 8.3L, Hematocrit 26.1L , Mean Corpuscular Volume 85, Mean Corpuscular Hemoglobin 27.0, Mean Corpuscular Hemoglobin Concent 31.8L, Red Cell Distribution Width 16.5H, Platelet Count 608H, Mean Platelet Volume 4.5L, Neutrophils (%) (Auto) 66.1, Lymphocytes (%) (Auto) 20.8, Monocytes (%) (Auto) 8.8, Eosinophils (%) (Auto) 2.6, Basophils (%) (Auto) 1.7, Sodium Level 135L, Potassium Level 3.5, Chloride Level 97L, Carbon Dioxide Level 27, Anion Gap 11, Blood Urea Nitrogen 21H, Creatinine 0.7, Estimat Glomerular Filtration Rate > 60, Glucose Level 169H, Calcium Level 9.0, Phosphorus Level 4.1, Magnesium Level 1.9, Random Vancomycin Level 9.3 Current Medications Medications (Trade) Dose Ordered Sig/Mya Route PRN Reason Start Time Stop Time Status Last Admin Dose Admin Acetaminophen (Tylenol) 650 mg Q4H PRN ORAL Mild Pain (Pain Scale 1-3) 11/05/19 14:00 11/30/19 13:59 11/08/19 08:39 Acetaminophen (Tylenol) 650 mg Q4H PRN ORAL Temp >100.5 11/05/19 16:00 12/05/19 15:59 11/07/19 21:12 Ascorbic Acid (Vitamin C) 500 mg DAILY ORAL 11/06/19 09:00 11/23/19 08:59 11/08/19 08:38 Baclofen (Lioresal) 10 mg THREE TIMES A DAY ORAL 11/05/19 18:00 11/22/19 17:59 11/08/19 08:38 Dextrose (Dextrose 50%) 25 ml Q30M PRN IV Hypoglycemia 11/05/19 13:30 01/21/20 17:29 Dextrose (Dextrose 50%) 50 ml Q30M PRN IV Hypoglycemia 11/05/19 13:30 01/21/20 17:29 Diphenhydramine HCl (Benadryl) 25 mg Q6H PRN ORAL Itching/Pruritis 11/05/19 14:00 11/22/19 07:54 Docusate Sodium (Colace) 100 mg EVERY 12 HOURS ORAL 11/05/19 21:00 11/22/19 20:59 11/07/19 08:15 Famotidine (Pepcid) 20 mg DAILY ORAL 11/06/19 09:00 01/28/20 09:29 11/08/19 08:38 Ferrous Sulfate (Feosol) 325 mg DAILY ORAL 11/06/19 09:00 01/22/20 08:59 11/08/19 08:38 Fluconazole/ Sodium Chloride 200 ml @ 200 mls/hr Q24H IV 11/05/19 17:00 11/09/19 16:59 11/07/19 17:21 Gabapentin (Neurontin) 400 mg Q8HR ORAL 11/05/19 14:00 12/03/19 21:59 11/08/19 05:22 Heparin Sodium (Porcine) (Heparin 5000 units/ml) 5,000 units EVERY 12 HOURS SUBQ 11/05/19 21:00 12/08/19 08:59 11/08/19 08:49 Midodrine (Pro-Amatine) 10 mg EVERY 8 HOURS ORAL 11/05/19 14:00 01/21/20 17:59 11/08/19 05:22 Ondansetron HCl (Zofran) 4 mg Q6H PRN IVP Nausea & Vomiting 11/05/19 14:00 11/22/19 07:57 Piperacillin Sod/ Tazobactam Sod 3.375 gm/Dextrose 100 ml @ 25 mls/hr Q8HR@0200,1000,1800 IVPB 11/06/19 18:00 11/13/19 17:59 11/08/19 02:40 Sodium Hypochlorite (Dakin's Quarter Strength) 1 applic DAILY TOPIC 11/06/19 09:00 11/24/19 08:59 11/08/19 08:49 Sodium Chloride 500 ml @ 999 mls/hr Q31M IV 11/08/19 09:30 11/08/19 10:30 Vancomycin HCl (Vanco pharmacy to dose) 1 ea DAILY PRN MISC Per rx protocol 11/06/19 09:00 11/28/19 16:14 Zinc Sulfate (Zinc Sulfate) 220 mg DAILY ORAL 11/06/19 09:00 01/22/20 08:59 11/08/19 08:38 Assessment/Plan Assessment/Plan IMPRESSION: 1. Septic shock. resolved 2. Complicated UTI with history of previous ESBL infection. 3. Paraplegia. 4. Sacral decubitus. 5. care home resident. DISCUSSION: DVT and GI prophylaxes. ID consult and follow-up noted. I will follow carefully. continue Oxygen, doing well on room air at this time. Gregg Curtis M.D. Gregg Curtis MD Nov 08, 2019 09:38
[2019-11-08] MEDS: Vancomycin 750mg/NS 275ml IVPB SCH ×2 (11:46)
[2019-11-08 11:52] VITALS: BP 90/51
--- NOTE | 2019-11-08 12:21 | General Progress Note ---
Assessment/Plan Status: stable Assessment/Plan: 59 year old man who presents from [facility] with weakness, encephalopathy, concern for septic shock, possible from UTI vs infected sacral pressure ulcer #Septic shock- improving #Proteus UTI #Acute metabolic encephalopathy -improving #Paraplegia #Sacral pressure ulcer, present on admit #Persistent fevers -DC planning- cont to spike fevers -Off vasopressors -off amikacin, continue diflucan and vancomycin x 5 more days -ZOsyn started 11/06/19 -Per surgery, sacral pressure ulcer does not appear to be infected -Local wound care and offloading #Sinus Bradycardia - resolved -continue telemetry -EP following #Hyponatremia -improving #Hypokalemia -improving -refusing labs -Replete when necessary -DC DDAVP -monitor UOP #Anemia, acute on chronic -2 units RBC 10/28 -Hematology following Full Code I spent 35 minutes on this patient today , and 20 mins was dedicated to counseling and care coordination. Discussed with all consultants, Charge nurse and RNs. I spent an additional 32 min for chart review Subjective Date patient seen: Nov 08, 2019 ROS Limited/Unobtainable: No Allergies: Coded Allergies: No Known Allergies (Unverified , 08/15/19) Subjective Febrile overnight, saturating well on room air. Cont Zosyn per ID, has no complaints. Objective Last 24 Hour Vital Signs Date Time Temp Pulse Resp B/P (MAP) Pulse Ox O2 Delivery O2 Flow Rate FiO2 11/08/19 11:52 98.2 65 17 90/51 (64) 98 11/08/19 09:09 99.8 11/08/19 08:16 Room Air 11/08/19 08:00 101.7 86 20 107/63 (78) 96 11/08/19 04:00 99.2 87 18 88/51 (63) 97 11/08/19 00:00 99.0 80 17 90/51 (64) 97 11/07/19 21:42 100.9 11/07/19 20:18 Room Air 11/07/19 20:00 100.6 101 20 94/53 (67) 97 11/07/19 16:00 97.5 71 18 89/45 (60) 99 Intake and Output 11/07/19 11/08/19 19:00 07:00 Intake Total 600 ml 480 ml Output Total 1600 ml 900 ml Balance -1000 ml -420 ml Intake Oral 600 ml 480 ml Output Urine Total 1600 ml 900 ml # Voids 1 # Bowel Movements 1 Laboratory Tests 11/08/19 08:55: White Blood Count 10.1, Red Blood Count 3.08L, Hemoglobin 8.3L, Hematocrit 26.1L , Mean Corpuscular Volume 85, Mean Corpuscular Hemoglobin 27.0, Mean Corpuscular Hemoglobin Concent 31.8L, Red Cell Distribution Width 16.5H, Platelet Count 608H, Mean Platelet Volume 4.5L, Neutrophils (%) (Auto) 66.1, Lymphocytes (%) (Auto) 20.8, Monocytes (%) (Auto) 8.8, Eosinophils (%) (Auto) 2.6, Basophils (%) (Auto) 1.7, Sodium Level 135L, Potassium Level 3.5, Chloride Level 97L, Carbon Dioxide Level 27, Anion Gap 11, Blood Urea Nitrogen 21H, Creatinine 0.7, Estimat Glomerular Filtration Rate > 60, Glucose Level 169H, Calcium Level 9.0, Phosphorus Level 4.1, Magnesium Level 1.9, Random Vancomycin Level 9.3 Height (Feet): 5 Height (Inches): 7.00 Weight (Pounds): 103 Objective General Appearance: no apparent distress, alert, cachetic EENT: normal ENT inspection Neck: normal alignment, supple, normal inspection Cardiovascular: normal peripheral pulses, normal rate, regular rhythm, no gallop/murmur, no JVD Respiratory/Chest: chest wall non-tender, lungs clear, no respiratory distress , no accessory muscle use Abdomen: non tender, soft, no organomegaly, no mass Extremities: other - leg paralysis Edema: no edema noted Arm (L), no edema noted Arm (R), no edema noted Leg (L), no edema noted Leg (R), no edema noted Pedal (L), no edema noted Pedal (R), no edema noted Generalized 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
--- NOTE | 2019-11-08 12:57 | Surgery Progress Note ---
Surgery Progress Note Subjective Symptoms: improved, tolerating diet, passing flatus Objective Last 24 Hour Vital Signs Date Time Temp Pulse Resp B/P (MAP) Pulse Ox O2 Delivery O2 Flow Rate FiO2 11/08/19 11:52 98.2 65 17 90/51 (64) 98 11/08/19 09:09 99.8 11/08/19 08:16 Room Air 11/08/19 08:00 101.7 86 20 107/63 (78) 96 11/08/19 04:00 99.2 87 18 88/51 (63) 97 11/08/19 00:00 99.0 80 17 90/51 (64) 97 11/07/19 21:42 100.9 11/07/19 20:18 Room Air 11/07/19 20:00 100.6 101 20 94/53 (67) 97 11/07/19 16:00 97.5 71 18 89/45 (60) 99 I&O Intake and Output 11/07/19 11/08/19 19:00 07:00 Intake Total 600 ml 480 ml Output Total 1600 ml 900 ml Balance -1000 ml -420 ml Intake Oral 600 ml 480 ml Output Urine Total 1600 ml 900 ml # Voids 1 # Bowel Movements 1 Dressing: other Wound: other Cardiovascular: RSR Respiratory: decreased breath sounds Abdomen: soft, non-tender, present bowel sounds Extremities: no tenderness, no cyanosis Laboratory Tests Test 11/08/19 08:55 White Blood Count 10.1 K/UL (4.8-10.8) Red Blood Count 3.08 M/UL (4.70-6.10) L Hemoglobin 8.3 G/DL (14.2-18.0) L Hematocrit 26.1 % (42.0-52.0) L Mean Corpuscular Volume 85 FL (80-99) Mean Corpuscular Hemoglobin 27.0 PG (27.0-31.0) Mean Corpuscular Hemoglobin Concent 31.8 G/DL (32.0-36.0) L Red Cell Distribution Width 16.5 % (11.6-14.8) H Platelet Count 608 K/UL (150-450) H Mean Platelet Volume 4.5 FL (6.5-10.1) L Neutrophils (%) (Auto) 66.1 % (45.0-75.0) Lymphocytes (%) (Auto) 20.8 % (20.0-45.0) Monocytes (%) (Auto) 8.8 % (1.0-10.0) Eosinophils (%) (Auto) 2.6 % (0.0-3.0) Basophils (%) (Auto) 1.7 % (0.0-2.0) Sodium Level 135 MMOL/L (136-145) L Potassium Level 3.5 MMOL/L (3.5-5.1) Chloride Level 97 MMOL/L (98-107) L Carbon Dioxide Level 27 MMOL/L (21-32) Anion Gap 11 mmol/L (5-15) Blood Urea Nitrogen 21 mg/dL (7-18) H Creatinine 0.7 MG/DL (0.55-1.30) Estimat Glomerular Filtration Rate > 60 mL/min (>60) Glucose Level 169 MG/DL (74-106) H Calcium Level 9.0 MG/DL (8.5-10.1) Phosphorus Level 4.1 MG/DL (2.5-4.9) Magnesium Level 1.9 MG/DL (1.8-2.4) Random Vancomycin Level 9.3 ug/mL Plan Problems: (1) Abdominal distension Assessment & Plan: abd distention soft non tender ostomy viable and reduced KUB ordered pending results improved comfortable no complaints okay for diet s tolerated d/c planning much improved There is an inferior vena cava filter in place. Bowel gas pattern is unremarkable. Considerable stool is seen in the transverse and distal colon. There is extensive pelvic deformity, with loss of the left femoral head, chronic dislocation of the left femur, and extensive pelvic deformity, particularly on the left. [place] project over the upper pelvis Impression: Possible constipation. 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 [place] Shaped, Full Thickness Sacral Pressure Injury which extends into L ischium. (L)15.4cm x (W)18cm x (D)2.4cm, Undermining clockwise 10-2 by 7.7cm @ 11o'clock. Base of wound is moist,pink with scattered slough at base of wound. Bone is palpable at the Base. No odor or exudate noted. Scattered partial thickness wounds and Serous filled blisters noted to R trochanteric /R Hip areas. Historical scar noted to L groin, L Hip L Buttocks. Bony protrusion noted at L Hip. Full thickness Pressure Injury R Ischium(L)5.4cm x(W)6.9cm x (D)1.8cm, Undermining clockwise 1-4 by 2.7cm @2o'clock, Tunneling@7o'clock 2.9cm. Base of wound is moist pink with scattered slough. Scattered slough noted along borders. NO odor or exudate noted. Stable dry eschar noted to medial R knee 0.7cm x (W)0.4cm. Periwound is erythematous and indurated. No elevation in skin temp noted. L heel has shaved appearance secondary to Hx of Pressure Injuries. Base of heel is pale pink. Bone is palpable. Small area of slough noted within compromised area(L)0.6cm x (W)0.8cm. L Heel Also has shaved appearance with hypertrophic scarring. Base of compromised area is pale pink, Bone is palpable, with scattered loose, dry and scaly skin. Tx.Plan: Cleanse Sacral Wound and R Ischial wounds with Dakin's 0.125% gian. Loosely pack wounds with Hydrogel impregnated Kerlix. Apply Moisture Barrier Paste periwound. Cover with ABD Pads secure with Tegaderm drsg.Daily and prn. Apply Triad Paste to R Hip/R trochanteric areas.Cover with Optifoam drsg. Change every 7 days and prn. Apply Betadine to Medial R Knee. Cover with Optifoam drsg. Change every 7 days and prn. Apply Betadine to R and L Heels. Cover each Heel with Optifoam drsgs. Change every 7 days and prn. Cover Bony Prominences as needed with Optifoam drsgs. Reposition at least every 2 [address] tolerated[address] Pillow between knees. Off-load heels with pillow. 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
--- NOTE | 2019-11-08 14:58 | Cardiac Electrophysiology PN ---
Assessment/Plan Assessment/Plan 1. S/P Septic shock.Resolved. Now febrile again On Midodrine, antibiotic and iv fluid 2. Bradycardia. Resolved. 3. Paraplegia. 4. Urinary tract infection, 5. Decubitus ulcers with sacral decubitus. 6. S/P Ileostomy/ 7. Polyuria, DI. On NS and DDAVP. KAMI RN Subjective Subjective Alert in NAD. No CP. DC to [facility] cancelled as had T 101.7 Objective Last 24 Hour Vital Signs Date Time Temp Pulse Resp B/P (MAP) Pulse Ox O2 Delivery O2 Flow Rate FiO2 11/08/19 11:52 98.2 65 17 90/51 (64) 98 11/08/19 09:09 99.8 11/08/19 08:16 Room Air 11/08/19 08:00 101.7 86 20 107/63 (78) 96 11/08/19 04:00 99.2 87 18 88/51 (63) 97 11/08/19 00:00 99.0 80 17 90/51 (64) 97 11/07/19 21:42 100.9 11/07/19 20:18 Room Air 11/07/19 20:00 100.6 101 20 94/53 (67) 97 11/07/19 16:00 97.5 71 18 89/45 (60) 99 Intake and Output 11/07/19 11/08/19 19:00 07:00 Intake Total 600 ml 480 ml Output Total 1600 ml 900 ml Balance -1000 ml -420 ml Intake Oral 600 ml 480 ml Output Urine Total 1600 ml 900 ml # Voids 1 # Bowel Movements 1 Laboratory Tests Test 11/08/19 08:55 White Blood Count 10.1 K/UL (4.8-10.8) Red Blood Count 3.08 M/UL (4.70-6.10) L Hemoglobin 8.3 G/DL (14.2-18.0) L Hematocrit 26.1 % (42.0-52.0) L Mean Corpuscular Volume 85 FL (80-99) Mean Corpuscular Hemoglobin 27.0 PG (27.0-31.0) Mean Corpuscular Hemoglobin Concent 31.8 G/DL (32.0-36.0) L Red Cell Distribution Width 16.5 % (11.6-14.8) H Platelet Count 608 K/UL (150-450) H Mean Platelet Volume 4.5 FL (6.5-10.1) L Neutrophils (%) (Auto) 66.1 % (45.0-75.0) Lymphocytes (%) (Auto) 20.8 % (20.0-45.0) Monocytes (%) (Auto) 8.8 % (1.0-10.0) Eosinophils (%) (Auto) 2.6 % (0.0-3.0) Basophils (%) (Auto) 1.7 % (0.0-2.0) Sodium Level 135 MMOL/L (136-145) L Potassium Level 3.5 MMOL/L (3.5-5.1) Chloride Level 97 MMOL/L (98-107) L Carbon Dioxide Level 27 MMOL/L (21-32) Anion Gap 11 mmol/L (5-15) Blood Urea Nitrogen 21 mg/dL (7-18) H Creatinine 0.7 MG/DL (0.55-1.30) Estimat Glomerular Filtration Rate > 60 mL/min (>60) Glucose Level 169 MG/DL (74-106) H Calcium Level 9.0 MG/DL (8.5-10.1) Phosphorus Level 4.1 MG/DL (2.5-4.9) Magnesium Level 1.9 MG/DL (1.8-2.4) Random Vancomycin Level 9.3 ug/mL Microbiology Date/Time Source Procedure Growth Status 11/06/19 16:29 Indwelling Cath Urine Culture - Preliminary NO GROWTH AFTER 24 HOURS Resulted Objective HEAD AND NECK: No JVD. Right IJ central line. LUNGS: Coarse rhonchi. CARDIOVASCULAR: Regular S1 and S2 with no gallop. ABDOMEN: Soft.S/P Ileostomy EXTREMITIES: No pitting edema, however, has pressure ulcers. Carloz Estes MD Nov 08, 2019 14:58
[2019-11-08] MEDS: HYDROcodone/Acetamin 5/325 tab ORAL PRN ×2 (15:40→21:35)
[2019-11-08 16:00] VITALS: BP 129/71
--- NOTE | 2019-11-08 16:13 | Infectious Diseases Prog Note ---
Assessment/Plan Assessment/Plan ASSESSMENT AND PLAN: 1. sepsis, shock, proteus uti, esbl e.coli uti, possible aspiration pna/hcap vs cap, sacral wound - ? 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 fungemia, new pneumonia on cheat x-ray - change abx to vancomycin, diflucan and meropenem (discontinue zosyn) - f/u no sputum culture, uc/bc - negative - monitor labs and chest x-rays - line removed - d/w Dr. Shaikh 2. ICU care. 3. Sacral wound -wound mostly clean, management per surgery 4. Ostomy malfunction - per surgery 5. Hypertension. 6. Paraplegia. 7. Anemia. 8. History of decubitus ulcer, rule out infection. Infectious diseases is following. The patient on antibiotics. 9. Hypertension treatment per primary care team. 10. Continue treatment per primary consultants. 11. No known drug allergies. 12. Social history is negative. 13. Family history is noncontributory. 14. MAR was noted. 15. Case discussed with RN. Subjective Constitutional: Reports: fever, fatigue HEENT: Denies: congestion Respiratory: Denies: shortness of breath Cardiovascular: Denies: chest pain Gastrointestinal/Abdominal: Denies: nausea, vomiting, diarrhea Genitourinary: Reports: other - + donohue Neurologic: Denies: headache Psychiatric: Denies: depression Skin: Denies: rash Hematologic: Denies: bleeding Musculoskeletal: Denies: pain Allergies: Coded Allergies: No Known Allergies (Unverified , 08/15/19) Objective Last 24 Hour Vital Signs Date Time Temp Pulse Resp B/P (MAP) Pulse Ox O2 Delivery O2 Flow Rate FiO2 11/08/19 11:52 98.2 65 17 90/51 (64) 98 11/08/19 09:09 99.8 11/08/19 08:16 Room Air 11/08/19 08:00 101.7 86 20 107/63 (78) 96 11/08/19 04:00 99.2 87 18 88/51 (63) 97 11/08/19 00:00 99.0 80 17 90/51 (64) 97 11/07/19 21:42 100.9 11/07/19 20:18 Room Air 11/07/19 20:00 100.6 101 20 94/53 (67 97 Height (Feet): 5 Height (Inches): 7.00 Weight (Pounds): 103 General Appearance: no acute distress HEENT: normocephalic, atraumatic, anicteric Respiratory/Chest: crackles/rales, rhonchi - bilaterally, expiratory wheezing Cardiovascular: normal rate, regular rhythm, no gallop/murmur Abdomen: normal bowel sounds, soft, non tender, no organomegaly, non distended Genitourinary: other - + donohue Extremities: no cyanosis Skin: no rash Neurologic/Psychiatric: pacs administrator II-XII grossly normal, alert, responsive Lymphatic: no neck adenopathy Musculoskeletal: no effusion Chest x-ray - 10/25/19 - Procedure: XRAY Chest 1v Indication: Shortness of breath Technique: One view of the chest Comparison: 10/23/2019 Findings: There are bilateral basilar infiltrates, which appear new or increased since prior study. There is some atelectasis at the left lung base as well. Right jugular central venous catheter remains. The heart size is normal. Impression: New/increased bilateral basilar infiltrates, since prior study 2019 Chest x-ray - 10/27/19 - Procedure: XRAY Chest 1v Indication: Shortness of breath Technique: One view of the chest Comparison: 10/25/2019 Findings: There is atelectasis possibly some focal consolidation at the right lung base. Atelectatic changes previously demonstrated at the left lung base have largely cleared. Right jugular central venous catheter remains. The heart size is normal. Impression: Improving left basilar atelectasis. Otherwise little tire changer 2 days findings as noted Chest x-ray - 10/29/19 - FINDINGS: Lungs: Persistent subsegmental atelectasis in bilateral lower lungs, not significant changed compared to the prior exam. No new consolidation is seen. Pleural space: Unremarkable. The costophrenic angles are sharp. No visible pneumothorax. Heart: Unremarkable. No cardiomegaly. Mediastinum: Unremarkable. Bones/joints: Unremarkable. Vasculature: Mild atherosclerotic calcifications are noted within the aortic arch. Tubes, lines and devices: Stable positioning of a right IJ central venous catheter with the tip in the SVC. Telemetry leads overlie the thorax. IMPRESSION: Persistent subsegmental atelectasis in bilateral lower lungs, not significantly changed compared to the prior exam. Chest x-rasy - 11/03/19 - Procedure: XRAY Chest 1v Indication: Cough Technique: One view of the chest Comparison: 10/29/2019 Findings: There are increased atelectatic changes at the lung bases. Interim removal of previously demonstrated central venous catheter. The pleural spaces are clear. The heart size is normal. Impression: Increasing bilateral basilar atelectasis Interim central venous catheter removal. Chest x-ray - 11/07/19 - Procedure: XRAY Chest 1v Indication: Shortness of breath Technique: One view of the chest Comparison: 11/03/2019 Findings: Bilateral basilar atelectatic changes appear similar to the previous exam. There may be some patchy left perihilar and bilateral peripheral consolidation. The heart size is normal. Impression: New or increased faint patchy peripheral and left perihilar consolidative opacities, possibly reflecting multifocal pneumonia, since prior study 03/04/2019 Persistent bilateral basilar atelectatic changes Microbiology Date/Time Source Procedure Growth Status 11/04/19 12:20 Blood Blood Culture - Preliminary NO GROWTH AFTER 48 HOURS Resulted 11/02/19 13:30 Nasopharynx SARS-CoV-2 RdRp Gene Assay - Final Complete 11/06/19 16:29 Indwelling Cath Urine Culture - Preliminary NO GROWTH AFTER 24 HOURS Resulted 11/03/19 08:00 Catheter Site Catheter Tip Culture - Final Staphylococcus Sp Coag Neg Complete Microbiology Date/Time Source Procedure Growth Status 11/06/19 16:29 Indwelling Cath Urine Culture - Preliminary NO GROWTH AFTER 24 HOURS Resulted Laboratory Tests Test 11/08/19 08:55 White Blood Count 10.1 K/UL (4.8-10.8) Red Blood Count 3.08 M/UL (4.70-6.10) L Hemoglobin 8.3 G/DL (14.2-18.0) L Hematocrit 26.1 % (42.0-52.0) L Mean Corpuscular Volume 85 FL (80-99) Mean Corpuscular Hemoglobin 27.0 PG (27.0-31.0) Mean Corpuscular Hemoglobin Concent 31.8 G/DL (32.0-36.0) L Red Cell Distribution Width 16.5 % (11.6-14.8) H Platelet Count 608 K/UL (150-450) H Mean Platelet Volume 4.5 FL (6.5-10.1) L Neutrophils (%) (Auto) 66.1 % (45.0-75.0) Lymphocytes (%) (Auto) 20.8 % (20.0-45.0) Monocytes (%) (Auto) 8.8 % (1.0-10.0) Eosinophils (%) (Auto) 2.6 % (0.0-3.0) Basophils (%) (Auto) 1.7 % (0.0-2.0) Sodium Level 135 MMOL/L (136-145) L Potassium Level 3.5 MMOL/L (3.5-5.1) Chloride Level 97 MMOL/L (98-107) L Carbon Dioxide Level 27 MMOL/L (21-32) Anion Gap 11 mmol/L (5-15) Blood Urea Nitrogen 21 mg/dL (7-18) H Creatinine 0.7 MG/DL (0.55-1.30) Estimat Glomerular Filtration Rate > 60 mL/min (>60) Glucose Level 169 MG/DL (74-106) H Calcium Level 9.0 MG/DL (8.5-10.1) Phosphorus Level 4.1 MG/DL (2.5-4.9) Magnesium Level 1.9 MG/DL (1.8-2.4) Random Vancomycin Level 9.3 ug/mL Current Medications Medications (Trade) Dose Ordered Sig/Mya Route PRN Reason Start Time Stop Time Status Last Admin Dose Admin Acetaminophen (Tylenol) 650 mg Q4H PRN ORAL Mild Pain (Pain Scale 1-3) 11/05/19 14:00 11/30/19 13:59 11/08/19 08:39 Acetaminophen (Tylenol) 650 mg Q4H PRN ORAL Temp >100.5 11/05/19 16:00 12/05/19 15:59 11/07/19 21:12 Acetaminophen/ Hydrocodone Bitart ([place] 5/325) 2 tab Q4H PRN ORAL Severe Pain (Pain Scale 7-10) 11/08/19 15:45 11/15/19 15:44 11/08/19 15:40 Ascorbic Acid (Vitamin C) 500 mg DAILY ORAL 11/06/19 09:00 11/23/19 08:59 11/08/19 08:38 Baclofen (Lioresal) 10 mg THREE TIMES A DAY ORAL 11/05/19 18:00 11/22/19 17:59 11/08/19 13:31 Dextrose (Dextrose 50%) 25 ml Q30M PRN IV Hypoglycemia 11/05/19 13:30 01/21/20 17:29 Dextrose (Dextrose 50%) 50 ml Q30M PRN IV Hypoglycemia 11/05/19 13:30 01/21/20 17:29 Diphenhydramine HCl (Benadryl) 25 mg Q6H PRN ORAL Itching/Pruritis 11/05/19 14:00 11/22/19 07:54 Docusate Sodium (Colace) 100 mg EVERY 12 HOURS ORAL 11/05/19 21:00 11/22/19 20:59 11/07/19 08:15 Famotidine (Pepcid) 20 mg DAILY ORAL 11/06/19 09:00 01/28/20 09:29 11/08/19 08:38 Ferrous Sulfate (Feosol) 325 mg DAILY ORAL 11/06/19 09:00 01/22/20 08:59 11/08/19 08:38 Fluconazole/ Sodium Chloride 200 ml @ 200 mls/hr Q24H IV 11/05/19 17:00 11/09/19 16:59 11/07/19 17:21 Gabapentin (Neurontin) 400 mg Q8HR ORAL 11/05/19 14:00 12/03/19 21:59 11/08/19 13:31 Heparin Sodium (Porcine) (Heparin 5000 units/ml) 5,000 units EVERY 12 HOURS SUBQ 11/05/19 21:00 12/08/19 08:59 11/08/19 08:49 Midodrine (Pro-Amatine) 10 mg EVERY 8 HOURS ORAL 11/05/19 14:00 01/21/20 17:59 11/08/19 13:31 Ondansetron HCl (Zofran) 4 mg Q6H PRN IVP Nausea & Vomiting 11/05/19 14:00 11/22/19 07:57 Piperacillin Sod/ Tazobactam Sod 3.375 gm/Dextrose 100 ml @ 25 mls/hr Q8HR@0200,1000,1800 IVPB 11/06/19 18:00 11/13/19 17:59 11/08/19 09:42 Sodium Hypochlorite (Dakin's Quarter Strength) 1 applic DAILY TOPIC 11/06/19 09:00 11/24/19 08:59 11/08/19 08:49 Vancomycin HCl (Vanco pharmacy to dose) 1 ea DAILY PRN MISC Per rx protocol 11/06/19 09:00 11/28/19 16:14 Vancomycin HCl 750 mg/Sodium Chloride 275 ml @ 183.333 mls/hr Q24H IVPB 11/08/19 11:00 11/13/19 10:59 11/08/19 11:46 Zinc Sulfate (Zinc Sulfate) 220 mg DAILY ORAL 11/06/19 09:00 01/22/20 08:59 11/08/19 08:38 Sharif Painting MD Nov 08, 2019 16:13
[2019-11-08 20:00] VITALS: BP 92/56
[2019-11-09] VITALS: BP 90/51
[2019-11-09 04:00] VITALS: BP_SYST 113; BP_SYST 95; BP_DIAS 56; BP_DIAS 74
[2019-11-09] MEDS: Midodrine 10mg tab ORAL SCH ×3 (05:17→21:02)
[2019-11-09] MEDS: HYDROcodone/Acetamin 5/325 tab ORAL PRN ×3 (05:17→21:02)
[2019-11-09 08:00] VITALS: BP 96/57
[2019-11-09] MEDS: Dakin's 0.125% Soln (Quarter Strength) 16oz TOPIC SCH (09:00)
[2019-11-09] MEDS: Zinc Sulfate 220mg ORAL SCH (09:35)
[2019-11-09] MEDS: Docusate 100mg cap ORAL SCH ×2 (09:35→21:00)
[2019-11-09] MEDS: Ascorbic Acid 500mg tab ORAL SCH (09:35)
[2019-11-09] MEDS: Heparin 5000 units/ml inj SUBQ SCH ×2 (09:38→21:05)
--- NOTE | 2019-11-09 09:56 | Nephrology Progress Note ---
Assessment/Plan Plan #Polyuria - r/o DI vs dopamine effect??- however sodium remains in normal range #Shock #UTI # infected sacral pressure ulcer #Acute metabolic encephalopathy #Paraplegia #Sacral pressure ulcer #Hypokalemia #Anemia UOP increasing again to 3300 yesterday hypotensive this morning started on NS at 75 cc will add desmopressing 2 Iv daily and salt tabs 1g TID - continue midodrine 10 TID - antibiotics per ID - monitor lytes - monitor for vanoc toxicity - avoid nephrotoxins - daily weights - strict I&Os time spent 70 min- greater than 50% on care coordination and counseling Subjective ROS Limited/Unobtainable: Yes Subjective UOP increasing again to 3300 yesterday hypotensive this morning started on NS at 75 cc will add desmopressing 2 Iv daily and salt tabs 1g TID Objective Objective Last 24 Hour Vital Signs Date Time Temp Pulse Resp B/P (MAP) Pulse Ox O2 Delivery O2 Flow Rate FiO2 11/09/19 08:00 98.8 74 18 96/57 (70) 97 11/09/19 04:00 97.7 62 20 95/56 (69) 98 11/09/19 00:00 97.3 67 18 90/51 (64) 98 11/08/19 21:00 Room Air 11/08/19 20:00 100.0 91 20 92/56 (68) 98 11/08/19 16:00 96.6 87 19 129/71 (90) 100 11/08/19 11:52 98.2 65 17 90/51 (64) 98 Intake and Output 11/08/19 11/09/19 19:00 07:00 Intake Total 800 ml 200 ml Output Total 1500 ml 1700 ml Balance -700 ml -1500 ml Intake Oral 800 ml IV Total 200 ml Output Urine Total 1500 ml 1700 ml # Bowel Movements 1 Height (Feet): 5 Height (Inches): 7.00 Weight (Pounds): 48 Sienna Georges M.D. Nov 09, 2019 09:56
--- NOTE | 2019-11-09 10:27 | Diagnostic Imaging Report ---
Indication: Cough Technique: One view of the chest Comparison: 11/07/2019 Findings: There is improved aeration of the lung bases, although some atelectasis persists bilaterally. No new infiltrates. The pleural spaces are clear. The heart size is normal. Impression: Improved aeration with decreased basilar atelectasis
--- NOTE | 2019-11-09 10:39 | Pulmonology Progress Note ---
Subjective ROS Limited/Unobtainable: Yes Interval Events: Looking better Constitutional: Reports: fever, fatigue HEENT: Repors: no symptoms Respiratory: Reports: no symptoms Cardiovascular: Reports: no symptoms Gastrointestinal/Abdominal: Denies: nausea, vomiting, diarrhea Genitourinary: Reports: no symptoms Psychiatric: Denies: depression Skin: Denies: rash Musculoskeletal: Denies: pain Allergies: Coded Allergies: No Known Allergies (Unverified , 08/15/19) All Systems: reviewed and negative except above Objective Last 24 Hour Vital Signs Date Time Temp Pulse Resp B/P (MAP) Pulse Ox O2 Delivery O2 Flow Rate FiO2 11/09/19 08:00 98.8 74 18 96/57 (70) 97 11/09/19 04:00 97.7 62 20 95/56 (69) 98 11/09/19 00:00 97.3 67 18 90/51 (64) 98 11/08/19 21:00 Room Air 11/08/19 20:00 100.0 91 20 92/56 (68) 98 11/08/19 16:00 96.6 87 19 129/71 (90) 100 11/08/19 11:52 98.2 65 17 90/51 (64) 98 Intake and Output 11/08/19 11/09/19 19:00 07:00 Intake Total 800 ml 200 ml Output Total 1500 ml 1700 ml Balance -700 ml -1500 ml Intake Oral 800 ml IV Total 200 ml Output Urine Total 1500 ml 1700 ml # Bowel Movements 1 General Appearance: no acute distress HEENT: normocephalic Respiratory: chest wall non-tender, lungs clear Cardiovascular: normal peripheral pulses, regular rhythm Abdomen: normal bowel sounds Extremities: no cyanosis Microbiology Date/Time Source Procedure Growth Status 11/06/19 16:29 Indwelling Cath Urine Culture - Preliminary YEAST Resulted Current Medications Medications (Trade) Dose Ordered Sig/Mya Route PRN Reason Start Time Stop Time Status Last Admin Dose Admin Acetaminophen (Tylenol) 650 mg Q4H PRN ORAL Mild Pain (Pain Scale 1-3) 11/05/19 14:00 11/30/19 13:59 11/08/19 08:39 Acetaminophen (Tylenol) 650 mg Q4H PRN ORAL Temp >100.5 11/05/19 16:00 12/05/19 15:59 11/07/19 21:12 Acetaminophen/ Hydrocodone Bitart ([place] 5/325) 2 tab Q4H PRN ORAL Severe Pain (Pain Scale 7-10) 11/08/19 15:45 11/15/19 15:44 11/09/19 05:17 Ascorbic Acid (Vitamin C) 500 mg DAILY ORAL 11/06/19 09:00 11/23/19 08:59 11/09/19 09:35 Baclofen (Lioresal) 10 mg THREE TIMES A DAY ORAL 11/05/19 18:00 11/22/19 17:59 11/09/19 09:35 Desmopressin Acetate (Ddavp) 2 mcg DAILY IV 11/10/19 09:00 02/08/20 08:59 Dextrose (Dextrose 50%) 25 ml Q30M PRN IV Hypoglycemia 11/05/19 13:30 01/21/20 17:29 Dextrose (Dextrose 50%) 50 ml Q30M PRN IV Hypoglycemia 11/05/19 13:30 01/21/20 17:29 Diphenhydramine HCl (Benadryl) 25 mg Q6H PRN ORAL Itching/Pruritis 11/05/19 14:00 11/22/19 07:54 Docusate Sodium (Colace) 100 mg EVERY 12 HOURS ORAL 11/05/19 21:00 11/22/19 20:59 11/09/19 09:35 Famotidine (Pepcid) 20 mg DAILY ORAL 11/06/19 09:00 01/28/20 09:29 11/09/19 09:35 Ferrous Sulfate (Feosol) 325 mg DAILY ORAL 11/06/19 09:00 01/22/20 08:59 11/09/19 09:35 Fluconazole/ Sodium Chloride 200 ml @ 200 mls/hr Q24H IV 11/08/19 17:00 11/12/19 16:59 11/08/19 17:19 Gabapentin (Neurontin) 400 mg Q8HR ORAL 11/05/19 14:00 12/03/19 21:59 11/09/19 05:17 Heparin Sodium (Porcine) (Heparin 5000 units/ml) 5,000 units EVERY 12 HOURS SUBQ 11/05/19 21:00 12/08/19 08:59 11/09/19 09:38 Meropenem 1 gm/ Sodium Chloride 100 ml @ 200 mls/hr Q8HR IVPB 11/08/19 22:00 11/13/19 21:59 11/09/19 05:18 Midodrine (Pro-Amatine) 10 mg EVERY 8 HOURS ORAL 11/05/19 14:00 01/21/20 17:59 11/09/19 05:17 Ondansetron HCl (Zofran) 4 mg Q6H PRN IVP Nausea & Vomiting 11/05/19 14:00 11/22/19 07:57 Sodium Hypochlorite (Dakin's Quarter Strength) 1 applic DAILY TOPIC 11/06/19 09:00 11/24/19 08:59 11/09/19 09:00 Sodium Chloride 1,000 ml @ 75 mls/hr [id number] IV 11/09/19 10:00 12/09/19 09:59 11/09/19 09:45 Sodium Chloride (NaCl) 1 gm THREE TIMES A DAY ORAL 11/09/19 13:00 12/09/19 12:59 Vancomycin HCl (Vanco pharmacy to dose) 1 ea DAILY PRN MISC Per rx protocol 11/06/19 09:00 11/28/19 16:14 Vancomycin HCl 750 mg/Sodium Chloride 275 ml @ 183.333 mls/hr Q24H IVPB 11/08/19 11:00 11/13/19 10:59 11/08/19 11:46 Zinc Sulfate (Zinc Sulfate) 220 mg DAILY ORAL 11/06/19 09:00 01/22/20 08:59 11/09/19 09:35 Assessment/Plan Assessment/Plan IMPRESSION: 1. Septic shock. resolved 2. Complicated UTI with history of previous ESBL infection. 3. Paraplegia. 4. Sacral decubitus. 5. [facility] resident. DISCUSSION: DVT and GI prophylaxes. ID consult and follow-up noted. I will follow carefully. continue Oxygen, doing well on room air at this time. Haily Monzon Omar Syed MD Nov 09, 2019 10:39
[2019-11-09 12:00] VITALS: BP 94/58
[2019-11-09] MEDS: Vancomycin 750mg/NS 275ml IVPB SCH ×2 (12:45)
--- NOTE | 2019-11-09 13:15 | Hematology/Onc Progress Note ---
Assessment/Plan Assessment/Plan Assessment/recs # Anemia rule out gi bleed, as well as iron deficiency --> hgb 8.2-->7.2-->7.1->6.9-->8.6-->8.3-->9.3-->8.3 --> anemia panel ordered--> cw acd --> occult blood pending --> gi eval prn --> transfuse as needed --> transfuse 2 units 10/27 --> po iron to continue # Coagulopathy with elev ptt/inr --> vitk and ffp as needed --> no bleeding noted at this time # Thrombocytosis likely reactive process --> plt 398-->608 --> abx as needed # Hypotension likely due to septic shock. Was diuresing heavily at 300 mL an hour. --> Continue on midodrine and dopamine. --> IV antibiotic with vancomycin and meropenem and amikacin-->christel/vanc --> in icu, is on pressors --> as per cards # Bradycardia. --> per cards # Paraplegia. # Urinary tract infection --> followed by Dr. Painting on broad-spectrum IV antibiotic. # Decubitus ulcers with sacral decubitus. # Dvt heparin sq Appreciate consultation and chandrakant RN Subjective HEENT: Denies: no symptoms, eye pain, blurred vision, tearing, double vision, ear pain, ear discharge, nose pain, nose congestion, throat pain, throat swelling, mouth pain, mouth swelling, other Cardiovascular: Denies: no symptoms, chest pain, edema, irregular heart rate, lightheadedness, palpitations, syncope, other Genitourinary: Denies: no symptoms, burning, discharge, frequency, flank pain, hematuria, incontinence, pain, urgency, other Neurologic/Psychiatric: Denies: no symptoms, anxiety, depressed, emotional problems, headache, numbness, paresthesia, pre-existing deficit, seizure, tingling, tremors, weakness, other Endocrine: Denies: no symptoms, excessive sweating, flushing, intolerance to cold, intolerance to heat, increased hunger, increased thirst, increased urine, unexplained weight gain, unexplained weight loss, other Hematologic/Lymphatic: Denies: no symptoms, anemia, easy bleeding, easy bruising, adenopathy, other Allergies: Coded Allergies: No Known Allergies (Unverified , 08/15/19) Subjective 10/27 labs again refused this am, yesterday was low, chandrakant rn in icu 10/28 remains in icu, for 2units prbc this am, chandrakant rn, no other events 10/29 s/p prbc, tolerated it well, no bleeding, on 1mcg levo, in icu 10/30 on abx, on levo and overnight no other events, 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\ 10/31 wounds improved, labs noted, no bleeding, hgb lower, refusing care/wound care 11/01 labs noted, no bleeding, no hematochezia, no hemoptysis, cbc ordered 11/02 meds reviewed, labs noted, no bleeding, chandrakant rn, no major changes, hgb 8.3 11/04 labs have been noted, no bleeding, meds reviewed, no hemolysis 11/05 functional colostomy llq, no bleeding, cbc is pending for am 11/06 labs have been refused, hgb 8.3, no bleeding, wbc is higher in am 11/07 labs have initially been refused, no bleeding in am, wbc 13, on abx 11/08 labs reviewed, no bleeding, chandrakant rn, cbc is pending for am Objective Objective Current Medications Medications (Trade) Dose Ordered Sig/Mya Route PRN Reason Start Time Stop Time Status Last Admin Dose Admin Acetaminophen (Tylenol) 650 mg Q4H PRN ORAL Mild Pain (Pain Scale 1-3) 11/05/19 14:00 11/30/19 13:59 11/08/19 08:39 Acetaminophen (Tylenol) 650 mg Q4H PRN ORAL Temp >100.5 11/05/19 16:00 12/05/19 15:59 11/07/19 21:12 Acetaminophen/ Hydrocodone Bitart ([place] 5/325) 2 tab Q4H PRN ORAL Severe Pain (Pain Scale 7-10) 11/08/19 15:45 11/15/19 15:44 11/09/19 05:17 Ascorbic Acid (Vitamin C) 500 mg DAILY ORAL 11/06/19 09:00 11/23/19 08:59 11/09/19 09:35 Baclofen (Lioresal) 10 mg THREE TIMES A DAY ORAL 11/05/19 18:00 11/22/19 17:59 11/09/19 09:35 Desmopressin Acetate (Ddavp) 1 spray BID NASAL 11/09/19 18:00 02/07/20 17:59 Dextrose (Dextrose 50%) 25 ml Q30M PRN IV Hypoglycemia 11/05/19 13:30 01/21/20 17:29 Dextrose (Dextrose 50%) 50 ml Q30M PRN IV Hypoglycemia 11/05/19 13:30 01/21/20 17:29 Diphenhydramine HCl (Benadryl) 25 mg Q6H PRN ORAL Itching/Pruritis 11/05/19 14:00 11/22/19 07:54 Docusate Sodium (Colace) 100 mg EVERY 12 HOURS ORAL 11/05/19 21:00 11/22/19 20:59 11/09/19 09:35 Famotidine (Pepcid) 20 mg DAILY ORAL 11/06/19 09:00 01/28/20 09:29 11/09/19 09:35 Ferrous Sulfate (Feosol) 325 mg DAILY ORAL 11/06/19 09:00 01/22/20 08:59 11/09/19 09:35 Fluconazole/ Sodium Chloride 200 ml @ 200 mls/hr Q24H IV 11/08/19 17:00 11/12/19 16:59 11/08/19 17:19 Gabapentin (Neurontin) 400 mg Q8HR ORAL 11/05/19 14:00 12/03/19 21:59 11/09/19 05:17 Heparin Sodium (Porcine) (Heparin 5000 units/ml) 5,000 units EVERY 12 HOURS SUBQ 11/05/19 21:00 12/08/19 08:59 11/09/19 09:38 Meropenem 1 gm/ Sodium Chloride 100 ml @ 200 mls/hr Q8HR IVPB 11/08/19 22:00 11/13/19 21:59 11/09/19 05:18 Midodrine (Pro-Amatine) 10 mg EVERY 8 HOURS ORAL 11/05/19 14:00 01/21/20 17:59 11/09/19 05:17 Ondansetron HCl (Zofran) 4 mg Q6H PRN IVP Nausea & Vomiting 11/05/19 14:00 11/22/19 07:57 Sodium Hypochlorite (Dakin's Quarter Strength) 1 applic DAILY TOPIC 11/06/19 09:00 11/24/19 08:59 11/09/19 09:00 Sodium Chloride 1,000 ml @ 75 mls/hr [id number] IV 11/09/19 10:00 12/09/19 09:59 11/09/19 09:45 Sodium Chloride (NaCl) 1 gm THREE TIMES A DAY ORAL 11/09/19 13:00 12/09/19 12:59 Vancomycin HCl (Vanco pharmacy to dose) 1 ea DAILY PRN MISC Per rx protocol 11/06/19 09:00 11/28/19 16:14 Vancomycin HCl 750 mg/Sodium Chloride 275 ml @ 183.333 mls/hr Q24H IVPB 11/08/19 11:00 11/13/19 10:59 11/09/19 12:45 Zinc Sulfate (Zinc Sulfate) 220 mg DAILY ORAL 11/06/19 09:00 01/22/20 08:59 11/09/19 09:35 Last 24 Hour Vital Signs Date Time Temp Pulse Resp B/P (MAP) Pulse Ox O2 Delivery O2 Flow Rate FiO2 11/09/19 09:00 Room Air 11/09/19 08:00 98.8 74 18 96/57 (70) 97 11/09/19 04:00 97.7 62 20 95/56 (69) 98 11/09/19 00:00 97.3 67 18 90/51 (64) 98 11/08/19 21:00 Room Air 11/08/19 20:00 100.0 91 20 92/56 (68) 98 11/08/19 16:00 96.6 87 19 129/71 (90) 100 11/08/19 11:52 98.2 65 17 90/51 (64) 98 11/08/19 09:09 99.8 11/08/19 08:16 Room Air 11/08/19 08:00 101.7 86 20 107/63 (78) 96 11/08/19 04:00 99.2 87 18 88/51 (63) 97 11/08/19 00:00 99.0 80 17 90/51 (64) 97 11/07/19 21:42 100.9 11/07/19 20:18 Room Air 11/07/19 20:00 100.6 101 20 94/53 (67) 97 11/07/19 16:00 97.5 71 18 89/45 (60) 99 Intake and Output 11/08/19 11/09/19 19:00 07:00 Intake Total 800 ml 200 ml Output Total 1500 ml 1700 ml Balance -700 ml -1500 ml Intake Oral 800 ml IV Total 200 ml Output Urine Total 1500 ml 1700 ml # Bowel Movements 1 Labs Test 11/06/19 13:45 11/07/19 06:30 11/07/19 09:30 11/07/19 11:30 Sodium Level 132 MMOL/L (136-145) 130 MMOL/L (136-145) Potassium Level 3.6 MMOL/L (3.5-5.1) 4.6 MMOL/L (3.5-5.1) Chloride Level 95 MMOL/L (98-107) 95 MMOL/L (98-107) Carbon Dioxide Level 26 MMOL/L (21-32) 25 MMOL/L (21-32) Anion Gap 11 mmol/L (5-15) 10 mmol/L (5-15) Blood Urea Nitrogen 24 mg/dL (7-18) 20 mg/dL (7-18) Creatinine 0.6 MG/DL (0.55-1.30) 0.7 MG/DL (0.55-1.30) Estimat Glomerular Filtration Rate > 60 mL/min (>60) > 60 mL/min (>60) Glucose Level 142 MG/DL (74-106) 129 MG/DL (74-106) Calcium Level 9.8 MG/DL (8.5-10.1) 8.8 MG/DL (8.5-10.1) White Blood Count 12.6 K/UL (4.8-10.8) Red Blood Count 3.05 M/UL (4.70-6.10) Hemoglobin 8.3 G/DL (14.2-18.0) Hematocrit 25.5 % (42.0-52.0) Mean Corpuscular Volume 84 FL (80-99) Mean Corpuscular Hemoglobin 27.3 PG (27.0-31.0) Mean Corpuscular Hemoglobin Concent 32.6 G/DL (32.0-36.0) Red Cell Distribution Width 16.9 % (11.6-14.8) Platelet Count 553 K/UL (150-450) Mean Platelet Volume 4.5 FL (6.5-10.1) Neutrophils (%) (Auto) 70.0 % (45.0-75.0) Lymphocytes (%) (Auto) 17.9 % (20.0-45.0) Monocytes (%) (Auto) 7.3 % (1.0-10.0) Eosinophils (%) (Auto) 2.1 % (0.0-3.0) Basophils (%) (Auto) 2.7 % (0.0-2.0) Total Bilirubin 0.5 MG/DL (0.2-1.0) Aspartate Amino Transf (AST/SGOT) 19 U/L (15-37) Alanine Aminotransferase (ALT/SGPT) 17 U/L (12-78) Alkaline Phosphatase 274 U/L (46-116) Total Protein 6.8 G/DL (6.4-8.2) Albumin 1.9 G/DL (3.4-5.0) Globulin 4.9 g/dL Albumin/Globulin Ratio 0.4 (1.0-2.7) Vancomycin Level Trough > 50.0 ug/mL (5.0-12.0) Urine Color Pale yellow Urine Appearance Slightly cloudy Urine pH 7 (4.5-8.0) Urine Specific [place] 1.005 (1.005-1.035) Urine Protein 1+ (NEGATIVE) Urine Glucose (UA) Negative (NEGATIVE) Urine Ketones Negative (NEGATIVE) Urine Blood 1+ (NEGATIVE) Urine Nitrite Negative (NEGATIVE) Urine Bilirubin Negative (NEGATIVE) Urine Urobilinogen Normal MG/DL (0.0-1.0) Urine Leukocyte Esterase 2+ (NEGATIVE) Urine RBC 0 /HPF (0 - 0) Urine WBC 2-4 /HPF (0 - 0) Urine Squamous Epithelial Cells None /LPF (NONE/OCC) Urine Bacteria Few /HPF (NONE) Urine Mucus /LPF (NONE/OCC) Test 11/08/19 08:55 White Blood Count 10.1 K/UL (4.8-10.8) Red Blood Count 3.08 M/UL (4.70-6.10) Hemoglobin 8.3 G/DL (14.2-18.0) Hematocrit 26.1 % (42.0-52.0) Mean Corpuscular Volume 85 FL (80-99) Mean Corpuscular Hemoglobin 27.0 PG (27.0-31.0) Mean Corpuscular Hemoglobin Concent 31.8 G/DL (32.0-36.0) Red Cell Distribution Width 16.5 % (11.6-14.8) Platelet Count 608 K/UL (150-450) Mean Platelet Volume 4.5 FL (6.5-10.1) Neutrophils (%) (Auto) 66.1 % (45.0-75.0) Lymphocytes (%) (Auto) 20.8 % (20.0-45.0) Monocytes (%) (Auto) 8.8 % (1.0-10.0) Eosinophils (%) (Auto) 2.6 % (0.0-3.0) Basophils (%) (Auto) 1.7 % (0.0-2.0) Sodium Level 135 MMOL/L (136-145) Potassium Level 3.5 MMOL/L (3.5-5.1) Chloride Level 97 MMOL/L (98-107) Carbon Dioxide Level 27 MMOL/L (21-32) Anion Gap 11 mmol/L (5-15) Blood Urea Nitrogen 21 mg/dL (7-18) Creatinine 0.7 MG/DL (0.55-1.30) Estimat Glomerular Filtration Rate > 60 mL/min (>60) Glucose Level 169 MG/DL (74-106) Calcium Level 9.0 MG/DL (8.5-10.1) Phosphorus Level 4.1 MG/DL (2.5-4.9) Magnesium Level 1.9 MG/DL (1.8-2.4) Random Vancomycin Level 9.3 ug/mL Height (Feet): 5 Height (Inches): 7.00 Weight (Pounds): 48 Objective Physical Exam General Appearance: lethargic Lines, tubes and drains: peripheral, central line HEENT: normocephalic Neck: non-tender, normal alignment Respiratory/Chest: lungs clear Cardiovascular/Chest: normal peripheral pulses, normal rate, regular rhythm Abdomen: normal bowel sounds, non tender ++ llq colostomy Martínez Capps MD Nov 09, 2019 13:15
--- NOTE | 2019-11-09 13:27 | Surgery Progress Note ---
Surgery Progress Note Subjective Symptoms: improved, tolerating diet, voiding well, passing flatus, BM Objective Last 24 Hour Vital Signs Date Time Temp Pulse Resp B/P (MAP) Pulse Ox O2 Delivery O2 Flow Rate FiO2 11/09/19 09:00 Room Air 11/09/19 08:00 98.8 74 18 96/57 (70) 97 11/09/19 04:00 97.7 62 20 95/56 (69) 98 11/09/19 00:00 97.3 67 18 90/51 (64) 98 11/08/19 21:00 Room Air 11/08/19 20:00 100.0 91 20 92/56 (68) 98 11/08/19 16:00 96.6 87 19 129/71 (90) 100 I&O Intake and Output 11/08/19 11/09/19 19:00 07:00 Intake Total 800 ml 200 ml Output Total 1500 ml 1700 ml Balance -700 ml -1500 ml Intake Oral 800 ml IV Total 200 ml Output Urine Total 1500 ml 1700 ml # Bowel Movements 1 Dressing: other Wound: other Cardiovascular: RSR Respiratory: decreased breath sounds Abdomen: soft, non-tender, present bowel sounds Extremities: no edema, no tenderness, no cyanosis Plan Problems: (1) Abdominal distension Assessment & Plan: abd distention soft non tender ostomy viable and reduced KUB ordered pending results improved comfortable no complaints okay for diet s tolerated d/c planning much improved There is an inferior vena cava filter in place. Bowel gas pattern is unremarkable. Considerable stool is seen in the transverse and distal colon. There is extensive pelvic deformity, with loss of the left femoral head, chronic dislocation of the left femur, and extensive pelvic deformity, particularly on the left. Adi project over the upper pelvis Impression: Possible constipation. 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 [place] Shaped, Full Thickness Sacral Pressure Injury which extends into L ischium. (L)15.4cm x (W)18cm x (D)2.4cm, Undermining clockwise 10-2 by 7.7cm @ 11o'clock. Base of wound is moist,pink with scattered slough at base of wound. Bone is palpable at the Base. No odor or exudate noted. Scattered partial thickness wounds and Serous filled blisters noted to R trochanteric /R Hip areas. Historical scar noted to L groin, L Hip L Buttocks. Bony protrusion noted at L Hip. Full thickness Pressure Injury R Ischium(L)5.4cm x(W)6.9cm x (D)1.8cm, Undermining clockwise 1-4 by 2.7cm @2o'clock, Tunneling@7o'clock 2.9cm. Base of wound is moist pink with scattered slough. Scattered slough noted along borders. NO odor or exudate noted. Stable dry eschar noted to medial R knee 0.7cm x (W)0.4cm. Periwound is erythematous and indurated. No elevation in skin temp noted. L heel has shaved appearance secondary to Hx of Pressure Injuries. Base of heel is pale pink. Bone is palpable. Small area of slough noted within compromised area(L)0.6cm x (W)0.8cm. L Heel Also has shaved appearance with hypertrophic scarring. Base of compromised area is pale pink, Bone is palpable, with scattered loose, dry and scaly skin. Tx.Plan: Cleanse Sacral Wound and R Ischial wounds with Dakin's 0.125% gian. Loosely pack wounds with Hydrogel impregnated Kerlix. Apply Moisture Barrier Paste periwound. Cover with ABD Pads secure with Tegaderm drsg.Daily and prn. Apply Triad Paste to R Hip/R trochanteric areas.Cover with Optifoam drsg. Change every 7 days and prn. Apply Betadine to Medial R Knee. Cover with Optifoam drsg. Change every 7 days and prn. Apply Betadine to R and L Heels. Cover each Heel with Optifoam drsgs. Change every 7 days and prn. Cover Bony Prominences as needed with Optifoam drsgs. Reposition at least every [address] tolerated[address] Pillow between knees. Off-load heels with pillow. APM/SUMI Mattress overlay (15) SEAN (acute kidney injury) (16) Ileostomy prolapse Assessment & Plan: currently reduced but abd distended pending films films reviewed improved okay for diet d/c planning Cornelius Salgado Nov 09, 2019 13:27
--- NOTE | 2019-11-09 14:09 | General Progress Note ---
Assessment/Plan Status: stable Assessment/Plan: 59 year old man who presents from T with weakness, encephalopathy, concern for septic shock, possible from UTI vs infected sacral pressure ulcer #Septic shock- improving #Proteus UTI #Acute metabolic encephalopathy -improving #Paraplegia #Sacral pressure ulcer, present on admit #Persistent fevers -DC planning- afebrile overnight, CTM -Off vasopressors -off amikacin, -ZOsyn 11/06/19 - 11/07. -abx changed to vancomycin, diflucan and meropenem, 11/07 -Per surgery, sacral pressure ulcer does not appear to be infected -Local wound care and offloading #Sinus Bradycardia - resolved -continue telemetry -EP following #Hyponatremia -improving on salt tabs #Polyuria #Hypokalemia -improving -Replete when necessary -Desmopressin 2IV daily added per renal -Salt tabs 1gTID -monitor UOP - increasing #Anemia, acute on chronic -2 units RBC 10/28 -Hematology following Full Code I spent 35 minutes on this patient today , and 20 mins was dedicated to counseling and care coordination. Discussed with all consultants, Charge nurse and RNs. Subjective Date patient seen: Nov 09, 2019 Allergies: Coded Allergies: No Known Allergies (Unverified , 08/15/19) Subjective Febrile yesterday, abx changed to vancomycin, diflucan and meropenem, zosyn discontinued. NA improving on salt tabs. Pt sitting up in bed, has no complaints. saturating well on RA Objective Last 24 Hour Vital Signs Date Time Temp Pulse Resp B/P (MAP) Pulse Ox O2 Delivery O2 Flow Rate FiO2 11/09/19 09:00 Room Air 11/09/19 08:00 98.8 74 18 96/57 (70) 97 11/09/19 04:00 97.7 62 20 95/56 (69) 98 11/09/19 00:00 97.3 67 18 90/51 (64) 98 11/08/19 21:00 Room Air 11/08/19 20:00 100.0 91 20 92/56 (68) 98 11/08/19 16:00 96.6 87 19 129/71 (90) 100 Intake and Output 11/08/19 11/09/19 19:00 07:00 Intake Total 800 ml 200 ml Output Total 1500 ml 1700 ml Balance -700 ml -1500 ml Intake Oral 800 ml IV Total 200 ml Output Urine Total 1500 ml 1700 ml # Bowel Movements 1 Height (Feet): 5 Height (Inches): 7.00 Weight (Pounds): 48 Objective General Appearance: no apparent distress, alert, cachetic EENT: normal ENT inspection Neck: normal alignment, supple, normal inspection Cardiovascular: normal peripheral pulses, normal rate, regular rhythm, no gallop/murmur, no JVD Respiratory/Chest: chest wall non-tender, lungs clear, no respiratory distress , no accessory muscle use Abdomen: non tender, soft, no organomegaly, no mass Extremities: other - leg paralysis Edema: no edema noted Arm (L), no edema noted Arm (R), no edema noted Leg (L), no edema noted Leg (R), no edema noted Pedal (L), no edema noted Pedal (R), no edema noted Generalized Neurologic: respiratory care practitioner II-XII grossly normal, abnormal gait, alert, oriented x 3, responsive, normal mood/affect Skin: normal pigmentation, warm/dry, no diaphoresis Brittney Shaikh MD Nov 09, 2019 14:09
[2019-11-09] MEDS: Sodium Chloride 1gm Tab ORAL SCH ×2 (15:58→18:21)
[2019-11-09 16:00] VITALS: BP 117/63
--- NOTE | 2019-11-09 16:09 | Cardiac Electrophysiology PN ---
Assessment/Plan Assessment/Plan 1. S/P Septic shock. Resolved. Now febrile again On Midodrine, antibiotic and iv fluid 2. Bradycardia. Resolved. 3. Paraplegia. 4. Urinary tract infection, 5. Decubitus ulcers with sacral decubitus. 6. S/P Ileostomy/ 7. Polyuria, DI. On NS and DDAVP. KAMI RN Subjective Subjective Alert in NAD . DC to [facility] cancelled for T 101.7 Objective Last 24 Hour Vital Signs Date Time Temp Pulse Resp B/P (MAP) Pulse Ox O2 Delivery O2 Flow Rate FiO2 11/09/19 12:00 98.2 72 20 94/58 (70) 97 11/09/19 09:00 Room Air 11/09/19 08:00 98.8 74 18 96/57 (70) 97 11/09/19 04:00 97.7 62 20 95/56 (69) 98 11/09/19 00:00 97.3 67 18 90/51 (64) 98 11/08/19 21:00 Room Air 11/08/19 20:00 100.0 91 20 92/56 (68) 98 Intake and Output 11/08/19 11/09/19 19:00 07:00 Intake Total 800 ml 200 ml Output Total 1500 ml 1700 ml Balance -700 ml -1500 ml Intake Oral 800 ml IV Total 200 ml Output Urine Total 1500 ml 1700 ml # Bowel Movements 1 Microbiology Date/Time Source Procedure Growth Status 11/06/19 16:29 Indwelling Cath Urine Culture - Preliminary YEAST Resulted Objective HEAD AND NECK: No JVD. Right IJ central line. LUNGS: Coarse rhonchi. CARDIOVASCULAR: Regular S1 and S2 with no gallop. ABDOMEN: Soft.S/P Ileostomy EXTREMITIES: No pitting edema, however, has pressure ulcers. Carloz Estes MD Nov 09, 2019 16:09
[2019-11-09] MEDS: Desmopressin Nasal 5ml NASAL SCH (18:20)
[2019-11-09 20:00] VITALS: BP 108/63
[2019-11-10] VITALS: BP 112/68
[2019-11-10 04:45] VITALS: BP 91/54
[2019-11-10] MEDS: Midodrine 10mg tab ORAL SCH ×3 (05:37→21:00)
[2019-11-10 08:00] VITALS: BP 99/57
--- NOTE | 2019-11-10 08:28 | Pulmonology Progress Note ---
Subjective ROS Limited/Unobtainable: Yes Interval Events: Looking better Constitutional: Reports: fever, fatigue HEENT: Repors: no symptoms Respiratory: Reports: no symptoms Cardiovascular: Reports: no symptoms Gastrointestinal/Abdominal: Denies: nausea, vomiting, diarrhea Genitourinary: Reports: no symptoms Psychiatric: Denies: depression Skin: Denies: rash Musculoskeletal: Denies: pain Allergies: Coded Allergies: No Known Allergies (Unverified , 08/15/19) All Systems: reviewed and negative except above Objective Last 24 Hour Vital Signs Date Time Temp Pulse Resp B/P (MAP) Pulse Ox O2 Delivery O2 Flow Rate FiO2 11/10/19 04:45 98.2 81 18 91/54 (66) 96 11/10/19 00:00 97.8 68 18 112/68 (83) 99 11/09/19 21:00 Room Air 11/09/19 20:00 98.2 76 17 108/63 (78) 100 11/09/19 16:00 98.2 87 18 117/63 (81) 94 11/09/19 12:00 98.2 72 20 94/58 (70) 97 11/09/19 09:00 Room Air Intake and Output 11/09/19 11/10/19 19:00 07:00 Intake Total 525 ml 875 ml Output Total 800 ml 650 ml Balance -275 ml 225 ml Intake Oral 300 ml IV Total 225 ml 875 ml Output Urine Total 800 ml 650 ml # Voids 1 # Bowel Movements 1 3 General Appearance: no acute distress HEENT: normocephalic Respiratory: chest wall non-tender, lungs clear Cardiovascular: normal peripheral pulses, regular rhythm Abdomen: normal bowel sounds Extremities: no cyanosis Current Medications Medications (Trade) Dose Ordered Sig/Mya Route PRN Reason Start Time Stop Time Status Last Admin Dose Admin Acetaminophen (Tylenol) 650 mg Q4H PRN ORAL Mild Pain (Pain Scale 1-3) 11/05/19 14:00 11/30/19 13:59 11/08/19 08:39 Acetaminophen (Tylenol) 650 mg Q4H PRN ORAL Temp >100.5 11/05/19 16:00 12/05/19 15:59 11/07/19 21:12 Acetaminophen/ Hydrocodone Bitart ([place] 5/325) 2 tab Q4H PRN ORAL Severe Pain (Pain Scale 7-10) 11/08/19 15:45 11/15/19 15:44 11/09/19 21:02 Ascorbic Acid (Vitamin C) 500 mg DAILY ORAL 11/06/19 09:00 11/23/19 08:59 11/09/19 09:35 Baclofen (Lioresal) 10 mg THREE TIMES A DAY ORAL 11/05/19 18:00 11/22/19 17:59 11/09/19 18:21 Desmopressin Acetate (Ddavp) 1 spray BID NASAL 11/09/19 18:00 02/07/20 17:59 11/09/19 18:20 Dextrose (Dextrose 50%) 25 ml Q30M PRN IV Hypoglycemia 11/05/19 13:30 01/21/20 17:29 Dextrose (Dextrose 50%) 50 ml Q30M PRN IV Hypoglycemia 11/05/19 13:30 01/21/20 17:29 Diphenhydramine HCl (Benadryl) 25 mg Q6H PRN ORAL Itching/Pruritis 11/05/19 14:00 11/22/19 07:54 Docusate Sodium (Colace) 100 mg EVERY 12 HOURS ORAL 11/05/19 21:00 11/22/19 20:59 11/09/19 09:35 Famotidine (Pepcid) 20 mg DAILY ORAL 11/06/19 09:00 01/28/20 09:29 11/09/19 09:35 Ferrous Sulfate (Feosol) 325 mg DAILY ORAL 11/06/19 09:00 01/22/20 08:59 11/09/19 09:35 Fluconazole/ Sodium Chloride 200 ml @ 200 mls/hr Q24H IV 11/08/19 17:00 11/12/19 16:59 11/09/19 17:13 Gabapentin (Neurontin) 400 mg Q8HR ORAL 11/05/19 14:00 12/03/19 21:59 11/09/19 21:02 Heparin Sodium (Porcine) (Heparin 5000 units/ml) 5,000 units EVERY 12 HOURS SUBQ 11/05/19 21:00 12/08/19 08:59 11/09/19 21:05 Meropenem 1 gm/ Sodium Chloride 100 ml @ 200 mls/hr Q8HR IVPB 11/08/19 22:00 11/13/19 21:59 11/10/19 05:30 Midodrine (Pro-Amatine) 10 mg EVERY 8 HOURS ORAL 11/05/19 14:00 01/21/20 17:59 11/09/19 21:02 Ondansetron HCl (Zofran) 4 mg Q6H PRN IVP Nausea & Vomiting 11/05/19 14:00 11/22/19 07:57 Sodium Hypochlorite (Dakin's Quarter Strength) 1 applic DAILY TOPIC 11/06/19 09:00 11/24/19 08:59 11/09/19 09:00 Sodium Chloride 1,000 ml @ 75 mls/hr [id number] IV 11/09/19 10:00 12/09/19 09:59 11/10/19 01:27 Sodium Chloride (NaCl) 1 gm THREE TIMES A DAY ORAL 11/09/19 13:00 12/09/19 12:59 11/09/19 18:21 Vancomycin HCl (Vanco pharmacy to dose) 1 ea DAILY PRN MISC Per rx protocol 11/06/19 09:00 11/28/19 16:14 Vancomycin HCl 750 mg/Sodium Chloride 275 ml @ 183.333 mls/hr Q24H IVPB 11/08/19 11:00 11/13/19 10:59 11/09/19 12:45 Zinc Sulfate (Zinc Sulfate) 220 mg DAILY ORAL 11/06/19 09:00 01/22/20 08:59 11/09/19 09:35 Assessment/Plan Assessment/Plan IMPRESSION: 1. Septic shock. resolved 2. Complicated UTI with history of previous ESBL infection. 3. Paraplegia. 4. Sacral decubitus. 5. snf resident. DISCUSSION: DVT and GI prophylaxes. ID consult and follow-up noted. I will follow carefully. continue Oxygen, doing well on room air at this time. Haily Monzon Omar Syed MD Nov 10, 2019 08:28
--- NOTE | 2019-11-10 08:31 | Cardiac Electrophysiology PN ---
Assessment/Plan Assessment/Plan 1. S/P Septic shock. Resolved. Now febrile again On Midodrine, antibiotic, antifungal and iv fluid 2. Bradycardia. Resolved. 3. Paraplegia. 4. Urinary tract infection, 5. Decubitus ulcers with sacral decubitus. 6. S/P Ileostomy/ 7. Polyuria, DI. On NS, Salt tablets and DDAVP. KAMI RN Subjective Subjective Alert in NAD . On iv Abx for T 101.7. Now 98.2. RN at bedside Objective Last 24 Hour Vital Signs Date Time Temp Pulse Resp B/P (MAP) Pulse Ox O2 Delivery O2 Flow Rate FiO2 11/10/19 04:45 98.2 81 18 91/54 (66) 96 11/10/19 00:00 97.8 68 18 112/68 (83) 99 11/09/19 21:00 Room Air 11/09/19 20:00 98.2 76 17 108/63 (78) 100 11/09/19 16:00 98.2 87 18 117/63 (81) 94 11/09/19 12:00 98.2 72 20 94/58 (70) 97 11/09/19 09:00 Room Air Intake and Output 11/09/19 11/10/19 19:00 07:00 Intake Total 525 ml 875 ml Output Total 800 ml 650 ml Balance -275 ml 225 ml Intake Oral 300 ml IV Total 225 ml 875 ml Output Urine Total 800 ml 650 ml # Voids 1 # Bowel Movements 1 3 Objective HEAD AND NECK: No JVD. Right IJ central line. LUNGS: Coarse rhonchi. CARDIOVASCULAR: Regular S1 and S2 with no gallop. ABDOMEN: Soft.S/P Ileostomy EXTREMITIES: No pitting edema, however, has pressure ulcers. Carloz Estes MD Nov 10, 2019 08:31
[2019-11-10] MEDS: Zinc Sulfate 220mg ORAL SCH (08:33)
[2019-11-10] MEDS: Docusate 100mg cap ORAL SCH ×2 (08:33→20:52)
[2019-11-10] MEDS: Sodium Chloride 1gm Tab ORAL SCH ×3 (08:33→17:27)
[2019-11-10] MEDS: Ascorbic Acid 500mg tab ORAL SCH (08:33)
[2019-11-10] MEDS: Heparin 5000 units/ml inj SUBQ SCH ×2 (08:34→20:59)
[2019-11-10] MEDS: Desmopressin Nasal 5ml NASAL SCH ×2 (08:36→17:28)
[2019-11-10] MEDS ORDERED: Desmopressin (DDAVP) Inj IV SCH (09:00)
[2019-11-10 10:38] LABS: EOSINOPHILS % (AUTO) 1.7 % (0.0-3.0); HEMATOCRIT 29.5 % (42.0-52.0); HEMOGLOBIN 9.3 G/DL (14.2-18.0); LYMPHOCYTES % (AUTO) 16.5 % (20.0-45.0); MEAN CORPUSCULAR VOLUME 85 FL (80-99); MONOCYTES % (AUTO) 8.1 % (1.0-10.0); NEUTROPHILS % (AUTO) 71.7 % (45.0-75.0); PLATELET COUNT 605 K/UL (150-450); RED BLOOD COUNT 3.46 M/UL (4.70-6.10); RED CELL DISTRIBUTION WIDTH 16.6 % (11.6-14.8); WHITE BLOOD COUNT 11.7 K/UL (4.8-10.8)
[2019-11-10] MEDS: Dakin's 0.125% Soln (Quarter Strength) 16oz TOPIC SCH (10:45)
[2019-11-10] MEDS: Vancomycin 750mg/NS 275ml IVPB SCH ×2 (11:00)
[2019-11-10 11:01] LABS: ANION GAP 9 mmol/L (5-15); BLOOD UREA NITROGEN 15 mg/dL (7-18); CALCIUM 10.7 MG/DL (8.5-10.1); CARBON DIOXIDE 28 MMOL/L (21-32); CHLORIDE 95 MMOL/L (98-107); CREATININE 0.7 MG/DL (0.55-1.30); PHOSPHORUS 4.1 MG/DL (2.5-4.9); SODIUM 132 MMOL/L (136-145)
[2019-11-10 12:00] VITALS: BP 102/62
--- NOTE | 2019-11-10 13:33 | Surgery Progress Note ---
Surgery Progress Note Subjective Additional Comments Patient with loop ostomy now having bowel movements there is rectum again. Likely bypassing the loop. History of prior prolapse now seems reduced and likely bypassing. Will monitor Objective Last 24 Hour Vital Signs Date Time Temp Pulse Resp B/P (MAP) Pulse Ox O2 Delivery O2 Flow Rate FiO2 11/10/19 12:00 98.2 72 18 102/62 (75) 99 11/10/19 09:00 Room Air 11/10/19 08:00 97.8 77 18 99/57 (71) 99 11/10/19 04:45 98.2 81 18 91/54 (66) 96 11/10/19 00:00 97.8 68 18 112/68 (83) 99 11/09/19 21:00 Room Air 11/09/19 20:00 98.2 76 17 108/63 (78) 100 11/09/19 16:00 98.2 87 18 117/63 (81) 94 I&O Intake and Output 11/09/19 11/10/19 19:00 07:00 Intake Total 525 ml 875 ml Output Total 800 ml 650 ml Balance -275 ml 225 ml Intake Oral 300 ml IV Total 225 ml 875 ml Output Urine Total 800 ml 650 ml # Voids 1 # Bowel Movements 1 3 Dressing: saturated Cardiovascular: RSR Respiratory: decreased breath sounds Abdomen: soft, non-tender, present bowel sounds Extremities: no edema, no tenderness, no cyanosis Laboratory Tests Test 11/10/19 10:25 White Blood Count 11.7 K/UL (4.8-10.8) H Red Blood Count 3.46 M/UL (4.70-6.10) L Hemoglobin 9.3 G/DL (14.2-18.0) L Hematocrit 29.5 % (42.0-52.0) L Mean Corpuscular Volume 85 FL (80-99) Mean Corpuscular Hemoglobin 27.1 PG (27.0-31.0) Mean Corpuscular Hemoglobin Concent 31.6 G/DL (32.0-36.0) L Red Cell Distribution Width 16.6 % (11.6-14.8) H Platelet Count 605 K/UL (150-450) H Mean Platelet Volume 4.4 FL (6.5-10.1) L Neutrophils (%) (Auto) 71.7 % (45.0-75.0) Lymphocytes (%) (Auto) 16.5 % (20.0-45.0) L Monocytes (%) (Auto) 8.1 % (1.0-10.0) Eosinophils (%) (Auto) 1.7 % (0.0-3.0) Basophils (%) (Auto) 2.0 % (0.0-2.0) Sodium Level 132 MMOL/L (136-145) L Potassium Level 4.0 MMOL/L (3.5-5.1) Chloride Level 95 MMOL/L (98-107) L Carbon Dioxide Level 28 MMOL/L (21-32) Anion Gap 9 mmol/L (5-15) Blood Urea Nitrogen 15 mg/dL (7-18) Creatinine 0.7 MG/DL (0.55-1.30) Estimat Glomerular Filtration Rate > 60 mL/min (>60) Glucose Level 109 MG/DL (74-106) H Calcium Level 10.7 MG/DL (8.5-10.1) H Phosphorus Level 4.1 MG/DL (2.5-4.9) Vancomycin Level Trough 6.6 ug/mL (5.0-12.0) Plan Problems: (1) Abdominal distension Assessment & Plan: abd distention soft non tender ostomy viable and reduced KUB ordered pending results improved comfortable no complaints okay for diet s tolerated d/c planning much improved There is an inferior vena cava filter in place. Bowel gas pattern is unremarkable. Considerable stool is seen in the transverse and distal colon. There is extensive pelvic deformity, with loss of the left femoral head, chronic dislocation of the left femur, and extensive pelvic deformity, particularly on the left. Adi project over the upper pelvis Impression: Possible constipation. 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 [place] Shaped, Full Thickness Sacral Pressure Injury which extends into L ischium. (L)15.4cm x (W)18cm x (D)2.4cm, Undermining clockwise 10-2 by 7.7cm @ 11o'clock. Base of wound is moist,pink with scattered slough at base of wound. Bone is palpable at the Base. No odor or exudate noted. Scattered partial thickness wounds and Serous filled blisters noted to R trochanteric /R Hip areas. Historical scar noted to L groin, L Hip L Buttocks. Bony protrusion noted at L Hip. Full thickness Pressure Injury R Ischium(L)5.4cm x(W)6.9cm x (D)1.8cm, Undermining clockwise 1-4 by 2.7cm @2o'clock, Tunneling@7o'clock 2.9cm. Base of wound is moist pink with scattered slough. Scattered slough noted along borders. NO odor or exudate noted. Stable dry eschar noted to medial R knee 0.7cm x (W)0.4cm. Periwound is erythematous and indurated. No elevation in skin temp noted. L heel has shaved appearance secondary to Hx of Pressure Injuries. Base of heel is pale pink. Bone is palpable. Small area of slough noted within compromised area(L)0.6cm x (W)0.8cm. L Heel Also has shaved appearance with hypertrophic scarring. Base of compromised area is pale pink, Bone is palpable, with scattered loose, dry and scaly skin. Tx.Plan: Cleanse Sacral Wound and R Ischial wounds with Dakin's 0.125% gian. Loosely pack wounds with Hydrogel impregnated Kerlix. Apply Moisture Barrier Paste periwound. Cover with ABD Pads secure with Tegaderm drsg.Daily and prn. Apply Triad Paste to R Hip/R trochanteric areas.Cover with Optifoam drsg. Change every 7 days and prn. Apply Betadine to Medial R Knee. Cover with Optifoam drsg. Change every 7 days and prn. Apply Betadine to R and L Heels. Cover each Heel with Optifoam drsgs. Change every 7 days and prn. Cover Bony Prominences as needed with Optifoam drsgs. Reposition at least every 2 [address] tolerated[address] Pillow between knees. Off-load heels with pillow. APM/SUMI Mattress overlay DAILY ESTIMATED NEEDS: Needs based on Advanced wounds, wt loss/ 40.18kg 35-40 kcals/kg 2365-0863 total kcals 1.5-2.0 g protein/kg 60-80 g total protein 25-35ml/kcal mL/kg 5270-6251 total fluid mLs NUTRITION DIAGNOSIS: Increased kcal/prot/micronutrients needs R/T wound healing and underweight status as evidenced by pt admitted w/ multiple advanced wounds, refer to WC eval, pt now w/ further 3% unfavorable wt loss, currently BMI underweight per guidelines, @62% of [place] Body Weight. 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 + Ensure Enlive TID w/ meals ADDITIONAL RECOMMENDATIONS: * Per SNF: HT=66" WT=88lbs; -> vs current EMR wt =120# -> Recalibrate bed scale for accurate wts * Continue Ensure TID, whole milk TID w/ meals * Monitor for continued improved/good Po intake * Wound healing:add MVI w/ min qdaily Continue w/ ZnSO4, Vit C, and Amari BID * Monitor Na, need for fluid restriction - (132 improved, on nacl) (15) SEAN (acute kidney injury) (16) Ileostomy prolapse Assessment & Plan: currently reduced but abd distended pending films films reviewed improved okay for diet d/c planning Cornelius Salgado Nov 10, 2019 13:33
--- NOTE | 2019-11-10 13:45 | Infectious Diseases Prog Note ---
Assessment/Plan Assessment/Plan ASSESSMENT AND PLAN: 1. sepsis, shock, proteus uti, esbl e.coli uti, possible aspiration pna/hcap vs cap, sacral wound - ? infected, mrsa and vre colonization persistent fevers, legal executive assistant line infection, fungal uti, ? fungemia, new pneumonia on cheat x-ray - vancomycin, diflucan and meropenem x 5 days - chest x-ray improved, fevers improved - cultures noted - monitor labs and chest x-rays - line removed - communicated with Dr. Shaikh - stable ID standpoint 2. ICU care. 3. Sacral wound -wound mostly clean, management per surgery 4. Ostomy malfunction - per surgery 5. Hypertension. 6. Paraplegia. 7. Anemia. 8. History of decubitus ulcer, rule out infection. Infectious diseases is following. The patient on antibiotics. 9. Hypertension treatment per primary care team. 10. Continue treatment per primary consultants. 11. No known drug allergies. 12. Social history is negative. 13. Family history is noncontributory. 14. MAR was noted. 15. Case discussed with RN. Subjective Constitutional: Reports: fatigue; Denies: fever HEENT: Denies: congestion Respiratory: Denies: shortness of breath Cardiovascular: Denies: chest pain Gastrointestinal/Abdominal: Denies: nausea, vomiting, diarrhea Genitourinary: Reports: other - + donohue Neurologic: Reports: weakness, other - alert Psychiatric: Reports: other - NA Skin: Reports: other - wounds covered ; Denies: rash Hematologic: Denies: bleeding Musculoskeletal: Denies: pain Allergies: Coded Allergies: No Known Allergies (Unverified , 08/15/19) Objective Last 24 Hour Vital Signs Date Time Temp Pulse Resp B/P (MAP) Pulse Ox O2 Delivery O2 Flow Rate FiO2 11/10/19 12:00 98.2 72 18 102/62 (75) 99 11/10/19 09:00 Room Air 11/10/19 08:00 97.8 77 18 99/57 (71) 99 11/10/19 04:45 98.2 81 18 91/54 (66) 96 11/10/19 00:00 97.8 68 18 112/68 (83) 99 11/09/19 21:00 Room Air 11/09/19 20:00 98.2 76 17 108/63 (78) 100 11/09/19 16:00 98.2 87 18 117/63 (81) 94 Height (Feet): 5 Height (Inches): 7.00 Weight (Pounds): 114 General Appearance: no acute distress HEENT: normocephalic, atraumatic, anicteric, mucous membranes moist Respiratory/Chest: no accessory muscle use, crackles/rales, rhonchi - bilaterally Cardiovascular: normal rate, regular rhythm Abdomen: normal bowel sounds, soft, non tender, no organomegaly Genitourinary: other - + donohue Extremities: no cyanosis, other - no cellulitis Skin: no rash, other - wounds - covered 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 There is some atelectasis at the left lung base as well. Right jugular central venous catheter remains. The heart size is normal. Impression: New/increased bilateral basilar infiltrates, since prior study 2019 Chest x-ray - 10/27/19 - Procedure: XRAY Chest 1v Indication: Shortness of breath Technique: One view of the chest Comparison: 10/25/2019 Findings: There is atelectasis possibly some focal consolidation at the right lung base. Atelectatic changes previously demonstrated at the left lung base have largely cleared. Right jugular central venous catheter remains. The heart size is normal. Impression: Improving left basilar atelectasis. 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 No new consolidation is seen. Pleural space: Unremarkable. The costophrenic angles are sharp. No visible pneumothorax. Heart: Unremarkable. No cardiomegaly. Mediastinum: Unremarkable. Bones/joints: Unremarkable. Vasculature: Mild atherosclerotic calcifications are noted within the aortic arch. Tubes, lines and devices: Stable positioning of a right IJ central venous catheter with the tip in the SVC. Telemetry leads overlie the thorax. IMPRESSION: Persistent subsegmental atelectasis in bilateral lower lungs, not significantly changed compared to the prior exam. Chest x-rasy - 11/03/19 - Procedure: XRAY Chest 1v Indication: Cough Technique: One view of the chest Comparison: 10/29/2019 Findings: There are increased atelectatic changes at the lung bases. Interim removal of previously demonstrated central venous catheter. The pleural spaces are clear. The heart size is normal. Impression: Increasing bilateral basilar atelectasis Interim central venous catheter removal. Chest x-ray - 11/07/19 - Procedure: XRAY Chest 1v Indication: Shortness of breath Technique: One view of the chest Comparison: 11/03/2019 Findings: Bilateral basilar atelectatic changes appear similar to the previous exam. There may be some patchy left perihilar and bilateral peripheral consolidation. The heart size is normal. Impression: New or increased faint patchy peripheral and left perihilar consolidative opacities, possibly reflecting multifocal pneumonia, since prior study 03/04/2019 Persistent bilateral basilar atelectatic changes Chest x-ray - 11/09/19 - Procedure: XRAY Chest 1v Indication: Cough Technique: One view of the chest Comparison: 11/07/2019 Findings: There is improved aeration of the lung bases, although some atelectasis persists bilaterally. No new infiltrates. The pleural spaces are clear. The heart size is normal. Impression: Improved aeration with decreased basilar atelectasis Microbiology Date/Time Source Procedure Growth Status 11/04/19 12:20 Blood Blood Culture - Final NO GROWTH AFTER 5 DAYS Complete 11/02/19 13:30 Nasopharynx SARS-CoV-2 RdRp Gene Assay - Final Complete 11/06/19 16:29 Indwelling Cath Urine Culture - Final YEAST Complete 11/03/19 08:00 Catheter Site Catheter Tip Culture - Final Staphylococcus Sp Coag Neg Complete Laboratory Tests Test 11/10/19 10:25 White Blood Count 11.7 K/UL (4.8-10.8) H Red Blood Count 3.46 M/UL (4.70-6.10) L Hemoglobin 9.3 G/DL (14.2-18.0) L Hematocrit 29.5 % (42.0-52.0) L Mean Corpuscular Volume 85 FL (80-99) Mean Corpuscular Hemoglobin 27.1 PG (27.0-31.0) Mean Corpuscular Hemoglobin Concent 31.6 G/DL (32.0-36.0) L Red Cell Distribution Width 16.6 % (11.6-14.8) H Platelet Count 605 K/UL (150-450) H Mean Platelet Volume 4.4 FL (6.5-10.1) L Neutrophils (%) (Auto) 71.7 % (45.0-75.0) Lymphocytes (%) (Auto) 16.5 % (20.0-45.0) L Monocytes (%) (Auto) 8.1 % (1.0-10.0) Eosinophils (%) (Auto) 1.7 % (0.0-3.0) Basophils (%) (Auto) 2.0 % (0.0-2.0) Sodium Level 132 MMOL/L (136-145) L Potassium Level 4.0 MMOL/L (3.5-5.1) Chloride Level 95 MMOL/L (98-107) L Carbon Dioxide Level 28 MMOL/L (21-32) Anion Gap 9 mmol/L (5-15) Blood Urea Nitrogen 15 mg/dL (7-18) Creatinine 0.7 MG/DL (0.55-1.30) Estimat Glomerular Filtration Rate > 60 mL/min (>60) Glucose Level 109 MG/DL (74-106) H Calcium Level 10.7 MG/DL (8.5-10.1) H Phosphorus Level 4.1 MG/DL (2.5-4.9) Vancomycin Level Trough 6.6 ug/mL (5.0-12.0) Current Medications Medications (Trade) Dose Ordered Sig/Mya Route PRN Reason Start Time Stop Time Status Last Admin Dose Admin Acetaminophen (Tylenol) 650 mg Q4H PRN ORAL Mild Pain (Pain Scale 1-3) 11/05/19 14:00 11/30/19 13:59 11/08/19 08:39 Acetaminophen (Tylenol) 650 mg Q4H PRN ORAL Temp >100.5 11/05/19 16:00 12/05/19 15:59 11/07/19 21:12 Acetaminophen/ Hydrocodone Bitart ([place] 5/325) 2 tab Q4H PRN ORAL Severe Pain (Pain Scale 7-10) 11/08/19 15:45 11/15/19 15:44 11/09/19 21:02 Ascorbic Acid (Vitamin C) 500 mg DAILY ORAL 11/06/19 09:00 11/23/19 08:59 11/10/19 08:33 Baclofen (Lioresal) 10 mg THREE TIMES A DAY ORAL 11/05/19 18:00 11/22/19 17:59 11/10/19 12:19 Desmopressin Acetate (Ddavp) 1 spray BID NASAL 11/09/19 18:00 02/07/20 17:59 11/10/19 08:36 Dextrose (Dextrose 50%) 25 ml Q30M PRN IV Hypoglycemia 11/05/19 13:30 01/21/20 17:29 Dextrose (Dextrose 50%) 50 ml Q30M PRN IV Hypoglycemia 11/05/19 13:30 01/21/20 17:29 Diphenhydramine HCl (Benadryl) 25 mg Q6H PRN ORAL Itching/Pruritis 11/05/19 14:00 11/22/19 07:54 Docusate Sodium (Colace) 100 mg EVERY 12 HOURS ORAL 11/05/19 21:00 11/22/19 20:59 11/10/19 08:33 Famotidine (Pepcid) 20 mg DAILY ORAL 11/06/19 09:00 01/28/20 09:29 11/10/19 08:33 Ferrous Sulfate (Feosol) 325 mg DAILY ORAL 11/06/19 09:00 01/22/20 08:59 11/10/19 08:33 Fluconazole/ Sodium Chloride 200 ml @ 200 mls/hr Q24H IV 11/08/19 17:00 11/12/19 16:59 11/09/19 17:13 Gabapentin (Neurontin) 400 mg Q8HR ORAL 11/05/19 14:00 12/03/19 21:59 11/09/19 21:02 Heparin Sodium (Porcine) (Heparin 5000 units/ml) 5,000 units EVERY 12 HOURS SUBQ 11/05/19 21:00 12/08/19 08:59 11/10/19 08:34 Meropenem 1 gm/ Sodium Chloride 100 ml @ 200 mls/hr Q8HR IVPB 11/08/19 22:00 11/13/19 21:59 11/10/19 05:30 Midodrine (Pro-Amatine) 10 mg EVERY 8 HOURS ORAL 11/05/19 14:00 01/21/20 17:59 11/09/19 21:02 Ondansetron HCl (Zofran) 4 mg Q6H PRN IVP Nausea & Vomiting 11/05/19 14:00 11/22/19 07:57 Sodium Hypochlorite (Dakin's Quarter Strength) 1 applic DAILY TOPIC 11/06/19 09:00 11/24/19 08:59 11/10/19 10:45 Sodium Chloride 1,000 ml @ 75 mls/hr [id number] IV 11/09/19 10:00 12/09/19 09:59 11/10/19 11:46 Sodium Chloride (NaCl) 1 gm THREE TIMES A DAY ORAL 11/09/19 13:00 12/09/19 12:59 11/10/19 12:20 Vancomycin HCl (Vanco pharmacy to dose) 1 ea DAILY PRN MISC Per rx protocol 11/06/19 09:00 11/28/19 16:14 Vancomycin HCl 750 mg/Sodium Chloride 275 ml @ 183.333 mls/hr Q24H IVPB 11/08/19 11:00 11/10/19 15:00 11/10/19 11:00 Vancomycin HCl 1 gm/Dextrose 275 ml @ 183.708 mls/hr Q24H IVPB 11/11/19 03:00 11/16/19 02:59 Zinc Sulfate (Zinc Sulfate) 220 mg DAILY ORAL 11/06/19 09:00 01/22/20 08:59 11/10/19 08:33 Sharif Painting MD Nov 10, 2019 13:45
[2019-11-10] MEDS: HYDROcodone/Acetamin 5/325 tab ORAL PRN (13:51)
--- NOTE | 2019-11-10 14:15 | Hematology/Onc Progress Note ---
Assessment/Plan Assessment/Plan Assessment/recs # Anemia rule out gi bleed, as well as iron deficiency --> hgb 8.2-->7.2-->7.1->6.9-->8.6-->8.3-->9.3-->8.3-->9.3 --> anemia panel ordered--> cw acd --> occult blood pending --> gi eval prn --> transfuse as needed --> transfuse 2 units 10/27 --> po iron to continue # Coagulopathy with elev ptt/inr --> vitk and ffp as needed --> no bleeding noted at this time # Thrombocytosis likely reactive process --> plt 398-->608-->605 --> abx as needed # Hypotension likely due to septic shock. Was diuresing heavily at 300 mL an hour. --> Continue on midodrine and dopamine. --> IV antibiotic with vancomycin and meropenem and amikacin-->christel/vanc/difluc --> before requires pressors --> as per cards # Bradycardia. --> per cards # Paraplegia. # Urinary tract infection --> followed by Dr. Painting on broad-spectrum IV antibiotic. # Decubitus ulcers with sacral decubitus. # Dvt heparin sq Appreciate consultation and chandrakant RN Subjective Constitutional: Denies: no symptoms, chills, fever, malaise, weakness, other Cardiovascular: Denies: no symptoms, chest pain, edema, irregular heart rate, lightheadedness, palpitations, syncope, other Respiratory: Denies: no symptoms, cough, shortness of breath, SOB with excertion, SOB at rest, sputum, wheezing, other Genitourinary: Denies: no symptoms, burning, discharge, frequency, flank pain, hematuria, incontinence, pain, urgency, other Neurologic/Psychiatric: Denies: no symptoms, anxiety, depressed, emotional problems, headache, numbness, paresthesia, pre-existing deficit, seizure, tingling, tremors, weakness, other Endocrine: Denies: no symptoms, excessive sweating, flushing, intolerance to cold, intolerance to heat, increased hunger, increased thirst, increased urine, unexplained weight gain, unexplained weight loss, other Allergies: Coded Allergies: No Known Allergies (Unverified , 08/15/19) Subjective 10/27 labs again refused this am, yesterday was low, chandrakant rn in icu 10/28 remains in icu, for 2units prbc this am, chandrakant rn, no other events 10/29 s/p prbc, tolerated it well, no bleeding, on 1mcg levo, in icu 10/30 on abx, on levo and overnight no other events, chandrakant graphic design intern\ 10/31 wounds improved, labs noted, no bleeding, hgb lower, refusing care/wound care 11/01 labs noted, no bleeding, no hematochezia, no hemoptysis, cbc ordered 11/02 meds reviewed, labs noted, no bleeding, chandrakant rn, no major changes, hgb 8.3 11/04 labs have been noted, no bleeding, meds reviewed, no hemolysis 11/05 functional colostomy llq, no bleeding, cbc is pending for am 11/06 labs have been refused, hgb 8.3, no bleeding, wbc is higher in am 11/07 labs have initially been refused, no bleeding in am, wbc 13, on abx 11/08 labs reviewed, no bleeding, chandrakant [place], cbc is pending for am 11/09 is on vanc/difl/christel, no other changes, cbc and bmp are noted Objective Objective Current Medications Medications (Trade) Dose Ordered Sig/Mya Route PRN Reason Start Time Stop Time Status Last Admin Dose Admin Acetaminophen (Tylenol) 650 mg Q4H PRN ORAL Mild Pain (Pain Scale 1-3) 11/05/19 14:00 11/30/19 13:59 11/08/19 08:39 Acetaminophen (Tylenol) 650 mg Q4H PRN ORAL Temp >100.5 11/05/19 16:00 12/05/19 15:59 11/07/19 21:12 Acetaminophen/ Hydrocodone Bitart ([place] 5/325) 2 tab Q4H PRN ORAL Severe Pain (Pain Scale 7-10) 11/08/19 15:45 11/15/19 15:44 11/10/19 13:51 Ascorbic Acid (Vitamin C) 500 mg DAILY ORAL 11/06/19 09:00 11/23/19 08:59 11/10/19 08:33 Baclofen (Lioresal) 10 mg THREE TIMES A DAY ORAL 11/05/19 18:00 11/22/19 17:59 11/10/19 12:19 Desmopressin Acetate (Ddavp) 1 spray BID NASAL 11/09/19 18:00 02/07/20 17:59 11/10/19 08:36 Dextrose (Dextrose 50%) 25 ml Q30M PRN IV Hypoglycemia 11/05/19 13:30 01/21/20 17:29 Dextrose (Dextrose 50%) 50 ml Q30M PRN IV Hypoglycemia 11/05/19 13:30 01/21/20 17:29 Diphenhydramine HCl (Benadryl) 25 mg Q6H PRN ORAL Itching/Pruritis 11/05/19 14:00 11/22/19 07:54 Docusate Sodium (Colace) 100 mg EVERY 12 HOURS ORAL 11/05/19 21:00 11/22/19 20:59 11/10/19 08:33 Famotidine (Pepcid) 20 mg DAILY ORAL 11/06/19 09:00 01/28/20 09:29 11/10/19 08:33 Ferrous Sulfate (Feosol) 325 mg DAILY ORAL 11/06/19 09:00 01/22/20 08:59 11/10/19 08:33 Fluconazole (Diflucan) 400 mg DAILY ORAL 11/10/19 17:00 11/17/19 16:59 Gabapentin (Neurontin) 400 mg Q8HR ORAL 11/05/19 14:00 12/03/19 21:59 11/10/19 13:51 Heparin Sodium (Porcine) (Heparin 5000 units/ml) 5,000 units EVERY 12 HOURS SUBQ 11/05/19 21:00 12/08/19 08:59 11/10/19 08:34 Meropenem 1 gm/ Sodium Chloride 100 ml @ 200 mls/hr Q8HR IVPB 11/08/19 22:00 11/13/19 21:59 11/10/19 13:51 Midodrine (Pro-Amatine) 10 mg EVERY 8 HOURS ORAL 11/05/19 14:00 01/21/20 17:59 11/10/19 13:51 Ondansetron HCl (Zofran) 4 mg Q6H PRN IVP Nausea & Vomiting 11/05/19 14:00 11/22/19 07:57 Sodium Hypochlorite (Dakin's Quarter Strength) 1 applic DAILY TOPIC 11/06/19 09:00 11/24/19 08:59 11/10/19 10:45 Sodium Chloride 1,000 ml @ 75 mls/hr [id number] IV 11/09/19 10:00 12/09/19 09:59 11/10/19 11:46 Sodium Chloride (NaCl) 1 gm THREE TIMES A DAY ORAL 11/09/19 13:00 12/09/19 12:59 11/10/19 12:20 Vancomycin HCl (Vanco pharmacy to dose) 1 ea DAILY PRN MISC Per rx protocol 11/06/19 09:00 11/28/19 16:14 Vancomycin HCl 750 mg/Sodium Chloride 275 ml @ 183.333 mls/hr Q24H IVPB 11/08/19 11:00 11/10/19 15:00 11/10/19 11:00 Vancomycin HCl 1 gm/Dextrose 275 ml @ 183.708 mls/hr Q24H IVPB 11/11/19 03:00 11/16/19 02:59 Zinc Sulfate (Zinc Sulfate) 220 mg DAILY ORAL 11/06/19 09:00 01/22/20 08:59 11/10/19 08:33 Last 24 Hour Vital Signs Date Time Temp Pulse Resp B/P (MAP) Pulse Ox O2 Delivery O2 Flow Rate FiO2 11/10/19 12:00 98.2 72 18 102/62 (75) 99 11/10/19 09:00 Room Air 11/10/19 08:00 97.8 77 18 99/57 (71) 99 11/10/19 04:45 98.2 81 18 91/54 (66) 96 11/10/19 00:00 97.8 68 18 112/68 (83) 99 11/09/19 21:00 Room Air 11/09/19 20:00 98.2 76 17 108/63 (78) 100 11/09/19 16:00 98.2 87 18 117/63 (81) 94 11/09/19 12:00 98.2 72 20 94/58 (70) 97 11/09/19 09:00 Room Air 11/09/19 08:00 98.8 74 18 96/57 (70) 97 11/09/19 04:00 97.7 62 20 95/56 (69) 98 11/09/19 00:00 97.3 67 18 90/51 (64) 98 11/08/19 21:00 Room Air 11/08/19 20:00 100.0 91 20 92/56 (68) 98 11/08/19 16:00 96.6 87 19 129/71 (90) 100 Intake and Output 11/09/19 11/10/19 19:00 07:00 Intake Total 525 ml 875 ml Output Total 800 ml 650 ml Balance -275 ml 225 ml Intake Oral 300 ml IV Total 225 ml 875 ml Output Urine Total 800 ml 650 ml # Voids 1 # Bowel Movements 1 3 Labs Test 11/08/19 08:55 11/10/19 10:25 White Blood Count 10.1 K/UL (4.8-10.8) 11.7 K/UL (4.8-10.8) Red Blood Count 3.08 M/UL (4.70-6.10) 3.46 M/UL (4.70-6.10) Hemoglobin 8.3 G/DL (14.2-18.0) 9.3 G/DL (14.2-18.0) Hematocrit 26.1 % (42.0-52.0) 29.5 % (42.0-52.0) Mean Corpuscular Volume 85 FL (80-99) 85 FL (80-99) Mean Corpuscular Hemoglobin 27.0 PG (27.0-31.0) 27.1 PG (27.0-31.0) Mean Corpuscular Hemoglobin Concent 31.8 G/DL (32.0-36.0) 31.6 G/DL (32.0-36.0) Red Cell Distribution Width 16.5 % (11.6-14.8) 16.6 % (11.6-14.8) Platelet Count 608 K/UL (150-450) 605 K/UL (150-450) Mean Platelet Volume 4.5 FL (6.5-10.1) 4.4 FL (6.5-10.1) Neutrophils (%) (Auto) 66.1 % (45.0-75.0) 71.7 % (45.0-75.0) Lymphocytes (%) (Auto) 20.8 % (20.0-45.0) 16.5 % (20.0-45.0) Monocytes (%) (Auto) 8.8 % (1.0-10.0) 8.1 % (1.0-10.0) Eosinophils (%) (Auto) 2.6 % (0.0-3.0) 1.7 % (0.0-3.0) Basophils (%) (Auto) 1.7 % (0.0-2.0) 2.0 % (0.0-2.0) Sodium Level 135 MMOL/L (136-145) 132 MMOL/L (136-145) Potassium Level 3.5 MMOL/L (3.5-5.1) 4.0 MMOL/L (3.5-5.1) Chloride Level 97 MMOL/L (98-107) 95 MMOL/L (98-107) Carbon Dioxide Level 27 MMOL/L (21-32) 28 MMOL/L (21-32) Anion Gap 11 mmol/L (5-15) 9 mmol/L (5-15) Blood Urea Nitrogen 21 mg/dL (7-18) 15 mg/dL (7-18) Creatinine 0.7 MG/DL (0.55-1.30) 0.7 MG/DL (0.55-1.30) Estimat Glomerular Filtration Rate > 60 mL/min (>60) > 60 mL/min (>60) Glucose Level 169 MG/DL (74-106) 109 MG/DL (74-106) Calcium Level 9.0 MG/DL (8.5-10.1) 10.7 MG/DL (8.5-10.1) Phosphorus Level 4.1 MG/DL (2.5-4.9) 4.1 MG/DL (2.5-4.9) Magnesium Level 1.9 MG/DL (1.8-2.4) Random Vancomycin Level 9.3 ug/mL Vancomycin Level Trough 6.6 ug/mL (5.0-12.0) Height (Feet): 5 Height (Inches): 7.00 Weight (Pounds): 114 Objective Physical Exam General Appearance: lethargic Lines, tubes and drains: peripheral, central line HEENT: normocephalic Neck: non-tender, normal alignment Respiratory/Chest: lungs clear Cardiovascular/Chest: normal peripheral pulses, normal rate, regular rhythm Abdomen: normal bowel sounds, non tender ++ llq colostomy Martínez Capps MD Nov 10, 2019 14:15
[2019-11-10 16:00] VITALS: BP 102/53
[2019-11-10] MEDS: Fluconazole 100mg tab ORAL SCH (16:17)
--- NOTE | 2019-11-10 16:41 | Nephrology Progress Note ---
Assessment/Plan Plan #Polyuria - r/o DI vs dopamine effect??- however sodium remains in normal range #Shock #UTI # infected sacral pressure ulcer #Acute metabolic encephalopathy #Paraplegia #Sacral pressure ulcer #Hypokalemia #Anemia -Continue desmopressin 1 nsala BID and salt tabs 1g TID - continue midodrine 10 TID - ok to DC to snf today - antibiotics per ID - monitor lytes - monitor for vanoc toxicity - avoid nephrotoxins - daily weights - strict I&Os time spent 70 min- greater than 50% on care coordination and counseling Subjective ROS Limited/Unobtainable: Yes Subjective UOP less on nasal desmopressin on salt tabs Objective Objective Last 24 Hour Vital Signs Date Time Temp Pulse Resp B/P (MAP) Pulse Ox O2 Delivery O2 Flow Rate FiO2 11/10/19 16:19 98.1 11/10/19 16:00 101.7 87 18 102/53 (69) 96 11/10/19 12:00 98.2 72 18 102/62 (75) 99 11/10/19 09:00 Room Air 11/10/19 08:00 97.8 77 18 99/57 (71) 99 11/10/19 04:45 98.2 81 18 91/54 (66) 96 11/10/19 00:00 97.8 68 18 112/68 (83) 99 11/09/19 21:00 Room Air 11/09/19 20:00 98.2 76 17 108/63 (78) 100 Intake and Output 11/09/19 11/10/19 19:00 07:00 Intake Total 525 ml 875 ml Output Total 800 ml 650 ml Balance -275 ml 225 ml Intake Oral 300 ml IV Total 225 ml 875 ml Output Urine Total 800 ml 650 ml # Voids 1 # Bowel Movements 1 3 Laboratory Tests 11/10/19 10:25: White Blood Count 11.7H, Red Blood Count 3.46L, Hemoglobin 9.3L, Hematocrit 29.5L, Mean Corpuscular Volume 85, Mean Corpuscular Hemoglobin 27.1, Mean Corpuscular Hemoglobin Concent 31.6L, Red Cell Distribution Width 16.6H, Platelet Count 605H, Mean Platelet Volume 4.4L, Neutrophils (%) (Auto) 71.7, Lymphocytes (%) (Auto) 16.5L, Monocytes (%) (Auto) 8.1, Eosinophils (%) (Auto) 1.7, Basophils (%) (Auto) 2.0, Sodium Level 132L, Potassium Level 4.0, Chloride Level 95L, Carbon Dioxide Level 28, Anion Gap 9, Blood Urea Nitrogen 15, Creatinine 0.7, Estimat Glomerular Filtration Rate > 60, Glucose Level 109H, Calcium Level 10.7H, Phosphorus Level 4.1, Vancomycin Level Trough 6.6 Height (Feet): 5 Height (Inches): 7.00 Weight (Pounds): 114 General Appearance: no apparent distress EENT: PERRL/EOMI, normal ENT inspection Neck: non-tender, normal alignment Cardiovascular: normal peripheral pulses, normal rate, regular rhythm Respiratory/Chest: chest wall non-tender, lungs clear Abdomen: normal bowel sounds, non tender, soft Neurologic: alert, oriented x 3 Sienna Georges M.D. Nov 10, 2019 16:41
[2019-11-10 20:00] VITALS: BP 97/52
--- NOTE | 2019-11-10 20:06 | General Progress Note ---
Assessment/Plan Status: stable Assessment/Plan: 59 year old man who presents from [facility] with weakness, encephalopathy, concern for septic shock, possible from UTI vs infected sacral pressure ulcer #Septic shock- improving #Proteus UTI #Acute metabolic encephalopathy -improving #Paraplegia #Sacral pressure ulcer, present on admit #Persistent fevers -Off vasopressors -off amikacin, -ZOsyn 11/06/19 - 11/07. -abx changed to vancomycin, diflucan and meropenem, 11/07 - x 5 more days -Per surgery, sacral pressure ulcer does not appear to be infected -Local wound care and offloading -Dispo planning: - Pt medically cleared for DC, pending bed at [facility] #Sinus Bradycardia - resolved -continue telemetry -EP following #Hyponatremia -improving on salt tabs #Polyuria #Hypokalemia -improving -Replete when necessary -Desmopressin 2IV daily -changed to intranasal -Salt tabs 1gTID -monitor UOP -decreasing #Anemia, acute on chronic -2 units RBC 10/28 -Hematology following Full Code I spent 35 minutes on this patient today , and 20 mins was dedicated to counseling and care coordination. Discussed with all consultants, Charge nurse and RNs. Subjective Date patient seen: Nov 10, 2019 ROS Limited/Unobtainable: No Allergies: Coded Allergies: No Known Allergies (Unverified , 08/15/19) All Systems: reviewed and negative except above Subjective Afebrile, Urine output decreasing, NA improving. Pt sitting up in bed, has no complaints. saturating well on RA Dispo: Pt medically cleared for discharge, pending bed at [facility] Objective Last 24 Hour Vital Signs Date Time Temp Pulse Resp B/P (MAP) Pulse Ox O2 Delivery O2 Flow Rate FiO2 11/10/19 16:19 98.1 11/10/19 16:00 101.7 87 18 102/53 (69) 96 11/10/19 12:00 98.2 72 18 102/62 (75) 99 11/10/19 09:00 Room Air 11/10/19 08:00 97.8 77 18 99/57 (71) 99 11/10/19 04:45 98.2 81 18 91/54 (66) 96 11/10/19 00:00 97.8 68 18 112/68 (83) 99 11/09/19 21:00 Room Air Intake and Output 11/09/19 11/10/19 19:00 07:00 Intake Total 525 ml 875 ml Output Total 800 ml 650 ml Balance -275 ml 225 ml Intake Oral 300 ml IV Total 225 ml 875 ml Output Urine Total 800 ml 650 ml # Voids 1 # Bowel Movements 1 3 Laboratory Tests 11/10/19 10:25: White Blood Count 11.7H, Red Blood Count 3.46L, Hemoglobin 9.3L, Hematocrit 29.5L, Mean Corpuscular Volume 85, Mean Corpuscular Hemoglobin 27.1, Mean Corpuscular Hemoglobin Concent 31.6L, Red Cell Distribution Width 16.6H, Platelet Count 605H, Mean Platelet Volume 4.4L, Neutrophils (%) (Auto) 71.7, Lymphocytes (%) (Auto) 16.5L, Monocytes (%) (Auto) 8.1, Eosinophils (%) (Auto) 1.7, Basophils (%) (Auto) 2.0, Sodium Level 132L, Potassium Level 4.0, Chloride Level 95L, Carbon Dioxide Level 28, Anion Gap 9, Blood Urea Nitrogen 15, Creatinine 0.7, Estimat Glomerular Filtration Rate > 60, Glucose Level 109H, Calcium Level 10.7H, Phosphorus Level 4.1, Vancomycin Level Trough 6.6 Height (Feet): 5 Height (Inches): 7.00 Weight (Pounds): 114 Objective General Appearance: no apparent distress, alert, cachetic EENT: normal ENT inspection Neck: normal alignment, supple, normal inspection Cardiovascular: normal peripheral pulses, normal rate, regular rhythm, no gallop/murmur, no JVD Respiratory/Chest: chest wall non-tender, lungs clear, no respiratory distress , no accessory muscle use Abdomen: non tender, soft, no organomegaly, no mass Extremities: other - leg paralysis Edema: no edema noted Arm (L), no edema noted Arm (R), no edema noted Leg (L), no edema noted Leg (R), no edema noted Pedal (L), no edema noted Pedal (R), no edema noted Generalized Neurologic: special class 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
[2019-11-11] VITALS: BP 118/67
[2019-11-11] MEDS: HYDROcodone/Acetamin 5/325 tab ORAL PRN ×3 (00:08→14:08)
[2019-11-11] MEDS: Vancomycin 1gm in D5W 275ml IVPB SCH (02:16)
[2019-11-11] MEDS ORDERED: Vancomycin 1gm in D5W 275ml IVPB SCH (03:00)
[2019-11-11 04:00] VITALS: BP 100/50
[2019-11-11] MEDS: Midodrine 10mg tab ORAL SCH ×3 (06:20→14:09)
[2019-11-11 08:00] VITALS: BP 103/62
[2019-11-11] MEDS: Heparin 5000 units/ml inj SUBQ SCH ×2 (09:16→21:32)
[2019-11-11] MEDS: Fluconazole 100mg tab ORAL SCH (09:17)
[2019-11-11] MEDS: Docusate 100mg cap ORAL SCH ×2 (09:17→21:30)
[2019-11-11] MEDS: Sodium Chloride 1gm Tab ORAL SCH ×3 (09:17→14:09)
[2019-11-11] MEDS: Ascorbic Acid 500mg tab ORAL SCH (09:17)
[2019-11-11] MEDS: Zinc Sulfate 220mg ORAL SCH (09:17)
--- NOTE | 2019-11-11 09:36 | Surgery Progress Note ---
Surgery Progress Note Subjective Symptoms: improved, tolerating diet, passing flatus Objective Last 24 Hour Vital Signs Date Time Temp Pulse Resp B/P (MAP) Pulse Ox O2 Delivery O2 Flow Rate FiO2 11/11/19 08:00 98.2 75 18 103/62 (76) 99 11/11/19 07:02 98.1 11/11/19 04:00 98.1 75 20 100/50 (67) 96 11/11/19 00:00 99.2 73 20 118/67 (84) 98 11/10/19 21:00 Room Air 11/10/19 20:00 97.6 63 20 97/52 (67) 96 11/10/19 16:19 98.1 11/10/19 16:00 101.7 87 18 102/53 (69) 96 11/10/19 12:00 98.2 72 18 102/62 (75) 99 I&O Intake and Output 11/10/19 11/11/19 19:00 07:00 Intake Total 720 ml 600 ml Output Total 900 ml 1000 ml Balance -180 ml -400 ml Intake Oral 720 ml 600 ml Output Urine Total 900 ml 1000 ml # Bowel Movements 1 1 Dressing: dry Wound: clean Cardiovascular: RSR Respiratory: decreased breath sounds Abdomen: soft, non-tender, present bowel sounds Extremities: no tenderness, no cyanosis Laboratory Tests Test 11/10/19 10:25 White Blood Count 11.7 K/UL (4.8-10.8) H Red Blood Count 3.46 M/UL (4.70-6.10) L Hemoglobin 9.3 G/DL (14.2-18.0) L Hematocrit 29.5 % (42.0-52.0) L Mean Corpuscular Volume 85 FL (80-99) Mean Corpuscular Hemoglobin 27.1 PG (27.0-31.0) Mean Corpuscular Hemoglobin Concent 31.6 G/DL (32.0-36.0) L Red Cell Distribution Width 16.6 % (11.6-14.8) H Platelet Count 605 K/UL (150-450) H Mean Platelet Volume 4.4 FL (6.5-10.1) L Neutrophils (%) (Auto) 71.7 % (45.0-75.0) Lymphocytes (%) (Auto) 16.5 % (20.0-45.0) L Monocytes (%) (Auto) 8.1 % (1.0-10.0) Eosinophils (%) (Auto) 1.7 % (0.0-3.0) Basophils (%) (Auto) 2.0 % (0.0-2.0) Sodium Level 132 MMOL/L (136-145) L Potassium Level 4.0 MMOL/L (3.5-5.1) Chloride Level 95 MMOL/L (98-107) L Carbon Dioxide Level 28 MMOL/L (21-32) Anion Gap 9 mmol/L (5-15) Blood Urea Nitrogen 15 mg/dL (7-18) Creatinine 0.7 MG/DL (0.55-1.30) Estimat Glomerular Filtration Rate > 60 mL/min (>60) Glucose Level 109 MG/DL (74-106) H Calcium Level 10.7 MG/DL (8.5-10.1) H Phosphorus Level 4.1 MG/DL (2.5-4.9) Vancomycin Level Trough 6.6 ug/mL (5.0-12.0) Plan Problems: (1) Abdominal distension Assessment & Plan: abd distention soft non tender ostomy viable and reduced KUB ordered pending results improved comfortable no complaints okay for diet s tolerated d/c planning much improved There is an inferior vena cava filter in place. Bowel gas pattern is unremarkable. Considerable stool is seen in the transverse and distal colon. There is extensive pelvic deformity, with loss of the left femoral head, chronic dislocation of the left femur, and extensive pelvic deformity, particularly on the left. [place] project over the upper pelvis Impression: Possible constipation. 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 Springs Shaped, Full Thickness Sacral Pressure Injury which extends into L ischium. (L)15.4cm x (W)18cm x (D)2.4cm, Undermining clockwise 10-2 by 7.7cm @ 11o'clock. Base of wound is moist,pink with scattered slough at base of wound. Bone is palpable at the Base. No odor or exudate noted. Scattered partial thickness wounds and Serous filled blisters noted to R trochanteric /R Hip areas. Historical scar noted to L groin, L Hip L Buttocks. Bony protrusion noted at L Hip. Full thickness Pressure Injury R Ischium(L)5.4cm x(W)6.9cm x (D)1.8cm, Undermining clockwise 1-4 by 2.7cm @2o'clock, Tunneling@7o'clock 2.9cm. Base of wound is moist pink with scattered slough. Scattered slough noted along borders. NO odor or exudate noted. Stable dry eschar noted to medial R knee 0.7cm x (W)0.4cm. Periwound is erythematous and indurated. No elevation in skin temp noted. L heel has shaved appearance secondary to Hx of Pressure Injuries. Base of heel is pale pink. Bone is palpable. Small area of slough noted within compromised area(L)0.6cm x (W)0.8cm. L Heel Also has shaved appearance with hypertrophic scarring. Base of compromised area is pale pink, Bone is palpable, with scattered loose, dry and scaly skin. Tx.Plan: Cleanse Sacral Wound and R Ischial wounds with Dakin's 0.125% gian. Loosely pack wounds with Hydrogel impregnated Kerlix. Apply Moisture Barrier Paste periwound. Cover with ABD Pads secure with Tegaderm drsg.Daily and prn. Apply Triad Paste to R Hip/R trochanteric areas.Cover with Optifoam drsg. Change every 7 days and prn. Apply Betadine to Medial R Knee. Cover with Optifoam drsg. Change every 7 days and prn. Apply Betadine to R and L Heels. Cover each Heel with Optifoam drsgs. Change every 7 days and prn. Cover Bony Prominences as needed with Optifoam drsgs. Reposition at least every 2 [address] tolerated[address] Pillow between knees. Off-load heels with pillow. APM/SUMI Mattress overlay DAILY ESTIMATED NEEDS: Needs based on Advanced wounds, wt loss/ 40.18kg 35-40 kcals/kg [id number] total kcals 1.5-2.0 g protein/kg 60-80 g total protein 25-35ml/kcal mL/kg 4924-0152 total fluid mLs NUTRITION DIAGNOSIS: Increased kcal/prot/micronutrients needs R/T wound healing and underweight status as evidenced by pt admitted w/ multiple advanced wounds, refer to WC eval, pt now w/ further 3% unfavorable wt loss, currently BMI underweight per guidelines, @62% of [place] Body Weight. 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
--- NOTE | 2019-11-11 09:38 | Diagnostic Imaging Report ---
EXAM: XR Abdomen, 2 Views CLINICAL HISTORY: F/U TECHNIQUE: Frontal view of the abdomen/pelvis with upright view of the abdomen. COMPARISON: Abdominal radiograph October 25, 2019 FINDINGS/IMPRESSION: Nonobstructed bowel gas pattern. Moderate fecal retention of the ascending colon and sigmoid colon. The degree of stool burden has increased from October 25, 2019. IVC filter, incidentally noted. Partial subluxation of the right hip. Osteotomy of the proximal left femur with deformity of the bilateral pubic rami and left acetabulum, unchanged.
[2019-11-11] MEDS: Desmopressin Nasal 5ml NASAL SCH ×2 (09:49→18:00)
[2019-11-11] MEDS: Dakin's 0.125% Soln (Quarter Strength) 16oz TOPIC SCH (09:50)
--- NOTE | 2019-11-11 10:14 | Pulmonology Progress Note ---
Subjective ROS Limited/Unobtainable: No Interval Events: Looking better, no new complaints Constitutional: Reports: fatigue; Denies: fever HEENT: Repors: no symptoms Respiratory: Reports: no symptoms Cardiovascular: Reports: no symptoms Gastrointestinal/Abdominal: Denies: nausea, vomiting, diarrhea Genitourinary: Reports: no symptoms Psychiatric: Reports: other - NA Skin: Reports: other - wounds covered ; Denies: rash Musculoskeletal: Denies: pain Allergies: Coded Allergies: No Known Allergies (Unverified , 08/15/19) All Systems: reviewed and negative except above Objective Last 24 Hour Vital Signs Date Time Temp Pulse Resp B/P (MAP) Pulse Ox O2 Delivery O2 Flow Rate FiO2 11/11/19 08:00 98.2 75 18 103/62 (76) 99 11/11/19 07:02 98.1 11/11/19 04:00 98.1 75 20 100/50 (67) 96 11/11/19 00:00 99.2 73 20 118/67 (84) 98 11/10/19 21:00 Room Air 11/10/19 20:00 97.6 63 20 97/52 (67) 96 11/10/19 16:19 98.1 11/10/19 16:00 101.7 87 18 102/53 (69) 96 11/10/19 12:00 98.2 72 18 102/62 (75) 99 Intake and Output 11/10/19 11/11/19 19:00 07:00 Intake Total 720 ml 600 ml Output Total 900 ml 1000 ml Balance -180 ml -400 ml Intake Oral 720 ml 600 ml Output Urine Total 900 ml 1000 ml # Bowel Movements 1 1 General Appearance: no acute distress HEENT: normocephalic Respiratory: chest wall non-tender, lungs clear Cardiovascular: normal peripheral pulses, regular rhythm Abdomen: normal bowel sounds Extremities: no cyanosis Laboratory Tests 11/10/19 10:25: White Blood Count 11.7H, Red Blood Count 3.46L, Hemoglobin 9.3L, Hematocrit 29.5L, Mean Corpuscular Volume 85, Mean Corpuscular Hemoglobin 27.1, Mean Corpuscular Hemoglobin Concent 31.6L, Red Cell Distribution Width 16.6H, Platelet Count 605H, Mean Platelet Volume 4.4L, Neutrophils (%) (Auto) 71.7, Lymphocytes (%) (Auto) 16.5L, Monocytes (%) (Auto) 8.1, Eosinophils (%) (Auto) 1.7, Basophils (%) (Auto) 2.0, Sodium Level 132L, Potassium Level 4.0, Chloride Level 95L, Carbon Dioxide Level 28, Anion Gap 9, Blood Urea Nitrogen 15, Creatinine 0.7, Estimat Glomerular Filtration Rate > 60, Glucose Level 109H, Calcium Level 10.7H, Phosphorus Level 4.1, Vancomycin Level Trough 6.6 Current Medications Medications (Trade) Dose Ordered Sig/Mya Route PRN Reason Start Time Stop Time Status Last Admin Dose Admin Acetaminophen (Tylenol) 650 mg Q4H PRN ORAL Mild Pain (Pain Scale 1-3) 11/05/19 14:00 11/30/19 13:59 11/08/19 08:39 Acetaminophen (Tylenol) 650 mg Q4H PRN ORAL Temp >100.5 11/05/19 16:00 12/05/19 15:59 11/10/19 15:49 Acetaminophen/ Hydrocodone Bitart ([place] 5/325) 2 tab Q4H PRN ORAL Severe Pain (Pain Scale 7-10) 11/08/19 15:45 11/15/19 15:44 11/11/19 06:32 Ascorbic Acid (Vitamin C) 500 mg DAILY ORAL 11/06/19 09:00 11/23/19 08:59 11/11/19 09:17 Baclofen (Lioresal) 10 mg THREE TIMES A DAY ORAL 11/05/19 18:00 11/22/19 17:59 11/11/19 09:17 Desmopressin Acetate (Ddavp) 1 spray BID NASAL 11/09/19 18:00 02/07/20 17:59 11/11/19 09:49 Dextrose (Dextrose 50%) 25 ml Q30M PRN IV Hypoglycemia 11/05/19 13:30 01/21/20 17:29 Dextrose (Dextrose 50%) 50 ml Q30M PRN IV Hypoglycemia 11/05/19 13:30 01/21/20 17:29 Diphenhydramine HCl (Benadryl) 25 mg Q6H PRN ORAL Itching/Pruritis 11/05/19 14:00 11/22/19 07:54 Docusate Sodium (Colace) 100 mg EVERY 12 HOURS ORAL 11/05/19 21:00 11/22/19 20:59 11/11/19 09:17 Famotidine (Pepcid) 20 mg DAILY ORAL 11/06/19 09:00 01/28/20 09:29 11/11/19 09:17 Ferrous Sulfate (Feosol) 325 mg DAILY ORAL 11/06/19 09:00 01/22/20 08:59 11/11/19 09:17 Fluconazole (Diflucan) 400 mg DAILY ORAL 11/10/19 17:00 11/17/19 16:59 11/11/19 09:17 Gabapentin (Neurontin) 400 mg Q8HR ORAL 11/05/19 14:00 12/03/19 21:59 11/11/19 06:20 Heparin Sodium (Porcine) (Heparin 5000 units/ml) 5,000 units EVERY 12 HOURS SUBQ 11/05/19 21:00 12/08/19 08:59 11/11/19 09:16 Meropenem 1 gm/ Sodium Chloride 100 ml @ 200 mls/hr Q8HR IVPB 11/08/19 22:00 11/13/19 21:59 11/11/19 06:21 Midodrine (Pro-Amatine) 10 mg EVERY 8 HOURS ORAL 11/05/19 14:00 01/21/20 17:59 11/11/19 06:20 Ondansetron HCl (Zofran) 4 mg Q6H PRN IVP Nausea & Vomiting 11/05/19 14:00 11/22/19 07:57 Sodium Hypochlorite (Dakin's Quarter Strength) 1 applic DAILY TOPIC 11/06/19 09:00 11/24/19 08:59 11/11/19 09:50 Sodium Chloride 1,000 ml @ 75 mls/hr [id number] IV 11/09/19 10:00 12/09/19 09:59 11/11/19 02:16 Sodium Chloride (NaCl) 1 gm THREE TIMES A DAY ORAL 11/09/19 13:00 12/09/19 12:59 11/11/19 09:17 Vancomycin HCl (Vanco pharmacy to dose) 1 ea DAILY PRN MISC Per rx protocol 11/06/19 09:00 11/28/19 16:14 Vancomycin HCl 1 gm/Sodium Chloride 275 ml @ 183.708 mls/hr Q24H IVPB 11/11/19 03:00 11/16/19 02:59 11/11/19 02:16 Zinc Sulfate (Zinc Sulfate) 220 mg DAILY ORAL 11/06/19 09:00 01/22/20 08:59 11/11/19 09:17 Assessment/Plan Assessment/Plan IMPRESSION: 1. Septic shock. resolved 2. Complicated UTI with history of previous ESBL infection. 3. Paraplegia. 4. Sacral decubitus. 5. senior care resident. DISCUSSION: DVT and GI prophylaxes. ID consult and follow-up noted. I will follow carefully. Continue Oxygen, doing well on room air at this time. Gregg Curtis M.D. Gregg Curtis MD Nov 11, 2019 10:14
[2019-11-11 12:00] VITALS: BP 90/53
--- NOTE | 2019-11-11 13:12 | General Progress Note ---
Assessment/Plan Status: stable Assessment/Plan: 59 year old man who presents from LVT with weakness, encephalopathy, concern for septic shock, possible from UTI vs infected sacral pressure ulcer #Septic shock- improving #Proteus UTI #Acute metabolic encephalopathy -improving #Paraplegia #Sacral pressure ulcer, present on admit #Persistent fevers -Off vasopressors -off amikacin, -ZOsyn 11/06/19 - 11/07. -abx changed to vancomycin, diflucan and meropenem, 11/07 - x 4 more days -Per surgery, sacral pressure ulcer does not appear to be infected -Local wound care and offloading -Dispo planning: - Pt medically cleared for DC, pending bed at [facility], likely wednesday #Sinus Bradycardia - resolved -continue telemetry -EP following #Hyponatremia -improving on salt tabs #Polyuria #Hypokalemia -improving -Replete when necessary -Desmopressin 2IV daily -changed to intranasal -Salt tabs 1gTID -monitor UOP -decreasing #Anemia, acute on chronic -2 units RBC 10/28 -Hematology following Full Code I spent 35 minutes on this patient today , and 20 mins was dedicated to counseling and care coordination. Discussed with all consultants, Charge nurse and RNs. Subjective Date patient seen: Nov 11, 2019 Allergies: Coded Allergies: No Known Allergies (Unverified , 08/15/19) Subjective Afebrile, Urine output decreasing, NA improving. Pt sitting up in bed, has no complaints. saturating well on RA Dispo: Pt medically cleared for discharge, pending bed at [facility] Objective Last 24 Hour Vital Signs Date Time Temp Pulse Resp B/P (MAP) Pulse Ox O2 Delivery O2 Flow Rate FiO2 11/11/19 12:00 98.1 71 18 90/53 (65) 100 11/11/19 09:00 Room Air 11/11/19 08:00 98.2 75 18 103/62 (76) 99 11/11/19 07:02 98.1 11/11/19 04:00 98.1 75 20 100/50 (67) 96 11/11/19 00:00 99.2 73 20 118/67 (84) 98 11/10/19 21:00 Room Air 11/10/19 20:00 97.6 63 20 97/52 (67) 96 11/10/19 16:19 98.1 11/10/19 16:00 101.7 87 18 102/53 (69) 96 Intake and Output 11/10/19 11/11/19 19:00 07:00 Intake Total 720 ml 600 ml Output Total 900 ml 1000 ml Balance -180 ml -400 ml Intake Oral 720 ml 600 ml Output Urine Total 900 ml 1000 ml # Bowel Movements 1 1 Height (Feet): 5 Height (Inches): 7.00 Weight (Pounds): 114 Objective General Appearance: no apparent distress, alert, cachetic EENT: normal ENT inspection Neck: normal alignment, supple, normal inspection Cardiovascular: normal peripheral pulses, normal rate, regular rhythm, no gallop/murmur, no JVD Respiratory/Chest: chest wall non-tender, lungs clear, no respiratory distress , no accessory muscle use Abdomen: non tender, soft, no organomegaly, no mass Extremities: other - leg paralysis Edema: no edema noted Arm (L), no edema noted Arm (R), no edema noted Leg (L), no edema noted Leg (R), no edema noted Pedal (L), no edema noted Pedal (R), no edema noted 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
--- NOTE | 2019-11-11 14:46 | Cardiac Electrophysiology PN ---
Assessment/Plan Assessment/Plan 1. S/P Septic shock. Resolved. On Midodrine, antibiotic, antifungal and iv fluid 2. Bradycardia. Resolved. 3. Paraplegia. 4. Urinary tract infection, 5. Decubitus ulcers with sacral decubitus. 6. S/P Ileostomy/ 7. Polyuria, DI. On NS, Salt tablets DW RN Subjective Subjective Alert in NAD. On iv.RN at bedside Objective Last 24 Hour Vital Signs Date Time Temp Pulse Resp B/P (MAP) Pulse Ox O2 Delivery O2 Flow Rate FiO2 11/11/19 12:00 98.1 71 18 90/53 (65) 100 11/11/19 09:00 Room Air 11/11/19 08:00 98.2 75 18 103/62 (76) 99 11/11/19 07:02 98.1 11/11/19 04:00 98.1 75 20 100/50 (67) 96 11/11/19 00:00 99.2 73 20 118/67 (84) 98 11/10/19 21:00 Room Air 11/10/19 20:00 97.6 63 20 97/52 (67) 96 11/10/19 16:19 98.1 11/10/19 16:00 101.7 87 18 102/53 (69) 96 Intake and Output 11/10/19 11/11/19 19:00 07:00 Intake Total 720 ml 600 ml Output Total 900 ml 1000 ml Balance -180 ml -400 ml Intake Oral 720 ml 600 ml Output Urine Total 900 ml 1000 ml # Bowel Movements 1 1 Objective HEAD AND NECK: No JVD. Right IJ central line. LUNGS: Coarse rhonchi. CARDIOVASCULAR: Regular S1 and S2 with no gallop. ABDOMEN: Soft.S/P Ileostomy EXTREMITIES: No pitting edema, however, has pressure ulcers. Carloz Estes MD Nov 11, 2019 14:46
[2019-11-11] MEDS ORDERED: NS 275ml ONE (15:23)
[2019-11-11 16:00] VITALS: BP 113/71
[2019-11-11 20:00] VITALS: BP 94/57
[2019-11-12] VITALS: BP 118/68
[2019-11-12] MEDS: Vancomycin 1gm in D5W 275ml IVPB SCH (02:12)
[2019-11-12] MEDS: HYDROcodone/Acetamin 5/325 tab ORAL PRN ×3 (02:35→16:43)
[2019-11-12 04:00] VITALS: BP 107/54
[2019-11-12] MEDS: Midodrine 10mg tab ORAL SCH ×3 (05:15→21:01)
[2019-11-12 07:36] LABS: BASOPHILS % (AUTO) 1.3 % (0.0-2.0); EOSINOPHILS % (AUTO) 1.8 % (0.0-3.0); HEMATOCRIT 27.8 % (42.0-52.0); HEMOGLOBIN 8.8 G/DL (14.2-18.0); MEAN CORPUSCULAR VOLUME 86 FL (80-99); MONOCYTES % (AUTO) 7.2 % (1.0-10.0); NEUTROPHILS % (AUTO) 71.7 % (45.0-75.0); PLATELET COUNT 547 K/UL (150-450); RED BLOOD COUNT 3.23 M/UL (4.70-6.10); RED CELL DISTRIBUTION WIDTH 16.2 % (11.6-14.8); WHITE BLOOD COUNT 13.1 K/UL (4.8-10.8)
--- NOTE | 2019-11-12 07:55 | Hematology/Onc Progress Note ---
Assessment/Plan Assessment/Plan Assessment/recs # Anemia rule out gi bleed, as well as iron deficiency --> hgb 8.2-->7.2-->7.1->6.9-->8.6-->8.3-->9.3-->8.3-->9.3 --> anemia panel ordered--> cw acd --> occult blood pending --> gi eval prn --> transfuse as needed --> transfuse 2 units 10/27 --> po iron to continue # Coagulopathy with elev ptt/inr --> vitk and ffp as needed --> no bleeding noted at this time # Thrombocytosis likely reactive process --> plt 398-->608-->605 --> abx as needed # Sepsis due to uti, with Hypotension likely due to septic shock. Was diuresing heavily at 300 mL an hour. --> Continue on midodrine and dopamine. --> ABX vancomycin and meropenem and amikacin-->christel/vanc/difluc --> before requires pressors --> as per cards # Bradycardia. --> per cards # Paraplegia. # Decubitus ulcers with sacral decubitus. # Dvt heparin sq Appreciate consultation and chandrakant RN Subjective HEENT: Denies: no symptoms, eye pain, blurred vision, tearing, double vision, ear pain, ear discharge, nose pain, nose congestion, throat pain, throat swelling, mouth pain, mouth swelling, other Cardiovascular: Denies: no symptoms, chest pain, edema, irregular heart rate, lightheadedness, palpitations, syncope, other Respiratory: Denies: no symptoms, cough, shortness of breath, SOB with excertion, SOB at rest, sputum, wheezing, other Gastrointestinal/Abdominal: Denies: no symptoms, abdomen distended, abdominal pain, black stools, tarry stools, blood in stool, constipated, diarrhea, difficulty swallowing, nausea, poor appetite, poor fluid intake, rectal bleeding , vomiting, other Genitourinary: Denies: no symptoms, burning, discharge, frequency, flank pain, hematuria, incontinence, pain, urgency, other Neurologic/Psychiatric: Denies: no symptoms, anxiety, depressed, emotional problems, headache, numbness, paresthesia, pre-existing deficit, seizure, tingling, tremors, weakness, other Endocrine: Denies: no symptoms, excessive sweating, flushing, intolerance to cold, intolerance to heat, increased hunger, increased thirst, increased urine, unexplained weight gain, unexplained weight loss, other Allergies: Coded Allergies: No Known Allergies (Unverified , 08/15/19) Subjective 10/27 labs again refused this am, yesterday was low, chandrakant rn in icu 10/28 remains in icu, for 2units prbc this am, chandrakant rn, no other events 10/29 s/p prbc, tolerated it well, no bleeding, on 1mcg levo, in icu 10/30 on abx, on levo and overnight no other events, 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\ 10/31 wounds improved, labs noted, no bleeding, hgb lower, refusing care/wound care 11/01 labs noted, no bleeding, no hematochezia, no hemoptysis, cbc ordered 11/02 meds reviewed, labs noted, no bleeding, chandrakant rn, no major changes, hgb 8.3 11/04 labs have been noted, no bleeding, meds reviewed, no hemolysis 11/05 functional colostomy llq, no bleeding, cbc is pending for am 11/06 labs have been refused, hgb 8.3, no bleeding, wbc is higher in am 11/07 labs have initially been refused, no bleeding in am, wbc 13, on abx 11/08 labs reviewed, no bleeding, chandrakant [place], cbc is pending for am 11/09 is on vanc/difl/christel, no other changes, cbc and bmp are noted 11/11 has been asymptomatic, eating breakfast, hgb 9.3, on abx Objective Objective Current Medications Medications (Trade) Dose Ordered Sig/Mya Route PRN Reason Start Time Stop Time Status Last Admin Dose Admin Acetaminophen (Tylenol) 650 mg Q4H PRN ORAL Mild Pain (Pain Scale 1-3) 11/05/19 14:00 11/30/19 13:59 11/08/19 08:39 Acetaminophen (Tylenol) 650 mg Q4H PRN ORAL Temp >100.5 11/05/19 16:00 12/05/19 15:59 11/11/19 16:39 Acetaminophen/ Hydrocodone Bitart ([place] 5/325) 2 tab Q4H PRN ORAL Severe Pain (Pain Scale 7-10) 11/08/19 15:45 11/15/19 15:44 11/12/19 02:35 Ascorbic Acid (Vitamin C) 500 mg DAILY ORAL 11/06/19 09:00 11/23/19 08:59 11/11/19 09:17 Baclofen (Lioresal) 10 mg THREE TIMES A DAY ORAL 11/05/19 18:00 11/22/19 17:59 11/11/19 14:09 Desmopressin Acetate (Ddavp) 1 spray BID NASAL 11/09/19 18:00 02/07/20 17:59 11/11/19 09:49 Dextrose (Dextrose 50%) 25 ml Q30M PRN IV Hypoglycemia 11/05/19 13:30 01/21/20 17:29 Dextrose (Dextrose 50%) 50 ml Q30M PRN IV Hypoglycemia 11/05/19 13:30 01/21/20 17:29 Diphenhydramine HCl (Benadryl) 25 mg Q6H PRN ORAL Itching/Pruritis 11/05/19 14:00 11/22/19 07:54 Docusate Sodium (Colace) 100 mg EVERY 12 HOURS ORAL 11/05/19 21:00 11/22/19 20:59 11/11/19 21:30 Famotidine (Pepcid) 20 mg DAILY ORAL 11/06/19 09:00 01/28/20 09:29 11/11/19 09:17 Ferrous Sulfate (Feosol) 325 mg DAILY ORAL 11/06/19 09:00 01/22/20 08:59 11/11/19 09:17 Fluconazole (Diflucan) 400 mg DAILY ORAL 11/10/19 17:00 11/17/19 16:59 11/11/19 09:17 Gabapentin (Neurontin) 400 mg Q8HR ORAL 11/05/19 14:00 12/03/19 21:59 11/12/19 05:15 Heparin Sodium (Porcine) (Heparin 5000 units/ml) 5,000 units EVERY 12 HOURS SUBQ 11/05/19 21:00 12/08/19 08:59 11/11/19 21:32 Meropenem 1 gm/ Sodium Chloride 100 ml @ 200 mls/hr Q8HR IVPB 11/08/19 22:00 11/13/19 21:59 11/12/19 05:15 Midodrine (Pro-Amatine) 10 mg EVERY 8 HOURS ORAL 11/05/19 14:00 01/21/20 17:59 11/12/19 05:15 Ondansetron HCl (Zofran) 4 mg Q6H PRN IVP Nausea & Vomiting 11/05/19 14:00 11/22/19 07:57 Sodium Hypochlorite (Dakin's Quarter Strength) 1 applic DAILY TOPIC 11/06/19 09:00 11/24/19 08:59 11/11/19 09:50 Sodium Chloride 1,000 ml @ 75 mls/hr [id number] IV 11/09/19 10:00 12/09/19 09:59 11/11/19 02:16 Sodium Chloride (NaCl) 1 gm THREE TIMES A DAY ORAL 11/09/19 13:00 12/09/19 12:59 11/11/19 14:09 Vancomycin HCl (Vanco pharmacy to dose) 1 ea DAILY PRN MISC Per rx protocol 11/06/19 09:00 11/28/19 16:14 Vancomycin HCl 1 gm/Sodium Chloride 275 ml @ 183.708 mls/hr Q24H IVPB 11/11/19 03:00 11/16/19 02:59 11/12/19 02:12 Zinc Sulfate (Zinc Sulfate) 220 mg DAILY ORAL 11/06/19 09:00 01/22/20 08:59 11/11/19 09:17 Last 24 Hour Vital Signs Date Time Temp Pulse Resp B/P (MAP) Pulse Ox O2 Delivery O2 Flow Rate FiO2 11/12/19 04:00 99.1 79 20 107/54 (71) 97 11/12/19 00:00 98.0 89 21 118/68 (85) 96 11/11/19 20:34 Room Air 11/11/19 20:00 98.3 67 20 94/57 (69) 97 11/11/19 17:15 98.9 11/11/19 17:09 98.9 11/11/19 16:00 101.8 98 18 113/71 (85) 96 11/11/19 12:00 98.1 71 18 90/53 (65) 100 11/11/19 09:00 Room Air 11/11/19 08:00 98.2 75 18 103/62 (76) 99 11/11/19 07:02 98.1 11/11/19 04:00 98.1 75 20 100/50 (67) 96 11/11/19 00:00 99.2 73 20 118/67 (84) 98 11/10/19 21:00 Room Air 11/10/19 20:00 97.6 63 20 97/52 (67) 96 11/10/19 16:00 101.7 87 18 102/53 (69) 96 11/10/19 12:00 98.2 72 18 102/62 (75) 99 11/10/19 09:00 Room Air 11/10/19 08:00 97.8 77 18 99/57 (71) 99 Intake and Output 11/11/19 11/12/19 19:00 07:00 Intake Total 480 ml Output Total 1400 ml 800 ml Balance -920 ml -800 ml Intake Oral 480 ml Output Urine Total 1400 ml 800 ml # Voids 1 # Bowel Movements 1 Labs Test 11/10/19 10:25 11/12/19 07:05 White Blood Count 11.7 K/UL (4.8-10.8) Red Blood Count 3.46 M/UL (4.70-6.10) Hemoglobin 9.3 G/DL (14.2-18.0) Hematocrit 29.5 % (42.0-52.0) Mean Corpuscular Volume 85 FL (80-99) Mean Corpuscular Hemoglobin 27.1 PG (27.0-31.0) Mean Corpuscular Hemoglobin Concent 31.6 G/DL (32.0-36.0) Red Cell Distribution Width 16.6 % (11.6-14.8) Platelet Count 605 K/UL (150-450) Mean Platelet Volume 4.4 FL (6.5-10.1) Neutrophils (%) (Auto) 71.7 % (45.0-75.0) Lymphocytes (%) (Auto) 16.5 % (20.0-45.0) Monocytes (%) (Auto) 8.1 % (1.0-10.0) Eosinophils (%) (Auto) 1.7 % (0.0-3.0) Basophils (%) (Auto) 2.0 % (0.0-2.0) Sodium Level 132 MMOL/L (136-145) Potassium Level 4.0 MMOL/L (3.5-5.1) Chloride Level 95 MMOL/L (98-107) Carbon Dioxide Level 28 MMOL/L (21-32) Anion Gap 9 mmol/L (5-15) Blood Urea Nitrogen 15 mg/dL (7-18) Creatinine 0.7 MG/DL (0.55-1.30) Estimat Glomerular Filtration Rate > 60 mL/min (>60) Glucose Level 109 MG/DL (74-106) Calcium Level 10.7 MG/DL (8.5-10.1) Phosphorus Level 4.1 MG/DL (2.5-4.9) Vancomycin Level Trough 6.6 ug/mL (5.0-12.0) Height (Feet): 5 Height (Inches): 7.00 Weight (Pounds): 114 Objective Physical Exam General Appearance: lethargic Lines, tubes and drains: peripheral, central line HEENT: normocephalic Neck: non-tender, normal alignment Respiratory/Chest: lungs clear Cardiovascular/Chest: normal peripheral pulses, normal rate, regular rhythm Abdomen: normal bowel sounds, non tender ++ llq colostomy Martínez Capps MD Nov 12, 2019 07:55
[2019-11-12 08:00] VITALS: BP 110/60
[2019-11-12] MEDS: Docusate 100mg cap ORAL SCH ×2 (09:26→21:00)
[2019-11-12] MEDS: Heparin 5000 units/ml inj SUBQ SCH ×2 (09:26→21:02)
[2019-11-12] MEDS: Zinc Sulfate 220mg ORAL SCH (09:27)
[2019-11-12] MEDS: Fluconazole 100mg tab ORAL SCH (09:27)
[2019-11-12] MEDS: Sodium Chloride 1gm Tab ORAL SCH ×3 (09:27→18:04)
[2019-11-12] MEDS: Ascorbic Acid 500mg tab ORAL SCH (09:27)
[2019-11-12] MEDS: Desmopressin Nasal 5ml NASAL SCH ×2 (09:36→18:10)
[2019-11-12] MEDS: Dakin's 0.125% Soln (Quarter Strength) 16oz TOPIC SCH (09:37)
--- NOTE | 2019-11-12 09:48 | General Progress Note ---
Assessment/Plan Status: stable Assessment/Plan: 59 year old man who presents from LVT with weakness, encephalopathy, concern for septic shock, possible from UTI vs infected sacral pressure ulcer #Septic shock- improving #Proteus UTI #Acute metabolic encephalopathy -improving #Paraplegia #Sacral pressure ulcer, present on admit #Persistent fevers - resolved -Off vasopressors -off amikacin, -ZOsyn 11/06/19 - 11/07. -abx changed to vancomycin, diflucan and meropenem, 11/07 - x 3 more days -Per surgery, sacral pressure ulcer does not appear to be infected -Local wound care and offloading -Leukocytosis trending up but afebrile and HDS -Dispo planning: - Pt medically cleared for DC, pending bed at [facility], likely wednesday #Sinus Bradycardia - resolved -continue telemetry -EP following #Hyponatremia -improving on salt tabs #Polyuria - improving #Hypokalemia -improving -Replete when necessary -Desmopressin 2IV daily -changed to intranasal - will cont current dose on DC -Salt tabs 1gTID -monitor UOP #Anemia, acute on chronic -2 units RBC 10/28 -Hematology following Full Code I spent 35 minutes on this patient today , and 20 mins was dedicated to counseling and care coordination. Discussed with all consultants, Charge nurse and RNs. Subjective Date patient seen: Nov 12, 2019 ROS Limited/Unobtainable: No Allergies: Coded Allergies: No Known Allergies (Unverified , 08/15/19) Subjective Afebrile, Urine output improved with DDAVP, NA improving. Pt sitting up in bed, has no complaints. saturating well on RA Dispo: Pt medically cleared for discharge, pending bed at [facility] Objective Last 24 Hour Vital Signs Date Time Temp Pulse Resp B/P (MAP) Pulse Ox O2 Delivery O2 Flow Rate FiO2 11/12/19 08:00 99.0 83 19 110/60 (77) 97 11/12/19 04:00 99.1 79 20 107/54 (71) 97 11/12/19 00:00 98.0 89 21 118/68 (85) 96 11/11/19 20:34 Room Air 11/11/19 20:00 98.3 67 20 94/57 (69) 97 11/11/19 17:15 98.9 8/29/20 17:09 98.9 11/11/19 16:00 101.8 98 18 113/71 (85) 96 11/11/19 12:00 98.1 71 18 90/53 (65) 100 Intake and Output 11/11/19 11/12/19 19:00 07:00 Intake Total 480 ml Output Total 1400 ml 800 ml Balance -920 ml -800 ml Intake Oral 480 ml Output Urine Total 1400 ml 800 ml # Voids 1 # Bowel Movements 1 Laboratory Tests 11/12/19 07:05: White Blood Count 13.1H, Red Blood Count 3.23L, Hemoglobin 8.8L, Hematocrit 27.8L, Mean Corpuscular Volume 86, Mean Corpuscular Hemoglobin 27.2, Mean Corpuscular Hemoglobin Concent 31.6L, Red Cell Distribution Width 16.2H, Platelet Count 547H, Mean Platelet Volume 4.8L, Neutrophils (%) (Auto) 71.7, Lymphocytes (%) (Auto) 18.0L, Monocytes (%) (Auto) 7.2, Eosinophils (%) (Auto) 1.8, Basophils (%) (Auto) 1.3 Height (Feet): 5 Height (Inches): 7.00 Weight (Pounds): 114 Objective General Appearance: no apparent distress, alert, cachetic EENT: normal ENT inspection Neck: normal alignment, supple, normal inspection Cardiovascular: normal peripheral pulses, normal rate, regular rhythm, no gallop/murmur, no JVD Respiratory/Chest: chest wall non-tender, lungs clear, no respiratory distress , no accessory muscle use Abdomen: non tender, soft, no organomegaly, no mass Extremities: other - leg paralysis Edema: no edema noted Arm (L), no edema noted Arm (R), no edema noted Leg (L), no edema noted Leg (R), no edema noted Pedal (L), no edema noted Pedal (R), no edema noted 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
--- NOTE | 2019-11-12 10:57 | Pulmonology Progress Note ---
Subjective ROS Limited/Unobtainable: No Interval Events: Looking better, no new complaints Constitutional: Reports: fatigue; Denies: fever HEENT: Repors: no symptoms Respiratory: Reports: no symptoms Cardiovascular: Reports: no symptoms Gastrointestinal/Abdominal: Denies: nausea, vomiting, diarrhea Genitourinary: Reports: no symptoms Psychiatric: Reports: other - NA Skin: Reports: other - wounds covered ; Denies: rash Musculoskeletal: Denies: pain Allergies: Coded Allergies: No Known Allergies (Unverified , 08/15/19) All Systems: reviewed and negative except above Objective Last 24 Hour Vital Signs Date Time Temp Pulse Resp B/P (MAP) Pulse Ox O2 Delivery O2 Flow Rate FiO2 11/12/19 09:00 Room Air 11/12/19 08:00 99.0 83 19 110/60 (77) 97 11/12/19 04:00 99.1 79 20 107/54 (71) 97 11/12/19 00:00 98.0 89 21 118/68 (85) 96 11/11/19 20:34 Room Air 11/11/19 20:00 98.3 67 20 94/57 (69) 97 11/11/19 17:15 98.9 11/11/19 17:09 98.9 11/11/19 16:00 101.8 98 18 113/71 (85) 96 11/11/19 12:00 98.1 71 18 90/53 (65) 100 Intake and Output 11/11/19 11/12/19 19:00 07:00 Intake Total 480 ml Output Total 1400 ml 800 ml Balance -920 ml -800 ml Intake Oral 480 ml Output Urine Total 1400 ml 800 ml # Voids 1 # Bowel Movements 1 General Appearance: no acute distress HEENT: normocephalic Respiratory: chest wall non-tender, lungs clear Cardiovascular: normal peripheral pulses, regular rhythm Abdomen: normal bowel sounds Extremities: no cyanosis Laboratory Tests 11/12/19 07:05: White Blood Count 13.1H, Red Blood Count 3.23L, Hemoglobin 8.8L, Hematocrit 27.8L, Mean Corpuscular Volume 86, Mean Corpuscular Hemoglobin 27.2, Mean Corpuscular Hemoglobin Concent 31.6L, Red Cell Distribution Width 16.2H, Platelet Count 547H, Mean Platelet Volume 4.8L, Neutrophils (%) (Auto) 71.7, Lymphocytes (%) (Auto) 18.0L, Monocytes (%) (Auto) 7.2, Eosinophils (%) (Auto) 1.8, Basophils (%) (Auto) 1.3 Current Medications Medications (Trade) Dose Ordered Sig/Mya Route PRN Reason Start Time Stop Time Status Last Admin Dose Admin Acetaminophen (Tylenol) 650 mg Q4H PRN ORAL Mild Pain (Pain Scale 1-3) 11/05/19 14:00 11/30/19 13:59 11/08/19 08:39 Acetaminophen (Tylenol) 650 mg Q4H PRN ORAL Temp >100.5 11/05/19 16:00 12/05/19 15:59 11/11/19 16:39 Acetaminophen/ Hydrocodone Bitart ([place] 5/325) 2 tab Q4H PRN ORAL Severe Pain (Pain Scale 7-10) 11/08/19 15:45 11/15/19 15:44 11/12/19 09:34 Ascorbic Acid (Vitamin C) 500 mg DAILY ORAL 11/06/19 09:00 11/23/19 08:59 11/12/19 09:27 Baclofen (Lioresal) 10 mg THREE TIMES A DAY ORAL 11/05/19 18:00 11/22/19 17:59 11/12/19 09:26 Desmopressin Acetate (Ddavp) 1 spray BID NASAL 11/09/19 18:00 02/07/20 17:59 11/12/19 09:36 Dextrose (Dextrose 50%) 25 ml Q30M PRN IV Hypoglycemia 11/05/19 13:30 01/21/20 17:29 Dextrose (Dextrose 50%) 50 ml Q30M PRN IV Hypoglycemia 11/05/19 13:30 01/21/20 17:29 Diphenhydramine HCl (Benadryl) 25 mg Q6H PRN ORAL Itching/Pruritis 11/05/19 14:00 11/22/19 07:54 Docusate Sodium (Colace) 100 mg EVERY 12 HOURS ORAL 11/05/19 21:00 11/22/19 20:59 11/12/19 09:26 Famotidine (Pepcid) 20 mg DAILY ORAL 11/06/19 09:00 01/28/20 09:29 11/12/19 09:27 Ferrous Sulfate (Feosol) 325 mg DAILY ORAL 11/06/19 09:00 01/22/20 08:59 11/12/19 09:27 Fluconazole (Diflucan) 400 mg DAILY ORAL 11/10/19 17:00 11/17/19 16:59 11/12/19 09:27 Gabapentin (Neurontin) 400 mg Q8HR ORAL 11/05/19 14:00 12/03/19 21:59 11/12/19 05:15 Heparin Sodium (Porcine) (Heparin 5000 units/ml) 5,000 units EVERY 12 HOURS SUBQ 11/05/19 21:00 12/08/19 08:59 11/12/19 09:26 Meropenem 1 gm/ Sodium Chloride 100 ml @ 200 mls/hr Q8HR IVPB 11/08/19 22:00 11/13/19 21:59 11/12/19 05:15 Midodrine (Pro-Amatine) 10 mg EVERY 8 HOURS ORAL 11/05/19 14:00 01/21/20 17:59 11/12/19 05:15 Ondansetron HCl (Zofran) 4 mg Q6H PRN IVP Nausea & Vomiting 11/05/19 14:00 11/22/19 07:57 Sodium Hypochlorite (Dakin's Quarter Strength) 1 applic DAILY TOPIC 11/06/19 09:00 11/24/19 08:59 11/12/19 09:37 Sodium Chloride 1,000 ml @ 75 mls/hr [id number] IV 11/09/19 10:00 12/09/19 09:59 11/11/19 02:16 Sodium Chloride (NaCl) 1 gm THREE TIMES A DAY ORAL 11/09/19 13:00 12/09/19 12:59 11/12/19 09:27 Vancomycin HCl (Vanco pharmacy to dose) 1 ea DAILY PRN MISC Per rx protocol 11/06/19 09:00 11/28/19 16:14 Vancomycin HCl 1 gm/Sodium Chloride 275 ml @ 183.708 mls/hr Q24H IVPB 11/11/19 03:00 11/16/19 02:59 11/12/19 02:12 Zinc Sulfate (Zinc Sulfate) 220 mg DAILY ORAL 11/06/19 09:00 01/22/20 08:59 11/12/19 09:27 Assessment/Plan Assessment/Plan IMPRESSION: 1. Septic shock. resolved 2. Complicated UTI with history of previous ESBL infection. 3. Paraplegia. 4. Sacral decubitus. 5. detention resident. DISCUSSION: DVT and GI prophylaxes. ID consult and follow-up noted. I will follow carefully. Continue Oxygen, doing well on room air at this time. Gregg Curtis M.D. Gregg Curtis MD Nov 12, 2019 10:57
[2019-11-12 12:00] VITALS: BP 115/65
--- NOTE | 2019-11-12 13:09 | Surgery Progress Note ---
Surgery Progress Note Subjective Symptoms: improved, tolerating diet, passing flatus, BM Objective Last 24 Hour Vital Signs Date Time Temp Pulse Resp B/P (MAP) Pulse Ox O2 Delivery O2 Flow Rate FiO2 11/12/19 12:00 98.9 81 20 115/65 (82) 95 11/12/19 09:00 Room Air 11/12/19 08:00 99.0 83 19 110/60 (77) 97 11/12/19 04:00 99.1 79 20 107/54 (71) 97 11/12/19 00:00 98.0 89 21 118/68 (85) 96 11/11/19 20:34 Room Air 11/11/19 20:00 98.3 67 20 94/57 (69) 97 11/11/19 17:15 98.9 11/11/19 17:09 98.9 11/11/19 16:00 101.8 98 18 113/71 (85) 96 I&O Intake and Output 11/11/19 11/12/19 19:00 07:00 Intake Total 480 ml Output Total 1400 ml 800 ml Balance -920 ml -800 ml Intake Oral 480 ml Output Urine Total 1400 ml 800 ml # Voids 1 # Bowel Movements 1 Dressing: saturated Cardiovascular: RSR Respiratory: decreased breath sounds Abdomen: soft, non-tender, present bowel sounds Extremities: no edema, no tenderness, no cyanosis Laboratory Tests Test 11/12/19 07:05 White Blood Count 13.1 K/UL (4.8-10.8) H Red Blood Count 3.23 M/UL (4.70-6.10) L Hemoglobin 8.8 G/DL (14.2-18.0) L Hematocrit 27.8 % (42.0-52.0) L Mean Corpuscular Volume 86 FL (80-99) Mean Corpuscular Hemoglobin 27.2 PG (27.0-31.0) Mean Corpuscular Hemoglobin Concent 31.6 G/DL (32.0-36.0) L Red Cell Distribution Width 16.2 % (11.6-14.8) H Platelet Count 547 K/UL (150-450) H Mean Platelet Volume 4.8 FL (6.5-10.1) L Neutrophils (%) (Auto) 71.7 % (45.0-75.0) Lymphocytes (%) (Auto) 18.0 % (20.0-45.0) L Monocytes (%) (Auto) 7.2 % (1.0-10.0) Eosinophils (%) (Auto) 1.8 % (0.0-3.0) Basophils (%) (Auto) 1.3 % (0.0-2.0) Plan Problems: (1) Abdominal distension Assessment & Plan: abd distention soft non tender ostomy viable and reduced KUB ordered pending results improved comfortable no complaints okay for diet s tolerated d/c planning much improved There is an inferior vena cava filter in place. Bowel gas pattern is unremarkable. Considerable stool is seen in the transverse and distal colon. There is extensive pelvic deformity, with loss of the left femoral head, chronic dislocation of the left femur, and extensive pelvic deformity, particularly on the left. [place] project over the upper pelvis Impression: Possible constipation. 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 [place] Shaped, Full Thickness Sacral Pressure Injury which extends into L ischium. (L)15.4cm x (W)18cm x (D)2.4cm, Undermining clockwise 10-2 by 7.7cm @ 11o'clock. Base of wound is moist,pink with scattered slough at base of wound. Bone is palpable at the Base. No odor or exudate noted. Scattered partial thickness wounds and Serous filled blisters noted to R trochanteric /R Hip areas. Historical scar noted to L groin, L Hip L Buttocks. Bony protrusion noted at L Hip. Full thickness Pressure Injury R Ischium(L)5.4cm x(W)6.9cm x (D)1.8cm, Undermining clockwise 1-4 by 2.7cm @2o'clock, Tunneling@7o'clock 2.9cm. Base of wound is moist pink with scattered slough. Scattered slough noted along borders. NO odor or exudate noted. Stable dry eschar noted to medial R knee 0.7cm x (W)0.4cm. Periwound is erythematous and indurated. No elevation in skin temp noted. L heel has shaved appearance secondary to Hx of Pressure Injuries. Base of heel is pale pink. Bone is palpable. Small area of slough noted within compromised area(L)0.6cm x (W)0.8cm. L Heel Also has shaved appearance with hypertrophic scarring. Base of compromised area is pale pink, Bone is palpable, with scattered loose, dry and scaly skin. Tx.Plan: Cleanse Sacral Wound and R Ischial wounds with Dakin's 0.125% gian. Loosely pack wounds with Hydrogel impregnated Kerlix. Apply Moisture Barrier Paste periwound. Cover with ABD Pads secure with Tegaderm drsg.Daily and prn. Apply Triad Paste to R Hip/R trochanteric areas.Cover with Optifoam drsg. Change every 7 days and prn. Apply Betadine to Medial R Knee. Cover with Optifoam drsg. Change every 7 days and prn. Apply Betadine to R and L Heels. Cover each Heel with Optifoam drsgs. Change every 7 days and prn. Cover Bony Prominences as needed with Optifoam drsgs. Reposition at least every 2 hours [address] tolerated[address] Pillow between knees. Off-load heels with pillow. APM/SUMI Mattress overlay DAILY ESTIMATED NEEDS: Needs based on Advanced wounds, wt loss/ 40.18kg 35-40 kcals/kg 5289-3169 total kcals 1.5-2.0 g protein/kg 60-80 g total protein 25-35ml/kcal mL/kg 5074-3516 total fluid mLs NUTRITION DIAGNOSIS: Increased kcal/prot/micronutrients needs R/T wound healing and underweight status as evidenced by pt admitted w/ multiple advanced wounds, refer to WC jair, pt now w/ further 3% unfavorable wt loss, currently BMI underweight per guidelines, @62% of [place] Body Weight. CURRENT DIET: Regular PO DIET RECOMMENDATIONS: REGULAR, texture as tolerated or per HOME HEALTH NURSE LICENSED PRACTICAL + Ensure Enlive TID w/ meals ADDITIONAL RECOMMENDATIONS: * Per SNF: HT=66" WT=88lbs; -> vs current EMR wt =120# -> Recalibrate bed scale for accurate wts * Continue Ensure TID, whole milk TID w/ meals * Monitor for continued improved/good Po intake * Wound healing:add MVI w/ min qdaily Continue w/ ZnSO4, Vit C, and Amari BID * Monitor Na, need for fluid restriction - (132 improved, on nacl) (15) SEAN (acute kidney injury) (16) Ileostomy prolapse Assessment & Plan: currently reduced but abd distended pending films films reviewed improved okay for diet d/c planning Cornelius Salgado Nov 12, 2019 13:09
--- NOTE | 2019-11-12 15:26 | Infectious Diseases Prog Note ---
Assessment/Plan Assessment/Plan ASSESSMENT AND PLAN: 1. sepsis, shock, proteus uti, esbl e.coli uti, possible aspiration pna/hcap vs cap, sacral wound - ? infected, mrsa and vre colonization persistent fevers, leukocytosis, staff development nurse line infection, fungal uti, ? fungemia , new pneumonia on cheat x-ray - vancomycin, diflucan and meropenem x 3 days - chest x-ray improved, fevers persist - ? drug fever - cultures noted - monitor labs and chest x-rays - line removed - monitor fevers - reculture patient for fevers and leukocytosis 2. ICU care. 3. Sacral wound -wound mostly clean, management per surgery 4. Ostomy malfunction - per surgery 5. Hypertension. 6. Paraplegia. 7. Anemia. 8. History of decubitus ulcer, rule out infection. Infectious diseases is following. The patient on antibiotics. 9. Hypertension treatment per primary care team. 10. Continue treatment per primary consultants. 11. No known drug allergies. 12. Social history is negative. 13. Family history is noncontributory. 14. MAR was noted. 15. Case discussed with RN. Subjective Constitutional: Reports: fatigue; Denies: fever HEENT: Denies: congestion Respiratory: Denies: shortness of breath Cardiovascular: Denies: chest pain Gastrointestinal/Abdominal: Denies: nausea, vomiting, diarrhea Genitourinary: Reports: other - + donohue Neurologic: Denies: headache Psychiatric: Denies: depression Skin: Denies: rash Hematologic: Denies: bleeding Musculoskeletal: Denies: pain Allergies: Coded Allergies: No Known Allergies (Unverified , 08/15/19) Objective Last 24 Hour Vital Signs Date Time Temp Pulse Resp B/P (MAP) Pulse Ox O2 Delivery O2 Flow Rate FiO2 11/12/19 12:00 98.9 81 20 115/65 (82) 95 11/12/19 09:00 Room Air 11/12/19 08:00 99.0 83 19 110/60 (77) 97 11/12/19 04:00 99.1 79 20 107/54 (71) 97 11/12/19 00:00 98.0 89 21 118/68 (85) 96 11/11/19 20:34 Room Air 11/11/19 20:00 98.3 67 20 94/57 (69) 97 11/11/19 17:15 98.9 8/29/20 17:09 98.9 11/11/19 16:00 101.8 98 18 113/71 (85) 96 Height (Feet): 5 Height (Inches): 7.00 Weight (Pounds): 114 General Appearance: no acute distress HEENT: normocephalic, atraumatic Respiratory/Chest: crackles/rales, rhonchi - bilaterally Cardiovascular: normal rate, regular rhythm Abdomen: normal bowel sounds, soft, non tender, no organomegaly Genitourinary: other - + donohue - urine slt cloudy Extremities: no cyanosis Skin: no rash Neurologic/Psychiatric: cardiology nurse II-XII grossly normal, alert, responsive Lymphatic: no neck adenopathy Musculoskeletal: no effusion Chest x-ray - 10/25/19 - Procedure: XRAY Chest 1v Indication: Shortness of breath Technique: One view of the chest Comparison: 10/23/2019 Findings: There are bilateral basilar infiltrates, which appear new or increased since prior study. There is some atelectasis at the left lung base as well. Right jugular central venous catheter remains. The heart size is normal. Impression: New/increased bilateral basilar infiltrates, since prior study 2019 Chest x-ray - 10/27/19 - Procedure: XRAY Chest 1v Indication: Shortness of breath Technique: One view of the chest Comparison: 10/25/2019 Findings: There is atelectasis possibly some focal consolidation at the right lung base. Atelectatic changes previously demonstrated at the left lung base have largely cleared. Right jugular central venous catheter remains. The heart size is normal. Impression: Improving left basilar atelectasis. Otherwise little supervisor policy change clerks 2 days findings as noted Chest x-ray - 10/29/19 - FINDINGS: Lungs: Persistent subsegmental atelectasis in bilateral lower lungs, not significant changed compared to the prior exam. No new consolidation is seen. Pleural space: Unremarkable. The costophrenic angles are sharp. No visible pneumothorax. Heart: Unremarkable. No cardiomegaly. Mediastinum: Unremarkable. Bones/joints: Unremarkable. Vasculature: Mild atherosclerotic calcifications are noted within the aortic arch. Tubes, lines and devices: Stable positioning of a right IJ central venous catheter with the tip in the SVC. Telemetry leads overlie the thorax. IMPRESSION: Persistent subsegmental atelectasis in bilateral lower lungs, not significantly changed compared to the prior exam. Chest x-rasy - 11/03/19 - Procedure: XRAY Chest 1v Indication: Cough Technique: One view of the chest Comparison: 10/29/2019 Findings: There are increased atelectatic changes at the lung bases. Interim removal of previously demonstrated central venous catheter. The pleural spaces are clear. The heart size is normal. Impression: Increasing bilateral basilar atelectasis Interim central venous catheter removal. Chest x-ray - 11/07/19 - Procedure: XRAY Chest 1v Indication: Shortness of breath Technique: One view of the chest Comparison: 11/03/2019 Findings: Bilateral basilar atelectatic changes appear similar to the previous exam. There may be some patchy left perihilar and bilateral peripheral consolidation. The heart size is normal. Impression: New or increased faint patchy peripheral and left perihilar consolidative opacities, possibly reflecting multifocal pneumonia, since prior study 03/04/2019 Persistent bilateral basilar atelectatic changes Chest x-ray - 11/09/19 - Procedure: XRAY Chest 1v Indication: Cough Technique: One view of the chest Comparison: 11/07/2019 Findings: There is improved aeration of the lung bases, although some atelectasis persists bilaterally. No new infiltrates. The pleural spaces are clear. The heart size is normal. Impression: Improved aeration with decreased basilar atelectasis Microbiology Date/Time Source Procedure Growth Status 11/04/19 12:20 Blood Blood Culture - Final NO GROWTH AFTER 5 DAYS Complete 11/02/19 13:30 Nasopharynx SARS-CoV-2 RdRp Gene Assay - Final Complete 11/06/19 16:29 Indwelling Cath Urine Culture - Final YEAST Complete 11/03/19 08:00 Catheter Site Catheter Tip Culture - Final Staphylococcus Sp Coag Neg Complete Labs Test 11/10/19 10:25 11/12/19 07:05 White Blood Count 11.7 K/UL (4.8-10.8) 13.1 K/UL (4.8-10.8) Red Blood Count 3.46 M/UL (4.70-6.10) 3.23 M/UL (4.70-6.10) Hemoglobin 9.3 G/DL (14.2-18.0) 8.8 G/DL (14.2-18.0) Hematocrit 29.5 % (42.0-52.0) 27.8 % (42.0-52.0) Mean Corpuscular Volume 85 FL (80-99) 86 FL (80-99) Mean Corpuscular Hemoglobin 27.1 PG (27.0-31.0) 27.2 PG (27.0-31.0) Mean Corpuscular Hemoglobin Concent 31.6 G/DL (32.0-36.0) 31.6 G/DL (32.0-36.0) Red Cell Distribution Width 16.6 % (11.6-14.8) 16.2 % (11.6-14.8) Platelet Count 605 K/UL (150-450) 547 K/UL (150-450) Mean Platelet Volume 4.4 FL (6.5-10.1) 4.8 FL (6.5-10.1) Neutrophils (%) (Auto) 71.7 % (45.0-75.0) 71.7 % (45.0-75.0) Lymphocytes (%) (Auto) 16.5 % (20.0-45.0) 18.0 % (20.0-45.0) Monocytes (%) (Auto) 8.1 % (1.0-10.0) 7.2 % (1.0-10.0) Eosinophils (%) (Auto) 1.7 % (0.0-3.0) 1.8 % (0.0-3.0) Basophils (%) (Auto) 2.0 % (0.0-2.0) 1.3 % (0.0-2.0) Sodium Level 132 MMOL/L (136-145) Potassium Level 4.0 MMOL/L (3.5-5.1) Chloride Level 95 MMOL/L (98-107) Carbon Dioxide Level 28 MMOL/L (21-32) Anion Gap 9 mmol/L (5-15) Blood Urea Nitrogen 15 mg/dL (7-18) Creatinine 0.7 MG/DL (0.55-1.30) Estimat Glomerular Filtration Rate > 60 mL/min (>60) Glucose Level 109 MG/DL (74-106) Calcium Level 10.7 MG/DL (8.5-10.1) Phosphorus Level 4.1 MG/DL (2.5-4.9) Vancomycin Level Trough 6.6 ug/mL (5.0-12.0) Laboratory Tests Test 11/12/19 07:05 White Blood Count 13.1 K/UL (4.8-10.8) H Red Blood Count 3.23 M/UL (4.70-6.10) L Hemoglobin 8.8 G/DL (14.2-18.0) L Hematocrit 27.8 % (42.0-52.0) L Mean Corpuscular Volume 86 FL (80-99) Mean Corpuscular Hemoglobin 27.2 PG (27.0-31.0) Mean Corpuscular Hemoglobin Concent 31.6 G/DL (32.0-36.0) L Red Cell Distribution Width 16.2 % (11.6-14.8) H Platelet Count 547 K/UL (150-450) H Mean Platelet Volume 4.8 FL (6.5-10.1) L Neutrophils (%) (Auto) 71.7 % (45.0-75.0) Lymphocytes (%) (Auto) 18.0 % (20.0-45.0) L Monocytes (%) (Auto) 7.2 % (1.0-10.0) Eosinophils (%) (Auto) 1.8 % (0.0-3.0) Basophils (%) (Auto) 1.3 % (0.0-2.0) Current Medications Medications (Trade) Dose Ordered Sig/Mya Route PRN Reason Start Time Stop Time Status Last Admin Dose Admin Acetaminophen (Tylenol) 650 mg Q4H PRN ORAL Mild Pain (Pain Scale 1-3) 11/05/19 14:00 11/30/19 13:59 11/08/19 08:39 Acetaminophen (Tylenol) 650 mg Q4H PRN ORAL Temp >100.5 11/05/19 16:00 12/05/19 15:59 11/11/19 16:39 Acetaminophen/ Hydrocodone Bitart ([place] 5/325) 2 tab Q4H PRN ORAL Severe Pain (Pain Scale 7-10) 11/08/19 15:45 11/15/19 15:44 11/12/19 09:34 Ascorbic Acid (Vitamin C) 500 mg DAILY ORAL 11/06/19 09:00 11/23/19 08:59 11/12/19 09:27 Baclofen (Lioresal) 10 mg THREE TIMES A DAY ORAL 11/05/19 18:00 11/22/19 17:59 11/12/19 13:12 Desmopressin Acetate (Ddavp) 1 spray BID NASAL 11/09/19 18:00 02/07/20 17:59 11/12/19 09:36 Dextrose (Dextrose 50%) 25 ml Q30M PRN IV Hypoglycemia 11/05/19 13:30 01/21/20 17:29 Dextrose (Dextrose 50%) 50 ml Q30M PRN IV Hypoglycemia 11/05/19 13:30 01/21/20 17:29 Diphenhydramine HCl (Benadryl) 25 mg Q6H PRN ORAL Itching/Pruritis 11/05/19 14:00 11/22/19 07:54 Docusate Sodium (Colace) 100 mg EVERY 12 HOURS ORAL 11/05/19 21:00 11/22/19 20:59 11/12/19 09:26 Famotidine (Pepcid) 20 mg DAILY ORAL 11/06/19 09:00 01/28/20 09:29 11/12/19 09:27 Ferrous Sulfate (Feosol) 325 mg DAILY ORAL 11/06/19 09:00 01/22/20 08:59 11/12/19 09:27 Fluconazole (Diflucan) 400 mg DAILY ORAL 11/10/19 17:00 11/17/19 16:59 11/12/19 09:27 Gabapentin (Neurontin) 400 mg Q8HR ORAL 11/05/19 14:00 12/03/19 21:59 11/12/19 13:12 Heparin Sodium (Porcine) (Heparin 5000 units/ml) 5,000 units EVERY 12 HOURS SUBQ 11/05/19 21:00 12/08/19 08:59 11/12/19 09:26 Meropenem 1 gm/ Sodium Chloride 100 ml @ 200 mls/hr Q8HR IVPB 11/08/19 22:00 11/14/19 21:59 11/12/19 14:14 Midodrine (Pro-Amatine) 10 mg EVERY 8 HOURS ORAL 11/05/19 14:00 01/21/20 17:59 11/12/19 13:12 Ondansetron HCl (Zofran) 4 mg Q6H PRN IVP Nausea & Vomiting 11/05/19 14:00 11/22/19 07:57 Sodium Hypochlorite (Dakin's Quarter Strength) 1 applic DAILY TOPIC 11/06/19 09:00 11/24/19 08:59 11/12/19 09:37 Sodium Chloride 1,000 ml @ 75 mls/hr [id number] IV 11/09/19 10:00 12/09/19 09:59 11/11/19 02:16 Sodium Chloride (NaCl) 1 gm THREE TIMES A DAY ORAL 11/09/19 13:00 12/09/19 12:59 11/12/19 13:12 Vancomycin HCl (Vanco pharmacy to dose) 1 ea DAILY PRN MISC Per rx protocol 11/06/19 09:00 11/28/19 16:14 Vancomycin HCl 1 gm/Sodium Chloride 275 ml @ 183.708 mls/hr Q24H IVPB 11/11/19 03:00 11/16/19 02:59 11/12/19 02:12 Zinc Sulfate (Zinc Sulfate) 220 mg DAILY ORAL 11/06/19 09:00 01/22/20 08:59 11/12/19 09:27 Sharif Painting MD Nov 12, 2019 15:26
[2019-11-12 16:00] VITALS: BP 122/69
--- NOTE | 2019-11-12 16:24 | Cardiac Electrophysiology PN ---
Assessment/Plan Assessment/Plan 1. S/P Septic shock. Resolved on Midodrine, antibiotic, antifungal and iv fluid 2. Bradycardia. Resolved. 3. Paraplegia. 4. Urinary tract infection, 5. Decubitus ulcers with sacral decubitus. 6. S/P Ileostomy/ 7. Polyuria, DI. On NS, Salt tablets DW RN Subjective Subjective Alert in NAD. On iv.RN at bedside. SNIF placement tomorrow ending Objective Last 24 Hour Vital Signs Date Time Temp Pulse Resp B/P (MAP) Pulse Ox O2 Delivery O2 Flow Rate FiO2 11/12/19 12:00 98.9 81 20 115/65 (82) 95 11/12/19 09:00 Room Air 11/12/19 08:00 99.0 83 19 110/60 (77) 97 11/12/19 04:00 99.1 79 20 107/54 (71) 97 11/12/19 00:00 98.0 89 21 118/68 (85) 96 11/11/19 20:34 Room Air 11/11/19 20:00 98.3 67 20 94/57 (69) 97 11/11/19 17:15 98.9 11/11/19 17:09 98.9 Intake and Output 11/11/19 11/12/19 19:00 07:00 Intake Total 480 ml Output Total 1400 ml 800 ml Balance -920 ml -800 ml Intake Oral 480 ml Output Urine Total 1400 ml 800 ml # Voids 1 # Bowel Movements 1 Laboratory Tests Test 11/12/19 07:05 White Blood Count 13.1 K/UL (4.8-10.8) H Red Blood Count 3.23 M/UL (4.70-6.10) L Hemoglobin 8.8 G/DL (14.2-18.0) L Hematocrit 27.8 % (42.0-52.0) L Mean Corpuscular Volume 86 FL (80-99) Mean Corpuscular Hemoglobin 27.2 PG (27.0-31.0) Mean Corpuscular Hemoglobin Concent 31.6 G/DL (32.0-36.0) L Red Cell Distribution Width 16.2 % (11.6-14.8) H Platelet Count 547 K/UL (150-450) H Mean Platelet Volume 4.8 FL (6.5-10.1) L Neutrophils (%) (Auto) 71.7 % (45.0-75.0) Lymphocytes (%) (Auto) 18.0 % (20.0-45.0) L Monocytes (%) (Auto) 7.2 % (1.0-10.0) Eosinophils (%) (Auto) 1.8 % (0.0-3.0) Basophils (%) (Auto) 1.3 % (0.0-2.0) Objective HEAD AND NECK: No JVD. LUNGS: Coarse rhonchi. CARDIOVASCULAR: Regular S1 and S2 with no gallop. ABDOMEN: Soft.S/P Ileostomy EXTREMITIES: No pitting edema, however, has pressure ulcers. Carloz Estes MD Nov 12, 2019 16:24
[2019-11-12 16:56] LABS: APPEARANCE,URINE SLIGHTLY CLOUDY; BILIRUBIN, URINE NEGATIVE (NEGATIVE); COLOR,URINE AMBER; GLUCOSE, URINE (UA) NEGATIVE (NEGATIVE); KETONES,URINE NEGATIVE (NEGATIVE); LEUKOCYTE ESTERASE ,URINE NEGATIVE (NEGATIVE); NITRITE,URINE NEGATIVE (NEGATIVE); PH,URINE 6.5 (4.5-8.0); PROTEIN,URINE 2+ (NEGATIVE); UROBILINOGEN,URINE NORMAL MG/DL (0.0-1.0)
[2019-11-12 20:14] VITALS: BP 93/60
[2019-11-12] MEDS ORDERED: Lidocaine 1% Plain 30 ml INJ PRN (22:00)
[2019-11-12] MEDS ORDERED: Heparin1,000 units/500ml Premix(Conc:2 units/ml) IV PRN (22:00)
[2019-11-13] VITALS: BP 102/58
[2019-11-13 02:11] LABS: BASOPHILS % (AUTO) 1.1 % (0.0-2.0); EOSINOPHILS % (AUTO) 2.6 % (0.0-3.0); HEMATOCRIT 28.5 % (42.0-52.0); HEMOGLOBIN 9.2 G/DL (14.2-18.0); LYMPHOCYTES % (AUTO) 27.8 % (20.0-45.0); MEAN CORPUSCULAR VOLUME 86 FL (80-99); MONOCYTES % (AUTO) 7.1 % (1.0-10.0); NEUTROPHILS % (AUTO) 61.4 % (45.0-75.0); PLATELET COUNT 608 K/UL (150-450); RED BLOOD COUNT 3.32 M/UL (4.70-6.10); RED CELL DISTRIBUTION WIDTH 16.3 % (11.6-14.8); WHITE BLOOD COUNT 10.5 K/UL (4.8-10.8)
[2019-11-13 02:26] LABS: ALANINE AMINOTRANSFERASE 28 U/L (12-78); ALBUMIN 2.1 G/DL (3.4-5.0); ALBUMIN/GLOBULIN RATIO 0.3 (1.0-2.7); ALKALINE PHOSPHATASE 396 U/L (46-116); ANION GAP 8 mmol/L (5-15); ASPARTATE AMINO TRANSFERASE 20 U/L (15-37); BILIRUBIN,TOTAL 0.4 MG/DL (0.2-1.0); BLOOD UREA NITROGEN 18 mg/dL (7-18); CALCIUM 10.5 MG/DL (8.5-10.1); CARBON DIOXIDE 29 MMOL/L (21-32); CHLORIDE 94 MMOL/L (98-107); CREATININE 0.9 MG/DL (0.55-1.30); SODIUM 131 MMOL/L (136-145)
[2019-11-13] MEDS ORDERED: Vancomycin 1.25gm/NS Premix IVPB SCH ×2 (04:00→13:00)
[2019-11-13 04:26] VITALS: BP 117/66
[2019-11-13] MEDS: Midodrine 10mg tab ORAL SCH ×3 (05:36→21:13)
[2019-11-13] MEDS: HYDROcodone/Acetamin 5/325 tab ORAL PRN ×2 (05:37→13:54)
[2019-11-13 08:00] VITALS: BP 118/69
--- NOTE | 2019-11-13 08:07 | Hematology/Onc Progress Note ---
Assessment/Plan Assessment/Plan Assessment/recs # Anemia rule out gi bleed, as well as iron deficiency --> hgb 8.2-->7.2-->7.1->6.9-->8.6-->8.3-->9.3-->8.3-->9.3--.9.2 --> anemia panel ordered--> cw acd --> occult blood pending-->neg --> gi eval prn --> transfuse as needed --> transfuse 2 units 10/27 --> po iron to continue # Coagulopathy with elev ptt/inr --> vitk and ffp as needed --> no bleeding noted at this time # Thrombocytosis likely reactive process --> plt 398-->608-->605 --> abx as needed # Sepsis due to uti, with Hypotension likely due to septic shock. Was diuresing heavily at 300 mL an hour. --> Continue on midodrine and dopamine. --> ABX vancomycin and meropenem and amikacin-->christel/vanc/difluc --> before requires pressors --> as per cards # Bradycardia. --> per cards # Paraplegia. # Decubitus ulcers with sacral decubitus. # Dvt heparin sq Appreciate consultation and dw RN Subjective HEENT: Denies: no symptoms, eye pain, blurred vision, tearing, double vision, ear pain, ear discharge, nose pain, nose congestion, throat pain, throat swelling, mouth pain, mouth swelling, other Cardiovascular: Denies: no symptoms, chest pain, edema, irregular heart rate, lightheadedness, palpitations, syncope, other Gastrointestinal/Abdominal: Denies: no symptoms, abdomen distended, abdominal pain, black stools, tarry stools, blood in stool, constipated, diarrhea, difficulty swallowing, nausea, poor appetite, poor fluid intake, rectal bleeding , vomiting, other Genitourinary: Denies: no symptoms, burning, discharge, frequency, flank pain, hematuria, incontinence, pain, urgency, other Neurologic/Psychiatric: Denies: no symptoms, anxiety, depressed, emotional problems, headache, numbness, paresthesia, pre-existing deficit, seizure, tingling, tremors, weakness, other Endocrine: Denies: no symptoms, excessive sweating, flushing, intolerance to cold, intolerance to heat, increased hunger, increased thirst, increased urine, unexplained weight gain, unexplained weight loss, other Hematologic/Lymphatic: Denies: no symptoms, anemia, easy bleeding, easy bruising, adenopathy, other Allergies: Coded Allergies: No Known Allergies (Unverified , 08/15/19) Subjective 10/27 labs again refused this am, yesterday was low, chandrakant rn in icu 10/28 remains in icu, for 2units prbc this am, chandrakant rn, no other events 10/29 s/p prbc, tolerated it well, no bleeding, on 1mcg levo, in icu 10/30 on abx, on levo and overnight no other events, chandrakant merchandising intern\ 10/31 wounds improved, labs noted, no bleeding, hgb lower, refusing care/wound care 11/01 labs noted, no bleeding, no hematochezia, no hemoptysis, cbc ordered 11/02 meds reviewed, labs noted, no bleeding, chandrakant [place], no major changes, hgb 8.3 11/04 labs have been noted, no bleeding, meds reviewed, no hemolysis 11/05 functional colostomy llq, no bleeding, cbc is pending for am 11/06 labs have been refused, hgb 8.3, no bleeding, wbc is higher in am 11/07 labs have initially been refused, no bleeding in am, wbc 13, on abx 11/08 labs reviewed, no bleeding, chandrakant [place], cbc is pending for am 11/09 is on vanc/difl/christel, no other changes, cbc and bmp are noted 11/11 has been asymptomatic, eating breakfast, hgb 9.3, on abx 11/12 labs are noted, no bleeding, chandrakant [place], no major changes, abx Objective Objective Current Medications Medications (Trade) Dose Ordered Sig/Mya Route PRN Reason Start Time Stop Time Status Last Admin Dose Admin Acetaminophen (Tylenol) 650 mg Q4H PRN ORAL Mild Pain (Pain Scale 1-3) 11/05/19 14:00 11/30/19 13:59 11/13/19 04:32 Acetaminophen (Tylenol) 650 mg Q4H PRN ORAL Temp >100.5 11/05/19 16:00 12/05/19 15:59 11/11/19 16:39 Acetaminophen/ Hydrocodone Bitart ([place] 5/325) 2 tab Q4H PRN ORAL Severe Pain (Pain Scale 7-10) 11/08/19 15:45 11/15/19 15:44 11/13/19 05:37 Ascorbic Acid (Vitamin C) 500 mg DAILY ORAL 11/06/19 09:00 11/23/19 08:59 11/12/19 09:27 Baclofen (Lioresal) 10 mg THREE TIMES A DAY ORAL 11/05/19 18:00 11/22/19 17:59 11/12/19 18:04 Chlorhexidine Gluconate (Simran-Hex 2%) 1 applic DAILY@1999 TOPIC 11/13/19 20:00 02/11/20 19:59 Desmopressin Acetate (Ddavp) 1 spray BID NASAL 11/09/19 18:00 02/07/20 17:59 11/12/19 18:10 Dextrose (Dextrose 50%) 25 ml Q30M PRN IV Hypoglycemia 11/05/19 13:30 01/21/20 17:29 Dextrose (Dextrose 50%) 50 ml Q30M PRN IV Hypoglycemia 11/05/19 13:30 01/21/20 17:29 Diphenhydramine HCl (Benadryl) 25 mg Q6H PRN ORAL Itching/Pruritis 11/05/19 14:00 11/22/19 07:54 Docusate Sodium (Colace) 100 mg EVERY 12 HOURS ORAL 11/05/19 21:00 11/22/19 20:59 11/12/19 09:26 Famotidine (Pepcid) 20 mg DAILY ORAL 11/06/19 09:00 01/28/20 09:29 11/12/19 09:27 Ferrous Sulfate (Feosol) 325 mg DAILY ORAL 11/06/19 09:00 01/22/20 08:59 11/12/19 09:27 Fluconazole (Diflucan) 400 mg DAILY ORAL 11/10/19 17:00 11/17/19 16:59 11/12/19 09:27 Gabapentin (Neurontin) 400 mg Q8HR ORAL 11/05/19 14:00 12/03/19 21:59 11/13/19 05:36 Heparin Sodium (Porcine) (Heparin 5000 units/ml) 5,000 units EVERY 12 HOURS SUBQ 11/05/19 21:00 12/08/19 08:59 11/12/19 21:02 Heparin Sodium/ Sodium Chloride (Heparin 1000 units/500ml Premix) 1,000 unit ONCE PRN IV for picc line placement 11/12/19 22:00 11/14/19 21:59 Lidocaine HCl (Xylocaine 1% 30ml) 1 ml ONCE PRN INJ for picc line placement 11/12/19 22:00 11/14/19 21:59 Meropenem 1 gm/ Sodium Chloride 100 ml @ 200 mls/hr Q8HR IVPB 11/08/19 22:00 11/14/19 21:59 11/12/19 21:02 Midodrine (Pro-Amatine) 10 mg EVERY 8 HOURS ORAL 11/05/19 14:00 01/21/20 17:59 11/13/19 05:36 Ondansetron HCl (Zofran) 4 mg Q6H PRN IVP Nausea & Vomiting 11/05/19 14:00 11/22/19 07:57 Sodium Hypochlorite (Dakin's Quarter Strength) 1 applic DAILY TOPIC 11/06/19 09:00 11/24/19 08:59 11/12/19 09:37 Sodium Chloride 1,000 ml @ 75 mls/hr [id number] IV 11/09/19 10:00 12/09/19 09:59 11/12/19 18:10 Sodium Chloride (NaCl) 1 gm THREE TIMES A DAY ORAL 11/09/19 13:00 12/09/19 12:59 11/12/19 18:04 Vancomycin HCl (Vanco pharmacy to dose) 1 ea DAILY PRN MISC Per rx protocol 11/06/19 09:00 11/28/19 16:14 Vancomycin/Sodium Chloride 275 ml @ 183.333 mls/hr Q24H IVPB 11/13/19 04:00 11/18/19 03:59 Zinc Sulfate (Zinc Sulfate) 220 mg DAILY ORAL 11/06/19 09:00 01/22/20 08:59 11/12/19 09:27 Last 24 Hour Vital Signs Date Time Temp Pulse Resp B/P (MAP) Pulse Ox O2 Delivery O2 Flow Rate FiO2 11/13/19 06:19 99.8 11/13/19 05:22 99.8 11/13/19 04:26 101.8 93 18 117/66 (83) 98 11/13/19 00:00 98.2 79 19 102/58 (73) 96 11/12/19 20:20 Room Air 11/12/19 20:14 98.1 73 19 93/60 (71) 97 11/12/19 16:00 98.7 79 19 122/69 (86) 98 11/12/19 12:00 98.9 81 20 115/65 (82) 95 11/12/19 09:00 Room Air 11/12/19 08:00 99.0 83 19 110/60 (77) 97 11/12/19 04:00 99.1 79 20 107/54 (71) 97 11/12/19 00:00 98.0 89 21 118/68 (85) 96 11/11/19 20:34 Room Air 11/11/19 20:00 98.3 67 20 94/57 (69) 97 11/11/19 17:15 98.9 11/11/19 17:09 98.9 11/11/19 16:00 101.8 98 18 113/71 (85) 96 11/11/19 12:00 98.1 71 18 90/53 (65) 100 11/11/19 09:00 Room Air Intake and Output 11/12/19 11/13/19 19:00 07:00 Intake Total 75 ml 250 ml Output Total 760 ml 1000 ml Balance -685 ml -750 ml IV Total 75 ml 250 ml Output Urine Total 760 ml 1000 ml # Voids 1 # Bowel Movements 1 Labs Test 11/10/19 10:25 11/12/19 07:05 11/12/19 16:30 11/13/19 02:00 White Blood Count 11.7 K/UL (4.8-10.8) 13.1 K/UL (4.8-10.8) 10.5 K/UL (4.8-10.8) Red Blood Count 3.46 M/UL (4.70-6.10) 3.23 M/UL (4.70-6.10) 3.32 M/UL (4.70-6.10) Hemoglobin 9.3 G/DL (14.2-18.0) 8.8 G/DL (14.2-18.0) 9.2 G/DL (14.2-18.0) Hematocrit 29.5 % (42.0-52.0) 27.8 % (42.0-52.0) 28.5 % (42.0-52.0) Mean Corpuscular Volume 85 FL (80-99) 86 FL (80-99) 86 FL (80-99) Mean Corpuscular Hemoglobin 27.1 PG (27.0-31.0) 27.2 PG (27.0-31.0) 27.8 PG (27.0-31.0) Mean Corpuscular Hemoglobin Concent 31.6 G/DL (32.0-36.0) 31.6 G/DL (32.0-36.0) 32.4 G/DL (32.0-36.0) Red Cell Distribution Width 16.6 % (11.6-14.8) 16.2 % (11.6-14.8) 16.3 % (11.6-14.8) Platelet Count 605 K/UL (150-450) 547 K/UL (150-450) 608 K/UL (150-450) Mean Platelet Volume 4.4 FL (6.5-10.1) 4.8 FL (6.5-10.1) 4.7 FL (6.5-10.1) Neutrophils (%) (Auto) 71.7 % (45.0-75.0) 71.7 % (45.0-75.0) 61.4 % (45.0-75.0) Lymphocytes (%) (Auto) 16.5 % (20.0-45.0) 18.0 % (20.0-45.0) 27.8 % (20.0-45.0) Monocytes (%) (Auto) 8.1 % (1.0-10.0) 7.2 % (1.0-10.0) 7.1 % (1.0-10.0) Eosinophils (%) (Auto) 1.7 % (0.0-3.0) 1.8 % (0.0-3.0) 2.6 % (0.0-3.0) Basophils (%) (Auto) 2.0 % (0.0-2.0) 1.3 % (0.0-2.0) 1.1 % (0.0-2.0) Sodium Level 132 MMOL/L (136-145) 131 MMOL/L (136-145) Potassium Level 4.0 MMOL/L (3.5-5.1) 4.0 MMOL/L (3.5-5.1) Chloride Level 95 MMOL/L (98-107) 94 MMOL/L (98-107) Carbon Dioxide Level 28 MMOL/L (21-32) 29 MMOL/L (21-32) Anion Gap 9 mmol/L (5-15) 8 mmol/L (5-15) Blood Urea Nitrogen 15 mg/dL (7-18) 18 mg/dL (7-18) Creatinine 0.7 MG/DL (0.55-1.30) 0.9 MG/DL (0.55-1.30) Estimat Glomerular Filtration Rate > 60 mL/min (>60) > 60 mL/min (>60) Glucose Level 109 MG/DL (74-106) 123 MG/DL (74-106) Calcium Level 10.7 MG/DL (8.5-10.1) 10.5 MG/DL (8.5-10.1) Phosphorus Level 4.1 MG/DL (2.5-4.9) Vancomycin Level Trough 6.6 ug/mL (5.0-12.0) 8.6 ug/mL (5.0-12.0) Urine Color Nadia Urine Appearance Slightly cloudy Urine pH 6.5 (4.5-8.0) Urine Specific [place] 1.010 (1.005-1.035) Urine Protein 2+ (NEGATIVE) Urine Glucose (UA) Negative (NEGATIVE) Urine Ketones Negative (NEGATIVE) Urine Blood 1+ (NEGATIVE) Urine Nitrite Negative (NEGATIVE) Urine Bilirubin Negative (NEGATIVE) Urine Ictotest Negative (NEGATIVE) Urine Urobilinogen Normal MG/DL (0.0-1.0) Urine Leukocyte Esterase Negative (NEGATIVE) Urine RBC 2-4 /HPF (0 - 0) Urine WBC 0-2 /HPF (0 - 0) Urine Squamous Epithelial Cells None /LPF (NONE/OCC) Urine Amorphous Sediment Many /LPF (NONE) Urine Bacteria Moderate /HPF (NONE) Total Bilirubin 0.4 MG/DL (0.2-1.0) Aspartate Amino Transf (AST/SGOT) 20 U/L (15-37) Alanine Aminotransferase (ALT/SGPT) 28 U/L (12-78) Alkaline Phosphatase 396 U/L (46-116) Total Protein 9.0 G/DL (6.4-8.2) Albumin 2.1 G/DL (3.4-5.0) Globulin 6.9 g/dL Albumin/Globulin Ratio 0.3 (1.0-2.7) Height (Feet): 5 Height (Inches): 7.00 Weight (Pounds): 114 Objective Physical Exam General Appearance: lethargic Lines, tubes and drains: peripheral, central line HEENT: normocephalic Neck: non-tender, normal alignment Respiratory/Chest: lungs clear Cardiovascular/Chest: normal peripheral pulses, normal rate, regular rhythm Abdomen: normal bowel sounds, non tender ++ llq colostomy Martínez Capps MD Nov 13, 2019 08:07
[2019-11-13] MEDS: Dakin's 0.125% Soln (Quarter Strength) 16oz TOPIC SCH (09:00)
[2019-11-13] MEDS: Heparin 5000 units/ml inj SUBQ SCH ×2 (09:00→21:14)
[2019-11-13] MEDS: Sodium Chloride 1gm Tab ORAL SCH ×3 (09:10→17:17)
[2019-11-13] MEDS: Ascorbic Acid 500mg tab ORAL SCH (09:10)
[2019-11-13] MEDS: Docusate 100mg cap ORAL SCH ×2 (09:10→21:00)
[2019-11-13] MEDS: Zinc Sulfate 220mg ORAL SCH (09:10)
[2019-11-13] MEDS: Fluconazole 100mg tab ORAL SCH (09:16)
[2019-11-13] MEDS: Desmopressin Nasal 5ml NASAL SCH (09:16)
[2019-11-13] MEDS ORDERED: FEOSOL325 MG ORAL (09:27)
--- NOTE | 2019-11-13 09:39 | Discharge Summary ---
Discharge Summary Hospital Course Date of Admission Oct 23, 2019 at 15:40 Date of Discharge Admitting Diagnosis DR MADRID HPI 59-year-old male with past medical history of paraplegia, sacral decubitus ulcer , anemia, hypertension, ESBL multidrug-resistant urinary tract infection sent from senior living facility by ambulance for hypotension, general weakness and confusion. In ED he was noted to be altered with mild hypotension with SBP in 90s, lactate 2.0, UA with mild pyuria. Patient was to be admitted to tele but was upgraded to MICU due to persistent hypotension and bradycardia to 44, started on Levophed and dopamine overnight by accounting intern. Patient seen and examined, feels well, denies any specific complaints such as CP, dyspnea, weakness, dizziness. Consultations ID Nephrology Surgery Cardiology Heme/onc Hospital Course 59 year old man who presents from [facility] with weakness, encephalopathy, concern for septic shock, possible from UTI vs infected sacral pressure ulcer. Admitted to ICU for hypotension. Was started on Levophed and dopamine to keep MAP above 65. Required transfusion for anemia of 2 units pRBC. Hypotension eventually improved. During that time patient has episodes of bradycardia and cardiology evaluated. Was also started on midodrine for hypotension at that time. ID evaluated and cultures showed below. Pressure ulcers evaluated buy surgery. Currently on course of meropenem, vancomycin and Diflucan. Nephrolgy gave trial of DDAVP for hypernatremia but unclear of effectiveness due to patient refusing labs.Will go to SNF on .1 mg BID of desmopressin intranasal and salt tablets. During end of stay patient started refusing certain medicines as well. He was spiking night time fevers and all lines were DCed and antibiotics were changed. Leukocytosis resolved and patient felt good. Fevers likely due to drug fever since every source was explored and treated. #Septic shock- improving #Proteus UTI #Acute metabolic encephalopathy -improving #Paraplegia #Sacral pressure ulcer, present on admit -DC planning -Off vasopressors -off amikacin, continue meropenem and vancomycin -Spoke with surgery, sacral pressure ulcer does not appear to be infected -Local wound care and offloading #Sinus Bradycardia - resolved -continue telemetry -EP following #Hyponatremia #Hypokalemia -improving -refusing labs sometime -Replete when necessary -On DDAVP #Anemia, acute on chronic -2 units RBC 10/28 -Hematology following Full Code URINE CULTURE Final COMMENTS: ESBL CALLED TO LOBO AGUILAR RN BY DEIDRA MORGAN,CLS @0132 10/28/19 Organism 1 PROTEUS MIRABILIS COLONY COUNT: >100,000 CFU/ML Organism 2 ESCHERICHIA COLI - ESBL PRO MIRABI ESCCOL ESB M.I.C. RX M.I.C. RX --------- --- --------- --- AMPICILLIN >=32 R >=32 R CEFAZOLIN 8 S >=64 R CEFTAZIDIME R CEFTRIAXONE <=1 S >=64 R CEFEPIME R ERTAPENEM <=0.5 S GENTAMICIN <=1 S <=1 S LEVOFLOXACIN 4 I >=8 R * MEROPENEM <=0.25 S <=0.25 S NITROFURANTOIN 128 R <=16 S TRIMETHOPRIM/SULFA >=320 R >=320 R PIPERACILLIN/TAZOBACTAM <=4 S <=4 S I spent 39 minutes on this patient's discharge , and 21 mins was dedicated to counseling and care coordination. Discussed with all consultants, Charge nurse and RNs. Coordinated with SNF. Discharge Medications New Medications: Fluconazole (Fluconazole) 100 Mg Tablet 100 MG ORAL DAILY for 1 Day, #7 TAB 0 Refills Meropenem (Merrem) 1 Gm Vial 1 GM IV Q8HR for 1 Day, VIAL Vancomycin Hcl (Vancomycin) 1 Gm Vial 1 GM IV BID for 1 Day, VIAL Desmopressin Acetate (Desmopressin Acetate) 10 Mcg/0.1 Ml [place].pump 1 SPRAY NASAL BID for 30 Days, DROP Ferrous Sulfate (Feosol) 325 Mg Tablet 325 MG ORAL DAILY for 30 Days, TAB Midodrine (Midodrine HCl) 10 Mg Tablet 10 MG ORAL EVERY 8 HOURS for 30 Days, TAB Continued Medications: Acetaminophen* (Acetaminophen 325MG Tablet*) 325 Mg Tablet 650 MG ORAL Q6H PRN for pain/fever, TAB Amino Acids/Protein Hydrolys (Pro-Stat Liquid) 30 Ml Liquid.pkt 30 ML ORAL THREE TIMES A DAY for supplement, ML Ascorbic Acid* (Ascorbic Acid*) 500 Mg Tablet 500 MG ORAL DAILY for wound healing, TAB Baclofen* (Baclofen*) 10 Mg Tablet 10 MG ORAL THREE TIMES A DAY for muscle spasm, TAB Clonazepam* (Klonopin*) 0.5 Mg Tablet 0.5 MG ORAL TID for anxiety, #15 TAB 0 Refills Cranberry Fruit (Cranberry) 450 Mg Tablet 450 MG PO DAILY for UTI, TAB Docusate Sodium* (Docusate Sodium*) 100 Mg Capsule 100 MG ORAL TWICE A DAY for prophylaxis, CAP Ferrous Sulfate* (Ferrous Sulfate*) 325 Mg Tablet 325 MG ORAL DAILY for anemia, #30 TAB 0 Refills Gabapentin* (Gabapentin*) 400 Mg Capsule 400 MG ORAL THREE TIMES A DAY for pain, CAP 0 Refills Heparin Sod (Porcine) (Heparin Sodium*) 5 000/1 Ml Vial 5000 UNITS SUBQ EVERY 12 HOURS for scheduled, VIAL Magnesium Hydroxide* (Milk Of Magnesia*) 400 Mg/5 Ml Oral.susp 30 ML ORAL DAILY PRN for Constipation, ML Multivitamins* (Multivitamins*) 1 Each Tablet 1 TAB ORAL DAILY for supplement, TAB 0 Refills Omeprazole (Omeprazole) 20 Mg Capsule.dr 20 MG ORAL TWICE A DAY for GI ppx, CAP Tramadol Hcl* (Ultram*) 50 Mg Tablet 50 MG ORAL Q6H PRN for For Pain, #12 TAB 0 Refills Discharge Condition Upon Discharge: stable Discharge Vital Signs Last Vital Signs Date Time Temp Pulse Resp B/P (MAP) Pulse Ox O2 Delivery O2 Flow Rate FiO2 11/13/19 08:00 97.4 93 20 118/69 (85) 100 11/12/19 20:20 Room Air Discharge Disposition Patient was discharged to SNF Discharge Diagnoses: (1) Septic shock (2) SEAN (acute kidney injury) (3) UTI (urinary tract infection) (4) Hyponatremia (5) Encephalopathy (6) Drug (multiple) resistant infection (7) Hypokalemia (8) Decubital ulcer (9) Anemia Art Hensley M.D. Nov 13, 2019 09:39
--- NOTE | 2019-11-13 09:44 | Pulmonology Progress Note ---
Subjective ROS Limited/Unobtainable: No Interval Events: Looking better, no new complaints Constitutional: Reports: fatigue; Denies: fever HEENT: Repors: no symptoms Respiratory: Reports: no symptoms Cardiovascular: Reports: no symptoms Gastrointestinal/Abdominal: Denies: nausea, vomiting, diarrhea Genitourinary: Reports: no symptoms Psychiatric: Denies: depression Skin: Denies: rash Musculoskeletal: Denies: pain Allergies: Coded Allergies: No Known Allergies (Unverified , 08/15/19) All Systems: reviewed and negative except above Objective Last 24 Hour Vital Signs Date Time Temp Pulse Resp B/P (MAP) Pulse Ox O2 Delivery O2 Flow Rate FiO2 11/13/19 08:00 97.4 93 20 118/69 (85) 100 11/13/19 06:19 99.8 11/13/19 05:22 99.8 11/13/19 04:26 101.8 93 18 117/66 (83) 98 11/13/19 00:00 98.2 79 19 102/58 (73) 96 11/12/19 20:20 Room Air 11/12/19 20:14 98.1 73 19 93/60 (71) 97 11/12/19 16:00 98.7 79 19 122/69 (86) 98 11/12/19 12:00 98.9 81 20 115/65 (82) 95 Intake and Output 11/12/19 11/13/19 19:00 07:00 Intake Total 75 ml 250 ml Output Total 760 ml 1000 ml Balance -685 ml -750 ml IV Total 75 ml 250 ml Output Urine Total 760 ml 1000 ml # Voids 1 # Bowel Movements 1 General Appearance: no acute distress HEENT: normocephalic Respiratory: chest wall non-tender, lungs clear Cardiovascular: normal peripheral pulses, regular rhythm Abdomen: normal bowel sounds Extremities: no cyanosis Microbiology Date/Time Source Procedure Growth Status 11/12/19 16:30 Indwelling Cath Urine Culture - Preliminary NO GROWTH Resulted Laboratory Tests 11/12/19 16:30: Urine Color Nadia, Urine Appearance Slightly cloudy, Urine pH 6.5, Urine Specific [place] 1.010, Urine Protein 2+H, Urine Glucose (UA) Negative, Urine Ketones Negative, Urine Blood 1+H, Urine Nitrite Negative, Urine Bilirubin Negative, Urine Ictotest Negative, Urine Urobilinogen Normal, Urine Leukocyte Esterase Negative, Urine RBC 2-4H, Urine WBC 0-2, Urine Squamous Epithelial Cells None, Urine Amorphous Sediment ManyH, Urine Bacteria ModerateH 11/13/19 02:00: White Blood Count 10.5, Red Blood Count 3.32L, Hemoglobin 9.2L, Hematocrit 28.5L , Mean Corpuscular Volume 86, Mean Corpuscular Hemoglobin 27.8, Mean Corpuscular Hemoglobin Concent 32.4, Red Cell Distribution Width 16.3H, Platelet Count 608H, Mean Platelet Volume 4.7L, Neutrophils (%) (Auto) 61.4, Lymphocytes (%) (Auto) 27.8, Monocytes (%) (Auto) 7.1, Eosinophils (%) (Auto) 2.6, Basophils (%) (Auto) 1.1, Sodium Level 131L, Potassium Level 4.0, Chloride Level 94L, Carbon Dioxide Level 29, Anion Gap 8, Blood Urea Nitrogen 18, Creatinine 0.9, Estimat Glomerular Filtration Rate > 60, Glucose Level 123H, Calcium Level 10.5H, Total Bilirubin 0.4, Aspartate Amino Transf (AST/SGOT) 20, Alanine Aminotransferase (ALT/SGPT) 28, Alkaline Phosphatase 396H, Total Protein 9.0H, Albumin 2.1L, Globulin 6.9, Albumin/Globulin Ratio 0.3L, Vancomycin Level Trough 8.6 Current Medications Medications (Trade) Dose Ordered Sig/Mya Route PRN Reason Start Time Stop Time Status Last Admin Dose Admin Acetaminophen (Tylenol) 650 mg Q4H PRN ORAL Mild Pain (Pain Scale 1-3) 11/05/19 14:00 11/30/19 13:59 11/13/19 04:32 Acetaminophen (Tylenol) 650 mg Q4H PRN ORAL Temp >100.5 11/05/19 16:00 12/05/19 15:59 11/11/19 16:39 Acetaminophen/ Hydrocodone Bitart ([place] 5/325) 2 tab Q4H PRN ORAL Severe Pain (Pain Scale 7-10) 11/08/19 15:45 11/15/19 15:44 11/13/19 05:37 Ascorbic Acid (Vitamin C) 500 mg DAILY ORAL 11/06/19 09:00 11/23/19 08:59 11/13/19 09:10 Baclofen (Lioresal) 10 mg THREE TIMES A DAY ORAL 11/05/19 18:00 11/22/19 17:59 11/13/19 09:10 Chlorhexidine Gluconate (Simran-Hex 2%) 1 applic DAILY@1999 TOPIC 11/13/19 20:00 02/11/20 19:59 Desmopressin Acetate (Ddavp) 1 spray BID NASAL 11/09/19 18:00 02/07/20 17:59 11/13/19 09:16 Dextrose (Dextrose 50%) 25 ml Q30M PRN IV Hypoglycemia 11/05/19 13:30 01/21/20 17:29 Dextrose (Dextrose 50%) 50 ml Q30M PRN IV Hypoglycemia 11/05/19 13:30 01/21/20 17:29 Diphenhydramine HCl (Benadryl) 25 mg Q6H PRN ORAL Itching/Pruritis 11/05/19 14:00 11/22/19 07:54 Docusate Sodium (Colace) 100 mg EVERY 12 HOURS ORAL 11/05/19 21:00 11/22/19 20:59 11/13/19 09:10 Famotidine (Pepcid) 20 mg DAILY ORAL 11/06/19 09:00 01/28/20 09:29 11/13/19 09:10 Ferrous Sulfate (Feosol) 325 mg DAILY ORAL 11/06/19 09:00 01/22/20 08:59 11/13/19 09:10 Fluconazole (Diflucan) 400 mg DAILY ORAL 11/10/19 17:00 11/17/19 16:59 11/13/19 09:16 Gabapentin (Neurontin) 400 mg Q8HR ORAL 11/05/19 14:00 12/03/19 21:59 11/13/19 05:36 Heparin Sodium (Porcine) (Heparin 5000 units/ml) 5,000 units EVERY 12 HOURS SUBQ 11/05/19 21:00 12/08/19 08:59 11/12/19 21:02 Heparin Sodium/ Sodium Chloride (Heparin 1000 units/500ml Premix) 1,000 unit ONCE PRN IV for picc line placement 11/12/19 22:00 11/14/19 21:59 Lidocaine HCl (Xylocaine 1% 30ml) 1 ml ONCE PRN INJ for picc line placement 11/12/19 22:00 11/14/19 21:59 Meropenem 1 gm/ Sodium Chloride 100 ml @ 200 mls/hr Q8HR IVPB 11/08/19 22:00 11/14/19 21:59 11/12/19 21:02 Midodrine (Pro-Amatine) 10 mg EVERY 8 HOURS ORAL 11/05/19 14:00 01/21/20 17:59 11/13/19 05:36 Ondansetron HCl (Zofran) 4 mg Q6H PRN IVP Nausea & Vomiting 11/05/19 14:00 11/22/19 07:57 Sodium Hypochlorite (Dakin's Quarter Strength) 1 applic DAILY TOPIC 11/06/19 09:00 11/24/19 08:59 11/12/19 09:37 Sodium Chloride 1,000 ml @ 75 mls/hr [id number] IV 11/09/19 10:00 12/09/19 09:59 11/12/19 18:10 Sodium Chloride (NaCl) 1 gm THREE TIMES A DAY ORAL 11/09/19 13:00 12/09/19 12:59 11/13/19 09:10 Vancomycin HCl (Vanco pharmacy to dose) 1 ea DAILY PRN MISC Per rx protocol 11/06/19 09:00 11/28/19 16:14 Vancomycin/Sodium Chloride 275 ml @ 183.333 mls/hr Q24H IVPB 11/13/19 04:00 11/18/19 03:59 Zinc Sulfate (Zinc Sulfate) 220 mg DAILY ORAL 11/06/19 09:00 01/22/20 08:59 11/13/19 09:10 Assessment/Plan Assessment/Plan IMPRESSION: 1. Septic shock. resolved 2. Complicated UTI with history of previous ESBL infection. 3. Paraplegia. 4. Sacral decubitus. 5. USP resident. DISCUSSION: DVT and GI prophylaxes. ID consult and follow-up noted. I will follow carefully. Continue Oxygen, doing well on room air at this time. Haily Monzon Omar Syed MD Nov 13, 2019 09:44
--- NOTE | 2019-11-13 11:07 | Nephrology Progress Note ---
Assessment/Plan Plan #Polyuria - r/o DI vs dopamine effect??- however sodium remains in normal range #Shock #UTI # infected sacral pressure ulcer #Acute metabolic encephalopathy #Paraplegia #Sacral pressure ulcer #Hypokalemia #Anemia -Continue desmopressin 1 nsala BID and salt tabs 1g TID - continue midodrine 10 TID - ok to DC to snf today - antibiotics per ID - monitor lytes - monitor for vanoc toxicity - avoid nephrotoxins - daily weights - strict I&Os time spent 70 min- greater than 50% on care coordination and counseling Subjective Subjective UOP less on nasal desmopressin on salt tabs Objective Objective Last 24 Hour Vital Signs Date Time Temp Pulse Resp B/P (MAP) Pulse Ox O2 Delivery O2 Flow Rate FiO2 11/13/19 09:00 Room Air 11/13/19 08:00 97.4 93 20 118/69 (85) 100 11/13/19 06:19 99.8 11/13/19 05:22 99.8 11/13/19 04:26 101.8 93 18 117/66 (83) 98 11/13/19 00:00 98.2 79 19 102/58 (73) 96 11/12/19 20:20 Room Air 11/12/19 20:14 98.1 73 19 93/60 (71) 97 11/12/19 16:00 98.7 79 19 122/69 (86) 98 11/12/19 12:00 98.9 81 20 115/65 (82) 95 Intake and Output 11/12/19 11/13/19 19:00 07:00 Intake Total 75 ml 250 ml Output Total 760 ml 1000 ml Balance -685 ml -750 ml IV Total 75 ml 250 ml Output Urine Total 760 ml 1000 ml # Voids 1 # Bowel Movements 1 Laboratory Tests 11/12/19 16:30: Urine Color Nadia, Urine Appearance Slightly cloudy, Urine pH 6.5, Urine Specific [place] 1.010, Urine Protein 2+H, Urine Glucose (UA) Negative, Urine Ketones Negative, Urine Blood 1+H, Urine Nitrite Negative, Urine Bilirubin Negative, Urine Ictotest Negative, Urine Urobilinogen Normal, Urine Leukocyte Esterase Negative, Urine RBC 2-4H, Urine WBC 0-2, Urine Squamous Epithelial Cells None, Urine Amorphous Sediment ManyH, Urine Bacteria ModerateH 11/13/19 02:00: White Blood Count 10.5, Red Blood Count 3.32L, Hemoglobin 9.2L, Hematocrit 28.5L , Mean Corpuscular Volume 86, Mean Corpuscular Hemoglobin 27.8, Mean Corpuscular Hemoglobin Concent 32.4, Red Cell Distribution Width 16.3H, Platelet Count 608H, Mean Platelet Volume 4.7L, Neutrophils (%) (Auto) 61.4, Lymphocytes (%) (Auto) 27.8, Monocytes (%) (Auto) 7.1, Eosinophils (%) (Auto) 2.6, Basophils (%) (Auto) 1.1, Sodium Level 131L, Potassium Level 4.0, Chloride Level 94L, Carbon Dioxide Level 29, Anion Gap 8, Blood Urea Nitrogen 18, Creatinine 0.9, Estimat Glomerular Filtration Rate > 60, Glucose Level 123H, Calcium Level 10.5H, Total Bilirubin 0.4, Aspartate Amino Transf (AST/SGOT) 20, Alanine Aminotransferase (ALT/SGPT) 28, Alkaline Phosphatase 396H, Total Protein 9.0H, Albumin 2.1L, Globulin 6.9, Albumin/Globulin Ratio 0.3L, Vancomycin Level Trough 8.6 Height (Feet): 5 Height (Inches): 7.00 Weight (Pounds): 114 Sienna Georges M.D. Nov 13, 2019 11:07
--- NOTE | 2019-11-13 11:14 | Surgery Progress Note ---
Surgery Progress Note Subjective Additional Comments no acute events comfortable no complaints did have another fever 101.8 tolerating diet needs bowel regimen Objective Last 24 Hour Vital Signs Date Time Temp Pulse Resp B/P (MAP) Pulse Ox O2 Delivery O2 Flow Rate FiO2 11/13/19 09:00 Room Air 11/13/19 08:00 97.4 93 20 118/69 (85) 100 11/13/19 06:19 99.8 11/13/19 05:22 99.8 11/13/19 04:26 101.8 93 18 117/66 (83) 98 11/13/19 00:00 98.2 79 19 102/58 (73) 96 11/12/19 20:20 Room Air 11/12/19 20:14 98.1 73 19 93/60 (71) 97 11/12/19 16:00 98.7 79 19 122/69 (86) 98 11/12/19 12:00 98.9 81 20 115/65 (82) 95 I&O Intake and Output 11/12/19 11/13/19 19:00 07:00 Intake Total 75 ml 250 ml Output Total 760 ml 1000 ml Balance -685 ml -750 ml IV Total 75 ml 250 ml Output Urine Total 760 ml 1000 ml # Voids 1 # Bowel Movements 1 Dressing: other Wound: other Cardiovascular: RSR Respiratory: decreased breath sounds Abdomen: soft, distended, decreased bowel sounds Extremities: no edema, no tenderness, no cyanosis Laboratory Tests Test 11/12/19 16:30 11/13/19 02:00 Urine Color Nadia Urine Appearance Slightly cloudy Urine pH 6.5 (4.5-8.0) Urine Specific [place] 1.010 (1.005-1.035) Urine Protein 2+ (NEGATIVE) H Urine Glucose (UA) Negative (NEGATIVE) Urine Ketones Negative (NEGATIVE) Urine Blood 1+ (NEGATIVE) H Urine Nitrite Negative (NEGATIVE) Urine Bilirubin Negative (NEGATIVE) Urine Ictotest Negative (NEGATIVE) Urine Urobilinogen Normal MG/DL (0.0-1.0) Urine Leukocyte Esterase Negative (NEGATIVE) Urine RBC 2-4 /HPF (0 - 0) H Urine WBC 0-2 /HPF (0 - 0) Urine Squamous Epithelial Cells None /LPF (NONE/OCC) Urine Amorphous Sediment Many /LPF (NONE) H Urine Bacteria Moderate /HPF (NONE) H White Blood Count 10.5 K/UL (4.8-10.8) Red Blood Count 3.32 M/UL (4.70-6.10) L Hemoglobin 9.2 G/DL (14.2-18.0) L Hematocrit 28.5 % (42.0-52.0) L Mean Corpuscular Volume 86 FL (80-99) Mean Corpuscular Hemoglobin 27.8 PG (27.0-31.0) Mean Corpuscular Hemoglobin Concent 32.4 G/DL (32.0-36.0) Red Cell Distribution Width 16.3 % (11.6-14.8) H Platelet Count 608 K/UL (150-450) H Mean Platelet Volume 4.7 FL (6.5-10.1) L Neutrophils (%) (Auto) 61.4 % (45.0-75.0) Lymphocytes (%) (Auto) 27.8 % (20.0-45.0) Monocytes (%) (Auto) 7.1 % (1.0-10.0) Eosinophils (%) (Auto) 2.6 % (0.0-3.0) Basophils (%) (Auto) 1.1 % (0.0-2.0) Sodium Level 131 MMOL/L (136-145) L Potassium Level 4.0 MMOL/L (3.5-5.1) Chloride Level 94 MMOL/L (98-107) L Carbon Dioxide Level 29 MMOL/L (21-32) Anion Gap 8 mmol/L (5-15) Blood Urea Nitrogen 18 mg/dL (7-18) Creatinine 0.9 MG/DL (0.55-1.30) Estimat Glomerular Filtration Rate > 60 mL/min (>60) Glucose Level 123 MG/DL (74-106) H Calcium Level 10.5 MG/DL (8.5-10.1) H Total Bilirubin 0.4 MG/DL (0.2-1.0) Aspartate Amino Transf (AST/SGOT) 20 U/L (15-37) Alanine Aminotransferase (ALT/SGPT) 28 U/L (12-78) Alkaline Phosphatase 396 U/L (46-116) H Total Protein 9.0 G/DL (6.4-8.2) H Albumin 2.1 G/DL (3.4-5.0) L Globulin 6.9 g/dL Albumin/Globulin Ratio 0.3 (1.0-2.7) L Vancomycin Level Trough 8.6 ug/mL (5.0-12.0) Plan Problems: (1) Abdominal distension Assessment & Plan: abd distention soft non tender ostomy viable and reduced KUB ordered pending results improved comfortable no complaints okay for diet s tolerated d/c planning much improved There is an inferior vena cava filter in place. Bowel gas pattern is unremarkable. Considerable stool is seen in the transverse and distal colon. There is extensive pelvic deformity, with loss of the left femoral head, chronic dislocation of the left femur, and extensive pelvic deformity, particularly on the left. Adi project over the upper pelvis Impression: Possible constipation. pending placement Nonobstructed bowel gas pattern. Moderate fecal retention of the ascending colon and sigmoid colon. The degree of stool burden has increased from October 25, 2019. IVC filter, incidentally noted. Partial subluxation of the right hip. Osteotomy of the proximal left femur with deformity of the bilateral pubic rami and left acetabulum, unchanged. 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 [place] Shaped, Full Thickness Sacral Pressure Injury which extends into L ischium. (L)15.4cm x (W)18cm x (D)2.4cm, Undermining clockwise 10-2 by 7.7cm @ 11o'clock. Base of wound is moist,pink with scattered slough at base of wound. Bone is palpable at the Base. No odor or exudate noted. Scattered partial thickness wounds and Serous filled blisters noted to R trochanteric /R Hip areas. Historical scar noted to L groin, L Hip L Buttocks. Bony protrusion noted at L Hip. Full thickness Pressure Injury R Ischium(L)5.4cm x(W)6.9cm x (D)1.8cm, Undermining clockwise 1-4 by 2.7cm @2o'clock, Tunneling@7o'clock 2.9cm. Base of wound is moist pink with scattered slough. Scattered slough noted along borders. NO odor or exudate noted. Stable dry eschar noted to medial R knee 0.7cm x (W)0.4cm. Periwound is erythematous and indurated. No elevation in skin temp noted. L heel has shaved appearance secondary to Hx of Pressure Injuries. Base of heel is pale pink. Bone is palpable. Small area of slough noted within compromised area(L)0.6cm x (W)0.8cm. L Heel Also has shaved appearance with hypertrophic scarring. Base of compromised area is pale pink, Bone is palpable, with scattered loose, dry and scaly skin. Tx.Plan: Cleanse Sacral Wound and R Ischial wounds with Dakin's 0.125% gian. Loosely pack wounds with Hydrogel impregnated Kerlix. Apply Moisture Barrier Paste periwound. Cover with ABD Pads secure with Tegaderm drsg.Daily and prn. Apply Triad Paste to R Hip/R trochanteric areas.Cover with Optifoam drsg. Change every 7 days and prn. Apply Betadine to Medial R Knee. Cover with Optifoam drsg. Change every 7 days and prn. Apply Betadine to R and L Heels. Cover each Heel with Optifoam drsgs. Change every 7 days and prn. Cover Bony Prominences as needed with Optifoam drsgs. Reposition at least every 2 [address] tolerated[address] Pillow between knees. Off-load heels with pillow. APM/SUMI Mattress overlay DAILY ESTIMATED NEEDS: Needs based on Advanced wounds, wt loss/ 40.18kg 35-40 kcals/kg 3891-8673 total kcals 1.5-2.0 g protein/kg 60-80 g total protein 25-35ml/kcal mL/kg 4800-1648 total fluid mLs NUTRITION DIAGNOSIS: Increased kcal/prot/micronutrients needs R/T wound healing and underweight status as evidenced by pt admitted w/ multiple advanced wounds, refer to WC eval, pt now w/ further 3% unfavorable wt loss, currently BMI underweight per guidelines, @62% of [place] Body Weight. 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
[2019-11-13] MEDS ORDERED: Milk of Magnesia 30ml Ud ORAL PRN (11:15)
[2019-11-13] MEDS ORDERED: Milk of Magnesia 30ml Ud ORAL SCH (11:15)
--- NOTE | 2019-11-13 11:44 | Pre-Procedure Note/Attestation ---
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 I attest that, if there was a reasonable possibility of needing a blood transfusion, the patient (or the patient's legal guest experience representative) was given the [facility] standardized written summary, pursuant to the [place] Blood Safety Act ([place] Health and Safety Code # 1645, as amended). I attest that I re-evaluated the patient just prior to the surgery and that there has been no change in the patient's H&P, except as documented below: Ranulfo Edmond MD Nov 13, 2019 11:44
--- NOTE | 2019-11-13 11:46 | Brief Operative Note ---
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
[2019-11-13 12:00] VITALS: BP 114/70
--- NOTE | 2019-11-13 12:26 | Diagnostic Imaging Report ---
Indication: Cough Technique: One view of the chest Comparison: 11/09/2019 Findings: Bilateral basilar atelectasis has increased. No new infiltrates. The pleural spaces remain clear. The heart size is normal. Impression: Increased bilateral basilar atelectasis, since prior study 11/09/2019
--- NOTE | 2019-11-13 12:37 | Diagnostic Imaging Report ---
Indications: Needs long-term IV access Technique: Ultrasound confirms patent compressible right basilic vein. Total sterile technique, including sterile probe cover and sterile gel, hat, mask, sterile gown, large sterile drape, and preparation with 2% chlorhexidine utilized. Local anesthesia with 1% lidocaine. Under real-time ultrasound guidance, puncture right basilic vein using 21-gauge needle, documented and archived, passage 0.018 guidewire under direct fluoroscopy, which was used to determine appropriate catheter length, exchange for 4 Albanian peel-away sheath. 4 Albanian Bard dual-lumen power PICC cut to 36 cm. It was inserted through the peel-away sheath. Peel-away sheath and guidewire removed. Catheter fixed to the skin. Both catheter ports aspirated and flushed. Patient tolerated procedure well, without immediate complication. Digital radiograph documents satisfactory catheter tip position, at the cavoatrial junction. Total fluoroscopy time 11.5 seconds. Total dose area product [id number] Total number of images: 1 Impression: Successful placement of right arm PICC under sonographic and fluoroscopic guidance, as described above.
--- NOTE | 2019-11-13 14:12 | Cardiac Electrophysiology PN ---
Assessment/Plan Assessment/Plan 1. S/P Septic shock. Resolved on Midodrine and antibiotic S/P PICC line 2. Bradycardia. Resolved. 3. Paraplegia. 4. Urinary tract infection, 5. Decubitus ulcers with sacral decubitus. 6. S/P Ileostomy/ 7. Polyuria, DI. On NS, Salt tablets DW RN Subjective Subjective Alert in NAD. On iv. RN at bedside.S/P PICC line today. SNIF placement pending Objective Last 24 Hour Vital Signs Date Time Temp Pulse Resp B/P (MAP) Pulse Ox O2 Delivery O2 Flow Rate FiO2 11/13/19 12:00 97.8 81 20 114/70 (85) 98 11/13/19 09:00 Room Air 11/13/19 08:00 97.4 93 20 118/69 (85) 100 11/13/19 06:19 99.8 11/13/19 05:22 99.8 11/13/19 04:26 101.8 93 18 117/66 (83) 98 11/13/19 00:00 98.2 79 19 102/58 (73) 96 11/12/19 20:20 Room Air 11/12/19 20:14 98.1 73 19 93/60 (71) 97 11/12/19 16:00 98.7 79 19 122/69 (86) 98 Intake and Output 11/12/19 11/13/19 19:00 07:00 Intake Total 75 ml 250 ml Output Total 760 ml 1000 ml Balance -685 ml -750 ml IV Total 75 ml 250 ml Output Urine Total 760 ml 1000 ml # Voids 1 # Bowel Movements 1 Laboratory Tests Test 11/12/19 16:30 11/13/19 02:00 Urine Color Nadia Urine Appearance Slightly cloudy Urine pH 6.5 (4.5-8.0) Urine Specific [place] 1.010 (1.005-1.035) Urine Protein 2+ (NEGATIVE) H Urine Glucose (UA) Negative (NEGATIVE) Urine Ketones Negative (NEGATIVE) Urine Blood 1+ (NEGATIVE) H Urine Nitrite Negative (NEGATIVE) Urine Bilirubin Negative (NEGATIVE) Urine Ictotest Negative (NEGATIVE) Urine Urobilinogen Normal MG/DL (0.0-1.0) Urine Leukocyte Esterase Negative (NEGATIVE) Urine RBC 2-4 /HPF (0 - 0) H Urine WBC 0-2 /HPF (0 - 0) Urine Squamous Epithelial Cells None /LPF (NONE/OCC) Urine Amorphous Sediment Many /LPF (NONE) H Urine Bacteria Moderate /HPF (NONE) H White Blood Count 10.5 K/UL (4.8-10.8) Red Blood Count 3.32 M/UL (4.70-6.10) L Hemoglobin 9.2 G/DL (14.2-18.0) L Hematocrit 28.5 % (42.0-52.0) L Mean Corpuscular Volume 86 FL (80-99) Mean Corpuscular Hemoglobin 27.8 PG (27.0-31.0) Mean Corpuscular Hemoglobin Concent 32.4 G/DL (32.0-36.0) Red Cell Distribution Width 16.3 % (11.6-14.8) H Platelet Count 608 K/UL (150-450) H Mean Platelet Volume 4.7 FL (6.5-10.1) L Neutrophils (%) (Auto) 61.4 % (45.0-75.0) Lymphocytes (%) (Auto) 27.8 % (20.0-45.0) Monocytes (%) (Auto) 7.1 % (1.0-10.0) Eosinophils (%) (Auto) 2.6 % (0.0-3.0) Basophils (%) (Auto) 1.1 % (0.0-2.0) Sodium Level 131 MMOL/L (136-145) L Potassium Level 4.0 MMOL/L (3.5-5.1) Chloride Level 94 MMOL/L (98-107) L Carbon Dioxide Level 29 MMOL/L (21-32) Anion Gap 8 mmol/L (5-15) Blood Urea Nitrogen 18 mg/dL (7-18) Creatinine 0.9 MG/DL (0.55-1.30) Estimat Glomerular Filtration Rate > 60 mL/min (>60) Glucose Level 123 MG/DL (74-106) H Calcium Level 10.5 MG/DL (8.5-10.1) H Total Bilirubin 0.4 MG/DL (0.2-1.0) Aspartate Amino Transf (AST/SGOT) 20 U/L (15-37) Alanine Aminotransferase (ALT/SGPT) 28 U/L (12-78) Alkaline Phosphatase 396 U/L (46-116) H Total Protein 9.0 G/DL (6.4-8.2) H Albumin 2.1 G/DL (3.4-5.0) L Globulin 6.9 g/dL Albumin/Globulin Ratio 0.3 (1.0-2.7) L Vancomycin Level Trough 8.6 ug/mL (5.0-12.0) Microbiology Date/Time Source Procedure Growth Status 11/12/19 16:30 Indwelling Cath Urine Culture - Preliminary NO GROWTH Resulted Objective HEAD AND NECK: No JVD. LUNGS: Coarse rhonchi. CARDIOVASCULAR: Regular S1 and S2 with no gallop. ABDOMEN: Soft.S/P Ileostomy EXTREMITIES: No pitting edema, however, has pressure ulcers. Carloz Estes MD Nov 13, 2019 14:12
[2019-11-13 16:00] VITALS: BP 117/73
[2019-11-13 20:00] VITALS: BP 131/73
[2019-11-13] MEDS: Dyna-Hex 2% Top Sol 2oz TOPIC SCH (21:13)
[2019-11-14] VITALS (8 sets, daily range): BP systolic 81–108; BP diastolic 45–67
[2019-11-14] MEDS: Midodrine 10mg tab ORAL SCH ×3 (05:30→21:27)
--- NOTE | 2019-11-14 07:41 | Hematology/Onc Progress Note ---
Assessment/Plan Assessment/Plan Assessment/recs # Anemia rule out gi bleed, as well as iron deficiency --> hgb 8.2-->7.2-->7.1->6.9-->8.6-->8.3-->9.3-->8.3-->9.3--.9.2 --> anemia panel ordered--> cw acd --> occult blood pending-->neg --> gi eval prn --> transfuse as needed --> transfuse 2 units 10/27 --> po iron to continue # Coagulopathy with elev ptt/inr --> vitk and ffp as needed --> no bleeding noted at this time # Thrombocytosis likely reactive process --> plt 398-->608-->605 --> abx as needed # Sepsis due to uti, with Hypotension likely due to septic shock. Was diuresing heavily at 300 mL an hour. --> Continue on midodrine and dopamine. --> ABX vancomycin and meropenem and amikacin-->christel/vanc/difluc --> before requires pressors --> as per cards # Bradycardia. --> per cards # Paraplegia. # Decubitus ulcers with sacral decubitus. # Dvt heparin sq Appreciate consultation and dw RN Subjective Constitutional: Denies: no symptoms, chills, fever, malaise, weakness, other HEENT: Denies: no symptoms, eye pain, blurred vision, tearing, double vision, ear pain, ear discharge, nose pain, nose congestion, throat pain, throat swelling, mouth pain, mouth swelling, other Cardiovascular: Denies: no symptoms, chest pain, edema, irregular heart rate, lightheadedness, palpitations, syncope, other Respiratory: Denies: no symptoms, cough, shortness of breath, SOB with excertion, SOB at rest, sputum, wheezing, other Gastrointestinal/Abdominal: Denies: no symptoms, abdomen distended, abdominal pain, black stools, tarry stools, blood in stool, constipated, diarrhea, difficulty swallowing, nausea, poor appetite, poor fluid intake, rectal bleeding , vomiting, other Hematologic/Lymphatic: Denies: no symptoms, anemia, easy bleeding, easy bruising, adenopathy, other Allergies: Coded Allergies: No Known Allergies (Unverified , 08/15/19) Subjective 10/27 labs again refused this am, yesterday was low, chandrakant rn in icu 10/28 remains in icu, for 2units prbc this am, chandrakant rn, no other events 10/29 s/p prbc, tolerated it well, no bleeding, on 1mcg levo, in icu 10/30 on abx, on levo and overnight no other events, chandrakant internal 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 consultant\ 10/31 wounds improved, labs noted, no bleeding, hgb lower, refusing care/wound care 11/01 labs noted, no bleeding, no hematochezia, no hemoptysis, cbc ordered 11/02 meds reviewed, labs noted, no bleeding, chandrakant rn, no major changes, hgb 8.3 11/04 labs have been noted, no bleeding, meds reviewed, no hemolysis 11/05 functional colostomy llq, no bleeding, cbc is pending for am 11/06 labs have been refused, hgb 8.3, no bleeding, wbc is higher in am 11/07 labs have initially been refused, no bleeding in am, wbc 13, on abx 11/08 labs reviewed, no bleeding, chandrakant [place], cbc is pending for am 11/09 is on vanc/difl/christel, no other changes, cbc and bmp are noted 11/11 has been asymptomatic, eating breakfast, hgb 9.3, on abx 11/12 labs are noted, no bleeding, chandrakant [place], no major changes, abx 11/13 is currently on christel and vanc, chandrakant [place], no major bleeding, on hep sq Objective Objective Current Medications Medications (Trade) Dose Ordered Sig/Mya Route PRN Reason Start Time Stop Time Status Last Admin Dose Admin Acetaminophen (Tylenol) 650 mg Q4H PRN ORAL Mild Pain (Pain Scale 1-3) 11/05/19 14:00 11/30/19 13:59 11/13/19 04:32 Acetaminophen (Tylenol) 650 mg Q4H PRN ORAL Temp >100.5 11/05/19 16:00 12/05/19 15:59 11/11/19 16:39 Acetaminophen/ Hydrocodone Bitart ([place] 5/325) 2 tab Q4H PRN ORAL Severe Pain (Pain Scale 7-10) 11/08/19 15:45 11/15/19 15:44 11/13/19 13:54 Ascorbic Acid (Vitamin C) 500 mg DAILY ORAL 11/06/19 09:00 11/23/19 08:59 11/13/19 09:10 Baclofen (Lioresal) 10 mg THREE TIMES A DAY ORAL 11/05/19 18:00 11/22/19 17:59 11/13/19 17:17 Chlorhexidine Gluconate (Simran-Hex 2%) 1 applic DAILY@2000 TOPIC 11/13/19 20:00 02/11/20 19:59 11/13/19 21:13 Desmopressin Acetate (Ddavp) 1 spray DAILY NASAL 11/14/19 09:00 02/07/20 17:59 Dextrose (Dextrose 50%) 25 ml Q30M PRN IV Hypoglycemia 11/05/19 13:30 01/21/20 17:29 Dextrose (Dextrose 50%) 50 ml Q30M PRN IV Hypoglycemia 11/05/19 13:30 01/21/20 17:29 Diphenhydramine HCl (Benadryl) 25 mg Q6H PRN ORAL Itching/Pruritis 11/05/19 14:00 11/22/19 07:54 Docusate Sodium (Colace) 100 mg EVERY 12 HOURS ORAL 11/05/19 21:00 11/22/19 20:59 11/13/19 09:10 Famotidine (Pepcid) 20 mg DAILY ORAL 11/06/19 09:00 01/28/20 09:29 11/13/19 09:10 Ferrous Sulfate (Feosol) 325 mg DAILY ORAL 11/06/19 09:00 01/22/20 08:59 11/13/19 09:10 Fluconazole (Diflucan) 400 mg DAILY ORAL 11/10/19 17:00 11/17/19 16:59 11/13/19 09:16 Gabapentin (Neurontin) 400 mg Q8HR ORAL 11/05/19 14:00 12/03/19 21:59 11/14/19 05:30 Heparin Sodium (Porcine) (Heparin 5000 units/ml) 5,000 units EVERY 12 HOURS SUBQ 11/05/19 21:00 12/08/19 08:59 11/13/19 21:14 Heparin Sodium/ Sodium Chloride (Heparin 1000 units/500ml Premix) 1,000 unit ONCE PRN IV for picc line placement 11/12/19 22:00 11/14/19 21:59 Lidocaine HCl (Xylocaine 1% 30ml) 1 ml ONCE PRN INJ for picc line placement 11/12/19 22:00 11/14/19 21:59 Magnesium Hydroxide (Mom) 30 ml HSPRN PRN ORAL Constipation 11/13/19 11:15 12/13/19 11:14 Meropenem 1 gm/ Sodium Chloride 100 ml @ 200 mls/hr Q8H IVPB 11/13/19 17:00 11/18/19 16:59 11/14/19 00:41 Midodrine (Pro-Amatine) 10 mg EVERY 8 HOURS ORAL 11/05/19 14:00 01/21/20 17:59 11/14/19 05:30 Ondansetron HCl (Zofran) 4 mg Q6H PRN IVP Nausea & Vomiting 11/05/19 14:00 11/22/19 07:57 Sodium Hypochlorite (Dakin's Quarter Strength) 1 applic DAILY TOPIC 11/06/19 09:00 11/24/19 08:59 11/13/19 09:00 Sodium Chloride (NaCl) 1 gm THREE TIMES A DAY ORAL 11/09/19 13:00 12/09/19 12:59 11/13/19 17:17 Vancomycin HCl (Vanco pharmacy to dose) 1 ea DAILY PRN MISC Per rx protocol 11/06/19 09:00 11/28/19 16:14 Vancomycin/Sodium Chloride 275 ml @ 183.333 mls/hr Q24H IVPB 11/13/19 13:00 11/18/19 12:59 11/13/19 13:00 Zinc Sulfate (Zinc Sulfate) 220 mg DAILY ORAL 11/06/19 09:00 01/22/20 08:59 11/13/19 09:10 Last 24 Hour Vital Signs Date Time Temp Pulse Resp B/P (MAP) Pulse Ox O2 Delivery O2 Flow Rate FiO2 11/14/19 04:00 100.1 91 22 104/67 (79) 97 11/14/19 00:15 98.1 91 22 108/61 (77) 97 11/13/19 21:00 Room Air 11/13/19 20:00 98.2 94 22 131/73 (92) 96 11/13/19 16:00 98.0 84 19 117/73 (88) 97 11/13/19 12:00 97.8 81 20 114/70 (85) 98 11/13/19 09:00 Room Air 11/13/19 08:00 97.4 93 20 118/69 (85) 100 11/13/19 06:19 99.8 11/13/19 05:22 99.8 11/13/19 04:26 101.8 93 18 117/66 (83) 98 11/13/19 00:00 98.2 79 19 102/58 (73) 96 11/12/19 20:20 Room Air 11/12/19 20:14 98.1 73 19 93/60 (71) 97 11/12/19 16:00 98.7 79 19 122/69 (86) 98 11/12/19 12:00 98.9 81 20 115/65 (82) 95 11/12/19 09:00 Room Air 11/12/19 08:00 99.0 83 19 110/60 (77) 97 Intake and Output 11/13/19 11/14/19 19:00 07:00 Intake Total 100 ml Output Total 800 ml 1000 ml Balance -800 ml -900 ml IV Total 100 ml Output Urine Total 800 ml 1000 ml # Bowel Movements 2 Labs Test 11/12/19 07:05 11/12/19 16:30 11/13/19 02:00 White Blood Count 13.1 K/UL (4.8-10.8) 10.5 K/UL (4.8-10.8) Red Blood Count 3.23 M/UL (4.70-6.10) 3.32 M/UL (4.70-6.10) Hemoglobin 8.8 G/DL (14.2-18.0) 9.2 G/DL (14.2-18.0) Hematocrit 27.8 % (42.0-52.0) 28.5 % (42.0-52.0) Mean Corpuscular Volume 86 FL (80-99) 86 FL (80-99) Mean Corpuscular Hemoglobin 27.2 PG (27.0-31.0) 27.8 PG (27.0-31.0) Mean Corpuscular Hemoglobin Concent 31.6 G/DL (32.0-36.0) 32.4 G/DL (32.0-36.0) Red Cell Distribution Width 16.2 % (11.6-14.8) 16.3 % (11.6-14.8) Platelet Count 547 K/UL (150-450) 608 K/UL (150-450) Mean Platelet Volume 4.8 FL (6.5-10.1) 4.7 FL (6.5-10.1) Neutrophils (%) (Auto) 71.7 % (45.0-75.0) 61.4 % (45.0-75.0) Lymphocytes (%) (Auto) 18.0 % (20.0-45.0) 27.8 % (20.0-45.0) Monocytes (%) (Auto) 7.2 % (1.0-10.0) 7.1 % (1.0-10.0) Eosinophils (%) (Auto) 1.8 % (0.0-3.0) 2.6 % (0.0-3.0) Basophils (%) (Auto) 1.3 % (0.0-2.0) 1.1 % (0.0-2.0) Urine Color Nadia Urine Appearance Slightly cloudy Urine pH 6.5 (4.5-8.0) Urine Specific [place] 1.010 (1.005-1.035) Urine Protein 2+ (NEGATIVE) Urine Glucose (UA) Negative (NEGATIVE) Urine Ketones Negative (NEGATIVE) Urine Blood 1+ (NEGATIVE) Urine Nitrite Negative (NEGATIVE) Urine Bilirubin Negative (NEGATIVE) Urine Ictotest Negative (NEGATIVE) Urine Urobilinogen Normal MG/DL (0.0-1.0) Urine Leukocyte Esterase Negative (NEGATIVE) Urine RBC 2-4 /HPF (0 - 0) Urine WBC 0-2 /HPF (0 - 0) Urine Squamous Epithelial Cells None /LPF (NONE/OCC) Urine Amorphous Sediment Many /LPF (NONE) Urine Bacteria Moderate /HPF (NONE) Sodium Level 131 MMOL/L (136-145) Potassium Level 4.0 MMOL/L (3.5-5.1) Chloride Level 94 MMOL/L (98-107) Carbon Dioxide Level 29 MMOL/L (21-32) Anion Gap 8 mmol/L (5-15) Blood Urea Nitrogen 18 mg/dL (7-18) Creatinine 0.9 MG/DL (0.55-1.30) Estimat Glomerular Filtration Rate > 60 mL/min (>60) Glucose Level 123 MG/DL (74-106) Calcium Level 10.5 MG/DL (8.5-10.1) Total Bilirubin 0.4 MG/DL (0.2-1.0) Aspartate Amino Transf (AST/SGOT) 20 U/L (15-37) Alanine Aminotransferase (ALT/SGPT) 28 U/L (12-78) Alkaline Phosphatase 396 U/L (46-116) Total Protein 9.0 G/DL (6.4-8.2) Albumin 2.1 G/DL (3.4-5.0) Globulin 6.9 g/dL Albumin/Globulin Ratio 0.3 (1.0-2.7) Vancomycin Level Trough 8.6 ug/mL (5.0-12.0) Height (Feet): 5 Height (Inches): 7.00 Weight (Pounds): 114 Objective Physical Exam General Appearance: lethargic Lines, tubes and drains: peripheral, central line HEENT: normocephalic Neck: non-tender, normal alignment Respiratory/Chest: lungs clear Cardiovascular/Chest: normal peripheral pulses, normal rate, regular rhythm Abdomen: normal bowel sounds, non tender ++ llq colostomy Martínez Capps MD Nov 14, 2019 07:41
[2019-11-14] MEDS: Fluconazole 100mg tab ORAL SCH (08:58)
[2019-11-14] MEDS: Desmopressin Nasal 5ml NASAL SCH (08:58)
[2019-11-14] MEDS: Zinc Sulfate 220mg ORAL SCH (08:59)
[2019-11-14] MEDS: Ascorbic Acid 500mg tab ORAL SCH (08:59)
[2019-11-14] MEDS: Docusate 100mg cap ORAL SCH ×2 (08:59→21:00)
[2019-11-14] MEDS: Sodium Chloride 1gm Tab ORAL SCH ×3 (08:59→17:05)
[2019-11-14] MEDS: Heparin 5000 units/ml inj SUBQ SCH ×2 (09:00→21:00)
[2019-11-14] MEDS: Dakin's 0.125% Soln (Quarter Strength) 16oz TOPIC SCH (09:00)
[2019-11-14] MEDS: HYDROcodone/Acetamin 5/325 tab ORAL PRN ×2 (09:14→21:27)
--- NOTE | 2019-11-14 11:24 | Pulmonology Progress Note ---
Subjective ROS Limited/Unobtainable: No Interval Events: no new complaints Constitutional: Reports: fatigue; Denies: fever HEENT: Repors: no symptoms Respiratory: Reports: no symptoms Cardiovascular: Reports: no symptoms Gastrointestinal/Abdominal: Denies: nausea, vomiting, diarrhea Genitourinary: Reports: no symptoms Psychiatric: Denies: depression Skin: Denies: rash Musculoskeletal: Denies: pain Allergies: Coded Allergies: No Known Allergies (Unverified , 08/15/19) All Systems: reviewed and negative except above Objective Last 24 Hour Vital Signs Date Time Temp Pulse Resp B/P (MAP) Pulse Ox O2 Delivery O2 Flow Rate FiO2 11/14/19 09:00 Room Air 11/14/19 08:00 102.0 86 18 100/59 (73) 96 11/14/19 04:00 100.1 91 22 104/67 (79) 97 11/14/19 00:15 98.1 91 22 108/61 (77) 97 11/13/19 21:00 Room Air 11/13/19 20:00 98.2 94 22 131/73 (92) 96 11/13/19 16:00 98.0 84 19 117/73 (88) 97 11/13/19 12:00 97.8 81 20 114/70 (85) 98 Intake and Output 11/13/19 11/14/19 19:00 07:00 Intake Total 100 ml Output Total 800 ml 1000 ml Balance -800 ml -900 ml IV Total 100 ml Output Urine Total 800 ml 1000 ml # Bowel Movements 2 General Appearance: no acute distress HEENT: normocephalic Respiratory: chest wall non-tender, lungs clear Cardiovascular: normal peripheral pulses, regular rhythm Abdomen: normal bowel sounds Extremities: no cyanosis Microbiology Date/Time Source Procedure Growth Status 11/13/19 02:00 Blood Blood Culture - Preliminary NO GROWTH AFTER 24 HOURS Resulted 11/13/19 01:50 Blood Blood Culture - Preliminary NO GROWTH AFTER 24 HOURS Resulted 11/12/19 16:30 Indwelling Cath Urine Culture - Preliminary Resulted Current Medications Medications (Trade) Dose Ordered Sig/Mya Route PRN Reason Start Time Stop Time Status Last Admin Dose Admin Acetaminophen (Tylenol) 650 mg Q4H PRN ORAL Mild Pain (Pain Scale 1-3) 11/05/19 14:00 11/30/19 13:59 11/14/19 08:59 Acetaminophen (Tylenol) 650 mg Q4H PRN ORAL Temp >100.5 11/05/19 16:00 12/05/19 15:59 11/11/19 16:39 Acetaminophen/ Hydrocodone Bitart ([place] 5/325) 2 tab Q4H PRN ORAL Severe Pain (Pain Scale 7-10) 11/08/19 15:45 11/15/19 15:44 11/14/19 09:14 Ascorbic Acid (Vitamin C) 500 mg DAILY ORAL 11/06/19 09:00 11/23/19 08:59 11/14/19 08:59 Baclofen (Lioresal) 10 mg THREE TIMES A DAY ORAL 11/05/19 18:00 11/22/19 17:59 11/14/19 08:59 Chlorhexidine Gluconate (Simran-Hex 2%) 1 applic DAILY@1999 TOPIC 11/13/19 20:00 02/11/20 19:59 11/13/19 21:13 Desmopressin Acetate (Ddavp) 1 spray DAILY NASAL 11/14/19 09:00 02/07/20 17:59 11/14/19 08:58 Dextrose (Dextrose 50%) 25 ml Q30M PRN IV Hypoglycemia 11/05/19 13:30 01/21/20 17:29 Dextrose (Dextrose 50%) 50 ml Q30M PRN IV Hypoglycemia 11/05/19 13:30 01/21/20 17:29 Diphenhydramine HCl (Benadryl) 25 mg Q6H PRN ORAL Itching/Pruritis 11/05/19 14:00 11/22/19 07:54 Docusate Sodium (Colace) 100 mg EVERY 12 HOURS ORAL 11/05/19 21:00 11/22/19 20:59 11/14/19 08:59 Famotidine (Pepcid) 20 mg DAILY ORAL 11/06/19 09:00 01/28/20 09:29 11/14/19 08:59 Ferrous Sulfate (Feosol) 325 mg DAILY ORAL 11/06/19 09:00 01/22/20 08:59 11/14/19 08:59 Gabapentin (Neurontin) 400 mg Q8HR ORAL 11/05/19 14:00 12/03/19 21:59 11/14/19 05:30 Heparin Sodium (Porcine) (Heparin 5000 units/ml) 5,000 units EVERY 12 HOURS SUBQ 11/05/19 21:00 12/08/19 08:59 11/14/19 09:00 Heparin Sodium/ Sodium Chloride (Heparin 1000 units/500ml Premix) 1,000 unit ONCE PRN IV for picc line placement 11/12/19 22:00 11/14/19 21:59 Lidocaine HCl (Xylocaine 1% 30ml) 1 ml ONCE PRN INJ for picc line placement 11/12/19 22:00 11/14/19 21:59 Magnesium Hydroxide (Mom) 30 ml HSPRN PRN ORAL Constipation 11/13/19 11:15 12/13/19 11:14 Midodrine (Pro-Amatine) 10 mg EVERY 8 HOURS ORAL 11/05/19 14:00 01/21/20 17:59 11/14/19 05:30 Ondansetron HCl (Zofran) 4 mg Q6H PRN IVP Nausea & Vomiting 11/05/19 14:00 11/22/19 07:57 Sodium Hypochlorite (Dakin's Quarter Strength) 1 applic DAILY TOPIC 11/06/19 09:00 11/24/19 08:59 11/14/19 09:00 Sodium Chloride (NaCl) 1 gm THREE TIMES A DAY ORAL 11/09/19 13:00 12/09/19 12:59 11/14/19 08:59 Zinc Sulfate (Zinc Sulfate) 220 mg DAILY ORAL 11/06/19 09:00 01/22/20 08:59 11/14/19 08:59 Assessment/Plan Assessment/Plan IMPRESSION: 1. Septic shock. resolved 2. Complicated UTI with history of previous ESBL infection. 3. Paraplegia. 4. Sacral decubitus. 5. skilled nursing resident. DISCUSSION: DVT and GI prophylaxes. ID consult and follow-up noted. I will follow carefully. Continue Oxygen, doing well on room air at this time. Haily Monzon Omar Syed MD Nov 14, 2019 11:24
--- NOTE | 2019-11-14 13:23 | Nephrology Progress Note ---
Assessment/Plan Plan #Polyuria - r/o DI vs dopamine effect??- however sodium remains in normal range #Shock #UTI # infected sacral pressure ulcer #Acute metabolic encephalopathy #Paraplegia #Sacral pressure ulcer #Hypokalemia #Anemia - 1L NS now - add florinef 0.1mg daily -Continue desmopressin nasal and salt tabs 1g TID - continue midodrine 10 TID - transfer to ICU - antibiotics per ID - monitor lytes - avoid nephrotoxins - daily weights - strict I&Os time spent 70 min- greater than 50% on care coordination and counseling Subjective ROS Limited/Unobtainable: Yes Subjective UOP 1800 hypotensive will give additiona 1L sodium 131 will add florinef 0.1mg daily on nasal desmopressin on salt tabs Objective Objective Last 24 Hour Vital Signs Date Time Temp Pulse Resp B/P (MAP) Pulse Ox O2 Delivery O2 Flow Rate FiO2 11/14/19 13:09 98.1 61 20 81/45 (57) 99 11/14/19 12:00 98.0 98 18 88/51 (63) 97 11/14/19 09:29 99.3 11/14/19 09:00 Room Air 11/14/19 08:00 102.0 86 18 100/59 (73) 96 11/14/19 04:00 100.1 91 22 104/67 (79) 97 11/14/19 00:15 98.1 91 22 108/61 (77) 97 11/13/19 21:00 Room Air 11/13/19 20:00 98.2 94 22 131/73 (92) 96 11/13/19 16:00 98.0 84 19 117/73 (88) 97 Intake and Output 11/13/19 11/14/19 19:00 07:00 Intake Total 100 ml Output Total 800 ml 1000 ml Balance -800 ml -900 ml IV Total 100 ml Output Urine Total 800 ml 1000 ml # Bowel Movements 2 Height (Feet): 5 Height (Inches): 7.00 Weight (Pounds): 114 Sienna Georges M.D. Nov 14, 2019 13:23
--- NOTE | 2019-11-14 13:37 | General Progress Note ---
Assessment/Plan Problem List: (1) Septic shock ICD Codes: A41.9 - Sepsis, unspecified organism; R65.21 - Severe sepsis with septic shock SNOMED: 83700108 (2) Anemia ICD Codes: D64.9 - Anemia, unspecified SNOMED: 262700792 (3) Encephalopathy ICD Codes: G93.40 - Encephalopathy, unspecified SNOMED: 89057318 (4) Drug (multiple) resistant infection SNOMED: 49605072, 15823000081338 (5) Urinary tract infection in male ICD Codes: N39.0 - Urinary tract infection, site not specified SNOMED: 42615641, 244176884 (6) Hypokalemia ICD Codes: E87.6 - Hypokalemia SNOMED: 08620996 (7) Femur fracture ICD Codes: S72.90XA - Unspecified fracture of unspecified femur, initial encounter for closed fracture SNOMED: 48767094 (8) Hyponatremia ICD Codes: E87.1 - Hypo-osmolality and hyponatremia SNOMED: 74421740 (9) Sepsis ICD Codes: A41.9 - Sepsis, unspecified organism SNOMED: 72669057 (10) UTI (urinary tract infection) ICD Codes: N39.0 - Urinary tract infection, site not specified SNOMED: 39265650 (11) Hypotension ICD Codes: I95.9 - Hypotension, unspecified SNOMED: 83673606 (12) Decubital ulcer ICD Codes: L89.90 - Pressure ulcer of unspecified site, unspecified stage SNOMED: 045363563 (13) SEAN (acute kidney injury) ICD Codes: N17.9 - Acute kidney failure, unspecified SNOMED: 6060755, 02641500 Status: stable Assessment/Plan: 59 year old man who presents from T with weakness, encephalopathy, concern for septic shock, possible from UTI vs infected sacral pressure ulcer. DC held due to hypotention and fever now transfering to ICU #Septic shock- reoccured #Proteus UTI #Acute metabolic encephalopathy -improving #Paraplegia #Sacral pressure ulcer, present on admit -DC planning held due to hypotention and fever. -Transfer to ICU -off amikacin, continue meropenem and vancomycin -Spoke with surgery, sacral pressure ulcer does not appear to be infected -Local wound care and offloading #Sinus Bradycardia - resolved -continue telemetry -EP following #Hyponatremia #Hypokalemia -improving -refusing labs sometime -Replete when necessary -On DDAVP intranasal #Anemia, acute on chronic -2 units RBC 10/28 -Hematology following I spent 75 minutes on this patient's care today , and 50 mins was dedicated to counseling and care coordination with critical care time. Discussed with all consultants, Charge nurse and RNs. Coordinated with SNF. Reviewed imaging and titrating pressors and facilitated transfer to ICU. Subjective Date patient seen: Nov 14, 2019 Time patient seen: 09:00 Constitutional: Reports: fever; Denies: chills, malaise, weakness HEENT: Denies: double vision Cardiovascular: Denies: edema, irregular heart rate, lightheadedness, palpitations Respiratory: Denies: orthopnea, shortness of breath, SOB with excertion Gastrointestinal/Abdominal: Denies: abdominal pain, black stools, blood in stool Genitourinary: Denies: burning, discharge, frequency, flank pain Neurologic/Psychiatric: Denies: depressed, emotional problems, headache, numbness, paresthesia Endocrine: Denies: flushing, intolerance to cold, intolerance to heat Hematologic/Lymphatic: Reports: anemia Allergies: Coded Allergies: No Known Allergies (Unverified , 08/15/19) Subjective Feeling feverish. but no other complaints. Objective Last 24 Hour Vital Signs Date Time Temp Pulse Resp B/P (MAP) Pulse Ox O2 Delivery O2 Flow Rate FiO2 11/14/19 13:09 98.1 61 20 81/45 (57) 99 11/14/19 12:00 98.0 98 18 88/51 (63) 97 11/14/19 09:29 99.3 11/14/19 09:00 Room Air 11/14/19 08:00 102.0 86 18 100/59 (73) 96 11/14/19 04:00 100.1 91 22 104/67 (79) 97 11/14/19 00:15 98.1 91 22 108/61 (77) 97 11/13/19 21:00 Room Air 11/13/19 20:00 98.2 94 22 131/73 (92) 96 11/13/19 16:00 98.0 84 19 117/73 (88) 97 Intake and Output 11/13/19 11/14/19 19:00 07:00 Intake Total 100 ml Output Total 800 ml 1000 ml Balance -800 ml -900 ml IV Total 100 ml Output Urine Total 800 ml 1000 ml # Bowel Movements 2 Height (Feet): 5 Height (Inches): 7.00 Weight (Pounds): 114 General Appearance: no apparent distress, alert, cachetic EENT: normal ENT inspection, TMs normal Neck: non-tender, supple, normal inspection Cardiovascular: normal peripheral pulses, normal rate, regular rhythm, no gallop/murmur, no JVD Respiratory/Chest: lungs clear, normal breath sounds, no respiratory distress, no accessory muscle use Abdomen: normal bowel sounds, soft, no organomegaly, no mass, abnormal bowel sounds Pelvis: normal external exam Edema: no edema noted Arm (L), no edema noted Arm (R), no edema noted Leg (L), no edema noted Leg (R), no edema noted Pedal (L), no edema noted Pedal (R), no edema noted Generalized Neurologic: abnormal gait, alert, oriented x 3, normal mood/affect Art Hensley M.D. Nov 14, 2019 13:37
--- NOTE | 2019-11-14 14:10 | Cardiac Electrophysiology PN ---
Assessment/Plan Assessment/Plan 1. S/P Septic shock. On Midodrine and antibiotic via PICC line BP dropping again. If BP still less than 90 after 1 liter of NS, will transfer to ICU for Levo 2. Bradycardia. Resolved. 3. Paraplegia. 4. Urinary tract infection, 5. Decubitus ulcers with sacral decubitus. 6. S/P Ileostomy/ 7. Polyuria, DI. On NS, Salt tablets DW RN Subjective Subjective Alert in NAD. RN at bedside.S/P PICC line yesterday. BP running in 80s and getting second 500 cc bag of NS Objective Last 24 Hour Vital Signs Date Time Temp Pulse Resp B/P (MAP) Pulse Ox O2 Delivery O2 Flow Rate FiO2 11/14/19 13:09 98.1 61 20 81/45 (57) 99 11/14/19 12:00 98.0 98 18 88/51 (63) 97 11/14/19 09:29 99.3 11/14/19 09:00 Room Air 11/14/19 08:00 102.0 86 18 100/59 (73) 96 11/14/19 04:00 100.1 91 22 104/67 (79) 97 11/14/19 00:15 98.1 91 22 108/61 (77) 97 11/13/19 21:00 Room Air 11/13/19 20:00 98.2 94 22 131/73 (92) 96 11/13/19 16:00 98.0 84 19 117/73 (88) 97 Intake and Output 11/13/19 11/14/19 19:00 07:00 Intake Total 100 ml Output Total 800 ml 1000 ml Balance -800 ml -900 ml IV Total 100 ml Output Urine Total 800 ml 1000 ml # Bowel Movements 2 Microbiology Date/Time Source Procedure Growth Status 11/13/19 02:00 Blood Blood Culture - Preliminary NO GROWTH AFTER 24 HOURS Resulted 11/13/19 01:50 Blood Blood Culture - Preliminary NO GROWTH AFTER 24 HOURS Resulted 11/12/19 16:30 Indwelling Cath Urine Culture - Preliminary Resulted Objective HEAD AND NECK: No JVD. LUNGS: Coarse rhonchi. CARDIOVASCULAR: Regular S1 and S2 with no gallop. ABDOMEN: Soft.S/P Ileostomy EXTREMITIES: No pitting edema, however, has pressure ulcers. Carloz Estes MD Nov 14, 2019 14:10
--- NOTE | 2019-11-14 14:19 | Infectious Diseases Prog Note ---
Assessment/Plan Assessment/Plan ASSESSMENT AND PLAN: 1. hx sepsis/shock, hx proteus uti, hx esbl e.coli uti, possible aspiration pna/ hcap vs cap, sacral wound - ? 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 fungemia bp low again, fevers persist, ? new line infection, ? adrenal insufficiency covid-19 testing negative - change to vancomycin, cefepime and flagyl - treat for adrenal insufficiency - re-culture, monitor labs and chest x-ray - icu care - communicated with Dr. Harrison - d/w RN - wound care per surgery - may need to change line again, especially if blood cultures + 2. ICU care. 3. Sacral wound -wound mostly clean, management per surgery 4. Ostomy malfunction - per surgery 5. Hypertension. 6. Paraplegia. 7. Anemia. 8. History of decubitus ulcer, rule out infection. Infectious diseases is following. The patient on antibiotics. 9. Hypertension treatment per primary care team. 10. Continue treatment per primary consultants. 11. No known drug allergies. 12. Social history is negative. 13. Family history is noncontributory. 14. MAR was noted. 15. Case discussed with RN. Subjective Constitutional: Reports: fever HEENT: Denies: congestion Respiratory: Denies: shortness of breath Cardiovascular: Denies: chest pain Gastrointestinal/Abdominal: Denies: nausea, diarrhea Genitourinary: Reports: other - + donohue Neurologic: Denies: headache Psychiatric: Denies: depression Skin: Denies: rash Hematologic: Denies: bleeding Musculoskeletal: Denies: pain Allergies: Coded Allergies: No Known Allergies (Unverified , 08/15/19) Objective Last 24 Hour Vital Signs Date Time Temp Pulse Resp B/P (MAP) Pulse Ox O2 Delivery O2 Flow Rate FiO2 11/14/19 13:09 98.1 61 20 81/45 (57) 99 11/14/19 12:00 98.0 98 18 88/51 (63) 97 11/14/19 09:29 99.3 11/14/19 09:00 Room Air 11/14/19 08:00 102.0 86 18 100/59 (73) 96 11/14/19 04:00 100.1 91 22 104/67 (79) 97 11/14/19 00:15 98.1 91 22 108/61 (77) 97 11/13/19 21:00 Room Air 11/13/19 20:00 98.2 94 22 131/73 (92) 96 11/13/19 16:00 98.0 84 19 117/73 (88) 97 Height (Feet): 5 Height (Inches): 7.00 Weight (Pounds): 114 General Appearance: no acute distress HEENT: normocephalic, atraumatic, anicteric, mucous membranes moist Respiratory/Chest: no respiratory distress, no accessory muscle use, decreased breath sounds, crackles/rales, rhonchi - bilaterally Cardiovascular: normal rate, regular rhythm, no gallop/murmur, no JVD Abdomen: normal bowel sounds, soft, non tender, no organomegaly, non distended Genitourinary: other - + donohue - urine slt cloudy Extremities: no cyanosis Skin: no rash Neurologic/Psychiatric: chha II-XII grossly normal, alert, responsive Lymphatic: no neck adenopathy Musculoskeletal: no effusion Chest x-ray - 10/25/19 - Procedure: XRAY Chest 1v Indication: Shortness of breath Technique: One view of the chest Comparison: 10/23/2019 Findings: There are bilateral basilar infiltrates, which appear new or increased since prior study. There is some atelectasis at the left lung base as well. Right jugular central venous catheter remains. The heart size is normal. Impression: New/increased bilateral basilar infiltrates, since prior study 2019 Chest x-ray - 10/27/19 - Procedure: XRAY Chest 1v Indication: Shortness of breath Technique: One view of the chest Comparison: 10/25/2019 Findings: There is atelectasis possibly some focal consolidation at the right lung base. Atelectatic changes previously demonstrated at the left lung base have largely cleared. Right jugular central venous catheter remains. The heart size is normal. Impression: Improving left basilar atelectasis. Otherwise little globe changer 2 days findings as noted Chest x-ray - 10/29/19 - FINDINGS: Lungs: Persistent subsegmental atelectasis in bilateral lower lungs, not significant changed compared to the prior exam. No new consolidation is seen. Pleural space: Unremarkable. The costophrenic angles are sharp. No visible pneumothorax. Heart: Unremarkable. No cardiomegaly. Mediastinum: Unremarkable. Bones/joints: Unremarkable. Vasculature: Mild atherosclerotic calcifications are noted within the aortic arch. Tubes, lines and devices: Stable positioning of a right IJ central venous catheter with the tip in the SVC. Telemetry leads overlie the thorax. IMPRESSION: Persistent subsegmental atelectasis in bilateral lower lungs, not significantly changed compared to the prior exam. Chest x-rasy - 11/03/19 - Procedure: XRAY Chest 1v Indication: Cough Technique: One view of the chest Comparison: 10/29/2019 Findings: There are increased atelectatic changes at the lung bases. Interim removal of previously demonstrated central venous catheter. The pleural spaces are clear. The heart size is normal. Impression: Increasing bilateral basilar atelectasis Interim central venous catheter removal. Chest x-ray - 11/07/19 - Procedure: XRAY Chest 1v Indication: Shortness of breath Technique: One view of the chest Comparison: 11/03/2019 Findings: Bilateral basilar atelectatic changes appear similar to the previous exam. There may be some patchy left perihilar and bilateral peripheral consolidation. The heart size is normal. Impression: New or increased faint patchy peripheral and left perihilar consolidative opacities, possibly reflecting multifocal pneumonia, since prior study 03/04/2019 Persistent bilateral basilar atelectatic changes Chest x-ray - 11/09/19 - Procedure: XRAY Chest 1v Indication: Cough Technique: One view of the chest Comparison: 11/07/2019 Findings: There is improved aeration of the lung bases, although some atelectasis persists bilaterally. No new infiltrates. The pleural spaces are clear. The heart size is normal. Impression: Improved aeration with decreased basilar atelectasis Chest x-ray - 11/14/19 - Procedure: XRAY Chest 1v Indication: Cough Technique: One view of the chest Comparison: 11/09/2019 Findings: Bilateral basilar atelectasis has increased. No new infiltrates. The pleural spaces remain clear. The heart size is normal. Impression: Increased bilateral basilar atelectasis, since prior study 11/09/2019 Microbiology Date/Time Source Procedure Growth Status 11/13/19 02:00 Blood Blood Culture - Preliminary NO GROWTH AFTER 24 HOURS Resulted 11/02/19 13:30 Nasopharynx SARS-CoV-2 RdRp Gene Assay - Final Complete 11/12/19 16:30 Indwelling Cath Urine Culture - Preliminary Resulted 11/03/19 08:00 Catheter Site Catheter Tip Culture - Final Staphylococcus Sp Coag Neg Complete Microbiology Date/Time Source Procedure Growth Status 11/13/19 02:00 Blood Blood Culture - Preliminary NO GROWTH AFTER 24 HOURS Resulted 11/13/19 01:50 Blood Blood Culture - Preliminary NO GROWTH AFTER 24 HOURS Resulted 11/12/19 16:30 Indwelling Cath Urine Culture - Preliminary Resulted Labs Test 11/12/19 07:05 11/12/19 16:30 11/13/19 02:00 White Blood Count 13.1 K/UL (4.8-10.8) 10.5 K/UL (4.8-10.8) Red Blood Count 3.23 M/UL (4.70-6.10) 3.32 M/UL (4.70-6.10) Hemoglobin 8.8 G/DL (14.2-18.0) 9.2 G/DL (14.2-18.0) Hematocrit 27.8 % (42.0-52.0) 28.5 % (42.0-52.0) Mean Corpuscular Volume 86 FL (80-99) 86 FL (80-99) Mean Corpuscular Hemoglobin 27.2 PG (27.0-31.0) 27.8 PG (27.0-31.0) Mean Corpuscular Hemoglobin Concent 31.6 G/DL (32.0-36.0) 32.4 G/DL (32.0-36.0) Red Cell Distribution Width 16.2 % (11.6-14.8) 16.3 % (11.6-14.8) Platelet Count 547 K/UL (150-450) 608 K/UL (150-450) Mean Platelet Volume 4.8 FL (6.5-10.1) 4.7 FL (6.5-10.1) Neutrophils (%) (Auto) 71.7 % (45.0-75.0) 61.4 % (45.0-75.0) Lymphocytes (%) (Auto) 18.0 % (20.0-45.0) 27.8 % (20.0-45.0) Monocytes (%) (Auto) 7.2 % (1.0-10.0) 7.1 % (1.0-10.0) Eosinophils (%) (Auto) 1.8 % (0.0-3.0) 2.6 % (0.0-3.0) Basophils (%) (Auto) 1.3 % (0.0-2.0) 1.1 % (0.0-2.0) Urine Color Nadia Urine Appearance Slightly cloudy Urine pH 6.5 (4.5-8.0) Urine Specific [place] 1.010 (1.005-1.035) Urine Protein 2+ (NEGATIVE) Urine Glucose (UA) Negative (NEGATIVE) Urine Ketones Negative (NEGATIVE) Urine Blood 1+ (NEGATIVE) Urine Nitrite Negative (NEGATIVE) Urine Bilirubin Negative (NEGATIVE) Urine Ictotest Negative (NEGATIVE) Urine Urobilinogen Normal MG/DL (0.0-1.0) Urine Leukocyte Esterase Negative (NEGATIVE) Urine RBC 2-4 /HPF (0 - 0) Urine WBC 0-2 /HPF (0 - 0) Urine Squamous Epithelial Cells None /LPF (NONE/OCC) Urine Amorphous Sediment Many /LPF (NONE) Urine Bacteria Moderate /HPF (NONE) Sodium Level 131 MMOL/L (136-145) Potassium Level 4.0 MMOL/L (3.5-5.1) Chloride Level 94 MMOL/L (98-107) Carbon Dioxide Level 29 MMOL/L (21-32) Anion Gap 8 mmol/L (5-15) Blood Urea Nitrogen 18 mg/dL (7-18) Creatinine 0.9 MG/DL (0.55-1.30) Estimat Glomerular Filtration Rate > 60 mL/min (>60) Glucose Level 123 MG/DL (74-106) Calcium Level 10.5 MG/DL (8.5-10.1) Total Bilirubin 0.4 MG/DL (0.2-1.0) Aspartate Amino Transf (AST/SGOT) 20 U/L (15-37) Alanine Aminotransferase (ALT/SGPT) 28 U/L (12-78) Alkaline Phosphatase 396 U/L (46-116) Total Protein 9.0 G/DL (6.4-8.2) Albumin 2.1 G/DL (3.4-5.0) Globulin 6.9 g/dL Albumin/Globulin Ratio 0.3 (1.0-2.7) Vancomycin Level Trough 8.6 ug/mL (5.0-12.0) Current Medications Medications (Trade) Dose Ordered Sig/Mya Route PRN Reason Start Time Stop Time Status Last Admin Dose Admin Acetaminophen (Tylenol) 650 mg Q4H PRN ORAL Mild Pain (Pain Scale 1-3) 11/05/19 14:00 11/30/19 13:59 11/14/19 08:59 Acetaminophen (Tylenol) 650 mg Q4H PRN ORAL Temp >100.5 11/05/19 16:00 12/05/19 15:59 11/11/19 16:39 Acetaminophen/ Hydrocodone Bitart ([place] 5/325) 2 tab Q4H PRN ORAL Severe Pain (Pain Scale 7-10) 11/08/19 15:45 11/15/19 15:44 11/14/19 09:14 Ascorbic Acid (Vitamin C) 500 mg DAILY ORAL 11/06/19 09:00 11/23/19 08:59 11/14/19 08:59 Baclofen (Lioresal) 10 mg THREE TIMES A DAY ORAL 11/05/19 18:00 11/22/19 17:59 11/14/19 12:43 Chlorhexidine Gluconate (Simran-Hex 2%) 1 applic DAILY@1999 TOPIC 11/13/19 20:00 02/11/20 19:59 11/13/19 21:13 Desmopressin Acetate (Ddavp) 1 spray DAILY NASAL 11/14/19 09:00 02/07/20 17:59 11/14/19 08:58 Dextrose (Dextrose 50%) 25 ml Q30M PRN IV Hypoglycemia 11/05/19 13:30 01/21/20 17:29 Dextrose (Dextrose 50%) 50 ml Q30M PRN IV Hypoglycemia 11/05/19 13:30 01/21/20 17:29 Diphenhydramine HCl (Benadryl) 25 mg Q6H PRN ORAL Itching/Pruritis 11/05/19 14:00 11/22/19 07:54 Docusate Sodium (Colace) 100 mg EVERY 12 HOURS ORAL 11/05/19 21:00 11/22/19 20:59 11/14/19 08:59 Famotidine (Pepcid) 20 mg DAILY ORAL 11/06/19 09:00 01/28/20 09:29 11/14/19 08:59 Ferrous Sulfate (Feosol) 325 mg DAILY ORAL 11/06/19 09:00 01/22/20 08:59 11/14/19 08:59 Fludrocortisone Acetate (Florinef) 0.1 mg DAILY ORAL 11/15/19 09:00 12/15/19 08:59 Gabapentin (Neurontin) 400 mg Q8HR ORAL 11/05/19 14:00 12/03/19 21:59 11/14/19 05:30 Heparin Sodium (Porcine) (Heparin 5000 units/ml) 5,000 units EVERY 12 HOURS SUBQ 11/05/19 21:00 12/08/19 08:59 11/14/19 09:00 Heparin Sodium/ Sodium Chloride (Heparin 1000 units/500ml Premix) 1,000 unit ONCE PRN IV for picc line placement 11/12/19 22:00 11/14/19 21:59 Lidocaine HCl (Xylocaine 1% 30ml) 1 ml ONCE PRN INJ for picc line placement 11/12/19 22:00 11/14/19 21:59 Magnesium Hydroxide (Mom) 30 ml HSPRN PRN ORAL Constipation 11/13/19 11:15 12/13/19 11:14 Midodrine (Pro-Amatine) 10 mg EVERY 8 HOURS ORAL 11/05/19 14:00 01/21/20 17:59 11/14/19 13:02 Ondansetron HCl (Zofran) 4 mg Q6H PRN IVP Nausea & Vomiting 11/05/19 14:00 11/22/19 07:57 Sodium Hypochlorite (Dakin's Quarter Strength) 1 applic DAILY TOPIC 11/06/19 09:00 11/24/19 08:59 11/14/19 09:00 Sodium Chloride 1,000 ml @ 999 mls/hr Q1H1M ONCE IV 11/14/19 13:30 11/14/19 14:30 11/14/19 13:30 Sodium Chloride (NaCl) 1 gm THREE TIMES A DAY ORAL 11/09/19 13:00 12/09/19 12:59 11/14/19 12:43 Zinc Sulfate (Zinc Sulfate) 220 mg DAILY ORAL 11/06/19 09:00 01/22/20 08:59 11/14/19 08:59 Sharif Painting MD Nov 14, 2019 14:19
--- NOTE | 2019-11-14 15:50 | Surgery Progress Note ---
Surgery Progress Note Subjective Additional Comments picc line comfortable tolerating diet no complaints no n/v fevers 102 wbc resolved Objective Last 24 Hour Vital Signs Date Time Temp Pulse Resp B/P (MAP) Pulse Ox O2 Delivery O2 Flow Rate FiO2 11/14/19 15:07 98.2 18 100/58 (72) 97 11/14/19 13:09 98.1 61 20 81/45 (57) 99 11/14/19 12:00 98.0 98 18 88/51 (63) 97 11/14/19 09:29 99.3 11/14/19 09:00 Room Air 11/14/19 08:00 102.0 86 18 100/59 (73) 96 11/14/19 04:00 100.1 91 22 104/67 (79) 97 11/14/19 00:15 98.1 91 22 108/61 (77) 97 11/13/19 21:00 Room Air 11/13/19 20:00 98.2 94 22 131/73 (92) 96 11/13/19 16:00 98.0 84 19 117/73 (88) 97 I&O Intake and Output 11/13/19 11/14/19 19:00 07:00 Intake Total 100 ml Output Total 800 ml 1000 ml Balance -800 ml -900 ml IV Total 100 ml Output Urine Total 800 ml 1000 ml # Bowel Movements 2 Dressing: other Wound: other Cardiovascular: RSR Respiratory: decreased breath sounds Abdomen: soft, non-tender, present bowel sounds Extremities: no edema, no tenderness, no cyanosis Plan Problems: (1) Abdominal distension Assessment & Plan: abd distention soft non tender ostomy viable and reduced KUB ordered pending results improved comfortable no complaints okay for diet s tolerated d/c planning much improved There is an inferior vena cava filter in place. Bowel gas pattern is unremarkable. Considerable stool is seen in the transverse and distal colon. There is extensive pelvic deformity, with loss of the left femoral head, chronic dislocation of the left femur, and extensive pelvic deformity, particularly on the left. Adi project over the upper pelvis Impression: Possible constipation. pending placement Nonobstructed bowel gas pattern. Moderate fecal retention of the ascending colon and sigmoid colon. The degree of stool burden has increased from October 25, 2019. IVC filter, incidentally noted. Partial subluxation of the right hip. Osteotomy of the proximal left femur with deformity of the bilateral pubic rami and left acetabulum, unchanged. 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 [place] Shaped, Full Thickness Sacral Pressure Injury which extends into L ischium. (L)15.4cm x (W)18cm x (D)2.4cm, Undermining clockwise 10-2 by 7.7cm @ 11o'clock. Base of wound is moist,pink with scattered slough at base of wound. Bone is palpable at the Base. No odor or exudate noted. Scattered partial thickness wounds and Serous filled blisters noted to R trochanteric /R Hip areas. Historical scar noted to L groin, L Hip L Buttocks. Bony protrusion noted at L Hip. Full thickness Pressure Injury R Ischium(L)5.4cm x(W)6.9cm x (D)1.8cm, Undermining clockwise 1-4 by 2.7cm @2o'clock, Tunneling@7o'clock 2.9cm. Base of wound is moist pink with scattered slough. Scattered slough noted along borders. NO odor or exudate noted. Stable dry eschar noted to medial R knee 0.7cm x (W)0.4cm. Periwound is erythematous and indurated. No elevation in skin temp noted. L heel has shaved appearance secondary to Hx of Pressure Injuries. Base of heel is pale pink. Bone is palpable. Small area of slough noted within compromised area(L)0.6cm x (W)0.8cm. L Heel Also has shaved appearance with hypertrophic scarring. Base of compromised area is pale pink, Bone is palpable, with scattered loose, dry and scaly skin. Tx.Plan: Cleanse Sacral Wound and R Ischial wounds with Dakin's 0.125% gian. Loosely pack wounds with Hydrogel impregnated Kerlix. Apply Moisture Barrier Paste periwound. Cover with ABD Pads secure with Tegaderm drsg.Daily and prn. Apply Triad Paste to R Hip/R trochanteric areas.Cover with Optifoam drsg. Change every 7 days and prn. Apply Betadine to Medial R Knee. Cover with Optifoam drsg. Change every 7 days and prn. Apply Betadine to R and L Heels. Cover each Heel with Optifoam drsgs. Change every 7 days and prn. Cover Bony Prominences as needed with Optifoam drsgs. Reposition at least every 2 [address] tolerated[address] Pillow between knees. Off-load heels with pillow. APM/SUMI Mattress overlay DAILY ESTIMATED NEEDS: Needs based on Advanced wounds, wt loss/ 40.18kg 35-40 kcals/kg 3949-4447 total kcals 1.5-2.0 g protein/kg 60-80 g total protein 25-35ml/kcal mL/kg 9987-4219 total fluid mLs NUTRITION DIAGNOSIS: Increased kcal/prot/micronutrients needs R/T wound healing and underweight status as evidenced by pt admitted w/ multiple advanced wounds, refer to WC eval, pt now w/ further 3% unfavorable wt loss, currently BMI underweight per guidelines, @62% of [place] Body Weight. 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
[2019-11-14 17:47] LABS: APPEARANCE,URINE CLEAR; BILIRUBIN, URINE NEGATIVE (NEGATIVE); GLUCOSE, URINE (UA) NEGATIVE (NEGATIVE); KETONES,URINE 1+ (NEGATIVE); LEUKOCYTE ESTERASE ,URINE NEGATIVE (NEGATIVE); NITRITE,URINE NEGATIVE (NEGATIVE); PH,URINE 6.5 (4.5-8.0); PROTEIN,URINE 2+ (NEGATIVE); UROBILINOGEN,URINE NORMAL MG/DL (0.0-1.0)
[2019-11-14] MEDS: Vancomycin 1.25gm/NS Premix q24h IVPB SCH (17:49)
[2019-11-14 17:50] LABS: COLOR,URINE YELLOW
[2019-11-14] MEDS: Dyna-Hex 2% Top Sol 2oz TOPIC SCH (20:00)
[2019-11-15] VITALS: BP 100/50
[2019-11-15] MEDS: HYDROcodone/Acetamin 5/325 tab ORAL PRN ×4 (02:04→14:57)
[2019-11-15 04:00] VITALS: BP 94/51
[2019-11-15] MEDS: Midodrine 10mg tab ORAL SCH ×3 (06:20→22:21)
--- NOTE | 2019-11-15 07:08 | Hematology/Onc Progress Note ---
Assessment/Plan Assessment/Plan Assessment/recs # Anemia rule out gi bleed, as well as iron deficiency --> hgb 8.2-->7.2-->7.1->6.9-->8.6-->8.3-->9.3-->8.3-->9.3--.9.2 --> anemia panel ordered--> cw acd --> occult blood pending-->neg --> gi eval prn --> transfuse as needed --> transfuse 2 units 10/27 --> po iron to continue # Coagulopathy with elev ptt/inr --> vitk and ffp as needed --> no bleeding noted at this time # Thrombocytosis likely reactive process --> plt 398-->608-->605 --> abx as needed # Sepsis due to uti, with Hypotension likely due to septic shock. Was diuresing heavily at 300 mL an hour. --> Continue on midodrine and dopamine. --> ABX vancomycin and meropenem and amikacin-->christel/vanc/difluc --> before requires pressors --> as per cards # Bradycardia. --> per cards # Paraplegia. # Decubitus ulcers with sacral decubitus. # Dvt heparin sq Appreciate consultation and dw RN Subjective HEENT: Denies: no symptoms, eye pain, blurred vision, tearing, double vision, ear pain, ear discharge, nose pain, nose congestion, throat pain, throat swelling, mouth pain, mouth swelling, other Cardiovascular: Denies: no symptoms, chest pain, edema, irregular heart rate, lightheadedness, palpitations, syncope, other Respiratory: Denies: no symptoms, cough, shortness of breath, SOB with excertion, SOB at rest, sputum, wheezing, other Genitourinary: Denies: no symptoms, burning, discharge, frequency, flank pain, hematuria, incontinence, pain, urgency, other Neurologic/Psychiatric: Denies: no symptoms, anxiety, depressed, emotional problems, headache, numbness, paresthesia, pre-existing deficit, seizure, tingling, tremors, weakness, other Endocrine: Denies: no symptoms, excessive sweating, flushing, intolerance to cold, intolerance to heat, increased hunger, increased thirst, increased urine, unexplained weight gain, unexplained weight loss, other Hematologic/Lymphatic: Denies: no symptoms, anemia, easy bleeding, easy bruising, adenopathy, other Allergies: Coded Allergies: No Known Allergies (Unverified , 08/15/19) Subjective 10/27 labs again refused this am, yesterday was low, chandrakant england in icu 10/28 remains in icu, for 2units prbc this am, chandrakant england, no other events 10/29 s/p prbc, tolerated it well, no bleeding, on 1mcg levo, in icu 10/30 on abx, on levo and overnight no other events, 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\ 10/31 wounds improved, labs noted, no bleeding, hgb lower, refusing care/wound care 11/01 labs noted, no bleeding, no hematochezia, no hemoptysis, cbc ordered 11/02 meds reviewed, labs noted, no bleeding, chandrakant england, no major changes, hgb 8.3 11/04 labs have been noted, no bleeding, meds reviewed, no hemolysis 11/05 functional colostomy llq, no bleeding, cbc is pending for am 11/06 labs have been refused, hgb 8.3, no bleeding, wbc is higher in am 11/07 labs have initially been refused, no bleeding in am, wbc 13, on abx 11/08 labs reviewed, no bleeding, chandrakant england, cbc is pending for am 11/09 is on vanc/difl/christel, no other changes, cbc and bmp are noted 11/11 has been asymptomatic, eating breakfast, hgb 9.3, on abx 11/12 labs are noted, no bleeding, chandrakant england, no major changes, abx 11/13 is currently on christel and chandrakant is[place] rn, no major bleeding, on hep sq 11/14 labs are noted, does not want to be changed currently, cbc/bmp ordered Objective Objective Current Medications Medications (Trade) Dose Ordered Sig/Mya Route PRN Reason Start Time Stop Time Status Last Admin Dose Admin Acetaminophen (Tylenol) 650 mg Q4H PRN ORAL Mild Pain (Pain Scale 1-3) 11/05/19 14:00 11/30/19 13:59 11/14/19 08:59 Acetaminophen (Tylenol) 650 mg Q4H PRN ORAL Temp >100.5 11/05/19 16:00 12/05/19 15:59 11/11/19 16:39 Acetaminophen/ Hydrocodone Bitart (Trimont 5/325) 2 tab Q4H PRN ORAL Severe Pain (Pain Scale 7-10) 11/08/19 15:45 11/15/19 15:44 11/15/19 06:27 Ascorbic Acid (Vitamin C) 500 mg DAILY ORAL 11/06/19 09:00 11/23/19 08:59 11/14/19 08:59 Baclofen (Lioresal) 10 mg THREE TIMES A DAY ORAL 11/05/19 18:00 11/22/19 17:59 11/14/19 17:05 Cefepime HCl 2 gm/ Dextrose 100 ml @ 200 mls/hr Q8HR IVPB 11/14/19 15:00 11/21/19 14:59 11/15/19 05:03 Chlorhexidine Gluconate (Simran-Hex 2%) 1 applic DAILY@2000 TOPIC 11/13/19 20:00 02/11/20 19:59 11/13/19 21:13 Desmopressin Acetate (Ddavp) 1 spray DAILY NASAL 11/14/19 09:00 02/07/20 17:59 11/14/19 08:58 Dextrose (Dextrose 50%) 25 ml Q30M PRN IV Hypoglycemia 11/05/19 13:30 01/21/20 17:29 Dextrose (Dextrose 50%) 50 ml Q30M PRN IV Hypoglycemia 11/05/19 13:30 01/21/20 17:29 Diphenhydramine HCl (Benadryl) 25 mg Q6H PRN ORAL Itching/Pruritis 11/05/19 14:00 11/22/19 07:54 Docusate Sodium (Colace) 100 mg EVERY 12 HOURS ORAL 11/05/19 21:00 11/22/19 20:59 11/14/19 08:59 Famotidine (Pepcid) 20 mg DAILY ORAL 11/06/19 09:00 01/28/20 09:29 11/14/19 08:59 Ferrous Sulfate (Feosol) 325 mg DAILY ORAL 11/06/19 09:00 01/22/20 08:59 11/14/19 08:59 Fludrocortisone Acetate (Florinef) 0.1 mg DAILY ORAL 11/15/19 09:00 12/15/19 08:59 Gabapentin (Neurontin) 400 mg Q8HR ORAL 11/05/19 14:00 12/03/19 21:59 11/14/19 05:30 Heparin Sodium (Porcine) (Heparin 5000 units/ml) 5,000 units EVERY 12 HOURS SUBQ 11/05/19 21:00 12/08/19 08:59 11/14/19 09:00 Magnesium Hydroxide (Mom) 30 ml HSPRN PRN ORAL Constipation 11/13/19 11:15 12/13/19 11:14 Metronidazole 100 ml @ 100 mls/hr Q8HR IVPB 11/14/19 15:00 11/21/19 14:59 11/15/19 05:51 Midodrine (Pro-Amatine) 10 mg EVERY 8 HOURS ORAL 11/05/19 14:00 01/21/20 17:59 11/15/19 06:20 Ondansetron HCl (Zofran) 4 mg Q6H PRN IVP Nausea & Vomiting 11/05/19 14:00 11/22/19 07:57 Sodium Hypochlorite (Dakin's Quarter Strength) 1 applic DAILY TOPIC 11/06/19 09:00 11/24/19 08:59 11/14/19 09:00 Sodium Chloride (NaCl) 1 gm THREE TIMES A DAY ORAL 11/09/19 13:00 12/09/19 12:59 11/14/19 17:05 Vancomycin HCl (Vanco pharmacy to dose) 1 ea DAILY PRN MISC Per rx protocol 11/14/19 14:00 12/14/19 13:59 Vancomycin/Sodium Chloride 275 ml @ 183.333 mls/hr Q24H IVPB 11/14/19 16:00 11/19/19 15:59 11/14/19 17:49 Zinc Sulfate (Zinc Sulfate) 220 mg DAILY ORAL 11/06/19 09:00 01/22/20 08:59 11/14/19 08:59 Last 24 Hour Vital Signs Date Time Temp Pulse Resp B/P (MAP) Pulse Ox O2 Delivery O2 Flow Rate FiO2 11/15/19 04:00 101.7 85 18 94/51 (65) 96 11/15/19 00:00 99.5 74 18 100/50 (67) 96 11/14/19 21:00 Room Air 11/14/19 20:00 97.9 64 18 101/54 (70) 98 11/14/19 16:00 98.8 18 104/67 (79) 99 11/14/19 15:07 98.2 18 100/58 (72) 97 11/14/19 13:09 98.1 61 20 81/45 (57) 99 11/14/19 12:00 98.0 98 18 88/51 (63) 97 11/14/19 09:29 99.3 11/14/19 09:00 Room Air 11/14/19 08:00 102.0 86 18 100/59 (73) 96 11/14/19 04:00 100.1 91 22 104/67 (79) 97 11/14/19 00:15 98.1 91 22 108/61 (77) 97 11/13/19 21:00 Room Air 11/13/19 20:00 98.2 94 22 131/73 (92) 96 11/13/19 16:00 98.0 84 19 117/73 (88) 97 11/13/19 12:00 97.8 81 20 114/70 (85) 98 11/13/19 09:00 Room Air 11/13/19 08:00 97.4 93 20 118/69 (85) 100 Intake and Output 11/14/19 11/15/19 19:00 07:00 Intake Total 720 ml 800 ml Output Total 600 ml 1000 ml Balance 120 ml -200 ml Intake Oral 720 ml 600 ml IV Total 200 ml Output Urine Total 600 ml 1000 ml # Bowel Movements 2 Labs Test 11/12/19 16:30 11/13/19 02:00 11/14/19 17:00 Urine Color Nadia Yellow Urine Appearance Slightly cloudy Clear Urine pH 6.5 (4.5-8.0) 6.5 (4.5-8.0) Urine Specific [place] 1.010 (1.005-1.035) 1.010 (1.005-1.035) Urine Protein 2+ (NEGATIVE) 2+ (NEGATIVE) Urine Glucose (UA) Negative (NEGATIVE) Negative (NEGATIVE) Urine Ketones Negative (NEGATIVE) 1+ (NEGATIVE) Urine Blood 1+ (NEGATIVE) Negative (NEGATIVE) Urine Nitrite Negative (NEGATIVE) Negative (NEGATIVE) Urine Bilirubin Negative (NEGATIVE) Negative (NEGATIVE) Urine Ictotest Negative (NEGATIVE) Urine Urobilinogen Normal MG/DL (0.0-1.0) Normal MG/DL (0.0-1.0) Urine Leukocyte Esterase Negative (NEGATIVE) Negative (NEGATIVE) Urine RBC 2-4 /HPF (0 - 0) 0 /HPF (0 - 0) Urine WBC 0-2 /HPF (0 - 0) 0-2 /HPF (0 - 0) Urine Squamous Epithelial Cells None /LPF (NONE/OCC) None /LPF (NONE/OCC) Urine Amorphous Sediment Many /LPF (NONE) Few /LPF (NONE) Urine Bacteria Moderate /HPF (NONE) Occasional /HPF (NONE) White Blood Count 10.5 K/UL (4.8-10.8) Red Blood Count 3.32 M/UL (4.70-6.10) Hemoglobin 9.2 G/DL (14.2-18.0) Hematocrit 28.5 % (42.0-52.0) Mean Corpuscular Volume 86 FL (80-99) Mean Corpuscular Hemoglobin 27.8 PG (27.0-31.0) Mean Corpuscular Hemoglobin Concent 32.4 G/DL (32.0-36.0) Red Cell Distribution Width 16.3 % (11.6-14.8) Platelet Count 608 K/UL (150-450) Mean Platelet Volume 4.7 FL (6.5-10.1) Neutrophils (%) (Auto) 61.4 % (45.0-75.0) Lymphocytes (%) (Auto) 27.8 % (20.0-45.0) Monocytes (%) (Auto) 7.1 % (1.0-10.0) Eosinophils (%) (Auto) 2.6 % (0.0-3.0) Basophils (%) (Auto) 1.1 % (0.0-2.0) Sodium Level 131 MMOL/L (136-145) Potassium Level 4.0 MMOL/L (3.5-5.1) Chloride Level 94 MMOL/L (98-107) Carbon Dioxide Level 29 MMOL/L (21-32) Anion Gap 8 mmol/L (5-15) Blood Urea Nitrogen 18 mg/dL (7-18) Creatinine 0.9 MG/DL (0.55-1.30) Estimat Glomerular Filtration Rate > 60 mL/min (>60) Glucose Level 123 MG/DL (74-106) Calcium Level 10.5 MG/DL (8.5-10.1) Total Bilirubin 0.4 MG/DL (0.2-1.0) Aspartate Amino Transf (AST/SGOT) 20 U/L (15-37) Alanine Aminotransferase (ALT/SGPT) 28 U/L (12-78) Alkaline Phosphatase 396 U/L (46-116) Total Protein 9.0 G/DL (6.4-8.2) Albumin 2.1 G/DL (3.4-5.0) Globulin 6.9 g/dL Albumin/Globulin Ratio 0.3 (1.0-2.7) Vancomycin Level Trough 8.6 ug/mL (5.0-12.0) Height (Feet): 5 Height (Inches): 7.00 Weight (Pounds): 114 Objective Physical Exam General Appearance: lethargic Lines, tubes and drains: peripheral, central line HEENT: normocephalic Neck: non-tender, normal alignment Respiratory/Chest: lungs clear Cardiovascular/Chest: normal peripheral pulses, normal rate, regular rhythm Abdomen: normal bowel sounds, non tender ++ llq colostomy Martínez Capps MD Nov 15, 2019 07:08
[2019-11-15 08:00] VITALS: BP 109/59
[2019-11-15] MEDS: Docusate 100mg cap ORAL SCH ×2 (08:24→20:12)
[2019-11-15] MEDS: Zinc Sulfate 220mg ORAL SCH (08:24)
[2019-11-15] MEDS: Ascorbic Acid 500mg tab ORAL SCH (08:24)
[2019-11-15] MEDS: Sodium Chloride 1gm Tab ORAL SCH ×3 (08:24→17:19)
[2019-11-15] MEDS: Dakin's 0.125% Soln (Quarter Strength) 16oz TOPIC SCH (08:25)
[2019-11-15] MEDS: Desmopressin Nasal 5ml NASAL SCH (08:25)
[2019-11-15] MEDS: Heparin 5000 units/ml inj SUBQ SCH ×2 (08:33→20:14)
--- NOTE | 2019-11-15 09:14 | Consultation ---
DATE OF CONSULTATION: 11/15/2019 ENDOCRINOLOGY CONSULTATION CONSULTING PHYSICIAN: Juancho Mccormick MD REFERRING PHYSICIAN: Thalia Marx MD REASON FOR CONSULTATION: Possible adrenal insufficiency. HISTORY OF PRESENT ILLNESS: The patient is a 59-year-old male who was initially admitted to the hospital on 10/23/2019. He has history of paraplegia, sacral decubitus ulcer, anemia, hypertension, and ESBL, came in with altered mental status and sepsis and was noted to be hyponatremic and polyuric during this stay, was followed by Dr Georges. He has been treated with Florinef, desmopressin, and IV fluids. The possibility of adrenal insufficiency was entertained and Endocrinology was consulted. PAST MEDICAL HISTORY: As above. PAST SURGICAL HISTORY: Decubitus I and D. MEDICATIONS: Reviewed and reconciled. FAMILY HISTORY: Noncontributory. SOCIAL HISTORY: No smoking, alcohol, or drug use. REVIEW OF SYSTEMS: Unobtainable. PHYSICAL EXAMINATION: VITAL SIGNS: Shows a blood pressure of 94/51, heart rate 85, temperature of 101.7, respiratory rate of 18. HEENT: Pupils are equal and reactive to light. NECK: No JVD. HEART: Regular. LUNGS: Decreased breath sounds. ABDOMEN: Positive bowel sounds. EXTREMITIES: Paraplegic. LABORATORY DATA: WBC 10, hemoglobin 9.3, hematocrit 28.5, platelets of 608. Sodium 131, potassium 4.0, chloride 94, bicarb 29, BUN 18, creatinine 0.9, glucose 126, calcium of 10.5, alkaline phosphatase of 396. TSH is 0.2. DIAGNOSES: 1. Sepsis. 2. Hyponatremia. 3. Questionable adrenal insufficiency. DISCUSSION: In order to screen for adrenal insufficiency, I will order a.m. cortisol and ACTH. If the cortisol level comes back on the lower side, we will follow that with the Cortrosyn stimulation test. I will follow the results and further advise. Hyponatremia has been managed by emergency physician. Thank you, Dr. Marx, for the courtesy of this consultation. Juancho Mccormick M.D. DR: TANJA/SARA JOB#: [id number] CC: [email or web address]
[2019-11-15 10:09] LABS: ALANINE AMINOTRANSFERASE 21 U/L (12-78); ALBUMIN 1.7 G/DL (3.4-5.0); ALBUMIN/GLOBULIN RATIO 0.3 (1.0-2.7); ALKALINE PHOSPHATASE 266 U/L (46-116); ANION GAP 10 mmol/L (5-15); ASPARTATE AMINO TRANSFERASE 20 U/L (15-37); BILIRUBIN,TOTAL 0.5 MG/DL (0.2-1.0); BLOOD UREA NITROGEN 17 mg/dL (7-18); CALCIUM 9.7 MG/DL (8.5-10.1); CARBON DIOXIDE 26 MMOL/L (21-32); CHLORIDE 98 MMOL/L (98-107); CREATININE 0.7 MG/DL (0.55-1.30); POTASSIUM 3.9 MMOL/L (3.5-5.1); SODIUM 134 MMOL/L (136-145)
[2019-11-15 10:24] LABS: BASOPHILS % (AUTO) 1.3 % (0.0-2.0); EOSINOPHILS % (AUTO) 1.6 % (0.0-3.0); HEMOGLOBIN 8.6 G/DL (14.2-18.0); LYMPHOCYTES % (AUTO) 17.1 % (20.0-45.0); MEAN CORPUSCULAR VOLUME 86 FL (80-99); MONOCYTES % (AUTO) 6.7 % (1.0-10.0); NEUTROPHILS % (AUTO) 73.4 % (45.0-75.0); PLATELET COUNT 383 K/UL (150-450); RED BLOOD COUNT 3.15 M/UL (4.70-6.10); RED CELL DISTRIBUTION WIDTH 15.6 % (11.6-14.8); WHITE BLOOD COUNT 13.6 K/UL (4.8-10.8)
[2019-11-15] MEDS ORDERED: DDAVP NASAL (11:19)
[2019-11-15] MEDS ORDERED: FLORINEF0.1 MG ORAL (11:19)
--- NOTE | 2019-11-15 11:23 | General Progress Note ---
Assessment/Plan Problem List: (1) Septic shock ICD Codes: A41.9 - Sepsis, unspecified organism; R65.21 - Severe sepsis with septic shock SNOMED: 40180153 (2) Anemia ICD Codes: D64.9 - Anemia, unspecified SNOMED: 790054820 (3) Encephalopathy ICD Codes: G93.40 - Encephalopathy, unspecified SNOMED: 47932418 (4) Drug (multiple) resistant infection SNOMED: 19896852, 74027433970513 (5) Urinary tract infection in male ICD Codes: N39.0 - Urinary tract infection, site not specified SNOMED: 82776337, 378482628 (6) Hypokalemia ICD Codes: E87.6 - Hypokalemia SNOMED: 75410236 (7) Femur fracture ICD Codes: S72.90XA - Unspecified fracture of unspecified femur, initial encounter for closed fracture SNOMED: 46055392 (8) Hyponatremia ICD Codes: E87.1 - Hypo-osmolality and hyponatremia SNOMED: 68524975 (9) Sepsis ICD Codes: A41.9 - Sepsis, unspecified organism SNOMED: 36673400 (10) UTI (urinary tract infection) ICD Codes: N39.0 - Urinary tract infection, site not specified SNOMED: 39602219 (11) Hypotension ICD Codes: I95.9 - Hypotension, unspecified SNOMED: 41655108 (12) Decubital ulcer ICD Codes: L89.90 - Pressure ulcer of unspecified site, unspecified stage SNOMED: 918220227 (13) SEAN (acute kidney injury) ICD Codes: N17.9 - Acute kidney failure, unspecified SNOMED: 6724418, 20563646 Status: stable Assessment/Plan: 59 year old man who presents from T with weakness, encephalopathy, concern for septic shock, possible from UTI vs infected sacral pressure ulcer. DC held due to hypotension and fever. #Septic shock- reoccured #Proteus UTI #Acute metabolic encephalopathy -improving #Paraplegia #Sacral pressure ulcer, present on admit -DC planning held due to hypotention and fever. -off amikacin,meropenem and vancomycin, now on cefepime Flagyl and vanco -Spoke with surgery, sacral pressure ulcer does not appear to be infected -Local wound care and offloading #Sinus Bradycardia - resolved -continue telemetry -EP following #Hyponatremia #Hypokalemia -improving -refusing labs sometime -Replete when necessary -On DDAVP intranasal #Anemia, acute on chronic -2 units RBC 10/28 -Hematology following #Labile BP -Evaluating bye endocrine for adrenal insufficiency -AM cortisol pending -Refusing labs. I spent 35 minutes on this patient's care today , and 20mins was dedicated to counseling and care coordination Discussed with all consultants, Charge nurse and RNs. Coordinated with SNF. Subjective Date patient seen: Nov 15, 2019 Time patient seen: 09:00 ROS Limited/Unobtainable: Yes Constitutional: Reports: fever; Denies: chills, diaphoresis, malaise HEENT: Denies: blurred vision, tearing, double vision Cardiovascular: Denies: chest pain, edema, irregular heart rate Respiratory: Denies: orthopnea, shortness of breath, SOB with excertion Gastrointestinal/Abdominal: Denies: abdomen distended, abdominal pain, black stools Genitourinary: Denies: discharge, frequency, flank pain, hematuria Neurologic/Psychiatric: Denies: depressed, emotional problems, headache, numbness Endocrine: Denies: excessive sweating, flushing, intolerance to cold, intolerance to heat Hematologic/Lymphatic: Denies: anemia, easy bruising Allergies: Coded Allergies: No Known Allergies (Unverified , 08/15/19) Subjective Feeling feverish. but no other complaints. Objective Last 24 Hour Vital Signs Date Time Temp Pulse Resp B/P (MAP) Pulse Ox O2 Delivery O2 Flow Rate FiO2 11/15/19 09:00 Room Air 11/15/19 08:00 98.2 81 18 109/59 (76) 97 11/15/19 04:00 101.7 85 18 94/51 (65) 96 11/15/19 00:00 99.5 74 18 100/50 (67) 96 11/14/19 21:00 Room Air 11/14/19 20:00 97.9 64 18 101/54 (70) 98 11/14/19 16:00 98.8 18 104/67 (79) 99 11/14/19 15:07 98.2 18 100/58 (72) 97 11/14/19 13:09 98.1 61 20 81/45 (57) 99 11/14/19 12:00 98.0 98 18 88/51 (63) 97 Intake and Output 11/14/19 11/15/19 18:59 06:59 Intake Total 720 ml 800 ml Output Total 600 ml 1000 ml Balance 120 ml -200 ml Intake Oral 720 ml 600 ml IV Total 200 ml Output Urine Total 600 ml 1000 ml # Bowel Movements 2 Laboratory Tests 11/14/19 17:00: Urine Color Yellow, Urine Appearance Clear, Urine pH 6.5, Urine Specific [place] 1.010, Urine Protein 2+H, Urine Glucose (UA) Negative, Urine Ketones 1+H , Urine Blood Negative, Urine Nitrite Negative, Urine Bilirubin Negative, Urine Urobilinogen Normal, Urine Leukocyte Esterase Negative, Urine RBC 0, Urine WBC 0 -2, Urine Squamous Epithelial Cells None, Urine Amorphous Sediment FewH, Urine Bacteria Occasional 11/15/19 09:30: White Blood Count 13.6H, Red Blood Count 3.15L, Hemoglobin 8.6L, Hematocrit 27.0L, Mean Corpuscular Volume 86, Mean Corpuscular Hemoglobin 27.3, Mean Corpuscular Hemoglobin Concent 31.8L, Red Cell Distribution Width 15.6H, Platelet Count 383, Mean Platelet Volume 5.1L, Neutrophils (%) (Auto) 73.4, Lymphocytes (%) (Auto) 17.1L, Monocytes (%) (Auto) 6.7, Eosinophils (%) (Auto) 1.6, Basophils (%) (Auto) 1.3, Sodium Level 134L, Potassium Level 3.9, Chloride Level 98, Carbon Dioxide Level 26, Anion Gap 10, Blood Urea Nitrogen 17, Creatinine 0.7, Estimat Glomerular Filtration Rate > 60, Glucose Level 141H, Calcium Level 9.7, Total Bilirubin 0.5, Aspartate Amino Transf (AST/SGOT) 20, Alanine Aminotransferase (ALT/SGPT) 21, Alkaline Phosphatase 266H, Total Protein 7.6, Albumin 1.7L, Globulin 5.9, Albumin/Globulin Ratio 0.3L, Cortisol AM Sample [Pending], Adrenocorticotropic Hormone [Pending] Height (Feet): 5 Height (Inches): 7.00 Weight (Pounds): 114 General Appearance: no apparent distress, alert, cachetic EENT: normal ENT inspection, TMs normal Neck: normal alignment, supple, normal inspection Cardiovascular: regular rhythm, no gallop/murmur, no JVD, bradycardia Respiratory/Chest: chest wall non-tender, lungs clear, normal breath sounds, no respiratory distress Abdomen: normal bowel sounds, non tender, soft Pelvis: normal external exam Extremities: non-tender Edema: no edema noted Arm (L), no edema noted Arm (R), no edema noted Leg (L), no edema noted Leg (R), no edema noted Pedal (L), no edema noted Pedal (R), no edema noted Generalized Neurologic: alert, responsive, normal mood/affect, motor weakness Art Hensley M.D. Nov 15, 2019 11:23
[2019-11-15 12:00] VITALS: BP 117/83
--- NOTE | 2019-11-15 12:10 | Pulmonology Progress Note ---
Subjective ROS Limited/Unobtainable: Yes Interval Events: febrile; WBC increased Constitutional: Reports: fever HEENT: Repors: no symptoms Respiratory: Reports: no symptoms Cardiovascular: Reports: no symptoms Gastrointestinal/Abdominal: Denies: nausea, diarrhea Genitourinary: Reports: no symptoms Psychiatric: Denies: depression Skin: Denies: rash Musculoskeletal: Denies: pain Allergies: Coded Allergies: No Known Allergies (Unverified , 08/15/19) All Systems: reviewed and negative except above Objective Last 24 Hour Vital Signs Date Time Temp Pulse Resp B/P (MAP) Pulse Ox O2 Delivery O2 Flow Rate FiO2 11/15/19 09:00 Room Air 11/15/19 08:00 98.2 81 18 109/59 (76) 97 11/15/19 04:00 101.7 85 18 94/51 (65) 96 11/15/19 00:00 99.5 74 18 100/50 (67) 96 11/14/19 21:00 Room Air 11/14/19 20:00 97.9 64 18 101/54 (70) 98 11/14/19 16:00 98.8 18 104/67 (79) 99 11/14/19 15:07 98.2 18 100/58 (72) 97 11/14/19 13:09 98.1 61 20 81/45 (57) 99 Intake and Output 11/14/19 11/15/19 19:00 07:00 Intake Total 720 ml 800 ml Output Total 600 ml 1000 ml Balance 120 ml -200 ml Intake Oral 720 ml 600 ml IV Total 200 ml Output Urine Total 600 ml 1000 ml # Bowel Movements 2 General Appearance: no acute distress HEENT: normocephalic Respiratory: chest wall non-tender, lungs clear Cardiovascular: normal peripheral pulses, regular rhythm Abdomen: normal bowel sounds Extremities: no cyanosis Microbiology Date/Time Source Procedure Growth Status 11/13/19 02:00 Blood Blood Culture - Preliminary NO GROWTH AFTER 48 HOURS Resulted 11/13/19 01:50 Blood Blood Culture - Preliminary NO GROWTH AFTER 48 HOURS Resulted 11/12/19 16:30 Indwelling Cath Urine Culture - Preliminary YEAST Resulted Laboratory Tests 11/14/19 17:00: Urine Color Yellow, Urine Appearance Clear, Urine pH 6.5, Urine Specific [place] 1.010, Urine Protein 2+H, Urine Glucose (UA) Negative, Urine Ketones 1+H , Urine Blood Negative, Urine Nitrite Negative, Urine Bilirubin Negative, Urine Urobilinogen Normal, Urine Leukocyte Esterase Negative, Urine RBC 0, Urine WBC 0 -2, Urine Squamous Epithelial Cells None, Urine Amorphous Sediment FewH, Urine Bacteria Occasional 11/15/19 09:30: White Blood Count 13.6H, Red Blood Count 3.15L, Hemoglobin 8.6L, Hematocrit 27.0L, Mean Corpuscular Volume 86, Mean Corpuscular Hemoglobin 27.3, Mean Corpuscular Hemoglobin Concent 31.8L, Red Cell Distribution Width 15.6H, Platelet Count 383, Mean Platelet Volume 5.1L, Neutrophils (%) (Auto) 73.4, Lymphocytes (%) (Auto) 17.1L, Monocytes (%) (Auto) 6.7, Eosinophils (%) (Auto) 1.6, Basophils (%) (Auto) 1.3, Sodium Level 134L, Potassium Level 3.9, Chloride Level 98, Carbon Dioxide Level 26, Anion Gap 10, Blood Urea Nitrogen 17, Creatinine 0.7, Estimat Glomerular Filtration Rate > 60, Glucose Level 141H, Calcium Level 9.7, Total Bilirubin 0.5, Aspartate Amino Transf (AST/SGOT) 20, Alanine Aminotransferase (ALT/SGPT) 21, Alkaline Phosphatase 266H, Total Protein 7.6, Albumin 1.7L, Globulin 5.9, Albumin/Globulin Ratio 0.3L, Cortisol AM Sample [Pending], Adrenocorticotropic Hormone [Pending] Current Medications Medications (Trade) Dose Ordered Sig/Mya Route PRN Reason Start Time Stop Time Status Last Admin Dose Admin Acetaminophen (Tylenol) 650 mg Q4H PRN ORAL Mild Pain (Pain Scale 1-3) 11/05/19 14:00 11/30/19 13:59 11/14/19 08:59 Acetaminophen (Tylenol) 650 mg Q4H PRN ORAL Temp >100.5 11/05/19 16:00 12/05/19 15:59 11/11/19 16:39 Acetaminophen/ Hydrocodone Bitart ([place] 5/325) 2 tab Q4H PRN ORAL Severe Pain (Pain Scale 7-10) 11/08/19 15:45 11/15/19 15:44 11/15/19 10:33 Ascorbic Acid (Vitamin C) 500 mg DAILY ORAL 11/06/19 09:00 11/23/19 08:59 11/15/19 08:24 Baclofen (Lioresal) 10 mg THREE TIMES A DAY ORAL 11/05/19 18:00 11/22/19 17:59 11/15/19 08:24 Cefepime HCl 2 gm/ Dextrose 100 ml @ 200 mls/hr Q8HR IVPB 11/14/19 15:00 11/21/19 14:59 11/15/19 05:03 Chlorhexidine Gluconate (Simran-Hex 2%) 1 applic DAILY@2000 TOPIC 11/13/19 20:00 02/11/20 19:59 11/13/19 21:13 Desmopressin Acetate (Ddavp) 1 spray DAILY NASAL 11/14/19 09:00 02/07/20 17:59 11/15/19 08:25 Dextrose (Dextrose 50%) 25 ml Q30M PRN IV Hypoglycemia 11/05/19 13:30 01/21/20 17:29 Dextrose (Dextrose 50%) 50 ml Q30M PRN IV Hypoglycemia 11/05/19 13:30 01/21/20 17:29 Diphenhydramine HCl (Benadryl) 25 mg Q6H PRN ORAL Itching/Pruritis 11/05/19 14:00 11/22/19 07:54 Docusate Sodium (Colace) 100 mg EVERY 12 HOURS ORAL 11/05/19 21:00 11/22/19 20:59 11/15/19 08:24 Famotidine (Pepcid) 20 mg DAILY ORAL 11/06/19 09:00 01/28/20 09:29 11/15/19 08:24 Ferrous Sulfate (Feosol) 325 mg DAILY ORAL 11/06/19 09:00 01/22/20 08:59 11/15/19 08:24 Fludrocortisone Acetate (Florinef) 0.1 mg DAILY ORAL 11/15/19 09:00 12/15/19 08:59 11/15/19 08:24 Gabapentin (Neurontin) 400 mg Q8HR ORAL 11/05/19 14:00 12/03/19 21:59 11/14/19 05:30 Heparin Sodium (Porcine) (Heparin 5000 units/ml) 5,000 units EVERY 12 HOURS SUBQ 11/05/19 21:00 12/08/19 08:59 11/15/19 08:33 Magnesium Hydroxide (Mom) 30 ml HSPRN PRN ORAL Constipation 11/13/19 11:15 12/13/19 11:14 Metronidazole 100 ml @ 100 mls/hr Q8HR IVPB 11/14/19 15:00 11/21/19 14:59 11/15/19 05:51 Midodrine (Pro-Amatine) 10 mg EVERY 8 HOURS ORAL 11/05/19 14:00 01/21/20 17:59 11/15/19 06:20 Ondansetron HCl (Zofran) 4 mg Q6H PRN IVP Nausea & Vomiting 11/05/19 14:00 11/22/19 07:57 Sodium Hypochlorite (Dakin's Quarter Strength) 1 applic DAILY TOPIC 11/06/19 09:00 11/24/19 08:59 11/15/19 08:25 Sodium Chloride (NaCl) 1 gm THREE TIMES A DAY ORAL 11/09/19 13:00 12/09/19 12:59 11/15/19 08:24 Vancomycin HCl (Vanco pharmacy to dose) 1 ea DAILY PRN MISC Per rx protocol 11/14/19 14:00 12/14/19 13:59 Vancomycin/Sodium Chloride 275 ml @ 183.333 mls/hr Q24H IVPB 11/14/19 16:00 11/19/19 15:59 11/14/19 17:49 Zinc Sulfate (Zinc Sulfate) 220 mg DAILY ORAL 11/06/19 09:00 01/22/20 08:59 11/15/19 08:24 Assessment/Plan Assessment/Plan IMPRESSION: 1. Septic shock. resolved 2. Complicated UTI with history of previous ESBL infection. 3. Paraplegia. 4. Sacral decubitus. 5. shelter resident. DISCUSSION: DVT and GI prophylaxes. ID consult and follow-up noted. I will follow carefully. Continue Oxygen, doing well on room air at this time. Hypotensive yesterday Febrile WBC high Haily Monzon Omar Syed MD Nov 15, 2019 12:10
--- NOTE | 2019-11-15 12:17 | Cardiac Electrophysiology PN ---
Assessment/Plan Assessment/Plan 1. S/P Septic shock. On Midodrine, iv fluids and antibiotic via PICC line. 2. Bradycardia. Resolved. 3. Paraplegia. 4. Urinary tract infection, 5. Decubitus ulcers with sacral decubitus. 6. S/P Ileostomy/ 7. Polyuria, DI. On NS, Salt tablets DW RN Subjective Subjective Alert in NAD. RN at bedside. S/P PICC line . BP improved with iv fluids and wasn't transferred to ICU Objective Last 24 Hour Vital Signs Date Time Temp Pulse Resp B/P (MAP) Pulse Ox O2 Delivery O2 Flow Rate FiO2 11/15/19 09:00 Room Air 11/15/19 08:00 98.2 81 18 109/59 (76) 97 11/15/19 04:00 101.7 85 18 94/51 (65) 96 11/15/19 00:00 99.5 74 18 100/50 (67) 96 11/14/19 21:00 Room Air 11/14/19 20:00 97.9 64 18 101/54 (70) 98 11/14/19 16:00 98.8 18 104/67 (79) 99 11/14/19 15:07 98.2 18 100/58 (72) 97 11/14/19 13:09 98.1 61 20 81/45 (57) 99 Intake and Output 11/14/19 11/15/19 19:00 07:00 Intake Total 720 ml 800 ml Output Total 600 ml 1000 ml Balance 120 ml -200 ml Intake Oral 720 ml 600 ml IV Total 200 ml Output Urine Total 600 ml 1000 ml # Bowel Movements 2 Laboratory Tests Test 11/14/19 17:00 11/15/19 09:30 Urine Color Yellow Urine Appearance Clear Urine pH 6.5 (4.5-8.0) Urine Specific [place] 1.010 (1.005-1.035) Urine Protein 2+ (NEGATIVE) H Urine Glucose (UA) Negative (NEGATIVE) Urine Ketones 1+ (NEGATIVE) H Urine Blood Negative (NEGATIVE) Urine Nitrite Negative (NEGATIVE) Urine Bilirubin Negative (NEGATIVE) Urine Urobilinogen Normal MG/DL (0.0-1.0) Urine Leukocyte Esterase Negative (NEGATIVE) Urine RBC 0 /HPF (0 - 0) Urine WBC 0-2 /HPF (0 - 0) Urine Squamous Epithelial Cells None /LPF (NONE/OCC) Urine Amorphous Sediment Few /LPF (NONE) H Urine Bacteria Occasional /HPF (NONE) White Blood Count 13.6 K/UL (4.8-10.8) H Red Blood Count 3.15 M/UL (4.70-6.10) L Hemoglobin 8.6 G/DL (14.2-18.0) L Hematocrit 27.0 % (42.0-52.0) L Mean Corpuscular Volume 86 FL (80-99) Mean Corpuscular Hemoglobin 27.3 PG (27.0-31.0) Mean Corpuscular Hemoglobin Concent 31.8 G/DL (32.0-36.0) L Red Cell Distribution Width 15.6 % (11.6-14.8) H Platelet Count 383 K/UL (150-450) Mean Platelet Volume 5.1 FL (6.5-10.1) L Neutrophils (%) (Auto) 73.4 % (45.0-75.0) Lymphocytes (%) (Auto) 17.1 % (20.0-45.0) L Monocytes (%) (Auto) 6.7 % (1.0-10.0) Eosinophils (%) (Auto) 1.6 % (0.0-3.0) Basophils (%) (Auto) 1.3 % (0.0-2.0) Sodium Level 134 MMOL/L (136-145) L Potassium Level 3.9 MMOL/L (3.5-5.1) Chloride Level 98 MMOL/L (98-107) Carbon Dioxide Level 26 MMOL/L (21-32) Anion Gap 10 mmol/L (5-15) Blood Urea Nitrogen 17 mg/dL (7-18) Creatinine 0.7 MG/DL (0.55-1.30) Estimat Glomerular Filtration Rate > 60 mL/min (>60) Glucose Level 141 MG/DL (74-106) H Calcium Level 9.7 MG/DL (8.5-10.1) Total Bilirubin 0.5 MG/DL (0.2-1.0) Aspartate Amino Transf (AST/SGOT) 20 U/L (15-37) Alanine Aminotransferase (ALT/SGPT) 21 U/L (12-78) Alkaline Phosphatase 266 U/L (46-116) H Total Protein 7.6 G/DL (6.4-8.2) Albumin 1.7 G/DL (3.4-5.0) L Globulin 5.9 g/dL Albumin/Globulin Ratio 0.3 (1.0-2.7) L Cortisol AM Sample Pending Adrenocorticotropic Hormone Pending Microbiology Date/Time Source Procedure Growth Status 11/13/19 02:00 Blood Blood Culture - Preliminary NO GROWTH AFTER 48 HOURS Resulted 11/13/19 01:50 Blood Blood Culture - Preliminary NO GROWTH AFTER 48 HOURS Resulted 11/12/19 16:30 Indwelling Cath Urine Culture - Preliminary YEAST Resulted Objective HEAD AND NECK: No JVD. LUNGS: Coarse rhonchi. CARDIOVASCULAR: Regular S1 and S2 with no gallop. ABDOMEN: Soft.S/P Ileostomy EXTREMITIES: No pitting edema, however, has pressure ulcers. Carloz Estes MD Nov 15, 2019 12:17
--- NOTE | 2019-11-15 12:29 | Diagnostic Imaging Report ---
Indication: Cough Technique: One view of the chest Comparison: 11/13/2019 Findings: Again demonstrated is bilateral basilar atelectasis versus scarring. The lungs and pleural spaces are otherwise clear. The heart size is normal. Interim placement right arm PICC. Impression: No acute process
--- NOTE | 2019-11-15 14:03 | Nephrology Progress Note ---
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 - improved with desmporessin #Shock #UTI # infected sacral pressure ulcer #Acute metabolic encephalopathy #Paraplegia #Sacral pressure ulcer #Hypokalemia #Anemia - continue florinef 0.1mg daily -Continue desmopressin nasal - continue salt tabs 1g TID - continue midodrine 10 TID - endocrine eval noted - r/o adrenal insuffiency - antibiotics per ID - monitor lytes - avoid nephrotoxins - daily weights - strict I&Os time spent 40 min- greater than 50% on care coordination and counseling Subjective ROS Limited/Unobtainable: Yes Subjective UOP 1800 added florinef 0.1mg daily Bp stable sodium 134 on nasal desmopressin on salt tabs Objective Objective Last 24 Hour Vital Signs Date Time Temp Pulse Resp B/P (MAP) Pulse Ox O2 Delivery O2 Flow Rate FiO2 11/15/19 12:00 98.1 105 18 117/83 (94) 96 11/15/19 09:00 Room Air 11/15/19 08:00 98.2 81 18 109/59 (76) 97 11/15/19 04:00 101.7 85 18 94/51 (65) 96 11/15/19 00:00 99.5 74 18 100/50 (67) 96 11/14/19 21:00 Room Air 11/14/19 20:00 97.9 64 18 101/54 (70) 98 11/14/19 16:00 98.8 18 104/67 (79) 99 11/14/19 15:07 98.2 18 100/58 (72) 97 Intake and Output 11/14/19 11/15/19 19:00 07:00 Intake Total 720 ml 800 ml Output Total 600 ml 1000 ml Balance 120 ml -200 ml Intake Oral 720 ml 600 ml IV Total 200 ml Output Urine Total 600 ml 1000 ml # Bowel Movements 2 Laboratory Tests 11/14/19 17:00: Urine Color Yellow, Urine Appearance Clear, Urine pH 6.5, Urine Specific [place] 1.010, Urine Protein 2+H, Urine Glucose (UA) Negative, Urine Ketones 1+H , Urine Blood Negative, Urine Nitrite Negative, Urine Bilirubin Negative, Urine Urobilinogen Normal, Urine Leukocyte Esterase Negative, Urine RBC 0, Urine WBC 0 -2, Urine Squamous Epithelial Cells None, Urine Amorphous Sediment FewH, Urine Bacteria Occasional 11/15/19 09:30: White Blood Count 13.6H, Red Blood Count 3.15L, Hemoglobin 8.6L, Hematocrit 27.0L, Mean Corpuscular Volume 86, Mean Corpuscular Hemoglobin 27.3, Mean Corpuscular Hemoglobin Concent 31.8L, Red Cell Distribution Width 15.6H, Platelet Count 383, Mean Platelet Volume 5.1L, Neutrophils (%) (Auto) 73.4, Lymphocytes (%) (Auto) 17.1L, Monocytes (%) (Auto) 6.7, Eosinophils (%) (Auto) 1.6, Basophils (%) (Auto) 1.3, Sodium Level 134L, Potassium Level 3.9, Chloride Level 98, Carbon Dioxide Level 26, Anion Gap 10, Blood Urea Nitrogen 17, Creatinine 0.7, Estimat Glomerular Filtration Rate > 60, Glucose Level 141H, Calcium Level 9.7, Total Bilirubin 0.5, Aspartate Amino Transf (AST/SGOT) 20, Alanine Aminotransferase (ALT/SGPT) 21, Alkaline Phosphatase 266H, Total Protein 7.6, Albumin 1.7L, Globulin 5.9, Albumin/Globulin Ratio 0.3L, Cortisol AM Sample 15.7, Adrenocorticotropic Hormone [Pending] Height (Feet): 5 Height (Inches): 7.00 Weight (Pounds): 114 Sienna Georges M.D. Nov 15, 2019 14:03
[2019-11-15 16:00] VITALS: BP 108/63
[2019-11-15] MEDS: Vancomycin 1.25gm/NS Premix q24h IVPB SCH (16:00)
--- NOTE | 2019-11-15 18:32 | Surgery Progress Note ---
Surgery Progress Note Subjective Additional Comments fevers leukocytosis cxr okay Objective Last 24 Hour Vital Signs Date Time Temp Pulse Resp B/P (MAP) Pulse Ox O2 Delivery O2 Flow Rate FiO2 11/15/19 16:00 97.2 104 18 108/63 (78) 100 11/15/19 12:00 98.1 105 18 117/83 (94) 96 11/15/19 09:00 Room Air 11/15/19 08:00 98.2 81 18 109/59 (76) 97 11/15/19 04:00 101.7 85 18 94/51 (65) 96 11/15/19 00:00 99.5 74 18 100/50 (67) 96 11/14/19 21:00 Room Air 11/14/19 20:00 97.9 64 18 101/54 (70) 98 I&O Intake and Output 11/14/19 11/15/19 19:00 07:00 Intake Total 720 ml 800 ml Output Total 600 ml 1000 ml Balance 120 ml -200 ml Intake Oral 720 ml 600 ml IV Total 200 ml Output Urine Total 600 ml 1000 ml # Bowel Movements 2 Dressing: other Wound: other Cardiovascular: RSR Respiratory: decreased breath sounds Abdomen: soft, non-tender, present bowel sounds Extremities: no edema, no tenderness, no cyanosis Laboratory Tests Test 11/15/19 09:30 White Blood Count 13.6 K/UL (4.8-10.8) H Red Blood Count 3.15 M/UL (4.70-6.10) L Hemoglobin 8.6 G/DL (14.2-18.0) L Hematocrit 27.0 % (42.0-52.0) L Mean Corpuscular Volume 86 FL (80-99) Mean Corpuscular Hemoglobin 27.3 PG (27.0-31.0) Mean Corpuscular Hemoglobin Concent 31.8 G/DL (32.0-36.0) L Red Cell Distribution Width 15.6 % (11.6-14.8) H Platelet Count 383 K/UL (150-450) Mean Platelet Volume 5.1 FL (6.5-10.1) L Neutrophils (%) (Auto) 73.4 % (45.0-75.0) Lymphocytes (%) (Auto) 17.1 % (20.0-45.0) L Monocytes (%) (Auto) 6.7 % (1.0-10.0) Eosinophils (%) (Auto) 1.6 % (0.0-3.0) Basophils (%) (Auto) 1.3 % (0.0-2.0) Sodium Level 134 MMOL/L (136-145) L Potassium Level 3.9 MMOL/L (3.5-5.1) Chloride Level 98 MMOL/L (98-107) Carbon Dioxide Level 26 MMOL/L (21-32) Anion Gap 10 mmol/L (5-15) Blood Urea Nitrogen 17 mg/dL (7-18) Creatinine 0.7 MG/DL (0.55-1.30) Estimat Glomerular Filtration Rate > 60 mL/min (>60) Glucose Level 141 MG/DL (74-106) H Calcium Level 9.7 MG/DL (8.5-10.1) Total Bilirubin 0.5 MG/DL (0.2-1.0) Aspartate Amino Transf (AST/SGOT) 20 U/L (15-37) Alanine Aminotransferase (ALT/SGPT) 21 U/L (12-78) Alkaline Phosphatase 266 U/L (46-116) H Total Protein 7.6 G/DL (6.4-8.2) Albumin 1.7 G/DL (3.4-5.0) L Globulin 5.9 g/dL Albumin/Globulin Ratio 0.3 (1.0-2.7) L Cortisol AM Sample 15.7 UG/DL Adrenocorticotropic Hormone Pending Plan Problems: (1) Abdominal distension Assessment & Plan: abd distention soft non tender ostomy viable and reduced KUB ordered pending results improved comfortable no complaints okay for diet s tolerated d/c planning much improved There is an inferior vena cava filter in place. Bowel gas pattern is unremarkable. Considerable stool is seen in the transverse and distal colon. There is extensive pelvic deformity, with loss of the left femoral head, chronic dislocation of the left femur, and extensive pelvic deformity, particularly on the left. [facility] project over the upper pelvis Impression: Possible constipation. pending placement Nonobstructed bowel gas pattern. Moderate fecal retention of the ascending colon and sigmoid colon. The degree of stool burden has increased from October 25, 2019. IVC filter, incidentally noted. Partial subluxation of the right hip. Osteotomy of the proximal left femur with deformity of the bilateral pubic rami and left acetabulum, unchanged. 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 [place] Shaped, Full Thickness Sacral Pressure Injury which extends into L ischium. (L)15.4cm x (W)18cm x (D)2.4cm, Undermining clockwise 10-2 by 7.7cm @ 11o'clock. Base of wound is moist,pink with scattered slough at base of wound. Bone is palpable at the Base. No odor or exudate noted. Scattered partial thickness wounds and Serous filled blisters noted to R trochanteric /R Hip areas. Historical scar noted to L groin, L Hip L Buttocks. Bony protrusion noted at L Hip. Full thickness Pressure Injury R Ischium(L)5.4cm x(W)6.9cm x (D)1.8cm, Undermining clockwise 1-4 by 2.7cm @2o'clock, Tunneling@7o'clock 2.9cm. Base of wound is moist pink with scattered slough. Scattered slough noted along borders. NO odor or exudate noted. Stable dry eschar noted to medial R knee 0.7cm x (W)0.4cm. Periwound is erythematous and indurated. No elevation in skin temp noted. L heel has shaved appearance secondary to Hx of Pressure Injuries. Base of heel is pale pink. Bone is palpable. Small area of slough noted within compromised area(L)0.6cm x (W)0.8cm. L Heel Also has shaved appearance with hypertrophic scarring. Base of compromised area is pale pink, Bone is palpable, with scattered loose, dry and scaly skin. Tx.Plan: Cleanse Sacral Wound and R Ischial wounds with Dakin's 0.125% gian. Loosely pack wounds with Hydrogel impregnated Kerlix. Apply Moisture Barrier Paste periwound. Cover with ABD Pads secure with Tegaderm drsg.Daily and prn. Apply Triad Paste to R Hip/R trochanteric areas.Cover with Optifoam drsg. Change every 7 days and prn. Apply Betadine to Medial R Knee. Cover with Optifoam drsg. Change every 7 days and prn. Apply Betadine to R and L Heels. Cover each Heel with Optifoam drsgs. Change every 7 days and prn. Cover Bony Prominences as needed with Optifoam drsgs. Reposition at least every [address] Pillow between knees. Off-load heels with pillow. APM/SUMI Mattress overlay DAILY ESTIMATED NEEDS: Needs based on Advanced wounds, wt loss/ 40.18kg 35-40 kcals/kg 1611-5357 total kcals 1.5-2.0 g protein/kg 60-80 g total protein 25-35ml/kcal mL/kg 1592-3600 total fluid mLs NUTRITION DIAGNOSIS: Increased kcal/prot/micronutrients needs R/T wound healing and underweight status as evidenced by pt admitted w/ multiple advanced wounds, refer to WC eval, pt now w/ further 3% unfavorable wt loss, currently BMI underweight per guidelines, @62% of [employer] Body Weight. CURRENT DIET: Regular PO DIET RECOMMENDATIONS: REGULAR, texture as tolerated or per ENROLLMENT REPRESENTATIVE + Ensure Enlive TID w/ meals ADDITIONAL RECOMMENDATIONS: * Per SNF: HT=66" WT=88lbs; -> vs current EMR wt =120# -> Recalibrate bed scale for accurate wts * Continue Ensure TID, whole milk TID w/ meals * Monitor for continued improved/good Po intake * Wound healing:add MVI w/ min qdaily Continue w/ ZnSO4, Vit C, and Amari BID * Monitor Na, need for fluid restriction - (132 improved, on nacl) (15) SEAN (acute kidney injury) (16) Ileostomy prolapse Assessment & Plan: currently reduced but abd distended pending films films reviewed improved okay for diet d/c planning Cornelius Salgado Nov 15, 2019 18:32
[2019-11-15 20:00] VITALS: BP 112/63
[2019-11-15] MEDS: Dyna-Hex 2% Top Sol 2oz TOPIC SCH (20:15)
[2019-11-15] MEDS: HYDROcodone/Acetamin 10/325 tab ORAL PRN (22:22)
[2019-11-16] VITALS (7 sets, daily range): BP systolic 89–122; BP diastolic 47–60
[2019-11-16] MEDS: Midodrine 10mg tab ORAL SCH ×3 (05:21→22:14)
[2019-11-16] MEDS: HYDROcodone/Acetamin 10/325 tab ORAL PRN ×3 (05:23→21:12)
[2019-11-16 05:41] LABS: BASOPHILS % (AUTO) 1.4 % (0.0-2.0); EOSINOPHILS % (AUTO) 3.1 % (0.0-3.0); HEMATOCRIT 27.7 % (42.0-52.0); HEMOGLOBIN 8.7 G/DL (14.2-18.0); LYMPHOCYTES % (AUTO) 28.1 % (20.0-45.0); MEAN CORPUSCULAR VOLUME 85 FL (80-99); MONOCYTES % (AUTO) 9.2 % (1.0-10.0); NEUTROPHILS % (AUTO) 58.2 % (45.0-75.0); PLATELET COUNT 283 K/UL (150-450); RED BLOOD COUNT 3.26 M/UL (4.70-6.10); WHITE BLOOD COUNT 7.1 K/UL (4.8-10.8)
[2019-11-16 06:20] LABS: ANION GAP 9 mmol/L (5-15); BLOOD UREA NITROGEN 16 mg/dL (7-18); CALCIUM 10.2 MG/DL (8.5-10.1); CARBON DIOXIDE 26 MMOL/L (21-32); CHLORIDE 98 MMOL/L (98-107); CREATININE 0.6 MG/DL (0.55-1.30); POTASSIUM 3.4 MMOL/L (3.5-5.1); SODIUM 133 MMOL/L (136-145)
[2019-11-16 06:25] LABS: PHOSPHORUS 4.2 MG/DL (2.5-4.9)
--- NOTE | 2019-11-16 06:44 | General Progress Note ---
Assessment/Plan Problem List: (1) Hyponatremia ICD Codes: E87.1 - Hypo-osmolality and hyponatremia SNOMED: 93751639 (2) SEAN (acute kidney injury) ICD Codes: N17.9 - Acute kidney failure, unspecified SNOMED: 0888976, 11292884 (3) Septic shock ICD Codes: A41.9 - Sepsis, unspecified organism; R65.21 - Severe sepsis with septic shock SNOMED: 12122524 (4) Encephalopathy ICD Codes: G93.40 - Encephalopathy, unspecified SNOMED: 31333682 Status: stable Assessment/Plan: am cortisol is > 10 which rules out adrenal insufficiency no need for Cortrosyn stimulation test Subjective ROS Limited/Unobtainable: Yes Allergies: Coded Allergies: No Known Allergies (Unverified , 08/15/19) Subjective events noted interval notes reviewed am cortisol is 15.7 Objective Last 24 Hour Vital Signs Date Time Temp Pulse Resp B/P (MAP) Pulse Ox O2 Delivery O2 Flow Rate FiO2 11/16/19 04:00 99.0 90 18 118/55 (76) 96 11/16/19 00:00 98.9 94 18 122/58 (79) 96 11/15/19 21:00 Room Air 11/15/19 20:00 99.1 91 20 112/63 (79) 97 11/15/19 16:00 97.2 104 18 108/63 (78) 100 11/15/19 12:00 98.1 105 18 117/83 (94) 96 11/15/19 09:00 Room Air 11/15/19 08:00 98.2 81 18 109/59 (76) 97 Intake and Output 11/15/19 11/16/19 19:00 07:00 Intake Total 920 ml 420 ml Output Total 800 ml 700 ml Balance 120 ml -280 ml Intake Oral 720 ml 420 ml IV Total 200 ml Output Urine Total 800 ml 700 ml Laboratory Tests 11/15/19 09:30: White Blood Count 13.6H, Red Blood Count 3.15L, Hemoglobin 8.6L, Hematocrit 27.0L, Mean Corpuscular Volume 86, Mean Corpuscular Hemoglobin 27.3, Mean Corpuscular Hemoglobin Concent 31.8L, Red Cell Distribution Width 15.6H, Platelet Count 383, Mean Platelet Volume 5.1L, Neutrophils (%) (Auto) 73.4, Lymphocytes (%) (Auto) 17.1L, Monocytes (%) (Auto) 6.7, Eosinophils (%) (Auto) 1.6, Basophils (%) (Auto) 1.3, Sodium Level 134L, Potassium Level 3.9, Chloride Level 98, Carbon Dioxide Level 26, Anion Gap 10, Blood Urea Nitrogen 17, Creatinine 0.7, Estimat Glomerular Filtration Rate > 60, Glucose Level 141H, Calcium Level 9.7, Total Bilirubin 0.5, Aspartate Amino Transf (AST/SGOT) 20, Alanine Aminotransferase (ALT/SGPT) 21, Alkaline Phosphatase 266H, Total Protein 7.6, Albumin 1.7L, Globulin 5.9, Albumin/Globulin Ratio 0.3L, Cortisol AM Sample 15.7, Adrenocorticotropic Hormone [Pending] 11/16/19 04:00: White Blood Count 7.1, Red Blood Count 3.26L, Hemoglobin 8.7L, Hematocrit 27.7L , Mean Corpuscular Volume 85, Mean Corpuscular Hemoglobin 26.7L, Mean Corpuscular Hemoglobin Concent 31.4L, Red Cell Distribution Width 16.0H, Platelet Count 283, Mean Platelet Volume 5.2L, Neutrophils (%) (Auto) 58.2, Lymphocytes (%) (Auto) 28.1, Monocytes (%) (Auto) 9.2, Eosinophils (%) (Auto) 3.1H, Basophils (%) (Auto) 1.4, Sodium Level 133L, Potassium Level 3.4L, Chloride Level 98, Carbon Dioxide Level 26, Anion Gap 9, Blood Urea Nitrogen 16 , Creatinine 0.6, Estimat Glomerular Filtration Rate > 60, Glucose Level 128H, Calcium Level 10.2H, Phosphorus Level 4.2, Magnesium Level 1.7L Height (Feet): 5 Height (Inches): 7.00 Weight (Pounds): 114 General Appearance: lethargic Neck: normal alignment Cardiovascular: normal rate Respiratory/Chest: decreased breath sounds Abdomen: normal bowel sounds Objective Current Medications Medications (Trade) Dose Ordered Sig/Mya Route PRN Reason Start Time Stop Time Status Last Admin Dose Admin Acetaminophen (Tylenol) 650 mg Q4H PRN ORAL Mild Pain (Pain Scale 1-3) 11/05/19 14:00 11/30/19 13:59 11/14/19 08:59 Acetaminophen (Tylenol) 650 mg Q4H PRN ORAL Temp >100.5 11/05/19 16:00 12/05/19 15:59 11/11/19 16:39 Acetaminophen/ Hydrocodone Bitart ([place] 10/325) 1 tab Q4H PRN ORAL Severe Pain (Pain Scale 7-10) 11/15/19 19:45 11/22/19 19:44 11/16/19 05:23 Ascorbic Acid (Vitamin C) 500 mg DAILY ORAL 11/06/19 09:00 11/23/19 08:59 11/15/19 08:24 Baclofen (Lioresal) 10 mg THREE TIMES A DAY ORAL 11/05/19 18:00 11/22/19 17:59 11/15/19 17:19 Cefepime HCl 2 gm/ Dextrose 100 ml @ 200 mls/hr Q8HR IVPB 11/14/19 15:00 11/21/19 14:59 11/16/19 05:22 Chlorhexidine Gluconate (Simran-Hex 2%) 1 applic DAILY@2000 TOPIC 11/13/19 20:00 02/11/20 19:59 11/15/19 20:15 Desmopressin Acetate (Ddavp) 1 spray DAILY NASAL 11/14/19 09:00 02/07/20 17:59 11/15/19 08:25 Dextrose (Dextrose 50%) 25 ml Q30M PRN IV Hypoglycemia 11/05/19 13:30 01/21/20 17:29 Dextrose (Dextrose 50%) 50 ml Q30M PRN IV Hypoglycemia 11/05/19 13:30 01/21/20 17:29 Diphenhydramine HCl (Benadryl) 25 mg Q6H PRN ORAL Itching/Pruritis 11/05/19 14:00 11/22/19 07:54 Docusate Sodium (Colace) 100 mg EVERY 12 HOURS ORAL 11/05/19 21:00 11/22/19 20:59 11/15/19 20:12 Famotidine (Pepcid) 20 mg DAILY ORAL 11/06/19 09:00 01/28/20 09:29 11/15/19 08:24 Ferrous Sulfate (Feosol) 325 mg DAILY ORAL 11/06/19 09:00 01/22/20 08:59 11/15/19 08:24 Fludrocortisone Acetate (Florinef) 0.1 mg DAILY ORAL 11/15/19 09:00 12/15/19 08:59 11/15/19 08:24 Gabapentin (Neurontin) 400 mg Q8HR ORAL 11/05/19 14:00 12/03/19 21:59 11/16/19 05:21 Heparin Sodium (Porcine) (Heparin 5000 units/ml) 5,000 units EVERY 12 HOURS SUBQ 11/05/19 21:00 12/08/19 08:59 11/15/19 20:14 Magnesium Hydroxide (Mom) 30 ml HSPRN PRN ORAL Constipation 11/13/19 11:15 12/13/19 11:14 Metronidazole 100 ml @ 100 mls/hr Q8HR IVPB 11/14/19 15:00 11/21/19 14:59 11/16/19 05:22 Midodrine (Pro-Amatine) 10 mg EVERY 8 HOURS ORAL 11/05/19 14:00 01/21/20 17:59 11/16/19 05:21 Ondansetron HCl (Zofran) 4 mg Q6H PRN IVP Nausea & Vomiting 11/05/19 14:00 11/22/19 07:57 Sodium Hypochlorite (Dakin's Quarter Strength) 1 applic DAILY TOPIC 11/06/19 09:00 11/24/19 08:59 11/15/19 08:25 Sodium Chloride (NaCl) 1 gm THREE TIMES A DAY ORAL 11/09/19 13:00 12/09/19 12:59 11/15/19 17:19 Vancomycin HCl (Vanco pharmacy to dose) 1 ea DAILY PRN MISC Per rx protocol 11/14/19 14:00 12/14/19 13:59 Vancomycin/Sodium Chloride 275 ml @ 183.333 mls/hr Q24H IVPB 11/14/19 16:00 11/19/19 15:59 11/14/19 17:49 Zinc Sulfate (Zinc Sulfate) 220 mg DAILY ORAL 11/06/19 09:00 01/22/20 08:59 11/15/19 08:24 Juancho Mccormick MD Nov 16, 2019 06:44
--- NOTE | 2019-11-16 07:10 | Hematology/Onc Progress Note ---
Assessment/Plan Assessment/Plan Assessment/recs # Anemia rule out gi bleed, as well as iron deficiency --> hgb 8.2-->7.2-->7.1->6.9-->8.6-->8.3-->9.3-->8.3-->9.3--.9.2->8.7 --> anemia panel ordered--> cw acd --> occult blood pending-->neg --> gi eval prn --> transfuse as needed --> transfuse 2 units 10/27 --> po iron to continue # Coagulopathy with elev ptt/inr --> vitk and ffp as needed --> no bleeding noted at this time # Thrombocytosis likely reactive process --> plt 398-->608-->605 --> abx as needed # Sepsis due to uti, with Hypotension likely due to septic shock. Was diuresing heavily at 300 mL an hour. --> Continue on midodrine and dopamine. --> ABX vancomycin and meropenem and amikacin-->christel/vanc/difluc --> before requires pressors --> as per cards # Bradycardia. --> per cards # Paraplegia. # Decubitus ulcers with sacral decubitus. # Dvt heparin sq Appreciate consultation and dw RN Subjective HEENT: Denies: no symptoms, eye pain, blurred vision, tearing, double vision, ear pain, ear discharge, nose pain, nose congestion, throat pain, throat swelling, mouth pain, mouth swelling, other Cardiovascular: Denies: no symptoms, chest pain, edema, irregular heart rate, lightheadedness, palpitations, syncope, other Gastrointestinal/Abdominal: Denies: no symptoms, abdomen distended, abdominal pain, black stools, tarry stools, blood in stool, constipated, diarrhea, difficulty swallowing, nausea, poor appetite, poor fluid intake, rectal bleeding , vomiting, other Genitourinary: Denies: no symptoms, burning, discharge, frequency, flank pain, hematuria, incontinence, pain, urgency, other Neurologic/Psychiatric: Denies: no symptoms, anxiety, depressed, emotional problems, headache, numbness, paresthesia, pre-existing deficit, seizure, tingling, tremors, weakness, other Endocrine: Denies: no symptoms, excessive sweating, flushing, intolerance to cold, intolerance to heat, increased hunger, increased thirst, increased urine, unexplained weight gain, unexplained weight loss, other Hematologic/Lymphatic: Denies: no symptoms, anemia, easy bleeding, easy bruising, adenopathy, other Allergies: Coded Allergies: No Known Allergies (Unverified , 08/15/19) Subjective 10/27 labs again refused this am, yesterday was low, chandrakant england in icu 10/28 remains in icu, for 2units prbc this am, chandrakant rn, no other events 10/29 s/p prbc, tolerated it well, no bleeding, on 1mcg levo, in icu 10/30 on abx, on levo and overnight no other events, chandrakant englandcommercial attorney\ 10/31 wounds improved, labs noted, no bleeding, hgb lower, refusing care/wound care 11/01 labs noted, no bleeding, no hematochezia, no hemoptysis, cbc ordered 11/02 meds reviewed, labs noted, no bleeding, chandrakant enlgand, no major changes, hgb 8.3 11/04 labs have been noted, no bleeding, meds reviewed, no hemolysis 11/05 functional colostomy llq, no bleeding, cbc is pending for am 11/06 labs have been refused, hgb 8.3, no bleeding, wbc is higher in am 11/07 labs have initially been refused, no bleeding in am, wbc 13, on abx 11/08 labs reviewed, no bleeding, chandrakant england, cbc is pending for am 11/09 is on vanc/difl/christel, no other changes, cbc and bmp are noted 11/11 has been asymptomatic, eating breakfast, hgb 9.3, on abx 11/12 labs are noted, no bleeding, chandrakant england, no major changes, abx 11/13 is currently on christel and vanc, chandrakant england, no major bleeding, on hep sq 11/14 labs are noted, does not want to be changed currently, cbc/bmp ordered 11/15 labs reviewed, c/o pain at picc line, no bleeding, meds noted, hgb 8.7 Objective Objective Current Medications Medications (Trade) Dose Ordered Sig/Mya Route PRN Reason Start Time Stop Time Status Last Admin Dose Admin Acetaminophen (Tylenol) 650 mg Q4H PRN ORAL Mild Pain (Pain Scale 1-3) 11/05/19 14:00 11/30/19 13:59 11/14/19 08:59 Acetaminophen (Tylenol) 650 mg Q4H PRN ORAL Temp >100.5 11/05/19 16:00 12/05/19 15:59 11/11/19 16:39 Acetaminophen/ Hydrocodone Bitart ([place] 10/325) 1 tab Q4H PRN ORAL Severe Pain (Pain Scale 7-10) 11/15/19 19:45 11/22/19 19:44 11/16/19 05:23 Ascorbic Acid (Vitamin C) 500 mg DAILY ORAL 11/06/19 09:00 11/23/19 08:59 11/15/19 08:24 Baclofen (Lioresal) 10 mg THREE TIMES A DAY ORAL 11/05/19 18:00 11/22/19 17:59 11/15/19 17:19 Cefepime HCl 2 gm/ Dextrose 100 ml @ 200 mls/hr Q8HR IVPB 11/14/19 15:00 11/21/19 14:59 11/16/19 05:22 Chlorhexidine Gluconate (Simran-Hex 2%) 1 applic DAILY@2000 TOPIC 11/13/19 20:00 02/11/20 19:59 11/15/19 20:15 Desmopressin Acetate (Ddavp) 1 spray DAILY NASAL 11/14/19 09:00 02/07/20 17:59 11/15/19 08:25 Dextrose (Dextrose 50%) 25 ml Q30M PRN IV Hypoglycemia 11/05/19 13:30 01/21/20 17:29 Dextrose (Dextrose 50%) 50 ml Q30M PRN IV Hypoglycemia 11/05/19 13:30 01/21/20 17:29 Diphenhydramine HCl (Benadryl) 25 mg Q6H PRN ORAL Itching/Pruritis 11/05/19 14:00 11/22/19 07:54 Docusate Sodium (Colace) 100 mg EVERY 12 HOURS ORAL 11/05/19 21:00 11/22/19 20:59 11/15/19 20:12 Famotidine (Pepcid) 20 mg DAILY ORAL 11/06/19 09:00 01/28/20 09:29 11/15/19 08:24 Ferrous Sulfate (Feosol) 325 mg DAILY ORAL 11/06/19 09:00 01/22/20 08:59 11/15/19 08:24 Fludrocortisone Acetate (Florinef) 0.1 mg DAILY ORAL 11/15/19 09:00 12/15/19 08:59 11/15/19 08:24 Gabapentin (Neurontin) 400 mg Q8HR ORAL 11/05/19 14:00 12/03/19 21:59 11/16/19 05:21 Heparin Sodium (Porcine) (Heparin 5000 units/ml) 5,000 units EVERY 12 HOURS SUBQ 11/05/19 21:00 12/08/19 08:59 11/15/19 20:14 Magnesium Hydroxide (Mom) 30 ml HSPRN PRN ORAL Constipation 11/13/19 11:15 12/13/19 11:14 Metronidazole 100 ml @ 100 mls/hr Q8HR IVPB 11/14/19 15:00 11/21/19 14:59 11/16/19 05:22 Midodrine (Pro-Amatine) 10 mg EVERY 8 HOURS ORAL 11/05/19 14:00 01/21/20 17:59 11/16/19 05:21 Ondansetron HCl (Zofran) 4 mg Q6H PRN IVP Nausea & Vomiting 11/05/19 14:00 11/22/19 07:57 Sodium Hypochlorite (Dakin's Quarter Strength) 1 applic DAILY TOPIC 11/06/19 09:00 11/24/19 08:59 11/15/19 08:25 Sodium Chloride (NaCl) 1 gm THREE TIMES A DAY ORAL 11/09/19 13:00 12/09/19 12:59 11/15/19 17:19 Vancomycin HCl (Vanco pharmacy to dose) 1 ea DAILY PRN MISC Per rx protocol 11/14/19 14:00 12/14/19 13:59 Vancomycin/Sodium Chloride 275 ml @ 183.333 mls/hr Q24H IVPB 11/14/19 16:00 11/19/19 15:59 11/14/19 17:49 Zinc Sulfate (Zinc Sulfate) 220 mg DAILY ORAL 11/06/19 09:00 01/22/20 08:59 11/15/19 08:24 Last 24 Hour Vital Signs Date Time Temp Pulse Resp B/P (MAP) Pulse Ox O2 Delivery O2 Flow Rate FiO2 11/16/19 04:00 99.0 90 18 118/55 (76) 96 11/16/19 00:00 98.9 94 18 122/58 (79) 96 11/15/19 21:00 Room Air 11/15/19 20:00 99.1 91 20 112/63 (79) 97 11/15/19 16:00 97.2 104 18 108/63 (78) 100 11/15/19 12:00 98.1 105 18 117/83 (94) 96 11/15/19 09:00 Room Air 11/15/19 08:00 98.2 81 18 109/59 (76) 97 11/15/19 04:00 101.7 85 18 94/51 (65) 96 11/15/19 00:00 99.5 74 18 100/50 (67) 96 11/14/19 21:00 Room Air 11/14/19 20:00 97.9 64 18 101/54 (70) 98 11/14/19 16:00 98.8 18 104/67 (79) 99 11/14/19 15:07 98.2 18 100/58 (72) 97 11/14/19 13:09 98.1 61 20 81/45 (57) 99 11/14/19 12:00 98.0 98 18 88/51 (63) 97 11/14/19 09:29 99.3 11/14/19 09:00 Room Air 11/14/19 08:00 102.0 86 18 100/59 (73) 96 Intake and Output 11/15/19 11/16/19 19:00 07:00 Intake Total 920 ml 420 ml Output Total 800 ml 700 ml Balance 120 ml -280 ml Intake Oral 720 ml 420 ml IV Total 200 ml Output Urine Total 800 ml 700 ml Labs Test 11/14/19 17:00 11/15/19 09:30 11/16/19 04:00 Urine Color Yellow Urine Appearance Clear Urine pH 6.5 (4.5-8.0) Urine Specific [place] 1.010 (1.005-1.035) Urine Protein 2+ (NEGATIVE) Urine Glucose (UA) Negative (NEGATIVE) Urine Ketones 1+ (NEGATIVE) Urine Blood Negative (NEGATIVE) Urine Nitrite Negative (NEGATIVE) Urine Bilirubin Negative (NEGATIVE) Urine Urobilinogen Normal MG/DL (0.0-1.0) Urine Leukocyte Esterase Negative (NEGATIVE) Urine RBC 0 /HPF (0 - 0) Urine WBC 0-2 /HPF (0 - 0) Urine Squamous Epithelial Cells None /LPF (NONE/OCC) Urine Amorphous Sediment Few /LPF (NONE) Urine Bacteria Occasional /HPF (NONE) White Blood Count 13.6 K/UL (4.8-10.8) 7.1 K/UL (4.8-10.8) Red Blood Count 3.15 M/UL (4.70-6.10) 3.26 M/UL (4.70-6.10) Hemoglobin 8.6 G/DL (14.2-18.0) 8.7 G/DL (14.2-18.0) Hematocrit 27.0 % (42.0-52.0) 27.7 % (42.0-52.0) Mean Corpuscular Volume 86 FL (80-99) 85 FL (80-99) Mean Corpuscular Hemoglobin 27.3 PG (27.0-31.0) 26.7 PG (27.0-31.0) Mean Corpuscular Hemoglobin Concent 31.8 G/DL (32.0-36.0) 31.4 G/DL (32.0-36.0) Red Cell Distribution Width 15.6 % (11.6-14.8) 16.0 % (11.6-14.8) Platelet Count 383 K/UL (150-450) 283 K/UL (150-450) Mean Platelet Volume 5.1 FL (6.5-10.1) 5.2 FL (6.5-10.1) Neutrophils (%) (Auto) 73.4 % (45.0-75.0) 58.2 % (45.0-75.0) Lymphocytes (%) (Auto) 17.1 % (20.0-45.0) 28.1 % (20.0-45.0) Monocytes (%) (Auto) 6.7 % (1.0-10.0) 9.2 % (1.0-10.0) Eosinophils (%) (Auto) 1.6 % (0.0-3.0) 3.1 % (0.0-3.0) Basophils (%) (Auto) 1.3 % (0.0-2.0) 1.4 % (0.0-2.0) Sodium Level 134 MMOL/L (136-145) 133 MMOL/L (136-145) Potassium Level 3.9 MMOL/L (3.5-5.1) 3.4 MMOL/L (3.5-5.1) Chloride Level 98 MMOL/L (98-107) 98 MMOL/L (98-107) Carbon Dioxide Level 26 MMOL/L (21-32) 26 MMOL/L (21-32) Anion Gap 10 mmol/L (5-15) 9 mmol/L (5-15) Blood Urea Nitrogen 17 mg/dL (7-18) 16 mg/dL (7-18) Creatinine 0.7 MG/DL (0.55-1.30) 0.6 MG/DL (0.55-1.30) Estimat Glomerular Filtration Rate > 60 mL/min (>60) > 60 mL/min (>60) Glucose Level 141 MG/DL (74-106) 128 MG/DL (74-106) Calcium Level 9.7 MG/DL (8.5-10.1) 10.2 MG/DL (8.5-10.1) Total Bilirubin 0.5 MG/DL (0.2-1.0) Aspartate Amino Transf (AST/SGOT) 20 U/L (15-37) Alanine Aminotransferase (ALT/SGPT) 21 U/L (12-78) Alkaline Phosphatase 266 U/L (46-116) Total Protein 7.6 G/DL (6.4-8.2) Albumin 1.7 G/DL (3.4-5.0) Globulin 5.9 g/dL Albumin/Globulin Ratio 0.3 (1.0-2.7) Cortisol AM Sample 15.7 UG/DL Phosphorus Level 4.2 MG/DL (2.5-4.9) Magnesium Level 1.7 MG/DL (1.8-2.4) Height (Feet): 5 Height (Inches): 7.00 Weight (Pounds): 114 Objective Physical Exam General Appearance: lethargic Lines, tubes and drains: peripheral, central line HEENT: normocephalic Neck: non-tender, normal alignment Respiratory/Chest: lungs clear Cardiovascular/Chest: normal peripheral pulses, normal rate, regular rhythm Abdomen: normal bowel sounds, non tender ++ llq colostomy Martínez Capps MD Nov 16, 2019 07:10
[2019-11-16] MEDS: Ascorbic Acid 500mg tab ORAL SCH (09:13)
[2019-11-16] MEDS: Desmopressin Nasal 5ml NASAL SCH (09:13)
[2019-11-16] MEDS: Docusate 100mg cap ORAL SCH ×2 (09:13→21:00)
[2019-11-16] MEDS: Sodium Chloride 1gm Tab ORAL SCH ×3 (09:13→18:00)
[2019-11-16] MEDS: Zinc Sulfate 220mg ORAL SCH (09:13)
[2019-11-16] MEDS: Dakin's 0.125% Soln (Quarter Strength) 16oz TOPIC SCH (09:14)
[2019-11-16] MEDS: Heparin 5000 units/ml inj SUBQ SCH ×2 (09:23→21:00)
--- NOTE | 2019-11-16 09:32 | Discharge Summary ---
Discharge Summary Hospital Course Date of Admission Oct 23, 2019 at 15:40 Date of Discharge 11/16/[address] MADRID Reason for Hospitalization: Sepsis HPI 59-year-old male with past medical history of paraplegia, sacral decubitus ulcer , anemia, hypertension, ESBL multidrug-resistant urinary tract infection [facility] from [facility] by ambulance for hypotension, general weakness and confusion. In ED he was noted to be altered with mild hypotension with SBP in 90s, lactate 2.0, UA with mild pyuria. Patient was to be admitted to tele but was upgraded to MICU due to persistent hypotension and bradycardia to 44, started on Levophed and dopamine overnight by help desk associate. Patient seen and examined, feels well, denies any specific complaints such as CP, dyspnea, weakness, dizziness. Consultations ID Surgery Pulm Cardio Endocrine Nephrology Hospital Course 59 year old man who presents from [facility] with weakness, encephalopathy, concern for septic shock, possible from UTI vs infected sacral pressure ulcer. Admitted to ICU for hypotension. Was started on Levophed and dopamine to keep MAP above 65. Required transfusion for anemia of 2 units pRBC. Hypotension eventually improved. During that time patient has episodes of bradycardia and cardiology evaluated. Was also started on midodrine for hypotension at that time. ID evaluated and cultures showed below. Pressure ulcers evaluated buy surgery. Currently on course of meropenem, vancomycin and Diflucan. Nephrolgy gave trial of DDAVP for hypernatremia but unclear of effectiveness due to patient refusing labs.will go home on .1 mg BID of desmopressin. During end of stay patient started refusing certain medicines as well. DC held due to hypotension and fevers which resolved. Evaluated by endocrine and does not have adrenal insufficiency. Patient started on Florinef #Septic shock- improving #Proteus UTI #Acute metabolic encephalopathy -improving #Paraplegia #Sacral pressure ulcer, present on admit -DC planning -Off vasopressors -Completed antibiotics -Spoke with surgery, sacral pressure ulcer does not appear to be infected -Local wound care and offloading #Sinus Bradycardia - resolved -continue telemetry -EP following #Hyponatremia #Hypokalemia -improving -refusing labs sometime -Replete when necessary -On DDAVP #Anemia, acute on chronic -2 units RBC 10/28 -Hematology following Full Code URINE CULTURE Final COMMENTS: ESBL CALLED TO LOBO AGUILAR RN BY KAYLEE SCHMITZ @0132 10/28/19 Organism 1 PROTEUS MIRABILIS COLONY COUNT: >100,000 CFU/ML Organism 2 ESCHERICHIA COLI - ESBL PRO MIRABI ESCCOL ESB M.I.C. RX M.I.C. RX --------- --- --------- --- AMPICILLIN >=32 R >=32 R CEFAZOLIN 8 S >=64 R CEFTAZIDIME R CEFTRIAXONE <=1 S >=64 R CEFEPIME R ERTAPENEM <=0.5 S GENTAMICIN <=1 S <=1 S LEVOFLOXACIN 4 I >=8 R * MEROPENEM <=0.25 S <=0.25 S NITROFURANTOIN 128 R <=16 S TRIMETHOPRIM/SULFA >=320 R >=320 R PIPERACILLIN/TAZOBACTAM <=4 S <=4 S I spent 39 minutes on this patient's discharge , and 21 mins was dedicated to counseling and care coordination. Discussed with all consultants, Charge nurse and RNs. Coordinated with SNF. Discharge Medications New Medications: Desmopressin Acetate (Desmopressin Acetate) 10 Mcg/0.1 Ml [place].pump 1 SPRAY NASAL DAILY for 30 Days, #30 SPRAY Ferrous Sulfate (Feosol) 325 Mg Tablet 325 MG ORAL DAILY for 30 Days, TAB Fludrocortisone Acetate (Fludrocortisone Acetate) 0.1 Mg Tablet 0.1 MG ORAL DAILY for 30 Days, #30 TAB Continued Medications: Acetaminophen* (Acetaminophen 325MG Tablet*) 325 Mg Tablet 650 MG ORAL Q6H PRN for pain/fever, TAB Acetaminophen* (Tylenol Extra Strength*) 500 Mg Tablet 500 MG ORAL DAILY PRN for pain management wound care, TAB 0 Refills Amino Acids/Protein Hydrolys (Pro-Stat Liquid) 30 Ml Liquid.pkt 30 ML ORAL THREE TIMES A DAY for supplement, ML Ascorbic Acid* (Ascorbic Acid*) 500 Mg Tablet 500 MG ORAL DAILY for wound healing, TAB Baclofen* (Baclofen*) 10 Mg Tablet 10 MG ORAL THREE TIMES A DAY for muscle spasm, TAB Clonazepam* (Klonopin*) 0.5 Mg Tablet 0.5 MG ORAL TID for anxiety, #15 TAB 0 Refills Cranberry Fruit (Cranberry) 450 Mg Tablet 450 MG PO DAILY for UTI, TAB Docusate Sodium* (Docusate Sodium*) 100 Mg Capsule 100 MG ORAL TWICE A DAY for prophylaxis, CAP Ferrous Sulfate* (Ferrous Sulfate*) 325 Mg Tablet 325 MG ORAL DAILY for anemia, #30 TAB 0 Refills Gabapentin* (Gabapentin*) 400 Mg Capsule 400 MG ORAL THREE TIMES A DAY for pain, CAP 0 Refills Heparin Sod (Porcine) (Heparin Sodium*) 5 000/1 Ml Vial 5000 UNITS SUBQ EVERY 12 HOURS for scheduled, VIAL Magnesium Hydroxide* (Milk Of Magnesia*) 400 Mg/5 Ml Oral.susp 30 ML ORAL DAILY PRN for Constipation, ML Multivitamins* (Multivitamins*) 1 Each Tablet 1 TAB ORAL DAILY for supplement, TAB 0 Refills Omeprazole (Omeprazole) 20 Mg Capsule.dr 20 MG ORAL TWICE A DAY for GI ppx, CAP Tramadol Hcl* (Ultram*) 50 Mg Tablet 50 MG ORAL Q6H PRN for For Pain, #12 TAB 0 Refills Discharge Condition Upon Discharge: stable Discharge Vital Signs Last Vital Signs Date Time Temp Pulse Resp B/P (MAP) Pulse Ox O2 Delivery O2 Flow Rate FiO2 11/16/19 08:24 63 91/54 (66) 11/16/19 08:00 97.9 18 96 11/15/19 21:00 Room Air Discharge Disposition Patient was discharged to Discharge Diagnoses: (1) Septic shock (2) SEAN (acute kidney injury) (3) Decubital ulcer (4) UTI (urinary tract infection) (5) Hyponatremia (6) Femur fracture (7) Encephalopathy Art Hensley M.D. Nov 16, 2019 09:32
--- NOTE | 2019-11-16 10:05 | Surgery Progress Note ---
Surgery Progress Note Subjective Additional Comments fever curve improved no n/v/f/c labs improved wbc resolved Objective Last 24 Hour Vital Signs Date Time Temp Pulse Resp B/P (MAP) Pulse Ox O2 Delivery O2 Flow Rate FiO2 11/16/19 09:00 Room Air 11/16/19 08:24 63 91/54 (66) 11/16/19 08:00 97.9 64 18 89/47 (61) 96 11/16/19 04:00 99.0 90 18 118/55 (76) 96 11/16/19 00:00 98.9 94 18 122/58 (79) 96 11/15/19 21:00 Room Air 11/15/19 20:00 99.1 91 20 112/63 (79) 97 11/15/19 16:00 97.2 104 18 108/63 (78) 100 11/15/19 12:00 98.1 105 18 117/83 (94) 96 I&O Intake and Output 11/15/19 11/16/19 19:00 07:00 Intake Total 920 ml 420 ml Output Total 800 ml 700 ml Balance 120 ml -280 ml Intake Oral 720 ml 420 ml IV Total 200 ml Output Urine Total 800 ml 700 ml Dressing: other Wound: other Cardiovascular: RSR Respiratory: decreased breath sounds Abdomen: soft, non-tender, present bowel sounds Extremities: no tenderness, no cyanosis Laboratory Tests Test 11/16/19 04:00 White Blood Count 7.1 K/UL (4.8-10.8) Red Blood Count 3.26 M/UL (4.70-6.10) L Hemoglobin 8.7 G/DL (14.2-18.0) L Hematocrit 27.7 % (42.0-52.0) L Mean Corpuscular Volume 85 FL (80-99) Mean Corpuscular Hemoglobin 26.7 PG (27.0-31.0) L Mean Corpuscular Hemoglobin Concent 31.4 G/DL (32.0-36.0) L Red Cell Distribution Width 16.0 % (11.6-14.8) H Platelet Count 283 K/UL (150-450) Mean Platelet Volume 5.2 FL (6.5-10.1) L Neutrophils (%) (Auto) 58.2 % (45.0-75.0) Lymphocytes (%) (Auto) 28.1 % (20.0-45.0) Monocytes (%) (Auto) 9.2 % (1.0-10.0) Eosinophils (%) (Auto) 3.1 % (0.0-3.0) H Basophils (%) (Auto) 1.4 % (0.0-2.0) Sodium Level 133 MMOL/L (136-145) L Potassium Level 3.4 MMOL/L (3.5-5.1) L Chloride Level 98 MMOL/L (98-107) Carbon Dioxide Level 26 MMOL/L (21-32) Anion Gap 9 mmol/L (5-15) Blood Urea Nitrogen 16 mg/dL (7-18) Creatinine 0.6 MG/DL (0.55-1.30) Estimat Glomerular Filtration Rate > 60 mL/min (>60) Glucose Level 128 MG/DL (74-106) H Calcium Level 10.2 MG/DL (8.5-10.1) H Phosphorus Level 4.2 MG/DL (2.5-4.9) Magnesium Level 1.7 MG/DL (1.8-2.4) L Plan Problems: (1) Abdominal distension Assessment & Plan: abd distention soft non tender ostomy viable and reduced KUB ordered pending results improved comfortable no complaints okay for diet s tolerated d/c planning much improved There is an inferior vena cava filter in place. Bowel gas pattern is unremarkable. Considerable stool is seen in the transverse and distal colon. There is extensive pelvic deformity, with loss of the left femoral head, chronic dislocation of the left femur, and extensive pelvic deformity, particularly on the left. Adi project over the upper pelvis Impression: Possible constipation. pending placement Nonobstructed bowel gas pattern. Moderate fecal retention of the ascending colon and sigmoid colon. The degree of stool burden has increased from October 25, 2019. IVC filter, incidentally noted. Partial subluxation of the right hip. Osteotomy of the proximal left femur with deformity of the bilateral pubic rami and left acetabulum, unchanged. 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 [place] Shaped, Full Thickness Sacral Pressure Injury which extends into L ischium. (L)15.4cm x (W)18cm x (D)2.4cm, Undermining clockwise 10-2 by 7.7cm @ 11o'clock. Base of wound is moist,pink with scattered slough at base of wound. Bone is palpable at the Base. No odor or exudate noted. Scattered partial thickness wounds and Serous filled blisters noted to R trochanteric /R Hip areas. Historical scar noted to L groin, L Hip L Buttocks. Bony protrusion noted at L Hip. Full thickness Pressure Injury R Ischium(L)5.4cm x(W)6.9cm x (D)1.8cm, Undermining clockwise 1-4 by 2.7cm @2o'clock, Tunneling@7o'clock 2.9cm. Base of wound is moist pink with scattered slough. Scattered slough noted along borders. NO odor or exudate noted. Stable dry eschar noted to medial R knee 0.7cm x (W)0.4cm. Periwound is erythematous and indurated. No elevation in skin temp noted. L heel has shaved appearance secondary to Hx of Pressure Injuries. Base of heel is pale pink. Bone is palpable. Small area of slough noted within compromised area(L)0.6cm x (W)0.8cm. L Heel Also has shaved appearance with hypertrophic scarring. Base of compromised area is pale pink, Bone is palpable, with scattered loose, dry and scaly skin. Tx.Plan: Cleanse Sacral Wound and R Ischial wounds with Dakin's 0.125% gian. Loosely pack wounds with Hydrogel impregnated Kerlix. Apply Moisture Barrier Paste periwound. Cover with ABD Pads secure with Tegaderm drsg.Daily and prn. Apply Triad Paste to R Hip/R trochanteric areas.Cover with Optifoam drsg. Change every 7 days and prn. Apply Betadine to Medial R Knee. Cover with Optifoam drsg. Change every 7 days and prn. Apply Betadine to R and L Heels. Cover each Heel with Optifoam drsgs. Change every 7 days and prn. Cover Bony Prominences as needed with Optifoam drsgs. Reposition at least every 2 [address] tolerated[address] Pillow between knees. Off-load heels with pillow. APM/SUMI Mattress overlay DAILY ESTIMATED NEEDS: Needs based on Advanced wounds, wt loss/ 40.18kg 35-40 kcals/kg 1034-7439 total kcals 1.5-2.0 g protein/kg 60-80 g total protein 25-35ml/kcal mL/kg 1769-1357 total fluid mLs NUTRITION DIAGNOSIS: Increased kcal/prot/micronutrients needs R/T wound healing and underweight status as evidenced by pt admitted w/ multiple advanced wounds, refer to WC jair, pt now w/ further 3% unfavorable wt loss, currently BMI underweight per guidelines, @62% of [place] Body Weight. 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
--- NOTE | 2019-11-16 10:26 | Pulmonology Progress Note ---
Subjective ROS Limited/Unobtainable: Yes Interval Events: no fever or leucocytosis Constitutional: Reports: fever HEENT: Repors: no symptoms Respiratory: Reports: no symptoms Cardiovascular: Reports: no symptoms Gastrointestinal/Abdominal: Denies: nausea, diarrhea Genitourinary: Reports: no symptoms Psychiatric: Denies: depression Skin: Denies: rash Musculoskeletal: Denies: pain Allergies: Coded Allergies: No Known Allergies (Unverified , 08/15/19) All Systems: reviewed and negative except above Objective Last 24 Hour Vital Signs Date Time Temp Pulse Resp B/P (MAP) Pulse Ox O2 Delivery O2 Flow Rate FiO2 11/16/19 09:00 Room Air 11/16/19 08:24 63 91/54 (66) 11/16/19 08:00 97.9 64 18 89/47 (61) 96 11/16/19 04:00 99.0 90 18 118/55 (76) 96 11/16/19 00:00 98.9 94 18 122/58 (79) 96 11/15/19 21:00 Room Air 11/15/19 20:00 99.1 91 20 112/63 (79) 97 11/15/19 16:00 97.2 104 18 108/63 (78) 100 11/15/19 12:00 98.1 105 18 117/83 (94) 96 Intake and Output 11/15/19 11/16/19 19:00 07:00 Intake Total 920 ml 420 ml Output Total 800 ml 700 ml Balance 120 ml -280 ml Intake Oral 720 ml 420 ml IV Total 200 ml Output Urine Total 800 ml 700 ml General Appearance: no acute distress HEENT: normocephalic Respiratory: chest wall non-tender, lungs clear Cardiovascular: normal peripheral pulses, regular rhythm Abdomen: normal bowel sounds Extremities: no cyanosis Laboratory Tests 11/16/19 04:00: White Blood Count 7.1, Red Blood Count 3.26L, Hemoglobin 8.7L, Hematocrit 27.7L , Mean Corpuscular Volume 85, Mean Corpuscular Hemoglobin 26.7L, Mean Corpuscular Hemoglobin Concent 31.4L, Red Cell Distribution Width 16.0H, Platelet Count 283, Mean Platelet Volume 5.2L, Neutrophils (%) (Auto) 58.2, Lymphocytes (%) (Auto) 28.1, Monocytes (%) (Auto) 9.2, Eosinophils (%) (Auto) 3.1H, Basophils (%) (Auto) 1.4, Sodium Level 133L, Potassium Level 3.4L, Chloride Level 98, Carbon Dioxide Level 26, Anion Gap 9, Blood Urea Nitrogen 16 , Creatinine 0.6, Estimat Glomerular Filtration Rate > 60, Glucose Level 128H, Calcium Level 10.2H, Phosphorus Level 4.2, Magnesium Level 1.7L Current Medications Medications (Trade) Dose Ordered Sig/Mya Route PRN Reason Start Time Stop Time Status Last Admin Dose Admin Acetaminophen (Tylenol) 650 mg Q4H PRN ORAL Mild Pain (Pain Scale 1-3) 11/05/19 14:00 11/30/19 13:59 11/14/19 08:59 Acetaminophen (Tylenol) 650 mg Q4H PRN ORAL Temp >100.5 11/05/19 16:00 12/05/19 15:59 11/11/19 16:39 Acetaminophen/ Hydrocodone Bitart ([place] 10/325) 1 tab Q4H PRN ORAL Severe Pain (Pain Scale 7-10) 11/15/19 19:45 11/22/19 19:44 11/16/19 05:23 Ascorbic Acid (Vitamin C) 500 mg DAILY ORAL 11/06/19 09:00 11/23/19 08:59 11/16/19 09:13 Baclofen (Lioresal) 10 mg THREE TIMES A DAY ORAL 11/05/19 18:00 11/22/19 17:59 11/16/19 09:13 Cefepime HCl 2 gm/ Dextrose 100 ml @ 200 mls/hr Q8HR IVPB 11/14/19 15:00 11/21/19 14:59 11/16/19 05:22 Chlorhexidine Gluconate (Simran-Hex 2%) 1 applic DAILY@2000 TOPIC 11/13/19 20:00 02/11/20 19:59 11/15/19 20:15 Desmopressin Acetate (Ddavp) 1 spray DAILY NASAL 11/14/19 09:00 02/07/20 17:59 11/16/19 09:13 Dextrose (Dextrose 50%) 25 ml Q30M PRN IV Hypoglycemia 11/05/19 13:30 01/21/20 17:29 Dextrose (Dextrose 50%) 50 ml Q30M PRN IV Hypoglycemia 11/05/19 13:30 01/21/20 17:29 Diphenhydramine HCl (Benadryl) 25 mg Q6H PRN ORAL Itching/Pruritis 11/05/19 14:00 11/22/19 07:54 Docusate Sodium (Colace) 100 mg EVERY 12 HOURS ORAL 11/05/19 21:00 11/22/19 20:59 11/16/19 09:13 Famotidine (Pepcid) 20 mg DAILY ORAL 11/06/19 09:00 01/28/20 09:29 11/16/19 09:13 Ferrous Sulfate (Feosol) 325 mg DAILY ORAL 11/06/19 09:00 01/22/20 08:59 11/16/19 09:13 Fludrocortisone Acetate (Florinef) 0.1 mg DAILY ORAL 11/15/19 09:00 12/15/19 08:59 11/16/19 09:13 Gabapentin (Neurontin) 400 mg Q8HR ORAL 11/05/19 14:00 12/03/19 21:59 11/16/19 05:21 Heparin Sodium (Porcine) (Heparin 5000 units/ml) 5,000 units EVERY 12 HOURS SUBQ 11/05/19 21:00 12/08/19 08:59 11/16/19 09:23 Magnesium Hydroxide (Mom) 30 ml HSPRN PRN ORAL Constipation 11/13/19 11:15 12/13/19 11:14 Metronidazole 100 ml @ 100 mls/hr Q8HR IVPB 11/14/19 15:00 11/21/19 14:59 11/16/19 05:22 Midodrine (Pro-Amatine) 10 mg EVERY 8 HOURS ORAL 11/05/19 14:00 01/21/20 17:59 11/16/19 05:21 Ondansetron HCl (Zofran) 4 mg Q6H PRN IVP Nausea & Vomiting 11/05/19 14:00 11/22/19 07:57 Sodium Hypochlorite (Dakin's Quarter Strength) 1 applic DAILY TOPIC 11/06/19 09:00 11/24/19 08:59 11/16/19 09:14 Sodium Chloride (NaCl) 1 gm THREE TIMES A DAY ORAL 11/09/19 13:00 12/09/19 12:59 11/16/19 09:13 Vancomycin HCl (Vanco pharmacy to dose) 1 ea DAILY PRN MISC Per rx protocol 11/14/19 14:00 12/14/19 13:59 Vancomycin/Sodium Chloride 275 ml @ 183.333 mls/hr Q24H IVPB 11/14/19 16:00 11/19/19 15:59 11/14/19 17:49 Zinc Sulfate (Zinc Sulfate) 220 mg DAILY ORAL 11/06/19 09:00 01/22/20 08:59 11/16/19 09:13 Assessment/Plan Assessment/Plan IMPRESSION: 1. Septic shock. resolved 2. Complicated UTI with history of previous ESBL infection. 3. Paraplegia. 4. Sacral decubitus. 5. [facility] resident. DISCUSSION: DVT and GI prophylaxes. ID consult and follow-up noted. I will follow carefully. Continue Oxygen, doing well on room air at this time. DC planning Gregg Curtis M.D. Gregg Curtis MD Nov 16, 2019 10:26
--- NOTE | 2019-11-16 10:31 | Nephrology Progress Note ---
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 - improved with desmporessin #Shock #UTI # infected sacral pressure ulcer #Acute metabolic encephalopathy #Paraplegia #Sacral pressure ulcer #Hypokalemia #Anemia - continue florinef 0.1mg daily -Continue desmopressin nasal - continue salt tabs 1g TID - continue midodrine 10 TID - endocrine eval noted - r/o adrenal insuffiency - antibiotics per ID - monitor lytes - avoid nephrotoxins - daily weights - strict I&Os time spent 40 min- greater than 50% on care coordination and counseling Subjective ROS Limited/Unobtainable: No Constitutional: Reports: weakness HEENT: Denies: no symptoms, eye pain, blurred vision, tearing, double vision, ear pain, ear discharge, nose pain, nose congestion, throat pain, throat swelling, mouth pain, mouth swelling, other Genitourinary: Denies: no symptoms, burning, discharge, frequency, flank pain, hematuria, incontinence, pain, urgency, other Neurologic/Psychiatric: Denies: no symptoms, anxiety, depressed, emotional problems, headache, numbness, paresthesia, pre-existing deficit, seizure, tingling, tremors, weakness, other Subjective UOP 1800 added florinef 0.1mg daily Bp stable sodium 134 on nasal desmopressin on salt tabs Objective Objective Last 24 Hour Vital Signs Date Time Temp Pulse Resp B/P (MAP) Pulse Ox O2 Delivery O2 Flow Rate FiO2 11/16/19 09:00 Room Air 11/16/19 08:24 63 91/54 (66) 11/16/19 08:00 97.9 64 18 89/47 (61) 96 11/16/19 04:00 99.0 90 18 118/55 (76) 96 11/16/19 00:00 98.9 94 18 122/58 (79) 96 11/15/19 21:00 Room Air 11/15/19 20:00 99.1 91 20 112/63 (79) 97 11/15/19 16:00 97.2 104 18 108/63 (78) 100 11/15/19 12:00 98.1 105 18 117/83 (94) 96 Intake and Output 11/15/19 11/16/19 19:00 07:00 Intake Total 920 ml 420 ml Output Total 800 ml 700 ml Balance 120 ml -280 ml Intake Oral 720 ml 420 ml IV Total 200 ml Output Urine Total 800 ml 700 ml Laboratory Tests 11/16/19 04:00: White Blood Count 7.1, Red Blood Count 3.26L, Hemoglobin 8.7L, Hematocrit 27.7L , Mean Corpuscular Volume 85, Mean Corpuscular Hemoglobin 26.7L, Mean Corpuscular Hemoglobin Concent 31.4L, Red Cell Distribution Width 16.0H, Platelet Count 283, Mean Platelet Volume 5.2L, Neutrophils (%) (Auto) 58.2, Lymphocytes (%) (Auto) 28.1, Monocytes (%) (Auto) 9.2, Eosinophils (%) (Auto) 3.1H, Basophils (%) (Auto) 1.4, Sodium Level 133L, Potassium Level 3.4L, Chloride Level 98, Carbon Dioxide Level 26, Anion Gap 9, Blood Urea Nitrogen 16 , Creatinine 0.6, Estimat Glomerular Filtration Rate > 60, Glucose Level 128H, Calcium Level 10.2H, Phosphorus Level 4.2, Magnesium Level 1.7L Height (Feet): 5 Height (Inches): 7.00 Weight (Pounds): 114 Sienna Georges M.D. Nov 16, 2019 10:31
--- NOTE | 2019-11-16 10:47 | Cardiac Electrophysiology PN ---
Assessment/Plan Assessment/Plan 1. S/P Septic shock. On Midodrine, iv fluids and antibiotic via PICC line. 2. Bradycardia. Resolved. 3. Paraplegia. 4. Urinary tract infection, 5. Decubitus ulcers with sacral decubitus. 6. S/P Ileostomy/ 7. Polyuria, DI. On NS, Salt tablets DW RN DC to [facility] today Subjective Subjective Alert in NAD. RN at bedside. S/P PICC line. BP improved with iv fluids . DC to [facility] pending today Objective Last 24 Hour Vital Signs Date Time Temp Pulse Resp B/P (MAP) Pulse Ox O2 Delivery O2 Flow Rate FiO2 11/16/19 09:00 Room Air 11/16/19 08:24 63 91/54 (66) 11/16/19 08:00 97.9 64 18 89/47 (61) 96 11/16/19 04:00 99.0 90 18 118/55 (76) 96 11/16/19 00:00 98.9 94 18 122/58 (79) 96 11/15/19 21:00 Room Air 11/15/19 20:00 99.1 91 20 112/63 (79) 97 11/15/19 16:00 97.2 104 18 108/63 (78) 100 11/15/19 12:00 98.1 105 18 117/83 (94) 96 Intake and Output 11/15/19 11/16/19 19:00 07:00 Intake Total 920 ml 420 ml Output Total 800 ml 700 ml Balance 120 ml -280 ml Intake Oral 720 ml 420 ml IV Total 200 ml Output Urine Total 800 ml 700 ml Laboratory Tests Test 11/16/19 04:00 White Blood Count 7.1 K/UL (4.8-10.8) Red Blood Count 3.26 M/UL (4.70-6.10) L Hemoglobin 8.7 G/DL (14.2-18.0) L Hematocrit 27.7 % (42.0-52.0) L Mean Corpuscular Volume 85 FL (80-99) Mean Corpuscular Hemoglobin 26.7 PG (27.0-31.0) L Mean Corpuscular Hemoglobin Concent 31.4 G/DL (32.0-36.0) L Red Cell Distribution Width 16.0 % (11.6-14.8) H Platelet Count 283 K/UL (150-450) Mean Platelet Volume 5.2 FL (6.5-10.1) L Neutrophils (%) (Auto) 58.2 % (45.0-75.0) Lymphocytes (%) (Auto) 28.1 % (20.0-45.0) Monocytes (%) (Auto) 9.2 % (1.0-10.0) Eosinophils (%) (Auto) 3.1 % (0.0-3.0) H Basophils (%) (Auto) 1.4 % (0.0-2.0) Sodium Level 133 MMOL/L (136-145) L Potassium Level 3.4 MMOL/L (3.5-5.1) L Chloride Level 98 MMOL/L (98-107) Carbon Dioxide Level 26 MMOL/L (21-32) Anion Gap 9 mmol/L (5-15) Blood Urea Nitrogen 16 mg/dL (7-18) Creatinine 0.6 MG/DL (0.55-1.30) Estimat Glomerular Filtration Rate > 60 mL/min (>60) Glucose Level 128 MG/DL (74-106) H Calcium Level 10.2 MG/DL (8.5-10.1) H Phosphorus Level 4.2 MG/DL (2.5-4.9) Magnesium Level 1.7 MG/DL (1.8-2.4) L Objective HEAD AND NECK: No JVD. LUNGS: Coarse rhonchi. CARDIOVASCULAR: Regular S1 and S2 with no gallop. ABDOMEN: Soft.S/P Ileostomy EXTREMITIES: No pitting edema, however, has pressure ulcers. Carloz Estes MD Nov 16, 2019 10:47
[2019-11-16] MEDS: Vancomycin 1.25gm/NS Premix q24h IVPB SCH (16:00)
[2019-11-16] MEDS: Dyna-Hex 2% Top Sol 2oz TOPIC SCH (21:07)
--- NOTE | 2019-11-16 22:16 | Infectious Diseases Prog Note ---
Assessment/Plan Assessment/Plan ASSESSMENT AND PLAN: 1. hx sepsis/shock, hx proteus uti, hx esbl e.coli uti, possible aspiration pna/ hcap vs cap, sacral wound - ? 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 fungemia bp low again, fevers persist, ? new line infection, ? adrenal insufficiency covid-19 testing negative surveillance blood cultures negative, chest x-ray negative, uc-c. tropicalis , recurrent fungal uti, fungemia risk - discontinue vancomycin, cefepime and flagyl - treat for adrenal insufficiency - diflucan x 5 days - d/w RN - wound care per surgery - s/p full abx course 2. ICU care. 3. Sacral wound -wound mostly clean, management per surgery 4. Ostomy malfunction - per surgery 5. Hypertension. 6. Paraplegia. 7. Anemia. 8. History of decubitus ulcer, rule out infection. Infectious diseases is following. The patient on antibiotics. 9. Hypertension treatment per primary care team. 10. Continue treatment per primary consultants. 11. No known drug allergies. 12. Social history is negative. 13. Family history is noncontributory. 14. MAR was noted. 15. Case discussed with RN. Subjective Constitutional: Denies: fever HEENT: Denies: congestion Respiratory: Denies: shortness of breath Cardiovascular: Denies: chest pain Gastrointestinal/Abdominal: Denies: nausea, vomiting, diarrhea Genitourinary: Reports: other - + donohue Neurologic: Denies: headache Psychiatric: Denies: depression Skin: Denies: rash Hematologic: Denies: bleeding Musculoskeletal: Denies: pain Allergies: Coded Allergies: No Known Allergies (Unverified , 08/15/19) Objective Last 24 Hour Vital Signs Date Time Temp Pulse Resp B/P (MAP) Pulse Ox O2 Delivery O2 Flow Rate FiO2 11/16/19 16:00 98.1 63 17 103/56 (72) 97 11/16/19 12:00 98.1 85 18 102/60 (74) 99 11/16/19 09:00 Room Air 11/16/19 08:24 63 91/54 (66) 11/16/19 08:00 97.9 64 18 89/47 (61) 96 11/16/19 04:00 99.0 90 18 118/55 (76) 96 11/16/19 00:00 98.9 94 18 122/58 (79) 96 Height (Feet): 5 Height (Inches): 7.00 Weight (Pounds): 114 General Appearance: no acute distress HEENT: normocephalic, atraumatic, anicteric, mucous membranes moist Respiratory/Chest: lungs clear, normal breath sounds, no respiratory distress, no accessory muscle use Cardiovascular: normal rate, regular rhythm, no gallop/murmur, no JVD Abdomen: normal bowel sounds, soft, non tender, no organomegaly, non distended Genitourinary: other - + donohue - urine cloudy Extremities: no cyanosis Skin: no rash 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 There is some atelectasis at the left lung base as well. Right jugular central venous catheter remains. The heart size is normal. Impression: New/increased bilateral basilar infiltrates, since prior study 2019 Chest x-ray - 10/27/19 - Procedure: XRAY Chest 1v Indication: Shortness of breath Technique: One view of the chest Comparison: 10/25/2019 Findings: There is atelectasis possibly some focal consolidation at the right lung base. Atelectatic changes previously demonstrated at the left lung base have largely cleared. Right jugular central venous catheter remains. The heart size is normal. Impression: Improving left basilar atelectasis. Otherwise little change coordinator 2 days findings as noted Chest x-ray - 10/29/19 - FINDINGS: Lungs: Persistent subsegmental atelectasis in bilateral lower lungs, not significant changed compared to the prior exam. No new consolidation is seen. Pleural space: Unremarkable. The costophrenic angles are sharp. No visible pneumothorax. Heart: Unremarkable. No cardiomegaly. Mediastinum: Unremarkable. Bones/joints: Unremarkable. Vasculature: Mild atherosclerotic calcifications are noted within the aortic arch. Tubes, lines and devices: Stable positioning of a right IJ central venous catheter with the tip in the SVC. Telemetry leads overlie the thorax. IMPRESSION: Persistent subsegmental atelectasis in bilateral lower lungs, not significantly changed compared to the prior exam. Chest x-rasy - 11/03/19 - Procedure: XRAY Chest 1v Indication: Cough Technique: One view of the chest Comparison: 10/29/2019 Findings: There are increased atelectatic changes at the lung bases. Interim removal of previously demonstrated central venous catheter. The pleural spaces are clear. The heart size is normal. Impression: Increasing bilateral basilar atelectasis Interim central venous catheter removal. Chest x-ray - 11/07/19 - Procedure: XRAY Chest 1v Indication: Shortness of breath Technique: One view of the chest Comparison: 11/03/2019 Findings: Bilateral basilar atelectatic changes appear similar to the previous exam. There may be some patchy left perihilar and bilateral peripheral consolidation. The heart size is normal. Impression: New or increased faint patchy peripheral and left perihilar consolidative opacities, possibly reflecting multifocal pneumonia, since prior study 03/04/2019 Persistent bilateral basilar atelectatic changes Chest x-ray - 11/09/19 - Procedure: XRAY Chest 1v Indication: Cough Technique: One view of the chest Comparison: 11/07/2019 Findings: There is improved aeration of the lung bases, although some atelectasis persists bilaterally. No new infiltrates. The pleural spaces are clear. The heart size is normal. Impression: Improved aeration with decreased basilar atelectasis Chest x-ray - 11/14/19 - Procedure: XRAY Chest 1v Indication: Cough Technique: One view of the chest Comparison: 11/09/2019 Findings: Bilateral basilar atelectasis has increased. No new infiltrates. The pleural spaces remain clear. The heart size is normal. Impression: Increased bilateral basilar atelectasis, since prior study 11/09/2019 Chest x-ray - 11/15/19 - Procedure: XRAY Chest 1v Indication: Cough Technique: One view of the chest Comparison: 11/13/2019 Findings: Again demonstrated is bilateral basilar atelectasis versus scarring. The lungs and pleural spaces are otherwise clear. The heart size is normal. Interim placement right arm PICC. Impression: No acute process Microbiology Date/Time Source Procedure Growth Status 11/13/19 02:00 Blood Blood Culture - Preliminary NO GROWTH AFTER 72 HOURS Resulted 11/02/19 13:30 Nasopharynx SARS-CoV-2 RdRp Gene Assay - Final Complete 11/12/19 16:30 Indwelling Cath Urine Culture - Final Rita Tropicalis Complete 11/03/19 08:00 Catheter Site Catheter Tip Culture - Final Staphylococcus Sp Coag Neg Complete Laboratory Tests Test 11/16/19 04:00 White Blood Count 7.1 K/UL (4.8-10.8) Red Blood Count 3.26 M/UL (4.70-6.10) L Hemoglobin 8.7 G/DL (14.2-18.0) L Hematocrit 27.7 % (42.0-52.0) L Mean Corpuscular Volume 85 FL (80-99) Mean Corpuscular Hemoglobin 26.7 PG (27.0-31.0) L Mean Corpuscular Hemoglobin Concent 31.4 G/DL (32.0-36.0) L Red Cell Distribution Width 16.0 % (11.6-14.8) H Platelet Count 283 K/UL (150-450) Mean Platelet Volume 5.2 FL (6.5-10.1) L Neutrophils (%) (Auto) 58.2 % (45.0-75.0) Lymphocytes (%) (Auto) 28.1 % (20.0-45.0) Monocytes (%) (Auto) 9.2 % (1.0-10.0) Eosinophils (%) (Auto) 3.1 % (0.0-3.0) H Basophils (%) (Auto) 1.4 % (0.0-2.0) Sodium Level 133 MMOL/L (136-145) L Potassium Level 3.4 MMOL/L (3.5-5.1) L Chloride Level 98 MMOL/L (98-107) Carbon Dioxide Level 26 MMOL/L (21-32) Anion Gap 9 mmol/L (5-15) Blood Urea Nitrogen 16 mg/dL (7-18) Creatinine 0.6 MG/DL (0.55-1.30) Estimat Glomerular Filtration Rate > 60 mL/min (>60) Glucose Level 128 MG/DL (74-106) H Calcium Level 10.2 MG/DL (8.5-10.1) H Phosphorus Level 4.2 MG/DL (2.5-4.9) Magnesium Level 1.7 MG/DL (1.8-2.4) L Current Medications Medications (Trade) Dose Ordered Sig/Mya Route PRN Reason Start Time Stop Time Status Last Admin Dose Admin Acetaminophen (Tylenol) 650 mg Q4H PRN ORAL Mild Pain (Pain Scale 1-3) 11/05/19 14:00 11/30/19 13:59 11/14/19 08:59 Acetaminophen (Tylenol) 650 mg Q4H PRN ORAL Temp >100.5 11/05/19 16:00 12/05/19 15:59 11/11/19 16:39 Acetaminophen/ Hydrocodone Bitart ([place] 10/325) 1 tab Q4H PRN ORAL Severe Pain (Pain Scale 7-10) 11/15/19 19:45 11/22/19 19:44 11/16/19 21:12 Ascorbic Acid (Vitamin C) 500 mg DAILY ORAL 11/06/19 09:00 11/23/19 08:59 11/16/19 09:13 Baclofen (Lioresal) 10 mg THREE TIMES A DAY ORAL 11/05/19 18:00 11/22/19 17:59 11/16/19 09:13 Chlorhexidine Gluconate (Simran-Hex 2%) 1 applic DAILY@1999 TOPIC 11/13/19 20:00 02/11/20 19:59 11/16/19 21:07 Desmopressin Acetate (Ddavp) 1 spray DAILY NASAL 11/14/19 09:00 02/07/20 17:59 11/16/19 09:13 Dextrose (Dextrose 50%) 25 ml Q30M PRN IV Hypoglycemia 11/05/19 13:30 01/21/20 17:29 Dextrose (Dextrose 50%) 50 ml Q30M PRN IV Hypoglycemia 11/05/19 13:30 01/21/20 17:29 Diphenhydramine HCl (Benadryl) 25 mg Q6H PRN ORAL Itching/Pruritis 11/05/19 14:00 11/22/19 07:54 Docusate Sodium (Colace) 100 mg EVERY 12 HOURS ORAL 11/05/19 21:00 11/22/19 20:59 11/16/19 09:13 Famotidine (Pepcid) 20 mg DAILY ORAL 11/06/19 09:00 11/15/20 09:29 11/16/19 09:13 Ferrous Sulfate (Feosol) 325 mg DAILY ORAL 11/06/19 09:00 01/22/20 08:59 11/16/19 09:13 Fluconazole (Diflucan) 100 mg DAILY ORAL 11/17/19 09:00 11/24/19 08:59 UNV Fludrocortisone Acetate (Florinef) 0.1 mg DAILY ORAL 11/15/19 09:00 12/15/19 08:59 11/16/19 09:13 Gabapentin (Neurontin) 400 mg Q8HR ORAL 11/05/19 14:00 12/03/19 21:59 11/16/19 21:09 Heparin Sodium (Porcine) (Heparin 5000 units/ml) 5,000 units EVERY 12 HOURS SUBQ 11/05/19 21:00 12/08/19 08:59 11/16/19 09:23 Magnesium Hydroxide (Mom) 30 ml HSPRN PRN ORAL Constipation 11/13/19 11:15 12/13/19 11:14 Midodrine (Pro-Amatine) 10 mg EVERY 8 HOURS ORAL 11/05/19 14:00 01/21/20 17:59 11/16/19 05:21 Ondansetron HCl (Zofran) 4 mg Q6H PRN IVP Nausea & Vomiting 11/05/19 14:00 11/22/19 07:57 Sodium Hypochlorite (Dakin's Quarter Strength) 1 applic DAILY TOPIC 11/06/19 09:00 11/24/19 08:59 11/16/19 09:14 Sodium Chloride (NaCl) 1 gm THREE TIMES A DAY ORAL 11/09/19 13:00 12/09/19 12:59 11/16/19 09:13 Zinc Sulfate (Zinc Sulfate) 220 mg DAILY ORAL 11/06/19 09:00 01/22/20 08:59 11/16/19 09:13 Sharif Painting MD Nov 16, 2019 22:16
[2019-11-17] VITALS: BP 108/63
[2019-11-17 04:00] VITALS: BP 105/65
[2019-11-17] MEDS: Midodrine 10mg tab ORAL SCH ×3 (06:00→21:24)
[2019-11-17 08:00] VITALS: BP 110/65
[2019-11-17] MEDS: Sodium Chloride 1gm Tab ORAL SCH ×3 (08:56→17:21)
[2019-11-17] MEDS: Zinc Sulfate 220mg ORAL SCH (08:56)
[2019-11-17] MEDS: Ascorbic Acid 500mg tab ORAL SCH (08:56)
[2019-11-17] MEDS: Fluconazole 100mg tab ORAL SCH (08:56)
[2019-11-17] MEDS: HYDROcodone/Acetamin 10/325 tab ORAL PRN ×3 (08:56→20:21)
[2019-11-17] MEDS: Docusate 100mg cap ORAL SCH ×2 (08:56→20:21)
[2019-11-17] MEDS ORDERED: Fluconazole 100mg tab ORAL SCH (09:00)
[2019-11-17] MEDS: Heparin 5000 units/ml inj SUBQ SCH ×2 (09:01→20:21)
--- NOTE | 2019-11-17 09:07 | Nephrology Progress Note ---
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 - improved with desmporessin #Shock #UTI # infected sacral pressure ulcer #Acute metabolic encephalopathy #Paraplegia #Sacral pressure ulcer #Hypokalemia #Anemia - continue florinef 0.1mg daily -Continue desmopressin nasal - continue salt tabs 1g TID - continue midodrine 10 TID - endocrine eval noted - r/o adrenal insuffiency - antibiotics per ID - monitor lytes - avoid nephrotoxins - daily weights - strict I&Os time spent 40 min- greater than 50% on care coordination and counseling Subjective ROS Limited/Unobtainable: No Constitutional: Reports: weakness HEENT: Denies: no symptoms, eye pain, blurred vision, tearing, double vision, ear pain, ear discharge, nose pain, nose congestion, throat pain, throat swelling, mouth pain, mouth swelling, other Genitourinary: Denies: no symptoms, burning, discharge, frequency, flank pain, hematuria, incontinence, pain, urgency, other Neurologic/Psychiatric: Denies: no symptoms, anxiety, depressed, emotional problems, headache, numbness, paresthesia, pre-existing deficit, seizure, tingling, tremors, weakness, other Subjective UOP 1800 added florinef 0.1mg daily Bp stable sodium 134 on nasal desmopressin on salt tabs Objective Objective Last 24 Hour Vital Signs Date Time Temp Pulse Resp B/P (MAP) Pulse Ox O2 Delivery O2 Flow Rate FiO2 11/17/19 04:00 97.8 69 19 105/65 (78) 97 11/17/19 00:00 97.8 68 19 108/63 (78) 98 11/16/19 21:42 98.1 11/16/19 21:00 Room Air 11/16/19 20:00 97.0 89 20 105/59 (74) 97 11/16/19 16:00 98.1 63 17 103/56 (72) 97 11/16/19 12:00 98.1 85 18 102/60 (74) 99 Intake and Output 11/16/19 11/17/19 19:00 07:00 Intake Total 1000 ml 400 ml Output Total 700 ml 600 ml Balance 300 ml -200 ml Intake Oral 900 ml 400 ml IV Total 100 ml Output Urine Total 700 ml 600 ml Height (Feet): 5 Height (Inches): 7.00 Weight (Pounds): 114 Sienna Georges M.D. Nov 17, 2019 09:07
[2019-11-17] MEDS: Desmopressin Nasal 5ml NASAL SCH (09:11)
[2019-11-17] MEDS: Dakin's 0.125% Soln (Quarter Strength) 16oz TOPIC SCH (09:13)
[2019-11-17 12:00] VITALS: BP 92/55
--- NOTE | 2019-11-17 13:00 | Surgery Progress Note ---
Surgery Progress Note Subjective Additional Comments afebrile for >24hrs comfortable tolerating diet. no n/v/f/c no complaints labs improved Objective Last 24 Hour Vital Signs Date Time Temp Pulse Resp B/P (MAP) Pulse Ox O2 Delivery O2 Flow Rate FiO2 11/17/19 12:00 98.0 75 18 92/55 (67) 97 11/17/19 09:00 Room Air 11/17/19 08:00 98.0 71 18 110/65 (80) 98 11/17/19 04:00 97.8 69 19 105/65 (78) 97 11/17/19 00:00 97.8 68 19 108/63 (78) 98 11/16/19 21:42 98.1 11/16/19 21:00 Room Air 11/16/19 20:00 97.0 89 20 105/59 (74) 97 11/16/19 16:00 98.1 63 17 103/56 (72) 97 I&O Intake and Output 11/16/19 11/17/19 19:00 07:00 Intake Total 1000 ml 400 ml Output Total 700 ml 600 ml Balance 300 ml -200 ml Intake Oral 900 ml 400 ml IV Total 100 ml Output Urine Total 700 ml 600 ml Dressing: other Wound: other Cardiovascular: RSR Respiratory: decreased breath sounds Abdomen: soft, non-tender, present bowel sounds Extremities: no tenderness, no cyanosis Plan Problems: (1) Abdominal distension Assessment & Plan: abd distention soft non tender ostomy viable and reduced KUB ordered pending results improved comfortable no complaints okay for diet s tolerated d/c planning much improved There is an inferior vena cava filter in place. Bowel gas pattern is unremarkable. Considerable stool is seen in the transverse and distal colon. There is extensive pelvic deformity, with loss of the left femoral head, chronic dislocation of the left femur, and extensive pelvic deformity, particularly on the left. [place] project over the upper pelvis Impression: Possible constipation. pending placement Nonobstructed bowel gas pattern. Moderate fecal retention of the ascending colon and sigmoid colon. The degree of stool burden has increased from October 25, 2019. IVC filter, incidentally noted. Partial subluxation of the right hip. Osteotomy of the proximal left femur with deformity of the bilateral pubic rami and left acetabulum, unchanged. 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 [place] Shaped, Full Thickness Sacral Pressure Injury which extends into L ischium. (L)15.4cm x (W)18cm x (D)2.4cm, Undermining clockwise 10-2 by 7.7cm @ 11o'clock. Base of wound is moist,pink with scattered slough at base of wound. Bone is palpable at the Base. No odor or exudate noted. Scattered partial thickness wounds and Serous filled blisters noted to R trochanteric /R Hip areas. Historical scar noted to L groin, L Hip L Buttocks. Bony protrusion noted at L Hip. Full thickness Pressure Injury R Ischium(L)5.4cm x(W)6.9cm x (D)1.8cm, Undermining clockwise 1-4 by 2.7cm @2o'clock, Tunneling@7o'clock 2.9cm. Base of wound is moist pink with scattered slough. Scattered slough noted along borders. NO odor or exudate noted. Stable dry eschar noted to medial R knee 0.7cm x (W)0.4cm. Periwound is erythematous and indurated. No elevation in skin temp noted. L heel has shaved appearance secondary to Hx of Pressure Injuries. Base of heel is pale pink. Bone is palpable. Small area of slough noted within compromised area(L)0.6cm x (W)0.8cm. L Heel Also has shaved appearance with hypertrophic scarring. Base of compromised area is pale pink, Bone is palpable, with scattered loose, dry and scaly skin. Tx.Plan: Cleanse Sacral Wound and R Ischial wounds with Dakin's 0.125% gian. Loosely pack wounds with Hydrogel impregnated Kerlix. Apply Moisture Barrier Paste periwound. Cover with ABD Pads secure with Tegaderm drsg.Daily and prn. Apply Triad Paste to R Hip/R trochanteric areas.Cover with Optifoam drsg. Change every 7 days and prn. Apply Betadine to Medial R Knee. Cover with Optifoam drsg. Change every 7 days and prn. Apply Betadine to R and L Heels. Cover each Heel with Optifoam drsgs. Change every 7 days and prn. Cover Bony Prominences as needed with Optifoam drsgs. Reposition at least every [address] tolerated[address] Pillow between knees. Off-load heels with pillow. APM/SUMI Mattress overlay DAILY ESTIMATED NEEDS: Needs based on Advanced wounds, wt loss/ 40.18kg 35-40 kcals/kg 4618-5717 total kcals 1.5-2.0 g protein/kg 60-80 g total protein 25-35ml/kcal mL/kg 5490-3332 total fluid mLs NUTRITION DIAGNOSIS: Increased kcal/prot/micronutrients needs R/T wound healing and underweight status as evidenced by pt admitted w/ multiple advanced wounds, refer to WC eval, pt now w/ further 3% unfavorable wt loss, currently BMI underweight per guidelines, @62% of [place] Body Weight. 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
--- NOTE | 2019-11-17 13:27 | Pulmonology Progress Note ---
Subjective ROS Limited/Unobtainable: No Interval Events: no fever or leucocytosis Constitutional: Denies: fever HEENT: Repors: no symptoms Respiratory: Reports: no symptoms Cardiovascular: Reports: no symptoms Gastrointestinal/Abdominal: Denies: nausea, vomiting, diarrhea Genitourinary: Reports: no symptoms Psychiatric: Denies: depression Skin: Denies: rash Musculoskeletal: Denies: pain Allergies: Coded Allergies: No Known Allergies (Unverified , 08/15/19) All Systems: reviewed and negative except above Objective Last 24 Hour Vital Signs Date Time Temp Pulse Resp B/P (MAP) Pulse Ox O2 Delivery O2 Flow Rate FiO2 11/17/19 12:00 98.0 75 18 92/55 (67) 97 11/17/19 09:00 Room Air 11/17/19 08:00 98.0 71 18 110/65 (80) 98 11/17/19 04:00 97.8 69 19 105/65 (78) 97 11/17/19 00:00 97.8 68 19 108/63 (78) 98 11/16/19 21:42 98.1 11/16/19 21:00 Room Air 11/16/19 20:00 97.0 89 20 105/59 (74) 97 11/16/19 16:00 98.1 63 17 103/56 (72) 97 Intake and Output 11/16/19 11/17/19 19:00 07:00 Intake Total 1000 ml 400 ml Output Total 700 ml 600 ml Balance 300 ml -200 ml Intake Oral 900 ml 400 ml IV Total 100 ml Output Urine Total 700 ml 600 ml General Appearance: no acute distress HEENT: normocephalic Respiratory: chest wall non-tender, lungs clear Cardiovascular: normal peripheral pulses, regular rhythm Abdomen: normal bowel sounds Extremities: no cyanosis Current Medications Medications (Trade) Dose Ordered Sig/Mya Route PRN Reason Start Time Stop Time Status Last Admin Dose Admin Acetaminophen (Tylenol) 650 mg Q4H PRN ORAL Mild Pain (Pain Scale 1-3) 11/05/19 14:00 11/30/19 13:59 11/17/19 00:26 Acetaminophen (Tylenol) 650 mg Q4H PRN ORAL Temp >100.5 11/05/19 16:00 12/05/19 15:59 11/11/19 16:39 Acetaminophen/ Hydrocodone Bitart ([place] 10/325) 1 tab Q4H PRN ORAL Severe Pain (Pain Scale 7-10) 11/15/19 19:45 11/22/19 19:44 11/17/19 08:56 Ascorbic Acid (Vitamin C) 500 mg DAILY ORAL 11/06/19 09:00 11/23/19 08:59 11/17/19 08:56 Baclofen (Lioresal) 10 mg THREE TIMES A DAY ORAL 11/05/19 18:00 11/22/19 17:59 11/17/19 13:21 Chlorhexidine Gluconate (Simran-Hex 2%) 1 applic DAILY@1999 TOPIC 11/13/19 20:00 02/11/20 19:59 11/16/19 21:07 Desmopressin Acetate (Ddavp) 1 spray DAILY NASAL 11/14/19 09:00 02/07/20 17:59 11/17/19 09:11 Dextrose (Dextrose 50%) 25 ml Q30M PRN IV Hypoglycemia 11/05/19 13:30 01/21/20 17:29 Dextrose (Dextrose 50%) 50 ml Q30M PRN IV Hypoglycemia 11/05/19 13:30 01/21/20 17:29 Diphenhydramine HCl (Benadryl) 25 mg Q6H PRN ORAL Itching/Pruritis 11/05/19 14:00 11/22/19 07:54 Docusate Sodium (Colace) 100 mg EVERY 12 HOURS ORAL 11/05/19 21:00 11/22/19 20:59 11/17/19 08:56 Famotidine (Pepcid) 20 mg DAILY ORAL 11/06/19 09:00 01/28/20 09:29 11/17/19 08:56 Ferrous Sulfate (Feosol) 325 mg DAILY ORAL 11/06/19 09:00 01/22/20 08:59 11/17/19 08:56 Fluconazole (Diflucan) 200 mg DAILY ORAL 11/17/19 09:00 11/24/19 08:59 11/17/19 08:56 Fludrocortisone Acetate (Florinef) 0.1 mg DAILY ORAL 11/15/19 09:00 12/15/19 08:59 11/17/19 08:56 Gabapentin (Neurontin) 400 mg Q8HR ORAL 11/05/19 14:00 12/03/19 21:59 11/17/19 13:21 Heparin Sodium (Porcine) (Heparin 5000 units/ml) 5,000 units EVERY 12 HOURS SUBQ 11/05/19 21:00 12/08/19 08:59 11/17/19 09:01 Magnesium Hydroxide (Mom) 30 ml HSPRN PRN ORAL Constipation 11/13/19 11:15 12/13/19 11:14 Midodrine (Pro-Amatine) 10 mg EVERY 8 HOURS ORAL 11/05/19 14:00 01/21/20 17:59 11/17/19 13:21 Ondansetron HCl (Zofran) 4 mg Q6H PRN IVP Nausea & Vomiting 11/05/19 14:00 11/22/19 07:57 Sodium Hypochlorite (Dakin's Quarter Strength) 1 applic DAILY TOPIC 11/06/19 09:00 11/24/19 08:59 11/17/19 09:13 Sodium Chloride (NaCl) 1 gm THREE TIMES A DAY ORAL 11/09/19 13:00 12/09/19 12:59 11/17/19 13:21 Zinc Sulfate (Zinc Sulfate) 220 mg DAILY ORAL 11/06/19 09:00 01/22/20 08:59 11/17/19 08:56 Assessment/Plan Assessment/Plan IMPRESSION: 1. Septic shock. resolved 2. Complicated UTI with history of previous ESBL infection. 3. Paraplegia. 4. Sacral decubitus. 5. custodial resident. DISCUSSION: DVT and GI prophylaxes. ID consult and follow-up noted. I will follow carefully. Continue Oxygen, doing well on room air at this time. DC planning Haily Monzon Omar Syed MD Nov 17, 2019 13:27
--- NOTE | 2019-11-17 13:52 | General Progress Note ---
Assessment/Plan Status: stable Assessment/Plan: Assessment/Plan: 59 year old man who presents from [facility] with weakness, encephalopathy, concern for septic shock, possible from UTI vs infected sacral pressure ulcer. 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 -Evaluated by endocrine for adrenal insufficiency -AM cortisol normal however patient continues to have labile BP and hyponatremia -Appreciate Nephrology consult - Appreciate Endocrine consult - Will continue Florinef, Salt Tab, and DDAVP - Continue Midodrine given labile BP - CT Brain without masses noted, will defer MRI - Refusing labs #Septic shock- resolved #Proteus UTI #Acute metabolic encephalopathy -improving #Paraplegia #Sacral pressure ulcer, present on admit - Periods of hypotension and fever through hospitalization, VSS now - BC & CXR wnl - Covid 19 - negative - S/p vancomycin, cefepime, and flagyl - Spoke with surgery, sacral pressure ulcer does not appear to be infected - Local wound care and offloading - Appreciate ID consult #Fungal UTI - Patient is high risk for fungemia - Diflucan 11/16 - 11/23 -Appreciate ID Consult #Sinus Bradycardia - resolved -continue telemetry -EP following #Hyponatremia #Hypokalemia -improving -Intermittently refusing labs -Replete when necessary -On DDAVP intranasal #Anemia, acute on chronic -2 units RBC 10/28 -Hematology following, no signs of overt bleeding - Keep Hb >7 FEN: Heparin q12 Jevity TF I spent 40 minutes on this patient's care today, and 20mins was dedicated to counseling and care coordination. Discussed with all consultants, Charge nurse , RN, and CM. Coordinated with SNF. Patient unable to be discharged 11/15 due to lack of bed availability. Subjective Date patient seen: Nov 17, 2019 Time patient seen: 11:25 Constitutional: Denies: no symptoms, chills, diaphoresis, fever, malaise, weakness, other HEENT: Denies: no symptoms, eye pain, blurred vision, tearing, double vision, ear pain, ear discharge, nose pain, nose congestion, throat pain, throat swelling, mouth pain, mouth swelling, other Cardiovascular: Denies: no symptoms, chest pain, edema, irregular heart rate, lightheadedness, palpitations, syncope, other Respiratory: Denies: no symptoms, cough, orthopnea, shortness of breath, SOB with excertion, SOB at rest, sputum, stridor, wheezing, other Gastrointestinal/Abdominal: Denies: no symptoms, abdomen distended, abdominal pain, black stools, tarry stools, blood in stool, constipated, diarrhea, difficulty swallowing, nausea, poor appetite, poor fluid intake, rectal bleeding , vomiting, other Genitourinary: Denies: no symptoms, burning, discharge, frequency, flank pain, hematuria, incontinence, pain, urgency, other Neurologic/Psychiatric: Denies: no symptoms, anxiety, depressed, emotional problems, headache, numbness, paresthesia, pre-existing deficit, seizure, tingling, tremors, weakness, other Endocrine: Denies: no symptoms, excessive sweating, flushing, intolerance to cold, intolerance to heat, increased hunger, increased thirst, increased urine, unexplained weight gain, unexplained weight loss, other Hematologic/Lymphatic: Denies: no symptoms, anemia, easy bleeding, easy bruising, other Allergies: Coded Allergies: No Known Allergies (Unverified , 08/15/19) Subjective Spoke with patient in limited Z[place]ian Subjectively feeling well Planned for discharge yesterday however, no bed available Patient is refusing all lab draws Objective Last 24 Hour Vital Signs Date Time Temp Pulse Resp B/P (MAP) Pulse Ox O2 Delivery O2 Flow Rate FiO2 11/17/19 12:00 98.0 75 18 92/55 (67) 97 11/17/19 09:00 Room Air 11/17/19 08:00 98.0 71 18 110/65 (80) 98 11/17/19 04:00 97.8 69 19 105/65 (78) 97 11/17/19 00:00 97.8 68 19 108/63 (78) 98 11/16/19 21:42 98.1 11/16/19 21:00 Room Air 11/16/19 20:00 97.0 89 20 105/59 (74) 97 11/16/19 16:00 98.1 63 17 103/56 (72) 97 Intake and Output 11/16/19 11/17/19 19:00 07:00 Intake Total 1000 ml 400 ml Output Total 700 ml 600 ml Balance 300 ml -200 ml Intake Oral 900 ml 400 ml IV Total 100 ml Output Urine Total 700 ml 600 ml Height (Feet): 5 Height (Inches): 7.00 Weight (Pounds): 114 General Appearance: no apparent distress, alert - Oriented to person and place , not time EENT: PERRL/EOMI Neck: supple Cardiovascular: regular rhythm, no gallop/murmur Respiratory/Chest: lungs clear, normal breath sounds, no respiratory distress Abdomen: normal bowel sounds, non tender, soft Extremities: other - Contractures in lower extremities 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 Nov 17, 2019 13:52
--- NOTE | 2019-11-17 14:09 | Cardiac Electrophysiology PN ---
Assessment/Plan Assessment/Plan 1. S/P Septic shock. On Midodrine, iv fluids and antibiotic via PICC line. 2. Bradycardia. Resolved. 3. Paraplegia. 4. Urinary tract infection, 5. Decubitus ulcers with sacral decubitus. 6. S/P Ileostomy/ 7. Polyuria, DI. On NS, Salt tablets DW RN DC to [facility] pending Subjective Subjective Alert in NAD. RN at bedside. S/P PICC line. . DC to SN[facility] pending Objective Last 24 Hour Vital Signs Date Time Temp Pulse Resp B/P (MAP) Pulse Ox O2 Delivery O2 Flow Rate FiO2 11/17/19 12:00 98.0 75 18 92/55 (67) 97 11/17/19 09:00 Room Air 11/17/19 08:00 98.0 71 18 110/65 (80) 98 11/17/19 04:00 97.8 69 19 105/65 (78) 97 11/17/19 00:00 97.8 68 19 108/63 (78) 98 11/16/19 21:42 98.1 11/16/19 21:00 Room Air 11/16/19 20:00 97.0 89 20 105/59 (74) 97 11/16/19 16:00 98.1 63 17 103/56 (72) 97 Intake and Output 11/16/19 11/17/19 19:00 07:00 Intake Total 1000 ml 400 ml Output Total 700 ml 600 ml Balance 300 ml -200 ml Intake Oral 900 ml 400 ml IV Total 100 ml Output Urine Total 700 ml 600 ml Objective HEAD AND NECK: No JVD. LUNGS: Coarse rhonchi. CARDIOVASCULAR: Regular S1 and S2 with no gallop. ABDOMEN: Soft.S/P Ileostomy EXTREMITIES: No pitting edema, however, has pressure ulcers. Carloz Estes MD Nov 17, 2019 14:09
--- NOTE | 2019-11-17 14:38 | Hematology/Onc Progress Note ---
Assessment/Plan Assessment/Plan Assessment/recs # Anemia rule out gi bleed, as well as iron deficiency --> hgb 8.2-->7.2-->7.1->6.9-->8.6-->8.3-->9.3-->8.3-->9.3--.9.2->8.7 --> anemia panel ordered--> cw acd --> occult blood pending-->neg --> gi eval prn --> transfuse as needed --> transfuse 2 units 10/27 --> po iron to continue # Coagulopathy with elev ptt/inr --> vitk and ffp as needed --> no bleeding noted at this time # Thrombocytosis likely reactive process --> plt 398-->608-->605 --> abx as needed # Sepsis due to uti, with Hypotension likely due to septic shock. Was diuresing heavily at 300 mL an hour. --> Continue on midodrine and dopamine. --> ABX vancomycin and meropenem and amikacin-->christel/vanc/difluc --> before requires pressors --> as per cards # Bradycardia. --> per cards # Paraplegia. # Decubitus ulcers with sacral decubitus. # Dvt heparin sq Appreciate consultation and dw RN Subjective Constitutional: Denies: no symptoms, chills, fever, malaise, weakness, other HEENT: Denies: no symptoms, eye pain, blurred vision, tearing, double vision, ear pain, ear discharge, nose pain, nose congestion, throat pain, throat swelling, mouth pain, mouth swelling, other Cardiovascular: Denies: no symptoms, chest pain, edema, irregular heart rate, lightheadedness, palpitations, syncope, other Respiratory: Denies: no symptoms, cough, shortness of breath, SOB with excertion, SOB at rest, sputum, wheezing, other Gastrointestinal/Abdominal: Denies: no symptoms, abdomen distended, abdominal pain, black stools, tarry stools, blood in stool, constipated, diarrhea, difficulty swallowing, nausea, poor appetite, poor fluid intake, rectal bleeding , vomiting, other Endocrine: Denies: no symptoms, excessive sweating, flushing, intolerance to cold, intolerance to heat, increased hunger, increased thirst, increased urine, unexplained weight gain, unexplained weight loss, other Hematologic/Lymphatic: Denies: no symptoms, anemia, easy bleeding, easy bruising, adenopathy, other Allergies: Coded Allergies: No Known Allergies (Unverified , 08/15/19) Subjective 10/27 labs again refused this am, yesterday was low, chandrakant rn in icu 10/28 remains in icu, for 2units prbc this am, chandrakant rn, no other events 10/29 s/p prbc, tolerated it well, no bleeding, on 1mcg levo, in icu 10/30 on abx, on levo and overnight no other events, 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\ 10/31 wounds improved, labs noted, no bleeding, hgb lower, refusing care/wound care 11/01 labs noted, no bleeding, no hematochezia, no hemoptysis, cbc ordered 11/02 meds reviewed, labs noted, no bleeding, chandrakant [place], no major changes, hgb 8.3 11/04 labs have been noted, no bleeding, meds reviewed, no hemolysis 11/05 functional colostomy llq, no bleeding, cbc is pending for am 11/06 labs have been refused, hgb 8.3, no bleeding, wbc is higher in am 11/07 labs have initially been refused, no bleeding in am, wbc 13, on abx 11/08 labs reviewed, no bleeding, chandrakant [place], cbc is pending for am 11/09 is on vanc/difl/christel, no other changes, cbc and bmp are noted 11/11 has been asymptomatic, eating breakfast, hgb 9.3, on abx 11/12 labs are noted, no bleeding, chandrakant [place], no major changes, abx 11/13 is currently on christel and vanc, chandrakant [place], no major bleeding, on hep sq 11/14 labs are noted, does not want to be changed currently, cbc/bmp ordered 11/15 labs reviewed, c/o pain at picc line, no bleeding, meds noted, hgb 8.7 11/16 labs are noted, has been cleared, for dc planning to snf Objective Objective Current Medications Medications (Trade) Dose Ordered Sig/Mya Route PRN Reason Start Time Stop Time Status Last Admin Dose Admin Acetaminophen (Tylenol) 650 mg Q4H PRN ORAL Mild Pain (Pain Scale 1-3) 8/23/20 14:00 11/30/19 13:59 11/17/19 00:26 Acetaminophen (Tylenol) 650 mg Q4H PRN ORAL Temp >100.5 11/05/19 16:00 12/05/19 15:59 11/11/19 16:39 Acetaminophen/ Hydrocodone Bitart (Golva 10/325) 1 tab Q4H PRN ORAL Severe Pain (Pain Scale 7-10) 11/15/19 19:45 11/22/19 19:44 11/17/19 08:56 Ascorbic Acid (Vitamin C) 500 mg DAILY ORAL 11/06/19 09:00 11/23/19 08:59 11/17/19 08:56 Baclofen (Lioresal) 10 mg THREE TIMES A DAY ORAL 11/05/19 18:00 11/22/19 17:59 11/17/19 13:21 Chlorhexidine Gluconate (Simran-Hex 2%) 1 applic DAILY@1999 TOPIC 11/13/19 20:00 02/11/20 19:59 11/16/19 21:07 Desmopressin Acetate (Ddavp) 1 spray DAILY NASAL 11/14/19 09:00 02/07/20 17:59 11/17/19 09:11 Dextrose (Dextrose 50%) 25 ml Q30M PRN IV Hypoglycemia 11/05/19 13:30 01/21/20 17:29 Dextrose (Dextrose 50%) 50 ml Q30M PRN IV Hypoglycemia 11/05/19 13:30 01/21/20 17:29 Diphenhydramine HCl (Benadryl) 25 mg Q6H PRN ORAL Itching/Pruritis 11/05/19 14:00 11/22/19 07:54 Docusate Sodium (Colace) 100 mg EVERY 12 HOURS ORAL 11/05/19 21:00 11/22/19 20:59 11/17/19 08:56 Famotidine (Pepcid) 20 mg DAILY ORAL 11/06/19 09:00 01/28/20 09:29 11/17/19 08:56 Ferrous Sulfate (Feosol) 325 mg DAILY ORAL 11/06/19 09:00 01/22/20 08:59 11/17/19 08:56 Fluconazole (Diflucan) 200 mg DAILY ORAL 11/17/19 09:00 11/24/19 08:59 11/17/19 08:56 Fludrocortisone Acetate (Florinef) 0.1 mg DAILY ORAL 11/15/19 09:00 12/15/19 08:59 11/17/19 08:56 Gabapentin (Neurontin) 400 mg Q8HR ORAL 11/05/19 14:00 12/03/19 21:59 11/17/19 13:21 Heparin Sodium (Porcine) (Heparin 5000 units/ml) 5,000 units EVERY 12 HOURS SUBQ 11/05/19 21:00 12/08/19 08:59 11/17/19 09:01 Magnesium Hydroxide (Mom) 30 ml HSPRN PRN ORAL Constipation 11/13/19 11:15 12/13/19 11:14 Midodrine (Pro-Amatine) 10 mg EVERY 8 HOURS ORAL 11/05/19 14:00 01/21/20 17:59 11/17/19 13:21 Ondansetron HCl (Zofran) 4 mg Q6H PRN IVP Nausea & Vomiting 11/05/19 14:00 11/22/19 07:57 Sodium Hypochlorite (Dakin's Quarter Strength) 1 applic DAILY TOPIC 11/06/19 09:00 11/24/19 08:59 11/17/19 09:13 Sodium Chloride (NaCl) 1 gm THREE TIMES A DAY ORAL 11/09/19 13:00 12/09/19 12:59 11/17/19 13:21 Zinc Sulfate (Zinc Sulfate) 220 mg DAILY ORAL 11/06/19 09:00 01/22/20 08:59 11/17/19 08:56 Last 24 Hour Vital Signs Date Time Temp Pulse Resp B/P (MAP) Pulse Ox O2 Delivery O2 Flow Rate FiO2 11/17/19 12:00 98.0 75 18 92/55 (67) 97 11/17/19 09:00 Room Air 11/17/19 08:00 98.0 71 18 110/65 (80) 98 11/17/19 04:00 97.8 69 19 105/65 (78) 97 11/17/19 00:00 97.8 68 19 108/63 (78) 98 11/16/19 21:42 98.1 11/16/19 21:00 Room Air 11/16/19 20:00 97.0 89 20 105/59 (74) 97 11/16/19 16:00 98.1 63 17 103/56 (72) 97 11/16/19 12:00 98.1 85 18 102/60 (74) 99 11/16/19 09:00 Room Air 11/16/19 08:24 63 91/54 (66) 11/16/19 08:00 97.9 64 18 89/47 (61) 96 11/16/19 04:00 99.0 90 18 118/55 (76) 96 11/16/19 00:00 98.9 94 18 122/58 (79) 96 11/15/19 21:00 Room Air 11/15/19 20:00 99.1 91 20 112/63 (79) 97 11/15/19 16:00 97.2 104 18 108/63 (78) 100 Intake and Output 11/16/19 11/17/19 19:00 07:00 Intake Total 1000 ml 400 ml Output Total 700 ml 600 ml Balance 300 ml -200 ml Intake Oral 900 ml 400 ml IV Total 100 ml Output Urine Total 700 ml 600 ml Labs Test 11/14/19 17:00 11/15/19 09:30 11/16/19 04:00 Urine Color Yellow Urine Appearance Clear Urine pH 6.5 (4.5-8.0) Urine Specific [place] 1.010 (1.005-1.035) Urine Protein 2+ (NEGATIVE) Urine Glucose (UA) Negative (NEGATIVE) Urine Ketones 1+ (NEGATIVE) Urine Blood Negative (NEGATIVE) Urine Nitrite Negative (NEGATIVE) Urine Bilirubin Negative (NEGATIVE) Urine Urobilinogen Normal MG/DL (0.0-1.0) Urine Leukocyte Esterase Negative (NEGATIVE) Urine RBC 0 /HPF (0 - 0) Urine WBC 0-2 /HPF (0 - 0) Urine Squamous Epithelial Cells None /LPF (NONE/OCC) Urine Amorphous Sediment Few /LPF (NONE) Urine Bacteria Occasional /HPF (NONE) White Blood Count 13.6 K/UL (4.8-10.8) 7.1 K/UL (4.8-10.8) Red Blood Count 3.15 M/UL (4.70-6.10) 3.26 M/UL (4.70-6.10) Hemoglobin 8.6 G/DL (14.2-18.0) 8.7 G/DL (14.2-18.0) Hematocrit 27.0 % (42.0-52.0) 27.7 % (42.0-52.0) Mean Corpuscular Volume 86 FL (80-99) 85 FL (80-99) Mean Corpuscular Hemoglobin 27.3 PG (27.0-31.0) 26.7 PG (27.0-31.0) Mean Corpuscular Hemoglobin Concent 31.8 G/DL (32.0-36.0) 31.4 G/DL (32.0-36.0) Red Cell Distribution Width 15.6 % (11.6-14.8) 16.0 % (11.6-14.8) Platelet Count 383 K/UL (150-450) 283 K/UL (150-450) Mean Platelet Volume 5.1 FL (6.5-10.1) 5.2 FL (6.5-10.1) Neutrophils (%) (Auto) 73.4 % (45.0-75.0) 58.2 % (45.0-75.0) Lymphocytes (%) (Auto) 17.1 % (20.0-45.0) 28.1 % (20.0-45.0) Monocytes (%) (Auto) 6.7 % (1.0-10.0) 9.2 % (1.0-10.0) Eosinophils (%) (Auto) 1.6 % (0.0-3.0) 3.1 % (0.0-3.0) Basophils (%) (Auto) 1.3 % (0.0-2.0) 1.4 % (0.0-2.0) Sodium Level 134 MMOL/L (136-145) 133 MMOL/L (136-145) Potassium Level 3.9 MMOL/L (3.5-5.1) 3.4 MMOL/L (3.5-5.1) Chloride Level 98 MMOL/L (98-107) 98 MMOL/L (98-107) Carbon Dioxide Level 26 MMOL/L (21-32) 26 MMOL/L (21-32) Anion Gap 10 mmol/L (5-15) 9 mmol/L (5-15) Blood Urea Nitrogen 17 mg/dL (7-18) 16 mg/dL (7-18) Creatinine 0.7 MG/DL (0.55-1.30) 0.6 MG/DL (0.55-1.30) Estimat Glomerular Filtration Rate > 60 mL/min (>60) > 60 mL/min (>60) Glucose Level 141 MG/DL (74-106) 128 MG/DL (74-106) Calcium Level 9.7 MG/DL (8.5-10.1) 10.2 MG/DL (8.5-10.1) Total Bilirubin 0.5 MG/DL (0.2-1.0) Aspartate Amino Transf (AST/SGOT) 20 U/L (15-37) Alanine Aminotransferase (ALT/SGPT) 21 U/L (12-78) Alkaline Phosphatase 266 U/L (46-116) Total Protein 7.6 G/DL (6.4-8.2) Albumin 1.7 G/DL (3.4-5.0) Globulin 5.9 g/dL Albumin/Globulin Ratio 0.3 (1.0-2.7) Cortisol AM Sample 15.7 UG/DL Adrenocorticotropic Hormone 15.1 pg/mL (7.2-63.3) Phosphorus Level 4.2 MG/DL (2.5-4.9) Magnesium Level 1.7 MG/DL (1.8-2.4) Height (Feet): 5 Height (Inches): 7.00 Weight (Pounds): 114 Objective Physical Exam General Appearance: lethargic Lines, tubes and drains: peripheral, central line HEENT: normocephalic Neck: non-tender, normal alignment Respiratory/Chest: lungs clear Cardiovascular/Chest: normal peripheral pulses, normal rate, regular rhythm Abdomen: normal bowel sounds, non tender ++ llq colostomy Martínez Capps MD Nov 17, 2019 14:38
[2019-11-17 16:00] VITALS: BP 102/54
[2019-11-17 20:00] VITALS: BP 101/58
[2019-11-17] MEDS: Dyna-Hex 2% Top Sol 2oz TOPIC SCH (20:20)
[2019-11-18] VITALS (7 sets, daily range): BP systolic 97–113; BP diastolic 59–74
[2019-11-18] MEDS: HYDROcodone/Acetamin 10/325 tab ORAL PRN ×5 (01:42→21:23)
[2019-11-18] MEDS: Midodrine 10mg tab ORAL SCH ×3 (05:35→22:32)
[2019-11-18] MEDS: Desmopressin Nasal 5ml NASAL SCH (08:32)
[2019-11-18] MEDS: Dakin's 0.125% Soln (Quarter Strength) 16oz TOPIC SCH (08:32)
[2019-11-18] MEDS: Fluconazole 100mg tab ORAL SCH (08:32)
[2019-11-18] MEDS: Ascorbic Acid 500mg tab ORAL SCH (08:32)
[2019-11-18] MEDS: Docusate 100mg cap ORAL SCH ×2 (08:33→21:20)
[2019-11-18] MEDS: Zinc Sulfate 220mg ORAL SCH (08:33)
[2019-11-18] MEDS: Sodium Chloride 1gm Tab ORAL SCH ×3 (08:33→17:09)
[2019-11-18] MEDS: Heparin 5000 units/ml inj SUBQ SCH ×2 (08:35→21:22)
--- NOTE | 2019-11-18 10:47 | Surgery Progress Note ---
Surgery Progress Note Subjective Symptoms: improved, tolerating diet, passing flatus, BM Objective Last 24 Hour Vital Signs Date Time Temp Pulse Resp B/P (MAP) Pulse Ox O2 Delivery O2 Flow Rate FiO2 11/18/19 09:00 Room Air 11/18/19 08:00 98.0 79 18 98/64 (75) 97 11/18/19 06:43 98.1 11/18/19 04:00 98.1 70 20 102/59 (73) 98 11/18/19 00:00 97.2 88 20 108/65 (79) 98 11/17/19 21:00 Room Air 11/17/19 20:00 99.8 74 18 101/58 (72) 98 11/17/19 16:00 97.9 63 18 102/54 (70) 98 11/17/19 12:00 98.0 75 18 92/55 (67) 97 I&O Intake and Output 11/17/19 11/18/19 19:00 07:00 Intake Total 800 ml 600 ml Output Total 800 ml 400 ml Balance 0 ml 200 ml Intake Oral 800 ml 600 ml Output Urine Total 800 ml 400 ml Wound: clean Cardiovascular: RSR Respiratory: clear Abdomen: soft, non-tender, present bowel sounds, non-distended Extremities: no edema, no tenderness, no cyanosis Plan Problems: (1) Abdominal distension Assessment & Plan: abd distention soft non tender ostomy viable and reduced KUB ordered pending results improved comfortable no complaints okay for diet s tolerated d/c planning much improved There is an inferior vena cava filter in place. Bowel gas pattern is unremarkable. Considerable stool is seen in the transverse and distal colon. There is extensive pelvic deformity, with loss of the left femoral head, chronic dislocation of the left femur, and extensive pelvic deformity, particularly on the left. Adi project over the upper pelvis Impression: Possible constipation. pending placement Nonobstructed bowel gas pattern. Moderate fecal retention of the ascending colon and sigmoid colon. The degree of stool burden has increased from October 25, 2019. IVC filter, incidentally noted. Partial subluxation of the right hip. Osteotomy of the proximal left femur with deformity of the bilateral pubic rami and left acetabulum, unchanged. 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 [place] Shaped, Full Thickness Sacral Pressure Injury which extends into L ischium. (L)15.4cm x (W)18cm x (D)2.4cm, Undermining clockwise 10-2 by 7.7cm @ 11o'clock. Base of wound is moist,pink with scattered slough at base of wound. Bone is palpable at the Base. No odor or exudate noted. Scattered partial thickness wounds and Serous filled blisters noted to R trochanteric /R Hip areas. Historical scar noted to L groin, L Hip L Buttocks. Bony protrusion noted at L Hip. Full thickness Pressure Injury R Ischium(L)5.4cm x(W)6.9cm x (D)1.8cm, Undermining clockwise 1-4 by 2.7cm @2o'clock, Tunneling@7o'clock 2.9cm. Base of wound is moist pink with scattered slough. Scattered slough noted along borders. NO odor or exudate noted. Stable dry eschar noted to medial R knee 0.7cm x (W)0.4cm. Periwound is erythematous and indurated. No elevation in skin temp noted. L heel has shaved appearance secondary to Hx of Pressure Injuries. Base of heel is pale pink. Bone is palpable. Small area of slough noted within compromised area(L)0.6cm x (W)0.8cm. L Heel Also has shaved appearance with hypertrophic scarring. Base of compromised area is pale pink, Bone is palpable, with scattered loose, dry and scaly skin. Tx.Plan: Cleanse Sacral Wound and R Ischial wounds with Dakin's 0.125% gian. Loosely pack wounds with Hydrogel impregnated Kerlix. Apply Moisture Barrier Paste periwound. Cover with ABD Pads secure with Tegaderm drsg.Daily and prn. Apply Triad Paste to R Hip/R trochanteric areas.Cover with Optifoam drsg. Change every 7 days and prn. Apply Betadine to Medial R Knee. Cover with Optifoam drsg. Change every 7 days and prn. Apply Betadine to R and L Heels. Cover each Heel with Optifoam drsgs. Change every 7 days and prn. Cover Bony Prominences as needed with Optifoam drsgs. Reposition at least every 2 [address] Pillow between knees. Off-load heels with pillow. APM/SUMI Mattress overlay DAILY ESTIMATED NEEDS: Needs based on Advanced wounds, wt loss/ 40.18kg 35-40 kcals/kg 3432-9966 total kcals 1.5-2.0 g protein/kg 60-80 g total protein 25-35ml/kcal mL/kg 9611-8338 total fluid mLs NUTRITION DIAGNOSIS: Increased kcal/prot/micronutrients needs R/T wound healing and underweight status as evidenced by pt admitted w/ multiple advanced wounds, refer to WC eval, pt now w/ further 3% unfavorable wt loss, currently BMI underweight per guidelines, @62% of [place] Body Weight. CURRENT DIET: Regular PO DIET RECOMMENDATIONS: REGULAR, texture as tolerated or per [employer] VERIFIER + Ensure Enlive TID w/ meals ADDITIONAL RECOMMENDATIONS: * Per SNF: HT=66" WT=88lbs; -> vs current EMR wt =120# -> Recalibrate bed scale for accurate wts * Continue Ensure TID, whole milk TID w/ meals * Monitor for continued improved/good Po intake * Wound healing:add MVI w/ min qdaily Continue w/ ZnSO4, Vit C, and Amari BID * Monitor Na, need for fluid restriction - (132 improved, on nacl) (15) SEAN (acute kidney injury) (16) Ileostomy prolapse Assessment & Plan: currently reduced but abd distended pending films films reviewed improved okay for diet d/c planning Cornelius Salgado Nov 18, 2019 10:47
--- NOTE | 2019-11-18 10:59 | General Progress Note ---
Assessment/Plan Status: stable Assessment/Plan: Assessment/Plan: 59 year old man who presents from LVT with weakness, encephalopathy, concern for septic shock, possible from UTI vs infected sacral pressure ulcer. 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 -Evaluated by endocrine for adrenal insufficiency -AM cortisol normal however patient continues to have labile BP and hyponatremia -Appreciate Nephrology consult - Appreciate Endocrine consult - Will continue Florinef, Salt Tab, and DDAVP - Continue Midodrine given labile BP - CT Brain without masses noted, will defer MRI - Refusing labs #Septic shock- resolved #Proteus UTI #Acute metabolic encephalopathy -improving #Paraplegia #Sacral pressure ulcer, present on admit - Periods of hypotension and fever through hospitalization, VSS now - BC & CXR wnl - Covid 19 - negative - S/p vancomycin, cefepime, and flagyl - Spoke with surgery, sacral pressure ulcer does not appear to be infected - Local wound care and offloading - Appreciate ID consult #Fungal UTI - Patient is high risk for fungemia - Diflucan 11/16 - 11/23 -Appreciate ID Consult #Sinus Bradycardia - resolved -continue telemetry -EP following #Hyponatremia #Hypokalemia -improving -Intermittently refusing labs -Replete when necessary -On DDAVP intranasal #Anemia, acute on chronic -2 units RBC 10/28 -Hematology following, no signs of overt bleeding - Keep Hb >7 #Chronic Lower extremity pain Likely 2' contractures and prior accident - Gabapentin, [place], Baclofen FEN: Heparin q12 Jevity TF #Dispo - Awaiting SNF bed placement. Appreciate referrals placed by CM. I spent 40 minutes on this patient's care today, and 20mins was dedicated to counseling and care coordination. Discussed with all consultants, Charge nurse , RN, and CM. Coordinated with SNF. Subjective Date patient seen: Nov 18, 2019 Time patient seen: 10:20 ROS Limited/Unobtainable: No Constitutional: Denies: no symptoms, chills, diaphoresis, fever, malaise, weakness, other HEENT: Denies: no symptoms, eye pain, blurred vision, tearing, double vision, ear pain, ear discharge, nose pain, nose congestion, throat pain, throat swelling, mouth pain, mouth swelling, other Cardiovascular: Denies: no symptoms, chest pain, edema, irregular heart rate, lightheadedness, palpitations, syncope, other Respiratory: Denies: no symptoms, cough, orthopnea, shortness of breath, SOB with excertion, SOB at rest, sputum, stridor, wheezing, other Gastrointestinal/Abdominal: Denies: no symptoms, abdomen distended, abdominal pain, black stools, tarry stools, blood in stool, constipated, diarrhea, difficulty swallowing, nausea, poor appetite, poor fluid intake, rectal bleeding , vomiting, other Genitourinary: Denies: no symptoms, burning, discharge, frequency, flank pain, hematuria, incontinence, pain, urgency, other Neurologic/Psychiatric: Denies: no symptoms, anxiety, depressed, emotional problems, headache, numbness, paresthesia, pre-existing deficit, seizure, tingling, tremors, weakness, other Endocrine: Denies: no symptoms, excessive sweating, flushing, intolerance to cold, intolerance to heat, increased hunger, increased thirst, increased urine, unexplained weight gain, unexplained weight loss, other Hematologic/Lymphatic: Denies: no symptoms, anemia, easy bleeding, easy bruising, other Allergies: Coded Allergies: No Known Allergies (Unverified , 08/15/19) All Systems: reviewed and negative except above Subjective Spoke with patient in limited [place] Subjectively feeling well Continues to refuse lab draws x2 Some pain in lower extremities that is chronic Objective Last 24 Hour Vital Signs Date Time Temp Pulse Resp B/P (MAP) Pulse Ox O2 Delivery O2 Flow Rate FiO2 11/18/19 09:00 Room Air 11/18/19 08:00 98.0 79 18 98/64 (75) 97 11/18/19 06:43 98.1 11/18/19 04:00 98.1 70 20 102/59 (73) 98 11/18/19 00:00 97.2 88 20 108/65 (79) 98 11/17/19 21:00 Room Air 11/17/19 20:00 99.8 74 18 101/58 (72) 98 11/17/19 16:00 97.9 63 18 102/54 (70) 98 11/17/19 12:00 98.0 75 18 92/55 (67) 97 Intake and Output 11/17/19 11/18/19 19:00 07:00 Intake Total 800 ml 600 ml Output Total 800 ml 400 ml Balance 0 ml 200 ml Intake Oral 800 ml 600 ml Output Urine Total 800 ml 400 ml Height (Feet): 5 Height (Inches): 7.00 Weight (Pounds): 114 General Appearance: no apparent distress, alert EENT: PERRL/EOMI Neck: non-tender, supple Cardiovascular: normal rate, regular rhythm Respiratory/Chest: lungs clear Abdomen: non tender, soft, other - PEG tube c/d/i Pelvis: other - Deferred Genitourinary/Rectal: other - Deferred Extremities: other - Contractures in lower extremities 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 Nov 18, 2019 10:59
--- NOTE | 2019-11-18 12:02 | Pulmonology Progress Note ---
Subjective ROS Limited/Unobtainable: No Interval Events: no fever or leucocytosis Constitutional: Denies: fever HEENT: Repors: no symptoms Respiratory: Reports: no symptoms Cardiovascular: Reports: no symptoms Gastrointestinal/Abdominal: Denies: nausea, vomiting, diarrhea Genitourinary: Reports: no symptoms Psychiatric: Denies: depression Skin: Denies: rash Musculoskeletal: Denies: pain Allergies: Coded Allergies: No Known Allergies (Unverified , 08/15/19) All Systems: reviewed and negative except above Objective Last 24 Hour Vital Signs Date Time Temp Pulse Resp B/P (MAP) Pulse Ox O2 Delivery O2 Flow Rate FiO2 11/18/19 09:00 Room Air 11/18/19 08:00 98.0 79 18 98/64 (75) 97 11/18/19 06:43 98.1 11/18/19 04:00 98.1 70 20 102/59 (73) 98 11/18/19 00:00 97.2 88 20 108/65 (79) 98 11/17/19 21:00 Room Air 11/17/19 20:00 99.8 74 18 101/58 (72) 98 11/17/19 16:00 97.9 63 18 102/54 (70) 98 Intake and Output 11/17/19 11/18/19 19:00 07:00 Intake Total 800 ml 600 ml Output Total 800 ml 400 ml Balance 0 ml 200 ml Intake Oral 800 ml 600 ml Output Urine Total 800 ml 400 ml General Appearance: no acute distress HEENT: normocephalic Respiratory: chest wall non-tender, lungs clear Cardiovascular: normal peripheral pulses, regular rhythm Abdomen: normal bowel sounds Extremities: no cyanosis Current Medications Medications (Trade) Dose Ordered Sig/Mya Route PRN Reason Start Time Stop Time Status Last Admin Dose Admin Acetaminophen (Tylenol) 650 mg Q4H PRN ORAL Mild Pain (Pain Scale 1-3) 11/05/19 14:00 11/30/19 13:59 11/17/19 00:26 Acetaminophen (Tylenol) 650 mg Q4H PRN ORAL Temp >100.5 11/05/19 16:00 12/05/19 15:59 11/11/19 16:39 Acetaminophen/ Hydrocodone Bitart ([place] 10/325) 1 tab Q4H PRN ORAL Severe Pain (Pain Scale 7-10) 11/15/19 19:45 11/22/19 19:44 11/18/19 06:13 Ascorbic Acid (Vitamin C) 500 mg DAILY ORAL 11/06/19 09:00 11/23/19 08:59 11/18/19 08:32 Baclofen (Lioresal) 10 mg THREE TIMES A DAY ORAL 11/05/19 18:00 11/22/19 17:59 11/18/19 08:33 Chlorhexidine Gluconate (Simran-Hex 2%) 1 applic DAILY@2000 TOPIC 11/13/19 20:00 02/11/20 19:59 11/17/19 20:20 Desmopressin Acetate (Ddavp) 1 spray DAILY NASAL 11/14/19 09:00 02/07/20 17:59 11/18/19 08:32 Dextrose (Dextrose 50%) 25 ml Q30M PRN IV Hypoglycemia 11/05/19 13:30 01/21/20 17:29 Dextrose (Dextrose 50%) 50 ml Q30M PRN IV Hypoglycemia 11/05/19 13:30 01/21/20 17:29 Diphenhydramine HCl (Benadryl) 25 mg Q6H PRN ORAL Itching/Pruritis 11/05/19 14:00 11/22/19 07:54 Docusate Sodium (Colace) 100 mg EVERY 12 HOURS ORAL 11/05/19 21:00 11/22/19 20:59 11/18/19 08:33 Famotidine (Pepcid) 20 mg DAILY ORAL 11/06/19 09:00 01/28/20 09:29 11/18/19 08:33 Ferrous Sulfate (Feosol) 325 mg DAILY ORAL 11/06/19 09:00 01/22/20 08:59 11/18/19 08:32 Fluconazole (Diflucan) 200 mg DAILY ORAL 11/17/19 09:00 11/24/19 08:59 11/18/19 08:32 Fludrocortisone Acetate (Florinef) 0.1 mg DAILY ORAL 11/15/19 09:00 12/15/19 08:59 11/18/19 08:33 Gabapentin (Neurontin) 400 mg Q8HR ORAL 11/05/19 14:00 12/03/19 21:59 11/18/19 05:36 Heparin Sodium (Porcine) (Heparin 5000 units/ml) 5,000 units EVERY 12 HOURS SUBQ 11/05/19 21:00 12/08/19 08:59 11/18/19 08:35 Magnesium Hydroxide (Mom) 30 ml HSPRN PRN ORAL Constipation 11/13/19 11:15 12/13/19 11:14 Midodrine (Pro-Amatine) 10 mg EVERY 8 HOURS ORAL 11/05/19 14:00 01/21/20 17:59 11/18/19 05:35 Ondansetron HCl (Zofran) 4 mg Q6H PRN IVP Nausea & Vomiting 11/05/19 14:00 11/22/19 07:57 Sodium Hypochlorite (Dakin's Quarter Strength) 1 applic DAILY TOPIC 11/06/19 09:00 11/24/19 08:59 11/18/19 08:32 Sodium Chloride (NaCl) 1 gm THREE TIMES A DAY ORAL 11/09/19 13:00 12/09/19 12:59 11/18/19 08:33 Zinc Sulfate (Zinc Sulfate) 220 mg DAILY ORAL 11/06/19 09:00 01/22/20 08:59 11/18/19 08:33 Assessment/Plan Assessment/Plan IMPRESSION: 1. Septic shock. resolved 2. Complicated UTI with history of previous ESBL infection. 3. Paraplegia. 4. Sacral decubitus. 5. correction resident. DISCUSSION: DVT and GI prophylaxes. Continue Oxygen prn, doing well on room air at this time. DC planning Haily Monzon Omar Syed MD Nov 18, 2019 12:02
--- NOTE | 2019-11-18 14:42 | Infectious Diseases Prog Note ---
Assessment/Plan Assessment/Plan ASSESSMENT AND PLAN: 1. hx sepsis/shock, hx proteus uti, hx esbl e.coli uti, possible aspiration pna/ hcap vs cap, sacral wound - ? infected, mrsa and vre colonization persistent fevers, leukocytosis, hx helper electrical line infection and line change, hx fungal uti, ? fungemia bp low again, fevers persist, ? new line infection, ? adrenal insufficiency covid-19 testing negative surveillance blood cultures negative, chest x-ray negative, uc-c. tropicalis , recurrent fungal uti, fungemia risk - s/p abx - treat for adrenal insufficiency - diflucan x 3 days - d/w RN - fevers better - wound care per surgery - s/p full abx course 2. ICU care. 3. Sacral wound -wound mostly clean, management per surgery 4. Ostomy malfunction - per surgery 5. Hypertension. 6. Paraplegia. 7. Anemia. 8. History of decubitus ulcer, rule out infection. Infectious diseases is following. The patient on antibiotics. 9. Hypertension treatment per primary care team. 10. Continue treatment per primary consultants. 11. No known drug allergies. 12. Social history is negative. 13. Family history is noncontributory. 14. MAR was noted. 15. Case discussed with RN. Subjective Constitutional: Denies: fever HEENT: Denies: congestion Respiratory: Denies: shortness of breath Gastrointestinal/Abdominal: Denies: nausea, vomiting, diarrhea Genitourinary: Reports: other - + donohue Neurologic: Denies: headache Psychiatric: Denies: depression Skin: Denies: rash Hematologic: Denies: bleeding Musculoskeletal: Denies: pain Allergies: Coded Allergies: No Known Allergies (Unverified , 08/15/19) Objective Last 24 Hour Vital Signs Date Time Temp Pulse Resp B/P (MAP) Pulse Ox O2 Delivery O2 Flow Rate FiO2 11/18/19 12:00 97.8 18 110/65 (80) 97 11/18/19 09:00 Room Air 11/18/19 08:00 98.0 79 18 98/64 (75) 97 11/18/19 06:43 98.1 11/18/19 04:00 98.1 70 20 102/59 (73) 98 11/18/19 00:00 97.2 88 20 108/65 (79) 98 11/17/19 21:00 Room Air 11/17/19 20:00 99.8 74 18 101/58 (72) 98 11/17/19 16:00 97.9 63 18 102/54 (70) 98 Height (Feet): 5 Height (Inches): 7.00 Weight (Pounds): 114 General Appearance: no acute distress HEENT: normocephalic, atraumatic, anicteric, mucous membranes moist Respiratory/Chest: lungs clear, normal breath sounds, no respiratory distress, no accessory muscle use Cardiovascular: normal rate, regular rhythm, no gallop/murmur, no JVD Abdomen: normal bowel sounds, soft, non tender, no organomegaly, non distended Genitourinary: other - + donohue - urine slt cloudy Extremities: no cyanosis Skin: no rash 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 There is some atelectasis at the left lung base as well. Right jugular central venous catheter remains. The heart size is normal. Impression: New/increased bilateral basilar infiltrates, since prior study 2019 Chest x-ray - 10/27/19 - Procedure: XRAY Chest 1v Indication: Shortness of breath Technique: One view of the chest Comparison: 10/25/2019 Findings: There is atelectasis possibly some focal consolidation at the right lung base. Atelectatic changes previously demonstrated at the left lung base have largely cleared. Right jugular central venous catheter remains. The heart size is normal. Impression: Improving left basilar atelectasis. 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 No new consolidation is seen. Pleural space: Unremarkable. The costophrenic angles are sharp. No visible pneumothorax. Heart: Unremarkable. No cardiomegaly. Mediastinum: Unremarkable. Bones/joints: Unremarkable. Vasculature: Mild atherosclerotic calcifications are noted within the aortic arch. Tubes, lines and devices: Stable positioning of a right IJ central venous catheter with the tip in the SVC. Telemetry leads overlie the thorax. IMPRESSION: Persistent subsegmental atelectasis in bilateral lower lungs, not significantly changed compared to the prior exam. Chest x-rasy - 11/03/19 - Procedure: XRAY Chest 1v Indication: Cough Technique: One view of the chest Comparison: 10/29/2019 Findings: There are increased atelectatic changes at the lung bases. Interim removal of previously demonstrated central venous catheter. The pleural spaces are clear. The heart size is normal. Impression: Increasing bilateral basilar atelectasis Interim central venous catheter removal. Chest x-ray - 11/07/19 - Procedure: XRAY Chest 1v Indication: Shortness of breath Technique: One view of the chest Comparison: 11/03/2019 Findings: Bilateral basilar atelectatic changes appear similar to the previous exam. There may be some patchy left perihilar and bilateral peripheral consolidation. The heart size is normal. Impression: New or increased faint patchy peripheral and left perihilar consolidative opacities, possibly reflecting multifocal pneumonia, since prior study 03/04/2019 Persistent bilateral basilar atelectatic changes Chest x-ray - 11/09/19 - Procedure: XRAY Chest 1v Indication: Cough Technique: One view of the chest Comparison: 11/07/2019 Findings: There is improved aeration of the lung bases, although some atelectasis persists bilaterally. No new infiltrates. The pleural spaces are clear. The heart size is normal. Impression: Improved aeration with decreased basilar atelectasis Chest x-ray - 11/14/19 - Procedure: XRAY Chest 1v Indication: Cough Technique: One view of the chest Comparison: 11/09/2019 Findings: Bilateral basilar atelectasis has increased. No new infiltrates. The pleural spaces remain clear. The heart size is normal. Impression: Increased bilateral basilar atelectasis, since prior study 11/09/2019 Chest x-ray - 11/15/19 - Procedure: XRAY Chest 1v Indication: Cough Technique: One view of the chest Comparison: 11/13/2019 Findings: Again demonstrated is bilateral basilar atelectasis versus scarring. The lungs and pleural spaces are otherwise clear. The heart size is normal. Interim placement right arm PICC. Impression: No acute process Microbiology Date/Time Source Procedure Growth Status 11/13/19 02:00 Blood Blood Culture - Final NO GROWTH AFTER 5 DAYS Complete 11/02/19 13:30 Nasopharynx SARS-CoV-2 RdRp Gene Assay - Final Complete 11/12/19 16:30 Indwelling Cath Urine Culture - Final Rita Tropicalis Complete 11/03/19 08:00 Catheter Site Catheter Tip Culture - Final Staphylococcus Sp Coag Neg Complete Labs Test 11/16/19 04:00 White Blood Count 7.1 K/UL (4.8-10.8) Red Blood Count 3.26 M/UL (4.70-6.10) Hemoglobin 8.7 G/DL (14.2-18.0) Hematocrit 27.7 % (42.0-52.0) Mean Corpuscular Volume 85 FL (80-99) Mean Corpuscular Hemoglobin 26.7 PG (27.0-31.0) Mean Corpuscular Hemoglobin Concent 31.4 G/DL (32.0-36.0) Red Cell Distribution Width 16.0 % (11.6-14.8) Platelet Count 283 K/UL (150-450) Mean Platelet Volume 5.2 FL (6.5-10.1) Neutrophils (%) (Auto) 58.2 % (45.0-75.0) Lymphocytes (%) (Auto) 28.1 % (20.0-45.0) Monocytes (%) (Auto) 9.2 % (1.0-10.0) Eosinophils (%) (Auto) 3.1 % (0.0-3.0) Basophils (%) (Auto) 1.4 % (0.0-2.0) Sodium Level 133 MMOL/L (136-145) Potassium Level 3.4 MMOL/L (3.5-5.1) Chloride Level 98 MMOL/L (98-107) Carbon Dioxide Level 26 MMOL/L (21-32) Anion Gap 9 mmol/L (5-15) Blood Urea Nitrogen 16 mg/dL (7-18) Creatinine 0.6 MG/DL (0.55-1.30) Estimat Glomerular Filtration Rate > 60 mL/min (>60) Glucose Level 128 MG/DL (74-106) Calcium Level 10.2 MG/DL (8.5-10.1) Phosphorus Level 4.2 MG/DL (2.5-4.9) Magnesium Level 1.7 MG/DL (1.8-2.4) Current Medications Medications (Trade) Dose Ordered Sig/Mya Route PRN Reason Start Time Stop Time Status Last Admin Dose Admin Acetaminophen (Tylenol) 650 mg Q4H PRN ORAL Mild Pain (Pain Scale 1-3) 11/05/19 14:00 11/30/19 13:59 11/17/19 00:26 Acetaminophen (Tylenol) 650 mg Q4H PRN ORAL Temp >100.5 11/05/19 16:00 12/05/19 15:59 11/11/19 16:39 Acetaminophen/ Hydrocodone Bitart ([place] 10/325) 1 tab Q4H PRN ORAL Severe Pain (Pain Scale 7-10) 11/15/19 19:45 11/22/19 19:44 11/18/19 13:05 Ascorbic Acid (Vitamin C) 500 mg DAILY ORAL 11/06/19 09:00 11/23/19 08:59 11/18/19 08:32 Baclofen (Lioresal) 10 mg THREE TIMES A DAY ORAL 11/05/19 18:00 11/22/19 17:59 11/18/19 13:00 Chlorhexidine Gluconate (Simran-Hex 2%) 1 applic DAILY@1999 TOPIC 11/13/19 20:00 02/11/20 19:59 11/17/19 20:20 Desmopressin Acetate (Ddavp) 1 spray DAILY NASAL 11/14/19 09:00 02/07/20 17:59 11/18/19 08:32 Dextrose (Dextrose 50%) 25 ml Q30M PRN IV Hypoglycemia 11/05/19 13:30 01/21/20 17:29 Dextrose (Dextrose 50%) 50 ml Q30M PRN IV Hypoglycemia 11/05/19 13:30 01/21/20 17:29 Diphenhydramine HCl (Benadryl) 25 mg Q6H PRN ORAL Itching/Pruritis 11/05/19 14:00 11/22/19 07:54 Docusate Sodium (Colace) 100 mg EVERY 12 HOURS ORAL 11/05/19 21:00 11/22/19 20:59 11/18/19 08:33 Famotidine (Pepcid) 20 mg DAILY ORAL 11/06/19 09:00 01/28/20 09:29 11/18/19 08:33 Ferrous Sulfate (Feosol) 325 mg DAILY ORAL 11/06/19 09:00 01/22/20 08:59 11/18/19 08:32 Fluconazole (Diflucan) 200 mg DAILY ORAL 11/17/19 09:00 11/24/19 08:59 11/18/19 08:32 Fludrocortisone Acetate (Florinef) 0.1 mg DAILY ORAL 11/15/19 09:00 12/15/19 08:59 11/18/19 08:33 Gabapentin (Neurontin) 400 mg Q8HR ORAL 11/05/19 14:00 12/03/19 21:59 11/18/19 13:01 Heparin Sodium (Porcine) (Heparin 5000 units/ml) 5,000 units EVERY 12 HOURS SUBQ 11/05/19 21:00 12/08/19 08:59 11/18/19 08:35 Magnesium Hydroxide (Mom) 30 ml HSPRN PRN ORAL Constipation 11/13/19 11:15 12/13/19 11:14 Midodrine (Pro-Amatine) 10 mg EVERY 8 HOURS ORAL 11/05/19 14:00 01/21/20 17:59 11/18/19 13:01 Ondansetron HCl (Zofran) 4 mg Q6H PRN IVP Nausea & Vomiting 11/05/19 14:00 11/22/19 07:57 Sodium Hypochlorite (Dakin's Quarter Strength) 1 applic DAILY TOPIC 11/06/19 09:00 11/24/19 08:59 11/18/19 08:32 Sodium Chloride (NaCl) 1 gm THREE TIMES A DAY ORAL 11/09/19 13:00 12/09/19 12:59 11/18/19 13:00 Zinc Sulfate (Zinc Sulfate) 220 mg DAILY ORAL 11/06/19 09:00 01/22/20 08:59 11/18/19 08:33 Sharif Painting MD Nov 18, 2019 14:42
--- NOTE | 2019-11-18 14:55 | Cardiac Electrophysiology PN ---
Assessment/Plan Assessment/Plan 1. S/P Septic shock. On Midodrine, iv fluids and antibiotic via PICC line. 2. Bradycardia. Resolved. 3. Paraplegia. 4. Urinary tract infection, 5. Decubitus ulcers with sacral decubitus. 6. S/P Ileostomy/ 7. Polyuria, DI. On NS, Salt tablets DW RN DC to SN[facility] pending Subjective Subjective Alert in NAD. RN at bedside. S/P PICC line. DC to SN[facility] pending Objective Last 24 Hour Vital Signs Date Time Temp Pulse Resp B/P (MAP) Pulse Ox O2 Delivery O2 Flow Rate FiO2 11/18/19 12:00 97.8 18 110/65 (80) 97 11/18/19 09:00 Room Air 11/18/19 08:00 98.0 79 18 98/64 (75) 97 11/18/19 06:43 98.1 11/18/19 04:00 98.1 70 20 102/59 (73) 98 11/18/19 00:00 97.2 88 20 108/65 (79) 98 11/17/19 21:00 Room Air 11/17/19 20:00 99.8 74 18 101/58 (72) 98 11/17/19 16:00 97.9 63 18 102/54 (70) 98 Intake and Output 11/17/19 11/18/19 19:00 07:00 Intake Total 800 ml 600 ml Output Total 800 ml 400 ml Balance 0 ml 200 ml Intake Oral 800 ml 600 ml Output Urine Total 800 ml 400 ml Objective HEAD AND NECK: No JVD. LUNGS: Coarse rhonchi. CARDIOVASCULAR: Regular S1 and S2 with no gallop. ABDOMEN: Soft.S/P Ileostomy EXTREMITIES: No pitting edema, however, has pressure ulcers. Carloz Estes MD Nov 18, 2019 14:55
[2019-11-18] MEDS: Dyna-Hex 2% Top Sol 2oz TOPIC SCH (20:45)
[2019-11-19] MEDS: HYDROcodone/Acetamin 10/325 tab ORAL PRN ×5 (02:01→23:28)
[2019-11-19 04:00] VITALS: BP 121/67
[2019-11-19] MEDS: Midodrine 10mg tab ORAL SCH ×3 (05:37→21:04)
--- NOTE | 2019-11-19 07:53 | Hematology/Onc Progress Note ---
Assessment/Plan Assessment/Plan Assessment/recs # Anemia rule out gi bleed, as well as iron deficiency --> hgb 8.2-->7.2-->7.1->6.9-->8.6-->8.3-->9.3-->8.3-->9.3--.9.2->8.7 --> anemia panel ordered--> cw acd --> occult blood pending-->neg --> gi eval prn --> transfuse as needed --> transfuse 2 units 10/27 --> po iron to continue # Coagulopathy with elev ptt/inr --> vitk and ffp as needed --> no bleeding noted at this time # Thrombocytosis likely reactive process --> plt 398-->608-->605 --> abx as needed # Sepsis due to uti, with Hypotension likely due to septic shock. Was diuresing heavily at 300 mL an hour. --> Continue on midodrine and dopamine. --> ABX vancomycin and meropenem and amikacin-->christel/vanc/difluc --> before requires pressors --> as per cards # Bradycardia. --> per cards # Paraplegia. # Decubitus ulcers with sacral decubitus. # Dvt heparin sq Appreciate consultation and dw RN Subjective HEENT: Denies: no symptoms, eye pain, blurred vision, tearing, double vision, ear pain, ear discharge, nose pain, nose congestion, throat pain, throat swelling, mouth pain, mouth swelling, other Cardiovascular: Denies: no symptoms, chest pain, edema, irregular heart rate, lightheadedness, palpitations, syncope, other Respiratory: Denies: no symptoms, cough, shortness of breath, SOB with excertion, SOB at rest, sputum, wheezing, other Gastrointestinal/Abdominal: Denies: no symptoms, abdomen distended, abdominal pain, black stools, tarry stools, blood in stool, constipated, diarrhea, difficulty swallowing, nausea, poor appetite, poor fluid intake, rectal bleeding , vomiting, other Genitourinary: Denies: no symptoms, burning, discharge, frequency, flank pain, hematuria, incontinence, pain, urgency, other Neurologic/Psychiatric: Denies: no symptoms, anxiety, depressed, emotional problems, headache, numbness, paresthesia, pre-existing deficit, seizure, tingling, tremors, weakness, other Endocrine: Denies: no symptoms, excessive sweating, flushing, intolerance to cold, intolerance to heat, increased hunger, increased thirst, increased urine, unexplained weight gain, unexplained weight loss, other Allergies: Coded Allergies: No Known Allergies (Unverified , 08/15/19) Subjective 10/27 labs again refused this am, yesterday was low, chandrakant england in icu 10/28 remains in icu, for 2units prbc this am, chandrakant rn, no other events 10/29 s/p prbc, tolerated it well, no bleeding, on 1mcg levo, in icu 10/30 on abx, on levo and overnight no other events, 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\ 10/31 wounds improved, labs noted, no bleeding, hgb lower, refusing care/wound care 11/01 labs noted, no bleeding, no hematochezia, no hemoptysis, cbc ordered 11/02 meds reviewed, labs noted, no bleeding, chandrakant england, no major changes, hgb 8.3 11/04 labs have been noted, no bleeding, meds reviewed, no hemolysis 11/05 functional colostomy llq, no bleeding, cbc is pending for am 11/06 labs have been refused, hgb 8.3, no bleeding, wbc is higher in am 11/07 labs have initially been refused, no bleeding in am, wbc 13, on abx 11/08 labs reviewed, no bleeding, chandrakant england, cbc is pending for am 11/09 is on vanc/difl/christel, no other changes, cbc and bmp are noted 11/11 has been asymptomatic, eating breakfast, hgb 9.3, on abx 11/12 labs are noted, no bleeding, chandrakant england, no major changes, abx 11/13 is currently on christel and vancchandrakant rn, no major bleeding, on hep sq 11/14 labs are noted, does not want to be changed currently, cbc/bmp ordered 11/15 labs reviewed, c/o pain at picc line, no bleeding, meds noted, hgb 8.7 11/16 labs are noted, has been cleared, for dc planning to snf 11/[address], no bleeding, meds noted, continues to be on heparin sq Objective Objective Current Medications Medications (Trade) Dose Ordered Sig/Mya Route PRN Reason Start Time Stop Time Status Last Admin Dose Admin Acetaminophen (Tylenol) 650 mg Q4H PRN ORAL Mild Pain (Pain Scale 1-3) 11/05/19 14:00 11/30/19 13:59 11/19/19 00:05 Acetaminophen (Tylenol) 650 mg Q4H PRN ORAL Temp >100.5 11/05/19 16:00 12/05/19 15:59 11/11/19 16:39 Acetaminophen/ Hydrocodone Bitart ([place] 10/325) 1 tab Q4H PRN ORAL Severe Pain (Pain Scale 7-10) 11/15/19 19:45 11/22/19 19:44 11/19/19 06:51 Ascorbic Acid (Vitamin C) 500 mg DAILY ORAL 11/06/19 09:00 11/23/19 08:59 11/18/19 08:32 Baclofen (Lioresal) 10 mg THREE TIMES A DAY ORAL 11/05/19 18:00 11/22/19 17:59 11/18/19 17:09 Chlorhexidine Gluconate (Simran-Hex 2%) 1 applic DAILY@2000 TOPIC 11/13/19 20:00 02/11/20 19:59 11/18/19 20:45 Desmopressin Acetate (Ddavp) 1 spray DAILY NASAL 11/14/19 09:00 02/07/20 17:59 11/18/19 08:32 Dextrose (Dextrose 50%) 25 ml Q30M PRN IV Hypoglycemia 11/05/19 13:30 01/21/20 17:29 Dextrose (Dextrose 50%) 50 ml Q30M PRN IV Hypoglycemia 11/05/19 13:30 01/21/20 17:29 Diphenhydramine HCl (Benadryl) 25 mg Q6H PRN ORAL Itching/Pruritis 11/05/19 14:00 11/22/19 07:54 Docusate Sodium (Colace) 100 mg EVERY 12 HOURS ORAL 11/05/19 21:00 11/22/19 20:59 11/18/19 21:20 Famotidine (Pepcid) 20 mg DAILY ORAL 11/06/19 09:00 01/28/20 09:29 11/18/19 08:33 Ferrous Sulfate (Feosol) 325 mg DAILY ORAL 11/06/19 09:00 01/22/20 08:59 11/18/19 08:32 Fluconazole (Diflucan) 200 mg DAILY ORAL 11/17/19 09:00 11/24/19 08:59 11/18/19 08:32 Fludrocortisone Acetate (Florinef) 0.1 mg DAILY ORAL 11/15/19 09:00 12/15/19 08:59 11/18/19 08:33 Gabapentin (Neurontin) 400 mg Q8HR ORAL 11/05/19 14:00 12/03/19 21:59 11/19/19 05:37 Heparin Sodium (Porcine) (Heparin 5000 units/ml) 5,000 units EVERY 12 HOURS SUBQ 11/05/19 21:00 12/08/19 08:59 11/18/19 21:22 Magnesium Hydroxide (Mom) 30 ml HSPRN PRN ORAL Constipation 11/13/19 11:15 12/13/19 11:14 Midodrine (Pro-Amatine) 10 mg EVERY 8 HOURS ORAL 11/05/19 14:00 01/21/20 17:59 11/19/19 05:37 Ondansetron HCl (Zofran) 4 mg Q6H PRN IVP Nausea & Vomiting 11/05/19 14:00 11/22/19 07:57 Sodium Hypochlorite (Dakin's Quarter Strength) 1 applic DAILY TOPIC 11/06/19 09:00 11/24/19 08:59 11/18/19 08:32 Sodium Chloride (NaCl) 1 gm THREE TIMES A DAY ORAL 11/09/19 13:00 12/09/19 12:59 11/18/19 17:09 Zinc Sulfate (Zinc Sulfate) 220 mg DAILY ORAL 11/06/19 09:00 01/22/20 08:59 11/18/19 08:33 Last 24 Hour Vital Signs Date Time Temp Pulse Resp B/P (MAP) Pulse Ox O2 Delivery O2 Flow Rate FiO2 11/19/19 04:00 97.9 75 18 121/67 (85) 97 11/19/19 02:31 98.1 11/19/19 00:35 98.1 11/18/19 23:56 98.1 90 18 106/74 (85) 99 11/18/19 21:09 Room Air 11/18/19 20:00 98.8 88 18 113/69 (84) 99 11/18/19 16:00 98.1 74 20 97/62 (74) 97 11/18/19 12:00 97.8 18 110/65 (80) 97 11/18/19 09:00 Room Air 11/18/19 08:00 98.0 79 18 98/64 (75) 97 11/18/19 04:00 98.1 70 20 102/59 (73) 98 11/18/19 00:00 97.2 88 20 108/65 (79) 98 11/17/19 21:00 Room Air 11/17/19 20:00 99.8 74 18 101/58 (72) 98 11/17/19 16:00 97.9 63 18 102/54 (70) 98 11/17/19 12:00 98.0 75 18 92/55 (67) 97 11/17/19 09:00 Room Air 11/17/19 08:00 98.0 71 18 110/65 (80) 98 Intake and Output 11/18/19 11/19/19 19:00 07:00 Intake Total 500 ml 480 ml Output Total 500 ml 600 ml Balance 0 ml -120 ml Intake Oral 500 ml 480 ml Output Urine Total 500 ml 600 ml # Bowel Movements 1 1 Height (Feet): 5 Height (Inches): 7.00 Weight (Pounds): 114 Objective Physical Exam General Appearance: lethargic Lines, tubes and drains: peripheral, central line HEENT: normocephalic Neck: non-tender, normal alignment Respiratory/Chest: lungs clear Cardiovascular/Chest: normal peripheral pulses, normal rate, regular rhythm Abdomen: normal bowel sounds, non tender ++ llq colostomy Martínez Capps MD Nov 19, 2019 07:53
[2019-11-19 08:00] VITALS: BP 98/64
[2019-11-19] MEDS: Fluconazole 100mg tab ORAL SCH (08:15)
[2019-11-19] MEDS: Heparin 5000 units/ml inj SUBQ SCH ×2 (08:15→20:27)
[2019-11-19] MEDS: Dakin's 0.125% Soln (Quarter Strength) 16oz TOPIC SCH (08:15)
[2019-11-19] MEDS: Sodium Chloride 1gm Tab ORAL SCH ×3 (08:15→17:49)
[2019-11-19] MEDS: Zinc Sulfate 220mg ORAL SCH (08:16)
[2019-11-19] MEDS: Ascorbic Acid 500mg tab ORAL SCH (08:16)
[2019-11-19] MEDS: Desmopressin Nasal 5ml NASAL SCH (08:16)
[2019-11-19] MEDS: Docusate 100mg cap ORAL SCH ×2 (08:16→20:26)
--- NOTE | 2019-11-19 09:59 | Pulmonology Progress Note ---
Subjective ROS Limited/Unobtainable: No Interval Events: no fever or leucocytosis Constitutional: Denies: fever HEENT: Repors: no symptoms Respiratory: Reports: no symptoms Cardiovascular: Reports: no symptoms Gastrointestinal/Abdominal: Denies: nausea, vomiting, diarrhea Genitourinary: Reports: no symptoms Psychiatric: Denies: depression Skin: Denies: rash Musculoskeletal: Denies: pain Allergies: Coded Allergies: No Known Allergies (Unverified , 08/15/19) All Systems: reviewed and negative except above Objective Last 24 Hour Vital Signs Date Time Temp Pulse Resp B/P (MAP) Pulse Ox O2 Delivery O2 Flow Rate FiO2 11/19/19 09:00 Room Air 11/19/19 08:00 97.2 78 18 98/64 (75) 96 11/19/19 04:00 97.9 75 18 121/67 (85) 97 11/19/19 02:31 98.1 11/19/19 00:35 98.1 11/18/19 23:56 98.1 90 18 106/74 (85) 99 11/18/19 21:09 Room Air 11/18/19 20:00 98.8 88 18 113/69 (84) 99 11/18/19 16:00 98.1 74 20 97/62 (74) 97 11/18/19 12:00 97.8 18 110/65 (80) 97 Intake and Output 11/18/19 11/19/19 19:00 07:00 Intake Total 500 ml 480 ml Output Total 500 ml 600 ml Balance 0 ml -120 ml Intake Oral 500 ml 480 ml Output Urine Total 500 ml 600 ml # Bowel Movements 1 1 General Appearance: no acute distress HEENT: normocephalic Respiratory: chest wall non-tender, lungs clear Cardiovascular: normal peripheral pulses, regular rhythm Abdomen: normal bowel sounds Extremities: no cyanosis Current Medications Medications (Trade) Dose Ordered Sig/Mya Route PRN Reason Start Time Stop Time Status Last Admin Dose Admin Acetaminophen (Tylenol) 650 mg Q4H PRN ORAL Mild Pain (Pain Scale 1-3) 11/05/19 14:00 11/30/19 13:59 11/19/19 00:05 Acetaminophen (Tylenol) 650 mg Q4H PRN ORAL Temp >100.5 11/05/19 16:00 12/05/19 15:59 11/11/19 16:39 Acetaminophen/ Hydrocodone Bitart ([place] 10/325) 1 tab Q4H PRN ORAL Severe Pain (Pain Scale 7-10) 11/15/19 19:45 11/22/19 19:44 11/19/19 06:51 Ascorbic Acid (Vitamin C) 500 mg DAILY ORAL 11/06/19 09:00 11/23/19 08:59 11/19/19 08:16 Baclofen (Lioresal) 10 mg THREE TIMES A DAY ORAL 11/05/19 18:00 11/22/19 17:59 11/19/19 08:15 Chlorhexidine Gluconate (Simran-Hex 2%) 1 applic DAILY@1999 TOPIC 11/13/19 20:00 02/11/20 19:59 11/18/19 20:45 Desmopressin Acetate (Ddavp) 1 spray DAILY NASAL 11/14/19 09:00 02/07/20 17:59 11/19/19 08:16 Dextrose (Dextrose 50%) 25 ml Q30M PRN IV Hypoglycemia 11/05/19 13:30 01/21/20 17:29 Dextrose (Dextrose 50%) 50 ml Q30M PRN IV Hypoglycemia 11/05/19 13:30 01/21/20 17:29 Diphenhydramine HCl (Benadryl) 25 mg Q6H PRN ORAL Itching/Pruritis 11/05/19 14:00 11/22/19 07:54 Docusate Sodium (Colace) 100 mg EVERY 12 HOURS ORAL 11/05/19 21:00 11/22/19 20:59 11/19/19 08:16 Famotidine (Pepcid) 20 mg DAILY ORAL 11/06/19 09:00 01/28/20 09:29 11/19/19 08:15 Ferrous Sulfate (Feosol) 325 mg DAILY ORAL 11/06/19 09:00 01/22/20 08:59 11/19/19 08:15 Fluconazole (Diflucan) 200 mg DAILY ORAL 11/17/19 09:00 11/24/19 08:59 11/19/19 08:15 Fludrocortisone Acetate (Florinef) 0.1 mg DAILY ORAL 11/15/19 09:00 12/15/19 08:59 11/19/19 08:15 Gabapentin (Neurontin) 400 mg Q8HR ORAL 11/05/19 14:00 12/03/19 21:59 11/19/19 05:37 Heparin Sodium (Porcine) (Heparin 5000 units/ml) 5,000 units EVERY 12 HOURS SUBQ 11/05/19 21:00 12/08/19 08:59 11/19/19 08:15 Magnesium Hydroxide (Mom) 30 ml HSPRN PRN ORAL Constipation 11/13/19 11:15 12/13/19 11:14 Midodrine (Pro-Amatine) 10 mg EVERY 8 HOURS ORAL 11/05/19 14:00 01/21/20 17:59 11/19/19 05:37 Ondansetron HCl (Zofran) 4 mg Q6H PRN IVP Nausea & Vomiting 11/05/19 14:00 11/22/19 07:57 Sodium Hypochlorite (Dakin's Quarter Strength) 1 applic DAILY TOPIC 11/06/19 09:00 11/24/19 08:59 11/19/19 08:15 Sodium Chloride (NaCl) 1 gm THREE TIMES A DAY ORAL 11/09/19 13:00 12/09/19 12:59 11/19/19 08:15 Zinc Sulfate (Zinc Sulfate) 220 mg DAILY ORAL 11/06/19 09:00 01/22/20 08:59 11/19/19 08:16 Assessment/Plan Assessment/Plan IMPRESSION: 1. Septic shock. resolved 2. Complicated UTI with history of previous ESBL infection. 3. Paraplegia. 4. Sacral decubitus. 5. prison resident. DISCUSSION: DVT and GI prophylaxes. Continue Oxygen prn, doing well on room air at this time. DC planning Haily Monzon Omar Syed MD Nov 19, 2019 09:59
[2019-11-19 12:00] VITALS: BP 114/68
[2019-11-19 16:00] VITALS: BP 96/51
--- NOTE | 2019-11-19 16:01 | General Progress Note ---
Assessment/Plan Problem List: (1) Decubital ulcer ICD Codes: L89.90 - Pressure ulcer of unspecified site, unspecified stage SNOMED: 446136329 (2) Left leg pain ICD Codes: M79.605 - Pain in left leg SNOMED: 583949107 (3) Urinary tract infection in male ICD Codes: N39.0 - Urinary tract infection, site not specified SNOMED: 22116426, 480580466 (4) Drug (multiple) resistant infection SNOMED: 79516855, 80415841148829 (5) UTI (urinary tract infection) ICD Codes: N39.0 - Urinary tract infection, site not specified SNOMED: 49962034 (6) Hypotension ICD Codes: I95.9 - Hypotension, unspecified SNOMED: 51836435 Status: stable Assessment/Plan: Assessment/Plan: 59 year old man who presents from [facility] with weakness, encephalopathy, concern for septic shock, possible from UTI. 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 -Evaluated by endocrine for adrenal insufficiency -AM cortisol normal however patient continues to have labile BP and hyponatremia - Appreciate Nephrology consult - Appreciate Endocrine consult - Will continue Florinef, Salt Tab, and DDAVP - Continue Midodrine given labile BP - CT Brain without masses noted, will defer MRI - Refusing labs #Septic shock- resolved #Proteus UTI #Acute metabolic encephalopathy -improving #Paraplegia #Sacral pressure ulcer, present on admit - Periods of hypotension and fever through hospitalization, VSS now - BC & CXR wnl - Covid 19 - negative - S/p vancomycin, cefepime, and flagyl - Spoke with surgery, sacral pressure ulcer does not appear to be infected - Local wound care and offloading - Appreciate ID consult #Fungal UTI - Patient is high risk for fungemia - Diflucan 11/16 - 11/23 -Appreciate ID Consult #Sinus Bradycardia - resolved -continue telemetry -EP following #Hyponatremia #Hypokalemia -improving -Intermittently refusing labs -Replete when necessary -On DDAVP intranasal #Anemia, acute on chronic -2 units RBC 10/28 -Hematology following, no signs of overt bleeding - Keep Hb >7 #Chronic 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 Appreciate referrals placed by CM. I spent 40 minutes on this patient's care today, and 20mins was dedicated to counseling and care coordination. Discussed with all consultants, CM and nursing staff. Subjective Date patient seen: Nov 19, 2019 Time patient seen: 10:52 ROS Limited/Unobtainable: No Constitutional: Denies: no symptoms, chills, diaphoresis, fever, malaise, weakness, other HEENT: Denies: no symptoms, eye pain, blurred vision, tearing, double vision, ear pain, ear discharge, nose pain, nose congestion, throat pain, throat swelling, mouth pain, mouth swelling, other Cardiovascular: Denies: no symptoms, chest pain, edema, irregular heart rate, lightheadedness, palpitations, syncope, other Respiratory: Denies: no symptoms, cough, orthopnea, shortness of breath, SOB with excertion, SOB at rest, sputum, stridor, wheezing, other Gastrointestinal/Abdominal: Denies: no symptoms, abdomen distended, abdominal pain, black stools, tarry stools, blood in stool, constipated, diarrhea, difficulty swallowing, nausea, poor appetite, poor fluid intake, rectal bleeding , vomiting, other Genitourinary: Denies: no symptoms, burning, discharge, frequency, flank pain, hematuria, incontinence, pain, urgency, other Neurologic/Psychiatric: Denies: no symptoms, anxiety, depressed, emotional problems, headache, numbness, paresthesia, pre-existing deficit, seizure, tingling, tremors, weakness, other Endocrine: Denies: no symptoms, excessive sweating, flushing, intolerance to cold, intolerance to heat, increased hunger, increased thirst, increased urine, unexplained weight gain, unexplained weight loss, other Hematologic/Lymphatic: Denies: no symptoms, anemia, easy bleeding, easy bruising, other Allergies: Coded Allergies: No Known Allergies (Unverified , 08/15/19) Subjective Spoke with patient in limited Vietnamese Subjectively feeling well Refusing labs Very upset about not being able to return to SNF Objective Last 24 Hour Vital Signs Date Time Temp Pulse Resp B/P (MAP) Pulse Ox O2 Delivery O2 Flow Rate FiO2 11/19/19 12:00 97.8 75 18 114/68 (83) 97 11/19/19 09:00 Room Air 11/19/19 08:00 97.2 78 18 98/64 (75) 96 11/19/19 04:00 97.9 75 18 121/67 (85) 97 11/19/19 02:31 98.1 11/19/19 00:35 98.1 11/18/19 23:56 98.1 90 18 106/74 (85) 99 11/18/19 21:09 Room Air 11/18/19 20:00 98.8 88 18 113/69 (84) 99 11/18/19 16:00 98.1 74 20 97/62 (74) 97 Intake and Output 11/18/19 11/19/19 19:00 07:00 Intake Total 500 ml 480 ml Output Total 500 ml 600 ml Balance 0 ml -120 ml Intake Oral 500 ml 480 ml Output Urine Total 500 ml 600 ml # Bowel Movements 1 1 Height (Feet): 5 Height (Inches): 7.00 Weight (Pounds): 114 General Appearance: no apparent distress, alert EENT: PERRL/EOMI Neck: supple Cardiovascular: normal rate, regular rhythm Respiratory/Chest: lungs clear, normal breath sounds Abdomen: non tender, soft, other Extremities: other - contractures of lower extremities 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 Nov 19, 2019 16:01
[2019-11-19 20:00] VITALS: BP 100/57
[2019-11-19] MEDS: Dyna-Hex 2% Top Sol 2oz TOPIC SCH (20:23)
[2019-11-20] VITALS: BP 105/67
[2019-11-20 04:00] VITALS: BP 105/64
[2019-11-20] MEDS: Midodrine 10mg tab ORAL SCH ×3 (05:26→21:03)
[2019-11-20 08:00] VITALS: BP 139/87
--- NOTE | 2019-11-20 08:24 | Hematology/Onc Progress Note ---
Assessment/Plan Assessment/Plan Assessment/recs # Anemia rule out gi bleed, as well as iron deficiency --> hgb 8.2-->7.2-->7.1->6.9-->8.6-->8.3-->9.3-->8.3-->9.3--.9.2->8.7 --> anemia panel ordered--> cw acd --> occult blood pending-->neg --> gi eval prn --> transfuse as needed --> transfuse 2 units 10/27 --> po iron to continue # Coagulopathy with elev ptt/inr --> vitk and ffp as needed --> no bleeding noted at this time # Thrombocytosis likely reactive process --> plt 398-->608-->605 --> abx as needed # Sepsis due to uti, with Hypotension likely due to septic shock. Was diuresing heavily at 300 mL an hour. --> Continue on midodrine and dopamine. --> ABX vancomycin and meropenem and amikacin-->christel/vanc/difluc --> before requires pressors --> as per cards # Bradycardia. --> per cards # Paraplegia. # Decubitus ulcers with sacral decubitus. # Dvt heparin sq Appreciate consultation and dw RN Subjective HEENT: Denies: no symptoms, eye pain, blurred vision, tearing, double vision, ear pain, ear discharge, nose pain, nose congestion, throat pain, throat swelling, mouth pain, mouth swelling, other Cardiovascular: Denies: no symptoms, chest pain, edema, irregular heart rate, lightheadedness, palpitations, syncope, other Respiratory: Denies: no symptoms, cough, shortness of breath, SOB with excertion, SOB at rest, sputum, wheezing, other Gastrointestinal/Abdominal: Denies: no symptoms, abdomen distended, abdominal pain, black stools, tarry stools, blood in stool, constipated, diarrhea, difficulty swallowing, nausea, poor appetite, poor fluid intake, rectal bleeding , vomiting, other Genitourinary: Denies: no symptoms, burning, discharge, frequency, flank pain, hematuria, incontinence, pain, urgency, other Endocrine: Denies: no symptoms, excessive sweating, flushing, intolerance to cold, intolerance to heat, increased hunger, increased thirst, increased urine, unexplained weight gain, unexplained weight loss, other Allergies: Coded Allergies: No Known Allergies (Unverified , 08/15/19) Subjective 10/27 labs again refused this am, yesterday was low, chandrakant rn in icu 10/28 remains in icu, for 2units prbc this am, chandrakant rn, no other events 10/29 s/p prbc, tolerated it well, no bleeding, on 1mcg levo, in icu 10/30 on abx, on levo and overnight no other events, chandrakant shank burnisher\ 10/31 wounds improved, labs noted, no bleeding, hgb lower, refusing care/wound care 11/01 labs noted, no bleeding, no hematochezia, no hemoptysis, cbc ordered 11/02 meds reviewed, labs noted, no bleeding, chandrakant rn, no major changes, hgb 8.3 11/04 labs have been noted, no bleeding, meds reviewed, no hemolysis 11/05 functional colostomy llq, no bleeding, cbc is pending for am 11/06 labs have been refused, hgb 8.3, no bleeding, wbc is higher in am 11/07 labs have initially been refused, no bleeding in am, wbc 13, on abx 11/08 labs reviewed, no bleeding, chandrakant [place], cbc is pending for am 11/09 is on vanc/difl/christel, no other changes, cbc and bmp are noted 11/11 has been asymptomatic, eating breakfast, hgb 9.3, on abx 11/12 labs are noted, no bleeding, chandrakant [place], no major changes, abx 11/13 is currently on christel and vanc, chandrakant [place], no major bleeding, on hep sq 11/14 labs are noted, does not want to be changed currently, cbc/bmp ordered 11/15 labs reviewed, c/o pain at picc line, no bleeding, meds noted, hgb 8.7 11/16 labs are noted, has been cleared, for dc planning to snf 11/[address], no bleeding, meds noted, continues to be on heparin sq 11/19 labs noted, no bleeding, comfortable, cbc is ntoed and bmp for am labs Objective Objective Current Medications Medications (Trade) Dose Ordered Sig/Mya Route PRN Reason Start Time Stop Time Status Last Admin Dose Admin Acetaminophen (Tylenol) 650 mg Q4H PRN ORAL Mild Pain (Pain Scale 1-3) 11/05/19 14:00 11/30/19 13:59 11/19/19 00:05 Acetaminophen (Tylenol) 650 mg Q4H PRN ORAL Temp >100.5 11/05/19 16:00 12/05/19 15:59 11/11/19 16:39 Acetaminophen/ Hydrocodone Bitart ([place] 10/325) 1 tab Q4H PRN ORAL Severe Pain (Pain Scale 7-10) 11/15/19 19:45 11/22/19 19:44 11/19/19 23:28 Ascorbic Acid (Vitamin C) 500 mg DAILY ORAL 11/06/19 09:00 11/23/19 08:59 11/19/19 08:16 Baclofen (Lioresal) 10 mg THREE TIMES A DAY ORAL 11/05/19 18:00 11/22/19 17:59 11/19/19 17:49 Chlorhexidine Gluconate (Simran-Hex 2%) 1 applic DAILY@1999 TOPIC 11/13/19 20:00 02/11/20 19:59 11/19/19 20:23 Desmopressin Acetate (Ddavp) 1 spray DAILY NASAL 11/14/19 09:00 02/07/20 17:59 11/19/19 08:16 Dextrose (Dextrose 50%) 25 ml Q30M PRN IV Hypoglycemia 11/05/19 13:30 01/21/20 17:29 Dextrose (Dextrose 50%) 50 ml Q30M PRN IV Hypoglycemia 11/05/19 13:30 01/21/20 17:29 Diphenhydramine HCl (Benadryl) 25 mg Q6H PRN ORAL Itching/Pruritis 11/05/19 14:00 11/22/19 07:54 Docusate Sodium (Colace) 100 mg EVERY 12 HOURS ORAL 11/05/19 21:00 11/22/19 20:59 11/19/19 20:26 Famotidine (Pepcid) 20 mg DAILY ORAL 11/06/19 09:00 01/28/20 09:29 11/19/19 08:15 Ferrous Sulfate (Feosol) 325 mg DAILY ORAL 11/06/19 09:00 01/22/20 08:59 11/19/19 08:15 Fluconazole (Diflucan) 200 mg DAILY ORAL 11/17/19 09:00 11/24/19 08:59 11/19/19 08:15 Fludrocortisone Acetate (Florinef) 0.1 mg DAILY ORAL 11/15/19 09:00 12/15/19 08:59 11/19/19 08:15 Gabapentin (Neurontin) 400 mg Q8HR ORAL 11/05/19 14:00 12/03/19 21:59 11/20/19 05:26 Heparin Sodium (Porcine) (Heparin 5000 units/ml) 5,000 units EVERY 12 HOURS SUBQ 11/05/19 21:00 12/08/19 08:59 11/19/19 20:27 Magnesium Hydroxide (Mom) 30 ml HSPRN PRN ORAL Constipation 11/13/19 11:15 12/13/19 11:14 Midodrine (Pro-Amatine) 10 mg EVERY 8 HOURS ORAL 11/05/19 14:00 01/21/20 17:59 11/20/19 05:26 Ondansetron HCl (Zofran) 4 mg Q6H PRN IVP Nausea & Vomiting 11/05/19 14:00 11/22/19 07:57 Sodium Hypochlorite (Dakin's Quarter Strength) 1 applic DAILY TOPIC 11/06/19 09:00 11/24/19 08:59 11/19/19 08:15 Sodium Chloride (NaCl) 1 gm THREE TIMES A DAY ORAL 11/09/19 13:00 12/09/19 12:59 11/19/19 17:49 Zinc Sulfate (Zinc Sulfate) 220 mg DAILY ORAL 11/06/19 09:00 01/22/20 08:59 11/19/19 08:16 Last 24 Hour Vital Signs Date Time Temp Pulse Resp B/P (MAP) Pulse Ox O2 Delivery O2 Flow Rate FiO2 11/20/19 04:00 98.6 69 20 105/64 (78) 98 11/20/19 00:00 98.2 76 18 105/67 (80) 100 11/19/19 21:00 Room Air 11/19/19 20:00 98.4 72 18 100/57 (71) 100 11/19/19 16:00 98.4 62 18 96/51 (66) 97 11/19/19 12:00 97.8 75 18 114/68 (83) 97 11/19/19 09:00 Room Air 11/19/19 08:00 97.2 78 18 98/64 (75) 96 11/19/19 04:00 97.9 75 18 121/67 (85) 97 11/19/19 02:31 98.1 11/19/19 00:35 98.1 11/18/19 23:56 98.1 90 18 106/74 (85) 99 11/18/19 21:09 Room Air 11/18/19 20:00 98.8 88 18 113/69 (84) 99 11/18/19 16:00 98.1 74 20 97/62 (74) 97 11/18/19 12:00 97.8 18 110/65 (80) 97 11/18/19 09:00 Room Air Intake and Output 11/19/19 11/20/19 19:00 07:00 Intake Total 1080 ml 480 ml Output Total 600 ml 700 ml Balance 480 ml -220 ml Intake Oral 1080 ml 480 ml Output Urine Total 600 ml 700 ml # Bowel Movements 2 1 Height (Feet): 5 Height (Inches): 7.00 Weight (Pounds): 114 Objective Physical Exam General Appearance: lethargic Lines, tubes and drains: peripheral, central line HEENT: normocephalic Neck: non-tender, normal alignment Respiratory/Chest: lungs clear Cardiovascular/Chest: normal peripheral pulses, normal rate, regular rhythm Abdomen: normal bowel sounds, non tender ++ llq colostomy Martínez Capps MD Nov 20, 2019 08:24
[2019-11-20] MEDS: Docusate 100mg cap ORAL SCH ×2 (08:59→21:03)
[2019-11-20] MEDS: Fluconazole 100mg tab ORAL SCH (08:59)
[2019-11-20] MEDS: Sodium Chloride 1gm Tab ORAL SCH ×3 (08:59→17:57)
[2019-11-20] MEDS: Zinc Sulfate 220mg ORAL SCH (08:59)
[2019-11-20] MEDS: Ascorbic Acid 500mg tab ORAL SCH (08:59)
[2019-11-20] MEDS: HYDROcodone/Acetamin 10/325 tab ORAL PRN ×3 (09:00→17:58)
[2019-11-20] MEDS: Desmopressin Nasal 5ml NASAL SCH (09:00)
[2019-11-20] MEDS: Dakin's 0.125% Soln (Quarter Strength) 16oz TOPIC SCH (09:00)
[2019-11-20] MEDS: Heparin 5000 units/ml inj SUBQ SCH ×2 (09:01→21:04)
[2019-11-20 12:00] VITALS: BP 120/79
--- NOTE | 2019-11-20 12:13 | Pulmonology Progress Note ---
Subjective ROS Limited/Unobtainable: No Interval Events: no fever or leucocytosis Constitutional: Denies: fever HEENT: Repors: no symptoms Respiratory: Reports: no symptoms Cardiovascular: Reports: no symptoms Gastrointestinal/Abdominal: Denies: nausea, vomiting, diarrhea Genitourinary: Reports: no symptoms Psychiatric: Denies: depression Skin: Denies: rash Musculoskeletal: Denies: pain Allergies: Coded Allergies: No Known Allergies (Unverified , 08/15/19) All Systems: reviewed and negative except above Objective Last 24 Hour Vital Signs Date Time Temp Pulse Resp B/P (MAP) Pulse Ox O2 Delivery O2 Flow Rate FiO2 11/20/19 09:31 98.4 11/20/19 09:00 Room Air 11/20/19 08:00 98.4 98 20 139/87 (104) 98 11/20/19 04:00 98.6 69 20 105/64 (78) 98 11/20/19 00:00 98.2 76 18 105/67 (80) 100 11/19/19 21:00 Room Air 11/19/19 20:00 98.4 72 18 100/57 (71) 100 11/19/19 16:00 98.4 62 18 96/51 (66) 97 Intake and Output 11/19/19 11/20/19 19:00 07:00 Intake Total 1080 ml 480 ml Output Total 600 ml 700 ml Balance 480 ml -220 ml Intake Oral 1080 ml 480 ml Output Urine Total 600 ml 700 ml # Bowel Movements 2 1 General Appearance: no acute distress HEENT: normocephalic Respiratory: chest wall non-tender, lungs clear Cardiovascular: normal peripheral pulses, regular rhythm Abdomen: normal bowel sounds Extremities: no cyanosis Current Medications Medications (Trade) Dose Ordered Sig/Mya Route PRN Reason Start Time Stop Time Status Last Admin Dose Admin Acetaminophen (Tylenol) 650 mg Q4H PRN ORAL Mild Pain (Pain Scale 1-3) 11/05/19 14:00 11/30/19 13:59 11/20/19 12:03 Acetaminophen (Tylenol) 650 mg Q4H PRN ORAL Temp >100.5 11/05/19 16:00 12/05/19 15:59 11/11/19 16:39 Acetaminophen/ Hydrocodone Bitart ([place] 10/325) 1 tab Q4H PRN ORAL Severe Pain (Pain Scale 7-10) 11/15/19 19:45 11/22/19 19:44 11/20/19 09:00 Ascorbic Acid (Vitamin C) 500 mg DAILY ORAL 11/06/19 09:00 11/23/19 08:59 11/20/19 08:59 Baclofen (Lioresal) 10 mg THREE TIMES A DAY ORAL 11/05/19 18:00 11/22/19 17:59 11/20/19 12:02 Chlorhexidine Gluconate (Simran-Hex 2%) 1 applic DAILY@2000 TOPIC 11/13/19 20:00 02/11/20 19:59 11/19/19 20:23 Desmopressin Acetate (Ddavp) 1 spray DAILY NASAL 11/14/19 09:00 02/07/20 17:59 11/20/19 09:00 Dextrose (Dextrose 50%) 25 ml Q30M PRN IV Hypoglycemia 11/05/19 13:30 01/21/20 17:29 Dextrose (Dextrose 50%) 50 ml Q30M PRN IV Hypoglycemia 11/05/19 13:30 01/21/20 17:29 Diphenhydramine HCl (Benadryl) 25 mg Q6H PRN ORAL Itching/Pruritis 11/05/19 14:00 11/22/19 07:54 Docusate Sodium (Colace) 100 mg EVERY 12 HOURS ORAL 11/05/19 21:00 11/22/19 20:59 11/20/19 08:59 Famotidine (Pepcid) 20 mg DAILY ORAL 11/06/19 09:00 01/28/20 09:29 11/20/19 09:00 Ferrous Sulfate (Feosol) 325 mg DAILY ORAL 11/06/19 09:00 01/22/20 08:59 11/20/19 08:59 Fluconazole (Diflucan) 200 mg DAILY ORAL 11/17/19 09:00 11/24/19 08:59 11/20/19 08:59 Fludrocortisone Acetate (Florinef) 0.1 mg DAILY ORAL 11/15/19 09:00 12/15/19 08:59 11/20/19 08:59 Gabapentin (Neurontin) 400 mg Q8HR ORAL 11/05/19 14:00 12/03/19 21:59 11/20/19 05:26 Heparin Sodium (Porcine) (Heparin 5000 units/ml) 5,000 units EVERY 12 HOURS SUBQ 11/05/19 21:00 12/08/19 08:59 11/20/19 09:01 Magnesium Hydroxide (Mom) 30 ml HSPRN PRN ORAL Constipation 11/13/19 11:15 12/13/19 11:14 Midodrine (Pro-Amatine) 10 mg EVERY 8 HOURS ORAL 11/05/19 14:00 01/21/20 17:59 11/20/19 05:26 Ondansetron HCl (Zofran) 4 mg Q6H PRN IVP Nausea & Vomiting 11/05/19 14:00 11/22/19 07:57 Sodium Hypochlorite (Dakin's Quarter Strength) 1 applic DAILY TOPIC 11/06/19 09:00 11/24/19 08:59 11/20/19 09:00 Sodium Chloride (NaCl) 1 gm THREE TIMES A DAY ORAL 11/09/19 13:00 12/09/19 12:59 11/20/19 12:02 Zinc Sulfate (Zinc Sulfate) 220 mg DAILY ORAL 11/06/19 09:00 01/22/20 08:59 11/20/19 08:59 Assessment/Plan Assessment/Plan IMPRESSION: 1. Septic shock. resolved 2. Complicated UTI with history of previous ESBL infection. 3. Paraplegia. 4. Sacral decubitus. 5. intermediate resident. DISCUSSION: DVT and GI prophylaxes. Continue Oxygen prn, doing well on room air at this time. DC planning Haily Monzon Omar Syed MD Nov 20, 2019 12:13
--- NOTE | 2019-11-20 12:23 | General Progress Note ---
Assessment/Plan Problem List: (1) Decubital ulcer ICD Codes: L89.90 - Pressure ulcer of unspecified site, unspecified stage SNOMED: 377807489 (2) Left leg pain ICD Codes: M79.605 - Pain in left leg SNOMED: 433559092 (3) Urinary tract infection in male ICD Codes: N39.0 - Urinary tract infection, site not specified SNOMED: 91055978, 334358752 (4) Drug (multiple) resistant infection SNOMED: 13784692, 08204584454351 (5) UTI (urinary tract infection) ICD Codes: N39.0 - Urinary tract infection, site not specified SNOMED: 31367685 (6) Hypotension ICD Codes: I95.9 - Hypotension, unspecified SNOMED: 94984936 Status: stable Assessment/Plan: Assessment/Plan: 59 year old man who presents from [facility] with weakness, encephalopathy, concern for septic shock, possible from UTI. 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 -Evaluated by endocrine for adrenal insufficiency -AM cortisol normal however patient continues to have labile BP and hyponatremia - Appreciate Nephrology consult - Appreciate Endocrine consult - Will continue Florinef, Salt Tab, and DDAVP - Continue Midodrine given labile BP - CT Brain without masses noted, will defer MRI - Refusing labs periodically #Septic shock- resolved #Proteus UTI #Acute metabolic encephalopathy -improving #Paraplegia #Sacral pressure ulcer, present on admit - Periods of hypotension and fever through hospitalization, VSS now - BC & CXR wnl - Covid 19 - negative - S/p vancomycin, cefepime, and flagyl - Spoke with surgery, sacral pressure ulcer does not appear to be infected - Local wound care and offloading - Appreciate ID consult #Fungal UTI - Patient is high risk for fungemia - Diflucan 11/16 - 11/23 -Appreciate ID Consult #Sinus Bradycardia - resolved -continue telemetry -EP following #Hyponatremia #Hypokalemia -improving -Intermittently refusing labs -Replete when necessary -On DDAVP intranasal #Anemia, acute on chronic -2 units RBC 10/28 -Hematology following, no signs of overt bleeding - Continue Iron tab - Keep Hb >7 #Chronic Lower extremity pain Likely 2' contractures and prior accident - Gabapentin, [place], Baclofen FEN: Heparin q12 Jevity TF #Dispo - Awaiting SNF bed placement. Appreciate referrals placed by CM. I spent 40 minutes on this patient's care today, and 20mins was dedicated to counseling and care coordination. Discussed with all consultants and charge nurse. Subjective Date patient seen: Nov 20, 2019 Time patient seen: 10:32 ROS Limited/Unobtainable: No Constitutional: Denies: no symptoms, chills, diaphoresis, fever, malaise, weakness, other HEENT: Denies: no symptoms, eye pain, blurred vision, tearing, double vision, ear pain, ear discharge, nose pain, nose congestion, throat pain, throat swelling, mouth pain, mouth swelling, other Cardiovascular: Denies: no symptoms, chest pain, edema, irregular heart rate, lightheadedness, palpitations, syncope, other Respiratory: Denies: no symptoms, cough, orthopnea, shortness of breath, SOB with excertion, SOB at rest, sputum, stridor, wheezing, other Gastrointestinal/Abdominal: Denies: no symptoms, abdomen distended, abdominal pain, black stools, tarry stools, blood in stool, constipated, diarrhea, difficulty swallowing, nausea, poor appetite, poor fluid intake, rectal bleeding , vomiting, other Genitourinary: Denies: no symptoms, burning, discharge, frequency, flank pain, hematuria, incontinence, pain, urgency, other Neurologic/Psychiatric: Denies: no symptoms, anxiety, depressed, emotional problems, headache, numbness, paresthesia, pre-existing deficit, seizure, tingling, tremors, weakness, other Endocrine: Denies: no symptoms, excessive sweating, flushing, intolerance to cold, intolerance to heat, increased hunger, increased thirst, increased urine, unexplained weight gain, unexplained weight loss, other Hematologic/Lymphatic: Denies: no symptoms, anemia, easy bleeding, easy bruising, other Allergies: Coded Allergies: No Known Allergies (Unverified , 08/15/19) Subjective Spoke to patient in limited Maltese this morning Continues to express grief about not returning to SNF Subjectively feeling well Objective Last 24 Hour Vital Signs Date Time Temp Pulse Resp B/P (MAP) Pulse Ox O2 Delivery O2 Flow Rate FiO2 11/20/19 09:31 98.4 11/20/19 09:00 Room Air 11/20/19 08:00 98.4 98 20 139/87 (104) 98 11/20/19 04:00 98.6 69 20 105/64 (78) 98 11/20/19 00:00 98.2 76 18 105/67 (80) 100 11/19/19 21:00 Room Air 11/19/19 20:00 98.4 72 18 100/57 (71) 100 11/19/19 16:00 98.4 62 18 96/51 (66) 97 Intake and Output 11/19/19 11/20/19 19:00 07:00 Intake Total 1080 ml 480 ml Output Total 600 ml 700 ml Balance 480 ml -220 ml Intake Oral 1080 ml 480 ml Output Urine Total 600 ml 700 ml # Bowel Movements 2 1 Height (Feet): 5 Height (Inches): 7.00 Weight (Pounds): 114 General Appearance: no apparent distress, alert EENT: PERRL/EOMI Neck: non-tender, supple Cardiovascular: normal rate, regular rhythm Respiratory/Chest: chest wall non-tender, normal breath sounds Abdomen: normal bowel sounds, non tender, soft, other - PEG tube in place, Colostomy in place Extremities: other - 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 Nov 20, 2019 12:23
--- NOTE | 2019-11-20 12:31 | Surgery Progress Note ---
Surgery Progress Note Subjective Symptoms: improved, tolerating diet, voiding well, passing flatus, BM Objective Last 24 Hour Vital Signs Date Time Temp Pulse Resp B/P (MAP) Pulse Ox O2 Delivery O2 Flow Rate FiO2 11/20/19 12:00 98.1 90 19 120/79 (93) 98 11/20/19 09:31 98.4 11/20/19 09:00 Room Air 11/20/19 08:00 98.4 98 20 139/87 (104) 98 11/20/19 04:00 98.6 69 20 105/64 (78) 98 11/20/19 00:00 98.2 76 18 105/67 (80) 100 11/19/19 21:00 Room Air 11/19/19 20:00 98.4 72 18 100/57 (71) 100 11/19/19 16:00 98.4 62 18 96/51 (66) 97 I&O Intake and Output 11/19/19 11/20/19 19:00 07:00 Intake Total 1080 ml 480 ml Output Total 600 ml 700 ml Balance 480 ml -220 ml Intake Oral 1080 ml 480 ml Output Urine Total 600 ml 700 ml # Bowel Movements 2 1 Dressing: saturated Wound: clean Cardiovascular: RSR Respiratory: decreased breath sounds Abdomen: non-tender, present bowel sounds Extremities: no edema, no tenderness, no cyanosis Plan Problems: (1) Abdominal distension Assessment & Plan: abd distention soft non tender ostomy viable and reduced KUB ordered pending results improved comfortable no complaints okay for diet s tolerated d/c planning much improved There is an inferior vena cava filter in place. Bowel gas pattern is unremarkable. Considerable stool is seen in the transverse and distal colon. There is extensive pelvic deformity, with loss of the left femoral head, chronic dislocation of the left femur, and extensive pelvic deformity, particularly on the left. [place] project over the upper pelvis Impression: Possible constipation. pending placement Nonobstructed bowel gas pattern. Moderate fecal retention of the ascending colon and sigmoid colon. The degree of stool burden has increased from October 25, 2019. IVC filter, incidentally noted. Partial subluxation of the right hip. Osteotomy of the proximal left femur with deformity of the bilateral pubic rami and left acetabulum, unchanged. 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 [place] Shaped, Full Thickness Sacral Pressure Injury which extends into L ischium. (L)15.4cm x (W)18cm x (D)2.4cm, Undermining clockwise 10-2 by 7.7cm @ 11o'clock. Base of wound is moist,pink with scattered slough at base of wound. Bone is palpable at the Base. No odor or exudate noted. Scattered partial thickness wounds and Serous filled blisters noted to R trochanteric /R Hip areas. Historical scar noted to L groin, L Hip L Buttocks. Bony protrusion noted at L Hip. Full thickness Pressure Injury R Ischium(L)5.4cm x(W)6.9cm x (D)1.8cm, Undermining clockwise 1-4 by 2.7cm @2o'clock, Tunneling@7o'clock 2.9cm. Base of wound is moist pink with scattered slough. Scattered slough noted along borders. NO odor or exudate noted. Stable dry eschar noted to medial R knee 0.7cm x (W)0.4cm. Periwound is erythematous and indurated. No elevation in skin temp noted. L heel has shaved appearance secondary to Hx of Pressure Injuries. Base of heel is pale pink. Bone is palpable. Small area of slough noted within compromised area(L)0.6cm x (W)0.8cm. L Heel Also has shaved appearance with hypertrophic scarring. Base of compromised area is pale pink, Bone is palpable, with scattered loose, dry and scaly skin. Tx.Plan: Cleanse Sacral Wound and R Ischial wounds with Dakin's 0.125% gian. Loosely pack wounds with Hydrogel impregnated Kerlix. Apply Moisture Barrier Paste periwound. Cover with ABD Pads secure with Tegaderm drsg.Daily and prn. Apply Triad Paste to R Hip/R trochanteric areas.Cover with Optifoam drsg. Change every 7 days and prn. Apply Betadine to Medial R Knee. Cover with Optifoam drsg. Change every 7 days and prn. Apply Betadine to R and L Heels. Cover each Heel with Optifoam drsgs. Change every 7 days and prn. Cover Bony Prominences as needed with Optifoam drsgs. Reposition at least every [address] tolerated[address] Pillow between knees. Off-load heels with pillow. APM/SUMI Mattress overlay DAILY ESTIMATED NEEDS: Needs based on Advanced wounds, wt loss/ 40.18kg 35-40 kcals/kg 5094-3973 total kcals 1.5-2.0 g protein/kg 60-80 g total protein 25-35ml/kcal mL/kg 3282-6473 total fluid mLs NUTRITION DIAGNOSIS: Increased kcal/prot/micronutrients needs R/T wound healing and underweight status as evidenced by pt admitted w/ multiple advanced wounds, refer to WC eval, pt now w/ further 3% unfavorable wt loss, currently BMI underweight per guidelines, @62% of [place] Body Weight. CURRENT DIET: Regular PO DIET RECOMMENDATIONS: REGULAR, texture as tolerated or per FACILITIES PLANNER + Ensure Enlive TID w/ meals ADDITIONAL RECOMMENDATIONS: * Per SNF: HT=66" WT=88lbs; -> vs current EMR wt =120# -> Recalibrate bed scale for accurate wts * Continue Ensure TID, whole milk TID w/ meals * Monitor for continued improved/good Po intake * Wound healing:add MVI w/ min qdaily Continue w/ ZnSO4, Vit C, and Amari BID * Monitor Na, need for fluid restriction - (132 improved, on nacl) (15) SEAN (acute kidney injury) (16) Ileostomy prolapse Assessment & Plan: currently reduced but abd distended pending films films reviewed improved okay for diet d/c planning Cornelius Salgado Nov 20, 2019 12:31
--- NOTE | 2019-11-20 12:37 | Cardiac Electrophysiology PN ---
Assessment/Plan Assessment/Plan 1. S/P Septic shock. On Midodrine, iv fluids and antibiotic via PICC line. 2. Bradycardia. Resolved. 3. Paraplegia. 4. Urinary tract infection, 5. Decubitus ulcers with sacral decubitus. 6. S/P Ileostomy/ 7. Polyuria, DI. On NS, Salt tablets DW animal therapist pending Subjective Subjective Alert in NAD. RN at bedside. S/P PICC line. DC to SNIF pending placement Objective Last 24 Hour Vital Signs Date Time Temp Pulse Resp B/P (MAP) Pulse Ox O2 Delivery O2 Flow Rate FiO2 11/20/19 12:00 98.1 90 19 120/79 (93) 98 11/20/19 09:31 98.4 11/20/19 09:00 Room Air 11/20/19 08:00 98.4 98 20 139/87 (104) 98 11/20/19 04:00 98.6 69 20 105/64 (78) 98 11/20/19 00:00 98.2 76 18 105/67 (80) 100 11/19/19 21:00 Room Air 11/19/19 20:00 98.4 72 18 100/57 (71) 100 11/19/19 16:00 98.4 62 18 96/51 (66) 97 Intake and Output 11/19/19 11/20/19 19:00 07:00 Intake Total 1080 ml 480 ml Output Total 600 ml 700 ml Balance 480 ml -220 ml Intake Oral 1080 ml 480 ml Output Urine Total 600 ml 700 ml # Bowel Movements 2 1 Objective HEAD AND NECK: No JVD. LUNGS: Coarse rhonchi. CARDIOVASCULAR: Regular S1 and S2 with no gallop. ABDOMEN: Soft.S/P Ileostomy EXTREMITIES: No pitting edema, however, has pressure ulcers. Carloz Estes MD Nov 20, 2019 12:37
--- NOTE | 2019-11-20 13:02 | Infectious Diseases Prog Note ---
Assessment/Plan Assessment/Plan ASSESSMENT AND PLAN: 1. hx sepsis/shock, hx proteus uti, hx esbl e.coli uti, possible aspiration pna/ hcap vs cap, sacral wound - ? 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 fungemia bp low again, fevers persist, ? new line infection, ? adrenal insufficiency covid-19 testing negative surveillance blood cultures negative, chest x-ray negative, uc-c. tropicalis , recurrent fungal uti, fungemia risk - s/p abx - treat for adrenal insufficiency - diflucan x 1 day - d/w RN - fevers resolved - wound care per surgery - s/p full abx course 2. ICU care. 3. Sacral wound -wound mostly clean, management per surgery 4. Ostomy malfunction - per surgery 5. Hypertension. 6. Paraplegia. 7. Anemia. 8. History of decubitus ulcer, rule out infection. Infectious diseases is following. The patient on antibiotics. 9. Hypertension treatment per primary care team. 10. Continue treatment per primary consultants. 11. No known drug allergies. 12. Social history is negative. 13. Family history is noncontributory. 14. MAR was noted. 15. Case discussed with RN. Subjective Constitutional: Reports: fatigue; Denies: fever HEENT: Denies: congestion Respiratory: Denies: shortness of breath Cardiovascular: Denies: chest pain Gastrointestinal/Abdominal: Denies: nausea, vomiting, diarrhea Genitourinary: Reports: other - + donohue Neurologic: Denies: headache Psychiatric: Denies: depression Skin: Denies: rash Hematologic: Denies: bleeding Musculoskeletal: Denies: pain Allergies: Coded Allergies: No Known Allergies (Unverified , 08/15/19) Objective Last 24 Hour Vital Signs Date Time Temp Pulse Resp B/P (MAP) Pulse Ox O2 Delivery O2 Flow Rate FiO2 11/20/19 12:33 98.4 11/20/19 12:00 98.1 90 19 120/79 (93) 98 11/20/19 09:31 98.4 11/20/19 09:00 Room Air 11/20/19 08:00 98.4 98 20 139/87 (104) 98 11/20/19 04:00 98.6 69 20 105/64 (78) 98 11/20/19 00:00 98.2 76 18 105/67 (80) 100 11/19/19 21:00 Room Air 11/19/19 20:00 98.4 72 18 100/57 (71) 100 11/19/19 16:00 98.4 62 18 96/51 (66) 97 Height (Feet): 5 Height (Inches): 7.00 Weight (Pounds): 114 General Appearance: no acute distress HEENT: normocephalic, atraumatic, anicteric, mucous membranes moist Respiratory/Chest: lungs clear, normal breath sounds, no respiratory distress, no accessory muscle use Cardiovascular: normal rate, regular rhythm, no gallop/murmur, no JVD Abdomen: normal bowel sounds, soft, non tender, no organomegaly, non distended Genitourinary: other - + donohue - urine clear Extremities: no cyanosis Skin: no rash Neurologic/Psychiatric: ruby on rails consultant II-XII grossly normal, alert, responsive Lymphatic: no neck adenopathy Musculoskeletal: no effusion Chest x-ray - 10/25/19 - Procedure: XRAY Chest 1v Indication: Shortness of breath Technique: One view of the chest Comparison: 10/23/2019 Findings: There are bilateral basilar infiltrates, which appear new or increased since prior study. There is some atelectasis at the left lung base as well. Right jugular central venous catheter remains. The heart size is normal. Impression: New/increased bilateral basilar infiltrates, since prior study 2019 Chest x-ray - 10/27/19 - Procedure: XRAY Chest 1v Indication: Shortness of breath Technique: One view of the chest Comparison: 10/25/2019 Findings: There is atelectasis possibly some focal consolidation at the right lung base. Atelectatic changes previously demonstrated at the left lung base have largely cleared. Right jugular central venous catheter remains. The heart size is normal. Impression: Improving left basilar atelectasis. Otherwise little car changer 2 days findings as noted Chest x-ray - 10/29/19 - FINDINGS: Lungs: Persistent subsegmental atelectasis in bilateral lower lungs, not significant changed compared to the prior exam. No new consolidation is seen. Pleural space: Unremarkable. The costophrenic angles are sharp. No visible pneumothorax. Heart: Unremarkable. No cardiomegaly. Mediastinum: Unremarkable. Bones/joints: Unremarkable. Vasculature: Mild atherosclerotic calcifications are noted within the aortic arch. Tubes, lines and devices: Stable positioning of a right IJ central venous catheter with the tip in the SVC. Telemetry leads overlie the thorax. IMPRESSION: Persistent subsegmental atelectasis in bilateral lower lungs, not significantly changed compared to the prior exam. Chest x-rasy - 11/03/19 - Procedure: XRAY Chest 1v Indication: Cough Technique: One view of the chest Comparison: 10/29/2019 Findings: There are increased atelectatic changes at the lung bases. Interim removal of previously demonstrated central venous catheter. The pleural spaces are clear. The heart size is normal. Impression: Increasing bilateral basilar atelectasis Interim central venous catheter removal. Chest x-ray - 11/07/19 - Procedure: XRAY Chest 1v Indication: Shortness of breath Technique: One view of the chest Comparison: 11/03/2019 Findings: Bilateral basilar atelectatic changes appear similar to the previous exam. There may be some patchy left perihilar and bilateral peripheral consolidation. The heart size is normal. Impression: New or increased faint patchy peripheral and left perihilar consolidative opacities, possibly reflecting multifocal pneumonia, since prior study 03/04/2019 Persistent bilateral basilar atelectatic changes Chest x-ray - 11/09/19 - Procedure: XRAY Chest 1v Indication: Cough Technique: One view of the chest Comparison: 11/07/2019 Findings: There is improved aeration of the lung bases, although some atelectasis persists bilaterally. No new infiltrates. The pleural spaces are clear. The heart size is normal. Impression: Improved aeration with decreased basilar atelectasis Chest x-ray - 11/14/19 - Procedure: XRAY Chest 1v Indication: Cough Technique: One view of the chest Comparison: 11/09/2019 Findings: Bilateral basilar atelectasis has increased. No new infiltrates. The pleural spaces remain clear. The heart size is normal. Impression: Increased bilateral basilar atelectasis, since prior study 11/09/2019 Chest x-ray - 11/15/19 - Procedure: XRAY Chest 1v Indication: Cough Technique: One view of the chest Comparison: 11/13/2019 Findings: Again demonstrated is bilateral basilar atelectasis versus scarring. The lungs and pleural spaces are otherwise clear. The heart size is normal. Interim placement right arm PICC. Impression: No acute process Microbiology Date/Time Source Procedure Growth Status 11/13/19 02:00 Blood Blood Culture - Final NO GROWTH AFTER 5 DAYS Complete 11/02/19 13:30 Nasopharynx SARS-CoV-2 RdRp Gene Assay - Final Complete 11/12/19 16:30 Indwelling Cath Urine Culture - Final Rita Tropicalis Complete 11/03/19 08:00 Catheter Site Catheter Tip Culture - Final Staphylococcus Sp Coag Neg Complete wbc - 7.1 hgb - 8.7 cr - 0.6 Current Medications Medications (Trade) Dose Ordered Sig/Mya Route PRN Reason Start Time Stop Time Status Last Admin Dose Admin Acetaminophen (Tylenol) 650 mg Q4H PRN ORAL Mild Pain (Pain Scale 1-3) 11/05/19 14:00 11/30/19 13:59 11/20/19 12:03 Acetaminophen (Tylenol) 650 mg Q4H PRN ORAL Temp >100.5 11/05/19 16:00 12/05/19 15:59 11/11/19 16:39 Acetaminophen/ Hydrocodone Bitart ([place] 10/325) 1 tab Q4H PRN ORAL Severe Pain (Pain Scale 7-10) 11/15/19 19:45 11/22/19 19:44 11/20/19 09:00 Ascorbic Acid (Vitamin C) 500 mg DAILY ORAL 11/06/19 09:00 11/23/19 08:59 11/20/19 08:59 Baclofen (Lioresal) 10 mg THREE TIMES A DAY ORAL 11/05/19 18:00 11/22/19 17:59 11/20/19 12:02 Chlorhexidine Gluconate (Simran-Hex 2%) 1 applic DAILY@1999 TOPIC 11/13/19 20:00 02/11/20 19:59 11/19/19 20:23 Desmopressin Acetate (Ddavp) 1 spray DAILY NASAL 11/14/19 09:00 02/07/20 17:59 11/20/19 09:00 Dextrose (Dextrose 50%) 25 ml Q30M PRN IV Hypoglycemia 11/05/19 13:30 01/21/20 17:29 Dextrose (Dextrose 50%) 50 ml Q30M PRN IV Hypoglycemia 11/05/19 13:30 01/21/20 17:29 Diphenhydramine HCl (Benadryl) 25 mg Q6H PRN ORAL Itching/Pruritis 11/05/19 14:00 11/22/19 07:54 Docusate Sodium (Colace) 100 mg EVERY 12 HOURS ORAL 11/05/19 21:00 11/22/19 20:59 11/20/19 08:59 Famotidine (Pepcid) 20 mg DAILY ORAL 11/06/19 09:00 01/28/20 09:29 11/20/19 09:00 Ferrous Sulfate (Feosol) 325 mg DAILY ORAL 11/06/19 09:00 01/22/20 08:59 11/20/19 08:59 Fluconazole (Diflucan) 200 mg DAILY ORAL 11/17/19 09:00 11/24/19 08:59 11/20/19 08:59 Fludrocortisone Acetate (Florinef) 0.1 mg DAILY ORAL 11/15/19 09:00 12/15/19 08:59 11/20/19 08:59 Gabapentin (Neurontin) 400 mg Q8HR ORAL 11/05/19 14:00 12/03/19 21:59 11/20/19 05:26 Heparin Sodium (Porcine) (Heparin 5000 units/ml) 5,000 units EVERY 12 HOURS SUBQ 11/05/19 21:00 12/08/19 08:59 11/20/19 09:01 Magnesium Hydroxide (Mom) 30 ml HSPRN PRN ORAL Constipation 11/13/19 11:15 12/13/19 11:14 Midodrine (Pro-Amatine) 10 mg EVERY 8 HOURS ORAL 11/05/19 14:00 01/21/20 17:59 11/20/19 05:26 Ondansetron HCl (Zofran) 4 mg Q6H PRN IVP Nausea & Vomiting 11/05/19 14:00 11/22/19 07:57 Sodium Hypochlorite (Dakin's Quarter Strength) 1 applic DAILY TOPIC 11/06/19 09:00 11/24/19 08:59 11/20/19 09:00 Sodium Chloride (NaCl) 1 gm THREE TIMES A DAY ORAL 11/09/19 13:00 12/09/19 12:59 11/20/19 12:02 Zinc Sulfate (Zinc Sulfate) 220 mg DAILY ORAL 11/06/19 09:00 01/22/20 08:59 11/20/19 08:59 Sharif Painting MD Nov 20, 2019 13:02
[2019-11-20 16:00] VITALS: BP 132/83
[2019-11-20 20:00] VITALS: BP 85/50
[2019-11-20] MEDS: Dyna-Hex 2% Top Sol 2oz TOPIC SCH (21:00)
[2019-11-20] MEDS ORDERED: Vancomycin 1gm/D5W 275ml IVPB ONE ×2 (22:00)
[2019-11-21] VITALS: BP 103/59
[2019-11-21 00:06] LABS: APPEARANCE,URINE CLEAR; BILIRUBIN, URINE NEGATIVE (NEGATIVE); GLUCOSE, URINE (UA) NEGATIVE (NEGATIVE); KETONES,URINE NEGATIVE (NEGATIVE); LEUKOCYTE ESTERASE ,URINE 1+ (NEGATIVE); NITRITE,URINE NEGATIVE (NEGATIVE); PH,URINE 6 (4.5-8.0); PROTEIN,URINE 2+ (NEGATIVE); UROBILINOGEN,URINE NORMAL MG/DL (0.0-1.0)
[2019-11-21 00:15] LABS: COLOR,URINE YELLOW
[2019-11-21] MEDS: Meropenem 1 GM in NS 55 ML IVPB SCH ×4 (00:20→21:08)
[2019-11-21 04:00] VITALS: BP 113/70
[2019-11-21] MEDS: HYDROcodone/Acetamin 10/325 tab ORAL PRN ×4 (04:42→17:02)
[2019-11-21] MEDS: Midodrine 10mg tab ORAL SCH ×3 (05:13→21:08)
--- NOTE | 2019-11-21 07:45 | Hematology/Onc Progress Note ---
Assessment/Plan Assessment/Plan Assessment/recs # Anemia rule out gi bleed, as well as iron deficiency --> hgb 8.2-->7.2-->7.1->6.9-->8.6-->8.3-->9.3-->8.3-->9.3--.9.2->8.7 --> anemia panel ordered--> cw acd --> occult blood pending-->neg --> gi eval prn --> transfuse as needed --> transfuse 2 units 10/27 --> po iron to continue # Coagulopathy with elev ptt/inr --> vitk and ffp as needed --> no bleeding noted at this time # Thrombocytosis likely reactive process --> plt 398-->608-->605 --> abx as needed # Sepsis due to uti, with Hypotension likely due to septic shock. Was diuresing heavily at 300 mL an hour. --> Continue on midodrine and dopamine. --> ABX vancomycin and meropenem and amikacin-->christel/vanc/difluc --> before requires pressors --> as per cards # Bradycardia. --> per cards # Paraplegia. # Decubitus ulcers with sacral decubitus. # Dvt heparin sq Appreciate consultation and dw RN Subjective HEENT: Denies: no symptoms, eye pain, blurred vision, tearing, double vision, ear pain, ear discharge, nose pain, nose congestion, throat pain, throat swelling, mouth pain, mouth swelling, other Cardiovascular: Denies: no symptoms, chest pain, edema, irregular heart rate, lightheadedness, palpitations, syncope, other Respiratory: Denies: no symptoms, cough, shortness of breath, SOB with excertion, SOB at rest, sputum, wheezing, other Gastrointestinal/Abdominal: Denies: no symptoms, abdomen distended, abdominal pain, black stools, tarry stools, blood in stool, constipated, diarrhea, difficulty swallowing, nausea, poor appetite, poor fluid intake, rectal bleeding , vomiting, other Genitourinary: Denies: no symptoms, burning, discharge, frequency, flank pain, hematuria, incontinence, pain, urgency, other Neurologic/Psychiatric: Denies: no symptoms, anxiety, depressed, emotional problems, headache, numbness, paresthesia, pre-existing deficit, seizure, tingling, tremors, weakness, other Endocrine: Denies: no symptoms, excessive sweating, flushing, intolerance to cold, intolerance to heat, increased hunger, increased thirst, increased urine, unexplained weight gain, unexplained weight loss, other Allergies: Coded Allergies: No Known Allergies (Unverified , 08/15/19) Subjective 10/27 labs again refused this am, yesterday was low, chandrakant england in icu 10/28 remains in icu, for 2units prbc this am, chandrakant rn, no other events 10/29 s/p prbc, tolerated it well, no bleeding, on 1mcg levo, in icu 10/30 on abx, on levo and overnight no other events, 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\ 10/31 wounds improved, labs noted, no bleeding, hgb lower, refusing care/wound care 11/01 labs noted, no bleeding, no hematochezia, no hemoptysis, cbc ordered 11/02 meds reviewed, labs noted, no bleeding, chandrakant eng[place], no major changes, hgb 8.3 11/04 labs have been noted, no bleeding, meds reviewed, no hemolysis 11/05 functional colostomy llq, no bleeding, cbc is pending for am 11/06 labs have been refused, hgb 8.3, no bleeding, wbc is higher in am 11/07 labs have initially been refused, no bleeding in am, wbc 13, on abx 11/08 labs reviewed, no bleeding, chandrakant eng[place], cbc is pending for am 11/09 is on vanc/difl/christel, no other changes, cbc and bmp are noted 11/11 has been asymptomatic, eating breakfast, hgb 9.3, on abx 11/12 labs are noted, no bleeding, chandrakant england, no major changes, abx 11/13 is currently on christel and vancchandrakant rn, no major bleeding, on hep sq 11/14 labs are noted, does not want to be changed currently, cbc/bmp ordered 11/15 labs reviewed, c/o pain at picc line, no bleeding, meds noted, hgb 8.7 11/16 labs are noted, has been cleared, for dc planning to snf 11/[address], no bleeding, meds noted, continues to be on heparin sq 11/19 labs noted, no bleeding, comfortable, cbc is ntoed and bmp for am labs 11/[address], with dressing change as needed, meds noted, labs reviewed Objective Objective Current Medications Medications (Trade) Dose Ordered Sig/Mya Route PRN Reason Start Time Stop Time Status Last Admin Dose Admin Acetaminophen (Tylenol) 650 mg Q4H PRN ORAL Mild Pain (Pain Scale 1-3) 11/05/19 14:00 11/30/19 13:59 11/20/19 12:03 Acetaminophen (Tylenol) 650 mg Q4H PRN ORAL Temp >100.5 11/05/19 16:00 12/05/19 15:59 11/11/19 16:39 Acetaminophen/ Hydrocodone Bitart ([place] 10/325) 1 tab Q4H PRN ORAL Severe Pain (Pain Scale 7-10) 11/15/19 19:45 11/22/19 19:44 11/21/19 04:42 Ascorbic Acid (Vitamin C) 500 mg DAILY ORAL 11/06/19 09:00 11/23/19 08:59 11/20/19 08:59 Baclofen (Lioresal) 10 mg THREE TIMES A DAY ORAL 11/05/19 18:00 11/22/19 17:59 11/20/19 17:57 Chlorhexidine Gluconate (Simran-Hex 2%) 1 applic DAILY@2000 TOPIC 11/13/19 20:00 02/11/20 19:59 11/20/19 21:00 Desmopressin Acetate (Ddavp) 1 spray DAILY NASAL 11/14/19 09:00 02/07/20 17:59 11/20/19 09:00 Dextrose (Dextrose 50%) 25 ml Q30M PRN IV Hypoglycemia 11/05/19 13:30 01/21/20 17:29 Dextrose (Dextrose 50%) 50 ml Q30M PRN IV Hypoglycemia 11/05/19 13:30 01/21/20 17:29 Diphenhydramine HCl (Benadryl) 25 mg Q6H PRN ORAL Itching/Pruritis 11/05/19 14:00 11/22/19 07:54 Docusate Sodium (Colace) 100 mg EVERY 12 HOURS ORAL 11/05/19 21:00 11/22/19 20:59 11/20/19 21:03 Famotidine (Pepcid) 20 mg DAILY ORAL 11/06/19 09:00 01/28/20 09:29 11/20/19 09:00 Ferrous Sulfate (Feosol) 325 mg DAILY ORAL 11/06/19 09:00 01/22/20 08:59 11/20/19 08:59 Fluconazole (Diflucan) 200 mg DAILY ORAL 11/17/19 09:00 11/24/19 08:59 11/20/19 08:59 Fludrocortisone Acetate (Florinef) 0.1 mg DAILY ORAL 11/15/19 09:00 12/15/19 08:59 11/20/19 08:59 Gabapentin (Neurontin) 400 mg Q8HR ORAL 11/05/19 14:00 12/03/19 21:59 11/21/19 05:13 Heparin Sodium (Porcine) (Heparin 5000 units/ml) 5,000 units EVERY 12 HOURS SUBQ 11/05/19 21:00 12/08/19 08:59 11/20/19 21:04 Magnesium Hydroxide (Mom) 30 ml HSPRN PRN ORAL Constipation 11/13/19 11:15 12/13/19 11:14 Meropenem 1 gm/ Sodium Chloride 55 ml @ 110 mls/hr Q8HR IVPB 11/21/19 00:00 11/26/19 00:00 11/21/19 05:13 Midodrine (Pro-Amatine) 10 mg EVERY 8 HOURS ORAL 11/05/19 14:00 01/21/20 17:59 11/21/19 05:13 Ondansetron HCl (Zofran) 4 mg Q6H PRN IVP Nausea & Vomiting 11/05/19 14:00 11/22/19 07:57 Sodium Hypochlorite (Dakin's Quarter Strength) 1 applic DAILY TOPIC 11/06/19 09:00 11/24/19 08:59 11/20/19 09:00 Sodium Chloride (NaCl) 1 gm THREE TIMES A DAY ORAL 11/09/19 13:00 12/09/19 12:59 11/20/19 17:57 Vancomycin HCl (Vanco pharmacy to dose) 1 ea DAILY PRN MISC Per rx protocol 11/20/19 20:30 12/20/19 20:29 Vancomycin HCl 750 mg/Sodium Chloride 275 ml @ 183.333 mls/hr Q12H IVPB 11/21/19 10:00 11/26/19 09:59 Zinc Sulfate (Zinc Sulfate) 220 mg DAILY ORAL 11/06/19 09:00 01/22/20 08:59 11/20/19 08:59 Last 24 Hour Vital Signs Date Time Temp Pulse Resp B/P (MAP) Pulse Ox O2 Delivery O2 Flow Rate FiO2 11/21/19 04:00 97.7 70 18 113/70 (84) 99 11/21/19 00:00 98.2 58 18 103/59 (74) 99 11/20/19 21:00 Room Air 11/20/19 20:00 101.7 96 20 85/50 (62) 94 11/20/19 18:36 98.3 11/20/19 16:00 98.3 90 19 132/83 (99) 98 11/20/19 12:33 98.4 11/20/19 12:00 98.1 90 19 120/79 (93) 98 11/20/19 09:00 Room Air 11/20/19 08:00 98.4 98 20 139/87 (104) 98 11/20/19 04:00 98.6 69 20 105/64 (78) 98 11/20/19 00:00 98.2 76 18 105/67 (80) 100 11/19/19 21:00 Room Air 11/19/19 20:00 98.4 72 18 100/57 (71) 100 11/19/19 16:00 98.4 62 18 96/51 (66) 97 11/19/19 12:00 97.8 75 18 114/68 (83) 97 11/19/19 09:00 Room Air 11/19/19 08:00 97.2 78 18 98/64 (75) 96 Intake and Output 11/20/19 11/21/19 19:00 07:00 Intake Total 600 ml 360 ml Output Total 700 ml 600 ml Balance -100 ml -240 ml Intake Oral 600 ml Other 360 ml Output Urine Total 700 ml 600 ml # Bowel Movements 1 Labs Test 11/20/19 23:30 Urine Color Yellow Urine Appearance Clear Urine pH 6 (4.5-8.0) Urine Specific [place] 1.020 (1.005-1.035) Urine Protein 2+ (NEGATIVE) Urine Glucose (UA) Negative (NEGATIVE) Urine Ketones Negative (NEGATIVE) Urine Blood 1+ (NEGATIVE) Urine Nitrite Negative (NEGATIVE) Urine Bilirubin Negative (NEGATIVE) Urine Urobilinogen Normal MG/DL (0.0-1.0) Urine Leukocyte Esterase 1+ (NEGATIVE) Urine RBC 0-2 /HPF (0 - 0) Urine WBC 0-2 /HPF (0 - 0) Urine Squamous Epithelial Cells None /LPF (NONE/OCC) Urine Bacteria None /HPF (NONE) Height (Feet): 5 Height (Inches): 7.00 Weight (Pounds): 114 Objective Physical Exam General Appearance: lethargic Lines, tubes and drains: peripheral, central line HEENT: normocephalic Neck: non-tender, normal alignment Respiratory/Chest: lungs clear Cardiovascular/Chest: normal peripheral pulses, normal rate, regular rhythm Abdomen: normal bowel sounds, non tender ++ llq colostomy Martínez Capps MD Nov 21, 2019 07:45
[2019-11-21 08:00] VITALS: BP 114/75
--- NOTE | 2019-11-21 08:17 | General Progress Note ---
Assessment/Plan Status: stable Assessment/Plan: 59 year old man who presents from [facility] with weakness, encephalopathy, concern for septic shock, possible from UTI. 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 -Evaluated by endocrine for adrenal insufficiency -AM cortisol normal however patient continues to have labile BP and hyponatremia - Appreciate Nephrology consult - Appreciate Endocrine consult - Will continue Florinef, Salt Tab, and DDAVP - Continue Midodrine given labile BP - CT Brain without masses noted, will defer MRI - Refusing labs periodically #Fever #Septic shock- resolved #Proteus UTI #Acute metabolic encephalopathy -improving #Paraplegia #Sacral pressure ulcer, present on admit - Periods of hypotension and fever through hospitalization, VSS now - BC & CXR wnl - Covid 19 - negative - S/p vancomycin, cefepime, and flagyl - Spoke with surgery, sacral pressure ulcer does not appear to be infected - Local wound care and offloading - Fever 101.7 overnight, repeat BCx ordered, CXR - Appreciate ID consult #Fungal UTI - Patient is high risk for fungemia - Diflucan 11/16 - 11/23 -Appreciate ID Consult #Sinus Bradycardia - resolved -continue telemetry -EP following #Hyponatremia #Hypokalemia -improving -Intermittently refusing labs -Replete when necessary -On DDAVP intranasal #Anemia, acute on chronic -2 units RBC 10/28 -Hematology following, no signs of overt bleeding - Continue Iron tab - Keep Hb >7 #Chronic 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 Appreciate referrals placed by CM. I spent 35 minutes on this patient's care today, and 23 mins was dedicated to counseling and care coordination. Discussed with all consultants and charge nurse. D/w ID, Nephro and RN. Additional 25 mins spent on chart review, previous hospital admissions, H&P, progress notes, sales consultant notes, labs, radiographic findings, micro. Time of note doesn't reflect time of encounter. Subjective Allergies: Coded Allergies: No Known Allergies (Unverified , 08/15/19) Subjective Febreile overnight. Pt denies any cough, n/v, CP, SOB at this time. Pt refusing labs, educated pt on medical compliance. Objective Last 24 Hour Vital Signs Date Time Temp Pulse Resp B/P (MAP) Pulse Ox O2 Delivery O2 Flow Rate FiO2 11/21/19 04:00 97.7 70 18 113/70 (84) 99 11/21/19 00:00 98.2 58 18 103/59 (74) 99 11/20/19 21:00 Room Air 11/20/19 20:00 101.7 96 20 85/50 (62) 94 11/20/19 18:36 98.3 11/20/19 16:00 98.3 90 19 132/83 (99) 98 11/20/19 12:33 98.4 11/20/19 12:00 98.1 90 19 120/79 (93) 98 11/20/19 09:00 Room Air Intake and Output 11/20/19 11/21/19 19:00 07:00 Intake Total 600 ml 360 ml Output Total 700 ml 600 ml Balance -100 ml -240 ml Intake Oral 600 ml Other 360 ml Output Urine Total 700 ml 600 ml # Bowel Movements 1 Laboratory Tests 11/20/19 23:30: Urine Color Yellow, Urine Appearance Clear, Urine pH 6, Urine Specific [place] 1.020, Urine Protein 2+H, Urine Glucose (UA) Negative, Urine Ketones Negative, Urine Blood 1+H, Urine Nitrite Negative, Urine Bilirubin Negative, Urine Urobilinogen Normal, Urine Leukocyte Esterase 1+H, Urine RBC 0-2H, Urine WBC 0-2 , Urine Squamous Epithelial Cells None, Urine Bacteria None Height (Feet): 5 Height (Inches): 7.00 Weight (Pounds): 114 Objective General Appearance: no apparent distress, alert, sitting up in bed comfortably HEENT: NCAT, EOMI, MMM Neck: non-tender, supple Cardiovascular: normal rate, regular rhythm Respiratory/Chest: chest wall non-tender, normal breath sounds Abdomen: normal bowel sounds, non tender, soft, PEG tube in place c/d/i, Colostomy in place w/brown stool c/d/i Extremities: contractures in b/l lower extremity Neurologic: nut former II-XII grossly normal Skin: warm/dry Jerry Razo M.D. Nov 21, 2019 08:17
[2019-11-21] MEDS: Dakin's 0.125% Soln (Quarter Strength) 16oz TOPIC SCH (08:50)
[2019-11-21] MEDS: Desmopressin Nasal 5ml NASAL SCH (08:50)
[2019-11-21] MEDS: Ascorbic Acid 500mg tab ORAL SCH (08:51)
[2019-11-21] MEDS: Zinc Sulfate 220mg ORAL SCH (08:51)
[2019-11-21] MEDS: Fluconazole 100mg tab ORAL SCH (08:51)
[2019-11-21] MEDS: Sodium Chloride 1gm Tab ORAL SCH ×3 (08:51→17:01)
[2019-11-21] MEDS: Docusate 100mg cap ORAL SCH ×2 (08:51→21:00)
--- NOTE | 2019-11-21 08:53 | Nephrology Progress Note ---
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 - improved with desmporessin #Shock #UTI # infected sacral pressure ulcer #Acute metabolic encephalopathy #Paraplegia #Sacral pressure ulcer #Hypokalemia #Anemia - continue florinef 0.1mg daily -Continue desmopressin nasal - continue salt tabs 1g TID - continue midodrine 10 TID - endocrine eval noted - r/o adrenal insuffiency - antibiotics per ID - monitor lytes - avoid nephrotoxins - daily weights - strict I&Os time spent 40 min- greater than 50% on care coordination and counseling Subjective ROS Limited/Unobtainable: Yes Subjective UOP 1300 yesteday refusing lab added florinef 0.1mg daily Bp soft on nasal desmopressin on salt tabs Objective Objective Last 24 Hour Vital Signs Date Time Temp Pulse Resp B/P (MAP) Pulse Ox O2 Delivery O2 Flow Rate FiO2 11/21/19 08:00 98.0 73 18 114/75 (88) 99 11/21/19 04:00 97.7 70 18 113/70 (84) 99 11/21/19 00:00 98.2 58 18 103/59 (74) 99 11/20/19 21:00 Room Air 11/20/19 20:00 101.7 96 20 85/50 (62) 94 11/20/19 18:36 98.3 11/20/19 16:00 98.3 90 19 132/83 (99) 98 11/20/19 12:33 98.4 11/20/19 12:00 98.1 90 19 120/79 (93) 98 11/20/19 09:00 Room Air Intake and Output 11/20/19 11/21/19 19:00 07:00 Intake Total 600 ml 360 ml Output Total 700 ml 600 ml Balance -100 ml -240 ml Intake Oral 600 ml Other 360 ml Output Urine Total 700 ml 600 ml # Bowel Movements 1 Laboratory Tests 11/20/19 23:30: Urine Color Yellow, Urine Appearance Clear, Urine pH 6, Urine Specific [place] 1.020, Urine Protein 2+H, Urine Glucose (UA) Negative, Urine Ketones Negative, Urine Blood 1+H, Urine Nitrite Negative, Urine Bilirubin Negative, Urine Urobilinogen Normal, Urine Leukocyte Esterase 1+H, Urine RBC 0-2H, Urine WBC 0-2 , Urine Squamous Epithelial Cells None, Urine Bacteria None Height (Feet): 5 Height (Inches): 7.00 Weight (Pounds): 114 Sienna Georges M.D. Nov 21, 2019 08:53
[2019-11-21] MEDS: Heparin 5000 units/ml inj SUBQ SCH ×2 (08:54→21:00)
[2019-11-21] MEDS: Vancomycin 750mg/NS 275ml IVPB SCH ×4 (09:56→21:08)
--- NOTE | 2019-11-21 10:26 | Pulmonology Progress Note ---
Subjective ROS Limited/Unobtainable: No Interval Events: no fever or leucocytosis Constitutional: Reports: fatigue; Denies: fever HEENT: Repors: no symptoms Respiratory: Reports: no symptoms Cardiovascular: Reports: no symptoms Gastrointestinal/Abdominal: Denies: nausea, vomiting, diarrhea Genitourinary: Reports: no symptoms Psychiatric: Denies: depression Skin: Denies: rash Musculoskeletal: Denies: pain Allergies: Coded Allergies: No Known Allergies (Unverified , 08/15/19) All Systems: reviewed and negative except above Objective Last 24 Hour Vital Signs Date Time Temp Pulse Resp B/P (MAP) Pulse Ox O2 Delivery O2 Flow Rate FiO2 11/21/19 09:21 98.0 11/21/19 09:00 Room Air 11/21/19 08:00 98.0 73 18 114/75 (88) 99 11/21/19 04:00 97.7 70 18 113/70 (84) 99 11/21/19 00:00 98.2 58 18 103/59 (74) 99 11/20/19 21:00 Room Air 11/20/19 20:00 101.7 96 20 85/50 (62) 94 11/20/19 16:00 98.3 90 19 132/83 (99) 98 11/20/19 12:33 98.4 11/20/19 12:00 98.1 90 19 120/79 (93) 98 Intake and Output 11/20/19 11/21/19 19:00 07:00 Intake Total 600 ml 360 ml Output Total 700 ml 600 ml Balance -100 ml -240 ml Intake Oral 600 ml Other 360 ml Output Urine Total 700 ml 600 ml # Bowel Movements 1 General Appearance: no acute distress HEENT: normocephalic Respiratory: chest wall non-tender, lungs clear Cardiovascular: normal peripheral pulses, regular rhythm Abdomen: normal bowel sounds Extremities: no cyanosis Laboratory Tests 11/20/19 23:30: Urine Color Yellow, Urine Appearance Clear, Urine pH 6, Urine Specific [place] 1.020, Urine Protein 2+H, Urine Glucose (UA) Negative, Urine Ketones Negative, Urine Blood 1+H, Urine Nitrite Negative, Urine Bilirubin Negative, Urine Urobilinogen Normal, Urine Leukocyte Esterase 1+H, Urine RBC 0-2H, Urine WBC 0-2 , Urine Squamous Epithelial Cells None, Urine Bacteria None Current Medications Medications (Trade) Dose Ordered Sig/Mya Route PRN Reason Start Time Stop Time Status Last Admin Dose Admin Acetaminophen (Tylenol) 650 mg Q4H PRN ORAL Mild Pain (Pain Scale 1-3) 11/05/19 14:00 11/30/19 13:59 11/20/19 12:03 Acetaminophen (Tylenol) 650 mg Q4H PRN ORAL Temp >100.5 11/05/19 16:00 12/05/19 15:59 11/11/19 16:39 Acetaminophen/ Hydrocodone Bitart ([place] 10/325) 1 tab Q4H PRN ORAL Severe Pain (Pain Scale 7-10) 11/15/19 19:45 11/22/19 19:44 11/21/19 08:51 Ascorbic Acid (Vitamin C) 500 mg DAILY ORAL 11/06/19 09:00 11/23/19 08:59 11/21/19 08:51 Baclofen (Lioresal) 10 mg THREE TIMES A DAY ORAL 11/05/19 18:00 11/22/19 17:59 11/21/19 08:51 Chlorhexidine Gluconate (Simran-Hex 2%) 1 applic DAILY@1999 TOPIC 11/13/19 20:00 02/11/20 19:59 11/20/19 21:00 Desmopressin Acetate (Ddavp) 1 spray DAILY NASAL 11/14/19 09:00 02/07/20 17:59 11/21/19 08:50 Dextrose (Dextrose 50%) 25 ml Q30M PRN IV Hypoglycemia 11/05/19 13:30 01/21/20 17:29 Dextrose (Dextrose 50%) 50 ml Q30M PRN IV Hypoglycemia 11/05/19 13:30 01/21/20 17:29 Diphenhydramine HCl (Benadryl) 25 mg Q6H PRN ORAL Itching/Pruritis 11/05/19 14:00 11/22/19 07:54 Docusate Sodium (Colace) 100 mg EVERY 12 HOURS ORAL 11/05/19 21:00 11/22/19 20:59 11/21/19 08:51 Famotidine (Pepcid) 20 mg DAILY ORAL 11/06/19 09:00 01/28/20 09:29 11/21/19 08:51 Ferrous Sulfate (Feosol) 325 mg DAILY ORAL 11/06/19 09:00 01/22/20 08:59 11/21/19 08:51 Fluconazole (Diflucan) 200 mg DAILY ORAL 11/17/19 09:00 11/24/19 08:59 11/21/19 08:51 Fludrocortisone Acetate (Florinef) 0.1 mg DAILY ORAL 11/15/19 09:00 12/15/19 08:59 11/21/19 08:51 Gabapentin (Neurontin) 400 mg Q8HR ORAL 11/05/19 14:00 12/03/19 21:59 11/21/19 05:13 Heparin Sodium (Porcine) (Heparin 5000 units/ml) 5,000 units EVERY 12 HOURS SUBQ 11/05/19 21:00 12/08/19 08:59 11/21/19 08:54 Magnesium Hydroxide (Mom) 30 ml HSPRN PRN ORAL Constipation 11/13/19 11:15 12/13/19 11:14 Meropenem 1 gm/ Sodium Chloride 55 ml @ 110 mls/hr Q8HR IVPB 11/21/19 00:00 11/26/19 00:00 11/21/19 05:13 Midodrine (Pro-Amatine) 10 mg EVERY 8 HOURS ORAL 11/05/19 14:00 01/21/20 17:59 11/21/19 05:13 Ondansetron HCl (Zofran) 4 mg Q6H PRN IVP Nausea & Vomiting 11/05/19 14:00 11/22/19 07:57 Sodium Hypochlorite (Dakin's Quarter Strength) 1 applic DAILY TOPIC 11/06/19 09:00 11/24/19 08:59 11/21/19 08:50 Sodium Chloride (NaCl) 1 gm THREE TIMES A DAY ORAL 11/09/19 13:00 12/09/19 12:59 11/21/19 08:51 Vancomycin HCl (Vanco pharmacy to dose) 1 ea DAILY PRN MISC Per rx protocol 11/20/19 20:30 12/20/19 20:29 Vancomycin HCl 750 mg/Sodium Chloride 275 ml @ 183.333 mls/hr Q12H IVPB 11/21/19 10:00 11/26/19 09:59 11/21/19 09:56 Zinc Sulfate (Zinc Sulfate) 220 mg DAILY ORAL 11/06/19 09:00 01/22/20 08:59 11/21/19 08:51 Assessment/Plan Assessment/Plan IMPRESSION: 1. Septic shock. resolved 2. Complicated UTI with history of previous ESBL infection. 3. Paraplegia. 4. Sacral decubitus. 5. [facility] resident. DISCUSSION: DVT and GI prophylaxes. Continue Oxygen prn, doing well on room air at this time. DC planning Gregg Curtis M.D. Gregg Curtis MD Nov 21, 2019 10:26
[2019-11-21 12:00] VITALS: BP 100/59
--- NOTE | 2019-11-21 12:23 | Cardiac Electrophysiology PN ---
Assessment/Plan Assessment/Plan 1. S/P Septic shock. On Midodrine, iv fluids and antibiotic( Vano and meropenem) via PICC line. 2. Bradycardia. Resolved. 3. Paraplegia. 4. Urinary tract infection, 5. Decubitus ulcers with sacral decubitus. 6. S/P Ileostomy/ 7. Polyuria, DI. On NS, Salt tablets Placement pending Subjective Subjective Alert in NAD. DC to SNIF pending placement Objective Last 24 Hour Vital Signs Date Time Temp Pulse Resp B/P (MAP) Pulse Ox O2 Delivery O2 Flow Rate FiO2 11/21/19 12:00 97.9 60 18 100/59 (73) 99 11/21/19 09:21 98.0 11/21/19 09:00 Room Air 11/21/19 08:00 98.0 73 18 114/75 (88) 99 11/21/19 04:00 97.7 70 18 113/70 (84) 99 11/21/19 00:00 98.2 58 18 103/59 (74) 99 11/20/19 21:00 Room Air 11/20/19 20:00 101.7 96 20 85/50 (62) 94 11/20/19 16:00 98.3 90 19 132/83 (99) 98 11/20/19 12:33 98.4 Intake and Output 11/20/19 11/21/19 19:00 07:00 Intake Total 600 ml 360 ml Output Total 700 ml 600 ml Balance -100 ml -240 ml Intake Oral 600 ml Other 360 ml Output Urine Total 700 ml 600 ml # Bowel Movements 1 Laboratory Tests Test 11/20/19 23:30 Urine Color Yellow Urine Appearance Clear Urine pH 6 (4.5-8.0) Urine Specific [place] 1.020 (1.005-1.035) Urine Protein 2+ (NEGATIVE) H Urine Glucose (UA) Negative (NEGATIVE) Urine Ketones Negative (NEGATIVE) Urine Blood 1+ (NEGATIVE) H Urine Nitrite Negative (NEGATIVE) Urine Bilirubin Negative (NEGATIVE) Urine Urobilinogen Normal MG/DL (0.0-1.0) Urine Leukocyte Esterase 1+ (NEGATIVE) H Urine RBC 0-2 /HPF (0 - 0) H Urine WBC 0-2 /HPF (0 - 0) Urine Squamous Epithelial Cells None /LPF (NONE/OCC) Urine Bacteria None /HPF (NONE) Objective HEAD AND NECK: No JVD. LUNGS: Coarse rhonchi. CARDIOVASCULAR: Regular S1 and S2 with no gallop. ABDOMEN: Soft.S/P Ileostomy EXTREMITIES: No pitting edema, however, has pressure ulcers. Carloz Estes MD Nov 21, 2019 12:23
--- NOTE | 2019-11-21 12:43 | Surgery Progress Note ---
Surgery Progress Note Subjective Symptoms: improved, tolerating diet, voiding well, passing flatus, BM Objective Last 24 Hour Vital Signs Date Time Temp Pulse Resp B/P (MAP) Pulse Ox O2 Delivery O2 Flow Rate FiO2 11/21/19 12:00 97.9 60 18 100/59 (73) 99 11/21/19 09:21 98.0 11/21/19 09:00 Room Air 11/21/19 08:00 98.0 73 18 114/75 (88) 99 11/21/19 04:00 97.7 70 18 113/70 (84) 99 11/21/19 00:00 98.2 58 18 103/59 (74) 99 11/20/19 21:00 Room Air 11/20/19 20:00 101.7 96 20 85/50 (62) 94 11/20/19 16:00 98.3 90 19 132/83 (99) 98 I&O Intake and Output 11/20/19 11/21/19 19:00 07:00 Intake Total 600 ml 360 ml Output Total 700 ml 600 ml Balance -100 ml -240 ml Intake Oral 600 ml Other 360 ml Output Urine Total 700 ml 600 ml # Bowel Movements 1 Dressing: other Wound: other Cardiovascular: RSR Respiratory: decreased breath sounds Abdomen: soft, non-tender, present bowel sounds Extremities: no edema, no tenderness, no cyanosis Laboratory Tests Test 11/20/19 23:30 Urine Color Yellow Urine Appearance Clear Urine pH 6 (4.5-8.0) Urine Specific [place] 1.020 (1.005-1.035) Urine Protein 2+ (NEGATIVE) H Urine Glucose (UA) Negative (NEGATIVE) Urine Ketones Negative (NEGATIVE) Urine Blood 1+ (NEGATIVE) H Urine Nitrite Negative (NEGATIVE) Urine Bilirubin Negative (NEGATIVE) Urine Urobilinogen Normal MG/DL (0.0-1.0) Urine Leukocyte Esterase 1+ (NEGATIVE) H Urine RBC 0-2 /HPF (0 - 0) H Urine WBC 0-2 /HPF (0 - 0) Urine Squamous Epithelial Cells None /LPF (NONE/OCC) Urine Bacteria None /HPF (NONE) Plan Problems: (1) Abdominal distension Assessment & Plan: abd distention soft non tender ostomy viable and reduced KUB ordered pending results improved comfortable no complaints okay for diet s tolerated d/c planning much improved There is an inferior vena cava filter in place. Bowel gas pattern is unremarkable. Considerable stool is seen in the transverse and distal colon. There is extensive pelvic deformity, with loss of the left femoral head, chronic dislocation of the left femur, and extensive pelvic deformity, particularly on the left. Adi project over the upper pelvis Impression: Possible constipation. pending placement Nonobstructed bowel gas pattern. Moderate fecal retention of the ascending colon and sigmoid colon. The degree of stool burden has increased from October 25, 2019. IVC filter, incidentally noted. Partial subluxation of the right hip. Osteotomy of the proximal left femur with deformity of the bilateral pubic rami and left acetabulum, unchanged. 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 [place] Shaped, Full Thickness Sacral Pressure Injury which extends into L ischium. (L)15.4cm x (W)18cm x (D)2.4cm, Undermining clockwise 10-2 by 7.7cm @ 11o'clock. Base of wound is moist,pink with scattered slough at base of wound. Bone is palpable at the Base. No odor or exudate noted. Scattered partial thickness wounds and Serous filled blisters noted to R trochanteric /R Hip areas. Historical scar noted to L groin, L Hip L Buttocks. Bony protrusion noted at L Hip. Full thickness Pressure Injury R Ischium(L)5.4cm x(W)6.9cm x (D)1.8cm, Undermining clockwise 1-4 by 2.7cm @2o'clock, Tunneling@7o'clock 2.9cm. Base of wound is moist pink with scattered slough. Scattered slough noted along borders. NO odor or exudate noted. Stable dry eschar noted to medial R knee 0.7cm x (W)0.4cm. Periwound is erythematous and indurated. No elevation in skin temp noted. L heel has shaved appearance secondary to Hx of Pressure Injuries. Base of heel is pale pink. Bone is palpable. Small area of slough noted within compromised area(L)0.6cm x (W)0.8cm. L Heel Also has shaved appearance with hypertrophic scarring. Base of compromised area is pale pink, Bone is palpable, with scattered loose, dry and scaly skin. Tx.Plan: Cleanse Sacral Wound and R Ischial wounds with Dakin's 0.125% gian. Loosely pack wounds with Hydrogel impregnated Kerlix. Apply Moisture Barrier Paste periwound. Cover with ABD Pads secure with Tegaderm drsg.Daily and prn. Apply Triad Paste to R Hip/R trochanteric areas.Cover with Optifoam drsg. Change every 7 days and prn. Apply Betadine to Medial R Knee. Cover with Optifoam drsg. Change every 7 days and prn. Apply Betadine to R and L Heels. Cover each Heel with Optifoam drsgs. Change every 7 days and prn. Cover Bony Prominences as needed with Optifoam drsgs. Reposition at least every [address] tolerated[address] Pillow between knees. Off-load heels with pillow. APM/SUMI Mattress overlay DAILY ESTIMATED NEEDS: Needs based on Advanced wounds, wt loss/ 40.18kg 35-40 kcals/kg [id number] total kcals 1.5-2.0 g protein/kg 60-80 g total protein 25-35ml/kcal mL/kg [id number] total fluid mLs NUTRITION DIAGNOSIS: Increased kcal/prot/micronutrients needs R/T wound healing and underweight status as evidenced by pt admitted w/ multiple advanced wounds, refer to WC eval, pt now w/ further 3% unfavorable wt loss, currently BMI underweight per guidelines, @62% of [place] Body Weight. CURRENT DIET: Regular PO DIET RECOMMENDATIONS: REGULAR, texture as tolerated or per LADLE WATCHER + Ensure Enlive TID w/ meals ADDITIONAL RECOMMENDATIONS: * Per SNF: HT=66" WT=88lbs; -> vs current EMR wt =120# -> Recalibrate bed scale for accurate wts * Continue Ensure TID, whole milk TID w/ meals * Monitor for continued improved/good Po intake * Wound healing:add MVI w/ min qdaily Continue w/ ZnSO4, Vit C, and Amari BID * Monitor Na, need for fluid restriction - (132 improved, on nacl) (15) SEAN (acute kidney injury) (16) Ileostomy prolapse Assessment & Plan: currently reduced but abd distended pending films films reviewed improved okay for diet d/c planning Cornelius Salgado Nov 21, 2019 12:43
--- NOTE | 2019-11-21 12:49 | Infectious Diseases Prog Note ---
Assessment/Plan Assessment/Plan ASSESSMENT AND PLAN: 1. hx sepsis/shock, hx proteus uti, hx esbl e.coli uti, possible aspiration pna/ hcap vs cap, sacral wound - ? infected, mrsa and vre colonization persistent fevers, leukocytosis - ? source - meropenem and vancomycin started - CT abdomen and pelvis, cultures, labs - wound care per surgery - s/p full abx course 2. ICU care. 3. Sacral wound -wound mostly clean, management per surgery 4. Ostomy malfunction - per surgery 5. Hypertension. 6. Paraplegia. 7. Anemia. 8. History of decubitus ulcer, rule out infection. Infectious diseases is following. The patient on antibiotics. 9. Hypertension treatment per primary care team. 10. Continue treatment per primary consultants. 11. No known drug allergies. 12. Social history is negative. 13. Family history is noncontributory. 14. MAR was noted. 15. Case discussed with RN. Subjective Constitutional: Reports: fever HEENT: Denies: congestion Respiratory: Denies: shortness of breath Cardiovascular: Denies: chest pain Gastrointestinal/Abdominal: Denies: nausea Genitourinary: Reports: other - + donohue Allergies: Coded Allergies: No Known Allergies (Unverified , 08/15/19) Objective Last 24 Hour Vital Signs Date Time Temp Pulse Resp B/P (MAP) Pulse Ox O2 Delivery O2 Flow Rate FiO2 11/21/19 12:00 97.9 60 18 100/59 (73) 99 11/21/19 09:21 98.0 11/21/19 09:00 Room Air 11/21/19 08:00 98.0 73 18 114/75 (88) 99 11/21/19 04:00 97.7 70 18 113/70 (84) 99 11/21/19 00:00 98.2 58 18 103/59 (74) 99 11/20/19 21:00 Room Air 11/20/19 20:00 101.7 96 20 85/50 (62) 94 11/20/19 16:00 98.3 90 19 132/83 (99) 98 Height (Feet): 5 Height (Inches): 7.00 Weight (Pounds): 114 HEENT: normocephalic, atraumatic, anicteric Respiratory/Chest: lungs clear, normal breath sounds, no respiratory distress Cardiovascular: normal rate, regular rhythm Abdomen: normal bowel sounds, soft, non tender, no organomegaly Chest x-ray - 10/25/19 - Procedure: XRAY Chest 1v Indication: Shortness of breath Technique: One view of the chest Comparison: 10/23/2019 Findings: There are bilateral basilar infiltrates, which appear new or increased since prior study. There is some atelectasis at the left lung base as well. Right jugular central venous catheter remains. The heart size is normal. Impression: New/increased bilateral basilar infiltrates, since prior study 2019 Chest x-ray - 10/27/19 - Procedure: XRAY Chest 1v Indication: Shortness of breath Technique: One view of the chest Comparison: 10/25/2019 Findings: There is atelectasis possibly some focal consolidation at the right lung base. Atelectatic changes previously demonstrated at the left lung base have largely cleared. Right jugular central venous catheter remains. The heart size is normal. Impression: Improving left basilar atelectasis. Otherwise little spinning frame changer 2 days findings as noted Chest x-ray - 10/29/19 - FINDINGS: Lungs: Persistent subsegmental atelectasis in bilateral lower lungs, not significant changed compared to the prior exam. No new consolidation is seen. Pleural space: Unremarkable. The costophrenic angles are sharp. No visible pneumothorax. Heart: Unremarkable. No cardiomegaly. Mediastinum: Unremarkable. Bones/joints: Unremarkable. Vasculature: Mild atherosclerotic calcifications are noted within the aortic arch. Tubes, lines and devices: Stable positioning of a right IJ central venous catheter with the tip in the SVC. Telemetry leads overlie the thorax. IMPRESSION: Persistent subsegmental atelectasis in bilateral lower lungs, not significantly changed compared to the prior exam. Chest x-rasy - 11/03/19 - Procedure: XRAY Chest 1v Indication: Cough Technique: One view of the chest Comparison: 10/29/2019 Findings: There are increased atelectatic changes at the lung bases. Interim removal of previously demonstrated central venous catheter. The pleural spaces are clear. The heart size is normal. Impression: Increasing bilateral basilar atelectasis Interim central venous catheter removal. Chest x-ray - 11/07/19 - Procedure: XRAY Chest 1v Indication: Shortness of breath Technique: One view of the chest Comparison: 11/03/2019 Findings: Bilateral basilar atelectatic changes appear similar to the previous exam. There may be some patchy left perihilar and bilateral peripheral consolidation. The heart size is normal. Impression: New or increased faint patchy peripheral and left perihilar consolidative opacities, possibly reflecting multifocal pneumonia, since prior study 03/04/2019 Persistent bilateral basilar atelectatic changes Chest x-ray - 11/09/19 - Procedure: XRAY Chest 1v Indication: Cough Technique: One view of the chest Comparison: 11/07/2019 Findings: There is improved aeration of the lung bases, although some atelectasis persists bilaterally. No new infiltrates. The pleural spaces are clear. The heart size is normal. Impression: Improved aeration with decreased basilar atelectasis Chest x-ray - 11/14/19 - Procedure: XRAY Chest 1v Indication: Cough Technique: One view of the chest Comparison: 11/09/2019 Findings: Bilateral basilar atelectasis has increased. No new infiltrates. The pleural spaces remain clear. The heart size is normal. Impression: Increased bilateral basilar atelectasis, since prior study 11/09/2019 Chest x-ray - 11/15/19 - Procedure: XRAY Chest 1v Indication: Cough Technique: One view of the chest Comparison: 11/13/2019 Findings: Again demonstrated is bilateral basilar atelectasis versus scarring. The lungs and pleural spaces are otherwise clear. The heart size is normal. Interim placement right arm PICC. Impression: No acute process Laboratory Tests Test 11/20/19 23:30 Urine Color Yellow Urine Appearance Clear Urine pH 6 (4.5-8.0) Urine Specific [place] 1.020 (1.005-1.035) Urine Protein 2+ (NEGATIVE) H Urine Glucose (UA) Negative (NEGATIVE) Urine Ketones Negative (NEGATIVE) Urine Blood 1+ (NEGATIVE) H Urine Nitrite Negative (NEGATIVE) Urine Bilirubin Negative (NEGATIVE) Urine Urobilinogen Normal MG/DL (0.0-1.0) Urine Leukocyte Esterase 1+ (NEGATIVE) H Urine RBC 0-2 /HPF (0 - 0) H Urine WBC 0-2 /HPF (0 - 0) Urine Squamous Epithelial Cells None /LPF (NONE/OCC) Urine Bacteria None /HPF (NONE) Current Medications Medications (Trade) Dose Ordered Sig/Mya Route PRN Reason Start Time Stop Time Status Last Admin Dose Admin Acetaminophen (Tylenol) 650 mg Q4H PRN ORAL Mild Pain (Pain Scale 1-3) 11/05/19 14:00 11/30/19 13:59 11/20/19 12:03 Acetaminophen (Tylenol) 650 mg Q4H PRN ORAL Temp >100.5 11/05/19 16:00 12/05/19 15:59 11/11/19 16:39 Acetaminophen/ Hydrocodone Bitart ([place] 10/325) 1 tab Q4H PRN ORAL Severe Pain (Pain Scale 7-10) 11/15/19 19:45 11/22/19 19:44 11/21/19 08:51 Ascorbic Acid (Vitamin C) 500 mg DAILY ORAL 11/06/19 09:00 11/23/19 08:59 11/21/19 08:51 Baclofen (Lioresal) 10 mg THREE TIMES A DAY ORAL 11/05/19 18:00 11/22/19 17:59 11/21/19 08:51 Chlorhexidine Gluconate (Simran-Hex 2%) 1 applic DAILY@1999 TOPIC 11/13/19 20:00 02/11/20 19:59 11/20/19 21:00 Desmopressin Acetate (Ddavp) 1 spray DAILY NASAL 11/14/19 09:00 02/07/20 17:59 11/21/19 08:50 Dextrose (Dextrose 50%) 25 ml Q30M PRN IV Hypoglycemia 11/05/19 13:30 01/21/20 17:29 Dextrose (Dextrose 50%) 50 ml Q30M PRN IV Hypoglycemia 11/05/19 13:30 01/21/20 17:29 Diphenhydramine HCl (Benadryl) 25 mg Q6H PRN ORAL Itching/Pruritis 11/05/19 14:00 11/22/19 07:54 Docusate Sodium (Colace) 100 mg EVERY 12 HOURS ORAL 11/05/19 21:00 11/22/19 20:59 11/21/19 08:51 Famotidine (Pepcid) 20 mg DAILY ORAL 11/06/19 09:00 01/28/20 09:29 11/21/19 08:51 Ferrous Sulfate (Feosol) 325 mg DAILY ORAL 11/06/19 09:00 01/22/20 08:59 11/21/19 08:51 Fluconazole (Diflucan) 200 mg DAILY ORAL 11/17/19 09:00 11/24/19 08:59 11/21/19 08:51 Fludrocortisone Acetate (Florinef) 0.1 mg DAILY ORAL 11/15/19 09:00 12/15/19 08:59 11/21/19 08:51 Gabapentin (Neurontin) 400 mg Q8HR ORAL 11/05/19 14:00 12/03/19 21:59 11/21/19 05:13 Heparin Sodium (Porcine) (Heparin 5000 units/ml) 5,000 units EVERY 12 HOURS SUBQ 11/05/19 21:00 12/08/19 08:59 11/21/19 08:54 Magnesium Hydroxide (Mom) 30 ml HSPRN PRN ORAL Constipation 11/13/19 11:15 12/13/19 11:14 Meropenem 1 gm/ Sodium Chloride 55 ml @ 110 mls/hr Q8HR IVPB 11/21/19 00:00 11/26/19 00:00 11/21/19 05:13 Midodrine (Pro-Amatine) 10 mg EVERY 8 HOURS ORAL 11/05/19 14:00 01/21/20 17:59 11/21/19 05:13 Ondansetron HCl (Zofran) 4 mg Q6H PRN IVP Nausea & Vomiting 11/05/19 14:00 11/22/19 07:57 Sodium Hypochlorite (Dakin's Quarter Strength) 1 applic DAILY TOPIC 11/06/19 09:00 11/24/19 08:59 11/21/19 08:50 Sodium Chloride (NaCl) 1 gm THREE TIMES A DAY ORAL 11/09/19 13:00 12/09/19 12:59 11/21/19 08:51 Vancomycin HCl (Vanco pharmacy to dose) 1 ea DAILY PRN MISC Per rx protocol 11/20/19 20:30 12/20/19 20:29 Vancomycin HCl 750 mg/Sodium Chloride 275 ml @ 183.333 mls/hr Q12H IVPB 11/21/19 10:00 11/26/19 09:59 11/21/19 09:56 Zinc Sulfate (Zinc Sulfate) 220 mg DAILY ORAL 11/06/19 09:00 01/22/20 08:59 11/21/19 08:51 Sharif Painting MD Nov 21, 2019 12:49
--- NOTE | 2019-11-21 13:35 | Diagnostic Imaging Report ---
Indication: Shortness of breath Technique: One view of the chest Comparison: 11/15/2019 Findings: Previously demonstrated basilar atelectatic changes have cleared. Lungs and pleural spaces are currently clear. The heart size is normal. There is a right arm PICC again demonstrated Impression: No acute process
[2019-11-21 16:00] VITALS: BP 111/83
[2019-11-21 20:00] VITALS: BP 99/59
[2019-11-21] MEDS: Dyna-Hex 2% Top Sol 2oz TOPIC SCH (20:13)
[2019-11-22] VITALS: BP 103/60
[2019-11-22] MEDS: HYDROcodone/Acetamin 10/325 tab ORAL PRN ×3 (00:13→16:27)
[2019-11-22 04:00] VITALS: BP 100/55
[2019-11-22] MEDS: Meropenem 1 GM in NS 55 ML IVPB SCH ×3 (05:11→21:21)
[2019-11-22] MEDS: Midodrine 10mg tab ORAL SCH ×3 (05:12→21:21)
--- NOTE | 2019-11-22 07:38 | Hematology/Onc Progress Note ---
Assessment/Plan Assessment/Plan Assessment/recs # Anemia rule out gi bleed, as well as iron deficiency --> hgb 8.2-->7.2-->7.1->6.9-->8.6-->8.3-->9.3-->8.3-->9.3--.9.2->8.7 --> anemia panel ordered--> cw acd --> occult blood pending-->neg --> gi eval prn --> transfuse as needed --> transfuse 2 units 10/27 --> po iron to continue # Coagulopathy with elev ptt/inr --> vitk and ffp as needed --> no bleeding noted at this time # Thrombocytosis likely reactive process --> plt 398-->608-->605 --> abx as needed # Sepsis due to uti, with Hypotension likely due to septic shock. Was diuresing heavily at 300 mL an hour. --> Continue on midodrine and dopamine. --> ABX vancomycin and meropenem and amikacin-->christel/vanc/difluc --> before requires pressors --> as per cards # Bradycardia. --> per cards # Paraplegia. # Decubitus ulcers with sacral decubitus. # Dvt heparin sq Appreciate consultation and dw RN Subjective HEENT: Denies: no symptoms, eye pain, blurred vision, tearing, double vision, ear pain, ear discharge, nose pain, nose congestion, throat pain, throat swelling, mouth pain, mouth swelling, other Cardiovascular: Denies: no symptoms, chest pain, edema, irregular heart rate, lightheadedness, palpitations, syncope, other Respiratory: Denies: no symptoms, cough, shortness of breath, SOB with excertion, SOB at rest, sputum, wheezing, other Gastrointestinal/Abdominal: Denies: no symptoms, abdomen distended, abdominal pain, black stools, tarry stools, blood in stool, constipated, diarrhea, difficulty swallowing, nausea, poor appetite, poor fluid intake, rectal bleeding , vomiting, other Neurologic/Psychiatric: Denies: no symptoms, anxiety, depressed, emotional problems, headache, numbness, paresthesia, pre-existing deficit, seizure, tingling, tremors, weakness, other Endocrine: Denies: no symptoms, excessive sweating, flushing, intolerance to cold, intolerance to heat, increased hunger, increased thirst, increased urine, unexplained weight gain, unexplained weight loss, other Allergies: Coded Allergies: No Known Allergies (Unverified , 08/15/19) Subjective 10/27 labs again refused this am, yesterday was low, chandrakant rn in icu 10/28 remains in icu, for 2units prbc this am, chandrakant rn, no other events 10/29 s/p prbc, tolerated it well, no bleeding, on 1mcg levo, in icu 10/30 on abx, on levo and overnight no other events, 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\ 10/31 wounds improved, labs noted, no bleeding, hgb lower, refusing care/wound care 11/01 labs noted, no bleeding, no hematochezia, no hemoptysis, cbc ordered 11/02 meds reviewed, labs noted, no bleeding, chandrakant rn, no major changes, hgb 8.3 11/04 labs have been noted, no bleeding, meds reviewed, no hemolysis 11/05 functional colostomy llq, no bleeding, cbc is pending for am 11/06 labs have been refused, hgb 8.3, no bleeding, wbc is higher in am 11/07 labs have initially been refused, no bleeding in am, wbc 13, on abx 11/08 labs reviewed, no bleeding, chandrakant [place], cbc is pending for am 11/09 is on vanc/difl/christel, no other changes, cbc and bmp are noted 11/11 has been asymptomatic, eating breakfast, hgb 9.3, on abx 11/12 labs are noted, no bleeding, chandrakant [place], no major changes, abx 11/13 is currently on christel and vanc, chandrakant [place], no major bleeding, on hep sq 11/14 labs are noted, does not want to be changed currently, cbc/bmp ordered 11/15 labs reviewed, c/o pain at picc line, no bleeding, meds noted, hgb 8.7 11/16 labs are noted, has been cleared, for dc planning to snf 11/[address], no bleeding, meds noted, continues to be on heparin sq 11/19 labs noted, no bleeding, comfortable, cbc is ntoed and bmp for am labs 11/[address], with dressing change as needed, meds noted, labs reviewed 11/[address], is on vanc/christel seen by id, no major changes Objective Objective Current Medications Medications (Trade) Dose Ordered Sig/Mya Route PRN Reason Start Time Stop Time Status Last Admin Dose Admin Acetaminophen (Tylenol) 650 mg Q4H PRN ORAL Mild Pain (Pain Scale 1-3) 11/05/19 14:00 11/30/19 13:59 11/21/19 20:14 Acetaminophen (Tylenol) 650 mg Q4H PRN ORAL Temp >100.5 11/05/19 16:00 12/05/19 15:59 11/11/19 16:39 Acetaminophen/ Hydrocodone Bitart ([place] 10/325) 1 tab Q4H PRN ORAL Severe Pain (Pain Scale 7-10) 11/15/19 19:45 11/22/19 19:44 11/22/19 00:13 Ascorbic Acid (Vitamin C) 500 mg DAILY ORAL 11/06/19 09:00 11/23/19 08:59 11/21/19 08:51 Baclofen (Lioresal) 10 mg THREE TIMES A DAY ORAL 11/05/19 18:00 11/22/19 17:59 11/21/19 17:01 Chlorhexidine Gluconate (Simran-Hex 2%) 1 applic DAILY@1999 TOPIC 11/13/19 20:00 02/11/20 19:59 11/21/19 20:13 Desmopressin Acetate (Ddavp) 1 spray DAILY NASAL 11/14/19 09:00 02/07/20 17:59 11/21/19 08:50 Dextrose (Dextrose 50%) 25 ml Q30M PRN IV Hypoglycemia 11/05/19 13:30 01/21/20 17:29 Dextrose (Dextrose 50%) 50 ml Q30M PRN IV Hypoglycemia 11/05/19 13:30 01/21/20 17:29 Diphenhydramine HCl (Benadryl) 25 mg Q6H PRN ORAL Itching/Pruritis 11/05/19 14:00 11/22/19 07:54 Docusate Sodium (Colace) 100 mg EVERY 12 HOURS ORAL 11/05/19 21:00 11/22/19 20:59 11/21/19 08:51 Famotidine (Pepcid) 20 mg DAILY ORAL 11/06/19 09:00 01/28/20 09:29 11/21/19 08:51 Ferrous Sulfate (Feosol) 325 mg DAILY ORAL 11/06/19 09:00 01/22/20 08:59 11/21/19 08:51 Fludrocortisone Acetate (Florinef) 0.1 mg DAILY ORAL 11/15/19 09:00 12/15/19 08:59 11/21/19 08:51 Gabapentin (Neurontin) 400 mg Q8HR ORAL 11/05/19 14:00 12/03/19 21:59 11/22/19 05:11 Heparin Sodium (Porcine) (Heparin 5000 units/ml) 5,000 units EVERY 12 HOURS SUBQ 11/05/19 21:00 12/08/19 08:59 11/21/19 08:54 Magnesium Hydroxide (Mom) 30 ml HSPRN PRN ORAL Constipation 11/13/19 11:15 12/13/19 11:14 Meropenem 1 gm/ Sodium Chloride 55 ml @ 110 mls/hr Q8HR IVPB 11/21/19 00:00 11/26/19 00:00 11/22/19 05:11 Midodrine (Pro-Amatine) 10 mg EVERY 8 HOURS ORAL 11/05/19 14:00 01/21/20 17:59 11/22/19 05:12 Ondansetron HCl (Zofran) 4 mg Q6H PRN IVP Nausea & Vomiting 11/05/19 14:00 11/22/19 07:57 Sodium Hypochlorite (Dakin's Quarter Strength) 1 applic DAILY TOPIC 11/06/19 09:00 11/24/19 08:59 11/21/19 08:50 Sodium Chloride (NaCl) 1 gm THREE TIMES A DAY ORAL 11/09/19 13:00 12/09/19 12:59 11/21/19 17:01 Vancomycin HCl (Vanco pharmacy to dose) 1 ea DAILY PRN MISC Per rx protocol 11/20/19 20:30 12/20/19 20:29 Vancomycin HCl 750 mg/Sodium Chloride 275 ml @ 183.333 mls/hr Q12H IVPB 11/21/19 10:00 11/26/19 09:59 11/21/19 21:08 Zinc Sulfate (Zinc Sulfate) 220 mg DAILY ORAL 11/06/19 09:00 01/22/20 08:59 11/21/19 08:51 Last 24 Hour Vital Signs Date Time Temp Pulse Resp B/P (MAP) Pulse Ox O2 Delivery O2 Flow Rate FiO2 11/22/19 04:00 99.8 87 19 100/55 (70) 98 11/22/19 00:43 98.3 11/22/19 00:00 99.8 74 19 103/60 (74) 97 11/21/19 21:00 Room Air 11/21/19 20:44 98.3 11/21/19 20:00 99.9 87 19 99/59 (72) 96 11/21/19 16:00 98.3 90 19 111/83 (92) 98 11/21/19 12:00 97.9 60 18 100/59 (73) 99 11/21/19 09:00 Room Air 11/21/19 08:00 98.0 73 18 114/75 (88) 99 11/21/19 04:00 97.7 70 18 113/70 (84) 99 11/21/19 00:00 98.2 58 18 103/59 (74) 99 11/20/19 21:00 Room Air 11/20/19 20:00 101.7 96 20 85/50 (62) 94 11/20/19 16:00 98.3 90 19 132/83 (99) 98 11/20/19 12:00 98.1 90 19 120/79 (93) 98 11/20/19 09:00 Room Air 11/20/19 08:00 98.4 98 20 139/87 (104) 98 Intake and Output 11/21/19 11/22/19 19:00 07:00 Intake Total 600 ml 836.666 ml Output Total 700 ml 600 ml Balance -100 ml 236.666 ml Intake Oral 600 ml 250 ml IV Total 586.666 ml Output Urine Total 700 ml 600 ml # Bowel Movements 1 Labs Test 11/20/19 23:30 Urine Color Yellow Urine Appearance Clear Urine pH 6 (4.5-8.0) Urine Specific [place] 1.020 (1.005-1.035) Urine Protein 2+ (NEGATIVE) Urine Glucose (UA) Negative (NEGATIVE) Urine Ketones Negative (NEGATIVE) Urine Blood 1+ (NEGATIVE) Urine Nitrite Negative (NEGATIVE) Urine Bilirubin Negative (NEGATIVE) Urine Urobilinogen Normal MG/DL (0.0-1.0) Urine Leukocyte Esterase 1+ (NEGATIVE) Urine RBC 0-2 /HPF (0 - 0) Urine WBC 0-2 /HPF (0 - 0) Urine Squamous Epithelial Cells None /LPF (NONE/OCC) Urine Bacteria None /HPF (NONE) Height (Feet): 5 Height (Inches): 7.00 Weight (Pounds): 114 Objective Physical Exam General Appearance: lethargic Lines, tubes and drains: peripheral, central line HEENT: normocephalic Neck: non-tender, normal alignment Respiratory/Chest: lungs clear Cardiovascular/Chest: normal peripheral pulses, normal rate, regular rhythm Abdomen: normal bowel sounds, non tender ++ llq colostomy Martínez Capps MD Nov 22, 2019 07:38
[2019-11-22 08:00] VITALS: BP 89/52
--- NOTE | 2019-11-22 08:09 | General Progress Note ---
Assessment/Plan Status: stable Assessment/Plan: 59 year old man who presents from [facility] with weakness, encephalopathy, concern for septic shock, possible from UTI. 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 -Evaluated by endocrine for adrenal insufficiency -AM cortisol normal however patient continues to have labile BP and hyponatremia - Appreciate Nephrology consult - Appreciate Endocrine consult - Will continue Florinef, Salt Tab, and DDAVP - Continue Midodrine given labile BP - CT Brain without masses noted, will defer MRI - Refusing labs periodically #Fever #Septic shock- resolved #Proteus UTI #Acute metabolic encephalopathy -improving #Paraplegia #Sacral pressure ulcer, present on admit - Periods of hypotension and fever through hospitalization, VSS now - BC & CXR wnl - Covid 19 - negative - S/p vancomycin, cefepime, and flagyl - Spoke with surgery, sacral pressure ulcer does not appear to be infected - Local wound care and offloading - Fever 101.7 on 10/20, repeat BCx ordered however pt refused labs - 10/20 CXR w/no acute process - Appreciate ID consult - CT abd/pel w/ and w/o contrast ordered and pending #Fungal UTI - resolved - Patient is high risk for fungemia - Diflucan 11/16 - 11/23 -Appreciate ID Consult #Sinus Bradycardia - resolved -continue telemetry -EP following #Hyponatremia #Hypokalemia -improving -Intermittently refusing labs -Replete when necessary -On DDAVP intranasal #Anemia, acute on chronic -2 units RBC 10/28 -Hematology following, no signs of overt bleeding - Continue Iron tab - Keep Hb >7 #Chronic 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 Appreciate referrals placed by CM. I spent 36 minutes on this patient's care today, and 27 mins was dedicated to counseling and care coordination. Discussed with all consultants, RN and CM. Time of note doesn't reflect time of encounter. Subjective Allergies: Coded Allergies: No Known Allergies (Unverified , 08/15/19) Subjective No acute events overnight. Pt notes mild pain in feet b/l. Pt cont to refuse labs/bloodwork, educated pt on medical compliance again and pt cont. to express he does not want any blood draws at this time. Objective Last 24 Hour Vital Signs Date Time Temp Pulse Resp B/P (MAP) Pulse Ox O2 Delivery O2 Flow Rate FiO2 11/22/19 04:00 99.8 87 19 100/55 (70) 98 11/22/19 00:43 98.3 11/22/19 00:00 99.8 74 19 103/60 (74) 97 11/21/19 21:00 Room Air 11/21/19 20:44 98.3 11/21/19 20:00 99.9 87 19 99/59 (72) 96 11/21/19 16:00 98.3 90 19 111/83 (92) 98 11/21/19 12:00 97.9 60 18 100/59 (73) 99 11/21/19 09:00 Room Air Intake and Output 11/21/19 11/22/19 19:00 07:00 Intake Total 600 ml 836.666 ml Output Total 700 ml 600 ml Balance -100 ml 236.666 ml Intake Oral 600 ml 250 ml IV Total 586.666 ml Output Urine Total 700 ml 600 ml # Bowel Movements 1 Height (Feet): 5 Height (Inches): 7.00 Weight (Pounds): 114 Objective General Appearance: no apparent distress, alert, sitting up in bed comfortably HEENT: NCAT, EOMI, MMM Neck: non-tender, supple Cardiovascular: normal rate, regular rhythm Respiratory/Chest: chest wall non-tender, normal breath sounds Abdomen: normal bowel sounds, non tender, soft, Colostomy in place w/brown stool c/d/i, PEG c/d/i Extremities: contractures in b/l lower extremity Neurologic: in home tutor II-XII grossly normal Skin: warm/dry Jerry Razo M.D. Nov 22, 2019 08:09
--- NOTE | 2019-11-22 09:06 | Nephrology Progress Note ---
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 - improved with desmporessin #Shock #UTI # infected sacral pressure ulcer #Acute metabolic encephalopathy #Paraplegia #Sacral pressure ulcer #Hypokalemia #Anemia - continue florinef 0.1mg daily -Continue desmopressin nasal - continue salt tabs 1g TID - continue midodrine 10 TID - endocrine eval noted - r/o adrenal insuffiency - antibiotics per ID - monitor lytes - avoid nephrotoxins - daily weights - strict I&Os time spent 40 min- greater than 50% on care coordination and counseling Subjective ROS Limited/Unobtainable: Yes Subjective UOP 1300 yesteday refusing lab added florinef 0.1mg daily Bp soft on nasal desmopressin on salt tabs Objective Objective Last 24 Hour Vital Signs Date Time Temp Pulse Resp B/P (MAP) Pulse Ox O2 Delivery O2 Flow Rate FiO2 11/22/19 08:00 99.1 79 17 89/52 (64) 94 11/22/19 04:00 99.8 87 19 100/55 (70) 98 11/22/19 00:43 98.3 11/22/19 00:00 99.8 74 19 103/60 (74) 97 11/21/19 21:00 Room Air 11/21/19 20:44 98.3 11/21/19 20:00 99.9 87 19 99/59 (72) 96 11/21/19 16:00 98.3 90 19 111/83 (92) 98 11/21/19 12:00 97.9 60 18 100/59 (73) 99 Intake and Output 11/21/19 11/22/19 19:00 07:00 Intake Total 600 ml 836.666 ml Output Total 700 ml 600 ml Balance -100 ml 236.666 ml Intake Oral 600 ml 250 ml IV Total 586.666 ml Output Urine Total 700 ml 600 ml # Bowel Movements 1 Height (Feet): 5 Height (Inches): 7.00 Weight (Pounds): 114 Sienna Georges M.D. Nov 22, 2019 09:06
[2019-11-22] MEDS: Zinc Sulfate 220mg ORAL SCH (09:30)
[2019-11-22] MEDS: Dakin's 0.125% Soln (Quarter Strength) 16oz TOPIC SCH (09:30)
[2019-11-22] MEDS: Sodium Chloride 1gm Tab ORAL SCH ×3 (09:31→17:31)
[2019-11-22] MEDS: Docusate 100mg cap ORAL SCH (09:31)
[2019-11-22] MEDS: Ascorbic Acid 500mg tab ORAL SCH (09:31)
[2019-11-22] MEDS: Heparin 5000 units/ml inj SUBQ SCH ×2 (09:32→21:00)
[2019-11-22] MEDS: Desmopressin Nasal 5ml NASAL SCH (09:40)
[2019-11-22] MEDS: Vancomycin 750mg/NS 275ml IVPB SCH ×2 (10:22)
[2019-11-22 12:00] VITALS: BP 98/61
--- NOTE | 2019-11-22 15:20 | Surgery Progress Note ---
Surgery Progress Note Subjective Symptoms: improved, tolerating diet, voiding well, passing flatus, BM Objective Last 24 Hour Vital Signs Date Time Temp Pulse Resp B/P (MAP) Pulse Ox O2 Delivery O2 Flow Rate FiO2 11/22/19 12:00 98.9 76 18 98/61 (73) 95 11/22/19 09:00 Room Air 11/22/19 08:00 99.1 79 17 89/52 (64) 94 11/22/19 04:00 99.8 87 19 100/55 (70) 98 11/22/19 00:43 98.3 11/22/19 00:00 99.8 74 19 103/60 (74) 97 11/21/19 21:00 Room Air 11/21/19 20:44 98.3 11/21/19 20:00 99.9 87 19 99/59 (72) 96 11/21/19 16:00 98.3 90 19 111/83 (92) 98 I&O Intake and Output 11/21/19 11/22/19 19:00 07:00 Intake Total 600 ml 836.666 ml Output Total 700 ml 600 ml Balance -100 ml 236.666 ml Intake Oral 600 ml 250 ml IV Total 586.666 ml Output Urine Total 700 ml 600 ml # Bowel Movements 1 Dressing: saturated Wound: clean Cardiovascular: RSR Respiratory: clear, decreased breath sounds Abdomen: soft, non-tender, present bowel sounds Extremities: no edema, no tenderness, no cyanosis Plan Problems: (1) Abdominal distension Assessment & Plan: abd distention soft non tender ostomy viable and reduced KUB ordered pending results improved comfortable no complaints okay for diet s tolerated d/c planning much improved There is an inferior vena cava filter in place. Bowel gas pattern is unremarkable. Considerable stool is seen in the transverse and distal colon. There is extensive pelvic deformity, with loss of the left femoral head, chronic dislocation of the left femur, and extensive pelvic deformity, particularly on the left. [place] project over the upper pelvis Impression: Possible constipation. pending placement Nonobstructed bowel gas pattern. Moderate fecal retention of the ascending colon and sigmoid colon. The degree of stool burden has increased from October 25, 2019. IVC filter, incidentally noted. Partial subluxation of the right hip. Osteotomy of the proximal left femur with deformity of the bilateral pubic rami and left acetabulum, unchanged. 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 [place] Shaped, Full Thickness Sacral Pressure Injury which extends into L ischium. (L)15.4cm x (W)18cm x (D)2.4cm, Undermining clockwise 10-2 by 7.7cm @ 11o'clock. Base of wound is moist,pink with scattered slough at base of wound. Bone is palpable at the Base. No odor or exudate noted. Scattered partial thickness wounds and Serous filled blisters noted to R trochanteric /R Hip areas. Historical scar noted to L groin, L Hip L Buttocks. Bony protrusion noted at L Hip. Full thickness Pressure Injury R Ischium(L)5.4cm x(W)6.9cm x (D)1.8cm, Undermining clockwise 1-4 by 2.7cm @2o'clock, Tunneling@7o'clock 2.9cm. Base of wound is moist pink with scattered slough. Scattered slough noted along borders. NO odor or exudate noted. Stable dry eschar noted to medial R knee 0.7cm x (W)0.4cm. Periwound is erythematous and indurated. No elevation in skin temp noted. L heel has shaved appearance secondary to Hx of Pressure Injuries. Base of heel is pale pink. Bone is palpable. Small area of slough noted within compromised area(L)0.6cm x (W)0.8cm. L Heel Also has shaved appearance with hypertrophic scarring. Base of compromised area is pale pink, Bone is palpable, with scattered loose, dry and scaly skin. Tx.Plan: Cleanse Sacral Wound and R Ischial wounds with Dakin's 0.125% gian. Loosely pack wounds with Hydrogel impregnated Kerlix. Apply Moisture Barrier Paste periwound. Cover with ABD Pads secure with Tegaderm drsg.Daily and prn. Apply Triad Paste to R Hip/R trochanteric areas.Cover with Optifoam drsg. Change every 7 days and prn. Apply Betadine to Medial R Knee. Cover with Optifoam drsg. Change every 7 days and prn. Apply Betadine to R and L Heels. Cover each Heel with Optifoam drsgs. Change every 7 days and prn. Cover Bony Prominences as needed with Optifoam drsgs. Reposition at least every [address] Pillow between knees. Off-load heels with pillow. APM/SUMI Mattress overlay DAILY ESTIMATED NEEDS: Needs based on Advanced wounds, wt loss/ 40.18kg 35-40 kcals/kg 2641-3741 total kcals 1.5-2.0 g protein/kg 60-80 g total protein 25-35ml/kcal mL/kg 5852-2708 total fluid mLs NUTRITION DIAGNOSIS: Increased kcal/prot/micronutrients needs R/T wound healing and underweight status as evidenced by pt admitted w/ multiple advanced wounds, refer to WC jair, pt now w/ further 3% unfavorable wt loss, currently BMI underweight per guidelines, @62% of [place] Body Weight. 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
--- NOTE | 2019-11-22 15:34 | Infectious Diseases Prog Note ---
Assessment/Plan Assessment/Plan ASSESSMENT AND PLAN: 1. hx sepsis/shock, hx proteus uti, hx esbl e.coli uti, possible aspiration pna/ hcap vs cap, sacral wound - ? infected, mrsa and vre colonization fevers, leukocytosis - urine culture with gram neg, ? other source, blood cultures negative to date, chest x-ray - negative - meropenem - day # 3, discontinue vancomycin - f/u on CT abdomen and pelvis, cultures, labs - wound care per surgery - s/p full abx course 2. ICU care. 3. Sacral wound -wound mostly clean, management per surgery 4. Ostomy malfunction - per surgery 5. Hypertension. 6. Paraplegia. 7. Anemia. 8. History of decubitus ulcer, rule out infection. Infectious diseases is following. The patient on antibiotics. 9. Hypertension treatment per primary care team. 10. Continue treatment per primary consultants. 11. No known drug allergies. 12. Social history is negative. 13. Family history is noncontributory. 14. MAR was noted. 15. Case discussed with RN. Subjective Constitutional: Reports: fever - less HEENT: Denies: congestion Respiratory: Denies: shortness of breath Cardiovascular: Denies: chest pain Gastrointestinal/Abdominal: Denies: nausea, vomiting, diarrhea Genitourinary: Reports: other - = donohue Neurologic: Denies: headache Psychiatric: Denies: depression Skin: Denies: rash Hematologic: Denies: bleeding Musculoskeletal: Denies: pain Allergies: Coded Allergies: No Known Allergies (Unverified , 08/15/19) Objective Last 24 Hour Vital Signs Date Time Temp Pulse Resp B/P (MAP) Pulse Ox O2 Delivery O2 Flow Rate FiO2 11/22/19 12:00 98.9 76 18 98/61 (73) 95 11/22/19 09:00 Room Air 11/22/19 08:00 99.1 79 17 89/52 (64) 94 11/22/19 04:00 99.8 87 19 100/55 (70) 98 11/22/19 00:43 98.3 11/22/19 00:00 99.8 74 19 103/60 (74) 97 11/21/19 21:00 Room Air 11/21/19 20:44 98.3 11/21/19 20:00 99.9 87 19 99/59 (72) 96 11/21/19 16:00 98.3 90 19 111/83 (92) 98 Height (Feet): 5 Height (Inches): 7.00 Weight (Pounds): 114 General Appearance: no acute distress HEENT: normocephalic, atraumatic, anicteric, mucous membranes moist Respiratory/Chest: lungs clear, normal breath sounds, no respiratory distress, no accessory muscle use Cardiovascular: normal rate, regular rhythm, no gallop/murmur, no JVD Abdomen: normal bowel sounds, soft, non tender, no organomegaly, non distended Genitourinary: other - + donohue - urine clearer Extremities: no cyanosis Skin: no rash Neurologic/Psychiatric: certified medical aide II-XII grossly normal, alert, oriented x 3, responsive Lymphatic: no neck adenopathy Musculoskeletal: no effusion Chest x-ray - 10/25/19 - Procedure: XRAY Chest 1v Indication: Shortness of breath Technique: One view of the chest Comparison: 10/23/2019 Findings: There are bilateral basilar infiltrates, which appear new or increased since prior study. There is some atelectasis at the left lung base as well. Right jugular central venous catheter remains. The heart size is normal. Impression: New/increased bilateral basilar infiltrates, since prior study 2019 Chest x-ray - 10/27/19 - Procedure: XRAY Chest 1v Indication: Shortness of breath Technique: One view of the chest Comparison: 10/25/2019 Findings: There is atelectasis possibly some focal consolidation at the right lung base. Atelectatic changes previously demonstrated at the left lung base have largely cleared. Right jugular central venous catheter remains. The heart size is normal. Impression: Improving left basilar atelectasis. Otherwise little change agent 2 days findings as noted Chest x-ray - 10/29/19 - FINDINGS: Lungs: Persistent subsegmental atelectasis in bilateral lower lungs, not significant changed compared to the prior exam. No new consolidation is seen. Pleural space: Unremarkable. The costophrenic angles are sharp. No visible pneumothorax. Heart: Unremarkable. No cardiomegaly. Mediastinum: Unremarkable. Bones/joints: Unremarkable. Vasculature: Mild atherosclerotic calcifications are noted within the aortic arch. Tubes, lines and devices: Stable positioning of a right IJ central venous catheter with the tip in the SVC. Telemetry leads overlie the thorax. IMPRESSION: Persistent subsegmental atelectasis in bilateral lower lungs, not significantly changed compared to the prior exam. Chest x-rasy - 11/03/19 - Procedure: XRAY Chest 1v Indication: Cough Technique: One view of the chest Comparison: 10/29/2019 Findings: There are increased atelectatic changes at the lung bases. Interim removal of previously demonstrated central venous catheter. The pleural spaces are clear. The heart size is normal. Impression: Increasing bilateral basilar atelectasis Interim central venous catheter removal. Chest x-ray - 11/07/19 - Procedure: XRAY Chest 1v Indication: Shortness of breath Technique: One view of the chest Comparison: 11/03/2019 Findings: Bilateral basilar atelectatic changes appear similar to the previous exam. There may be some patchy left perihilar and bilateral peripheral consolidation. The heart size is normal. Impression: New or increased faint patchy peripheral and left perihilar consolidative opacities, possibly reflecting multifocal pneumonia, since prior study 03/04/2019 Persistent bilateral basilar atelectatic changes Chest x-ray - 11/09/19 - Procedure: XRAY Chest 1v Indication: Cough Technique: One view of the chest Comparison: 11/07/2019 Findings: There is improved aeration of the lung bases, although some atelectasis persists bilaterally. No new infiltrates. The pleural spaces are clear. The heart size is normal. Impression: Improved aeration with decreased basilar atelectasis Chest x-ray - 11/14/19 - Procedure: XRAY Chest 1v Indication: Cough Technique: One view of the chest Comparison: 11/09/2019 Findings: Bilateral basilar atelectasis has increased. No new infiltrates. The pleural spaces remain clear. The heart size is normal. Impression: Increased bilateral basilar atelectasis, since prior study 11/09/2019 Chest x-ray - 11/15/19 - Procedure: XRAY Chest 1v Indication: Cough Technique: One view of the chest Comparison: 11/13/2019 Findings: Again demonstrated is bilateral basilar atelectasis versus scarring. The lungs and pleural spaces are otherwise clear. The heart size is normal. Interim placement right arm PICC. Impression: No acute process Chest x-ray - 11/21/19 - Procedure: XRAY Chest 1v Indication: Shortness of breath Technique: One view of the chest Comparison: 11/15/2019 Findings: Previously demonstrated basilar atelectatic changes have cleared. Lungs and pleural spaces are currently clear. The heart size is normal. There is a right arm PICC again demonstrated Impression: No acute process Microbiology Date/Time Source Procedure Growth Status 11/20/19 23:30 Indwelling Cath Urine Culture - Preliminary Gram Negative Bacillus 1 Resulted Labs Test 11/20/19 23:30 Urine Color Yellow Urine Appearance Clear Urine pH 6 (4.5-8.0) Urine Specific [place] 1.020 (1.005-1.035) Urine Protein 2+ (NEGATIVE) Urine Glucose (UA) Negative (NEGATIVE) Urine Ketones Negative (NEGATIVE) Urine Blood 1+ (NEGATIVE) Urine Nitrite Negative (NEGATIVE) Urine Bilirubin Negative (NEGATIVE) Urine Urobilinogen Normal MG/DL (0.0-1.0) Urine Leukocyte Esterase 1+ (NEGATIVE) Urine RBC 0-2 /HPF (0 - 0) Urine WBC 0-2 /HPF (0 - 0) Urine Squamous Epithelial Cells None /LPF (NONE/OCC) Urine Bacteria None /HPF (NONE) wbc - 7.1 hgb - 8.7 cr - 0.6 Current Medications Medications (Trade) Dose Ordered Sig/Mya Route PRN Reason Start Time Stop Time Status Last Admin Dose Admin Acetaminophen (Tylenol) 650 mg Q4H PRN ORAL Mild Pain (Pain Scale 1-3) 11/05/19 14:00 11/30/19 13:59 11/21/19 20:14 Acetaminophen (Tylenol) 650 mg Q4H PRN ORAL Temp >100.5 11/05/19 16:00 12/05/19 15:59 11/11/19 16:39 Acetaminophen/ Hydrocodone Bitart ([place] 10/325) 1 tab Q4H PRN ORAL Severe Pain (Pain Scale 7-10) 11/15/19 19:45 11/22/19 19:44 11/22/19 09:40 Ascorbic Acid (Vitamin C) 500 mg DAILY ORAL 11/06/19 09:00 11/23/19 08:59 11/22/19 09:31 Baclofen (Lioresal) 10 mg THREE TIMES A DAY ORAL 11/05/19 18:00 11/22/19 17:59 11/22/19 12:52 Chlorhexidine Gluconate (Simran-Hex 2%) 1 applic DAILY@1999 TOPIC 11/13/19 20:00 02/11/20 19:59 11/21/19 20:13 Desmopressin Acetate (Ddavp) 1 spray DAILY NASAL 11/14/19 09:00 02/07/20 17:59 11/22/19 09:40 Dextrose (Dextrose 50%) 25 ml Q30M PRN IV Hypoglycemia 11/05/19 13:30 01/21/20 17:29 Dextrose (Dextrose 50%) 50 ml Q30M PRN IV Hypoglycemia 11/05/19 13:30 01/21/20 17:29 Docusate Sodium (Colace) 100 mg EVERY 12 HOURS ORAL 11/05/19 21:00 11/22/19 20:59 11/22/19 09:31 Famotidine (Pepcid) 20 mg DAILY ORAL 11/06/19 09:00 01/28/20 09:29 11/22/19 09:31 Ferrous Sulfate (Feosol) 325 mg DAILY ORAL 11/06/19 09:00 01/22/20 08:59 11/22/19 09:30 Fludrocortisone Acetate (Florinef) 0.1 mg DAILY ORAL 11/15/19 09:00 12/15/19 08:59 11/22/19 09:31 Gabapentin (Neurontin) 400 mg Q8HR ORAL 11/05/19 14:00 12/03/19 21:59 11/22/19 14:29 Heparin Sodium (Porcine) (Heparin 5000 units/ml) 5,000 units EVERY 12 HOURS SUBQ 11/05/19 21:00 12/08/19 08:59 11/22/19 09:32 Magnesium Hydroxide (Mom) 30 ml HSPRN PRN ORAL Constipation 11/13/19 11:15 12/13/19 11:14 Meropenem 1 gm/ Sodium Chloride 55 ml @ 110 mls/hr Q8HR IVPB 11/21/19 00:00 11/26/19 00:00 11/22/19 14:30 Midodrine (Pro-Amatine) 10 mg EVERY 8 HOURS ORAL 11/05/19 14:00 01/21/20 17:59 11/22/19 14:29 Sodium Hypochlorite (Dakin's Quarter Strength) 1 applic DAILY TOPIC 11/06/19 09:00 11/24/19 08:59 11/22/19 09:30 Sodium Chloride (NaCl) 1 gm THREE TIMES A DAY ORAL 11/09/19 13:00 12/09/19 12:59 11/22/19 12:52 Vancomycin HCl ([facility]anco pharmacy to dose) 1 ea DAILY PRN MISC Per rx protocol 11/20/19 20:30 12/20/19 20:29 Vancomycin HCl 750 mg/Sodium Chloride 275 ml @ 183.333 mls/hr Q12H IVPB 11/21/19 10:00 11/26/19 09:59 11/22/19 10:22 Zinc Sulfate (Zinc Sulfate) 220 mg DAILY ORAL 11/06/19 09:00 01/22/20 08:59 11/22/19 09:30 Sharif Painting MD Nov 22, 2019 15:34
[2019-11-22 16:00] VITALS: BP 100/59
--- NOTE | 2019-11-22 16:12 | Diagnostic Imaging Report ---
Clinical Indication: Abdominal pain Technique: No oral contrast utilized, per emergency room physician request IV administration nonionic contrast. Venous phase spiral acquisition obtained through the abdomen and pelvis. Multiplanar reconstructions were generated. Total dose length product 166 mGycm. CTDIvol(s) 3 mGy. Dose reduction achieved using automated exposure control Comparison: none Findings: Extensive decubitus change is seen in the buttocks in the retrococcygeal region. There is marked skin thickening as well as marked irregularity of the skin surface likely indicating ulceration. Gas bubbles are seen extending under the skin surface on the right there are also some deeper skin bubbles adjacent to the posterior aspect of the right iliac bone., indicating likely penetrating ulcer. A small amount of fluid is seen surrounding the gas bubbles but no zurdo collections to suggest abscess are demonstrated. There is extensive chronic appearing erosive change with bone loss involving the posterior iliac bones bilaterally and the posterior sacrum. The level of the bone loss is very uniform, and it is possible that some of this is due to postsurgical change rather than actual erosion. Some surgical ryan are seen within the second scan of the posterior lumbar region. There is also extensive chronic appearing erosive change of the bilateral ischia. 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 The margins of the proximal femur appear well-defined, so this is likely postsurgical. Areas of ossification lateral to the left iliac bone either represent residual bone fragments from the proximal femur or could represent heterotopic ossification. The residual left acetabulum is markedly dysplastic. There is what appears to be a diverting colostomy of the distal sigmoid in the left lower quadrant. There is distention of the rectum with feces, rectal diameter 70 mm. There is some thickening of the rectal wall. The appendix is not definitely visualized, but no findings to suggest acute appendicitis are evident. There is considerable stool throughout the colon. There appears to be rectal incontinence of stool despite the diverting colostomy. No evidence of diverticulosis or diverticulitis. No small bowel distention. No free or loculated intraperitoneal gas or fluid is evident. Distal esophagus, stomach, duodenum are unremarkable. There is an inferior vena cava filter which appears to be well positioned. The inferior vena cava appears to be patent. The liver demonstrates a subcentimeter low-attenuation lesion in segment 7, too small to characterize but most likely benign simple cyst. The gallbladder, bile ducts, pancreas, adrenals are unremarkable. The spleen is enlarged, measuring 13.4 cm long axis dimension. Right kidney is unremarkable. Left kidney demonstrates a subcentimeter low-attenuation lesion which is too small to characterize. No retroperitoneal or mesenteric mass or adenopathy. The bladder contains a Marcos catheter. Some calcifications are seen surrounding the Marcos balloon within the bladder. The bladder is nondistended. The included lung bases demonstrate posterior dependent pulmonary atelectatic changes and possibly some consolidation. Impression: Extensive decubitus changes, as described, with evidence of skin thickening, surface ulceration, deep ulceration, and likely prior skin grafting. There is also evidence of extensive bone loss. This may be due to erosive changes, postsurgical changes, or likely combination of both. No findings to suggest abscess Left lower quadrant diverting sigmoid colostomy. Considerable distal stool and evidence of rectal fecal impaction and incontinence, despite this. Rectal wall thickening could indicate stercoral proctitis Splenomegaly Inferior vena cava filter Marcos catheter and empty bladder. Some calcifications are seen surrounding the Marcos balloon Posterior pulmonary dependent atelectatic changes and possible consolidation Other findings as noted, including probable hepatic and renal cysts The CT scanner at [facility] is accredited by the [employer] and the scans are performed using protocols designed to limit radiation exposure to as low as reasonably achievable to attain images of sufficient resolution adequate for diagnostic evaluation.
--- NOTE | 2019-11-22 18:02 | Cardiac Electrophysiology PN ---
Assessment/Plan Assessment/Plan 1. S/P Septic shock. On Midodrine, iv fluids and antibiotic( Vano and meropenem) via PICC line. 2. Bradycardia. Resolved. 3. Paraplegia. 4. Urinary tract infection, 5. Decubitus ulcers with sacral decubitus. 6. S/P Ileostomy/ 7. Polyuria, DI. On NS, Salt tablets Placement pending Subjective Subjective Alert in NAD. Pending placement Objective Last 24 Hour Vital Signs Date Time Temp Pulse Resp B/P (MAP) Pulse Ox O2 Delivery O2 Flow Rate FiO2 11/22/19 16:00 98.2 66 17 100/59 (73) 100 11/22/19 12:00 98.9 76 18 98/61 (73) 95 11/22/19 09:00 Room Air 11/22/19 08:00 99.1 79 17 89/52 (64) 94 11/22/19 04:00 99.8 87 19 100/55 (70) 98 11/22/19 00:43 98.3 11/22/19 00:00 99.8 74 19 103/60 (74) 97 11/21/19 21:00 Room Air 11/21/19 20:44 98.3 11/21/19 20:00 99.9 87 19 99/59 (72) 96 Intake and Output 11/21/19 11/22/19 19:00 07:00 Intake Total 600 ml 836.666 ml Output Total 700 ml 600 ml Balance -100 ml 236.666 ml Intake Oral 600 ml 250 ml IV Total 586.666 ml Output Urine Total 700 ml 600 ml # Bowel Movements 1 Microbiology Date/Time Source Procedure Growth Status 11/20/19 23:30 Indwelling Cath Urine Culture - Preliminary Gram Negative Bacillus 1 Resulted Objective HEAD AND NECK: No JVD. LUNGS: Coarse rhonchi. CARDIOVASCULAR: Regular S1 and S2 with no gallop. ABDOMEN: Soft.S/P Ileostomy EXTREMITIES: No pitting edema, however, has pressure ulcers. Carloz Estes MD Nov 22, 2019 18:02
--- NOTE | 2019-11-22 18:56 | Pulmonology Progress Note ---
Subjective ROS Limited/Unobtainable: Yes Interval Events: no fever or leucocytosis Constitutional: Reports: fever - less HEENT: Repors: no symptoms Respiratory: Reports: no symptoms Cardiovascular: Reports: no symptoms Gastrointestinal/Abdominal: Denies: nausea, vomiting, diarrhea Genitourinary: Reports: no symptoms Psychiatric: Denies: depression Skin: Denies: rash Musculoskeletal: Denies: pain Allergies: Coded Allergies: No Known Allergies (Unverified , 08/15/19) All Systems: reviewed and negative except above Objective Last 24 Hour Vital Signs Date Time Temp Pulse Resp B/P (MAP) Pulse Ox O2 Delivery O2 Flow Rate FiO2 11/22/19 16:00 98.2 66 17 100/59 (73) 100 11/22/19 12:00 98.9 76 18 98/61 (73) 95 11/22/19 09:00 Room Air 11/22/19 08:00 99.1 79 17 89/52 (64) 94 11/22/19 04:00 99.8 87 19 100/55 (70) 98 11/22/19 00:43 98.3 11/22/19 00:00 99.8 74 19 103/60 (74) 97 11/21/19 21:00 Room Air 11/21/19 20:44 98.3 11/21/19 20:00 99.9 87 19 99/59 (72) 96 Intake and Output 11/21/19 11/22/19 19:00 07:00 Intake Total 600 ml 836.666 ml Output Total 700 ml 600 ml Balance -100 ml 236.666 ml Intake Oral 600 ml 250 ml IV Total 586.666 ml Output Urine Total 700 ml 600 ml # Bowel Movements 1 General Appearance: no acute distress HEENT: normocephalic Respiratory: chest wall non-tender, lungs clear Cardiovascular: normal peripheral pulses, regular rhythm Abdomen: normal bowel sounds Extremities: no cyanosis Microbiology Date/Time Source Procedure Growth Status 11/20/19 23:30 Indwelling Cath Urine Culture - Preliminary Gram Negative Bacillus 1 Resulted Current Medications Medications (Trade) Dose Ordered Sig/Mya Route PRN Reason Start Time Stop Time Status Last Admin Dose Admin Acetaminophen (Tylenol) 650 mg Q4H PRN ORAL Mild Pain (Pain Scale 1-3) 11/05/19 14:00 11/30/19 13:59 11/21/19 20:14 Acetaminophen (Tylenol) 650 mg Q4H PRN ORAL Temp >100.5 11/05/19 16:00 12/05/19 15:59 11/11/19 16:39 Acetaminophen/ Hydrocodone Bitart ([place] 10/325) 1 tab Q4H PRN ORAL Severe Pain (Pain Scale 7-10) 11/15/19 19:45 11/22/19 19:44 11/22/19 16:27 Ascorbic Acid (Vitamin C) 500 mg DAILY ORAL 11/06/19 09:00 11/23/19 08:59 11/22/19 09:31 Chlorhexidine Gluconate (Simran-Hex 2%) 1 applic DAILY@1999 TOPIC 11/13/19 20:00 02/11/20 19:59 11/21/19 20:13 Desmopressin Acetate (Ddavp) 1 spray DAILY NASAL 11/14/19 09:00 02/07/20 17:59 11/22/19 09:40 Dextrose (Dextrose 50%) 25 ml Q30M PRN IV Hypoglycemia 11/05/19 13:30 01/21/20 17:29 Dextrose (Dextrose 50%) 50 ml Q30M PRN IV Hypoglycemia 11/05/19 13:30 01/21/20 17:29 Docusate Sodium (Colace) 100 mg EVERY 12 HOURS ORAL 11/05/19 21:00 11/22/19 20:59 11/22/19 09:31 Famotidine (Pepcid) 20 mg DAILY ORAL 11/06/19 09:00 01/28/20 09:29 11/22/19 09:31 Ferrous Sulfate (Feosol) 325 mg DAILY ORAL 11/06/19 09:00 01/22/20 08:59 11/22/19 09:30 Fludrocortisone Acetate (Florinef) 0.1 mg DAILY ORAL 11/15/19 09:00 12/15/19 08:59 11/22/19 09:31 Gabapentin (Neurontin) 400 mg Q8HR ORAL 11/05/19 14:00 12/03/19 21:59 11/22/19 14:29 Heparin Sodium (Porcine) (Heparin 5000 units/ml) 5,000 units EVERY 12 HOURS SUBQ 11/05/19 21:00 12/08/19 08:59 11/22/19 09:32 Magnesium Hydroxide (Mom) 30 ml HSPRN PRN ORAL Constipation 11/13/19 11:15 12/13/19 11:14 Meropenem 1 gm/ Sodium Chloride 55 ml @ 110 mls/hr Q8HR IVPB 11/21/19 00:00 11/26/19 00:00 11/22/19 14:30 Midodrine (Pro-Amatine) 10 mg EVERY 8 HOURS ORAL 11/05/19 14:00 01/21/20 17:59 11/22/19 14:29 Sodium Hypochlorite (Dakin's Quarter Strength) 1 applic DAILY TOPIC 11/06/19 09:00 11/24/19 08:59 11/22/19 09:30 Sodium Chloride (NaCl) 1 gm THREE TIMES A DAY ORAL 11/09/19 13:00 12/09/19 12:59 11/22/19 17:31 Zinc Sulfate (Zinc Sulfate) 220 mg DAILY ORAL 11/06/19 09:00 01/22/20 08:59 11/22/19 09:30 Assessment/Plan Assessment/Plan IMPRESSION: 1. Septic shock. resolved 2. Complicated UTI with history of previous ESBL infection. 3. Paraplegia. 4. Sacral decubitus. 5. group home resident. DISCUSSION: DVT and GI prophylaxes. Continue Oxygen prn, doing well on room air at this time. DC planning Haily Monzon Omar Syed MD Nov 22, 2019 18:56
[2019-11-22] MEDS: Dyna-Hex 2% Top Sol 2oz TOPIC SCH (19:43)
[2019-11-22 20:00] VITALS: BP 113/63
[2019-11-23] VITALS: BP 99/58
[2019-11-23] MEDS: HYDROcodone/Acetamin 10/325 tab ORAL PRN ×5 (01:10→21:25)
[2019-11-23 04:00] VITALS: BP 98/56
[2019-11-23] MEDS: Midodrine 10mg tab ORAL SCH ×3 (05:31→21:09)
[2019-11-23] MEDS: Meropenem 1 GM in NS 55 ML IVPB SCH (05:31)
--- NOTE | 2019-11-23 07:42 | Hematology/Onc Progress Note ---
Assessment/Plan Assessment/Plan Assessment/recs # Anemia rule out gi bleed, as well as iron deficiency --> hgb 8.2-->7.2-->7.1->6.9-->8.6-->8.3-->9.3-->8.3-->9.3--.9.2->8.7 --> anemia panel ordered--> cw acd --> occult blood pending-->neg --> gi eval prn --> transfuse as needed --> transfuse 2 units 10/27 --> po iron to continue # Coagulopathy with elev ptt/inr --> vitk and ffp as needed --> no bleeding noted at this time # Thrombocytosis likely reactive process --> plt 398-->608-->605 --> abx as needed # Sepsis due to uti, with Hypotension likely due to septic shock. Was diuresing heavily at 300 mL an hour. --> Continue on midodrine and dopamine. --> ABX vancomycin and meropenem and amikacin-->christel/vanc/difluc --> before requires pressors --> as per cards # IVC filter in place # Bradycardia. --> per cards # Paraplegia. # LLQ colostomy # Decubitus ulcers with sacral decubitus. # Dvt heparin sq Appreciate consultation and dw RN Subjective Constitutional: Denies: no symptoms, chills, fever, malaise, weakness, other HEENT: Denies: no symptoms, eye pain, blurred vision, tearing, double vision, ear pain, ear discharge, nose pain, nose congestion, throat pain, throat swelling, mouth pain, mouth swelling, other Cardiovascular: Denies: no symptoms, chest pain, edema, irregular heart rate, lightheadedness, palpitations, syncope, other Respiratory: Denies: no symptoms, cough, shortness of breath, SOB with excertion, SOB at rest, sputum, wheezing, other Gastrointestinal/Abdominal: Denies: no symptoms, abdomen distended, abdominal pain, black stools, tarry stools, blood in stool, constipated, diarrhea, difficulty swallowing, nausea, poor appetite, poor fluid intake, rectal bleeding , vomiting, other Genitourinary: Denies: no symptoms, burning, discharge, frequency, flank pain, hematuria, incontinence, pain, urgency, other Neurologic/Psychiatric: Denies: no symptoms, anxiety, depressed, emotional problems, headache, numbness, paresthesia, pre-existing deficit, seizure, tingling, tremors, weakness, other Endocrine: Denies: no symptoms, excessive sweating, flushing, intolerance to cold, intolerance to heat, increased hunger, increased thirst, increased urine, unexplained weight gain, unexplained weight loss, other Allergies: Coded Allergies: No Known Allergies (Unverified , 08/15/19) Subjective 10/27 labs again refused this am, yesterday was low, chandrakant england in icu 10/28 remains in icu, for 2units prbc this am, chandrakant england, no other events 10/29 s/p prbc, tolerated it well, no bleeding, on 1mcg levo, in icu 10/30 on abx, on levo and overnight no other events, 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\ 10/31 wounds improved, labs noted, no bleeding, hgb lower, refusing care/wound care 11/01 labs noted, no bleeding, no hematochezia, no hemoptysis, cbc ordered 11/02 meds reviewed, labs noted, no bleeding, chandrakant england, no major changes, hgb 8.3 11/04 labs have been noted, no bleeding, meds reviewed, no hemolysis 11/05 functional colostomy llq, no bleeding, cbc is pending for am 11/06 labs have been refused, hgb 8.3, no bleeding, wbc is higher in am 11/07 labs have initially been refused, no bleeding in am, wbc 13, on abx 11/08 labs reviewed, no bleeding, chandrakant england, cbc is pending for am 11/09 is on vanc/difl/christel, no other changes, cbc and bmp are noted 11/11 has been asymptomatic, eating breakfast, hgb 9.3, on abx 11/12 labs are noted, no bleeding, chandrakant england, no major changes, abx 11/13 is currently on christel and vanc, chandrakant england, no major bleeding, on hep sq 11/14 labs are noted, does not want to be changed currently, cbc/bmp ordered 11/15 labs reviewed, c/o pain at picc line, no bleeding, meds noted, hgb 8.7 11/16 labs are noted, has been cleared, for dc planning to snf 11/[address], no bleeding, meds noted, continues to be on heparin sq 11/19 labs noted, no bleeding, comfortable, cbc is ntoed and bmp for am labs 11/[address], with dressing change as needed, meds noted, labs reviewed 11/[address], is on vanc/christel seen by id, no major changes 11/22 labs reviewed, with colostomy, donohue catheter, ct of a/p noted Objective Objective Current Medications Medications (Trade) Dose Ordered Sig/Mya Route PRN Reason Start Time Stop Time Status Last Admin Dose Admin Acetaminophen (Tylenol) 650 mg Q4H PRN ORAL Mild Pain (Pain Scale 1-3) 11/05/19 14:00 11/30/19 13:59 11/21/19 20:14 Acetaminophen (Tylenol) 650 mg Q4H PRN ORAL Temp >100.5 11/05/19 16:00 12/05/19 15:59 11/22/19 19:42 Acetaminophen/ Hydrocodone Bitart ([place] 10/325) 1 tab Q4H PRN ORAL Severe Pain (Pain Scale 7-10) 11/22/19 21:15 11/23/19 21:14 11/23/19 01:10 Ascorbic Acid (Vitamin C) 500 mg DAILY ORAL 11/06/19 09:00 11/23/19 08:59 11/22/19 09:31 Chlorhexidine Gluconate (Simran-Hex 2%) 1 applic DAILY@2000 TOPIC 11/13/19 20:00 02/11/20 19:59 11/22/19 19:43 Desmopressin Acetate (Ddavp) 1 spray DAILY NASAL 11/14/19 09:00 02/07/20 17:59 11/22/19 09:40 Dextrose (Dextrose 50%) 25 ml Q30M PRN IV Hypoglycemia 11/05/19 13:30 01/21/20 17:29 Dextrose (Dextrose 50%) 50 ml Q30M PRN IV Hypoglycemia 11/05/19 13:30 01/21/20 17:29 Famotidine (Pepcid) 20 mg DAILY ORAL 11/06/19 09:00 01/28/20 09:29 11/22/19 09:31 Ferrous Sulfate (Feosol) 325 mg DAILY ORAL 11/06/19 09:00 01/22/20 08:59 11/22/19 09:30 Fludrocortisone Acetate (Florinef) 0.1 mg DAILY ORAL 11/15/19 09:00 12/15/19 08:59 11/22/19 09:31 Gabapentin (Neurontin) 400 mg Q8HR ORAL 11/05/19 14:00 12/03/19 21:59 11/23/19 05:31 Heparin Sodium (Porcine) (Heparin 5000 units/ml) 5,000 units EVERY 12 HOURS SUBQ 11/05/19 21:00 12/08/19 08:59 11/22/19 09:32 Magnesium Hydroxide (Mom) 30 ml HSPRN PRN ORAL Constipation 11/13/19 11:15 12/13/19 11:14 Meropenem 1 gm/ Sodium Chloride 55 ml @ 110 mls/hr Q8HR IVPB 11/21/19 00:00 11/26/19 00:00 11/23/19 05:31 Midodrine (Pro-Amatine) 10 mg EVERY 8 HOURS ORAL 11/05/19 14:00 01/21/20 17:59 11/23/19 05:31 Sodium Hypochlorite (Dakin's Quarter Strength) 1 applic DAILY TOPIC 11/06/19 09:00 11/24/19 08:59 11/22/19 09:30 Sodium Chloride (NaCl) 1 gm THREE TIMES A DAY ORAL 11/09/19 13:00 12/09/19 12:59 11/22/19 17:31 Zinc Sulfate (Zinc Sulfate) 220 mg DAILY ORAL 11/06/19 09:00 01/22/20 08:59 11/22/19 09:30 Last 24 Hour Vital Signs Date Time Temp Pulse Resp B/P (MAP) Pulse Ox O2 Delivery O2 Flow Rate FiO2 11/23/19 04:00 98.1 67 18 98/56 (70) 95 11/23/19 01:40 98.3 11/23/19 00:00 98.3 68 20 99/58 (72) 100 11/22/19 21:00 Room Air 11/22/19 20:12 99.3 11/22/19 20:00 101.8 77 18 113/63 (80) 100 11/22/19 16:00 98.2 66 17 100/59 (73) 100 11/22/19 12:00 98.9 76 18 98/61 (73) 95 11/22/19 09:00 Room Air 11/22/19 08:00 99.1 79 17 89/52 (64) 94 11/22/19 04:00 99.8 87 19 100/55 (70) 98 11/22/19 00:43 98.3 11/22/19 00:00 99.8 74 19 103/60 (74) 97 11/21/19 21:00 Room Air 11/21/19 20:44 98.3 11/21/19 20:00 99.9 87 19 99/59 (72) 96 11/21/19 16:00 98.3 90 19 111/83 (92) 98 11/21/19 12:00 97.9 60 18 100/59 (73) 99 11/21/19 09:00 Room Air 11/21/19 08:00 98.0 73 18 114/75 (88) 99 Intake and Output 11/22/19 11/23/19 19:00 07:00 Intake Total 2400 ml 500 ml Output Total 1700 ml 550 ml Balance 700 ml -50 ml Intake Oral 2400 ml 500 ml Output Urine Total 1700 ml 550 ml # Bowel Movements 1 Labs Test 11/20/19 23:30 Urine Color Yellow Urine Appearance Clear Urine pH 6 (4.5-8.0) Urine Specific [place] 1.020 (1.005-1.035) Urine Protein 2+ (NEGATIVE) Urine Glucose (UA) Negative (NEGATIVE) Urine Ketones Negative (NEGATIVE) Urine Blood 1+ (NEGATIVE) Urine Nitrite Negative (NEGATIVE) Urine Bilirubin Negative (NEGATIVE) Urine Urobilinogen Normal MG/DL (0.0-1.0) Urine Leukocyte Esterase 1+ (NEGATIVE) Urine RBC 0-2 /HPF (0 - 0) Urine WBC 0-2 /HPF (0 - 0) Urine Squamous Epithelial Cells None /LPF (NONE/OCC) Urine Bacteria None /HPF (NONE) Height (Feet): 5 Height (Inches): 7.00 Weight (Pounds): 114 Objective Physical Exam General Appearance: lethargic Lines, tubes and drains: peripheral, central line HEENT: normocephalic Neck: non-tender, normal alignment Respiratory/Chest: lungs clear Cardiovascular/Chest: normal peripheral pulses, normal rate, regular rhythm Abdomen: normal bowel sounds, non tender ++ llq colostomy : ++Martínez Geiger MD Nov 23, 2019 07:42
[2019-11-23 08:12] VITALS: BP 104/60
--- NOTE | 2019-11-23 08:17 | General Progress Note ---
Assessment/Plan Status: stable Assessment/Plan: 59 year old man who presents from [facility] with weakness, encephalopathy, concern for septic shock, possible from UTI. 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 -Evaluated by endocrine for adrenal insufficiency -AM cortisol normal however patient continues to have labile BP and hyponatremia - Appreciate Nephrology consult - Appreciate Endocrine consult - Will continue Florinef, Salt Tab, and DDAVP - Continue Midodrine given labile BP - CT Brain without masses noted, will defer MRI - Refusing labs periodically #Fever - improved #Septic shock- resolved #Proteus UTI #Actinobacter UTI, GPC UTI #Acute metabolic encephalopathy -improving #Paraplegia #Sacral pressure ulcer, present on admit - Periods of hypotension and fever through hospitalization, VSS now - BC & CXR wnl - Covid 19 - negative - S/p vancomycin, cefepime, and flagyl - Spoke with surgery, sacral pressure ulcer does not appear to be infected - Local wound care and offloading - Fever 101.7 on 10/20, repeat BCx ordered however pt refused labs - 10/20 CXR w/no acute process - Appreciate ID consult - on meropenum - CT abd/pel w/ and w/o contrast ordered and pending - UCx on 11/19 positive for actinobacter and GPC #Fungal UTI - resolved, s/p treatment - Patient is high risk for fungemia - Diflucan 11/16 - 11/23 -Appreciate ID Consult #Sinus Bradycardia - resolved -continue telemetry -EP following #Hyponatremia #Hypokalemia -improving -Intermittently refusing labs -Replete when necessary -On DDAVP intranasal #Anemia, acute on chronic -2 units RBC 10/28 -Hematology following, no signs of overt bleeding - Continue Iron tab - Keep Hb >7 #Chronic Lower extremity pain Likely 2' contractures and prior accident - Gabapentin, [place], Baclofen FEN: Heparin q12 Jevity TF #Dispo - Awaiting SNF bed placement. Appreciate referrals placed by CM. I spent 29 minutes on this patient's care today, and 19 mins was dedicated to counseling and care coordination. Time of note doesn't reflect time of encounter. Subjective Allergies: Coded Allergies: No Known Allergies (Unverified , 08/15/19) Subjective No acute events overnight. Pt denies any f/c, n/v, CP, SOB, abd pain at this time. Pt cont to refuse labs/bloodwork, educated pt on medical compliance again and pt cont. to express he does not want any blood draws at this time. Objective Last 24 Hour Vital Signs Date Time Temp Pulse Resp B/P (MAP) Pulse Ox O2 Delivery O2 Flow Rate FiO2 11/23/19 08:12 99.3 74 20 104/60 (75) 95 11/23/19 04:00 98.1 67 18 98/56 (70) 95 11/23/19 01:40 98.3 11/23/19 00:00 98.3 68 20 99/58 (72) 100 11/22/19 21:00 Room Air 11/22/19 20:12 99.3 11/22/19 20:00 101.8 77 18 113/63 (80) 100 11/22/19 16:00 98.2 66 17 100/59 (73) 100 11/22/19 12:00 98.9 76 18 98/61 (73) 95 11/22/19 09:00 Room Air Intake and Output 11/22/19 11/23/19 19:00 07:00 Intake Total 2400 ml 500 ml Output Total 1700 ml 550 ml Balance 700 ml -50 ml Intake Oral 2400 ml 500 ml Output Urine Total 1700 ml 550 ml # Bowel Movements 1 Height (Feet): 5 Height (Inches): 7.00 Weight (Pounds): 114 Objective General Appearance: no apparent distress, alert, sitting up in bed comfortably HEENT: NCAT, EOMI, MMM Neck: non-tender, supple Cardiovascular: normal rate, regular rhythm Respiratory/Chest: chest wall non-tender, normal breath sounds Abdomen: normal bowel sounds, non tender, soft, Colostomy in place w/brown stool c/d/i, PEG c/d/i Extremities: contractures in b/l lower extremity Neurologic: horse identifier II-XII grossly normal Skin: warm/dry Jerry Razo M.D. Nov 23, 2019 08:17
[2019-11-23] MEDS: Zinc Sulfate 220mg ORAL SCH (08:24)
[2019-11-23] MEDS: Sodium Chloride 1gm Tab ORAL SCH ×3 (08:24→17:20)
[2019-11-23] MEDS: Desmopressin Nasal 5ml NASAL SCH (08:25)
[2019-11-23] MEDS: Dakin's 0.125% Soln (Quarter Strength) 16oz TOPIC SCH (08:31)
[2019-11-23] MEDS: Heparin 5000 units/ml inj SUBQ SCH ×2 (08:35→21:09)
--- NOTE | 2019-11-23 09:36 | Pulmonology Progress Note ---
Subjective ROS Limited/Unobtainable: Yes Interval Events: no fever or leucocytosis Constitutional: Reports: fever - less HEENT: Repors: no symptoms Respiratory: Reports: no symptoms Cardiovascular: Reports: no symptoms Gastrointestinal/Abdominal: Denies: nausea, vomiting, diarrhea Genitourinary: Reports: no symptoms Psychiatric: Denies: depression Skin: Denies: rash Musculoskeletal: Denies: pain Allergies: Coded Allergies: No Known Allergies (Unverified , 08/15/19) All Systems: reviewed and negative except above Objective Last 24 Hour Vital Signs Date Time Temp Pulse Resp B/P (MAP) Pulse Ox O2 Delivery O2 Flow Rate FiO2 11/23/19 08:12 99.3 74 20 104/60 (75) 95 11/23/19 08:12 Room Air 11/23/19 04:00 98.1 67 18 98/56 (70) 95 11/23/19 01:40 98.3 11/23/19 00:00 98.3 68 20 99/58 (72) 100 11/22/19 21:00 Room Air 11/22/19 20:12 99.3 11/22/19 20:00 101.8 77 18 113/63 (80) 100 11/22/19 16:00 98.2 66 17 100/59 (73) 100 11/22/19 12:00 98.9 76 18 98/61 (73) 95 Intake and Output 11/22/19 11/23/19 19:00 07:00 Intake Total 2400 ml 500 ml Output Total 1700 ml 550 ml Balance 700 ml -50 ml Intake Oral 2400 ml 500 ml Output Urine Total 1700 ml 550 ml # Bowel Movements 1 General Appearance: no acute distress HEENT: normocephalic Respiratory: chest wall non-tender, lungs clear Cardiovascular: normal peripheral pulses, regular rhythm Abdomen: normal bowel sounds Extremities: no cyanosis Microbiology Date/Time Source Procedure Growth Status 11/20/19 23:30 Indwelling Cath Urine Culture - Preliminary Acinetobacter Baumanii - Mdr Gram Positive Cocci Resulted Current Medications Medications (Trade) Dose Ordered Sig/Mya Route PRN Reason Start Time Stop Time Status Last Admin Dose Admin Acetaminophen (Tylenol) 650 mg Q4H PRN ORAL Mild Pain (Pain Scale 1-3) 11/05/19 14:00 11/30/19 13:59 9/8/20 20:14 Acetaminophen (Tylenol) 650 mg Q4H PRN ORAL Temp >100.5 11/05/19 16:00 12/05/19 15:59 11/22/19 19:42 Acetaminophen/ Hydrocodone Bitart ([place] 10325) 1 tab Q4H PRN ORAL Severe Pain (Pain Scale 7-10) 11/22/19 21:15 11/23/19 21:14 11/23/19 08:25 Cefepime HCl 2 gm/ Dextrose 55 ml @ 110 mls/hr EVERY 8 HOURS IVPB 11/23/19 14:00 11/30/19 13:59 Chlorhexidine Gluconate (Simran-Hex 2%) 1 applic DAILY@2000 TOPIC 11/13/19 20:00 02/11/20 19:59 11/22/19 19:43 Desmopressin Acetate (Ddavp) 1 spray DAILY NASAL 11/14/19 09:00 02/07/20 17:59 11/23/19 08:25 Dextrose (Dextrose 50%) 25 ml Q30M PRN IV Hypoglycemia 11/05/19 13:30 01/21/20 17:29 Dextrose (Dextrose 50%) 50 ml Q30M PRN IV Hypoglycemia 11/05/19 13:30 01/21/20 17:29 Famotidine (Pepcid) 20 mg DAILY ORAL 11/06/19 09:00 01/28/20 09:29 11/23/19 08:24 Ferrous Sulfate (Feosol) 325 mg DAILY ORAL 11/06/19 09:00 01/22/20 08:59 11/23/19 08:24 Fludrocortisone Acetate (Florinef) 0.1 mg DAILY ORAL 11/15/19 09:00 12/15/19 08:59 11/23/19 08:24 Gabapentin (Neurontin) 400 mg Q8HR ORAL 11/05/19 14:00 12/03/19 21:59 11/23/19 05:31 Heparin Sodium (Porcine) (Heparin 5000 units/ml) 5,000 units EVERY 12 HOURS SUBQ 11/05/19 21:00 12/08/19 08:59 11/23/19 08:35 Magnesium Hydroxide (Mom) 30 ml HSPRN PRN ORAL Constipation 11/13/19 11:15 12/13/19 11:14 Midodrine (Pro-Amatine) 10 mg EVERY 8 HOURS ORAL 11/05/19 14:00 01/21/20 17:59 11/23/19 05:31 Sodium Hypochlorite (Dakin's Quarter Strength) 1 applic DAILY TOPIC 11/06/19 09:00 11/24/19 08:59 11/23/19 08:31 Sodium Chloride (NaCl) 1 gm THREE TIMES A DAY ORAL 11/09/19 13:00 12/09/19 12:59 11/23/19 08:24 Zinc Sulfate (Zinc Sulfate) 220 mg DAILY ORAL 11/06/19 09:00 01/22/20 08:59 11/23/19 08:24 Assessment/Plan Assessment/Plan IMPRESSION: 1. Septic shock. resolved 2. Complicated UTI with history of previous ESBL infection. 3. Paraplegia. 4. Sacral decubitus. 5. longterm resident. DISCUSSION: DVT and GI prophylaxes. Continue Oxygen prn, doing well on room air at this time. DC planning Haily Monzon Omar Syed MD Nov 23, 2019 09:36
--- NOTE | 2019-11-23 10:43 | Surgery Progress Note ---
Surgery Progress Note Subjective Additional Comments improved labs improved no n/v Objective Last 24 Hour Vital Signs Date Time Temp Pulse Resp B/P (MAP) Pulse Ox O2 Delivery O2 Flow Rate FiO2 11/23/19 08:12 99.3 74 20 104/60 (75) 95 11/23/19 08:12 Room Air 11/23/19 04:00 98.1 67 18 98/56 (70) 95 11/23/19 01:40 98.3 11/23/19 00:00 98.3 68 20 99/58 (72) 100 11/22/19 21:00 Room Air 11/22/19 20:12 99.3 11/22/19 20:00 101.8 77 18 113/63 (80) 100 11/22/19 16:00 98.2 66 17 100/59 (73) 100 11/22/19 12:00 98.9 76 18 98/61 (73) 95 I&O Intake and Output 11/22/19 11/23/19 19:00 07:00 Intake Total 2400 ml 500 ml Output Total 1700 ml 550 ml Balance 700 ml -50 ml Intake Oral 2400 ml 500 ml Output Urine Total 1700 ml 550 ml # Bowel Movements 1 Dressing: saturated Cardiovascular: RSR Respiratory: decreased breath sounds Abdomen: soft, non-tender, present bowel sounds Extremities: no edema, no tenderness Plan Problems: (1) Abdominal distension Assessment & Plan: abd distention soft non tender ostomy viable and reduced KUB ordered pending results improved comfortable no complaints okay for diet s tolerated d/c planning much improved There is an inferior vena cava filter in place. Bowel gas pattern is unremarkable. Considerable stool is seen in the transverse and distal colon. There is extensive pelvic deformity, with loss of the left femoral head, chronic dislocation of the left femur, and extensive pelvic deformity, particularly on the left. Adi project over the upper pelvis Impression: Possible constipation. pending placement Nonobstructed bowel gas pattern. Moderate fecal retention of the ascending colon and sigmoid colon. The degree of stool burden has increased from October 25, 2019. IVC filter, incidentally noted. Partial subluxation of the right hip. Osteotomy of the proximal left femur with deformity of the bilateral pubic rami and left acetabulum, unchanged. 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 [place] Shaped, Full Thickness Sacral Pressure Injury which extends into L ischium. (L)15.4cm x (W)18cm x (D)2.4cm, Undermining clockwise 10-2 by 7.7cm @ 11o'clock. Base of wound is moist,pink with scattered slough at base of wound. Bone is palpable at the Base. No odor or exudate noted. Scattered partial thickness wounds and Serous filled blisters noted to R trochanteric /R Hip areas. Historical scar noted to L groin, L Hip L Buttocks. Bony protrusion noted at L Hip. Full thickness Pressure Injury R Ischium(L)5.4cm x(W)6.9cm x (D)1.8cm, Undermining clockwise 1-4 by 2.7cm @2o'clock, Tunneling@7o'clock 2.9cm. Base of wound is moist pink with scattered slough. Scattered slough noted along borders. NO odor or exudate noted. Stable dry eschar noted to medial R knee 0.7cm x (W)0.4cm. Periwound is erythematous and indurated. No elevation in skin temp noted. L heel has shaved appearance secondary to Hx of Pressure Injuries. Base of heel is pale pink. Bone is palpable. Small area of slough noted within compromised area(L)0.6cm x (W)0.8cm. L Heel Also has shaved appearance with hypertrophic scarring. Base of compromised area is pale pink, Bone is palpable, with scattered loose, dry and scaly skin. Tx.Plan: Cleanse Sacral Wound and R Ischial wounds with Dakin's 0.125% gian. Loosely pack wounds with Hydrogel impregnated Kerlix. Apply Moisture Barrier Paste periwound. Cover with ABD Pads secure with Tegaderm drsg.Daily and prn. Apply Triad Paste to R Hip/R trochanteric areas.Cover with Optifoam drsg. Change every 7 days and prn. Apply Betadine to Medial R Knee. Cover with Optifoam drsg. Change every 7 days and prn. Apply Betadine to R and L Heels. Cover each Heel with Optifoam drsgs. Change every 7 days and prn. Cover Bony Prominences as needed with Optifoam drsgs. Reposition at least every [address] Pillow between knees. Off-load heels with pillow. APM/SUMI Mattress overlay DAILY ESTIMATED NEEDS: Needs based on Advanced wounds, wt loss/ 40.18kg 35-40 kcals/kg 4649-4844 total kcals 1.5-2.0 g protein/kg 60-80 g total protein 25-35ml/kcal mL/kg 7911-9544 total fluid mLs NUTRITION DIAGNOSIS: Increased kcal/prot/micronutrients needs R/T wound healing and underweight status as evidenced by pt admitted w/ multiple advanced wounds, refer to WC eval, pt now w/ further 3% unfavorable wt loss, currently BMI underweight per guidelines, @62% of [place] Body Weight. CURRENT DIET: Regular PO DIET RECOMMENDATIONS: REGULAR, texture as tolerated or per [employer] + Ensure Enlive TID w/ meals ADDITIONAL RECOMMENDATIONS: * Per SNF: HT=66" WT=88lbs; -> vs current EMR wt =120# -> Recalibrate bed scale for accurate wts * Continue Ensure TID, whole milk TID w/ meals * Monitor for continued improved/good Po intake * Wound healing:add MVI w/ min qdaily Continue w/ ZnSO4, Vit C, and Amari BID * Monitor Na, need for fluid restriction - (132 improved, on nacl) (15) SEAN (acute kidney injury) (16) Ileostomy prolapse Assessment & Plan: currently reduced but abd distended pending films films reviewed improved okay for diet d/c planning Cornelius Salgado Nov 23, 2019 10:43
[2019-11-23 12:18] VITALS: BP 104/67
--- NOTE | 2019-11-23 13:02 | Diagnostic Imaging Report ---
Indication: Reason For Exam: ABN CHST Technique: Grayscale and duplex images of the bilateral lower extremity veins Comparison: 08/15/2019 Findings: On the left, noncompressible thrombus is seen within the popliteal vein upstream, with resultant cessation of flow. The upstream popliteal vein, femoral, femoral veins as well as the tibial veins are patent, without evidence of intraluminal thrombus and demonstrate normal compressibility. The popliteal vein thrombosis is a new finding from the prior exam. On the right, grayscale and duplex images demonstrate no evidence of intraluminal thrombus. Normal phasic Doppler waveforms, demonstrating normal augmentation response and no evidence of valvular insufficiency. Greater saphenous vein(s) and tibial veins are patent. Normal compressibility. Impression: Evidence of acute left upstream popliteal vein deep venous thrombosis Dr. Capps notified at the time of interpretation
[2019-11-23] MEDS: Cefepime HCl 2 GM in D5W 55 ML IVPB SCH ×2 (13:40→21:59)
[2019-11-23] MEDS ORDERED: Gentamicin Rx monitoring MISC PRN (14:00)
[2019-11-23] MEDS: GENTAMICIN IVPB SCH (15:07)
[2019-11-23] MEDS: NS IVPB SCH (15:07)
--- NOTE | 2019-11-23 15:22 | Nephrology Progress Note ---
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 - improved with desmporessin #Shock #UTI # infected sacral pressure ulcer #Acute metabolic encephalopathy #Paraplegia #Sacral pressure ulcer #Hypokalemia #Anemia - continue florinef 0.1mg daily -Continue desmopressin nasal - continue salt tabs 1g TID - continue midodrine 10 TID - endocrine eval noted - r/o adrenal insuffiency - antibiotics per ID - monitor lytes - avoid nephrotoxins - daily weights - strict I&Os time spent 40 min- greater than 50% on care coordination and counseling Subjective ROS Limited/Unobtainable: Yes Subjective UOP 1300 yesteday refusing lab added florinef 0.1mg daily Bp soft on nasal desmopressin on salt tabs Objective Objective Last 24 Hour Vital Signs Date Time Temp Pulse Resp B/P (MAP) Pulse Ox O2 Delivery O2 Flow Rate FiO2 11/23/19 12:18 97.9 66 18 104/67 (79) 95 11/23/19 08:12 99.3 74 20 104/60 (75) 95 11/23/19 08:12 Room Air 11/23/19 04:00 98.1 67 18 98/56 (70) 95 11/23/19 01:40 98.3 11/23/19 00:00 98.3 68 20 99/58 (72) 100 11/22/19 21:00 Room Air 11/22/19 20:12 99.3 11/22/19 20:00 101.8 77 18 113/63 (80) 100 11/22/19 16:00 98.2 66 17 100/59 (73) 100 Intake and Output 11/22/19 11/23/19 19:00 07:00 Intake Total 2400 ml 500 ml Output Total 1700 ml 550 ml Balance 700 ml -50 ml Intake Oral 2400 ml 500 ml Output Urine Total 1700 ml 550 ml # Bowel Movements 1 Height (Feet): 5 Height (Inches): 7.00 Weight (Pounds): 114 Sienna Georges M.D. Nov 23, 2019 15:21
[2019-11-23] MEDS ORDERED: Vancomycin 1gm/D5W 275ml IVPB ONE ×2 (16:00)
[2019-11-23 16:13] VITALS: BP 113/64
--- NOTE | 2019-11-23 17:02 | Cardiac Electrophysiology PN ---
Assessment/Plan Assessment/Plan 1. S/P Septic shock. On Midodrine, iv fluids and antibiotic( Vano and meropenem) via PICC line. 2. Bradycardia. Resolved. 3. Paraplegia. 4. Urinary tract infection, 5. Decubitus ulcers with sacral decubitus. 6. S/P Ileostomy/ 7. Polyuria, DI. On NS, Salt tablets Placement pending Subjective Subjective Alert in NAD. Pending placement Objective Last 24 Hour Vital Signs Date Time Temp Pulse Resp B/P (MAP) Pulse Ox O2 Delivery O2 Flow Rate FiO2 11/23/19 16:13 97.9 62 20 113/64 (80) 95 11/23/19 12:18 97.9 66 18 104/67 (79) 95 11/23/19 08:12 99.3 74 20 104/60 (75) 95 11/23/19 08:12 Room Air 11/23/19 04:00 98.1 67 18 98/56 (70) 95 11/23/19 01:40 98.3 11/23/19 00:00 98.3 68 20 99/58 (72) 100 11/22/19 21:00 Room Air 11/22/19 20:12 99.3 11/22/19 20:00 101.8 77 18 113/63 (80) 100 Intake and Output 11/22/19 11/23/19 19:00 07:00 Intake Total 2400 ml 500 ml Output Total 1700 ml 550 ml Balance 700 ml -50 ml Intake Oral 2400 ml 500 ml Output Urine Total 1700 ml 550 ml # Bowel Movements 1 Microbiology Date/Time Source Procedure Growth Status 11/20/19 23:30 Indwelling Cath Urine Culture - Preliminary Acinetobacter Baumanii - Mdr Gram Positive Cocci Resulted Objective HEAD AND NECK: No JVD. LUNGS: Coarse rhonchi. CARDIOVASCULAR: Regular S1 and S2 with no gallop. ABDOMEN: Soft.S/P Ileostomy EXTREMITIES: No pitting edema, however, has pressure ulcers. Carloz Estes MD Nov 23, 2019 17:02
[2019-11-23 20:00] VITALS: BP 117/66
[2019-11-23] MEDS: Dyna-Hex 2% Top Sol 2oz TOPIC SCH (21:19)
[2019-11-24] VITALS: BP 107/59
[2019-11-24] MEDS: HYDROcodone/Acetamin 10/325 tab ORAL PRN ×2 (02:06→06:10)
[2019-11-24 04:00] VITALS: BP 108/72
[2019-11-24] MEDS: Cefepime HCl 2 GM in D5W 55 ML IVPB SCH ×2 (05:19→14:28)
[2019-11-24] MEDS ORDERED: Vancomycin 750mg/NS 275ml IVPB SCH ×2 (06:00)
[2019-11-24] MEDS: Midodrine 10mg tab ORAL SCH ×3 (06:09→20:50)
--- NOTE | 2019-11-24 07:39 | General Progress Note ---
Assessment/Plan Status: stable Assessment/Plan: 59 year old man who presents from [facility] with weakness, encephalopathy, concern for septic shock, possible from UTI. #Acute Left Popliteal DVT -Pt has IVC filter -D/w Heme, start eliquis 2.5 BID -monitor for signs of bleeding -d/c HSQ given pt now on eliquis #Stool Impaction -seen on CT abd on 11/22/2019 -Docusate-senna daily -PRN dulcolax #Fever - improved #Septic shock- resolved #Proteus UTI #Actinobacter UTI, GPC UTI #Acute metabolic encephalopathy -improving #Paraplegia #Sacral pressure ulcer, present on admit - Periods of hypotension and fever through hospitalization, VSS now - BC & CXR wnl - Covid 19 - negative - S/p vancomycin, cefepime, and flagyl - Spoke with surgery, sacral pressure ulcer does not appear to be infected - Local wound care and offloading - Fever 101.7 on 10/20, repeat BCx ordered however pt refused labs - 10/20 CXR w/no acute process - Appreciate ID consult - on meropenum - CT abd/pel w/ and w/o contrast ordered and pending - UCx on 11/19 positive for actinobacter and GPC #Sacral Decubitius Ulcer -CT abd/pel on 11/22/19 w/ subcutaneous gas -wound care daily -appreciate wound care recs -abd per ID #Fungal UTI - resolved, s/p treatment - Patient is high risk for fungemia - Diflucan 11/16 - 11/23 -Appreciate ID Consult #Sinus Bradycardia - resolved -continue telemetry -EP following 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 -Evaluated by endocrine for adrenal insufficiency -AM cortisol normal however patient continues to have labile BP and hyponatremia - Appreciate Nephrology consult - Appreciate Endocrine consult - Will continue Florinef, Salt Tab, and DDAVP - Continue Midodrine given labile BP - CT Brain without masses noted, will defer MRI - Refusing labs periodically #Hyponatremia #Hypokalemia -improving -Intermittently refusing labs -Replete when necessary -On DDAVP intranasal #Anemia, acute on chronic -2 units RBC 10/28 -Hematology following, no signs of overt bleeding - Continue Iron tab - Keep Hb >7 #Chronic 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 Appreciate referrals placed by CM. I spent 38 minutes on this patient's care today, and 22 mins was dedicated to counseling and care coordination. D/w ID, wound care, Heme. Time of note doesn't reflect time of encounter. Subjective Allergies: Coded Allergies: No Known Allergies (Unverified , 08/15/19) Subjective No acute events overnight. Pt denies any pain, f/c, n/v, CP, SOB, abd pain at this time. Pending placement due to insurance. Objective Last 24 Hour Vital Signs Date Time Temp Pulse Resp B/P (MAP) Pulse Ox O2 Delivery O2 Flow Rate FiO2 11/24/19 04:00 98.0 87 18 108/72 (84) 98 11/24/19 00:00 99.7 89 18 107/59 (75) 98 11/23/19 21:00 Room Air 11/23/19 20:00 99.5 85 18 117/66 (83) 98 11/23/19 16:13 97.9 62 20 113/64 (80) 95 11/23/19 12:18 97.9 66 18 104/67 (79) 95 11/23/19 08:12 99.3 74 20 104/60 (75) 95 11/23/19 08:12 Room Air Intake and Output 11/23/19 11/24/19 19:00 07:00 Intake Total 846.000 ml Output Total 700 ml 450 ml Balance 146.000 ml -450 ml Intake Oral 400 ml IV Total 446.000 ml Output Urine Total 700 ml 450 ml # Voids 1 # Bowel Movements 3 Height (Feet): 5 Height (Inches): 7.00 Weight (Pounds): 114 Objective General Appearance: no apparent distress, alert, sitting up in bed comfortably HEENT: NCAT, EOMI, MMM Neck: non-tender, supple Cardiovascular: normal rate, regular rhythm Respiratory/Chest: chest wall non-tender, normal breath sounds Abdomen: normal bowel sounds, non tender, soft, Colostomy in place w/brown stool c/d/i, PEG c/d/i Extremities: contractures in b/l lower extremity 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 Nov 24, 2019 07:39
[2019-11-24 08:00] VITALS: BP 95/61
--- NOTE | 2019-11-24 08:47 | Hematology/Onc Progress Note ---
Assessment/Plan Assessment/Plan # Acute left upstream popliteal vein deep venous thrombosis IVC filter in place --> given acute nature, will start eliquis --> HOWEVER, if drop in h/h consider to hold eliquis as has ivc in place --> IVC Filter placed earlier # Anemia rule out gi bleed, as well as iron deficiency --> hgb 8.2-->7.2-->7.1->6.9-->8.6-->8.3-->9.3-->8.3-->9.3--.9.2->8.7 --> anemia panel ordered--> cw acd --> occult blood pending-->neg --> gi eval prn --> transfuse as needed --> transfuse 2 units 10/27 --> po iron to continue # Coagulopathy with elev ptt/inr --> vitk and ffp as needed --> no bleeding noted at this time # Thrombocytosis likely reactive process --> plt 398-->608-->605 --> abx as needed # Sepsis due to uti, with Hypotension likely due to septic shock. Was diuresing heavily at 300 mL an hour. --> Continue on midodrine and dopamine. --> ABX vancomycin and meropenem and amikacin-->christel/vanc/difluc --> before requires pressors --> as per cards # Bradycardia. --> per cards # Paraplegia. # LLQ colostomy # Decubitus ulcers with sacral decubitus. # Dvt heparin sq Appreciate consultation and chandrakant RN Subjective Constitutional: Denies: no symptoms, chills, fever, malaise, weakness, other HEENT: Denies: no symptoms, eye pain, blurred vision, tearing, double vision, ear pain, ear discharge, nose pain, nose congestion, throat pain, throat swelling, mouth pain, mouth swelling, other Cardiovascular: Denies: no symptoms, chest pain, edema, irregular heart rate, lightheadedness, palpitations, syncope, other Respiratory: Denies: no symptoms, cough, shortness of breath, SOB with excertion, SOB at rest, sputum, wheezing, other Gastrointestinal/Abdominal: Denies: no symptoms, abdomen distended, abdominal pain, black stools, tarry stools, blood in stool, constipated, diarrhea, difficulty swallowing, nausea, poor appetite, poor fluid intake, rectal bleeding , vomiting, other Genitourinary: Denies: no symptoms, burning, discharge, frequency, flank pain, hematuria, incontinence, pain, urgency, other Neurologic/Psychiatric: Denies: no symptoms, anxiety, depressed, emotional problems, headache, numbness, paresthesia, pre-existing deficit, seizure, tingling, tremors, weakness, other Allergies: Coded Allergies: No Known Allergies (Unverified , 08/15/19) Subjective 10/27 labs again refused this am, yesterday was low, chandrakant rn in icu 10/28 remains in icu, for 2units prbc this am, chandrakant [place], no other events 10/29 s/p prbc, tolerated it well, no bleeding, on 1mcg levo, in icu 10/30 on abx, on levo and overnight no other events, chandrakant [place] technician\ 10/31 wounds improved, labs noted, no bleeding, hgb lower, refusing care/wound care 11/01 labs noted, no bleeding, no hematochezia, no hemoptysis, cbc ordered 11/02 meds reviewed, labs noted, no bleeding, chandrakant [place], no major changes, hgb 8.3 11/04 labs have been noted, no bleeding, meds reviewed, no hemolysis 11/05 functional colostomy llq, no bleeding, cbc is pending for am 11/06 labs have been refused, hgb 8.3, no bleeding, wbc is higher in am 11/07 labs have initially been refused, no bleeding in am, wbc 13, on abx 11/08 labs reviewed, no bleeding, chandrakant [place], cbc is pending for am 11/09 is on vanc/difl/christel, no other changes, cbc and bmp are noted 11/11 has been asymptomatic, eating breakfast, hgb 9.3, on abx 11/12 labs are noted, no bleeding, chandrakant [place], no major changes, abx 11/13 is currently on christel and vanc, chandrakant [place], no major bleeding, on hep sq 11/14 labs are noted, does not want to be changed currently, cbc/bmp ordered 11/15 labs reviewed, c/o pain at picc line, no bleeding, meds noted, hgb 8.7 11/16 labs are noted, has been cleared, for dc planning to snf 11/[address], no bleeding, meds noted, continues to be on heparin sq 11/19 labs noted, no bleeding, comfortable, cbc is ntoed and bmp for am labs 11/[address], with dressing change as needed, meds noted, labs reviewed 11/[address], is on vanc/christel seen by id, no major changes 11/22 labs reviewed, with colostomy, donohue catheter, ct of a/p noted 11/23 meds noted, no bleeding, have ordered for eliquis and chandrakant Razo in am Objective Objective Current Medications Medications (Trade) Dose Ordered Sig/Mya Route PRN Reason Start Time Stop Time Status Last Admin Dose Admin Acetaminophen (Tylenol) 650 mg Q4H PRN ORAL Mild Pain (Pain Scale 1-3) 11/05/19 14:00 11/30/19 13:59 11/21/19 20:14 Acetaminophen (Tylenol) 650 mg Q4H PRN ORAL Temp >100.5 11/05/19 16:00 12/05/19 15:59 11/22/19 19:42 Acetaminophen/ Hydrocodone Bitart ([place] 10/325) 1 tab Q4H PRN ORAL For severe Pain 11/23/19 15:00 11/30/19 14:59 11/24/19 06:10 Apixaban (Eliquis) 2.5 mg BID ORAL 11/24/19 09:00 02/22/20 08:59 Bisacodyl (Dulcolax) 10 mg DAILYPRN PRN RECTAL Constipation 11/24/19 07:45 02/22/20 07:44 Cefepime HCl 2 gm/ Dextrose 55 ml @ 110 mls/hr EVERY 8 HOURS IVPB 11/23/19 14:00 11/30/19 13:59 11/24/19 05:19 Chlorhexidine Gluconate (Simran-Hex 2%) 1 applic DAILY@2000 TOPIC 11/13/19 20:00 02/11/20 19:59 11/23/19 21:19 Desmopressin Acetate (Ddavp) 1 spray DAILY NASAL 11/14/19 09:00 02/07/20 17:59 11/23/19 08:25 Dextrose (Dextrose 50%) 25 ml Q30M PRN IV Hypoglycemia 11/05/19 13:30 01/21/20 17:29 Dextrose (Dextrose 50%) 50 ml Q30M PRN IV Hypoglycemia 11/05/19 13:30 01/21/20 17:29 Famotidine (Pepcid) 20 mg DAILY ORAL 11/06/19 09:00 01/28/20 09:29 11/23/19 08:24 Ferrous Sulfate (Feosol) 325 mg DAILY ORAL 11/06/19 09:00 01/22/20 08:59 11/23/19 08:24 Fludrocortisone Acetate (Florinef) 0.1 mg DAILY ORAL 11/15/19 09:00 12/15/19 08:59 11/23/19 08:24 Gabapentin (Neurontin) 400 mg Q8HR ORAL 11/05/19 14:00 12/03/19 21:59 11/24/19 06:09 Gentamicin Protocol (Gentamicin pharmacy to dose) 1 ea DAILY PRN MISC Per rx protocol 11/23/19 14:00 12/23/19 13:59 Gentamicin Sulfate 240 mg/ Sodium Chloride 116 ml @ 116 mls/hr Q24H IVPB 11/23/19 15:00 11/30/19 14:59 11/23/19 15:07 Magnesium Hydroxide (Mom) 30 ml HSPRN PRN ORAL Constipation 11/13/19 11:15 12/13/19 11:14 Midodrine (Pro-Amatine) 10 mg EVERY 8 HOURS ORAL 11/05/19 14:00 01/21/20 17:59 11/24/19 06:09 Senna/Docusate Sodium (Haley-Colace) 1 tab TWICE A DAY ORAL 11/24/19 09:00 12/24/19 08:59 Sodium Hypochlorite (Dakin's Quarter Strength) 1 applic DAILY TOPIC 11/06/19 09:00 11/24/19 08:59 11/23/19 08:31 Sodium Chloride (NaCl) 1 gm THREE TIMES A DAY ORAL 11/09/19 13:00 12/09/19 12:59 11/23/19 17:20 Vancomycin HCl (Vanco pharmacy to dose) 1 ea DAILY PRN MISC Per rx protocol 11/23/19 14:00 12/23/19 13:59 Vancomycin HCl 750 mg/Sodium Chloride 275 ml @ 183.333 mls/hr Q12HR@0600,1800 IVPB 11/24/19 06:00 11/29/19 05:59 11/24/19 06:09 Zinc Sulfate (Zinc Sulfate) 220 mg DAILY ORAL 11/06/19 09:00 01/22/20 08:59 11/23/19 08:24 Last 24 Hour Vital Signs Date Time Temp Pulse Resp B/P (MAP) Pulse Ox O2 Delivery O2 Flow Rate FiO2 11/24/19 04:00 98.0 87 18 108/72 (84) 98 11/24/19 00:00 99.7 89 18 107/59 (75) 98 11/23/19 21:00 Room Air 11/23/19 20:00 99.5 85 18 117/66 (83) 98 11/23/19 16:13 97.9 62 20 113/64 (80) 95 11/23/19 12:18 97.9 66 18 104/67 (79) 95 11/23/19 08:12 99.3 74 20 104/60 (75) 95 11/23/19 08:12 Room Air 11/23/19 04:00 98.1 67 18 98/56 (70) 95 11/23/19 01:40 98.3 11/23/19 00:00 98.3 68 20 99/58 (72) 100 11/22/19 21:00 Room Air 11/22/19 20:12 99.3 11/22/19 20:00 101.8 77 18 113/63 (80) 100 11/22/19 16:00 98.2 66 17 100/59 (73) 100 11/22/19 12:00 98.9 76 18 98/61 (73) 95 11/22/19 09:00 Room Air Intake and Output 11/23/19 11/24/19 19:00 07:00 Intake Total 846.000 ml Output Total 700 ml 450 ml Balance 146.000 ml -450 ml Intake Oral 400 ml IV Total 446.000 ml Output Urine Total 700 ml 450 ml # Voids 1 # Bowel Movements 3 Height (Feet): 5 Height (Inches): 7.00 Weight (Pounds): 114 Objective Physical Exam General Appearance: lethargic Lines, tubes and drains: peripheral, central line HEENT: normocephalic Neck: non-tender, normal alignment Respiratory/Chest: lungs clear Cardiovascular/Chest: normal peripheral pulses, normal rate, regular rhythm Abdomen: normal bowel sounds, non tender ++ llq colostomy : ++Martínez Geiger MD Nov 24, 2019 08:47
[2019-11-24] MEDS: Zinc Sulfate 220mg ORAL SCH (09:37)
[2019-11-24] MEDS: Sodium Chloride 1gm Tab ORAL SCH ×3 (09:37→18:08)
[2019-11-24] MEDS: Eliquis 2.5mg tablet ORAL SCH ×2 (09:37→18:08)
[2019-11-24] MEDS: Docusate Sod/Senna tab ORAL SCH ×2 (09:37→18:08)
[2019-11-24] MEDS: Desmopressin Nasal 5ml NASAL SCH (09:38)
--- NOTE | 2019-11-24 09:58 | Consultation ---
History of Present Illness General Date patient seen: Nov 24, 2019 Reason for Consultation: Polyuria Present Illness Allergies: Coded Allergies: No Known Allergies (Unverified , 08/15/19) Medication History Scheduled Amino Acids/Protein Hydrolys (Pro-Stat Liquid), 30 ML ORAL THREE TIMES A DAY, ( Reported) Ascorbic Acid* (Ascorbic Acid*), 500 MG ORAL DAILY, (Reported) Baclofen* (Baclofen*), 10 MG ORAL THREE TIMES A DAY, (Reported) Clonazepam* (Klonopin*), 0.5 MG ORAL TID, (Reported) Cranberry Fruit (Cranberry), 450 MG PO DAILY, (Reported) Docusate Sodium* (Docusate Sodium*), 100 MG ORAL TWICE A DAY, (Reported) Ferrous Sulfate* (Ferrous Sulfate*), 325 MG ORAL DAILY, (Reported) Gabapentin* (Gabapentin*), 400 MG ORAL THREE TIMES A DAY, (Reported) Heparin Sod (Porcine) (Heparin Sodium*), 5,000 UNITS SUBQ EVERY 12 HOURS, ( Reported) Multivitamins* (Multivitamins*), 1 TAB ORAL DAILY, (Reported) Omeprazole (Omeprazole), 20 MG ORAL TWICE A DAY, (Reported) Scheduled PRN Acetaminophen* (Acetaminophen 325MG Tablet*), 650 MG ORAL Q6H PRN for pain/fever , (Reported) Acetaminophen* (Tylenol Extra Strength*), 500 MG ORAL DAILY PRN for pain management wound care, (Reported) Hydrocodone Bit/Acetaminophen 10-325* ([place] 10-325*), 1 TAB ORAL Q6H PRN for For Pain, (Reported) Magnesium Hydroxide* (Milk Of Magnesia*), 30 ML ORAL DAILY PRN for Constipation, (Reported) Tramadol Hcl* (Ultram*), 50 MG ORAL Q6H PRN for For Pain, (Reported) Patient History Healthcare decision maker Resuscitation status Advanced Directive on File Physical Exam Last 24 Hour Vital Signs Date Time Temp Pulse Resp B/P (MAP) Pulse Ox O2 Delivery O2 Flow Rate FiO2 11/24/19 04:00 98.0 87 18 108/72 (84) 98 11/24/19 00:00 99.7 89 18 107/59 (75) 98 11/23/19 21:00 Room Air 11/23/19 20:00 99.5 85 18 117/66 (83) 98 11/23/19 16:13 97.9 62 20 113/64 (80) 95 11/23/19 12:18 97.9 66 18 104/67 (79) 95 Intake and Output 11/23/19 11/24/19 19:00 07:00 Intake Total 846.000 ml Output Total 700 ml 450 ml Balance 146.000 ml -450 ml Intake Oral 400 ml IV Total 446.000 ml Output Urine Total 700 ml 450 ml # Voids 1 # Bowel Movements 3 Height (Feet): 5 Height (Inches): 7.00 Weight (Pounds): 114 Medications Current Medications Medications (Trade) Dose Ordered Sig/Mya Route PRN Reason Start Time Stop Time Status Last Admin Dose Admin Acetaminophen (Tylenol) 650 mg Q4H PRN ORAL Mild Pain (Pain Scale 1-3) 11/05/19 14:00 11/30/19 13:59 11/21/19 20:14 Acetaminophen (Tylenol) 650 mg Q4H PRN ORAL Temp >100.5 11/05/19 16:00 12/05/19 15:59 11/22/19 19:42 Acetaminophen/ Hydrocodone Bitart ([place] 10/325) 1 tab Q4H PRN ORAL For severe Pain 11/23/19 15:00 11/30/19 14:59 11/24/19 06:10 Apixaban (Eliquis) 2.5 mg BID ORAL 11/24/19 09:00 02/22/20 08:59 11/24/19 09:37 Bisacodyl (Dulcolax) 10 mg DAILYPRN PRN RECTAL Constipation 11/24/19 07:45 02/22/20 07:44 Cefepime HCl 2 gm/ Dextrose 55 ml @ 110 mls/hr EVERY 8 HOURS IVPB 11/23/19 14:00 11/30/19 13:59 11/24/19 05:19 Chlorhexidine Gluconate (Simran-Hex 2%) 1 applic DAILY@2000 TOPIC 11/13/19 20:00 02/11/20 19:59 11/23/19 21:19 Desmopressin Acetate (Ddavp) 1 spray DAILY NASAL 11/14/19 09:00 02/07/20 17:59 11/24/19 09:38 Dextrose (Dextrose 50%) 25 ml Q30M PRN IV Hypoglycemia 11/05/19 13:30 01/21/20 17:29 Dextrose (Dextrose 50%) 50 ml Q30M PRN IV Hypoglycemia 11/05/19 13:30 01/21/20 17:29 Famotidine (Pepcid) 20 mg DAILY ORAL 11/06/19 09:00 01/28/20 09:29 11/24/19 09:37 Ferrous Sulfate (Feosol) 325 mg DAILY ORAL 11/06/19 09:00 01/22/20 08:59 11/24/19 09:37 Fludrocortisone Acetate (Florinef) 0.1 mg DAILY ORAL 11/15/19 09:00 12/15/19 08:59 11/24/19 09:37 Gabapentin (Neurontin) 400 mg Q8HR ORAL 11/05/19 14:00 12/03/19 21:59 11/24/19 06:09 Gentamicin Protocol (Gentamicin pharmacy to dose) 1 ea DAILY PRN MISC Per rx protocol 11/23/19 14:00 12/23/19 13:59 Gentamicin Sulfate 240 mg/ Sodium Chloride 116 ml @ 116 mls/hr Q24H IVPB 11/23/19 15:00 11/30/19 14:59 11/23/19 15:07 Magnesium Hydroxide (Mom) 30 ml HSPRN PRN ORAL Constipation 11/13/19 11:15 12/13/19 11:14 Midodrine (Pro-Amatine) 10 mg EVERY 8 HOURS ORAL 11/05/19 14:00 01/21/20 17:59 11/24/19 06:09 Senna/Docusate Sodium (Haley-Colace) 1 tab TWICE A DAY ORAL 11/24/19 09:00 12/24/19 08:59 11/24/19 09:37 Sodium Chloride (NaCl) 1 gm THREE TIMES A DAY ORAL 11/09/19 13:00 12/09/19 12:59 11/24/19 09:37 Vancomycin HCl (Vanco pharmacy to dose) 1 ea DAILY PRN MISC Per rx protocol 11/23/19 14:00 12/23/19 13:59 Vancomycin HCl 750 mg/Sodium Chloride 275 ml @ 183.333 mls/hr Q12HR@0600,1800 IVPB 11/24/19 06:00 11/29/19 05:59 11/24/19 06:09 Zinc Sulfate (Zinc Sulfate) 220 mg DAILY ORAL 11/06/19 09:00 01/22/20 08:59 11/24/19 09:37 Assessment/Plan Assessment/Plan: (1) Sacral decubitus ulcer (2) Paraplegia (3) Neuropathic pain seen dictated Danny Raymundo Nov 24, 2019 09:58
[2019-11-24] MEDS ORDERED: Naloxone 0.4mg/ml Inj IVP PRN (10:15)
--- NOTE | 2019-11-24 11:15 | Pulmonology Progress Note ---
Subjective ROS Limited/Unobtainable: Yes Interval Events: no fever or leucocytosis Constitutional: Reports: fever - less HEENT: Repors: no symptoms Respiratory: Reports: no symptoms Cardiovascular: Reports: no symptoms Gastrointestinal/Abdominal: Denies: nausea, vomiting, diarrhea Genitourinary: Reports: no symptoms Psychiatric: Denies: depression Skin: Denies: rash Musculoskeletal: Denies: pain Allergies: Coded Allergies: No Known Allergies (Unverified , 08/15/19) All Systems: reviewed and negative except above Objective Last 24 Hour Vital Signs Date Time Temp Pulse Resp B/P (MAP) Pulse Ox O2 Delivery O2 Flow Rate FiO2 11/24/19 04:00 98.0 87 18 108/72 (84) 98 11/24/19 00:00 99.7 89 18 107/59 (75) 98 11/23/19 21:00 Room Air 11/23/19 20:00 99.5 85 18 117/66 (83) 98 11/23/19 16:13 97.9 62 20 113/64 (80) 95 11/23/19 12:18 97.9 66 18 104/67 (79) 95 Intake and Output 11/23/19 11/24/19 19:00 07:00 Intake Total 846.000 ml Output Total 700 ml 450 ml Balance 146.000 ml -450 ml Intake Oral 400 ml IV Total 446.000 ml Output Urine Total 700 ml 450 ml # Voids 1 # Bowel Movements 3 General Appearance: no acute distress HEENT: normocephalic Respiratory: chest wall non-tender, lungs clear Cardiovascular: normal peripheral pulses, regular rhythm Abdomen: normal bowel sounds Extremities: no cyanosis Current Medications Medications (Trade) Dose Ordered Sig/Mya Route PRN Reason Start Time Stop Time Status Last Admin Dose Admin Acetaminophen (Tylenol) 650 mg Q4H PRN ORAL Mild Pain (Pain Scale 1-3) 11/05/19 14:00 11/30/19 13:59 11/21/19 20:14 Acetaminophen (Tylenol) 650 mg Q4H PRN ORAL Temp >100.5 11/05/19 16:00 12/05/19 15:59 11/22/19 19:42 Acetaminophen/ Hydrocodone Bitart ([place] 5/325) 1 tab Q6H PRN ORAL Severe Pain (Pain Scale 7-10) 11/24/19 10:00 12/01/19 09:59 Apixaban (Eliquis) 2.5 mg BID ORAL 11/24/19 09:00 02/22/20 08:59 11/24/19 09:37 Bisacodyl (Dulcolax) 10 mg DAILYPRN PRN RECTAL Constipation 11/24/19 07:45 02/22/20 07:44 Cefepime HCl 2 gm/ Dextrose 55 ml @ 110 mls/hr EVERY 8 HOURS IVPB 11/23/19 14:00 11/30/19 13:59 11/24/19 05:19 Chlorhexidine Gluconate (Simran-Hex 2%) 1 applic DAILY@2000 TOPIC 11/13/19 20:00 02/11/20 19:59 11/23/19 21:19 Desmopressin Acetate (Ddavp) 1 spray DAILY NASAL 11/14/19 09:00 02/07/20 17:59 11/24/19 09:38 Dextrose (Dextrose 50%) 25 ml Q30M PRN IV Hypoglycemia 11/05/19 13:30 01/21/20 17:29 Dextrose (Dextrose 50%) 50 ml Q30M PRN IV Hypoglycemia 11/05/19 13:30 01/21/20 17:29 Famotidine (Pepcid) 20 mg DAILY ORAL 11/06/19 09:00 01/28/20 09:29 11/24/19 09:37 Ferrous Sulfate (Feosol) 325 mg DAILY ORAL 11/06/19 09:00 01/22/20 08:59 11/24/19 09:37 Fludrocortisone Acetate (Florinef) 0.1 mg DAILY ORAL 11/15/19 09:00 12/15/19 08:59 11/24/19 09:37 Gabapentin (Neurontin) 400 mg Q8HR ORAL 11/05/19 14:00 12/03/19 21:59 11/24/19 06:09 Gentamicin Protocol (Gentamicin pharmacy to dose) 1 ea DAILY PRN MISC Per rx protocol 11/23/19 14:00 12/23/19 13:59 Gentamicin Sulfate 240 mg/ Sodium Chloride 116 ml @ 116 mls/hr Q24H IVPB 11/23/19 15:00 11/30/19 14:59 11/23/19 15:07 Linezolid (Zyvox) 600 mg Q12HR ORAL 11/24/19 11:00 11/29/19 10:59 Magnesium Hydroxide (Mom) 30 ml HSPRN PRN ORAL Constipation 11/13/19 11:15 12/13/19 11:14 Midodrine (Pro-Amatine) 10 mg EVERY 8 HOURS ORAL 11/05/19 14:00 01/21/20 17:59 11/24/19 06:09 Naloxone HCl (Narcan) 0.2 mg Q2M PRN IVP RESPRITORY DEPRESSION RR<8 11/24/19 10:15 02/22/20 10:14 Senna/Docusate Sodium (Haley-Colace) 1 tab TWICE A DAY ORAL 11/24/19 09:00 12/24/19 08:59 11/24/19 09:37 Sodium Chloride (NaCl) 1 gm THREE TIMES A DAY ORAL 11/09/19 13:00 12/09/19 12:59 11/24/19 09:37 Zinc Sulfate (Zinc Sulfate) 220 mg DAILY ORAL 11/06/19 09:00 01/22/20 08:59 11/24/19 09:37 Assessment/Plan Assessment/Plan IMPRESSION: 1. Septic shock. resolved 2. Complicated UTI with history of previous ESBL infection. 3. Paraplegia. 4. Sacral decubitus. 5. [facility] resident. DISCUSSION: DVT and GI prophylaxes. Continue Oxygen prn, doing well on room air at this time. DC planning Haily Monzon Omar Syed MD Nov 24, 2019 11:15
[2019-11-24 12:00] VITALS: BP 101/57
[2019-11-24] MEDS: HYDROcodone/Acetamin 5/325 tab ORAL PRN ×2 (12:12→18:09)
--- NOTE | 2019-11-24 13:01 | Cardiac Electrophysiology PN ---
Assessment/Plan Assessment/Plan 1. S/P Septic shock. On Midodrine, iv fluids and antibiotic via PICC line. 2. Bradycardia. Resolved. 3. Paraplegia. 4. Urinary tract infection, 5. Decubitus ulcers with sacral decubitus. 6. S/P Ileostomy/ 7. Polyuria, DI. On NS, Salt tablets Placement pending [facility] hemodialysis charge nurse Subjective Subjective Alert in NAD. No CP or SOB. Pending placement Objective Last 24 Hour Vital Signs Date Time Temp Pulse Resp B/P (MAP) Pulse Ox O2 Delivery O2 Flow Rate FiO2 11/24/19 12:00 98.9 81 18 101/57 (72) 96 11/24/19 09:00 Room Air 11/24/19 08:00 99.8 83 18 95/61 (72) 95 11/24/19 04:00 98.0 87 18 108/72 (84) 98 11/24/19 00:00 99.7 89 18 107/59 (75) 98 11/23/19 21:00 Room Air 11/23/19 20:00 99.5 85 18 117/66 (83) 98 11/23/19 16:13 97.9 62 20 113/64 (80) 95 Intake and Output 11/23/19 11/24/19 19:00 07:00 Intake Total 846.000 ml Output Total 700 ml 450 ml Balance 146.000 ml -450 ml Intake Oral 400 ml IV Total 446.000 ml Output Urine Total 700 ml 450 ml # Voids 1 # Bowel Movements 3 Objective HEAD AND NECK: No JVD. LUNGS: Coarse rhonchi. CARDIOVASCULAR: Regular S1 and S2 with no gallop. ABDOMEN: Soft.S/P Ileostomy EXTREMITIES: No pitting edema, however, has pressure ulcers. Carloz Estes MD Nov 24, 2019 13:01
--- NOTE | 2019-11-24 14:56 | Surgery Progress Note ---
Surgery Progress Note Subjective Additional Comments the ostomy and anus were disimpacted of hard stool today his diversion is really no longer diverting and stool all over wound may need revision at some point Objective Last 24 Hour Vital Signs Date Time Temp Pulse Resp B/P (MAP) Pulse Ox O2 Delivery O2 Flow Rate FiO2 11/24/19 12:00 98.9 81 18 101/57 (72) 96 11/24/19 09:00 Room Air 11/24/19 08:00 99.8 83 18 95/61 (72) 95 11/24/19 04:00 98.0 87 18 108/72 (84) 98 11/24/19 00:00 99.7 89 18 107/59 (75) 98 11/23/19 21:00 Room Air 11/23/19 20:00 99.5 85 18 117/66 (83) 98 11/23/19 16:13 97.9 62 20 113/64 (80) 95 I&O Intake and Output 11/23/19 11/24/19 19:00 07:00 Intake Total 846.000 ml Output Total 700 ml 450 ml Balance 146.000 ml -450 ml Intake Oral 400 ml IV Total 446.000 ml Output Urine Total 700 ml 450 ml # Voids 1 # Bowel Movements 3 Dressing: saturated Cardiovascular: RSR Respiratory: decreased breath sounds Abdomen: soft, non-tender, present bowel sounds Extremities: no tenderness, no cyanosis Plan Problems: (1) Abdominal distension Assessment & Plan: abd distention soft non tender ostomy viable and reduced KUB ordered pending results improved comfortable no complaints okay for diet s tolerated d/c planning much improved There is an inferior vena cava filter in place. Bowel gas pattern is unremarkable. Considerable stool is seen in the transverse and distal colon. There is extensive pelvic deformity, with loss of the left femoral head, chronic dislocation of the left femur, and extensive pelvic deformity, particularly on the left. Adi project over the upper pelvis Impression: Possible constipation. pending placement Nonobstructed bowel gas pattern. Moderate fecal retention of the ascending colon and sigmoid colon. The degree of stool burden has increased from October 25, 2019. IVC filter, incidentally noted. Partial subluxation of the right hip. Osteotomy of the proximal left femur with deformity of the bilateral pubic rami and left acetabulum, unchanged. 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 Wasta Shaped, Full Thickness Sacral Pressure Injury which extends into L ischium. (L)15.4cm x (W)18cm x (D)2.4cm, Undermining clockwise 10-2 by 7.7cm @ 11o'clock. Base of wound is moist,pink with scattered slough at base of wound. Bone is palpable at the Base. No odor or exudate noted. Scattered partial thickness wounds and Serous filled blisters noted to R trochanteric /R Hip areas. Historical scar noted to L groin, L Hip L Buttocks. Bony protrusion noted at L Hip. Full thickness Pressure Injury R Ischium(L)5.4cm x(W)6.9cm x (D)1.8cm, Undermining clockwise 1-4 by 2.7cm @2o'clock, Tunneling@7o'clock 2.9cm. Base of wound is moist pink with scattered slough. Scattered slough noted along borders. NO odor or exudate noted. Stable dry eschar noted to medial R knee 0.7cm x (W)0.4cm. Periwound is erythematous and indurated. No elevation in skin temp noted. L heel has shaved appearance secondary to Hx of Pressure Injuries. Base of heel is pale pink. Bone is palpable. Small area of slough noted within compromised area(L)0.6cm x (W)0.8cm. L Heel Also has shaved appearance with hypertrophic scarring. Base of compromised area is pale pink, Bone is palpable, with scattered loose, dry and scaly skin. Tx.Plan: Cleanse Sacral Wound and R Ischial wounds with Dakin's 0.125% gian. Loosely pack wounds with Hydrogel impregnated Kerlix. Apply Moisture Barrier Paste periwound. Cover with ABD Pads secure with Tegaderm drsg.Daily and prn. Apply Triad Paste to R Hip/R trochanteric areas.Cover with Optifoam drsg. Change every 7 days and prn. Apply Betadine to Medial R Knee. Cover with Optifoam drsg. Change every 7 days and prn. Apply Betadine to R and L Heels. Cover each Heel with Optifoam drsgs. Change every 7 days and prn. Cover Bony Prominences as needed with Optifoam drsgs. Reposition at least every 2 hours [address] tolerated[address] Pillow between knees. Off-load heels with pillow. APM/SUMI Mattress overlay DAILY ESTIMATED NEEDS: Needs based on Advanced wounds, wt loss/ 40.18kg 35-40 kcals/kg 6626-7190 total kcals 1.5-2.0 g protein/kg 60-80 g total protein 25-35ml/kcal mL/kg 5593-0647 total fluid mLs NUTRITION DIAGNOSIS: Increased kcal/prot/micronutrients needs R/T wound healing and underweight status as evidenced by pt admitted w/ multiple advanced wounds, refer to WC eval, pt now w/ further 3% unfavorable wt loss, currently BMI underweight per guidelines, @62% of [place] Body Weight. 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 There is distention of the rectum with feces, rectal diameter 70 mm. There is some thickening of the rectal wall. The appendix is not definitely visualized, but no findings to suggest acute appendicitis are evident. There is considerable stool throughout the colon. There appears to be rectal incontinence of stool despite the diverting colostomy. Cornelius Salgado Nov 24, 2019 14:56
--- NOTE | 2019-11-24 15:12 | Infectious Diseases Prog Note ---
Assessment/Plan Assessment/Plan ASSESSMENT AND PLAN: 1. hx sepsis/shock, hx proteus uti, hx esbl e.coli uti, possible aspiration pna/ hcap vs cap, sacral wound - ? infected, mrsa and vre colonization fevers, leukocytosis - new acinetobacter uti and vre uti, + urine culture CT abdomen and pelvis without acute abscess, blood cultures negative, chest x -ray - nad - gentamicin and zyvox x 7 days - wound care per surgery - s/p full abx course, sacral wound mostly red on review - communicated with Dr. Razo 2. ICU care. 3. Sacral wound -wound mostly clean, management per surgery 4. Ostomy malfunction - per surgery 5. Hypertension. 6. Paraplegia. 7. Anemia. 8. History of decubitus ulcer, rule out infection. Infectious diseases is following. The patient on antibiotics. 9. Hypertension treatment per primary care team. 10. Continue treatment per primary consultants. 11. No known drug allergies. 12. Social history is negative. 13. Family history is noncontributory. 14. MAR was noted. 15. Case discussed with RN. Subjective Constitutional: Denies: fever HEENT: Denies: congestion Respiratory: Denies: shortness of breath Cardiovascular: Denies: chest pain Gastrointestinal/Abdominal: Denies: nausea, vomiting, diarrhea Genitourinary: Reports: other - + donohue Neurologic: Denies: headache Psychiatric: Denies: depression Skin: Denies: rash Hematologic: Denies: bleeding Musculoskeletal: Denies: pain Allergies: Coded Allergies: No Known Allergies (Unverified , 08/15/19) Objective Last 24 Hour Vital Signs Date Time Temp Pulse Resp B/P (MAP) Pulse Ox O2 Delivery O2 Flow Rate FiO2 11/24/19 12:00 98.9 81 18 101/57 (72) 96 11/24/19 09:00 Room Air 11/24/19 08:00 99.8 83 18 95/61 (72) 95 11/24/19 04:00 98.0 87 18 108/72 (84) 98 11/24/19 00:00 99.7 89 18 107/59 (75) 98 11/23/19 21:00 Room Air 11/23/19 20:00 99.5 85 18 117/66 (83) 98 11/23/19 16:13 97.9 62 20 113/64 (80) 95 Height (Feet): 5 Height (Inches): 7.00 Weight (Pounds): 114 General Appearance: no acute distress HEENT: normocephalic, atraumatic, anicteric, mucous membranes moist Respiratory/Chest: lungs clear, normal breath sounds, no respiratory distress Cardiovascular: normal rate, regular rhythm, no gallop/murmur Abdomen: normal bowel sounds, soft, non tender, no organomegaly, non distended Genitourinary: other - + donohue - urine slt cloudy Extremities: no cyanosis Skin: no rash, ulcers - wounds noted - sacral wound motly red Neurologic/Psychiatric: legal editor II-XII grossly normal, alert, responsive Lymphatic: no neck adenopathy Musculoskeletal: no effusion Chest x-ray - 10/25/19 - Procedure: XRAY Chest 1v Indication: Shortness of breath Technique: One view of the chest Comparison: 10/23/2019 Findings: There are bilateral basilar infiltrates, which appear new or increased since prior study. There is some atelectasis at the left lung base as well. Right jugular central venous catheter remains. The heart size is normal. Impression: New/increased bilateral basilar infiltrates, since prior study 2019 Chest x-ray - 10/27/19 - Procedure: XRAY Chest 1v Indication: Shortness of breath Technique: One view of the chest Comparison: 10/25/2019 Findings: There is atelectasis possibly some focal consolidation at the right lung base. Atelectatic changes previously demonstrated at the left lung base have largely cleared. Right jugular central venous catheter remains. The heart size is normal. Impression: Improving left basilar atelectasis. Otherwise little belt changer 2 days findings as noted Chest x-ray - 10/29/19 - FINDINGS: Lungs: Persistent subsegmental atelectasis in bilateral lower lungs, not significant changed compared to the prior exam. No new consolidation is seen. Pleural space: Unremarkable. The costophrenic angles are sharp. No visible pneumothorax. Heart: Unremarkable. No cardiomegaly. Mediastinum: Unremarkable. Bones/joints: Unremarkable. Vasculature: Mild atherosclerotic calcifications are noted within the aortic arch. Tubes, lines and devices: Stable positioning of a right IJ central venous catheter with the tip in the SVC. Telemetry leads overlie the thorax. IMPRESSION: Persistent subsegmental atelectasis in bilateral lower lungs, not significantly changed compared to the prior exam. Chest x-rasy - 11/03/19 - Procedure: XRAY Chest 1v Indication: Cough Technique: One view of the chest Comparison: 10/29/2019 Findings: There are increased atelectatic changes at the lung bases. Interim removal of previously demonstrated central venous catheter. The pleural spaces are clear. The heart size is normal. Impression: Increasing bilateral basilar atelectasis Interim central venous catheter removal. Chest x-ray - 11/07/19 - Procedure: XRAY Chest 1v Indication: Shortness of breath Technique: One view of the chest Comparison: 11/03/2019 Findings: Bilateral basilar atelectatic changes appear similar to the previous exam. There may be some patchy left perihilar and bilateral peripheral consolidation. The heart size is normal. Impression: New or increased faint patchy peripheral and left perihilar consolidative opacities, possibly reflecting multifocal pneumonia, since prior study 03/04/2019 Persistent bilateral basilar atelectatic changes Chest x-ray - 11/09/19 - Procedure: XRAY Chest 1v Indication: Cough Technique: One view of the chest Comparison: 11/07/2019 Findings: There is improved aeration of the lung bases, although some atelectasis persists bilaterally. No new infiltrates. The pleural spaces are clear. The heart size is normal. Impression: Improved aeration with decreased basilar atelectasis Chest x-ray - 11/14/19 - Procedure: XRAY Chest 1v Indication: Cough Technique: One view of the chest Comparison: 11/09/2019 Findings: Bilateral basilar atelectasis has increased. No new infiltrates. The pleural spaces remain clear. The heart size is normal. Impression: Increased bilateral basilar atelectasis, since prior study 11/09/2019 Chest x-ray - 11/15/19 - Procedure: XRAY Chest 1v Indication: Cough Technique: One view of the chest Comparison: 11/13/2019 Findings: Again demonstrated is bilateral basilar atelectasis versus scarring. The lungs and pleural spaces are otherwise clear. The heart size is normal. Interim placement right arm PICC. Impression: No acute process Chest x-ray - 11/21/19 - Procedure: XRAY Chest 1v Indication: Shortness of breath Technique: One view of the chest Comparison: 11/15/2019 Findings: Previously demonstrated basilar atelectatic changes have cleared. Lungs and pleural spaces are currently clear. The heart size is normal. There is a right arm PICC again demonstrated Impression: No acute process CT abdomen and pelvis: Impression: Extensive decubitus changes, as described, with evidence of skin thickening, surface ulceration, deep ulceration, and likely prior skin grafting. There is also evidence of extensive bone loss. This may be due to erosive changes, postsurgical changes, or likely combination of both. No findings to suggest abscess Left lower quadrant diverting sigmoid colostomy. Considerable distal stool and evidence of rectal fecal impaction and incontinence, despite this. Rectal wall thickening could indicate stercoral proctitis Splenomegaly Inferior vena cava filter Donohue catheter and empty bladder. Some calcifications are seen surrounding the Donohue balloon Posterior pulmonary dependent atelectatic changes and possible consolidation Other findings as noted, including probable hepatic and renal cysts Microbiology Date/Time Source Procedure Growth Status 11/13/19 02:00 Blood Blood Culture - Final NO GROWTH AFTER 5 DAYS Complete 11/02/19 13:30 Nasopharynx SARS-CoV-2 RdRp Gene Assay - Final Complete 11/20/19 23:30 Indwelling Cath Urine Culture - Final Acinetobacter Baumanii - Mdr Enterococcus Faecium - Vre Complete 11/03/19 08:00 Catheter Site Catheter Tip Culture - Final Staphylococcus Sp Coag Neg Complete wbc - 7.1 hgb - 8.7 cr - 0.6 Current Medications Medications (Trade) Dose Ordered Sig/Mya Route PRN Reason Start Time Stop Time Status Last Admin Dose Admin Acetaminophen (Tylenol) 650 mg Q4H PRN ORAL Mild Pain (Pain Scale 1-3) 11/05/19 14:00 11/30/19 13:59 11/24/19 14:27 Acetaminophen (Tylenol) 650 mg Q4H PRN ORAL Temp >100.5 11/05/19 16:00 12/05/19 15:59 11/22/19 19:42 Acetaminophen/ Hydrocodone Bitart ([place] 5/325) 1 tab Q6H PRN ORAL Severe Pain (Pain Scale 7-10) 11/24/19 10:00 12/01/19 09:59 11/24/19 12:12 Apixaban (Eliquis) 2.5 mg BID ORAL 11/24/19 09:00 02/22/20 08:59 11/24/19 09:37 Bisacodyl (Dulcolax) 10 mg DAILYPRN PRN RECTAL Constipation 11/24/19 07:45 02/22/20 07:44 Cefepime HCl 2 gm/ Dextrose 55 ml @ 110 mls/hr EVERY 8 HOURS IVPB 11/23/19 14:00 11/30/19 13:59 11/24/19 14:28 Chlorhexidine Gluconate (Simran-Hex 2%) 1 applic DAILY@2000 TOPIC 11/13/19 20:00 02/11/20 19:59 11/23/19 21:19 Desmopressin Acetate (Ddavp) 1 spray DAILY NASAL 11/14/19 09:00 02/07/20 17:59 11/24/19 09:38 Dextrose (Dextrose 50%) 25 ml Q30M PRN IV Hypoglycemia 11/05/19 13:30 01/21/20 17:29 Dextrose (Dextrose 50%) 50 ml Q30M PRN IV Hypoglycemia 11/05/19 13:30 01/21/20 17:29 Famotidine (Pepcid) 20 mg DAILY ORAL 11/06/19 09:00 01/28/20 09:29 11/24/19 09:37 Ferrous Sulfate (Feosol) 325 mg DAILY ORAL 11/06/19 09:00 01/22/20 08:59 11/24/19 09:37 Fludrocortisone Acetate (Florinef) 0.1 mg DAILY ORAL 11/15/19 09:00 12/15/19 08:59 11/24/19 09:37 Gabapentin (Neurontin) 400 mg Q8HR ORAL 11/05/19 14:00 12/03/19 21:59 11/24/19 14:28 Gentamicin Protocol (Gentamicin pharmacy to dose) 1 ea DAILY PRN MISC Per rx protocol 11/23/19 14:00 12/23/19 13:59 Gentamicin Sulfate 240 mg/ Sodium Chloride 116 ml @ 116 mls/hr Q24H IVPB 11/23/19 15:00 11/30/19 14:59 11/23/19 15:07 Linezolid (Zyvox) 600 mg Q12HR ORAL 11/24/19 11:00 11/29/19 10:59 11/24/19 12:12 Magnesium Hydroxide (Mom) 30 ml HSPRN PRN ORAL Constipation 11/13/19 11:15 12/13/19 11:14 Midodrine (Pro-Amatine) 10 mg EVERY 8 HOURS ORAL 11/05/19 14:00 01/21/20 17:59 11/24/19 14:27 Naloxone HCl (Narcan) 0.2 mg Q2M PRN IVP RESPRITORY DEPRESSION RR<8 11/24/19 10:15 02/22/20 10:14 Senna/Docusate Sodium (Haley-Colace) 1 tab TWICE A DAY ORAL 11/24/19 09:00 12/24/19 08:59 11/24/19 09:37 Sodium Chloride (NaCl) 1 gm THREE TIMES A DAY ORAL 11/09/19 13:00 12/09/19 12:59 11/24/19 09:37 Zinc Sulfate (Zinc Sulfate) 220 mg DAILY ORAL 11/06/19 09:00 01/22/20 08:59 11/24/19 09:37 Sharif Painting MD Nov 24, 2019 15:12
[2019-11-24 16:00] VITALS: BP 98/63
[2019-11-24] MEDS: GENTAMICIN IVPB SCH (16:20)
[2019-11-24] MEDS: NS IVPB SCH (16:20)
--- NOTE | 2019-11-24 17:15 | Consultation ---
DATE OF CONSULTATION: 11/24/2019 PAIN MANAGEMENT CONSULTATION CONSULTING PHYSICIAN: Renan Celaya MD. REFERRING PHYSICIAN: Dr. Razo and Thalia Marx MD. PHYSICIAN RENTAL CLERK: WILMA Bradshaw. CHIEF COMPLAINT: Sacral decubitus ulcer. HISTORY OF PRESENT ILLNESS: This is a 59-year-old male who has been seen on the Med/Surg floor of [facility] for initial pain management. The patient was admitted under care of Dr. Marx due to sepsis, has long history of paraplegia, sacral decubitus ulcer, ESBL multiresistant drug UTI, hypotension, confusion, altered, and was admitted into ICU, now on the medical/surgical floor. He has been getting Arlee 10/325 mg one tablet every four hours as needed for pain. We were requested so that the patient would have adequate pain control while here in the hospital. At this time, the patient is in bed, no signs pain or distress. Denies any pain. He is comfortable, [place] speaking, and being interpreted. PAST MEDICAL HISTORY: Again, paraplegia, sacral decubitus ulcer, femur fracture, hyponatremia, UTI, acute kidney injury, ileostomy prolapse, hypokalemia, encephalopathy, drug resistant UTI, again sepsis, hypertension. SOCIAL HISTORY: Denies smoking tobacco, drinking alcohol, or drug use. ALLERGIES: No known drug allergies. MEDICATIONS: Pro-Stat, ascorbic acid, baclofen, Klonopin, cranberry, docusate, ferrous sulfate, gabapentin, heparin, multivitamin, omeprazole, Tylenol, Arlee, and Ultram. REVIEW OF SYSTEMS: Denies rash, fever, chills, sweating, dizziness, drowsiness, blurred vision, sore throat, or change in weight. No shortness of breath or chest pain. No nausea, vomiting, diarrhea, blood in stool or urine. PHYSICAL EXAMINATION: GENERAL: Alert, awake, and oriented. VITAL SIGNS: Blood pressure 108/72, heart rate 87, oxygen saturation 98%, respirations 18, temperature 98 degrees Fahrenheit. HEENT: PERRLA. NECK: Range of motion is full in all directions. No tenderness to paracervical muscles. No adenopathy. LUNGS: Decreased breath sounds bilaterally. HEART: S1, S2 regular. ABDOMEN: Colostomy bag noted. BACK: Range of motion is decreased in flexion and extension. EXTREMITIES: Upper and lower extremity range of motion is decreased due to the patient's condition. Contracture is noted. Sensory is reduced. Reflexes are not obtainable. No adenopathy. ASSESSMENT AND PLAN: This is a 59-year-old male with paraplegia, sacral decubitus ulcer, neuropathic pain. Patient will be decreased to Arlee 5/325 mg one tablet every 6 hours as needed for severe pain. Continue gabapentin. The patient was discussed with Dr. Celaya and Dr. Celaya concurred. We will follow up with the patient. Thank you very much for the courtesy of this consultation. Renan Celaya M.D. WILMA Bradshaw DR: Daya JOB#: [id number] CC: [email or web address]
--- NOTE | 2019-11-24 18:36 | Nephrology Progress Note ---
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 - improved with desmporessin #Shock #UTI # infected sacral pressure ulcer #Acute metabolic encephalopathy #Paraplegia #Sacral pressure ulcer #Hypokalemia #Anemia - continue florinef 0.1mg daily -Continue desmopressin nasal - continue salt tabs 1g TID - continue midodrine 10 TID - endocrine eval noted - r/o adrenal insuffiency - antibiotics per ID - monitor lytes - avoid nephrotoxins - daily weights - strict I&Os time spent 40 min- greater than 50% on care coordination and counseling Subjective ROS Limited/Unobtainable: Yes Subjective UOP 1300 yesteday refusing lab added florinef 0.1mg daily Bp soft on nasal desmopressin on salt tabs Objective Objective Last 24 Hour Vital Signs Date Time Temp Pulse Resp B/P (MAP) Pulse Ox O2 Delivery O2 Flow Rate FiO2 11/24/19 16:00 97.4 81 18 98/63 (75) 95 11/24/19 12:00 98.9 81 18 101/57 (72) 96 11/24/19 09:00 Room Air 11/24/19 08:00 99.8 83 18 95/61 (72) 95 11/24/19 04:00 98.0 87 18 108/72 (84) 98 11/24/19 00:00 99.7 89 18 107/59 (75) 98 11/23/19 21:00 Room Air 11/23/19 20:00 99.5 85 18 117/66 (83) 98 Intake and Output 11/23/19 11/24/19 19:00 07:00 Intake Total 846.000 ml Output Total 700 ml 450 ml Balance 146.000 ml -450 ml Intake Oral 400 ml IV Total 446.000 ml Output Urine Total 700 ml 450 ml # Voids 1 # Bowel Movements 3 Height (Feet): 5 Height (Inches): 7.00 Weight (Pounds): 114 Sienna Georges M.D. Nov 24, 2019 18:36
[2019-11-24 20:00] VITALS: BP 93/55
[2019-11-24] MEDS: Polymyxin B Sulfate 500,000 units in D5W 550ml IV SCH (20:41)
[2019-11-24] MEDS: Dyna-Hex 2% Top Sol 2oz TOPIC SCH (20:42)
[2019-11-25] VITALS: BP 101/68
[2019-11-25] MEDS: HYDROcodone/Acetamin 5/325 tab ORAL PRN ×4 (00:03→22:11)
[2019-11-25 04:00] VITALS: BP 130/56
[2019-11-25] MEDS: Midodrine 10mg tab ORAL SCH ×3 (05:41→21:23)
--- NOTE | 2019-11-25 06:51 | Pulmonology Progress Note ---
Subjective ROS Limited/Unobtainable: Yes Interval Events: no fever or leucocytosis Constitutional: Denies: fever HEENT: Repors: no symptoms Respiratory: Reports: no symptoms Cardiovascular: Reports: no symptoms Gastrointestinal/Abdominal: Denies: nausea, vomiting, diarrhea Genitourinary: Reports: no symptoms Psychiatric: Denies: depression Skin: Denies: rash Musculoskeletal: Denies: pain Allergies: Coded Allergies: No Known Allergies (Unverified , 08/15/19) All Systems: reviewed and negative except above Objective Last 24 Hour Vital Signs Date Time Temp Pulse Resp B/P (MAP) Pulse Ox O2 Delivery O2 Flow Rate FiO2 11/25/19 04:45 99.9 11/25/19 04:00 100.5 76 18 130/56 (80) 98 11/25/19 00:33 98.1 11/25/19 00:00 96.8 77 20 101/68 (79) 97 11/24/19 21:00 Room Air 11/24/19 20:00 98.1 55 18 93/55 (68) 98 11/24/19 16:00 97.4 81 18 98/63 (75) 95 11/24/19 12:00 98.9 81 18 101/57 (72) 96 11/24/19 09:00 Room Air 11/24/19 08:00 99.8 83 18 95/61 (72) 95 Intake and Output 11/24/19 11/25/19 19:00 07:00 Intake Total 500 ml Output Total 800 ml 1100 ml Balance -800 ml -600 ml Other 500 ml Output Urine Total 800 ml 1100 ml # Bowel Movements 1 General Appearance: no acute distress HEENT: normocephalic Respiratory: chest wall non-tender, lungs clear Cardiovascular: normal peripheral pulses, regular rhythm Abdomen: normal bowel sounds Extremities: no cyanosis Current Medications Medications (Trade) Dose Ordered Sig/Mya Route PRN Reason Start Time Stop Time Status Last Admin Dose Admin Acetaminophen (Tylenol) 650 mg Q4H PRN ORAL Mild Pain (Pain Scale 1-3) 11/05/19 14:00 11/30/19 13:59 11/24/19 14:27 Acetaminophen (Tylenol) 650 mg Q4H PRN ORAL Temp >100.5 11/05/19 16:00 12/05/19 15:59 11/25/19 04:15 Acetaminophen/ Hydrocodone Bitart ([place] 5/325) 1 tab Q6H PRN ORAL Severe Pain (Pain Scale 7-10) 11/24/19 10:00 12/01/19 09:59 11/25/19 06:35 Apixaban (Eliquis) 2.5 mg BID ORAL 11/24/19 09:00 02/22/20 08:59 11/24/19 18:08 Bisacodyl (Dulcolax) 10 mg DAILYPRN PRN RECTAL Constipation 11/24/19 07:45 02/22/20 07:44 Chlorhexidine Gluconate (Simran-Hex 2%) 1 applic DAILY@2000 TOPIC 11/13/19 20:00 02/11/20 19:59 11/24/19 20:42 Desmopressin Acetate (Ddavp) 1 spray DAILY NASAL 11/14/19 09:00 02/07/20 17:59 11/24/19 09:38 Dextrose (Dextrose 50%) 25 ml Q30M PRN IV Hypoglycemia 11/05/19 13:30 01/21/20 17:29 Dextrose (Dextrose 50%) 50 ml Q30M PRN IV Hypoglycemia 11/05/19 13:30 01/21/20 17:29 Famotidine (Pepcid) 20 mg DAILY ORAL 11/06/19 09:00 01/28/20 09:29 11/24/19 09:37 Ferrous Sulfate (Feosol) 325 mg DAILY ORAL 11/06/19 09:00 01/22/20 08:59 11/24/19 09:37 Fludrocortisone Acetate (Florinef) 0.1 mg DAILY ORAL 11/15/19 09:00 12/15/19 08:59 11/24/19 09:37 Gabapentin (Neurontin) 400 mg Q8HR ORAL 11/05/19 14:00 12/03/19 21:59 11/25/19 05:41 Linezolid (Zyvox) 600 mg Q12HR ORAL 11/24/19 11:00 11/29/19 10:59 11/24/19 20:42 Magnesium Hydroxide (Mom) 30 ml HSPRN PRN ORAL Constipation 11/13/19 11:15 12/13/19 11:14 Midodrine (Pro-Amatine) 10 mg EVERY 8 HOURS ORAL 11/05/19 14:00 01/21/20 17:59 11/25/19 05:41 Naloxone HCl (Narcan) 0.2 mg Q2M PRN IVP RESPRITORY DEPRESSION RR<8 11/24/19 10:15 02/22/20 10:14 Polymyxin B Sulfate [id number] units/Dextrose 550 ml @ 550 mls/hr EVERY 12 HOURS IV 11/24/19 21:00 12/01/19 20:59 11/24/19 20:41 Senna/Docusate Sodium (Haley-Colace) 1 tab TWICE A DAY ORAL 11/24/19 09:00 12/24/19 08:59 11/24/19 18:08 Sodium Chloride (NaCl) 1 gm THREE TIMES A DAY ORAL 11/09/19 13:00 12/09/19 12:59 11/24/19 18:08 Zinc Sulfate (Zinc Sulfate) 220 mg DAILY ORAL 11/06/19 09:00 01/22/20 08:59 11/24/19 09:37 Assessment/Plan Assessment/Plan IMPRESSION: 1. Septic shock. resolved 2. Complicated UTI with history of previous ESBL infection. 3. Paraplegia. 4. Sacral decubitus. 5. custodial resident. DISCUSSION: DVT and GI prophylaxes. Continue Oxygen prn, doing well on room air at this time. DC planning Haily Monzon Omar Syed MD Nov 25, 2019 06:51
--- NOTE | 2019-11-25 07:58 | General Progress Note ---
Assessment/Plan Status: stable Assessment/Plan: 59 year old man who presents from [facility] with weakness, encephalopathy, concern for septic shock, possible from UTI. #Acute Left Popliteal DVT -Pt has IVC filter -D/w Heme, start eliquis 2.5 BID -monitor for signs of bleeding -d/c HSQ ppx given pt on eliquis #Stool Impaction -seen on CT abd on 11/22/2019 -Docusate-senna daily -PRN dulcolax #Fever #Septic shock- resolved #Proteus UTI #Actinobacter UTI, GPC UTI #Acute metabolic encephalopathy - resolved #Paraplegia #Sacral pressure ulcer, present on admit - Periods of hypotension and fever through hospitalization, VSS now - BC & CXR wnl - Covid 19 - negative - S/p vancomycin, cefepime, and flagyl - UCx on 11/19 positive for actinobacter and GPC - Spoke with surgery, reviewed CT findings, sacral pressure ulcer does not appear to be infected, ct findings consistent w/sacral ulcer - Cont Local wound care and offloading - Fever 101.7 on 11/20, repeat BCx ordered however pt refused labs - 10/20 CXR w/no acute process - fever 100.5 on 11/24, repeat BCx and labs ordered, d/w RN and ID, OK to draw from PICC line - Appreciate ID consult - on meropenum --> gentamicin and zosyn #Sacral Decubitius Ulcer -CT abd/pel on 11/22/19 w/ subcutaneous gas -d/w with surgery, reviewed CT findings, sacral pressure ulcer does not appear to be infected, ct findings consistent w/sacral ulcer -wound care daily -appreciate wound care recs -abd per ID #Fungal UTI - resolved, s/p treatment - Patient is high risk for fungemia - Diflucan 11/16 - 11/23 -Appreciate ID Consult #Sinus Bradycardia - resolved -continue telemetry -EP following 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 -Evaluated by endocrine for adrenal insufficiency -AM cortisol normal however patient continues to have labile BP and hyponatremia - Appreciate Nephrology consult - Appreciate Endocrine consult - Will continue Florinef, Salt Tab, and DDAVP - Continue Midodrine given labile BP - CT Brain without masses noted, will defer MRI - Refusing labs periodically #Hyponatremia #Hypokalemia -improving -Intermittently refusing labs -Replete when necessary -On DDAVP intranasal #Anemia, acute on chronic -2 units RBC 10/28 -Hematology following, no signs of overt bleeding - Continue Iron tab - Keep Hb >7 #Chronic Lower extremity pain Likely 2' contractures and prior accident - Gabapentin, [place], Baclofen FEN: Eliquis 2.5 BID Jevity TF #Dispo - Awaiting SNF bed placement. Appreciate referrals placed by CM. I spent 36 minutes on this patient's care today, and 24 mins was dedicated to counseling and care coordination. D/w RN, ID. Time of note doesn't reflect time of encounter. Subjective Allergies: Coded Allergies: No Known Allergies (Unverified , 08/15/19) Subjective Tmax 100.5 overnight. Pt cont to refuse blood work, explained to pt medical needs and pt cont to express he does not want any blood draws. Pt currently denies f/c, n/v, CP, SOB, abd pain at this time. Pending placement due to insurance. Objective Last 24 Hour Vital Signs Date Time Temp Pulse Resp B/P (MAP) Pulse Ox O2 Delivery O2 Flow Rate FiO2 11/25/19 07:05 98.6 11/25/19 04:45 99.9 11/25/19 04:00 100.5 76 18 130/56 (80) 98 11/25/19 00:00 96.8 77 20 101/68 (79) 97 11/24/19 21:00 Room Air 11/24/19 20:00 98.1 55 18 93/55 (68) 98 11/24/19 16:00 97.4 81 18 98/63 (75) 95 11/24/19 12:00 98.9 81 18 101/57 (72) 96 11/24/19 09:00 Room Air 11/24/19 08:00 99.8 83 18 95/61 (72) 95 Intake and Output 11/24/19 11/25/19 19:00 07:00 Intake Total 500 ml Output Total 800 ml 1100 ml Balance -800 ml -600 ml Other 500 ml Output Urine Total 800 ml 1100 ml # Bowel Movements 1 Height (Feet): 5 Height (Inches): 7.00 Weight (Pounds): 114 Objective General Appearance: no apparent distress, alert, sitting up in bed comfortably HEENT: NCAT, EOMI, MMM Neck: non-tender, supple Cardiovascular: normal rate, regular rhythm Respiratory/Chest: chest wall non-tender, normal breath sounds Abdomen: normal bowel sounds, non tender, soft, Colostomy in place w/brown stool c/d/i, PEG c/d/i Extremities: contractures in b/l lower extremity 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 Nov 25, 2019 07:58
[2019-11-25 08:00] VITALS: BP 135/68
--- NOTE | 2019-11-25 09:18 | Diagnostic Imaging Report ---
EXAM: XR Chest, 1 View CLINICAL HISTORY: INFECT TECHNIQUE: Frontal view of the chest. COMPARISON: 11/21/19 FINDINGS: Lungs: There are mild bilateral lower lobe infiltrates consistent with nonspecific pneumonia. Pleural space: Unremarkable. No pneumothorax. Heart: Unremarkable. No cardiomegaly. Mediastinum: Unremarkable. Bones/joints: Unremarkable. Tubes, lines and devices: There is a right-sided PICC line in good position. IMPRESSION: There are mild bilateral lower lobe infiltrates consistent with nonspecific pneumonia.
[2019-11-25] MEDS: Polymyxin B Sulfate 500,000 units in D5W 550ml IV SCH ×2 (09:44→21:23)
[2019-11-25] MEDS: Zinc Sulfate 220mg ORAL SCH (09:44)
[2019-11-25] MEDS: Docusate Sod/Senna tab ORAL SCH ×2 (09:45→17:58)
[2019-11-25] MEDS: Eliquis 2.5mg tablet ORAL SCH ×2 (09:45→17:58)
[2019-11-25] MEDS: Sodium Chloride 1gm Tab ORAL SCH ×3 (09:45→17:58)
[2019-11-25] MEDS: Desmopressin Nasal 5ml NASAL SCH (09:46)
[2019-11-25 10:44] LABS: BASOPHILS % (AUTO) 1.1 % (0.0-2.0); EOSINOPHILS % (AUTO) 1.5 % (0.0-3.0); HEMATOCRIT 25.6 % (42.0-52.0); LYMPHOCYTES % (AUTO) 25.4 % (20.0-45.0); MEAN CORPUSCULAR VOLUME 84 FL (80-99); MONOCYTES % (AUTO) 8.4 % (1.0-10.0); NEUTROPHILS % (AUTO) 63.6 % (45.0-75.0); PLATELET COUNT 376 K/UL (150-450); RED BLOOD COUNT 3.04 M/UL (4.70-6.10); RED CELL DISTRIBUTION WIDTH 15.6 % (11.6-14.8); WHITE BLOOD COUNT 8.8 K/UL (4.8-10.8)
[2019-11-25 10:56] LABS: ANION GAP 9 mmol/L (5-15); BLOOD UREA NITROGEN 14 mg/dL (7-18); CALCIUM 9.7 MG/DL (8.5-10.1); CARBON DIOXIDE 28 MMOL/L (21-32); CHLORIDE 101 MMOL/L (98-107); CREATININE 0.6 MG/DL (0.55-1.30); POTASSIUM 3.8 MMOL/L (3.5-5.1); SODIUM 138 MMOL/L (136-145)
[2019-11-25 12:00] VITALS: BP 93/54
--- NOTE | 2019-11-25 12:40 | Surgery Progress Note ---
Surgery Progress Note Subjective Additional Comments still with low grade fevers bm from ostomy again now Objective Last 24 Hour Vital Signs Date Time Temp Pulse Resp B/P (MAP) Pulse Ox O2 Delivery O2 Flow Rate FiO2 11/25/19 09:00 Room Air 11/25/19 08:00 99.4 78 18 135/68 (90) 99 11/25/19 07:05 98.6 11/25/19 04:45 99.9 11/25/19 04:00 100.5 76 18 130/56 (80) 98 11/25/19 00:00 96.8 77 20 101/68 (79) 97 11/24/19 21:00 Room Air 11/24/19 20:00 98.1 55 18 93/55 (68) 98 11/24/19 16:00 97.4 81 18 98/63 (75) 95 I&O Intake and Output 11/24/19 11/25/19 19:00 07:00 Intake Total 500 ml Output Total 800 ml 1100 ml Balance -800 ml -600 ml Other 500 ml Output Urine Total 800 ml 1100 ml # Bowel Movements 1 Dressing: saturated Cardiovascular: RSR Respiratory: decreased breath sounds Abdomen: soft, non-tender, present bowel sounds Extremities: no cyanosis, other Laboratory Tests Test 11/25/19 09:45 White Blood Count 8.8 K/UL (4.8-10.8) Red Blood Count 3.04 M/UL (4.70-6.10) L Hemoglobin 8.0 G/DL (14.2-18.0) L Hematocrit 25.6 % (42.0-52.0) L Mean Corpuscular Volume 84 FL (80-99) Mean Corpuscular Hemoglobin 26.4 PG (27.0-31.0) L Mean Corpuscular Hemoglobin Concent 31.5 G/DL (32.0-36.0) L Red Cell Distribution Width 15.6 % (11.6-14.8) H Platelet Count 376 K/UL (150-450) Mean Platelet Volume 4.6 FL (6.5-10.1) L Neutrophils (%) (Auto) 63.6 % (45.0-75.0) Lymphocytes (%) (Auto) 25.4 % (20.0-45.0) Monocytes (%) (Auto) 8.4 % (1.0-10.0) Eosinophils (%) (Auto) 1.5 % (0.0-3.0) Basophils (%) (Auto) 1.1 % (0.0-2.0) Sodium Level 138 MMOL/L (136-145) Potassium Level 3.8 MMOL/L (3.5-5.1) Chloride Level 101 MMOL/L (98-107) Carbon Dioxide Level 28 MMOL/L (21-32) Anion Gap 9 mmol/L (5-15) Blood Urea Nitrogen 14 mg/dL (7-18) Creatinine 0.6 MG/DL (0.55-1.30) Estimat Glomerular Filtration Rate > 60 mL/min (>60) Glucose Level 111 MG/DL (74-106) H Calcium Level 9.7 MG/DL (8.5-10.1) Plan Problems: (1) Abdominal distension Assessment & Plan: abd distention soft non tender ostomy viable and reduced KUB ordered pending results improved comfortable no complaints okay for diet s tolerated d/c planning much improved There is an inferior vena cava filter in place. Bowel gas pattern is unremarkable. Considerable stool is seen in the transverse and distal colon. There is extensive pelvic deformity, with loss of the left femoral head, chronic dislocation of the left femur, and extensive pelvic deformity, particularly on the left. Adi project over the upper pelvis Impression: Possible constipation. pending placement Nonobstructed bowel gas pattern. Moderate fecal retention of the ascending colon and sigmoid colon. The degree of stool burden has increased from October 25, 2019. IVC filter, incidentally noted. Partial subluxation of the right hip. Osteotomy of the proximal left femur with deformity of the bilateral pubic rami and left acetabulum, unchanged. 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 [place] Shaped, Full Thickness Sacral Pressure Injury which extends into L ischium. (L)15.4cm x (W)18cm x (D)2.4cm, Undermining clockwise 10-2 by 7.7cm @ 11o'clock. Base of wound is moist,pink with scattered slough at base of wound. Bone is palpable at the Base. No odor or exudate noted. Scattered partial thickness wounds and Serous filled blisters noted to R trochanteric /R Hip areas. Historical scar noted to L groin, L Hip L Buttocks. Bony protrusion noted at L Hip. Full thickness Pressure Injury R Ischium(L)5.4cm x(W)6.9cm x (D)1.8cm, Undermining clockwise 1-4 by 2.7cm @2o'clock, Tunneling@7o'clock 2.9cm. Base of wound is moist pink with scattered slough. Scattered slough noted along borders. NO odor or exudate noted. Stable dry eschar noted to medial R knee 0.7cm x (W)0.4cm. Periwound is erythematous and indurated. No elevation in skin temp noted. L heel has shaved appearance secondary to Hx of Pressure Injuries. Base of heel is pale pink. Bone is palpable. Small area of slough noted within compromised area(L)0.6cm x (W)0.8cm. L Heel Also has shaved appearance with hypertrophic scarring. Base of compromised area is pale pink, Bone is palpable, with scattered loose, dry and scaly skin. Tx.Plan: Cleanse Sacral Wound and R Ischial wounds with Dakin's 0.125% gian. Loosely pack wounds with Hydrogel impregnated Kerlix. Apply Moisture Barrier Paste periwound. Cover with ABD Pads secure with Tegaderm drsg.Daily and prn. Apply Triad Paste to R Hip/R trochanteric areas.Cover with Optifoam drsg. Change every 7 days and prn. Apply Betadine to Medial R Knee. Cover with Optifoam drsg. Change every 7 days and prn. Apply Betadine to R and L Heels. Cover each Heel with Optifoam drsgs. Change every 7 days and prn. Cover Bony Prominences as needed with Optifoam drsgs. Reposition at least every [address] Pillow between knees. Off-load heels with pillow. APM/SUMI Mattress overlay DAILY ESTIMATED NEEDS: Needs based on Advanced wounds, wt loss/ 40.18kg 35-40 kcals/kg 2351-8318 total kcals 1.5-2.0 g protein/kg 60-80 g total protein 25-35ml/kcal mL/kg 8988-9433 total fluid mLs NUTRITION DIAGNOSIS: Increased kcal/prot/micronutrients needs R/T wound healing and underweight status as evidenced by pt admitted w/ multiple advanced wounds, refer to WC eval, pt now w/ further 3% unfavorable wt loss, currently BMI underweight per guidelines, @62% of [place] Body Weight. 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 There is distention of the rectum with feces, rectal diameter 70 mm. There is some thickening of the rectal wall. The appendix is not definitely visualized, but no findings to suggest acute appendicitis are evident. There is considerable stool throughout the colon. There appears to be rectal incontinence of stool despite the diverting colostomy. Cornelius Salgado Nov 25, 2019 12:40
--- NOTE | 2019-11-25 15:49 | Cardiac Electrophysiology PN ---
Assessment/Plan Assessment/Plan 1. S/P Septic shock. Resolved with Midodrine, iv fluids and antibiotic 2. Bradycardia. Resolved. 3. Paraplegia. 4. Urinary tract infection, 5. Decubitus ulcers with sacral decubitus. 6. S/P Ileostomy/ 7. Polyuria, DI. On NS, Salt tablets Placement pending Subjective Subjective Alert in NAD. Pending placement Objective Last 24 Hour Vital Signs Date Time Temp Pulse Resp B/P (MAP) Pulse Ox O2 Delivery O2 Flow Rate FiO2 11/25/19 12:00 98.1 63 18 93/54 (67) 95 11/25/19 09:00 Room Air 11/25/19 08:00 99.4 78 18 135/68 (90) 99 11/25/19 07:05 98.6 11/25/19 04:45 99.9 11/25/19 04:00 100.5 76 18 130/56 (80) 98 11/25/19 00:00 96.8 77 20 101/68 (79) 97 11/24/19 21:00 Room Air 11/24/19 20:00 98.1 55 18 93/55 (68) 98 11/24/19 16:00 97.4 81 18 98/63 (75) 95 Intake and Output 11/24/19 11/25/19 19:00 07:00 Intake Total 500 ml Output Total 800 ml 1100 ml Balance -800 ml -600 ml Other 500 ml Output Urine Total 800 ml 1100 ml # Bowel Movements 1 Laboratory Tests Test 11/25/19 09:45 White Blood Count 8.8 K/UL (4.8-10.8) Red Blood Count 3.04 M/UL (4.70-6.10) L Hemoglobin 8.0 G/DL (14.2-18.0) L Hematocrit 25.6 % (42.0-52.0) L Mean Corpuscular Volume 84 FL (80-99) Mean Corpuscular Hemoglobin 26.4 PG (27.0-31.0) L Mean Corpuscular Hemoglobin Concent 31.5 G/DL (32.0-36.0) L Red Cell Distribution Width 15.6 % (11.6-14.8) H Platelet Count 376 K/UL (150-450) Mean Platelet Volume 4.6 FL (6.5-10.1) L Neutrophils (%) (Auto) 63.6 % (45.0-75.0) Lymphocytes (%) (Auto) 25.4 % (20.0-45.0) Monocytes (%) (Auto) 8.4 % (1.0-10.0) Eosinophils (%) (Auto) 1.5 % (0.0-3.0) Basophils (%) (Auto) 1.1 % (0.0-2.0) Sodium Level 138 MMOL/L (136-145) Potassium Level 3.8 MMOL/L (3.5-5.1) Chloride Level 101 MMOL/L (98-107) Carbon Dioxide Level 28 MMOL/L (21-32) Anion Gap 9 mmol/L (5-15) Blood Urea Nitrogen 14 mg/dL (7-18) Creatinine 0.6 MG/DL (0.55-1.30) Estimat Glomerular Filtration Rate > 60 mL/min (>60) Glucose Level 111 MG/DL (74-106) H Calcium Level 9.7 MG/DL (8.5-10.1) Objective HEAD AND NECK: No JVD. LUNGS: Coarse rhonchi. CARDIOVASCULAR: Regular S1 and S2 with no gallop. ABDOMEN: Soft.S/P Ileostomy EXTREMITIES: No pitting edema, however, has pressure ulcers. Carloz Estes MD Nov 25, 2019 15:49
[2019-11-25 16:00] VITALS: BP 128/72
[2019-11-25 20:00] VITALS: BP 103/53
[2019-11-25] MEDS: Dyna-Hex 2% Top Sol 2oz TOPIC SCH (20:34)
[2019-11-26] VITALS: BP 90/60
[2019-11-26 04:00] VITALS: BP 109/57
[2019-11-26] MEDS: Midodrine 10mg tab ORAL SCH ×3 (05:53→21:53)
[2019-11-26] MEDS: HYDROcodone/Acetamin 5/325 tab ORAL PRN ×3 (07:24→18:17)
--- NOTE | 2019-11-26 07:27 | Hematology/Onc Progress Note ---
Assessment/Plan Assessment/Plan # Acute left upstream popliteal vein deep venous thrombosis IVC filter in place --> given acute nature, will continue eliquis --> HOWEVER, if drop in h/h consider to hold eliquis as has ivc in place --> IVC Filter placed earlier # Anemia rule out gi bleed, as well as iron deficiency --> hgb 8.2-->7.2-->7.1->6.9-->8.6-->8.3-->9.3-->8.3-->9.3--.9.2->8.7 --> anemia panel ordered--> cw acd --> occult blood pending-->neg --> gi eval prn --> transfuse as needed --> transfuse 2 units 10/27 --> po iron to continue # Coagulopathy with elev ptt/inr --> vitk and ffp as needed --> no bleeding noted at this time # Thrombocytosis likely reactive process --> plt 398-->608-->605 --> abx as needed # Sepsis due to uti, with Hypotension likely due to septic shock. Was diuresing heavily at 300 mL an hour. --> Continue on midodrine and dopamine. --> ABX vancomycin and meropenem and amikacin-->christel/vanc/difluc-->vanc/ linezolid --> before requires pressors --> as per cards # Bradycardia. --> per cards # Paraplegia. # LLQ colostomy # Decubitus ulcers with sacral decubitus. # Dvt eliquis Appreciate consultation and chandrakant RN Subjective HEENT: Denies: no symptoms, eye pain, blurred vision, tearing, double vision, ear pain, ear discharge, nose pain, nose congestion, throat pain, throat swelling, mouth pain, mouth swelling, other Cardiovascular: Denies: no symptoms, chest pain, edema, irregular heart rate, lightheadedness, palpitations, syncope, other Respiratory: Denies: no symptoms, cough, shortness of breath, SOB with excertion, SOB at rest, sputum, wheezing, other Neurologic/Psychiatric: Denies: no symptoms, anxiety, depressed, emotional problems, headache, numbness, paresthesia, pre-existing deficit, seizure, tingling, tremors, weakness, other Endocrine: Denies: no symptoms, excessive sweating, flushing, intolerance to cold, intolerance to heat, increased hunger, increased thirst, increased urine, unexplained weight gain, unexplained weight loss, other Hematologic/Lymphatic: Denies: no symptoms, anemia, easy bleeding, easy bruising, adenopathy, other Allergies: Coded Allergies: No Known Allergies (Unverified , 08/15/19) Subjective 10/27 labs again refused this am, yesterday was low, chandrakant england in icu 10/28 remains in icu, for 2units prbc this am, chandrakant rn, no other events 10/29 s/p prbc, tolerated it well, no bleeding, on 1mcg levo, in icu 10/30 on abx, on levo and overnight no other events, chandrakant [facility] rn\ 10/31 wounds improved, labs noted, no bleeding, hgb lower, refusing care/wound care 11/01 labs noted, no bleeding, no hematochezia, no hemoptysis, cbc ordered 11/02 meds reviewed, labs noted, no bleeding, chandrakant england, no major changes, hgb 8.3 11/04 labs have been noted, no bleeding, meds reviewed, no hemolysis 11/05 functional colostomy llq, no bleeding, cbc is pending for am 11/06 labs have been refused, hgb 8.3, no bleeding, wbc is higher in am 11/07 labs have initially been refused, no bleeding in am, wbc 13, on abx 11/08 labs reviewed, no bleeding, chandrakant england, cbc is pending for am 11/09 is on vanc/difl/christel, no other changes, cbc and bmp are noted 11/11 has been asymptomatic, eating breakfast, hgb 9.3, on abx 11/12 labs are noted, no bleeding, chandrakant england, no major changes, abx 11/13 is currently on christel and vanc, chandrakant england, no major bleeding, on hep sq 11/14 labs are noted, does not want to be changed currently, cbc/bmp ordered 11/15 labs reviewed, c/o pain at picc line, no bleeding, meds noted, hgb 8.7 11/16 labs are noted, has been cleared, for dc planning to snf 11/[address], no bleeding, meds noted, continues to be on heparin sq 11/19 labs noted, no bleeding, comfortable, cbc is ntoed and bmp for am labs 11/[address], with dressing change as needed, meds noted, labs reviewed 11/[address], is on vanc/christel seen by id, no major changes 11/22 labs reviewed, with colostomy, donohue catheter, ct of a/p noted 11/23 meds noted, no bleeding, have ordered for eliquis and chandrakant Razo in am 11/25 labs noted, no bleeding, on blood thinner is on vanc/linezolid, hgb 8 Objective Objective Current Medications Medications (Trade) Dose Ordered Sig/Mya Route PRN Reason Start Time Stop Time Status Last Admin Dose Admin Acetaminophen (Tylenol) 650 mg Q4H PRN ORAL Mild Pain (Pain Scale 1-3) 11/05/19 14:00 11/30/19 13:59 11/24/19 14:27 Acetaminophen (Tylenol) 650 mg Q4H PRN ORAL Temp >100.5 11/05/19 16:00 12/05/19 15:59 11/25/19 04:15 Acetaminophen/ Hydrocodone Bitart ([place] 5/325) 1 tab Q6H PRN ORAL Severe Pain (Pain Scale 7-10) 11/24/19 10:00 12/01/19 09:59 11/26/19 07:24 Apixaban (Eliquis) 2.5 mg BID ORAL 11/24/19 09:00 02/22/20 08:59 11/25/19 17:58 Bisacodyl (Dulcolax) 10 mg DAILYPRN PRN RECTAL Constipation 11/24/19 07:45 02/22/20 07:44 Chlorhexidine Gluconate (Simran-Hex 2%) 1 applic DAILY@2000 TOPIC 11/13/19 20:00 02/11/20 19:59 11/25/19 20:34 Desmopressin Acetate (Ddavp) 1 spray DAILY NASAL 11/14/19 09:00 02/07/20 17:59 11/25/19 09:46 Dextrose (Dextrose 50%) 25 ml Q30M PRN IV Hypoglycemia 11/05/19 13:30 01/21/20 17:29 Dextrose (Dextrose 50%) 50 ml Q30M PRN IV Hypoglycemia 11/05/19 13:30 01/21/20 17:29 Famotidine (Pepcid) 20 mg DAILY ORAL 11/06/19 09:00 01/28/20 09:29 11/25/19 09:44 Ferrous Sulfate (Feosol) 325 mg DAILY ORAL 11/06/19 09:00 01/22/20 08:59 11/25/19 09:45 Fludrocortisone Acetate (Florinef) 0.1 mg DAILY ORAL 11/15/19 09:00 12/15/19 08:59 11/25/19 09:45 Gabapentin (Neurontin) 400 mg Q8HR ORAL 11/05/19 14:00 12/03/19 21:59 11/26/19 05:53 Linezolid (Zyvox) 600 mg Q12HR ORAL 11/24/19 11:00 11/29/19 10:59 11/25/19 20:34 Magnesium Hydroxide (Mom) 30 ml HSPRN PRN ORAL Constipation 11/13/19 11:15 12/13/19 11:14 Midodrine (Pro-Amatine) 10 mg EVERY 8 HOURS ORAL 11/05/19 14:00 01/21/20 17:59 11/26/19 05:53 Naloxone HCl (Narcan) 0.2 mg Q2M PRN IVP RESPRITORY DEPRESSION RR<8 11/24/19 10:15 02/22/20 10:14 Polymyxin B Sulfate 019117 units/Dextrose 550 ml @ 550 mls/hr EVERY 12 HOURS IV 11/24/19 21:00 12/01/19 20:59 11/25/19 21:23 Senna/Docusate Sodium (Haley-Colace) 1 tab TWICE A DAY ORAL 11/24/19 09:00 12/24/19 08:59 11/25/19 17:58 Sodium Chloride (NaCl) 1 gm THREE TIMES A DAY ORAL 11/09/19 13:00 12/09/19 12:59 11/25/19 17:58 Zinc Sulfate (Zinc Sulfate) 220 mg DAILY ORAL 11/06/19 09:00 01/22/20 08:59 11/25/19 09:44 Last 24 Hour Vital Signs Date Time Temp Pulse Resp B/P (MAP) Pulse Ox O2 Delivery O2 Flow Rate FiO2 11/26/19 04:00 99.5 87 18 109/57 (74) 97 11/26/19 00:00 98.4 74 18 90/60 (70) 95 11/25/19 21:00 Room Air 11/25/19 20:00 98.3 68 19 103/53 (70) 99 11/25/19 16:00 98.8 84 18 128/72 (90) 99 11/25/19 12:00 98.1 63 18 93/54 (67) 95 11/25/19 09:00 Room Air 11/25/19 08:00 99.4 78 18 135/68 (90) 99 11/25/19 07:05 98.6 11/25/19 04:45 99.9 11/25/19 04:00 100.5 76 18 130/56 (80) 98 11/25/19 00:00 96.8 77 20 101/68 (79) 97 11/24/19 21:00 Room Air 11/24/19 20:00 98.1 55 18 93/55 (68) 98 11/24/19 16:00 97.4 81 18 98/63 (75) 95 11/24/19 12:00 98.9 81 18 101/57 (72) 96 11/24/19 09:00 Room Air 11/24/19 08:00 99.8 83 18 95/61 (72) 95 Intake and Output 11/25/19 11/26/19 19:00 07:00 Intake Total 500 ml 950 ml Output Total 950 ml 1600 ml Balance -450 ml -650 ml Intake Oral 400 ml IV Total 550 ml Other 500 ml Output Urine Total 950 ml 1600 ml # Bowel Movements 1 1 Labs Test 11/25/19 09:45 White Blood Count 8.8 K/UL (4.8-10.8) Red Blood Count 3.04 M/UL (4.70-6.10) Hemoglobin 8.0 G/DL (14.2-18.0) Hematocrit 25.6 % (42.0-52.0) Mean Corpuscular Volume 84 FL (80-99) Mean Corpuscular Hemoglobin 26.4 PG (27.0-31.0) Mean Corpuscular Hemoglobin Concent 31.5 G/DL (32.0-36.0) Red Cell Distribution Width 15.6 % (11.6-14.8) Platelet Count 376 K/UL (150-450) Mean Platelet Volume 4.6 FL (6.5-10.1) Neutrophils (%) (Auto) 63.6 % (45.0-75.0) Lymphocytes (%) (Auto) 25.4 % (20.0-45.0) Monocytes (%) (Auto) 8.4 % (1.0-10.0) Eosinophils (%) (Auto) 1.5 % (0.0-3.0) Basophils (%) (Auto) 1.1 % (0.0-2.0) Sodium Level 138 MMOL/L (136-145) Potassium Level 3.8 MMOL/L (3.5-5.1) Chloride Level 101 MMOL/L (98-107) Carbon Dioxide Level 28 MMOL/L (21-32) Anion Gap 9 mmol/L (5-15) Blood Urea Nitrogen 14 mg/dL (7-18) Creatinine 0.6 MG/DL (0.55-1.30) Estimat Glomerular Filtration Rate > 60 mL/min (>60) Glucose Level 111 MG/DL (74-106) Calcium Level 9.7 MG/DL (8.5-10.1) Height (Feet): 5 Height (Inches): 7.00 Weight (Pounds): 114 Objective Physical Exam General Appearance: lethargic Lines, tubes and drains: peripheral, central line HEENT: normocephalic Neck: non-tender, normal alignment Respiratory/Chest: lungs clear Cardiovascular/Chest: normal peripheral pulses, normal rate, regular rhythm Abdomen: normal bowel sounds, non tender ++ llq colostomy : ++Martínez Geiger MD Nov 26, 2019 07:27
--- NOTE | 2019-11-26 07:52 | General Progress Note ---
Assessment/Plan Status: stable Assessment/Plan: 59 year old man who presents from [facility] with weakness, encephalopathy, concern for septic shock, possible from UTI. #Acute Left Popliteal DVT -Pt has IVC filter -D/w Heme, start eliquis 2.5 BID -monitor for signs of bleeding -d/c HSQ ppx given pt on eliquis #Fever #Septic shock- resolved #Proteus UTI #Actinobacter UTI, GPC UTI #Acute metabolic encephalopathy - resolved #Paraplegia #Sacral pressure ulcer, present on admit - Periods of hypotension and fever through hospitalization, VSS now - BC & CXR wnl - Covid 19 - negative - S/p vancomycin, cefepime, and flagyl - UCx on 11/19 positive for actinobacter and GPC - Spoke with surgery, reviewed CT findings, sacral pressure ulcer does not appear to be infected, ct findings consistent w/sacral ulcer - Cont Local wound care and offloading - Fever 101.7 on 11/20, repeat BCx ordered however pt refused labs - 10/20 CXR w/no acute process - fever 100.5 on 11/24, repeat BCx and labs ordered, d/w RN and ID, OK to draw from PICC line - Appreciate ID consult --> gentamicin and zosyn - CBC with no leukocytosis - pending BCx #Sacral Decubitius Ulcer -CT abd/pel on 11/22/19 w/ subcutaneous gas -d/w with surgery, reviewed CT findings, sacral pressure ulcer does not appear to be infected, ct findings consistent w/sacral ulcer -wound care daily -appreciate wound care recs -abx per ID #Stool Impaction - improved -seen on CT abd on 11/22/2019 -Docusate-senna daily -PRN dulcolax #Fungal UTI - resolved, s/p treatment - Patient is high risk for fungemia - Diflucan 11/16 - 11/23 -Appreciate ID Consult #Sinus Bradycardia - resolved -continue telemetry -EP following 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 -Evaluated by endocrine for adrenal insufficiency -AM cortisol normal however patient continues to have labile BP and hyponatremia - Appreciate Nephrology consult - Appreciate Endocrine consult - Will continue Florinef, Salt Tab, and DDAVP - Continue Midodrine given labile BP - CT Brain without masses noted, will defer MRI - Refusing labs periodically #Hyponatremia - resolved #Hypokalemia - resolved -Intermittently refusing labs -Replete when necessary -On DDAVP intranasal #Anemia, acute on chronic - stable -s/p 2 units RBC 10/28 -Hematology following, no signs of overt bleeding - Continue Iron tab - Keep Hb >7 #Chronic Lower extremity pain 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 Appreciate referrals placed by CM. I spent 27 minutes on this patient's care today, and 16 mins was dedicated to counseling and care coordination. D/w RN and ID. Time of note doesn't reflect time of encounter. Subjective Allergies: Coded Allergies: No Known Allergies (Unverified , 08/15/19) Subjective Afebrile overnight. No acute events overnight. Pt currently denies f/c, n/v, CP, SOB, abd pain at this time. Pending placement due to insurance. Objective Last 24 Hour Vital Signs Date Time Temp Pulse Resp B/P (MAP) Pulse Ox O2 Delivery O2 Flow Rate FiO2 11/26/19 04:00 99.5 87 18 109/57 (74) 97 11/26/19 00:00 98.4 74 18 90/60 (70) 95 11/25/19 21:00 Room Air 11/25/19 20:00 98.3 68 19 103/53 (70) 99 11/25/19 16:00 98.8 84 18 128/72 (90) 99 11/25/19 12:00 98.1 63 18 93/54 (67) 95 11/25/19 09:00 Room Air 11/25/19 08:00 99.4 78 18 135/68 (90) 99 Intake and Output 11/25/19 11/26/19 19:00 07:00 Intake Total 500 ml 950 ml Output Total 950 ml 1600 ml Balance -450 ml -650 ml Intake Oral 400 ml IV Total 550 ml Other 500 ml Output Urine Total 950 ml 1600 ml # Bowel Movements 1 1 Laboratory Tests 11/25/19 09:45: White Blood Count 8.8, Red Blood Count 3.04L, Hemoglobin 8.0L, Hematocrit 25.6L , Mean Corpuscular Volume 84, Mean Corpuscular Hemoglobin 26.4L, Mean Corpuscular Hemoglobin Concent 31.5L, Red Cell Distribution Width 15.6H, Platelet Count 376, Mean Platelet Volume 4.6L, Neutrophils (%) (Auto) 63.6, Lymphocytes (%) (Auto) 25.4, Monocytes (%) (Auto) 8.4, Eosinophils (%) (Auto) 1.5, Basophils (%) (Auto) 1.1, Sodium Level 138, Potassium Level 3.8, Chloride Level 101, Carbon Dioxide Level 28, Anion Gap 9, Blood Urea Nitrogen 14, Creatinine 0.6, Estimat Glomerular Filtration Rate > 60, Glucose Level 111H, Calcium Level 9.7 Height (Feet): 5 Height (Inches): 7.00 Weight (Pounds): 114 Objective General Appearance: no apparent distress, alert, sitting up in bed comfortably HEENT: NCAT, EOMI, MMM Neck: non-tender, supple Cardiovascular: normal rate, regular rhythm Respiratory/Chest: chest wall non-tender, normal breath sounds Abdomen: normal bowel sounds, non tender, soft, Colostomy in place w/brown stool c/d/i, PEG c/d/i Extremities: contractures in b/l lower extremity 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 Nov 26, 2019 07:52
[2019-11-26 08:00] VITALS: BP 113/61
[2019-11-26] MEDS: Sodium Chloride 1gm Tab ORAL SCH ×3 (08:26→17:03)
[2019-11-26] MEDS: Zinc Sulfate 220mg ORAL SCH (08:27)
[2019-11-26] MEDS: Docusate Sod/Senna tab ORAL SCH ×2 (08:27→17:03)
[2019-11-26] MEDS: Desmopressin Nasal 5ml NASAL SCH (08:28)
[2019-11-26] MEDS: Eliquis 2.5mg tablet ORAL SCH ×2 (08:28→17:03)
[2019-11-26] MEDS: Polymyxin B Sulfate 500,000 units in D5W 550ml IV SCH ×2 (08:28→20:06)
--- NOTE | 2019-11-26 09:09 | Pulmonology Progress Note ---
Subjective ROS Limited/Unobtainable: Yes Interval Events: no fever or leucocytosis Constitutional: Denies: fever HEENT: Repors: no symptoms Respiratory: Reports: no symptoms Cardiovascular: Reports: no symptoms Gastrointestinal/Abdominal: Denies: nausea, vomiting, diarrhea Genitourinary: Reports: no symptoms Psychiatric: Denies: depression Skin: Denies: rash Musculoskeletal: Denies: pain Allergies: Coded Allergies: No Known Allergies (Unverified , 08/15/19) All Systems: reviewed and negative except above Objective Last 24 Hour Vital Signs Date Time Temp Pulse Resp B/P (MAP) Pulse Ox O2 Delivery O2 Flow Rate FiO2 11/26/19 08:00 99.0 83 18 113/61 (78) 98 11/26/19 04:00 99.5 87 18 109/57 (74) 97 11/26/19 00:00 98.4 74 18 90/60 (70) 95 11/25/19 21:00 Room Air 11/25/19 20:00 98.3 68 19 103/53 (70) 99 11/25/19 16:00 98.8 84 18 128/72 (90) 99 11/25/19 12:00 98.1 63 18 93/54 (67) 95 Intake and Output 11/25/19 11/26/19 19:00 07:00 Intake Total 500 ml 950 ml Output Total 950 ml 1600 ml Balance -450 ml -650 ml Intake Oral 400 ml IV Total 550 ml Other 500 ml Output Urine Total 950 ml 1600 ml # Bowel Movements 1 1 General Appearance: no acute distress HEENT: normocephalic Respiratory: chest wall non-tender, lungs clear Cardiovascular: normal peripheral pulses, regular rhythm Abdomen: normal bowel sounds Extremities: no cyanosis Laboratory Tests 11/25/19 09:45: White Blood Count 8.8, Red Blood Count 3.04L, Hemoglobin 8.0L, Hematocrit 25.6L , Mean Corpuscular Volume 84, Mean Corpuscular Hemoglobin 26.4L, Mean Corpuscular Hemoglobin Concent 31.5L, Red Cell Distribution Width 15.6H, Platelet Count 376, Mean Platelet Volume 4.6L, Neutrophils (%) (Auto) 63.6, Lymphocytes (%) (Auto) 25.4, Monocytes (%) (Auto) 8.4, Eosinophils (%) (Auto) 1.5, Basophils (%) (Auto) 1.1, Sodium Level 138, Potassium Level 3.8, Chloride Level 101, Carbon Dioxide Level 28, Anion Gap 9, Blood Urea Nitrogen 14, Creatinine 0.6, Estimat Glomerular Filtration Rate > 60, Glucose Level 111H, Calcium Level 9.7 Current Medications Medications (Trade) Dose Ordered Sig/Mya Route PRN Reason Start Time Stop Time Status Last Admin Dose Admin Acetaminophen (Tylenol) 650 mg Q4H PRN ORAL Mild Pain (Pain Scale 1-3) 11/05/19 14:00 11/30/19 13:59 11/24/19 14:27 Acetaminophen (Tylenol) 650 mg Q4H PRN ORAL Temp >100.5 11/05/19 16:00 12/05/19 15:59 11/25/19 04:15 Acetaminophen/ Hydrocodone Bitart ([place] 5/325) 1 tab Q6H PRN ORAL Severe Pain (Pain Scale 7-10) 11/24/19 10:00 12/01/19 09:59 11/26/19 07:24 Apixaban (Eliquis) 2.5 mg BID ORAL 11/24/19 09:00 02/22/20 08:59 11/26/19 08:28 Bisacodyl (Dulcolax) 10 mg DAILYPRN PRN RECTAL Constipation 11/24/19 07:45 02/22/20 07:44 Chlorhexidine Gluconate (Simran-Hex 2%) 1 applic DAILY@2000 TOPIC 11/13/19 20:00 02/11/20 19:59 11/25/19 20:34 Desmopressin Acetate (Ddavp) 1 spray DAILY NASAL 11/14/19 09:00 02/07/20 17:59 11/26/19 08:28 Dextrose (Dextrose 50%) 25 ml Q30M PRN IV Hypoglycemia 11/05/19 13:30 01/21/20 17:29 Dextrose (Dextrose 50%) 50 ml Q30M PRN IV Hypoglycemia 11/05/19 13:30 01/21/20 17:29 Famotidine (Pepcid) 20 mg DAILY ORAL 11/06/19 09:00 01/28/20 09:29 11/26/19 08:27 Ferrous Sulfate (Feosol) 325 mg DAILY ORAL 11/06/19 09:00 01/22/20 08:59 11/26/19 08:27 Fludrocortisone Acetate (Florinef) 0.1 mg DAILY ORAL 11/15/19 09:00 12/15/19 08:59 11/26/19 08:27 Gabapentin (Neurontin) 400 mg Q8HR ORAL 11/05/19 14:00 12/03/19 21:59 11/26/19 05:53 Linezolid (Zyvox) 600 mg Q12HR ORAL 11/24/19 11:00 11/29/19 10:59 11/26/19 08:27 Magnesium Hydroxide (Mom) 30 ml HSPRN PRN ORAL Constipation 11/13/19 11:15 12/13/19 11:14 Midodrine (Pro-Amatine) 10 mg EVERY 8 HOURS ORAL 11/05/19 14:00 01/21/20 17:59 11/26/19 05:53 Naloxone HCl (Narcan) 0.2 mg Q2M PRN IVP RESPRITORY DEPRESSION RR<8 11/24/19 10:15 02/22/20 10:14 Polymyxin B Sulfate 744449 units/Dextrose 550 ml @ 550 mls/hr EVERY 12 HOURS IV 11/24/19 21:00 12/01/19 20:59 11/26/19 08:28 Senna/Docusate Sodium (Haley-Colace) 1 tab TWICE A DAY ORAL 11/24/19 09:00 12/24/19 08:59 11/26/19 08:27 Sodium Chloride (NaCl) 1 gm THREE TIMES A DAY ORAL 11/09/19 13:00 12/09/19 12:59 11/26/19 08:26 Zinc Sulfate (Zinc Sulfate) 220 mg DAILY ORAL 11/06/19 09:00 01/22/20 08:59 11/26/19 08:27 Assessment/Plan Assessment/Plan IMPRESSION: 1. Septic shock. resolved 2. Complicated UTI with history of previous ESBL infection. 3. Paraplegia. 4. Sacral decubitus. 5. [facility] resident. DISCUSSION: DVT and GI prophylaxes. Continue Oxygen prn, doing well on room air at this time. DC planning Haily Monzon Omar Syed MD Nov 26, 2019 09:09
--- NOTE | 2019-11-26 10:13 | General Progress Note ---
Assessment/Plan Assessment/Plan: (1) Sacral decubitus ulcer (2) Paraplegia (3) Neuropathic pain Patient to be continued on [place] and Neurontin D/w Dr. Celaya and he concurred. Subjective Date patient seen: Nov 26, 2019 Time patient seen: 09:00 - am Allergies: Coded Allergies: No Known Allergies (Unverified , 08/15/19) Subjective REVIEW OF SYSTEMS: Denies rash, fever, chills, sweating, dizziness, drowsiness, blurred vision, sore throat, or change in weight. No shortness of breath or chest pain. No nausea, vomiting, diarrhea, blood in stool or urine. CHIEF COMPLAINT: Sacral decubitus ulcer. HISTORY OF PRESENT ILLNESS: This is a 59-year-old male who has been seen on the Med/Surg floor of [facility]. Patient is in bed no signs of pain or distress. Pain has been tolerated on 3 doses of [place] in the last 24hrs. no new complaints at this time. Objective Last 24 Hour Vital Signs Date Time Temp Pulse Resp B/P (MAP) Pulse Ox O2 Delivery O2 Flow Rate FiO2 11/26/19 08:30 Room Air 11/26/19 08:00 99.0 83 18 113/61 (78) 98 11/26/19 04:00 99.5 87 18 109/57 (74) 97 11/26/19 00:00 98.4 74 18 90/60 (70) 95 11/25/19 21:00 Room Air 11/25/19 20:00 98.3 68 19 103/53 (70) 99 11/25/19 16:00 98.8 84 18 128/72 (90) 99 11/25/19 12:00 98.1 63 18 93/54 (67) 95 Intake and Output 11/25/19 11/26/19 19:00 07:00 Intake Total 500 ml 950 ml Output Total 950 ml 1600 ml Balance -450 ml -650 ml Intake Oral 400 ml IV Total 550 ml Other 500 ml Output Urine Total 950 ml 1600 ml # Bowel Movements 1 1 Height (Feet): 5 Height (Inches): 7.00 Weight (Pounds): 114 Objective PHYSICAL EXAMINATION: GENERAL: Alert, awake, and oriented. LUNGS: Decreased breath sounds bilaterally. HEART: S1, S2 regular. ABDOMEN: Colostomy bag noted. EXTREMITIES: Upper and lower extremity range of motion is decreased due to the patient's condition. Contracture is noted. Sensory is reduced. Reflexes are not obtainable. No adenopathy. Danny Raymundo Nov 26, 2019 10:13
[2019-11-26 11:56] VITALS: BP 116/63
--- NOTE | 2019-11-26 12:05 | Nephrology Progress Note ---
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 - improved with desmporessin #Shock #UTI # infected sacral pressure ulcer #Acute metabolic encephalopathy #Paraplegia #Sacral pressure ulcer #Hypokalemia #Anemia - continue florinef 0.1mg daily -Continue desmopressin nasal - continue salt tabs 1g TID - continue midodrine 10 TID - endocrine eval noted - r/o adrenal insuffiency - antibiotics per ID - monitor lytes - avoid nephrotoxins - daily weights - strict I&Os time spent 40 min- greater than 50% on care coordination and counseling Subjective ROS Limited/Unobtainable: Yes Subjective UOP 2550 labs reviewed on florinef 0.1mg daily Bp stable on nasal desmopressin on salt tabs Objective Objective Last 24 Hour Vital Signs Date Time Temp Pulse Resp B/P (MAP) Pulse Ox O2 Delivery O2 Flow Rate FiO2 11/26/19 11:56 98.3 80 18 116/63 (80) 98 11/26/19 08:30 Room Air 11/26/19 08:00 99.0 83 18 113/61 (78) 98 11/26/19 04:00 99.5 87 18 109/57 (74) 97 11/26/19 00:00 98.4 74 18 90/60 (70) 95 11/25/19 21:00 Room Air 11/25/19 20:00 98.3 68 19 103/53 (70) 99 11/25/19 16:00 98.8 84 18 128/72 (90) 99 Intake and Output 11/25/19 11/26/19 19:00 07:00 Intake Total 500 ml 950 ml Output Total 950 ml 1600 ml Balance -450 ml -650 ml Intake Oral 400 ml IV Total 550 ml Other 500 ml Output Urine Total 950 ml 1600 ml # Bowel Movements 1 1 Height (Feet): 5 Height (Inches): 7.00 Weight (Pounds): 114 Sienna Georges M.D. Nov 26, 2019 12:05
[2019-11-26 15:55] VITALS: BP 125/69
--- NOTE | 2019-11-26 15:56 | Infectious Diseases Prog Note ---
Assessment/Plan Assessment/Plan ASSESSMENT AND PLAN: 1. hx sepsis/shock, hx proteus uti, hx esbl e.coli uti, possible aspiration pna/ hcap vs cap, sacral wound - ? infected, mrsa and vre colonization fevers, leukocytosis - new acinetobacter uti and vre uti, + urine culture CT abdomen and pelvis without acute abscess, blood cultures negative ? pna on chest x-ray vs atx, ? aspiration pna/hcap - polymyxin and zyvox x 5 days - monitor labs, chest x-ray and temperatures 2. ICU care. 3. Sacral wound -wound mostly clean, management per surgery 4. Ostomy malfunction - per surgery 5. Hypertension. 6. Paraplegia. 7. Anemia. 8. History of decubitus ulcer, rule out infection. Infectious diseases is following. The patient on antibiotics. 9. Hypertension treatment per primary care team. 10. Continue treatment per primary consultants. 11. No known drug allergies. 12. Social history is negative. 13. Family history is noncontributory. 14. MAR was noted. 15. Case discussed with RN. Subjective Constitutional: Denies: fever HEENT: Denies: congestion Respiratory: Denies: shortness of breath Cardiovascular: Denies: chest pain Gastrointestinal/Abdominal: Denies: nausea, vomiting, diarrhea Genitourinary: Reports: other - + donohue Neurologic: Denies: headache Psychiatric: Denies: depression Skin: Denies: rash Hematologic: Denies: bleeding Musculoskeletal: Denies: pain Allergies: Coded Allergies: No Known Allergies (Unverified , 08/15/19) Objective Last 24 Hour Vital Signs Date Time Temp Pulse Resp B/P (MAP) Pulse Ox O2 Delivery O2 Flow Rate FiO2 11/26/19 11:56 98.3 80 18 116/63 (80) 98 11/26/19 08:30 Room Air 11/26/19 08:00 99.0 83 18 113/61 (78) 98 11/26/19 04:00 99.5 87 18 109/57 (74) 97 11/26/19 00:00 98.4 74 18 90/60 (70) 95 11/25/19 21:00 Room Air 11/25/19 20:00 98.3 68 19 103/53 (70) 99 11/25/19 16:00 98.8 84 18 128/72 (90) 99 Height (Feet): 5 Height (Inches): 7.00 Weight (Pounds): 114 General Appearance: no acute distress HEENT: normocephalic, atraumatic, anicteric, mucous membranes moist Respiratory/Chest: lungs clear, normal breath sounds, no respiratory distress, no accessory muscle use Cardiovascular: normal rate, regular rhythm, no gallop/murmur, no JVD Abdomen: normal bowel sounds, soft, non tender, no organomegaly, non distended Genitourinary: other - + donohue - urine clearer Extremities: no cyanosis Skin: no rash Neurologic/Psychiatric: chain builder II-XII grossly normal, alert, responsive Lymphatic: no neck adenopathy Musculoskeletal: no effusion Chest x-ray - 10/25/19 - Procedure: XRAY Chest 1v Indication: Shortness of breath Technique: One view of the chest Comparison: 10/23/2019 Findings: There are bilateral basilar infiltrates, which appear new or increased since prior study. There is some atelectasis at the left lung base as well. Right jugular central venous catheter remains. The heart size is normal. Impression: New/increased bilateral basilar infiltrates, since prior study 2019 Chest x-ray - 10/27/19 - Procedure: XRAY Chest 1v Indication: Shortness of breath Technique: One view of the chest Comparison: 10/25/2019 Findings: There is atelectasis possibly some focal consolidation at the right lung base. Atelectatic changes previously demonstrated at the left lung base have largely cleared. Right jugular central venous catheter remains. The heart size is normal. Impression: Improving left basilar atelectasis. Otherwise little exchange operator 2 days findings as noted Chest x-ray - 10/29/19 - FINDINGS: Lungs: Persistent subsegmental atelectasis in bilateral lower lungs, not significant changed compared to the prior exam. No new consolidation is seen. Pleural space: Unremarkable. The costophrenic angles are sharp. No visible pneumothorax. Heart: Unremarkable. No cardiomegaly. Mediastinum: Unremarkable. Bones/joints: Unremarkable. Vasculature: Mild atherosclerotic calcifications are noted within the aortic arch. Tubes, lines and devices: Stable positioning of a right IJ central venous catheter with the tip in the SVC. Telemetry leads overlie the thorax. IMPRESSION: Persistent subsegmental atelectasis in bilateral lower lungs, not significantly changed compared to the prior exam. Chest x-rasy - 11/03/19 - Procedure: XRAY Chest 1v Indication: Cough Technique: One view of the chest Comparison: 10/29/2019 Findings: There are increased atelectatic changes at the lung bases. Interim removal of previously demonstrated central venous catheter. The pleural spaces are clear. The heart size is normal. Impression: Increasing bilateral basilar atelectasis Interim central venous catheter removal. Chest x-ray - 11/07/19 - Procedure: XRAY Chest 1v Indication: Shortness of breath Technique: One view of the chest Comparison: 11/03/2019 Findings: Bilateral basilar atelectatic changes appear similar to the previous exam. There may be some patchy left perihilar and bilateral peripheral consolidation. The heart size is normal. Impression: New or increased faint patchy peripheral and left perihilar consolidative opacities, possibly reflecting multifocal pneumonia, since prior study 03/04/2019 Persistent bilateral basilar atelectatic changes Chest x-ray - 11/09/19 - Procedure: XRAY Chest 1v Indication: Cough Technique: One view of the chest Comparison: 11/07/2019 Findings: There is improved aeration of the lung bases, although some atelectasis persists bilaterally. No new infiltrates. The pleural spaces are clear. The heart size is normal. Impression: Improved aeration with decreased basilar atelectasis Chest x-ray - 11/14/19 - Procedure: XRAY Chest 1v Indication: Cough Technique: One view of the chest Comparison: 11/09/2019 Findings: Bilateral basilar atelectasis has increased. No new infiltrates. The pleural spaces remain clear. The heart size is normal. Impression: Increased bilateral basilar atelectasis, since prior study 11/09/2019 Chest x-ray - 11/15/19 - Procedure: XRAY Chest 1v Indication: Cough Technique: One view of the chest Comparison: 11/13/2019 Findings: Again demonstrated is bilateral basilar atelectasis versus scarring. The lungs and pleural spaces are otherwise clear. The heart size is normal. Interim placement right arm PICC. Impression: No acute process Chest x-ray - 11/21/19 - Procedure: XRAY Chest 1v Indication: Shortness of breath Technique: One view of the chest Comparison: 11/15/2019 Findings: Previously demonstrated basilar atelectatic changes have cleared. Lungs and pleural spaces are currently clear. The heart size is normal. There is a right arm PICC again demonstrated Impression: No acute process CT abdomen and pelvis: Impression: Extensive decubitus changes, as described, with evidence of skin thickening, surface ulceration, deep ulceration, and likely prior skin grafting. There is also evidence of extensive bone loss. This may be due to erosive changes, postsurgical changes, or likely combination of both. No findings to suggest abscess Left lower quadrant diverting sigmoid colostomy. Considerable distal stool and evidence of rectal fecal impaction and incontinence, despite this. Rectal wall thickening could indicate stercoral proctitis Splenomegaly Inferior vena cava filter Donohue catheter and empty bladder. Some calcifications are seen surrounding the Donohue balloon Posterior pulmonary dependent atelectatic changes and possible consolidation Other findings as noted, including probable hepatic and renal cysts Chest x-ray - 11/25/19 - FINDINGS: Lungs: There are mild bilateral lower lobe infiltrates consistent with nonspecific pneumonia. Pleural space: Unremarkable. No pneumothorax. Heart: Unremarkable. No cardiomegaly. Mediastinum: Unremarkable. Bones/joints: Unremarkable. Tubes, lines and devices: There is a right-sided PICC line in good position. IMPRESSION: There are mild bilateral lower lobe infiltrates consistent with nonspecific pneumonia. Microbiology Date/Time Source Procedure Growth Status 11/13/19 02:00 Blood Blood Culture - Final NO GROWTH AFTER 5 DAYS Complete 11/02/19 13:30 Nasopharynx SARS-CoV-2 RdRp Gene Assay - Final Complete 11/20/19 23:30 Indwelling Cath Urine Culture - Final Acinetobacter Baumanii - Mdr Enterococcus Faecium - Vre Complete 11/03/19 08:00 Catheter Site Catheter Tip Culture - Final Staphylococcus Sp Coag Neg Complete Labs Test 11/25/19 09:45 White Blood Count 8.8 K/UL (4.8-10.8) Red Blood Count 3.04 M/UL (4.70-6.10) Hemoglobin 8.0 G/DL (14.2-18.0) Hematocrit 25.6 % (42.0-52.0) Mean Corpuscular Volume 84 FL (80-99) Mean Corpuscular Hemoglobin 26.4 PG (27.0-31.0) Mean Corpuscular Hemoglobin Concent 31.5 G/DL (32.0-36.0) Red Cell Distribution Width 15.6 % (11.6-14.8) Platelet Count 376 K/UL (150-450) Mean Platelet Volume 4.6 FL (6.5-10.1) Neutrophils (%) (Auto) 63.6 % (45.0-75.0) Lymphocytes (%) (Auto) 25.4 % (20.0-45.0) Monocytes (%) (Auto) 8.4 % (1.0-10.0) Eosinophils (%) (Auto) 1.5 % (0.0-3.0) Basophils (%) (Auto) 1.1 % (0.0-2.0) Sodium Level 138 MMOL/L (136-145) Potassium Level 3.8 MMOL/L (3.5-5.1) Chloride Level 101 MMOL/L (98-107) Carbon Dioxide Level 28 MMOL/L (21-32) Anion Gap 9 mmol/L (5-15) Blood Urea Nitrogen 14 mg/dL (7-18) Creatinine 0.6 MG/DL (0.55-1.30) Estimat Glomerular Filtration Rate > 60 mL/min (>60) Glucose Level 111 MG/DL (74-106) Calcium Level 9.7 MG/DL (8.5-10.1) Current Medications Medications (Trade) Dose Ordered Sig/Mya Route PRN Reason Start Time Stop Time Status Last Admin Dose Admin Acetaminophen (Tylenol) 650 mg Q4H PRN ORAL Mild Pain (Pain Scale 1-3) 11/05/19 14:00 11/30/19 13:59 11/24/19 14:27 Acetaminophen (Tylenol) 650 mg Q4H PRN ORAL Temp >100.5 11/05/19 16:00 12/05/19 15:59 11/25/19 04:15 Acetaminophen/ Hydrocodone Bitart (Tyler 5/325) 1 tab Q6H PRN ORAL Severe Pain (Pain Scale 7-10) 11/24/19 10:00 12/01/19 09:59 11/26/19 13:13 Apixaban (Eliquis) 2.5 mg BID ORAL 11/24/19 09:00 02/22/20 08:59 11/26/19 08:28 Bisacodyl (Dulcolax) 10 mg DAILYPRN PRN RECTAL Constipation 11/24/19 07:45 02/22/20 07:44 Chlorhexidine Gluconate (Simran-Hex 2%) 1 applic DAILY@2000 TOPIC 11/13/19 20:00 02/11/20 19:59 11/25/19 20:34 Desmopressin Acetate (Ddavp) 1 spray DAILY NASAL 11/14/19 09:00 02/07/20 17:59 11/26/19 08:28 Dextrose (Dextrose 50%) 25 ml Q30M PRN IV Hypoglycemia 11/05/19 13:30 01/21/20 17:29 Dextrose (Dextrose 50%) 50 ml Q30M PRN IV Hypoglycemia 11/05/19 13:30 01/21/20 17:29 Famotidine (Pepcid) 20 mg DAILY ORAL 11/06/19 09:00 01/28/20 09:29 11/26/19 08:27 Ferrous Sulfate (Feosol) 325 mg DAILY ORAL 11/06/19 09:00 01/22/20 08:59 11/26/19 08:27 Fludrocortisone Acetate (Florinef) 0.1 mg DAILY ORAL 11/15/19 09:00 12/15/19 08:59 11/26/19 08:27 Gabapentin (Neurontin) 400 mg Q8HR ORAL 11/05/19 14:00 12/03/19 21:59 11/26/19 13:11 Linezolid (Zyvox) 600 mg Q12HR ORAL 11/24/19 11:00 11/29/19 10:59 11/26/19 08:27 Magnesium Hydroxide (Mom) 30 ml HSPRN PRN ORAL Constipation 11/13/19 11:15 12/13/19 11:14 Midodrine (Pro-Amatine) 10 mg EVERY 8 HOURS ORAL 11/05/19 14:00 01/21/20 17:59 11/26/19 13:11 Naloxone HCl (Narcan) 0.2 mg Q2M PRN IVP RESPRITORY DEPRESSION RR<8 11/24/19 10:15 02/22/20 10:14 Polymyxin B Sulfate 664442 units/Dextrose 550 ml @ 550 mls/hr EVERY 12 HOURS IV 11/24/19 21:00 12/01/19 20:59 11/26/19 08:28 Senna/Docusate Sodium (Haley-Colace) 1 tab TWICE A DAY ORAL 11/24/19 09:00 12/24/19 08:59 11/26/19 08:27 Sodium Chloride (NaCl) 1 gm THREE TIMES A DAY ORAL 11/09/19 13:00 12/09/19 12:59 11/26/19 13:11 Zinc Sulfate (Zinc Sulfate) 220 mg DAILY ORAL 11/06/19 09:00 01/22/20 08:59 11/26/19 08:27 Sharif Painting MD Nov 26, 2019 15:56
--- NOTE | 2019-11-26 16:52 | Surgery Progress Note ---
Surgery Progress Note Subjective Symptoms: improved, tolerating diet, passing flatus, BM Objective Last 24 Hour Vital Signs Date Time Temp Pulse Resp B/P (MAP) Pulse Ox O2 Delivery O2 Flow Rate FiO2 11/26/19 15:55 98.5 63 18 125/69 (87) 98 11/26/19 11:56 98.3 80 18 116/63 (80) 98 11/26/19 08:30 Room Air 11/26/19 08:00 99.0 83 18 113/61 (78) 98 11/26/19 04:00 99.5 87 18 109/57 (74) 97 11/26/19 00:00 98.4 74 18 90/60 (70) 95 11/25/19 21:00 Room Air 11/25/19 20:00 98.3 68 19 103/53 (70) 99 I&O Intake and Output 11/25/19 11/26/19 19:00 07:00 Intake Total 500 ml 950 ml Output Total 950 ml 1600 ml Balance -450 ml -650 ml Intake Oral 400 ml IV Total 550 ml Other 500 ml Output Urine Total 950 ml 1600 ml # Bowel Movements 1 1 Dressing: saturated Cardiovascular: RSR Respiratory: decreased breath sounds Abdomen: soft, non-tender, present bowel sounds, other Extremities: no edema, no tenderness, no cyanosis Plan Problems: (1) Abdominal distension Assessment & Plan: abd distention soft non tender ostomy viable and reduced KUB ordered pending results improved comfortable no complaints okay for diet s tolerated d/c planning much improved There is an inferior vena cava filter in place. Bowel gas pattern is unremarkable. Considerable stool is seen in the transverse and distal colon. There is extensive pelvic deformity, with loss of the left femoral head, chronic dislocation of the left femur, and extensive pelvic deformity, particularly on the left. Adi project over the upper pelvis Impression: Possible constipation. pending placement Nonobstructed bowel gas pattern. Moderate fecal retention of the ascending colon and sigmoid colon. The degree of stool burden has increased from October 25, 2019. IVC filter, incidentally noted. Partial subluxation of the right hip. Osteotomy of the proximal left femur with deformity of the bilateral pubic rami and left acetabulum, unchanged. 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 [place] Shaped, Full Thickness Sacral Pressure Injury which extends into L ischium. (L)15.4cm x (W)18cm x (D)2.4cm, Undermining clockwise 10-2 by 7.7cm @ 11o'clock. Base of wound is moist,pink with scattered slough at base of wound. Bone is palpable at the Base. No odor or exudate noted. Scattered partial thickness wounds and Serous filled blisters noted to R trochanteric /R Hip areas. Historical scar noted to L groin, L Hip L Buttocks. Bony protrusion noted at L Hip. Full thickness Pressure Injury R Ischium(L)5.4cm x(W)6.9cm x (D)1.8cm, Undermining clockwise 1-4 by 2.7cm @2o'clock, Tunneling@7o'clock 2.9cm. Base of wound is moist pink with scattered slough. Scattered slough noted along borders. NO odor or exudate noted. Stable dry eschar noted to medial R knee 0.7cm x (W)0.4cm. Periwound is erythematous and indurated. No elevation in skin temp noted. L heel has shaved appearance secondary to Hx of Pressure Injuries. Base of heel is pale pink. Bone is palpable. Small area of slough noted within compromised area(L)0.6cm x (W)0.8cm. L Heel Also has shaved appearance with hypertrophic scarring. Base of compromised area is pale pink, Bone is palpable, with scattered loose, dry and scaly skin. Tx.Plan: Cleanse Sacral Wound and R Ischial wounds with Dakin's 0.125% gian. Loosely pack wounds with Hydrogel impregnated Kerlix. Apply Moisture Barrier Paste periwound. Cover with ABD Pads secure with Tegaderm drsg.Daily and prn. Apply Triad Paste to R Hip/R trochanteric areas.Cover with Optifoam drsg. Change every 7 days and prn. Apply Betadine to Medial R Knee. Cover with Optifoam drsg. Change every 7 days and prn. Apply Betadine to R and L Heels. Cover each Heel with Optifoam drsgs. Change every 7 days and prn. Cover Bony Prominences as needed with Optifoam drsgs. Reposition at least every 2 [address] tolerated[address] Pillow between knees. Off-load heels with pillow. APM/SUMI Mattress overlay DAILY ESTIMATED NEEDS: Needs based on Advanced wounds, wt loss/ 40.18kg 35-40 kcals/kg 1510-1797 total kcals 1.5-2.0 g protein/kg 60-80 g total protein 25-35ml/kcal mL/kg 9218-3496 total fluid mLs NUTRITION DIAGNOSIS: Increased kcal/prot/micronutrients needs R/T wound healing and underweight status as evidenced by pt admitted w/ multiple advanced wounds, refer to WC eval, pt now w/ further 3% unfavorable wt loss, currently BMI underweight per guidelines, @62% of [place] Body Weight. 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 There is distention of the rectum with feces, rectal diameter 70 mm. There is some thickening of the rectal wall. The appendix is not definitely visualized, but no findings to suggest acute appendicitis are evident. There is considerable stool throughout the colon. There appears to be rectal incontinence of stool despite the diverting colostomy. Cornelius Salgado Nov 26, 2019 16:52
--- NOTE | 2019-11-26 19:42 | Cardiac Electrophysiology PN ---
Assessment/Plan Assessment/Plan 1. S/P Septic shock. on Midodrine, iv fluids and antibiotic 2. Bradycardia. Resolved. 3. Paraplegia. 4. Urinary tract infection, 5. Decubitus ulcers with sacral decubitus. 6. S/P Ileostomy/ 7. Polyuria, DI. On NS, Salt tablets Placement pending Subjective Subjective Alert in NAD. No events Objective Last 24 Hour Vital Signs Date Time Temp Pulse Resp B/P (MAP) Pulse Ox O2 Delivery O2 Flow Rate FiO2 11/26/19 15:55 98.5 63 18 125/69 (87) 98 11/26/19 11:56 98.3 80 18 116/63 (80) 98 11/26/19 08:30 Room Air 11/26/19 08:00 99.0 83 18 113/61 (78) 98 11/26/19 04:00 99.5 87 18 109/57 (74) 97 11/26/19 00:00 98.4 74 18 90/60 (70) 95 11/25/19 21:00 Room Air 11/25/19 20:00 98.3 68 19 103/53 (70) 99 Intake and Output 11/25/19 11/26/19 19:00 07:00 Intake Total 500 ml 950 ml Output Total 950 ml 1600 ml Balance -450 ml -650 ml Intake Oral 400 ml IV Total 550 ml Other 500 ml Output Urine Total 950 ml 1600 ml # Bowel Movements 1 1 Objective HEAD AND NECK: No JVD. LUNGS: Coarse rhonchi. CARDIOVASCULAR: Regular S1 and S2 with no gallop. ABDOMEN: Soft.S/P Ileostomy EXTREMITIES: No pitting edema, however, has pressure ulcers. Carloz Estes MD Nov 26, 2019 19:42
[2019-11-26 20:00] VITALS: BP 103/40
[2019-11-26] MEDS: Dyna-Hex 2% Top Sol 2oz TOPIC SCH (20:06)
[2019-11-27] VITALS (8 sets, daily range): BP systolic 82–134; BP diastolic 44–110
[2019-11-27] MEDS: HYDROcodone/Acetamin 5/325 tab ORAL PRN ×4 (01:21→22:24)
[2019-11-27] MEDS: Midodrine 10mg tab ORAL SCH ×3 (05:05→22:23)
--- NOTE | 2019-11-27 07:24 | General Progress Note ---
Assessment/Plan Assessment/Plan: 59 year old man who presents from [facility] with weakness, encephalopathy, concern for septic shock, possible from UTI. #Acute Left Popliteal DVT -Pt has IVC filter -D/w Heme, cont eliquis 2.5 BID -monitor for signs of bleeding -d/c HSQ ppx given pt on eliquis #Fever #Septic shock- resolved #Proteus UTI #Actinobacter UTI, GPC UTI #Acute metabolic encephalopathy - resolved #Paraplegia #Sacral pressure ulcer, present on admit - Periods of hypotension and fever through hospitalization, VSS now - Covid 19 - negative - S/p vancomycin, cefepime, and flagyl - UCx on 11/19 positive for actinobacter and GPC - Spoke with surgery, reviewed CT findings, sacral pressure ulcer does not appear to be infected, ct findings consistent w/sacral ulcer - Cont Local wound care and offloading - Fever 101.7 on 11/20, repeat BCx ordered however pt refused labs - 10/20 CXR w/no acute process - fever 100.5 on 11/24, repeat BCx and labs ordered, d/w RN and ID, OK to draw from PICC line --> CBC with no leukocytosis - 11/24 BCx NGTD, cont to follow for final cx - Appreciate ID consult --> polymyxin and zosyn #Sacral Decubitus Ulcer -CT abd/pel on 11/22/19 w/ subcutaneous gas -d/w with surgery, reviewed CT findings, sacral pressure ulcer does not appear to be infected, ct findings consistent w/sacral ulcer -wound care daily -appreciate wound care recs -abx per ID as above #Stool Impaction - improved -seen on CT abd on 11/22/2019 -s/p disimpaction by general sx with symptomatic improvement -cont Docusate-senna daily -PRN dulcolax #Fungal UTI - resolved, s/p treatment - Patient is high risk for fungemia - Diflucan 11/16 - 11/23 -Appreciate ID Consult #Sinus Bradycardia - resolved -continue telemetry -EP following 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 -Evaluated by endocrine for adrenal insufficiency -AM cortisol normal however patient continues to have labile BP and hyponatremia - Appreciate Nephrology consult - Appreciate Endocrine consult - Will continue Florinef, Salt Tab, and DDAVP - Continue Midodrine given labile BP - CT Brain without masses noted, will defer MRI - Refusing labs periodically #Hyponatremia - resolved #Hypokalemia - resolved -Intermittently refusing labs -Replete when necessary -On DDAVP intranasal #Anemia, acute on chronic - stable -s/p 2 units RBC 10/28 -Hematology following, no signs of overt bleeding - Continue Iron tab - Keep Hb >7 #Chronic 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 Appreciate referrals placed by CM. I spent 26 minutes on this patient's care today, and 17 mins was dedicated to counseling and care coordination. Time of note doesn't reflect time of encounter. Subjective Allergies: Coded Allergies: No Known Allergies (Unverified , 08/15/19) Subjective No acute events overnight. AVSS. Pt notes constipation pain a few days ago but is now improved. Pt denies f/c, n/v, CP, SOB, abd pain at this time. Pending placement due to insurance. Objective Last 24 Hour Vital Signs Date Time Temp Pulse Resp B/P (MAP) Pulse Ox O2 Delivery O2 Flow Rate FiO2 11/27/19 04:00 98.2 78 20 98/46 (63) 97 11/27/19 00:00 98.3 70 19 98/44 (62) 98 11/26/19 21:00 Room Air 11/26/19 20:00 98.0 63 19 103/40 (61) 98 11/26/19 15:55 98.5 63 18 125/69 (87) 98 11/26/19 11:56 98.3 80 18 116/63 (80) 98 11/26/19 08:30 Room Air 11/26/19 08:00 99.0 83 18 113/61 (78) 98 Intake and Output 11/26/19 11/27/19 19:00 07:00 Intake Total 1970 ml 900 ml Output Total 1200 ml Balance 1970 ml -300 ml Intake Oral 1420 ml 350 ml IV Total 550 ml 550 ml Output Urine Total 1200 ml # Bowel Movements 1 1 Height (Feet): 5 Height (Inches): 7.00 Weight (Pounds): 114 Objective General Appearance: no apparent distress, alert, laying in bed comfortably, thin, cachetic HEENT: NCAT, EOMI, MMM Neck: non-tender, supple Cardiovascular: normal rate, regular rhythm Respiratory/Chest: chest wall non-tender, normal breath sounds, no wheezing/ rales/rhonchi, no accessory muscle usage Abdomen: normal bowel sounds, non tender, soft, Colostomy in place w/brown stool c/d/i, PEG c/d/i Extremities: contractures in b/l lower extremity 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 Nov 27, 2019 07:24
[2019-11-27] MEDS: Desmopressin Nasal 5ml NASAL SCH (08:39)
[2019-11-27] MEDS: Eliquis 2.5mg tablet ORAL SCH ×2 (08:39→17:20)
[2019-11-27] MEDS: Zinc Sulfate 220mg ORAL SCH (08:39)
[2019-11-27] MEDS: Sodium Chloride 1gm Tab ORAL SCH ×3 (08:39→17:20)
[2019-11-27] MEDS: Docusate Sod/Senna tab ORAL SCH ×2 (08:39→17:19)
--- NOTE | 2019-11-27 08:44 | General Progress Note ---
Assessment/Plan Assessment/Plan: (1) Sacral decubitus ulcer (2) Paraplegia (3) Neuropathic pain Patient to be continued on [place] and Neurontin D/w Dr. Celaya and he concurred. Subjective Date patient seen: Nov 27, 2019 Time patient seen: 07:00 - am Allergies: Coded Allergies: No Known Allergies (Unverified , 08/15/19) Subjective REVIEW OF SYSTEMS: Denies rash, fever, chills, sweating, dizziness, drowsiness, blurred vision, sore throat, or change in weight. No shortness of breath or chest pain. No nausea, vomiting, diarrhea, blood in stool or urine. CHIEF COMPLAINT: Sacral decubitus ulcer. HISTORY OF PRESENT ILLNESS: This is a 59-year-old male who has been seen on the Med/Surg floor of [facility]. Patient showing no signs of pain or distress, in bed. Pain has been tolerated on 4 doses of [place] in the last 24hrs. No new complaints at this time. Objective Last 24 Hour Vital Signs Date Time Temp Pulse Resp B/P (MAP) Pulse Ox O2 Delivery O2 Flow Rate FiO2 11/27/19 04:00 98.2 78 20 98/46 (63) 97 11/27/19 00:00 98.3 70 19 98/44 (62) 98 11/26/19 21:00 Room Air 11/26/19 20:00 98.0 63 19 103/40 (61) 98 11/26/19 15:55 98.5 63 18 125/69 (87) 98 11/26/19 11:56 98.3 80 18 116/63 (80) 98 Intake and Output 11/26/19 11/27/19 19:00 07:00 Intake Total 1970 ml 900 ml Output Total 1200 ml Balance 1970 ml -300 ml Intake Oral 1420 ml 350 ml IV Total 550 ml 550 ml Output Urine Total 1200 ml # Bowel Movements 1 1 Height (Feet): 5 Height (Inches): 7.00 Weight (Pounds): 114 Objective PHYSICAL EXAMINATION: GENERAL: Alert, awake, and oriented. LUNGS: Decreased breath sounds bilaterally. HEART: S1, S2 regular. ABDOMEN: Colostomy bag noted. EXTREMITIES: Upper and lower extremity range of motion is decreased due to the patient's condition. Contracture is noted. Sensory is reduced. Reflexes are not obtainable. No adenopathy. Zedner,Danny N. PA Nov 27, 2019 08:43
--- NOTE | 2019-11-27 10:35 | General Progress Note ---
Advance Care Planning Advance Care Planning Advance Care Planning Date of Discussion: 11/27/19 Additional 30 minutes of non face to face time was spent in review of medical records, arrangement of care and discussion with consultants involved with care A [id number] discussion with the patient regarding the patient's advanced care planning took place during this hospitalization on the above date. The discussion included the explanation and discussion of advance directives and associated forms/documents, as well as the patient's current code status. We also discussed at length the patient's medical conditions (both acute and chronic), general prognosis, treatment options, and goals of care. The following summarizes the discussion: Advance Care Planning/Goals of Care: - Will attempt to fill out an AD and/or POLST with the patient prior to discharge, if not already completed - Continue current evaluation and management of any acute and chronic medical issues - Will continue to support the patient/family - Will continue to discuss both short- and long-term goals of care DPOA-HC/Surrogate Decision Maker: None currently appointed Code Status: Full Code Advanced Care Planning Forms/Documents Completed: Deferred until later encounter/visit A total of 31 minutes was spent on this discussion, including counseling, answering questions, and completing, if any, pertinent advanced care planning forms/documents. Time of note may not reflect time of encounter. Gregg Curtis MD Nov 27, 2019 10:35
--- NOTE | 2019-11-27 10:44 | Hematology/Onc Progress Note ---
Assessment/Plan Assessment/Plan # Acute left upstream popliteal vein deep venous thrombosis IVC filter in place --> given acute nature, will continue eliquis --> HOWEVER, if drop in h/h consider to hold eliquis as has ivc in place --> IVC Filter placed earlier # Anemia rule out gi bleed, as well as iron deficiency --> hgb 8.2-->7.2-->7.1->6.9-->8.6-->8.3-->9.3-->8.3-->9.3--.9.2->8.7 --> anemia panel ordered--> cw acd --> occult blood pending-->neg --> gi eval prn --> transfuse as needed --> transfuse 2 units 10/27 --> po iron to continue # Coagulopathy with elev ptt/inr --> vitk and ffp as needed --> no bleeding noted at this time # Thrombocytosis likely reactive process --> plt 398-->608-->605 --> abx as needed # Sepsis due to uti, with Hypotension likely due to septic shock. Was diuresing heavily at 300 mL an hour. --> Continue on midodrine and dopamine. --> ABX vancomycin and meropenem and amikacin-->christel/vanc/difluc-->vanc/ linezolid --> before requires pressors --> as per cards # Bradycardia. --> per cards # Paraplegia. # LLQ colostomy # Decubitus ulcers with sacral decubitus. # Dvt eliquis Appreciate consultation and chandrakant RN Subjective HEENT: Denies: no symptoms, eye pain, blurred vision, tearing, double vision, ear pain, ear discharge, nose pain, nose congestion, throat pain, throat swelling, mouth pain, mouth swelling, other Cardiovascular: Denies: no symptoms, chest pain, edema, irregular heart rate, lightheadedness, palpitations, syncope, other Respiratory: Denies: no symptoms, cough, shortness of breath, SOB with excertion, SOB at rest, sputum, wheezing, other Gastrointestinal/Abdominal: Denies: no symptoms, abdomen distended, abdominal pain, black stools, tarry stools, blood in stool, constipated, diarrhea, difficulty swallowing, nausea, poor appetite, poor fluid intake, rectal bleeding , vomiting, other Genitourinary: Denies: no symptoms, burning, discharge, frequency, flank pain, hematuria, incontinence, pain, urgency, other Neurologic/Psychiatric: Denies: no symptoms, anxiety, depressed, emotional problems, headache, numbness, paresthesia, pre-existing deficit, seizure, tingling, tremors, weakness, other Endocrine: Denies: no symptoms, excessive sweating, flushing, intolerance to cold, intolerance to heat, increased hunger, increased thirst, increased urine, unexplained weight gain, unexplained weight loss, other Hematologic/Lymphatic: Denies: no symptoms, anemia, easy bleeding, easy bruising, adenopathy, other Allergies: Coded Allergies: No Known Allergies (Unverified , 08/15/19) Subjective 10/27 labs again refused this am, yesterday was low, chandrakant england in icu 10/28 remains in icu, for 2units prbc this am, chandrakant england, no other events 10/29 s/p prbc, tolerated it well, no bleeding, on 1mcg levo, in icu 10/30 on abx, on levo and overnight no other events, chandrakant [employer]\ 10/31 wounds improved, labs noted, no bleeding, hgb lower, refusing care/wound care 11/01 labs noted, no bleeding, no hematochezia, no hemoptysis, cbc ordered 11/02 meds reviewed, labs noted, no bleeding, chandrakant eng[place], no major changes, hgb 8.3 11/04 labs have been noted, no bleeding, meds reviewed, no hemolysis 11/05 functional colostomy llq, no bleeding, cbc is pending for am 11/06 labs have been refused, hgb 8.3, no bleeding, wbc is higher in am 11/07 labs have initially been refused, no bleeding in am, wbc 13, on abx 11/08 labs reviewed, no bleeding, chandrakant eng[place], cbc is pending for am 11/09 is on vanc/difl/christel, no other changes, cbc and bmp are noted 11/11 has been asymptomatic, eating breakfast, hgb 9.3, on abx 11/12 labs are noted, no bleeding, chandrakant eng[place], no major changes, abx 11/13 is currently on christel and vanc, dw rn, no major bleeding, on hep sq 11/14 labs are noted, does not want to be changed currently, cbc/bmp ordered 11/15 labs reviewed, c/o pain at picc line, no bleeding, meds noted, hgb 8.7 11/16 labs are noted, has been cleared, for dc planning to snf 11/[address], no bleeding, meds noted, continues to be on heparin sq 11/19 labs noted, no bleeding, comfortable, cbc is ntoed and bmp for am labs 11/[address], with dressing change as needed, meds noted, labs reviewed 11/[address], is on vanc/christel seen by id, no major changes 11/22 labs reviewed, with colostomy, donohue catheter, ct of a/p noted 11/23 meds noted, no bleeding, have ordered for eliquis and chandrakant Razo in am 11/25 labs noted, no bleeding, on blood thinner is on vanc/linezolid, hgb 8 11/26 remains on eliquis, no bleeding, meds noted, eating breakfast this am Objective Objective Current Medications Medications (Trade) Dose Ordered Sig/Mya Route PRN Reason Start Time Stop Time Status Last Admin Dose Admin Acetaminophen (Tylenol) 650 mg Q4H PRN ORAL Mild Pain (Pain Scale 1-3) 11/05/19 14:00 11/30/19 13:59 11/24/19 14:27 Acetaminophen (Tylenol) 650 mg Q4H PRN ORAL Temp >100.5 11/05/19 16:00 12/05/19 15:59 11/25/19 04:15 Acetaminophen/ Hydrocodone Bitart ([place] 5/325) 1 tab Q6H PRN ORAL Severe Pain (Pain Scale 7-10) 11/24/19 10:00 12/01/19 09:59 11/27/19 08:46 Apixaban (Eliquis) 2.5 mg BID ORAL 11/24/19 09:00 02/22/20 08:59 11/27/19 08:39 Bisacodyl (Dulcolax) 10 mg DAILYPRN PRN RECTAL Constipation 11/24/19 07:45 02/22/20 07:44 Chlorhexidine Gluconate (Simran-Hex 2%) 1 applic DAILY@2000 TOPIC 8/31/20 20:00 02/11/20 19:59 11/26/19 20:06 Desmopressin Acetate (Ddavp) 1 spray DAILY NASAL 11/14/19 09:00 02/07/20 17:59 11/27/19 08:39 Dextrose (Dextrose 50%) 25 ml Q30M PRN IV Hypoglycemia 11/05/19 13:30 01/21/20 17:29 Dextrose (Dextrose 50%) 50 ml Q30M PRN IV Hypoglycemia 11/05/19 13:30 01/21/20 17:29 Famotidine (Pepcid) 20 mg DAILY ORAL 11/06/19 09:00 01/28/20 09:29 11/27/19 08:39 Ferrous Sulfate (Feosol) 325 mg DAILY ORAL 11/06/19 09:00 01/22/20 08:59 11/27/19 08:39 Fludrocortisone Acetate (Florinef) 0.1 mg DAILY ORAL 11/15/19 09:00 12/15/19 08:59 11/27/19 08:39 Gabapentin (Neurontin) 400 mg Q8HR ORAL 11/05/19 14:00 12/03/19 21:59 11/27/19 05:05 Linezolid (Zyvox) 600 mg Q12HR ORAL 11/24/19 11:00 11/29/19 10:59 11/27/19 08:39 Magnesium Hydroxide (Mom) 30 ml HSPRN PRN ORAL Constipation 11/13/19 11:15 12/13/19 11:14 Midodrine (Pro-Amatine) 10 mg EVERY 8 HOURS ORAL 11/05/19 14:00 01/21/20 17:59 11/27/19 05:05 Naloxone HCl (Narcan) 0.2 mg Q2M PRN IVP RESPRITORY DEPRESSION RR<8 11/24/19 10:15 02/22/20 10:14 Polymyxin B Sulfate 085935 units/Dextrose 550 ml @ 550 mls/hr EVERY 12 HOURS IV 11/24/19 21:00 12/01/19 20:59 11/26/19 20:06 Senna/Docusate Sodium (Haley-Colace) 1 tab TWICE A DAY ORAL 11/24/19 09:00 12/24/19 08:59 11/27/19 08:39 Sodium Chloride (NaCl) 1 gm THREE TIMES A DAY ORAL 11/09/19 13:00 12/09/19 12:59 11/27/19 08:39 Zinc Sulfate (Zinc Sulfate) 220 mg DAILY ORAL 11/06/19 09:00 01/22/20 08:59 11/27/19 08:39 Last 24 Hour Vital Signs Date Time Temp Pulse Resp B/P (MAP) Pulse Ox O2 Delivery O2 Flow Rate FiO2 11/27/19 09:16 98.2 11/27/19 08:00 97.3 76 17 134/73 (93) 98 11/27/19 04:00 98.2 78 20 98/46 (63) 97 11/27/19 00:00 98.3 70 19 98/44 (62) 98 11/26/19 21:00 Room Air 11/26/19 20:00 98.0 63 19 103/40 (61) 98 11/26/19 15:55 98.5 63 18 125/69 (87) 98 11/26/19 11:56 98.3 80 18 116/63 (80) 98 11/26/19 08:30 Room Air 11/26/19 08:00 99.0 83 18 113/61 (78) 98 11/26/19 04:00 99.5 87 18 109/57 (74) 97 11/26/19 00:00 98.4 74 18 90/60 (70) 95 11/25/19 21:00 Room Air 11/25/19 20:00 98.3 68 19 103/53 (70) 99 11/25/19 16:00 98.8 84 18 128/72 (90) 99 11/25/19 12:00 98.1 63 18 93/54 (67) 95 Intake and Output 11/26/19 11/27/19 19:00 07:00 Intake Total 1970 ml 900 ml Output Total 1200 ml Balance 1970 ml -300 ml Intake Oral 1420 ml 350 ml IV Total 550 ml 550 ml Output Urine Total 1200 ml # Bowel Movements 1 1 Labs Test 11/25/19 09:45 White Blood Count 8.8 K/UL (4.8-10.8) Red Blood Count 3.04 M/UL (4.70-6.10) Hemoglobin 8.0 G/DL (14.2-18.0) Hematocrit 25.6 % (42.0-52.0) Mean Corpuscular Volume 84 FL (80-99) Mean Corpuscular Hemoglobin 26.4 PG (27.0-31.0) Mean Corpuscular Hemoglobin Concent 31.5 G/DL (32.0-36.0) Red Cell Distribution Width 15.6 % (11.6-14.8) Platelet Count 376 K/UL (150-450) Mean Platelet Volume 4.6 FL (6.5-10.1) Neutrophils (%) (Auto) 63.6 % (45.0-75.0) Lymphocytes (%) (Auto) 25.4 % (20.0-45.0) Monocytes (%) (Auto) 8.4 % (1.0-10.0) Eosinophils (%) (Auto) 1.5 % (0.0-3.0) Basophils (%) (Auto) 1.1 % (0.0-2.0) Sodium Level 138 MMOL/L (136-145) Potassium Level 3.8 MMOL/L (3.5-5.1) Chloride Level 101 MMOL/L (98-107) Carbon Dioxide Level 28 MMOL/L (21-32) Anion Gap 9 mmol/L (5-15) Blood Urea Nitrogen 14 mg/dL (7-18) Creatinine 0.6 MG/DL (0.55-1.30) Estimat Glomerular Filtration Rate > 60 mL/min (>60) Glucose Level 111 MG/DL (74-106) Calcium Level 9.7 MG/DL (8.5-10.1) Height (Feet): 5 Height (Inches): 7.00 Weight (Pounds): 114 Objective Physical Exam General Appearance: lethargic Lines, tubes and drains: peripheral, central line HEENT: normocephalic Neck: non-tender, normal alignment Respiratory/Chest: lungs clear Cardiovascular/Chest: normal peripheral pulses, normal rate, regular rhythm Abdomen: normal bowel sounds, non tender ++ llq colostomy : ++Martínez Geiger MD Nov 27, 2019 10:44
[2019-11-27] MEDS: Polymyxin B Sulfate 500,000 units in D5W 550ml IV SCH ×2 (10:48→22:23)
--- NOTE | 2019-11-27 10:48 | Diagnostic Imaging Report ---
Procedure: XRAY Chest 1v Reason for study: Shortness of breath. Comparison films: 11/25/2019. FINDINGS: Right PICC line remains in place. Vascularity is normal. There are linear atelectasis in both lung bases. Cardiac and mediastinal silhouette are within normal limits. CP angles are sharp. The bony thorax appear unremarkable. IMPRESSION: Bibasilar linear atelectasis.
--- NOTE | 2019-11-27 10:52 | Pulmonology Progress Note ---
Subjective ROS Limited/Unobtainable: Yes Interval Events: no fever or leucocytosis Constitutional: Denies: fever HEENT: Repors: no symptoms Respiratory: Reports: no symptoms Cardiovascular: Reports: no symptoms Gastrointestinal/Abdominal: Denies: nausea, vomiting, diarrhea Genitourinary: Reports: no symptoms Psychiatric: Denies: depression Skin: Denies: rash Musculoskeletal: Denies: pain Allergies: Coded Allergies: No Known Allergies (Unverified , 08/15/19) All Systems: reviewed and negative except above Objective Last 24 Hour Vital Signs Date Time Temp Pulse Resp B/P (MAP) Pulse Ox O2 Delivery O2 Flow Rate FiO2 11/27/19 09:16 98.2 11/27/19 08:00 97.3 76 17 134/73 (93) 98 11/27/19 04:00 98.2 78 20 98/46 (63) 97 11/27/19 00:00 98.3 70 19 98/44 (62) 98 11/26/19 21:00 Room Air 11/26/19 20:00 98.0 63 19 103/40 (61) 98 11/26/19 15:55 98.5 63 18 125/69 (87) 98 11/26/19 11:56 98.3 80 18 116/63 (80) 98 Intake and Output 11/26/19 11/27/19 19:00 07:00 Intake Total 1970 ml 900 ml Output Total 1200 ml Balance 1970 ml -300 ml Intake Oral 1420 ml 350 ml IV Total 550 ml 550 ml Output Urine Total 1200 ml # Bowel Movements 1 1 General Appearance: no acute distress HEENT: normocephalic Respiratory: chest wall non-tender, lungs clear Cardiovascular: normal peripheral pulses, regular rhythm Abdomen: normal bowel sounds Extremities: no cyanosis Microbiology Date/Time Source Procedure Growth Status 11/25/19 09:45 Blood Blood Culture - Preliminary NO GROWTH AFTER 24 HOURS Resulted 11/25/19 09:35 Blood Blood Culture - Preliminary NO GROWTH AFTER 24 HOURS Resulted Current Medications Medications (Trade) Dose Ordered Sig/Mya Route PRN Reason Start Time Stop Time Status Last Admin Dose Admin Acetaminophen (Tylenol) 650 mg Q4H PRN ORAL Mild Pain (Pain Scale 1-3) 11/05/19 14:00 11/30/19 13:59 11/24/19 14:27 Acetaminophen (Tylenol) 650 mg Q4H PRN ORAL Temp >100.5 11/05/19 16:00 12/05/19 15:59 11/25/19 04:15 Acetaminophen/ Hydrocodone Bitart ([place] 5/325) 1 tab Q6H PRN ORAL Severe Pain (Pain Scale 7-10) 11/24/19 10:00 12/01/19 09:59 11/27/19 08:46 Apixaban (Eliquis) 2.5 mg BID ORAL 11/24/19 09:00 02/22/20 08:59 11/27/19 08:39 Bisacodyl (Dulcolax) 10 mg DAILYPRN PRN RECTAL Constipation 11/24/19 07:45 02/22/20 07:44 Chlorhexidine Gluconate (Simran-Hex 2%) 1 applic DAILY@2000 TOPIC 11/13/19 20:00 02/11/20 19:59 11/26/19 20:06 Desmopressin Acetate (Ddavp) 1 spray DAILY NASAL 11/14/19 09:00 02/07/20 17:59 11/27/19 08:39 Dextrose (Dextrose 50%) 25 ml Q30M PRN IV Hypoglycemia 11/05/19 13:30 01/21/20 17:29 Dextrose (Dextrose 50%) 50 ml Q30M PRN IV Hypoglycemia 11/05/19 13:30 01/21/20 17:29 Famotidine (Pepcid) 20 mg DAILY ORAL 11/06/19 09:00 01/28/20 09:29 11/27/19 08:39 Ferrous Sulfate (Feosol) 325 mg DAILY ORAL 11/06/19 09:00 01/22/20 08:59 11/27/19 08:39 Fludrocortisone Acetate (Florinef) 0.1 mg DAILY ORAL 11/15/19 09:00 12/15/19 08:59 11/27/19 08:39 Gabapentin (Neurontin) 400 mg Q8HR ORAL 11/05/19 14:00 12/03/19 21:59 11/27/19 05:05 Linezolid (Zyvox) 600 mg Q12HR ORAL 11/24/19 11:00 11/29/19 10:59 11/27/19 08:39 Magnesium Hydroxide (Mom) 30 ml HSPRN PRN ORAL Constipation 11/13/19 11:15 12/13/19 11:14 Midodrine (Pro-Amatine) 10 mg EVERY 8 HOURS ORAL 11/05/19 14:00 01/21/20 17:59 11/27/19 05:05 Naloxone HCl (Narcan) 0.2 mg Q2M PRN IVP RESPRITORY DEPRESSION RR<8 11/24/19 10:15 02/22/20 10:14 Polymyxin B Sulfate 240461 units/Dextrose 550 ml @ 550 mls/hr EVERY 12 HOURS IV 11/24/19 21:00 12/01/19 20:59 11/27/19 10:48 Senna/Docusate Sodium (Haley-Colace) 1 tab TWICE A DAY ORAL 11/24/19 09:00 12/24/19 08:59 11/27/19 08:39 Sodium Chloride (NaCl) 1 gm THREE TIMES A DAY ORAL 11/09/19 13:00 12/09/19 12:59 11/27/19 08:39 Zinc Sulfate (Zinc Sulfate) 220 mg DAILY ORAL 11/06/19 09:00 01/22/20 08:59 11/27/19 08:39 Assessment/Plan Assessment/Plan IMPRESSION: 1. Septic shock. resolved 2. Complicated UTI with history of previous ESBL infection. 3. Paraplegia. 4. Sacral decubitus. 5. custodial resident. DISCUSSION: DVT and GI prophylaxes. Continue Oxygen prn, doing well on room air at this time. DC planning Haily Monzon Omar Syed MD Nov 27, 2019 10:52
--- NOTE | 2019-11-27 14:52 | Cardiac Electrophysiology PN ---
Assessment/Plan Assessment/Plan 1. S/P Septic shock. on Midodrine, iv fluids and antibiotic 2. Bradycardia. Resolved. 3. Paraplegia. 4. Urinary tract infection, 5. Decubitus ulcers with sacral decubitus. 6. S/P Ileostomy/ 7. Polyuria, DI. On NS, Salt tablets Placement pending Subjective Subjective Alert in NAD.Placement pending Objective Last 24 Hour Vital Signs Date Time Temp Pulse Resp B/P (MAP) Pulse Ox O2 Delivery O2 Flow Rate FiO2 11/27/19 12:45 91/59 (70) 11/27/19 12:00 98.3 78 18 82/49 (60) 97 11/27/19 10:50 Room Air 11/27/19 09:16 98.2 11/27/19 08:00 97.3 84 17 93/60 (71) 98 11/27/19 04:00 98.2 78 20 98/46 (63) 97 11/27/19 00:00 98.3 70 19 98/44 (62) 98 11/26/19 21:00 Room Air 11/26/19 20:00 98.0 63 19 103/40 (61) 98 11/26/19 15:55 98.5 63 18 125/69 (87) 98 Intake and Output 11/26/19 11/27/19 19:00 07:00 Intake Total 1970 ml 900 ml Output Total 1200 ml Balance 1970 ml -300 ml Intake Oral 1420 ml 350 ml IV Total 550 ml 550 ml Output Urine Total 1200 ml # Bowel Movements 1 1 Microbiology Date/Time Source Procedure Growth Status 11/25/19 09:45 Blood Blood Culture - Preliminary NO GROWTH AFTER 24 HOURS Resulted 11/25/19 09:35 Blood Blood Culture - Preliminary NO GROWTH AFTER 24 HOURS Resulted Objective HEAD AND NECK: No JVD. LUNGS: Coarse rhonchi. CARDIOVASCULAR: Regular S1 and S2 with no gallop. ABDOMEN: Soft.S/P Ileostomy EXTREMITIES: No pitting edema, however, has pressure ulcers. Carloz Estes MD Nov 27, 2019 14:52
--- NOTE | 2019-11-27 16:53 | Surgery Progress Note ---
Surgery Progress Note Subjective Symptoms: improved, tolerating diet Objective Last 24 Hour Vital Signs Date Time Temp Pulse Resp B/P (MAP) Pulse Ox O2 Delivery O2 Flow Rate FiO2 11/27/19 16:18 98.0 11/27/19 15:58 98.0 74 19 134/110 (118) 98 11/27/19 15:48 134/110 (118) 11/27/19 12:45 91/59 (70) 11/27/19 12:00 98.3 78 18 82/49 (60) 97 11/27/19 10:50 Room Air 11/27/19 08:00 97.3 84 17 93/60 (71) 98 11/27/19 04:00 98.2 78 20 98/46 (63) 97 11/27/19 00:00 98.3 70 19 98/44 (62) 98 11/26/19 21:00 Room Air 11/26/19 20:00 98.0 63 19 103/40 (61) 98 I&O Intake and Output 11/26/19 11/27/19 19:00 07:00 Intake Total 1970 ml 900 ml Output Total 1200 ml Balance 1970 ml -300 ml Intake Oral 1420 ml 350 ml IV Total 550 ml 550 ml Output Urine Total 1200 ml # Bowel Movements 1 1 Dressing: other Wound: other Cardiovascular: RSR Respiratory: decreased breath sounds Abdomen: soft, non-tender, present bowel sounds Extremities: no edema, no tenderness, no cyanosis Plan Problems: (1) Abdominal distension Assessment & Plan: abd distention soft non tender ostomy viable and reduced KUB ordered pending results improved comfortable no complaints okay for diet s tolerated d/c planning much improved There is an inferior vena cava filter in place. Bowel gas pattern is unremarkable. Considerable stool is seen in the transverse and distal colon. There is extensive pelvic deformity, with loss of the left femoral head, chronic dislocation of the left femur, and extensive pelvic deformity, particularly on the left. [place] project over the upper pelvis Impression: Possible constipation. pending placement Nonobstructed bowel gas pattern. Moderate fecal retention of the ascending colon and sigmoid colon. The degree of stool burden has increased from October 25, 2019. IVC filter, incidentally noted. Partial subluxation of the right hip. Osteotomy of the proximal left femur with deformity of the bilateral pubic rami and left acetabulum, unchanged. 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 [place] Shaped, Full Thickness Sacral Pressure Injury which extends into L ischium. (L)15.4cm x (W)18cm x (D)2.4cm, Undermining clockwise 10-2 by 7.7cm @ 11o'clock. Base of wound is moist,pink with scattered slough at base of wound. Bone is palpable at the Base. No odor or exudate noted. Scattered partial thickness wounds and Serous filled blisters noted to R trochanteric /R Hip areas. Historical scar noted to L groin, L Hip L Buttocks. Bony protrusion noted at L Hip. Full thickness Pressure Injury R Ischium(L)5.4cm x(W)6.9cm x (D)1.8cm, Undermining clockwise 1-4 by 2.7cm @2o'clock, Tunneling@7o'clock 2.9cm. Base of wound is moist pink with scattered slough. Scattered slough noted along borders. NO odor or exudate noted. Stable dry eschar noted to medial R knee 0.7cm x (W)0.4cm. Periwound is erythematous and indurated. No elevation in skin temp noted. L heel has shaved appearance secondary to Hx of Pressure Injuries. Base of heel is pale pink. Bone is palpable. Small area of slough noted within compromised area(L)0.6cm x (W)0.8cm. L Heel Also has shaved appearance with hypertrophic scarring. Base of compromised area is pale pink, Bone is palpable, with scattered loose, dry and scaly skin. Tx.Plan: Cleanse Sacral Wound and R Ischial wounds with Dakin's 0.125% gian. Loosely pack wounds with Hydrogel impregnated Kerlix. Apply Moisture Barrier Paste periwound. Cover with ABD Pads secure with Tegaderm drsg.Daily and prn. Apply Triad Paste to R Hip/R trochanteric areas.Cover with Optifoam drsg. Change every 7 days and prn. Apply Betadine to Medial R Knee. Cover with Optifoam drsg. Change every 7 days and prn. Apply Betadine to R and L Heels. Cover each Heel with Optifoam drsgs. Change every 7 days and prn. Cover Bony Prominences as needed with Optifoam drsgs. Reposition at least every 2 [address] tolerated[address] Pillow between knees. Off-load heels with pillow. APM/SUMI Mattress overlay DAILY ESTIMATED NEEDS: Needs based on Advanced wounds, wt loss/ 40.18kg 35-40 kcals/kg [id number] total kcals 1.5-2.0 g protein/kg 60-80 g total protein 25-35ml/kcal mL/kg 5431-7968 total fluid mLs NUTRITION DIAGNOSIS: Increased kcal/prot/micronutrients needs R/T wound healing and underweight status as evidenced by pt admitted w/ multiple advanced wounds, refer to WC jair, pt now w/ further 3% unfavorable wt loss, currently BMI underweight per guidelines, @62% of [place] Body Weight. 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 There is distention of the rectum with feces, rectal diameter 70 mm. There is some thickening of the rectal wall. The appendix is not definitely visualized, but no findings to suggest acute appendicitis are evident. There is considerable stool throughout the colon. There appears to be rectal incontinence of stool despite the diverting colostomy. Cornelius Salgado Nov 27, 2019 16:53
--- NOTE | 2019-11-27 18:02 | Nephrology Progress Note ---
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 - improved with desmporessin #Shock #UTI # infected sacral pressure ulcer #Acute metabolic encephalopathy #Paraplegia #Sacral pressure ulcer #Hypokalemia #Anemia - continue florinef 0.1mg daily -Continue desmopressin nasal - continue salt tabs 1g TID - continue midodrine 10 TID - endocrine eval noted - r/o adrenal insuffiency - antibiotics per ID - monitor lytes - avoid nephrotoxins - daily weights - strict I&Os time spent 40 min- greater than 50% on care coordination and counseling Subjective Subjective UOP 2550 labs reviewed on florinef 0.1mg daily Bp stable on nasal desmopressin on salt tabs Objective Objective Last 24 Hour Vital Signs Date Time Temp Pulse Resp B/P (MAP) Pulse Ox O2 Delivery O2 Flow Rate FiO2 11/27/19 16:18 98.0 11/27/19 15:58 98.0 74 19 134/110 (118) 98 11/27/19 15:48 134/110 (118) 11/27/19 12:45 91/59 (70) 11/27/19 12:00 98.3 78 18 82/49 (60) 97 11/27/19 10:50 Room Air 11/27/19 08:00 97.3 84 17 93/60 (71) 98 11/27/19 04:00 98.2 78 20 98/46 (63) 97 11/27/19 00:00 98.3 70 19 98/44 (62) 98 11/26/19 21:00 Room Air 11/26/19 20:00 98.0 63 19 103/40 (61) 98 Intake and Output 11/26/19 11/27/19 19:00 07:00 Intake Total 1970 ml 900 ml Output Total 1200 ml Balance 1970 ml -300 ml Intake Oral 1420 ml 350 ml IV Total 550 ml 550 ml Output Urine Total 1200 ml # Bowel Movements 1 1 Height (Feet): 5 Height (Inches): 7.00 Weight (Pounds): 114 Sienna Georges M.D. Nov 27, 2019 18:02
[2019-11-27] MEDS: Dyna-Hex 2% Top Sol 2oz TOPIC SCH ×2 (22:23→22:30)
[2019-11-28] VITALS: BP 93/48
[2019-11-28 04:00] VITALS: BP 91/48
[2019-11-28] MEDS: HYDROcodone/Acetamin 5/325 tab ORAL PRN ×3 (06:08→22:04)
[2019-11-28] MEDS: Midodrine 10mg tab ORAL SCH ×3 (06:08→22:03)
[2019-11-28 08:00] VITALS: BP 86/44
[2019-11-28] MEDS: Eliquis 2.5mg tablet ORAL SCH ×2 (08:44→17:33)
[2019-11-28] MEDS: Sodium Chloride 1gm Tab ORAL SCH ×3 (08:44→17:36)
[2019-11-28] MEDS: Zinc Sulfate 220mg ORAL SCH (08:44)
[2019-11-28] MEDS: Docusate Sod/Senna tab ORAL SCH ×2 (08:44→17:33)
--- NOTE | 2019-11-28 08:46 | Hematology/Onc Progress Note ---
Assessment/Plan Assessment/Plan # Acute left upstream popliteal vein deep venous thrombosis IVC filter in place --> given acute nature, will continue eliquis --> HOWEVER, if drop in h/h consider to hold eliquis as has ivc in place --> IVC Filter placed earlier # Anemia rule out gi bleed, as well as iron deficiency --> hgb 8.2-->7.2-->7.1->6.9-->8.6-->8.3-->9.3-->8.3-->9.3--.9.2->8.7 --> anemia panel ordered--> cw acd --> occult blood pending-->neg --> gi eval prn --> transfuse as needed --> transfuse 2 units 10/27 --> po iron to continue # Coagulopathy with elev ptt/inr --> vitk and ffp as needed --> no bleeding noted at this time # Thrombocytosis likely reactive process --> plt 398-->608-->605 --> abx as needed # Sepsis due to uti, with Hypotension likely due to septic shock. Was diuresing heavily at 300 mL an hour. --> Continue on midodrine and dopamine. --> ABX vancomycin and meropenem and amikacin-->christel/vanc/difluc-->vanc/ linezolid --> before requires pressors --> as per cards # Bradycardia. --> per cards # Paraplegia. # LLQ colostomy # Decubitus ulcers with sacral decubitus. # Dvt eliquis Appreciate consultation and chandrakant AGRAWAL Subjective Cardiovascular: Denies: no symptoms, chest pain, edema, irregular heart rate, lightheadedness, palpitations, syncope, other Respiratory: Denies: no symptoms, cough, shortness of breath, SOB with excertion, SOB at rest, sputum, wheezing, other Gastrointestinal/Abdominal: Denies: no symptoms, abdomen distended, abdominal pain, black stools, tarry stools, blood in stool, constipated, diarrhea, difficulty swallowing, nausea, poor appetite, poor fluid intake, rectal bleeding , vomiting, other Genitourinary: Denies: no symptoms, burning, discharge, frequency, flank pain, hematuria, incontinence, pain, urgency, other Neurologic/Psychiatric: Denies: no symptoms, anxiety, depressed, emotional problems, headache, numbness, paresthesia, pre-existing deficit, seizure, tingling, tremors, weakness, other Endocrine: Denies: no symptoms, excessive sweating, flushing, intolerance to cold, intolerance to heat, increased hunger, increased thirst, increased urine, unexplained weight gain, unexplained weight loss, other Allergies: Coded Allergies: No Known Allergies (Unverified , 08/15/19) Subjective 10/27 labs again refused this am, yesterday was low, chandrakant rn in icu 10/28 remains in icu, for 2units prbc this am, chandrakant rn, no other events 10/29 s/p prbc, tolerated it well, no bleeding, on 1mcg levo, in icu 10/30 on abx, on levo and overnight no other events, 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\ 10/31 wounds improved, labs noted, no bleeding, hgb lower, refusing care/wound care 11/01 labs noted, no bleeding, no hematochezia, no hemoptysis, cbc ordered 11/02 meds reviewed, labs noted, no bleeding, chandrakant agrawal, no major changes, hgb 8.3 11/04 labs have been noted, no bleeding, meds reviewed, no hemolysis 11/05 functional colostomy llq, no bleeding, cbc is pending for am 11/06 labs have been refused, hgb 8.3, no bleeding, wbc is higher in am 11/07 labs have initially been refused, no bleeding in am, wbc 13, on abx 11/08 labs reviewed, no bleeding, chandrakant agrawal, cbc is pending for am 11/09 is on vanc/difl/christel, no other changes, cbc and bmp are noted 11/11 has been asymptomatic, eating breakfast, hgb 9.3, on abx 11/12 labs are noted, no bleeding, chandrakant agrawal, no major changes, abx 11/13 is currently on christel and vanc, chandrakant agrawal, no major bleeding, on hep sq 11/14 labs are noted, does not want to be changed currently, cbc/bmp ordered 11/15 labs reviewed, c/o pain at picc line, no bleeding, meds noted, hgb 8.7 11/16 labs are noted, has been cleared, for dc planning to snf 11/[address], no bleeding, meds noted, continues to be on heparin sq 11/19 labs noted, no bleeding, comfortable, cbc is ntoed and bmp for am labs 11/[address], with dressing change as needed, meds noted, labs reviewed 11/[address], is on vanc/christel seen by id, no major changes 11/22 labs reviewed, with colostomy, donohue catheter, ct of a/p noted 11/23 meds noted, no bleeding, have ordered for eliquis and chandrakant Razo in am 11/25 labs noted, no bleeding, on blood thinner is on vanc/linezolid, hgb 8 11/26 remains on eliquis, no bleeding, meds noted, eating breakfast this am 11/27 low bp, ns given, meds are reviewed, no major hemolysis, remains on po iron Objective Objective Current Medications Medications (Trade) Dose Ordered Sig/Mya Route PRN Reason Start Time Stop Time Status Last Admin Dose Admin Acetaminophen (Tylenol) 650 mg Q4H PRN ORAL Mild Pain (Pain Scale 1-3) 11/05/19 14:00 11/30/19 13:59 11/24/19 14:27 Acetaminophen (Tylenol) 650 mg Q4H PRN ORAL Temp >100.5 11/05/19 16:00 12/05/19 15:59 11/25/19 04:15 Acetaminophen/ Hydrocodone Bitart ([place] 5/325) 1 tab Q6H PRN ORAL Severe Pain (Pain Scale 7-10) 11/24/19 10:00 12/01/19 09:59 11/28/19 06:08 Apixaban (Eliquis) 2.5 mg BID ORAL 11/24/19 09:00 02/22/20 08:59 11/28/19 08:44 Bisacodyl (Dulcolax) 10 mg DAILYPRN PRN RECTAL Constipation 11/24/19 07:45 02/22/20 07:44 Chlorhexidine Gluconate (Simran-Hex 2%) 1 applic DAILY@1999 TOPIC 11/13/19 20:00 02/11/20 19:59 11/26/19 20:06 Desmopressin Acetate (Ddavp) 1 spray DAILY NASAL 11/14/19 09:00 02/07/20 17:59 11/27/19 08:39 Dextrose (Dextrose 50%) 25 ml Q30M PRN IV Hypoglycemia 11/05/19 13:30 01/21/20 17:29 Dextrose (Dextrose 50%) 50 ml Q30M PRN IV Hypoglycemia 11/05/19 13:30 01/21/20 17:29 Famotidine (Pepcid) 20 mg DAILY ORAL 11/06/19 09:00 01/28/20 09:29 11/28/19 08:43 Ferrous Sulfate (Feosol) 325 mg DAILY ORAL 11/06/19 09:00 01/22/20 08:59 11/28/19 08:43 Fludrocortisone Acetate (Florinef) 0.1 mg DAILY ORAL 11/15/19 09:00 12/15/19 08:59 11/28/19 08:43 Gabapentin (Neurontin) 400 mg Q8HR ORAL 11/05/19 14:00 12/03/19 21:59 11/28/19 06:08 Linezolid (Zyvox) 600 mg Q12HR ORAL 11/24/19 11:00 11/29/19 10:59 11/28/19 08:44 Magnesium Hydroxide (Mom) 30 ml HSPRN PRN ORAL Constipation 11/13/19 11:15 12/13/19 11:14 Midodrine (Pro-Amatine) 10 mg EVERY 8 HOURS ORAL 11/05/19 14:00 01/21/20 17:59 11/28/19 06:08 Naloxone HCl (Narcan) 0.2 mg Q2M PRN IVP RESPRITORY DEPRESSION RR<8 11/24/19 10:15 02/22/20 10:14 Polymyxin B Sulfate [id number] units/Dextrose 550 ml @ 550 mls/hr EVERY 12 HOURS IV 11/24/19 21:00 12/01/19 20:59 11/27/19 22:23 Senna/Docusate Sodium (Haley-Colace) 1 tab TWICE A DAY ORAL 11/24/19 09:00 12/24/19 08:59 11/28/19 08:44 Sodium Chloride (NaCl) 1 gm THREE TIMES A DAY ORAL 11/09/19 13:00 12/09/19 12:59 11/28/19 08:44 Zinc Sulfate (Zinc Sulfate) 220 mg DAILY ORAL 11/06/19 09:00 01/22/20 08:59 11/28/19 08:44 Last 24 Hour Vital Signs Date Time Temp Pulse Resp B/P (MAP) Pulse Ox O2 Delivery O2 Flow Rate FiO2 11/28/19 08:00 99.1 73 18 86/44 (58) 97 11/28/19 04:00 99.3 77 18 91/48 (62) 97 11/28/19 00:00 98.2 66 18 93/48 (63) 97 11/27/19 21:00 Room Air 11/27/19 20:00 99.5 78 18 105/57 (73) 97 11/27/19 16:18 98.0 11/27/19 15:58 98.0 74 19 134/110 (118) 98 11/27/19 15:48 134/110 (118) 11/27/19 12:45 91/59 (70) 11/27/19 12:00 98.3 78 18 82/49 (60) 97 11/27/19 10:50 Room Air 11/27/19 08:00 97.3 84 17 93/60 (71) 98 11/27/19 04:00 98.2 78 20 98/46 (63) 97 11/27/19 00:00 98.3 70 19 98/44 (62) 98 11/26/19 21:00 Room Air 11/26/19 20:00 98.0 63 19 103/40 (61) 98 11/26/19 15:55 98.5 63 18 125/69 (87) 98 11/26/19 11:56 98.3 80 18 116/63 (80) 98 Intake and Output 11/27/19 11/28/19 19:00 07:00 Intake Total 1550 ml 970 ml Output Total 1500 ml 700 ml Balance 50 ml 270 ml Intake Oral 420 ml IV Total 550 ml 550 ml Other 1000 ml Output Urine Total 1500 ml 700 ml # Bowel Movements 1 Labs Test 11/25/19 09:45 White Blood Count 8.8 K/UL (4.8-10.8) Red Blood Count 3.04 M/UL (4.70-6.10) Hemoglobin 8.0 G/DL (14.2-18.0) Hematocrit 25.6 % (42.0-52.0) Mean Corpuscular Volume 84 FL (80-99) Mean Corpuscular Hemoglobin 26.4 PG (27.0-31.0) Mean Corpuscular Hemoglobin Concent 31.5 G/DL (32.0-36.0) Red Cell Distribution Width 15.6 % (11.6-14.8) Platelet Count 376 K/UL (150-450) Mean Platelet Volume 4.6 FL (6.5-10.1) Neutrophils (%) (Auto) 63.6 % (45.0-75.0) Lymphocytes (%) (Auto) 25.4 % (20.0-45.0) Monocytes (%) (Auto) 8.4 % (1.0-10.0) Eosinophils (%) (Auto) 1.5 % (0.0-3.0) Basophils (%) (Auto) 1.1 % (0.0-2.0) Sodium Level 138 MMOL/L (136-145) Potassium Level 3.8 MMOL/L (3.5-5.1) Chloride Level 101 MMOL/L (98-107) Carbon Dioxide Level 28 MMOL/L (21-32) Anion Gap 9 mmol/L (5-15) Blood Urea Nitrogen 14 mg/dL (7-18) Creatinine 0.6 MG/DL (0.55-1.30) Estimat Glomerular Filtration Rate > 60 mL/min (>60) Glucose Level 111 MG/DL (74-106) Calcium Level 9.7 MG/DL (8.5-10.1) Height (Feet): 5 Height (Inches): 7.00 Weight (Pounds): 114 Objective Physical Exam General Appearance: lethargic Lines, tubes and drains: peripheral, central line HEENT: normocephalic Neck: non-tender, normal alignment Respiratory/Chest: lungs clear Cardiovascular/Chest: normal peripheral pulses, normal rate, regular rhythm Abdomen: normal bowel sounds, non tender ++ llq colostomy : ++Martínez Geiger MD Nov 28, 2019 08:46
--- NOTE | 2019-11-28 08:47 | General Progress Note ---
Assessment/Plan Assessment/Plan: (1) Sacral decubitus ulcer (2) Paraplegia (3) Neuropathic pain Patient to be continued on [place] and Neurontin D/w Dr. Celaya and he concurred. Subjective Date patient seen: Nov 28, 2019 Time patient seen: 08:00 - am Allergies: Coded Allergies: No Known Allergies (Unverified , 08/15/19) Subjective REVIEW OF SYSTEMS: Denies rash, fever, chills, sweating, dizziness, drowsiness, blurred vision, sore throat, or change in weight. No shortness of breath or chest pain. No nausea, vomiting, diarrhea, blood in stool or urine. HISTORY OF PRESENT ILLNESS: This is a 59-year-old male who has been seen on the Med/Surg floor of [facility]. Patient resting in bed no signs of pain or distress. Tolerated on the 3 [place] in the last 24hrs. No new complaints at this time. Objective Last 24 Hour Vital Signs Date Time Temp Pulse Resp B/P (MAP) Pulse Ox O2 Delivery O2 Flow Rate FiO2 11/28/19 08:00 99.1 73 18 86/44 (58) 97 11/28/19 04:00 99.3 77 18 91/48 (62) 97 11/28/19 00:00 98.2 66 18 93/48 (63) 97 11/27/19 21:00 Room Air 11/27/19 20:00 99.5 78 18 105/57 (73) 97 11/27/19 16:18 98.0 11/27/19 15:58 98.0 74 19 134/110 (118) 98 11/27/19 15:48 134/110 (118) 11/27/19 12:45 91/59 (70) 11/27/19 12:00 98.3 78 18 82/49 (60) 97 11/27/19 10:50 Room Air Intake and Output 11/27/19 11/28/19 19:00 07:00 Intake Total 1550 ml 970 ml Output Total 1500 ml 700 ml Balance 50 ml 270 ml Intake Oral 420 ml IV Total 550 ml 550 ml Other 1000 ml Output Urine Total 1500 ml 700 ml # Bowel Movements 1 Height (Feet): 5 Height (Inches): 7.00 Weight (Pounds): 114 Objective PHYSICAL EXAMINATION: GENERAL: Alert, awake, and oriented. LUNGS: Decreased breath sounds bilaterally. HEART: S1, S2 regular. ABDOMEN: Colostomy bag noted. EXTREMITIES: Upper and lower extremity range of motion is decreased due to the patient's condition. Contracture is noted. Sensory is reduced. Reflexes are not obtainable. No adenopathy. Danny Raymundo Nov 28, 2019 08:47
[2019-11-28] MEDS: Polymyxin B Sulfate 500,000 units in D5W 550ml IV SCH ×2 (08:53→20:25)
[2019-11-28] MEDS: Desmopressin Nasal 5ml NASAL SCH (08:54)
--- NOTE | 2019-11-28 10:14 | Cardiac Electrophysiology PN ---
Assessment/Plan Assessment/Plan 1. S/P Septic shock. on Midodrine, iv fluids and antibiotic 2. Bradycardia. Resolved. 3. Paraplegia. 4. Urinary tract infection, 5. Decubitus ulcers with sacral decubitus. 6. S/P Ileostomy/ 7. Polyuria, DI. On NS, Salt tablets Placement pending Subjective Subjective Alert in NAD. Refused lab works. RN at bedside.Placement pending Objective Last 24 Hour Vital Signs Date Time Temp Pulse Resp B/P (MAP) Pulse Ox O2 Delivery O2 Flow Rate FiO2 11/28/19 08:00 99.1 73 18 86/44 (58) 97 11/28/19 04:00 99.3 77 18 91/48 (62) 97 11/28/19 00:00 98.2 66 18 93/48 (63) 97 11/27/19 21:00 Room Air 11/27/19 20:00 99.5 78 18 105/57 (73) 97 11/27/19 16:18 98.0 11/27/19 15:58 98.0 74 19 134/110 (118) 98 11/27/19 15:48 134/110 (118) 11/27/19 12:45 91/59 (70) 11/27/19 12:00 98.3 78 18 82/49 (60) 97 11/27/19 10:50 Room Air Intake and Output 11/27/19 11/28/19 19:00 07:00 Intake Total 1550 ml 970 ml Output Total 1500 ml 700 ml Balance 50 ml 270 ml Intake Oral 420 ml IV Total 550 ml 550 ml Other 1000 ml Output Urine Total 1500 ml 700 ml # Bowel Movements 1 Objective HEAD AND NECK: No JVD. LUNGS: Coarse rhonchi. CARDIOVASCULAR: Regular S1 and S2 with no gallop. ABDOMEN: Soft.S/P Ileostomy EXTREMITIES: No pitting edema, however, has pressure ulcers. Carloz Estes MD Nov 28, 2019 10:14
--- NOTE | 2019-11-28 10:22 | Pulmonology Progress Note ---
Subjective ROS Limited/Unobtainable: Yes Interval Events: no fever or leucocytosis Constitutional: Denies: fever HEENT: Repors: no symptoms Respiratory: Reports: no symptoms Cardiovascular: Reports: no symptoms Gastrointestinal/Abdominal: Denies: nausea, vomiting, diarrhea Genitourinary: Reports: no symptoms Psychiatric: Denies: depression Skin: Denies: rash Musculoskeletal: Denies: pain Allergies: Coded Allergies: No Known Allergies (Unverified , 08/15/19) All Systems: reviewed and negative except above Objective Last 24 Hour Vital Signs Date Time Temp Pulse Resp B/P (MAP) Pulse Ox O2 Delivery O2 Flow Rate FiO2 11/28/19 08:00 99.1 73 18 86/44 (58) 97 11/28/19 04:00 99.3 77 18 91/48 (62) 97 11/28/19 00:00 98.2 66 18 93/48 (63) 97 11/27/19 21:00 Room Air 11/27/19 20:00 99.5 78 18 105/57 (73) 97 11/27/19 16:18 98.0 11/27/19 15:58 98.0 74 19 134/110 (118) 98 11/27/19 15:48 134/110 (118) 11/27/19 12:45 91/59 (70) 11/27/19 12:00 98.3 78 18 82/49 (60) 97 11/27/19 10:50 Room Air Intake and Output 11/27/19 11/28/19 19:00 07:00 Intake Total 1550 ml 970 ml Output Total 1500 ml 700 ml Balance 50 ml 270 ml Intake Oral 420 ml IV Total 550 ml 550 ml Other 1000 ml Output Urine Total 1500 ml 700 ml # Bowel Movements 1 General Appearance: no acute distress HEENT: normocephalic Respiratory: chest wall non-tender, lungs clear Cardiovascular: normal peripheral pulses, regular rhythm Abdomen: normal bowel sounds Extremities: no cyanosis Current Medications Medications (Trade) Dose Ordered Sig/Mya Route PRN Reason Start Time Stop Time Status Last Admin Dose Admin Acetaminophen (Tylenol) 650 mg Q4H PRN ORAL Mild Pain (Pain Scale 1-3) 11/05/19 14:00 11/30/19 13:59 11/24/19 14:27 Acetaminophen (Tylenol) 650 mg Q4H PRN ORAL Temp >100.5 8/23/20 16:00 12/05/19 15:59 11/25/19 04:15 Acetaminophen/ Hydrocodone Bitart ([place] 5/325) 1 tab Q6H PRN ORAL Severe Pain (Pain Scale 7-10) 11/24/19 10:00 12/01/19 09:59 11/28/19 06:08 Apixaban (Eliquis) 2.5 mg BID ORAL 11/24/19 09:00 02/22/20 08:59 11/28/19 08:44 Bisacodyl (Dulcolax) 10 mg DAILYPRN PRN RECTAL Constipation 11/24/19 07:45 02/22/20 07:44 Chlorhexidine Gluconate (Simran-Hex 2%) 1 applic DAILY@2000 TOPIC 11/13/19 20:00 02/11/20 19:59 11/26/19 20:06 Desmopressin Acetate (Ddavp) 1 spray DAILY NASAL 11/14/19 09:00 02/07/20 17:59 11/28/19 08:54 Dextrose (Dextrose 50%) 25 ml Q30M PRN IV Hypoglycemia 11/05/19 13:30 01/21/20 17:29 Dextrose (Dextrose 50%) 50 ml Q30M PRN IV Hypoglycemia 11/05/19 13:30 01/21/20 17:29 Famotidine (Pepcid) 20 mg DAILY ORAL 11/06/19 09:00 01/28/20 09:29 11/28/19 08:43 Ferrous Sulfate (Feosol) 325 mg DAILY ORAL 11/06/19 09:00 01/22/20 08:59 11/28/19 08:43 Fludrocortisone Acetate (Florinef) 0.1 mg DAILY ORAL 11/15/19 09:00 12/15/19 08:59 11/28/19 08:43 Gabapentin (Neurontin) 400 mg Q8HR ORAL 11/05/19 14:00 12/03/19 21:59 11/28/19 06:08 Linezolid (Zyvox) 600 mg Q12HR ORAL 11/24/19 11:00 11/29/19 10:59 11/28/19 08:44 Magnesium Hydroxide (Mom) 30 ml HSPRN PRN ORAL Constipation 11/13/19 11:15 12/13/19 11:14 Midodrine (Pro-Amatine) 10 mg EVERY 8 HOURS ORAL 11/05/19 14:00 01/21/20 17:59 11/28/19 06:08 Naloxone HCl (Narcan) 0.2 mg Q2M PRN IVP RESPRITORY DEPRESSION RR<8 11/24/19 10:15 02/22/20 10:14 Polymyxin B Sulfate 581839 units/Dextrose 550 ml @ 550 mls/hr EVERY 12 HOURS IV 11/24/19 21:00 12/01/19 20:59 11/28/19 08:53 Senna/Docusate Sodium (Haley-Colace) 1 tab TWICE A DAY ORAL 11/24/19 09:00 12/24/19 08:59 11/28/19 08:44 Sodium Chloride (NaCl) 1 gm THREE TIMES A DAY ORAL 11/09/19 13:00 12/09/19 12:59 11/28/19 08:44 Zinc Sulfate (Zinc Sulfate) 220 mg DAILY ORAL 11/06/19 09:00 01/22/20 08:59 11/28/19 08:44 Assessment/Plan Assessment/Plan IMPRESSION: 1. Septic shock. resolved 2. Complicated UTI with history of previous ESBL infection. 3. Paraplegia. 4. Sacral decubitus. 5. [facility]P resident. DISCUSSION: DVT and GI prophylaxes. Continue Oxygen prn, doing well on room air at this time. DC planning Haily Monzon Omar Syed MD Nov 28, 2019 10:22
--- NOTE | 2019-11-28 10:59 | General Progress Note ---
Assessment/Plan Problem List: (1) Septic shock ICD Codes: A41.9 - Sepsis, unspecified organism; R65.21 - Severe sepsis with septic shock SNOMED: 11327767 (2) Anemia ICD Codes: D64.9 - Anemia, unspecified SNOMED: 401470107 (3) Encephalopathy ICD Codes: G93.40 - Encephalopathy, unspecified SNOMED: 18437082 (4) Drug (multiple) resistant infection SNOMED: 72441129, 14516530763036 (5) Urinary tract infection in male ICD Codes: N39.0 - Urinary tract infection, site not specified SNOMED: 82129864, 881137232 (6) Hypokalemia ICD Codes: E87.6 - Hypokalemia SNOMED: 21726686 (7) Femur fracture ICD Codes: S72.90XA - Unspecified fracture of unspecified femur, initial encounter for closed fracture SNOMED: 77640711 (8) Hyponatremia ICD Codes: E87.1 - Hypo-osmolality and hyponatremia SNOMED: 54477143 (9) Sepsis ICD Codes: A41.9 - Sepsis, unspecified organism SNOMED: 40383411 (10) UTI (urinary tract infection) ICD Codes: N39.0 - Urinary tract infection, site not specified SNOMED: 00380727 (11) Hypotension ICD Codes: I95.9 - Hypotension, unspecified SNOMED: 51433001 (12) Decubital ulcer ICD Codes: L89.90 - Pressure ulcer of unspecified site, unspecified stage SNOMED: 199215868 (13) SEAN (acute kidney injury) ICD Codes: N17.9 - Acute kidney failure, unspecified SNOMED: 2874447, 01775180 Assessment/Plan: 59 year old man who presents from [facility] with weakness, encephalopathy, concern for septic shock, possible from UTI. #Acute Left Popliteal DVT -Pt has IVC filter -D/w Heme, cont eliquis 2.5 BID -monitor for signs of bleeding -d/c HSQ ppx given pt on eliquis #Fever #Septic shock- resolved #Proteus UTI #Actinobacter UTI, GPC UTI #Acute metabolic encephalopathy - resolved #Paraplegia #Sacral pressure ulcer, present on admit - Periods of hypotension and fever through hospitalization, VSS now - Covid 19 - negative - S/p vancomycin, cefepime, and flagyl - UCx on 11/19 positive for actinobacter and GPC - Spoke with surgery, reviewed CT findings, sacral pressure ulcer does not appear to be infected, ct findings consistent w/sacral ulcer - Cont Local wound care and offloading - Fever 101.7 on 11/20, repeat BCx ordered however pt refused labs - 10/20 CXR w/no acute process - fever 100.5 on 11/24, repeat BCx and labs ordered, d/w RN and ID, OK to draw from PICC line --> CBC with no leukocytosis - 11/24 BCx NGTD, cont to follow for final cx - Appreciate ID consult --> polymyxin and zosyn #Sacral Decubitus Ulcer -CT abd/pel on 11/22/19 w/ subcutaneous gas -d/w with surgery, reviewed CT findings, sacral pressure ulcer does not appear to be infected, ct findings consistent w/sacral ulcer -wound care daily -appreciate wound care recs -abx per ID as above #Stool Impaction - improved -seen on CT abd on 11/22/2019 -s/p disimpaction by general sx with symptomatic improvement -cont Docusate-senna daily -PRN dulcolax #Fungal UTI - resolved, s/p treatment - Patient is high risk for fungemia - Diflucan 11/16 - 11/23 -Appreciate ID Consult #Sinus Bradycardia - resolved -continue telemetry -EP following 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 -Evaluated by endocrine for adrenal insufficiency -AM cortisol normal however patient continues to have labile BP and hyponatremia - Appreciate Nephrology consult - Appreciate Endocrine consult - Will continue Florinef, Salt Tab, and DDAVP - Continue Midodrine given labile BP - CT Brain without masses noted, will defer MRI - Refusing labs periodically #Hyponatremia - resolved #Hypokalemia - resolved -Intermittently refusing labs -Replete when necessary -On DDAVP intranasal #Anemia, acute on chronic - stable -s/p 2 units RBC 10/28 -Hematology following, no signs of overt bleeding - Continue Iron tab - Keep Hb >7 #Chronic Lower extremity pain Likely 2' contractures and prior accident - Gabapentin, [place], Baclofen - pain management consulted, recs appreciated FEN: Eliquis 2.5 BID Jevity TF #Dispo - Awaiting SNF bed placement. Appreciate referrals placed by CM. I spent 36 minutes on this patient's care today, and 20 mins was dedicated to counseling and care coordination. New to servce and disccused plan of care with all consulants. Also preformed chart review foe 37 min. Time of note doesn't reflect time of encounter. Subjective Date patient seen: Nov 28, 2019 Time patient seen: 09:20 ROS Limited/Unobtainable: Yes Constitutional: Denies: chills, diaphoresis, fever, malaise HEENT: Denies: blurred vision, tearing, double vision Cardiovascular: Denies: irregular heart rate Respiratory: Denies: orthopnea, shortness of breath, SOB with excertion, SOB at rest Gastrointestinal/Abdominal: Denies: abdominal pain, black stools, tarry stools Genitourinary: Denies: frequency, flank pain, hematuria Neurologic/Psychiatric: Denies: emotional problems, headache, numbness, paresthesia Endocrine: Denies: intolerance to cold, increased hunger Hematologic/Lymphatic: Denies: easy bruising Allergies: Coded Allergies: No Known Allergies (Unverified , 08/15/19) Subjective No complaints, doesnt want anymore labs or blood draws Objective Last 24 Hour Vital Signs Date Time Temp Pulse Resp B/P (MAP) Pulse Ox O2 Delivery O2 Flow Rate FiO2 11/28/19 08:00 99.1 73 18 86/44 (58) 97 11/28/19 04:00 99.3 77 18 91/48 (62) 97 11/28/19 00:00 98.2 66 18 93/48 (63) 97 11/27/19 21:00 Room Air 11/27/19 20:00 99.5 78 18 105/57 (73) 97 11/27/19 16:18 98.0 11/27/19 15:58 98.0 74 19 134/110 (118) 98 11/27/19 15:48 134/110 (118) 11/27/19 12:45 91/59 (70) 11/27/19 12:00 98.3 78 18 82/49 (60) 97 Intake and Output 11/27/19 11/28/19 19:00 07:00 Intake Total 1550 ml 970 ml Output Total 1500 ml 700 ml Balance 50 ml 270 ml Intake Oral 420 ml IV Total 550 ml 550 ml Other 1000 ml Output Urine Total 1500 ml 700 ml # Bowel Movements 1 Height (Feet): 5 Height (Inches): 7.00 Weight (Pounds): 114 General Appearance: no apparent distress, alert, cachetic EENT: normal ENT inspection, TMs normal Neck: normal alignment, supple, normal inspection Cardiovascular: normal peripheral pulses, normal rate, regular rhythm, no JVD Respiratory/Chest: lungs clear, normal breath sounds, no respiratory distress Abdomen: normal bowel sounds, non tender, soft, no organomegaly Extremities: normal range of motion, non-tender, other - paraplegia Edema: no edema noted Arm (L), no edema noted Arm (R), no edema noted Leg (L), no edema noted Leg (R), no edema noted Pedal (L), no edema noted Pedal (R), no edema noted Generalized Neurologic: alert, oriented x 3, responsive, normal mood/affect Art Hensley M.D. Nov 28, 2019 10:59
--- NOTE | 2019-11-28 11:52 | Infectious Diseases Prog Note ---
Assessment/Plan Assessment/Plan ASSESSMENT AND PLAN: 1. hx sepsis/shock, hx proteus uti, hx esbl e.coli uti, possible aspiration pna/ hcap vs cap, sacral wound - ? infected, mrsa and vre colonization fevers, leukocytosis - new acinetobacter uti and vre uti, + urine culture CT abdomen and pelvis without acute abscess, blood cultures negative ? pna on chest x-ray vs atx, ? aspiration pna/hcap - polymyxin and zyvox x 3 days - monitor labs, chest x-ray and temperatures - clinically improved, fevers improved 2. ICU care. 3. Sacral wound -wound mostly clean, management per surgery 4. Ostomy malfunction - per surgery 5. Hypertension. 6. Paraplegia. 7. Anemia. 8. History of decubitus ulcer, rule out infection. Infectious diseases is following. The patient on antibiotics. 9. Hypertension treatment per primary care team. 10. Continue treatment per primary consultants. 11. No known drug allergies. 12. Social history is negative. 13. Family history is noncontributory. 14. MAR was noted. 15. Case discussed with RN. Subjective Constitutional: Reports: fatigue; Denies: fever HEENT: Denies: congestion Respiratory: Denies: shortness of breath Cardiovascular: Denies: chest pain Gastrointestinal/Abdominal: Denies: nausea, vomiting Genitourinary: Reports: other - + donohue Neurologic: Denies: headache Psychiatric: Denies: depression Skin: Denies: rash Hematologic: Denies: bleeding Musculoskeletal: Denies: pain Allergies: Coded Allergies: No Known Allergies (Unverified , 08/15/19) Objective Last 24 Hour Vital Signs Date Time Temp Pulse Resp B/P (MAP) Pulse Ox O2 Delivery O2 Flow Rate FiO2 11/28/19 09:00 Room Air 11/28/19 08:00 99.1 73 18 86/44 (58) 97 11/28/19 04:00 99.3 77 18 91/48 (62) 97 11/28/19 00:00 98.2 66 18 93/48 (63) 97 11/27/19 21:00 Room Air 11/27/19 20:00 99.5 78 18 105/57 (73) 97 11/27/19 16:18 98.0 11/27/19 15:58 98.0 74 19 134/110 (118) 98 11/27/19 15:48 134/110 (118) 11/27/19 12:45 91/59 (70) 11/27/19 12:00 98.3 78 18 82/49 (60) 97 Height (Feet): 5 Height (Inches): 7.00 Weight (Pounds): 114 General Appearance: no acute distress HEENT: normocephalic, atraumatic, anicteric, mucous membranes moist Respiratory/Chest: lungs clear, normal breath sounds, no respiratory distress, no accessory muscle use Cardiovascular: normal rate, regular rhythm, no gallop/murmur, no JVD Abdomen: normal bowel sounds, soft, non tender, no organomegaly, non distended Genitourinary: other - + donohue - urine clearer Extremities: no cyanosis Skin: no rash Neurologic/Psychiatric: alert, responsive Lymphatic: no neck adenopathy Musculoskeletal: no effusion Chest x-ray - 10/25/19 - Procedure: XRAY Chest 1v Indication: Shortness of breath Technique: One view of the chest Comparison: 10/23/2019 Findings: There are bilateral basilar infiltrates, which appear new or increased since prior study. There is some atelectasis at the left lung base as well. Right jugular central venous catheter remains. The heart size is normal. Impression: New/increased bilateral basilar infiltrates, since prior study 2019 Chest x-ray - 10/27/19 - Procedure: XRAY Chest 1v Indication: Shortness of breath Technique: One view of the chest Comparison: 10/25/2019 Findings: There is atelectasis possibly some focal consolidation at the right lung base. Atelectatic changes previously demonstrated at the left lung base have largely cleared. Right jugular central venous catheter remains. The heart size is normal. Impression: Improving left basilar atelectasis. Otherwise little change director 2 days findings as noted Chest x-ray - 10/29/19 - FINDINGS: Lungs: Persistent subsegmental atelectasis in bilateral lower lungs, not significant changed compared to the prior exam. No new consolidation is seen. Pleural space: Unremarkable. The costophrenic angles are sharp. No visible pneumothorax. Heart: Unremarkable. No cardiomegaly. Mediastinum: Unremarkable. Bones/joints: Unremarkable. Vasculature: Mild atherosclerotic calcifications are noted within the aortic arch. Tubes, lines and devices: Stable positioning of a right IJ central venous catheter with the tip in the SVC. Telemetry leads overlie the thorax. IMPRESSION: Persistent subsegmental atelectasis in bilateral lower lungs, not significantly changed compared to the prior exam. Chest x-rasy - 11/03/19 - Procedure: XRAY Chest 1v Indication: Cough Technique: One view of the chest Comparison: 10/29/2019 Findings: There are increased atelectatic changes at the lung bases. Interim removal of previously demonstrated central venous catheter. The pleural spaces are clear. The heart size is normal. Impression: Increasing bilateral basilar atelectasis Interim central venous catheter removal. Chest x-ray - 11/07/19 - Procedure: XRAY Chest 1v Indication: Shortness of breath Technique: One view of the chest Comparison: 11/03/2019 Findings: Bilateral basilar atelectatic changes appear similar to the previous exam. There may be some patchy left perihilar and bilateral peripheral consolidation. The heart size is normal. Impression: New or increased faint patchy peripheral and left perihilar consolidative opacities, possibly reflecting multifocal pneumonia, since prior study 03/04/2019 Persistent bilateral basilar atelectatic changes Chest x-ray - 11/09/19 - Procedure: XRAY Chest 1v Indication: Cough Technique: One view of the chest Comparison: 11/07/2019 Findings: There is improved aeration of the lung bases, although some atelectasis persists bilaterally. No new infiltrates. The pleural spaces are clear. The heart size is normal. Impression: Improved aeration with decreased basilar atelectasis Chest x-ray - 11/14/19 - Procedure: XRAY Chest 1v Indication: Cough Technique: One view of the chest Comparison: 11/09/2019 Findings: Bilateral basilar atelectasis has increased. No new infiltrates. The pleural spaces remain clear. The heart size is normal. Impression: Increased bilateral basilar atelectasis, since prior study 11/09/2019 Chest x-ray - 11/15/19 - Procedure: XRAY Chest 1v Indication: Cough Technique: One view of the chest Comparison: 11/13/2019 Findings: Again demonstrated is bilateral basilar atelectasis versus scarring. The lungs and pleural spaces are otherwise clear. The heart size is normal. Interim placement right arm PICC. Impression: No acute process Chest x-ray - 11/21/19 - Procedure: XRAY Chest 1v Indication: Shortness of breath Technique: One view of the chest Comparison: 11/15/2019 Findings: Previously demonstrated basilar atelectatic changes have cleared. Lungs and pleural spaces are currently clear. The heart size is normal. There is a right arm PICC again demonstrated Impression: No acute process CT abdomen and pelvis: Impression: Extensive decubitus changes, as described, with evidence of skin thickening, surface ulceration, deep ulceration, and likely prior skin grafting. There is also evidence of extensive bone loss. This may be due to erosive changes, postsurgical changes, or likely combination of both. No findings to suggest abscess Left lower quadrant diverting sigmoid colostomy. Considerable distal stool and evidence of rectal fecal impaction and incontinence, despite this. Rectal wall thickening could indicate stercoral proctitis Splenomegaly Inferior vena cava filter Donohue catheter and empty bladder. Some calcifications are seen surrounding the Donohue balloon Posterior pulmonary dependent atelectatic changes and possible consolidation Other findings as noted, including probable hepatic and renal cysts Chest x-ray - 11/25/19 - FINDINGS: Lungs: There are mild bilateral lower lobe infiltrates consistent with nonspecific pneumonia. Pleural space: Unremarkable. No pneumothorax. Heart: Unremarkable. No cardiomegaly. Mediastinum: Unremarkable. Bones/joints: Unremarkable. Tubes, lines and devices: There is a right-sided PICC line in good position. IMPRESSION: There are mild bilateral lower lobe infiltrates consistent with nonspecific pneumonia. Chest x-ray - 11/27/19 - Procedure: XRAY Chest 1v Procedure: XRAY Chest 1v Reason for study: Shortness of breath. Comparison films: 11/25/2019. FINDINGS: Right PICC line remains in place. Vascularity is normal. There are linear atelectasis in both lung bases. Cardiac and mediastinal silhouette are within normal limits. CP angles are sharp. The bony thorax appear unremarkable. IMPRESSION: Bibasilar linear atelectasis. Microbiology Date/Time Source Procedure Growth Status 11/25/19 09:45 Blood Blood Culture - Preliminary NO GROWTH AFTER 48 HOURS Resulted 11/20/19 23:30 Indwelling Cath Urine Culture - Final Acinetobacter Baumanii - Mdr Enterococcus Faecium - Vre Complete 11/03/19 08:00 Catheter Site Catheter Tip Culture - Final Staphylococcus Sp Coag Neg Complete 11/02/19 13:30 Nasopharynx SARS-CoV-2 RdRp Gene Assay - Final Complete wbc - 8.8 hgb - 8.0 cr - .6 Current Medications Medications (Trade) Dose Ordered Sig/Mya Route PRN Reason Start Time Stop Time Status Last Admin Dose Admin Acetaminophen (Tylenol) 650 mg Q4H PRN ORAL Mild Pain (Pain Scale 1-3) 11/05/19 14:00 11/30/19 13:59 11/24/19 14:27 Acetaminophen (Tylenol) 650 mg Q4H PRN ORAL Temp >100.5 11/05/19 16:00 12/05/19 15:59 11/25/19 04:15 Acetaminophen/ Hydrocodone Bitart ([place] 5/325) 1 tab Q6H PRN ORAL Severe Pain (Pain Scale 7-10) 11/24/19 10:00 12/01/19 09:59 11/28/19 06:08 Apixaban (Eliquis) 2.5 mg BID ORAL 11/24/19 09:00 02/22/20 08:59 11/28/19 08:44 Bisacodyl (Dulcolax) 10 mg DAILYPRN PRN RECTAL Constipation 11/24/19 07:45 02/22/20 07:44 Chlorhexidine Gluconate (Simran-Hex 2%) 1 applic DAILY@2000 TOPIC 11/13/19 20:00 02/11/20 19:59 11/26/19 20:06 Desmopressin Acetate (Ddavp) 1 spray DAILY NASAL 11/14/19 09:00 02/07/20 17:59 11/28/19 08:54 Dextrose (Dextrose 50%) 25 ml Q30M PRN IV Hypoglycemia 11/05/19 13:30 01/21/20 17:29 Dextrose (Dextrose 50%) 50 ml Q30M PRN IV Hypoglycemia 11/05/19 13:30 01/21/20 17:29 Famotidine (Pepcid) 20 mg DAILY ORAL 11/06/19 09:00 01/28/20 09:29 11/28/19 08:43 Ferrous Sulfate (Feosol) 325 mg DAILY ORAL 11/06/19 09:00 01/22/20 08:59 11/28/19 08:43 Fludrocortisone Acetate (Florinef) 0.1 mg DAILY ORAL 11/15/19 09:00 12/15/19 08:59 11/28/19 08:43 Gabapentin (Neurontin) 400 mg Q8HR ORAL 11/05/19 14:00 12/03/19 21:59 11/28/19 06:08 Linezolid (Zyvox) 600 mg Q12HR ORAL 11/24/19 11:00 11/29/19 10:59 11/28/19 08:44 Magnesium Hydroxide (Mom) 30 ml HSPRN PRN ORAL Constipation 11/13/19 11:15 12/13/19 11:14 Midodrine (Pro-Amatine) 10 mg EVERY 8 HOURS ORAL 11/05/19 14:00 01/21/20 17:59 11/28/19 06:08 Naloxone HCl (Narcan) 0.2 mg Q2M PRN IVP RESPRITORY DEPRESSION RR<8 11/24/19 10:15 02/22/20 10:14 Polymyxin B Sulfate 283251 units/Dextrose 550 ml @ 550 mls/hr EVERY 12 HOURS IV 11/24/19 21:00 12/01/19 20:59 11/28/19 08:53 Senna/Docusate Sodium (Haley-Colace) 1 tab TWICE A DAY ORAL 11/24/19 09:00 12/24/19 08:59 11/28/19 08:44 Sodium Chloride (NaCl) 1 gm THREE TIMES A DAY ORAL 11/09/19 13:00 12/09/19 12:59 11/28/19 08:44 Zinc Sulfate (Zinc Sulfate) 220 mg DAILY ORAL 11/06/19 09:00 01/22/20 08:59 11/28/19 08:44 Sharif Painting MD Nov 28, 2019 11:52
[2019-11-28 12:00] VITALS: BP 92/54
[2019-11-28 16:00] VITALS: BP 90/49
--- NOTE | 2019-11-28 18:33 | Surgery Progress Note ---
Surgery Progress Note Subjective Symptoms: improved, tolerating diet, passing flatus, BM Additional Comments No acute events doing well comfortable Objective Last 24 Hour Vital Signs Date Time Temp Pulse Resp B/P (MAP) Pulse Ox O2 Delivery O2 Flow Rate FiO2 11/28/19 16:00 99.9 67 19 90/49 (63) 95 11/28/19 12:00 97.0 63 18 92/54 (67) 98 11/28/19 09:00 Room Air 11/28/19 08:00 99.1 73 18 86/44 (58) 97 11/28/19 04:00 99.3 77 18 91/48 (62) 97 11/28/19 00:00 98.2 66 18 93/48 (63) 97 11/27/19 21:00 Room Air 11/27/19 20:00 99.5 78 18 105/57 (73) 97 I&O Intake and Output 11/27/19 11/28/19 19:00 07:00 Intake Total 1550 ml 970 ml Output Total 1500 ml 700 ml Balance 50 ml 270 ml Intake Oral 420 ml IV Total 550 ml 550 ml Other 1000 ml Output Urine Total 1500 ml 700 ml # Bowel Movements 1 Dressing: saturated Cardiovascular: RSR Respiratory: decreased breath sounds Abdomen: soft, non-tender, present bowel sounds Extremities: no cyanosis Plan Problems: (1) Abdominal distension Assessment & Plan: abd distention soft non tender ostomy viable and reduced KUB ordered pending results improved comfortable no complaints okay for diet s tolerated d/c planning much improved There is an inferior vena cava filter in place. Bowel gas pattern is unremarkable. Considerable stool is seen in the transverse and distal colon. There is extensive pelvic deformity, with loss of the left femoral head, chronic dislocation of the left femur, and extensive pelvic deformity, particularly on the left. Adi project over the upper pelvis Impression: Possible constipation. pending placement Nonobstructed bowel gas pattern. Moderate fecal retention of the ascending colon and sigmoid colon. The degree of stool burden has increased from October 25, 2019. IVC filter, incidentally noted. Partial subluxation of the right hip. Osteotomy of the proximal left femur with deformity of the bilateral pubic rami and left acetabulum, unchanged. 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 [place] Shaped, Full Thickness Sacral Pressure Injury which extends into L ischium. (L)15.4cm x (W)18cm x (D)2.4cm, Undermining clockwise 10-2 by 7.7cm @ 11o'clock. Base of wound is moist,pink with scattered slough at base of wound. Bone is palpable at the Base. No odor or exudate noted. Scattered partial thickness wounds and Serous filled blisters noted to R trochanteric /R Hip areas. Historical scar noted to L groin, L Hip L Buttocks. Bony protrusion noted at L Hip. Full thickness Pressure Injury R Ischium(L)5.4cm x(W)6.9cm x (D)1.8cm, Undermining clockwise 1-4 by 2.7cm @2o'clock, Tunneling@7o'clock 2.9cm. Base of wound is moist pink with scattered slough. Scattered slough noted along borders. NO odor or exudate noted. Stable dry eschar noted to medial R knee 0.7cm x (W)0.4cm. Periwound is erythematous and indurated. No elevation in skin temp noted. L heel has shaved appearance secondary to Hx of Pressure Injuries. Base of heel is pale pink. Bone is palpable. Small area of slough noted within compromised area(L)0.6cm x (W)0.8cm. L Heel Also has shaved appearance with hypertrophic scarring. Base of compromised area is pale pink, Bone is palpable, with scattered loose, dry and scaly skin. Patient's wound remains very large extensive and requires significant amount of care. Continued care of the wounds have been provided though patient is having continence through the anus at this time again despite diversion. Wounds remain saturated times and great nursing care is being provided unfortunately inevitable decline is still significantly potential given his overall condition. Tx.Plan: Cleanse Sacral Wound and R Ischial wounds with Dakin's 0.125% gian. Loosely pack wounds with Hydrogel impregnated Kerlix. Apply Moisture Barrier Paste periwound. Cover with ABD Pads secure with Tegaderm drsg.Daily and prn. Apply Triad Paste to R Hip/R trochanteric areas.Cover with Optifoam drsg. Change every 7 days and prn. Apply Betadine to Medial R Knee. Cover with Optifoam drsg. Change every 7 days and prn. Apply Betadine to R and L Heels. Cover each Heel with Optifoam drsgs. Change every 7 days and prn. Cover Bony Prominences as needed with Optifoam drsgs. Reposition at least every [address] tolerated[address] Pillow between knees. Off-load heels with pillow. APM/SUMI Mattress overlay DAILY ESTIMATED NEEDS: Needs based on Advanced wounds, wt loss/ 40.18kg 35-40 kcals/kg 1325-1867 total kcals 1.5-2.0 g protein/kg 60-80 g total protein 25-35ml/kcal mL/kg 5527-3401 total fluid mLs NUTRITION DIAGNOSIS: Increased kcal/prot/micronutrients needs R/T wound healing and underweight status as evidenced by pt admitted w/ multiple advanced wounds, refer to WC eval, pt now w/ further 3% unfavorable wt loss, currently BMI underweight per guidelines, @62% of [place] Body Weight. 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 There is distention of the rectum with feces, rectal diameter 70 mm. There is some thickening of the rectal wall. The appendix is not definitely visualized, but no findings to suggest acute appendicitis are evident. There is considerable stool throughout the colon. There appears to be rectal incontinence of stool despite the diverting colostomy. Cornelius Salgado Nov 28, 2019 18:33
[2019-11-28 20:00] VITALS: BP 93/52
[2019-11-28] MEDS: Dyna-Hex 2% Top Sol 2oz TOPIC SCH (20:24)
--- NOTE | 2019-11-28 22:13 | Nephrology Progress Note ---
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 - improved with desmporessin #Shock #UTI # infected sacral pressure ulcer #Acute metabolic encephalopathy #Paraplegia #Sacral pressure ulcer #Hypokalemia #Anemia - continue florinef 0.1mg daily -Continue desmopressin nasal - continue salt tabs 1g TID - continue midodrine 10 TID - endocrine eval noted - r/o adrenal insuffiency - antibiotics per ID - monitor lytes - avoid nephrotoxins - daily weights - strict I&Os time spent 40 min- greater than 50% on care coordination and counseling Subjective Subjective UOP 2550 labs reviewed on florinef 0.1mg daily Bp stable on nasal desmopressin on salt tabs Objective Objective Last 24 Hour Vital Signs Date Time Temp Pulse Resp B/P (MAP) Pulse Ox O2 Delivery O2 Flow Rate FiO2 11/28/19 20:00 99.8 68 18 93/52 (66) 96 11/28/19 16:00 99.9 67 19 90/49 (63) 95 11/28/19 12:00 97.0 63 18 92/54 (67) 98 11/28/19 09:00 Room Air 11/28/19 08:00 99.1 73 18 86/44 (58) 97 11/28/19 04:00 99.3 77 18 91/48 (62) 97 11/28/19 00:00 98.2 66 18 93/48 (63) 97 Intake and Output 11/27/19 11/28/19 19:00 07:00 Intake Total 1550 ml 970 ml Output Total 1500 ml 700 ml Balance 50 ml 270 ml Intake Oral 420 ml IV Total 550 ml 550 ml Other 1000 ml Output Urine Total 1500 ml 700 ml # Bowel Movements 1 Height (Feet): 5 Height (Inches): 7.00 Weight (Pounds): 114 Sienna Georges M.D. Nov 28, 2019 22:13
[2019-11-29] VITALS: BP 105/64
[2019-11-29 04:00] VITALS: BP 98/53
[2019-11-29] MEDS: HYDROcodone/Acetamin 5/325 tab ORAL PRN ×2 (05:36→18:03)
[2019-11-29] MEDS: Midodrine 10mg tab ORAL SCH ×3 (05:36→21:29)
--- NOTE | 2019-11-29 07:35 | Hematology/Onc Progress Note ---
Assessment/Plan Assessment/Plan # Acute left upstream popliteal vein deep venous thrombosis IVC filter in place --> given acute nature, will continue eliquis --> HOWEVER, if drop in h/h consider to hold eliquis as has ivc in place --> IVC Filter placed earlier # Anemia rule out gi bleed, as well as iron deficiency --> hgb 8.2-->7.2-->7.1->6.9-->8.6-->8.3-->9.3-->8.3-->9.3--.9.2->8.7 --> anemia panel ordered--> cw acd --> occult blood pending-->neg --> gi eval prn --> transfuse as needed --> transfuse 2 units 10/27 --> po iron to continue # Coagulopathy with elev ptt/inr --> vitk and ffp as needed --> no bleeding noted at this time # Thrombocytosis likely reactive process --> plt 398-->608-->605 --> abx as needed # Sepsis due to uti, with Hypotension likely due to septic shock. Was diuresing heavily at 300 mL an hour. --> Continue on midodrine and dopamine. --> ABX vancomycin and meropenem and amikacin-->christel/vanc/difluc-->vanc/linezolid --> before requires pressors --> as per cards # Bradycardia. --> per cards # Paraplegia. # LLQ colostomy # Decubitus ulcers with sacral decubitus. # Dvt eliquis Appreciate consultation and chandrakant AGRAWAL Subjective Constitutional: Denies: no symptoms, chills, fever, malaise, weakness, other HEENT: Denies: no symptoms, eye pain, blurred vision, tearing, double vision, ear pain, ear discharge, nose pain, nose congestion, throat pain, throat swelling, mouth pain, mouth swelling, other Cardiovascular: Denies: no symptoms, chest pain, edema, irregular heart rate, lightheadedness, palpitations, syncope, other Gastrointestinal/Abdominal: Denies: no symptoms, abdomen distended, abdominal pain, black stools, tarry stools, blood in stool, constipated, diarrhea, difficulty swallowing, nausea, poor appetite, poor fluid intake, rectal bleeding, vomiting, other Genitourinary: Denies: no symptoms, burning, discharge, frequency, flank pain, hematuria, incontinence, pain, urgency, other Neurologic/Psychiatric: Denies: no symptoms, anxiety, depressed, emotional problems, headache, numbness, paresthesia, pre-existing deficit, seizure, tingling, tremors, weakness, other Endocrine: Denies: no symptoms, excessive sweating, flushing, intolerance to cold, intolerance to heat, increased hunger, increased thirst, increased urine, unexplained weight gain, unexplained weight loss, other Hematologic/Lymphatic: Denies: no symptoms, anemia, easy bleeding, easy bruising, adenopathy, other Allergies: Coded Allergies: No Known Allergies (Unverified , 08/15/19) Subjective 10/27 labs again refused this am, yesterday was low, chandrakant agrawal in icu 10/28 remains in icu, for 2units prbc this am, chandrakant agrawal, no other events 10/29 s/p prbc, tolerated it well, no bleeding, on 1mcg levo, in icu 10/30 on abx, on levo and overnight no other events, chandrakant agrawalrn surgery icu\ 10/31 wounds improved, labs noted, no bleeding, hgb lower, refusing care/wound care 11/01 labs noted, no bleeding, no hematochezia, no hemoptysis, cbc ordered 11/02 meds reviewed, labs noted, no bleeding, chandrakant agrawal, no major changes, hgb 8.3 11/04 labs have been noted, no bleeding, meds reviewed, no hemolysis 11/05 functional colostomy llq, no bleeding, cbc is pending for am 11/06 labs have been refused, hgb 8.3, no bleeding, wbc is higher in am 11/07 labs have initially been refused, no bleeding in am, wbc 13, on abx 11/08 labs reviewed, no bleeding, chandrakant agrawal, cbc is pending for am 11/09 is on vanc/difl/christel, no other changes, cbc and bmp are noted 11/11 has been asymptomatic, eating breakfast, hgb 9.3, on abx 11/12 labs are noted, no bleeding, chandrakant agrawal, no major changes, abx 11/13 is currently on christel and vanc, chandrakant agrawal, no major bleeding, on hep sq 11/14 labs are noted, does not want to be changed currently, cbc/bmp ordered 11/15 labs reviewed, c/o pain at picc line, no bleeding, meds noted, hgb 8.7 11/16 labs are noted, has been cleared, for dc planning to snf 11/[address], no bleeding, meds noted, continues to be on heparin sq 11/19 labs noted, no bleeding, comfortable, cbc is ntoed and bmp for am labs 11/[address], with dressing change as needed, meds noted, labs rev iewed 11/[address], is on vanc/christel seen by id, no major changes 11/22 labs reviewed, with colostomy, donohue catheter, ct of a/p noted 11/23 meds noted, no bleeding, have ordered for eliquis and dw Macie Razo in am 11/25 labs noted, no bleeding, on blood thinner is on vanc/linezolid, hgb 8 11/26 remains on eliquis, no bleeding, meds noted, eating breakfast this am 11/27 low bp, ns given, meds are reviewed, no major hemolysis, remains on po iron 11/28 on eliquis, ferrous suldate, no bleeding, comfortable Objective Objective Current Medications Medications (Trade) Dose Ordered Sig/Mya Route PRN Reason Start Time Stop Time Status Last Admin Dose Admin Acetaminophen (Tylenol) 650 mg Q4H PRN ORAL Mild Pain (Pain Scale 1-3) 11/05/19 14:00 11/30/19 13:59 11/24/19 14:27 Acetaminophen (Tylenol) 650 mg Q4H PRN ORAL Temp >100.5 11/05/19 16:00 12/05/19 15:59 11/25/19 04:15 Acetaminophen/ Hydrocodone Bitart ([place] 5/325) 1 tab Q6H PRN ORAL Severe Pain (Pain Scale 7-10) 11/24/19 10:00 12/01/19 09:59 11/29/19 05:36 Apixaban (Eliquis) 2.5 mg BID ORAL 11/24/19 09:00 02/22/20 08:59 11/28/19 17:33 Bisacodyl (Dulcolax) 10 mg DAILYPRN PRN RECTAL Constipation 11/24/19 07:45 02/22/20 07:44 Chlorhexidine Gluconate (Simran-Hex 2%) 1 applic DAILY@2000 TOPIC 11/13/19 20:00 02/11/20 19:59 11/28/19 20:24 Desmopressin Acetate (Ddavp) 1 spray DAILY NASAL 11/14/19 09:00 02/07/20 17:59 11/28/19 08:54 Dextrose (Dextrose 50%) 25 ml Q30M PRN IV Hypoglycemia 11/05/19 13:30 01/21/20 17:29 Dextrose (Dextrose 50%) 50 ml Q30M PRN IV Hypoglycemia 11/05/19 13:30 01/21/20 17:29 Famotidine (Pepcid) 20 mg DAILY ORAL 11/06/19 09:00 01/28/20 09:29 11/28/19 08:43 Ferrous Sulfate (Feosol) 325 mg DAILY ORAL 11/06/19 09:00 01/22/20 08:59 11/28/19 08:43 Fludrocortisone Acetate (Florinef) 0.1 mg DAILY ORAL 11/15/19 09:00 12/15/19 08:59 11/28/19 08:43 Gabapentin (Neurontin) 400 mg Q8HR ORAL 11/05/19 14:00 12/03/19 21:59 11/29/19 05:36 Linezolid (Zyvox) 600 mg Q12HR ORAL 11/24/19 11:00 11/29/19 10:59 11/28/19 20:24 Magnesium Hydroxide (Mom) 30 ml HSPRN PRN ORAL Constipation 11/13/19 11:15 12/13/19 11:14 Midodrine (Pro-Amatine) 10 mg EVERY 8 HOURS ORAL 11/05/19 14:00 01/21/20 17:59 11/29/19 05:36 Naloxone HCl (Narcan) 0.2 mg Q2M PRN IVP RESPRITORY DEPRESSION RR<8 11/24/19 10:15 02/22/20 10:14 Polymyxin B Sulfate 997722 units/Dextrose 550 ml @ 550 mls/hr EVERY 12 HOURS IV 11/24/19 21:00 12/01/19 20:59 9/15/20 20:25 Senna/Docusate Sodium (Haley-Colace) 1 tab TWICE A DAY ORAL 11/24/19 09:00 12/24/19 08:59 11/28/19 17:33 Sodium Chloride (NaCl) 1 gm THREE TIMES A DAY ORAL 11/09/19 13:00 12/09/19 12:59 11/28/19 17:36 Zinc Sulfate (Zinc Sulfate) 220 mg DAILY ORAL 11/06/19 09:00 01/22/20 08:59 11/28/19 08:44 Last 24 Hour Vital Signs Date Time Temp Pulse Resp B/P (MAP) Pulse Ox O2 Delivery O2 Flow Rate FiO2 11/29/19 04:00 98.3 54 18 98/53 (68) 97 11/29/19 00:00 98.4 70 18 105/64 (78) 95 11/28/19 21:00 Room Air 11/28/19 20:00 99.8 68 18 93/52 (66) 96 11/28/19 16:00 99.9 67 19 90/49 (63) 95 11/28/19 12:00 97.0 63 18 92/54 (67) 98 11/28/19 09:00 Room Air 11/28/19 08:00 99.1 73 18 86/44 (58) 97 11/28/19 04:00 99.3 77 18 91/48 (62) 97 11/28/19 00:00 98.2 66 18 93/48 (63) 97 11/27/19 21:00 Room Air 11/27/19 20:00 99.5 78 18 105/57 (73) 97 11/27/19 16:18 98.0 11/27/19 15:58 98.0 74 19 134/110 (118) 98 11/27/19 15:48 134/110 (118) 11/27/19 12:45 91/59 (70) 11/27/19 12:00 98.3 78 18 82/49 (60) 97 11/27/19 10:50 Room Air 11/27/19 08:00 97.3 84 17 93/60 (71) 98 Intake and Output 11/28/19 11/29/19 19:00 07:00 Intake Total 720 ml 250 ml Output Total 1300 ml 750 ml Balance -580 ml -500 ml Intake Oral 720 ml 250 ml Output Urine Total 1300 ml 750 ml # Bowel Movements 1 1 Height (Feet): 5 Height (Inches): 7.00 Weight (Pounds): 114 Objective Physical Exam General Appearance: lethargic Lines, tubes and drains: peripheral, central line HEENT: normocephalic Neck: non-tender, normal alignment Respiratory/Chest: lungs clear Cardiovascular/Chest: normal peripheral pulses, normal rate, regular rhythm Abdomen: normal bowel sounds, non tender ++ llq colostomy : ++Martínez Geiger MD Nov 29, 2019 07:35
[2019-11-29 08:00] VITALS: BP 108/61
--- NOTE | 2019-11-29 08:41 | General Progress Note ---
Assessment/Plan Assessment/Plan: (1) Sacral decubitus ulcer (2) Paraplegia (3) Neuropathic pain Patient to be continued on [place] and Neurontin D/w Dr. Celaya and he concurred. Subjective Date patient seen: Nov 29, 2019 Time patient seen: 07:00 - am Allergies: Coded Allergies: No Known Allergies (Unverified , 08/15/19) Subjective REVIEW OF SYSTEMS: Denies rash, fever, chills, sweating, dizziness, drowsiness, blurred vision, sore throat, or change in weight. No shortness of breath or chest pain. No nausea, vomiting, diarrhea, blood in stool or urine. HISTORY OF PRESENT ILLNESS: This is a 59-year-old male who has been seen on the Med/Surg floor of [facility]. Patient sitting up in bed no signs of pain or distress. Using the [place] as no new complaints at this time. Objective Last 24 Hour Vital Signs Date Time Temp Pulse Resp B/P (MAP) Pulse Ox O2 Delivery O2 Flow Rate FiO2 11/29/19 08:00 97.9 64 19 108/61 (77) 93 11/29/19 04:00 98.3 54 18 98/53 (68) 97 11/29/19 00:00 98.4 70 18 105/64 (78) 95 11/28/19 21:00 Room Air 11/28/19 20:00 99.8 68 18 93/52 (66) 96 11/28/19 16:00 99.9 67 19 90/49 (63) 95 11/28/19 12:00 97.0 63 18 92/54 (67) 98 11/28/19 09:00 Room Air Intake and Output 11/28/19 11/29/19 19:00 07:00 Intake Total 720 ml 250 ml Output Total 1300 ml 750 ml Balance -580 ml -500 ml Intake Oral 720 ml 250 ml Output Urine Total 1300 ml 750 ml # Bowel Movements 1 1 Height (Feet): 5 Height (Inches): 7.00 Weight (Pounds): 114 Objective PHYSICAL EXAMINATION: GENERAL: Alert, awake, and oriented. LUNGS: Decreased breath sounds bilaterally. HEART: S1, S2 regular. ABDOMEN: Colostomy bag noted. EXTREMITIES: Upper and lower extremity range of motion is decreased due to the patient's condition. Contracture is noted. Sensory is reduced. Reflexes are not obtainable. No adenopathy. Danny Raymundo Nov 29, 2019 08:41
[2019-11-29] MEDS: Docusate Sod/Senna tab ORAL SCH ×2 (08:46→18:00)
[2019-11-29] MEDS: Sodium Chloride 1gm Tab ORAL SCH ×3 (08:48→18:03)
[2019-11-29] MEDS: Zinc Sulfate 220mg ORAL SCH (08:48)
[2019-11-29] MEDS: Eliquis 2.5mg tablet ORAL SCH ×2 (08:48→18:03)
[2019-11-29] MEDS: Polymyxin B Sulfate 500,000 units in D5W 550ml IV SCH ×2 (08:49→20:28)
[2019-11-29] MEDS: Desmopressin Nasal 5ml NASAL SCH (08:50)
--- NOTE | 2019-11-29 10:11 | General Progress Note ---
Assessment/Plan Problem List: (1) Septic shock ICD Codes: A41.9 - Sepsis, unspecified organism; R65.21 - Severe sepsis with septic shock SNOMED: 48658104 (2) Anemia ICD Codes: D64.9 - Anemia, unspecified SNOMED: 851541540 (3) Encephalopathy ICD Codes: G93.40 - Encephalopathy, unspecified SNOMED: 23022496 (4) Drug (multiple) resistant infection SNOMED: 24010865, 31428209765840 (5) Urinary tract infection in male ICD Codes: N39.0 - Urinary tract infection, site not specified SNOMED: 25584025, 931415313 (6) Hypokalemia ICD Codes: E87.6 - Hypokalemia SNOMED: 57715416 (7) Femur fracture ICD Codes: S72.90XA - Unspecified fracture of unspecified femur, initial encounter for closed fracture SNOMED: 39970092 (8) Hyponatremia ICD Codes: E87.1 - Hypo-osmolality and hyponatremia SNOMED: 86308702 (9) Sepsis ICD Codes: A41.9 - Sepsis, unspecified organism SNOMED: 45149027 (10) UTI (urinary tract infection) ICD Codes: N39.0 - Urinary tract infection, site not specified SNOMED: 88954048 (11) Hypotension ICD Codes: I95.9 - Hypotension, unspecified SNOMED: 85566991 (12) Decubital ulcer ICD Codes: L89.90 - Pressure ulcer of unspecified site, unspecified stage SNOMED: 053323066 (13) SEAN (acute kidney injury) ICD Codes: N17.9 - Acute kidney failure, unspecified SNOMED: 0302464, 10347657 Assessment/Plan: 59 year old man who presents from [facility] with weakness, encephalopathy, concern for septic shock, possible from UTI. #Acute Left Popliteal DVT -Pt has IVC filter -D/w Heme, cont eliquis 2.5 BID -monitor for signs of bleeding -d/c HSQ ppx given pt on eliquis #Fever #Septic shock- resolved #Proteus UTI #Actinobacter UTI, GPC UTI #Acute metabolic encephalopathy - resolved #Paraplegia #Sacral pressure ulcer, present on admit - Periods of hypotension and fever through hospitalization, VSS now - Covid 19 - negative - S/p vancomycin, cefepime, and flagyl - UCx on 11/19 positive for actinobacter and GPC - Spoke with surgery, reviewed CT findings, sacral pressure ulcer does not appear to be infected, ct findings consistent w/sacral ulcer - Cont Local wound care and offloading - Fever 101.7 on 11/20, repeat BCx ordered however pt refused labs - 10/20 CXR w/no acute process - fever 100.5 on 11/24, repeat BCx and labs ordered, d/w RN and ID, OK to draw from PICC line --> CBC with no leukocytosis - 11/24 BCx NGTD, cont to follow for final cx - Appreciate ID consult --> Zyvox and polymyxin #Sacral Decubitus Ulcer -CT abd/pel on 11/22/19 w/ subcutaneous gas -d/w with surgery, reviewed CT findings, sacral pressure ulcer does not appear to be infected, ct findings consistent w/sacral ulcer -wound care daily -appreciate wound care recs -abx per ID as above #Stool Impaction - improved -seen on CT abd on 11/22/2019 -s/p disimpaction by general sx with symptomatic improvement -cont Docusate-senna daily -PRN dulcolax #Fungal UTI - resolved, s/p treatment - Patient is high risk for fungemia - Diflucan 11/16 - 11/23 -Appreciate ID Consult #Sinus Bradycardia - resolved -continue telemetry -EP following 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 -Evaluated by endocrine for adrenal insufficiency -AM cortisol normal however patient continues to have labile BP and hyponatremia - Appreciate Nephrology consult - Appreciate Endocrine consult - Will continue Florinef, Salt Tab, and DDAVP - Continue Midodrine given labile BP - CT Brain without masses noted, will defer MRI - Refusing labs periodically #Hyponatremia - resolved #Hypokalemia - resolved -Intermittently refusing labs -Replete when necessary -On DDAVP intranasal #Anemia, acute on chronic - stable -s/p 2 units RBC 10/28 -Hematology following, no signs of overt bleeding - Continue Iron tab - Keep Hb >7 #Chronic 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 Appreciate referrals placed by CM. I spent 35 minutes on this patient's care today, and 20 mins was dedicated to counseling and care coordination. New to service and discussed plan of care with all consultants. Time of note doesn't reflect time of encounter. Subjective Date patient seen: Nov 29, 2019 Time patient seen: 09:30 ROS Limited/Unobtainable: Yes Allergies: Coded Allergies: No Known Allergies (Unverified , 08/15/19) All Systems: reviewed and negative except above Subjective No complaints. Objective Last 24 Hour Vital Signs Date Time Temp Pulse Resp B/P (MAP) Pulse Ox O2 Delivery O2 Flow Rate FiO2 11/29/19 08:00 97.9 64 19 108/61 (77) 93 11/29/19 04:00 98.3 54 18 98/53 (68) 97 11/29/19 00:00 98.4 70 18 105/64 (78) 95 11/28/19 21:00 Room Air 11/28/19 20:00 99.8 68 18 93/52 (66) 96 11/28/19 16:00 99.9 67 19 90/49 (63) 95 11/28/19 12:00 97.0 63 18 92/54 (67) 98 Intake and Output 11/28/19 11/29/19 19:00 07:00 Intake Total 720 ml 250 ml Output Total 1300 ml 750 ml Balance -580 ml -500 ml Intake Oral 720 ml 250 ml Output Urine Total 1300 ml 750 ml # Bowel Movements 1 1 Height (Feet): 5 Height (Inches): 7.00 Weight (Pounds): 114 General Appearance: no apparent distress, alert, cachetic EENT: normal ENT inspection, TMs normal Neck: normal alignment, supple, normal inspection Cardiovascular: normal peripheral pulses, normal rate, regular rhythm, no gallop/murmur, no JVD Respiratory/Chest: chest wall non-tender, lungs clear, normal breath sounds Abdomen: normal bowel sounds, non tender, soft, no organomegaly, no mass Extremities: non-tender Edema: no edema noted Arm (L), no edema noted Arm (R), no edema noted Leg (L), no edema noted Leg (R), no edema noted Pedal (L), no edema noted Pedal (R), no edema noted Generalized Neurologic: alert, responsive, normal mood/affect Skin: normal pigmentation, warm/dry, no diaphoresis Art Hensley M.D. Nov 29, 2019 10:11
--- NOTE | 2019-11-29 10:20 | Pulmonology Progress Note ---
Subjective ROS Limited/Unobtainable: Yes Interval Events: no fever or leucocytosis Constitutional: Reports: fatigue; Denies: fever HEENT: Repors: no symptoms Respiratory: Reports: no symptoms Cardiovascular: Reports: no symptoms Gastrointestinal/Abdominal: Denies: nausea, vomiting Genitourinary: Reports: no symptoms Psychiatric: Denies: depression Skin: Denies: rash Musculoskeletal: Denies: pain Allergies: Coded Allergies: No Known Allergies (Unverified , 08/15/19) All Systems: reviewed and negative except above Objective Last 24 Hour Vital Signs Date Time Temp Pulse Resp B/P (MAP) Pulse Ox O2 Delivery O2 Flow Rate FiO2 11/29/19 08:00 97.9 64 19 108/61 (77) 93 11/29/19 04:00 98.3 54 18 98/53 (68) 97 11/29/19 00:00 98.4 70 18 105/64 (78) 95 11/28/19 21:00 Room Air 11/28/19 20:00 99.8 68 18 93/52 (66) 96 11/28/19 16:00 99.9 67 19 90/49 (63) 95 11/28/19 12:00 97.0 63 18 92/54 (67) 98 Intake and Output 11/28/19 11/29/19 19:00 07:00 Intake Total 720 ml 250 ml Output Total 1300 ml 750 ml Balance -580 ml -500 ml Intake Oral 720 ml 250 ml Output Urine Total 1300 ml 750 ml # Bowel Movements 1 1 General Appearance: no acute distress HEENT: normocephalic Respiratory: chest wall non-tender, lungs clear Cardiovascular: normal peripheral pulses, regular rhythm Abdomen: normal bowel sounds Extremities: no cyanosis Current Medications Medications (Trade) Dose Ordered Sig/Mya Route PRN Reason Start Time Stop Time Status Last Admin Dose Admin Acetaminophen (Tylenol) 650 mg Q4H PRN ORAL Mild Pain (Pain Scale 1-3) 11/05/19 14:00 11/30/19 13:59 11/24/19 14:27 Acetaminophen (Tylenol) 650 mg Q4H PRN ORAL Temp >100.5 11/05/19 16:00 12/05/19 15:59 11/25/19 04:15 Acetaminophen/ Hydrocodone Bitart ([place] 5/325) 1 tab Q6H PRN ORAL Severe Pain (Pain Scale 7-10) 11/29/19 10:36 12/06/19 10:35 Apixaban (Eliquis) 2.5 mg BID ORAL 11/24/19 09:00 02/22/20 08:59 11/29/19 08:48 Bisacodyl (Dulcolax) 10 mg DAILYPRN PRN RECTAL Constipation 11/24/19 07:45 02/22/20 07:44 Chlorhexidine Gluconate (Simran-Hex 2%) 1 applic DAILY@2000 TOPIC 11/13/19 20:00 02/11/20 19:59 11/28/19 20:24 Desmopressin Acetate (Ddavp) 1 spray DAILY NASAL 11/14/19 09:00 02/07/20 17:59 11/29/19 08:50 Dextrose (Dextrose 50%) 25 ml Q30M PRN IV Hypoglycemia 11/05/19 13:30 01/21/20 17:29 Dextrose (Dextrose 50%) 50 ml Q30M PRN IV Hypoglycemia 11/05/19 13:30 01/21/20 17:29 Famotidine (Pepcid) 20 mg DAILY ORAL 11/06/19 09:00 01/28/20 09:29 11/29/19 08:49 Ferrous Sulfate (Feosol) 325 mg DAILY ORAL 11/06/19 09:00 01/22/20 08:59 11/29/19 08:48 Fludrocortisone Acetate (Florinef) 0.1 mg DAILY ORAL 11/15/19 09:00 12/15/19 08:59 11/29/19 08:46 Gabapentin (Neurontin) 400 mg Q8HR ORAL 11/05/19 14:00 12/03/19 21:59 11/29/19 05:36 Linezolid (Zyvox) 600 mg Q12HR ORAL 11/24/19 11:00 11/29/19 10:59 11/28/19 20:24 Magnesium Hydroxide (Mom) 30 ml HSPRN PRN ORAL Constipation 11/13/19 11:15 12/13/19 11:14 Midodrine (Pro-Amatine) 10 mg EVERY 8 HOURS ORAL 11/05/19 14:00 01/21/20 17:59 11/29/19 05:36 Naloxone HCl (Narcan) 0.2 mg Q2M PRN IVP RESPRITORY DEPRESSION RR<8 11/24/19 10:15 02/22/20 10:14 Polymyxin B Sulfate 458954 units/Dextrose 550 ml @ 550 mls/hr EVERY 12 HOURS IV 11/24/19 21:00 12/01/19 20:59 11/29/19 08:49 Senna/Docusate Sodium (Haley-Colace) 1 tab TWICE A DAY ORAL 11/24/19 09:00 12/24/19 08:59 11/29/19 08:46 Sodium Chloride (NaCl) 1 gm THREE TIMES A DAY ORAL 11/09/19 13:00 12/09/19 12:59 11/29/19 08:48 Zinc Sulfate (Zinc Sulfate) 220 mg DAILY ORAL 11/06/19 09:00 01/22/20 08:59 11/29/19 08:48 Assessment/Plan Assessment/Plan IMPRESSION: 1. Septic shock. resolved 2. Complicated UTI with history of previous ESBL infection. 3. Paraplegia. 4. Sacral decubitus. 5. [facility] resident. DISCUSSION: DVT and GI prophylaxes. Continue Oxygen prn, doing well on room air at this time. DC planning Haily Monzon Omar Syed MD Nov 29, 2019 10:20
[2019-11-29 12:00] VITALS: BP 96/58
--- NOTE | 2019-11-29 14:31 | Surgery Progress Note ---
Surgery Progress Note Subjective Symptoms: improved, tolerating diet, passing flatus Objective Last 24 Hour Vital Signs Date Time Temp Pulse Resp B/P (MAP) Pulse Ox O2 Delivery O2 Flow Rate FiO2 11/29/19 12:00 98.1 68 19 96/58 (71) 96 11/29/19 09:00 Room Air 11/29/19 08:00 97.9 64 19 108/61 (77) 93 11/29/19 04:00 98.3 54 18 98/53 (68) 97 11/29/19 00:00 98.4 70 18 105/64 (78) 95 11/28/19 21:00 Room Air 11/28/19 20:00 99.8 68 18 93/52 (66) 96 11/28/19 16:00 99.9 67 19 90/49 (63) 95 I&O Intake and Output 11/28/19 11/29/19 19:00 07:00 Intake Total 720 ml 250 ml Output Total 1300 ml 750 ml Balance -580 ml -500 ml Intake Oral 720 ml 250 ml Output Urine Total 1300 ml 750 ml # Bowel Movements 1 1 Dressing: saturated Cardiovascular: RSR Respiratory: decreased breath sounds Abdomen: soft, non-tender, present bowel sounds Extremities: no cyanosis Plan Problems: (1) Abdominal distension Assessment & Plan: abd distention soft non tender ostomy viable and reduced KUB ordered pending results improved comfortable no complaints okay for diet s tolerated d/c planning much improved There is an inferior vena cava filter in place. Bowel gas pattern is unremarkable. Considerable stool is seen in the transverse and distal colon. There is extensive pelvic deformity, with loss of the left femoral head, chronic dislocation of the left femur, and extensive pelvic deformity, particularly on the left. [place] project over the upper pelvis Impression: Possible constipation. pending placement Nonobstructed bowel gas pattern. Moderate fecal retention of the ascending colon and sigmoid colon. The degree of stool burden has increased from October 25, 2019. IVC filter, incidentally noted. Partial subluxation of the right hip. Osteotomy of the proximal left femur with deformity of the bilateral pubic rami and left acetabulum, unchanged. 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 [place] Shaped, Full Thickness Sacral Pressure Injury which extends into L ischium. (L)15.4cm x (W)18cm x (D)2.4cm, Undermining clockwise 10-2 by 7.7cm @11o'clock. Base of wound is moist,pink with scattered slough at base of wound. Bone is palpable at the Base. No odor or exudate noted. Scattered partial thickness wounds and Serous filled blisters noted to R trochanteric /R Hip areas. Historical scar noted to L groin, L Hip L Buttocks. Bony protrusion noted at L Hip. Full thickness Pressure Injury R Ischium(L)5.4cm x(W)6.9cm x (D)1.8cm,Undermining clockwise 1-4 by 2.7cm @2o'clock, Tunneling@7o'clock 2.9cm. Base of wound is moist pink with scattered slough. Scattered slough noted along borders. NO odor or exudate noted. Stable dry eschar noted to medial R knee 0.7cm x (W)0.4cm. Periwound is erythematous and indurated. No elevation in skin temp noted. L heel has shaved appearance secondary to Hx of Pressure Injuries. Base of heel is pale pink. Bone is palpable. Small area of slough noted within compromised area(L)0.6cm x (W)0.8cm. L Heel Also has shaved appearance with hypertrophic scarring. Base of compromised area is pale pink, Bone is palpable, with scattered loose, dry and scaly skin. Patient's wound remains very large extensive and requires significant amount of care. Continued care of the wounds have been provided though patient is having continence through the anus at this time again despite diversion. Wounds remain saturated times and great nursing care is being provided unfortunately inevitable decline is still significantly potential given his overall condition. Tx.Plan: Cleanse Sacral Wound and R Ischial wounds with Dakin's 0.125% gian. Loosely pack wounds with Hydrogel impregnated Kerlix. Apply Moisture Barrier Paste periwound. Cover with ABD Pads secure with Tegaderm drsg.Daily and prn. Apply Triad Paste to R Hip/R trochanteric areas.Cover with Optifoam drsg. Change every 7 days and prn. Apply Betadine to Medial R Knee. Cover with Optifoam drsg. Change every 7 days and prn. Apply Betadine to R and L Heels. Cover each Heel with Optifoam drsgs. Change every 7 days and prn. Cover Bony Prominences as needed with Optifoam drsgs. Reposition at least every 2 hours [address] as tolerated[address] Pillow between knees. Off-load heels with pillow. APM/SUMI Mattress overlay DAILY ESTIMATED NEEDS: Needs based on Advanced wounds, wt loss/ 40.18kg 35-40 kcals/kg 6174-3438 total kcals 1.5-2.0 g protein/kg 60-80 g total protein 25-35ml/kcal mL/kg 0818-1788 total fluid mLs NUTRITION DIAGNOSIS: Increased kcal/prot/micronutrients needs R/T wound healing and underweight status as evidenced by pt admitted w/ multiple advanced wounds, refer to WC eval, pt now w/ further 3% unfavorable wt loss, currently BMI underweight per guidelines, @62% of [place] Body Weight. 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 There is distention of the rectum with feces, rectal diameter 70 mm. There is some thickening of the rectal wall. The appendix is not definitely visualized, but no findings to suggest acute appendicitis are evident. There is considerable stool throughout the colon. There appears to be rectal incontinence of stool despite the diverting colostomy. Cornelius Salgado Nov 29, 2019 14:31
[2019-11-29 16:00] VITALS: BP 96/55
--- NOTE | 2019-11-29 17:01 | Cardiology Progress Note ---
Assessment/Plan Status: stable Assessment/Plan Assessment/Plan Assessment/Plan 1. S/P Septic shock. on Midodrine, iv fluids and antibiotic 2. Bradycardia. Resolved. 3. Paraplegia. 4. Urinary tract infection, 5. Decubitus ulcers with sacral decubitus. 6. S/P Ileostomy/ 7. Polyuria, DI. On NS, Salt tablets Subjective Cardiovascular: Reports: no symptoms Respiratory: Reports: no symptoms Gastrointestinal/Abdominal: Reports: no symptoms Genitourinary: Reports: no symptoms Subjective COVERAGE FOR TOUIE Objective Last 24 Hour Vital Signs Date Time Temp Pulse Resp B/P (MAP) Pulse Ox O2 Delivery O2 Flow Rate FiO2 11/29/19 12:00 98.1 68 19 96/58 (71) 96 11/29/19 09:00 Room Air 11/29/19 08:00 97.9 64 19 108/61 (77) 93 11/29/19 04:00 98.3 54 18 98/53 (68) 97 11/29/19 00:00 98.4 70 18 105/64 (78) 95 11/28/19 21:00 Room Air 11/28/19 20:00 99.8 68 18 93/52 (66) 96 General Appearance: no apparent distress, alert EENT: PERRL/EOMI, normal ENT inspection, TMs normal, pharynx normal Neck: non-tender, normal alignment, supple Rhythm: NSR Cardiovascular: normal peripheral pulses, normal rate, regular rhythm Respiratory/Chest: chest wall non-tender, lungs clear Abdomen: normal bowel sounds, non tender, soft, no organomegaly, no mass Extremities: normal range of motion, non-tender, normal inspection, no calf tenderness, no swelling Neurologic: customer support engineer II-XII grossly normal, no motor/sensory deficits Intake and Output 11/28/19 11/29/19 19:00 07:00 Intake Total 720 ml 250 ml Output Total 1300 ml 750 ml Balance -580 ml -500 ml Intake Oral 720 ml 250 ml Output Urine Total 1300 ml 750 ml # Bowel Movements 1 1 Anthony Gutiérrez MD Nov 29, 2019 17:01
--- NOTE | 2019-11-29 19:18 | Cardiology Report ---
APPROVED REPORT EKG Measurement Heart [id number] <Conclusion> Sinus bradycardia Otherwise normal ECG
--- NOTE | 2019-11-29 19:18 | Cardiology Report ---
APPROVED REPORT EKG Measurement Heart [id number] <Conclusion> Suspect arm lead reversal, interpretation assumes no reversal Sinus bradycardia Right axis deviation Abnormal ECG
--- NOTE | 2019-11-29 19:19 | Cardiology Report ---
APPROVED REPORT EXAM: Two-dimensional and M-mode echocardiogram with Doppler and color Doppler. INDICATION S.O.B M-Mode DIMENSIONS IVSd0.5 (0.7-1.1cm)Left Atrium (MM)2.4 (1.6-4.0cm) LVDd4.5 (3.5-5.6cm)Aortic Root2.9 (2.0-3.7cm) PWd0.5 (0.7-1.1cm)Aortic Cusp Exc.1.9 (1.5-2.0cm) IVSs0.9 cm LVDs3.0 (2.5-4.0cm) PWs1.0 cm Other Information Quality : Poor <Conclusion> Technically difficult study due to poor acoustical windows. Normal left ventricular chamber size, systolic function and wall motion to extent visualized. Left ventricular ejection fraction estimated to be grossly 55 %. All other cardiac chamber sizes are within normal limits , however note that RV appear dilated in parasternal view but not confirmed on other views , clinical corelateaion recommended Calcification of aortic valve with adequate cusp excursion. Moderate thickened mitral valve leaflets with normal excursion. Moderate mitral annulus and aortic root calcification. Pulmonic valve not well visualized. Normal tricuspid valve structure. IVC measured at 1.8 cm without physiologic collapse suggestive of increased RA pressure. A color flow and spectral Doppler study was performed and revealed: No aortic regurgitation. Trace mitral regurgitation. Mitral diastolic velocities suggest reduced left ventricular relaxation c/w mild LV diastolic dysfunction (Grade I ). Trace tricuspid regurgitation. Tricuspid systolic velocities suggests peak right ventricular systolic pressure of15
[2019-11-29 20:00] VITALS: BP 108/50
[2019-11-29] MEDS: Dyna-Hex 2% Top Sol 2oz TOPIC SCH (20:28)
--- NOTE | 2019-11-29 21:35 | Nephrology Progress Note ---
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 - improved with desmporessin #Shock #UTI # infected sacral pressure ulcer #Acute metabolic encephalopathy #Paraplegia #Sacral pressure ulcer #Hypokalemia #Anemia - continue florinef 0.1mg daily -Continue desmopressin nasal - continue salt tabs 1g TID - continue midodrine 10 TID - endocrine eval noted - r/o adrenal insuffiency - antibiotics per ID - monitor lytes - avoid nephrotoxins - daily weights - strict I&Os time spent 40 min- greater than 50% on care coordination and counseling Subjective Subjective UOP 2550 labs reviewed on florinef 0.1mg daily Bp stable on nasal desmopressin on salt tabs Objective Objective Last 24 Hour Vital Signs Date Time Temp Pulse Resp B/P (MAP) Pulse Ox O2 Delivery O2 Flow Rate FiO2 11/29/19 16:00 98.6 71 17 96/55 (69) 97 11/29/19 12:00 98.1 68 19 96/58 (71) 96 11/29/19 09:00 Room Air 11/29/19 08:00 97.9 64 19 108/61 (77) 93 11/29/19 04:00 98.3 54 18 98/53 (68) 97 11/29/19 00:00 98.4 70 18 105/64 (78) 95 Intake and Output 11/28/19 11/29/19 19:00 07:00 Intake Total 720 ml 250 ml Output Total 1300 ml 750 ml Balance -580 ml -500 ml Intake Oral 720 ml 250 ml Output Urine Total 1300 ml 750 ml # Bowel Movements 1 1 Height (Feet): 5 Height (Inches): 7.00 Weight (Pounds): 114 Sienna Georges M.D. Nov 29, 2019 21:35
[2019-11-30] VITALS: BP 111/58
[2019-11-30 04:00] VITALS: BP 103/61
[2019-11-30] MEDS: Midodrine 10mg tab ORAL SCH ×3 (05:28→21:25)
[2019-11-30] MEDS: HYDROcodone/Acetamin 5/325 tab ORAL PRN ×2 (05:29→18:45)
[2019-11-30 08:00] VITALS: BP 106/65
--- NOTE | 2019-11-30 08:40 | General Progress Note ---
Subjective Date patient seen: Nov 30, 2019 Time patient seen: 07:00 - am Allergies: Coded Allergies: No Known Allergies (Unverified , 08/15/19) Subjective REVIEW OF SYSTEMS: Denies rash, fever, chills, sweating, dizziness, drowsiness, blurred vision, sore throat, or change in weight. No shortness of breath or chest pain. No nausea, vomiting, diarrhea, blood in stool or urine. HISTORY OF PRESENT ILLNESS: This is a 59-year-old male who has been seen on the Med/Surg floor of [facility]. Patient showing no signs of pain or distress. Has used 2 [place] in the last 24hrs. No new complaints at this time. Objective Last 24 Hour Vital Signs Date Time Temp Pulse Resp B/P (MAP) Pulse Ox O2 Delivery O2 Flow Rate FiO2 11/30/19 08:00 98.0 65 19 106/65 (79) 98 11/30/19 04:00 98.1 61 20 103/61 (75) 97 11/30/19 00:00 98.0 69 20 111/58 (75) 97 11/29/19 21:00 Room Air 11/29/19 20:00 97.8 67 17 108/50 (69) 97 11/29/19 16:00 98.6 71 17 96/55 (69) 97 11/29/19 12:00 98.1 68 19 96/58 (71) 96 11/29/19 09:00 Room Air Intake and Output 11/29/19 11/30/19 19:00 07:00 Intake Total 960 ml 380 ml Output Total 1200 ml 950 ml Balance -240 ml -570 ml Intake Oral 960 ml 380 ml Output Urine Total 1200 ml 950 ml # Bowel Movements 1 1 Height (Feet): 5 Height (Inches): 7.00 Weight (Pounds): 114 Objective PHYSICAL EXAMINATION: GENERAL: Alert, awake, and oriented. LUNGS: Decreased breath sounds bilaterally. HEART: S1, S2 regular. ABDOMEN: Colostomy bag noted. EXTREMITIES: Upper and lower extremity range of motion is decreased due to the patient's condition. Contracture is noted. Sensory is reduced. Reflexes are not obtainable. No adenopathy. Assessment/Plan Assessment/Plan: (1) Sacral decubitus ulcer (2) Paraplegia (3) Neuropathic pain Patient to be continued on [place] and Neurontin D/w Dr. Celaya and he concurred. Danny Raymundo Nov 30, 2019 08:39
[2019-11-30] MEDS: Sodium Chloride 1gm Tab ORAL SCH ×3 (08:53→17:35)
[2019-11-30] MEDS: Zinc Sulfate 220mg ORAL SCH (08:53)
[2019-11-30] MEDS: Docusate Sod/Senna tab ORAL SCH ×2 (08:53→17:36)
[2019-11-30] MEDS: Eliquis 2.5mg tablet ORAL SCH ×2 (08:54→17:36)
[2019-11-30] MEDS: Desmopressin Nasal 5ml NASAL SCH (10:03)
[2019-11-30] MEDS: Polymyxin B Sulfate 500,000 units in D5W 550ml IV SCH ×2 (10:07→21:28)
--- NOTE | 2019-11-30 10:43 | Surgery Progress Note ---
Surgery Progress Note Subjective Additional Comments no acute events comfortable stable Objective Last 24 Hour Vital Signs Date Time Temp Pulse Resp B/P (MAP) Pulse Ox O2 Delivery O2 Flow Rate FiO2 11/30/19 08:00 98.0 65 19 106/65 (79) 98 11/30/19 04:00 98.1 61 20 103/61 (75) 97 11/30/19 00:00 98.0 69 20 111/58 (75) 97 11/29/19 21:00 Room Air 11/29/19 20:00 97.8 67 17 108/50 (69) 97 11/29/19 16:00 98.6 71 17 96/55 (69) 97 11/29/19 12:00 98.1 68 19 96/58 (71) 96 I&O Intake and Output 11/29/19 11/30/19 19:00 07:00 Intake Total 960 ml 380 ml Output Total 1200 ml 950 ml Balance -240 ml -570 ml Intake Oral 960 ml 380 ml Output Urine Total 1200 ml 950 ml # Bowel Movements 1 1 Dressing: other Wound: other Cardiovascular: RSR Respiratory: decreased breath sounds Abdomen: soft, non-tender, present bowel sounds Extremities: no tenderness, no cyanosis Plan Problems: (1) Abdominal distension Assessment & Plan: abd distention soft non tender ostomy viable and reduced KUB ordered pending results improved comfortable no complaints okay for diet s tolerated d/c planning much improved There is an inferior vena cava filter in place. Bowel gas pattern is unremarkable. Considerable stool is seen in the transverse and distal colon. There is extensive pelvic deformity, with loss of the left femoral head, chronic dislocation of the left femur, and extensive pelvic deformity, particularly on the left. [place] project over the upper pelvis Impression: Possible constipation. pending placement Nonobstructed bowel gas pattern. Moderate fecal retention of the ascending colon and sigmoid colon. The degree of stool burden has increased from October 25, 2019. IVC filter, incidentally noted. Partial subluxation of the right hip. Osteotomy of the proximal left femur with deformity of the bilateral pubic rami and left acetabulum, unchanged. 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 [place] Shaped, Full Thickness Sacral Pressure Injury which extends into L ischium. (L)15.4cm x (W)18cm x (D)2.4cm, Undermining clockwise 10-2 by 7.7cm @11o'clock. Base of wound is moist,pink with scattered slough at base of wound. Bone is palpable at the Base. No odor or exudate noted. Scattered partial thickness wounds and Serous filled blisters noted to R trochanteric /R Hip areas. Historical scar noted to L groin, L Hip L Buttocks. Bony protrusion noted at L Hip. Full thickness Pressure Injury R Ischium(L)5.4cm x(W)6.9cm x (D)1.8cm,Undermining clockwise 1-4 by 2.7cm @2o'clock, Tunneling@7o'clock 2.9cm. Base of wound is moist pink with scattered slough. Scattered slough noted along borders. NO odor or exudate noted. Stable dry eschar noted to medial R knee 0.7cm x (W)0.4cm. Periwound is erythematous and indurated. No elevation in skin temp noted. L heel has shaved appearance secondary to Hx of Pressure Injuries. Base of heel is pale pink. Bone is palpable. Small area of slough noted within compromised area(L)0.6cm x (W)0.8cm. L Heel Also has shaved appearance with hypertrophic scarring. Base of compromised area is pale pink, Bone is palpable, with scattered loose, dry and scaly skin. Patient's wound remains very large extensive and requires significant amount of care. Continued care of the wounds have been provided though patient is having continence through the anus at this time again despite diversion. Wounds remain saturated times and great nursing care is being provided unfortunately inevitable decline is still significantly potential given his overall condition. Tx.Plan: Cleanse Sacral Wound and R Ischial wounds with Dakin's 0.125% gian. Loosely pack wounds with Hydrogel impregnated Kerlix. Apply Moisture Barrier Paste periwound. Cover with ABD Pads secure with Tegaderm drsg.Daily and prn. Apply Triad Paste to R Hip/R trochanteric areas.Cover with Optifoam drsg. Change every 7 days and prn. Apply Betadine to Medial R Knee. Cover with Optifoam drsg. Change every 7 days and prn. Apply Betadine to R and L Heels. Cover each Heel with Optifoam drsgs. Change every 7 days and prn. Cover Bony Prominences as needed with Optifoam drsgs. Reposition at least every 2 hours or as tolerated[address] Pillow between knees. Off-load heels with pillow. APM/SUMI Mattress overlay DAILY ESTIMATED NEEDS: Needs based on Advanced wounds, wt loss/ 40.18kg 35-40 kcals/kg 5072-4917 total kcals 1.5-2.0 g protein/kg 60-80 g total protein 25-35ml/kcal mL/kg 8227-9552 total fluid mLs NUTRITION DIAGNOSIS: Increased kcal/prot/micronutrients needs R/T wound healing and underweight status as evidenced by pt admitted w/ multiple advanced wounds, refer to WC eval, pt now w/ further 3% unfavorable wt loss, currently BMI underweight per guidelines, @62% of [place] Body Weight. 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 There is distention of the rectum with feces, rectal diameter 70 mm. There is some thickening of the rectal wall. The appendix is not definitely visualized, but no findings to suggest acute appendicitis are evident. There is considerable stool throughout the colon. There appears to be rectal incontinence of stool despite the diverting colostomy. Cornelius Salgado Nov 30, 2019 10:43
--- NOTE | 2019-11-30 10:58 | Pulmonology Progress Note ---
Subjective ROS Limited/Unobtainable: Yes Interval Events: no fever or leucocytosis Constitutional: Reports: fatigue; Denies: fever HEENT: Repors: no symptoms Respiratory: Reports: no symptoms Cardiovascular: Reports: no symptoms Gastrointestinal/Abdominal: Denies: nausea, vomiting Genitourinary: Reports: no symptoms Psychiatric: Denies: depression Skin: Denies: rash Musculoskeletal: Denies: pain Allergies: Coded Allergies: No Known Allergies (Unverified , 08/15/19) All Systems: reviewed and negative except above Objective Last 24 Hour Vital Signs Date Time Temp Pulse Resp B/P (MAP) Pulse Ox O2 Delivery O2 Flow Rate FiO2 11/30/19 08:00 98.0 65 19 106/65 (79) 98 11/30/19 04:00 98.1 61 20 103/61 (75) 97 11/30/19 00:00 98.0 69 20 111/58 (75) 97 11/29/19 21:00 Room Air 11/29/19 20:00 97.8 67 17 108/50 (69) 97 11/29/19 16:00 98.6 71 17 96/55 (69) 97 11/29/19 12:00 98.1 68 19 96/58 (71) 96 Intake and Output 11/29/19 11/30/19 19:00 07:00 Intake Total 960 ml 380 ml Output Total 1200 ml 950 ml Balance -240 ml -570 ml Intake Oral 960 ml 380 ml Output Urine Total 1200 ml 950 ml # Bowel Movements 1 1 General Appearance: no acute distress HEENT: normocephalic Respiratory: chest wall non-tender, lungs clear Cardiovascular: normal peripheral pulses, regular rhythm Abdomen: normal bowel sounds Extremities: no cyanosis Current Medications Medications (Trade) Dose Ordered Sig/Mya Route PRN Reason Start Time Stop Time Status Last Admin Dose Admin Acetaminophen (Tylenol) 650 mg Q4H PRN ORAL Mild Pain (Pain Scale 1-3) 11/05/19 14:00 11/30/19 13:59 11/24/19 14:27 Acetaminophen (Tylenol) 650 mg Q4H PRN ORAL Temp >100.5 11/05/19 16:00 12/05/19 15:59 11/25/19 04:15 Acetaminophen/ Hydrocodone Bitart (Myrtle 5/325) 1 tab Q6H PRN ORAL Severe Pain (Pain Scale 7-10) 11/29/19 10:36 12/06/19 10:35 11/30/19 05:29 Apixaban (Eliquis) 2.5 mg BID ORAL 11/24/19 09:00 02/22/20 08:59 11/30/19 08:54 Bisacodyl (Dulcolax) 10 mg DAILYPRN PRN RECTAL Constipation 11/24/19 07:45 02/22/20 07:44 Chlorhexidine Gluconate (Simran-Hex 2%) 1 applic DAILY@2000 TOPIC 11/13/19 20:00 02/11/20 19:59 11/29/19 20:28 Desmopressin Acetate (Ddavp) 1 spray DAILY NASAL 11/14/19 09:00 02/07/20 17:59 11/30/19 10:03 Dextrose (Dextrose 50%) 25 ml Q30M PRN IV Hypoglycemia 11/05/19 13:30 01/21/20 17:29 Dextrose (Dextrose 50%) 50 ml Q30M PRN IV Hypoglycemia 11/05/19 13:30 01/21/20 17:29 Famotidine (Pepcid) 20 mg DAILY ORAL 11/06/19 09:00 01/28/20 09:29 11/30/19 08:53 Ferrous Sulfate (Feosol) 325 mg DAILY ORAL 11/06/19 09:00 01/22/20 08:59 11/30/19 08:53 Fludrocortisone Acetate (Florinef) 0.1 mg DAILY ORAL 11/15/19 09:00 12/15/19 08:59 11/30/19 08:53 Gabapentin (Neurontin) 400 mg Q8HR ORAL 11/05/19 14:00 12/03/19 21:59 11/30/19 05:28 Linezolid (Zyvox) 600 mg Q12HR ORAL 11/29/19 21:00 11/30/19 23:59 11/30/19 08:53 Magnesium Hydroxide (Mom) 30 ml HSPRN PRN ORAL Constipation 11/13/19 11:15 12/13/19 11:14 Midodrine (Pro-Amatine) 10 mg EVERY 8 HOURS ORAL 11/05/19 14:00 01/21/20 17:59 11/30/19 05:28 Naloxone HCl (Narcan) 0.2 mg Q2M PRN IVP RESPRITORY DEPRESSION RR<8 11/24/19 10:15 02/22/20 10:14 Polymyxin B Sulfate 275609 units/Dextrose 550 ml @ 550 mls/hr EVERY 12 HOURS IV 11/24/19 21:00 12/01/19 20:59 11/30/19 10:07 Senna/Docusate Sodium (Haley-Colace) 1 tab TWICE A DAY ORAL 11/24/19 09:00 12/24/19 08:59 11/30/19 08:53 Sodium Chloride (NaCl) 1 gm THREE TIMES A DAY ORAL 11/09/19 13:00 12/09/19 12:59 11/30/19 08:53 Zinc Sulfate (Zinc Sulfate) 220 mg DAILY ORAL 11/06/19 09:00 01/22/20 08:59 11/30/19 08:53 Assessment/Plan Assessment/Plan IMPRESSION: 1. Septic shock. resolved 2. Complicated UTI with history of previous ESBL infection. 3. Paraplegia. 4. Sacral decubitus. 5. assisted resident. DISCUSSION: DVT and GI prophylaxes. Continue Oxygen prn, doing well on room air at this time. DC planning Haily Monzon Omar Syed MD Nov 30, 2019 10:58
--- NOTE | 2019-11-30 11:13 | General Progress Note ---
Subjective Date patient seen: Nov 30, 2019 Time patient seen: 09:30 ROS Limited/Unobtainable: Yes Constitutional: Denies: diaphoresis, fever, malaise HEENT: Denies: tearing, double vision, ear pain Cardiovascular: Denies: edema, irregular heart rate Respiratory: Denies: orthopnea, shortness of breath, SOB with excertion Gastrointestinal/Abdominal: Denies: black stools, tarry stools Genitourinary: Denies: frequency, flank pain, hematuria, incontinence Neurologic/Psychiatric: Denies: emotional problems, headache, numbness Endocrine: Denies: flushing, intolerance to cold, intolerance to heat, increased hunger Allergies: Coded Allergies: No Known Allergies (Unverified , 08/15/19) Subjective No complaints. Objective Last 24 Hour Vital Signs Date Time Temp Pulse Resp B/P (MAP) Pulse Ox O2 Delivery O2 Flow Rate FiO2 11/30/19 09:00 Room Air 11/30/19 08:00 98.0 65 19 106/65 (79) 98 11/30/19 04:00 98.1 61 20 103/61 (75) 97 11/30/19 00:00 98.0 69 20 111/58 (75) 97 11/29/19 21:00 Room Air 11/29/19 20:00 97.8 67 17 108/50 (69) 97 11/29/19 16:00 98.6 71 17 96/55 (69) 97 11/29/19 12:00 98.1 68 19 96/58 (71) 96 Intake and Output 11/29/19 11/30/19 19:00 07:00 Intake Total 960 ml 380 ml Output Total 1200 ml 950 ml Balance -240 ml -570 ml Intake Oral 960 ml 380 ml Output Urine Total 1200 ml 950 ml # Bowel Movements 1 1 Height (Feet): 5 Height (Inches): 7.00 Weight (Pounds): 114 General Appearance: no apparent distress, alert, cachetic, alert oriented x3 EENT: normal ENT inspection Neck: non-tender, normal alignment, supple Cardiovascular: normal peripheral pulses, normal rate, regular rhythm Respiratory/Chest: chest wall non-tender, lungs clear, normal breath sounds, no respiratory distress Abdomen: normal bowel sounds, non tender, soft, no organomegaly, no mass Edema: no edema noted Arm (L), no edema noted Arm (R), no edema noted Leg (L), no edema noted Leg (R), no edema noted Pedal (L), no edema noted Pedal (R), no edema noted Generalized Neurologic: oriented x 3, responsive, normal mood/affect Skin: normal pigmentation, warm/dry, no diaphoresis Assessment/Plan Problem List: (1) Septic shock ICD Codes: A41.9 - Sepsis, unspecified organism; R65.21 - Severe sepsis with septic shock SNOMED: 76422840 (2) Anemia ICD Codes: D64.9 - Anemia, unspecified SNOMED: 086007498 (3) Encephalopathy ICD Codes: G93.40 - Encephalopathy, unspecified SNOMED: 79695754 (4) Drug (multiple) resistant infection SNOMED: 73799179, 38723641454647 (5) Urinary tract infection in male ICD Codes: N39.0 - Urinary tract infection, site not specified SNOMED: 69534462, 284794146 (6) Hypokalemia ICD Codes: E87.6 - Hypokalemia SNOMED: 02501413 (7) Femur fracture ICD Codes: S72.90XA - Unspecified fracture of unspecified femur, initial encounter for closed fracture SNOMED: 22620129 (8) Hyponatremia ICD Codes: E87.1 - Hypo-osmolality and hyponatremia SNOMED: 02618821 (9) Sepsis ICD Codes: A41.9 - Sepsis, unspecified organism SNOMED: 81190830 (10) UTI (urinary tract infection) ICD Codes: N39.0 - Urinary tract infection, site not specified SNOMED: 90172695 (11) Hypotension ICD Codes: I95.9 - Hypotension, unspecified SNOMED: 38325283 (12) Decubital ulcer ICD Codes: L89.90 - Pressure ulcer of unspecified site, unspecified stage SNOMED: 741420119 (13) SEAN (acute kidney injury) ICD Codes: N17.9 - Acute kidney failure, unspecified SNOMED: 5394072, 86953137 Assessment/Plan: 59 year old man who presents from [facility] with weakness, encephalopathy, concern for septic shock, possible from UTI. #Acute Left Popliteal DVT -Pt has IVC filter -D/w Heme, cont eliquis 2.5 BID -monitor for signs of bleeding -d/c HSQ ppx given pt on eliquis #Fever #Septic shock- resolved #Proteus UTI #Actinobacter UTI, GPC UTI #Acute metabolic encephalopathy - resolved #Paraplegia #Sacral pressure ulcer, present on admit - Periods of hypotension and fever through hospitalization, VSS now - Covid 19 - negative - S/p vancomycin, cefepime, and flagyl - UCx on 11/19 positive for actinobacter and GPC - Spoke with surgery, reviewed CT findings, sacral pressure ulcer does not appear to be infected, ct findings consistent w/sacral ulcer - Cont Local wound care and offloading - Fever 101.7 on 11/20, repeat BCx ordered however pt refused labs - 10/20 CXR w/no acute process - fever 100.5 on 11/24, repeat BCx and labs ordered, d/w RN and ID, OK to draw from PICC line --> CBC with no leukocytosis - 11/24 BCx NGTD, cont to follow for final cx - Appreciate ID consult --> Zyvox and polymyxin #Sacral Decubitus Ulcer -CT abd/pel on 11/22/19 w/ subcutaneous gas -d/w with surgery, reviewed CT findings, sacral pressure ulcer does not appear to be infected, ct findings consistent w/sacral ulcer -wound care daily -appreciate wound care recs -abx per ID as above #Stool Impaction - improved -seen on CT abd on 11/22/2019 -s/p disimpaction by general sx with symptomatic improvement -cont Docusate-senna daily -PRN dulcolax #Fungal UTI - resolved, s/p treatment - Patient is high risk for fungemia - Diflucan 11/16 - 11/23 -Appreciate ID Consult #Sinus Bradycardia - resolved -continue telemetry -EP following 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 -Evaluated by endocrine for adrenal insufficiency -AM cortisol normal however patient continues to have labile BP and hyponatremia - Appreciate Nephrology consult - Appreciate Endocrine consult - Will continue Florinef, Salt Tab, and DDAVP - Continue Midodrine given labile BP - CT Brain without masses noted, will defer MRI - Refusing labs periodically #Hyponatremia - resolved #Hypokalemia - resolved -Intermittently refusing labs -Replete when necessary -On DDAVP intranasal #Anemia, acute on chronic - stable -s/p 2 units RBC 8/16 -Hematology following, no signs of overt bleeding - Continue Iron tab - Keep Hb >7 #Chronic Lower extremity pain Likely 2' contractures and prior accident - Gabapentin, Pep, Baclofen - pain management consulted, recs appreciated FEN: Lina 2.5 BID Jevity TF #Dispo - Awaiting SNF bed placement. Appreciate referrals placed by CM. I spent 36 minutes on this patient's care today, and 21 mins was dedicated to counseling and care coordination. New to service and discussed plan of care with all consultants. Time of note doesn't reflect time of encounter. Art Hensley M.D. Nov 30, 2019 11:13
[2019-11-30 12:00] VITALS: BP 110/68
--- NOTE | 2019-11-30 14:26 | Cardiology Progress Note ---
Assessment/Plan Assessment/Plan Assessment/Plan Assessment/Plan 1. S/P Septic shock. on Midodrine, iv fluids and antibiotic 2. Bradycardia. Resolved. 3. Paraplegia. 4. Urinary tract infection, 5. Decubitus ulcers with sacral decubitus. 6. S/P Ileostomy/ 7. Polyuria, DI. On NS, Salt tablets Subjective Cardiovascular: Reports: no symptoms Respiratory: Reports: no symptoms Gastrointestinal/Abdominal: Reports: no symptoms Genitourinary: Reports: no symptoms Subjective COVERAGE FOR TOUIE Objective Last 24 Hour Vital Signs Date Time Temp Pulse Resp B/P (MAP) Pulse Ox O2 Delivery O2 Flow Rate FiO2 11/30/19 12:00 98.3 68 19 110/68 (82) 97 11/30/19 09:00 Room Air 11/30/19 08:00 98.0 65 19 106/65 (79) 98 11/30/19 04:00 98.1 61 20 103/61 (75) 97 11/30/19 00:00 98.0 69 20 111/58 (75) 97 11/29/19 21:00 Room Air 11/29/19 20:00 97.8 67 17 108/50 (69) 97 11/29/19 16:00 98.6 71 17 96/55 (69) 97 General Appearance: no apparent distress, alert EENT: PERRL/EOMI, normal ENT inspection, TMs normal, pharynx normal Neck: non-tender, normal alignment, supple, normal inspection, no JVD Rhythm: NSR Cardiovascular: normal peripheral pulses, normal rate Respiratory/Chest: chest wall non-tender, lungs clear, normal breath sounds Abdomen: normal bowel sounds, non tender, soft Extremities: normal range of motion, non-tender, normal inspection, no calf tenderness, no swelling 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
--- NOTE | 2019-11-30 14:31 | Nephrology Progress Note ---
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 - improved with desmporessin #Shock #UTI # infected sacral pressure ulcer #Acute metabolic encephalopathy #Paraplegia #Sacral pressure ulcer #Hypokalemia #Anemia - continue florinef 0.1mg daily -Continue desmopressin nasal - continue salt tabs 1g TID - continue midodrine 10 TID - endocrine eval noted - r/o adrenal insuffiency - antibiotics per ID - monitor lytes - avoid nephrotoxins - daily weights - strict I&Os time spent 40 min- greater than 50% on care coordination and counseling Subjective Subjective UOP 2550 labs reviewed on florinef 0.1mg daily Bp stable on nasal desmopressin on salt tabs Objective Objective Last 24 Hour Vital Signs Date Time Temp Pulse Resp B/P (MAP) Pulse Ox O2 Delivery O2 Flow Rate FiO2 11/30/19 12:00 98.3 68 19 110/68 (82) 97 11/30/19 09:00 Room Air 11/30/19 08:00 98.0 65 19 106/65 (79) 98 11/30/19 04:00 98.1 61 20 103/61 (75) 97 11/30/19 00:00 98.0 69 20 111/58 (75) 97 11/29/19 21:00 Room Air 11/29/19 20:00 97.8 67 17 108/50 (69) 97 11/29/19 16:00 98.6 71 17 96/55 (69) 97 Intake and Output 11/29/19 11/30/19 19:00 07:00 Intake Total 960 ml 380 ml Output Total 1200 ml 950 ml Balance -240 ml -570 ml Intake Oral 960 ml 380 ml Output Urine Total 1200 ml 950 ml # Bowel Movements 1 1 Height (Feet): 5 Height (Inches): 7.00 Weight (Pounds): 114 Sienna Georges M.D. Nov 30, 2019 14:31
--- NOTE | 2019-11-30 14:44 | Infectious Diseases Prog Note ---
Assessment/Plan Assessment/Plan ASSESSMENT AND PLAN: 1. hx sepsis/shock, hx proteus uti, hx esbl e.coli uti, possible aspiration pna/hcap vs cap, sacral wound - ? infected, mrsa and vre colonization fevers, leukocytosis - new acinetobacter uti and vre uti, + urine culture CT abdomen and pelvis without acute abscess, blood cultures negative ? pna on chest x-ray vs atx, ? aspiration pna/hcap - polymyxin and zyvox x 1 day - monitor labs, chest x-ray and temperatures - clinically improved, fevers improved 2. ICU care. 3. Sacral wound -wound mostly clean, management per surgery 4. Ostomy malfunction - per surgery 5. Hypertension. 6. Paraplegia. 7. Anemia. 8. History of decubitus ulcer, rule out infection. Infectious diseases is following. The patient on antibiotics. 9. Hypertension treatment per primary care team. 10. Continue treatment per primary consultants. 11. No known drug allergies. 12. Social history is negative. 13. Family history is noncontributory. 14. MAR was noted. 15. Case discussed with RN. Subjective Constitutional: Denies: fever HEENT: Denies: congestion Respiratory: Denies: shortness of breath Cardiovascular: Denies: chest pain Gastrointestinal/Abdominal: Denies: nausea, vomiting, diarrhea Genitourinary: Reports: other - + donohue Neurologic: Denies: headache Psychiatric: Denies: depression Skin: Denies: rash Hematologic: Denies: bleeding Musculoskeletal: Denies: pain Allergies: Coded Allergies: No Known Allergies (Unverified , 08/15/19) Objective Last 24 Hour Vital Signs Date Time Temp Pulse Resp B/P (MAP) Pulse Ox O2 Delivery O2 Flow Rate FiO2 11/30/19 12:00 98.3 68 19 110/68 (82) 97 11/30/19 09:00 Room Air 11/30/19 08:00 98.0 65 19 106/65 (79) 98 11/30/19 04:00 98.1 61 20 103/61 (75) 97 11/30/19 00:00 98.0 69 20 111/58 (75) 97 11/29/19 21:00 Room Air 11/29/19 20:00 97.8 67 17 108/50 (69) 97 11/29/19 16:00 98.6 71 17 96/55 (69) 97 Height (Feet): 5 Height (Inches): 7.00 Weight (Pounds): 114 General Appearance: no acute distress HEENT: normocephalic, atraumatic, anicteric, mucous membranes moist Respiratory/Chest: lungs clear, normal breath sounds, no accessory muscle use Cardiovascular: normal rate, regular rhythm, no gallop/murmur, no JVD Abdomen: normal bowel sounds, soft, non tender, no organomegaly, non distended Genitourinary: other - + donohue - urine clearer Extremities: no cyanosis Skin: no rash 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 There is some atelectasis at the left lung base as well. Right jugular central venous catheter remains. The heart size is normal. Impression: New/increased bilateral basilar infiltrates, since prior study 10/23/2019 Chest x-ray - 10/27/19 - Procedure: XRAY Chest 1v Indication: Shortness of breath Technique: One view of the chest Comparison: 10/25/2019 Findings: There is atelectasis possibly some focal consolidation at the right lung base. Atelectatic changes previously demonstrated at the left lung base have largely cleared. Right jugular central venous catheter remains. The heart size is normal. Impression: Improving left basilar atelectasis. Otherwise little slip box changer 2 days findings as noted Chest x-ray - 10/29/19 - FINDINGS: Lungs: Persistent subsegmental atelectasis in bilateral lower lungs, not significant changed compared to the prior exam. No new consolidation is seen. Pleural space: Unremarkable. The costophrenic angles are sharp. No visible pneumothorax. Heart: Unremarkable. No cardiomegaly. Mediastinum: Unremarkable. Bones/joints: Unremarkable. Vasculature: Mild atherosclerotic calcifications are noted within the aortic arch. Tubes, lines and devices: Stable positioning of a right IJ central venous catheter with the tip in the SVC. Telemetry leads overlie the thorax. IMPRESSION: Persistent subsegmental atelectasis in bilateral lower lungs, not significantly changed compared to the prior exam. Chest x-rasy - 11/03/19 - Procedure: XRAY Chest 1v Indication: Cough Technique: One view of the chest Comparison: 10/29/2019 Findings: There are increased atelectatic changes at the lung bases. Interim removal of previously demonstrated central venous catheter. The pleural spaces are clear. The heart size is normal. Impression: Increasing bilateral basilar atelectasis Interim central venous catheter removal. Chest x-ray - 11/07/19 - Procedure: XRAY Chest 1v Indication: Shortness of breath Technique: One view of the chest Comparison: 11/03/2019 Findings: Bilateral basilar atelectatic changes appear similar to the previous exam. There may be some patchy left perihilar and bilateral peripheral consolidation. The heart size is normal. Impression: New or increased faint patchy peripheral and left perihilar consolidative opacities, possibly reflecting multifocal pneumonia, since prior study 03/04/2019 Persistent bilateral basilar atelectatic changes Chest x-ray - 11/09/19 - Procedure: XRAY Chest 1v Indication: Cough Technique: One view of the chest Comparison: 11/07/2019 Findings: There is improved aeration of the lung bases, although some atelectasis persists bilaterally. No new infiltrates. The pleural spaces are clear. The heart size is normal. Impression: Improved aeration with decreased basilar atelectasis Chest x-ray - 11/14/19 - Procedure: XRAY Chest 1v Indication: Cough Technique: One view of the chest Comparison: 11/09/2019 Findings: Bilateral basilar atelectasis has increased. No new infiltrates. The pleural spaces remain clear. The heart size is normal. Impression: Increased bilateral basilar atelectasis, since prior study 11/09/2019 Chest x-ray - 11/15/19 - Procedure: XRAY Chest 1v Indication: Cough Technique: One view of the chest Comparison: 11/13/2019 Findings: Again demonstrated is bilateral basilar atelectasis versus scarring. The lungs and pleural spaces are otherwise clear. The heart size is normal. Interim placement right arm PICC. Impression: No acute process Chest x-ray - 11/21/19 - Procedure: XRAY Chest 1v Indication: Shortness of breath Technique: One view of the chest Comparison: 11/15/2019 Findings: Previously demonstrated basilar atelectatic changes have cleared. Lungs and pleural spaces are currently clear. The heart size is normal. There is a right arm PICC again demonstrated Impression: No acute process CT abdomen and pelvis: Impression: Extensive decubitus changes, as described, with evidence of skin thickening, surface ulceration, deep ulceration, and likely prior skin grafting. There is also evidence of extensive bone loss. This may be due to erosive changes, postsurgical changes, or likely combination of both. No findings to suggest abscess Left lower quadrant diverting sigmoid colostomy. Considerable distal stool and evidence of rectal fecal impaction and incontinence, despite this. Rectal wall thickening could indicate stercoral proctitis Splenomegaly Inferior vena cava filter Donohue catheter and empty bladder. Some calcifications are seen surrounding the Donohue balloon Posterior pulmonary dependent atelectatic changes and possible consolidation Other findings as noted, including probable hepatic and renal cysts Chest x-ray - 11/25/19 - FINDINGS: Lungs: There are mild bilateral lower lobe infiltrates consistent with nonspecific pneumonia. Pleural space: Unremarkable. No pneumothorax. Heart: Unremarkable. No cardiomegaly. Mediastinum: Unremarkable. Bones/joints: Unremarkable. Tubes, lines and devices: There is a right-sided PICC line in good position. IMPRESSION: There are mild bilateral lower lobe infiltrates consistent with nonspecific pneumonia. Chest x-ray - 11/27/19 - Procedure: XRAY Chest 1v Procedure: XRAY Chest 1v Reason for study: Shortness of breath. Comparison films: 11/25/2019. FINDINGS: Right PICC line remains in place. Vascularity is normal. There are linear atelectasis in both lung bases. Cardiac and mediastinal silhouette are within normal limits. CP angles are sharp. The bony thorax appear unremarkable. IMPRESSION: Bibasilar linear atelectasis. Microbiology Date/Time Source Procedure Growth Status 11/25/19 09:45 Blood Blood Culture - Preliminary NO GROWTH AFTER 4 DAYS Resulted 11/20/19 23:30 Indwelling Cath Urine Culture - Final Acinetobacter Baumanii - Mdr Enterococcus Faecium - Vre Complete 11/03/19 08:00 Catheter Site Catheter Tip Culture - Final Staphylococcus Sp Coag Neg Complete 11/02/19 13:30 Nasopharynx SARS-CoV-2 RdRp Gene Assay - Final Complete wbc - 8.8 hgb - 8.0 cr - 0.6 Current Medications Medications (Trade) Dose Ordered Sig/Mya Route PRN Reason Start Time Stop Time Status Last Admin Dose Admin Acetaminophen (Tylenol) 650 mg Q4H PRN ORAL Temp >100.5 11/05/19 16:00 12/05/19 15:59 11/25/19 04:15 Acetaminophen/ Hydrocodone Bitart ([place] 5/325) 1 tab Q6H PRN ORAL Severe Pain (Pain Scale 7-10) 11/29/19 10:36 12/06/19 10:35 11/30/19 05:29 Apixaban (Eliquis) 2.5 mg BID ORAL 11/24/19 09:00 02/22/20 08:59 11/30/19 08:54 Bisacodyl (Dulcolax) 10 mg DAILYPRN PRN RECTAL Constipation 11/24/19 07:45 02/22/20 07:44 Chlorhexidine Gluconate (Simran-Hex 2%) 1 applic DAILY@2000 TOPIC 11/13/19 20:00 02/11/20 19:59 11/29/19 20:28 Desmopressin Acetate (Ddavp) 1 spray DAILY NASAL 11/14/19 09:00 02/07/20 17:59 11/30/19 10:03 Dextrose (Dextrose 50%) 25 ml Q30M PRN IV Hypoglycemia 11/05/19 13:30 01/21/20 17:29 Dextrose (Dextrose 50%) 50 ml Q30M PRN IV Hypoglycemia 11/05/19 13:30 01/21/20 17:29 Famotidine (Pepcid) 20 mg DAILY ORAL 11/06/19 09:00 01/28/20 09:29 11/30/19 08:53 Ferrous Sulfate (Feosol) 325 mg DAILY ORAL 11/06/19 09:00 01/22/20 08:59 11/30/19 08:53 Fludrocortisone Acetate (Florinef) 0.1 mg DAILY ORAL 11/15/19 09:00 12/15/19 08:59 11/30/19 08:53 Gabapentin (Neurontin) 400 mg Q8HR ORAL 11/05/19 14:00 12/03/19 21:59 11/30/19 13:48 Linezolid (Zyvox) 600 mg Q12HR ORAL 11/29/19 21:00 11/30/19 23:59 11/30/19 08:53 Magnesium Hydroxide (Mom) 30 ml HSPRN PRN ORAL Constipation 11/13/19 11:15 12/13/19 11:14 Midodrine (Pro-Amatine) 10 mg EVERY 8 HOURS ORAL 11/05/19 14:00 01/21/20 17:59 11/30/19 13:48 Naloxone HCl (Narcan) 0.2 mg Q2M PRN IVP RESPRITORY DEPRESSION RR<8 11/24/19 10:15 02/22/20 10:14 Polymyxin B Sulfate 107405 units/Dextrose 550 ml @ 550 mls/hr EVERY 12 HOURS IV 11/24/19 21:00 12/01/19 20:59 11/30/19 10:07 Senna/Docusate Sodium (Haley-Colace) 1 tab TWICE A DAY ORAL 11/24/19 09:00 12/24/19 08:59 11/30/19 08:53 Sodium Chloride (NaCl) 1 gm THREE TIMES A DAY ORAL 11/09/19 13:00 12/09/19 12:59 11/30/19 13:48 Zinc Sulfate (Zinc Sulfate) 220 mg DAILY ORAL 11/06/19 09:00 01/22/20 08:59 11/30/19 08:53 Sharif Painting MD Nov 30, 2019 14:44
[2019-11-30 16:00] VITALS: BP 115/71
[2019-11-30 20:00] VITALS: BP 101/51
[2019-11-30] MEDS: Dyna-Hex 2% Top Sol 2oz TOPIC SCH (21:25)
[2019-12-01] VITALS: BP 105/55
[2019-12-01 04:00] VITALS: BP 107/58
[2019-12-01] MEDS: HYDROcodone/Acetamin 5/325 tab ORAL PRN ×2 (04:47→14:40)
[2019-12-01] MEDS: Midodrine 10mg tab ORAL SCH ×3 (05:24→21:11)
[2019-12-01 08:00] VITALS: BP 101/54
[2019-12-01] MEDS: Zinc Sulfate 220mg ORAL SCH (08:21)
[2019-12-01] MEDS: Sodium Chloride 1gm Tab ORAL SCH ×3 (08:22→17:14)
[2019-12-01] MEDS: Eliquis 2.5mg tablet ORAL SCH ×2 (08:22→17:14)
[2019-12-01] MEDS: Docusate Sod/Senna tab ORAL SCH ×2 (08:22→17:14)
[2019-12-01] MEDS: Dakin's 0.125% Soln (Quarter Strength) 16oz TOPIC SCH (08:23)
[2019-12-01] MEDS: Polymyxin B Sulfate 500,000 units in D5W 550ml IV SCH (08:24)
[2019-12-01] MEDS: Desmopressin Nasal 5ml NASAL SCH (09:16)
--- NOTE | 2019-12-01 10:38 | General Progress Note ---
Subjective Date patient seen: Dec 01, 2019 Time patient seen: 09:30 ROS Limited/Unobtainable: Yes Constitutional: Denies: fever, malaise, weakness HEENT: Denies: eye pain, throat swelling, mouth pain Cardiovascular: Denies: chest pain, edema, irregular heart rate Respiratory: Denies: cough, orthopnea Gastrointestinal/Abdominal: Denies: abdomen distended, abdominal pain, black stools Genitourinary: Denies: burning, discharge Neurologic/Psychiatric: Denies: emotional problems, headache Endocrine: Denies: excessive sweating, flushing, intolerance to cold Allergies: Coded Allergies: No Known Allergies (Unverified , 08/15/19) Subjective No complaints. Objective Last 24 Hour Vital Signs Date Time Temp Pulse Resp B/P (MAP) Pulse Ox O2 Delivery O2 Flow Rate FiO2 12/01/19 09:00 Room Air 12/01/19 08:00 98.4 72 18 101/54 (70) 100 12/01/19 05:17 98.6 12/01/19 04:00 98.2 65 19 107/58 (74) 100 12/01/19 00:00 98.6 68 19 105/55 (72) 95 11/30/19 21:00 Room Air 11/30/19 20:00 98.1 77 19 101/51 (68) 96 11/30/19 19:15 98.5 11/30/19 16:00 98.5 72 19 115/71 (86) 97 11/30/19 12:00 98.3 68 19 110/68 (82) 97 Intake and Output 11/30/19 12/01/19 19:00 07:00 Intake Total 910 ml Output Total 975 ml 750 ml Balance -65 ml -750 ml Intake Oral 360 ml IV Total 550 ml Output Urine Total 975 ml 750 ml # Voids 1 # Bowel Movements 1 1 Height (Feet): 5 Height (Inches): 7.00 Weight (Pounds): 114 General Appearance: no apparent distress, alert EENT: normal ENT inspection Neck: normal alignment, supple, normal inspection Cardiovascular: normal rate, regular rhythm, no gallop/murmur, no JVD Respiratory/Chest: lungs clear, normal breath sounds, no respiratory distress Abdomen: non tender, no organomegaly Extremities: normal inspection Edema: no edema noted Arm (L), no edema noted Arm (R), no edema noted Leg (L), no edema noted Leg (R), no edema noted Pedal (L), no edema noted Pedal (R), no edema noted Generalized Neurologic: oriented x 3, responsive, normal mood/affect Assessment/Plan Problem List: (1) Septic shock ICD Codes: A41.9 - Sepsis, unspecified organism; R65.21 - Severe sepsis with septic shock SNOMED: 81807178 (2) Anemia ICD Codes: D64.9 - Anemia, unspecified SNOMED: 719802535 (3) Encephalopathy ICD Codes: G93.40 - Encephalopathy, unspecified SNOMED: 87186892 (4) Drug (multiple) resistant infection SNOMED: 79870355, 98968173455168 (5) Urinary tract infection in male ICD Codes: N39.0 - Urinary tract infection, site not specified SNOMED: 59558772, 278256747 (6) Hypokalemia ICD Codes: E87.6 - Hypokalemia SNOMED: 31053559 (7) Femur fracture ICD Codes: S72.90XA - Unspecified fracture of unspecified femur, initial encounter for closed fracture SNOMED: 27352137 (8) Hyponatremia ICD Codes: E87.1 - Hypo-osmolality and hyponatremia SNOMED: 86956354 (9) Sepsis ICD Codes: A41.9 - Sepsis, unspecified organism SNOMED: 61156739 (10) UTI (urinary tract infection) ICD Codes: N39.0 - Urinary tract infection, site not specified SNOMED: 91202413 (11) Hypotension ICD Codes: I95.9 - Hypotension, unspecified SNOMED: 68716477 (12) Decubital ulcer ICD Codes: L89.90 - Pressure ulcer of unspecified site, unspecified stage SNOMED: 148513436 (13) SEAN (acute kidney injury) ICD Codes: N17.9 - Acute kidney failure, unspecified SNOMED: 3667204, 52965455 Assessment/Plan: 59 year old man who presents from [facility] with weakness, encephalopathy, concern for septic shock, possible from UTI. #Acute Left Popliteal DVT -Pt has IVC filter -D/w Heme, cont eliquis 2.5 BID -monitor for signs of bleeding -d/c HSQ ppx given pt on eliquis #Fever #Septic shock- resolved #Proteus UTI #Actinobacter UTI, GPC UTI #Acute metabolic encephalopathy - resolved #Paraplegia #Sacral pressure ulcer, present on admit - Periods of hypotension and fever through hospitalization, VSS now - Covid 19 - negative - S/p vancomycin, cefepime, and flagyl - UCx on 11/19 positive for actinobacter and GPC - Spoke with surgery, reviewed CT findings, sacral pressure ulcer does not appear to be infected, ct findings consistent w/sacral ulcer - Cont Local wound care and offloading - Fever 101.7 on 11/20, repeat BCx ordered however pt refused labs - 10/20 CXR w/no acute process - fever 100.5 on 11/24, repeat BCx and labs ordered, d/w RN and ID, OK to draw from PICC line --> CBC with no leukocytosis - 11/24 BCx NGTD, cont to follow for final cx - Appreciate ID consult --> Zyvox and polymyxin #Sacral Decubitus Ulcer -CT abd/pel on 11/22/19 w/ subcutaneous gas -d/w with surgery, reviewed CT findings, sacral pressure ulcer does not appear to be infected, ct findings consistent w/sacral ulcer -wound care daily -appreciate wound care recs -abx per ID as above #Stool Impaction - improved -seen on CT abd on 11/22/2019 -s/p disimpaction by general sx with symptomatic improvement -cont Docusate-senna daily -PRN dulcolax #Fungal UTI - resolved, s/p treatment - Patient is high risk for fungemia - Diflucan 11/16 - 11/23 -Appreciate ID Consult #Sinus Bradycardia - resolved -continue telemetry -EP following 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 -Evaluated by endocrine for adrenal insufficiency -AM cortisol normal however patient continues to have labile BP and hyponatremia - Appreciate Nephrology consult - Appreciate Endocrine consult - Will continue Florinef, Salt Tab, and DDAVP - Continue Midodrine given labile BP - CT Brain without masses noted, will defer MRI - Refusing labs periodically #Hyponatremia - resolved #Hypokalemia - resolved -Intermittently refusing labs -Replete when necessary -On DDAVP intranasal #Anemia, acute on chronic - stable -s/p 2 units RBC 10/28 -Hematology following, no signs of overt bleeding - Continue Iron tab - Keep Hb >7 #Chronic Lower extremity pain Likely 2' contractures and prior accident - Gabapentin, [place], Baclofen - pain management consulted, recs appreciated FEN: Lina 2.5 BID Jevity TF #Dispo - Awaiting SNF bed placement. Appreciate referrals placed by CM. I spent 33 minutes on this patient's care today, and 21 mins was dedicated to counseling and care coordination. New to service and discussed plan of care with all consultants. Time of note doesn't reflect time of encounter. Art Hensley M.D. Dec 01, 2019 10:38
--- NOTE | 2019-12-01 10:51 | Pulmonology Progress Note ---
Subjective ROS Limited/Unobtainable: Yes Interval Events: no fever or leucocytosis Constitutional: Denies: fever HEENT: Repors: no symptoms Respiratory: Reports: no symptoms Cardiovascular: Reports: no symptoms Gastrointestinal/Abdominal: Denies: nausea, vomiting, diarrhea Genitourinary: Reports: no symptoms Psychiatric: Denies: depression Skin: Denies: rash Musculoskeletal: Denies: pain Allergies: Coded Allergies: No Known Allergies (Unverified , 08/15/19) All Systems: reviewed and negative except above Objective Last 24 Hour Vital Signs Date Time Temp Pulse Resp B/P (MAP) Pulse Ox O2 Delivery O2 Flow Rate FiO2 12/01/19 09:00 Room Air 12/01/19 08:00 98.4 72 18 101/54 (70) 100 12/01/19 05:17 98.6 12/01/19 04:00 98.2 65 19 107/58 (74) 100 12/01/19 00:00 98.6 68 19 105/55 (72) 95 11/30/19 21:00 Room Air 11/30/19 20:00 98.1 77 19 101/51 (68) 96 11/30/19 19:15 98.5 11/30/19 16:00 98.5 72 19 115/71 (86) 97 11/30/19 12:00 98.3 68 19 110/68 (82) 97 Intake and Output 11/30/19 12/01/19 19:00 07:00 Intake Total 910 ml Output Total 975 ml 750 ml Balance -65 ml -750 ml Intake Oral 360 ml IV Total 550 ml Output Urine Total 975 ml 750 ml # Voids 1 # Bowel Movements 1 1 General Appearance: no acute distress HEENT: normocephalic Respiratory: chest wall non-tender, lungs clear Cardiovascular: normal peripheral pulses, regular rhythm Abdomen: normal bowel sounds Extremities: no cyanosis Current Medications Medications (Trade) Dose Ordered Sig/Mya Route PRN Reason Start Time Stop Time Status Last Admin Dose Admin Acetaminophen (Tylenol) 650 mg Q4H PRN ORAL Temp >100.5 11/05/19 16:00 12/05/19 15:59 11/25/19 04:15 Acetaminophen/ Hydrocodone Bitart ([place] 5/325) 1 tab Q6H PRN ORAL Severe Pain (Pain Scale 7-10) 11/29/19 10:36 9/23/20 10:35 12/01/19 04:47 Apixaban (Eliquis) 2.5 mg BID ORAL 11/24/19 09:00 02/22/20 08:59 12/01/19 08:22 Bisacodyl (Dulcolax) 10 mg DAILYPRN PRN RECTAL Constipation 11/24/19 07:45 02/22/20 07:44 Chlorhexidine Gluconate (Simran-Hex 2%) 1 applic DAILY@2000 TOPIC 11/13/19 20:00 02/11/20 19:59 11/30/19 21:25 Desmopressin Acetate (Ddavp) 1 spray DAILY NASAL 11/14/19 09:00 02/07/20 17:59 12/01/19 09:16 Dextrose (Dextrose 50%) 25 ml Q30M PRN IV Hypoglycemia 11/05/19 13:30 01/21/20 17:29 Dextrose (Dextrose 50%) 50 ml Q30M PRN IV Hypoglycemia 11/05/19 13:30 01/21/20 17:29 Famotidine (Pepcid) 20 mg DAILY ORAL 11/06/19 09:00 01/28/20 09:29 12/01/19 08:22 Ferrous Sulfate (Feosol) 325 mg DAILY ORAL 11/06/19 09:00 01/22/20 08:59 12/01/19 08:23 Fludrocortisone Acetate (Florinef) 0.1 mg DAILY ORAL 11/15/19 09:00 12/15/19 08:59 12/01/19 08:22 Gabapentin (Neurontin) 400 mg Q8HR ORAL 11/05/19 14:00 12/03/19 21:59 12/01/19 05:24 Magnesium Hydroxide (Mom) 30 ml HSPRN PRN ORAL Constipation 11/13/19 11:15 12/13/19 11:14 Midodrine (Pro-Amatine) 10 mg EVERY 8 HOURS ORAL 11/05/19 14:00 01/21/20 17:59 12/01/19 05:24 Naloxone HCl (Narcan) 0.2 mg Q2M PRN IVP RESPRITORY DEPRESSION RR<8 11/24/19 10:15 02/22/20 10:14 Polymyxin B Sulfate 491419 units/Dextrose 550 ml @ 550 mls/hr EVERY 12 HOURS IV 11/24/19 21:00 12/01/19 20:59 12/01/19 08:24 Senna/Docusate Sodium (Haley-Colace) 1 tab TWICE A DAY ORAL 11/24/19 09:00 12/24/19 08:59 12/01/19 08:22 Sodium Hypochlorite ([place] Quarter Strength) 1 applic DAILY TOPIC 12/01/19 09:00 12/31/19 08:59 12/01/19 08:23 Sodium Chloride (NaCl) 1 gm THREE TIMES A DAY ORAL 11/09/19 13:00 12/09/19 12:59 12/01/19 08:22 Zinc Sulfate (Zinc Sulfate) 220 mg DAILY ORAL 11/06/19 09:00 01/22/20 08:59 12/01/19 08:21 Assessment/Plan Assessment/Plan IMPRESSION: 1. Septic shock. resolved 2. Complicated UTI with history of previous ESBL infection. 3. Paraplegia. 4. Sacral decubitus. 5. assisted resident. DISCUSSION: DVT and GI prophylaxes. Continue Oxygen prn, doing well on room air at this time. DC planning Haily Monzon Omar Syed MD Dec 01, 2019 10:51
--- NOTE | 2019-12-01 11:53 | Surgery Progress Note ---
Surgery Progress Note Subjective Additional Comments no acute events ostomy noted wound still saturated Objective Last 24 Hour Vital Signs Date Time Temp Pulse Resp B/P (MAP) Pulse Ox O2 Delivery O2 Flow Rate FiO2 12/01/19 09:00 Room Air 12/01/19 08:00 98.4 72 18 101/54 (70) 100 12/01/19 05:17 98.6 12/01/19 04:00 98.2 65 19 107/58 (74) 100 12/01/19 00:00 98.6 68 19 105/55 (72) 95 11/30/19 21:00 Room Air 11/30/19 20:00 98.1 77 19 101/51 (68) 96 11/30/19 19:15 98.5 11/30/19 16:00 98.5 72 19 115/71 (86) 97 11/30/19 12:00 98.3 68 19 110/68 (82) 97 I&O Intake and Output 11/30/19 12/01/19 19:00 07:00 Intake Total 910 ml Output Total 975 ml 750 ml Balance -65 ml -750 ml Intake Oral 360 ml IV Total 550 ml Output Urine Total 975 ml 750 ml # Voids 1 # Bowel Movements 1 1 Dressing: saturated Cardiovascular: RSR Respiratory: decreased breath sounds Abdomen: soft, non-tender, present bowel sounds, other Extremities: no tenderness, no cyanosis Plan Problems: (1) Abdominal distension Assessment & Plan: abd distention soft non tender ostomy viable and reduced KUB ordered pending results improved comfortable no complaints okay for diet s tolerated d/c planning much improved There is an inferior vena cava filter in place. Bowel gas pattern is unremarkable. Considerable stool is seen in the transverse and distal colon. There is extensive pelvic deformity, with loss of the left femoral head, chronic dislocation of the left femur, and extensive pelvic deformity, particularly on the left. [place] project over the upper pelvis Impression: Possible constipation. pending placement Nonobstructed bowel gas pattern. Moderate fecal retention of the ascending colon and sigmoid colon. The degree of stool burden has increased from October 25, 2019. IVC filter, incidentally noted. Partial subluxation of the right hip. Osteotomy of the proximal left femur with deformity of the bilateral pubic rami and left acetabulum, unchanged. 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 [place] Shaped, Full Thickness Sacral Pressure Injury which extends into L ischium. (L)15.4cm x (W)18cm x (D)2.4cm, Undermining clockwise 10-2 by 7.7cm @11o'clock. Base of wound is moist,pink with scattered slough at base of wound. Bone is palpable at the Base. No odor or exudate noted. Scattered partial thickness wounds and Serous filled blisters noted to R trochanteric /R Hip areas. Historical scar noted to L groin, L Hip L Buttocks. Bony protrusion noted at L Hip. Full thickness Pressure Injury R Ischium(L)5.4cm x(W)6.9cm x (D)1.8cm,Undermining clockwise 1-4 by 2.7cm @2o'clock, Tunneling@7o'clock 2.9cm. Base of wound is moist pink with scattered slough. Scattered slough noted along borders. NO odor or exudate noted. Stable dry eschar noted to medial R knee 0.7cm x (W)0.4cm. Periwound is erythematous and indurated. No elevation in skin temp noted. L heel has shaved appearance secondary to Hx of Pressure Injuries. Base of heel is pale pink. Bone is palpable. Small area of slough noted within compromised area(L)0.6cm x (W)0.8cm. L Heel Also has shaved appearance with hypertrophic scarring. Base of compromised area is pale pink, Bone is palpable, with scattered loose, dry and scaly skin. Patient's wound remains very large extensive and requires significant amount of care. Continued care of the wounds have been provided though patient is having continence through the anus at this time again despite diversion. Wounds remain saturated times and great nursing care is being provided unfortunately i nevitable decline is still significantly potential given his overall condition. Tx.Plan: Cleanse Sacral Wound and R Ischial wounds with Dakin's 0.125% gian. Loosely pack wounds with Hydrogel impregnated Kerlix. Apply Moisture Barrier Paste periwound. Cover with ABD Pads secure with Tegaderm drsg.Daily and prn. Apply Triad Paste to R Hip/R trochanteric areas.Cover with Optifoam drsg. Change every 7 days and prn. Apply Betadine to Medial R Knee. Cover with Optifoam drsg. Change every 7 days and prn. Apply Betadine to R and L Heels. Cover each Heel with Optifoam drsgs. Change every 7 days and prn. Cover Bony Prominences as needed with Optifoam drsgs. Reposition at least every 2 [address] tolerated[address] Pillow between knees. Off-load heels with pillow. APM/SUMI Mattress overlay DAILY ESTIMATED NEEDS: Needs based on Advanced wounds, wt loss/ 40.18kg 35-40 kcals/kg 0517-9919 total kcals 1.5-2.0 g protein/kg 60-80 g total protein 25-35ml/kcal mL/kg 3127-0961 total fluid mLs NUTRITION DIAGNOSIS: Increased kcal/prot/micronutrients needs R/T wound healing and underweight status as evidenced by pt admitted w/ multiple advanced wounds, refer to WC eval, pt now w/ further 3% unfavorable wt loss, currently BMI underweight per guidelines, @62% of [place] Body Weight. 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 There is distention of the rectum with feces, rectal diameter 70 mm. There is some thickening of the rectal wall. The appendix is not definitely visualized, but no findings to suggest acute appendicitis are evident. There is considerable stool throughout the colon. There appears to be rectal incontinence of stool despite the diverting colostomy. Cornelius Salgado Dec 01, 2019 11:53
[2019-12-01 12:00] VITALS: BP 98/58
--- NOTE | 2019-12-01 13:09 | Cardiology Progress Note ---
Assessment/Plan Status: stable Assessment/Plan Assessment/Plan Assessment/Plan 1. S/P Septic shock. on Midodrine, iv fluids and antibiotic 2. Bradycardia. Resolved. 3. Paraplegia. 4. Urinary tract infection, 5. Decubitus ulcers with sacral decubitus. 6. S/P Ileostomy/ 7. Polyuria, DI. On NS, Salt tablets Subjective Cardiovascular: Reports: no symptoms Respiratory: Reports: no symptoms Gastrointestinal/Abdominal: Reports: no symptoms Genitourinary: Reports: no symptoms Subjective COVERAGE FOR TOUIE Objective Last 24 Hour Vital Signs Date Time Temp Pulse Resp B/P (MAP) Pulse Ox O2 Delivery O2 Flow Rate FiO2 12/01/19 09:00 Room Air 12/01/19 08:00 98.4 72 18 101/54 (70) 100 12/01/19 05:17 98.6 12/01/19 04:00 98.2 65 19 107/58 (74) 100 12/01/19 00:00 98.6 68 19 105/55 (72) 95 11/30/19 21:00 Room Air 11/30/19 20:00 98.1 77 19 101/51 (68) 96 11/30/19 19:15 98.5 11/30/19 16:00 98.5 72 19 115/71 (86) 97 General Appearance: no apparent distress, alert EENT: normal ENT inspection, TMs normal, pharynx normal Neck: normal alignment, supple, no JVD Rhythm: NSR Cardiovascular: normal peripheral pulses, regular rhythm, no gallop/murmur Respiratory/Chest: chest wall non-tender, normal breath sounds, no respiratory distress Abdomen: normal bowel sounds, no mass Extremities: normal range of motion, no calf tenderness 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
--- NOTE | 2019-12-01 14:57 | General Progress Note ---
Subjective Date patient seen: Dec 01, 2019 Time patient seen: 01:30 - pm Allergies: Coded Allergies: No Known Allergies (Unverified , 08/15/19) Subjective REVIEW OF SYSTEMS: Denies rash, fever, chills, sweating, dizziness, drowsiness, blurred vision, sore throat, or change in weight. No shortness of breath or chest pain. No nausea, vomiting, diarrhea, blood in stool or urine. HISTORY OF PRESENT ILLNESS: This is a 59-year-old male who has been seen on the Med/Surg floor of [facility]. Patient showing no signs of pain or distress. Has used 3 [place] in the last 24hrs. No new complaints at this time. Objective Last 24 Hour Vital Signs Date Time Temp Pulse Resp B/P (MAP) Pulse Ox O2 Delivery O2 Flow Rate FiO2 12/01/19 12:00 97.5 61 18 98/58 (71) 100 12/01/19 09:00 Room Air 12/01/19 08:00 98.4 72 18 101/54 (70) 100 12/01/19 05:17 98.6 12/01/19 04:00 98.2 65 19 107/58 (74) 100 12/01/19 00:00 98.6 68 19 105/55 (72) 95 11/30/19 21:00 Room Air 11/30/19 20:00 98.1 77 19 101/51 (68) 96 11/30/19 19:15 98.5 11/30/19 16:00 98.5 72 19 115/71 (86) 97 Intake and Output 11/30/19 12/01/19 19:00 07:00 Intake Total 910 ml Output Total 975 ml 750 ml Balance -65 ml -750 ml Intake Oral 360 ml IV Total 550 ml Output Urine Total 975 ml 750 ml # Voids 1 # Bowel Movements 1 1 Height (Feet): 5 Height (Inches): 7.00 Weight (Pounds): 114 Objective PHYSICAL EXAMINATION: GENERAL: Alert, awake, and oriented. LUNGS: Decreased breath sounds bilaterally. HEART: S1, S2 regular. ABDOMEN: Colostomy bag noted. EXTREMITIES: Upper and lower extremity range of motion is decreased due to the patient's condition. Contracture is noted. Sensory is reduced. Reflexes are not obtainable. No adenopathy. Assessment/Plan Assessment/Plan: (1) Sacral decubitus ulcer (2) Paraplegia (3) Neuropathic pain Patient to be continued on [place] and Neurontin D/w Dr. Celaya and he concurred. Danny Raymundo Dec 01, 2019 14:57
[2019-12-01 16:00] VITALS: BP 101/69
[2019-12-01 20:00] VITALS: BP 94/59
[2019-12-01] MEDS: Dyna-Hex 2% Top Sol 2oz TOPIC SCH (21:11)
[2019-12-02] VITALS: BP 96/52
[2019-12-02 04:00] VITALS: BP 98/54
[2019-12-02] MEDS: Midodrine 10mg tab ORAL SCH ×3 (05:40→21:24)
[2019-12-02 08:00] VITALS: BP 95/63
[2019-12-02] MEDS: Sodium Chloride 1gm Tab ORAL SCH ×3 (08:57→17:12)
[2019-12-02] MEDS: Docusate Sod/Senna tab ORAL SCH ×2 (08:57→17:12)
[2019-12-02] MEDS: Zinc Sulfate 220mg ORAL SCH (08:57)
[2019-12-02] MEDS: Eliquis 2.5mg tablet ORAL SCH ×2 (08:57→17:12)
[2019-12-02] MEDS: HYDROcodone/Acetamin 5/325 tab ORAL PRN ×2 (08:58→17:14)
[2019-12-02] MEDS: Desmopressin Nasal 5ml NASAL SCH (08:58)
[2019-12-02] MEDS: Dakin's 0.125% Soln (Quarter Strength) 16oz TOPIC SCH (09:02)
--- NOTE | 2019-12-02 10:58 | Cardiology Progress Note ---
Assessment/Plan Status: stable Assessment/Plan Assessment/Plan Assessment/Plan 1. S/P Septic shock. on Midodrine, iv fluids and antibiotic 2. Bradycardia. Resolved. 3. Paraplegia. 4. Urinary tract infection, 5. Decubitus ulcers with sacral decubitus. 6. S/P Ileostomy/ 7. Polyuria, DI. On NS, Salt tablets Subjective Cardiovascular: Reports: no symptoms Respiratory: Reports: no symptoms Gastrointestinal/Abdominal: Reports: no symptoms Genitourinary: Reports: no symptoms Subjective COVERAGE FOR TOUIE Objective Last 24 Hour Vital Signs Date Time Temp Pulse Resp B/P (MAP) Pulse Ox O2 Delivery O2 Flow Rate FiO2 12/02/19 09:00 Room Air 12/02/19 08:00 98.6 68 19 95/63 (74) 96 12/02/19 04:00 99.1 81 20 98/54 (69) 95 12/02/19 00:00 99.1 76 20 96/52 (67) 96 12/01/19 20:33 Room Air 12/01/19 20:00 99.5 78 20 94/59 (71) 96 12/01/19 16:00 99.0 77 18 101/69 (80) 98 12/01/19 12:00 97.5 61 18 98/58 (71) 100 General Appearance: no apparent distress, alert EENT: PERRL/EOMI, normal ENT inspection, TMs normal, pharynx normal Neck: non-tender, normal alignment, supple, normal inspection, no JVD Rhythm: NSR Cardiovascular: normal peripheral pulses, normal rate, regular rhythm Respiratory/Chest: chest wall non-tender, lungs clear, normal breath sounds, no respiratory distress, no accessory muscle use Abdomen: normal bowel sounds, non tender, soft Extremities: normal range of motion, non-tender, normal inspection, no calf tenderness, no swelling 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
--- NOTE | 2019-12-02 11:03 | General Progress Note ---
Subjective Date patient seen: Dec 02, 2019 Time patient seen: 10:59 ROS Limited/Unobtainable: Yes Constitutional: Denies: fever, malaise, weakness HEENT: Denies: tearing, double vision, ear pain Cardiovascular: Denies: irregular heart rate, lightheadedness Respiratory: Denies: orthopnea, shortness of breath, SOB at rest, sputum, stridor Gastrointestinal/Abdominal: Denies: abdomen distended, black stools, tarry stools, blood in stool, constipated Genitourinary: Denies: frequency, flank pain, hematuria, incontinence, pain Neurologic/Psychiatric: Denies: depressed, emotional problems, headache, numbness, paresthesia Endocrine: Denies: flushing, intolerance to cold, intolerance to heat, increased hunger Hematologic/Lymphatic: Denies: anemia Allergies: Coded Allergies: No Known Allergies (Unverified , 08/15/19) Subjective No complaints. Objective Last 24 Hour Vital Signs Date Time Temp Pulse Resp B/P (MAP) Pulse Ox O2 Delivery O2 Flow Rate FiO2 12/02/19 09:00 Room Air 12/02/19 08:00 98.6 68 19 95/63 (74) 96 12/02/19 04:00 99.1 81 20 98/54 (69) 95 12/02/19 00:00 99.1 76 20 96/52 (67) 96 12/01/19 20:33 Room Air 12/01/19 20:00 99.5 78 20 94/59 (71) 96 12/01/19 16:00 99.0 77 18 101/69 (80) 98 12/01/19 12:00 97.5 61 18 98/58 (71) 100 l Intake and Output 12/01/19 12/02/19 19:00 07:00 Intake Total 840 ml Output Total 1500 ml 500 ml Balance -660 ml -500 ml Intake Oral 840 ml Output Urine Total 1500 ml 500 ml # Voids 1 # Bowel Movements 1 2 Height (Feet): 5 Height (Inches): 7.00 Weight (Pounds): 114 General Appearance: no apparent distress, alert, lethargic EENT: normal ENT inspection Neck: normal alignment, supple, normal inspection Cardiovascular: normal peripheral pulses, normal rate, regular rhythm, no gallop/murmur Respiratory/Chest: chest wall non-tender, lungs clear, normal breath sounds, no respiratory distress Abdomen: normal bowel sounds, non tender, soft, no organomegaly, no mass Extremities: non-tender, normal inspection Edema: no edema noted Arm (L), no edema noted Arm (R), no edema noted Leg (L), no edema noted Leg (R), no edema noted Pedal (L), no edema noted Pedal (R), no edema noted Generalized Neurologic: alert, oriented x 3, responsive, normal mood/affect Skin: normal pigmentation, warm/dry, no diaphoresis Assessment/Plan Problem List: (1) Septic shock ICD Codes: A41.9 - Sepsis, unspecified organism; R65.21 - Severe sepsis with septic shock SNOMED: 23961091 (2) Anemia ICD Codes: D64.9 - Anemia, unspecified SNOMED: 256753066 (3) Encephalopathy ICD Codes: G93.40 - Encephalopathy, unspecified SNOMED: 85772893 (4) Drug (multiple) resistant infection SNOMED: 99196378, 15138767386742 (5) Urinary tract infection in male ICD Codes: N39.0 - Urinary tract infection, site not specified SNOMED: 20014626, 586063907 (6) Hypokalemia ICD Codes: E87.6 - Hypokalemia SNOMED: 43476735 (7) Femur fracture ICD Codes: S72.90XA - Unspecified fracture of unspecified femur, initial encounter for closed fracture SNOMED: 88530738 (8) Hyponatremia ICD Codes: E87.1 - Hypo-osmolality and hyponatremia SNOMED: 53084555 (9) Sepsis ICD Codes: A41.9 - Sepsis, unspecified organism SNOMED: 13071717 (10) UTI (urinary tract infection) ICD Codes: N39.0 - Urinary tract infection, site not specified SNOMED: 15068070 (11) Hypotension ICD Codes: I95.9 - Hypotension, unspecified SNOMED: 91320615 (12) Decubital ulcer ICD Codes: L89.90 - Pressure ulcer of unspecified site, unspecified stage SNOMED: 237654628 (13) SEAN (acute kidney injury) ICD Codes: N17.9 - Acute kidney failure, unspecified SNOMED: 2570476, 35610756 Status: stable Assessment/Plan: 59 year old man who presents from LVT with weakness, encephalopathy, concern for septic shock, possible from UTI. #Acute Left Popliteal DVT -Pt has IVC filter -D/w Heme, cont eliquis 2.5 BID -monitor for signs of bleeding -d/c HSQ ppx given pt on eliquis #Fever #Septic shock- resolved #Proteus UTI #Actinobacter UTI, GPC UTI #Acute metabolic encephalopathy - resolved #Paraplegia #Sacral pressure ulcer, present on admit - Periods of hypotension and fever through hospitalization, VSS now - Covid 19 - negative - S/p vancomycin, cefepime, and flagyl - UCx on 11/19 positive for actinobacter and GPC - Spoke with surgery, reviewed CT findings, sacral pressure ulcer does not appear to be infected, ct findings consistent w/sacral ulcer - Cont Local wound care and offloading - Fever 101.7 on 11/20, repeat BCx ordered however pt refused labs - 10/20 CXR w/no acute process - fever 100.5 on 11/24, repeat BCx and labs ordered, d/w RN and ID, OK to draw from PICC line --> CBC with no leukocytosis - 11/24 BCx NGTD, cont to follow for final cx - Appreciate ID consult --> Zyvox and polymyxin #Sacral Decubitus Ulcer -CT abd/pel on 11/22/19 w/ subcutaneous gas -d/w with surgery, reviewed CT findings, sacral pressure ulcer does not appear to be infected, ct findings consistent w/sacral ulcer -wound care daily -appreciate wound care recs -abx per ID as above #Stool Impaction - improved -seen on CT abd on 11/22/2019 -s/p disimpaction by general sx with symptomatic improvement -cont Docusate-senna daily -PRN dulcolax #Fungal UTI - resolved, s/p treatment - Patient is high risk for fungemia - Diflucan 11/16 - 11/23 -Appreciate ID Consult #Sinus Bradycardia - resolved -continue telemetry -EP following 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 -Evaluated by endocrine for adrenal insufficiency -AM cortisol normal however patient continues to have labile BP and hyponatremia - Appreciate Nephrology consult - Appreciate Endocrine consult - Will continue Florinef, Salt Tab, and DDAVP - Continue Midodrine given labile BP - CT Brain without masses noted, will defer MRI - Refusing labs periodically #Hyponatremia - resolved #Hypokalemia - resolved -Intermittently refusing labs -Replete when necessary -On DDAVP intranasal #Anemia, acute on chronic - stable -s/p 2 units RBC 10/28 -Hematology following, no signs of overt bleeding - Continue Iron tab - Keep Hb >7 #Chronic Lower extremity pain Likely 2' contractures and prior accident - Gabapentin, Jayess, Baclofen - pain management consulted, recs appreciated FEN: Arelyquis 2.5 BID Jevity TF #Dispo - Awaiting SNF bed placement. Appreciate referrals placed by CM. I spent 34 minutes on this patient's care today, and 21 mins was dedicated to counseling and care coordination. New to service and discussed plan of care with all consultants. Time of note doesn't reflect time of encounter. Art Hensley M.D. Dec 02, 2019 11:03
[2019-12-02 11:55] VITALS: BP 99/67
--- NOTE | 2019-12-02 11:56 | Pulmonology Progress Note ---
Subjective ROS Limited/Unobtainable: Yes Interval Events: no fever or leucocytosis Constitutional: Denies: fever HEENT: Repors: no symptoms Respiratory: Reports: no symptoms Cardiovascular: Reports: no symptoms Gastrointestinal/Abdominal: Denies: nausea, vomiting, diarrhea Genitourinary: Reports: no symptoms Psychiatric: Denies: depression Skin: Denies: rash Musculoskeletal: Denies: pain Allergies: Coded Allergies: No Known Allergies (Unverified , 08/15/19) All Systems: reviewed and negative except above Objective Last 24 Hour Vital Signs Date Time Temp Pulse Resp B/P (MAP) Pulse Ox O2 Delivery O2 Flow Rate FiO2 12/02/19 09:00 Room Air 12/02/19 08:00 98.6 68 19 95/63 (74) 96 12/02/19 04:00 99.1 81 20 98/54 (69) 95 12/02/19 00:00 99.1 76 20 96/52 (67) 96 12/01/19 20:33 Room Air 12/01/19 20:00 99.5 78 20 94/59 (71) 96 12/01/19 16:00 99.0 77 18 101/69 (80) 98 12/01/19 12:00 97.5 61 18 98/58 (71) 100 Intake and Output 12/01/19 12/02/19 19:00 07:00 Intake Total 840 ml Output Total 1500 ml 500 ml Balance -660 ml -500 ml Intake Oral 840 ml Output Urine Total 1500 ml 500 ml # Voids 1 # Bowel Movements 1 2 General Appearance: no acute distress HEENT: normocephalic Respiratory: chest wall non-tender, lungs clear Cardiovascular: normal peripheral pulses, regular rhythm Abdomen: normal bowel sounds Extremities: no cyanosis Current Medications Medications (Trade) Dose Ordered Sig/Mya Route PRN Reason Start Time Stop Time Status Last Admin Dose Admin Acetaminophen (Tylenol) 650 mg Q4H PRN ORAL Temp >100.5 11/05/19 16:00 12/05/19 15:59 11/25/19 04:15 Acetaminophen/ Hydrocodone Bitart ([place] 5/325) 1 tab Q6H PRN ORAL Severe Pain (Pain Scale 7-10) 11/29/19 10:36 12/06/19 10:35 12/02/19 08:58 Apixaban (Eliquis) 2.5 mg BID ORAL 11/24/19 09:00 02/22/20 08:59 12/02/19 08:57 Bisacodyl (Dulcolax) 10 mg DAILYPRN PRN RECTAL Constipation 11/24/19 07:45 02/22/20 07:44 Chlorhexidine Gluconate (Simran-Hex 2%) 1 applic DAILY@2000 TOPIC 11/13/19 20:00 02/11/20 19:59 12/01/19 21:11 Desmopressin Acetate (Ddavp) 1 spray DAILY NASAL 11/14/19 09:00 02/07/20 17:59 12/02/19 08:58 Dextrose (Dextrose 50%) 25 ml Q30M PRN IV Hypoglycemia 11/05/19 13:30 01/21/20 17:29 Dextrose (Dextrose 50%) 50 ml Q30M PRN IV Hypoglycemia 11/05/19 13:30 01/21/20 17:29 Famotidine (Pepcid) 20 mg DAILY ORAL 11/06/19 09:00 01/28/20 09:29 12/02/19 08:57 Ferrous Sulfate (Feosol) 325 mg DAILY ORAL 11/06/19 09:00 01/22/20 08:59 12/02/19 08:57 Fludrocortisone Acetate (Florinef) 0.1 mg DAILY ORAL 11/15/19 09:00 12/15/19 08:59 12/02/19 08:57 Gabapentin (Neurontin) 400 mg Q8HR ORAL 11/05/19 14:00 12/03/19 21:59 12/02/19 05:40 Magnesium Hydroxide (Mom) 30 ml HSPRN PRN ORAL Constipation 11/13/19 11:15 12/13/19 11:14 Midodrine (Pro-Amatine) 10 mg EVERY 8 HOURS ORAL 11/05/19 14:00 01/21/20 17:59 12/02/19 05:40 Naloxone HCl (Narcan) 0.2 mg Q2M PRN IVP RESPRITORY DEPRESSION RR<8 11/24/19 10:15 02/22/20 10:14 Senna/Docusate Sodium (Haley-Colace) 1 tab TWICE A DAY ORAL 11/24/19 09:00 12/24/19 08:59 12/02/19 08:57 Sodium Hypochlorite (Dakin's Quarter Strength) 1 applic DAILY TOPIC 12/01/19 09:00 12/31/19 08:59 12/02/19 09:02 Sodium Chloride (NaCl) 1 gm THREE TIMES A DAY ORAL 11/09/19 13:00 12/09/19 12:59 12/02/19 08:57 Zinc Sulfate (Zinc Sulfate) 220 mg DAILY ORAL 11/06/19 09:00 01/22/20 08:59 12/02/19 08:57 Assessment/Plan Assessment/Plan IMPRESSION: 1. Septic shock. resolved 2. Complicated UTI with history of previous ESBL infection. 3. Paraplegia. 4. Sacral decubitus. 5. senior care resident. DISCUSSION: DVT and GI prophylaxes. Continue Oxygen prn, doing well on room air at this time. DC planning Haily Monzon Omar Syed MD Dec 02, 2019 11:56
--- NOTE | 2019-12-02 14:57 | Surgery Progress Note ---
Surgery Progress Note Subjective Additional Comments afebrile HD stable labs okay no n/v Objective Last 24 Hour Vital Signs Date Time Temp Pulse Resp B/P (MAP) Pulse Ox O2 Delivery O2 Flow Rate FiO2 12/02/19 11:55 97.5 70 18 99/67 (78) 97 12/02/19 09:00 Room Air 12/02/19 08:00 98.6 68 19 95/63 (74) 96 12/02/19 04:00 99.1 81 20 98/54 (69) 95 12/02/19 00:00 99.1 76 20 96/52 (67) 96 12/01/19 20:33 Room Air 12/01/19 20:00 99.5 78 20 94/59 (71) 96 12/01/19 16:00 99.0 77 18 101/69 (80) 98 I&O Intake and Output 12/01/19 12/02/19 19:00 07:00 Intake Total 840 ml Output Total 1500 ml 500 ml Balance -660 ml -500 ml Intake Oral 840 ml Output Urine Total 1500 ml 500 ml # Voids 1 # Bowel Movements 1 2 Dressing: saturated, other Cardiovascular: RSR Respiratory: decreased breath sounds Abdomen: soft, non-tender, present bowel sounds Extremities: no edema, no tenderness, no cyanosis Plan Problems: (1) Abdominal distension Assessment & Plan: abd distention soft non tender ostomy viable and reduced KUB ordered pending results improved comfortable no complaints okay for diet s tolerated d/c planning much improved There is an inferior vena cava filter in place. Bowel gas pattern is unremarkable. Considerable stool is seen in the transverse and distal colon. There is extensive pelvic deformity, with loss of the left femoral head, chronic dislocation of the left femur, and extensive pelvic deformity, particularly on the left. [place] project over the upper pelvis Impression: Possible constipation. pending placement Nonobstructed bowel gas pattern. Moderate fecal retention of the ascending colon and sigmoid colon. The degree of stool burden has increased from October 25, 2019. IVC filter, incidentally noted. Partial subluxation of the right hip. Osteotomy of the proximal left femur with deformity of the bilateral pubic rami and left acetabulum, unchanged. increase bowel regimen (2) Anemia (3) Encephalopathy (4) Drug (multiple) resistant infection (5) Urinary tract infection in male (6) Hypokalemia (7) Femur fracture (8) Hyponatremia (9) Sepsis (10) UTI (urinary tract infection) (11) Hypotension (12) Vomiting (13) Left leg pain (14) Decubital ulcer Assessment & Plan: Pt presented on admission with Full Thickness stage 4 P ressure Injuries Sacrum and R Ischium.Pt is emaciated. [place] Shaped, Full Thickness Sacral Pressure Injury which extends into L ischium. (L)15.4cm x (W)18cm x (D)2.4cm, Undermining clockwise 10-2 by 7.7cm @11o'clock. Base of wound is moist,pink with scattered slough at base of wound. Bone is palpable at the Base. No odor or exudate noted. Scattered partial thickness wounds and Serous filled blisters noted to R trochanteric /R Hip areas. Historical scar noted to L groin, L Hip L Buttocks. Bony protrusion noted at L Hip. Full thickness Pressure Injury R Ischium(L)5.4cm x(W)6.9cm x (D)1.8cm,Undermining clockwise 1-4 by 2.7cm @2o'clock, Tunneling@7o'clock 2.9cm. Base of wound is moist pink with scattered slough. Scattered slough noted along borders. NO odor or exudate noted. Stable dry eschar noted to medial R knee 0.7cm x (W)0.4cm. Periwound is erythematous and indurated. No elevation in skin temp noted. L heel has shaved appearance secondary to Hx of Pressure Injuries. Base of heel is pale pink. Bone is palpable. Small area of slough noted within compromised area(L)0.6cm x (W)0.8cm. L Heel Also has shaved appearance with hypertrophic scarring. Base of compromised area is pale pink, Bone is palpable, with scattered loose, dry and scaly skin. Patient's wound remains very large extensive and requires significant amount of care. Continued care of the wounds have been provided though patient is having continence through the anus at this time again despite diversion. Wounds remain saturated times and great nursing care is being provided unfortunately inevitable decline is still significantly potential given his overall condition. Tx.Plan: Cleanse Sacral Wound and R Ischial wounds with Dakin's 0.125% gian. Loosely pack wounds with Hydrogel impregnated Kerlix. Apply Moisture Barrier Paste periwound. Cover with ABD Pads secure with Tegaderm drsg.Daily and prn. Apply Triad Paste to R Hip/R trochanteric areas.Cover with Optifoam drsg. Change every 7 days and prn. Apply Betadine to Medial R Knee. Cover with Optifoam drsg. Change every 7 days and prn. Apply Betadine to R and L Heels. Cover each Heel with Optifoam drsgs. Change every 7 days and prn. Cover Bony Prominences as needed with Optifoam drsgs. Reposition at least every 2 [address] tolerated[address] Pillow between knees. Off-load heels with pillow. APM/SUMI Mattress overlay DAILY ESTIMATED NEEDS: Needs based on Advanced wounds, wt loss/ 40.18kg 35-40 kcals/kg 2350-5872 total kcals 1.5-2.0 g protein/kg 60-80 g total protein 25-35ml/kcal mL/kg 1635-1887 total fluid mLs NUTRITION DIAGNOSIS: Increased kcal/prot/micronutrients needs R/T wound healing and underweight status as evidenced by pt admitted w/ multiple advanced wounds, refer to WC eval, pt now w/ further 3% unfavorable wt loss, currently BMI underweight per guidelines, @62% of [place] Body Weight. 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 There is distention of the rectum with feces, rectal diameter 70 mm. There is some thickening of the rectal wall. The appendix is not definitely visualized, but no findings to suggest acute appendicitis are evident. There is considerable stool throughout the colon. There appears to be rectal incontinence of stool despite the diverting colostomy. Cornelius Salgado Dec 02, 2019 14:57
[2019-12-02 16:00] VITALS: BP 100/70
--- NOTE | 2019-12-02 16:47 | Infectious Diseases Prog Note ---
Assessment/Plan Assessment/Plan ASSESSMENT AND PLAN: 1. hx sepsis/shock, hx proteus uti, hx esbl e.coli uti, possible aspiration pna/hcap vs cap, sacral wound - ? infected, mrsa and vre colonization fevers, leukocytosis - new acinetobacter uti and vre uti, + urine culture CT abdomen and pelvis without acute abscess, blood cultures negative ? pna on chest x-ray vs atx, ? aspiration pna/hcap - polymyxin and zyvox - finish course - monitor labs, chest x-ray and temperatures - clinically improved, fevers improved 2. ICU care. 3. Sacral wound -wound mostly clean, management per surgery 4. Ostomy malfunction - per surgery 5. Hypertension. 6. Paraplegia. 7. Anemia. 8. History of decubitus ulcer, rule out infection. Infectious diseases is following. The patient on antibiotics. 9. Hypertension treatment per primary care team. 10. Continue treatment per primary consultants. 11. No known drug allergies. 12. Social history is negative. 13. Family history is noncontributory. 14. MAR was noted. 15. Case discussed with RN. Subjective Constitutional: Denies: fever HEENT: Denies: congestion Respiratory: Denies: shortness of breath Cardiovascular: Denies: chest pain Gastrointestinal/Abdominal: Denies: nausea, vomiting, diarrhea Genitourinary: Reports: other - + donohue Neurologic: Denies: headache Psychiatric: Denies: depression Skin: Denies: rash Hematologic: Denies: bleeding Musculoskeletal: Denies: pain Allergies: Coded Allergies: No Known Allergies (Unverified , 08/15/19) Objective Last 24 Hour Vital Signs Date Time Temp Pulse Resp B/P (MAP) Pulse Ox O2 Delivery O2 Flow Rate FiO2 12/02/19 16:00 98.0 72 18 100/70 (80) 96 12/02/19 11:55 97.5 70 18 99/67 (78) 97 12/02/19 09:00 Room Air 12/02/19 08:00 98.6 68 19 95/63 (74) 96 12/02/19 04:00 99.1 81 20 98/54 (69) 95 12/02/19 00:00 99.1 76 20 96/52 (67) 96 12/01/19 20:33 Room Air 12/01/19 20:00 99.5 78 20 94/59 (71) 96 Height (Feet): 5 Height (Inches): 7.00 Weight (Pounds): 114 General Appearance: no acute distress HEENT: normocephalic, atraumatic, anicteric, mucous membranes moist Respiratory/Chest: lungs clear, normal breath sounds, no respiratory distress, no accessory muscle use Cardiovascular: normal rate, regular rhythm, no gallop/murmur, no JVD Abdomen: normal bowel sounds, soft, non tender, no organomegaly, non distended Genitourinary: other - + donohue - urine slt cloudy Extremities: no cyanosis Skin: no rash Neurologic/Psychiatric: frog catcher II-XII grossly normal, alert, responsive Lymphatic: no neck adenopathy Musculoskeletal: no effusion Chest x-ray - 10/25/19 - Procedure: XRAY Chest 1v Indication: Shortness of breath Technique: One view of the chest Comparison: 10/23/2019 Findings: There are bilateral basilar infiltrates, which appear new or increased since prior study. There is some atelectasis at the left lung base as well. Right jugular central venous catheter remains. The heart size is normal. Impression: New/increased bilateral basilar infiltrates, since prior study 10/23/2019 Chest x-ray - 10/27/19 - Procedure: XRAY Chest 1v Indication: Shortness of breath Technique: One view of the chest Comparison: 10/25/2019 Findings: There is atelectasis possibly some focal consolidation at the right lung base. Atelectatic changes previously demonstrated at the left lung base have largely cleared. Right jugular central venous catheter remains. The heart size is normal. Impression: Improving left basilar atelectasis. Otherwise little change management coordinator 2 days findings as noted Chest x-ray - 10/29/19 - FINDINGS: Lungs: Persistent subsegmental atelectasis in bilateral lower lungs, not significant changed compared to the prior exam. No new consolidation is seen. Pleural space: Unremarkable. The costophrenic angles are sharp. No visible pneumothorax. Heart: Unremarkable. No cardiomegaly. Mediastinum: Unremarkable. Bones/joints: Unremarkable. Vasculature: Mild atherosclerotic calcifications are noted within the aortic arch. Tubes, lines and devices: Stable positioning of a right IJ central venous catheter with the tip in the SVC. Telemetry leads overlie the thorax. IMPRESSION: Persistent subsegmental atelectasis in bilateral lower lungs, not significantly changed compared to the prior exam. Chest x-rasy - 11/03/19 - Procedure: XRAY Chest 1v Indication: Cough Technique: One view of the chest Comparison: 10/29/2019 Findings: There are increased atelectatic changes at the lung bases. Interim removal of previously demonstrated central venous catheter. The pleural spaces are clear. The heart size is normal. Impression: Increasing bilateral basilar atelectasis Interim central venous catheter removal. Chest x-ray - 11/07/19 - Procedure: XRAY Chest 1v Indication: Shortness of breath Technique: One view of the chest Comparison: 11/03/2019 Findings: Bilateral basilar atelectatic changes appear similar to the previous exam. There may be some patchy left perihilar and bilateral peripheral consolidation. The heart size is normal. Impression: New or increased faint patchy peripheral and left perihilar consolidative opacities, possibly reflecting multifocal pneumonia, since prior study 03/04/2019 Persistent bilateral basilar atelectatic changes Chest x-ray - 11/09/19 - Procedure: XRAY Chest 1v Indication: Cough Technique: One view of the chest Comparison: 11/07/2019 Findings: There is improved aeration of the lung bases, although some atelectasis persists bilaterally. No new infiltrates. The pleural spaces are clear. The heart size is normal. Impression: Improved aeration with decreased basilar atelectasis Chest x-ray - 11/14/19 - Procedure: XRAY Chest 1v Indication: Cough Technique: One view of the chest Comparison: 11/09/2019 Findings: Bilateral basilar atelectasis has increased. No new infiltrates. The pleural spaces remain clear. The heart size is normal. Impression: Increased bilateral basilar atelectasis, since prior study 11/09/2019 Chest x-ray - 11/15/19 - Procedure: XRAY Chest 1v Indication: Cough Technique: One view of the chest Comparison: 11/13/2019 Findings: Again demonstrated is bilateral basilar atelectasis versus scarring. The lungs and pleural spaces are otherwise clear. The heart size is normal. Interim placement right arm PICC. Impression: No acute process Chest x-ray - 11/21/19 - Procedure: XRAY Chest 1v Indication: Shortness of breath Technique: One view of the chest Comparison: 11/15/2019 Findings: Previously demonstrated basilar atelectatic changes have cleared. Lungs and pleural spaces are currently clear. The heart size is normal. There is a right arm PICC again demonstrated Impression: No acute process CT abdomen and pelvis: Impression: Extensive decubitus changes, as described, with evidence of skin thickening, surface ulceration, deep ulceration, and likely prior skin grafting. There is also evidence of extensive bone loss. This may be due to erosive changes, postsurgical changes, or likely combination of both. No findings to suggest ab scess Left lower quadrant diverting sigmoid colostomy. Considerable distal stool and evidence of rectal fecal impaction and incontinence, despite this. Rectal wall thickening could indicate stercoral proctitis Splenomegaly Inferior vena cava filter Donohue catheter and empty bladder. Some calcifications are seen surrounding the Donohue balloon Posterior pulmonary dependent atelectatic changes and possible consolidation Other findings as noted, including probable hepatic and renal cysts Chest x-ray - 11/25/19 - FINDINGS: Lungs: There are mild bilateral lower lobe infiltrates consistent with nonspecific pneumonia. Pleural space: Unremarkable. No pneumothorax. Heart: Unremarkable. No cardiomegaly. Mediastinum: Unremarkable. Bones/joints: Unremarkable. Tubes, lines and devices: There is a right-sided PICC line in good position. IMPRESSION: There are mild bilateral lower lobe infiltrates consistent with nonspecific pneumonia. Chest x-ray - 11/27/19 - Procedure: XRAY Chest 1v Procedure: XRAY Chest 1v Reason for study: Shortness of breath. Comparison films: 11/25/2019. FINDINGS: Right PICC line remains in place. Vascularity is normal. There are linear atelectasis in both lung bases. Cardiac and mediastinal silhouette are within normal limits. CP angles are sharp. The bony thorax appear unremarkable. IMPRESSION: Bibasilar linear atelectasis. Microbiology Date/Time Source Procedure Growth Status 11/25/19 09:45 Blood Blood Culture - Final NO GROWTH AFTER 5 DAYS Complete 11/20/19 23:30 Indwelling Cath Urine Culture - Final Acinetobacter Baumanii - Mdr Enterococcus Faecium - Vre Complete 11/03/19 08:00 Catheter Site Catheter Tip Culture - Final Staphylococcus Sp Coag Neg Complete 11/02/19 13:30 Nasopharynx SARS-CoV-2 RdRp Gene Assay - Final Complete wbc - 8.8 hgb - 8.0 cr - 0.6 Current Medications Medications (Trade) Dose Ordered Sig/Mya Route PRN Reason Start Time Stop Time Status Last Admin Dose Admin Acetaminophen (Tylenol) 650 mg Q4H PRN ORAL Temp >100.5 11/05/19 16:00 12/05/19 15:59 11/25/19 04:15 Acetaminophen/ Hydrocodone Bitart (Notrees 5/325) 1 tab Q6H PRN ORAL Severe Pain (Pain Scale 7-10) 11/29/19 10:36 12/06/19 10:35 12/02/19 08:58 Apixaban (Eliquis) 2.5 mg BID ORAL 11/24/19 09:00 02/22/20 08:59 12/02/19 08:57 Bisacodyl (Dulcolax) 10 mg DAILYPRN PRN RECTAL Constipation 11/24/19 07:45 02/22/20 07:44 Chlorhexidine Gluconate (Simran-Hex 2%) 1 applic DAILY@2000 TOPIC 11/13/19 20:00 02/11/20 19:59 12/01/19 21:11 Desmopressin Acetate (Ddavp) 1 spray DAILY NASAL 11/14/19 09:00 02/07/20 17:59 12/02/19 08:58 Dextrose (Dextrose 50%) 25 ml Q30M PRN IV Hypoglycemia 11/05/19 13:30 01/21/20 17:29 Dextrose (Dextrose 50%) 50 ml Q30M PRN IV Hypoglycemia 11/05/19 13:30 01/21/20 17:29 Famotidine (Pepcid) 20 mg DAILY ORAL 11/06/19 09:00 01/28/20 09:29 12/02/19 08:57 Ferrous Sulfate (Feosol) 325 mg DAILY ORAL 11/06/19 09:00 01/22/20 08:59 12/02/19 08:57 Fludrocortisone Acetate (Florinef) 0.1 mg DAILY ORAL 11/15/19 09:00 12/15/19 08:59 12/02/19 08:57 Gabapentin (Neurontin) 400 mg Q8HR ORAL 11/05/19 14:00 12/03/19 21:59 12/02/19 13:12 Magnesium Hydroxide (Mom) 30 ml HSPRN PRN ORAL Constipation 11/13/19 11:15 12/13/19 11:14 Midodrine (Pro-Amatine) 10 mg EVERY 8 HOURS ORAL 11/05/19 14:00 01/21/20 17:59 12/02/19 13:12 Naloxone HCl (Narcan) 0.2 mg Q2M PRN IVP RESPRITORY DEPRESSION RR<8 11/24/19 10:15 02/22/20 10:14 Senna/Docusate Sodium (Haley-Colace) 1 tab TWICE A DAY ORAL 11/24/19 09:00 12/24/19 08:59 12/02/19 08:57 Sodium Hypochlorite (Dakin's Quarter Strength) 1 applic DAILY TOPIC 12/01/19 09:00 12/31/19 08:59 12/02/19 09:02 Sodium Chloride (NaCl) 1 gm THREE TIMES A DAY ORAL 11/09/19 13:00 12/09/19 12:59 12/02/19 13:12 Zinc Sulfate (Zinc Sulfate) 220 mg DAILY ORAL 11/06/19 09:00 01/22/20 08:59 12/02/19 08:57 Sharif Painting MD Dec 02, 2019 16:47
[2019-12-02 19:59] VITALS: BP 97/54
[2019-12-02] MEDS: Dyna-Hex 2% Top Sol 2oz TOPIC SCH (21:24)
--- NOTE | 2019-12-02 21:36 | Hematology/Onc Progress Note ---
Assessment/Plan Assessment/Plan # Acute left upstream popliteal vein deep venous thrombosis IVC filter in place --> given acute nature, will continue eliquis --> HOWEVER, if drop in h/h consider to hold eliquis as has ivc in place --> IVC Filter placed earlier # Anemia rule out gi bleed, as well as iron deficiency --> hgb 8.2-->7.2-->7.1->6.9-->8.6-->8.3-->9.3-->8.3-->9.3--.9.2->8.7->8 --> anemia panel ordered--> cw acd --> occult blood pending-->neg --> gi eval prn --> transfuse as needed --> transfuse 2 units 10/27 --> po iron to continue # Coagulopathy with elev ptt/inr --> vitk and ffp as needed --> no bleeding noted at this time # Thrombocytosis likely reactive process --> plt 398-->608-->605 --> abx as needed # Sepsis due to uti, with Hypotension likely due to septic shock. Was diuresing heavily at 300 mL an hour. --> Continue on midodrine and dopamine. --> ABX vancomycin and meropenem and amikacin-->christel/vanc/difluc-->vanc/linezolid --> before requires pressors --> as per cards # Bradycardia. --> per cards # Paraplegia. # LLQ colostomy # Decubitus ulcers with sacral decubitus. # Dvt ppx eliquis Appreciate consultation and chandrakant RN Subjective HEENT: Denies: no symptoms, eye pain, blurred vision, tearing, double vision, ear pain, ear discharge, nose pain, nose congestion, throat pain, throat swelling, mouth pain, mouth swelling, other Cardiovascular: Denies: no symptoms, chest pain, edema, irregular heart rate, lightheadedness, palpitations, syncope, other Respiratory: Denies: no symptoms, cough, shortness of breath, SOB with excertion, SOB at rest, sputum, wheezing, other Genitourinary: Denies: no symptoms, burning, discharge, frequency, flank pain, hematuria, incontinence, pain, urgency, other Neurologic/Psychiatric: Denies: no symptoms, anxiety, depressed, emotional problems, headache, numbness, paresthesia, pre-existing deficit, seizure, tingling, tremors, weakness, other Endocrine: Denies: no symptoms, excessive sweating, flushing, intolerance to cold, intolerance to heat, increased hunger, increased thirst, increased urine, unexplained weight gain, unexplained weight loss, other Hematologic/Lymphatic: Denies: no symptoms, anemia, easy bleeding, easy bruisi ng, adenopathy, other Allergies: Coded Allergies: No Known Allergies (Unverified , 08/15/19) Subjective 10/27 labs again refused this am, yesterday was low, chandrakant rn in icu 10/28 remains in icu, for 2units prbc this am, chandrakant [place], no other events 10/29 s/p prbc, tolerated it well, no bleeding, on 1mcg levo, in icu 10/30 on abx, on levo and overnight no other events, chandrakant [place]\ 10/31 wounds improved, labs noted, no bleeding, hgb lower, refusing care/wound care 11/01 labs noted, no bleeding, no hematochezia, no hemoptysis, cbc ordered 11/02 meds reviewed, labs noted, no bleeding, chandrakant [place], no major changes, hgb 8.3 11/04 labs have been noted, no bleeding, meds reviewed, no hemolysis 11/05 functional colostomy llq, no bleeding, cbc is pending for am 11/06 labs have been refused, hgb 8.3, no bleeding, wbc is higher in am 11/07 labs have initially been refused, no bleeding in am, wbc 13, on abx 11/08 labs reviewed, no bleeding, chandrakant [place], cbc is pending for am 11/09 is on vanc/difl/christel, no other changes, cbc and bmp are noted 11/11 has been asymptomatic, eating breakfast, hgb 9.3, on abx 11/12 labs are noted, no bleeding, chandrakant [place], no major changes, abx 11/13 is currently on christel and vanc, chandrakant [place], no major bleeding, on hep sq 11/14 labs are noted, does not want to be changed currently, cbc/bmp ordered 11/15 labs reviewed, c/o pain at picc line, no bleeding, meds noted, hgb 8.7 11/16 labs are noted, has been cleared, for dc planning to snf 11/[address], no bleeding, meds noted, continues to be on heparin sq 11/19 labs noted, no bleeding, comfortable, cbc is ntoed and bmp for am labs 11/[address], with dressing change as needed, meds noted, labs reviewed 11/[address], is on vanc/christel seen by id, no major changes 11/22 labs reviewed, with colostomy, donohue catheter, ct of a/p noted 11/23 meds noted, no bleeding, have ordered for eliquis and chandrakant Razo in am 11/25 labs noted, no bleeding, on blood thinner is on vanc/linezolid, hgb 8 11/26 remains on eliquis, no bleeding, meds noted, eating breakfast this am 11/27 low bp, ns given, meds are reviewed, no major hemolysis, remains on po iron 11/28 on eliquis, ferrous suldate, no bleeding, comfortable 12/01 labs are noted, on anticaog, also hgb 8, no bleeding, comfortable Objective Objective Current Medications Medications (Trade) Dose Ordered Sig/Mya Route PRN Reason Start Time Stop Time Status Last Admin Dose Admin Acetaminophen (Tylenol) 650 mg Q4H PRN ORAL Temp >100.5 11/05/19 16:00 12/05/19 15:59 11/25/19 04:15 Acetaminophen/ Hydrocodone Bitart ([place] 5/325) 1 tab Q6H PRN ORAL Severe Pain (Pain Scale 7-10) 11/29/19 10:36 12/06/19 10:35 12/02/19 17:14 Apixaban (Eliquis) 2.5 mg BID ORAL 11/24/19 09:00 02/22/20 08:59 12/02/19 17:12 Bisacodyl (Dulcolax) 10 mg DAILYPRN PRN RECTAL Constipation 11/24/19 07:45 02/22/20 07:44 Chlorhexidine Gluconate (Simran-Hex 2%) 1 applic DAILY@2000 TOPIC 11/13/19 20:00 02/11/20 19:59 12/02/19 21:24 Desmopressin Acetate (Ddavp) 1 spray DAILY NASAL 11/14/19 09:00 02/07/20 17:59 12/02/19 08:58 Dextrose (Dextrose 50%) 25 ml Q30M PRN IV Hypoglycemia 11/05/19 13:30 01/21/20 17:29 Dextrose (Dextrose 50%) 50 ml Q30M PRN IV Hypoglycemia 11/05/19 13:30 01/21/20 17:29 Famotidine (Pepcid) 20 mg DAILY ORAL 11/06/19 09:00 01/28/20 09:29 12/02/19 08:57 Ferrous Sulfate (Feosol) 325 mg DAILY ORAL 11/06/19 09:00 01/22/20 08:59 12/02/19 08:57 Fludrocortisone Acetate (Florinef) 0.1 mg DAILY ORAL 11/15/19 09:00 12/15/19 08:59 12/02/19 08:57 Gabapentin (Neurontin) 400 mg Q8HR ORAL 11/05/19 14:00 12/03/19 21:59 12/02/19 21:23 Magnesium Hydroxide (Mom) 30 ml HSPRN PRN ORAL Constipation 11/13/19 11:15 12/13/19 11:14 Midodrine (Pro-Amatine) 10 mg EVERY 8 HOURS ORAL 11/05/19 14:00 01/21/20 17:59 12/02/19 21:24 Naloxone HCl (Narcan) 0.2 mg Q2M PRN IVP RESPRITORY DEPRESSION RR<8 11/24/19 10:15 02/22/20 10:14 Senna/Docusate Sodium (Haley-Colace) 1 tab TWICE A DAY ORAL 11/24/19 09:00 12/24/19 08:59 12/02/19 17:12 Sodium Hypochlorite (Dakin's Quarter Strength) 1 applic DAILY TOPIC 12/01/19 09:00 12/31/19 08:59 12/02/19 09:02 Sodium Chloride (NaCl) 1 gm THREE TIMES A DAY ORAL 11/09/19 13:00 12/09/19 12:59 12/02/19 17:12 Zinc Sulfate (Zinc Sulfate) 220 mg DAILY ORAL 11/06/19 09:00 01/22/20 08:59 12/02/19 08:57 Last 24 Hour Vital Signs Date Time Temp Pulse Resp B/P (MAP) Pulse Ox O2 Delivery O2 Flow Rate FiO2 12/02/19 19:59 98.2 68 18 97/54 (68) 97 12/02/19 16:00 98.0 72 18 100/70 (80) 96 12/02/19 11:55 97.5 70 18 99/67 (78) 97 12/02/19 09:00 Room Air 12/02/19 08:00 98.6 68 19 95/63 (74) 96 12/02/19 04:00 99.1 81 20 98/54 (69) 95 12/02/19 00:00 99.1 76 20 96/52 (67) 96 12/01/19 20:33 Room Air 12/01/19 20:00 99.5 78 20 94/59 (71) 96 12/01/19 16:00 99.0 77 18 101/69 (80) 98 12/01/19 12:00 97.5 61 18 98/58 (71) 100 12/01/19 09:00 Room Air 12/01/19 08:00 98.4 72 18 101/54 (70) 100 12/01/19 05:17 98.6 12/01/19 04:00 98.2 65 19 107/58 (74) 100 12/01/19 00:00 98.6 68 19 105/55 (72) 95 Intake and Output 12/01/19 12/02/19 19:00 07:00 Intake Total 840 ml Output Total 1500 ml 500 ml Balance -660 ml -500 ml Intake Oral 840 ml Output Urine Total 1500 ml 500 ml # Voids 1 # Bowel Movements 1 2 Height (Feet): 5 Height (Inches): 7.00 Weight (Pounds): 114 Objective Physical Exam General Appearance: lethargic Lines, tubes and drains: peripheral, central line HEENT: normocephalic Neck: non-tender, normal alignment Respiratory/Chest: lungs clear Cardiovascular/Chest: normal peripheral pulses, normal rate, regular rhythm Abdomen: normal bowel sounds, non tender ++ llq colostomy : ++Martínez Geiger MD Dec 02, 2019 21:36
[2019-12-03 04:00] VITALS: BP 94/57
[2019-12-03] MEDS: Midodrine 10mg tab ORAL SCH ×3 (06:33→21:16)
[2019-12-03] MEDS: HYDROcodone/Acetamin 5/325 tab ORAL PRN ×2 (06:34→20:06)
[2019-12-03 08:00] VITALS: BP 116/90
[2019-12-03] MEDS: Docusate Sod/Senna tab ORAL SCH ×2 (08:16→17:03)
[2019-12-03] MEDS: Sodium Chloride 1gm Tab ORAL SCH ×3 (08:16→17:03)
[2019-12-03] MEDS: Eliquis 2.5mg tablet ORAL SCH ×2 (08:16→17:04)
[2019-12-03] MEDS: Zinc Sulfate 220mg ORAL SCH (08:16)
[2019-12-03] MEDS: Desmopressin Nasal 5ml NASAL SCH (08:16)
[2019-12-03] MEDS: Dakin's 0.125% Soln (Quarter Strength) 16oz TOPIC SCH (08:17)
--- NOTE | 2019-12-03 11:37 | Hematology/Onc Progress Note ---
Assessment/Plan Assessment/Plan # Acute left upstream popliteal vein deep venous thrombosis IVC filter in place --> given acute nature, will continue eliquis --> HOWEVER, if drop in h/h consider to hold eliquis as has ivc in place --> IVC Filter placed earlier # Anemia rule out gi bleed, as well as iron deficiency --> hgb 8.2-->7.2-->7.1->6.9-->8.6-->8.3-->9.3-->8.3-->9.3--.9.2->8.7->8 --> anemia panel ordered--> cw acd --> occult blood pending-->neg --> gi eval prn --> transfuse as needed --> transfuse 2 units 10/27 --> po iron to continue # Coagulopathy with elev ptt/inr --> vitk and ffp as needed --> no bleeding noted at this time # Thrombocytosis likely reactive process --> plt 398-->608-->605 --> abx as needed # Sepsis due to uti, with Hypotension likely due to septic shock. Was diuresing heavily at 300 mL an hour. --> Continue on midodrine and dopamine. --> ABX vancomycin and meropenem and amikacin-->christel/vanc/difluc-->vanc/linezolid --> before requires pressors --> as per cards # Bradycardia. --> per cards # Paraplegia. # LLQ colostomy # Decubitus ulcers with sacral decubitus. # Dvt ppx eliquis Appreciate consultation and chandrakant RN Subjective Constitutional: Denies: no symptoms, chills, fever, malaise, weakness, other Cardiovascular: Denies: no symptoms, chest pain, edema, irregular heart rate, lightheadedness, palpitations, syncope, other Respiratory: Denies: no symptoms, cough, shortness of breath, SOB with excertion, SOB at rest, sputum, wheezing, other Gastrointestinal/Abdominal: Denies: no symptoms, abdomen distended, abdominal pain, black stools, tarry stools, blood in stool, constipated, diarrhea, difficulty swallowing, nausea, poor appetite, poor fluid intake, rectal bleeding, vomiting, other Genitourinary: Denies: no symptoms, burning, discharge, frequency, flank pain, hematuria, incontinence, pain, urgency, other Neurologic/Psychiatric: Denies: no symptoms, anxiety, depressed, emotional problems, headache, numbness, paresthesia, pre-existing deficit, seizure, tingling, tremors, weakness, other Endocrine: Denies: no symptoms, excessive sweating, flushing, intolerance to cold, intolerance to heat, increased hunger, increased thirst, increased urine, unexplained weight gain, unexplained weight loss, other Allergies: Coded Allergies: No Known Allergies (Unverified , 08/15/19) Subjective 10/27 labs again refused this am, yesterday was low, chandrakant rn in icu 10/28 remains in icu, for 2units prbc this am, chandrakant [place], no other events 10/29 s/p prbc, tolerated it well, no bleeding, on 1mcg levo, in icu 10/30 on abx, on levo and overnight no other events, chandrakant [place]\ 10/31 wounds improved, labs noted, no bleeding, hgb lower, refusing care/wound care 11/01 labs noted, no bleeding, no hematochezia, no hemoptysis, cbc ordered 11/02 meds reviewed, labs noted, no bleeding, chandrakant [place], no major changes, hgb 8.3 11/04 labs have been noted, no bleeding, meds reviewed, no hemolysis 11/05 functional colostomy llq, no bleeding, cbc is pending for am 11/06 labs have been refused, hgb 8.3, no bleeding, wbc is higher in am 11/07 labs have initially been refused, no bleeding in am, wbc 13, on abx 11/08 labs reviewed, no bleeding, chandrakant [place], cbc is pending for am 11/09 is on vanc/difl/christel, no other changes, cbc and bmp are noted 11/11 has been asymptomatic, eating breakfast, hgb 9.3, on abx 11/12 labs are noted, no bleeding, chandrakant [place], no major changes, abx 11/13 is currently on christel and vanc, chandrakant [place], no major bleeding, on hep sq 11/14 labs are noted, does not want to be changed currently, cbc/bmp ordered 11/15 labs reviewed, c/o pain at picc line, no bleeding, meds noted, hgb 8.7 11/16 labs are noted, has been cleared, for dc planning to snf 11/[address], no bleeding, meds noted, continues to be on heparin sq 11/19 labs noted, no bleeding, comfortable, cbc is ntoed and bmp for am labs 11/[address], with dressing change as needed, meds noted, labs reviewed 11/[address], is on vanc/christel seen by id, no major changes 11/22 labs reviewed, with colostomy, donohue catheter, ct of a/p noted 11/23 meds noted, no bleeding, have ordered for eliquis and chandrakant Razo in am 11/25 labs noted, no bleeding, on blood thinner is on vanc/linezolid, hgb 8 11/26 remains on eliquis, no bleeding, meds noted, eating breakfast this am 11/27 low bp, ns given, meds are reviewed, no major hemolysis, remains on po iron 11/28 on eliquis, ferrous suldate, no bleeding, comfortable 12/01 labs are noted, on anticaog, also hgb 8, no bleeding, comfortable 12/02 is without events, no bleeding, labs reviewed, no bleeding, meds noted Objective Objective Current Medications Medications (Trade) Dose Ordered Sig/Mya Route PRN Reason Start Time Stop Time Status Last Admin Dose Admin Acetaminophen (Tylenol) 650 mg Q4H PRN ORAL Temp >100.5 11/05/19 16:00 12/05/19 15:59 11/25/19 04:15 Acetaminophen/ Hydrocodone Bitart ([place] 5/325) 1 tab Q6H PRN ORAL Severe Pain (Pain Scale 7-10) 11/29/19 10:36 12/06/19 10:35 12/03/19 06:34 Apixaban (Eliquis) 2.5 mg BID ORAL 11/24/19 09:00 02/22/20 08:59 12/03/19 08:16 Bisacodyl (Dulcolax) 10 mg DAILYPRN PRN RECTAL Constipation 11/24/19 07:45 02/22/20 07:44 Chlorhexidine Gluconate (Simran-Hex 2%) 1 applic DAILY@1999 TOPIC 11/13/19 20:00 02/11/20 19:59 12/02/19 21:24 Desmopressin Acetate (Ddavp) 1 spray DAILY NASAL 11/14/19 09:00 02/07/20 17:59 12/03/19 08:16 Dextrose (Dextrose 50%) 25 ml Q30M PRN IV Hypoglycemia 11/05/19 13:30 01/21/20 17:29 Dextrose (Dextrose 50%) 50 ml Q30M PRN IV Hypoglycemia 11/05/19 13:30 01/21/20 17:29 Famotidine (Pepcid) 20 mg DAILY ORAL 11/06/19 09:00 01/28/20 09:29 12/03/19 08:16 Ferrous Sulfate (Feosol) 325 mg DAILY ORAL 11/06/19 09:00 01/22/20 08:59 12/03/19 08:16 Fludrocortisone Acetate (Florinef) 0.1 mg DAILY ORAL 11/15/19 09:00 12/15/19 08:59 12/03/19 08:16 Gabapentin (Neurontin) 400 mg Q8HR ORAL 11/05/19 14:00 12/03/19 21:59 12/03/19 06:33 Magnesium Hydroxide (Mom) 30 ml HSPRN PRN ORAL Constipation 11/13/19 11:15 12/13/19 11:14 Midodrine (Pro-Amatine) 10 mg EVERY 8 HOURS ORAL 11/05/19 14:00 01/21/20 17:59 12/03/19 06:33 Naloxone HCl (Narcan) 0.2 mg Q2M PRN IVP RESPRITORY DEPRESSION RR<8 11/24/19 10:15 02/22/20 10:14 Senna/Docusate Sodium (Haley-Colace) 1 tab TWICE A DAY ORAL 11/24/19 09:00 12/24/19 08:59 12/03/19 08:16 Sodium Hypochlorite (Dakin's Quarter Strength) 1 applic DAILY TOPIC 12/01/19 09:00 12/31/19 08:59 12/03/19 08:17 Sodium Chloride (NaCl) 1 gm THREE TIMES A DAY ORAL 11/09/19 13:00 12/09/19 12:59 12/03/19 08:16 Zinc Sulfate (Zinc Sulfate) 220 mg DAILY ORAL 11/06/19 09:00 01/22/20 08:59 12/03/19 08:16 Last 24 Hour Vital Signs Date Time Temp Pulse Resp B/P (MAP) Pulse Ox O2 Delivery O2 Flow Rate FiO2 12/03/19 09:47 Room Air 12/03/19 08:00 98.2 84 18 116/90 (99) 96 12/03/19 04:00 98.8 72 18 94/57 (69) 97 12/02/19 21:00 Room Air 12/02/19 19:59 98.2 68 18 97/54 (68) 97 12/02/19 16:00 98.0 72 18 100/70 (80) 96 12/02/19 11:55 97.5 70 18 99/67 (78) 97 12/02/19 09:00 Room Air 12/02/19 08:00 98.6 68 19 95/63 (74) 96 12/02/19 04:00 99.1 81 20 98/54 (69) 95 12/02/19 00:00 99.1 76 20 96/52 (67) 96 12/01/19 20:33 Room Air 12/01/19 20:00 99.5 78 20 94/59 (71) 96 12/01/19 16:00 99.0 77 18 101/69 (80) 98 12/01/19 12:00 97.5 61 18 98/58 (71) 100 Intake and Output 12/02/19 12/03/19 19:00 07:00 Intake Total 800 ml Output Total 800 ml Balance 800 ml -800 ml Other 800 ml Output Urine Total 800 ml # Voids 1 Height (Feet): 5 Height (Inches): 7.00 Weight (Pounds): 114 Objective Physical Exam General Appearance: lethargic Lines, tubes and drains: peripheral, central line HEENT: normocephalic Neck: non-tender, normal alignment Respiratory/Chest: lungs clear Cardiovascular/Chest: normal peripheral pulses, normal rate, regular rhythm Abdomen: normal bowel sounds, non tender ++ llq colostomy : ++Martínez Geiger MD Dec 03, 2019 11:37
[2019-12-03 12:00] VITALS: BP 109/70
--- NOTE | 2019-12-03 12:50 | General Progress Note ---
Subjective Date patient seen: Dec 03, 2019 Time patient seen: 11:21 ROS Limited/Unobtainable: Yes Constitutional: Denies: fever, malaise, weakness HEENT: Denies: blurred vision, tearing, double vision, ear pain Cardiovascular: Denies: irregular heart rate, lightheadedness Respiratory: Denies: shortness of breath, SOB with excertion, SOB at rest, sputum Gastrointestinal/Abdominal: Denies: abdomen distended, abdominal pain, black stools, tarry stools, blood in stool, difficulty swallowing Genitourinary: Denies: frequency, flank pain, hematuria Neurologic/Psychiatric: Denies: anxiety, depressed, emotional problems, headache Endocrine: Denies: intolerance to cold, intolerance to heat, increased hunger, increased thirst Hematologic/Lymphatic: Denies: easy bleeding, easy bruising Allergies: Coded Allergies: No Known Allergies (Unverified , 08/15/19) Subjective No complaints. Objective Last 24 Hour Vital Signs Date Time Temp Pulse Resp B/P (MAP) Pulse Ox O2 Delivery O2 Flow Rate FiO2 12/03/19 12:00 96.4 79 19 109/70 (83) 98 12/03/19 09:47 Room Air 12/03/19 08:00 98.2 84 18 116/90 (99) 96 12/03/19 04:00 98.8 72 18 94/57 (69) 97 12/02/19 21:00 Room Air 12/02/19 19:59 98.2 68 18 97/54 (68) 97 12/02/19 16:00 98.0 72 18 100/70 (80) 96 Intake and Output 12/02/19 12/03/19 19:00 07:00 Intake Total 800 ml Output Total 800 ml Balance 800 ml -800 ml Other 800 ml Output Urine Total 800 ml # Voids 1 Height (Feet): 5 Height (Inches): 7.00 Weight (Pounds): 114 General Appearance: no apparent distress, alert, cachetic EENT: normal ENT inspection, TMs normal Neck: normal alignment, supple Cardiovascular: normal peripheral pulses, normal rate, no gallop/murmur, no JVD Respiratory/Chest: chest wall non-tender, normal breath sounds, no respiratory distress Abdomen: normal bowel sounds, non tender, soft, no organomegaly Extremities: non-tender, normal inspection Edema: no edema noted Arm (L), no edema noted Arm (R), no edema noted Leg (L), no edema noted Leg (R), no edema noted Pedal (L), no edema noted Pedal (R), no edema noted Generalized Neurologic: station attendant II-XII grossly normal, alert, oriented x 3, responsive Skin: normal pigmentation, warm/dry, no diaphoresis Assessment/Plan Problem List: (1) Septic shock ICD Codes: A41.9 - Sepsis, unspecified organism; R65.21 - Severe sepsis with septic shock SNOMED: 34318269 (2) Anemia ICD Codes: D64.9 - Anemia, unspecified SNOMED: 575986752 (3) Encephalopathy ICD Codes: G93.40 - Encephalopathy, unspecified SNOMED: 89911942 (4) Drug (multiple) resistant infection SNOMED: 95304831, 20493573533998 (5) Urinary tract infection in male ICD Codes: N39.0 - Urinary tract infection, site not specified SNOMED: 96986082, 152766866 (6) Hypokalemia ICD Codes: E87.6 - Hypokalemia SNOMED: 14576664 (7) Femur fracture ICD Codes: S72.90XA - Unspecified fracture of unspecified femur, initial encounter for closed fracture SNOMED: 26898800 (8) Hyponatremia ICD Codes: E87.1 - Hypo-osmolality and hyponatremia SNOMED: 88847340 (9) Sepsis ICD Codes: A41.9 - Sepsis, unspecified organism SNOMED: 24242085 (10) UTI (urinary tract infection) ICD Codes: N39.0 - Urinary tract infection, site not specified SNOMED: 34252168 (11) Hypotension ICD Codes: I95.9 - Hypotension, unspecified SNOMED: 56502882 (12) Decubital ulcer ICD Codes: L89.90 - Pressure ulcer of unspecified site, unspecified stage SNOMED: 245842754 (13) SEAN (acute kidney injury) ICD Codes: N17.9 - Acute kidney failure, unspecified SNOMED: 0622290, 24025288 Status: stable Assessment/Plan: 59 year old man who presents from [facility] with weakness, encephalopathy, concern for septic shock, possible from UTI. #Acute Left Popliteal DVT -Pt has IVC filter -D/w Heme, cont eliquis 2.5 BID -monitor for signs of bleeding -d/c HSQ ppx given pt on eliquis #Fever #Septic shock- resolved #Proteus UTI #Actinobacter UTI, GPC UTI #Acute metabolic encephalopathy - resolved #Paraplegia #Sacral pressure ulcer, present on admit - Periods of hypotension and fever through hospitalization, VSS now - Covid 19 - negative - S/p vancomycin, cefepime, and flagyl - UCx on 11/19 positive for actinobacter and GPC - Spoke with surgery, reviewed CT findings, sacral pressure ulcer does not appear to be infected, ct findings consistent w/sacral ulcer - Cont Local wound care and offloading - Fever 101.7 on 11/20, repeat BCx ordered however pt refused labs - 10/20 CXR w/no acute process - fever 100.5 on 11/24, repeat BCx and labs ordered, d/w RN and ID, OK to draw from PICC line --> CBC with no leukocytosis - 11/24 BCx NGTD, cont to follow for final cx - Appreciate ID consult --> Zyvox and polymyxin #Sacral Decubitus Ulcer -CT abd/pel on 11/22/19 w/ subcutaneous gas -d/w with surgery, reviewed CT findings, sacral pressure ulcer does not appear to be infected, ct findings consistent w/sacral ulcer -wound care daily -appreciate wound care recs -abx per ID as above #Stool Impaction - improved -seen on CT abd on 11/22/2019 -s/p disimpaction by general sx with symptomatic improvement -cont Docusate-senna daily -PRN dulcolax #Fungal UTI - resolved, s/p treatment - Patient is high risk for fungemia - Diflucan 11/16 - 11/23 -Appreciate ID Consult #Sinus Bradycardia - resolved -continue telemetry -EP following 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 -Evaluated by endocrine for adrenal insufficiency -AM cortisol normal however patient continues to have labile BP and hyponatremia - Appreciate Nephrology consult - Appreciate Endocrine consult - Will continue Florinef, Salt Tab, and DDAVP - Continue Midodrine given labile BP - CT Brain without masses noted, will defer MRI - Refusing labs periodically #Hyponatremia - resolved #Hypokalemia - resolved -Intermittently refusing labs -Replete when necessary -On DDAVP intranasal #Anemia, acute on chronic - stable -s/p 2 units RBC 10/28 -Hematology following, no signs of overt bleeding - Continue Iron tab - Keep Hb >7 #Chronic Lower extremity pain 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 Appreciate referrals placed by CM. I spent 33 minutes on this patient's care today, and 21 mins was dedicated to counseling and care coordination. New to service and discussed plan of care with all consultants. Time of note doesn't reflect time of encounter. Art Hensley M.D. Dec 03, 2019 12:50
--- NOTE | 2019-12-03 13:18 | Surgery Progress Note ---
Surgery Progress Note Subjective Symptoms: improved Objective Last 24 Hour Vital Signs Date Time Temp Pulse Resp B/P (MAP) Pulse Ox O2 Delivery O2 Flow Rate FiO2 12/03/19 12:00 96.4 79 19 109/70 (83) 98 12/03/19 09:47 Room Air 12/03/19 08:00 98.2 84 18 116/90 (99) 96 12/03/19 04:00 98.8 72 18 94/57 (69) 97 12/02/19 21:00 Room Air 12/02/19 19:59 98.2 68 18 97/54 (68) 97 12/02/19 16:00 98.0 72 18 100/70 (80) 96 I&O Intake and Output 12/02/19 12/03/19 19:00 07:00 Intake Total 800 ml Output Total 800 ml Balance 800 ml -800 ml Other 800 ml Output Urine Total 800 ml # Voids 1 Dressing: saturated Cardiovascular: RSR, other Respiratory: decreased breath sounds, other Abdomen: soft, present bowel sounds, non-distended Extremities: no cyanosis Plan Problems: (1) Abdominal distension Assessment & Plan: abd distention soft non tender ostomy viable and reduced KUB ordered pending results improved comfortable no complaints okay for diet s tolerated d/c planning much improved There is an inferior vena cava filter in place. Bowel gas pattern is unremarkable. Considerable stool is seen in the transverse and distal colon. There is extensive pelvic deformity, with loss of the left femoral head, chronic dislocation of the left femur, and extensive pelvic deformity, particularly on the left. Adi project over the upper pelvis Impression: Possible constipation. pending placement Nonobstructed bowel gas pattern. Moderate fecal retention of the ascending colon and sigmoid colon. The degree of stool burden has increased from October 25, 2019. IVC filter, incidentally noted. Partial subluxation of the right hip. Osteotomy of the proximal left femur with deformity of the bilateral pubic rami and left acetabulum, unchanged. 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 Gheens Shaped, Full Thickness Sacral Pressure Injury which extends into L ischium. (L)15.4cm x (W)18cm x (D)2.4cm, Undermining clockwise 10-2 by 7.7cm @11o'clock. Base of wound is moist,pink with scattered slough at base of wound. Bone is palpable at the Base. No odor or exudate noted. Scattered partial thickness wounds and Serous filled blisters noted to R trochanteric /R Hip areas. Historical scar noted to L groin, L Hip L Buttocks. Bony protrusion noted at L Hip. Full thickness Pressure Injury R Ischium(L)5.4cm x(W)6.9cm x (D)1.8cm,Undermining clockwise 1-4 by 2.7cm @2o'clock, Tunneling@7o'clock 2.9cm. Base of wound is moist pink with scattered slough. Scattered slough noted along borders. NO odor or exudate noted. Stable dry eschar noted to medial R knee 0.7cm x (W)0.4cm. Periwound is erythematous and indurated. No elevation in skin temp noted. L heel has shaved appearance secondary to Hx of Pressure Injuries. Base of heel is pale pink. Bone is palpable. Small area of slough noted within compromised area(L)0.6cm x (W)0.8cm. L Heel Also has shaved appearance with hypertrophic scarring. Base of compromised area is pale pink, Bone is palpable, with scattered loose, dry and scaly skin. Patient's wound remains very large extensive and requires significant amount of care. Continued care of the wounds have been provided though patient is having continence through the anus at this time again despite diversion. Wounds remain saturated times and great nursing care is being provided unfortunately inevitable decline is still significantly potential given his overall condition. Tx.Plan: Cleanse Sacral Wound and R Ischial wounds with Dakin's 0.125% gian. Loosely pack wounds with Hydrogel impregnated Kerlix. Apply Moisture Barrier Paste periwound. Cover with ABD Pads secure with Tegaderm drsg.Daily and prn. Apply Triad Paste to R Hip/R trochanteric areas.Cover with Optifoam drsg. Change every 7 days and prn. Apply Betadine to Medial R Knee. Cover with Optifoam drsg. Change every 7 days and prn. Apply Betadine to R and L Heels. Cover each Heel with Optifoam drsgs. Change every 7 days and prn. Cover Bony Prominences as needed with Optifoam drsgs. Reposition at least every 2 [address] tolerated[address] Pillow between knees. Off-load heels with pillow. APM/SUMI Mattress overlay DAILY ESTIMATED NEEDS: Needs based on Advanced wounds, wt loss/ 40.18kg 35-40 kcals/kg 8378-1647 total kcals 1.5-2.0 g protein/kg 60-80 g total protein 25-35ml/kcal mL/kg 7883-2703 total fluid mLs NUTRITION DIAGNOSIS: Increased kcal/prot/micronutrients needs R/T wound healing and underweight status as evidenced by pt admitted w/ multiple advanced wounds, refer to WC eval, pt now w/ further 3% unfavorable wt loss, currently BMI underweight per guidelines, @62% of [place] Body Weight. 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 There is distention of the rectum with feces, rectal diameter 70 mm. There is some thickening of the rectal wall. The appendix is not definitely visualized, but no findings to suggest acute appendicitis are evident. There is considerable stool throughout the colon. There appears to be rectal incontinence of stool despite the diverting colostomy. Cornelius Salgado Dec 03, 2019 13:18
[2019-12-03 16:00] VITALS: BP 119/73
[2019-12-03 20:00] VITALS: BP 108/58
[2019-12-03] MEDS: Dyna-Hex 2% Top Sol 2oz TOPIC SCH (20:06)
[2019-12-04] VITALS: BP 113/65
[2019-12-04 04:00] VITALS: BP 100/62
[2019-12-04] MEDS: Midodrine 10mg tab ORAL SCH ×3 (05:18→21:14)
[2019-12-04] MEDS: HYDROcodone/Acetamin 5/325 tab ORAL PRN (05:19)
[2019-12-04 08:00] VITALS: BP 106/64
--- NOTE | 2019-12-04 08:40 | General Progress Note ---
Subjective Date patient seen: Dec 04, 2019 Time patient seen: 07:00 - AM Allergies: Coded Allergies: No Known Allergies (Unverified , 08/15/19) Subjective REVIEW OF SYSTEMS: Denies rash, fever, chills, sweating, dizziness, drowsiness, blurred vision, sore throat, or change in weight. No shortness of breath or chest pain. No nausea, vomiting, diarrhea, blood in stool or urine. HISTORY OF PRESENT ILLNESS: This is a 59-year-old male who has been seen on the Med/Surg floor of [facility]. Patient showing no signs of pain or distress. Has used 2 Montrose in the last 24hrs. No new complaints at this time. Objective Last 24 Hour Vital Signs Date Time Temp Pulse Resp B/P (MAP) Pulse Ox O2 Delivery O2 Flow Rate FiO2 12/04/19 08:00 98.9 94 20 106/64 (78) 98 12/04/19 04:00 99.0 89 20 100/62 (75) 98 12/04/19 00:00 97.0 67 18 113/65 (81) 95 12/03/19 21:00 Room Air 12/03/19 20:00 98.5 75 22 108/58 (75) 97 12/03/19 16:00 98.2 80 20 119/73 (88) 97 12/03/19 12:00 96.4 79 19 109/70 (83) 98 12/03/19 09:47 Room Air Intake and Output 12/03/19 12/04/19 19:00 07:00 Intake Total 840 ml Output Total 500 ml Balance 340 ml Intake Oral 840 ml Output Urine Total 500 ml # Voids 2 # Bowel Movements 1 1 Height (Feet): 5 Height (Inches): 7.00 Weight (Pounds): 114 Objective PHYSICAL EXAMINATION: GENERAL: Alert, awake, and oriented. LUNGS: Decreased breath sounds bilaterally. HEART: S1, S2 regular. ABDOMEN: Colostomy bag noted. EXTREMITIES: Upper and lower extremity range of motion is decreased due to the patient's condition. Contracture is noted. Sensory is reduced. Reflexes are not obtainable. No adenopathy. Assessment/Plan Assessment/Plan: (1) Sacral decubitus ulcer (2) Paraplegia (3) Neuropathic pain Patient to be continued on Montrose and Neurontin D/w Dr. Celaya and he concurred. Danny Raymundo Dec 04, 2019 08:40
[2019-12-04] MEDS: Sodium Chloride 1gm Tab ORAL SCH ×3 (08:41→17:01)
[2019-12-04] MEDS: Zinc Sulfate 220mg ORAL SCH (08:41)
[2019-12-04] MEDS: Docusate Sod/Senna tab ORAL SCH ×2 (08:41→17:01)
[2019-12-04] MEDS: Eliquis 2.5mg tablet ORAL SCH ×2 (08:41→17:01)
[2019-12-04] MEDS: Desmopressin Nasal 5ml NASAL SCH (08:41)
[2019-12-04] MEDS: Dakin's 0.125% Soln (Quarter Strength) 16oz TOPIC SCH (08:42)
--- NOTE | 2019-12-04 08:57 | Nephrology Progress Note ---
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 - improved with desmporessin #Shock #UTI # infected sacral pressure ulcer #Acute metabolic encephalopathy #Paraplegia #Sacral pressure ulcer #Hypokalemia #Anemia - continue florinef 0.1mg daily -Continue desmopressin nasal - continue salt tabs 1g TID - continue midodrine 10 TID - endocrine eval noted - r/o adrenal insuffiency - antibiotics per ID - monitor lytes - avoid nephrotoxins - daily weights - strict I&Os time spent 40 min- greater than 50% on care coordination and counseling Subjective ROS Limited/Unobtainable: No Constitutional: Reports: weakness HEENT: Denies: no symptoms, eye pain, blurred vision, tearing, double vision, ear pain, ear discharge, nose pain, nose congestion, throat pain, throat swelling, mouth pain, mouth swelling, other Genitourinary: Denies: no symptoms, burning, discharge, frequency, flank pain, hematuria, incontinence, pain, urgency, other Neurologic/Psychiatric: Denies: no symptoms, anxiety, depressed, emotional problems, headache, numbness, paresthesia, pre-existing deficit, seizure, tingling, tremors, weakness, other Subjective labs reviewed on florinef 0.1mg daily Bp stable on nasal desmopressin on salt tabs Objective Objective Last 24 Hour Vital Signs Date Time Temp Pulse Resp B/P (MAP) Pulse Ox O2 Delivery O2 Flow Rate FiO2 12/04/19 08:00 98.9 94 20 106/64 (78) 98 12/04/19 04:00 99.0 89 20 100/62 (75) 98 12/04/19 00:00 97.0 67 18 113/65 (81) 95 12/03/19 21:00 Room Air 12/03/19 20:00 98.5 75 22 108/58 (75) 97 12/03/19 16:00 98.2 80 20 119/73 (88) 97 12/03/19 12:00 96.4 79 19 109/70 (83) 98 12/03/19 09:47 Room Air Intake and Output 12/03/19 12/04/19 19:00 07:00 Intake Total 840 ml Output Total 500 ml Balance 340 ml Intake Oral 840 ml Output Urine Total 500 ml # Voids 2 # Bowel Movements 1 1 Height (Feet): 5 Height (Inches): 7.00 Weight (Pounds): 114 Sienna Georges M.D. Dec 04, 2019 08:57
[2019-12-04 09:42] LABS: BASOPHILS % (AUTO) 1.6 % (0.0-2.0); EOSINOPHILS % (AUTO) 1.3 % (0.0-3.0); HEMATOCRIT 27.4 % (42.0-52.0); HEMOGLOBIN 8.7 G/DL (14.2-18.0); LYMPHOCYTES % (AUTO) 24.8 % (20.0-45.0); MEAN CORPUSCULAR VOLUME 82 FL (80-99); MONOCYTES % (AUTO) 12.7 % (1.0-10.0); NEUTROPHILS % (AUTO) 59.7 % (45.0-75.0); PLATELET COUNT 426 K/UL (150-450); RED BLOOD COUNT 3.34 M/UL (4.70-6.10); RED CELL DISTRIBUTION WIDTH 14.9 % (11.6-14.8); WHITE BLOOD COUNT 9.5 K/UL (4.8-10.8)
--- NOTE | 2019-12-04 09:45 | Hematology/Onc Progress Note ---
Assessment/Plan Assessment/Plan # Acute left upstream popliteal vein deep venous thrombosis IVC filter in place --> given acute nature, will continue eliquis --> HOWEVER, if drop in h/h consider to hold eliquis as has ivc in place --> IVC Filter placed earlier # Anemia rule out gi bleed, as well as iron deficiency --> hgb 8.2-->7.2-->7.1->6.9-->8.6-->8.3-->9.3-->8.3-->9.3--.9.2->8.7->8 --> anemia panel ordered--> cw acd --> occult blood pending-->neg --> gi eval prn --> transfuse as needed --> transfuse 2 units 10/27 --> po iron to continue # Coagulopathy with elev ptt/inr --> vitk and ffp as needed --> no bleeding noted at this time # Thrombocytosis likely reactive process --> plt 398-->608-->605 --> abx as needed # Sepsis due to uti, with Hypotension likely due to septic shock. Was diuresing heavily at 300 mL an hour. --> Continue on midodrine and dopamine. --> ABX vancomycin and meropenem and amikacin-->christel/vanc/difluc-->vanc/linezolid --> before requires pressors --> as per cards # Bradycardia. --> per cards # Paraplegia. # LLQ colostomy # Decubitus ulcers with sacral decubitus. # Dvt ppx eliquis Appreciate consultation and chandrakant RN Subjective Constitutional: Denies: no symptoms, chills, fever, malaise, weakness, other HEENT: Denies: no symptoms, eye pain, blurred vision, tearing, double vision, ear pain, ear discharge, nose pain, nose congestion, throat pain, throat swelling, mouth pain, mouth swelling, other Cardiovascular: Denies: no symptoms, chest pain, edema, irregular heart rate, lightheadedness, palpitations, syncope, other Respiratory: Denies: no symptoms, cough, shortness of breath, SOB with excertion, SOB at rest, sputum, wheezing, other Genitourinary: Denies: no symptoms, burning, discharge, frequency, flank pain, hematuria, incontinence, pain, urgency, other Neurologic/Psychiatric: Denies: no symptoms, anxiety, depressed, emotional problems, headache, numbness, paresthesia, pre-existing deficit, seizure, tingling, tremors, weakness, other Endocrine: Denies: no symptoms, excessive sweating, flushing, intolerance to cold, intolerance to heat, increased hunger, increased thirst, increased urine, unexplained weight gain, unexplained weight loss, other Hematologic/Lymphatic: Denies: no symptoms, anemia, easy bleeding, easy bruising, adenopathy, other Allergies: Coded Allergies: No Known Allergies (Unverified , 08/15/19) Subjective 10/27 labs again refused this am, yesterday was low, chandrakant england in icu 10/28 remains in icu, for 2units prbc this am, chandrakant england, no other events 10/29 s/p prbc, tolerated it well, no bleeding, on 1mcg levo, in icu 10/30 on abx, on levo and overnight no other events, chandrakant englandbusiness attorney\ 10/31 wounds improved, labs noted, no bleeding, hgb lower, refusing care/wound care 11/01 labs noted, no bleeding, no hematochezia, no hemoptysis, cbc ordered 11/02 meds reviewed, labs noted, no bleeding, chandrakant eng[place], no major changes, hgb 8.3 11/04 labs have been noted, no bleeding, meds reviewed, no hemolysis 11/05 functional colostomy llq, no bleeding, cbc is pending for am 11/06 labs have been refused, hgb 8.3, no bleeding, wbc is higher in am 11/07 labs have initially been refused, no bleeding in am, wbc 13, on abx 11/08 labs reviewed, no bleeding, chandrakant england, cbc is pending for am 11/09 is on vanc/difl/christel, no other changes, cbc and bmp are noted 11/11 has been asymptomatic, eating breakfast, hgb 9.3, on abx 11/12 labs are noted, no bleeding, chandrakant eng[place], no major changes, abx 11/13 is currently on christel and vanc, chandrakant eng[place], no major bleeding, on hep sq 11/14 labs are noted, does not want to be changed currently, cbc/bmp ordered 11/15 labs reviewed, c/o pain at picc line, no bleeding, meds noted, hgb 8.7 11/16 labs are noted, has been cleared, for dc planning to snf 11/[address], no bleeding, meds noted, continues to be on heparin sq 11/19 labs noted, no bleeding, comfortable, cbc is ntoed and bmp for am labs 11/[address], with dressing change as needed, meds noted, labs reviewed 11/[address], is on vanc/christel seen by id, no major changes 11/22 labs reviewed, with colostomy, donohue catheter, ct of a/p noted 11/23 meds noted, no bleeding, have ordered for eliquis and chandrakant Razo in am 11/25 labs noted, no bleeding, on blood thinner is on vanc/linezolid, hgb 8 11/26 remains on eliquis, no bleeding, meds noted, eating breakfast this am 11/27 low bp, ns given, meds are reviewed, no major hemolysis, remains on po iron 11/28 on eliquis, ferrous suldate, no bleeding, comfortable 12/01 labs are noted, on anticaog, also hgb 8, no bleeding, comfortable 12/02 is without events, no bleeding, labs reviewed, no bleeding, meds noted 12/03 initially refused labs but now feeling better, cbc pending for am Objective Objective Current Medications Medications (Trade) Dose Ordered Sig/Mya Route PRN Reason Start Time Stop Time Status Last Admin Dose Admin Acetaminophen (Tylenol) 650 mg Q4H PRN ORAL Temp >100.5 11/05/19 16:00 12/05/19 15:59 11/25/19 04:15 Acetaminophen/ Hydrocodone Bitart ([place] 5/325) 1 tab Q6H PRN ORAL Severe Pain (Pain Scale 7-10) 12/04/19 10:36 12/11/19 10:35 Apixaban (Eliquis) 2.5 mg BID ORAL 11/24/19 09:00 02/22/20 08:59 12/04/19 08:41 Bisacodyl (Dulcolax) 10 mg DAILYPRN PRN RECTAL Constipation 11/24/19 07:45 02/22/20 07:44 Chlorhexidine Gluconate (Simran-Hex 2%) 1 applic DAILY@2000 TOPIC 11/13/19 20:00 02/11/20 19:59 12/03/19 20:06 Desmopressin Acetate (Ddavp) 1 spray DAILY NASAL 11/14/19 09:00 02/07/20 17:59 12/04/19 08:41 Dextrose (Dextrose 50%) 25 ml Q30M PRN IV Hypoglycemia 11/05/19 13:30 01/21/20 17:29 Dextrose (Dextrose 50%) 50 ml Q30M PRN IV Hypoglycemia 11/05/19 13:30 01/21/20 17:29 Famotidine (Pepcid) 20 mg DAILY ORAL 11/06/19 09:00 01/28/20 09:29 12/04/19 08:41 Ferrous Sulfate (Feosol) 325 mg DAILY ORAL 11/06/19 09:00 01/22/20 08:59 12/04/19 08:41 Fludrocortisone Acetate (Florinef) 0.1 mg DAILY ORAL 11/15/19 09:00 12/15/19 08:59 12/04/19 08:41 Magnesium Hydroxide (Mom) 30 ml HSPRN PRN ORAL Constipation 11/13/19 11:15 12/13/19 11:14 Midodrine (Pro-Amatine) 10 mg EVERY 8 HOURS ORAL 11/05/19 14:00 01/21/20 17:59 12/04/19 05:18 Naloxone HCl (Narcan) 0.2 mg Q2M PRN IVP RESPRITORY DEPRESSION RR<8 11/24/19 10:15 02/22/20 10:14 Senna/Docusate Sodium (Haley-Colace) 1 tab TWICE A DAY ORAL 11/24/19 09:00 12/24/19 08:59 12/04/19 08:41 Sodium Hypochlorite (Dakin's Quarter Strength) 1 applic DAILY TOPIC 12/01/19 09:00 12/31/19 08:59 12/04/19 08:42 Sodium Chloride (NaCl) 1 gm THREE TIMES A DAY ORAL 11/09/19 13:00 12/09/19 12:59 12/04/19 08:41 Zinc Sulfate (Zinc Sulfate) 220 mg DAILY ORAL 11/06/19 09:00 01/22/20 08:59 12/04/19 08:41 Last 24 Hour Vital Signs Date Time Temp Pulse Resp B/P (MAP) Pulse Ox O2 Delivery O2 Flow Rate FiO2 12/04/19 08:00 98.9 94 20 106/64 (78) 98 12/04/19 04:00 99.0 89 20 100/62 (75) 98 12/04/19 00:00 97.0 67 18 113/65 (81) 95 12/03/19 21:00 Room Air 12/03/19 20:00 98.5 75 22 108/58 (75) 97 12/03/19 16:00 98.2 80 20 119/73 (88) 97 12/03/19 12:00 96.4 79 19 109/70 (83) 98 12/03/19 09:47 Room Air 12/03/19 08:00 98.2 84 18 116/90 (99) 96 12/03/19 04:00 98.8 72 18 94/57 (69) 97 12/02/19 21:00 Room Air 12/02/19 19:59 98.2 68 18 97/54 (68) 97 12/02/19 16:00 98.0 72 18 100/70 (80) 96 12/02/19 11:55 97.5 70 18 99/67 (78) 97 Intake and Output 12/03/19 12/04/19 19:00 07:00 Intake Total 840 ml Output Total 500 ml Balance 340 ml Intake Oral 840 ml Output Urine Total 500 ml # Voids 2 # Bowel Movements 1 1 Labs Test 12/04/19 09:10 Height (Feet): 5 Height (Inches): 7.00 Weight (Pounds): 114 Objective Physical Exam General Appearance: lethargic Lines, tubes and drains: peripheral, central line HEENT: normocephalic Neck: non-tender, normal alignment Respiratory/Chest: lungs clear Cardiovascular/Chest: normal peripheral pulses, normal rate, regular rhythm Abdomen: normal bowel sounds, non tender ++ llq colostomy : ++Martínez Geiger MD Dec 04, 2019 09:45
--- NOTE | 2019-12-04 09:56 | Surgery Progress Note ---
Surgery Progress Note Subjective Additional Comments states he is well tolerating diet +BM had dark through ostomy loose via anus Objective Last 24 Hour Vital Signs Date Time Temp Pulse Resp B/P (MAP) Pulse Ox O2 Delivery O2 Flow Rate FiO2 12/04/19 08:00 98.9 94 20 106/64 (78) 98 12/04/19 04:00 99.0 89 20 100/62 (75) 98 12/04/19 00:00 97.0 67 18 113/65 (81) 95 12/03/19 21:00 Room Air 12/03/19 20:00 98.5 75 22 108/58 (75) 97 12/03/19 16:00 98.2 80 20 119/73 (88) 97 12/03/19 12:00 96.4 79 19 109/70 (83) 98 I&O Intake and Output 12/03/19 12/04/19 19:00 07:00 Intake Total 840 ml Output Total 500 ml Balance 340 ml Intake Oral 840 ml Output Urine Total 500 ml # Voids 2 # Bowel Movements 1 1 Dressing: saturated, other Wound: other Cardiovascular: RSR Respiratory: decreased breath sounds Abdomen: soft, non-tender, present bowel sounds, other, non-distended Extremities: no edema, no tenderness, no cyanosis Laboratory Tests Test 12/04/19 09:10 White Blood Count 9.5 K/UL (4.8-10.8) Red Blood Count 3.34 M/UL (4.70-6.10) L Hemoglobin 8.7 G/DL (14.2-18.0) L Hematocrit 27.4 % (42.0-52.0) L Mean Corpuscular Volume 82 FL (80-99) Mean Corpuscular Hemoglobin 26.1 PG (27.0-31.0) L Mean Corpuscular Hemoglobin Concent 31.8 G/DL (32.0-36.0) L Red Cell Distribution Width 14.9 % (11.6-14.8) H Platelet Count 426 K/UL (150-450) Mean Platelet Volume 4.4 FL (6.5-10.1) L Neutrophils (%) (Auto) 59.7 % (45.0-75.0) Lymphocytes (%) (Auto) 24.8 % (20.0-45.0) Monocytes (%) (Auto) 12.7 % (1.0-10.0) H Eosinophils (%) (Auto) 1.3 % (0.0-3.0) Basophils (%) (Auto) 1.6 % (0.0-2.0) Plan Problems: (1) Abdominal distension Assessment & Plan: abd distention soft non tender ostomy viable and reduced KUB ordered pending results improved comfortable no complaints okay for diet s tolerated d/c planning much improved There is an inferior vena cava filter in place. Bowel gas pattern is unremarkable. Considerable stool is seen in the transverse and distal colon. There is extensive pelvic deformity, with loss of the left femoral head, chronic dislocation of the left femur, and extensive pelvic deformity, particularly on the left. [place] project over the upper pelvis Impression: Possible constipation. pending placement Nonobstructed bowel gas pattern. Moderate fecal retention of the ascending colon and sigmoid colon. The degree of stool burden has increased from October 25, 2019. IVC filter, incidentally noted. Partial subluxation of the right hip. Osteotomy of the proximal left femur with deformity of the bilateral pubic rami and left acetabulum, unchanged. 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 [place] Shaped, Full Thickness Sacral Pressure Injury which extends into L ischium. (L)15.4cm x (W)18cm x (D)2.4cm, Undermining clockwise 10-2 by 7.7cm @11o'clock. Base of wound is moist,pink with scattered slough at base of wound. Bone is palpable at the Base. No odor or exudate noted. Scattered partial thickness wounds and Serous filled blisters noted to R trochanteric /R Hip areas. Historical scar noted to L groin, L Hip L Buttocks. Bony protrusion noted at L Hip. Full thickness Pressure Injury R Ischium(L)5.4cm x(W)6.9cm x (D)1.8cm,Undermining clockwise 1-4 by 2.7cm @2o'clock, Tunneling@7o'clock 2.9cm. Base of wound is moist pink with scattered slough. Scattered slough noted along borders. NO odor or exudate noted. Stable dry eschar noted to medial R knee 0.7cm x (W)0.4cm. Periwound is erythematous and indurated. No elevation in skin temp noted. L heel has shaved appearance secondary to Hx of Pressure Injuries. Base of heel is pale pink. Bone is palpable. Small area of slough noted within compromised area(L)0.6cm x (W)0.8cm. L Heel Also has shaved appearance with hypertrophic scarring. Base of compromised area is pale pink, Bone is palpable, with scattered loose, dry and scaly skin. Patient's wound remains very large extensive and requires significant amount of care. Continued care of the wounds have been provided though patient is having continence through the anus at this time again despite diversion. Wounds remain saturated times and great nursing care is being provided unfortunately inevitable decline is still significantly potential given his overall condition. Tx.Plan: Cleanse Sacral Wound and R Ischial wounds with Dakin's 0.125% gian. Loosely pack wounds with Hydrogel impregnated Kerlix. Apply Moisture Barrier Paste periwound. Cover with ABD Pads secure with Tegaderm drsg.Daily and prn. Apply Triad Paste to R Hip/R trochanteric areas.Cover with Optifoam drsg. Change every 7 days and prn. Apply Betadine to Medial R Knee. Cover with Optifoam drsg. Change every 7 days and prn. Apply Betadine to R and L Heels. Cover each Heel with Optifoam drsgs. Change every 7 days and prn. Cover Bony Prominences as needed with Optifoam drsgs. Reposition at least every 2 [address] tolerated[address] Pillow between knees. Off-load heels with pillow. APM/SUMI Mattress overlay DAILY ESTIMATED NEEDS: Needs based on Advanced wounds, wt loss/ 40.18kg 35-40 kcals/kg 4652-5193 total kcals 1.5-2.0 g protein/kg 60-80 g total protein 25-35ml/kcal mL/kg 5293-4314 total fluid mLs NUTRITION DIAGNOSIS: Increased kcal/prot/micronutrients needs R/T wound healing and underweight status as evidenced by pt admitted w/ multiple advanced wounds, refer to WC jair, pt now w/ further 3% unfavorable wt loss, currently BMI underweight per guidelines, @62% of [place] Body Weight. CURRENT DIET: Regular PO DIET RECOMMENDATIONS: REGULAR, texture as tolerated or per [employer] + Ensure Enlive TID w/ meals ADDITIONAL RECOMMENDATIONS: * Per SNF: HT=66" WT=88lbs; -> vs current EMR wt =120# -> Recalibrate bed scale for accurate wts * Continue Ensure TID, whole milk TID w/ meals * Monitor for continued improved/good Po intake * Wound healing:add MVI w/ min qdaily Continue w/ ZnSO4, Vit C, and Amari BID * Monitor Na, need for fluid restriction - (132 improved, on nacl) (15) SEAN (acute kidney injury) (16) Ileostomy prolapse Assessment & Plan: currently reduced but abd distended pending films films reviewed improved okay for diet d/c planning There is what appears to be a diverting colostomy of the distal sigmoid in the left lower quadrant. There is distention of the rectum with feces, rectal diameter 70 mm. There is some thickening of the rectal wall. The appendix is not definitely visualized, but no findings to suggest acute appendicitis are evident. There is considerable stool throughout the colon. There appears to be rectal incontinence of stool despite the diverting colostomy. Cornelius Salgado Dec 04, 2019 09:56
--- NOTE | 2019-12-04 10:21 | Pulmonology Progress Note ---
Subjective ROS Limited/Unobtainable: No Interval Events: no fever or leucocytosis HEENT: Repors: no symptoms Respiratory: Reports: no symptoms Cardiovascular: Reports: no symptoms Gastrointestinal/Abdominal: Denies: nausea, vomiting, diarrhea Genitourinary: Reports: no symptoms Psychiatric: Denies: depression Skin: Denies: rash Musculoskeletal: Denies: pain Allergies: Coded Allergies: No Known Allergies (Unverified , 08/15/19) All Systems: reviewed and negative except above Objective Last 24 Hour Vital Signs Date Time Temp Pulse Resp B/P (MAP) Pulse Ox O2 Delivery O2 Flow Rate FiO2 12/04/19 08:00 98.9 94 20 106/64 (78) 98 12/04/19 04:00 99.0 89 20 100/62 (75) 98 12/04/19 00:00 97.0 67 18 113/65 (81) 95 12/03/19 21:00 Room Air 12/03/19 20:00 98.5 75 22 108/58 (75) 97 12/03/19 16:00 98.2 80 20 119/73 (88) 97 12/03/19 12:00 96.4 79 19 109/70 (83) 98 Intake and Output 12/03/19 12/04/19 19:00 07:00 Intake Total 840 ml Output Total 500 ml Balance 340 ml Intake Oral 840 ml Output Urine Total 500 ml # Voids 2 # Bowel Movements 1 1 General Appearance: no acute distress HEENT: normocephalic Respiratory: chest wall non-tender, lungs clear Cardiovascular: normal peripheral pulses, regular rhythm Abdomen: normal bowel sounds Extremities: no cyanosis Laboratory Tests 12/04/19 09:10: White Blood Count 9.5, Red Blood Count 3.34L, Hemoglobin 8.7L, Hematocrit 27.4L, Mean Corpuscular Volume 82, Mean Corpuscular Hemoglobin 26.1L, Mean Corpuscular Hemoglobin Concent 31.8L, Red Cell Distribution Width 14.9H, Platelet Count 426, Mean Platelet Volume 4.4L, Neutrophils (%) (Auto) 59.7, Lymphocytes (%) (Auto) 24.8, Monocytes (%) (Auto) 12.7H, Eosinophils (%) (Auto) 1.3, Basophils (%) (Auto) 1.6 Current Medications Medications (Trade) Dose Ordered Sig/Mya Route PRN Reason Start Time Stop Time Status Last Admin Dose Admin Acetaminophen (Tylenol) 650 mg Q4H PRN ORAL Temp >100.5 11/05/19 16:00 12/05/19 15:59 11/25/19 04:15 Acetaminophen/ Hydrocodone Bitart ([place] 5/325) 1 tab Q6H PRN ORAL Severe Pain (Pain Scale 7-10) 12/04/19 10:36 12/11/19 10:35 Apixaban (Eliquis) 2.5 mg BID ORAL 11/24/19 09:00 02/22/20 08:59 12/04/19 08:41 Bisacodyl (Dulcolax) 10 mg DAILYPRN PRN RECTAL Constipation 11/24/19 07:45 02/22/20 07:44 Chlorhexidine Gluconate (Simran-Hex 2%) 1 applic DAILY@1999 TOPIC 11/13/19 20:00 02/11/20 19:59 12/03/19 20:06 Desmopressin Acetate (Ddavp) 1 spray DAILY NASAL 11/14/19 09:00 02/07/20 17:59 12/04/19 08:41 Dextrose (Dextrose 50%) 25 ml Q30M PRN IV Hypoglycemia 11/05/19 13:30 01/21/20 17:29 Dextrose (Dextrose 50%) 50 ml Q30M PRN IV Hypoglycemia 11/05/19 13:30 01/21/20 17:29 Famotidine (Pepcid) 20 mg DAILY ORAL 11/06/19 09:00 01/28/20 09:29 12/04/19 08:41 Ferrous Sulfate (Feosol) 325 mg DAILY ORAL 11/06/19 09:00 01/22/20 08:59 12/04/19 08:41 Fludrocortisone Acetate (Florinef) 0.1 mg DAILY ORAL 11/15/19 09:00 12/15/19 08:59 12/04/19 08:41 Magnesium Hydroxide (Mom) 30 ml HSPRN PRN ORAL Constipation 11/13/19 11:15 12/13/19 11:14 Midodrine (Pro-Amatine) 10 mg EVERY 8 HOURS ORAL 11/05/19 14:00 01/21/20 17:59 9/21/20 05:18 Naloxone HCl (Narcan) 0.2 mg Q2M PRN IVP RESPRITORY DEPRESSION RR<8 11/24/19 10:15 02/22/20 10:14 Senna/Docusate Sodium (Haley-Colace) 1 tab TWICE A DAY ORAL 11/24/19 09:00 12/24/19 08:59 12/04/19 08:41 Sodium Hypochlorite (Dakin's Quarter Strength) 1 applic DAILY TOPIC 12/01/19 09:00 12/31/19 08:59 12/04/19 08:42 Sodium Chloride (NaCl) 1 gm THREE TIMES A DAY ORAL 11/09/19 13:00 12/09/19 12:59 12/04/19 08:41 Zinc Sulfate (Zinc Sulfate) 220 mg DAILY ORAL 11/06/19 09:00 01/22/20 08:59 12/04/19 08:41 Assessment/Plan Assessment/Plan IMPRESSION: 1. Septic shock. resolved 2. Complicated UTI with history of previous ESBL infection. 3. Paraplegia. 4. Sacral decubitus. 5. shelter resident. DISCUSSION: DVT and GI prophylaxes. Continue Oxygen prn, doing well on room air at this time. DC planning Haily Monzon Omar Syed MD Dec 04, 2019 10:21
--- NOTE | 2019-12-04 10:43 | Cardiology Progress Note ---
Assessment/Plan Status: doing well Assessment/Plan Assessment/Plan Assessment/Plan 1. S/P Septic shock. on Midodrine, iv fluids and antibiotic 2. Bradycardia. Resolved. 3. Paraplegia. 4. Urinary tract infection, 5. Decubitus ulcers with sacral decubitus. 6. S/P Ileostomy/ 7. Polyuria, DI. On NS, Salt tablets Subjective Cardiovascular: Reports: no symptoms Respiratory: Reports: no symptoms Gastrointestinal/Abdominal: Reports: no symptoms Genitourinary: Reports: no symptoms Subjective COVERAGE FOR TOUIE Objective Last 24 Hour Vital Signs Date Time Temp Pulse Resp B/P (MAP) Pulse Ox O2 Delivery O2 Flow Rate FiO2 12/04/19 08:00 98.9 94 20 106/64 (78) 98 12/04/19 04:00 99.0 89 20 100/62 (75) 98 12/04/19 00:00 97.0 67 18 113/65 (81) 95 12/03/19 21:00 Room Air 12/03/19 20:00 98.5 75 22 108/58 (75) 97 12/03/19 16:00 98.2 80 20 119/73 (88) 97 12/03/19 12:00 96.4 79 19 109/70 (83) 98 General Appearance: no apparent distress, alert EENT: PERRL/EOMI, normal ENT inspection, TMs normal Neck: normal alignment, supple Rhythm: NSR Cardiovascular: normal peripheral pulses, normal rate, regular rhythm Respiratory/Chest: chest wall non-tender, lungs clear, normal breath sounds Abdomen: non tender Neurologic: corporate development analyst II-XII grossly normal, no motor/sensory deficits Intake and Output 12/03/19 12/04/19 19:00 07:00 Intake Total 840 ml Output Total 500 ml Balance 340 ml Intake Oral 840 ml Output Urine Total 500 ml # Voids 2 # Bowel Movements 1 1 Laboratory Tests Test 12/04/19 09:10 White Blood Count 9.5 K/UL (4.8-10.8) Red Blood Count 3.34 M/UL (4.70-6.10) L Hemoglobin 8.7 G/DL (14.2-18.0) L Hematocrit 27.4 % (42.0-52.0) L Mean Corpuscular Volume 82 FL (80-99) Mean Corpuscular Hemoglobin 26.1 PG (27.0-31.0) L Mean Corpuscular Hemoglobin Concent 31.8 G/DL (32.0-36.0) L Red Cell Distribution Width 14.9 % (11.6-14.8) H Platelet Count 426 K/UL (150-450) Mean Platelet Volume 4.4 FL (6.5-10.1) L Neutrophils (%) (Auto) 59.7 % (45.0-75.0) Lymphocytes (%) (Auto) 24.8 % (20.0-45.0) Monocytes (%) (Auto) 12.7 % (1.0-10.0) H Eosinophils (%) (Auto) 1.3 % (0.0-3.0) Basophils (%) (Auto) 1.6 % (0.0-2.0) Anthony Gutiérrez MD Dec 04, 2019 10:43
--- NOTE | 2019-12-04 10:50 | General Progress Note ---
Subjective Date patient seen: Dec 04, 2019 Time patient seen: 10:00 ROS Limited/Unobtainable: Yes Constitutional: Denies: fever, malaise, weakness HEENT: Denies: ear pain, ear discharge, nose pain Cardiovascular: Denies: palpitations, syncope Respiratory: Denies: shortness of breath, SOB at rest Gastrointestinal/Abdominal: Denies: abdominal pain, black stools, tarry stools, blood in stool Genitourinary: Denies: frequency, flank pain, hematuria Neurologic/Psychiatric: Denies: headache, numbness, paresthesia, pre-existing deficit Endocrine: Denies: flushing, intolerance to cold, increased hunger Allergies: Coded Allergies: No Known Allergies (Unverified , 08/15/19) Subjective No complaints. feeling tired and does nto want to be bothered. Objective Last 24 Hour Vital Signs Date Time Temp Pulse Resp B/P (MAP) Pulse Ox O2 Delivery O2 Flow Rate FiO2 12/04/19 10:46 Room Air 12/04/19 08:00 98.9 94 20 106/64 (78) 98 12/04/19 04:00 99.0 89 20 100/62 (75) 98 12/04/19 00:00 97.0 67 18 113/65 (81) 95 12/03/19 21:00 Room Air 12/03/19 20:00 98.5 75 22 108/58 (75) 97 12/03/19 16:00 98.2 80 20 119/73 (88) 97 12/03/19 12:00 96.4 79 19 109/70 (83) 98 Intake and Output 12/03/19 12/04/19 19:00 07:00 Intake Total 840 ml Output Total 500 ml Balance 340 ml Intake Oral 840 ml Output Urine Total 500 ml # Voids 2 # Bowel Movements 1 1 Laboratory Tests 12/04/19 09:10: White Blood Count 9.5, Red Blood Count 3.34L, Hemoglobin 8.7L, Hematocrit 27.4L, Mean Corpuscular Volume 82, Mean Corpuscular Hemoglobin 26.1L, Mean Corpuscular Hemoglobin Concent 31.8L, Red Cell Distribution Width 14.9H, Platelet Count 426, Mean Platelet Volume 4.4L, Neutrophils (%) (Auto) 59.7, Lymphocytes (%) (Auto) 24.8, Monocytes (%) (Auto) 12.7H, Eosinophils (%) (Auto) 1.3, Basophils (%) (Auto) 1.6 Height (Feet): 5 Height (Inches): 7.00 Weight (Pounds): 114 General Appearance: no apparent distress, alert, lethargic EENT: PERRL/EOMI, normal ENT inspection, TMs normal Neck: non-tender, normal alignment, supple, normal inspection Cardiovascular: normal peripheral pulses, normal rate, regular rhythm, regularly irregular Respiratory/Chest: lungs clear, normal breath sounds, no respiratory distress, no accessory muscle use Abdomen: normal bowel sounds, non tender, soft, no organomegaly, no mass Pelvis: normal external exam Edema: no edema noted Arm (L), no edema noted Arm (R), no edema noted Leg (L), no edema noted Leg (R), no edema noted Pedal (L), no edema noted Pedal (R), no edema noted Generalized Neurologic: clinical programmer II-XII grossly normal, oriented x 3, responsive, normal mood/affect Skin: normal pigmentation, warm/dry, no diaphoresis Assessment/Plan Problem List: (1) Septic shock ICD Codes: A41.9 - Sepsis, unspecified organism; R65.21 - Severe sepsis with septic shock SNOMED: 99117126 (2) Anemia ICD Codes: D64.9 - Anemia, unspecified SNOMED: 178275042 (3) Encephalopathy ICD Codes: G93.40 - Encephalopathy, unspecified SNOMED: 14009500 (4) Drug (multiple) resistant infection SNOMED: 24631910, 65050256177985 (5) Urinary tract infection in male ICD Codes: N39.0 - Urinary tract infection, site not specified SNOMED: 21318500, 956707312 (6) Hypokalemia ICD Codes: E87.6 - Hypokalemia SNOMED: 82096757 (7) Femur fracture ICD Codes: S72.90XA - Unspecified fracture of unspecified femur, initial encounter for closed fracture SNOMED: 28386571 (8) Hyponatremia ICD Codes: E87.1 - Hypo-osmolality and hyponatremia SNOMED: 60884759 (9) Sepsis ICD Codes: A41.9 - Sepsis, unspecified organism SNOMED: 96680600 (10) UTI (urinary tract infection) ICD Codes: N39.0 - Urinary tract infection, site not specified SNOMED: 61589475 (11) Hypotension ICD Codes: I95.9 - Hypotension, unspecified SNOMED: 16316118 (12) Decubital ulcer ICD Codes: L89.90 - Pressure ulcer of unspecified site, unspecified stage SNOMED: 953261043 (13) SEAN (acute kidney injury) ICD Codes: N17.9 - Acute kidney failure, unspecified SNOMED: 8947405, 95441478 Status: doing well Assessment/Plan: 59 year old man who presents from [facility] with weakness, encephalopathy, concern for septic shock, possible from UTI. #Acute Left Popliteal DVT -Pt has IVC filter -D/w Heme, cont eliquis 2.5 BID -monitor for signs of bleeding -d/c HSQ ppx given pt on eliquis #Fever #Septic shock- resolved #Proteus UTI #Actinobacter UTI, GPC UTI #Acute metabolic encephalopathy - resolved #Paraplegia #Sacral pressure ulcer, present on admit - Periods of hypotension and fever through hospitalization, VSS now - Covid 19 - negative - S/p vancomycin, cefepime, and flagyl - UCx on 11/19 positive for actinobacter and GPC - Spoke with surgery, reviewed CT findings, sacral pressure ulcer does not appear to be infected, ct findings consistent w/sacral ulcer - Cont Local wound care and offloading - Fever 101.7 on 11/20, repeat BCx ordered however pt refused labs - 10/20 CXR w/no acute process - fever 100.5 on 11/24, repeat BCx and labs ordered, d/w RN and ID, OK to draw from PICC line --> CBC with no leukocytosis - 11/24 BCx NGTD, cont to follow for final cx - Appreciate ID consult --> Zyvox and polymyxin #Sacral Decubitus Ulcer -CT abd/pel on 11/22/19 w/ subcutaneous gas -d/w with surgery, reviewed CT findings, sacral pressure ulcer does not appear to be infected, ct findings consistent w/sacral ulcer -wound care daily -appreciate wound care recs -abx per ID as above #Stool Impaction - improved -seen on CT abd on 11/22/2019 -s/p disimpaction by general sx with symptomatic improvement -cont Docusate-senna daily -PRN dulcolax #Fungal UTI - resolved, s/p treatment - Patient is high risk for fungemia - Diflucan 11/16 - 11/23 -Appreciate ID Consult #Sinus Bradycardia - resolved -continue telemetry -EP following 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 -Evaluated by endocrine for adrenal insufficiency -AM cortisol normal however patient continues to have labile BP and hyponatremia - Appreciate Nephrology consult - Appreciate Endocrine consult - Will continue Florinef, Salt Tab, and DDAVP - Continue Midodrine given labile BP - CT Brain without masses noted, will defer MRI - Refusing labs periodically #Hyponatremia - resolved #Hypokalemia - resolved -Intermittently refusing labs -Replete when necessary -On DDAVP intranasal #Anemia, acute on chronic - stable -s/p 2 units RBC 10/28 -Hematology following, no signs of overt bleeding - Continue Iron tab - Keep Hb >7 #Chronic Lower extremity pain Likely 2' contractures and prior accident - Gabapentin, Farrell, Baclofen - pain management consulted, recs appreciated FEN: Eliquis 2.5 BID Jevity TF #Dispo - Awaiting SNF bed placement. Appreciate referrals placed by CM. I spent 32 minutes on this patient's care today, and 21 mins was dedicated to counseling and care coordination. New to service and discussed plan of care with all consultants. Time of note doesn't reflect time of encounter. Art Hensley M.D. Dec 04, 2019 10:50
[2019-12-04 12:07] VITALS: BP 110/68
--- NOTE | 2019-12-04 14:52 | Infectious Diseases Prog Note ---
Assessment/Plan Assessment/Plan ASSESSMENT AND PLAN: 1. hx sepsis/shock, hx proteus uti, hx esbl e.coli uti, possible aspiration pna/hcap vs cap, sacral wound - ? infected, mrsa and vre colonization fevers, leukocytosis - new acinetobacter uti and vre uti, + urine culture CT abdomen and pelvis without acute abscess, blood cultures negative ? pna on chest x-ray vs atx, ? aspiration pna/hcap - s/p polymyxin and zyvox - monitor labs, chest x-ray and temperatures - clinically improved, fevers improved 2. ICU care. 3. Sacral wound -wound mostly clean, management per surgery 4. Ostomy malfunction - per surgery 5. Hypertension. 6. Paraplegia. 7. Anemia. 8. History of decubitus ulcer, rule out infection. Infectious diseases is following. The patient on antibiotics. 9. Hypertension treatment per primary care team. 10. Continue treatment per primary consultants. 11. No known drug allergies. 12. Social history is negative. 13. Family history is noncontributory. 14. MAR was noted. 15. Case discussed with RN. Subjective Constitutional: Denies: fever HEENT: Denies: congestion Respiratory: Denies: shortness of breath Cardiovascular: Denies: chest pain Gastrointestinal/Abdominal: Denies: nausea, vomiting, diarrhea Genitourinary: Reports: other - + donohue Neurologic: Denies: headache Psychiatric: Denies: depression Skin: Denies: rash Hematologic: Denies: bleeding Musculoskeletal: Denies: pain Allergies: Coded Allergies: No Known Allergies (Unverified , 08/15/19) Objective Last 24 Hour Vital Signs Date Time Temp Pulse Resp B/P (MAP) Pulse Ox O2 Delivery O2 Flow Rate FiO2 12/04/19 14:37 98.6 12/04/19 12:07 98.6 97 19 110/68 (82) 97 12/04/19 10:46 Room Air 12/04/19 08:00 98.9 94 20 106/64 (78) 98 12/04/19 04:00 99.0 89 20 100/62 (75) 98 12/04/19 00:00 97.0 67 18 113/65 (81) 95 12/03/19 21:00 Room Air 12/03/19 20:00 98.5 75 22 108/58 (75) 97 12/03/19 16:00 98.2 80 20 119/73 (88) 97 Height (Feet): 5 Height (Inches): 7.00 Weight (Pounds): 114 General Appearance: no acute distress HEENT: normocephalic, atraumatic, anicteric, mucous membranes moist Respiratory/Chest: lungs clear, normal breath sounds, no respiratory distress, no accessory muscle use Cardiovascular: normal rate, regular rhythm, no gallop/murmur, no JVD Abdomen: normal bowel sounds, soft, non tender, no organomegaly, non distended Genitourinary: other - + donohue - urine slt cloudy Extremities: no cyanosis Skin: no rash Neurologic/Psychiatric: bacon de rinder II-XII grossly normal, alert, oriented x 3, responsive Lymphatic: no neck adenopathy Musculoskeletal: no effusion Chest x-ray - 10/25/19 - Procedure: XRAY Chest 1v Indication: Shortness of breath Technique: One view of the chest Comparison: 10/23/2019 Findings: There are bilateral basilar infiltrates, which appear new or increased since prior study. There is some atelectasis at the left lung base as well. Right jugular central venous catheter remains. The heart size is normal. Impression: New/increased bilateral basilar infiltrates, since prior study 10/23/2019 Chest x-ray - 10/27/19 - Procedure: XRAY Chest 1v Indication: Shortness of breath Technique: One view of the chest Comparison: 10/25/2019 Findings: There is atelectasis possibly some focal consolidation at the right lung base. Atelectatic changes previously demonstrated at the left lung base have largely cleared. Right jugular central venous catheter remains. The heart size is normal. Impression: Improving left basilar atelectasis. Otherwise little change management analyst 2 days findings as noted Chest x-ray - 10/29/19 - FINDINGS: Lungs: Persistent subsegmental atelectasis in bilateral lower lungs, not significant changed compared to the prior exam. No new consolidation is seen. Pleural space: Unremarkable. The costophrenic angles are sharp. No visible pneumothorax. Heart: Unremarkable. No cardiomegaly. Mediastinum: Unremarkable. Bones/joints: Unremarkable. Vasculature: Mild atherosclerotic calcifications are noted within the aortic arch. Tubes, lines and devices: Stable positioning of a right IJ central venous catheter with the tip in the SVC. Telemetry leads overlie the thorax. IMPRESSION: Persistent subsegmental atelectasis in bilateral lower lungs, not significantly changed compared to the prior exam. Chest x-rasy - 11/03/19 - Procedure: XRAY Chest 1v Indication: Cough Technique: One view of the chest Comparison: 10/29/2019 Findings: There are increased atelectatic changes at the lung bases. Interim removal of previously demonstrated central venous catheter. The pleural spaces are clear. The heart size is normal. Impression: Increasing bilateral basilar atelectasis Interim central venous catheter removal. Chest x-ray - 11/07/19 - Procedure: XRAY Chest 1v Indication: Shortness of breath Technique: One view of the chest Comparison: 11/03/2019 Findings: Bilateral basilar atelectatic changes appear similar to the previous exam. There may be some patchy left perihilar and bilateral peripheral consolidation. The heart size is normal. Impression: New or increased faint patchy peripheral and left perihilar consolidative opacities, possibly reflecting multifocal pneumonia, since prior study 03/04/2019 Persistent bilateral basilar atelectatic changes Chest x-ray - 11/09/19 - Procedure: XRAY Chest 1v Indication: Cough Technique: One view of the chest Comparison: 11/07/2019 Findings: There is improved aeration of the lung bases, although some atelectasis persists bilaterally. No new infiltrates. The pleural spaces are clear. The hear t size is normal. Impression: Improved aeration with decreased basilar atelectasis Chest x-ray - 11/14/19 - Procedure: XRAY Chest 1v Indication: Cough Technique: One view of the chest Comparison: 11/09/2019 Findings: Bilateral basilar atelectasis has increased. No new infiltrates. The pleural spaces remain clear. The heart size is normal. Impression: Increased bilateral basilar atelectasis, since prior study 11/09/2019 Chest x-ray - 11/15/19 - Procedure: XRAY Chest 1v Indication: Cough Technique: One view of the chest Comparison: 11/13/2019 Findings: Again demonstrated is bilateral basilar atelectasis versus scarring. The lungs and pleural spaces are otherwise clear. The heart size is normal. Interim placement right arm PICC. Impression: No acute process Chest x-ray - 11/21/19 - Procedure: XRAY Chest 1v Indication: Shortness of breath Technique: One view of the chest Comparison: 11/15/2019 Findings: Previously demonstrated basilar atelectatic changes have cleared. Lungs and pleural spaces are currently clear. The heart size is normal. There is a right arm PICC again demonstrated Impression: No acute process CT abdomen and pelvis: Impression: Extensive decubitus changes, as described, with evidence of skin thickening, surface ulceration, deep ulceration, and likely prior skin grafting. There is also evidence of extensive bone loss. This may be due to erosive changes, postsurgical changes, or likely combination of both. No findings to suggest abscess Left lower quadrant diverting sigmoid colostomy. Considerable distal stool and evidence of rectal fecal impaction and incontinence, despite this. Rectal wall thickening could indicate stercoral proctitis Splenomegaly Inferior vena cava filter Donohue catheter and empty bladder. Some calcifications are seen surrounding the Donohue balloon Posterior pulmonary dependent atelectatic changes and possible consolidation Other findings as noted, including probable hepatic and renal cysts Chest x-ray - 11/25/19 - FINDINGS: Lungs: There are mild bilateral lower lobe infiltrates consistent with nonspecific pneumonia. Pleural space: Unremarkable. No pneumothorax. Heart: Unremarkable. No cardiomegaly. Mediastinum: Unremarkable. Bones/joints: Unremarkable. Tubes, lines and devices: There is a right-sided PICC line in good position. IMPRESSION: There are mild bilateral lower lobe infiltrates consistent with nonspecific pneumonia. Chest x-ray - 11/27/19 - Procedure: XRAY Chest 1v Procedure: XRAY Chest 1v Reason for study: Shortness of breath. Comparison films: 11/25/2019. FINDINGS: Right PICC line remains in place. Vascularity is normal. There are linear atelectasis in both lung bases. Cardiac and mediastinal silhouette are within normal limits. CP angles are sharp. The bony thorax appear unremarkable. IMPRESSION: Bibasilar linear atelectasis. Microbiology Date/Time Source Procedure Growth Status 11/25/19 09:45 Blood Blood Culture - Final NO GROWTH AFTER 5 DAYS Complete 11/20/19 23:30 Indwelling Cath Urine Culture - Final Acinetobacter Baumanii - Mdr Enterococcus Faecium - Vre Complete 11/03/19 08:00 Catheter Site Catheter Tip Culture - Final Staphylococcus Sp Coag Neg Complete 11/02/19 13:30 Nasopharynx SARS-CoV-2 RdRp Gene Assay - Final Complete Laboratory Tests Test 12/04/19 09:10 White Blood Count 9.5 K/UL (4.8-10.8) Red Blood Count 3.34 M/UL (4.70-6.10) L Hemoglobin 8.7 G/DL (14.2-18.0) L Hematocrit 27.4 % (42.0-52.0) L Mean Corpuscular Volume 82 FL (80-99) Mean Corpuscular Hemoglobin 26.1 PG (27.0-31.0) L Mean Corpuscular Hemoglobin Concent 31.8 G/DL (32.0-36.0) L Red Cell Distribution Width 14.9 % (11.6-14.8) H Platelet Count 426 K/UL (150-450) Mean Platelet Volume 4.4 FL (6.5-10.1) L Neutrophils (%) (Auto) 59.7 % (45.0-75.0) Lymphocytes (%) (Auto) 24.8 % (20.0-45.0) Monocytes (%) (Auto) 12.7 % (1.0-10.0) H Eosinophils (%) (Auto) 1.3 % (0.0-3.0) Basophils (%) (Auto) 1.6 % (0.0-2.0) cr- 0.6 Current Medications Medications (Trade) Dose Ordered Sig/Mya Route PRN Reason Start Time Stop Time Status Last Admin Dose Admin Acetaminophen (Tylenol) 650 mg Q4H PRN ORAL Temp >100.5 11/05/19 16:00 12/05/19 15:59 12/04/19 14:07 Acetaminophen/ Hydrocodone Bitart ([place] 5/325) 1 tab Q6H PRN ORAL Severe Pain (Pain Scale 7-10) 12/04/19 10:36 12/11/19 10:35 Apixaban (Eliquis) 2.5 mg BID ORAL 11/24/19 09:00 02/22/20 08:59 12/04/19 08:41 Bisacodyl (Dulcolax) 10 mg DAILYPRN PRN RECTAL Constipation 11/24/19 07:45 02/22/20 07:44 Chlorhexidine Gluconate (Simrna-Hex 2%) 1 applic DAILY@2000 TOPIC 11/13/19 20:00 02/11/20 19:59 12/03/19 20:06 Desmopressin Acetate (Ddavp) 1 spray DAILY NASAL 11/14/19 09:00 02/07/20 17:59 12/04/19 08:41 Dextrose (Dextrose 50%) 25 ml Q30M PRN IV Hypoglycemia 11/05/19 13:30 01/21/20 17:29 Dextrose (Dextrose 50%) 50 ml Q30M PRN IV Hypoglycemia 11/05/19 13:30 01/21/20 17:29 Famotidine (Pepcid) 20 mg DAILY ORAL 11/06/19 09:00 01/28/20 09:29 12/04/19 08:41 Ferrous Sulfate (Feosol) 325 mg DAILY ORAL 11/06/19 09:00 01/22/20 08:59 12/04/19 08:41 Fludrocortisone Acetate (Florinef) 0.1 mg DAILY ORAL 11/15/19 09:00 12/15/19 08:59 12/04/19 08:41 Magnesium Hydroxide (Mom) 30 ml HSPRN PRN ORAL Constipation 11/13/19 11:15 12/13/19 11:14 Midodrine (Pro-Amatine) 10 mg EVERY 8 HOURS ORAL 11/05/19 14:00 01/21/20 17:59 12/04/19 14:07 Naloxone HCl (Narcan) 0.2 mg Q2M PRN IVP RESPRITORY DEPRESSION RR<8 11/24/19 10:15 02/22/20 10:14 Senna/Docusate Sodium (Haley-Colace) 1 tab TWICE A DAY ORAL 11/24/19 09:00 12/24/19 08:59 12/04/19 08:41 Sodium Hypochlorite (Dakin's Quarter Strength) 1 applic DAILY TOPIC 12/01/19 09:00 12/31/19 08:59 12/04/19 08:42 Sodium Chloride (NaCl) 1 gm THREE TIMES A DAY ORAL 11/09/19 13:00 12/09/19 12:59 12/04/19 14:07 Zinc Sulfate (Zinc Sulfate) 220 mg DAILY ORAL 11/06/19 09:00 01/22/20 08:59 12/04/19 08:41 Sharif Painting MD Dec 04, 2019 14:52
[2019-12-04 15:49] VITALS: BP 108/71
[2019-12-04 20:02] VITALS: BP 96/55
[2019-12-04] MEDS: Dyna-Hex 2% Top Sol 2oz TOPIC SCH (20:08)
[2019-12-05 00:14] VITALS: BP 99/52
[2019-12-05 04:00] VITALS: BP 94/57
[2019-12-05] MEDS: Midodrine 10mg tab ORAL SCH ×3 (05:32→21:06)
[2019-12-05] MEDS: HYDROcodone/Acetamin 5/325 tab ORAL PRN ×2 (05:40→14:53)
[2019-12-05 08:00] VITALS: BP 98/60
[2019-12-05] MEDS: Desmopressin Nasal 5ml NASAL SCH (08:31)
[2019-12-05] MEDS: Eliquis 2.5mg tablet ORAL SCH ×2 (08:31→17:28)
[2019-12-05] MEDS: Zinc Sulfate 220mg ORAL SCH (08:31)
[2019-12-05] MEDS: Dakin's 0.125% Soln (Quarter Strength) 16oz TOPIC SCH (08:31)
[2019-12-05] MEDS: Docusate Sod/Senna tab ORAL SCH ×2 (08:31→17:28)
[2019-12-05] MEDS: Sodium Chloride 1gm Tab ORAL SCH ×3 (08:32→17:27)
--- NOTE | 2019-12-05 08:40 | General Progress Note ---
Subjective Date patient seen: Dec 05, 2019 Time patient seen: 07:30 - am Allergies: Coded Allergies: No Known Allergies (Unverified , 08/15/19) Subjective REVIEW OF SYSTEMS: Denies rash, fever, chills, sweating, dizziness, drowsiness, blurred vision, sore throat, or change in weight. No shortness of breath or chest pain. No nausea, vomiting, diarrhea, blood in stool or urine. HISTORY OF PRESENT ILLNESS: This is a 59-year-old male who has been seen on the Med/Surg floor of [facility]. Patient showing no signs of pain or distress. Has used 1 [place] in the last 24hrs. No new complaints at this time. Objective Last 24 Hour Vital Signs Date Time Temp Pulse Resp B/P (MAP) Pulse Ox O2 Delivery O2 Flow Rate FiO2 12/05/19 06:10 98.6 12/05/19 04:00 98.6 73 18 94/57 (69) 97 12/05/19 00:14 98.3 79 18 99/52 (68) 98 12/04/19 20:49 Room Air 12/04/19 20:02 98.5 74 17 96/55 (69) 97 12/04/19 15:49 98.4 93 19 108/71 (83) 98 12/04/19 14:37 98.6 12/04/19 12:07 98.6 97 19 110/68 (82) 97 12/04/19 10:46 Room Air Intake and Output 12/04/19 12/05/19 19:00 07:00 Intake Total 1000 ml 360 ml Output Total 1250 ml Balance 1000 ml -890 ml Intake Oral 1000 ml 360 ml Output Urine Total 1250 ml # Voids 1 # Bowel Movements 2 Laboratory Tests 12/04/19 09:10: White Blood Count 9.5, Red Blood Count 3.34L, Hemoglobin 8.7L, Hematocrit 27.4L, Mean Corpuscular Volume 82, Mean Corpuscular Hemoglobin 26.1L, Mean Corpuscular Hemoglobin Concent 31.8L, Red Cell Distribution Width 14.9H, Platelet Count 426, Mean Platelet Volume 4.4L, Neutrophils (%) (Auto) 59.7, Lymphocytes (%) (Auto) 24.8, Monocytes (%) (Auto) 12.7H, Eosinophils (%) (Auto) 1.3, Basophils (%) (Auto) 1.6 Height (Feet): 5 Height (Inches): 7.00 Weight (Pounds): 114 Objective PHYSICAL EXAMINATION: GENERAL: Alert, awake, and oriented. LUNGS: Decreased breath sounds bilaterally. HEART: S1, S2 regular. ABDOMEN: Colostomy bag noted. EXTREMITIES: Upper and lower extremity range of motion is decreased due to the patient's condition. Contracture is noted. Sensory is reduced. Reflexes are not obtainable. No adenopathy. Assessment/Plan Status: doing well Assessment/Plan: (1) Sacral decubitus ulcer (2) Paraplegia (3) Neuropathic pain Patient to be continued on [place] and Neurontin D/w Dr. Celaya and he concurred. Danny Raymundo Dec 05, 2019 08:40
--- NOTE | 2019-12-05 09:04 | Hematology/Onc Progress Note ---
Assessment/Plan Assessment/Plan # Acute left upstream popliteal vein deep venous thrombosis IVC filter in place --> given acute nature, will continue eliquis --> HOWEVER, if drop in h/h consider to hold eliquis as has ivc in place --> IVC Filter placed earlier # Anemia rule out gi bleed, as well as iron deficiency --> hgb 8.2-->7.2-->7.1->6.9-->8.6-->8.3-->9.3-->8.3-->9.3--.9.2->8.7->8-->8.7 --> anemia panel ordered--> cw acd --> occult blood pending-->neg --> gi eval prn --> transfuse as needed --> transfuse 2 units 10/27 --> po iron to continue # Coagulopathy with elev ptt/inr --> vitk and ffp as needed --> no bleeding noted at this time # Thrombocytosis likely reactive process --> plt 398-->608-->605 --> abx as needed # Sepsis due to uti, with Hypotension likely due to septic shock. Was diuresing heavily at 300 mL an hour. --> Continue on midodrine and dopamine. --> ABX vancomycin and meropenem and amikacin-->christel/vanc/difluc-->vanc/linezolid --> before requires pressors --> as per cards # Bradycardia. --> per cards # Paraplegia. # LLQ colostomy # Decubitus ulcers with sacral decubitus. # Dvt ppx eliquis Appreciate consultation and chandrakant RN Subjective Constitutional: Denies: no symptoms, chills, fever, malaise, weakness, other HEENT: Denies: no symptoms, eye pain, blurred vision, tearing, double vision, ear pain, ear discharge, nose pain, nose congestion, throat pain, throat swelling, mouth pain, mouth swelling, other Cardiovascular: Denies: no symptoms, chest pain, edema, irregular heart rate, lightheadedness, palpitations, syncope, other Respiratory: Denies: no symptoms, cough, shortness of breath, SOB with excertion, SOB at rest, sputum, wheezing, other Neurologic/Psychiatric: Denies: no symptoms, anxiety, depressed, emotional problems, headache, numbness, paresthesia, pre-existing deficit, seizure, tingling, tremors, weakness, other Endocrine: Denies: no symptoms, excessive sweating, flushing, intolerance to cold, intolerance to heat, increased hunger, increased thirst, increased urine, unexplained weight gain, unexplained weight loss, other Hematologic/Lymphatic: Denies: no symptoms, anemia, easy bleeding, easy bruising, adenopathy, other Allergies: Coded Allergies: No Known Allergies (Unverified , 08/15/19) Subjective 10/27 labs again refused this am, yesterday was low, chandrakant rn in icu 10/28 remains in icu, for 2units prbc this am, chandrakant [place], no other events 10/29 s/p prbc, tolerated it well, no bleeding, on 1mcg levo, in icu 10/30 on abx, on levo and overnight no other events, 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\ 10/31 wounds improved, labs noted, no bleeding, hgb lower, refusing care/wound care 11/01 labs noted, no bleeding, no hematochezia, no hemoptysis, cbc ordered 11/02 meds reviewed, labs noted, no bleeding, chandrakant [place], no major changes, hgb 8.3 11/04 labs have been noted, no bleeding, meds reviewed, no hemolysis 11/05 functional colostomy llq, no bleeding, cbc is pending for am 11/06 labs have been refused, hgb 8.3, no bleeding, wbc is higher in am 11/07 labs have initially been refused, no bleeding in am, wbc 13, on abx 11/08 labs reviewed, no bleeding, chandrakant [place], cbc is pending for am 11/09 is on vanc/difl/christel, no other changes, cbc and bmp are noted 11/11 has been asymptomatic, eating breakfast, hgb 9.3, on abx 11/12 labs are noted, no bleeding, chandrakant [place], no major changes, abx 11/13 is currently on christel and chandrakant [place] rn, no major bleeding, on hep sq 11/14 labs are noted, does not want to be changed currently, cbc/bmp ordered 11/15 labs reviewed, c/o pain at picc line, no bleeding, meds noted, hgb 8.7 11/16 labs are noted, has been cleared, for dc planning to snf 11/[address], no bleeding, meds noted, continues to be on heparin sq 11/19 labs noted, no bleeding, comfortable, cbc is ntoed and bmp for am labs 11/[address], with dressing change as needed, meds noted, labs reviewed 11/[address], is on vanc/christel seen by id, no major changes 11/22 labs reviewed, with colostomy, donohue catheter, ct of a/p noted 11/23 meds noted, no bleeding, have ordered for eliquis and chandrakant Quijano Razo in am 11/25 labs noted, no bleeding, on blood thinner is on vanc/linezolid, hgb 8 11/26 remains on eliquis, no bleeding, meds noted, eating breakfast this am 11/27 low bp, ns given, meds are reviewed, no major hemolysis, remains on po iron 11/28 on eliquis, ferrous suldate, no bleeding, comfortable 12/01 labs are noted, on anticaog, also hgb 8, no bleeding, comfortable 12/02 is without events, no bleeding, labs reviewed, no bleeding, meds noted 12/03 initially refused labs but now feeling better, cbc pending for am 12/04 labs noted, no bleeding, meds noted as well Objective Objective Current Medications Medications (Trade) Dose Ordered Sig/Mya Route PRN Reason Start Time Stop Time Status Last Admin Dose Admin Acetaminophen (Tylenol) 650 mg Q4H PRN ORAL Temp >100.5 11/05/19 16:00 12/05/19 15:59 12/04/19 14:07 Acetaminophen/ Hydrocodone Bitart ([place] 5/325) 1 tab Q6H PRN ORAL Severe Pain (Pain Scale 7-10) 12/04/19 10:36 12/11/19 10:35 12/05/19 05:40 Apixaban (Eliquis) 2.5 mg BID ORAL 11/24/19 09:00 02/22/20 08:59 12/05/19 08:31 Bisacodyl (Dulcolax) 10 mg DAILYPRN PRN RECTAL Constipation 11/24/19 07:45 02/22/20 07:44 Chlorhexidine Gluconate (Simran-Hex 2%) 1 applic DAILY@2000 TOPIC 11/13/19 20:00 02/11/20 19:59 12/04/19 20:08 Desmopressin Acetate (Ddavp) 1 spray DAILY NASAL 11/14/19 09:00 02/07/20 17:59 12/05/19 08:31 Dextrose (Dextrose 50%) 25 ml Q30M PRN IV Hypoglycemia 11/05/19 13:30 01/21/20 17:29 Dextrose (Dextrose 50%) 50 ml Q30M PRN IV Hypoglycemia 11/05/19 13:30 01/21/20 17:29 Famotidine (Pepcid) 20 mg DAILY ORAL 11/06/19 09:00 01/28/20 09:29 12/05/19 08:32 Ferrous Sulfate (Feosol) 325 mg DAILY ORAL 11/06/19 09:00 01/22/20 08:59 12/05/19 08:31 Fludrocortisone Acetate (Florinef) 0.1 mg DAILY ORAL 11/15/19 09:00 12/15/19 08:59 12/05/19 08:31 Magnesium Hydroxide (Mom) 30 ml HSPRN PRN ORAL Constipation 11/13/19 11:15 12/13/19 11:14 Midodrine (Pro-Amatine) 10 mg EVERY 8 HOURS ORAL 11/05/19 14:00 01/21/20 17:59 12/05/19 05:32 Naloxone HCl (Narcan) 0.2 mg Q2M PRN IVP RESPRITORY DEPRESSION RR<8 11/24/19 10:15 02/22/20 10:14 Senna/Docusate Sodium (Haley-Colace) 1 tab TWICE A DAY ORAL 11/24/19 09:00 12/24/19 08:59 12/05/19 08:31 Sodium Hypochlorite (Dakin's Quarter Strength) 1 applic DAILY TOPIC 12/01/19 09:00 12/31/19 08:59 12/05/19 08:31 Sodium Chloride (NaCl) 1 gm THREE TIMES A DAY ORAL 11/09/19 13:00 12/09/19 12:59 12/05/19 08:32 Zinc Sulfate (Zinc Sulfate) 220 mg DAILY ORAL 11/06/19 09:00 01/22/20 08:59 12/05/19 08:31 Last 24 Hour Vital Signs Date Time Temp Pulse Resp B/P (MAP) Pulse Ox O2 Delivery O2 Flow Rate FiO2 12/05/19 08:00 98.3 78 18 98/60 (73) 98 12/05/19 06:10 98.6 12/05/19 04:00 98.6 73 18 94/57 (69) 97 12/05/19 00:14 98.3 79 18 99/52 (68) 98 12/04/19 20:49 Room Air 12/04/19 20:02 98.5 74 17 96/55 (69) 97 12/04/19 15:49 98.4 93 19 108/71 (83) 98 12/04/19 14:37 98.6 12/04/19 12:07 98.6 97 19 110/68 (82) 97 12/04/19 10:46 Room Air 12/04/19 08:00 98.9 94 20 106/64 (78) 98 12/04/19 04:00 99.0 89 20 100/62 (75) 98 12/04/19 00:00 97.0 67 18 113/65 (81) 95 12/03/19 21:00 Room Air 12/03/19 20:00 98.5 75 22 108/58 (75) 97 12/03/19 16:00 98.2 80 20 119/73 (88) 97 12/03/19 12:00 96.4 79 19 109/70 (83) 98 12/03/19 09:47 Room Air Intake and Output 12/04/19 12/05/19 19:00 07:00 Intake Total 1000 ml 360 ml Output Total 1250 ml Balance 1000 ml -890 ml Intake Oral 1000 ml 360 ml Output Urine Total 1250 ml # Voids 1 # Bowel Movements 2 Labs Test 12/04/19 09:10 White Blood Count 9.5 K/UL (4.8-10.8) Red Blood Count 3.34 M/UL (4.70-6.10) Hemoglobin 8.7 G/DL (14.2-18.0) Hematocrit 27.4 % (42.0-52.0) Mean Corpuscular Volume 82 FL (80-99) Mean Corpuscular Hemoglobin 26.1 PG (27.0-31.0) Mean Corpuscular Hemoglobin Concent 31.8 G/DL (32.0-36.0) Red Cell Distribution Width 14.9 % (11.6-14.8) Platelet Count 426 K/UL (150-450) Mean Platelet Volume 4.4 FL (6.5-10.1) Neutrophils (%) (Auto) 59.7 % (45.0-75.0) Lymphocytes (%) (Auto) 24.8 % (20.0-45.0) Monocytes (%) (Auto) 12.7 % (1.0-10.0) Eosinophils (%) (Auto) 1.3 % (0.0-3.0) Basophils (%) (Auto) 1.6 % (0.0-2.0) Height (Feet): 5 Height (Inches): 7.00 Weight (Pounds): 114 Objective Physical Exam General Appearance: lethargic Lines, tubes and drains: peripheral, central line HEENT: normocephalic Neck: non-tender, normal alignment Respiratory/Chest: lungs clear Cardiovascular/Chest: normal peripheral pulses, normal rate, regular rhythm Abdomen: normal bowel sounds, non tender ++ llq colostomy : ++Martínez Geiger MD Dec 05, 2019 09:04
--- NOTE | 2019-12-05 10:32 | Pulmonology Progress Note ---
Subjective ROS Limited/Unobtainable: Yes Interval Events: no fever or leucocytosis Constitutional: Denies: fever HEENT: Repors: no symptoms Respiratory: Reports: no symptoms Cardiovascular: Reports: no symptoms Gastrointestinal/Abdominal: Denies: nausea, vomiting, diarrhea Genitourinary: Reports: no symptoms Psychiatric: Denies: depression Skin: Denies: rash Musculoskeletal: Denies: pain Allergies: Coded Allergies: No Known Allergies (Unverified , 08/15/19) All Systems: reviewed and negative except above Objective Last 24 Hour Vital Signs Date Time Temp Pulse Resp B/P (MAP) Pulse Ox O2 Delivery O2 Flow Rate FiO2 12/05/19 09:00 Room Air 12/05/19 08:00 98.3 78 18 98/60 (73) 98 12/05/19 06:10 98.6 12/05/19 04:00 98.6 73 18 94/57 (69) 97 12/05/19 00:14 98.3 79 18 99/52 (68) 98 12/04/19 20:49 Room Air 12/04/19 20:02 98.5 74 17 96/55 (69) 97 12/04/19 15:49 98.4 93 19 108/71 (83) 98 12/04/19 14:37 98.6 12/04/19 12:07 98.6 97 19 110/68 (82) 97 12/04/19 10:46 Room Air Intake and Output 12/04/19 12/05/19 19:00 07:00 Intake Total 1000 ml 360 ml Output Total 1250 ml Balance 1000 ml -890 ml Intake Oral 1000 ml 360 ml Output Urine Total 1250 ml # Voids 1 # Bowel Movements 2 General Appearance: no acute distress HEENT: normocephalic Respiratory: chest wall non-tender, lungs clear Cardiovascular: normal peripheral pulses, regular rhythm Abdomen: normal bowel sounds Extremities: no cyanosis Current Medications Medications (Trade) Dose Ordered Sig/Mya Route PRN Reason Start Time Stop Time Status Last Admin Dose Admin Acetaminophen (Tylenol) 650 mg Q4H PRN ORAL Temp >100.5 11/05/19 16:00 12/05/19 15:59 12/04/19 14:07 Acetaminophen/ Hydrocodone Bitart (Loving 5/325) 1 tab Q6H PRN ORAL Severe Pain (Pain Scale 7-10) 12/04/19 10:36 12/11/19 10:35 12/05/19 05:40 Apixaban (Eliquis) 2.5 mg BID ORAL 11/24/19 09:00 02/22/20 08:59 12/05/19 08:31 Bisacodyl (Dulcolax) 10 mg DAILYPRN PRN RECTAL Constipation 11/24/19 07:45 02/22/20 07:44 Chlorhexidine Gluconate (Simran-Hex 2%) 1 applic DAILY@2000 TOPIC 11/13/19 20:00 02/11/20 19:59 12/04/19 20:08 Desmopressin Acetate (Ddavp) 1 spray DAILY NASAL 11/14/19 09:00 02/07/20 17:59 12/05/19 08:31 Dextrose (Dextrose 50%) 25 ml Q30M PRN IV Hypoglycemia 11/05/19 13:30 01/21/20 17:29 Dextrose (Dextrose 50%) 50 ml Q30M PRN IV Hypoglycemia 11/05/19 13:30 01/21/20 17:29 Famotidine (Pepcid) 20 mg DAILY ORAL 11/06/19 09:00 01/28/20 09:29 12/05/19 08:32 Ferrous Sulfate (Feosol) 325 mg DAILY ORAL 11/06/19 09:00 01/22/20 08:59 12/05/19 08:31 Fludrocortisone Acetate (Florinef) 0.1 mg DAILY ORAL 11/15/19 09:00 12/15/19 08:59 12/05/19 08:31 Magnesium Hydroxide (Mom) 30 ml HSPRN PRN ORAL Constipation 11/13/19 11:15 12/13/19 11:14 Midodrine (Pro-Amatine) 10 mg EVERY 8 HOURS ORAL 11/05/19 14:00 01/21/20 17:59 12/05/19 05:32 Naloxone HCl (Narcan) 0.2 mg Q2M PRN IVP RESPRITORY DEPRESSION RR<8 11/24/19 10:15 02/22/20 10:14 Senna/Docusate Sodium (Haley-Colace) 1 tab TWICE A DAY ORAL 11/24/19 09:00 12/24/19 08:59 12/05/19 08:31 Sodium Hypochlorite (Dakin's Quarter Strength) 1 applic DAILY TOPIC 12/01/19 09:00 12/31/19 08:59 12/05/19 08:31 Sodium Chloride (NaCl) 1 gm THREE TIMES A DAY ORAL 11/09/19 13:00 12/09/19 12:59 12/05/19 08:32 Zinc Sulfate (Zinc Sulfate) 220 mg DAILY ORAL 11/06/19 09:00 01/22/20 08:59 12/05/19 08:31 Assessment/Plan Assessment/Plan IMPRESSION: 1. Septic shock. resolved 2. Complicated UTI with history of previous ESBL infection. 3. Paraplegia. 4. Sacral decubitus. 5. senior living resident. DISCUSSION: DVT and GI prophylaxes. Continue Oxygen prn, doing well on room air at this time. DC planning Haily Monzon Omar Syed MD Dec 05, 2019 10:32
[2019-12-05 12:00] VITALS: BP 100/60
--- NOTE | 2019-12-05 13:17 | Nephrology Progress Note ---
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 - improved with desmporessin #Shock #UTI # infected sacral pressure ulcer #Acute metabolic encephalopathy #Paraplegia #Sacral pressure ulcer #Hypokalemia #Anemia - continue florinef 0.1mg daily -Continue desmopressin nasal - continue salt tabs 1g TID - continue midodrine 10 TID - endocrine eval noted - r/o adrenal insuffiency - antibiotics per ID - monitor lytes - avoid nephrotoxins - daily weights - strict I&Os time spent 40 min- greater than 50% on care coordination and counseling Subjective ROS Limited/Unobtainable: No Constitutional: Reports: weakness HEENT: Denies: no symptoms, eye pain, blurred vision, tearing, double vision, ear pain, ear discharge, nose pain, nose congestion, throat pain, throat swelling, mouth pain, mouth swelling, other Genitourinary: Denies: no symptoms, burning, discharge, frequency, flank pain, hematuria, incontinence, pain, urgency, other Neurologic/Psychiatric: Denies: no symptoms, anxiety, depressed, emotional problems, headache, numbness, paresthesia, pre-existing deficit, seizure, tingling, tremors, weakness, other Subjective on florinef 0.1mg daily Bp stable on nasal desmopressin on salt tabs Objective Objective Last 24 Hour Vital Signs Date Time Temp Pulse Resp B/P (MAP) Pulse Ox O2 Delivery O2 Flow Rate FiO2 12/05/19 12:00 97.2 66 19 100/60 (73) 99 12/05/19 09:00 Room Air 12/05/19 08:00 98.3 78 18 98/60 (73) 98 12/05/19 06:10 98.6 12/05/19 04:00 98.6 73 18 94/57 (69) 97 12/05/19 00:14 98.3 79 18 99/52 (68) 98 12/04/19 20:49 Room Air 12/04/19 20:02 98.5 74 17 96/55 (69) 97 12/04/19 15:49 98.4 93 19 108/71 (83) 98 12/04/19 14:37 98.6 Intake and Output 12/04/19 12/05/19 19:00 07:00 Intake Total 1000 ml 360 ml Output Total 1250 ml Balance 1000 ml -890 ml Intake Oral 1000 ml 360 ml Output Urine Total 1250 ml # Voids 1 # Bowel Movements 2 Height (Feet): 5 Height (Inches): 7.00 Weight (Pounds): 114 Sienna Georges M.D. Dec 05, 2019 13:17
--- NOTE | 2019-12-05 14:26 | Surgery Progress Note ---
Surgery Progress Note Subjective Additional Comments no acute events comfortable stable Objective Last 24 Hour Vital Signs Date Time Temp Pulse Resp B/P (MAP) Pulse Ox O2 Delivery O2 Flow Rate FiO2 12/05/19 12:00 97.2 66 19 100/60 (73) 99 12/05/19 09:00 Room Air 12/05/19 08:00 98.3 78 18 98/60 (73) 98 12/05/19 06:10 98.6 12/05/19 04:00 98.6 73 18 94/57 (69) 97 12/05/19 00:14 98.3 79 18 99/52 (68) 98 12/04/19 20:49 Room Air 12/04/19 20:02 98.5 74 17 96/55 (69) 97 12/04/19 15:49 98.4 93 19 108/71 (83) 98 12/04/19 14:37 98.6 I&O Intake and Output 12/04/19 12/05/19 19:00 07:00 Intake Total 1000 ml 360 ml Output Total 1250 ml Balance 1000 ml -890 ml Intake Oral 1000 ml 360 ml Output Urine Total 1250 ml # Voids 1 # Bowel Movements 2 Dressing: other Wound: other Cardiovascular: RSR Respiratory: decreased breath sounds Abdomen: soft, non-tender, present bowel sounds Extremities: no edema, no tenderness, no cyanosis Plan Problems: (1) Abdominal distension Assessment & Plan: abd distention soft non tender ostomy viable and reduced KUB ordered pending results improved comfortable no complaints okay for diet s tolerated d/c planning much improved There is an inferior vena cava filter in place. Bowel gas pattern is unremarkable. Considerable stool is seen in the transverse and distal colon. There is extensive pelvic deformity, with loss of the left femoral head, chronic dislocation of the left femur, and extensive pelvic deformity, particularly on the left. [place] project over the upper pelvis Impression: Possible constipation. pending placement Nonobstructed bowel gas pattern. Moderate fecal retention of the ascending colon and sigmoid colon. The degree of stool burden has increased from October 25, 2019. IVC filter, incidentally noted. Partial subluxation of the right hip. Osteotomy of the proximal left femur with deformity of the bilateral pubic rami and left acetabulum, unchanged. 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 [place] Shaped, Full Thickness Sacral Pressure Injury which extends into L ischium. (L)15.4cm x (W)18cm x (D)2.4cm, Undermining clockwise 10-2 by 7.7cm @11o'clock. Base of wound is moist,pink with scattered slough at base of wound. Bone is palpable at the Base. No odor or exudate noted. Scattered partial thickness wounds and Serous filled blisters noted to R trochanteric /R Hip areas. Historical scar noted to L groin, L Hip L Buttocks. Bony protrusion noted at L Hip. Full thickness Pressure Injury R Ischium(L)5.4cm x(W)6.9cm x (D)1.8cm,Undermining clockwise 1-4 by 2.7cm @2o'clock, Tunneling@7o'clock 2.9cm. Base of wound is moist pink with scattered slough. Scattered slough noted along borders. NO odor or exudate noted. Stable dry eschar noted to medial R knee 0.7cm x (W)0.4cm. Periwound is erythematous and indurated. No elevation in skin temp noted. L heel has shaved appearance secondary to Hx of Pressure Injuries. Base of heel is pale pink. Bone is palpable. Small area of slough noted within compromised area(L)0.6cm x (W)0.8cm. L Heel Also has shaved appearance with hypertrophic scarring. Base of compromised area is pale pink, Bone is palpable, with scattered loose, dry and scaly skin. Patient's wound remains very large extensive and requires significant amount of care. Continued care of the wounds have been provided though patient is having continence through the anus at this time again despite diversion. Wounds remain saturated times and great nursing care is being provided unfortunately inev itable decline is still significantly potential given his overall condition. Tx.Plan: Cleanse Sacral Wound and R Ischial wounds with Dakin's 0.125% gian. Loosely pack wounds with Hydrogel impregnated Kerlix. Apply Moisture Barrier Paste periwound. Cover with ABD Pads secure with Tegaderm drsg.Daily and prn. Apply Triad Paste to R Hip/R trochanteric areas.Cover with Optifoam drsg. Change every 7 days and prn. Apply Betadine to Medial R Knee. Cover with Optifoam drsg. Change every 7 days and prn. Apply Betadine to R and L Heels. Cover each Heel with Optifoam drsgs. Change every 7 days and prn. Cover Bony Prominences as needed with Optifoam drsgs. Reposition at least every 2 [address] tolerated[address] Pillow between knees. Off-load heels with pillow. APM/SUMI Mattress overlay DAILY ESTIMATED NEEDS: Needs based on Advanced wounds, wt loss/ 40.18kg 35-40 kcals/kg 9315-6783 total kcals 1.5-2.0 g protein/kg 60-80 g total protein 25-35ml/kcal mL/kg 4781-5833 total fluid mLs NUTRITION DIAGNOSIS: Increased kcal/prot/micronutrients needs R/T wound healing and underweight status as evidenced by pt admitted w/ multiple advanced wounds, refer to WC eval, pt now w/ further 3% unfavorable wt loss, currently BMI underweight per guidelines, @62% of [place] Body Weight. CURRENT DIET: Regular PO DIET RECOMMENDATIONS: REGULAR, texture as tolerated or per [employer] + Ensure Enlive TID w/ meals ADDITIONAL RECOMMENDATIONS: * Per SNF: HT=66" WT=88lbs; -> vs current EMR wt =120# -> Recalibrate bed scale for accurate wts * Continue Ensure TID, whole milk TID w/ meals * Monitor for continued improved/good Po intake * Wound healing:add MVI w/ min qdaily Continue w/ ZnSO4, Vit C, and Amari BID * Monitor Na, need for fluid restriction - (132 improved, on nacl) (15) SEAN (acute kidney injury) (16) Ileostomy prolapse Assessment & Plan: currently reduced but abd distended pending films films reviewed improved okay for diet d/c planning There is what appears to be a diverting colostomy of the distal sigmoid in the left lower quadrant. There is distention of the rectum with feces, rectal diameter 70 mm. There is some thickening of the rectal wall. The appendix is not definitely visualized, but no findings to suggest acute appendicitis are evident. There is considerable stool throughout the colon. There appears to be rectal incontinence of stool despite the diverting colostomy. Cornelius Salgado Dec 05, 2019 14:26
--- NOTE | 2019-12-05 14:48 | General Progress Note ---
Subjective Date patient seen: Dec 05, 2019 ROS Limited/Unobtainable: Yes Constitutional: Reports: chills, diaphoresis HEENT: Reports: eye pain, blurred vision, nose congestion Cardiovascular: Reports: chest pain, edema Respiratory: Reports: cough, orthopnea Gastrointestinal/Abdominal: Reports: abdomen distended, abdominal pain Genitourinary: Reports: discharge Neurologic/Psychiatric: Reports: anxiety, depressed Allergies: Coded Allergies: No Known Allergies (Unverified , 08/15/19) Subjective no acute events overnight. Patient with advanced dementia unable to answer most questions. No complaints by patient. Vitals stable. Objective Last 24 Hour Vital Signs Date Time Temp Pulse Resp B/P (MAP) Pulse Ox O2 Delivery O2 Flow Rate FiO2 12/05/19 12:00 97.2 66 19 100/60 (73) 99 12/05/19 09:00 Room Air 12/05/19 08:00 98.3 78 18 98/60 (73) 98 12/05/19 06:10 98.6 12/05/19 04:00 98.6 73 18 94/57 (69) 97 12/05/19 00:14 98.3 79 18 99/52 (68) 98 12/04/19 20:49 Room Air 12/04/19 20:02 98.5 74 17 96/55 (69) 97 12/04/19 15:49 98.4 93 19 108/71 (83) 98 Intake and Output 12/04/19 12/05/19 19:00 07:00 Intake Total 1000 ml 360 ml Output Total 1250 ml Balance 1000 ml -890 ml Intake Oral 1000 ml 360 ml Output Urine Total 1250 ml # Voids 1 # Bowel Movements 2 Height (Feet): 5 Height (Inches): 7.00 Weight (Pounds): 114 General Appearance: no apparent distress, confused EENT: PERRL/EOMI Neck: supple, normal inspection Cardiovascular: normal rate, regular rhythm Respiratory/Chest: lungs clear, normal breath sounds, no respiratory distress Abdomen: non tender, soft, no mass Extremities: normal range of motion, non-tender, other - bilateral lower extremity paraplegia Edema: no edema noted Arm (L), no edema noted Arm (R), no edema noted Leg (L), no edema noted Leg (R), no edema noted Pedal (L), no edema noted Pedal (R), no edema noted Generalized Neurologic: clerk carrier II-XII grossly normal, other - AOx0 Skin: normal pigmentation, warm/dry Assessment/Plan Status: doing well Assessment/Plan: 59 year old man who presents from LVT with weakness, encephalopathy, concern for septic shock, possible from UTI. #Acute Left Popliteal DVT - US LLE DVT 11/23/2019 -Pt has IVC filter -D/w Heme, cont eliquis 2.5 BID -monitor for signs of bleeding #Septic Shock w/ /MSK/Pulm source ( Proteus, Actinobacter, GPC, fungal UTI and Sacral Ulcer, ?HCAP) - resolved #Bilateral LE Paraplegia #Sacral pressure ulcer, present on admit - Cont Local wound care and offloading - monitoring off abx #Sacral Decubitus Ulcer -d/w with surgery, reviewed CT findings, sacral pressure ulcer does not appear to be infected, ct findings consistent w/sacral ulcer -wound care daily -appreciate wound care recs -abx per ID as above #Stool Impaction - improved -cont Docusate-senna daily -PRN dulcolax #Sinus Bradycardia - resolved -continue telemetry -EP following 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 -Evaluated by endocrine for adrenal insufficiency -AM cortisol normal however patient continues to have labile BP and hyponatremia - Appreciate Nephrology consult - Appreciate Endocrine consult - Will continue Florinef, Salt Tab, and DDAVP - Continue Midodrine given labile BP - has been refusing labs periodically #Anemia, acute on chronic - stable -s/p 2 units RBC 10/28 -Hematology following, no signs of overt bleeding - Continue Iron tab - Keep Hb >7 #Chronic Lower extremity pain Likely 2' contractures and prior accident - Gabapentin, Aiken, Baclofen - pain management consulted, recs appreciated DVT: Eliquis 2.5 BID Diet: Regular Abx: none Fluids: none Gi: none #Dispo - Awaiting SNF bed placement. Appreciate referrals placed by CM. I spent 32 minutes on this patient's care today, and 21 mins was dedicated to counseling and care coordination. New to service and discussed plan of care with all consultants. Time of note doesn't reflect time of encounter. Justin Umana D.O Dec 05, 2019 14:48
[2019-12-05 16:00] VITALS: BP 103/64
--- NOTE | 2019-12-05 16:22 | Cardiac Electrophysiology PN ---
Assessment/Plan Assessment/Plan 1. S/P Septic shock on Midodrine, iv fluids and antibiotic 2. Bradycardia. Resolved. 3. Paraplegia. 4. Urinary tract infection, 5. Decubitus ulcers with sacral decubitus. 6. S/P Ileostomy/ 7. Polyuria, DI. On Salt tablets Subjective Subjective Alert in NAD.Placement pending Objective Last 24 Hour Vital Signs Date Time Temp Pulse Resp B/P (MAP) Pulse Ox O2 Delivery O2 Flow Rate FiO2 12/05/19 12:00 97.2 66 19 100/60 (73) 99 12/05/19 09:00 Room Air 12/05/19 08:00 98.3 78 18 98/60 (73) 98 12/05/19 06:10 98.6 12/05/19 04:00 98.6 73 18 94/57 (69) 97 12/05/19 00:14 98.3 79 18 99/52 (68) 98 12/04/19 20:49 Room Air 12/04/19 20:02 98.5 74 17 96/55 (69) 97 Intake and Output 12/04/19 12/05/19 19:00 07:00 Intake Total 1000 ml 360 ml Output Total 1250 ml Balance 1000 ml -890 ml Intake Oral 1000 ml 360 ml Output Urine Total 1250 ml # Voids 1 # Bowel Movements 2 Objective HEAD AND NECK: No JVD. LUNGS: Coarse rhonchi. CARDIOVASCULAR: Regular S1 and S2 with no gallop. ABDOMEN: Soft. S/P Ileostomy EXTREMITIES: No pitting edema Carloz Estes MD Dec 05, 2019 16:22
[2019-12-05 19:53] VITALS: BP 105/68
[2019-12-05] MEDS: Dyna-Hex 2% Top Sol 2oz TOPIC SCH (20:03)
[2019-12-06] VITALS: BP 103/61
[2019-12-06 04:00] VITALS: BP 100/65
[2019-12-06] MEDS: Midodrine 10mg tab ORAL SCH ×3 (05:32→21:31)
[2019-12-06 08:00] VITALS: BP 106/64
[2019-12-06] MEDS: Docusate Sod/Senna tab ORAL SCH ×2 (08:43→17:33)
[2019-12-06] MEDS: Zinc Sulfate 220mg ORAL SCH (08:43)
[2019-12-06] MEDS: Desmopressin Nasal 5ml NASAL SCH (08:44)
[2019-12-06] MEDS: Sodium Chloride 1gm Tab ORAL SCH ×3 (08:44→17:33)
[2019-12-06] MEDS: Eliquis 2.5mg tablet ORAL SCH ×2 (08:44→17:33)
[2019-12-06] MEDS: Dakin's 0.125% Soln (Quarter Strength) 16oz TOPIC SCH (08:44)
--- NOTE | 2019-12-06 08:44 | General Progress Note ---
Subjective Date patient seen: Dec 06, 2019 Time patient seen: 07:00 - am Allergies: Coded Allergies: No Known Allergies (Unverified , 08/15/19) Subjective REVIEW OF SYSTEMS: Denies rash, fever, chills, sweating, dizziness, drowsiness, blurred vision, sore throat, or change in weight. No shortness of breath or chest pain. No nausea, vomiting, diarrhea, blood in stool or urine. HISTORY OF PRESENT ILLNESS: This is a 59-year-old male who has been seen on the Med/Surg floor of [facility]. Patient showing no signs of pain or distress. Has used 2 [place] in the last 24hrs. No new complaints at this time. Objective Last 24 Hour Vital Signs Date Time Temp Pulse Resp B/P (MAP) Pulse Ox O2 Delivery O2 Flow Rate FiO2 12/06/19 04:00 97.7 76 17 100/65 (77) 97 12/06/19 00:00 98.1 81 20 103/61 (75) 95 12/05/19 20:32 Room Air 12/05/19 19:53 97.9 65 18 105/68 (80) 98 12/05/19 16:00 97.4 68 20 103/64 (77) 99 12/05/19 12:00 97.2 66 19 100/60 (73) 99 12/05/19 09:00 Room Air Intake and Output 12/05/19 12/06/19 19:00 07:00 Intake Total 400 ml Output Total 600 ml 400 ml Balance -200 ml -400 ml Intake Oral 400 ml Output Urine Total 600 ml 400 ml # Voids 1 1 # Bowel Movements 2 Height (Feet): 5 Height (Inches): 7.00 Weight (Pounds): 114 Objective PHYSICAL EXAMINATION: GENERAL: Alert, awake, and oriented. LUNGS: Decreased breath sounds bilaterally. HEART: S1, S2 regular. ABDOMEN: Colostomy bag noted. EXTREMITIES: Upper and lower extremity range of motion is decreased due to the patient's condition. Contracture is noted. Sensory is reduced. Reflexes are not obtainable. No adenopathy. Assessment/Plan Assessment/Plan: (1) Sacral decubitus ulcer (2) Paraplegia (3) Neuropathic pain Patient to be continued on [place] and Neurontin D/w Dr. Celaya and he concurred. Danny Raymundo Dec 06, 2019 08:44
--- NOTE | 2019-12-06 09:13 | Nephrology Progress Note ---
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 - improved with desmporessin #Shock #UTI # infected sacral pressure ulcer #Acute metabolic encephalopathy #Paraplegia #Sacral pressure ulcer #Hypokalemia #Anemia - continue florinef 0.1mg daily -Continue desmopressin nasal - continue salt tabs 1g TID - continue midodrine 10 TID - endocrine eval noted - r/o adrenal insuffiency - antibiotics per ID - monitor lytes - avoid nephrotoxins - daily weights - strict I&Os time spent 40 min- greater than 50% on care coordination and counseling Subjective ROS Limited/Unobtainable: No Constitutional: Reports: weakness HEENT: Denies: no symptoms, eye pain, blurred vision, tearing, double vision, ear pain, ear discharge, nose pain, nose congestion, throat pain, throat swelling, mouth pain, mouth swelling, other Genitourinary: Denies: no symptoms, burning, discharge, frequency, flank pain, hematuria, incontinence, pain, urgency, other Neurologic/Psychiatric: Denies: no symptoms, anxiety, depressed, emotional problems, headache, numbness, paresthesia, pre-existing deficit, seizure, tingling, tremors, weakness, other Subjective on florinef 0.1mg daily Bp stable on nasal desmopressin on salt tabs Objective Objective Last 24 Hour Vital Signs Date Time Temp Pulse Resp B/P (MAP) Pulse Ox O2 Delivery O2 Flow Rate FiO2 12/06/19 04:00 97.7 76 17 100/65 (77) 97 12/06/19 00:00 98.1 81 20 103/61 (75) 95 12/05/19 20:32 Room Air 12/05/19 19:53 97.9 65 18 105/68 (80) 98 12/05/19 16:00 97.4 68 20 103/64 (77) 99 12/05/19 12:00 97.2 66 19 100/60 (73) 99 Intake and Output 12/05/19 12/06/19 19:00 07:00 Intake Total 400 ml Output Total 600 ml 400 ml Balance -200 ml -400 ml Intake Oral 400 ml Output Urine Total 600 ml 400 ml # Voids 1 1 # Bowel Movements 2 Height (Feet): 5 Height (Inches): 7.00 Weight (Pounds): 114 Sienna Georges M.D. Dec 06, 2019 09:13
--- NOTE | 2019-12-06 10:12 | Hematology/Onc Progress Note ---
Assessment/Plan Assessment/Plan # Acute left upstream popliteal vein deep venous thrombosis IVC filter in place --> given acute nature, will continue eliquis --> HOWEVER, if drop in h/h consider to hold eliquis as has ivc in place --> IVC Filter placed earlier # Anemia rule out gi bleed, as well as iron deficiency --> hgb 8.2-->7.2-->7.1->6.9-->8.6-->8.3-->9.3-->8.3-->9.3--.9.2->8.7->8-->8.7 --> anemia panel ordered--> cw acd --> occult blood pending-->neg --> gi eval prn --> transfuse as needed --> transfuse 2 units 10/27 --> po iron to continue # Coagulopathy with elev ptt/inr --> vitk and ffp as needed --> no bleeding noted at this time # Thrombocytosis likely reactive process --> plt 398-->608-->605 --> abx as needed # Sepsis due to uti, with Hypotension likely due to septic shock. Was diuresing heavily at 300 mL an hour. --> Continue on midodrine and dopamine. --> ABX vancomycin and meropenem and amikacin-->christel/vanc/difluc-->vanc/linezolid --> before requires pressors --> as per cards # Bradycardia. --> per cards # Paraplegia. # LLQ colostomy # Decubitus ulcers with sacral decubitus. # Dvt ppx eliquis Appreciate consultation and chandrakant RN Subjective Constitutional: Denies: no symptoms, chills, fever, malaise, weakness, other HEENT: Denies: no symptoms, eye pain, blurred vision, tearing, double vision, ear pain, ear discharge, nose pain, nose congestion, throat pain, throat swelling, mouth pain, mouth swelling, other Respiratory: Denies: no symptoms, cough, shortness of breath, SOB with excertion, SOB at rest, sputum, wheezing, other Gastrointestinal/Abdominal: Denies: no symptoms, abdomen distended, abdominal pain, black stools, tarry stools, blood in stool, constipated, diarrhea, difficulty swallowing, nausea, poor appetite, poor fluid intake, rectal bleeding, vomiting, other Genitourinary: Denies: no symptoms, burning, discharge, frequency, flank pain, hematuria, incontinence, pain, urgency, other Neurologic/Psychiatric: Denies: no symptoms, anxiety, depressed, emotional problems, headache, numbness, paresthesia, pre-existing deficit, seizure, tingling, tremors, weakness, other Endocrine: Denies: no symptoms, excessive sweating, flushing, intolerance to cold, intolerance to heat, increased hunger, increased thirst, increased urine, unexplained weight gain, unexplained weight loss, other Allergies: Coded Allergies: No Known Allergies (Unverified , 08/15/19) Subjective 10/27 labs again refused this am, yesterday was low, chandrakant england in icu 10/28 remains in icu, for 2units prbc this am, chandrakant england, no other events 10/29 s/p prbc, tolerated it well, no bleeding, on 1mcg levo, in icu 10/30 on abx, on levo and overnight no other events, chandrakant englandrn triage\ 10/31 wounds improved, labs noted, no bleeding, hgb lower, refusing care/wound care 11/01 labs noted, no bleeding, no hematochezia, no hemoptysis, cbc ordered 11/02 meds reviewed, labs noted, no bleeding, chandrakant england, no major changes, hgb 8.3 11/04 labs have been noted, no bleeding, meds reviewed, no hemolysis 11/05 functional colostomy llq, no bleeding, cbc is pending for am 11/06 labs have been refused, hgb 8.3, no bleeding, wbc is higher in am 11/07 labs have initially been refused, no bleeding in am, wbc 13, on abx 11/08 labs reviewed, no bleeding, chandrakant england, cbc is pending for am 11/09 is on vanc/difl/christel, no other changes, cbc and bmp are noted 11/11 has been asymptomatic, eating breakfast, hgb 9.3, on abx 11/12 labs are noted, no bleeding, chandrakant england, no major changes, abx 11/13 is currently on christel and vanc, chandrakant england, no major bleeding, on hep sq 11/14 labs are noted, does not want to be changed currently, cbc/bmp ordered 11/15 labs reviewed, c/o pain at picc line, no bleeding, meds noted, hgb 8.7 11/16 labs are noted, has been cleared, for dc planning to snf 11/[address], no bleeding, meds noted, continues to be on heparin sq 11/19 labs noted, no bleeding, comfortable, cbc is ntoed and bmp for am labs 11/[address], with dressing change as needed, meds noted, labs reviewed 11/[address], is on vanc/christel seen by id, no major changes 11/22 labs reviewed, with colostomy, donohue catheter, ct of a/p noted 11/23 meds noted, no bleeding, have ordered for eliquis and chandrakant Razo in am 11/25 labs noted, no bleeding, on blood thinner is on vanc/linezolid, hgb 8 11/26 remains on eliquis, no bleeding, meds noted, eating breakfast this am 11/27 low bp, ns given, meds are reviewed, no major hemolysis, remains on po iron 11/28 on eliquis, ferrous suldate, no bleeding, comfortable 12/01 labs are noted, on anticaog, also hgb 8, no bleeding, comfortable 12/02 is without events, no bleeding, labs reviewed, no bleeding, meds noted 12/03 initially refused labs but now feeling better, cbc pending for am 12/04 labs noted, no bleeding, meds noted as well 12/05 labs noted, no bleeding, meds reviewed, hgb 8.7, colostomy in place Objective Objective Current Medications Medications (Trade) Dose Ordered Sig/May Route PRN Reason Start Time Stop Time Status Last Admin Dose Admin Acetaminophen/ Hydrocodone Bitart ([place] 5/325) 1 tab Q6H PRN ORAL Severe Pain (Pain Scale 7-10) 12/04/19 10:36 12/11/19 10:35 12/05/19 14:53 Apixaban (Eliquis) 2.5 mg BID ORAL 11/24/19 09:00 02/22/20 08:59 12/06/19 08:44 Bisacodyl (Dulcolax) 10 mg DAILYPRN PRN RECTAL Constipation 11/24/19 07:45 02/22/20 07:44 Chlorhexidine Gluconate (Simran-Hex 2%) 1 applic DAILY@2000 TOPIC 11/13/19 20:00 02/11/20 19:59 12/05/19 20:03 Desmopressin Acetate (Ddavp) 1 spray DAILY NASAL 11/14/19 09:00 02/07/20 17:59 12/06/19 08:44 Dextrose (Dextrose 50%) 25 ml Q30M PRN IV Hypoglycemia 11/05/19 13:30 01/21/20 17:29 Dextrose (Dextrose 50%) 50 ml Q30M PRN IV Hypoglycemia 11/05/19 13:30 01/21/20 17:29 Famotidine (Pepcid) 20 mg DAILY ORAL 11/06/19 09:00 01/28/20 09:29 12/06/19 08:44 Ferrous Sulfate (Feosol) 325 mg DAILY ORAL 11/06/19 09:00 01/22/20 08:59 12/06/19 08:44 Fludrocortisone Acetate (Florinef) 0.1 mg DAILY ORAL 11/15/19 09:00 12/15/19 08:59 12/06/19 08:44 Magnesium Hydroxide (Mom) 30 ml HSPRN PRN ORAL Constipation 11/13/19 11:15 12/13/19 11:14 Midodrine (Pro-Amatine) 10 mg EVERY 8 HOURS ORAL 11/05/19 14:00 01/21/20 17:59 12/06/19 05:32 Naloxone HCl (Narcan) 0.2 mg Q2M PRN IVP RESPRITORY DEPRESSION RR<8 11/24/19 10:15 02/22/20 10:14 Senna/Docusate Sodium (Haley-Colace) 1 tab TWICE A DAY ORAL 11/24/19 09:00 12/24/19 08:59 12/06/19 08:43 Sodium Hypochlorite (Dakin's Quarter Strength) 1 applic DAILY TOPIC 12/01/19 09:00 12/31/19 08:59 12/06/19 08:44 Sodium Chloride (NaCl) 1 gm THREE TIMES A DAY ORAL 11/09/19 13:00 12/09/19 12:59 12/06/19 08:44 Zinc Sulfate (Zinc Sulfate) 220 mg DAILY ORAL 11/06/19 09:00 01/22/20 08:59 12/06/19 08:43 Last 24 Hour Vital Signs Date Time Temp Pulse Resp B/P (MAP) Pulse Ox O2 Delivery O2 Flow Rate FiO2 12/06/19 09:00 Room Air 12/06/19 08:00 98.5 57 18 106/64 (78) 98 12/06/19 04:00 97.7 76 17 100/65 (77) 97 12/06/19 00:00 98.1 81 20 103/61 (75) 95 12/05/19 20:32 Room Air 12/05/19 19:53 97.9 65 18 105/68 (80) 98 12/05/19 16:00 97.4 68 20 103/64 (77) 99 12/05/19 12:00 97.2 66 19 100/60 (73) 99 12/05/19 09:00 Room Air 12/05/19 08:00 98.3 78 18 98/60 (73) 98 12/05/19 06:10 98.6 12/05/19 04:00 98.6 73 18 94/57 (69) 97 12/05/19 00:14 98.3 79 18 99/52 (68) 98 12/04/19 20:49 Room Air 12/04/19 20:02 98.5 74 17 96/55 (69) 97 12/04/19 15:49 98.4 93 19 108/71 (83) 98 12/04/19 14:37 98.6 12/04/19 12:07 98.6 97 19 110/68 (82) 97 12/04/19 10:46 Room Air Intake and Output 12/05/19 12/06/19 19:00 07:00 Intake Total 400 ml Output Total 600 ml 400 ml Balance -200 ml -400 ml Intake Oral 400 ml Output Urine Total 600 ml 400 ml # Voids 1 1 # Bowel Movements 2 Labs Test 12/04/19 09:10 White Blood Count 9.5 K/UL (4.8-10.8) Red Blood Count 3.34 M/UL (4.70-6.10) Hemoglobin 8.7 G/DL (14.2-18.0) Hematocrit 27.4 % (42.0-52.0) Mean Corpuscular Volume 82 FL (80-99) Mean Corpuscular Hemoglobin 26.1 PG (27.0-31.0) Mean Corpuscular Hemoglobin Concent 31.8 G/DL (32.0-36.0) Red Cell Distribution Width 14.9 % (11.6-14.8) Platelet Count 426 K/UL (150-450) Mean Platelet Volume 4.4 FL (6.5-10.1) Neutrophils (%) (Auto) 59.7 % (45.0-75.0) Lymphocytes (%) (Auto) 24.8 % (20.0-45.0) Monocytes (%) (Auto) 12.7 % (1.0-10.0) Eosinophils (%) (Auto) 1.3 % (0.0-3.0) Basophils (%) (Auto) 1.6 % (0.0-2.0) Height (Feet): 5 Height (Inches): 7.00 Weight (Pounds): 114 Objective Physical Exam General Appearance: lethargic Lines, tubes and drains: peripheral, central line HEENT: normocephalic Neck: non-tender, normal alignment Respiratory/Chest: lungs clear Cardiovascular/Chest: normal peripheral pulses, normal rate, regular rhythm Abdomen: normal bowel sounds, non tender ++ llq colostomy : ++Martínez Geiger MD Dec 06, 2019 10:12
--- NOTE | 2019-12-06 10:31 | Pulmonology Progress Note ---
Subjective ROS Limited/Unobtainable: No Interval Events: None new Constitutional: Denies: fever HEENT: Repors: no symptoms Respiratory: Reports: no symptoms Cardiovascular: Reports: no symptoms Gastrointestinal/Abdominal: Denies: nausea, vomiting, diarrhea Genitourinary: Reports: no symptoms Psychiatric: Denies: depression Skin: Denies: rash Musculoskeletal: Denies: pain Allergies: Coded Allergies: No Known Allergies (Unverified , 08/15/19) All Systems: reviewed and negative except above Objective Last 24 Hour Vital Signs Date Time Temp Pulse Resp B/P (MAP) Pulse Ox O2 Delivery O2 Flow Rate FiO2 12/06/19 09:00 Room Air 12/06/19 08:00 98.5 57 18 106/64 (78) 98 12/06/19 04:00 97.7 76 17 100/65 (77) 97 12/06/19 00:00 98.1 81 20 103/61 (75) 95 12/05/19 20:32 Room Air 12/05/19 19:53 97.9 65 18 105/68 (80) 98 12/05/19 16:00 97.4 68 20 103/64 (77) 99 12/05/19 12:00 97.2 66 19 100/60 (73) 99 Intake and Output 12/05/19 12/06/19 19:00 07:00 Intake Total 400 ml Output Total 600 ml 400 ml Balance -200 ml -400 ml Intake Oral 400 ml Output Urine Total 600 ml 400 ml # Voids 1 1 # Bowel Movements 2 General Appearance: no acute distress HEENT: normocephalic Respiratory: chest wall non-tender, lungs clear Cardiovascular: normal peripheral pulses, regular rhythm Abdomen: normal bowel sounds Extremities: no cyanosis Current Medications Medications (Trade) Dose Ordered Sig/Mya Route PRN Reason Start Time Stop Time Status Last Admin Dose Admin Acetaminophen/ Hydrocodone Bitart ([place] 5/325) 1 tab Q6H PRN ORAL Severe Pain (Pain Scale 7-10) 12/04/19 10:36 12/11/19 10:35 12/05/19 14:53 Apixaban (Eliquis) 2.5 mg BID ORAL 11/24/19 09:00 02/22/20 08:59 12/06/19 08:44 Bisacodyl (Dulcolax) 10 mg DAILYPRN PRN RECTAL Constipation 11/24/19 07:45 02/22/20 07:44 Chlorhexidine Gluconate (Simran-Hex 2%) 1 applic DAILY@2000 TOPIC 11/13/19 20:00 02/11/20 19:59 12/05/19 20:03 Desmopressin Acetate (Ddavp) 1 spray DAILY NASAL 11/14/19 09:00 02/07/20 17:59 12/06/19 08:44 Dextrose (Dextrose 50%) 25 ml Q30M PRN IV Hypoglycemia 11/05/19 13:30 01/21/20 17:29 Dextrose (Dextrose 50%) 50 ml Q30M PRN IV Hypoglycemia 11/05/19 13:30 01/21/20 17:29 Famotidine (Pepcid) 20 mg DAILY ORAL 11/06/19 09:00 01/28/20 09:29 12/06/19 08:44 Ferrous Sulfate (Feosol) 325 mg DAILY ORAL 11/06/19 09:00 01/22/20 08:59 12/06/19 08:44 Fludrocortisone Acetate (Florinef) 0.1 mg DAILY ORAL 11/15/19 09:00 12/15/19 08:59 12/06/19 08:44 Magnesium Hydroxide (Mom) 30 ml HSPRN PRN ORAL Constipation 11/13/19 11:15 12/13/19 11:14 Midodrine (Pro-Amatine) 10 mg EVERY 8 HOURS ORAL 11/05/19 14:00 01/21/20 17:59 12/06/19 05:32 Naloxone HCl (Narcan) 0.2 mg Q2M PRN IVP RESPRITORY DEPRESSION RR<8 11/24/19 10:15 02/22/20 10:14 Senna/Docusate Sodium (Haley-Colace) 1 tab TWICE A DAY ORAL 11/24/19 09:00 12/24/19 08:59 12/06/19 08:43 Sodium Hypochlorite (Dakin's Quarter Strength) 1 applic DAILY TOPIC 12/01/19 09:00 12/31/19 08:59 12/06/19 08:44 Sodium Chloride (NaCl) 1 gm THREE TIMES A DAY ORAL 11/09/19 13:00 12/09/19 12:59 12/06/19 08:44 Zinc Sulfate (Zinc Sulfate) 220 mg DAILY ORAL 11/06/19 09:00 01/22/20 08:59 12/06/19 08:43 Assessment/Plan Assessment/Plan IMPRESSION: 1. Septic shock. resolved 2. Complicated UTI with history of previous ESBL infection. 3. Paraplegia. 4. Sacral decubitus. 5. snf resident. DISCUSSION: DVT and GI prophylaxes. Continue Oxygen prn, doing well on room air at this time. DC planning Gregg Curtis M.D. Gregg Curtis MD Dec 06, 2019 10:30
[2019-12-06 12:00] VITALS: BP 108/55
--- NOTE | 2019-12-06 12:18 | General Progress Note ---
Subjective ROS Limited/Unobtainable: Yes Genitourinary: Reports: other - concern for donohue clogged Allergies: Coded Allergies: No Known Allergies (Unverified , 08/15/19) All Systems: reviewed and negative except above Subjective no acute events overnight. Denies any issues but complained of possible donohue catheter blockage. Myself and nurse flushed the donohue which showed adequate flow. Objective Last 24 Hour Vital Signs Date Time Temp Pulse Resp B/P (MAP) Pulse Ox O2 Delivery O2 Flow Rate FiO2 12/06/19 09:00 Room Air 12/06/19 08:00 98.5 57 18 106/64 (78) 98 12/06/19 04:00 97.7 76 17 100/65 (77) 97 12/06/19 00:00 98.1 81 20 103/61 (75) 95 12/05/19 20:32 Room Air 12/05/19 19:53 97.9 65 18 105/68 (80) 98 12/05/19 16:00 97.4 68 20 103/64 (77) 99 Intake and Output0 12/05/19 12/06/19 19:00 07:00 Intake Total 400 ml Output Total 600 ml 400 ml Balance -200 ml -400 ml Intake Oral 400 ml Output Urine Total 600 ml 400 ml # Voids 1 1 # Bowel Movements 2 Height (Feet): 5 Height (Inches): 7.00 Weight (Pounds): 114 General Appearance: no apparent distress, confused, thin EENT: PERRL/EOMI Neck: non-tender, supple Cardiovascular: normal rate, regular rhythm, no JVD Respiratory/Chest: lungs clear, normal breath sounds, no respiratory distress Abdomen: normal bowel sounds, non tender, soft, other - left sided colostomy bag, with solid stool Extremities: normal range of motion, non-tender, other - bilateral lower extremeity paraplegia Edema: no edema noted Arm (L), no edema noted Arm (R), no edema noted Leg (L), no edema noted Leg (R), no edema noted Pedal (L), no edema noted Pedal (R), no edema noted Generalized Neurologic: access coordinator II-XII grossly normal, alert Skin: normal pigmentation, warm/dry Assessment/Plan Assessment/Plan: 59 year old man who presents from [facility] with weakness, encephalopathy, concern for septic shock, possible from UTI. #Acute Left Popliteal DVT - US LLE DVT 11/23/2019 -Pt has IVC filter -D/w Heme, cont eliquis 2.5 BID -monitor for signs of bleeding #Septic Shock w/ /MSK/Pulm source ( Proteus, Actinobacter, GPC, fungal UTI and Sacral Ulcer, ?HCAP) - resolved #Bilateral LE Paraplegia #Sacral pressure ulcer, present on admit - Cont Local wound care and offloading - monitoring off abx #Sacral Decubitus Ulcer -d/w with surgery, reviewed CT findings, sacral pressure ulcer does not appear to be infected, ct findings consistent w/sacral ulcer -wound care daily -appreciate wound care recs -abx per ID as above #Stool Impaction - improved -cont Docusate-senna daily -PRN dulcolax #Sinus Bradycardia - resolved -continue telemetry -EP following #Labile BP - stable #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 -Evaluated by endocrine for adrenal insufficiency -AM cortisol normal however patient continues to have labile BP and hyponatremia - Appreciate Nephrology consult - Appreciate Endocrine consult - Will continue Florinef, Salt Tab, and DDAVP - Continue Midodrine given labile BP - has been refusing labs periodically #Anemia, acute on chronic - stable -s/p 2 units RBC 10/28 -Hematology following, no signs of overt bleeding - Continue Iron tab - Keep Hb >7 #Chronic Lower extremity pain Likely 2' contractures and prior accident - Gabapentin, [place], Baclofen - pain management consulted, recs appreciated DVT: Eliquis 2.5 BID Diet: Regular Abx: none Fluids: none Gi: none #Dispo - Awaiting SNF bed placement. Appreciate referrals placed by CM. I spent 35 minutes on this patient's care today, and 23 mins was dedicated to counseling and care coordination. New to service and discussed plan of care with all consultants. Time of note doesn't reflect time of encounter. Justin Umana D.O Dec 06, 2019 12:18
[2019-12-06] MEDS ORDERED: NORCO 5-325 TA1 EAC1 ORAL (14:05)
[2019-12-06] MEDS ORDERED: ELIQUIS2.5 MG PO (14:06)
[2019-12-06] MEDS ORDERED: PRO-AMATINE10 MG ORAL (14:07)
[2019-12-06] MEDS ORDERED: SENNA8.6 M2 PO (14:08)
[2019-12-06] MEDS ORDERED: ZINC SULFATE220 M2 ORAL (14:09)
[2019-12-06] MEDS ORDERED: CHLORHEXIDINE118 ML TP (14:10)
--- NOTE | 2019-12-06 14:38 | Cardiac Electrophysiology PN ---
Assessment/Plan Assessment/Plan 1. S/P Septic shock on Midodrine and antibiotic 2. Bradycardia. Resolved. 3. Paraplegia. 4. Urinary tract infection, 5. Decubitus ulcers with sacral decubitus. 6. S/P Ileostomy/ 7. Polyuria, DI. On Salt tablets DW RN Going to [facility] today Subjective Subjective Alert in NAD.Going to [facility] today Objective Last 24 Hour Vital Signs Date Time Temp Pulse Resp B/P (MAP) Pulse Ox O2 Delivery O2 Flow Rate FiO2 12/06/19 12:00 97.9 76 18 108/55 (72) 99 12/06/19 09:00 Room Air 12/06/19 08:00 98.5 57 18 106/64 (78) 98 12/06/19 04:00 97.7 76 17 100/65 (77) 97 12/06/19 00:00 98.1 81 20 103/61 (75) 95 12/05/19 20:32 Room Air 12/05/19 19:53 97.9 65 18 105/68 (80) 98 12/05/19 16:00 97.4 68 20 103/64 (77) 99 Intake and Output 12/05/19 12/06/19 19:00 07:00 Intake Total 400 ml Output Total 600 ml 400 ml Balance -200 ml -400 ml Intake Oral 400 ml Output Urine Total 600 ml 400 ml # Voids 1 1 # Bowel Movements 2 Objective HEAD AND NECK: No JVD. LUNGS: Coarse rhonchi. CARDIOVASCULAR: Regular S1 and S2 with no gallop. ABDOMEN: Soft. S/P Ileostomy EXTREMITIES: No pitting edema Carloz Estes MD Dec 06, 2019 14:38
--- NOTE | 2019-12-06 14:46 | Discharge Summary ---
Discharge Summary Hospital Course Date of Admission Oct 23, 2019 at 15:40 Date of Discharge Dec 06, 2019 Admitting Diagnosis HPI 59-year-old male with past medical history of paraplegia, sacral decubitus ulcer, anemia, hypertension, ESBL multidrug-resistant urinary tract infection [facility] for hypotension, general weakness and confusion. In ED he was noted to be altered with mild hypotension with SBP in 90s, lactate 2.0, UA with mild pyuria. Patient was to be admitted to tele but was upgraded to MICU due to persistent hypotension and bradycardia to 44, started on Levophed and dopamine overnight by revenue liaison. Patient seen and examined, feels well, denies any specific complaints such as CP, dyspnea, weakness, dizziness. Consultations Surgery Pulmonary Nephrology ID Cardiolopgy/EP Endocrinology Heme/onc Hospital Course 59 year old man who initially presented on Oct 23, 2019 from [facility] with weakness, encephalopathy, concern for septic shock, possible from UTI vs infected sacral pressure ulcer. He was initially admitted to the ICU for pressor support and treatment of sepsis UTI/PNA. Urine cultures were positive for VRE, Ecoli, Proteus, Rita, and Acintobacter on multiple cultures throughout his hospit alization. He was treated with multiple abx which included zyvox, diflucan, vancomycin, merrem, flagyl as directed by ID. After he was weaned off pressors and downgraded he was found to have sinus bradycardia which was evaluated by cardio with no interventions warranted. He Required transfusion for anemia of 2 units pRBC during this hospitalization. stage IV Pressure ulcers evaluated by surgery see below for recs. Patient started on midodrine and fludrocortisone for labile BP; addrenal insuffiency r/o by endocrinology. Patient was found to have a DVT in left LE and IVC filter was placed and started only eliquis at DVT ppx dose recommended by heme/onc due to concerns of bleeding given recent transfusion. Patient has been otherwise stable for the couple weeks; no hemodynamic or respiratory compromise while off abx for a week. He will be discharged to SNF today for further care and support. #Acute Left Popliteal DVT - US LLE DVT 11/23/2019 - Findings: On the left, noncompressible thrombus is seen within the popliteal vein upstream, with resultant cessation of flow. -Pt has IVC filter -D/w Heme, cont eliquis 2.5 BID -monitor for signs of bleeding #Septic Shock w/ /MSK/Pulm source ( Proteus, Actinobacter, GPC, fungal UTI, VRE and Sacral Ulcer, ?HCAP) - resolved #Bilateral LE Paraplegia #Sacral pressure ulcer, present on admit - Cont Local wound care and offloading - monitoring off abx #Stage IV Sacral Decubitus Ulcer Cleanse Sacral Wound and R Ischial wounds with Dakin's 0.125% gian. Loosely pack wounds with Hydrogel impregnated Kerlix. Apply Moisture Barrier Paste periwound. Cover with ABD Pads secure with Tegaderm drsg.Daily and prn. Apply Triad Paste to R Hip/R trochanteric areas.Cover with Optifoam drsg. Change every 7 days and prn. Apply Betadine to Medial R Knee. Cover with Optifoam drsg. Change every 7 days and prn. Apply Betadine to R and L Heels. Cover each Heel with Optifoam drsgs. Change every 7 days and prn. Cover Bony Prominences as needed with Optifoam drsgs. Reposition at least every [address] Pillow between knees. Off-load heels with pillow. 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 -Evaluated by endocrine for adrenal insufficiency -AM cortisol normal however patient continues to have labile BP - Will continue Florinef, Salt Tab, and DDAVP - Continue Midodrine given labile BP #Anemia, acute on chronic - stable -s/p 2 units RBC 10/28 -Hematology following, no signs of overt bleeding - Continue Iron tab - Keep Hb >7 #Chronic Lower extremity pain Likely 2' contractures and prior accident - Gabapentin, [place], Baclofen - pain management consulted, recs appreciated # Left colostomy # Chronic Indwelling donohue catheter I spent 45 minutes on this discharge encounter, with 31 minutes discussing and coordinating care with RN and consultants. Time does not reflect time of patient seen. Discharge Medications New Medications: Desmopressin Acetate (Desmopressin Acetate) 10 Mcg/0.1 Ml [place].pump 1 SPRAY NASAL DAILY for 30 Days, #30 SPRAY Ferrous Sulfate (Feosol) 325 Mg Tablet 325 MG ORAL DAILY for 30 Days, TAB Fludrocortisone Acetate (Fludrocortisone Acetate) 0.1 Mg Tablet 0.1 MG ORAL DAILY for 30 Days, #30 TAB Continued Medications: Acetaminophen* (Acetaminophen 325MG Tablet*) 325 Mg Tablet 650 MG ORAL Q6H PRN for pain/fever, TAB Apixaban (Eliquis) 2.5 Mg Tablet 2.5 MG PO BID for PROPHYLAXIS, TAB Ascorbic Acid* (Ascorbic Acid*) 500 Mg Tablet 500 MG ORAL DAILY for wound healing, TAB Chlorhexidine Gluconate (Chlorhexidine Gluconate) 118 Ml Liquid 118 ML TP DAILY for wound care, ML Docusate Sodium* (Docusate Sodium*) 100 Mg Capsule 100 MG ORAL TWICE A DAY for prophylaxis, CAP Ferrous Sulfate* (Ferrous Sulfate*) 325 Mg Tablet 325 MG ORAL DAILY for anemia, #30 TAB 0 Refills Hydrocodone Bit/Acetaminophen 5-325* ([place] 5-325 Tablet*) 1 Each Tablet 1 TAB ORAL Q6H PRN for FOR PAIN, #10 TAB 0 Refills Midodrine (Midodrine HCl) 10 Mg Tablet 10 MG ORAL EVERY 8 HOURS for Hypotension, TAB Multivitamins* (Multivitamins*) 1 Each Tablet 1 TAB ORAL DAILY for supplement, TAB 0 Refills Omeprazole (Omeprazole) 20 Mg Capsule.dr 20 MG ORAL TWICE A DAY for GI ppx, CAP Sennosides (Senna) 8.6 Mg Tablet 8.6 MG PO BID for constipation, TAB Zinc Sulfate (Zinc Sulfate) 220 Mg Tablet 220 MG ORAL DAILY for supplement, #30 TAB 0 Refills Discharge Condition Upon Discharge: stable Discharge Vital Signs Last Vital Signs Date Time Temp Pulse Resp B/P (MAP) Pulse Ox O2 Delivery O2 Flow Rate FiO2 12/06/19 12:00 97.9 76 18 108/55 (72) 99 12/06/19 09:00 Room Air Discharge Disposition Patient was discharged to Discharge Diagnoses: (1) DVT, lower extremity, proximal (2) Septic shock (3) SEAN (acute kidney injury) (4) Decubital ulcer (5) UTI (urinary tract infection) (6) Sepsis (7) Urinary tract infection in male (8) Anemia (9) Encephalopathy Justin Umana D.O Dec 06, 2019 14:46
[2019-12-06 16:00] VITALS: BP 101/59
--- NOTE | 2019-12-06 16:10 | Surgery Progress Note ---
Surgery Progress Note Subjective Symptoms: improved, tolerating diet, passing flatus Objective Last 24 Hour Vital Signs Date Time Temp Pulse Resp B/P (MAP) Pulse Ox O2 Delivery O2 Flow Rate FiO2 12/06/19 12:00 97.9 76 18 108/55 (72) 99 12/06/19 09:00 Room Air 12/06/19 08:00 98.5 57 18 106/64 (78) 98 12/06/19 04:00 97.7 76 17 100/65 (77) 97 12/06/19 00:00 98.1 81 20 103/61 (75) 95 12/05/19 20:32 Room Air 12/05/19 19:53 97.9 65 18 105/68 (80) 98 I&O Intake and Output 12/05/19 12/06/19 19:00 07:00 Intake Total 400 ml Output Total 600 ml 400 ml Balance -200 ml -400 ml Intake Oral 400 ml Output Urine Total 600 ml 400 ml # Voids 1 1 # Bowel Movements 2 Dressing: saturated Cardiovascular: RSR Respiratory: decreased breath sounds Abdomen: soft, non-tender, present bowel sounds Extremities: no cyanosis Plan Problems: (1) Abdominal distension Assessment & Plan: abd distention soft non tender ostomy viable and reduced KUB ordered pending results improved comfortable no complaints okay for diet s tolerated d/c planning much improved There is an inferior vena cava filter in place. Bowel gas pattern is unremarkable. Considerable stool is seen in the transverse and distal colon. There is extensive pelvic deformity, with loss of the left femoral head, chronic dislocation of the left femur, and extensive pelvic deformity, particularly on the left. Adi project over the upper pelvis Impression: Possible constipation. pending placement Nonobstructed bowel gas pattern. Moderate fecal retention of the ascending colon and sigmoid colon. The degree of stool burden has increased from October 25, 2019. IVC filter, incidentally noted. Partial subluxation of the right hip. Osteotomy of the proximal left femur with deformity of the bilateral pubic rami and left acetabulum, unchanged. 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 [place] Shaped, Full Thickness Sacral Pressure Injury which extends into L ischium. (L)15.4cm x (W)18cm x (D)2.4cm, Undermining clockwise 10-2 by 7.7cm @11o'clock. Base of wound is moist,pink with scattered slough at base of wound. Bone is palpable at the Base. No odor or exudate noted. Scattered partial thickness wounds and Serous filled blisters noted to R trochanteric /R Hip areas. Historical scar noted to L groin, L Hip L Buttocks. Bony protrusion noted at L Hip. Full thickness Pressure Injury R Ischium(L)5.4cm x(W)6.9cm x (D)1.8cm,Undermining clockwise 1-4 by 2.7cm @2o'clock, Tunneling@7o'clock 2.9cm. Base of wound is moist pink with scattered slough. Scattered slough noted along borders. NO odor or exudate noted. Stable dry eschar noted to medial R knee 0.7cm x (W)0.4cm. Periwound is erythematous and indurated. No elevation in skin temp noted. L heel has shaved appearance secondary to Hx of Pressure Injuries. Base of heel is pale pink. Bone is palpable. Small area of slough noted within compromised area(L)0.6cm x (W)0.8cm. L Heel Also has shaved appearance with hypertrophic scarring. Base of compromised area is pale pink, Bone is palpable, with scattered loose, dry and scaly skin. Patient's wound remains very large extensive and requires significant amount of care. Continued care of the wounds have been provided though patient is having continence through the anus at this time again despite diversion. Wounds remain saturated times and great nursing care is being provided unfortunately inevitable decline is still significantly potential given his overall condition. Tx.Plan: Cleanse Sacral Wound and R Ischial wounds with Dakin's 0.125% gian. Loosely pack wounds with Hydrogel impregnated Kerlix. Apply Moisture Barrier Paste periwound. Cover with ABD Pads secure with Tegaderm drsg.Daily and prn. Apply Triad Paste to R Hip/R trochanteric areas.Cover with Optifoam drsg. Change every 7 days and prn. Apply Betadine to Medial R Knee. Cover with Optifoam drsg. Change every 7 days and prn. Apply Betadine to R and L Heels. Cover each Heel with Optifoam drsgs. Change every 7 days and prn. Cover Bony Prominences as needed with Optifoam drsgs. Reposition at least every 2 [address] tolerated[address] Pillow between knees. Off-load heels with pillow. APM/SUMI Mattress overlay DAILY ESTIMATED NEEDS: Needs based on Advanced wounds, wt loss/ 40.18kg 35-40 kcals/kg 6453-7237 total kcals 1.5-2.0 g protein/kg 60-80 g total protein 25-35ml/kcal mL/kg 4551-9065 total fluid mLs NUTRITION DIAGNOSIS: Increased kcal/prot/micronutrients needs R/T wound healing and underweight status as evidenced by pt admitted w/ multiple advanced wounds, refer to WC jair, pt now w/ further 3% unfavorable wt loss, currently BMI underweight per guidelines, @62% of [place] Body Weight. CURRENT DIET: Regular PO DIET RECOMMENDATIONS: REGULAR, texture as tolerated or per [facility] + Ensure Enlive TID w/ meals ADDITIONAL RECOMMENDATIONS: * Per SNF: HT=66" WT=88lbs; -> vs current EMR wt =120# -> Recalibrate bed scale for accurate wts * Continue Ensure TID, whole milk TID w/ meals * Monitor for continued improved/good Po intake * Wound healing:add MVI w/ min qdaily Continue w/ ZnSO4, Vit C, and Amari BID * Monitor Na, need for fluid restriction - (132 improved, on nacl) (15) SEAN (acute kidney injury) (16) Ileostomy prolapse Assessment & Plan: currently reduced but abd distended pending films films reviewed improved okay for diet d/c planning There is what appears to be a diverting colostomy of the distal sigmoid in the l eft lower quadrant. There is distention of the rectum with feces, rectal diameter 70 mm. There is some thickening of the rectal wall. The appendix is not definitely visualized, but no findings to suggest acute appendicitis are evident. There is considerable stool throughout the colon. There appears to be rectal incontinence of stool despite the diverting colostomy. Cornelius Salgado Dec 06, 2019 16:09
--- NOTE | 2019-12-06 16:18 | Infectious Diseases Prog Note ---
Assessment/Plan Assessment/Plan ASSESSMENT AND PLAN: 1. hx sepsis/shock, hx proteus uti, hx esbl e.coli uti, possible aspiration pna/hcap vs cap, sacral wound - ? infected, mrsa and vre colonization fevers, leukocytosis - new acinetobacter uti and vre uti, + urine culture CT abdomen and pelvis without acute abscess, blood cultures negative ? pna on chest x-ray vs atx, ? aspiration pna/hcap - s/p polymyxin and zyvox - monitor labs, chest x-ray and temperatures - clinically improved, fevers improved - will sign, off, call if any questions - thank you 2. ICU care. 3. Sacral wound -wound mostly clean, management per surgery 4. Ostomy malfunction - per surgery 5. Hypertension. 6. Paraplegia. 7. Anemia. 8. History of decubitus ulcer, rule out infection. Infectious diseases is following. The patient on antibiotics. 9. Hypertension treatment per primary care team. 10. Continue treatment per primary consultants. 11. No known drug allergies. 12. Social history is negative. 13. Family history is noncontributory. 14. MAR was noted. 15. Case discussed with RN. Subjective Constitutional: Denies: fever HEENT: Denies: congestion Respiratory: Denies: shortness of breath Cardiovascular: Denies: chest pain Gastrointestinal/Abdominal: Denies: nausea, vomiting, diarrhea Genitourinary: Reports: other - + donohue Neurologic: Denies: headache Psychiatric: Denies: depression Skin: Denies: rash Hematologic: Denies: bleeding Musculoskeletal: Denies: pain Allergies: Coded Allergies: No Known Allergies (Unverified , 08/15/19) Objective Last 24 Hour Vital Signs Date Time Temp Pulse Resp B/P (MAP) Pulse Ox O2 Delivery O2 Flow Rate FiO2 12/06/19 12:00 97.9 76 18 108/55 (72) 99 12/06/19 09:00 Room Air 12/06/19 08:00 98.5 57 18 106/64 (78) 98 12/06/19 04:00 97.7 76 17 100/65 (77) 97 12/06/19 00:00 98.1 81 20 103/61 (75) 95 12/05/19 20:32 Room Air 12/05/19 19:53 97.9 65 18 105/68 (80) 98 Height (Feet): 5 Height (Inches): 7.00 Weight (Pounds): 114 General Appearance: no acute distress HEENT: normocephalic, atraumatic, anicteric Respiratory/Chest: lungs clear, normal breath sounds, no respiratory distress, no accessory muscle use Cardiovascular: normal rate, regular rhythm Abdomen: normal bowel sounds, soft, non tender, no organomegaly, non distended Genitourinary: other - + donohue - urine clear Extremities: no cyanosis Skin: no rash 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 There is some atelectasis at the left lung base as well. Right jugular central venous catheter remains. The heart size is normal. Impression: New/increased bilateral basilar infiltrates, since prior study 10/23/2019 Chest x-ray - 10/27/19 - Procedure: XRAY Chest 1v Indication: Shortness of breath Technique: One view of the chest Comparison: 10/25/2019 Findings: There is atelectasis possibly some focal consolidation at the right lung base. Atelectatic changes previously demonstrated at the left lung base have largely cleared. Right jugular central venous catheter remains. The heart size is normal. Impression: Improving left basilar atelectasis. Otherwise little traveler changer 2 days findings as noted Chest x-ray - 10/29/19 - FINDINGS: Lungs: Persistent subsegmental atelectasis in bilateral lower lungs, not significant changed compared to the prior exam. No new consolidation is seen. Pleural space: Unremarkable. The costophrenic angles are sharp. No visible pneumothorax. Heart: Unremarkable. No cardiomegaly. Mediastinum: Unremarkable. Bones/joints: Unremarkable. Vasculature: Mild atherosclerotic calcifications are noted within the aortic arch. Tubes, lines and devices: Stable positioning of a right IJ central venous catheter with the tip in the SVC. Telemetry leads overlie the thorax. IMPRESSION: Persistent subsegmental atelectasis in bilateral lower lungs, not significantly changed compared to the prior exam. Chest x-rasy - 11/03/19 - Procedure: XRAY Chest 1v Indication: Cough Technique: One view of the chest Comparison: 10/29/2019 Findings: There are increased atelectatic changes at the lung bases. Interim removal of previously demonstrated central venous catheter. The pleural spaces are clear. The heart size is normal. Impression: Increasing bilateral basilar atelectasis Interim central venous catheter removal. Chest x-ray - 11/07/19 - Procedure: XRAY Chest 1v Indication: Shortness of breath Technique: One view of the chest Comparison: 11/03/2019 Findings: Bilateral basilar atelectatic changes appear similar to the previous exam. There may be some patchy left perihilar and bilateral peripheral consolidation. The heart size is normal. Impression: New or increased faint patchy peripheral and left perihilar con solidative opacities, possibly reflecting multifocal pneumonia, since prior study 03/04/2019 Persistent bilateral basilar atelectatic changes Chest x-ray - 11/09/19 - Procedure: XRAY Chest 1v Indication: Cough Technique: One view of the chest Comparison: 11/07/2019 Findings: There is improved aeration of the lung bases, although some atelectasis persists bilaterally. No new infiltrates. The pleural spaces are clear. The heart size is normal. Impression: Improved aeration with decreased basilar atelectasis Chest x-ray - 11/14/19 - Procedure: XRAY Chest 1v Indication: Cough Technique: One view of the chest Comparison: 11/09/2019 Findings: Bilateral basilar atelectasis has increased. No new infiltrates. The pleural spaces remain clear. The heart size is normal. Impression: Increased bilateral basilar atelectasis, since prior study 11/09/2019 Chest x-ray - 11/15/19 - Procedure: XRAY Chest 1v Indication: Cough Technique: One view of the chest Comparison: 11/13/2019 Findings: Again demonstrated is bilateral basilar atelectasis versus scarring. The lungs and pleural spaces are otherwise clear. The heart size is normal. Interim placement right arm PICC. Impression: No acute process Chest x-ray - 11/21/19 - Procedure: XRAY Chest 1v Indication: Shortness of breath Technique: One view of the chest Comparison: 11/15/2019 Findings: Previously demonstrated basilar atelectatic changes have cleared. Lungs and pleural spaces are currently clear. The heart size is normal. There is a right arm PICC again demonstrated Impression: No acute process CT abdomen and pelvis: Impression: Extensive decubitus changes, as described, with evidence of skin thickening, surface ulceration, deep ulceration, and likely prior skin grafting. There is also evidence of extensive bone loss. This may be due to erosive changes, postsurgical changes, or likely combination of both. No findings to suggest abscess Left lower quadrant diverting sigmoid colostomy. Considerable distal stool and evidence of rectal fecal impaction and incontinence, despite this. Rectal wall thickening could indicate stercoral proctitis Splenomegaly Inferior vena cava filter Donohue catheter and empty bladder. Some calcifications are seen surrounding the Donohue balloon Posterior pulmonary dependent atelectatic changes and possible consolidation Other findings as noted, including probable hepatic and renal cysts Chest x-ray - 11/25/19 - FINDINGS: Lungs: There are mild bilateral lower lobe infiltrates consistent with nonspecific pneumonia. Pleural space: Unremarkable. No pneumothorax. Heart: Unremarkable. No cardiomegaly. Mediastinum: Unremarkable. Bones/joints: Unremarkable. Tubes, lines and devices: There is a right-sided PICC line in good position. IMPRESSION: There are mild bilateral lower lobe infiltrates consistent with nonspecific pneumonia. Chest x-ray - 11/27/19 - Procedure: XRAY Chest 1v Procedure: XRAY Chest 1v Reason for study: Shortness of breath. Comparison films: 11/25/2019. FINDINGS: Right PICC line remains in place. Vascularity is normal. There are linear atelectasis in both lung bases. Cardiac and mediastinal silhouette are within normal limits. CP angles are sharp. The bony thorax appear unremarkable. IMPRESSION: Bibasilar linear atelectasis. Microbiology Date/Time Source Procedure Growth Status 11/25/19 09:45 Blood Blood Culture - Final NO GROWTH AFTER 5 DAYS Complete 11/20/19 23:30 Indwelling Cath Urine Culture - Final Acinetobacter Baumanii - Mdr Enterococcus Faecium - Vre Complete 11/03/19 08:00 Catheter Site Catheter Tip Culture - Final Staphylococcus Sp Coag Neg Complete 11/02/19 13:30 Nasopharynx SARS-CoV-2 RdRp Gene Assay - Final Complete Labs Test 12/04/19 09:10 White Blood Count 9.5 K/UL (4.8-10.8) Red Blood Count 3.34 M/UL (4.70-6.10) Hemoglobin 8.7 G/DL (14.2-18.0) Hematocrit 27.4 % (42.0-52.0) Mean Corpuscular Volume 82 FL (80-99) Mean Corpuscular Hemoglobin 26.1 PG (27.0-31.0) Mean Corpuscular Hemoglobin Concent 31.8 G/DL (32.0-36.0) Red Cell Distribution Width 14.9 % (11.6-14.8) Platelet Count 426 K/UL (150-450) Mean Platelet Volume 4.4 FL (6.5-10.1) Neutrophils (%) (Auto) 59.7 % (45.0-75.0) Lymphocytes (%) (Auto) 24.8 % (20.0-45.0) Monocytes (%) (Auto) 12.7 % (1.0-10.0) Eosinophils (%) (Auto) 1.3 % (0.0-3.0) Basophils (%) (Auto) 1.6 % (0.0-2.0) cr - 0.6 Current Medications Medications (Trade) Dose Ordered Sig/Mya Route PRN Reason Start Time Stop Time Status Last Admin Dose Admin Acetaminophen/ Hydrocodone Bitart ([place] 5/325) 1 tab Q6H PRN ORAL Severe Pain (Pain Scale 7-10) 12/04/19 10:36 12/11/19 10:35 12/05/19 14:53 Apixaban (Eliquis) 2.5 mg BID ORAL 11/24/19 09:00 02/22/20 08:59 12/06/19 08:44 Bisacodyl (Dulcolax) 10 mg DAILYPRN PRN RECTAL Constipation 11/24/19 07:45 02/22/20 07:44 Chlorhexidine Gluconate (Simran-Hex 2%) 1 applic DAILY@2000 TOPIC 11/13/19 20:00 02/11/20 19:59 12/05/19 20:03 Desmopressin Acetate (Ddavp) 1 spray DAILY NASAL 11/14/19 09:00 02/07/20 17:59 12/06/19 08:44 Dextrose (Dextrose 50%) 25 ml Q30M PRN IV Hypoglycemia 11/05/19 13:30 01/21/20 17:29 Dextrose (Dextrose 50%) 50 ml Q30M PRN IV Hypoglycemia 11/05/19 13:30 01/21/20 17:29 Famotidine (Pepcid) 20 mg DAILY ORAL 11/06/19 09:00 01/28/20 09:29 12/06/19 08:44 Ferrous Sulfate (Feosol) 325 mg DAILY ORAL 11/06/19 09:00 01/22/20 08:59 12/06/19 08:44 Fludrocortisone Acetate (Florinef) 0.1 mg DAILY ORAL 11/15/19 09:00 12/15/19 08:59 12/06/19 08:44 Magnesium Hydroxide (Mom) 30 ml HSPRN PRN ORAL Constipation 11/13/19 11:15 12/13/19 11:14 Midodrine (Pro-Amatine) 10 mg EVERY 8 HOURS ORAL 11/05/19 14:00 01/21/20 17:59 12/06/19 13:43 Naloxone HCl (Narcan) 0.2 mg Q2M PRN IVP RESPRITORY DEPRESSION RR<8 11/24/19 10:15 02/22/20 10:14 Senna/Docusate Sodium (Haley-Colace) 1 tab TWICE A DAY ORAL 11/24/19 09:00 12/24/19 08:59 12/06/19 08:43 Sodium Hypochlorite (Dakin's Quarter Strength) 1 applic DAILY TOPIC 12/01/19 09:00 12/31/19 08:59 12/06/19 08:44 Sodium Chloride (NaCl) 1 gm THREE TIMES A DAY ORAL 11/09/19 13:00 12/09/19 12:59 12/06/19 13:43 Zinc Sulfate (Zinc Sulfate) 220 mg DAILY ORAL 11/06/19 09:00 01/22/20 08:59 12/06/19 08:43 Sharif Painting MD Dec 06, 2019 16:18
[2019-12-06 20:00] VITALS: BP 110/64
[2019-12-06] MEDS: Dyna-Hex 2% Top Sol 2oz TOPIC SCH (21:31)
[2019-12-07] VITALS: BP 102/60
[2019-12-07 04:00] VITALS: BP 101/58
[2019-12-07] MEDS: Midodrine 10mg tab ORAL SCH ×3 (05:28→21:58)
[2019-12-07 08:00] VITALS: BP 99/62
[2019-12-07] MEDS: Desmopressin Nasal 5ml NASAL SCH (08:30)
[2019-12-07] MEDS: Docusate Sod/Senna tab ORAL SCH ×2 (08:31→17:24)
[2019-12-07] MEDS: Dakin's 0.125% Soln (Quarter Strength) 16oz TOPIC SCH (08:31)
[2019-12-07] MEDS: Eliquis 2.5mg tablet ORAL SCH ×2 (08:31→17:24)
[2019-12-07] MEDS: Zinc Sulfate 220mg ORAL SCH (08:31)
[2019-12-07] MEDS: Sodium Chloride 1gm Tab ORAL SCH ×3 (08:31→17:24)
--- NOTE | 2019-12-07 09:01 | General Progress Note ---
Subjective Date patient seen: Dec 07, 2019 Time patient seen: 08:00 - AM Allergies: Coded Allergies: No Known Allergies (Unverified , 08/15/19) Subjective REVIEW OF SYSTEMS: Denies rash, fever, chills, sweating, dizziness, drowsiness, blurred vision, sore throat, or change in weight. No shortness of breath or chest pain. No nausea, vomiting, diarrhea, blood in stool or urine. HISTORY OF PRESENT ILLNESS: This is a 59-year-old male who has been seen on the Med[facility]Surg floor of [facility]. Patient reports no pain at this time tolerated on the [place] as needed. No new complaints at this time. Objective Last 24 Hour Vital Signs Date Time Temp Pulse Resp B/P (MAP) Pulse Ox O2 Delivery O2 Flow Rate FiO2 12/07/19 08:00 97.0 68 17 99/62 (74) 95 12/07/19 04:00 98.0 60 20 101/58 (72) 96 12/07/19 00:00 97.6 62 20 102/60 (74) 97 12/06/19 23:00 Room Air 12/06/19 22:50 Room Air 12/06/19 21:00 Room Air 12/06/19 20:00 98.2 76 20 110/64 (79) 98 12/06/19 16:00 98.4 79 19 101/59 (73) 97 12/06/19 12:00 97.9 76 18 108/55 (72) 99 Intake and Output 12/06/19 12/07/19 19:00 07:00 Output Total 700 ml 850 ml Balance -700 ml -850 ml Output Urine Total 700 ml 850 ml # Voids 1 # Bowel Movements 1 Height (Feet): 5 Height (Inches): 7.00 Weight (Pounds): 114 Objective PHYSICAL EXAMINATION: GENERAL: Alert, awake, and oriented. LUNGS: Decreased breath sounds bilaterally. HEART: S1, S2 regular. ABDOMEN: Colostomy bag noted. EXTREMITIES: Upper and lower extremity range of motion is decreased due to the patient's condition. Contracture is noted. Sensory is reduced. Reflexes are not obtainable. No adenopathy. Assessment/Plan Assessment/Plan: (1) Sacral decubitus ulcer (2) Paraplegia (3) Neuropathic pain Patient to be continued on [place] and Neurontin D/w Dr. Celaya and he concurred. Danny Raymundo Dec 07, 2019 09:01
--- NOTE | 2019-12-07 10:18 | Hematology/Onc Progress Note ---
Assessment/Plan Assessment/Plan # Acute left upstream popliteal vein deep venous thrombosis IVC filter in place --> given acute nature, will continue eliquis --> HOWEVER, if drop in h/h consider to hold eliquis as has ivc in place --> IVC Filter placed earlier # Anemia rule out gi bleed, as well as iron deficiency --> hgb 8.2-->7.2-->7.1->6.9-->8.6-->8.3-->9.3-->8.3-->9.3--.9.2->8.7->8-->8.7 --> anemia panel ordered--> cw acd --> occult blood pending-->neg --> gi eval prn --> transfuse as needed --> transfuse 2 units 10/27 --> po iron to continue # Coagulopathy with elev ptt/inr --> vitk and ffp as needed --> no bleeding noted at this time # Thrombocytosis likely reactive process --> plt 398-->608-->605 --> abx as needed # Sepsis due to uti, with Hypotension likely due to septic shock. Was diuresing heavily at 300 mL an hour. --> Continue on midodrine and dopamine. --> ABX vancomycin and meropenem and amikacin-->christel/vanc/difluc-->vanc/linezolid --> before requires pressors --> as per cards # Bradycardia. --> per cards # Paraplegia. # LLQ colostomy # Decubitus ulcers with sacral decubitus. # Dvt ppx eliquis Appreciate consultation and chandrakant RN Subjective Constitutional: Denies: no symptoms, chills, fever, malaise, weakness, other HEENT: Denies: no symptoms, eye pain, blurred vision, tearing, double vision, ear pain, ear discharge, nose pain, nose congestion, throat pain, throat swelling, mouth pain, mouth swelling, other Respiratory: Denies: no symptoms, cough, shortness of breath, SOB with excertion, SOB at rest, sputum, wheezing, other Gastrointestinal/Abdominal: Denies: no symptoms, abdomen distended, abdominal pain, black stools, tarry stools, blood in stool, constipated, diarrhea, difficulty swallowing, nausea, poor appetite, poor fluid intake, rectal bleeding, vomiting, other Neurologic/Psychiatric: Denies: no symptoms, anxiety, depressed, emotional problems, headache, numbness, paresthesia, pre-existing deficit, seizure, tingling, tremors, weakness, other Endocrine: Denies: no symptoms, excessive sweating, flushing, intolerance to cold, intolerance to heat, increased hunger, increased thirst, increased urine, unexplained weight gain, unexplained weight loss, other Hematologic/Lymphatic: Denies: no symptoms, anemia, easy bleeding, easy bruising, adenopathy, other Allergies: Coded Allergies: No Known Allergies (Unverified , 08/15/19) Subjective 10/27 labs again refused this am, yesterday was low, chandrakant england in icu 10/28 remains in icu, for 2units prbc this am, chandrakant england, no other events 10/29 s/p prbc, tolerated it well, no bleeding, on 1mcg levo, in icu 10/30 on abx, on levo and overnight no other events, [facility]\ 10/31 wounds improved, labs noted, no bleeding, hgb lower, refusing care/wound care 11/01 labs noted, no bleeding, no hematochezia, no hemoptysis, cbc ordered 11/02 meds reviewed, labs noted, no bleeding, chandrakant england, no major changes, hgb 8.3 11/04 labs have been noted, no bleeding, meds reviewed, no hemolysis 11/05 functional colostomy llq, no bleeding, cbc is pending for am 11/06 labs have been refused, hgb 8.3, no bleeding, wbc is higher in am 11/07 labs have initially been refused, no bleeding in am, wbc 13, on abx 11/08 labs reviewed, no bleeding, chandrakant eng[place], cbc is pending for am 11/09 is on vanc/difl/christel, no other changes, cbc and bmp are noted 11/11 has been asymptomatic, eating breakfast, hgb 9.3, on abx 11/12 labs are noted, no bleeding, chandrakant england, no major changes, abx 11/13 is currently on christel and vanc, chandrakant england, no major bleeding, on hep sq 11/14 labs are noted, does not want to be changed currently, cbc/bmp ordered 11/15 labs reviewed, c/o pain at picc line, no bleeding, meds noted, hgb 8.7 11/16 labs are noted, has been cleared, for dc planning to snf 11/[address], no bleeding, meds noted, continues to be on heparin sq 11/19 labs noted, no bleeding, comfortable, cbc is ntoed and bmp for am labs 11/[address], with dressing change as needed, meds noted, labs reviewed 11/[address], is on vanc/christel seen by id, no major changes 11/22 labs reviewed, with colostomy, donohue catheter, ct of a/p noted 11/23 meds noted, no bleeding, have ordered for eliquis and chandrakant Razo in am 11/25 labs noted, no bleeding, on blood thinner is on vanc/linezolid, hgb 8 11/26 remains on eliquis, no bleeding, meds noted, eating breakfast this am 11/27 low bp, ns given, meds are reviewed, no major hemolysis, remains on po iron 11/28 on eliquis, ferrous suldate, no bleeding, comfortable 12/01 labs are noted, on anticaog, also hgb 8, no bleeding, comfortable 12/02 is without events, no bleeding, labs reviewed, no bleeding, meds noted 12/03 initially refused labs but now feeling better, cbc pending for am 12/04 labs noted, no bleeding, meds noted as well 12/05 labs noted, no bleeding, meds reviewed, hgb 8.7, colostomy in place 12/06 labs noted, no bleeding, donohue reinserted as per potential dc Objective Objective Current Medications Medications (Trade) Dose Ordered Sig/Mya Route PRN Reason Start Time Stop Time Status Last Admin Dose Admin Acetaminophen/ Hydrocodone Bitart (Camp 5/325) 1 tab Q6H PRN ORAL Severe Pain (Pain Scale 7-10) 12/04/19 10:36 12/11/19 10:35 12/05/19 14:53 Apixaban (Eliquis) 2.5 mg BID ORAL 11/24/19 09:00 02/22/20 08:59 12/07/19 08:31 Bisacodyl (Dulcolax) 10 mg DAILYPRN PRN RECTAL Constipation 11/24/19 07:45 02/22/20 07:44 Chlorhexidine Gluconate (Simran-Hex 2%) 1 applic DAILY@1999 TOPIC 11/13/19 20:00 02/11/20 19:59 12/06/19 21:31 Desmopressin Acetate (Ddavp) 1 spray DAILY NASAL 11/14/19 09:00 02/07/20 17:59 12/07/19 08:30 Dextrose (Dextrose 50%) 25 ml Q30M PRN IV Hypoglycemia 11/05/19 13:30 01/21/20 17:29 Dextrose (Dextrose 50%) 50 ml Q30M PRN IV Hypoglycemia 11/05/19 13:30 01/21/20 17:29 Famotidine (Pepcid) 20 mg DAILY ORAL 11/06/19 09:00 01/28/20 09:29 12/07/19 08:31 Ferrous Sulfate (Feosol) 325 mg DAILY ORAL 11/06/19 09:00 01/22/20 08:59 12/07/19 08:31 Fludrocortisone Acetate (Florinef) 0.1 mg DAILY ORAL 11/15/19 09:00 12/15/19 08:59 12/07/19 08:30 Magnesium Hydroxide (Mom) 30 ml HSPRN PRN ORAL Constipation 11/13/19 11:15 12/13/19 11:14 Midodrine (Pro-Amatine) 10 mg EVERY 8 HOURS ORAL 11/05/19 14:00 01/21/20 17:59 12/07/19 05:28 Naloxone HCl (Narcan) 0.2 mg Q2M PRN IVP RESPRITORY DEPRESSION RR<8 11/24/19 10:15 02/22/20 10:14 Senna/Docusate Sodium (Haley-Colace) 1 tab TWICE A DAY ORAL 11/24/19 09:00 12/24/19 08:59 12/07/19 08:31 Sodium Hypochlorite (Dakin's Quarter Strength) 1 applic DAILY TOPIC 12/01/19 09:00 12/31/19 08:59 12/07/19 08:31 Sodium Chloride (NaCl) 1 gm THREE TIMES A DAY ORAL 11/09/19 13:00 12/09/19 12:59 12/07/19 08:31 Zinc Sulfate (Zinc Sulfate) 220 mg DAILY ORAL 11/06/19 09:00 01/22/20 08:59 12/07/19 08:31 Last 24 Hour Vital Signs Date Time Temp Pulse Resp B/P (MAP) Pulse Ox O2 Delivery O2 Flow Rate FiO2 12/07/19 09:00 Room Air 12/07/19 08:00 97.0 68 17 99/62 (74) 95 12/07/19 04:00 98.0 60 20 101/58 (72) 96 12/07/19 00:00 97.6 62 20 102/60 (74) 97 12/06/19 23:00 Room Air 12/06/19 22:50 Room Air 12/06/19 21:00 Room Air 12/06/19 20:00 98.2 76 20 110/64 (79) 98 12/06/19 16:00 98.4 79 19 101/59 (73) 97 12/06/19 12:00 97.9 76 18 108/55 (72) 99 12/06/19 09:00 Room Air 12/06/19 08:00 98.5 57 18 106/64 (78) 98 12/06/19 04:00 97.7 76 17 100/65 (77) 97 12/06/19 00:00 98.1 81 20 103/61 (75) 95 12/05/19 20:32 Room Air 12/05/19 19:53 97.9 65 18 105/68 (80) 98 12/05/19 16:00 97.4 68 20 103/64 (77) 99 12/05/19 12:00 97.2 66 19 100/60 (73) 99 Intake and Output 12/06/19 12/07/19 18:59 06:59 Output Total 700 ml 850 ml Balance -700 ml -850 ml Output Urine Total 700 ml 850 ml # Voids 1 # Bowel Movements 1 Height (Feet): 5 Height (Inches): 7.00 Weight (Pounds): 114 Objective Physical Exam General Appearance: lethargic Lines, tubes and drains: peripheral, central line HEENT: normocephalic Neck: non-tender, normal alignment Respiratory/Chest: lungs clear Cardiovascular/Chest: normal peripheral pulses, normal rate, regular rhythm Abdomen: normal bowel sounds, non tender ++ llq colostomy : ++Martínez Geiger MD Dec 07, 2019 10:18
--- NOTE | 2019-12-07 10:27 | Nephrology Progress Note ---
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 - improved with desmporessin #Shock #UTI # infected sacral pressure ulcer #Acute metabolic encephalopathy #Paraplegia #Sacral pressure ulcer #Hypokalemia #Anemia - continue florinef 0.1mg daily -Continue desmopressin nasal - continue salt tabs 1g TID - continue midodrine 10 TID - endocrine eval noted - r/o adrenal insuffiency - antibiotics per ID - monitor lytes - avoid nephrotoxins - daily weights - strict I&Os time spent 40 min- greater than 50% on care coordination and counseling Subjective Subjective on florinef 0.1mg daily Bp stable on nasal desmopressin on salt tabs Objective Objective Last 24 Hour Vital Signs Date Time Temp Pulse Resp B/P (MAP) Pulse Ox O2 Delivery O2 Flow Rate FiO2 12/07/19 09:00 Room Air 12/07/19 08:00 97.0 68 17 99/62 (74) 95 12/07/19 04:00 98.0 60 20 101/58 (72) 96 12/07/19 00:00 97.6 62 20 102/60 (74) 97 12/06/19 23:00 Room Air 12/06/19 22:50 Room Air 12/06/19 21:00 Room Air 12/06/19 20:00 98.2 76 20 110/64 (79) 98 12/06/19 16:00 98.4 79 19 101/59 (73) 97 12/06/19 12:00 97.9 76 18 108/55 (72) 99 Intake and Output 12/06/19 12/07/19 19:00 07:00 Output Total 700 ml 850 ml Balance -700 ml -850 ml Output Urine Total 700 ml 850 ml # Voids 1 # Bowel Movements 1 Height (Feet): 5 Height (Inches): 7.00 Weight (Pounds): 114 Sienna Georges M.D. Dec 07, 2019 10:27
--- NOTE | 2019-12-07 10:56 | Pulmonology Progress Note ---
Subjective ROS Limited/Unobtainable: Yes Interval Events: None new Constitutional: Denies: fever HEENT: Repors: no symptoms Respiratory: Reports: no symptoms Cardiovascular: Reports: no symptoms Gastrointestinal/Abdominal: Denies: nausea, vomiting, diarrhea Genitourinary: Reports: no symptoms Psychiatric: Denies: depression Skin: Denies: rash Musculoskeletal: Denies: pain Allergies: Coded Allergies: No Known Allergies (Unverified , 08/15/19) All Systems: reviewed and negative except above Objective Last 24 Hour Vital Signs Date Time Temp Pulse Resp B/P (MAP) Pulse Ox O2 Delivery O2 Flow Rate FiO2 12/07/19 09:00 Room Air 12/07/19 08:00 97.0 68 17 99/62 (74) 95 12/07/19 04:00 98.0 60 20 101/58 (72) 96 12/07/19 00:00 97.6 62 20 102/60 (74) 97 12/06/19 23:00 Room Air 12/06/19 22:50 Room Air 12/06/19 21:00 Room Air 12/06/19 20:00 98.2 76 20 110/64 (79) 98 12/06/19 16:00 98.4 79 19 101/59 (73) 97 12/06/19 12:00 97.9 76 18 108/55 (72) 99 Intake and Output 12/06/19 12/07/19 19:00 07:00 Output Total 700 ml 850 ml Balance -700 ml -850 ml Output Urine Total 700 ml 850 ml # Voids 1 # Bowel Movements 1 General Appearance: no acute distress HEENT: normocephalic Respiratory: chest wall non-tender, lungs clear Cardiovascular: normal peripheral pulses, regular rhythm Abdomen: normal bowel sounds Extremities: no cyanosis Current Medications Medications (Trade) Dose Ordered Sig/Mya Route PRN Reason Start Time Stop Time Status Last Admin Dose Admin Acetaminophen/ Hydrocodone Bitart (Keldron 5/325) 1 tab Q6H PRN ORAL Severe Pain (Pain Scale 7-10) 12/04/19 10:36 12/11/19 10:35 12/05/19 14:53 Apixaban (Eliquis) 2.5 mg BID ORAL 11/24/19 09:00 02/22/20 08:59 12/07/19 08:31 Bisacodyl (Dulcolax) 10 mg DAILYPRN PRN RECTAL Constipation 11/24/19 07:45 02/22/20 07:44 Chlorhexidine Gluconate (Simran-Hex 2%) 1 applic DAILY@1999 TOPIC 11/13/19 20:00 02/11/20 19:59 12/06/19 21:31 Desmopressin Acetate (Ddavp) 1 spray DAILY NASAL 11/14/19 09:00 02/07/20 17:59 12/07/19 08:30 Dextrose (Dextrose 50%) 25 ml Q30M PRN IV Hypoglycemia 11/05/19 13:30 01/21/20 17:29 Dextrose (Dextrose 50%) 50 ml Q30M PRN IV Hypoglycemia 11/05/19 13:30 01/21/20 17:29 Famotidine (Pepcid) 20 mg DAILY ORAL 11/06/19 09:00 01/28/20 09:29 12/07/19 08:31 Ferrous Sulfate (Feosol) 325 mg DAILY ORAL 11/06/19 09:00 01/22/20 08:59 12/07/19 08:31 Fludrocortisone Acetate (Florinef) 0.1 mg DAILY ORAL 11/15/19 09:00 12/15/19 08:59 12/07/19 08:30 Magnesium Hydroxide (Mom) 30 ml HSPRN PRN ORAL Constipation 11/13/19 11:15 12/13/19 11:14 Midodrine (Pro-Amatine) 10 mg EVERY 8 HOURS ORAL 11/05/19 14:00 01/21/20 17:59 12/07/19 05:28 Naloxone HCl (Narcan) 0.2 mg Q2M PRN IVP RESPRITORY DEPRESSION RR<8 11/24/19 10:15 02/22/20 10:14 Senna/Docusate Sodium (Haley-Colace) 1 tab TWICE A DAY ORAL 11/24/19 09:00 12/24/19 08:59 12/07/19 08:31 Sodium Hypochlorite (Dakin's Quarter Strength) 1 applic DAILY TOPIC 12/01/19 09:00 12/31/19 08:59 12/07/19 08:31 Sodium Chloride (NaCl) 1 gm THREE TIMES A DAY ORAL 11/09/19 13:00 12/09/19 12:59 12/07/19 08:31 Zinc Sulfate (Zinc Sulfate) 220 mg DAILY ORAL 11/06/19 09:00 01/22/20 08:59 12/07/19 08:31 Assessment/Plan Assessment/Plan IMPRESSION: 1. Septic shock. resolved 2. Complicated UTI with history of previous ESBL infection. 3. Paraplegia. 4. Sacral decubitus. 5. group home resident. DISCUSSION: DVT and GI prophylaxes. Continue Oxygen prn, doing well on room air at this time. DC planning Haily Monzon Omar Syed MD Dec 07, 2019 10:56
--- NOTE | 2019-12-07 11:09 | Cardiac Electrophysiology PN ---
Assessment/Plan Assessment/Plan 1. S/P Septic shock on Midodrine and antibiotic 2. Bradycardia. Resolved. 3. Paraplegia. 4. Urinary tract infection, 5. Decubitus ulcers with sacral decubitus. 6. S/P Ileostomy/ 7. Polyuria, DI. On Salt tablets DW RN Going to [facility] today Subjective Subjective Alert in NAD.Going to [facility] still pending Objective Last 24 Hour Vital Signs Date Time Temp Pulse Resp B/P (MAP) Pulse Ox O2 Delivery O2 Flow Rate FiO2 12/07/19 09:00 Room Air 12/07/19 08:00 97.0 68 17 99/62 (74) 95 12/07/19 04:00 98.0 60 20 101/58 (72) 96 12/07/19 00:00 97.6 62 20 102/60 (74) 97 12/06/19 23:00 Room Air 12/06/19 22:50 Room Air 12/06/19 21:00 Room Air 12/06/19 20:00 98.2 76 20 110/64 (79) 98 12/06/19 16:00 98.4 79 19 101/59 (73) 97 12/06/19 12:00 97.9 76 18 108/55 (72) 99 Intake and Output 12/06/19 12/07/19 19:00 07:00 Output Total 700 ml 850 ml Balance -700 ml -850 ml Output Urine Total 700 ml 850 ml # Voids 1 # Bowel Movements 1 Objective HEAD AND NECK: No JVD. LUNGS: Coarse rhonchi. CARDIOVASCULAR: Regular S1 and S2 with no gallop. ABDOMEN: Soft. S/P Ileostomy EXTREMITIES: No pitting edema Carloz Estes MD Dec 07, 2019 11:09
--- NOTE | 2019-12-07 11:21 | Discharge Summary ---
Discharge Summary Hospital Course Date of Admission Oct 23, 2019 at 15:40 Date of Discharge december 07, 2019 Admitting Diagnosis HPI 59-year-old male with past medical history of paraplegia, sacral decubitus ulcer, anemia, hypertension, ESBL multidrug-resistant urinary tract infection sent from nursing home facility by ambulance for hypotension, general weakness and confusion. In ED he was noted to be altered with mild hypotension with SBP in 90s, lactate 2.0, UA with mild pyuria. Patient was to be admitted to tele but was upgraded to MICU due to persistent hypotension and bradycardia to 44, started on Levophed and dopamine overnight by service engineer. Patient seen and examined, feels well, denies any specific complaints such as CP, dyspnea, weakness, dizziness. Consultations Surgery Pulmonary Nephrology ID Cardiolopgy/EP Endocrinology Heme/onc Hospital Course 59 year old man who initially presented on Oct 23, 2019 from [facility] with weakness, encephalopathy, concern for septic shock, possible from UTI vs infected sacral pressure ulcer. He was initially admitted to the ICU for pressor support and treatment of sepsis UTI/PNA. Urine cultures were positive for VRE, Ecoli, Proteus, Rita, and Acintobacter on multiple cultures throughout his h ospitalization. He was treated with multiple abx which included zyvox, diflucan, vancomycin, merrem, flagyl as directed by ID. After he was weaned off pressors and downgraded he was found to have sinus bradycardia which was evaluated by cardio with no interventions warranted. He Required transfusion for anemia of 2 units pRBC during this hospitalization. stage IV Pressure ulc ers evaluated by surgery see below for recs. Patient started on midodrine and fludrocortisone for labile BP; addrenal insuffiency r/o by endocrinology. Patient was found to have a DVT in left LE and IVC filter was placed and started only eliquis at DVT ppx dose recommended by heme/onc due to concerns of bleeding given recent transfusion. Patient has been otherwise stable for the couple weeks; no hemodynamic or respiratory compromise while off abx for a week. He will be discharged to SNF today for further care and support; was held an extra day from yesterday due to insurance reasons. #Acute Left Popliteal DVT - US LLE DVT 11/23/2019 - Findings: On the left, noncompressible thrombus is seen within the popliteal vein upstream, with resultant cessation of flow. -Pt has IVC filter -D/w Heme, cont eliquis 2.5 BID -monitor for signs of bleeding #Septic Shock w/ /MSK/Pulm source ( Proteus, Actinobacter, GPC, fungal UTI, VRE and Sacral Ulcer, ?HCAP) - resolved #Bilateral LE Paraplegia #Sacral pressure ulcer, present on admit - Cont Local wound care and offloading - monitoring off abx #Stage IV Sacral Decubitus Ulcer Cleanse Sacral Wound and R Ischial wounds with Dakin's 0.125% gian. Loosely pack wounds with Hydrogel impregnated Kerlix. Apply Moisture Barrier Paste periwound. Cover with ABD Pads secure with Tegaderm drsg.Daily and prn. Apply Triad Paste to R Hip/R trochanteric areas.Cover with Optifoam drsg. Change every 7 days and prn. Apply Betadine to Medial R Knee. Cover with Optifoam drsg. Change every 7 days and prn. Apply Betadine to R and L Heels. Cover each Heel with Optifoam drsgs. Change every 7 days and prn. Cover Bony Prominences as needed with Optifoam drsgs. Reposition at least every [address] Pillow between knees. Off-load heels with pillow. 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 Time does not reflect time of patient seen. Discharge Discharge Vital Signs Last Vital Signs Date Time Temp Pulse Resp B/P (MAP) Pulse Ox O2 Delivery O2 Flow Rate FiO2 12/07/19 09:00 Room Air 12/07/19 08:00 97.0 68 17 99/62 (75) 95 Discharge Disposition Patient was discharged to SNF Discharge Diagnoses: (1) Encephalopathy (2) Anemia (3) Urinary tract infection in male (4) Sepsis (5) Decubital ulcer (6) SEAN (acute kidney injury) (7) Ileostomy prolapse (8) Septic shock (9) DVT, lower extremity, proximal Justin Umana D.O Dec 07, 2019 11:21
[2019-12-07 12:00] VITALS: BP 97/59
--- NOTE | 2019-12-07 13:53 | General Progress Note ---
Subjective ROS Limited/Unobtainable: Yes Constitutional: Denies: no symptoms, chills, diaphoresis, fever, malaise, weakness, other HEENT: Denies: no symptoms, eye pain, blurred vision, tearing, double vision, ear pain, ear discharge, nose pain, nose congestion, throat pain, throat swelling, mouth pain, mouth swelling, other Cardiovascular: Denies: no symptoms, chest pain, edema, irregular heart rate, lightheadedness, palpitations, syncope, other Respiratory: Denies: no symptoms, cough, orthopnea, shortness of breath, SOB with excertion, SOB at rest, sputum, stridor, wheezing, other Gastrointestinal/Abdominal: Denies: no symptoms, abdomen distended, abdominal pain, black stools, tarry stools, blood in stool, constipated, diarrhea, difficulty swallowing, nausea, poor appetite, poor fluid intake, rectal bleeding, vomiting, other Genitourinary: Denies: no symptoms, burning, discharge, frequency, flank pain, hematuria, incontinence, pain, urgency, other Neurologic/Psychiatric: Denies: no symptoms, anxiety, depressed, emotional problems, headache, numbness, paresthesia, pre-existing deficit, seizure, tingling, tremors, weakness, other Endocrine: Denies: no symptoms, excessive sweating, flushing, intolerance to cold, intolerance to heat, increased hunger, increased thirst, increased urine, unexplained weight gain, unexplained weight loss, other Hematologic/Lymphatic: Denies: no symptoms, anemia, easy bleeding, easy bruising, other Allergies: Coded Allergies: No Known Allergies (Unverified , 08/15/19) Subjective no acute events overnight. donohue was replaced last night. d/c was postponed today due to insurance. overall no complaints today. VSS. Objective Last 24 Hour Vital Signs Date Time Temp Pulse Resp B/P (MAP) Pulse Ox O2 Delivery O2 Flow Rate FiO2 12/07/19 12:00 96.5 68 17 97/59 (72) 97 12/07/19 09:00 Room Air 12/07/19 08:00 97.0 68 17 99/62 (74) 95 12/07/19 04:00 98.0 60 20 101/58 (72) 96 12/07/19 00:00 97.6 62 20 102/60 (74) 97 12/06/19 23:00 Room Air 12/06/19 22:50 Room Air 12/06/19 21:00 Room Air 12/06/19 20:00 98.2 76 20 110/64 (79) 98 12/06/19 16:00 98.4 79 19 101/59 (73) 97 Intake and Output 12/06/19 12/07/19 19:00 07:00 Output Total 700 ml 850 ml Balance -700 ml -850 ml Output Urine Total 700 ml 850 ml # Voids 1 # Bowel Movements 1 Height (Feet): 5 Height (Inches): 7.00 Weight (Pounds): 114 General Appearance: no apparent distress, alert EENT: PERRL/EOMI Neck: normal alignment, normal inspection Cardiovascular: normal rate, regular rhythm Respiratory/Chest: lungs clear, normal breath sounds, no respiratory distress Abdomen: normal bowel sounds, non tender, soft Genitourinary/Rectal: other - donohue Extremities: other - bilateral LE paraplegia Edema: no edema noted Arm (L), no edema noted Arm (R), no edema noted Leg (L), no edema noted Leg (R), no edema noted Pedal (L), no edema noted Pedal (R), no edema noted Generalized Neurologic: supervisor sign shop II-XII grossly normal, alert Skin: normal pigmentation, warm/dry Assessment/Plan Assessment/Plan: 59 year old man who initially presented on Oct 23, 2019 from [facility] with weakness, encephalopathy, concern for septic shock, possible from UTI vs infected sacral pressure ulcer. He was initially admitted to the ICU for pressor support and treatment of sepsis UTI/PNA. Urine cultures were positive for VRE, Ecoli, Proteus, Rita, and Acintobacter on multiple cultures throughout his hospitalization. He was treated with multiple abx which included zyvox, diflucan, vancomycin, merrem, flagyl as directed by ID. After he was weaned off pressors and downgraded he was found to have sinus bradycardia which was evaluated by cardio with no interventions warranted. He Required transfusion for anemia of 2 units pRBC during this hospitalization. stage IV Pressure ulcers evaluated by surgery see below for recs. Patient started on midodrine and fludrocortisone for labile BP; addrenal insuffiency r/o by endocrinology. Patient was found to have a DVT in left LE and IVC filter was placed and started only eliquis at DVT ppx dose recommended by heme/onc due to concerns of bleeding given recent transfusion. Patient has been otherwise stable for the couple weeks; no hemodynamic or respiratory compromise while off abx for a week. He will be discharged to SNF today for further care and support; was held an extra day from yesterday due to insurance reasons. #Acute Left Popliteal DVT - US LLE DVT 11/23/2019 - Findings: On the left, noncompressible thrombus is seen within the popliteal vein upstream, with resultant cessation of flow. -Pt has IVC filter -D/w Heme, cont eliquis 2.5 BID -monitor for signs of bleeding #Septic Shock w/ /MSK/Pulm source ( Proteus, Actinobacter, GPC, fungal UTI, VRE and Sacral Ulcer, ?HCAP) - resolved #Bilateral LE Paraplegia #Sacral pressure ulcer, present on admit - Cont Local wound care and offloading - monitoring off abx #Stage IV Sacral Decubitus Ulcer Cleanse Sacral Wound and R Ischial wounds with Dakin's 0.125% gian. Loosely pack wounds with Hydrogel impregnated Kerlix. Apply Moisture Barrier Paste periwound. Cover with ABD Pads secure with Tegaderm drsg.Daily and prn. Apply Triad Paste to R Hip/R trochanteric areas.Cover with Optifoam drsg. Change every 7 days and prn. Apply Betadine to Medial R Knee. Cover with Optifoam drsg. Change every 7 days and prn. Apply Betadine to R and L Heels. Cover each Heel with Optifoam drsgs. Change every 7 days and prn. Cover Bony Prominences as needed with Optifoam drsgs. Reposition at least every [address] tolerated[address] Pillow between knees. Off-load heels with pillow. 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 Time does not reflect time of patient seen. Justin Umana D.O Dec 07, 2019 13:53
--- NOTE | 2019-12-07 13:56 | Surgery Progress Note ---
Surgery Progress Note Subjective Symptoms: improved, tolerating diet, voiding well, passing flatus, BM Objective Last 24 Hour Vital Signs Date Time Temp Pulse Resp B/P (MAP) Pulse Ox O2 Delivery O2 Flow Rate FiO2 12/07/19 12:00 96.5 68 17 97/59 (72) 97 12/07/19 09:00 Room Air 12/07/19 08:00 97.0 68 17 99/62 (74) 95 12/07/19 04:00 98.0 60 20 101/58 (72) 96 12/07/19 00:00 97.6 62 20 102/60 (74) 97 12/06/19 23:00 Room Air 12/06/19 22:50 Room Air 12/06/19 21:00 Room Air 12/06/19 20:00 98.2 76 20 110/64 (79) 98 12/06/19 16:00 98.4 79 19 101/59 (73) 97 I&O Intake and Output 12/06/19 12/07/19 19:00 07:00 Output Total 700 ml 850 ml Balance -700 ml -850 ml Output Urine Total 700 ml 850 ml # Voids 1 # Bowel Movements 1 Dressing: saturated Cardiovascular: RSR Respiratory: clear Abdomen: soft, flat, non-tender, present bowel sounds Extremities: no edema, no tenderness, no cyanosis Plan Problems: (1) Abdominal distension Assessment & Plan: abd distention soft non tender ostomy viable and reduced KUB ordered pending results improved comfortable no complaints okay for diet s tolerated d/c planning much improved There is an inferior vena cava filter in place. Bowel gas pattern is unremarkable. Considerable stool is seen in the transverse and distal colon. There is extensive pelvic deformity, with loss of the left femoral head, chronic dislocation of the left femur, and extensive pelvic deformity, particularly on the left. Adi project over the upper pelvis Impression: Possible constipation. pending placement Nonobstructed bowel gas pattern. Moderate fecal retention of the ascending colon and sigmoid colon. The degree of stool burden has increased from October 25, 2019. IVC filter, incidentally noted. Partial subluxation of the right hip. Osteotomy of the proximal left femur with deformity of the bilateral pubic rami and left acetabulum, unchanged. 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 [place] Shaped, Full Thickness Sacral Pressure Injury which extends into L ischium. (L)15.4cm x (W)18cm x (D)2.4cm, Undermining clockwise 10-2 by 7.7cm @11o'clock. Base of wound is moist,pink with scattered slough at base of wound. Bone is palpable at the Base. No odor or exudate noted. Scattered partial thickness wounds and Serous filled blisters noted to R trochanteric /R Hip areas. Historical scar noted to L groin, L Hip L Buttocks. Bony protrusion noted at L Hip. Full thickness Pressure Injury R Ischium(L)5.4cm x(W)6.9cm x (D)1.8cm,Undermining clockwise 1-4 by 2.7cm @2o'clock, Tunneling@7o'clock 2.9cm. Base of wound is moist pink with scattered slough. Scattered slough noted along borders. NO odor or exudate noted. Stable dry eschar noted to medial R knee 0.7cm x (W)0.4cm. Periwound is erythematous and indurated. No elevation in skin temp noted. L heel has shaved appearance secondary to Hx of Pressure Injuries. Base of heel is pale pink. Bone is palpable. Small area of slough noted within compromised area(L)0.6cm x (W)0.8cm. L Heel Also has shaved appearance with hypertrophic scarring. Base of compromised area is pale pink, Bone is palpable, with scattered loose, dry and scaly skin. Patient's wound remains very large extensive and requires significant amount of care. Continued care of the wounds have been provided though patient is having continence through the anus at this time again despite diversion. Wounds remain saturated times and great nursing care is being provided unfortunately inevitable decline is still significantly potential given his overall condition. Tx.Plan: Cleanse Sacral Wound and R Ischial wounds with Dakin's 0.125% gian. Loosely pack wounds with Hydrogel impregnated Kerlix. Apply Moisture Barrier Paste periwound. Cover with ABD Pads secure with Tegaderm drsg.Daily and prn. Apply Triad Paste to R Hip/R trochanteric areas.Cover with Optifoam drsg. Change every 7 days and prn. Apply Betadine to Medial R Knee. Cover with Optifoam drsg. Change every 7 days and prn. Apply Betadine to R and L Heels. Cover each Heel with Optifoam drsgs. Change every 7 days and prn. Cover Bony Prominences as needed with Optifoam drsgs. Reposition at least every 2 [address] tolerated[address] Pillow between knees. Off-load heels with pillow. APM/SUMI Mattress overlay DAILY ESTIMATED NEEDS: Needs based on Advanced wounds, wt loss/ 40.18kg 35-40 kcals/kg 9668-1603 total kcals 1.5-2.0 g protein/kg 60-80 g total protein 25-35ml/kcal mL/kg 5806-1722 total fluid mLs NUTRITION DIAGNOSIS: Increased kcal/prot/micronutrients needs R/T wound healing and underweight status as evidenced by pt admitted w/ multiple advanced wounds, refer to WC eval, pt now w/ further 3% unfavorable wt loss, currently BMI underweight per guidelines, @62% of [place] Body Weight. CURRENT DIET: Regular PO DIET RECOMMENDATIONS: REGULAR, texture as tolerated or per DIGESTER + Ensure Enlive TID w/ meals ADDITIONAL RECOMMENDATIONS: * Per SNF: HT=66" WT=88lbs; -> vs current EMR wt =120# -> Recalibrate bed scale for accurate wts * Continue Ensure TID, whole milk TID w/ meals * Monitor for continued improved/good Po intake * Wound healing:add MVI w/ min qdaily Continue w/ ZnSO4, Vit C, and Amari BID * Monitor Na, need for fluid restriction - (132 improved, on nacl) (15) SEAN (acute kidney injury) (16) Ileostomy prolapse Assessment & Plan: currently reduced but abd distended pending films films reviewed improved okay for diet d/c planning There is what appears to be a diverting colostomy of the distal sigmoid in the left lower quadrant. There is distention of the rectum with feces, rectal diameter 70 mm. There is some thickening of the rectal wall. The appendix is not definitely visualized, but no findings to suggest acute appendicitis are evident. There is considerable stool throughout the colon. There appears to be rectal incontinence of stool despite the diverting colostomy. Cornelius Salgado Dec 07, 2019 13:56
[2019-12-07 16:00] VITALS: BP 110/69
[2019-12-07 20:00] VITALS: BP 102/61
[2019-12-07] MEDS: Dyna-Hex 2% Top Sol 2oz TOPIC SCH (21:58)
[2019-12-08] VITALS: BP 104/61
[2019-12-08 04:00] VITALS: BP 125/74
[2019-12-08] MEDS: Midodrine 10mg tab ORAL SCH ×3 (05:37→22:30)
--- NOTE | 2019-12-08 07:06 | Pulmonology Progress Note ---
Subjective ROS Limited/Unobtainable: Yes Interval Events: None new Constitutional: Denies: fever HEENT: Repors: no symptoms Respiratory: Reports: no symptoms Cardiovascular: Reports: no symptoms Gastrointestinal/Abdominal: Denies: nausea, vomiting, diarrhea Genitourinary: Reports: no symptoms Psychiatric: Denies: depression Skin: Denies: rash Musculoskeletal: Denies: pain Allergies: Coded Allergies: No Known Allergies (Unverified , 08/15/19) All Systems: reviewed and negative except above Objective Last 24 Hour Vital Signs Date Time Temp Pulse Resp B/P (MAP) Pulse Ox O2 Delivery O2 Flow Rate FiO2 12/08/19 04:00 97.9 74 20 125/74 (91) 98 12/08/19 00:00 98.1 76 20 104/61 (75) 97 12/07/19 21:00 Room Air 12/07/19 20:00 98.2 68 18 102/61 (75) 98 12/07/19 16:00 98.4 68 18 110/69 (83) 95 12/07/19 12:00 96.5 68 17 97/59 (72) 97 12/07/19 09:00 Room Air 12/07/19 08:00 97.0 68 17 99/62 (74) 95 Intake and Output 12/07/19 12/08/19 19:00 07:00 Intake Total 720 ml 360 ml Output Total 900 ml Balance 720 ml -540 ml Intake Oral 720 ml Other 360 ml Output Urine Total 900 ml # Bowel Movements 1 General Appearance: no acute distress HEENT: normocephalic Respiratory: chest wall non-tender, lungs clear Cardiovascular: normal peripheral pulses, regular rhythm Abdomen: normal bowel sounds Extremities: no cyanosis Current Medications Medications (Trade) Dose Ordered Sig/Mya Route PRN Reason Start Time Stop Time Status Last Admin Dose Admin Acetaminophen/ Hydrocodone Bitart ([place] 5/325) 1 tab Q6H PRN ORAL Severe Pain (Pain Scale 7-10) 12/04/19 10:36 12/11/19 10:35 12/05/19 14:53 Apixaban (Eliquis) 2.5 mg BID ORAL 11/24/19 09:00 02/22/20 08:59 12/07/19 17:24 Bisacodyl (Dulcolax) 10 mg DAILYPRN PRN RECTAL Constipation 11/24/19 07:45 02/22/20 07:44 Chlorhexidine Gluconate (Simran-Hex 2%) 1 applic DAILY@2000 TOPIC 11/13/19 20:00 02/11/20 19:59 12/07/19 21:58 Desmopressin Acetate (Ddavp) 1 spray DAILY NASAL 11/14/19 09:00 02/07/20 17:59 12/07/19 08:30 Dextrose (Dextrose 50%) 25 ml Q30M PRN IV Hypoglycemia 11/05/19 13:30 01/21/20 17:29 Dextrose (Dextrose 50%) 50 ml Q30M PRN IV Hypoglycemia 11/05/19 13:30 01/21/20 17:29 Famotidine (Pepcid) 20 mg DAILY ORAL 11/06/19 09:00 01/28/20 09:29 12/07/19 08:31 Ferrous Sulfate (Feosol) 325 mg DAILY ORAL 11/06/19 09:00 01/22/20 08:59 12/07/19 08:31 Fludrocortisone Acetate (Florinef) 0.1 mg DAILY ORAL 11/15/19 09:00 12/15/19 08:59 12/07/19 08:30 Magnesium Hydroxide (Mom) 30 ml HSPRN PRN ORAL Constipation 11/13/19 11:15 12/13/19 11:14 Midodrine (Pro-Amatine) 10 mg EVERY 8 HOURS ORAL 11/05/19 14:00 01/21/20 17:59 12/08/19 05:37 Naloxone HCl (Narcan) 0.2 mg Q2M PRN IVP RESPRITORY DEPRESSION RR<8 11/24/19 10:15 02/22/20 10:14 Senna/Docusate Sodium (Haley-Colace) 1 tab TWICE A DAY ORAL 11/24/19 09:00 12/24/19 08:59 12/07/19 08:31 Sodium Hypochlorite (Dakin's Quarter Strength) 1 applic DAILY TOPIC 12/01/19 09:00 12/31/19 08:59 12/07/19 08:31 Sodium Chloride (NaCl) 1 gm THREE TIMES A DAY ORAL 11/09/19 13:00 12/09/19 12:59 12/07/19 17:24 Zinc Sulfate (Zinc Sulfate) 220 mg DAILY ORAL 11/06/19 09:00 01/22/20 08:59 12/07/19 08:31 Assessment/Plan Assessment/Plan IMPRESSION: 1. Septic shock. resolved 2. Complicated UTI with history of previous ESBL infection. 3. Paraplegia. 4. Sacral decubitus. 5. detention resident. DISCUSSION: DVT and GI prophylaxes. Continue Oxygen prn, doing well on room air at this time. Will sign off DC planning Haily Monzon Omar Syed MD Dec 08, 2019 07:06
[2019-12-08 08:00] VITALS: BP 102/61
[2019-12-08] MEDS: Docusate Sod/Senna tab ORAL SCH ×2 (08:33→17:24)
[2019-12-08] MEDS: Sodium Chloride 1gm Tab ORAL SCH ×3 (08:33→17:24)
[2019-12-08] MEDS: Eliquis 2.5mg tablet ORAL SCH ×2 (08:34→17:24)
[2019-12-08] MEDS: Zinc Sulfate 220mg ORAL SCH (08:34)
--- NOTE | 2019-12-08 08:48 | General Progress Note ---
Subjective Date patient seen: Dec 08, 2019 Time patient seen: 07:00 - am Allergies: Coded Allergies: No Known Allergies (Unverified , 08/15/19) Subjective REVIEW OF SYSTEMS: Denies rash, fever, chills, sweating, dizziness, drowsiness, blurred vision, sore throat, or change in weight. No shortness of breath or chest pain. No nausea, vomiting, diarrhea, blood in stool or urine. HISTORY OF PRESENT ILLNESS: This is a 59-year-old male who has been seen on the Med/Surg floor of [facility]. Patient sitting up in bed showing no signs of pain or distress. Pain has been tolerate on the Elmo. No new complaints at this time. Objective Last 24 Hour Vital Signs Date Time Temp Pulse Resp B/P (MAP) Pulse Ox O2 Delivery O2 Flow Rate FiO2 12/08/19 08:00 98.2 68 18 102/61 (75) 97 12/08/19 04:00 97.9 74 20 125/74 (91) 98 12/08/19 00:00 98.1 76 20 104/61 (75) 97 12/07/19 21:00 Room Air 12/07/19 20:00 98.2 68 18 102/61 (75) 98 12/07/19 16:00 98.4 68 18 110/69 (83) 95 12/07/19 12:00 96.5 68 17 97/59 (72) 97 12/07/19 09:00 Room Air Intake and Output 12/07/19 12/08/19 19:00 07:00 Intake Total 720 ml 360 ml Output Total 900 ml Balance 720 ml -540 ml Intake Oral 720 ml Other 360 ml Output Urine Total 900 ml # Bowel Movements 1 Height (Feet): 5 Height (Inches): 7.00 Weight (Pounds): 114 Objective PHYSICAL EXAMINATION: GENERAL: Alert, awake, and oriented. LUNGS: Decreased breath sounds bilaterally. HEART: S1, S2 regular. ABDOMEN: Colostomy bag noted. EXTREMITIES: Upper and lower extremity range of motion is decreased due to the patient's condition. Contracture is noted. Sensory is reduced. Reflexes are not obtainable. No adenopathy. Assessment/Plan Assessment/Plan: (1) Sacral decubitus ulcer (2) Paraplegia (3) Neuropathic pain Patient to be continued on Elmo and Neurontin D/w Dr. Celaya and he concurred. Danny Raymundo Dec 08, 2019 08:48
--- NOTE | 2019-12-08 09:21 | Nephrology Progress Note ---
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 - improved with desmporessin #Shock #UTI # infected sacral pressure ulcer #Acute metabolic encephalopathy #Paraplegia #Sacral pressure ulcer #Hypokalemia #Anemia - continue florinef 0.1mg daily -Continue desmopressin nasal - continue salt tabs 1g TID - continue midodrine 10 TID - endocrine eval noted - r/o adrenal insuffiency - antibiotics per ID - monitor lytes - avoid nephrotoxins - daily weights - strict I&Os time spent 40 min- greater than 50% on care coordination and counseling Subjective ROS Limited/Unobtainable: No Constitutional: Reports: weakness HEENT: Denies: no symptoms, eye pain, blurred vision, tearing, double vision, ear pain, ear discharge, nose pain, nose congestion, throat pain, throat swelling, mouth pain, mouth swelling, other Genitourinary: Denies: no symptoms, burning, discharge, frequency, flank pain, hematuria, incontinence, pain, urgency, other Neurologic/Psychiatric: Denies: no symptoms, anxiety, depressed, emotional problems, headache, numbness, paresthesia, pre-existing deficit, seizure, tingling, tremors, weakness, other Subjective on florinef 0.1mg daily Bp stable on nasal desmopressin on salt tabs Objective Objective Last 24 Hour Vital Signs Date Time Temp Pulse Resp B/P (MAP) Pulse Ox O2 Delivery O2 Flow Rate FiO2 12/08/19 08:00 98.2 68 18 102/61 (75) 97 12/08/19 04:00 97.9 74 20 125/74 (91) 98 12/08/19 00:00 98.1 76 20 104/61 (75) 97 12/07/19 21:00 Room Air 12/07/19 20:00 98.2 68 18 102/61 (75) 98 12/07/19 16:00 98.4 68 18 110/69 (83) 95 12/07/19 12:00 96.5 68 17 97/59 (72) 97 Intake and Output 12/07/19 12/08/19 19:00 07:00 Intake Total 720 ml 360 ml Output Total 900 ml Balance 720 ml -540 ml Intake Oral 720 ml Other 360 ml Output Urine Total 900 ml # Bowel Movements 1 Height (Feet): 5 Height (Inches): 7.00 Weight (Pounds): 114 Sienna Georges M.D. Dec 08, 2019 09:21
--- NOTE | 2019-12-08 09:25 | Hematology/Onc Progress Note ---
Assessment/Plan Assessment/Plan # Acute left upstream popliteal vein deep venous thrombosis IVC filter in place --> given acute nature, will continue eliquis --> HOWEVER, if drop in h/h consider to hold eliquis as has ivc in place --> IVC Filter placed earlier # Anemia rule out gi bleed, as well as iron deficiency --> hgb 8.2-->7.2-->7.1->6.9-->8.6-->8.3-->9.3-->8.3-->9.3--.9.2->8.7->8-->8.7 --> anemia panel ordered--> cw acd --> occult blood pending-->neg --> gi eval prn --> transfuse as needed --> transfuse 2 units 10/27 --> po iron to continue # Coagulopathy with elev ptt/inr --> vitk and ffp as needed --> no bleeding noted at this time # Thrombocytosis likely reactive process --> plt 398-->608-->605 --> abx as needed # Sepsis due to uti, with Hypotension likely due to septic shock. Was diuresing heavily at 300 mL an hour. --> Continue on midodrine and dopamine. --> ABX vancomycin and meropenem and amikacin-->christel/vanc/difluc-->vanc/linezolid --> before requires pressors --> as per cards # Bradycardia. --> per cards # Paraplegia. # LLQ colostomy # Decubitus ulcers with sacral decubitus. # Dvt ppx eliquis Appreciate consultation and chandrakant RN Subjective Constitutional: Denies: no symptoms, chills, fever, malaise, weakness, other HEENT: Denies: no symptoms, eye pain, blurred vision, tearing, double vision, ear pain, ear discharge, nose pain, nose congestion, throat pain, throat swelling, mouth pain, mouth swelling, other Cardiovascular: Denies: no symptoms, chest pain, edema, irregular heart rate, lightheadedness, palpitations, syncope, other Respiratory: Denies: no symptoms, cough, shortness of breath, SOB with excertion, SOB at rest, sputum, wheezing, other Gastrointestinal/Abdominal: Denies: no symptoms, abdomen distended, abdominal pain, black stools, tarry stools, blood in stool, constipated, diarrhea, difficulty swallowing, nausea, poor appetite, poor fluid intake, rectal bleeding, vomiting, other Genitourinary: Denies: no symptoms, burning, discharge, frequency, flank pain, hematuria, incontinence, pain, urgency, other Neurologic/Psychiatric: Denies: no symptoms, anxiety, depressed, emotional problems, headache, numbness, paresthesia, pre-existing deficit, seizure, tingling, tremors, weakness, other Allergies: Coded Allergies: No Known Allergies (Unverified , 08/15/19) Subjective 10/27 labs again refused this am, yesterday was low, chandrakant england in icu 10/28 remains in icu, for 2units prbc this am, chandrakant england, no other events 10/29 s/p prbc, tolerated it well, no bleeding, on 1mcg levo, in icu 10/30 on abx, on levo and overnight no other events, 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\ 10/31 wounds improved, labs noted, no bleeding, hgb lower, refusing care/wound care 11/01 labs noted, no bleeding, no hematochezia, no hemoptysis, cbc ordered 11/02 meds reviewed, labs noted, no bleeding, chandrakant england, no major changes, hgb 8.3 11/04 labs have been noted, no bleeding, meds reviewed, no hemolysis 11/05 functional colostomy llq, no bleeding, cbc is pending for am 11/06 labs have been refused, hgb 8.3, no bleeding, wbc is higher in am 11/07 labs have initially been refused, no bleeding in am, wbc 13, on abx 11/08 labs reviewed, no bleeding, chandrakant england, cbc is pending for am 11/09 is on vanc/difl/christel, no other changes, cbc and bmp are noted 11/11 has been asymptomatic, eating breakfast, hgb 9.3, on abx 11/12 labs are noted, no bleeding, chandrakant england, no major changes, abx 11/13 is currently on christel and vanc, chandrakant england, no major bleeding, on hep sq 11/14 labs are noted, does not want to be changed currently, cbc/bmp ordered 11/15 labs reviewed, c/o pain at picc line, no bleeding, meds noted, hgb 8.7 11/16 labs are noted, has been cleared, for dc planning to snf 11/[address], no bleeding, meds noted, continues to be on heparin sq 11/19 labs noted, no bleeding, comfortable, cbc is ntoed and bmp for am labs 11/[address], with dressing change as needed, meds noted, labs reviewed 11/[address], is on vanc/christel seen by id, no major changes 11/22 labs reviewed, with colostomy, donohue catheter, ct of a/p noted 11/23 meds noted, no bleeding, have ordered for eliquis and chandrakant Razo in am 11/25 labs noted, no bleeding, on blood thinner is on vanc/linezolid, hgb 8 11/26 remains on eliquis, no bleeding, meds noted, eating breakfast this am 11/27 low bp, ns given, meds are reviewed, no major hemolysis, remains on po iron 11/28 on eliquis, ferrous suldate, no bleeding, comfortable 12/01 labs are noted, on anticaog, also hgb 8, no bleeding, comfortable 12/02 is without events, no bleeding, labs reviewed, no bleeding, meds noted 12/03 initially refused labs but now feeling better, cbc pending for am 12/04 labs noted, no bleeding, meds noted as well 12/05 labs noted, no bleeding, meds reviewed, hgb 8.7, colostomy in place 12/06 labs noted, no bleeding, donohue reinserted as per potential dc 12/07 labs are noted, no major changes, no bleeding, meds reviewed Objective Objective Current Medications Medications (Trade) Dose Ordered Sig/Mya Route PRN Reason Start Time Stop Time Status Last Admin Dose Admin Acetaminophen/ Hydrocodone Bitart (Quinby 5/325) 1 tab Q6H PRN ORAL Severe Pain (Pain Scale 7-10) 12/04/19 10:36 12/11/19 10:35 12/05/19 14:53 Apixaban (Eliquis) 2.5 mg BID ORAL 11/24/19 09:00 02/22/20 08:59 12/08/19 08:34 Bisacodyl (Dulcolax) 10 mg DAILYPRN PRN RECTAL Constipation 11/24/19 07:45 02/22/20 07:44 Chlorhexidine Gluconate (Simran-Hex 2%) 1 applic DAILY@1999 TOPIC 11/13/19 20:00 02/11/20 19:59 12/07/19 21:58 Desmopressin Acetate (Ddavp) 1 spray DAILY NASAL 11/14/19 09:00 02/07/20 17:59 12/07/19 08:30 Dextrose (Dextrose 50%) 25 ml Q30M PRN IV Hypoglycemia 11/05/19 13:30 01/21/20 17:29 Dextrose (Dextrose 50%) 50 ml Q30M PRN IV Hypoglycemia 11/05/19 13:30 01/21/20 17:29 Famotidine (Pepcid) 20 mg DAILY ORAL 11/06/19 09:00 01/28/20 09:29 12/08/19 08:34 Ferrous Sulfate (Feosol) 325 mg DAILY ORAL 11/06/19 09:00 01/22/20 08:59 12/08/19 08:34 Fludrocortisone Acetate (Florinef) 0.1 mg DAILY ORAL 11/15/19 09:00 12/15/19 08:59 12/08/19 08:33 Magnesium Hydroxide (Mom) 30 ml HSPRN PRN ORAL Constipation 11/13/19 11:15 12/13/19 11:14 Midodrine (Pro-Amatine) 10 mg EVERY 8 HOURS ORAL 11/05/19 14:00 01/21/20 17:59 12/08/19 05:37 Naloxone HCl (Narcan) 0.2 mg Q2M PRN IVP RESPRITORY DEPRESSION RR<8 11/24/19 10:15 02/22/20 10:14 Senna/Docusate Sodium (Haley-Colace) 1 tab TWICE A DAY ORAL 11/24/19 09:00 12/24/19 08:59 12/08/19 08:33 Sodium Hypochlorite (Dakin's Quarter Strength) 1 applic DAILY TOPIC 12/01/19 09:00 12/31/19 08:59 12/07/19 08:31 Sodium Chloride (NaCl) 1 gm THREE TIMES A DAY ORAL 11/09/19 13:00 12/09/19 12:59 12/08/19 08:33 Zinc Sulfate (Zinc Sulfate) 220 mg DAILY ORAL 11/06/19 09:00 01/22/20 08:59 12/08/19 08:34 Last 24 Hour Vital Signs Date Time Temp Pulse Resp B/P (MAP) Pulse Ox O2 Delivery O2 Flow Rate FiO2 12/08/19 08:00 98.2 68 18 102/61 (75) 97 12/08/19 04:00 97.9 74 20 125/74 (91) 98 12/08/19 00:00 98.1 76 20 104/61 (75) 97 12/07/19 21:00 Room Air 12/07/19 20:00 98.2 68 18 102/61 (75) 98 12/07/19 16:00 98.4 68 18 110/69 (83) 95 12/07/19 12:00 96.5 68 17 97/59 (72) 97 12/07/19 09:00 Room Air 12/07/19 08:00 97.0 68 17 99/62 (74) 95 12/07/19 04:00 98.0 60 20 101/58 (72) 96 12/07/19 00:00 97.6 62 20 102/60 (74) 97 12/06/19 23:00 Room Air 12/06/19 22:50 Room Air 12/06/19 21:00 Room Air 12/06/19 20:00 98.2 76 20 110/64 (79) 98 12/06/19 16:00 98.4 79 19 101/59 (73) 97 12/06/19 12:00 97.9 76 18 108/55 (72) 99 Intake and Output 12/07/19 12/08/19 19:00 07:00 Intake Total 720 ml 360 ml Output Total 900 ml Balance 720 ml -540 ml Intake Oral 720 ml Other 360 ml Output Urine Total 900 ml # Bowel Movements 1 Height (Feet): 5 Height (Inches): 7.00 Weight (Pounds): 114 Objective Physical Exam General Appearance: lethargic Lines, tubes and drains: peripheral, central line HEENT: normocephalic Neck: non-tender, normal alignment Respiratory/Chest: lungs clear Cardiovascular/Chest: normal peripheral pulses, normal rate, regular rhythm Abdomen: normal bowel sounds, non tender ++ llq colostomy : ++Martínez Geiger MD Dec 08, 2019 09:25
[2019-12-08] MEDS: Desmopressin Nasal 5ml NASAL SCH (10:01)
[2019-12-08] MEDS: Dakin's 0.125% Soln (Quarter Strength) 16oz TOPIC SCH (10:02)
--- NOTE | 2019-12-08 10:47 | General Progress Note ---
Subjective Date patient seen: Dec 08, 2019 ROS Limited/Unobtainable: Yes Constitutional: Denies: chills, diaphoresis, fever, malaise, weakness HEENT: Denies: eye pain, blurred vision, double vision Cardiovascular: Denies: chest pain, edema, irregular heart rate, lightheadedness, palpitations, syncope Respiratory: Reports: stridor; Denies: cough, orthopnea, shortness of breath, SOB with excertion, SOB at rest Gastrointestinal/Abdominal: Reports: abdominal pain; Denies: abdomen distended, difficulty swallowing, nausea Genitourinary: Denies: burning, discharge, frequency, flank pain, hematuria, incontinence, pain, urgency Neurologic/Psychiatric: Denies: anxiety, depressed, emotional problems, headache, numbness, paresthesia, pre-existing deficit, seizure, tingling, tremors, weakness Endocrine: Denies: excessive sweating, flushing, intolerance to cold, intolerance to heat, increased hunger, increased thirst, increased urine, unexplained weight gain, unexplained weight loss Hematologic/Lymphatic: Denies: anemia, easy bleeding, easy bruising Allergies: Coded Allergies: No Known Allergies (Unverified , 08/15/19) Subjective no acute events overnight. no complaints today. VSS. Denies fevers, chest pain, abdominal pain. Pending insurance for d/c. Objective Last 24 Hour Vital Signs Date Time Temp Pulse Resp B/P (MAP) Pulse Ox O2 Delivery O2 Flow Rate FiO2 12/08/19 09:00 Room Air 12/08/19 08:00 98.2 68 18 102/61 (75) 97 12/08/19 04:00 97.9 74 20 125/74 (91) 98 12/08/19 00:00 98.1 76 20 104/61 (75) 97 12/07/19 21:00 Room Air 12/07/19 20:00 98.2 68 18 102/61 (75) 98 12/07/19 16:00 98.4 68 18 110/69 (83) 95 12/07/19 12:00 96.5 68 17 97/59 (72) 97 Intake and Output 12/07/19 12/08/19 19:00 07:00 Intake Total 720 ml 360 ml Output Total 900 ml Balance 720 ml -540 ml Intake Oral 720 ml Other 360 ml Output Urine Total 900 ml # Bowel Movements 1 Height (Feet): 5 Height (Inches): 7.00 Weight (Pounds): 114 General Appearance: no apparent distress, alert EENT: PERRL/EOMI Neck: normal alignment, supple Cardiovascular: normal rate, regular rhythm Respiratory/Chest: lungs clear, normal breath sounds, no respiratory distress Abdomen: non tender, soft, other - left sided colosctomy bag Pelvis: other Genitourinary/Rectal: other - donohue in placed Extremities: other - bilateral LE paraplegia, UE 5/5 strength Edema: no edema noted Arm (L), no edema noted Arm (R), no edema noted Leg (L), no edema noted Leg (R), no edema noted Pedal (L), no edema noted Pedal (R), no edema noted 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 -Pt has IVC filter -D/w Heme, cont eliquis 2.5 BID -monitor for signs of bleeding #Septic Shock w/ /MSK/Pulm source ( Proteus, Actinobacter, GPC, fungal UTI, VRE and Sacral Ulcer, ?HCAP) - resolved #Bilateral LE Paraplegia #Sacral pressure ulcer, present on admit - Cont Local wound care and offloading - monitoring off abx #Stage IV Sacral Decubitus Ulcer Cleanse Sacral Wound and R Ischial wounds with Dakin's 0.125% gian. Loosely pack wounds with Hydrogel impregnated Kerlix. Apply Moisture Barrier Paste periwound. Cover with ABD Pads secure with Tegaderm drsg.Daily and prn. Apply Triad Paste to R Hip/R trochanteric areas.Cover with Optifoam drsg. Change every 7 days and prn. Apply Betadine to Medial R Knee. Cover with Optifoam drsg. Change every 7 days and prn. Apply Betadine to R and L Heels. Cover each Heel with Optifoam drsgs. Change every 7 days and prn. Cover Bony Prominences as needed with Optifoam drsgs. Reposition at least every 2 [address] tolerated[address] Pillow between knees. Off-load heels with pillow. 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 -Evaluated by endocrine for adrenal insufficiency -AM cortisol normal however patient continues to have labile BP - Will continue Florinef, Salt Tab, and DDAVP - Continue Midodrine given labile BP #Anemia, acute on chronic - stable -s/p 2 units RBC 10/28 -Hematology following, no signs of overt bleeding - Continue Iron tab - Keep Hb >7 #Chronic Lower extremity pain Likely 2' contractures and prior accident - Gabapentin, Kellogg, Baclofen - pain management consulted, recs appreciated # Left colostomy # Chronic Indwelling donohue catheter I spent 31 minutes on this discharge encounter, with 16 minutes discussing and coordinating care with RN and CM. Time does not reflect time of patient seen. Justin Umana D.O Dec 08, 2019 10:46
[2019-12-08 12:00] VITALS: BP 112/60
--- NOTE | 2019-12-08 15:38 | Surgery Progress Note ---
Surgery Progress Note Subjective Symptoms: improved, tolerating diet, passing flatus Objective Last 24 Hour Vital Signs Date Time Temp Pulse Resp B/P (MAP) Pulse Ox O2 Delivery O2 Flow Rate FiO2 12/08/19 12:00 97.5 69 18 112/60 (77) 98 12/08/19 09:00 Room Air 12/08/19 08:00 98.2 68 18 102/61 (75) 97 12/08/19 04:00 97.9 74 20 125/74 (91) 98 12/08/19 00:00 98.1 76 20 104/61 (75) 97 12/07/19 21:00 Room Air 12/07/19 20:00 98.2 68 18 102/61 (75) 98 12/07/19 16:00 98.4 68 18 110/69 (83) 95 I&O Intake and Output 12/07/19 12/08/19 19:00 07:00 Intake Total 720 ml 360 ml Output Total 900 ml Balance 720 ml -540 ml Intake Oral 720 ml Other 360 ml Output Urine Total 900 ml # Bowel Movements 1 Dressing: saturated Cardiovascular: RSR Respiratory: decreased breath sounds Abdomen: soft, non-tender, present bowel sounds Extremities: no edema, no tenderness, no cyanosis Plan Problems: (1) Abdominal distension Assessment & Plan: abd distention soft non tender ostomy viable and reduced KUB ordered pending results improved comfortable no complaints okay for diet s tolerated d/c planning much improved There is an inferior vena cava filter in place. Bowel gas pattern is unremarkable. Considerable stool is seen in the transverse and distal colon. There is extensive pelvic deformity, with loss of the left femoral head, chronic dislocation of the left femur, and extensive pelvic deformity, particularly on the left. Adi project over the upper pelvis Impression: Possible constipation. pending placement Nonobstructed bowel gas pattern. Moderate fecal retention of the ascending colon and sigmoid colon. The degree of stool burden has increased from October 25, 2019. IVC filter, incidentally noted. Partial subluxation of the right hip. Osteotomy of the proximal left femur with deformity of the bilateral pubic rami and left acetabulum, unchanged. 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 Munger Shaped, Full Thickness Sacral Pressure Injury which extends into L ischium. (L)15.4cm x (W)18cm x (D)2.4cm, Undermining clockwise 10-2 by 7.7cm @11o'clock. Base of wound is moist,pink with scattered slough at base of wound. Bone is palpable at the Base. No odor or exudate noted. Scattered partial thickness wounds and Serous filled blisters noted to R trochanteric /R Hip areas. Historical scar noted to L groin, L Hip L Buttocks. Bony protrusion noted at L Hip. Full thickness Pressure Injury R Ischium(L)5.4cm x(W)6.9cm x (D)1.8cm,Undermining clockwise 1-4 by 2.7cm @2o'clock, Tunneling@7o'clock 2.9cm. Base of wound is moist pink with scattered slough. Scattered slough noted along borders. NO odor or exudate noted. Stable dry eschar noted to medial R knee 0.7cm x (W)0.4cm. Periwound is erythematous and indurated. No elevation in skin temp noted. L heel has shaved appearance secondary to Hx of Pressure Injuries. Base of heel is pale pink. Bone is palpable. Small area of slough noted within compromised area(L)0.6cm x (W)0.8cm. L Heel Also has shaved appearance with hypertrophic scarring. Base of compromised area is pale pink, Bone is palpable, with scattered loose, dry and scaly skin. Patient's wound remains very large extensive and requires significant amount of care. Continued care of the wounds have been provided though patient is having continence through the anus at this time again despite diversion. Wounds remain saturated times and great nursing care is being provided unfortunately inevitable decline is still significantly potential given his overall condition. Tx.Plan: Cleanse Sacral Wound and R Ischial wounds with Dakin's 0.125% gian. Loosely pack wounds with Hydrogel impregnated Kerlix. Apply Moisture Barrier Paste periwound. Cover with ABD Pads secure with Tegaderm drsg.Daily and prn. Apply Triad Paste to R Hip/R trochanteric areas.Cover with Optifoam drsg. Change every 7 days and prn. Apply Betadine to Medial R Knee. Cover with Optifoam drsg. Change every 7 days and prn. Apply Betadine to R and L Heels. Cover each Heel with Optifoam drsgs. Change every 7 days and prn. Cover Bony Prominences as needed with Optifoam drsgs. Reposition at least every [address] tolerated[address] Pillow between knees. Off-load heels with pillow. APM/SUMI Mattress overlay DAILY ESTIMATED NEEDS: Needs based on Advanced wounds, wt loss/ 40.18kg 35-40 kcals/kg 2321-6769 total kcals 1.5-2.0 g protein/kg 60-80 g total protein 25-35ml/kcal mL/kg 2179-6759 total fluid mLs NUTRITION DIAGNOSIS: Increased kcal/prot/micronutrients needs R/T wound healing and underweight status as evidenced by pt admitted w/ multiple advanced wounds, refer to WC eval, pt now w/ further 3% unfavorable wt loss, currently BMI underweight per guidelines, @62% of [facility] Body Weight. 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 SLIP + Ensure Enlive TID w/ meals ADDITIONAL RECOMMENDATIONS: * Per SNF: HT=66" WT=88lbs; -> vs current EMR wt =120# -> Recalibrate bed scale for accurate wts * Continue Ensure TID, whole milk TID w/ meals * Monitor for continued improved/good Po intake * Wound healing:add MVI w/ min qdaily Continue w/ ZnSO4, Vit C, and Amari BID * Monitor Na, need for fluid restriction - (132 improved, on nacl) (15) SEAN (acute kidney injury) (16) Ileostomy prolapse Assessment & Plan: currently reduced but abd distended pending films films reviewed improved okay for diet d/c planning There is what appears to be a diverting colostomy of the distal sigmoid in the left lower quadrant. There is distention of the rectum with feces, rectal diameter 70 mm. There is some thickening of the rectal wall. The appendix is not definitely visualized, but no findings to suggest acute appendicitis are evident. There is considerable stool throughout the colon. There appears to be rectal incontinence of stool despite the diverting colostomy. Cornelius Salgado Dec 08, 2019 15:38
[2019-12-08 16:00] VITALS: BP 107/61
--- NOTE | 2019-12-08 16:54 | Cardiac Electrophysiology PN ---
Assessment/Plan Assessment/Plan 1. S/P Septic shock on Midodrine and antibiotic 2. Bradycardia. Resolved. 3. Paraplegia. 4. Urinary tract infection, 5. Decubitus ulcers with sacral decubitus. 6. S/P Ileostomy/ 7. Polyuria, DI. On Salt tablets DW RN Going to [facility] pending insurance auth Subjective Subjective Alert in NAD.Awaiting placement pending insurance authorization Objective Last 24 Hour Vital Signs Date Time Temp Pulse Resp B/P (MAP) Pulse Ox O2 Delivery O2 Flow Rate FiO2 12/08/19 12:00 97.5 69 18 112/60 (77) 98 12/08/19 09:00 Room Air 12/08/19 08:00 98.2 68 18 102/61 (75) 97 12/08/19 04:00 97.9 74 20 125/74 (91) 98 12/08/19 00:00 98.1 76 20 104/61 (75) 97 12/07/19 21:00 Room Air 12/07/19 20:00 98.2 68 18 102/61 (75) 98 Intake and Output 12/07/19 12/08/19 19:00 07:00 Intake Total 720 ml 360 ml Output Total 900 ml Balance 720 ml -540 ml Intake Oral 720 ml Other 360 ml Output Urine Total 900 ml # Bowel Movements 1 Objective HEAD AND NECK: No JVD. LUNGS: Coarse rhonchi. CARDIOVASCULAR: Regular S1 and S2 with no gallop. ABDOMEN: Soft. S/P Ileostomy EXTREMITIES: No pitting edema Carloz Estes MD Dec 08, 2019 16:54
[2019-12-08 20:00] VITALS: BP 109/60
[2019-12-08] MEDS: Dyna-Hex 2% Top Sol 2oz TOPIC SCH (22:30)
[2019-12-08] MEDS: HYDROcodone/Acetamin 5/325 tab ORAL PRN (22:31)
[2019-12-09] VITALS (7 sets, daily range): BP systolic 101–138; BP diastolic 53–92
[2019-12-09] MEDS: Midodrine 10mg tab ORAL SCH ×3 (06:51→22:17)
[2019-12-09] MEDS: Zinc Sulfate 220mg ORAL SCH (08:38)
[2019-12-09] MEDS: Docusate Sod/Senna tab ORAL SCH ×2 (08:38→17:20)
[2019-12-09] MEDS: Eliquis 2.5mg tablet ORAL SCH ×2 (08:38→17:20)
[2019-12-09] MEDS: Sodium Chloride 1gm Tab ORAL SCH (08:38)
[2019-12-09] MEDS: Desmopressin Nasal 5ml NASAL SCH (10:34)
[2019-12-09] MEDS: Dakin's 0.125% Soln (Quarter Strength) 16oz TOPIC SCH (10:34)
--- NOTE | 2019-12-09 11:02 | Pulmonology Progress Note ---
Subjective ROS Limited/Unobtainable: Yes Interval Events: None new Constitutional: Denies: fever HEENT: Repors: no symptoms Respiratory: Reports: no symptoms Cardiovascular: Reports: no symptoms Gastrointestinal/Abdominal: Denies: nausea, vomiting, diarrhea Genitourinary: Reports: no symptoms Psychiatric: Denies: depression Skin: Denies: rash Musculoskeletal: Denies: pain Allergies: Coded Allergies: No Known Allergies (Unverified , 08/15/19) All Systems: reviewed and negative except above Objective Last 24 Hour Vital Signs Date Time Temp Pulse Resp B/P (MAP) Pulse Ox O2 Delivery O2 Flow Rate FiO2 12/09/19 09:00 Room Air 12/09/19 08:00 98.4 91 18 138/92 (107) 98 12/09/19 06:00 97.6 86 19 101/53 (69) 96 12/09/19 04:00 98.0 86 17 101/53 (69) 96 12/09/19 00:00 98.1 82 20 112/66 (81) 95 12/08/19 21:00 Room Air 12/08/19 20:00 97.9 88 20 109/60 (76) 96 12/08/19 16:00 98.1 70 18 107/61 (76) 99 12/08/19 12:00 97.5 69 18 112/60 (77) 98 Intake and Output 12/08/19 12/09/19 19:00 07:00 Intake Total 840 ml Output Total 800 ml 500 ml Balance 40 ml -500 ml Intake Oral 840 ml Output Urine Total 800 ml 500 ml # Voids 1 General Appearance: no acute distress HEENT: normocephalic Respiratory: chest wall non-tender, lungs clear Cardiovascular: normal peripheral pulses, regular rhythm Abdomen: normal bowel sounds Extremities: no cyanosis Current Medications Medications (Trade) Dose Ordered Sig/Mya Route PRN Reason Start Time Stop Time Status Last Admin Dose Admin Acetaminophen/ Hydrocodone Bitart ([place] 5/325) 1 tab Q6H PRN ORAL Severe Pain (Pain Scale 7-10) 12/04/19 10:36 12/11/19 10:35 12/08/19 22:31 Apixaban (Eliquis) 2.5 mg BID ORAL 11/24/19 09:00 02/22/20 08:59 12/09/19 08:38 Bisacodyl (Dulcolax) 10 mg DAILYPRN PRN RECTAL Constipation 11/24/19 07:45 02/22/20 07:44 Chlorhexidine Gluconate (Simran-Hex 2%) 1 applic DAILY@1999 TOPIC 11/13/19 20:00 02/11/20 19:59 12/08/19 22:30 Desmopressin Acetate (Ddavp) 1 spray DAILY NASAL 11/14/19 09:00 02/07/20 17:59 12/09/19 10:34 Dextrose (Dextrose 50%) 25 ml Q30M PRN IV Hypoglycemia 11/05/19 13:30 01/21/20 17:29 Dextrose (Dextrose 50%) 50 ml Q30M PRN IV Hypoglycemia 11/05/19 13:30 01/21/20 17:29 Famotidine (Pepcid) 20 mg DAILY ORAL 11/06/19 09:00 01/28/20 09:29 12/09/19 08:38 Ferrous Sulfate (Feosol) 325 mg DAILY ORAL 11/06/19 09:00 01/22/20 08:59 12/09/19 08:38 Fludrocortisone Acetate (Florinef) 0.1 mg DAILY ORAL 11/15/19 09:00 12/15/19 08:59 12/09/19 08:38 Magnesium Hydroxide (Mom) 30 ml HSPRN PRN ORAL Constipation 11/13/19 11:15 12/13/19 11:14 Midodrine (Pro-Amatine) 10 mg EVERY 8 HOURS ORAL 11/05/19 14:00 01/21/20 17:59 12/09/19 06:51 Naloxone HCl (Narcan) 0.2 mg Q2M PRN IVP RESPRITORY DEPRESSION RR<8 11/24/19 10:15 02/22/20 10:14 Senna/Docusate Sodium (Haley-Colace) 1 tab TWICE A DAY ORAL 11/24/19 09:00 12/24/19 08:59 12/09/19 08:38 Sodium Hypochlorite (Dakin's Quarter Strength) 1 applic DAILY TOPIC 12/01/19 09:00 12/31/19 08:59 12/09/19 10:34 Sodium Chloride (NaCl) 1 gm THREE TIMES A DAY ORAL 11/09/19 13:00 12/09/19 12:59 12/09/19 08:38 Zinc Sulfate (Zinc Sulfate) 220 mg DAILY ORAL 11/06/19 09:00 01/22/20 08:59 12/09/19 08:38 Assessment/Plan Assessment/Plan Assessment/Plan IMPRESSION: 1. Septic shock. resolved 2. Complicated UTI with history of previous ESBL infection. 3. Paraplegia. 4. Sacral decubitus. 5. intermediate resident. 6. Hypoxemia 7. Pneumonia treated DISCUSSION: monitor clinically oxygen as needed monitor imaging as needed impression, plan, and exam edited and reviewed in detail care discussed with Carlos Pope MD Dec 09, 2019 11:02
--- NOTE | 2019-12-09 11:10 | General Progress Note ---
Subjective Date patient seen: Dec 09, 2019 Constitutional: Denies: no symptoms, chills, diaphoresis, fever, malaise, weakness, other HEENT: Denies: no symptoms, eye pain, blurred vision, tearing, double vision, ear pain, ear discharge, nose pain, nose congestion, throat pain, throat swelling, mouth pain, mouth swelling, other Cardiovascular: Denies: no symptoms, chest pain, edema, irregular heart rate, lightheadedness, palpitations, syncope, other Respiratory: Denies: no symptoms, cough, orthopnea, shortness of breath, SOB with excertion, SOB at rest, sputum, stridor, wheezing, other Gastrointestinal/Abdominal: Denies: no symptoms, abdomen distended, abdominal pain, black stools, tarry stools, blood in stool, constipated, diarrhea, difficulty swallowing, nausea, poor appetite, poor fluid intake, rectal bleeding, vomiting, other Genitourinary: Denies: no symptoms, burning, discharge, frequency, flank pain, hematuria, incontinence, pain, urgency, other Neurologic/Psychiatric: Denies: no symptoms, anxiety, depressed, emotional problems, headache, numbness, paresthesia, pre-existing deficit, seizure, tingling, tremors, weakness, other Endocrine: Denies: no symptoms, excessive sweating, flushing, intolerance to cold, intolerance to heat, increased hunger, increased thirst, increased urine, unexplained weight gain, unexplained weight loss, other Hematologic/Lymphatic: Denies: no symptoms, anemia, easy bleeding, easy bruising, other Allergies: Coded Allergies: No Known Allergies (Unverified , 08/15/19) Subjective no acute events overnight. no complaints today. VSS. Watching tv, follow all commands. Pending insurance for d/c. Objective Last 24 Hour Vital Signs Date Time Temp Pulse Resp B/P (MAP) Pulse Ox O2 Delivery O2 Flow Rate FiO2 12/09/19 09:00 Room Air 12/09/19 08:00 98.4 91 18 138/92 (107) 98 12/09/19 06:00 97.6 86 19 101/53 (69) 96 12/09/19 04:00 98.0 86 17 101/53 (69) 96 12/09/19 00:00 98.1 82 20 112/66 (81) 95 9/25/20 21:00 Room Air 12/08/19 20:00 97.9 88 20 109/60 (76) 96 12/08/19 16:00 98.1 70 18 107/61 (76) 99 12/08/19 12:00 97.5 69 18 112/60 (77) 98 Intake and Output 12/08/19 12/09/19 19:00 07:00 Intake Total 840 ml Output Total 800 ml 500 ml Balance 40 ml -500 ml Intake Oral 840 ml Output Urine Total 800 ml 500 ml # Voids 1 Height (Feet): 5 Height (Inches): 7.00 Weight (Pounds): 114 General Appearance: no apparent distress, alert EENT: PERRL/EOMI Neck: non-tender Cardiovascular: normal rate, regular rhythm, no JVD Respiratory/Chest: lungs clear, normal breath sounds, no respiratory distress Abdomen: normal bowel sounds, non tender, soft, other - left sided colostomy bag, so erythema or skin breakdown Extremities: other - bilateral LE paraplegia, UE motor 5/5 strength Edema: no edema noted Arm (L), no edema noted Arm (R), no edema noted Leg (L), no edema noted Leg (R), no edema noted Pedal (L), no edema noted Pedal (R), no edema noted 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 -Pt has IVC filter -D/w Heme, cont eliquis 2.5 BID -monitor for signs of bleeding #Septic Shock w/ /MSK/Pulm source ( Proteus, Actinobacter, GPC, fungal UTI, VRE and Sacral Ulcer, ?HCAP) - resolved #Bilateral LE Paraplegia #Sacral pressure ulcer, present on admit - Cont Local wound care and offloading - monitoring off abx #Stage IV Sacral Decubitus Ulcer Cleanse Sacral Wound and R Ischial wounds with Dakin's 0.125% gian. Loosely pack wounds with Hydrogel impregnated Kerlix. Apply Moisture Barrier Paste periwound. Cover with ABD Pads secure with Tegaderm drsg.Daily and prn. Apply Triad Paste to R Hip/R trochanteric areas.Cover with Optifoam drsg. Change every 7 days and prn. Apply Betadine to Medial R Knee. Cover with Optifoam drsg. Change every 7 days and prn. Apply Betadine to R and L Heels. Cover each Heel with Optifoam drsgs. Change every 7 days and prn. Cover Bony Prominences as needed with Optifoam drsgs. Reposition at least every 2 [address] as tolerated[address] Pillow between knees. Off-load heels with pillow. 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 Time does not reflect time of patient seen. Justin Umana D.O Dec 09, 2019 11:10
--- NOTE | 2019-12-09 16:04 | Cardiac Electrophysiology PN ---
Assessment/Plan Assessment/Plan 1. S/P Septic shock on Midodrine and antibiotic 2. Bradycardia. Resolved. 3. Paraplegia. 4. Urinary tract infection, 5. Decubitus ulcers with sacral decubitus. 6. S/P Ileostomy/ 7. Polyuria, DI. On Salt tablets DW RN Going to [facility] after insurance auth Subjective Subjective Alert in NAD. Awaiting placement and insurance authorization Objective Last 24 Hour Vital Signs Date Time Temp Pulse Resp B/P (MAP) Pulse Ox O2 Delivery O2 Flow Rate FiO2 12/09/19 12:00 97.8 76 21 108/64 (79) 98 12/09/19 09:00 Room Air 12/09/19 08:00 98.4 91 18 138/92 (107) 98 12/09/19 06:00 97.6 86 19 101/53 (69) 96 12/09/19 04:00 98.0 86 17 101/53 (69) 96 12/09/19 00:00 98.1 82 20 112/66 (81) 95 12/08/19 21:00 Room Air 12/08/19 20:00 97.9 88 20 109/60 (76) 96 Intake and Output 12/08/19 12/09/19 19:00 07:00 Intake Total 840 ml Output Total 800 ml 500 ml Balance 40 ml -500 ml Intake Oral 840 ml Output Urine Total 800 ml 500 ml # Voids 1 Objective HEAD AND NECK: No JVD. LUNGS: Coarse rhonchi. CARDIOVASCULAR: Regular S1 and S2 with no gallop. ABDOMEN: Soft. S/P Ileostomy EXTREMITIES: No pitting edema Carloz Estes MD Dec 09, 2019 16:04
--- NOTE | 2019-12-09 18:37 | Nephrology Progress Note ---
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 - improved with desmporessin #Shock #UTI # infected sacral pressure ulcer #Acute metabolic encephalopathy #Paraplegia #Sacral pressure ulcer #Hypokalemia #Anemia - continue florinef 0.1mg daily -Continue desmopressin nasal - continue salt tabs 1g TID - continue midodrine 10 TID - endocrine eval noted - r/o adrenal insuffiency - antibiotics per ID - monitor lytes - avoid nephrotoxins - daily weights - strict I&Os time spent 40 min- greater than 50% on care coordination and counseling Subjective ROS Limited/Unobtainable: No Constitutional: Reports: weakness HEENT: Denies: no symptoms, eye pain, blurred vision, tearing, double vision, ear pain, ear discharge, nose pain, nose congestion, throat pain, throat swelling, mouth pain, mouth swelling, other Genitourinary: Denies: no symptoms, burning, discharge, frequency, flank pain, hematuria, incontinence, pain, urgency, other Neurologic/Psychiatric: Denies: no symptoms, anxiety, depressed, emotional problems, headache, numbness, paresthesia, pre-existing deficit, seizure, tingling, tremors, weakness, other Subjective on florinef 0.1mg daily Bp stable on nasal desmopressin on salt tabs Objective Objective Last 24 Hour Vital Signs Date Time Temp Pulse Resp B/P (MAP) Pulse Ox O2 Delivery O2 Flow Rate FiO2 12/09/19 16:00 98.4 79 18 108/59 (75) 99 12/09/19 12:00 97.8 76 21 108/64 (79) 98 12/09/19 09:00 Room Air 12/09/19 08:00 98.4 91 18 138/92 (107) 98 12/09/19 06:00 97.6 86 19 101/53 (69) 96 12/09/19 04:00 98.0 86 17 101/53 (69) 96 12/09/19 00:00 98.1 82 20 112/66 (81) 95 12/08/19 21:00 Room Air 12/08/19 20:00 97.9 88 20 109/60 (76) 96 Intake and Output 12/08/19 12/09/19 19:00 07:00 Intake Total 840 ml Output Total 800 ml 500 ml Balance 40 ml -500 ml Intake Oral 840 ml Output Urine Total 800 ml 500 ml # Voids 1 Height (Feet): 5 Height (Inches): 7.00 Weight (Pounds): 114 Sienna Georges M.D. Dec 09, 2019 18:37
--- NOTE | 2019-12-09 20:02 | Surgery Progress Note ---
Surgery Progress Note Subjective Symptoms: improved, tolerating diet, passing flatus Objective Last 24 Hour Vital Signs Date Time Temp Pulse Resp B/P (MAP) Pulse Ox O2 Delivery O2 Flow Rate FiO2 12/09/19 16:00 98.4 79 18 108/59 (75) 99 12/09/19 12:00 97.8 76 21 108/64 (79) 98 12/09/19 09:00 Room Air 12/09/19 08:00 98.4 91 18 138/92 (107) 98 12/09/19 06:00 97.6 86 19 101/53 (69) 96 12/09/19 04:00 98.0 86 17 101/53 (69) 96 12/09/19 00:00 98.1 82 20 112/66 (81) 95 12/08/19 21:00 Room Air I&O Intake and Output 12/08/19 12/09/19 19:00 07:00 Intake Total 840 ml Output Total 800 ml 500 ml Balance 40 ml -500 ml Intake Oral 840 ml Output Urine Total 800 ml 500 ml # Voids 1 Dressing: saturated Cardiovascular: RSR Respiratory: decreased breath sounds Abdomen: soft, non-tender, present bowel sounds Extremities: no edema, no tenderness Plan Problems: (1) Abdominal distension Assessment & Plan: abd distention soft non tender ostomy viable and reduced KUB ordered pending results improved comfortable no complaints okay for diet s tolerated d/c planning much improved There is an inferior vena cava filter in place. Bowel gas pattern is unremarkable. Considerable stool is seen in the transverse and distal colon. There is extensive pelvic deformity, with loss of the left femoral head, chronic dislocation of the left femur, and extensive pelvic deformity, particularly on the left. [place] project over the upper pelvis Impression: Possible constipation. pending placement Nonobstructed bowel gas pattern. Moderate fecal retention of the ascending colon and sigmoid colon. The degree of stool burden has increased from October 25, 2019. IVC filter, incidentally noted. Partial subluxation of the right hip. Osteotomy of the proximal left femur with deformity of the bilateral pubic rami and left acetabulum, unchanged. 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 [place] Shaped, Full Thickness Sacral Pressure Injury which extends into L ischium. (L)15.4cm x (W)18cm x (D)2.4cm, Undermining clockwise 10-2 by 7.7cm @11o'clock. Base of wound is moist,pink with scattered slough at base of wound. Bone is palpable at the Base. No odor or exudate noted. Scattered partial thickness wounds and Serous filled blisters noted to R trochanteric /R Hip areas. Historical scar noted to L groin, L Hip L Buttocks. Bony protrusion noted at L Hip. Full thickness Pressure Injury R Ischium(L)5.4cm x(W)6.9cm x (D)1.8cm,Undermining clockwise 1-4 by 2.7cm @2o'clock, Tunneling@7o'clock 2.9cm. Base of wound is moist pink with scattered slough. Scattered slough noted along borders. NO odor or exudate noted. Stable dry eschar noted to medial R knee 0.7cm x (W)0.4cm. Periwound is erythematous and indurated. No elevation in skin temp noted. L heel has shaved appearance secondary to Hx of Pressure Injuries. Base of heel is pale pink. Bone is palpable. Small area of slough noted within compromised area(L)0.6cm x (W)0.8cm. L Heel Also has shaved appearance with hypertrophic scarring. Base of compromised area is pale pink, Bone is palpable, with scattered loose, dry and scaly skin. Patient's wound remains very large extensive and requires significant amount of care. Continued care of the wounds have been provided though patient is having continence through the anus at this time again despite diversion. Wounds remain saturated times and great nursing care is being provided unfortunately in evitable decline is still significantly potential given his overall condition. Tx.Plan: Cleanse Sacral Wound and R Ischial wounds with Dakin's 0.125% gian. Loosely pack wounds with Hydrogel impregnated Kerlix. Apply Moisture Barrier Paste periwound. Cover with ABD Pads secure with Tegaderm drsg.Daily and prn. Apply Triad Paste to R Hip/R trochanteric areas.Cover with Optifoam drsg. Change every 7 days and prn. Apply Betadine to Medial R Knee. Cover with Optifoam drsg. Change every 7 days and prn. Apply Betadine to R and L Heels. Cover each Heel with Optifoam drsgs. Change every 7 days and prn. Cover Bony Prominences as needed with Optifoam drsgs. Reposition at least every 2 [address] as tolerated[address] Pillow between knees. Off-load heels with pillow. APM/SUMI Mattress overlay DAILY ESTIMATED NEEDS: Needs based on Advanced wounds, wt loss/ 40.18kg 35-40 kcals/kg [id number] total kcals 1.5-2.0 g protein/kg 60-80 g total protein 25-35ml/kcal mL/kg [id number] total fluid mLs NUTRITION DIAGNOSIS: Increased kcal/prot/micronutrients needs R/T wound healing and underweight status as evidenced by pt admitted w/ multiple advanced wounds, refer to WC eval, pt now w/ further 3% unfavorable wt loss, currently BMI underweight per guidelines, @62% of [place] Body Weight. 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 There is distention of the rectum with feces, rectal diameter 70 mm. There is some thickening of the rectal wall. The appendix is not definitely visualized, but no findings to suggest acute appendicitis are evident. There is considerable stool throughout the colon. There appears to be rectal incontinence of stool despite the diverting colostomy. Cornelius Salgado Dec 09, 2019 20:02
[2019-12-09] MEDS: Dyna-Hex 2% Top Sol 2oz TOPIC SCH (20:24)
[2019-12-09] MEDS: HYDROcodone/Acetamin 5/325 tab ORAL PRN (20:26)
[2019-12-10] VITALS: BP 104/63
[2019-12-10] MEDS: HYDROcodone/Acetamin 5/325 tab ORAL PRN ×3 (02:51→21:59)
[2019-12-10 04:00] VITALS: BP 110/53
[2019-12-10] MEDS: Midodrine 10mg tab ORAL SCH ×3 (05:42→21:25)
[2019-12-10 08:00] VITALS: BP 109/52
[2019-12-10] MEDS: Docusate Sod/Senna tab ORAL SCH ×2 (08:07→17:04)
[2019-12-10] MEDS: Zinc Sulfate 220mg ORAL SCH (08:07)
[2019-12-10] MEDS: Dakin's 0.125% Soln (Quarter Strength) 16oz TOPIC SCH (08:08)
[2019-12-10] MEDS: Desmopressin Nasal 5ml NASAL SCH (08:08)
[2019-12-10] MEDS: Eliquis 2.5mg tablet ORAL SCH ×2 (08:08→17:04)
--- NOTE | 2019-12-10 08:09 | Surgery Progress Note ---
Surgery Progress Note Subjective Symptoms: improved, pain absent, tolerating diet, voiding well, passing flatus, BM Objective Last 24 Hour Vital Signs Date Time Temp Pulse Resp B/P (MAP) Pulse Ox O2 Delivery O2 Flow Rate FiO2 12/10/19 04:00 97.0 71 20 110/53 (72) 96 12/10/19 00:00 96.4 64 19 104/63 (77) 97 12/09/19 21:00 Room Air 12/09/19 20:00 97.7 75 20 105/61 (76) 94 12/09/19 16:00 98.4 79 18 108/59 (75) 99 12/09/19 12:00 97.8 76 21 108/64 (79) 98 12/09/19 09:00 Room Air I&O Intake and Output 12/09/19 12/10/19 18:59 06:59 Intake Total 1080 ml 720 ml Output Total 800 ml 800 ml Balance 280 ml -80 ml Intake Oral 1080 ml 720 ml Output Urine Total 800 ml 800 ml # Bowel Movements 1 1 Dressing: saturated Cardiovascular: RSR Respiratory: clear Abdomen: soft, non-tender, present bowel sounds Extremities: no edema, no tenderness, no cyanosis Plan Problems: (1) Abdominal distension Assessment & Plan: abd distention soft non tender ostomy viable and reduced KUB ordered pending results improved comfortable no complaints okay for diet s tolerated d/c planning much improved There is an inferior vena cava filter in place. Bowel gas pattern is unremarkable. Considerable stool is seen in the transverse and distal colon. There is extensive pelvic deformity, with loss of the left femoral head, chronic dislocation of the left femur, and extensive pelvic deformity, particularly on the left. Adi project over the upper pelvis Impression: Possible constipation. pending placement Nonobstructed bowel gas pattern. Moderate fecal retention of the ascending colon and sigmoid colon. The degree of stool burden has increased from October 25, 2019. IVC filter, incidentally noted. Partial subluxation of the right hip. Osteotomy of the proximal left femur with deformity of the bilateral pubic rami and left acetabulum, unchanged. 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 [place] Shaped, Full Thickness Sacral Pressure Injury which extends into L ischium. (L)15.4cm x (W)18cm x (D)2.4cm, Undermining clockwise 10-2 by 7.7cm @11o'clock. Base of wound is moist,pink with scattered slough at base of wound. Bone is palpable at the Base. No odor or exudate noted. Scattered partial thickness wounds and Serous filled blisters noted to R troc hanteric /R Hip areas. Historical scar noted to L groin, L Hip L Buttocks. Bony protrusion noted at L Hip. Full thickness Pressure Injury R Ischium(L)5.4cm x(W)6.9cm x (D)1.8cm,Undermining clockwise 1-4 by 2.7cm @2o'clock, Tunneling@7o'clock 2.9cm. Base of wound is moist pink with scattered slough. Scattered slough noted along borders. NO odor or exudate noted. Stable dry eschar noted to medial R knee 0.7cm x (W)0.4cm. Periwound is erythematous and indurated. No elevation in skin temp noted. L heel has shaved appearance secondary to Hx of Pressure Injuries. Base of heel is pale pink. Bone is palpable. Small area of slough noted within compromised area(L)0.6cm x (W)0.8cm. L Heel Also has shaved appearance with hypertrophic scarring. Base of compromised area is pale pink, Bone is palpable, with scattered loose, dry and scaly skin. Patient's wound remains very large extensive and requires significant amount of care. Continued care of the wounds have been provided though patient is having continence through the anus at this time again despite diversion. Wounds remain saturated times and great nursing care is being provided unfortunately inevitable decline is still significantly potential given his overall condition. Tx.Plan: Cleanse Sacral Wound and R Ischial wounds with Dakin's 0.125% gian. Loosely pack wounds with Hydrogel impregnated Kerlix. Apply Moisture Barrier Paste periwound. Cover with ABD Pads secure with Tegaderm drsg.Daily and prn. Apply Triad Paste to R Hip/R trochanteric areas.Cover with Optifoam drsg. Change every 7 days and prn. Apply Betadine to Medial R Knee. Cover with Optifoam drsg. Change every 7 days and prn. Apply Betadine to R and L Heels. Cover each Heel with Optifoam drsgs. Change every 7 days and prn. Cover Bony Prominences as needed with Optifoam drsgs. Reposition at least every 2 [address] tolerated[address] Pillow between knees. Off-load heels with pillow. APM/SUMI Mattress overlay DAILY ESTIMATED NEEDS: Needs based on Advanced wounds, wt loss/ 40.18kg 35-40 kcals/kg 9640-0357 total kcals 1.5-2.0 g protein/kg 60-80 g total protein 25-35ml/kcal mL/kg 5117-5621 total fluid mLs NUTRITION DIAGNOSIS: Increased kcal/prot/micronutrients needs R/T wound healing and underweight status as evidenced by pt admitted w/ multiple advanced wounds, refer to WC eval, pt now w/ further 3% unfavorable wt loss, currently BMI underweight per guidelines, @62% of [place] Body Weight. 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 There is distention of the rectum with feces, rectal diameter 70 mm. There is some thickening of the rectal wall. The appendix is not definitely visualized, but no findings to suggest acute appendicitis are evident. There is considerable stool throughout the colon. There appears to be rectal incontinence of stool despite the diverting colostomy. Cornelius Salgado Dec 10, 2019 08:09
--- NOTE | 2019-12-10 08:45 | General Progress Note ---
Subjective Date patient seen: Dec 10, 2019 Time patient seen: 07:30 - am Allergies: Coded Allergies: No Known Allergies (Unverified , 08/15/19) Subjective REVIEW OF SYSTEMS: Denies rash, fever, chills, sweating, dizziness, drowsiness, blurred vision, sore throat, or change in weight. No shortness of breath or chest pain. No nausea, vomiting, diarrhea, blood in stool or urine. HISTORY OF PRESENT ILLNESS: This is a 59-year-old male who has been seen on the Med/Surg floor of [facility]. Patient showing no signs of pain or distress. Pain has been tolerated on the [place]. No new complaints at this time. Objective Last 24 Hour Vital Signs Date Time Temp Pulse Resp B/P (MAP) Pulse Ox O2 Delivery O2 Flow Rate FiO2 12/10/19 04:00 97.0 71 20 110/53 (72) 96 12/10/19 00:00 96.4 64 19 104/63 (77) 97 12/09/19 21:00 Room Air 12/09/19 20:00 97.7 75 20 105/61 (76) 94 12/09/19 16:00 98.4 79 18 108/59 (75) 99 12/09/19 12:00 97.8 76 21 108/64 (79) 98 12/09/19 09:00 Room Air Intake and Output 12/09/19 12/10/19 19:00 07:00 Intake Total 1080 ml 720 ml Output Total 800 ml 800 ml Balance 280 ml -80 ml Intake Oral 1080 ml 720 ml Output Urine Total 800 ml 800 ml # Bowel Movements 1 1 Height (Feet): 5 Height (Inches): 7.00 Weight (Pounds): 114 Objective PHYSICAL EXAMINATION: GENERAL: Alert, awake, and oriented. LUNGS: Decreased breath sounds bilaterally. HEART: S1, S2 regular. ABDOMEN: Colostomy bag noted. EXTREMITIES: Upper and lower extremity range of motion is decreased due to the patient's condition. Contracture is noted. Sensory is reduced. Reflexes are not obtainable. No adenopathy. Assessment/Plan Assessment/Plan: (1) Sacral decubitus ulcer (2) Paraplegia (3) Neuropathic pain Patient to be continued on [place] and Neurontin D/w Dr. Celaya and he concurred. Danny Raymundo Dec 10, 2019 08:45
--- NOTE | 2019-12-10 10:21 | Pulmonology Progress Note ---
Subjective ROS Limited/Unobtainable: No Constitutional: Denies: fever Gastrointestinal/Abdominal: Denies: nausea, vomiting, diarrhea Psychiatric: Denies: depression Skin: Denies: rash Musculoskeletal: Denies: pain Allergies: Coded Allergies: No Known Allergies (Unverified , 08/15/19) All Systems: reviewed and negative except above Subjective care noted and reviewed changes noted Objective Last 24 Hour Vital Signs Date Time Temp Pulse Resp B/P (MAP) Pulse Ox O2 Delivery O2 Flow Rate FiO2 12/10/19 08:00 97.2 85 18 109/52 (71) 94 12/10/19 04:00 97.0 71 20 110/53 (72) 96 12/10/19 00:00 96.4 64 19 104/63 (77) 97 12/09/19 21:00 Room Air 12/09/19 20:00 97.7 75 20 105/61 (76) 94 12/09/19 16:00 98.4 79 18 108/59 (75) 99 12/09/19 12:00 97.8 76 21 108/64 (79) 98 Intake and Output 12/09/19 12/10/19 19:00 07:00 Intake Total 1080 ml 720 ml Output Total 800 ml 800 ml Balance 280 ml -80 ml Intake Oral 1080 ml 720 ml Output Urine Total 800 ml 800 ml # Bowel Movements 1 1 General Appearance: no acute distress HEENT: normocephalic Respiratory: chest wall non-tender, lungs clear, normal breath sounds, no respiratory distress Cardiovascular: normal peripheral pulses, regular rhythm Abdomen: normal bowel sounds, soft, non tender Extremities: no cyanosis, no clubbing, no edema Current Medications Medications (Trade) Dose Ordered Sig/Mya Route PRN Reason Start Time Stop Time Status Last Admin Dose Admin Acetaminophen/ Hydrocodone Bitart ([place] 5/325) 1 tab Q6H PRN ORAL Severe Pain (Pain Scale 7-10) 12/10/19 09:00 12/17/19 08:59 Apixaban (Eliquis) 2.5 mg BID ORAL 11/24/19 09:00 02/22/20 08:59 12/10/19 08:08 Bisacodyl (Dulcolax) 10 mg DAILYPRN PRN RECTAL Constipation 11/24/19 07:45 02/22/20 07:44 Chlorhexidine Gluconate (Simran-Hex 2%) 1 applic DAILY@1999 TOPIC 11/13/19 20:00 02/11/20 19:59 12/09/19 20:24 Desmopressin Acetate (Ddavp) 1 spray DAILY NASAL 11/14/19 09:00 02/07/20 17:59 12/10/19 08:08 Dextrose (Dextrose 50%) 25 ml Q30M PRN IV Hypoglycemia 11/05/19 13:30 01/21/20 17:29 Dextrose (Dextrose 50%) 50 ml Q30M PRN IV Hypoglycemia 11/05/19 13:30 01/21/20 17:29 Famotidine (Pepcid) 20 mg DAILY ORAL 11/06/19 09:00 01/28/20 09:29 12/10/19 08:07 Ferrous Sulfate (Feosol) 325 mg DAILY ORAL 11/06/19 09:00 01/22/20 08:59 12/10/19 08:07 Fludrocortisone Acetate (Florinef) 0.1 mg DAILY ORAL 11/15/19 09:00 12/15/19 08:59 12/10/19 08:07 Magnesium Hydroxide (Mom) 30 ml HSPRN PRN ORAL Constipation 11/13/19 11:15 12/13/19 11:14 Midodrine (Pro-Amatine) 10 mg EVERY 8 HOURS ORAL 11/05/19 14:00 01/21/20 17:59 12/10/19 05:42 Naloxone HCl (Narcan) 0.2 mg Q2M PRN IVP RESPRITORY DEPRESSION RR<8 11/24/19 10:15 02/22/20 10:14 Senna/Docusate Sodium (Haley-Colace) 1 tab TWICE A DAY ORAL 11/24/19 09:00 12/24/19 08:59 12/10/19 08:07 Sodium Hypochlorite (Dakin's Quarter Strength) 1 applic DAILY TOPIC 12/01/19 09:00 12/31/19 08:59 12/10/19 08:08 Zinc Sulfate (Zinc Sulfate) 220 mg DAILY ORAL 11/06/19 09:00 01/22/20 08:59 12/10/19 08:07 Assessment/Plan Assessment/Plan Assessment/Plan IMPRESSION: 1. Septic shock. resolved 2. Complicated UTI 3. Paraplegia. 4. Sacral decubitus. 5. residential resident. 6. Hypoxemia 7. Pneumonia treated DISCUSSION: monitor clinically oxygen as needed; currently off monitor imaging as needed ID to clear dc planning impression, plan, and exam edited and reviewed in detail care discussed with Carlos Pope MD Dec 10, 2019 10:21
[2019-12-10 12:06] VITALS: BP 99/59
--- NOTE | 2019-12-10 13:06 | Nephrology Progress Note ---
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 - improved with desmporessin #Shock #UTI # infected sacral pressure ulcer #Acute metabolic encephalopathy #Paraplegia #Sacral pressure ulcer #Hypokalemia #Anemia - REFUSING LABS - continue florinef 0.1mg daily -Continue desmopressin nasal - continue salt tabs 1g TID - continue midodrine 10 TID - endocrine eval noted - r/o adrenal insuffiency - antibiotics per ID - monitor lytes - avoid nephrotoxins - daily weights - strict I&Os time spent 40 min- greater than 50% on care coordination and counseling Subjective ROS Limited/Unobtainable: No Constitutional: Reports: weakness HEENT: Denies: no symptoms, eye pain, blurred vision, tearing, double vision, ear pain, ear discharge, nose pain, nose congestion, throat pain, throat swelling, mouth pain, mouth swelling, other Genitourinary: Denies: no symptoms, burning, discharge, frequency, flank pain, hematuria, incontinence, pain, urgency, other Neurologic/Psychiatric: Denies: no symptoms, anxiety, depressed, emotional problems, headache, numbness, paresthesia, pre-existing deficit, seizure, tingling, tremors, weakness, other Subjective REFUSING LABS on florinef 0.1mg daily Bp stable on nasal desmopressin on salt tabs Objective Objective Last 24 Hour Vital Signs Date Time Temp Pulse Resp B/P (MAP) Pulse Ox O2 Delivery O2 Flow Rate FiO2 12/10/19 12:06 97.8 76 18 99/59 (72) 99 12/10/19 08:00 97.2 85 18 109/52 (71) 94 12/10/19 04:00 97.0 71 20 110/53 (72) 96 12/10/19 00:00 96.4 64 19 104/63 (77) 97 12/09/19 21:00 Room Air 12/09/19 20:00 97.7 75 20 105/61 (76) 94 12/09/19 16:00 98.4 79 18 108/59 (75) 99 Intake and Output 12/09/19 12/10/19 19:00 07:00 Intake Total 1080 ml 720 ml Output Total 800 ml 800 ml Balance 280 ml -80 ml Intake Oral 1080 ml 720 ml Output Urine Total 800 ml 800 ml # Bowel Movements 1 1 Height (Feet): 5 Height (Inches): 7.00 Weight (Pounds): 114 Sienna Georges M.D. Dec 10, 2019 13:06
--- NOTE | 2019-12-10 13:29 | Cardiac Electrophysiology PN ---
Assessment/Plan Assessment/Plan 1. S/P Septic shock. Resolved. Now on Midodrine and off antibiotic 2. Bradycardia. Resolved. 3. Paraplegia. 4. Urinary tract infection, 5. Decubitus ulcers with sacral decubitus. 6. S/P Ileostomy/ 7. Polyuria, DI. On Salt tablets 8. Acute left upstream popliteal vein deep venous thrombosis IVC filter in place --> given acute nature, will continue eliquis, if drop in h/h, consider to hold eliquis as has ivc in place FU [facility] [place] [facility] RN Going to [facility] after insurance auth Subjective Subjective Alert in NAD. Awaiting placement and insurance authorization. No events Objective Last 24 Hour Vital Signs Date Time Temp Pulse Resp B/P (MAP) Pulse Ox O2 Delivery O2 Flow Rate FiO2 12/10/19 12:06 97.8 76 18 99/59 (72) 99 12/10/19 09:00 Room Air 12/10/19 08:00 97.2 85 18 109/52 (71) 94 12/10/19 04:00 97.0 71 20 110/53 (72) 96 12/10/19 00:00 96.4 64 19 104/63 (77) 97 12/09/19 21:00 Room Air 12/09/19 20:00 97.7 75 20 105/61 (76) 94 12/09/19 16:00 98.4 79 18 108/59 (75) 99 Intake and Output 12/09/19 12/10/19 19:00 07:00 Intake Total 1080 ml 720 ml Output Total 800 ml 800 ml Balance 280 ml -80 ml Intake Oral 1080 ml 720 ml Output Urine Total 800 ml 800 ml # Bowel Movements 1 1 Objective HEAD AND NECK: No JVD. LUNGS: Coarse rhonchi. CARDIOVASCULAR: Regular S1 and S2 with no gallop. ABDOMEN: Soft. S/P Ileostomy EXTREMITIES: No pitting edema Carloz Estes MD Dec 10, 2019 13:29
--- NOTE | 2019-12-10 13:32 | General Progress Note ---
Subjective Date patient seen: Dec 10, 2019 ROS Limited/Unobtainable: Yes Constitutional: Denies: no symptoms, chills, diaphoresis, fever, malaise, weakness, other HEENT: Denies: no symptoms, eye pain, blurred vision, tearing, double vision, ear pain, ear discharge, nose pain, nose congestion, throat pain, throat swelling, mouth pain, mouth swelling, other Cardiovascular: Denies: no symptoms, chest pain, edema, irregular heart rate, lightheadedness, palpitations, syncope, other Respiratory: Denies: no symptoms, cough, orthopnea, shortness of breath, SOB with excertion, SOB at rest, sputum, stridor, wheezing, other Gastrointestinal/Abdominal: Denies: no symptoms, abdomen distended, abdominal pain, black stools, tarry stools, blood in stool, constipated, diarrhea, difficulty swallowing, nausea, poor appetite, poor fluid intake, rectal bleeding, vomiting, other Neurologic/Psychiatric: Denies: no symptoms, anxiety, depressed, emotional problems, headache, numbness, paresthesia, pre-existing deficit, seizure, tingling, tremors, weakness, other Endocrine: Denies: no symptoms, excessive sweating, flushing, intolerance to cold, intolerance to heat, increased hunger, increased thirst, increased urine, unexplained weight gain, unexplained weight loss, other Allergies: Coded Allergies: No Known Allergies (Unverified , 08/15/19) Subjective no acute events overnight. no complaints today. VSS. Follows simple commands. Denies fevers, pain, sob, abdominal pain, chest pain. Pending insurance for placement. Objective Last 24 Hour Vital Signs Date Time Temp Pulse Resp B/P (MAP) Pulse Ox O2 Delivery O2 Flow Rate FiO2 12/10/19 12:06 97.8 76 18 99/59 (72) 99 12/10/19 09:00 Room Air 12/10/19 08:00 97.2 85 18 109/52 (71) 94 12/10/19 04:00 97.0 71 20 110/53 (72) 96 12/10/19 00:00 96.4 64 19 104/63 (77) 97 12/09/19 21:00 Room Air 12/09/19 20:00 97.7 75 20 105/61 (76) 94 9/26/20 16:00 98.4 79 18 108/59 (75) 99 Intake and Output 12/09/19 12/10/19 19:00 07:00 Intake Total 1080 ml 720 ml Output Total 800 ml 800 ml Balance 280 ml -80 ml Intake Oral 1080 ml 720 ml Output Urine Total 800 ml 800 ml # Bowel Movements 1 1 Height (Feet): 5 Height (Inches): 7.00 Weight (Pounds): 114 General Appearance: no apparent distress, alert, thin EENT: PERRL/EOMI Neck: non-tender, normal alignment, normal inspection Cardiovascular: normal rate, regular rhythm, no JVD Respiratory/Chest: lungs clear, normal breath sounds, no respiratory distress Abdomen: normal bowel sounds, non tender, soft Pelvis: other Genitourinary/Rectal: other - chronic donohue Extremities: other - bilateral LE paraplegia, bilateral UE motor strength/sensory 5/5 Edema: no edema noted Arm (L), no edema noted Arm (R), no edema noted Leg (L), no edema noted Leg (R), no edema noted Pedal (L), no edema noted Pedal (R), no edema noted 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 -Pt has IVC filter -D/w Heme, cont eliquis 2.5 BID -monitor for signs of bleeding #Septic Shock w/ /MSK/Pulm source ( Proteus, Actinobacter, GPC, fungal UTI, VRE and Sacral Ulcer, ?HCAP) - resolved #Bilateral LE Paraplegia #Sacral pressure ulcer, present on admit - Cont Local wound care and offloading - monitoring off abx #Stage IV Sacral Decubitus Ulcer Cleanse Sacral Wound and R Ischial wounds with Dakin's 0.125% gian. Loosely pack wounds with Hydrogel impregnated Kerlix. Apply Moisture Barrier Paste periwound. Cover with ABD Pads secure with Tegaderm drsg.Daily and prn. Apply Triad Paste to R Hip/R trochanteric areas.Cover with Optifoam drsg. Change every 7 days and prn. Apply Betadine to Medial R Knee. Cover with Optifoam drsg. Change every 7 days and prn. Apply Betadine to R and L Heels. Cover each Heel with Optifoam drsgs. Change every 7 days and prn. Cover Bony Prominences as needed with Optifoam drsgs. Reposition at least every 2 hours or as tolerated[address] Place Pillow between knees. Off-load heels with pillow. 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 -Evaluated by endocrine for adrenal insufficiency -AM cortisol normal however patient continues to have labile BP - Will continue Florinef, Salt Tab, and DDAVP - Continue Midodrine given labile BP #Anemia, acute on chronic - stable -s/p 2 units RBC 10/28 -Hematology following, no signs of overt bleeding - Continue Iron tab - Keep Hb >7 #Chronic Lower extremity pain Likely 2' contractures and prior accident - Gabapentin, Blair, Baclofen - pain management consulted, recs appreciated # Left colostomy # Chronic Indwelling donohue catheter I spent 32 minutes on this discharge encounter, with 17 minutes discussing and coordinating care with RN and CM. Time does not reflect time of patient seen. Justin Umana D.O Dec 10, 2019 13:32
--- NOTE | 2019-12-10 14:14 | Hematology/Onc Progress Note ---
Assessment/Plan Assessment/Plan # Acute left upstream popliteal vein deep venous thrombosis IVC filter in place --> given acute nature, will continue eliquis --> HOWEVER, if drop in h/h consider to hold eliquis as has ivc in place --> IVC Filter placed earlier # Anemia rule out gi bleed, as well as iron deficiency --> hgb 8.2-->7.2-->7.1->6.9-->8.6-->8.3-->9.3-->8.3-->9.3--.9.2->8.7->8-->8.7 --> anemia panel ordered--> cw acd --> occult blood pending-->neg --> gi eval prn --> transfuse as needed --> transfuse 2 units 10/27 --> po iron to continue # Coagulopathy with elev ptt/inr --> vitk and ffp as needed --> no bleeding noted at this time # Thrombocytosis likely reactive process --> plt 398-->608-->605 --> abx as needed # Sepsis due to uti, with Hypotension likely due to septic shock. Was diuresing heavily at 300 mL an hour. --> Continue on midodrine and dopamine. --> ABX vancomycin and meropenem and amikacin-->christel/vanc/difluc-->vanc/linezolid --> before requires pressors --> as per cards # Bradycardia. --> per cards # Paraplegia. # LLQ colostomy # Decubitus ulcers with sacral decubitus. # Dvt ppx eliquis # Dc planning placement Appreciate consultation and dw RN Subjective Constitutional: Denies: no symptoms, chills, fever, malaise, weakness, other HEENT: Denies: no symptoms, eye pain, blurred vision, tearing, double vision, ear pain, ear discharge, nose pain, nose congestion, throat pain, throat swelling, mouth pain, mouth swelling, other Cardiovascular: Denies: no symptoms, chest pain, edema, irregular heart rate, lightheadedness, palpitations, syncope, other Respiratory: Denies: no symptoms, cough, shortness of breath, SOB with excertion, SOB at rest, sputum, wheezing, other Genitourinary: Denies: no symptoms, burning, discharge, frequency, flank pain, hematuria, incontinence, pain, urgency, other Neurologic/Psychiatric: Denies: no symptoms, anxiety, depressed, emotional problems, headache, numbness, paresthesia, pre-existing deficit, seizure, tingling, tremors, weakness, other Endocrine: Denies: no symptoms, excessive sweating, flushing, intolerance to cold, intolerance to heat, increased hunger, increased thirst, increased urine, unexplained weight gain, unexplained weight loss, other Allergies: Coded Allergies: No Known Allergies (Unverified , 08/15/19) Subjective 10/27 labs again refused this am, yesterday was low, chandrakant rn in icu 10/28 remains in icu, for 2units prbc this am, chandrakant [place], no other events 10/29 s/p prbc, tolerated it well, no bleeding, on 1mcg levo, in icu 10/30 on abx, on levo and overnight no other events, chandrakant [place] rn liaison\ 10/31 wounds improved, labs noted, no bleeding, hgb lower, refusing care/wound care 11/01 labs noted, no bleeding, no hematochezia, no hemoptysis, cbc ordered 11/02 meds reviewed, labs noted, no bleeding, chandrakant [place], no major changes, hgb 8.3 11/04 labs have been noted, no bleeding, meds reviewed, no hemolysis 11/05 functional colostomy llq, no bleeding, cbc is pending for am 11/06 labs have been refused, hgb 8.3, no bleeding, wbc is higher in am 11/07 labs have initially been refused, no bleeding in am, wbc 13, on abx 11/08 labs reviewed, no bleeding, chandrakant [place], cbc is pending for am 11/09 is on vanc/difl/christel, no other changes, cbc and bmp are noted 11/11 has been asymptomatic, eating breakfast, hgb 9.3, on abx 11/12 labs are noted, no bleeding, chandrakant [place], no major changes, abx 11/13 is currently on christel and vanc, chandrakant [place], no major bleeding, on hep sq 11/14 labs are noted, does not want to be changed currently, cbc/bmp ordered 11/15 labs reviewed, c/o pain at picc line, no bleeding, meds noted, hgb 8.7 11/16 labs are noted, has been cleared, for dc planning to snf 11/[address], no bleeding, meds noted, continues to be on heparin sq 11/19 labs noted, no bleeding, comfortable, cbc is ntoed and bmp for am labs 11/[address], with dressing change as needed, meds noted, labs reviewed 11/[address], is on vanc/christel seen by id, no major changes 11/22 labs reviewed, with colostomy, donohue catheter, ct of a/p noted 11/23 meds noted, no bleeding, have ordered for eliquis and chandrakant Razo in am 11/25 labs noted, no bleeding, on blood thinner is on vanc/linezolid, hgb 8 11/26 remains on eliquis, no bleeding, meds noted, eating breakfast this am 11/27 low bp, ns given, meds are reviewed, no major hemolysis, remains on po iron 11/28 on eliquis, ferrous suldate, no bleeding, comfortable 12/01 labs are noted, on anticaog, also hgb 8, no bleeding, comfortable 12/02 is without events, no bleeding, labs reviewed, no bleeding, meds noted 12/03 initially refused labs but now feeling better, cbc pending for am 12/04 labs noted, no bleeding, meds noted as well 12/05 labs noted, no bleeding, meds reviewed, hgb 8.7, colostomy in place 12/06 labs noted, no bleeding, donohue reinserted as per potential dc 12/07 labs are noted, no major changes, no bleeding, meds reviewed 12/09 labs reviewed, no bleeding, chandrakant rn, no major changes, no hemolysis Objective Objective Current Medications Medications (Trade) Dose Ordered Sig/Mya Route PRN Reason Start Time Stop Time Status Last Admin Dose Admin Acetaminophen/ Hydrocodone Bitart ([place] 5/325) 1 tab Q6H PRN ORAL Severe Pain (Pain Scale 7-10) 12/10/19 09:00 12/17/19 08:59 Apixaban (Eliquis) 2.5 mg BID ORAL 11/24/19 09:00 02/22/20 08:59 12/10/19 08:08 Bisacodyl (Dulcolax) 10 mg DAILYPRN PRN RECTAL Constipation 11/24/19 07:45 02/22/20 07:44 Chlorhexidine Gluconate (Simran-Hex 2%) 1 applic DAILY@2000 TOPIC 11/13/19 20:00 02/11/20 19:59 12/09/19 20:24 Desmopressin Acetate (Ddavp) 1 spray DAILY NASAL 11/14/19 09:00 02/07/20 17:59 12/10/19 08:08 Dextrose (Dextrose 50%) 25 ml Q30M PRN IV Hypoglycemia 11/05/19 13:30 01/21/20 17:29 Dextrose (Dextrose 50%) 50 ml Q30M PRN IV Hypoglycemia 11/05/19 13:30 01/21/20 17:29 Famotidine (Pepcid) 20 mg DAILY ORAL 11/06/19 09:00 01/28/20 09:29 12/10/19 08:07 Ferrous Sulfate (Feosol) 325 mg DAILY ORAL 11/06/19 09:00 01/22/20 08:59 12/10/19 08:07 Fludrocortisone Acetate (Florinef) 0.1 mg DAILY ORAL 11/15/19 09:00 12/15/19 08:59 12/10/19 08:07 Magnesium Hydroxide (Mom) 30 ml HSPRN PRN ORAL Constipation 11/13/19 11:15 12/13/19 11:14 Midodrine (Pro-Amatine) 10 mg EVERY 8 HOURS ORAL 11/05/19 14:00 01/21/20 17:59 12/10/19 14:06 Naloxone HCl (Narcan) 0.2 mg Q2M PRN IVP RESPRITORY DEPRESSION RR<8 11/24/19 10:15 02/22/20 10:14 Senna/Docusate Sodium (Haley-Colace) 1 tab TWICE A DAY ORAL 11/24/19 09:00 12/24/19 08:59 12/10/19 08:07 Sodium Hypochlorite (Dakin's Quarter Strength) 1 applic DAILY TOPIC 12/01/19 09:00 12/31/19 08:59 12/10/19 08:08 Zinc Sulfate (Zinc Sulfate) 220 mg DAILY ORAL 11/06/19 09:00 01/22/20 08:59 12/10/19 08:07 Last 24 Hour Vital Signs Date Time Temp Pulse Resp B/P (MAP) Pulse Ox O2 Delivery O2 Flow Rate FiO2 12/10/19 12:06 97.8 76 18 99/59 (72) 99 12/10/19 09:00 Room Air 12/10/19 08:00 97.2 85 18 109/52 (71) 94 12/10/19 04:00 97.0 71 20 110/53 (72) 96 12/10/19 00:00 96.4 64 19 104/63 (77) 97 12/09/19 21:00 Room Air 12/09/19 20:00 97.7 75 20 105/61 (76) 94 12/09/19 16:00 98.4 79 18 108/59 (75) 99 12/09/19 12:00 97.8 76 21 108/64 (79) 98 12/09/19 09:00 Room Air 12/09/19 08:00 98.4 91 18 138/92 (107) 98 12/09/19 06:00 97.6 86 19 101/53 (69) 96 12/09/19 04:00 98.0 86 17 101/53 (69) 96 12/09/19 00:00 98.1 82 20 112/66 (81) 95 12/08/19 21:00 Room Air 12/08/19 20:00 97.9 88 20 109/60 (76) 96 12/08/19 16:00 98.1 70 18 107/61 (76) 99 Intake and Output 12/09/19 12/10/19 19:00 07:00 Intake Total 1080 ml 720 ml Output Total 800 ml 800 ml Balance 280 ml -80 ml Intake Oral 1080 ml 720 ml Output Urine Total 800 ml 800 ml # Bowel Movements 1 1 Height (Feet): 5 Height (Inches): 7.00 Weight (Pounds): 114 Objective Physical Exam General Appearance: lethargic Lines, tubes and drains: peripheral, central line HEENT: normocephalic Neck: non-tender, normal alignment Respiratory/Chest: lungs clear Cardiovascular/Chest: normal peripheral pulses, normal rate, regular rhythm Abdomen: normal bowel sounds, non tender ++ llq colostomy : ++Martínez Geiger MD Dec 10, 2019 14:14
[2019-12-10 15:53] VITALS: BP 123/61
[2019-12-10 20:00] VITALS: BP 109/55
[2019-12-10] MEDS: Dyna-Hex 2% Top Sol 2oz TOPIC SCH (20:31)
[2019-12-11 00:27] VITALS: BP 102/60
[2019-12-11 04:17] VITALS: BP 115/56
[2019-12-11] MEDS: Midodrine 10mg tab ORAL SCH ×3 (05:03→21:19)
[2019-12-11] MEDS: HYDROcodone/Acetamin 5/325 tab ORAL PRN ×3 (06:29→22:00)
[2019-12-11 08:00] VITALS: BP 110/56
[2019-12-11] MEDS: Desmopressin Nasal 5ml NASAL SCH (08:36)
[2019-12-11] MEDS: Eliquis 2.5mg tablet ORAL SCH ×2 (08:37→18:32)
[2019-12-11] MEDS: Zinc Sulfate 220mg ORAL SCH (08:37)
[2019-12-11] MEDS: Docusate Sod/Senna tab ORAL SCH ×2 (08:37→18:32)
--- NOTE | 2019-12-11 10:28 | Cardiac Electrophysiology PN ---
Assessment/Plan Assessment/Plan 1. S/P Septic shock. Resolved. Now on Midodrine and off antibiotic 2. Bradycardia. Resolved. 3. Paraplegia. 4. Urinary tract infection, 5. Decubitus ulcers with sacral decubitus. 6. S/P Ileostomy/ 7. Polyuria, DI. On Salt tablets 8. Acute left upstream popliteal vein deep venous thrombosis IVC filter in place --> given acute nature, will continue eliquis, if drop in h/h, consider to hold eliquis as has ivc in place FU [facility] [place] [facility]LURE RN Going to [facility] Subjective Subjective Alert in NAD. Awaiting placement . No events Objective Last 24 Hour Vital Signs Date Time Temp Pulse Resp B/P (MAP) Pulse Ox O2 Delivery O2 Flow Rate FiO2 12/11/19 09:37 Room Air 12/11/19 08:00 98.1 59 16 110/56 (74) 98 12/11/19 07:00 97.8 12/11/19 04:17 97.8 71 16 115/56 (75) 98 12/11/19 00:27 98.2 76 18 102/60 (74) 99 12/10/19 22:26 98.6 12/10/19 21:00 Room Air 12/10/19 20:00 98.6 70 20 109/55 (73) 99 12/10/19 16:21 97.9 12/10/19 15:53 97.9 70 19 123/61 (81) 98 12/10/19 12:06 97.8 76 18 99/59 (72) 99 Intake and Output 12/10/19 12/11/19 18:59 06:59 Intake Total 1000 ml Output Total 1100 ml Balance 1000 ml -1100 ml Intake Oral 1000 ml Output Urine Total 1100 ml # Voids 1 Objective HEAD AND NECK: No JVD. LUNGS: Coarse rhonchi. CARDIOVASCULAR: Regular S1 and S2 with no gallop. ABDOMEN: Soft. S/P Ileostomy EXTREMITIES: No pitting edema Carloz Estes MD Dec 11, 2019 10:28
[2019-12-11 12:00] VITALS: BP 110/56
--- NOTE | 2019-12-11 13:23 | Pulmonology Progress Note ---
Subjective ROS Limited/Unobtainable: Yes Constitutional: Denies: fever Gastrointestinal/Abdominal: Denies: nausea, vomiting, diarrhea Psychiatric: Denies: depression Skin: Denies: rash Musculoskeletal: Denies: pain Allergies: Coded Allergies: No Known Allergies (Unverified , 08/15/19) All Systems: reviewed and negative except above Objective Last 24 Hour Vital Signs Date Time Temp Pulse Resp B/P (MAP) Pulse Ox O2 Delivery O2 Flow Rate FiO2 12/11/19 09:37 Room Air 12/11/19 08:00 98.1 59 16 110/56 (74) 98 12/11/19 07:00 97.8 12/11/19 04:17 97.8 71 16 115/56 (75) 98 12/11/19 00:27 98.2 76 18 102/60 (74) 99 12/10/19 22:26 98.6 12/10/19 21:00 Room Air 12/10/19 20:00 98.6 70 20 109/55 (73) 99 12/10/19 16:21 97.9 12/10/19 15:53 97.9 70 19 123/61 (81) 98 Intake and Output 12/10/19 12/11/19 19:00 07:00 Intake Total 1000 ml Output Total 1100 ml Balance 1000 ml -1100 ml Intake Oral 1000 ml Output Urine Total 1100 ml # Voids 1 General Appearance: no acute distress HEENT: normocephalic Respiratory: chest wall non-tender, lungs clear, normal breath sounds, no respiratory distress Cardiovascular: normal peripheral pulses, regular rhythm Abdomen: normal bowel sounds, soft, non tender Extremities: no cyanosis, no clubbing, no edema Current Medications Medications (Trade) Dose Ordered Sig/Mya Route PRN Reason Start Time Stop Time Status Last Admin Dose Admin Acetaminophen/ Hydrocodone Bitart ([place] 5/325) 1 tab Q6H PRN ORAL Severe Pain (Pain Scale 7-10) 12/10/19 09:00 12/17/19 08:59 12/11/19 06:29 Apixaban (Eliquis) 2.5 mg BID ORAL 11/24/19 09:00 02/22/20 08:59 12/11/19 08:37 Bisacodyl (Dulcolax) 10 mg DAILYPRN PRN RECTAL Constipation 11/24/19 07:45 02/22/20 07:44 Chlorhexidine Gluconate (Simran-Hex 2%) 1 applic DAILY@1999 TOPIC 11/13/19 20:00 02/11/20 19:59 12/10/19 20:31 Desmopressin Acetate (Ddavp) 1 spray DAILY NASAL 11/14/19 09:00 02/07/20 17:59 12/11/19 08:36 Dextrose (Dextrose 50%) 25 ml Q30M PRN IV Hypoglycemia 11/05/19 13:30 01/21/20 17:29 Dextrose (Dextrose 50%) 50 ml Q30M PRN IV Hypoglycemia 11/05/19 13:30 01/21/20 17:29 Famotidine (Pepcid) 20 mg DAILY ORAL 11/06/19 09:00 01/28/20 09:29 12/11/19 08:37 Ferrous Sulfate (Feosol) 325 mg DAILY ORAL 11/06/19 09:00 01/22/20 08:59 12/11/19 08:37 Fludrocortisone Acetate (Florinef) 0.1 mg DAILY ORAL 11/15/19 09:00 12/15/19 08:59 12/11/19 08:37 Magnesium Hydroxide (Mom) 30 ml HSPRN PRN ORAL Constipation 11/13/19 11:15 12/13/19 11:14 Midodrine (Pro-Amatine) 10 mg EVERY 8 HOURS ORAL 11/05/19 14:00 01/21/20 17:59 12/11/19 05:03 Naloxone HCl (Narcan) 0.2 mg Q2M PRN IVP RESPRITORY DEPRESSION RR<8 11/24/19 10:15 02/22/20 10:14 Senna/Docusate Sodium (Haley-Colace) 1 tab TWICE A DAY ORAL 11/24/19 09:00 12/24/19 08:59 12/11/19 08:37 Sodium Hypochlorite (Dakin's Quarter Strength) 1 applic DAILY TOPIC 12/01/19 09:00 12/31/19 08:59 12/10/19 08:08 Zinc Sulfate (Zinc Sulfate) 220 mg DAILY ORAL 11/06/19 09:00 01/22/20 08:59 12/11/19 08:37 Assessment/Plan Assessment/Plan Pulmonary Progress Note Subjective ROS Limited/Unobtainable: No Constitutional: Denies: fever Gastrointestinal/Abdominal: Denies: nausea, vomiting, diarrhea Psychiatric: Denies: depression Skin: Denies: rash Musculoskeletal: Denies: pain Allergies: Coded Allergies: No Known Allergies (Unverified , 08/15/19) All Systems: reviewed and negative except above Subjective care noted and reviewed changes noted awaiting SNF tf Objective Vital Signs noted General Appearance: no acute distress HEENT: normocephalic Respiratory: chest wall non-tender, lungs clear, normal breath sounds, no re spiratory distress Cardiovascular: normal peripheral pulses, regular rhythm Abdomen: normal bowel sounds, soft, non tender Extremities: no cyanosis, no clubbing, no edema Assessment/Plan IMPRESSION: 1. Septic shock. resolved 2. Complicated UTI 3. Paraplegia. 4. Sacral decubitus. 5. care home resident. 6. Hypoxemia 7. Pneumonia treated DISCUSSION: monitor clinically oxygen as needed; currently off monitor imaging as needed ID to clear dc planning impression, plan, and exam edited and reviewed in detail care discussed with RN Anthony Edwards MD Dec 11, 2019 13:23
--- NOTE | 2019-12-11 13:51 | General Progress Note ---
Subjective Date patient seen: Dec 11, 2019 Constitutional: Denies: no symptoms, chills, diaphoresis, fever, malaise, weakness, other HEENT: Denies: no symptoms, eye pain, blurred vision, tearing, double vision, ear pain, ear discharge, nose pain, nose congestion, throat pain, throat swelling, mouth pain, mouth swelling, other Cardiovascular: Denies: no symptoms, chest pain, edema, irregular heart rate, lightheadedness, palpitations, syncope, other Respiratory: Denies: no symptoms, cough, orthopnea, shortness of breath, SOB with excertion, SOB at rest, sputum, stridor, wheezing, other Gastrointestinal/Abdominal: Denies: no symptoms, abdomen distended, abdominal pain, black stools, tarry stools, blood in stool, constipated, diarrhea, difficulty swallowing, nausea, poor appetite, poor fluid intake, rectal bleeding, vomiting, other Genitourinary: Denies: no symptoms, burning, discharge, frequency, flank pain, hematuria, incontinence, pain, urgency, other Neurologic/Psychiatric: Denies: no symptoms, anxiety, depressed, emotional problems, headache, numbness, paresthesia, pre-existing deficit, seizure, tingling, tremors, weakness, other Endocrine: Denies: no symptoms, excessive sweating, flushing, intolerance to cold, intolerance to heat, increased hunger, increased thirst, increased urine, unexplained weight gain, unexplained weight loss, other Hematologic/Lymphatic: Denies: no symptoms, anemia, easy bleeding, easy bruising, other Allergies: Coded Allergies: No Known Allergies (Unverified , 08/15/19) Subjective no acute events overnight. VSS. Follows simple commands. Pending insurance for placement. Objective Last 24 Hour Vital Signs Date Time Temp Pulse Resp B/P (MAP) Pulse Ox O2 Delivery O2 Flow Rate FiO2 12/11/19 09:37 Room Air 12/11/19 08:00 98.1 59 16 110/56 (74) 98 12/11/19 07:00 97.8 12/11/19 04:17 97.8 71 16 115/56 (75) 98 12/11/19 00:27 98.2 76 18 102/60 (74) 99 12/10/19 22:26 98.6 12/10/19 21:00 Room Air 12/10/19 20:00 98.6 70 20 109/55 (73) 99 12/10/19 16:21 97.9 12/10/19 15:53 97.9 70 19 123/61 (81) 98 Intake and Output 12/10/19 12/11/19 19:00 07:00 Intake Total 1000 ml Output Total 1100 ml Balance 1000 ml -1100 ml Intake Oral 1000 ml Output Urine Total 1100 ml # Voids 1 Height (Feet): 5 Height (Inches): 7.00 Weight (Pounds): 114 General Appearance: no apparent distress, alert EENT: PERRL/EOMI, normal ENT inspection Neck: normal alignment, normal inspection Cardiovascular: normal rate, regular rhythm Respiratory/Chest: lungs clear, normal breath sounds, no respiratory distress Abdomen: normal bowel sounds, non tender, soft, other - left colosotmy bag Pelvis: other - chronic donohue Extremities: other - bilateral LE paraplegia, UE 5/5 strength Edema: no edema noted Arm (L), no edema noted Arm (R), no edema noted Leg (L), no edema noted Leg (R), no edema noted Pedal (L), no edema noted Pedal (R), no edema noted 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 -Pt has IVC filter -D/w Heme, cont eliquis 2.5 BID -monitor for signs of bleeding #Septic Shock w/ /MSK/Pulm source ( Proteus, Actinobacter, GPC, fungal UTI, VRE and Sacral Ulcer, ?HCAP) - resolved #Bilateral LE Paraplegia #Sacral pressure ulcer, present on admit - Cont Local wound care and offloading - monitoring off abx #Stage IV Sacral Decubitus Ulcer Cleanse Sacral Wound and R Ischial wounds with Dakin's 0.125% gian. Loosely pack wounds with Hydrogel impregnated Kerlix. Apply Moisture Barrier Paste periwound. Cover with ABD Pads secure with Tegaderm drsg.Daily and prn. Apply Triad Paste to R Hip/R trochanteric areas.Cover with Optifoam drsg. Change every 7 days and prn. Apply Betadine to Medial R Knee. Cover with Optifoam drsg. Change every 7 days and prn. Apply Betadine to R and L Heels. Cover each Heel with Optifoam drsgs. Change every 7 days and prn. Cover Bony Prominences as needed with Optifoam drsgs. Reposition at least every 2 [address] tolerated[address] Pillow between knees. Off-load heels with pillow. 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 -Evaluated by endocrine for adrenal insufficiency -AM cortisol normal however patient continues to have labile BP - Will continue Florinef, Salt Tab, and DDAVP - Continue Midodrine given labile BP #Anemia, acute on chronic - stable -s/p 2 units RBC 10/28 -Hematology following, no signs of overt bleeding - Continue Iron tab - Keep Hb >7 #Chronic Lower extremity pain Likely 2' contractures and prior accident - Gabapentin, [place], Baclofen - pain management consulted, recs appreciated # Left colostomy # Chronic Indwelling donohue catheter DVT: eliquis Dispo: pending insurance for SNF placement I spent 31 minutes on this discharge encounter, with 17 minutes discussing and coordinating care with RN and CM. Time does not reflect time of patient seen. Justin Umana D.O Dec 11, 2019 13:51
[2019-12-11] MEDS: Dakin's 0.125% Soln (Quarter Strength) 16oz TOPIC SCH (18:34)
[2019-12-11 20:18] VITALS: BP 94/59
[2019-12-11] MEDS: Dyna-Hex 2% Top Sol 2oz TOPIC SCH (20:30)
--- NOTE | 2019-12-11 21:28 | Surgery Progress Note ---
Surgery Progress Note Subjective Symptoms: improved Objective Last 24 Hour Vital Signs Date Time Temp Pulse Resp B/P (MAP) Pulse Ox O2 Delivery O2 Flow Rate FiO2 12/11/19 20:24 Room Air 12/11/19 20:18 97.9 64 18 94/59 (71) 98 12/11/19 12:00 97.3 63 16 110/56 (74) 98 12/11/19 09:37 Room Air 12/11/19 08:00 98.1 59 16 110/56 (74) 98 12/11/19 07:00 97.8 12/11/19 04:17 97.8 71 16 115/56 (75) 98 12/11/19 00:27 98.2 76 18 102/60 (74) 99 12/10/19 22:26 98.6 I&O Intake and Output 12/10/19 12/11/19 19:00 07:00 Intake Total 1000 ml Output Total 1100 ml Balance 1000 ml -1100 ml Intake Oral 1000 ml Output Urine Total 1100 ml # Voids 1 Dressing: saturated Cardiovascular: RSR Respiratory: decreased breath sounds Abdomen: non-tender, present bowel sounds Extremities: no tenderness, no cyanosis Plan Problems: (1) Abdominal distension Assessment & Plan: abd distention soft non tender ostomy viable and reduced KUB ordered pending results improved comfortable no complaints okay for diet s tolerated d/c planning much improved There is an inferior vena cava filter in place. Bowel gas pattern is unremarkable. Considerable stool is seen in the transverse and distal colon. There is extensive pelvic deformity, with loss of the left femoral head, chronic dislocation of the left femur, and extensive pelvic deformity, particularly on the left. Adi project over the upper pelvis Impression: Possible constipation. pending placement Nonobstructed bowel gas pattern. Moderate fecal retention of the ascending colon and sigmoid colon. The degree of stool burden has increased from October 25, 2019. IVC filter, incidentally noted. Partial subluxation of the right hip. Osteotomy of the proximal left femur with deformity of the bilateral pubic rami and left acetabulum, unchanged. 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 [place] Shaped, Full Thickness Sacral Pressure Injury which extends into L ischium. (L)15.4cm x (W)18cm x (D)2.4cm, Undermining clockwise 10-2 by 7.7cm @11o'clock. Base of wound is moist,pink with scattered slough at base of wound. Bone is palpable at the Base. No odor or exudate noted. Scattered partial thickness wounds and Serous filled blisters noted to R trochanteric /R Hip areas. Historical scar noted to L groin, L Hip L Buttocks. Bony protrusion noted at L Hip. Full thickness Pressure Injury R Ischium(L)5.4cm x(W)6.9cm x (D)1.8cm,Undermining clockwise 1-4 by 2.7cm @2o'clock, Tunneling@7o'clock 2.9cm. Base of wound is moist pink with scattered slough. Scattered slough noted along borders. NO odor or exudate noted. Stable dry eschar noted to medial R knee 0.7cm x (W)0.4cm. Periwound is erythematous and indurated. No elevation in skin temp noted. L heel has shaved appearance secondary to Hx of Pressure Injuries. Base of heel is pale pink. Bone is palpable. Small area of slough noted within compromised area(L)0.6cm x (W)0.8cm. L Heel Also has shaved appearance with hypertrophic scarring. Base of compromised area is pale pink, Bone is palpable, with scattered loose, dry and scaly skin. Patient's wound remains very large extensive and requires significant amount of care. Continued care of the wounds have been provided though patient is having continence through the anus at this time again despite diversion. Wounds remain saturated times and great nursing care is being provided unfortunately inevitable decline is still significantly potential given his overall condition. Tx.Plan: Cleanse Sacral Wound and R Ischial wounds with Dakin's 0.125% gian. Loosely pack wounds with Hydrogel impregnated Kerlix. Apply Moisture Barrier Paste periwound. Cover with ABD Pads secure with Tegaderm drsg.Daily and prn. Apply Triad Paste to R Hip/R trochanteric areas.Cover with Optifoam drsg. Change every 7 days and prn. Apply Betadine to Medial R Knee. Cover with Optifoam drsg. Change every 7 days and prn. Apply Betadine to R and L Heels. Cover each Heel with Optifoam drsgs. Change every 7 days and prn. Cover Bony Prominences as needed with Optifoam drsgs. Reposition at least every [address] Pillow between knees. Off-load heels with pillow. APM/SUMI Mattress overlay DAILY ESTIMATED NEEDS: Needs based on Advanced wounds, wt loss/ 40.18kg 35-40 kcals/kg 5614-5696 total kcals 1.5-2.0 g protein/kg 60-80 g total protein 25-35ml/kcal mL/kg 0757-2931 total fluid mLs NUTRITION DIAGNOSIS: Increased kcal/prot/micronutrients needs R/T wound healing and underweight status as evidenced by pt admitted w/ multiple advanced wounds, refer to WC jair, pt now w/ further 3% unfavorable wt loss, currently BMI underweight per guidelines, @62% of [place] Body Weight. 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 There is distention of the rectum with feces, rectal diameter 70 mm. There is some thickening of the rectal wall. The appendix is not definitely visualized, but no findings to suggest acute appendicitis are evident. There is considerable stool throughout the colon. There appears to be rectal incontinence of stool despite the diverting colostomy. Cornelius Salgado Dec 11, 2019 21:28
[2019-12-12] VITALS: BP 89/52
[2019-12-12 04:00] VITALS: BP 107/57
[2019-12-12] MEDS: Midodrine 10mg tab ORAL SCH ×2 (05:10→14:40)
[2019-12-12] MEDS: HYDROcodone/Acetamin 5/325 tab ORAL PRN ×2 (05:47→11:48)
--- NOTE | 2019-12-12 06:56 | Hematology/Onc Progress Note ---
Assessment/Plan Assessment/Plan # Acute left upstream popliteal vein deep venous thrombosis IVC filter in place --> given acute nature, will continue eliquis --> HOWEVER, if drop in h/h consider to hold eliquis as has ivc in place --> IVC Filter placed earlier # Anemia rule out gi bleed, as well as iron deficiency --> hgb 8.2-->7.2-->7.1->6.9-->8.6-->8.3-->9.3-->8.3-->9.3--.9.2->8.7->8-->8.7 --> anemia panel ordered--> cw acd --> occult blood pending-->neg --> gi eval prn --> transfuse as needed --> transfuse 2 units 10/27 --> po iron to continue # Coagulopathy with elev ptt/inr --> vitk and ffp as needed --> no bleeding noted at this time # Thrombocytosis likely reactive process --> plt 398-->608-->605 --> abx as needed # Sepsis due to uti, with Hypotension likely due to septic shock. Was diuresing heavily at 300 mL an hour. --> Continue on midodrine and dopamine. --> ABX vancomycin and meropenem and amikacin-->christel/vanc/difluc-->vanc/linezolid --> before requires pressors --> as per cards # Bradycardia. --> per cards # Paraplegia. # LLQ colostomy # Decubitus ulcers with sacral decubitus. # Dvt ppx eliquis # Dc planning placement Appreciate consultation and chandrakant RN Subjective Constitutional: Denies: no symptoms, chills, fever, malaise, weakness, other Cardiovascular: Denies: no symptoms, chest pain, edema, irregular heart rate, lightheadedness, palpitations, syncope, other Respiratory: Denies: no symptoms, cough, shortness of breath, SOB with excertion, SOB at rest, sputum, wheezing, other Gastrointestinal/Abdominal: Denies: no symptoms, abdomen distended, abdominal pain, black stools, tarry stools, blood in stool, constipated, diarrhea, difficulty swallowing, nausea, poor appetite, poor fluid intake, rectal bleeding, vomiting, other Endocrine: Denies: no symptoms, excessive sweating, flushing, intolerance to cold, intolerance to heat, increased hunger, increased thirst, increased urine, unexplained weight gain, unexplained weight loss, other Hematologic/Lymphatic: Denies: no symptoms, anemia, easy bleeding, easy bruising, adenopathy, other Allergies: Coded Allergies: No Known Allergies (Unverified , 08/15/19) Subjective 10/27 labs again refused this am, yesterday was low, chandrakant england in icu 10/28 remains in icu, for 2units prbc this am, chandrakant rn, no other events 10/29 s/p prbc, tolerated it well, no bleeding, on 1mcg levo, in icu 10/30 on abx, on levo and overnight no other events, chandrakant englandrn pacu\ 10/31 wounds improved, labs noted, no bleeding, hgb lower, refusing care/wound care 11/01 labs noted, no bleeding, no hematochezia, no hemoptysis, cbc ordered 11/02 meds reviewed, labs noted, no bleeding, chandrakant eng[place], no major changes, hgb 8.3 11/04 labs have been noted, no bleeding, meds reviewed, no hemolysis 11/05 functional colostomy llq, no bleeding, cbc is pending for am 11/06 labs have been refused, hgb 8.3, no bleeding, wbc is higher in am 11/07 labs have initially been refused, no bleeding in am, wbc 13, on abx 11/08 labs reviewed, no bleeding, chandrakant england, cbc is pending for am 11/09 is on vanc/difl/christel, no other changes, cbc and bmp are noted 11/11 has been asymptomatic, eating breakfast, hgb 9.3, on abx 11/12 labs are noted, no bleeding, chandrakant england, no major changes, abx 11/13 is currently on christel and vanc, chandrakant england, no major bleeding, on hep sq 11/14 labs are noted, does not want to be changed currently, cbc/bmp ordered 11/15 labs reviewed, c/o pain at picc line, no bleeding, meds noted, hgb 8.7 11/16 labs are noted, has been cleared, for dc planning to snf 11/[address], no bleeding, meds noted, continues to be on heparin sq 11/19 labs noted, no bleeding, comfortable, cbc is ntoed and bmp for am labs 11/[address], with dressing change as needed, meds noted, labs reviewed 11/[address], is on vanc/christel seen by id, no major changes 11/22 labs reviewed, with colostomy, donohue catheter, ct of a/p noted 11/23 meds noted, no bleeding, have ordered for eliquis and chandrakant Razo in am 11/25 labs noted, no bleeding, on blood thinner is on vanc/linezolid, hgb 8 11/26 remains on eliquis, no bleeding, meds noted, eating breakfast this am 11/27 low bp, ns given, meds are reviewed, no major hemolysis, remains on po iron 11/28 on eliquis, ferrous suldate, no bleeding, comfortable 12/01 labs are noted, on anticaog, also hgb 8, no bleeding, comfortable 12/02 is without events, no bleeding, labs reviewed, no bleeding, meds noted 12/03 initially refused labs but now feeling better, cbc pending for am 12/04 labs noted, no bleeding, meds noted as well 12/05 labs noted, no bleeding, meds reviewed, hgb 8.7, colostomy in place 12/06 labs noted, no bleeding, donohue reinserted as per potential dc 12/07 labs are noted, no major changes, no bleeding, meds reviewed 12/09 labs reviewed, no bleeding, chandrakant rn, no major changes, no hemolysis 12/11 sleeping, no events, with donohue, labs reviewed Objective Objective Current Medications Medications (Trade) Dose Ordered Sig/Mya Route PRN Reason Start Time Stop Time Status Last Admin Dose Admin Acetaminophen/ Hydrocodone Bitart ([place] 5/325) 1 tab Q6H PRN ORAL Severe Pain (Pain Scale 7-10) 12/10/19 09:00 12/17/19 08:59 12/12/19 05:47 Apixaban (Eliquis) 2.5 mg BID ORAL 11/24/19 09:00 02/22/20 08:59 12/11/19 18:32 Bisacodyl (Dulcolax) 10 mg DAILYPRN PRN RECTAL Constipation 11/24/19 07:45 02/22/20 07:44 Chlorhexidine Gluconate (Simran-Hex 2%) 1 applic DAILY@1999 TOPIC 11/13/19 20:00 02/11/20 19:59 12/11/19 20:30 Desmopressin Acetate (Ddavp) 1 spray DAILY NASAL 11/14/19 09:00 02/07/20 17:59 12/11/19 08:36 Dextrose (Dextrose 50%) 25 ml Q30M PRN IV Hypoglycemia 11/05/19 13:30 01/21/20 17:29 Dextrose (Dextrose 50%) 50 ml Q30M PRN IV Hypoglycemia 11/05/19 13:30 01/21/20 17:29 Famotidine (Pepcid) 20 mg DAILY ORAL 11/06/19 09:00 01/28/20 09:29 12/11/19 08:37 Ferrous Sulfate (Feosol) 325 mg DAILY ORAL 11/06/19 09:00 01/22/20 08:59 12/11/19 08:37 Fludrocortisone Acetate (Florinef) 0.1 mg DAILY ORAL 11/15/19 09:00 12/15/19 08:59 12/11/19 08:37 Magnesium Hydroxide (Mom) 30 ml HSPRN PRN ORAL Constipation 11/13/19 11:15 12/13/19 11:14 Midodrine (Pro-Amatine) 10 mg EVERY 8 HOURS ORAL 11/05/19 14:00 01/21/20 17:59 12/12/19 05:10 Naloxone HCl (Narcan) 0.2 mg Q2M PRN IVP RESPRITORY DEPRESSION RR<8 11/24/19 10:15 02/22/20 10:14 Senna/Docusate Sodium (Haley-Colace) 1 tab TWICE A DAY ORAL 11/24/19 09:00 12/24/19 08:59 12/11/19 18:32 Sodium Hypochlorite (Dakin's Quarter Strength) 1 applic DAILY TOPIC 12/01/19 09:00 12/31/19 08:59 12/11/19 18:34 Zinc Sulfate (Zinc Sulfate) 220 mg DAILY ORAL 11/06/19 09:00 01/22/20 08:59 12/11/19 08:37 Last 24 Hour Vital Signs Date Time Temp Pulse Resp B/P (MAP) Pulse Ox O2 Delivery O2 Flow Rate FiO2 12/12/19 06:17 97.7 12/12/19 04:00 97.7 73 20 107/57 (74) 97 12/12/19 00:00 97.9 63 18 89/52 (64) 98 12/11/19 22:30 97.9 12/11/19 20:24 Room Air 12/11/19 20:18 97.9 64 18 94/59 (71) 98 12/11/19 12:00 97.3 63 16 110/56 (74) 98 12/11/19 09:37 Room Air 12/11/19 08:00 98.1 59 16 110/56 (74) 98 12/11/19 07:00 97.8 12/11/19 04:17 97.8 71 16 115/56 (75) 98 12/11/19 00:27 98.2 76 18 102/60 (74) 99 12/10/19 22:26 98.6 12/10/19 21:00 Room Air 12/10/19 20:00 98.6 70 20 109/55 (73) 99 12/10/19 16:21 97.9 12/10/19 15:53 97.9 70 19 123/61 (81) 98 12/10/19 12:06 97.8 76 18 99/59 (72) 99 12/10/19 09:00 Room Air 12/10/19 08:00 97.2 85 18 109/52 (71) 94 Intake and Output 12/11/19 12/12/19 18:59 06:59 Intake Total 480 ml 360 ml Output Total 800 ml 600 ml Balance -320 ml -240 ml Intake Oral 480 ml Other 360 ml Output Urine Total 800 ml 600 ml # Voids 2 Height (Feet): 5 Height (Inches): 7.00 Weight (Pounds): 114 Objective Physical Exam General Appearance: lethargic Lines, tubes and drains: peripheral, central line HEENT: normocephalic Neck: non-tender, normal alignment Respiratory/Chest: lungs clear Cardiovascular/Chest: normal peripheral pulses, normal rate, regular rhythm Abdomen: normal bowel sounds, non tender ++ llq colostomy : ++Martínez Geiger MD Dec 12, 2019 06:56
[2019-12-12 08:00] VITALS: BP 91/66
--- NOTE | 2019-12-12 08:06 | General Progress Note ---
Subjective Date patient seen: Dec 12, 2019 Time patient seen: 07:00 - am Allergies: Coded Allergies: No Known Allergies (Unverified , 08/15/19) Subjective REVIEW OF SYSTEMS: Denies rash, fever, chills, sweating, dizziness, drowsiness, blurred vision, sore throat, or change in weight. No shortness of breath or chest pain. No nausea, vomiting, diarrhea, blood in stool or urine. HISTORY OF PRESENT ILLNESS: This is a 59-year-old male who has been seen on the Med/Surg floor of [facility]. Patient in bed denies pain at this time. Using the [place] as needed. No new complaints. Objective Last 24 Hour Vital Signs Date Time Temp Pulse Resp B/P (MAP) Pulse Ox O2 Delivery O2 Flow Rate FiO2 12/12/19 06:17 97.7 12/12/19 04:00 97.7 73 20 107/57 (74) 97 12/12/19 00:00 97.9 63 18 89/52 (64) 98 12/11/19 22:30 97.9 12/11/19 20:24 Room Air 12/11/19 20:18 97.9 64 18 94/59 (71) 98 12/11/19 12:00 97.3 63 16 110/56 (74) 98 12/11/19 09:37 Room Air Intake and Output 12/11/19 12/12/19 18:59 06:59 Intake Total 480 ml 360 ml Output Total 800 ml 600 ml Balance -320 ml -240 ml Intake Oral 480 ml Other 360 ml Output Urine Total 800 ml 600 ml # Voids 2 Height (Feet): 5 Height (Inches): 7.00 Weight (Pounds): 114 Objective PHYSICAL EXAMINATION: GENERAL: Alert, awake, and oriented. LUNGS: Decreased breath sounds bilaterally. HEART: S1, S2 regular. ABDOMEN: Colostomy bag noted. EXTREMITIES: Upper and lower extremity range of motion is decreased due to the patient's condition. Contracture is noted. Sensory is reduced. Reflexes are not obtainable. No adenopathy. Assessment/Plan Assessment/Plan: (1) Sacral decubitus ulcer (2) Paraplegia (3) Neuropathic pain Patient to be continued on [place] and Neurontin D/w Dr. Celaya and he concurred. Danny Raymundo Dec 12, 2019 08:06
--- NOTE | 2019-12-12 08:15 | Pulmonology Progress Note ---
Subjective ROS Limited/Unobtainable: Yes Constitutional: Denies: fever Gastrointestinal/Abdominal: Denies: nausea, vomiting, diarrhea Psychiatric: Denies: depression Skin: Denies: rash Musculoskeletal: Denies: pain Allergies: Coded Allergies: No Known Allergies (Unverified , 08/15/19) All Systems: reviewed and negative except above Subjective care noted and reviewed changes noted Objective Last 24 Hour Vital Signs Date Time Temp Pulse Resp B/P (MAP) Pulse Ox O2 Delivery O2 Flow Rate FiO2 12/12/19 06:17 97.7 12/12/19 04:00 97.7 73 20 107/57 (74) 97 12/12/19 00:00 97.9 63 18 89/52 (64) 98 12/11/19 22:30 97.9 12/11/19 20:24 Room Air 12/11/19 20:18 97.9 64 18 94/59 (71) 98 12/11/19 12:00 97.3 63 16 110/56 (74) 98 12/11/19 09:37 Room Air Intake and Output 12/11/19 12/12/19 19:00 07:00 Intake Total 480 ml 360 ml Output Total 800 ml 600 ml Balance -320 ml -240 ml Intake Oral 480 ml Other 360 ml Output Urine Total 800 ml 600 ml # Voids 2 General Appearance: no acute distress HEENT: normocephalic Respiratory: chest wall non-tender, lungs clear, normal breath sounds, no respiratory distress Cardiovascular: normal peripheral pulses, regular rhythm Abdomen: normal bowel sounds, soft, non tender Extremities: no cyanosis, no clubbing, no edema Current Medications Medications (Trade) Dose Ordered Sig/Mya Route PRN Reason Start Time Stop Time Status Last Admin Dose Admin Acetaminophen/ Hydrocodone Bitart ([place] 5/325) 1 tab Q6H PRN ORAL Severe Pain (Pain Scale 7-10) 12/10/19 09:00 12/17/19 08:59 12/12/19 05:47 Apixaban (Eliquis) 2.5 mg BID ORAL 11/24/19 09:00 02/22/20 08:59 12/11/19 18:32 Bisacodyl (Dulcolax) 10 mg DAILYPRN PRN RECTAL Constipation 11/24/19 07:45 02/22/20 07:44 Chlorhexidine Gluconate (Simran-Hex 2%) 1 applic DAILY@1999 TOPIC 11/13/19 20:00 02/11/20 19:59 12/11/19 20:30 Desmopressin Acetate (Ddavp) 1 spray DAILY NASAL 11/14/19 09:00 02/07/20 17:59 12/11/19 08:36 Dextrose (Dextrose 50%) 25 ml Q30M PRN IV Hypoglycemia 11/05/19 13:30 01/21/20 17:29 Dextrose (Dextrose 50%) 50 ml Q30M PRN IV Hypoglycemia 11/05/19 13:30 01/21/20 17:29 Famotidine (Pepcid) 20 mg DAILY ORAL 11/06/19 09:00 01/28/20 09:29 12/11/19 08:37 Ferrous Sulfate (Feosol) 325 mg DAILY ORAL 11/06/19 09:00 01/22/20 08:59 12/11/19 08:37 Fludrocortisone Acetate (Florinef) 0.1 mg DAILY ORAL 11/15/19 09:00 12/15/19 08:59 12/11/19 08:37 Magnesium Hydroxide (Mom) 30 ml HSPRN PRN ORAL Constipation 11/13/19 11:15 12/13/19 11:14 Midodrine (Pro-Amatine) 10 mg EVERY 8 HOURS ORAL 11/05/19 14:00 01/21/20 17:59 12/12/19 05:10 Naloxone HCl (Narcan) 0.2 mg Q2M PRN IVP RESPRITORY DEPRESSION RR<8 11/24/19 10:15 02/22/20 10:14 Senna/Docusate Sodium (Haley-Colace) 1 tab TWICE A DAY ORAL 11/24/19 09:00 12/24/19 08:59 12/11/19 18:32 Sodium Hypochlorite (Dakin's Quarter Strength) 1 applic DAILY TOPIC 12/01/19 09:00 12/31/19 08:59 12/11/19 18:34 Zinc Sulfate (Zinc Sulfate) 220 mg DAILY ORAL 11/06/19 09:00 01/22/20 08:59 12/11/19 08:37 Assessment/Plan Assessment/Plan Assessment/Plan IMPRESSION: 1. Septic shock. resolved 2. Complicated UTI 3. Paraplegia. 4. Sacral decubitus. 5. USP resident. 6. Hypoxemia 7. Pneumonia treated DISCUSSION: monitor clinically oxygen as needed; currently off monitor imaging as needed ID to clear dc planning impression, plan, and exam edited and reviewed in detail care discussed with Carlos Pope MD Dec 12, 2019 08:15
--- NOTE | 2019-12-12 08:58 | Nephrology Progress Note ---
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 - improved with desmporessin #Shock #UTI # infected sacral pressure ulcer #Acute metabolic encephalopathy #Paraplegia #Sacral pressure ulcer #Hypokalemia #Anemia - REFUSING LABS - continue florinef 0.1mg daily -Continue desmopressin nasal - continue salt tabs 1g TID - continue midodrine 10 TID - endocrine eval noted - r/o adrenal insuffiency - antibiotics per ID - monitor lytes - avoid nephrotoxins - daily weights - strict I&Os time spent 40 min- greater than 50% on care coordination and counseling Subjective Subjective REFUSING LABS on florinef 0.1mg daily Bp stable on nasal desmopressin on salt tabs Objective Objective Last 24 Hour Vital Signs Date Time Temp Pulse Resp B/P (MAP) Pulse Ox O2 Delivery O2 Flow Rate FiO2 12/12/19 06:17 97.7 12/12/19 04:00 97.7 73 20 107/57 (74) 97 12/12/19 00:00 97.9 63 18 89/52 (64) 98 12/11/19 22:30 97.9 12/11/19 20:24 Room Air 12/11/19 20:18 97.9 64 18 94/59 (71) 98 12/11/19 12:00 97.3 63 16 110/56 (74) 98 12/11/19 09:37 Room Air Intake and Output 12/11/19 12/12/19 19:00 07:00 Intake Total 480 ml 360 ml Output Total 800 ml 600 ml Balance -320 ml -240 ml Intake Oral 480 ml Other 360 ml Output Urine Total 800 ml 600 ml # Voids 2 Height (Feet): 5 Height (Inches): 7.00 Weight (Pounds): 114 Sienna Georges M.D. Dec 12, 2019 08:58
[2019-12-12] MEDS: Dakin's 0.125% Soln (Quarter Strength) 16oz TOPIC SCH (09:53)
[2019-12-12] MEDS: Eliquis 2.5mg tablet ORAL SCH (09:54)
[2019-12-12] MEDS: Docusate Sod/Senna tab ORAL SCH (09:54)
[2019-12-12] MEDS: Desmopressin Nasal 5ml NASAL SCH (09:54)
[2019-12-12] MEDS: Zinc Sulfate 220mg ORAL SCH (09:54)
[2019-12-12 12:00] VITALS: BP 109/60
--- NOTE | 2019-12-12 12:00 | Discharge Summary ---
Discharge Summary Hospital Course Date of Admission Oct 23, 2019 at 15:40 Date of Discharge 12/12/[address] JULIUS JORDAN Rasharon Castellanos is a 59 year old male who was admitted on Oct 23, 2019 at 15:40 for Sepsis Consultations Heme, Pulm, ID, Nephro Hospital Course Physical Exam: General: No acute distress HEENT: EOMI Cardiac: Regular rate and rhythm Lung: Clear to auscultation bilaterally Abdomen: Colostomy bag in place, non-tender Extremities: b/l contractures in lower extremities #Acute Left Popliteal DVT - US LLE DVT 11/23/2019 - Findings: On the left, noncompressible thrombus is seen within the popliteal vein upstream, with resultant cessation of flow. Patient has an IVC filter, will need outpatient plan for removal in the future. Patient is to continue on Eliquis 2.5mg BID till 02/22/20 which was further discussed with Hemeatology. #Septic Shock w/ /MSK/Pulm source ( Proteus, Actinobacter, GPC, fungal UTI, VRE and Sacral Ulcer, ?HCAP) - resolved #Bilateral LE Paraplegia #Sacral pressure ulcer, present on admit Patient was treated with vancomycin, cefepime, and flagyl while inpatient and consult with ID for further management. Patient is off antibiotics at this time as abx course was completed. #Fungal UTI - resolved, s/p treatment - Patient is high risk for fungemia - Diflucan 11/16 - 11/23 #Stage IV Sacral Decubitus Ulcer Cleanse Sacral Wound and R Ischial wounds with Dakin's 0.125% gian. Loosely pack wounds with Hydrogel impregnated Kerlix. Apply Moisture Barrier Paste periwound. Cover with ABD Pads secure with Tegaderm drsg.Daily and prn. Apply Triad Paste to R Hip/R trochanteric areas.Cover with Optifoam drsg. Change every 7 days and prn. Apply Betadine to Medial R Knee. Cover with Optifoam drsg. Change every 7 days and prn. Apply Betadine to R and L Heels. Cover each Heel with Optifoam drsgs. Change every 7 days and prn. Cover Bony Prominences as needed with Optifoam drsgs. Reposition at least every 2 hours or as tolerated[address] Pillow between knees. Off-load heels with pillow. 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 The AM cortisol was normal, however patient continues to have labile blood pressure. Patient was evaluated by Endocrine and Nephrology, plan to continue on Florinef, Salt Tab, Midodrine, and DDAVP. #Anemia, acute on chronic - stable s/p 2 units RBC 10/28. Hematology followed patient while inpatient. There are no signs of overt bleeding currently. Will continue on iron tablets. -Hematology following, no signs of overt bleeding #Chronic Lower extremity pain Likely 2' contractures and prior accident. Continue Gabapentin, [place], Baclofen. # Left colostomy # Chronic Indwelling donohue catheter DVT: eliquis Discharge Condition Upon Discharge: stable Discharge Vital Signs Last Vital Signs Date Time Temp Pulse Resp B/P (MAP) Pulse Ox O2 Delivery O2 Flow Rate FiO2 12/12/19 06:17 97.7 12/12/19 04:00 73 20 107/57 (74) 97 12/11/19 20:24 Room Air Discharge Disposition Patient was discharged to [facility] ([facility]) - Kortney Woods M.D. Dec 12, 2019 12:00
--- NOTE | 2019-12-12 12:32 | Cardiac Electrophysiology PN ---
Assessment/Plan Assessment/Plan 1. S/P Septic shock. Resolved. Now on Midodrine and off antibiotic 2. Bradycardia. Resolved. 3. Paraplegia. 4. Urinary tract infection, 5. Decubitus ulcers with sacral decubitus. 6. S/P Ileostomy/ 7. Polyuria, DI. On Salt tablets 8. Acute left upstream popliteal vein deep venous thrombosis IVC filter in place --> given acute nature, will continue eliquis, if drop in h/h, consider to hold eliquis as has ivc in place FU Dr [place] MCCLURE RN Going to [facility] [place] Subjective Subjective Alert in NAD. Awaiting placement. Objective Last 24 Hour Vital Signs Date Time Temp Pulse Resp B/P (MAP) Pulse Ox O2 Delivery O2 Flow Rate FiO2 12/12/19 09:00 Room Air 12/12/19 08:00 97.5 65 18 91/66 (74) 99 12/12/19 06:17 97.7 12/12/19 04:00 97.7 73 20 107/57 (74) 97 12/12/19 00:00 97.9 63 18 89/52 (64) 98 12/11/19 22:30 97.9 12/11/19 20:24 Room Air 12/11/19 20:18 97.9 64 18 94/59 (71) 98 Intake and Output 12/11/19 12/12/19 19:00 07:00 Intake Total 480 ml 360 ml Output Total 800 ml 600 ml Balance -320 ml -240 ml Intake Oral 480 ml Other 360 ml Output Urine Total 800 ml 600 ml # Voids 2 Objective HEAD AND NECK: No JVD. LUNGS: Coarse rhonchi. CARDIOVASCULAR: Regular S1 and S2 with no gallop. ABDOMEN: Soft. S/P Ileostomy EXTREMITIES: No pitting edema Carloz Estes MD Dec 12, 2019 12:32
--- NOTE | 2019-12-12 13:06 | Surgery Progress Note ---
Surgery Progress Note Subjective Symptoms: improved, tolerating diet, voiding well, passing flatus, BM Objective Last 24 Hour Vital Signs Date Time Temp Pulse Resp B/P (MAP) Pulse Ox O2 Delivery O2 Flow Rate FiO2 12/12/19 09:00 Room Air 12/12/19 08:00 97.5 65 18 91/66 (74) 99 12/12/19 06:17 97.7 12/12/19 04:00 97.7 73 20 107/57 (74) 97 12/12/19 00:00 97.9 63 18 89/52 (64) 98 12/11/19 22:30 97.9 12/11/19 20:24 Room Air 12/11/19 20:18 97.9 64 18 94/59 (71) 98 I&O Intake and Output 12/11/19 12/12/19 18:59 06:59 Intake Total 480 ml 360 ml Output Total 800 ml 600 ml Balance -320 ml -240 ml Intake Oral 480 ml Other 360 ml Output Urine Total 800 ml 600 ml # Voids 2 Dressing: saturated Cardiovascular: RSR Respiratory: clear Abdomen: soft, non-tender, present bowel sounds Extremities: no edema, no tenderness, no cyanosis Plan Problems: (1) Abdominal distension Assessment & Plan: abd distention soft non tender ostomy viable and reduced KUB ordered pending results improved comfortable no complaints okay for diet s tolerated d/c planning much improved d/c plan placement noted cont local care outpatient follwo up for revision of ostomy There is an inferior vena cava filter in place. Bowel gas pattern is unremarkable. Considerable stool is seen in the transverse and distal colon. There is extensive pelvic deformity, with loss of the left femoral head, chronic dislocation of the left femur, and extensive pelvic deformity, particularly on the left. Adi project over the upper pelvis Impression: Possible constipation. pending placement Nonobstructed bowel gas pattern. Moderate fecal retention of the ascending colon and sigmoid colon. The degree of stool burden has increased from October 25, 2019. IVC filter, incidentally noted. Partial subluxation of the right hip. Osteotomy of the proximal left femur with deformity of the bilateral pubic rami and left acetabulum, unchanged. 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 [place] Shaped, Full Thickness Sacral Pressure Injury which extends into L ischium. (L)15.4cm x (W)18cm x (D)2.4cm, Undermining clockwise 10-2 by 7.7cm @11o'clock. Base of wound is moist,pink with scattered slough at base of wound. Bone is palpable at the Base. No odor or exudate noted. Scattered partial thickness wounds and Serous filled blisters noted to R trochanteric /R Hip areas. Historical scar noted to L groin, L Hip L Buttocks. Bony protrusion noted at L Hip. Full thickness Pressure Injury R Ischium(L)5.4cm x(W)6.9cm x (D)1.8cm ,Undermining clockwise 1-4 by 2.7cm @2o'clock, Tunneling@7o'clock 2.9cm. Base of wound is moist pink with scattered slough. Scattered slough noted along borders. NO odor or exudate noted. Stable dry eschar noted to medial R knee 0.7cm x (W)0.4cm. Periwound is erythematous and indurated. No elevation in skin temp noted. L heel has shaved appearance secondary to Hx of Pressure Injuries. Base of heel is pale pink. Bone is palpable. Small area of slough noted within compromised area(L)0.6cm x (W)0.8cm. L Heel Also has shaved appearance with hypertrophic scarring. Base of compromised area is pale pink, Bone is palpable, with scattered loose, dry and scaly skin. Patient's wound remains very large extensive and requires significant amount of care. Continued care of the wounds have been provided though patient is having continence through the anus at this time again despite diversion. Wounds remain saturated times and great nursing care is being provided unfortunately inevitable decline is still significantly potential given his overall condition. Tx.Plan: Cleanse Sacral Wound and R Ischial wounds with Dakin's 0.125% gian. Loosely pack wounds with Hydrogel impregnated Kerlix. Apply Moisture Barrier Paste periwound. Cover with ABD Pads secure with Tegaderm drsg.Daily and prn. Apply Triad Paste to R Hip/R trochanteric areas.Cover with Optifoam drsg. Change every 7 days and prn. Apply Betadine to Medial R Knee. Cover with Optifoam drsg. Change every 7 days and prn. Apply Betadine to R and L Heels. Cover each Heel with Optifoam drsgs. Change every 7 days and prn. Cover Bony Prominences as needed with Optifoam drsgs. Reposition at least every 2 [address] as tolerated[address] Pillow between knees. Off-load heels with pillow. APM/SUMI Mattress overlay DAILY ESTIMATED NEEDS: Needs based on Advanced wounds, wt loss/ 40.18kg 35-40 kcals/kg 4464-8156 total kcals 1.5-2.0 g protein/kg 60-80 g total protein 25-35ml/kcal mL/kg 2544-6757 total fluid mLs NUTRITION DIAGNOSIS: Increased kcal/prot/micronutrients needs R/T wound healing and underweight status as evidenced by pt admitted w/ multiple advanced wounds, refer to WC eval, pt now w/ further 3% unfavorable wt loss, currently BMI underweight per guidelines, @62% of [place] Body Weight. CURRENT DIET: Regular PO DIET RECOMMENDATIONS: REGULAR, texture as tolerated or per [facility] [employer] + Ensure Enlive TID w/ meals ADDITIONAL RECOMMENDATIONS: * Per SNF: HT=66" WT=88lbs; -> vs current EMR wt =120# -> Recalibrate bed scale for accurate wts * Continue Ensure TID, whole milk TID w/ meals * Monitor for continued improved/good Po intake * Wound healing:add MVI w/ min qdaily Continue w/ ZnSO4, Vit C, and Amari BID * Monitor Na, need for fluid restriction - (132 improved, on nacl) (15) SEAN (acute kidney injury) (16) Ileostomy prolapse Assessment & Plan: currently reduced but abd distended pending films films reviewed improved okay for diet d/c planning There is what appears to be a diverting colostomy of the distal sigmoid in the left lower quadrant. There is distention of the rectum with feces, rectal diameter 70 mm. There is some thickening of the rectal wall. The appendix is not definitely visualized, but no findings to suggest acute appendicitis are evident. There is considerable stool throughout the colon. There appears to be rectal incontinence of stool despite the diverting colostomy. Cornelius Salgado Dec 12, 2019 13:06
== END 2019-12-12 15:00 | DRG 720 ==
LOC: EDBD 15:07 → EDBEDREQ 15:26 → EMR 15:30 → UNDOADMIN 15:40 → 2E 15:40 → ICU 15:40 → EDBEDREQ 16:23 → 2W 10-31 22:30 → 2E 11-04 07:53 → 4E 11-05 13:17
PROC: 05HM33Z Insertion of Infusion Device into Right Internal Jugular Vein, Percutaneous Approach (ICD-10-PCS; principal; 2019-10-23)
PROC: B518ZZA Fluoroscopy of Superior Vena Cava, Guidance (ICD-10-PCS; 2019-11-13)
PROC: 02HV33Z Insertion of Infusion Device into Superior Vena Cava, Percutaneous Approach (ICD-10-PCS; 2019-11-13)
DX: A41.9 Sepsis, unspecified organism (principal); E43 Unspecified severe protein-calorie malnutrition; R65.21 Severe sepsis with septic shock; G93.41 Metabolic encephalopathy; G82.20 Paraplegia, unspecified; N39.0 Urinary tract infection, site not specified; L89.213 Pressure ulcer of right hip, stage 3; Z68.1 Body mass index [BMI] 19.9 or less, adult; L89.154 Pressure ulcer of sacral region, stage 4; R00.1 Bradycardia, unspecified; E87.6 Hypokalemia; N17.9 Acute kidney failure, unspecified; D68.9 Coagulation defect, unspecified; M79.2 Neuralgia and neuritis, unspecified; I82.432 Acute embolism and thrombosis of left popliteal vein; K56.41 Fecal impaction; B49 Unspecified mycosis; D47.3 Essential (hemorrhagic) thrombocythemia; R50.9 Fever, unspecified; E87.1 Hypo-osmolality and hyponatremia
CPT/HCPCS: 36415; 36569; 71045; 74018; 74177; 76937; 80048; 80053; 80150; 80202; 81001; 81003; 82024; 82378; 82533; 82550; 82553; 82570; 82728; 82962; 83540; 83550; 83605; 83615; 83690; 83735; 83935; 84100; 84133; 84300; 84443; 84484; 85007; 85025; 85044; 85610; 85730; 86850; 86900; 86901; 86920; 87040; 87070; 87081; 87086; 87181; 93005; 93306; 93970; 96365; 96367; 96368; 99291; C9399; J7030; J8499; U0002